=== PATIENT | female | born 1945 | race Caucasian/White ===

== ENCOUNTER → 2017-10-14 11:24 | Outpatient (CLI) | payer MEDICARE, SELFPAY ==
[2017-10-14 14:27] LABS: Absolute Lymphocyte Count 1.92 X10^3/ul (0.83-4.51); Absolute Neutrophil Count 4.6 X10^3/uL (2.0-7.7); Basophil# 0.07 X10^3/uL; Basophil% 0.9 % (0-1); Eosinophil# 0.37 X10^3/uL; Eosinophils% 4.9 % (0-5); Hematocrit 42.3 % (37-47); Hemoglobin 13.1 g/dl (12.0-15.0); Lymphocyte # 1.92 X10^3/ul (4.0); Lymphocyte % 25.6 % (19-41); Mean Corpuscular Hgb 30.6 pg (27.0-32.0); Mean Corpuscular Volume 98.8 fL (81-99); Monocyte# 0.49 X10^3/uL; Monocyte% 6.5 % (0-10); Neutrophil # 4.63 X10^3/uL (2.7-7.7); Neutrophil % 61.8 % (47-70); Platelet Count 273 K/mm3 (150-450); RBC Distribution Width SD 52.9 fl (35.1-43.9); Red Blood Count 4.28 M/mm3 (4.2-5.4); White Blood Count 7.5 K/mm3 (4.4-11.0)
[2017-10-14 14:32] LABS: POSITIVE COUNT NO; POSITIVE DIFFERENTIAL NO; POSITIVE MORPHOLOGY NO
[2017-10-14 14:33] LABS: ALB/GLOB Ratio 0.9 RATIO (0.9-2.4); AST(SGOT) 21 U/L (15-37); Alanine Aminotransfer ALT/SGPT 28 U/L (12-78); Albumin, Serum 3.6 g/dL (3.4-5.0); Alkaline Phosphatase 127 U/L (45-117); Anion Gap 8 (5-15); BUN 18 mg/dL (7-18); BUN/Creat Ratio 17.5 RATIO (10-20); Calcium,Total 9.1 mg/dL (8.5-10.1); Chloride 103 mmol/L (98-107); Cholesterol 268 mg/dL (200); Creatinine, Serum 1.03 mg/dL (0.55-1.02); EST Glomerular Filtration Rate 56 mL/min (>60); Est Glom Filt Rate - Afr Amer 68 mL/min (>60); Glucose 105 mg/dL (70-110); High Density Lipoprotein 49 mg/dL; Potassium 4.3 mmol/L (3.5-5.1); Protein, Total 7.6 g/dL (6.4-8.2); Sodium Level 139 mmol/L (136-145); Triglycerides 209 mg/dL; Very Low Density Lipoprotein 42 mg/dL (5-40)
[2017-10-14 14:50] LABS: Hemoglobin A1c 5.9 % (4.2-6.3)
[2017-10-15 09:33] LABS: Vitamin D,25 Hydroxy 17.9 ng/mL
== END ==
PROVIDERS: Family Provider Family Medicine; PCP Family Medicine; Visit Provider Family Medicine
DX: I10 Essential (primary) hypertension (principal); E55.9 Vitamin D deficiency, unspecified; R73.01 Impaired fasting glucose
CPT/HCPCS: 36415; 80053; 80061; 82306; 83036; 85025

== ENCOUNTER → 2018-01-19 13:10 | Outpatient (CLI) | payer MEDICARE, SELFPAY ==
[2018-01-19 14:15] LABS: Absolute Lymphocyte Count 1.73 X10^3/ul (0.83-4.51); Absolute Neutrophil Count 3.8 X10^3/uL (2.0-7.7); Basophil# 0.04 X10^3/uL; Basophil% 0.6 % (0-1); Eosinophil# 0.61 X10^3/uL; Eosinophils% 9.1 % (0-5); Hematocrit 41.5 % (37-47); Hemoglobin 12.7 g/dl (12.0-15.0); Lymphocyte # 1.73 X10^3/ul (4.0); Lymphocyte % 25.7 % (19-41); Mean Corp Hgb Conc 30.6 g/gl (32-36); Mean Corpuscular Hgb 30.7 pg (27.0-32.0); Mean Corpuscular Volume 100.2 fL (81-99); Mean Platelet Vol. 10.3 fl (6.2-12.0); Monocyte# 0.52 X10^3/uL; Monocyte% 7.7 % (0-10); Neutrophil # 3.81 X10^3/uL (2.7-7.7); Neutrophil % 56.6 % (47-70); POSITIVE COUNT NO; POSITIVE DIFFERENTIAL NO; POSITIVE MORPHOLOGY NO; Platelet Count 222 K/mm3 (150-450); RBC Distribution Width CV 15.1 % (11.6-14.6); RBC Distribution Width SD 54.7 fl (35.1-43.9); Red Blood Count 4.14 M/mm3 (4.2-5.4); White Blood Count 6.7 K/mm3 (4.4-11.0)
[2018-01-19 14:38] LABS: ALB/GLOB Ratio 0.9 RATIO (0.9-2.4); AST(SGOT) 16 U/L (15-37); Alanine Aminotransfer ALT/SGPT 19 U/L (13-56); Albumin, Serum 3.4 g/dL (3.2-5.0); Alkaline Phosphatase 124 U/L (45-117); Anion Gap 7 (5-15); BUN 13 mg/dL (7-18); BUN/Creat Ratio 14.9 RATIO (10-20); Calcium,Total 8.6 mg/dL (8.5-10.1); Chloride 106 mmol/L (98-107); Creatinine, Serum 0.87 mg/dL (0.55-1.02); EST Glomerular Filtration Rate 68 mL/min (>60); Est Glom Filt Rate - Afr Amer 82 mL/min (>60); Globulin 3.8 g/dL (2.2-4.2); Glucose 95 mg/dL (74-106); Potassium 4.1 mmol/L (3.5-5.1); Protein, Total 7.2 g/dL (6.4-8.2); Sodium Level 142 mmol/L (136-145)
== END ==
PROVIDERS: Family Provider Family Medicine; PCP Family Medicine; Visit Provider Internal Medicine Rheumatology
DX: M05.70 Rheumatoid arthritis with rheumatoid factor of unspecified site without organ or systems involvement (principal); Z79.899 Other long term (current) drug therapy; M21.40 Flat foot [pes planus] (acquired), unspecified foot; H35.30 Unspecified macular degeneration; I10 Essential (primary) hypertension; G47.00 Insomnia, unspecified; M51.37 Other intervertebral disc degeneration, lumbosacral region
CPT/HCPCS: 36415; 80053; 85025

== ENCOUNTER → 2018-02-11 11:57 | Outpatient (CLI) | payer MEDICARE, SELFPAY ==
[2018-02-11 14:56] LABS: Cholesterol 176 mg/dL (200); High Density Lipoprotein 50 mg/dL; Triglycerides 153 mg/dL; Very Low Density Lipoprotein 31 mg/dL (5-40)
[2018-02-11 14:59] LABS: Vitamin D,25 Hydroxy 52.2 ng/mL (29.95-100.01)
== END ==
PROVIDERS: Family Provider Family Medicine; PCP Family Medicine; Visit Provider Family Medicine
DX: E78.5 Hyperlipidemia, unspecified (principal); E55.9 Vitamin D deficiency, unspecified
CPT/HCPCS: 36415; 80061; 82306

== ENCOUNTER → 2018-04-09 14:50 | Outpatient (CLI) | payer MEDICARE, SELFPAY ==
[2018-04-09 17:47] LABS: Absolute Lymphocyte Count 1.39 X10^3/ul (0.83-4.51); Absolute Neutrophil Count 4.5 X10^3/uL (2.0-7.7); Basophil# 0.05 X10^3/uL; Basophil% 0.8 % (0-1); Eosinophil# 0.36 X10^3/uL; Eosinophils% 5.4 % (0-5); Hematocrit 40.3 % (37-47); Hemoglobin 12.7 g/dl (12.0-15.0); Lymphocyte # 1.39 X10^3/ul (4.0); Mean Corp Hgb Conc 31.5 g/gl (32-36); Mean Corpuscular Hgb 31.2 pg (27.0-32.0); Mean Platelet Vol. 10.8 fl (6.2-12.0); Monocyte# 0.33 X10^3/uL; Neutrophil # 4.48 X10^3/uL (2.7-7.7); Neutrophil % 67.5 % (47-70); Platelet Count 259 K/mm3 (150-450); RBC Distribution Width CV 14.9 % (11.6-14.6); RBC Distribution Width SD 52.1 fl (35.1-43.9); Red Blood Count 4.07 M/mm3 (4.2-5.4); White Blood Count 6.6 K/mm3 (4.4-11.0)
[2018-04-09 17:54] LABS: ALB/GLOB Ratio 0.9 RATIO (0.9-2.4); AST(SGOT) 27 U/L (15-37); Alanine Aminotransfer ALT/SGPT 29 U/L (13-56); Albumin, Serum 3.4 g/dL (3.2-5.0); Alkaline Phosphatase 122 U/L (45-117); Anion Gap 8 (5-15); BUN 17 mg/dL (7-18); BUN/Creat Ratio 16.5 RATIO (10-20); Calcium,Total 9.2 mg/dL (8.5-10.1); Chloride 105 mmol/L (98-107); Creatinine, Serum 1.03 mg/dL (0.55-1.02); EST Glomerular Filtration Rate 56 mL/min (>60); Est Glom Filt Rate - Afr Amer 68 mL/min (>60); Globulin 3.8 g/dL (2.2-4.2); Glucose 149 mg/dL (74-106); Potassium 4.1 mmol/L (3.5-5.1); Protein, Total 7.2 g/dL (6.4-8.2); Sodium Level 140 mmol/L (136-145)
[2018-04-09 17:58] LABS: POSITIVE COUNT NO; POSITIVE DIFFERENTIAL NO; POSITIVE MORPHOLOGY NO
== END ==
PROVIDERS: Family Provider Family Medicine; PCP Family Medicine; Visit Provider Internal Medicine Rheumatology
DX: M05.70 Rheumatoid arthritis with rheumatoid factor of unspecified site without organ or systems involvement (principal); Z79.899 Other long term (current) drug therapy; M21.40 Flat foot [pes planus] (acquired), unspecified foot; H35.30 Unspecified macular degeneration; I10 Essential (primary) hypertension; G47.00 Insomnia, unspecified; M51.37 Other intervertebral disc degeneration, lumbosacral region
CPT/HCPCS: 36415; 80053; 85025

== ENCOUNTER → 2018-05-25 13:22 | Outpatient (CLI) | payer MEDICARE, SELFPAY ==
[2018-05-25 15:47] LABS: Vitamin B12 287 pg/mL (211-911)
== END ==
PROVIDERS: Family Provider Family Medicine; PCP Family Medicine; Visit Provider Family Medicine
DX: R53.83 Other fatigue (principal)
CPT/HCPCS: 36415; 82607

== ENCOUNTER → 2018-06-19 13:18 | Outpatient (CLI) | payer MEDICARE, SELFPAY ==
[2018-06-19 14:15] LABS: Absolute Lymphocyte Count 1.79 X10^3/ul (0.83-4.51); Absolute Neutrophil Count 3.9 X10^3/uL (2.0-7.7); Basophil# 0.03 X10^3/uL; Basophil% 0.5 % (0-1); Eosinophil# 0.26 X10^3/uL; Eosinophils% 4.2 % (0-5); Hematocrit 39.4 % (37-47); Lymphocyte # 1.79 X10^3/ul (4.0); Lymphocyte % 29.1 % (19-41); Mean Corp Hgb Conc 30.5 g/gl (32-36); Mean Corpuscular Hgb 30.6 pg (27.0-32.0); Mean Corpuscular Volume 100.5 fL (81-99); Mean Platelet Vol. 10.1 fl (6.2-12.0); Monocyte# 0.12 X10^3/uL; Neutrophil # 3.94 X10^3/uL (2.7-7.7); Platelet Count 260 K/mm3 (150-450); RBC Distribution Width CV 15.7 % (11.6-14.6); RBC Distribution Width SD 57.1 fl (35.1-43.9); Red Blood Count 3.92 M/mm3 (4.2-5.4); White Blood Count 6.2 K/mm3 (4.4-11.0)
[2018-06-19 14:16] LABS: POSITIVE COUNT NO; POSITIVE DIFFERENTIAL NO; POSITIVE MORPHOLOGY NO
[2018-06-19 14:38] LABS: ALB/GLOB Ratio 0.8 RATIO (0.9-2.4); AST(SGOT) 28 U/L (15-37); Alanine Aminotransfer ALT/SGPT 31 U/L (13-56); Albumin, Serum 3.3 g/dL (3.2-5.0); Alkaline Phosphatase 128 U/L (45-117); Anion Gap 8 (5-15); BUN 12 mg/dL (7-18); BUN/Creat Ratio 11.7 RATIO (10-20); Calcium,Total 8.9 mg/dL (8.5-10.1); Chloride 105 mmol/L (98-107); Creatinine, Serum 1.03 mg/dL (0.55-1.02); EST Glomerular Filtration Rate 56 mL/min (>60); Est Glom Filt Rate - Afr Amer 68 mL/min (>60); Globulin 3.9 g/dL (2.2-4.2); Glucose 129 mg/dL (74-106); Protein, Total 7.2 g/dL (6.4-8.2); Sodium Level 143 mmol/L (136-145)
== END ==
PROVIDERS: Family Provider Family Medicine; PCP Family Medicine; Visit Provider Internal Medicine Rheumatology
DX: M05.70 Rheumatoid arthritis with rheumatoid factor of unspecified site without organ or systems involvement (principal); Z79.899 Other long term (current) drug therapy
CPT/HCPCS: 36415; 80053; 85025

== ENCOUNTER → 2018-09-21 14:24 | Outpatient (CLI) | payer MEDICARE, SELFPAY ==
[2018-09-21 15:37] LABS: Absolute Lymphocyte Count 1.77 X10^3/ul (0.83-4.51); Absolute Neutrophil Count 3.1 X10^3/uL (2.0-7.7); Basophil# 0.04 X10^3/uL; Basophil% 0.7 % (0-1); Eosinophil# 0.28 X10^3/uL; Eosinophils% 4.8 % (0-5); Hematocrit 39.1 % (37-47); Lymphocyte # 1.77 X10^3/ul (4.0); Lymphocyte % 30.2 % (19-41); Mean Corp Hgb Conc 30.7 g/gl (32-36); Mean Corpuscular Hgb 31.6 pg (27.0-32.0); Mean Corpuscular Volume 102.9 fL (81-99); Mean Platelet Vol. 10.1 fl (6.2-12.0); Monocyte# 0.62 X10^3/uL; Monocyte% 10.6 % (0-10); Neutrophil # 3.11 X10^3/uL (2.7-7.7); Platelet Count 239 K/mm3 (150-450); RBC Distribution Width CV 15.1 % (11.6-14.6); RBC Distribution Width SD 55.1 fl (35.1-43.9); White Blood Count 5.9 K/mm3 (4.4-11.0)
[2018-09-21 15:49] LABS: ALB/GLOB Ratio 0.9 RATIO (0.9-2.4); AST(SGOT) 13 U/L (15-37); Alanine Aminotransfer ALT/SGPT 19 U/L (13-56); Albumin, Serum 3.4 g/dL (3.2-5.0); Alkaline Phosphatase 124 U/L (45-117); BUN 20 mg/dL (7-18); BUN/Creat Ratio 21.7 RATIO (10-20); Calcium,Total 9.2 mg/dL (8.5-10.1); Chloride 102 mmol/L (98-107); Creatinine, Serum 0.92 mg/dL (0.55-1.02); EST Glomerular Filtration Rate 64 mL/min (>60); Est Glom Filt Rate - Afr Amer 77 mL/min (>60); Globulin 3.9 g/dL (2.2-4.2); Glucose 80 mg/dL (74-106); Potassium 4.6 mmol/L (3.5-5.1); Protein, Total 7.3 g/dL (6.4-8.2); Sodium Level 138 mmol/L (136-145)
[2018-09-21 15:50] LABS: Anion Gap 3 (5-15)
[2018-09-21 16:01] LABS: POSITIVE COUNT NO; POSITIVE DIFFERENTIAL NO; POSITIVE MORPHOLOGY NO
== END ==
PROVIDERS: Internal Medicine Rheumatology; Family Provider Family Medicine; PCP Family Medicine; Referring Provider Family Medicine; Visit Provider Family Medicine
DX: M05.70 Rheumatoid arthritis with rheumatoid factor of unspecified site without organ or systems involvement (principal); Z79.899 Other long term (current) drug therapy; M21.40 Flat foot [pes planus] (acquired), unspecified foot; H35.30 Unspecified macular degeneration; I10 Essential (primary) hypertension; G47.00 Insomnia, unspecified; M51.37 Other intervertebral disc degeneration, lumbosacral region; F11.90 Opioid use, unspecified, uncomplicated; Z51.81 Encounter for therapeutic drug level monitoring
CPT/HCPCS: 36415; 80053; 85025

== ENCOUNTER → 2018-12-16 13:13 | Outpatient (CLI) | payer MEDICARE, SELFPAY ==
[2018-12-16 16:13] LABS: Hemoglobin A1c 5.9 % (4.2-6.3)
[2018-12-16 16:14] LABS: AST(SGOT) 19 U/L (15-37); Alanine Aminotransfer ALT/SGPT 24 U/L (13-56); Albumin, Serum 3.7 g/dL (3.2-5.0); Alkaline Phosphatase 126 U/L (45-117); Anion Gap 7 (5-15); BUN 16 mg/dL (7-18); BUN/Creat Ratio 17.1 RATIO (10-20); Calcium,Total 9.4 mg/dL (8.5-10.1); Chloride 104 mmol/L (98-107); Creatinine, Serum 0.93 mg/dL (0.55-1.02); EST Glomerular Filtration Rate 63 mL/min (>60); Est Glom Filt Rate - Afr Amer 76 mL/min (>60); Globulin 3.8 g/dL (2.2-4.2); Glucose 100 mg/dL (74-106); Potassium 4.4 mmol/L (3.5-5.1); Protein, Total 7.5 g/dL (6.4-8.2); Sodium Level 142 mmol/L (136-145)
[2018-12-16 16:17] LABS: Absolute Lymphocyte Count 1.69 X10^3/ul (0.83-4.51); Absolute Neutrophil Count 3.2 X10^3/uL (2.0-7.7); Basophil# 0.05 X10^3/uL; Basophil% 0.9 % (0-1); Eosinophil# 0.26 X10^3/uL; Eosinophils% 4.6 % (0-5); Hematocrit 41.5 % (37-47); Hemoglobin 12.4 g/dl (12.0-15.0); Lymphocyte # 1.69 X10^3/ul (4.0); Lymphocyte % 29.8 % (19-41); Mean Corp Hgb Conc 29.9 g/gl (32-36); Mean Corpuscular Hgb 30.7 pg (27.0-32.0); Mean Corpuscular Volume 102.7 fL (81-99); Mean Platelet Vol. 10.5 fl (6.2-12.0); Monocyte# 0.42 X10^3/uL; Monocyte% 7.4 % (0-10); Neutrophil # 3.24 X10^3/uL (2.7-7.7); Neutrophil % 56.9 % (47-70); Platelet Count 265 K/mm3 (150-450); RBC Distribution Width CV 14.8 % (11.6-14.6); RBC Distribution Width SD 54.9 fl (35.1-43.9); Red Blood Count 4.04 M/mm3 (4.2-5.4); White Blood Count 5.7 K/mm3 (4.4-11.0)
[2018-12-16 16:18] LABS: Cholesterol 209 mg/dL (200); High Density Lipoprotein 53 mg/dL; Triglycerides 165 mg/dL; Very Low Density Lipoprotein 33 mg/dL (5-40)
[2018-12-16 16:45] LABS: POSITIVE COUNT NO; POSITIVE DIFFERENTIAL NO; POSITIVE MORPHOLOGY NO
== END ==
PROVIDERS: Family Provider Family Medicine; PCP Family Medicine; Referring Provider Internal Medicine Rheumatology; Visit Provider Internal Medicine Rheumatology
DX: M05.732 Rheumatoid arthritis with rheumatoid factor of left wrist without organ or systems involvement (principal); Z79.899 Other long term (current) drug therapy; M21.40 Flat foot [pes planus] (acquired), unspecified foot; H35.30 Unspecified macular degeneration; I10 Essential (primary) hypertension; G47.00 Insomnia, unspecified; M51.37 Other intervertebral disc degeneration, lumbosacral region; E78.5 Hyperlipidemia, unspecified; R73.01 Impaired fasting glucose
CPT/HCPCS: 36415; 80053; 80061; 83036; 85025

== ENCOUNTER → 2019-03-12 | Outpatient (CLI) | payer MEDICARE, SELFPAY ==
[2019-03-12 17:36] LABS: Absolute Lymphocyte Count 2.48 X10^3/ul (0.83-4.51); Absolute Neutrophil Count 5.6 X10^3/uL (2.0-7.7); Basophil# 0.08 X10^3/uL; Basophil% 0.9 % (0-1); Eosinophils% 1.1 % (0-5); Hematocrit 38.3 % (37-47); Hemoglobin 11.9 g/dl (12.0-15.0); Lymphocyte # 2.48 X10^3/ul (4.0); Lymphocyte % 27.8 % (19-41); Mean Corp Hgb Conc 31.1 g/gl (32-36); Mean Corpuscular Hgb 31.3 pg (27.0-32.0); Mean Corpuscular Volume 100.8 fL (81-99); Mean Platelet Vol. 10.7 fl (6.2-12.0); Monocyte# 0.63 X10^3/uL; Monocyte% 7.1 % (0-10); Neutrophil # 5.61 X10^3/uL (2.7-7.7); Neutrophil % 62.9 % (47-70); Platelet Count 244 K/mm3 (150-450); RBC Distribution Width CV 14.4 % (11.6-14.6); RBC Distribution Width SD 51.8 fl (35.1-43.9); White Blood Count 8.9 K/mm3 (4.4-11.0)
[2019-03-12 17:45] LABS: ALB/GLOB Ratio 0.9 RATIO (0.9-2.4); AST(SGOT) 15 U/L (15-37); Alanine Aminotransfer ALT/SGPT 20 U/L (13-56); Albumin, Serum 3.6 g/dL (3.2-5.0); Alkaline Phosphatase 122 U/L (45-117); Anion Gap 6 (5-15); BUN 13 mg/dL (7-18); Chloride 107 mmol/L (98-107); Creatinine, Serum 0.87 mg/dL (0.55-1.02); EST Glomerular Filtration Rate 68 mL/min (>60); Est Glom Filt Rate - Afr Amer 82 mL/min (>60); Globulin 3.8 g/dL (2.2-4.2); Glucose 93 mg/dL (74-106); Potassium 3.7 mmol/L (3.5-5.1); Protein, Total 7.4 g/dL (6.4-8.2); Sodium Level 142 mmol/L (136-145)
[2019-03-12 17:53] LABS: POSITIVE COUNT NO; POSITIVE DIFFERENTIAL NO; POSITIVE MORPHOLOGY NO
== END | disposition home or self-care (01) ==
LOC: MTLAB 15:26
PROVIDERS: Family Provider Family Medicine; PCP Family Medicine; Referring Provider Internal Medicine Rheumatology; Visit Provider Internal Medicine Rheumatology
DX: M05.732 Rheumatoid arthritis with rheumatoid factor of left wrist without organ or systems involvement (principal); Z79.899 Other long term (current) drug therapy; M18.12 Unilateral primary osteoarthritis of first carpometacarpal joint, left hand; M21.40 Flat foot [pes planus] (acquired), unspecified foot; H35.30 Unspecified macular degeneration; I10 Essential (primary) hypertension; G47.00 Insomnia, unspecified; M51.37 Other intervertebral disc degeneration, lumbosacral region
CPT/HCPCS: 36415; 80053; 85025

== ENCOUNTER → 2019-06-14 | Outpatient (CLI) | payer MEDICARE, SELFPAY ==
[2019-06-14 15:15] LABS: Absolute Lymphocyte Count 1.96 X10^3/uL (0.83-4.51); Absolute Neutrophil Count 3.8 X10^3/uL (2.0-7.7); Basophil# 0.06 X10^3/uL; Basophil% 0.9 % (0-1); Eosinophil# 0.27 X10^3/uL; Hematocrit 39.5 % (37-47); Hemoglobin 12.1 g/dL (12.0-15.0); Lymphocyte # 1.96 X10^3/ul (4.0); Lymphocyte % 29.3 % (19-41); Mean Corp Hgb Conc 30.6 g/dL (32-36); Mean Corpuscular Hgb 30.8 pg (27.0-32.0); Mean Corpuscular Volume 100.5 fL (81-99); Mean Platelet Vol. 9.9 fl (6.2-12.0); Monocyte# 0.57 X10^3/uL; Monocyte% 8.5 % (0-10); NRBC Flagged by Analyzer 0 % (0-5); Neutrophil # 3.78 X10^3/uL (2.7-7.7); Neutrophil % 56.4 % (47-70); Platelet Count 254 K/mm3 (150-450); RBC Distribution Width CV 15.5 % (11.6-14.6); Red Blood Count 3.93 M/mm3 (4.2-5.4); White Blood Count 6.7 K/mm3 (4.4-11.0)
[2019-06-14 15:27] LABS: ALB/GLOB Ratio 0.9 RATIO (0.9-2.4); AST(SGOT) 14 U/L (15-37); Alanine Aminotransfer ALT/SGPT 21 U/L (13-56); Albumin, Serum 3.5 g/dL (3.2-5.0); Alkaline Phosphatase 121 U/L (45-117); Anion Gap 8 (5-15); BUN 14 mg/dL (7-18); BUN/Creat Ratio 14.1 RATIO (10-20); Chloride 105 mmol/L (98-107); Creatinine, Serum 0.99 mg/dL (0.55-1.02); EST Glomerular Filtration Rate 58 mL/min (>60); Est Glom Filt Rate - Afr Amer 70 mL/min (>60); Globulin 3.8 g/dL (2.2-4.2); Glucose 103 mg/dL (74-106); Potassium 4.2 mmol/L (3.5-5.1); Protein, Total 7.3 g/dL (6.4-8.2); Sodium Level 141 mmol/L (136-145)
== END | disposition home or self-care (01) ==
LOC: MTLAB 13:23
PROVIDERS: Family Provider Family Medicine; PCP Family Medicine; Referring Provider Internal Medicine Rheumatology; Visit Provider Internal Medicine Rheumatology
DX: M05.70 Rheumatoid arthritis with rheumatoid factor of unspecified site without organ or systems involvement (principal); Z79.899 Other long term (current) drug therapy; M18.12 Unilateral primary osteoarthritis of first carpometacarpal joint, left hand; M21.40 Flat foot [pes planus] (acquired), unspecified foot; H35.30 Unspecified macular degeneration; I10 Essential (primary) hypertension; G47.00 Insomnia, unspecified; M51.37 Other intervertebral disc degeneration, lumbosacral region
CPT/HCPCS: 36415; 80053; 85025

== ENCOUNTER 2019-07-07 21:03 | Inpatient (IN) | payer MEDICARE, SELFPAY ==
[2019-07-07 21:04] VITALS: BP 146/92; PULSE 111; RESP 16; TEMP 36.8; O2SAT 96; BMI 46.4
[2019-07-07 21:36] LABS: Absolute Neutrophil Count 11.7 X10^3/uL (2.0-7.7); Basophil# 0.05 X10^3/uL; Basophil% 0.3 % (0-1); Eosinophil# 0.09 X10^3/uL; Eosinophils% 0.6 % (0-5); Hematocrit 20.8 % (37-47); Hemoglobin 6.6 g/dL (12.0-15.0); Lymphocyte % 13.5 % (19-41); Mean Corp Hgb Conc 31.7 g/dL (32-36); Mean Corpuscular Hgb 32.7 pg (27.0-32.0); Mean Platelet Vol. 10.7 fl (6.2-12.0); Monocyte# 0.76 X10^3/uL; Monocyte% 5.1 % (0-10); NRBC Flagged by Analyzer 0.2 % (0-5); Neutrophil # 11.71 X10^3/uL (2.7-7.7); Neutrophil % 79.3 % (47-70); Platelet Count 240 K/mm3 (150-450); RBC Distribution Width CV 16.2 % (11.6-14.6); RBC Distribution Width SD 59.8 fl (35.1-43.9); Red Blood Count 2.02 M/mm3 (4.2-5.4); White Blood Count 14.8 K/mm3 (4.4-11.0)
[2019-07-07] MEDS: 0.9% Normal Saline 1,000 ML 1000 ML IV (21:39)
[2019-07-07 21:42] LABS: AST(SGOT) 14 U/L (15-37); Alanine Aminotransfer ALT/SGPT 17 U/L (13-56); Albumin, Serum 3.2 g/dL (3.2-5.0); Alkaline Phosphatase 80 U/L (45-117); Anion Gap 8 (5-15); BUN 46 mg/dL (7-18); BUN/Creat Ratio 41.4 RATIO (10-20); Calcium,Total 8.8 mg/dL (8.5-10.1); Chloride 105 mmol/L (98-107); Creatinine, Serum 1.11 mg/dL (0.55-1.02); EST Glomerular Filtration Rate 51 mL/min (>60); Est Glom Filt Rate - Afr Amer 62 mL/min (>60); Estimated Creatinine Clearance 38.98 ml/min; Globulin 3.3 g/dL (2.2-4.2); Glucose 158 mg/dL (74-106); International Normalized Ratio 1.2; Lipase 114 U/L (73-393); Potassium 3.5 mmol/L (3.5-5.1); Protein, Total 6.5 g/dL (6.4-8.2); Prothrombin Time (Protime)PT. 14.5 SECONDS (11.7-14.9); Sodium Level 139 mmol/L (136-145)
[2019-07-07 21:43] LABS: Partial Thromboplast Time 24.8 Seconds (24.1-36.2)
--- NOTE | 2019-07-07 22:38 | PCM.HP.STD ---
Problem List (1) GI bleed Status: Acute Qualifiers: GI bleed type/associated pathology: unspecified gastrointestinal hemorrhage type Qualified Code(s): K92.2 - Gastrointestinal hemorrhage, unspecified (2) Acute blood loss anemia Status: Acute (3) Morbid obesity Status: Chronic (4) HLD (hyperlipidemia) Status: Chronic Qualifiers: Hyperlipidemia type: unspecified Qualified Code(s): E78.5 - Hyperlipidemia, unspecified (5) Asthma Status: Chronic Qualifiers: Asthma severity: unspecified severity Asthma persistence: unspecified Asthma complication type: unspecified Qualified Code(s): J45.909 - Unspecified asthma, uncomplicated (6) Anxiety and depression Status: Chronic (7) Chronic pain syndrome Status: Chronic (8) Hypertension Status: Chronic Qualifiers: Hypertension type: essential hypertension Qualified Code(s): I10 - Essential (primary) hypertension (9) History of rheumatoid arthritis Status: Chronic History of Present Illness Date of Admission: 07/07/19 Chief Complaint: Diarrhea, black stools, lightheaded, dizziness, N/V The patient is a 73 y/o F w/ PMHx: Morbid Obesity, HTN, HLD, Asthma, Anxiety and Depression, Chronic pain syndrome, Rheumatoid Arthritis who presents to the [facility] ED on 07/07/19 with history of ongoing dark black liquid stools with at least 2 times daily with associated abdominal cramping x1 week with episode of nausea and emesis on day of ED presentation only with ongoing progressively worsening weakness, fatigue, dizziness as well as lightheadedness. Patient denies take any routine NSAID, aspirin therapies. Patient denies ever having prior endoscopy. Work-up in the ED included T 98.3, heart rate 111, BP 146/92, respiratory rate 16, 96% on room air, CBC with WBC 14.8, hemoglobin 6.6 with last noted 12.1 on 06/14/19, platelet 240 with left shift, unremarkable coags, CMP with BUN/creatinine 46/1.11, glucose 158, lipase 114, type and cross performed with 1 unit ordered per ED physician. In the ED patient ministered normal saline, pantoprazole. General surgeon, Dr. Matthews consulted per ED and will evaluate. Past Medical History Past Medical History (Chronic Problems): Chronic Problems Morbid obesity (Chronic) HLD (hyperlipidemia) (Chronic) Asthma (Chronic) Anxiety and depression (Chronic) Chronic pain syndrome (Chronic) Morbid obesity with BMI of 40.0-44.9, adult (Chronic) Hyperkalemia (Chronic) Hypertension (Chronic) History of rheumatoid arthritis (Chronic) Allergies adhesive Allergy (Verified 11/17/17 17:06) Other amoxicillin trihydrate [From Augmentin] Allergy (Verified 11/17/17 17:06) Unknown latex Allergy (Verified 11/17/17 17:06) Unknown Penicillins Allergy (Verified 11/17/17 17:06) Unknown potassium clavulanate [From Augmentin] Allergy (Verified 11/17/17 17:06) Unknown tetracycline Allergy (Verified 11/17/17 17:06) Unknown Home Medications: Ambulatory Orders Medication Instructions Recorded Albuterol IH (ProAir) [Proair Hfa] 1 - 2 puff INHALATION Q6H PRN PRN 03/15/15 Hydrochlorothiazide [Hctz] 12.5 mg PO DAILY 03/15/15 Methotrexate 20 mg PO QWEEK 03/15/15 Clonazepam [Klonopin] 1 mg PO HS #30 tablet 03/29/15 Folic Acid 1 mg PO DAILY@0800 #0 tablet 03/29/15 Losartan Potassium [Cozaar] 50 mg PO DAILY #30 tablet 03/29/15 Oxycodone HCl/Acetaminophen 1 tablet PO TID 11/17/17 [Percocet 5/325] Atorvastatin Calcium [Lipitor] 20 mg PO DAILY 07/07/19 Magnesium 400 mg PO DAILY 07/07/19 Oxycodone HCl/Acetaminophen 1 tab PO TID PRN 07/07/19 [Percocet 7.5-325 mg Tablet] Prednisone 10 mg PO PRN PRN 07/07/19 Sulfasalazine 1,000 mg PO BID 07/07/19 Venlafaxine HCl [Venlafaxine HCl 150 mg PO DAILY 07/07/19 ER] Vit A/Vit C/Vit E/Zinc/Copper 2 ea PO DAILY 07/07/19 [Preservision Areds Tablet] Surgical History: appendectomy, dilatation and curettage, - - Lumbar back surgery with hardware, tonsillectomy, appendectomy, bilateral total knee replacement, bilateral total hip replacement, bilateral total shoulder replacement, right hand surgery specifically with replaced knuckles, cataract surgery. 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 Smoking Status: Former smoker - Patient quit cigarette tobacco usage 30 years prior. Tobacco Use: Non-smoker Alcohol: None Drugs: None - *Family History Maternal History Items: - - Patient notes a maternal family history of hypertension and diabetes. Paternal History Items: - - Patient notes a paternal family history of prostate cancer. Review of Systems Constitutional: Reports: Anorexia, Malaise, Weakness, Fatigue. Denies: Chills, Fever, Weight Change HEENT: Denies: Head Aches, Sinus Congestion, Sinus Drainage Cardiovascular: Reports: Light Headedness. Denies: Chest Pain, Palpitations Respiratory: Denies: Cough, Shortness of breath at rest, Sputum production Gastrointestinal: Reports: Abdominal Pain, Diarrhea, Nausea, Melena, Vomiting Genitourinary: Denies: Dysuria Musculoskeletal: Reports: Joint Pain. Denies: Joint Tenderness Skin: Denies: Rash, Wounds Neurological: Denies: Numbness, Tingling, Focal weakness Psychiatric: Reports: Anxiety, Depression. Denies: Homicidal Ideations, Suicidal Ideations Hematologic/ Lymphatic: Reports: Anemia. Denies: Easy Bruising, Easy Bleeding VTE Information - Inpt Only VTE Present on Admission: No VTE Mechan Device Prophylaxis: SCD's VTE Pharm Prophylaxis ordered?: No Reason prophylaxis not ordered:: Medical Contraindication Patient Problems: Active and Suspected Problems GI bleed (Acute) Acute blood loss anemia (Acute) Subjective: Seated upright in ED bed, fatigued appearance, pale pallor, no acute distress currently. Objective: Physical Examination: General: awake, alert, oriented x 3 and cooperative, seated upright in the ED bed, fatigued appearance. Skin: Pale color, turgor, no icterus, cyanosis. HEENT: AT/NC, EOMI, PERRLA, moderately dry MM, no carotid bruits or JVD noted; however, thickened neck makes examination difficult. Lungs: CTA bilaterally, moderate effort, moderate decrease BL bases, no rales, ronchi or wheezing. Heart: Mildly tachycardic with regular rhythm; no gallop, rub audible. Abdomen: soft, morbidly obese, NTTP, ND, hyperactive BS, no HSM; however, habitus makes examination difficult. Extremities: no cyanosis, clubbing, or edema. Neurological: patient awake, alert, oriented x 3; cognitive function intact; pupils equally reactive to light and accomodation; cranial nerves II-XII grossly normal, moving all 4 extremities, no focal deficits, strength moderately to severely global decrease secondary to acute presentation. Psychiatric: affect appears fatigued, no acute evidence of depressive or anxiety feelings. - Physical Exam Vital Signs Temp Pulse Resp BP Pulse Ox 98.3 F 111 H 16 146/92 H 96 07/07/19 21:04 07/07/19 21:04 07/07/19 21:04 07/07/19 21:04 07/07/19 21:04 Oxygen Delivery Method Room Air Weight: 270 lb 11.642 oz Body Mass Index (BMI) 46.4 Laboratory Tests Past 24 Hrs 07/07/19 07/07/19 07/07/19 21:10 21:10 21:10 WBC 14.8 H RBC 2.02 L Hgb 6.6 L Hct 20.8 L MCV 103.0 H MCH 32.7 H MCHC 31.7 L RDW Std Deviation 59.8 H RDW Coeff of Espinoza 16.2 H Plt Count 240 MPV 10.7 Immature Gran % (Auto) 1.200 H Neut % (Auto) 79.3 H Lymph % (Auto) 13.5 L [place] % (Auto) 5.1 Eos % (Auto) 0.6 Baso % (Auto) 0.3 Absolute Neuts (auto) 11.7 H Absolute Lymphs (auto) 2.00 Nucleated RBC % 0.2 PT 14.5 INR 1.2 APTT 24.8 Sodium 139 Potassium 3.5 Chloride 105 Carbon Dioxide 26.0 Anion Gap 8 BUN 46 H Creatinine 1.11 H Estim Creat Clear Calc 38.98 Est GFR (MDRD) Af Amer 62 Est GFR (MDRD) Non-Af 51 L BUN/Creatinine Ratio 41.4 H Glucose 158 H Calcium 8.8 Total Bilirubin 0.20 AST 14 L ALT 17 Alkaline Phosphatase 80 Total Protein 6.5 Albumin 3.2 Globulin 3.3 Albumin/Globulin Ratio 1.0 Lipase 114 Blood Type Antibody Screen Crossmatch 07/07/19 07/07/19 21:10 21:10 WBC RBC Hgb Hct MCV MCH MCHC RDW Std Deviation RDW Coeff of Espinoza Plt Count MPV Immature Gran % (Auto) Neut % (Auto) Lymph % (Auto) [place] % (Auto) Eos % (Auto) Baso % (Auto) Absolute Neuts (auto) Absolute Lymphs (auto) Nucleated RBC % PT INR APTT Sodium Potassium Chloride Carbon Dioxide Anion Gap BUN Creatinine Estim Creat Clear Calc Est GFR (MDRD) Af Amer Est GFR (MDRD) Non-Af BUN/Creatinine Ratio Glucose Calcium Total Bilirubin AST ALT Alkaline Phosphatase Total Protein Albumin Globulin Albumin/Globulin Ratio Lipase Blood Type A POSITIVE Antibody Screen NEGATIVE Crossmatch See Detail Assessment/Plan All Active Problems GI bleed (Acute) Acute blood loss anemia (Acute) 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 1. Acute GI Bleed w/ resultant Acute Blood Loss Anemia: Work-up in the ED included T 98.3, heart rate 111, BP 146/92, respiratory rate 16, 96% on room air, CBC with WBC 14.8, hemoglobin 6.6 with last noted 12.1 on 06/14/19, platelet 240 with left shift, unremarkable coags, CMP with BUN/creatinine 46/1.11, glucose 158, lipase 114, type and cross performed with 1 unit ordered per ED physician. Will admit to PCU, maintain on monitor, continue IVFs, continue planned 2 u PRBC administration with continued serial H+H, maintain on IV PPI. General surgery consulted, Dr. Matthews. 2. Hyperglycemia: Glucose upon admission 158, will continue to monitor, defer hemoglobin A1c assessment given acute presentation with anemia as noted #1. 3. Anxiety and depression: Continue home Klonopin and venlafaxine. 4. Chronic pain syndrome: We will continue patient home chronic narcotic therapy. 5. Hypertension: Continue home regimen including Cozaar with strict hold parameters, holding hydrochlorothiazide given recent diarrhea and acute presentation, PRN hydralazine. 6. Hyperlipidemia: Continue home statin regimen. 7. Morbid Obesity: Weight loss and lifestyle changes encouraged, nutrition consulted. 8. Chronic asthma: Notes that she had been more symptomatic when she was still smoking, quit 30 years prior, PRN albuterol, HOB, IS parameters. 9. Rheumatoid arthritis: Maintained outpatient on methotrexate, sulfasalazine and prednisone as needed only. 10. DVT prophylaxis: SCDs, defer any chemoprophylaxis given acute presentation #1. 11. CODE status: Patient does have living will, healthcare power of knitter wire mesh needs to be set up and this was discussed at length and patient agrees. Discussed CODE status at length including difference between FULL code, DNR-CCA and DNR-CC status. Following discussions about the differences in these status, requested attenuation of DNR-CCA, no intubation status. Advanced Care Planning Face to Face Time: 16 minutes. Code Visit Inpatient E&M: 36525 Init Hosp L3 Procedures: 84381 Advncd Care Plan 30 Min
--- NOTE | 2019-07-07 22:53 | ED.VISSUMM ---
- ER Visit Summary Date of Service: 07/07/19 Chief Complaint: Diarrhea, black stools History of Present Illness: The patient is a 73 F who presents with diarrhea and black stools. This is been ongoing for a week. She states that when she has stools it is dark and bloody. She feels dizzy and faint. She did vomit black tonight. She has abdominal pain which is cramping, only when she has bowel movements. Denies any fevers. She is never had a colonoscopy. She has not been on any blood thinners. Physical Examination: Vital signs reviewed. HEENT exam unremarkable. Heart is tachycardic and regular rhythm without murmurs. Lungs are clear to auscultation. Abdomen is soft and nontender. Extremities reveal no edema. Skin exam normal. Neurologic exam normal. Test Results: Hemoglobin is 6.6, down from 12 earlier this year. White blood cell count 14.8. Glucose 158, creatinine 1.11 Emergency Department Course and Treatment: The patient source of her anemia is likely her GI bleed. I will transfuse her 1 unit of blood due to her hemoglobin below 7. Patient was given a dose of Protonix. I discussed with Dr. Matthews who will see the patient in consult. Patient was discussed with the hospitalist for admission. Treatment Plan: [] Disposition: Admit Impression: GI bleed, anemia requiring transfusion This note was generated with [employer] dictation software. It may contain incorrect words, spelling, and punctuation that were not noted in review of the chart prior to signing ED Disposition - Plan for ED Patient: Referrals: Marciano Anaya DO [Primary Care Provider] -
[2019-07-07 23:09] VITALS: BP 146/60; PULSE 106; RESP 25; O2SAT 98
[2019-07-07 23:28] VITALS: BP 154/77; PULSE 108; RESP 16; TEMP 37.1; O2SAT 95
[2019-07-07 23:36] VITALS: BMI 45.6
[2019-07-07 23:43] VITALS: BP 154/77; PULSE 104; RESP 16; TEMP 37.2; O2SAT 96
[2019-07-08] VITALS (19 sets, daily range): BP systolic 120–160; BP diastolic 51–83; PULSE 83–106; RESP 16–18; TEMP 36.7–36.8; O2SAT 93–97; BMI 45.6
[2019-07-08] MEDS: 0.9% NaCl Peripheral Flush Adult/Peds IV ×2 (05:44→23:51)
[2019-07-08] MEDS: 0.9% Normal Saline 1,000 ML 100 ML IV ×2 (05:44→16:05)
[2019-07-08 07:26] LABS: Hemoglobin 7.4 g/dL (12.0-15.0)
[2019-07-08 07:59] LABS: Anion Gap 8 (5-15); BUN 34 mg/dL (7-18); Calcium,Total 8.2 mg/dL (8.5-10.1); Chloride 107 mmol/L (98-107); Creatinine, Serum 0.85 mg/dL (0.55-1.02); EST Glomerular Filtration Rate 70 mL/min (>60); Est Glom Filt Rate - Afr Amer 84 mL/min (>60); Glucose 119 mg/dL (74-106); Potassium 3.6 mmol/L (3.5-5.1); Sodium Level 141 mmol/L (136-145)
--- NOTE | 2019-07-08 09:44 | CASEMGMT ---
Patient has a Healthcare Living Will on file at [facility]. She does not have a Healthcare POA. Arlin WALKER MSW
--- NOTE | 2019-07-08 10:17 | PCM.PROGNOTE ---
<Ananya Mar - Last Filed: 07/08/19 10:27> Patient Problems: Active and Suspected Problems GI bleed (Acute) Acute blood loss anemia (Acute) Subjective: Patient seen and examined. Denies further dark stool. Denies nausea, vomiting. Denies abdominal pain. States her dizziness, lightheadedness is improved since being admitted. - Physical Exam General: Alert, Oriented x3, Cooperative HEENT: Atraumatic, PERRLA, EOMI, Normocephalic Neck: Supple, No JVD, Negative Carotid Bruits Lungs: Clear to auscultation, Normal air movement Cardiovascular: Regular rate, Regular Rhythm, Normal S1, Normal S2, No murmurs Abdomen: Bowel Sounds Present, Soft, Non Tender, Non-Distended, Obese Extremities: No clubbing, No cyanosis, No edema, Capillary Refill Less than 3 Seconds Skin: No rashes, No breakdown Musculoskeletal: No Tenderness to Palpation of Joints or Extremities Neurological: Cranial nerves II-XII grossly intact, Neuro grossly intact Psych/Mental Status: Normal Affect, Appropriate Vital Signs Temp Pulse Resp BP Pulse Ox 98.1 F 105 H 16 143/61 H 95 07/08/19 05:30 07/08/19 07:02 07/08/19 05:30 07/08/19 05:30 07/08/19 07:10 Oxygen Delivery Method Room Air Weight: 265 lb 10.512 oz Body Mass Index (BMI) 45.6 Intake and Output for Last 24 Hours 07/06/19 07/07/19 07/08/19 23:59 23:59 23:59 Intake Total 1035 / 1035 907.5 / 907.5 Balance 1035 / 1035 907.5 / 907.5 Laboratory Tests Past 24 Hrs 07/07/19 07/07/19 07/07/19 21:10 21:10 21:10 WBC 14.8 H RBC 2.02 L Hgb 6.6 L Hct 20.8 L MCV 103.0 H MCH 32.7 H MCHC 31.7 L RDW Std Deviation 59.8 H RDW Coeff of Espinoza 16.2 H Plt Count 240 MPV 10.7 Immature Gran % (Auto) 1.200 H Neut % (Auto) 79.3 H Lymph % (Auto) 13.5 L [place] % (Auto) 5.1 Eos % (Auto) 0.6 Baso % (Auto) 0.3 Absolute Neuts (auto) 11.7 H Absolute Lymphs (auto) 2.00 Nucleated RBC % 0.2 PT 14.5 INR 1.2 APTT 24.8 Sodium 139 Potassium 3.5 Chloride 105 Carbon Dioxide 26.0 Anion Gap 8 BUN 46 H Creatinine 1.11 H Estim Creat Clear Calc 38.98 Est GFR (MDRD) Af Amer 62 Est GFR (MDRD) Non-Af 51 L BUN/Creatinine Ratio 41.4 H Glucose 158 H Calcium 8.8 Total Bilirubin 0.20 AST 14 L ALT 17 Alkaline Phosphatase 80 Total Protein 6.5 Albumin 3.2 Globulin 3.3 Albumin/Globulin Ratio 1.0 Lipase 114 Blood Type Antibody Screen Crossmatch 07/07/19 07/07/19 07/07/19 21:10 21:10 21:10 WBC RBC Hgb Hct MCV MCH MCHC RDW Std Deviation RDW Coeff of Espinoza Plt Count MPV Immature Gran % (Auto) Neut % (Auto) Lymph % (Auto) [place] % (Auto) Eos % (Auto) Baso % (Auto) Absolute Neuts (auto) Absolute Lymphs (auto) Nucleated RBC % PT INR APTT Sodium Potassium Chloride Carbon Dioxide Anion Gap BUN Creatinine Estim Creat Clear Calc Est GFR (MDRD) Af Amer Est GFR (MDRD) Non-Af BUN/Creatinine Ratio Glucose Calcium Total Bilirubin AST ALT Alkaline Phosphatase Total Protein Albumin Globulin Albumin/Globulin Ratio Lipase Blood Type A POSITIVE Antibody Screen NEGATIVE Crossmatch See Detail See Detail 07/08/19 07/08/19 07:10 07:10 WBC RBC Hgb 7.4 L Hct 23.0 L MCV MCH MCHC RDW Std Deviation RDW Coeff of Espinoza Plt Count MPV Immature Gran % (Auto) Neut % (Auto) Lymph % (Auto) [place] % (Auto) Eos % (Auto) Baso % (Auto) Absolute Neuts (auto) Absolute Lymphs (auto) Nucleated RBC % PT INR APTT Sodium 141 Potassium 3.6 Chloride 107 Carbon Dioxide 26.0 Anion Gap 8 BUN 34 H Creatinine 0.85 Estim Creat Clear Calc 50.90 Est GFR (MDRD) Af Amer 84 Est GFR (MDRD) Non-Af 70 BUN/Creatinine Ratio 40.0 H Glucose 119 H Calcium 8.2 L Total Bilirubin AST ALT Alkaline Phosphatase Total Protein Albumin Globulin Albumin/Globulin Ratio Lipase Blood Type Antibody Screen Crossmatch Medical Necessity - Tobacco Use Smoking Status: Former smoker - Patient quit cigarette tobacco usage 30 years prior. 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 Acute GI bleed with associated acute symptomatic blood loss anemia-hemoglobin 6.6 on admission. Status post 2 units PRBC. Serial H&H. Dr. Matthews consulted. Clear liquid diet. IV PPI. Plan for upper and lower scope tomorrow per surgery. Patient denies history of GI bleed, denies NSAID use. 2. Chronic kidney disease stage II-at baseline, trend BMP. 3. Anxiety/Depression-continue home Klonopin, venlafaxine regimen. 4. Chronic pain syndrome-continue home narcotic regimen. 5. Hypertension-stable, continue home Cozaar regimen. HCTZ on hold. 6. Hyperlipidemia-continue home statin regimen. 7. Morbid obesity-diet and lifestyle modifications encouraged. Nutrition consult. 8. Chronic asthma-as needed albuterol aerosol. 9. Rheumatoid arthritis-continue home methotrexate, sulfasalazine and PRN prednisone. DVT prophylaxis-SCDs This patient was seen by FAUSTO Lee under the supervision of Dr. Interiano. <Bro Interiano - Last Filed: 07/08/19 13:02> - Physical Exam Vital Signs Temp Pulse Resp BP Pulse Ox 98.1 F 105 H 16 143/61 H 95 07/08/19 05:30 07/08/19 07:02 07/08/19 05:30 07/08/19 05:30 07/08/19 07:10 Oxygen Delivery Method Room Air Weight: 120.5 kg Body Mass Index (BMI) 45.6 Intake and Output for Last 24 Hours 07/06/19 07/07/19 07/08/19 23:59 23:59 23:59 Intake Total 1035 / 1035 1535.83 / 1535.83 Balance 1035 / 1035 1535.83 / 1535.83 Laboratory Tests Past 24 Hrs 07/07/19 07/07/19 07/07/19 21:10 21:10 21:10 WBC 14.8 H RBC 2.02 L Hgb 6.6 L Hct 20.8 L MCV 103.0 H MCH 32.7 H MCHC 31.7 L RDW Std Deviation 59.8 H RDW Coeff of Espinoza 16.2 H Plt Count 240 MPV 10.7 Immature Gran % (Auto) 1.200 H Neut % (Auto) 79.3 H Lymph % (Auto) 13.5 L [place] % (Auto) 5.1 Eos % (Auto) 0.6 Baso % (Auto) 0.3 Absolute Neuts (auto) 11.7 H Absolute Lymphs (auto) 2.00 Nucleated RBC % 0.2 PT 14.5 INR 1.2 APTT 24.8 Sodium 139 Potassium 3.5 Chloride 105 Carbon Dioxide 26.0 Anion Gap 8 BUN 46 H Creatinine 1.11 H Estim Creat Clear Calc 38.98 Est GFR (MDRD) Af Amer 62 Est GFR (MDRD) Non-Af 51 L BUN/Creatinine Ratio 41.4 H Glucose 158 H Calcium 8.8 Total Bilirubin 0.20 AST 14 L ALT 17 Alkaline Phosphatase 80 Total Protein 6.5 Albumin 3.2 Globulin 3.3 Albumin/Globulin Ratio 1.0 Lipase 114 Blood Type Antibody Screen Crossmatch 07/07/19 07/07/19 07/07/19 21:10 21:10 21:10 WBC RBC Hgb Hct MCV MCH MCHC RDW Std Deviation RDW Coeff of Espinoza Plt Count MPV Immature Gran % (Auto) Neut % (Auto) Lymph % (Auto) [place] % (Auto) Eos % (Auto) Baso % (Auto) Absolute Neuts (auto) Absolute Lymphs (auto) Nucleated RBC % PT INR APTT Sodium Potassium Chloride Carbon Dioxide Anion Gap BUN Creatinine Estim Creat Clear Calc Est GFR (MDRD) Af Amer Est GFR (MDRD) Non-Af BUN/Creatinine Ratio Glucose Calcium Total Bilirubin AST ALT Alkaline Phosphatase Total Protein Albumin Globulin Albumin/Globulin Ratio Lipase Blood Type A POSITIVE Antibody Screen NEGATIVE Crossmatch See Detail See Detail 07/08/19 07/08/19 07/08/19 07:10 07:10 12:23 WBC RBC Hgb 7.4 L 7.4 L Hct 23.0 L 22.8 L MCV MCH MCHC RDW Std Deviation RDW Coeff of Espinoza Plt Count MPV Immature Gran % (Auto) Neut % (Auto) Lymph % (Auto) [place] % (Auto) Eos % (Auto) Baso % (Auto) Absolute Neuts (auto) Absolute Lymphs (auto) Nucleated RBC % PT INR APTT Sodium 141 Potassium 3.6 Chloride 107 Carbon Dioxide 26.0 Anion Gap 8 BUN 34 H Creatinine 0.85 Estim Creat Clear Calc 50.90 Est GFR (MDRD) Af Amer 84 Est GFR (MDRD) Non-Af 70 BUN/Creatinine Ratio 40.0 H Glucose 119 H Calcium 8.2 L Total Bilirubin AST ALT Alkaline Phosphatase Total Protein Albumin Globulin Albumin/Globulin Ratio Lipase Blood Type Antibody Screen Crossmatch Assessment/Plan This patient was seen in conjunction with FAUSTO Lee . I have independently interviewed and examined the patient and reviewed pertinent historical, laboratory, and other data. Please refer to FAUSTO Lee note for details of this patient's presentation, findings, and recommendations. I have reviewed FAUSTO Lee note and concur with documented findings. In brief, patient is a 73-year-old female admitted with melena. Patient was found to have symptomatic anemia with hemoglobin of 6.6 on admission she was transfused with 2 unit PRBC admitted to a monitored bed with consultation placed to general surgery with plans for patient undergo endoscopic evaluation on 07/09/2019 Physical Examination: GENERAL: cooperative HEENT: Atraumatic; moist oral mucosa EYES; Anicteric, Normal Conjunctiva NECK; supple, normal thyroid, RESPIRATORY: Diminished to auscultation CARDIOVASCULAR: Regular S1 S2, GI: soft, non-tender, normoactive bowel sounds, : No Renal angle tenderness; EXTREMITIES: No edema, no clubbing, NEURO: Awake; no lateralizing signs. SKIN: No Rash PSYCH; Normal affect Assessment: 1. Acute blood loss anemia suspected to be secondary to upper GI bleed 2. Dyslipidemia 3. Essential hypertension 4. Rheumatoid arthritis 5. Mild intermittent asthma 6. Acute renal insufficiency resolved with IV hydration 7. Chronic pain syndrome 8. Obesity with BMI of 45.6 9. Depression with anxiety Recommendations: 1. I have discussed the results of my overview and impressions with the patient 2. Options for management were reviewed Code Visit Inpatient E&M: 89445 Subs Hosp L3
--- NOTE | 2019-07-08 10:19 | CON.PCM_ITS ---
- Consult Date of Consult: 07/08/19 - Reason for Consult Chief Complaint: anemia History of Present Illness: 73 y/o WF presents with anemia. Has noted diarrhea for several days and then noted black tarry stools. Had lower abdominal crampy pain. Also noted epigastric abdominal pain after eating. Presented to ED [facility] with Hgb of 6.6 and mildly elevated WBC. Denies previous endoscopic evaluation. No colon cancer known in family. Has history of PUD, but diagnosed presumptively. Denies hematemesis. Past Medical History: rheumatoid arthritis morbid obesity asthma anxiety/depressive disorder chronic pain syndrome hypertension anemia Past Surgical History: tubes tied appendectomy Medications: albuterol inhaler klonopin folic acid HCTZ cozaar magnesium methotrexate percocet prn prednison sulfasalazine venlafaxine MVI Allergies: amoxicillin, latex, pcn, tetracycline, adhesive Social history: TOB use denies Review of Systems: General - denies fevers, denies weight loss, denies anorexia Cardiovascular denies chest pain, denies history of heart attack Pulmonary has shortness of breath with exertion, denies coughing up blood Gastrointestinal as per HPI, denies fecal incontinence, has history of peptic ulcers, denies swallowing problems Neurological denies seizures, denies history of stroke Genitourinary denies burning with urination, denies blood in urine - had UTI with hospitalization in past Hematological denies spontaneous/prolonged bleeding Skin denies open non healing wounds Musculoskeletal has some back pain, has RA Endocrine denies diabetes, is morbidly obese Psychological no major mood swings Physical examination: Vital signs Temp 98.1 HR 90 BP 155/83 Rr 18 General WD/WN WF in no apparent distress, alert and oriented, not septic appearing HEENT Normocephalic. EOM intact with sclera clear and no icterus noted. Neck is supple with no jugular venous distention noted. Trachea is midline. Lungs clear to auscultation. normal breath sounds in all lung harley. No rales/rhonchi/wheezing noted. No labored breathing noted, such as retractions. No cough heard. Heart normal S1 and S2 auscultated. No rubs/clicks/murmurs noted. Normal size and location by auscultation. Abdomen soft and benign. Normal bowel sounds. Difficult to determine if a ny masses due to body habitus Extremities no pitting edema noted. bilateral lower extremity dependent swelling Genitourinary/Rectal deferred Skin normal skin integrity. Neurological non focal. Psychological normal affect, patient is calm and appropriate Impression: anemia melena history of PUD Discussion/Plan: I have discussed the above with the patient. I have offered upper and lower endoscopy for evaluation. I have explained the procedures to the patient. I have counseled the patient as to the risks of the procedure, including but not limited to: infection, bleeding, injury to any intraabdominal organs, perforation of the GI tract, inability to complete the procedure, complications of anesthesia, etc. the patient understands. She agrees to proceed. Will schedule this for tomorrow. I have answered all questions to the patient?s satisfaction and the patient has no further questions.
--- NOTE | 2019-07-08 10:44 | CASEMGMT ---
RADHA LOVE assessment: Face to Face with patient for initial transition planning/care coordination assessment. RADHA LOVE introduced self and role at [facility], pt voices understanding and consents to assessment at this time. Pt is sitting up in bed in no distress at this time. Pt is A/Ox4 at this time and answers all questions appropriately at this time. Care providers, pharmacy, and demographics verified at this time. Pt presents with loose black stools for the last week. Pt scheduled to have upper and lower scopes on 07/09. PCP: Héctor Specialists: Gonzalo Purcell Pharmacy: [facility]cription Benefit[facility] Living Will/HPOA: Pt has LW on file at [facility] at this time and would like to complete HPOA at this time. Ulises rolle, voices understanding. LNOK: Rae Quinones, daughter; Sharlene Vogel, daughter Living Arrangements: Pt states lives with two daughters and grandson in a 2 story home with stairs and states no concerns at home at this time. Transportation: Pt states daughterSharlene, drives and states that sometimes she misses appointments because her daughter sleeps in, but states no further transportation concerns at this time. DME/HHC: Pt states has the following DME: cane, walkers, raised toilet seat, grab bars, shower chair, and motorized scooter(currently not functional). Pt states does not use any DME for ambulation and states no need for any further DME at this time. Pt states has had [employer] [facility] in the past and has been to [facility] and [facility] in the past. Pt states no concerns with going home at time of discharge. Pt is retired. Pt states does not smoke and rarely drinks ETOH. Pt states no further concerns/needs at this time. CM to follow for any further discharge planning/needs. Advised pt to ask for CM if any further questions/concerns/needs arise, voices understanding. Pt Goal: Home Plan: [place] RADHA LOVE
[2019-07-08] MEDS: sulfaSALAzine 500 MG Tablet 1000 MG PO ×2 (10:55→21:08)
[2019-07-08] MEDS: Losartan Potassium 50 MG Tablet PO (10:55)
[2019-07-08] MEDS: Venlafaxine XR 150 MG Capsule PO (10:55)
[2019-07-08] MEDS: Electrolyte Solution/Peg's 4000 ML 2000 ML PO ×2 (12:03→17:58)
[2019-07-08 12:38] LABS: Hematocrit 22.8 % (37-47); Hemoglobin 7.4 g/dL (12.0-15.0)
--- NOTE | 2019-07-08 13:25 | CASEMGMT ---
Social Work Met with pt in room and assisted pt in completing HCPOA. Pt named pt daughter Rae Quinones as HCPOA. Original given to pt and copy placed in chart. PAUL Molina
--- NOTE | 2019-07-08 18:42 | NURSING ---
Reviewed Yenny Ngo's charting.
[2019-07-08] MEDS: Atorvastatin Calcium 20 MG Tablet PO (21:08)
[2019-07-08] MEDS: oxyCODONE 5 MG Tablet PO (23:50)
[2019-07-08] MEDS: Ondansetron 4 MG/2 ML Vial IV (23:51)
[2019-07-09] VITALS (22 sets, daily range): BP systolic 98–156; BP diastolic 50–86; PULSE 80–104; RESP 16–20; TEMP 35.8–36.8; O2SAT 92–100
[2019-07-09] MEDS: 0.9% Normal Saline 1,000 ML 100 ML IV ×2 (02:57→21:22)
--- NOTE | 2019-07-09 05:55 | EKG12_ITS ---
Test Reason : AM EKG Blood Pressure : / mmHG Vent. Rate : 100 BPM Atrial Rate : 100 BPM P-R Int : 198 ms QRS Dur : 088 ms QT Int : 358 ms P-R-T Axes : 053 044 049 degrees QTc Int : 461 ms Sinus rhythm with occasional Premature ventricular complexes Nonspecific ST abnormality Abnormal ECG Confirmed by DONA WAGNER, SHAN ([id number]), legal editor ANNE MARIE BARLOW ([id number]) on 07/13/2019 11:49:43 AM Referred By: Courtney Rader Confirmed By:SHAN CARCAMO MD
[2019-07-09 06:01] LABS: Hematocrit 22.2 % (37-47); Mean Corp Hgb Conc 31.5 g/dL (32-36); Mean Corpuscular Hgb 31.1 pg (27.0-32.0); Mean Corpuscular Volume 98.7 fL (81-99); Mean Platelet Vol. 10.3 fl (6.2-12.0); Platelet Count 194 K/mm3 (150-450); RBC Distribution Width CV 18.2 % (11.6-14.6); RBC Distribution Width SD 63.5 fl (35.1-43.9); Red Blood Count 2.25 M/mm3 (4.2-5.4); White Blood Count 9.8 K/mm3 (4.4-11.0)
[2019-07-09 06:05] LABS: International Normalized Ratio 1.2; Prothrombin Time (Protime)PT. 14.9 SECONDS (11.7-14.9)
[2019-07-09 06:06] LABS: Partial Thromboplast Time 27.6 Seconds (24.1-36.2)
[2019-07-09] MEDS: sulfaSALAzine 500 MG Tablet 1000 MG PO ×2 (09:17→21:55)
[2019-07-09] MEDS: Venlafaxine XR 150 MG Capsule PO (09:18)
[2019-07-09] MEDS: Losartan Potassium 50 MG Tablet PO (09:18)
--- NOTE | 2019-07-09 12:00 | IMM_PTH ---
PATIENT: SEVERIANO LEE LOC: PCU U#:[id number] AGE/SX: 73/F ROOM: [facility] RE07/07/[address]: Dr. Bro Interiano MD : 1945 BED: 1 DIS: 07/10/2019 SPEC #: [id number] RECD: 07/13/19 09:53 STATUS: TANIA REQ #: [id number] SHAUNA: 07/09/19 12:[address]: Laureen Matthews DEPT: IMMUNOHISTOCHEMISTRY RECD BY: Christina Amato ENTERED: 07/13/19 09:54 SP TYPE: IMMUNO OTHR DR: MD Dr. Bro Santizo MD Dr. Mark Stutzman, DO Tissues: A - Stomach, NOS Procedures: H Pylori (initial) PHYSICIAN & INSTITUTION [place] [id number] SPECIMEN INFORMATION: Tissue Source: A - Antrum biopsy Clinical Info: Anemia, melena, GI bleed Specimen Number: [id number] CPT code: 40730 METHODOLOGY: Deparaffinized sections of prefer/formalin-fixed tissue or PAP/DQ stained slides are incubated with monoclonal/polyclonal antibodies/oligonucleotide probes. Localization is made via biotin free immunoperoxidase method. Appropriate controls are performed and reacted as expected. Results on target cell population are indicated in the following table: RESULTS: ANTIBODY / CLONE RESULT Block A H Pylori (polyclonal) negative These tests were developed and their performance characteristics determined by [facility]. They may not have been cleared or approved by the U.S. Food and Drug Administration. The FDA has determined that such clearance or approval is not necessary. INTERPRETATION: A. Antrum biopsy: Negative for Helicobacter pylori organisms. SJ:grace 07/14/19
--- NOTE | 2019-07-09 12:00 | EGD_PTH ---
PATIENT: SEVERIANO LEE LOC: [facility] U#:[id number] AGE/SX: 73/F ROOM: [facility] RE07/07/[address]: Dr. Bro Interiano MD : 1945 BED: 1 DIS: 07/10/2019 SPEC #: [id number] RECD: 07/09/19 17:19 STATUS: TANIA REQ #: [id number] SHAUNA: 07/09/19 12:[address]: Laureen aMtthews DEPT: SURGICAL PATHOLOGY RECD BY: Elmer Hauser ENTERED: 07/13/19 08:32 SP TYPE: EGD BIOPSY OT DR: MD Dr. Bro Santizo MD Dr. Mark Stutzman, DO Tissues: A - Gastric mucous membrane B - Rectum, NOS Procedures: Surgery Specimen Level IV HEADER OPERATION: Colonoscopy, [place] DIAGNOSIS: Anemia, melena, GI bleed TISSUE SUBMITTED: A - Antrum biopsy for H. pylori and path, B - Rectal polyp MICROSCOPIC DIAGNOSIS A. Antrum biopsy: Mild to moderate gastritis. See microscopic description and comment. B. Rectal polyp, biopsy: Consistent with tubular adenoma with cautery artifacts. Fragments of fecal material. SJ:rg 07/14/19 COMMENT A. The results of immunohistochemistry for Helicobacter pylori will be reported separately ([id number]). MICROSCOPIC DESCRIPTION Slides are reviewed. A. The specimen shows fragments of gastric mucosa with chronic inflammatory cell infiltrates in the lamina propria consisting of lymphocytes and plasma cells, consistent with mild to moderate chronic gastritis. A few minute lymphoid aggregates are noted, favor benign. GROSS DESCRIPTION A - Received in fixative is one container labeled with the patient's name and designated antrum biopsy. The specimen consists of two irregular fragments of light guzmán soft tissue that in aggregate measure 0.5 x 0.3 x 0.1 cm. The specimen is totally submitted in one cassette. B - Received in fixative is one container labeled with the patient's name and designated rectal polyp. The specimen consists of a fragment of guzmán soft tissue measuring 0.3 x 0.2 x 0.1 cm. A few fragments of fecal material are also noted. The entire specimen is submitted in one cassette. / TOOTIE:grace 07/13/19 TC:1 CPT: 89936 x2
[2019-07-09] MEDS: Fleet Enema 1 ML RECTAL (12:58)
--- NOTE | 2019-07-09 13:00 | PN_ITS ---
<Ananya Mar - Last Filed: 07/09/19 13:06> Patient Problems: Active and Suspected Problems GI bleed (Acute) Acute blood loss anemia (Acute) Subjective: Patient seen and examined. Reports she has had significant dark stools overnight and this morning. Reports nausea with bowel prep. Denies dizziness, lightheadedness. Denies chest pain, shortness of breath. - Physical Exam General: Alert, Oriented x3, Cooperative HEENT: Atraumatic, PERRLA, EOMI, Normocephalic Neck: Supple, No JVD, Negative Carotid Bruits Lungs: Clear to auscultation, Normal air movement Cardiovascular: Regular rate, Regular Rhythm, Normal S1, Normal S2, No murmurs Abdomen: Bowel Sounds Present, Soft, Non Tender, Non-Distended, Obese Extremities: No clubbing, No cyanosis, Edema - Nonpitting left upper extremity, nonpitting bilateral lower extremities Skin: No rashes, No breakdown Musculoskeletal: No Tenderness to Palpation of Joints or Extremities Neurological: Cranial nerves II-XII grossly intact, Neuro grossly intact Psych/Mental Status: Normal Affect, Appropriate Vital Signs Temp Pulse Resp BP Pulse Ox 97.9 F 91 18 153/56 H 92 07/09/19 11:35 07/09/19 11:35 07/09/19 11:35 07/09/19 11:35 07/09/19 11:35 Oxygen Delivery Method Room Air Weight: 265 lb 10.512 oz Body Mass Index (BMI) 45.6 Intake and Output for Last 24 Hours 07/07/19 07/08/19 07/09/19 23:59 23:59 23:59 Intake Total 1035 / 1035 4625.83 / 4625.83 Output Total / Balance 1035 / 1035 4618.83 / 4618.83 Laboratory Tests Past 24 Hrs 07/07/19 07/07/19 07/09/19 21:10 21:10 05:30 WBC 9.8 RBC 2.25 L Hgb 7.0 L Hct 22.2 L MCV 98.7 MCH 31.1 MCHC 31.5 L RDW Std Deviation 63.5 H RDW Coeff of Espinoza 18.2 H Plt Count 194 MPV 10.3 PT INR APTT Crossmatch See Detail See Detail 07/09/19 05:30 WBC RBC Hgb Hct MCV MCH MCHC RDW Std Deviation RDW Coeff of Espinoza Plt Count MPV PT 14.9 INR 1.2 APTT 27.6 Crossmatch Medical Necessity - Tobacco Use Smoking Status: Former smoker - Patient quit cigarette tobacco usage 30 years prior. 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 Acute GI bleed with associated acute symptomatic blood loss anemia- hemoglobin 6.6 on admission. Patient received 2 units PRBC 07/08/2018. Hemoglobin this a.m. 7. Additional 2 units PRBC ordered. Trend H&H. Dr. Matthews consulted. Clear liquid diet. IV PPI. Plan for upper and lower scope today per surgery. Patient denies history of GI bleed, denies NSAID use. 2. Chronic kidney disease stage II-at baseline, trend BMP. 3. Anxiety/Depression-continue home Klonopin, venlafaxine regimen. 4. Chronic pain syndrome-continue home narcotic regimen. 5. Hypertension-stable, continue home Cozaar regimen. HCTZ on hold. 6. Hyperlipidemia-continue home statin regimen. 7. Morbid obesity-diet and lifestyle modifications encouraged. Nutrition consult. 8. Chronic asthma-as needed albuterol aerosol. 9. Rheumatoid arthritis-continue home methotrexate, sulfasalazine and PRN prednisone. DVT prophylaxis-SCDs This patient was seen by FAUSTO Lee under the supervision of Dr. Interiano. <Bro Interiano - Last Filed: 07/09/19 13:23> - Physical Exam Vital Signs Temp Pulse Resp BP Pulse Ox 97.9 F 91 18 153/56 H 92 07/09/19 11:35 07/09/19 11:35 07/09/19 11:35 07/09/19 11:35 07/09/19 11:35 Oxygen Delivery Method Room Air Weight: 120.5 kg Body Mass Index (BMI) 45.6 Intake and Output for Last 24 Hours 07/07/19 07/08/19 07/09/19 23:59 23:59 23:59 Intake Total 1035 / 1035 4625.83 / 4625.83 2251.67 / 2251.67 Output Total Balance 1035 / 1035 4618.83 / 4618.83 2251.67 / 2251.67 Laboratory Tests Past 24 Hrs 07/07/19 07/07/19 07/09/19 21:10 21:10 05:30 WBC 9.8 RBC 2.25 L Hgb 7.0 L Hct 22.2 L MCV 98.7 MCH 31.1 MCHC 31.5 L RDW Std Deviation 63.5 H RDW Coeff of Espinoza 18.2 H Plt Count 194 MPV 10.3 PT INR APTT Crossmatch See Detail See Detail 07/09/19 05:30 WBC RBC Hgb Hct MCV MCH MCHC RDW Std Deviation RDW Coeff of Espinoza Plt Count MPV PT 14.9 INR 1.2 APTT 27.6 Crossmatch Assessment/Plan This patient was seen in conjunction with FAUSTO Lee . I have independently interviewed and examined the patient and reviewed pertinent historical, laboratory, and other data. Please refer to FAUSTO Lee note for details of this patient's presentation, findings, and recommendations. I have reviewed FAUSTO Lee note and concur with documented findings. In brief, patient is a 73-year-old female admitted with melena. Patient was found to have symptomatic anemia with hemoglobin of 6.6 on admission she was transfused with 2 unit PRBC admitted to a monitored bed with consultation placed to general surgery with plans for patient undergo endoscopic evaluation on 07/09/2019 07/09/2019: Patient hemoglobin level continues to drop. Scheduled to undergo endoscopic evaluation. She did receive additional PRBC transfusion Physical Examination: GENERAL: cooperative HEENT: Atraumatic; moist oral mucosa EYES; Anicteric, Normal Conjunctiva NECK; supple, normal thyroid, RESPIRATORY: Diminished to auscultation CARDIOVASCULAR: Regular S1 S2, GI: soft, non-tender, normoactive bowel sounds, : No Renal angle tenderness; EXTREMITIES: No edema, no clubbing, NEURO: Awake; no lateralizing signs. SKIN: No Rash PSYCH; Normal affect Assessment: 1. Acute blood loss anemia suspected to be secondary to upper GI bleed 2. Dyslipidemia 3. Essential hypertension 4. Rheumatoid arthritis 5. Mild intermittent asthma 6. Acute renal insufficiency resolved with IV hydration 7. Chronic pain syndrome 8. Obesity with BMI of 45.6 9. Depression with anxiety Recommendations: 1. I have discussed the results of my overview and impressions with the patient 2. Options for management were reviewed Code Visit Inpatient E&M: 19784 Subs Hosp L2
--- NOTE | 2019-07-09 16:24 | OP.ENDO_ITS ---
07/09/2019 Marciano Anaya [address] [place] [address] Re : Upper GI endoscopy procedure for Betsy Solano Dear Dr. Anaya This procedure was performed on Tuesday, July 09, 2019. My impressions and recommendations are as follows: Impressions : - Normal esophagus. - Normal first portion of the duodenum and second portion of the duodenum. - Normal stomach. Biopsied. -No signs of bleeding noted throughout upper endoscopy Recommendations : - [facility]. - Resume previous diet. - Continue present medications. My findings are described in the full procedure note, which is enclosed. If I can be of further assistance, please feel free to contact me at Doctor phone number(s): , Work: . Sincerely, MD Laureen Meek MD 07/09/2019 4:23:58 PM This report has been signed electronically.
--- NOTE | 2019-07-09 16:27 | OP.ENDO_ITS ---
07/09/2019 Marciano Anaya [address] [place] [address] Re : Colonoscopy procedure for Betsydavid Solano Dear Dr. Anaya This procedure was performed on Tuesday, July 09, 2019. My impressions and recommendations are as follows: Impressions : - One 5 to 10 mm polyp in the rectum, removed with a hot snare. Resected and retrieved. - Non-bleeding external and internal hemorrhoids. Recommendations : - Repeat colonoscopy date to be determined after pending pathology results are reviewed for surveillance based on pathology results. - My office will telephone with pathology results in 1-2 weeks - Continue present medications. My findings are described in the full procedure note, which is enclosed. If I can be of further assistance, please feel free to contact me at Doctor phone number(s): , Work: . Sincerely, MD Laureen Meek MD 07/09/2019 4:26:56 PM This report has been signed electronically.
--- NOTE | 2019-07-09 16:27 | PCM.PN.BLA ---
Progress Note EGD and colonoscopy done No definitive signs of bleeding noted normal EGD - biopsies of antrum taken for H pylori given patient's complaint of epigastric pain Rectal polyp found - completely removed, path pending but doubt malignancy Advance diet as tolerated
[2019-07-09] MEDS: oxyCODONE 5 MG Tablet PO (20:21)
[2019-07-09 21:50] LABS: Hematocrit 30.7 % (37-47)
[2019-07-09] MEDS: Atorvastatin Calcium 20 MG Tablet PO (21:55)
[2019-07-09] MEDS: clonazePAM 1 MG Tablet PO (21:59)
[2019-07-10 03:29] VITALS: PULSE 80
[2019-07-10 04:00] VITALS: BP 132/81; PULSE 88; RESP 18; TEMP 36.6; O2SAT 94
[2019-07-10 06:13] LABS: Hematocrit 28.8 % (37-47); Hemoglobin 9.2 g/dL (12.0-15.0); Mean Corp Hgb Conc 31.9 g/dL (32-36); Mean Corpuscular Hgb 31.3 pg (27.0-32.0); Mean Platelet Vol. 10.2 fl (6.2-12.0); Platelet Count 192 K/mm3 (150-450); RBC Distribution Width CV 17.6 % (11.6-14.6); RBC Distribution Width SD 59.8 fl (35.1-43.9); Red Blood Count 2.94 M/mm3 (4.2-5.4)
[2019-07-10 06:44] VITALS: PULSE 76
[2019-07-10 06:55] VITALS: O2SAT 94
[2019-07-10] MEDS: 0.9% Normal Saline 1,000 ML 100 ML IV (08:05)
--- NOTE | 2019-07-10 08:54 | PCM.DC ---
- Discharge Diagnoses Current Active Problems: Current Active and Chronic Problems GI bleed (Acute) Morbid obesity (Chronic) HLD (hyperlipidemia) (Chronic) Asthma (Chronic) Anxiety and depression (Chronic) Acute blood loss anemia (Acute) Chronic pain syndrome (Chronic) You will use the following diet at home:: Cardiac Discharge Activity: Return to Normal Activity Call your doctor if you observe: Shortness of breath, Dizziness, Fainting spells, Chest pain Allergies/Adverse Reactions: Allergies adhesive Allergy (Verified 11/17/17 17:06) Other amoxicillin trihydrate [From Augmentin] Allergy (Verified 11/17/17 17:06) Unknown latex Allergy (Verified 11/17/17 17:06) Unknown Penicillins Allergy (Verified 11/17/17 17:06) Unknown potassium clavulanate [From Augmentin] Allergy (Verified 11/17/17 17:06) Unknown tetracycline Allergy (Verified 11/17/17 17:06) Unknown Medications to take at Discharge Albuterol IH (ProAir) [Proair Hfa] 1 - 2 puff INHALATION Q6H PRN PRN 03/15/15 Hydrochlorothiazide [Hctz] 12.5 mg PO DAILY 03/15/15 Methotrexate 20 mg PO QWEEK 03/15/15 Clonazepam [Klonopin] 1 mg PO HS #30 tablet 03/29/15 Folic Acid 1 mg PO DAILY@0800 #0 tablet 03/29/15 Losartan Potassium [Cozaar] 50 mg PO DAILY #30 tablet 03/29/15 Oxycodone HCl/Acetaminophen [Percocet 5-325] 1 tablet PO TID 11/17/17 Magnesium 400 mg PO DAILY 07/07/19 Oxycodone HCl/Acetaminophen [Percocet 7.5-325 mg Tablet] 1 tab PO TID PRN 07/07/19 Prednisone 10 mg PO PRN PRN 07/07/19 Sulfasalazine 1,000 mg PO BID 07/07/19 Venlafaxine HCl [Venlafaxine HCl ER] 150 mg PO DAILY 07/07/19 Vit A/Vit C/Vit E/Zinc/Copper [Preservision Areds Tablet] 2 ea PO DAILY 07/07/19 Pantoprazole Sodium [Protonix] 40 mg PO BID #60 tab 07/10/19 The following prescriptions were given: Pantoprazole Sodium [Protonix] 40 mg PO BID #60 tab Transmission Status: Pending to [facility] Primary Care Physician: Marciano Anaya DO [Primary Care Provider] - Please follow up with your Primary Care Physician in: 1 Week Test Results: Test results from this visit will be discussed in further detail at your follow-up appointment, if applicable. Please Follow Up With: Laureen Matthews MD When: 1 Week, call for biopsy results Proposed Discharge Date: 07/10/19
[2019-07-10 09:06] VITALS: BP 101/60; PULSE 104; RESP 18; TEMP 37.1; O2SAT 95
[2019-07-10] MEDS: 0.9% NaCl Peripheral Flush Adult/Peds IV (09:18)
[2019-07-10] MEDS: sulfaSALAzine 500 MG Tablet 1000 MG PO (09:19)
[2019-07-10] MEDS: Venlafaxine XR 150 MG Capsule PO (09:19)
--- NOTE | 2019-07-10 09:20 | DS.PCM_ITS ---
<Ananya Mar - Last Filed: 07/10/19 09:25> Discharge Date and Diagnosis Date of Admission: 07/07/19 Date of Discharge: 07/10/19 - Primary Discharge Diagnosis Active and Suspected Problems 1. Acute GI bleed with associated acute symptomatic blood loss anemia 2. Chronic kidney disease stage II 3. Anxiety/Depression 4. Chronic pain syndrome 5. Hypertension 6. Hyperlipidemia 7. Morbid obesity 8. Chronic asthma 9. Rheumatoid arthritis - Secondary Discharge Diagnosis Chronic Problems Morbid obesity (Chronic) HLD (hyperlipidemia) (Chronic) Asthma (Chronic) Anxiety and depression (Chronic) Chronic pain syndrome (Chronic) Morbid obesity with BMI of 40.0-44.9, adult (Chronic) Hyperkalemia (Chronic) Hypertension (Chronic) History of rheumatoid arthritis (Chronic) Hospital Course and Treatment Dr. Matthews- General Surgery Operations: None Procedures: Colonoscopy, EGD Summary of Care Provided: The patient is a 73 year old F admitted 07/07/2018 due to diarrhea, black stools and lightheadedness. 1. Acute GI bleed with associated acute symptomatic blood loss anemia- hemoglobin 6.6 on admission. Patient received 4 units PRBC total during admission. Dr. Matthews consulted. Patient underwent EGD and colonoscopy 07/09/2018. EGD with no evidence of bleeding, biopsied. Colonoscopy also with no evidence of bleeding, one polyp removed and sent for pathology. Call office in 1 to 2 weeks for pathology results. Discharged on Protonix 40 mg twice daily. Follow-up with primary care physician in 1 week. Hemoglobin stable at discharge. Recommend repeat CBC in 1 week by primary care provider. 2. Chronic kidney disease stage II-at baseline. 3. Anxiety/Depression-continue home Klonopin, venlafaxine regimen. 4. Chronic pain syndrome-continue home narcotic regimen. 5. Hypertension-stable, continue home Cozaar, HCTZ regimen. 6. Hyperlipidemia-continue home statin regimen. 7. Morbid obesity-diet and lifestyle modifications encouraged. 8. Chronic asthma-as needed albuterol inhaler. 9. Rheumatoid arthritis-continue home methotrexate, sulfasalazine and PRN prednisone. General: Alert, Oriented x3, Cooperative HEENT: Atraumatic, PERRLA, EOMI, Normocephalic Neck: Supple, No JVD, Negative Carotid Bruits Lungs: Clear to auscultation, Normal air movement Cardiovascular: Regular rate, Regular Rhythm, Normal S1, Normal S2, No murmurs Abdomen: Bowel Sounds Present, Soft, Non Tender, Non-Distended, Obese Extremities: No clubbing, No cyanosis, Edema - Nonpitting left upper extremity, nonpitting bilateral lower extremities Skin: No rashes, No breakdown Musculoskeletal: No Tenderness to Palpation of Joints or Extremities Neurological: Cranial nerves II-XII grossly intact, Neuro grossly intact Psych/Mental Status: Normal Affect, Appropriate Patient seen and examined prior to discharge. Physical assessment as noted above. Patient is stable for discharge with follow up recommendations as noted above. This patient was seen by FAUSTO Lee under the supervision of Dr. Interiano. - Physical Exam Vital Signs Temp Pulse Resp BP Pulse Ox 98.7 F 104 H 18 101/60 95 07/10/19 09:06 07/10/19 09:06 07/10/19 09:06 07/10/19 09:06 07/10/19 09:06 Oxygen Delivery Method Room Air Weight: 265 lb 10.512 oz Body Mass Index (BMI) 45.6 Intake and Output for Last 24 Hours 07/08/19 07/09/19 07/10/19 23:59 23:59 23:59 Intake Total 4625.83 / 4625.83 3730.00 / 3730.00 1338.34 / 1338.34 Output Total 7 / 7 Balance 4618.83 / 4618.83 3730.00 / 3730.00 1338.34 / 1338.34 Laboratory Tests Past 24 Hrs 07/07/19 07/07/19 07/09/19 21:10 21:10 20:47 WBC RBC Hgb Cancelled Hct Cancelled MCV MCH MCHC RDW Std Deviation RDW Coeff of Espinoza Plt Count MPV Crossmatch See Detail See Detail 07/09/19 07/10/19 21:40 05:28 WBC 8.0 RBC 2.94 L Hgb 10.0 L 9.2 L Hct 30.7 L 28.8 L MCV 98.0 MCH 31.3 MCHC 31.9 L RDW Std Deviation 59.8 H RDW Coeff of Espinoza 17.6 H Plt Count 192 MPV 10.2 Crossmatch Discharge Diet: Light diet - advance as tolerated Discharge Activity: Return to Normal Activity Call your doctor if you observe: Shortness of breath, Dizziness, Fainting spells, Chest pain Home Medications: Medications to take at Discharge Albuterol IH (ProAir) [Proair Hfa] 1 - 2 puff INHALATION Q6H PRN PRN 03/15/15 Hydrochlorothiazide [Hctz] 12.5 mg PO DAILY 03/15/15 Methotrexate 20 mg PO QWEEK 03/15/15 Clonazepam [Klonopin] 1 mg PO HS #30 tablet 03/29/15 Folic Acid 1 mg PO DAILY@0800 #0 tablet 03/29/15 Losartan Potassium [Cozaar] 50 mg PO DAILY #30 tablet 03/29/15 Oxycodone HCl/Acetaminophen [Percocet 5-325] 1 tablet PO TID 11/17/17 Magnesium 400 mg PO DAILY 07/07/19 Oxycodone HCl/Acetaminophen [Percocet 7.5-325 mg Tablet] 1 tab PO TID PRN 07/07/19 Prednisone 10 mg PO PRN PRN 07/07/19 Sulfasalazine 1,000 mg PO BID 07/07/19 Venlafaxine HCl [Venlafaxine HCl ER] 150 mg PO DAILY 07/07/19 Vit A/Vit C/Vit E/Zinc/Copper [Preservision Areds Tablet] 2 ea PO DAILY 07/07/19 Pantoprazole Sodium [Protonix] 40 mg PO BID #60 tab 07/10/19 Following Prescrptions Were Given to Patient: Pantoprazole Sodium [Protonix] 40 mg PO BID #60 tab Transmission Status: Received by [facility] Primary Care Physician: Marciano Anaya DO [Primary Care Provider] - Please follow up with your Primary Care Physician in: 1 Week Please Follow Up With: Laureen Matthews MD When: 1 Week, call for biopsy results Please Follow Up With: Marciano Anaya DO Disposition: Home Minutes spent on discharge:: 35 Patient Condition:: Stable Medical Necessity - Tobacco Use Smoking Status: Former smoker - Patient quit cigarette tobacco usage 30 years prior. Tobacco Use: Non-smoker Meaningful Use Info Meaningful Use Diagnoses (Choose all that apply): None applicable <Bro Interiano - Last Filed: 07/10/19 09:52> Discharge Date and Diagnosis - Secondary Discharge Diagnosis Chronic Problems Morbid obesity (Chronic) HLD (hyperlipidemia) (Chronic) Asthma (Chronic) Anxiety and depression (Chronic) Chronic pain syndrome (Chronic) Morbid obesity with BMI of 40.0-44.9, adult (Chronic) Hyperkalemia (Chronic) Hypertension (Chronic) History of rheumatoid arthritis (Chronic) Hospital Course and Treatment Summary of Care Provided: This patient was seen in conjunction with FAUSTO Lee . I have independently interviewed and examined the patient and reviewed pertinent historical, laboratory, and other data. Please refer to FAUSTO Lee note for details of this patient's presentation, findings, and recommendations. I have reviewed FAUSTO Lee note and concur with documented findings. In brief, patient is a 73-year-old female admitted with melena. Patient was found to have symptomatic anemia with hemoglobin of 6.6 on admission she was transfused with 2 unit PRBC admitted to a monitored bed with consultation placed to general surgery patient underwent endoscopic evaluation on 07/09/2019. No identifiable source of bleeding was found. Patient was however found to have a colonic polyp which was excised and sent for biopsy Assessment: 1. Acute blood loss anemia suspected to be secondary to upper GI bleed possibly from gastritis 2. Dyslipidemia 3. Essential hypertension 4. Rheumatoid arthritis 5. Mild intermittent asthma 6. Acute renal insufficiency resolved with IV hydration 7. Chronic pain syndrome 8. Obesity with BMI of 45.6 9. Depression with anxiety Hospital course: As documented above by Ananya Mar NP?C. - Physical Exam Vital Signs Temp Pulse Resp BP Pulse Ox 98.7 F 104 H 18 101/60 95 07/10/19 09:06 07/10/19 09:06 07/10/19 09:06 07/10/19 09:06 07/10/19 09:06 Oxygen Delivery Method Room Air Weight: 120.5 kg Body Mass Index (BMI) 45.6 Intake and Output for Last 24 Hours 07/08/19 07/09/19 07/10/19 23:59 23:59 23:59 Intake Total 4625.83 / 4625.83 3730.00 / 3730.00 1338.34 / 1338.34 Output Total 7 / Balance 4618.83 / 4618.83 3730.00 / 3730.00 1338.34 / 1338.34 Laboratory Tests Past 24 Hrs 07/07/19 07/07/19 07/09/19 21:10 21:10 20:47 WBC RBC Hgb Cancelled Hct Cancelled MCV MCH MCHC RDW Std Deviation RDW Coeff of Espinoza Plt Count MPV Crossmatch See Detail See Detail 07/09/19 07/10/19 21:40 05:28 WBC 8.0 RBC 2.94 L Hgb 10.0 L 9.2 L Hct 30.7 L 28.8 L MCV 98.0 MCH 31.3 MCHC 31.9 L RDW Std Deviation 59.8 H RDW Coeff of Espinoza 17.6 H Plt Count 192 MPV 10.2 Crossmatch Code Visit Inpatient E&M: 28697 Disch Hosp
--- NOTE | 2019-07-13 11:43 | CASEMGMT ---
RADHA Discharge Follow-up Phone Call: FLAVIA: Maribel Strata: 3 Call Date: 07/13/19 Discharge Date: 07/10/19 Time of Call: 1138 Duration: 3 minutes ? Admitting Diagnosis: GI Bleed, ABLA Discharge follow-up call made to patient. Pt states she is feeling well. Pt denies any feelings of lightheadedness/dizziness and states her bowel movement was normal without signs of blood. 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 Pt stated she was not aware that [facility] had a pharmacy. Reinforced the need to be taking this medication and pt reiterated that once it is transferred to [facility] she will pick it up. Pt has not yet called to schedule her follow-up appointments with Dr. Matthews or Dr. Anaya. Phone number for Dr. Matthews provided to pt. Pt was able to state she needed to call Dr. Matthews's office to obtain the biopsy results. Pt states she has Dr. Anaya's phone number. Pt denied any other questions or concerns at this time. Karen Delgadillo RN
== END 2019-07-10 10:52 | disposition home or self-care (01) | DRG 378 ==
LOC: ED 21:30 → PCU 23:11
PROVIDERS: Anesthesiology; Nurse Practitioner Family; Surgery; Admitting Provider Family Medicine; Emergency Provider Emergency Medicine; Family Provider Family Medicine; PCP Family Medicine; Referring Provider Family Medicine; Visit Provider Internal Medicine
PROC: 0DJD8ZZ Inspection of Lower Intestinal Tract, Via Natural or Artificial Opening Endoscopic (ICD-10-PCS; CPT 45378; principal; 2019-07-09 11:55)
DX: K92.2 Gastrointestinal hemorrhage, unspecified (principal); D62 Acute posthemorrhagic anemia; Z68.42 Body mass index [BMI] 45.0-49.9, adult; M06.9 Rheumatoid arthritis, unspecified; Z66 Do not resuscitate; K64.8 Other hemorrhoids; K64.4 Residual hemorrhoidal skin tags; K62.1 Rectal polyp; N18.2 Chronic kidney disease, stage 2 (mild); F41.8 Other specified anxiety disorders; G89.4 Chronic pain syndrome; E78.5 Hyperlipidemia, unspecified; E66.01 Morbid (severe) obesity due to excess calories; I12.9 Hypertensive chronic kidney disease with stage 1 through stage 4 chronic kidney disease, or unspecified chronic kidney disease; J45.20 Mild intermittent asthma, uncomplicated
CPT/HCPCS: 36415; 80048; 80053; 83690; 85014; 85018; 85025; 85027; 85610; 85730; 86850; 86900; 86901; 86920; 86921; 86922; 88305; 88342; 93005; 99285; J7030; J7040; P9016; A4216; J2405; J3490

== ENCOUNTER → 2019-08-03 12:33 | Outpatient (CLI) | payer MEDICARE, SELFPAY ==
[2019-07-08 23:42] VITALS: BMI 45.6
[2019-08-03 13:58] LABS: Absolute Lymphocyte Count 1.51 X10^3/uL (0.83-4.51); Absolute Neutrophil Count 5.7 X10^3/uL (2.0-7.7); Basophil# 0.09 X10^3/uL; Basophil% 1.1 % (0-1); Eosinophil# 0.35 X10^3/uL; Eosinophils% 4.2 % (0-5); Hematocrit 37.4 % (37-47); Hemoglobin 11.3 g/dL (12.0-15.0); Lymphocyte # 1.51 X10^3/ul (4.0); Mean Corp Hgb Conc 30.2 g/dL (32-36); Mean Corpuscular Hgb 29.5 pg (27.0-32.0); Mean Corpuscular Volume 97.7 fL (81-99); Mean Platelet Vol. 10.2 fl (6.2-12.0); Monocyte# 0.68 X10^3/uL; Monocyte% 8.1 % (0-10); NRBC Flagged by Analyzer 0 % (0-5); Neutrophil # 5.71 X10^3/uL (2.7-7.7); Neutrophil % 68.1 % (47-70); Platelet Count 263 K/mm3 (150-450); RBC Distribution Width CV 16.8 % (11.6-14.6); RBC Distribution Width SD 60.1 fl (35.1-43.9); Red Blood Count 3.83 M/mm3 (4.2-5.4); White Blood Count 8.4 K/mm3 (4.4-11.0)
[2019-08-03 14:16] LABS: Thyroid Stim Hormone (TSH) 8.36 uIU/mL (0.358-3.74)
== END ==
PROVIDERS: Family Provider Family Medicine; PCP Family Medicine; Referring Provider Family Medicine; Visit Provider Family Medicine
DX: R60.0 Localized edema (principal); M06.9 Rheumatoid arthritis, unspecified; R19.5 Other fecal abnormalities
CPT/HCPCS: 36415; 84443; 85025

== ENCOUNTER → 2019-09-14 14:46 | Outpatient (CLI) | payer MEDICARE, SELFPAY ==
[2019-07-08 23:42] VITALS: BMI 45.6
[2019-09-14 18:02] LABS: Absolute Lymphocyte Count 2.01 X10^3/uL (0.83-4.51); Basophil# 0.09 X10^3/uL; Eosinophil# 0.29 X10^3/uL; Eosinophils% 3.2 % (0-5); Hematocrit 38.2 % (37-47); Hemoglobin 11.5 g/dL (12.0-15.0); Lymphocyte # 2.01 X10^3/ul (4.0); Lymphocyte % 21.9 % (19-41); Mean Corp Hgb Conc 30.1 g/dL (32-36); Mean Corpuscular Hgb 29.3 pg (27.0-32.0); Mean Corpuscular Volume 97.2 fL (81-99); Mean Platelet Vol. 10.4 fl (6.2-12.0); Monocyte# 0.75 X10^3/uL; Monocyte% 8.2 % (0-10); NRBC Flagged by Analyzer 0 % (0-5); Neutrophil # 6.01 X10^3/uL (2.7-7.7); Neutrophil % 65.3 % (47-70); Platelet Count 304 K/mm3 (150-450); RBC Distribution Width CV 17.1 % (11.6-14.6); RBC Distribution Width SD 60.8 fl (35.1-43.9); Red Blood Count 3.93 M/mm3 (4.2-5.4); White Blood Count 9.2 K/mm3 (4.4-11.0)
[2019-09-14 18:22] LABS: ALB/GLOB Ratio 0.9 RATIO (0.9-2.4); AST(SGOT) 15 U/L (15-37); Alanine Aminotransfer ALT/SGPT 19 U/L (13-56); Albumin, Serum 3.6 g/dL (3.2-5.0); Alkaline Phosphatase 121 U/L (45-117); Anion Gap 9 (5-15); BUN 19 mg/dL (7-18); BUN/Creat Ratio 19.1 RATIO (10-20); Calcium,Total 9.5 mg/dL (8.5-10.1); Chloride 103 mmol/L (98-107); EST Glomerular Filtration Rate 58 mL/min (>60); Est Glom Filt Rate - Afr Amer 70 mL/min (>60); Glucose 84 mg/dL (74-106); Potassium 4.4 mmol/L (3.5-5.1); Protein, Total 7.6 g/dL (6.4-8.2); Sodium Level 141 mmol/L (136-145)
== END ==
PROVIDERS: Family Provider Family Medicine; PCP Family Medicine; Referring Provider Internal Medicine Rheumatology; Visit Provider Internal Medicine Rheumatology
DX: M05.70 Rheumatoid arthritis with rheumatoid factor of unspecified site without organ or systems involvement (principal); Z79.899 Other long term (current) drug therapy; M18.12 Unilateral primary osteoarthritis of first carpometacarpal joint, left hand; M21.40 Flat foot [pes planus] (acquired), unspecified foot; H35.30 Unspecified macular degeneration; I10 Essential (primary) hypertension
CPT/HCPCS: 36415; 80053; 85025

== ENCOUNTER → 2019-12-07 14:24 | Outpatient (CLI) | payer MEDICARE, SELFPAY ==
[2019-07-08 23:42] VITALS: BMI 45.6
[2019-12-07 17:39] LABS: Absolute Lymphocyte Count 1.99 X10^3/uL (0.83-4.51); Absolute Neutrophil Count 5.2 X10^3/uL (2.0-7.7); Basophil# 0.07 X10^3/uL; Basophil% 0.8 % (0-1); Eosinophil# 0.36 X10^3/uL; Eosinophils% 4.3 % (0-5); Hemoglobin 11.8 g/dL (12.0-15.0); Lymphocyte # 1.99 X10^3/ul (4.0); Lymphocyte % 23.9 % (19-41); Mean Corp Hgb Conc 30.3 g/dL (32-36); Mean Corpuscular Hgb 29.1 pg (27.0-32.0); Mean Corpuscular Volume 96.1 fL (81-99); Mean Platelet Vol. 9.9 fl (6.2-12.0); Monocyte# 0.66 X10^3/uL; Monocyte% 7.9 % (0-10); NRBC Flagged by Analyzer 0 % (0-5); Neutrophil # 5.21 X10^3/uL (2.7-7.7); Neutrophil % 62.7 % (47-70); Platelet Count 246 K/mm3 (150-450); RBC Distribution Width CV 17.2 % (11.6-14.6); RBC Distribution Width SD 60.5 fl (35.1-43.9); Red Blood Count 4.06 M/mm3 (4.2-5.4); White Blood Count 8.3 K/mm3 (4.4-11.0)
[2019-12-07 18:04] LABS: Vitamin D,25 Hydroxy 31.6 ng/mL (29.95-100.01)
[2019-12-07 18:14] LABS: ALB/GLOB Ratio 0.8 RATIO (0.9-2.4); AST(SGOT) 13 U/L (15-37); Alanine Aminotransfer ALT/SGPT 18 U/L (13-56); Albumin, Serum 3.4 g/dL (3.2-5.0); Alkaline Phosphatase 130 U/L (45-117); Anion Gap 7 (5-15); BUN 15 mg/dL (7-18); BUN/Creat Ratio 16.4 RATIO (10-20); Calcium,Total 9.3 mg/dL (8.5-10.1); Chloride 103 mmol/L (98-107); Cholesterol 210 mg/dL (200); Creatinine, Serum 0.91 mg/dL (0.55-1.02); EST Glomerular Filtration Rate 64 mL/min (>60); Est Glom Filt Rate - Afr Amer 77 mL/min (>60); Glucose 110 mg/dL (74-106); High Density Lipoprotein 48 mg/dL; Protein, Total 7.4 g/dL (6.4-8.2); Sodium Level 138 mmol/L (136-145); T4 Free Direct 1.04 ng/dL (0.76-1.46); Thyroid Stim Hormone (TSH) 5.15 uIU/mL (0.358-3.74); Triglycerides 187 mg/dL; Very Low Density Lipoprotein 37 mg/dL (5-40)
[2019-12-08 14:56] LABS: Hemoglobin A1c 6.4 % (4.2-6.3)
== END ==
PROVIDERS: Family Provider Family Medicine; PCP Family Medicine; Referring Provider Internal Medicine Rheumatology; Visit Provider Internal Medicine Rheumatology
DX: M05.70 Rheumatoid arthritis with rheumatoid factor of unspecified site without organ or systems involvement (principal); Z79.899 Other long term (current) drug therapy; M18.12 Unilateral primary osteoarthritis of first carpometacarpal joint, left hand; M21.40 Flat foot [pes planus] (acquired), unspecified foot; H35.30 Unspecified macular degeneration; E55.9 Vitamin D deficiency, unspecified; R73.01 Impaired fasting glucose; E03.9 Hypothyroidism, unspecified
CPT/HCPCS: 36415; 80053; 80061; 82306; 83036; 84439; 84443; 85025

== ENCOUNTER → 2020-03-29 13:28 | Outpatient (CLI) | payer MEDICARE, SELFPAY ==
[2019-07-08 23:42] VITALS: BMI 45.6
[2020-03-29 15:26] LABS: Absolute Lymphocyte Count 1.63 X10^3/uL (0.83-4.51); Absolute Neutrophil Count 3.7 X10^3/uL (2.0-7.7); Basophil# 0.07 X10^3/uL; Basophil% 1.1 % (0-1); Eosinophil# 0.24 X10^3/uL; Eosinophils% 3.9 % (0-5); Hematocrit 38.9 % (37-47); Hemoglobin 11.9 g/dL (12.0-15.0); Lymphocyte # 1.63 X10^3/ul (4.0); Lymphocyte % 26.7 % (19-41); Mean Corp Hgb Conc 30.6 g/dL (32-36); Mean Corpuscular Hgb 30.5 pg (27.0-32.0); Mean Corpuscular Volume 99.7 fL (81-99); Mean Platelet Vol. 9.8 fl (6.2-12.0); Monocyte# 0.47 X10^3/uL; Monocyte% 7.7 % (0-10); NRBC Flagged by Analyzer 0 % (0-5); Neutrophil # 3.67 X10^3/uL (2.7-7.7); Neutrophil % 60.3 % (47-70); Platelet Count 273 K/mm3 (150-450); RBC Distribution Width CV 16.1 % (11.6-14.6); RBC Distribution Width SD 58.5 fl (35.1-43.9); White Blood Count 6.1 K/mm3 (4.4-11.0)
[2020-03-29 15:37] LABS: ALB/GLOB Ratio 0.8 RATIO (0.9-2.4); AST(SGOT) 19 U/L (15-37); Alanine Aminotransfer ALT/SGPT 18 U/L (13-56); Albumin, Serum 3.4 g/dL (3.2-5.0); Alkaline Phosphatase 130 U/L (45-117); Anion Gap 5 (5-15); BUN 14 mg/dL (7-18); BUN/Creat Ratio 15.5 RATIO (10-20); Calcium,Total 9.5 mg/dL (8.5-10.1); Chloride 102 mmol/L (98-107); EST Glomerular Filtration Rate 65 mL/min (>60); Est Glom Filt Rate - Afr Amer 78 mL/min (>60); Glucose 122 mg/dL (74-106); Potassium 4.3 mmol/L (3.5-5.1); Protein, Total 7.4 g/dL (6.4-8.2); Sodium Level 137 mmol/L (136-145)
== END ==
PROVIDERS: PCP Family Medicine; Referring Provider Internal Medicine Rheumatology; Visit Provider Internal Medicine Rheumatology
DX: M05.70 Rheumatoid arthritis with rheumatoid factor of unspecified site without organ or systems involvement (principal); Z79.899 Other long term (current) drug therapy; M18.12 Unilateral primary osteoarthritis of first carpometacarpal joint, left hand; M21.40 Flat foot [pes planus] (acquired), unspecified foot; H35.30 Unspecified macular degeneration
CPT/HCPCS: 36415; 80053; 85025

== ENCOUNTER → 2020-06-16 13:11 | Outpatient (CLI) | payer MEDICARE, SELFPAY ==
[2019-07-08 23:42] VITALS: BMI 45.6
[2020-06-16 15:06] LABS: Absolute Lymphocyte Count 1.91 X10^3/uL (0.83-4.51); Basophil# 0.06 X10^3/uL; Basophil% 0.9 % (0-1); Eosinophil# 0.36 X10^3/uL; Eosinophils% 5.2 % (0-5); Hematocrit 39.7 % (37-47); Hemoglobin 12.1 g/dL (12.0-15.0); Lymphocyte # 1.91 X10^3/ul (4.0); Lymphocyte % 27.8 % (19-41); Mean Corp Hgb Conc 30.5 g/dL (32-36); Mean Corpuscular Hgb 30.7 pg (27.0-32.0); Mean Corpuscular Volume 100.8 fL (81-99); Mean Platelet Vol. 10.3 fl (6.2-12.0); Monocyte# 0.55 X10^3/uL; NRBC Flagged by Analyzer 0 % (0-5); Neutrophil # 3.96 X10^3/uL (2.7-7.7); Neutrophil % 57.7 % (47-70); Platelet Count 281 K/mm3 (150-450); RBC Distribution Width CV 16.1 % (11.6-14.6); RBC Distribution Width SD 59.7 fl (35.1-43.9); Red Blood Count 3.94 M/mm3 (4.2-5.4); White Blood Count 6.9 K/mm3 (4.4-11.0)
[2020-06-16 15:24] LABS: ALB/GLOB Ratio 0.9 RATIO (0.9-2.4); AST(SGOT) 22 U/L (15-37); Alanine Aminotransfer ALT/SGPT 18 U/L (13-56); Albumin, Serum 3.5 g/dL (3.2-5.0); Alkaline Phosphatase 123 U/L (45-117); Anion Gap 3 (5-15); BUN 18 mg/dL (7-18); BUN/Creat Ratio 18.6 RATIO (10-20); Calcium,Total 9.3 mg/dL (8.5-10.1); Chloride 108 mmol/L (98-107); Creatinine, Serum 0.97 mg/dL (0.55-1.02); EST Glomerular Filtration Rate 60 mL/min (>60); Est Glom Filt Rate - Afr Amer 72 mL/min (>60); Globulin 3.8 g/dL (2.2-4.2); Glucose 116 mg/dL (74-106); Potassium 4.3 mmol/L (3.5-5.1); Protein, Total 7.3 g/dL (6.4-8.2); Sodium Level 142 mmol/L (136-145)
== END ==
PROVIDERS: PCP Family Medicine; Referring Provider Internal Medicine Rheumatology; Visit Provider Internal Medicine Rheumatology
DX: M05.70 Rheumatoid arthritis with rheumatoid factor of unspecified site without organ or systems involvement (principal); Z79.899 Other long term (current) drug therapy; M18.12 Unilateral primary osteoarthritis of first carpometacarpal joint, left hand; M21.40 Flat foot [pes planus] (acquired), unspecified foot; H35.30 Unspecified macular degeneration
CPT/HCPCS: 36415; 80053; 85025

== ENCOUNTER → 2020-09-12 13:40 | Outpatient (CLI) | payer MEDICARE, SELFPAY ==
[2019-07-08 23:42] VITALS: BMI 45.6
[2020-09-12 15:17] LABS: Absolute Lymphocyte Count 1.87 X10^3/uL (0.83-4.51); Absolute Neutrophil Count 4.8 X10^3/uL (2.0-7.7); Basophil# 0.05 X10^3/uL; Basophil% 0.7 % (0-1); Eosinophil# 0.29 X10^3/uL; Eosinophils% 3.8 % (0-5); Hematocrit 39.4 % (37-47); Lymphocyte # 1.87 X10^3/ul (4.0); Lymphocyte % 24.3 % (19-41); Mean Corp Hgb Conc 30.5 g/dL (32-36); Mean Corpuscular Hgb 30.6 pg (27.0-32.0); Mean Corpuscular Volume 100.5 fL (81-99); Mean Platelet Vol. 9.9 fl (6.2-12.0); Monocyte# 0.67 X10^3/uL; Monocyte% 8.7 % (0-10); NRBC Flagged by Analyzer 0 % (0-5); Neutrophil # 4.77 X10^3/uL (2.7-7.7); Platelet Count 263 K/mm3 (150-450); RBC Distribution Width CV 15.7 % (11.6-14.6); RBC Distribution Width SD 56.9 fl (35.1-43.9); Red Blood Count 3.92 M/mm3 (4.2-5.4); White Blood Count 7.7 K/mm3 (4.4-11.0)
[2020-09-12 15:38] LABS: ALB/GLOB Ratio 0.9 RATIO (0.9-2.4); AST(SGOT) 14 U/L (15-37); Alanine Aminotransfer ALT/SGPT 20 U/L (13-56); Albumin, Serum 3.5 g/dL (3.2-5.0); Alkaline Phosphatase 130 U/L (45-117); Anion Gap 8 (5-15); BUN 17 mg/dL (7-18); Calcium,Total 9.2 mg/dL (8.5-10.1); Chloride 103 mmol/L (98-107); EST Glomerular Filtration Rate 58 mL/min (>60); Est Glom Filt Rate - Afr Amer 70 mL/min (>60); Globulin 3.9 g/dL (2.2-4.2); Glucose 104 mg/dL (74-106); Potassium 4.1 mmol/L (3.5-5.1); Protein, Total 7.4 g/dL (6.4-8.2); Sodium Level 138 mmol/L (136-145)
== END ==
PROVIDERS: PCP Family Medicine; Referring Provider Internal Medicine Rheumatology; Visit Provider Internal Medicine Rheumatology
DX: M05.70 Rheumatoid arthritis with rheumatoid factor of unspecified site without organ or systems involvement (principal); Z79.899 Other long term (current) drug therapy; M18.12 Unilateral primary osteoarthritis of first carpometacarpal joint, left hand; M21.40 Flat foot [pes planus] (acquired), unspecified foot; H35.30 Unspecified macular degeneration
CPT/HCPCS: 36415; 80053; 85025

== ENCOUNTER 2020-09-19 17:15 | Observation (INO) | payer MEDICARE, SELFPAY ==
[2019-07-08 23:42] VITALS: BMI 45.6
[2020-09-19] VITALS (17 sets, daily range): BP systolic 127–173; BP diastolic 76–96; PULSE 88–117; RESP 16–22; TEMP 36.1–36.8; O2SAT 92–97; BMI 44.4
--- NOTE | 2020-09-19 17:17 | ED.RN ---
CODY ALBA. CONTACT IF NEEDED. BROUGHT PT TO ER. CELL - [phone]
--- NOTE | 2020-09-19 17:18 | EKG12_ITS ---
Test Reason : Blood Pressure : / mmHG Vent. Rate : 111 BPM Atrial Rate : 111 BPM P-R Int : 182 ms QRS Dur : 082 ms QT Int : 330 ms P-R-T Axes : 090 027 053 degrees QTc Int : 448 ms Sinus tachycardia Otherwise normal ECG Confirmed by EDGAR WAGNER, PRESTON ([id number]), non linear editor ANNE MARIE BARLOW ([id number]) on 09/25/2020 1:00:46 PM Referred By: Remington Cortez Confirmed By:LITO HERNÁNDEZ MD
--- NOTE | 2020-09-19 17:23 | CT_ITS ---
STUDY: CT BRAIN WITHOUT CONTRAST REASON FOR EXAM: Female, 74 years old. STROKE RADIATION DOSAGE (If Supplied By Facility): CTDIvol = ( 44.99 ) mGy, DLP = ( 812.98 ) mGycm TECHNIQUE: Transaxial CT imaging of the brain was performed without administration of intravenous contrast material. Individualized dose optimization techniques were used for this CT. COMPARISON: 02/07/2011. FINDINGS: Normal soft tissue structures. Normal calvarium. Moderate atrophy and periventricular white matter ischemic changes.. Normal basal ganglia and thalami. Normal brainstem. Normal cerebellum. There is no intracranial hemorrhage. There are no findings of an acute ischemic infarction. Postsurgical changes left orbit. Normal visualized paranasal sinuses. CT/Brain/Head without Contrast IMPRESSION: Moderate atrophy and periventricular white matter ischemic changes. No evidence for acute bleed. If concern for acute infarct MRI recommended.. Electronically Signed: Dimitrios Bhardwaj MD at 18:02 EST , Service support ,
--- NOTE | 2020-09-19 17:29 | CT_ITS ---
STUDY: CTA HEAD AND NECK WITH CONTRAST REASON FOR EXAM: Female, 74 years old. VISION CHANGES TO LT EYE, STROKE RADIATION DOSAGE (If Supplied By Facility): CTDIvol = ( 18.08 ) mGy, DLP = ( 696.95 ) mGycm TECHNIQUE: CT angiography was performed with a multi-detector CT scanner. Data acquisition was obtained from the skull base through the vertex following intravenous administration of IV 100mL Isovue-370. MIP images were reconstructed from the axial data set. Post-processing of the angiographic images was performed, with multiplanar reformation and 3D reconstruction. Individualized dose optimization techniques were used for this CT. COMPARISON: No relevant priors. FINDINGS: Normal bilateral petrous carotid arteries. Calcified right cavernous carotid artery with a normal supraclinoid bifurcation. Calcified left cavernous carotid artery with a normal supraclinoid bifurcation. Normal right A1 segments of the anterior cerebral artery. Normal left A1 segments of the anterior cerebral artery. Normal intact anterior communicating artery (ACOM). Normal bilateral A2 segments of the anterior cerebral arteries. Normal right M1 and M2 segments of the middle cerebral arteries, with a normal M1 bifurcation. Normal left M1 and M2 segments of the middle cerebral arteries, with a normal M1 bifurcation. Normal right posterior communicating artery (PCOM). Normal left posterior communicating artery (PCOM). Normal bilateral vertebral arteries. Normal basilar artery with a normal basilar bifurcation. The visualized bilateral superior cerebellar (SCA) arteries are normal. Normal left posterior cerebral artery. Nonvisualization of the proximal segment of the right posterior cerebral artery. There is no demonstrated aneurysm of the [place]. AORTIC ARCH: Normal visualized aortic arch. Normal origins of the brachiocephalic, left common carotid, and left subclavian arteries. RIGHT CAROTID ARTERIES: Normal right common carotid artery (CCA). Normal right common carotid bulb. Normal origin of the right internal carotid (ICA) artery without a hemodynamically significant stenosis. Normal visualized cervical portion of the right internal carotid artery.The internal carotid artery has an extremely medial course along the midline of the neck at approximately C2-3 level. Normal origin of the right external carotid artery (ECA). LEFT CAROTID ARTERIES: Normal left common carotid artery (CCA). Moderate calcifications at the left common carotid bulb with approximately 70-75% percent luminal narrowing. Normal origin of the left internal carotid (ICA) artery without a hemodynamically significant stenosis. Normal visualized cervical at the upper cervical levels portion of the left internal carotid artery. The internal carotid artery has an extremely medial course along the midline of the neck at approximately C2-3 level. Normal origin of the left external carotid artery (ECA). VERTEBRAL ARTERIES: Moderate calcification at the left vertebral origin with moderate stenosis. Possible high-grade stenosis at the origin of the right vertebral artery with diffusely decreased caliber. CT/CTA Head AND Neck W/ Contrast IMPRESSION: Moderate calcification at the left vertebral origin with moderate stenosis. Possible high-grade stenosis at the origin of the right vertebral artery with diffusely decreased caliber. Moderate calcifications at the left common carotid bulb with approximately 70-75% percent luminal narrowing. Electronically Signed: Kimani Truong DO at 20:26 EST Tel [phone], Service support ,
[2020-09-19 17:41] LABS: Bedside Glucose 152 mg/dL (70-110)
--- NOTE | 2020-09-19 17:50 | ED.DCSUM_ITS ---
History of Present Illness Chief Complaint: Vision Prob Informant: Patient Narrative: 74-year-old female with past medical history of hypertension, hyperlipidemia presents with concern for left eye blurry vision. Patient presented to [employer] today with concern for vision change in her left eye that began yesterday evening. 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 Denies any other symptoms at this time including numbness, tingling, weakness, headache, neck pain, fever, chills, head injury. Past Medical History - Allergies and Home Meds Allergies/Adverse Reactions: Allergies adhesive Allergy (Verified 11/17/17 17:06) Other amoxicillin trihydrate [From Augmentin] Allergy (Verified 11/17/17 17:06) Unknown latex Allergy (Verified 11/17/17 17:06) Unknown Penicillins Allergy (Verified 11/17/17 17:06) Unknown potassium clavulanate [From Augmentin] Allergy (Verified 11/17/17 17:06) Unknown tetracycline Allergy (Verified 11/17/17 17:06) Unknown Primary Care Physician: Marciano Anaya DO [Primary Care Provider] - Prior records reviewed: Yes Past Medical History: - - HTN and HLD Surgical History: appendectomy, dilatation and curettage, - - Lumbar back surgery with hardware, tonsillectomy, appendectomy, bilateral total knee replacement, bilateral total hip replacement, bilateral total shoulder replacement, right hand surgery specifically with replaced knuckles, cataract surgery. Lives: With Family Smoking Status: Former smoker Alcohol: None Drugs: None - Family History Maternal Family History: Reports: - - Patient notes a maternal family history of hypertension and diabetes. Paternal Family History: Reports: - - Patient notes a paternal family history of prostate cancer. Review of Systems General: Denies: Chills, Fever, Sweats Eyes: Reports: Visual changes - left. Denies: Visual changes - bilaterally, Diplopia ENT: Denies: Rhinorrhea, Sore throat Cardiovascular: Denies: Chest pain, Palpitations Respiratory: Denies: Dyspnea, Cough, Dyspnea on exertion Gastrointestinal: Denies: Abdominal pain, Nausea, Vomiting, Diarrhea, Melena, Hematochezia Genitourinary: Denies: Dysuria, Hematuria, Frequency Musculoskeletal: Denies: Back pain, Extremity Pain Skin: Denies: Rash, Wounds Neurological: Denies: Headache, Weakness, Numbness Physical Exam Vital Signs/Narrative: Vital Signs Temp Pulse Resp BP Pulse Ox 09/19/20 17:34 98.3 F 112 H 18 150/81 H 92 09/19/20 17:16 98.3 F 113 H 18 147/80 H 92 General: Well nourished, Well developed, No Acute Distress Head: Normocephalic, Atraumatic Eyes: Perrl, EOMI ENT: Moist mucous membranes, No rhinorrhea Neck: Supple, Nontender Cardiovascular: Regular rate, Regular rhythm, No murmurs Respiratory: No distress, CTA bilaterally, Chest nontender Abdomen: Soft, Nontender, Nondistended, Normal bowel sounds Back: Nontender, Normal Inspection Extremities: Nontender, No edema Skin: Normal color, No rash Neurological: Alert, Oriented x3, Cranial nerves II-XII grossly intact, Normal Strength, Normal Sensation Psychological: Normal affect, Normal Mood Diagnostic/Tx/Re-eval Chest X-Ray - ED: 1 View, Read by ED Physician, Normal Clinical Impression(s) from Imaging Studies Brain CT 09/19/20 17:23 IMPRESSION: Moderate atrophy and periventricular white matter ischemic changes. No evidence for acute bleed. If concern for acute infarct MRI recommended.. Electronically Signed: Dimitrios Bhardwaj MD at 18:02 EST , Service support , Head/Neck CTA 09/19/20 17:29 IMPRESSION: Moderate calcification at the left vertebral origin with moderate stenosis. Possible high-grade stenosis at the origin of the right vertebral artery with diffusely decreased caliber. Moderate calcifications at the left common carotid bulb with approximately 70-75% percent luminal narrowing. Electronically Signed: Kimani Truong DO at 20:26 EST Tel [phone], Service support , Chest X-Ray 09/19/20 18:31 IMPRESSION: Elevated left hemidiaphragm and discoid atelectasis at left base Electronically Signed: Dimitrios Bhardwaj MD at 19:08 EST , Service support , Laboratory Data 09/19/20 09/19/20 09/19/20 17:28 17:40 17:40 WBC 8.1 RBC 3.83 L Hgb 11.9 L Hct 38.3 MCV 100.0 H MCH 31.1 MCHC 31.1 L RDW Std Deviation 57.4 H RDW Coeff of Espinoza 15.7 H Plt Count 237 MPV 9.4 Immature Gran % (Auto) 0.500 Neut % (Auto) 68.2 Lymph % (Auto) 20.7 Jasper % (Auto) 6.6 Eos % (Auto) 3.3 Baso % (Auto) 0.7 Absolute Neuts (auto) 5.5 Absolute Lymphs (auto) 1.67 Nucleated RBC % 0 PT 13.4 INR 1.1 APTT 29.1 Sodium Potassium Chloride Carbon Dioxide Anion Gap BUN Creatinine Estim Creat Clear Calc Est GFR (MDRD) Af Amer Est GFR (MDRD) Non-Af BUN/Creatinine Ratio Glucose Calcium Troponin I POC Glucose 152 H 09/19/20 17:40 WBC RBC Hgb Hct MCV MCH MCHC RDW Std Deviation RDW Coeff of Espinoza Plt Count MPV Immature Gran % (Auto) Neut % (Auto) Lymph % (Auto) Jasper % (Auto) Eos % (Auto) Baso % (Auto) Absolute Neuts (auto) Absolute Lymphs (auto) Nucleated RBC % PT INR APTT Sodium 140 Potassium 3.9 Chloride 103 Carbon Dioxide 32.0 Anion Gap 5 BUN 15 Creatinine 0.99 Estim Creat Clear Calc 46.67 Est GFR (MDRD) Af Amer 70 Est GFR (MDRD) Non-Af 58 L BUN/Creatinine Ratio 15.1 Glucose 146 H Calcium 9.6 Troponin I < 0.015 POC Glucose - Rhythm Strip Rhythm Strip: Sinus Tach Rate: 111 Ectopy: None - EKG Initial EKG Interpretation: Sinus Tachycardia - Is tachycardia at 111 bpm. [place] interval 182 ms. QTC of 448 ms. No evidence of ST elevation or depression at this time. - Medical Decision Making Patient peers well and nontoxic. No visual field cut at this time. Patient does have blurry vision in the left eye. CT brain without contrast shows no acute process. Lab work otherwise within normal limits other than chronic anemia. CTA was done which shows carotid artery stenosis as well as vertebral artery stenosis. No LVO. Patient was seen by teleneurologist who advised high- dose Ativan, full dose aspirin, echo, and MRI. Patient will also need to be seen by vascular surgery at some point given her carotid artery stenosis. Patient is having resolution of her symptoms. Patient was given aspirin in the emergency department. Patient will be admitted for further treatment and management. Impression: 1. Left eye vision change ED Disposition - Plan for ED Patient: Disposition: Acute Care Hospital [facility] Referrals: Marciano Anaya DO [Primary Care Provider] -
[2020-09-19 17:51] LABS: Absolute Lymphocyte Count 1.67 X10^3/uL (0.83-4.51); Absolute Neutrophil Count 5.5 X10^3/uL (2.0-7.7); Basophil# 0.06 X10^3/uL; Basophil% 0.7 % (0-1); Eosinophil# 0.27 X10^3/uL; Eosinophils% 3.3 % (0-5); Hematocrit 38.3 % (37-47); Hemoglobin 11.9 g/dL (12.0-15.0); Lymphocyte # 1.67 X10^3/ul (4.0); Lymphocyte % 20.7 % (19-41); Mean Corp Hgb Conc 31.1 g/dL (32-36); Mean Corpuscular Hgb 31.1 pg (27.0-32.0); Mean Platelet Vol. 9.4 fl (6.2-12.0); Monocyte# 0.53 X10^3/uL; Monocyte% 6.6 % (0-10); NRBC Flagged by Analyzer 0 % (0-5); Neutrophil # 5.49 X10^3/uL (2.7-7.7); Neutrophil % 68.2 % (47-70); Platelet Count 237 K/mm3 (150-450); RBC Distribution Width CV 15.7 % (11.6-14.6); RBC Distribution Width SD 57.4 fl (35.1-43.9); Red Blood Count 3.83 M/mm3 (4.2-5.4); White Blood Count 8.1 K/mm3 (4.4-11.0)
[2020-09-19 18:07] LABS: International Normalized Ratio 1.1; Partial Thromboplast Time 29.1 Seconds (24.1-36.2); Prothrombin Time (Protime)PT. 13.4 SECONDS (11.7-14.9)
[2020-09-19 18:12] LABS: Anion Gap 5 (5-15); BUN 15 mg/dL (7-18); BUN/Creat Ratio 15.1 RATIO (10-20); Calcium,Total 9.6 mg/dL (8.5-10.1); Chloride 103 mmol/L (98-107); Creatinine, Serum 0.99 mg/dL (0.55-1.02); EST Glomerular Filtration Rate 58 mL/min (>60); Est Glom Filt Rate - Afr Amer 70 mL/min (>60); Estimated Creatinine Clearance 46.67 ml/min; Glucose 146 mg/dL (74-106); Potassium 3.9 mmol/L (3.5-5.1); Sodium Level 140 mmol/L (136-145)
--- NOTE | 2020-09-19 18:31 | RAD_ITS ---
STUDY: X-RAY CHEST REASON FOR EXAM: Female, 74 years old. PT C/O VISION CHANGES TO LEFT EYE, PT REPORTED HAVING PROBLEMS SINCE 1800 LAST HS. PT WENT TO EYE DOCTOR TODAY AND SENT TO [facility]. TECHNIQUE: AP portable COMPARISON: 10/10/2016 FINDINGS: Elevated left hemidiaphragm and discoid atelectasis at left base.. There is no demonstrated pleural abnormality. Heart is mildly enlarged.. Normal mediastinum and evelyn. Normal visualized pulmonary arteries. Mildly calcified aortic arch and descending thoracic aorta. Dorsal spine demonstrates degenerative change. Normal visualized ribs, and clavicles. Bilateral shoulder prostheses are noted. There is no demonstrated abnormality of the visualized soft tissue structures of the upper abdomen. RAD/Chest 1 View IMPRESSION: Elevated left hemidiaphragm and discoid atelectasis at left base Electronically Signed: Dimitrios Bhardwaj MD at 19:08 EST , Service support ,
[2020-09-19] MEDS: Aspirin 81 MG TAB.CHEW 324 MG PO (22:11)
--- NOTE | 2020-09-19 23:33 | HP.PCM_ITS ---
Problem List (1) Morbid obesity Status: Chronic (2) HLD (hyperlipidemia) Status: Chronic Qualifiers: Hyperlipidemia type: unspecified Qualified Code(s): E78.5 - Hyperlipidemia, unspecified (3) Asthma Status: Chronic Qualifiers: Asthma severity: unspecified severity Asthma persistence: unspecified Asthma complication type: unspecified Qualified Code(s): J45.909 - Unspecified asthma, uncomplicated (4) Anxiety and depression Status: Chronic (5) Chronic pain syndrome Status: Chronic (6) Morbid obesity with BMI of 40.0-44.9, adult Status: Chronic (7) Hypertension Status: Chronic Qualifiers: Hypertension type: essential hypertension Qualified Code(s): I10 - Essential (primary) hypertension (8) 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 Patient report her symptoms started at about 6 PM on 09/18/2020. She described her symptoms as a cloud over her left eye. She went to see her director of elementary education who referred her to an jacquard twine polisher operator. She saw both the director of elementary education and jacquard twine polisher operator on the day of presentation which was 09/19/2020. The jacquard twine polisher operator thought that patient may have a clogged veins so patient was instructed come to the emergency department. 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, dr panfilo gill History of rheumatoid arthritis (Chronic) Allergies adhesive Allergy (Verified 11/17/17 17:06) Other amoxicillin trihydrate [From Augmentin] Allergy (Verified 11/17/17 17:06) Unknown latex Allergy (Verified 11/17/17 17:06) Unknown Penicillins Allergy (Verified 01/08/18 17:06) Unknown potassium clavulanate [From Augmentin] Allergy (Verified 11/17/17 17:06) Unknown tetracycline Allergy (Verified 11/17/17 17:06) Unknown Home Medications: Ambulatory Orders Medication Instructions Recorded Albuterol IH (ProAir) [Proair Hfa] 1 - 2 puff INHALATION Q6H PRN PRN 03/15/15 Hydrochlorothiazide [Hctz] 25 mg PO DAILY 03/15/15 Methotrexate 20 mg PO MO 03/15/15 Folic Acid 1 mg PO DAILY@0800 #0 tablet 03/29/15 Losartan Potassium [Cozaar] 50 mg PO DAILY #30 tablet 03/29/15 Oxycodone HCl/Acetaminophen 1 tablet PO TID 11/17/17 [Percocet 5-325] Prednisone 10 mg PO PRN PRN 07/07/19 Sulfasalazine 1,000 mg PO BID 07/07/19 Venlafaxine HCl [Venlafaxine HCl 150 mg PO DAILY 07/07/19 ER] Vit A/Vit C/Vit E/Zinc/Copper 1 tab PO DAILY 07/07/19 [Preservision Areds Tablet] Atorvastatin Calcium [Lipitor] 20 mg PO DAILY 09/19/20 Clonazepam [Klonopin] 1 mg PO QHS 09/19/20 Levothyroxine Sodium [Synthroid] 50 mcg PO DAILY 09/19/20 Magnesium Oxide [Magnesium] 400 mg PO DAILY 09/19/20 Surgical History: appendectomy, dilatation and curettage, - - Lumbar back surgery with hardware, tonsillectomy, appendectomy, bilateral total knee replacement, bilateral total hip replacement, bilateral total shoulder replacement, right hand surgery specifically with replaced knuckles, cataract surgery. 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 Paternal History Items: - - Patient notes a paternal family history of prostate cancer. Review of Systems Constitutional: Denies: Chills, Fever, Weight Change HEENT: Denies: Head Aches, Sinus Congestion, Sinus Drainage Cardiovascular: Denies: Chest Pain, Palpitations Respiratory: Denies: Cough, Shortness of breath at rest, Sputum production Gastrointestinal: Denies: Abdominal Pain, Nausea, Vomiting Genitourinary: Denies: Dysuria Musculoskeletal: Denies: Joint Pain, Joint Tenderness Skin: Denies: Rash, Wounds Neurological: Reports: Blurred vision. Denies: Focal weakness, Numbness, Tingling Psychiatric: Denies: Anxiety, Depression, Homicidal Ideations, Suicidal Ideations Hematologic/ Lymphatic: Denies: Easy Bruising, Easy Bleeding VTE Information - Inpt Only VTE Present on Admission: No VTE Mechan Device Prophylaxis: None VTE Pharm Prophylaxis ordered?: Yes Patient Problems: Active and Suspected Problems Vision disturbance (Acute) - Physical Exam Vitals/I&O's: Vital Signs Temp Pulse Resp BP Pulse Ox 98.3 F 94 18 164/93 H 94 09/19/20 17:34 09/19/20 22:30 09/19/20 22:30 09/19/20 22:30 09/19/20 22:30 Oxygen Delivery Method Room Air Weight: 125 kg Body Mass Index (BMI) 44.4 Finger Stick Blood Glucose 152 General: Alert, Oriented x3, Cooperative HEENT: Atraumatic, PERRLA, EOMI, Normocephalic Neck: Supple, No JVD, Negative Carotid Bruits Lungs: Clear to auscultation, Normal air movement Cardiovascular: Regular rate, No murmurs Abdomen: Bowel Sounds Present, Soft, Non Tender Extremities: No edema, Capillary Refill Less than 3 Seconds Skin: No rashes, No breakdown Musculoskeletal: No Tenderness to Palpation of Joints or Extremities Neurological: Cranial nerves II-XII grossly intact - Can count fingers with each eye separately., Deep Tendon Reflexes 2+/4 and Symmetrical, Motor Exam 5/5 strength throughout Psych/Mental Status: Normal Affect, Appropriate Laboratory Results 09/19/20 17:28: POC Glucose 152 H 09/19/20 17:40: WBC 8.1, RBC 3.83 L, Hgb 11.9 L, Hct 38.3, MCV 100.0 H, MCH 31.1, MCHC 31.1 L, RDW Std Deviation 57.4 H, RDW Coeff of Espinoza 15.7 H, Plt Count 237, MPV 9.4, Immature Gran % (Auto) 0.500, Neut % (Auto) 68.2, Lymph % (Auto) 20.7, Snyder % (Auto) 6.6, Eos % (Auto) 3.3, Baso % (Auto) 0.7, Absolute Neuts (auto) 5.5, Absolute Lymphs (auto) 1.67, Nucleated RBC % 0 09/19/20 17:40: PT 13.4, INR 1.1, APTT 29.1 09/19/20 17:40: Sodium 140, Potassium 3.9, Chloride 103, Carbon Dioxide 32.0, Anion Gap 5, BUN 15, Creatinine 0.99, Estim Creat Clear Calc 46.67, Est GFR (MDRD) Af Amer 70, Est GFR (MDRD) Non-Af 58 L, BUN/Creatinine Ratio 15.1, Glucose 146 H, Calcium 9.6, Troponin I < 0.015 Assessment/Plan All Active Problems Vision disturbance (Acute) Vision Disturbance CT of the head with no acute abnormality. -Check Hba1c, Lipid level Emergent department doctor discussed the case with the neurologist who recommended MRI; echocardiogram; full dose aspirin and high intensity statin. Ordered as recommended. Patient is on atorvastatin 20 mg nightly; will change to 40 mg nightly. Physical therapy, occupational therapy and to work with patient. N.p.o. until bedside swallow eval. Permissive hypertension. Control blood pressure with labetalol for systolic blood pressure of more than 220 or diastolic blood pressure of more than 120. MRI/ head ordered Head and neck CTA history: s remarkable for a stenosis of carotid artery and vertebral artery. Stroke neurologist recommended a vascular follow-up in due course. Hypertension On home hydrochlorothiazide; and losartan. Hold for permissive hypertension. PRN Labetalol as above. Hypothyroidism Synthroid continued Rheumatoid arthritis Percocet; methotrexate; and Sulfasalazine continued. On home prednisone as needed. Macular degeneration Preservation continued. Depression/anxiety Venlafaxine continued Klonopin continued. History of asthma Stable As needed albuterol continued. DVT prophylaxis Subcutaneous Lovenox. OBSV E&M: 32052 Initial observation care L2
--- NOTE | 2020-09-19 23:48 | ED.RN ---
pt's niece Yuko at [phone] was informed of pt's room assignment [id number] and to call the nurses station at [phone] for updates. Betsy granted verbal permission to update Yuko.
[2020-09-20] VITALS (9 sets, daily range): BP systolic 134–195; BP diastolic 72–101; PULSE 74–98; RESP 17–18; TEMP 36.4–37.1; O2SAT 91–94; BMI 44.1; BMI 44.2
--- NOTE | 2020-09-20 00:02 | MRI_ITS ---
STUDY: MRI BRAIN WITHOUT CONTRAST REASON FOR EXAM: Female, 74 years old. CVA, DECREASED VISION LEFT EYE TECHNIQUE: Standardized multiplanar fat and water weighted pulse sequences were obtained. COMPARISON: 09/19/2020 CT of the head FINDINGS: There is mild cerebral atrophy with widening of the extra-axial spaces and ventricular dilatation. There are multiple white matter hyperintensities, distributed throughout the deep white matter tracts of the cerebral hemispheres, consistent with moderate chronic white matter ischemic changes. Normal bilateral basal ganglia. Normal thalami. There is no extra-axial fluid accumulation. Normal flow voids within the major intracranial circulation suggesting patency by spin echo criteria. Normal sella turcica, pituitary gland, infundibular stalk, optic chiasm and hypothalamus. Normal tectal plate and pineal gland. There are chronic white matter ischemic changes of the sun. The midbrain and medulla are otherwise normal. Normal cerebellum. MRI/Brain without Contrast IMPRESSION: No acute intracranial abnormality. Moderate chronic microvascular ischemic changes. Electronically Signed: Jyoti Lima MD at 11:49 EST Tel , Service support ,
--- NOTE | 2020-09-20 00:02 | ECHOD_ITS ---
Reason For Study: TIA/CVA Procedure This was a 2D Doppler, Color Flow transthoracic echocardiogram. The study was technically difficult. Due to obesity. Exam performed portable in patient room. Left Ventricle Normal LV size. Left ventricular systolic function is normal. The estimated ejection fraction is 65 %. Stage 1 diastolic dysfunction. No regional wall motion abnormalities noted. Right Ventricle Normal RV size. Normal systolic function. Atria Normal left atrium. Normal right atrium. Bubble contrast study negative for right to left interatrial shunt. Mitral Valve Normal mitral valve. Tricuspid Valve Normal tricuspid valve. Aortic Valve Normal aortic valve. Pulmonic Valve Normal pulmonic valve. Great Vessels Normal aortic root. The pulmonary artery is normal size. Normal inferior vena cava. Pericardium/Pleural No pericardial effusion. Medication Performed a rapid injection of agitated mix of 9 cc saline and 1cc air to assess for atrial septal defect. MMode/2D Measurements & Calculations LVIDd: 4.9 cm IVSd: 1.0 cm Ao root diam: 3.1 cm LVIDs: 3.6 cm LVPWd: 1.1 cm FS: 25.4 % LAV(MOD-bp): 78.6 ml LA A4 area: 23.4 cm2 LA dimension(2D): 3.8 cm LAV(MOD-bp) Indexed: 34.8 ml/m2 LAV(MOD-sp2): 71.4 ml LAV(MOD-sp4): 79.3 ml Time Measurements MV dec time: 0.22 sec Doppler Measurements & Calculations MV E max betito: 88.7 cm/sec Lat Peak E' Betito: 8.0 cm/sec Med Peak E' Betito: 8.5 cm/sec MV A max betito: 101.9 cm/sec E/E' lat: 11.1 E/E' med: 10.4 MV E/A: 0.87 Ao V2 max: 191.1 cm/sec LV V1 max: 105.9 cm/sec Ao max P.6 mmHg LV V1 max P.5 mmHg Interpretation Summary Normal LV size. Left ventricular systolic function is normal. The estimated ejection fraction is 65 %. Stage 1 diastolic dysfunction. Bubble contrast study negative for right to left interatrial shunt. Ordering Physician: Remington Cortez Referring Physician: Marciano Anaya Performed By: Kenna Kasper, RDCS, RVT
[2020-09-20] MEDS: Atorvastatin Calcium 40 MG Tablet PO (01:01)
[2020-09-20] MEDS: oxyCODONE 5 MG Tablet PO ×2 (05:41→13:34)
[2020-09-20] MEDS: Levothyroxine 50 MCG Tablet PO (05:41)
[2020-09-20 06:53] LABS: Cholesterol 185 mg/dL (200); High Density Lipoprotein 45 mg/dL; Triglycerides 163 mg/dL; Very Low Density Lipoprotein 33 mg/dL (5-40)
[2020-09-20 08:14] LABS: Hemoglobin A1c 5.8 % (3.8-5.6)
--- NOTE | 2020-09-20 08:20 | CDU_ITS ---
Reason For Study: STROKE Rt. Velocities/BP Lt. Velocities/BP Prox CCA 110/13 cm/sec. Prox CCA 102/19 cm/sec. Mid CCA 93/18 cm/sec. Mid CCA 131/19 cm/sec. Dist CCA 70/14 cm/sec. Dist CCA 124/21 cm/sec. Prox ICA 74/15 cm/sec. Prox ICA 109/8 cm/sec. Mid ICA 86/23 cm/sec. Mid ICA 74/18 cm/sec. Dist ICA 78/20 cm/sec. Dist ICA 91/14 cm/sec. Rt. ICA/CCA = .9. Lt. ICA/CCA = .9. Prox ECA 100/5 cm/sec. Prox ECA 109/10 cm/sec. Rt. Vert. 63/8 cm/sec. Lt. Vert. 92/21 cm/sec. Right Extracranial There is homogeneous, smooth atherosclerotic plaque noted in the right common carotid artery. There is homogeneous, smooth atherosclerotic plaque noted in the right internal carotid artery. There is homogeneous, smooth atherosclerotic plaque noted in the right external carotid artery. Antegrade flow is noted in the right vertebral artery. There is no significant atherosclerotic plaque noted in the right bulb. Left Extracranial There is homogeneous, smooth atherosclerotic plaque noted in the left common carotid artery. There is heterogeneous, irregular atherosclerotic plaque noted in the left internal carotid artery. There is heterogeneous, irregular atherosclerotic plaque noted in the left external carotid artery. The left external carotid artery is not well visualized. Antegrade flow is noted in the left vertebral artery. There is heterogeneous, irregular atherosclerotic plaque noted in the left bulb. Procedure Carotid Duplex [id number]. The study was technically difficult. Exam performed portable in patient room. Interpretation Summary Minimal smooth plaque of the proximal right internal carotid artery with less than 50% stenosis Less than 50% stenosis right external carotid Irregular plaque at the proximal left internal carotid with less than 50% stenosis Less than 50% stenosis left external carotid Patent and antegrade vertebrals bilaterally Ordering Physician: Courtney Rader Referring Physician: GAVI MATHIS Performed By: Kaitlynn Abreu, SHELLEY, RVT
[2020-09-20 08:32] LABS: Magnesium 2.1 mg/dL (1.6-2.6)
[2020-09-20] MEDS: Venlafaxine XR 150 MG Capsule PO (08:34)
[2020-09-20] MEDS: sulfaSALAzine 500 MG Tablet 1000 MG PO (08:34)
[2020-09-20] MEDS: Folic Acid 1 MG Tablet PO (08:35)
[2020-09-20] MEDS: Aspirin 325 MG Tablet PO (08:35)
[2020-09-20] MEDS: Multivitamin (Healthy Eyes) Capsule 1 CAP PO (08:35)
[2020-09-20] MEDS: Magnesium Chloride 64 MG Delay Rel.Tablet 128 MG PO (08:35)
[2020-09-20] MEDS: Enoxaparin 40 MG/0.4 ML Syringe SC (08:35)
[2020-09-20 08:48] LABS: T4 Free Direct 0.99 ng/dL (0.76-1.46); Thyroid Stim Hormone (TSH) 7.11 uIU/mL (0.358-3.74)
--- NOTE | 2020-09-20 14:20 | DCINST_ITS ---
- Discharge Diagnoses Current Active Problems: Current Active and Chronic Problems Vision disturbance (Acute) Morbid obesity (Chronic) HLD (hyperlipidemia) (Chronic) Asthma (Chronic) Anxiety and depression (Chronic) Chronic pain syndrome (Chronic) Morbid obesity with BMI of 40.0-44.9, adult (Chronic) Hypertension (Chronic) Status post reverse total replacement of right shoulder (Chronic) 03/13/15, [facility], dr whittaker History of rheumatoid arthritis (Chronic) You will use the following diet at home:: Cardiac Discharge Activity: Return to Normal Activity Call your doctor if you observe: Shortness of breath, Dizziness, Fainting spells, Chest pain Allergies/Adverse Reactions: Allergies adhesive Allergy (Verified 09/20/20 00:07) Other amoxicillin trihydrate [From Augmentin] Allergy (Verified 09/20/20 00:07) Unknown latex Allergy (Verified 09/20/20 00:07) Unknown Penicillins Allergy (Verified 09/20/20 00:07) Unknown potassium clavulanate [From Augmentin] Allergy (Verified 09/20/20 00:07) Unknown tetracycline Allergy (Verified 09/20/20 00:07) Unknown Medications to take at Discharge Albuterol IH (ProAir) [Proair Hfa] 1 - 2 puff INHALATION Q6H PRN PRN 03/15/15 Hydrochlorothiazide [Hctz] 25 mg PO DAILY 03/15/15 Methotrexate 20 mg PO MO 03/15/15 Folic Acid 1 mg PO DAILY@0800 #0 tablet 03/29/15 Losartan Potassium [Cozaar] 50 mg PO DAILY #30 tablet 03/29/15 Oxycodone HCl/Acetaminophen [Percocet 5-325] 1 tablet PO TID 11/17/17 Prednisone 10 mg PO PRN PRN 07/07/19 Sulfasalazine 1,000 mg PO BID 07/07/19 Venlafaxine HCl [Venlafaxine HCl ER] 150 mg PO DAILY 07/07/19 Vit A/Vit C/Vit E/Zinc/Copper [Preservision Areds Tablet] 1 tab PO DAILY 07/07/19 Atorvastatin Calcium [Lipitor] 20 mg PO DAILY 09/19/20 Clonazepam [Klonopin] 1 mg PO QHS 09/19/20 Levothyroxine Sodium [Synthroid] 50 mcg PO DAILY 09/19/20 Magnesium Oxide [Magnesium] 400 mg PO DAILY 09/19/20 Aspirin E.C. [Ecotrin] 81 mg PO DAILY@0800 #30 tab 09/20/20 The following prescriptions were given: Aspirin E.C. [Ecotrin] 81 mg PO DAILY@0800 #30 tab Transmission Status: Pending to [facility] Primary Care Physician: Marciano Anaya DO [Primary Care Provider] - Please follow up with your Primary Care Physician in: 1 Week Test Results: Test results from this visit will be discussed in further detail at your follow- up appointment, if applicable. Please Follow Up With: Dimitrios Lopez MD When: 3-5 Days Please Follow Up With: Eriberto Aceves MD When: Call for appt Proposed Discharge Date: 09/20/20
--- NOTE | 2020-09-20 14:21 | DS.PCM_ITS ---
Discharge Date and Diagnosis - Problem List Patient Problems: Active and Suspected Problems Vision disturbance (Acute) Date of Admission: 09/19/20 Date of Discharge: 09/20/20 - Primary Discharge Diagnosis Acute Problems: Active Problems 1. Visual disturbance, CVA ruled out 2. Macular degeneration 3. Carotid stenosis 4. Hypertension 5. Hyperlipidemia 6. Hypothyroidism 7. Rheumatoid arthritis 8. Anxiety/depression 9. 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 No evidence for acute bleed. If concern for acute infarct MRI recommended.. Electronically Signed: Dimitrios Bhardwaj MD at 18:02 EST , Service support , Head/Neck CTA 09/19/20 17:29 IMPRESSION: Moderate calcification at the left vertebral origin with moderate stenosis. Possible high-grade stenosis at the origin of the right vertebral artery with diffusely decreased caliber. Moderate calcifications at the left common carotid bulb with approximately 70-75% percent luminal narrowing. Electronically Signed: Kimani Truong DO at 20:26 EST Tel [phone], Service support , Chest X-Ray 09/19/20 18:31 IMPRESSION: Elevated left hemidiaphragm and discoid atelectasis at left base Electronically Signed: Dimitrios Bhardwaj MD at 19:08 EST , Service support , Brain MRI 09/20/20 00:02 IMPRESSION: No acute intracranial abnormality. Moderate chronic microvascular ischemic changes. Electronically Signed: Jyoti Lima MD at 11:49 EST Tel , Service support , [facility] [place] Procedures: 2-D Echocardiogram Summary of Care Provided: The patient is a 74 year old F admitted 09/19/2020 due to left eye blurriness. 1. Visual disturbance, CVA ruled out-MRI of brain without acute abnormality. Moderate chronic microvascular ischemic changes. Echocardiogram demonstrates an EF 65%, stage I diastolic dysfunction. CTA of neck noted below. Continue aspirin, statin. Continue follow-up with ophthalmology. 2. Macular gmnirqqkxyxp-kaabbt-te with ophthalmology. 3. Carotid stenosis-CTA of head and neck shows moderate stenosis left vertebral with possible high-grade stenosis of the right vertebral artery. Moderate calcifications at the left common carotid bulb with approximately 70 to 75% luminal narrowing. Carotid ultrasound ordered for further evaluation. Continue aspirin, statin. Referred to vascular surgery. We will follow up with carotid ultrasound results. 4. Hypertension-stable, continue losartan, HCTZ. 5. Hyperlipidemia- continue statin. 6. Hypothyroidism- continue synthroid. 7. Rheumatoid arthritis-on methotrexate. 8. Anxiety/depression-on clonazepam, venlafaxine. 9. History of asthma-as needed albuterol inhaler. Patient seen and examined prior to discharge. Physical assessment as noted below. Patient is stable for discharge with follow up recommendations as noted above. This patient was seen by FAUSTO Lee under the supervision of Dr. Rader. Patient Problems: Active and Suspected Problems Vision disturbance (Acute) - Physical Exam Vitals/I&O's: Vital Signs Temp Pulse Resp BP Pulse Ox 97.5 F L 86 18 134/82 H 93 09/20/20 08:20 09/20/20 08:20 09/20/20 08:20 09/20/20 08:20 09/20/20 08:20 Oxygen Flow Rate (L/min) 2.5 Oxygen Delivery Method Room Air Weight: 273 lb 13.026 oz Body Mass Index (BMI) 44.1 Finger Stick Blood Glucose 152 Intake and Output for Last 24 Hours 09/18/20 09/19/20 09/20/20 23:59 23:59 23:59 Intake Total 200 / 200 Output Total 2 / 2 Balance 198 / 198 General: Alert, Oriented x3, Cooperative HEENT: Atraumatic, PERRLA, EOMI, Normocephalic, - - Subjective left eye blurriness Neck: Supple, No JVD, Negative Carotid Bruits Lungs: Clear to auscultation, Normal air movement Cardiovascular: Regular rate, No murmurs Abdomen: Bowel Sounds Present, Soft, Non Tender, Non-Distended Extremities: No clubbing, No cyanosis, No edema, Capillary Refill Less than 3 Seconds Skin: No rashes, No breakdown Musculoskeletal: No Tenderness to Palpation of Joints or Extremities Neurological: Cranial nerves II-XII grossly intact, Neuro grossly intact Psych/Mental Status: Normal Affect, Appropriate Laboratory Results 09/19/20 17:28: POC Glucose 152 H 09/19/20 17:40: WBC 8.1, RBC 3.83 L, Hgb 11.9 L, Hct 38.3, MCV 100.0 H, MCH 31.1, MCHC 31.1 L, RDW Std Deviation 57.4 H, RDW Coeff of Espinoza 15.7 H, Plt Count 237, MPV 9.4, Immature Gran % (Auto) 0.500, Neut % (Auto) 68.2, Lymph % (Auto) 20.7, Gray % (Auto) 6.6, Eos % (Auto) 3.3, Baso % (Auto) 0.7, Absolute Neuts (auto) 5.5, Absolute Lymphs (auto) 1.67, Nucleated RBC % 0 09/19/20 17:40: PT 13.4, INR 1.1, APTT 29.1 09/19/20 17:40: Sodium 140, Potassium 3.9, Chloride 103, Carbon Dioxide 32.0, Anion Gap 5, BUN 15, Creatinine 0.99, Estim Creat Clear Calc 46.67, Est GFR (MDRD) Af Amer 70, Est GFR (MDRD) Non-Af 58 L, BUN/Creatinine Ratio 15.1, Glucose 146 H, Calcium 9.6, Troponin I < 0.015 09/20/20 05:10: Triglycerides 163, Cholesterol 185, LDL Cholesterol 107, VLDL Cholesterol 33, HDL Cholesterol 45 09/20/20 05:10: Hemoglobin A1c 5.8 H 09/20/20 05:10: TSH 7.11 H, Free T4 0.99 09/20/20 05:10: Magnesium 2.1 Current Medications Albuterol Sulfate (Albuterol 2.5 Mg/3 Ml Vial.Neb.) 2.5 mg INHALATION Q2H PRN PRN PRN Reason: SOB/Wheezing Aspirin (Aspirin 325 Mg Tablet) 325 mg PO DAILY@0800 [facility] Last Admin: 09/20/20 08:35 Dose: 325 mg Documented by: Atorvastatin Calcium (Atorvastatin Calcium 40 Mg Tablet) 40 mg PO QHS [facility] Last Admin: 09/20/20 01:01 Dose: 40 mg Documented by: Clonazepam (Clonazepam 1 Mg Tablet) 1 mg PO QHS [facility] Enoxaparin Sodium (Enoxaparin 40 Mg/0.4 Ml Syringe) 40 mg SC DAILY [facility] Last Admin: 09/20/20 08:35 Dose: 40 mg Documented by: Folic Acid (Folic Acid 1 Mg Tablet) 1 mg PO DAILY@0800 [facility] Last Admin: 09/20/20 08:35 Dose: 1 mg Documented by: Hydralazine HCl (Hydralazine 20 Mg/Ml Vial) 5 mg IV Q30M PRN PRN Reason: to maintain BP goals Sodium Chloride () 250 mls @ 15 mls/hr IV .[id number] PRN PRN Reason: Saline Flush Sodium Chloride () 250 mls @ 15 mls/hr IV .[id number] PRN PRN Reason: Additional IVPB Infusion Labetalol HCl (Labetalol (Prefilled) 20 Mg/4 Ml) 10 - 20 mg IV Q10M PRN PRN PRN Reason: to Maintain BP Goals Levothyroxine Sodium (Levothyroxine 50 Mcg Tablet) 50 mcg PO DAILY@0600 [facility] Last Admin: 09/20/20 05:41 Dose: 50 mcg Documented by: Magnesium Chloride (Magnesium Chloride 64 Mg Delay Rel.Tablet) 128 mg PO DAILY [facility] Last Admin: 09/20/20 08:35 Dose: 128 mg Documented by: Melatonin (Melatonin 3 Mg Tablet) 3 mg PO QHS PRN PRN PRN Reason: INSOMNIA Methotrexate (Methotrexate 2.5 Mg Tablet) 20 mg PO MO [facility] Multivitamins/Minerals (Multivitamin (Healthy Eyes) Capsule) 1 capsule PO DAILY [facility] Last Admin: 09/20/20 08:35 Dose: 1 capsule Documented by: Ondansetron HCl (Ondansetron 4 Mg/2 Ml Vial) 4 mg IV Q8H PRN PRN PRN Reason: NAUSEA/VOMITING Oxycodone HCl (Oxycodone 5 Mg Tablet) 5 mg PO TID [facility] Last Admin: 09/20/20 13:34 Dose: 5 mg Documented by: Sodium Chloride (0.9% Saline Lock 10 Ml Syringe) 10 - 40 ml IV UD PRN PRN Reason: SALINE FLUSH Sulfasalazine (Sulfasalazine 500 Mg Tablet) 1,000 mg PO BID [facility] Last Admin: 09/20/20 08:34 Dose: 1,000 mg Documented by: Venlafaxine HCl (Venlafaxine Xr 150 Mg Capsule) 150 mg PO DAILY [facility] Last Admin: 09/20/20 08:34 Dose: 150 mg Documented by: Discharge Diet: No Restrictions Discharge Activity: Return to Normal Activity Call your doctor if you observe: Shortness of breath, Dizziness, Fainting spells, Chest pain Home Medications: Medications to take at Discharge Albuterol IH (ProAir) [Proair Hfa] 1 - 2 puff INHALATION Q6H PRN PRN 03/15/15 Hydrochlorothiazide [Hctz] 25 mg PO DAILY 03/15/15 Methotrexate 20 mg PO MO 03/15/15 Folic Acid 1 mg PO DAILY@0800 #0 tablet 03/29/15 Losartan Potassium [Cozaar] 50 mg PO DAILY #30 tablet 03/29/15 Oxycodone HCl/Acetaminophen [Percocet 5-325] 1 tablet PO TID 11/17/17 Prednisone 10 mg PO PRN PRN 07/07/19 Sulfasalazine 1,000 mg PO BID 07/07/19 Venlafaxine HCl [Venlafaxine HCl ER] 150 mg PO DAILY 07/07/19 Vit A/Vit C/Vit E/Zinc/Copper [Preservision Areds Tablet] 1 tab PO DAILY 07/07/19 Atorvastatin Calcium [Lipitor] 20 mg PO DAILY 09/19/20 Clonazepam [Klonopin] 1 mg PO QHS 09/19/20 Levothyroxine Sodium [Synthroid] 50 mcg PO DAILY 09/19/20 Magnesium Oxide [Magnesium] 400 mg PO DAILY 09/19/20 Aspirin E.C. [Ecotrin] 81 mg PO DAILY@0800 #30 tab 09/20/20 Following Prescriptions Were Given to Patient: Aspirin E.C. [Ecotrin] 81 mg PO DAILY@0800 #30 tab Transmission Status: Pending to [facility] #30 Primary Care Physician: Marciano Anaya DO [Primary Care Provider] - Please follow up with your Primary Care Physician in: 1 Week Please Follow Up With: Dimitrios Lopez MD When: 3-5 Days Please Follow Up With: Eriberto Aceves MD When: Call for appt Disposition: Home Minutes spent on discharge:: 35 Patient Condition:: Stable Medical Necessity - Tobacco Use Smoking Status: Former smoker Meaningful Use Info Meaningful Use Diagnoses (Choose all that apply): None applicable
== END 2020-09-20 14:21 | disposition home or self-care (01) ==
LOC: ED 17:17 → PCU 23:22
PROVIDERS: Admitting Provider Hospitalist; Emergency Provider Emergency Medicine; PCP Family Medicine; Referring Provider Hospitalist; Visit Provider Family Medicine
DX: H53.8 Other visual disturbances (principal); H35.30 Unspecified macular degeneration; E78.5 Hyperlipidemia, unspecified; I10 Essential (primary) hypertension; J45.909 Unspecified asthma, uncomplicated; F41.9 Anxiety disorder, unspecified; F32.9 Major depressive disorder, single episode, unspecified; M06.9 Rheumatoid arthritis, unspecified; E03.9 Hypothyroidism, unspecified; R00.0 Tachycardia, unspecified; E66.01 Morbid (severe) obesity due to excess calories; G89.4 Chronic pain syndrome; Z79.899 Other long term (current) drug therapy; Z68.41 Body mass index [BMI] 40.0-44.9, adult; H54.8 Legal blindness, as defined in USA; Z87.891 Personal history of nicotine dependence; H34.9 Unspecified retinal vascular occlusion
CPT/HCPCS: 70450; 70496; 70498; 70551; 71045; 80048; 80061; 82962; 83036; 83735; 84439; 84443; 84484; 85025; 85610; 85730; 93005; 93306; 93880; 94762; 96372; 97162; 97166; 99218; 99285; Q9957; Q9967; A4216; G0378

== ENCOUNTER 2020-12-04 13:06 | Outpatient (RCR) | payer MEDICARE, SELFPAY ==
[2020-09-20 02:05] VITALS: BMI 44.1
[2020-12-04 15:12] LABS: Absolute Lymphocyte Count 1.87 X10^3/uL (0.83-4.51); Basophil# 0.07 X10^3/uL; Eosinophil# 0.48 X10^3/uL; Eosinophils% 6.8 % (0-5); Hematocrit 38.8 % (37-47); Hemoglobin 12.1 g/dL (12.0-15.0); Lymphocyte # 1.87 X10^3/ul (4.0); Lymphocyte % 26.3 % (19-41); Mean Corp Hgb Conc 31.2 g/dL (32-36); Mean Corpuscular Hgb 31.7 pg (27.0-32.0); Mean Corpuscular Volume 101.6 fL (81-99); Mean Platelet Vol. 10.2 fl (6.2-12.0); Monocyte# 0.68 X10^3/uL; Monocyte% 9.6 % (0-10); NRBC Flagged by Analyzer 0 % (0-5); Neutrophil # 3.95 X10^3/uL (2.7-7.7); Neutrophil % 55.6 % (47-70); Platelet Count 260 K/mm3 (150-450); RBC Distribution Width CV 15.7 % (11.6-14.6); RBC Distribution Width SD 57.8 fl (35.1-43.9); Red Blood Count 3.82 M/mm3 (4.2-5.4); White Blood Count 7.1 K/mm3 (4.4-11.0)
[2020-12-04 15:48] LABS: AST(SGOT) 17 U/L (15-37); Alanine Aminotransfer ALT/SGPT 22 U/L (13-56); Albumin, Serum 3.7 g/dL (3.2-5.0); Alkaline Phosphatase 134 U/L (45-117); Anion Gap 7 (5-15); BUN 20 mg/dL (7-18); BUN/Creat Ratio 19.6 RATIO (10-20); Calcium,Total 9.1 mg/dL (8.5-10.1); Chloride 103 mmol/L (98-107); Creatinine, Serum 1.02 mg/dL (0.55-1.02); EST Glomerular Filtration Rate 56 mL/min (>60); Est Glom Filt Rate - Afr Amer 68 mL/min (>60); Globulin 3.8 g/dL (2.2-4.2); Glucose 118 mg/dL (74-106); Potassium 4.1 mmol/L (3.5-5.1); Protein, Total 7.5 g/dL (6.4-8.2); Sodium Level 139 mmol/L (136-145)
== END 2020-12-04 18:00 | disposition home or self-care (01) ==
LOC: MTLAB 13:06
PROVIDERS: PCP Family Medicine; Referring Provider Internal Medicine Rheumatology; Visit Provider Internal Medicine Rheumatology
DX: M05.70 Rheumatoid arthritis with rheumatoid factor of unspecified site without organ or systems involvement (principal); Z79.899 Other long term (current) drug therapy; M18.12 Unilateral primary osteoarthritis of first carpometacarpal joint, left hand; M21.40 Flat foot [pes planus] (acquired), unspecified foot; H35.30 Unspecified macular degeneration; I10 Essential (primary) hypertension; G47.00 Insomnia, unspecified; M51.37 Other intervertebral disc degeneration, lumbosacral region
CPT/HCPCS: 36415; 80053; 85025

== ENCOUNTER 2020-12-06 17:10 | Inpatient (IN) | payer MEDICARE, SELFPAY ==
[2020-09-20 02:05] VITALS: BMI 44.1
[2020-12-06] VITALS (20 sets, daily range): BP systolic 77–141; BP diastolic 34–79; PULSE 100–113; RESP 13–26; TEMP 29.5–37.2; O2SAT 80–100; BMI 44.9; BMI 46.0
--- NOTE | 2020-12-06 17:32 | EKG12_ITS ---
Test Reason : SOB Blood Pressure : / mmHG Vent. Rate : 108 BPM Atrial Rate : 108 BPM P-R Int : 180 ms QRS Dur : 094 ms QT Int : 356 ms P-R-T Axes : 037 040 065 degrees QTc Int : 477 ms Sinus tachycardia Otherwise normal ECG Confirmed by EDGAR WAGNER, PRESTON ([id number]), editor dictionary HUAN NORWOOD ([id number]) on 12/11/2020 11:12:09 AM Referred By: NIALL Confirmed By:LITO HERNÁNDEZ MD
--- NOTE | 2020-12-06 17:33 | CT_ITS ---
STUDY: CT ABDOMEN AND PELVIS WITH CONTRAST REASON FOR EXAM: Female, 75 years old. Diarrhea. RADIATION DOSAGE (If Supplied By Facility): CTDIvol = ( 17.075 ) mGy, DLP = ( 1225.15 ) mGycm TECHNIQUE: Transaxial images were obtained from the dome of the diaphragm to the symphysis pubis without oral contrast. 100 ml of ISOVUE-300 contrast was administered. Sagittal and coronal images were reconstructed. Individualized dose optimization techniques were used for this CT. COMPARISON: None. FINDINGS: The study is limited by patient motion and by streak artifact due to the patient''s arms being at his sides. There is atelectasis at the lung bases. The visualized portions of the heart and pericardium are within normal limits. There are no calcified gallstones present. The liver is within normal limits. There are no suspicious hepatic lesions. The spleen is normal in size. The pancreas is within normal limits. The adrenal glands are within normal limits. There are no renal or ureteral stones. There is no hydronephrosis. There are hypodensities in the right kidney which are too small to catheterize. However, these likely represent cysts. There are no left renal lesions. Normal visualized stomach. There is no bowel obstruction or inflammation. The appendix is not visualized, but there are no findings to suggest acute appendicitis. The aorta is normal in caliber. There are atherosclerotic ossifications noted in the aorta. There is no abdominal or pelvic free air, free fluid, fluid collection or lymphadenopathy. There are no destructive osseous lesions. There are degenerative changes noted in the spine. The patient is status post posterior fusion of L4-S1. The patient is status post bilateral hip arthroplasty. CT/Abdomen/Pelvis W IV Cont ONLY IMPRESSION: No acute abdominal or pelvic pathology. Electronically Signed: Shmuel Orr MD at 19:49 EST Tel , Service support ,
[2020-12-06] MEDS: 0.9% Normal Saline 1,000 ML 999 ML IV ×4 (17:50→22:57)
[2020-12-06 18:15] LABS: Absolute Lymphocyte Count 3.65 X10^3/uL (0.83-4.51); Absolute Neutrophil Count 11.6 X10^3/uL (2.0-7.7); Basophil# 0.02 X10^3/uL; Basophil% 0.1 % (0-1); Eosinophil# 0.12 X10^3/uL; Eosinophils% 0.8 % (0-5); Hematocrit 42.2 % (37-47); Hemoglobin 12.8 g/dL (12.0-15.0); Lymphocyte # 3.65 X10^3/ul (4.0); Lymphocyte % 23.3 % (19-41); Mean Corp Hgb Conc 30.3 g/dL (32-36); Mean Corpuscular Volume 102.2 fL (81-99); Mean Platelet Vol. 10.5 fl (6.2-12.0); Monocyte# 0.26 X10^3/uL; Monocyte% 1.7 % (0-10); NRBC Flagged by Analyzer 0 % (0-5); Neutrophil # 11.55 X10^3/uL (2.7-7.7); Neutrophil % 73.8 % (47-70); Platelet Count 291 K/mm3 (150-450); RBC Distribution Width CV 15.6 % (11.6-14.6); RBC Distribution Width SD 58.8 fl (35.1-43.9); Red Blood Count 4.13 M/mm3 (4.2-5.4); White Blood Count 15.6 K/mm3 (4.4-11.0)
[2020-12-06 18:24] LABS: International Normalized Ratio 1.1; Prothrombin Time (Protime)PT. 13.2 SECONDS (11.7-14.9)
[2020-12-06 18:25] LABS: Partial Thromboplast Time 26.9 Seconds (24.1-36.2)
[2020-12-06 18:37] LABS: ALB/GLOB Ratio 0.9 RATIO (0.9-2.4); AST(SGOT) 21 U/L (15-37); Alanine Aminotransfer ALT/SGPT 20 U/L (13-56); Alkaline Phosphatase 113 U/L (45-117); Anion Gap 14 (5-15); BUN 23 mg/dL (7-18); BUN/Creat Ratio 16.9 RATIO (10-20); CPK Total, Creatine Kinase 77 U/L (26-192); Calcium,Total 8.9 mg/dL (8.5-10.1); Chloride 103 mmol/L (98-107); Creatinine, Serum 1.36 mg/dL (0.55-1.02); EST Glomerular Filtration Rate 40 mL/min (>60); Est Glom Filt Rate - Afr Amer 49 mL/min (>60); Estimated Creatinine Clearance 33.46 ml/min; Globulin 3.2 g/dL (2.2-4.2); Glucose 267 mg/dL (74-106); Potassium 3.3 mmol/L (3.5-5.1); Protein, Total 6.2 g/dL (6.4-8.2); Sodium Level 139 mmol/L (136-145)
[2020-12-06 18:40] LABS: Bacteria 0 SEEN /hpf (None Seen); Mucous, Urine 0 SEEN /hpf (<or=2+); Red Blood Cells-Urine 0 SEEN /hpf (0-5); White Blood Cells 0 SEEN /hpf (0-5)
[2020-12-06 18:43] LABS: Color, Urine Yellow (Yellow); Glucose, Dipstick Normal (Normal); Ketone-Dipstick Negative (Negative); Leukocyte Esterase-Dipstick 25 /ul (Negative); Nitrite-Dipstick Negative (Negative); Occult Blood-Urine Negative /ul (Negative); Protein-Dipstick 30 mg/dl (Negative); Urine Bilirubin Dipstick Negative (Negative); Urine Clarity Clear (Clear); Urine Urobilinogen Normal (Normal)
[2020-12-06 18:43] LABS: Lactic Acid 7.9 mmol/L (0.4-1.9)
[2020-12-06 18:50] LABS: Squamous Epithelial Cells - UA 0-5 SEEN /hpf (5-10)
--- NOTE | 2020-12-06 19:25 | RAD_ITS ---
STUDY: X-RAY CHEST REASON FOR EXAM: Female, 75 years old. Shortness of breath TECHNIQUE: Frontal view of the chest COMPARISON: None. FINDINGS: There is elevation of the left hemidiaphragm with left basilar atelectasis. The lungs are otherwise clear. There are no pleural effusions. There is no pneumothorax. The heart is normal in size. The visualized osseous structures are within normal limits. RAD/Chest 1 View (Portable) IMPRESSION: The patient is status post bilateral shoulder arthroplasty. Electronically Signed: Shmuel Orr MD at 19:49 EST Tel , Service support ,
--- NOTE | 2020-12-06 19:30 | NURSING ---
pt in ct
--- NOTE | 2020-12-06 20:31 | PCM.HP.STD ---
History of Present Illness Date of Admission: 12/06/20 Chief Complaint: Dyspnea, diarrhea, hypoxic The patient is a 75 y/o F w/ PMHx: Hypothyroidism, HTN, HLD, Anxiety and Depression, Chronic COPD, CKD stage III, Rheumatoid arthritis, Morbid obesity, Former EtOH abuse, Former Tobacco use who presents to the [facility] ED on 12/06/20 with significant onset fatigue, malaise, chills, subjective fever, nausea without emesis, loose stools, abdominal cramping, mild headache with significant onset dyspnea but no significant cough, not improving prompting ED evaluation starting over the last 12 to 24 hours. In the ED ED physician noted mild left lower extremity medial thigh redness with some concern for possible concurrent bacterial cellulitis. Work-up in the ED included T 98.9 however patient became hypothermic with eventual core Noel placed with T 93.8, heart rate 110, BP 85/45 but improved with fluids 122/79, 80% on room air with improvement to 96% on a Ventimask now transition to high flow air Vo, CBC with WC 15.6, hemoglobin 12.8, platelet 291 with left shift, unremarkable coags, CMP with potassium 3.3, BUN/creatinine 23/1.36, glucose 267, lactic acid 7.9, troponin less than 0.015, total creatinine kinase 77, urinalysis with evidence of dehydration otherwise not significant, blood culture x2 pending per ED, urine culture pending per ED, SARS rapid Covid antigen negative, pending PCR Covid, pending respiratory viral panel, chest x-ray with evidence bilateral shoulder arthroplasty with no acute cardiopulmonary findings, CT abdomen pelvis with no acute intra-abdominal findings, EKG w/ sinus tachycardia. In ED patient ministered normal saline, cefepime, vancomycin. 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, [facility], dr whittaker History of rheumatoid arthritis (Chronic) Allergies adhesive Allergy (Verified 12/06/20 17:24) Other amoxicillin trihydrate [From Augmentin] Allergy (Verified 12/06/20 17:24) Unknown latex Allergy (Verified 12/06/20 17:24) Unknown Penicillins Allergy (Verified 12/06/20 17:24) Unknown potassium clavulanate [From Augmentin] Allergy (Verified 12/06/20 17:24) Unknown tetracycline Allergy (Verified 12/06/20 17:24) Unknown Home Medications: Ambulatory Orders Medication Instructions Recorded Albuterol IH (ProAir) [Proair Hfa] 1 - 2 puff INHALATION Q6H PRN PRN 03/15/15 Hydrochlorothiazide [Hctz] 25 mg PO DAILY 03/15/15 Methotrexate 20 mg PO MO 03/15/15 Folic Acid 1 mg PO DAILY@0800 #0 tablet 03/29/15 Losartan Potassium [Cozaar] 50 mg PO DAILY #30 tablet 03/29/15 Oxycodone HCl/Acetaminophen 1 tablet PO TID 11/17/17 [Percocet 5-325] Prednisone 10 mg PO PRN PRN 07/07/19 Sulfasalazine 1,000 mg PO BID 07/07/19 Venlafaxine HCl [Venlafaxine HCl 150 mg PO DAILY 07/07/19 ER] Vit A/Vit C/Vit E/Zinc/Copper 1 tab PO DAILY 07/07/19 [Preservision Areds Tablet] Atorvastatin Calcium [Lipitor] 20 mg PO DAILY 09/19/20 Clonazepam [Klonopin] 1 mg PO QHS 09/19/20 Levothyroxine Sodium [Synthroid] 50 mcg PO DAILY 09/19/20 Magnesium Oxide [Magnesium] 400 mg PO DAILY 09/19/20 Aspirin E.C. [Ecotrin] 81 mg PO DAILY@0800 #30 tab 09/20/20 Surgical History: appendectomy, dilatation and curettage, - - Lumbar back surgery with hardware, tonsillectomy, appendectomy, bilateral total knee replacement, bilateral total hip replacement, bilateral total shoulder replacement, right hand surgery specifically with replaced knuckles, cataract surgery. Psychiatric History: Anxiety, Depression SOLUTION LEAD History: No pertinent SOLUTION LEAD history Lives: With Family - Patient notes that her grandson and 2 daughters live with her. Smoking Status: Former smoker - Patient quit cigarette tobacco usage approximately 30 years prior to current presentation with prior to this 1 pack/day since she had been 18 years old. Tobacco Use: Non-smoker Alcohol: Sober - Patient currently sober x30 years. Drugs: None - *Family History Maternal History Items: Diabetes, High Cholesterol, Heart Disease, Hypertension Paternal History Items: Cancer - Father with history of prostate cancer. Review of Systems Constitutional: Reports: Anorexia, Chills, Fever, Malaise, Weakness, Fatigue. Denies: Weight Change HEENT: Reports: Head Aches. Denies: Sinus Congestion, Sinus Drainage Cardiovascular: Denies: Chest Pain, Palpitations Respiratory: Reports: Shortness of Breath, Shortness of breath upon exertion. Denies: Cough, Shortness of breath at rest, Sputum production, Wheezing Gastrointestinal: Reports: Diarrhea, Nausea. Denies: Abdominal Pain, Vomiting Genitourinary: Denies: Dysuria Musculoskeletal: Reports: Back Pain, Joint Pain, Muscle pain. Denies: Joint Tenderness Skin: Denies: Rash, Wounds Neurological: Denies: Numbness, Tingling, Focal weakness Psychiatric: Reports: Anxiety, Depression. Denies: Homicidal Ideations, Suicidal Ideations Hematologic/ Lymphatic: Denies: Easy Bruising, Easy Bleeding VTE Information - Inpt Only VTE Present on Admission: No VTE Mechan Device Prophylaxis: SCD's VTE Pharm Prophylaxis ordered?: Yes Subjective: Patient seated upright in the ED bed, air Vo in place, fatigued, still having some increased work of breathing but improved since initial ED presentation. Objective: Physical Examination: General: awake, alert, oriented x 3 and cooperative, seated upright in the ED bed, air Vo in place, still increased work of breathing noted but improving. Skin: normal color, turgor, no icterus, cyanosis. HEENT: AT/NC, EOMI, PERRLA, dry MM, air Vo in place, no carotid bruits but difficult to evaluate given air Vo referred sounds, difficult to assess JVD given thickened neck. Lungs: Diminished breath sounds throughout, greater bases, air Vo in place, increased effort, evident mild distress, no rales, ronchi or wheezing. Heart: Tachycardic with regular rhythm; no gallop, rub audible. Abdomen: soft, morbidly obese, NTTP, ND, mildly hyperactive BS, unable to discern HSM secondary to morbidly obese habitus. Extremities: no cyanosis or clubbing, mild bilateral ankle to mid portillo edema. Neurological: patient awake, alert, oriented as noted; cognitive function intact; pupils equally reactive to light and accomodation; cranial nerves II-XII grossly normal, moving all 4 extremities, no focal deficits, strength severely global decrease secondary to acute presentation. Psychiatric: affect appears fatigued, ill-appearing, no acute evidence of depressive or anxiety feelings. - Physical Exam Vitals/I&O's: Vital Signs Temp Pulse Resp BP Pulse Ox 93.8 F L 110 H 20 H 122/79 H 87 12/06/20 19:51 12/06/20 19:47 12/06/20 19:47 12/06/20 19:47 12/06/20 19:47 Oxygen Flow Rate (L/min) 15 Oxygen Delivery Method Venturi Mask Weight: 278 lb Body Mass Index (BMI) 44.9 Finger Stick Blood Glucose 152 Intake and Output for Last 24 Hours 12/04/20 12/05/20 12/06/20 23:59 23:59 23:59 Intake Total 1000 / 1000 Balance 1000 / 1000 Microbiology Past 72 Hours 12/06/20 18:00 Mucosa - Nose SARS-CoV-2 Antigen (Rapid) - Final Laboratory Results 12/06/20 17:35: WBC 15.6 H, RBC 4.13 L, Hgb 12.8, Hct 42.2, MCV 102.2 H, MCH 31.0, MCHC 30.3 L, RDW Std Deviation 58.8 H, RDW Coeff of Espinoza 15.6 H, Plt Count 291, MPV 10.5, Immature Gran % (Auto) 0.300, Neut % (Auto) 73.8 H, Lymph % (Auto) 23.3, [place] % (Auto) 1.7, Eos % (Auto) 0.8, Baso % (Auto) 0.1, Absolute Neuts (auto) 11.6 H, Absolute Lymphs (auto) 3.65, Nucleated RBC % 0 12/06/20 17:35: PT 13.2, INR 1.1, APTT 26.9 12/06/20 17:35: Sodium 139, Potassium 3.3 L, Chloride 103, Carbon Dioxide 22.0, Anion Gap 14, BUN 23 H, Creatinine 1.36 H, Estim Creat Clear Calc 33.46, Est GFR (MDRD) Af Amer 49 L, Est GFR (MDRD) Non-Af 40 L, BUN/Creatinine Ratio 16.9, Glucose 267 H, Calcium 8.9, Total Bilirubin 0.30, AST 21, ALT 20, Alkaline Phosphatase 113, Total Creatine Kinase 77, Troponin I < 0.015, Total Protein 6.2 L, Albumin 3.0 L, Globulin 3.2, Albumin/Globulin Ratio 0.9 12/06/20 17:35: Lactic Acid 7.9 H* 12/06/20 18:15: Urine Color Yellow, Urine Clarity Clear, Urine pH 6.0, Ur Specific [place] 1.020, Urine Protein 30 H, Urine Glucose (UA) Normal, Urine Ketones Negative, Urine Occult Blood Negative, Urine Nitrite Negative, Urine Bilirubin Negative, Urine Urobilinogen Normal, Ur Leukocyte Esterase 25 H, Urine RBC 0 SEEN, Urine WBC 0 SEEN, Ur Squamous Epith Cells 0-5 SEEN, Urine Bacteria 0 SEEN, Urine Mucus 0 SEEN Current Medications Sodium Chloride () 1,000 mls @ 999 mls/hr IV .Q1H1M MARIE; Protocol Stop: 12/06/20 21:55 Last Admin: 12/06/20 19:45 Dose: 999 mls/hr Documented by: Vancomycin HCl 2,000 mg/ (Sodium Chloride) 540 mls @ 250 mls/hr IV X1 ONE Stop: 12/06/20 21:09 Assessment/Plan All Active Problems Vision disturbance (Acute) The patient is a 75 y/o F w/ PMHx: Hypothyroidism, HTN, HLD, Anxiety and Depression, Chronic COPD, CKD stage III, Rheumatoid arthritis, Morbid obesity, Former EtOH abuse, Former Tobacco use who presents to the [facility] ED on 12/06/20 with significant onset fatigue, malaise, chills, subjective fever, nausea without emesis, loose stools, abdominal cramping, mild headache with significant onset dyspnea but no significant cough, not improving prompting ED evaluation starting over the last 12 to 24 hours. Acute Septic Shock secondary to Acute Hypoxic Respiratory Failure secondary to Suspected Acute Viral Syndrome, COVID-19 with concurrent diarrhea: Will admit to the ICU, will continue airvo versus BIPAP usage, will consult ICU physician, PRN albuterol, maintain on IV Rocephin will be continued given ? LLE cellulitis although presentation suspicious for COVID despite negative rapid, pending PCR, HOB, IS parameters w/ pending sputum cultures and urine antigens, will obtain stool culture and cdiff to be cautious, will obtain procalcitonin, D-dimer, CRP, CPK, Ferritin, LDH, cycle cardiac enzymes, continue supportive care including q 2 hour turning including prone given no prone bed availability and judicious hydration, closely monitor for worsening status for ARDS and multiorgan failure, consult Infectious disease, will administer IV decadron and remdesivir. Indeterminate cardiac enzyme: Initial troponin normal however repeat 0.194, will maintain on telemetry monitoring, cycle cardiac enzymes, supplement potassium, pending magnesium, obtain FLP in a.m., initiate heparin drip in case increases further especially given unclear presentation but suspected Covid status, pending D-dimer as noted in BNP, will request echocardiogram, trend EKG. Will defer immediate cardiology evaluation given possibly demand and possible Covid status. ? LLE medial thigh cellulitis: Lower suspicion, no pain, mild redness noted in the ED, will maintain on rocephin but de-escalate off if appropriate, BL LE elevated, ASHTYN wraps, monitor erythema, pending D-Dimer as noted. Hypokalemia: Admission K+ 3.3, magnesium level requested, supplementation given, repeat level in AM. Abnormal TSH: TSH 4.19, in acute illness setting however, will obtain FT4 level. Hyperglycemia: Admission Hgb 267, diabetic history, will obtain hemoglobin A1c and if elevated will initiate ADA diet with back checks with sliding scale especially given steroid usage. Chronic kidney disease stage III: Admission BUN/creatinine 23/1.36, baseline creatinine appears 0.8-1.1, continue judicious fluids as noted above, repeat CMP in AM. Chronic COPD: Continue treatment as noted #1, not on any scheduled inhalers, will have as needed albuterol, encourage head of bed and I-S parameters as able. Rheumatoid arthritis: We will continue patient home sulfasalazine, will hold methotrexate which patient only receives on Friday and reevaluate pending further work-up for resumption. Anxiety and depression: We will continue patient home Klonopin and venlafaxine regimen. Hypothyroidism: Continue home synthroid regimen. Morbid Obesity: Weight loss and lifestyle changes encouraged. Former alcohol abuse: Patient continues to be sober for at least the last 30 years, encourage continued sobriety. Former tobacco use: Encourage continued tobacco cessation. DVT prophylaxis: SCDs, continue heparin drip given significant indeterminate cardiac enzyme rise with pending D-dimer and suspected Covid status. CODE status: Patient does not have healthcare power of defense attorney set up but notes she does have a living will. Discussed CODE status at length including difference between FULL code, DNR-CCA and DNR-CC status. Following discussions about the differences in these status, requested DNR-CCA, no intubation status. Advanced Care Planning Face to Face Time: 16 minutes. Inpatient E&M: 53859 Init Hosp L3 Procedures: 24874 Advncd Care Plan 30 Min
--- NOTE | 2020-12-06 20:43 | ED.VIS.GEN ---
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 Patient states when she woke up today she was feeling okay and then throughout the afternoon she started to feel really bad. She for started to feel itchy all over and then feels short of breath. She had multiple episodes of bowel movements and actually stooled on her clothing. She denies any black or blood in her stool. She denies any fever or chills. She states she feels very short of breath and is cold right now. She denies any chest pain. Per EMS patient was 80% on room air with arrival was placed on nonrebreather. Past Medical History - Allergies and Home Meds Allergies/Adverse Reactions: Allergies adhesive Allergy (Verified 12/06/20 17:24) Other amoxicillin trihydrate [From Augmentin] Allergy (Verified 12/06/20 17:24) Unknown latex Allergy (Verified 12/06/20 17:24) Unknown Penicillins Allergy (Verified 12/06/20 17:24) Unknown potassium clavulanate [From Augmentin] Allergy (Verified 12/06/20 17:24) Unknown tetracycline Allergy (Verified 12/06/20 17:24) Unknown Past Medical History: - - Anxiety, hyperlipidemia, hypothyroid, diabetes mellitus, COPD Surgical History: appendectomy, dilatation and curettage, - - Lumbar back surgery with hardware, tonsillectomy, appendectomy, bilateral total knee replacement, bilateral total hip replacement, bilateral total shoulder replacement, right hand surgery specifically with replaced knuckles, cataract surgery. Smoking Status: Former smoker - Family History Maternal Family History: Reports: - - Patient notes a maternal family history of hypertension and diabetes. Paternal Family History: Reports: - - Patient notes a paternal family history of prostate cancer. Review of Systems General: Reports: Malaise. Denies: Chills, Fever, Sweats Eyes: Denies: Visual changes - bilaterally, Diplopia ENT: Denies: Rhinorrhea, Sore throat Cardiovascular: Denies: Chest pain, Palpitations Respiratory: Reports: Dyspnea, Cough. Denies: Dyspnea on exertion Gastrointestinal: Reports: Abdominal pain, Diarrhea. Denies: Nausea, Vomiting, Melena, Hematochezia Genitourinary: Denies: Dysuria, Hematuria, Frequency Musculoskeletal: Reports: Swelling. Denies: Back pain, Extremity Pain Skin: Reports: - - itching . Denies: Rash, Wounds Neurological: Denies: Headache, Weakness, Numbness Physical Exam Vital Signs/Narrative: Vital Signs Temp Pulse Resp BP Pulse Ox 12/06/20 20:36 113 H 18 97 12/06/20 20:35 94.8 F L 12/06/20 20:33 94.8 F L 111 H 16 141/77 H 99 12/06/20 19:51 93.8 F L 12/06/20 19:47 93.7 F L 110 H 20 H 122/79 H 87 12/06/20 18:29 93.0 F L 12/06/20 18:25 85.1 F L 109 H 22 H 85/45 L 96 12/06/20 18:24 109 H 19 H 85/45 L 96 12/06/20 17:52 108 H 23 H 77/46 L 94 12/06/20 17:39 98.9 F 108 H 17 81/54 L 98 12/06/20 17:24 107 H 26 H 97/34 L 96 12/06/20 17:20 98.9 F 108 H 25 H 97/34 L 80 Inital Vital Signs reviewed: Yes General: Well nourished, Well developed, Obese, Acute Distress Head: Normocephalic, Atraumatic Eyes: Perrl, EOMI ENT: No rhinorrhea, Dry mucous membranes Neck: Supple, Nontender, No JVD Cardiovascular: Regular rhythm, No murmurs, Tachycardia Respiratory: Chest nontender, Diminished, - - Significant conversational dyspnea present. Negative for: No distress, Rhonchi, Decreased Air Movement Abdomen: Soft, Nontender, Nondistended, Normal bowel sounds Back: Nontender, Normal Inspection Extremities: Nontender, Edema Skin: Normal color, Rash - Erythema of the left lower extremity most pronounced in left medial thigh, no associated induration or warmth Neurological: Alert, Oriented x3, Cranial nerves II-XII grossly intact, Normal Strength, Normal Sensation Psychological: Normal affect, Normal Mood Diagnostic/Tx/Re-eval Chest X-Ray - ED: 1 View, Read by ED Physician, Read by Radiologist, No Acute Disease Clinical Impression(s) from Imaging Studies Abdomen/Pelvis CT 12/06/20 17:33 IMPRESSION: No acute abdominal or pelvic pathology. Electronically Signed: Shmuel Orr MD at 19:49 EST Tel , Service support , Chest X-Ray 12/06/20 19:25 IMPRESSION: The patient is status post bilateral shoulder arthroplasty. Electronically Signed: Shmuel Orr MD at 19:49 EST Tel , Service support , Laboratory Data 12/06/20 12/06/20 12/06/20 17:35 17:35 17:35 WBC 15.6 H RBC 4.13 L Hgb 12.8 Hct 42.2 MCV 102.2 H MCH 31.0 MCHC 30.3 L RDW Std Deviation 58.8 H RDW Coeff of Espinoza 15.6 H Plt Count 291 MPV 10.5 Immature Gran % (Auto) 0.300 Neut % (Auto) 73.8 H Lymph % (Auto) 23.3 [place] % (Auto) 1.7 Eos % (Auto) 0.8 Baso % (Auto) 0.1 Absolute Neuts (auto) 11.6 H Absolute Lymphs (auto) 3.65 Nucleated RBC % 0 PT 13.2 INR 1.1 APTT 26.9 D-Dimer Quant (PE/DVT) Sodium 139 Potassium 3.3 L Chloride 103 Carbon Dioxide 22.0 Anion Gap 14 BUN 23 H Creatinine 1.36 H Estim Creat Clear Calc 33.46 Est GFR (MDRD) Af Amer 49 L Est GFR (MDRD) Non-Af 40 L BUN/Creatinine Ratio 16.9 Glucose 267 H Lactic Acid Calcium 8.9 Total Bilirubin 0.30 AST 21 ALT 20 Alkaline Phosphatase 113 Total Creatine Kinase 77 Troponin I < 0.015 B-Natriuretic Peptide Total Protein 6.2 L Albumin 3.0 L Globulin 3.2 Albumin/Globulin Ratio 0.9 TSH Urine Color Urine Clarity Urine pH Ur Specific [place] Urine Protein Urine Glucose (UA) Urine Ketones Urine Occult Blood Urine Nitrite Urine Bilirubin Urine Urobilinogen Ur Leukocyte Esterase Urine RBC Urine WBC Ur Squamous Epith Cells Urine Bacteria Urine Mucus COVID-19 ([facility]) 12/06/20 12/06/20 12/06/20 17:35 17:35 17:35 WBC RBC Hgb Hct MCV MCH MCHC RDW Std Deviation RDW Coeff of Espinoza Plt Count MPV Immature Gran % (Auto) Neut % (Auto) Lymph % (Auto) [place] % (Auto) Eos % (Auto) Baso % (Auto) Absolute Neuts (auto) Absolute Lymphs (auto) Nucleated RBC % PT INR APTT D-Dimer Quant (PE/DVT) 8.88 H* Sodium Potassium Chloride Carbon Dioxide Anion Gap BUN Creatinine Estim Creat Clear Calc Est GFR (MDRD) Af Amer Est GFR (MDRD) Non-Af BUN/Creatinine Ratio Glucose Lactic Acid 7.9 H* Calcium Total Bilirubin AST ALT Alkaline Phosphatase Total Creatine Kinase Troponin I B-Natriuretic Peptide 4.6 Total Protein Albumin Globulin Albumin/Globulin Ratio TSH Urine Color Urine Clarity Urine pH Ur Specific [place] Urine Protein Urine Glucose (UA) Urine Ketones Urine Occult Blood Urine Nitrite Urine Bilirubin Urine Urobilinogen Ur Leukocyte Esterase Urine RBC Urine WBC Ur Squamous Epith Cells Urine Bacteria Urine Mucus COVID-19 ([facility]) 12/06/20 12/06/20 12/06/20 18:15 20:29 20:50 WBC RBC Hgb Hct MCV MCH MCHC RDW Std Deviation RDW Coeff of Espinoza Plt Count MPV Immature Gran % (Auto) Neut % (Auto) Lymph % (Auto) [place] % (Auto) Eos % (Auto) Baso % (Auto) Absolute Neuts (auto) Absolute Lymphs (auto) Nucleated RBC % PT INR APTT D-Dimer Quant (PE/DVT) Sodium Potassium Chloride Carbon Dioxide Anion Gap BUN Creatinine Estim Creat Clear Calc Est GFR (MDRD) Af Amer Est GFR (MDRD) Non-Af BUN/Creatinine Ratio Glucose Lactic Acid Calcium Total Bilirubin AST ALT Alkaline Phosphatase Total Creatine Kinase Troponin I 0.194 H B-Natriuretic Peptide Total Protein Albumin Globulin Albumin/Globulin Ratio TSH 4.19 H Urine Color Yellow Urine Clarity Clear Urine pH 6.0 Ur Specific [place] 1.020 Urine Protein 30 H Urine Glucose (UA) Normal Urine Ketones Negative Urine Occult Blood Negative Urine Nitrite Negative Urine Bilirubin Negative Urine Urobilinogen Normal Ur Leukocyte Esterase 25 H Urine RBC 0 SEEN Urine WBC 0 SEEN Ur Squamous Epith Cells 0-5 SEEN Urine Bacteria 0 SEEN Urine Mucus 0 SEEN COVID-19 ([facility]) Not Detected - Rhythm Strip Rhythm Strip: Sinus Tach Rate: 108 Ectopy: None - EKG Initial EKG Interpretation: Sinus Tachycardia, - - Tachycardia at a rate of 108 Normal axis Normal intervals Normal ST segments - Medical Decision Making Patient arrives in respiratory distress. She is requiring a nonrebreather. In addition patient is hypotensive. Patient does appear volume depleted I suspect either septic or hypovolemic shock. She is not appear to have any obvious source of bleeding. Her stool is brown and she is not appear to have a GI bleed so my initial clinical exam. Patient is given f full fluid boluses and does have improvement of her blood pressure and heart rate.She has a leukocytosis as well as a significant lactic acidosis of 7.9. Creatinine is mildly elevated at 1.36. Patient's initial troponin is negative. EKG does not show any acute ischemic changes. Urinalysis is not really consistent with infection. Chest x-ray does not show acute process. I have a high suspicion for infectious source however and patient is empirically placed on cefepime and vancomycin given her penicillin allergy. CT the abdomen pelvis with contrast obtained looking for source of infection given that she did have abdominal discomfort and diarrhea. This does not show any acute process. While in ER patient is initially transition to a Venturi mask but has some episodes of hypoxia as well so she is then placed on aero flow. She seems to tolerate this well. Patient be made to the ICU for further evaluation and management. She is agreeable with plan of care. - Critical Care Time Critical care time (excluding procedures): 30-74 minutes - 45, Performing Direct Patient Care at Bedside - Frequent evaluation of blood pressure/fluid resuscitation. Discussion with hospitalist for admission in ICU treatment. ED Disposition - Plan for ED Patient: Disposition: Acute Care Hospital [facility] Diagnosis: Lactic acidosis, Acute respiratory failure with hypoxia, Acute kidney injury
[2020-12-06 21:10] LABS: Thyroid Stim Hormone (TSH) 4.19 uIU/mL (0.358-3.74)
[2020-12-06 22:01] LABS: Reflex Lactate? Y
[2020-12-06 22:38] LABS: BNP,B-Type NATRIURETIC PEPTIDE 4.6 pg/mL (0-100)
[2020-12-06 22:57] LABS: Lactic Acid 4.3 mmol/L (0.4-1.9)
[2020-12-06 23:56] LABS: Ferritin 62 ng/mL (8-252); LDH 223 U/L (84-246); Magnesium 1.7 mg/dL (1.6-2.6); T4 Free Direct 0.94 ng/dL (0.76-1.46)
[2020-12-06 23:57] LABS: D-Dimer Quantitative (DVT/PE) 8.88 FEU/ug/m (0.27-0.49)
[2020-12-06] MEDS: sulfaSALAzine 500 MG Tablet 1000 MG PO (23:59)
[2020-12-06] MEDS: dexAMETHasone 4 MG/ML Vial 6 MG IV (23:59)
[2020-12-07] VITALS (21 sets, daily range): BP systolic 114–157; BP diastolic 37–84; PULSE 96–114; RESP 12–20; TEMP 36.9–37.9; O2SAT 95–100
[2020-12-07] MEDS: 0.9% Normal Saline 1,000 ML 100 ML IV
[2020-12-07] MEDS: clonazePAM 1 MG Tablet PO ×2 (00:04→22:23)
[2020-12-07] MEDS: HEPARIN/D5w 25,000 UNITS 25,000 UNITS/250 ML IV.SOLN. 17 UNITS IV (00:05)
[2020-12-07] MEDS: Heparin Injection (Vial) 5,000 UNIT/ML VIAL 10500 UNIT IV (00:05)
--- NOTE | 2020-12-07 02:24 | NURSING ---
Spoke with Dr. Rader in regards to CT of chest with contrast ordered for 05 this AM. Called and spoke with CT about what the recommendation was between scans with contrast since patient has elevated creatinine and BUN and low GFRs. CT stated that the radiologist usually recommends 24hrs between. Dr. Rader wanted CT scan done today and CT said they would plan to do it this afternoon.
[2020-12-07 03:44] LABS: Absolute Lymphocyte Count 0.59 X10^3/uL (0.83-4.51); Absolute Neutrophil Count 17.1 X10^3/uL (2.0-7.7); Basophil# 0.02 X10^3/uL; Basophil% 0.1 % (0-1); Eosinophil# 0.01 X10^3/uL; Eosinophils% 0.1 % (0-5); Hematocrit 38.2 % (37-47); Lymphocyte # 0.59 X10^3/ul (4.0); Lymphocyte % 3.3 % (19-41); Mean Corp Hgb Conc 31.4 g/dL (32-36); Mean Corpuscular Hgb 31.6 pg (27.0-32.0); Mean Corpuscular Volume 100.5 fL (81-99); Mean Platelet Vol. 10.1 fl (6.2-12.0); Monocyte# 0.15 X10^3/uL; Monocyte% 0.8 % (0-10); NRBC Flagged by Analyzer 0 % (0-5); Neutrophil # 17.09 X10^3/uL (2.7-7.7); Neutrophil % 95.2 % (47-70); POSITIVE DIFFERENTIAL YES; Platelet Count 242 K/mm3 (150-450); RBC Distribution Width CV 15.4 % (11.6-14.6)
[2020-12-07 03:46] LABS: Differential Indicated SCAN CRITERIA MET
[2020-12-07 04:22] LABS: Lactic Acid 2.4 mmol/L (0.4-1.9)
--- NOTE | 2020-12-07 05:28 | EKG12_ITS ---
Test Reason : AM EKG Blood Pressure : / mmHG Vent. Rate : 108 BPM Atrial Rate : 108 BPM P-R Int : 170 ms QRS Dur : 088 ms QT Int : 336 ms P-R-T Axes : 046 048 063 degrees QTc Int : 450 ms Sinus tachycardia Otherwise normal ECG When compared with ECG of 06-DEC-2020 17:35, MANUAL COMPARISON REQUIRED, DATA IS UNCONFIRMED Confirmed by EDGAR WAGNER, PRESTON ([id number]), news video editor HUAN NORWOOD ([id number]) on 12/11/2020 12:28:17 PM Referred By: Amina Palomo Confirmed By:LITO HERNÁNDEZ MD
[2020-12-07 05:30] LABS: ALB/GLOB Ratio 0.8 RATIO (0.9-2.4); AST(SGOT) 39 U/L (15-37); Alanine Aminotransfer ALT/SGPT 24 U/L (13-56); Albumin, Serum 2.7 g/dL (3.2-5.0); Alkaline Phosphatase 95 U/L (45-117); Anion Gap 5 (5-15); BUN 24 mg/dL (7-18); BUN/Creat Ratio 20.7 RATIO (10-20); Calcium,Total 7.6 mg/dL (8.5-10.1); Chloride 111 mmol/L (98-107); Cholesterol 144 mg/dL (200); Creatinine, Serum 1.16 mg/dL (0.55-1.02); EST Glomerular Filtration Rate 48 mL/min (>60); Est Glom Filt Rate - Afr Amer 59 mL/min (>60); Estimated Creatinine Clearance 39.23 ml/min; Globulin 3.3 g/dL (2.2-4.2); Glucose 146 mg/dL (74-106); High Density Lipoprotein 54 mg/dL; Potassium 5.2 mmol/L (3.5-5.1); Sodium Level 141 mmol/L (136-145); Triglycerides 43 mg/dL; Very Low Density Lipoprotein 9 mg/dL (5-40)
--- NOTE | 2020-12-07 05:42 | PCM.CON.CC ---
Reason for Consult Date of Consultation: 12/07/20 Reason for Consultation: Acute hypoxemic respiratory failure History of Present Illness: The patient is a 75-year-old female, with a history as outlined below, who presented to the emergency department on December 06 with complaints of nausea, vomiting and diarrhea, which began yesterday. The patient denies any shortness of breath but does report a mild nonproductive cough. She denies any recent sick contact exposure. She denies loss of taste or smell. The patient does not utilize supplemental oxygen at her baseline. She denies a history of venous thromboembolic disease. On presentation to the emergency department, the patient was noted to be afebrile and hemodynamically stable. She was initially documented to be saturating 80% on room air. Laboratory evaluation revealed an elevated white blood cell count to 15,000. Coagulation profile was within normal limits. D-dimer was elevated to 8.8. Chemistry profile was notable for a potassium of 3.3 and creatinine of 1.36. Lactate was elevated initially to 7.9. Liver function was within normal limits. Procalcitonin was noted to be 1.7. Both coronavirus rapid antigen and PCR testing was negative. Strep and urine Legionella antigens were negative. Respiratory viral panel was negative. Blood and urine cultures are pending. CT abdomen/pelvis was unremarkable. Chest x-ray revealed basilar atelectasis without focal infiltrate. The patient received supplemental IV fluid hydration and was started on empiric antimicrobials. She was also started on both Decadron and remdesivir. The patient was admitted to the medical intensive care unit for further management. I did once again confirm with the patient this morning that she in fact wants to remain DNR CCA without intubation. 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, spur dr panfilo singh History of rheumatoid arthritis (Chronic) Allergies adhesive Allergy (Verified 12/06/20 17:24) Other amoxicillin trihydrate [From Augmentin] Allergy (Verified 12/06/20 17:24) Unknown latex Allergy (Verified 12/06/20 17:24) Unknown Penicillins Allergy (Verified 12/06/20 17:24) Unknown potassium clavulanate [From Augmentin] Allergy (Verified 12/06/20 17:24) Unknown tetracycline Allergy (Verified 12/06/20 17:24) Unknown Home Medications: Ambulatory Orders Medication Instructions Recorded Albuterol IH (ProAir) [Proair Hfa] 1 - 2 puff INHALATION Q6H PRN PRN 03/15/15 Hydrochlorothiazide [Hctz] 25 mg PO DAILY 03/15/15 Methotrexate 20 mg PO MO 03/15/15 Folic Acid 1 mg PO DAILY@0800 #0 tablet 03/29/15 Losartan Potassium [Cozaar] 50 mg PO DAILY #30 tablet 03/29/15 Oxycodone HCl/Acetaminophen 1 tablet PO TID 11/17/17 [Percocet 5-325] Prednisone 10 mg PO PRN PRN 07/07/19 Sulfasalazine 1,000 mg PO BID 07/07/19 Venlafaxine HCl [Venlafaxine HCl 150 mg PO DAILY 07/07/19 ER] Vit A/Vit C/Vit E/Zinc/Copper 1 tab PO DAILY 07/07/19 [Preservision Areds Tablet] Atorvastatin Calcium [Lipitor] 20 mg PO DAILY 09/19/20 Clonazepam [Klonopin] 1 mg PO QHS 09/19/20 Levothyroxine Sodium [Synthroid] 50 mcg PO DAILY 09/19/20 Magnesium Oxide [Magnesium] 400 mg PO DAILY 09/19/20 Aspirin E.C. [Ecotrin] 81 mg PO DAILY@0800 #30 tab 09/20/20 Surgical History: appendectomy, dilatation and curettage, - - Lumbar back surgery with hardware, tonsillectomy, appendectomy, bilateral total knee replacement, bilateral total hip replacement, bilateral total shoulder replacement, right hand surgery specifically with replaced knuckles, cataract surgery. Psychiatric History: Anxiety, Depression HOME HEALTH LVN History: No pertinent HOME HEALTH LVN history Lives: With Family - Patient notes that her grandson and 2 daughters live with her. Smoking Status: Former smoker - Patient quit cigarette tobacco usage approximately 30 years prior to current presentation with prior to this 1 pack/day since she had been 18 years old. Tobacco Use: Non-smoker Alcohol: Sober - Patient currently sober x30 years. Drugs: None - *Family History Maternal History Items: Diabetes, High Cholesterol, Heart Disease, Hypertension Paternal History Items: Cancer - Father with history of prostate cancer. Review of Systems Constitutional: Reports: Anorexia, Malaise, Fatigue Eyes: Denies: Blurred vision, Double vision HEENT: Denies: Head Aches, Sinus Congestion, Sinus Drainage Cardiovascular: Denies: Chest Pain, Palpitations Respiratory: Reports: Cough Gastrointestinal: Reports: Abdominal Pain, Diarrhea, Nausea, Vomiting Genitourinary: Denies: Dysuria Musculoskeletal: Denies: Joint Pain, Joint Tenderness Skin: Denies: Rash, Wounds Neurological: Denies: Numbness, Tingling, Focal weakness Psychiatric: Denies: Anxiety, Depression, Homicidal Ideations, Suicidal Ideations Hematologic/ Lymphatic: Denies: Hx of blood clot Patient Problems: Active and Suspected Problems Lactic acidosis (Acute) Acute respiratory failure with hypoxia (Acute) Acute kidney injury (Acute) Objective: The patient's most recent lab work, culture data and imaging studies have all been personally reviewed. Surface echocardiogram dated September 2020 revealed an ejection fraction of 65% and stage I diastolic dysfunction. Both rapid antigen and PCR coronavirus testing was negative on December 06. Strep and urine Legionella antigens were negative. Respiratory viral panel was negative. Blood and urine cultures are pending. - Physical Exam Vitals/I&O's: Vital Signs Temp Pulse Resp BP Pulse Ox 99.8 F H 108 H 18 121/53 H 98 12/07/20 05:00 12/07/20 05:11 12/07/20 05:11 12/07/20 05:00 12/07/20 05:11 Oxygen Flow Rate (L/min) 30 Oxygen Delivery Method Airvo Weight: 287 lb 0.67 oz Body Mass Index (BMI) 46.0 Finger Stick Blood Glucose 152 Intake and Output for Last 24 Hours 12/05/20 12/06/20 12/07/20 23:59 23:59 23:59 Intake Total 3422.55 / 3542.55 1370 / 1370 Output Total 500 / 500 Balance 3422.55 / 3092.55 870 / 870 General: Alert, Cooperative, No apparent distress, - - Morbidly obese HEENT: Atraumatic, PERRLA, Normocephalic Oral: No Gingival or Mucosal Lesions/ Ulcerations Neck: Supple, No Nodes, Trachea Midline Lungs: No rhonchi, No wheeze, No rales, Diminished Cardiovascular: Normal S1, Normal S2, Tachycardic Abdomen: Bowel Sounds Present, Soft, Non Tender, Obese Extremities: No clubbing, No cyanosis, Edema Skin: No breakdown Musculoskeletal: No Muscle Wasting Lymphatic: No Cervical, Supraclavicular, or Inguinal Adenopathy Neurological: Cranial nerves II-XII grossly intact, Neuro grossly intact Psych/Mental Status: Normal Affect, Appropriate Labs (Last 48 Hours) 12/06/20 12/06/20 12/06/20 17:35 17:35 17:35 WBC 15.6 H RBC 4.13 L Hgb 12.8 Hct 42.2 MCV 102.2 H MCH 31.0 MCHC 30.3 L RDW Std Deviation 58.8 H RDW Coeff of Espinoza 15.6 H Plt Count 291 MPV 10.5 Immature Gran % (Auto) 0.300 Neut % (Auto) 73.8 H Lymph % (Auto) 23.3 [place] % (Auto) 1.7 Eos % (Auto) 0.8 Baso % (Auto) 0.1 Absolute Neuts (auto) 11.6 H Absolute Lymphs (auto) 3.65 Nucleated RBC % 0 PT 13.2 INR 1.1 APTT 26.9 D-Dimer Quant (PE/DVT) Sodium 139 Potassium 3.3 L Chloride 103 Carbon Dioxide 22.0 Anion Gap 14 BUN 23 H Creatinine 1.36 H Estim Creat Clear Calc 33.46 Est GFR (MDRD) Af Amer 49 L Est GFR (MDRD) Non-Af 40 L BUN/Creatinine Ratio 16.9 Glucose 267 H Hemoglobin A1c Lactic Acid Calcium 8.9 Magnesium Ferritin Total Bilirubin 0.30 AST 21 ALT 20 Alkaline Phosphatase 113 Lactate Dehydrogenase Total Creatine Kinase 77 Troponin I < 0.015 C-React Prot Ext Range B-Natriuretic Peptide Total Protein 6.2 L Albumin 3.0 L Globulin 3.2 Albumin/Globulin Ratio 0.9 Triglycerides Cholesterol LDL Cholesterol VLDL Cholesterol HDL Cholesterol Procalcitonin TSH Free T4 Urine Color Urine Clarity Urine pH Ur Specific [place] Urine Protein Urine Glucose (UA) Urine Ketones Urine Occult Blood Urine Nitrite Urine Bilirubin Urine Urobilinogen Ur Leukocyte Esterase Urine RBC Urine WBC Ur Squamous Epith Cells Urine Bacteria Urine Mucus COVID-19 ([facility]) 12/06/20 12/06/20 12/06/20 17:35 17:35 17:35 WBC RBC Hgb Hct MCV MCH MCHC RDW Std Deviation RDW Coeff of Espinoza Plt Count MPV Immature Gran % (Auto) Neut % (Auto) Lymph % (Auto) [place] % (Auto) Eos % (Auto) Baso % (Auto) Absolute Neuts (auto) Absolute Lymphs (auto) Nucleated RBC % PT INR APTT D-Dimer Quant (PE/DVT) 8.88 H* Sodium Potassium Chloride Carbon Dioxide Anion Gap BUN Creatinine Estim Creat Clear Calc Est GFR (MDRD) Af Amer Est GFR (MDRD) Non-Af BUN/Creatinine Ratio Glucose Hemoglobin A1c Lactic Acid 7.9 H* Calcium Magnesium Ferritin Total Bilirubin AST ALT Alkaline Phosphatase Lactate Dehydrogenase Total Creatine Kinase Troponin I C-React Prot Ext Range B-Natriuretic Peptide 4.6 Total Protein Albumin Globulin Albumin/Globulin Ratio Triglycerides Cholesterol LDL Cholesterol VLDL Cholesterol HDL Cholesterol Procalcitonin TSH Free T4 Urine Color Urine Clarity Urine pH Ur Specific [place] Urine Protein Urine Glucose (UA) Urine Ketones Urine Occult Blood Urine Nitrite Urine Bilirubin Urine Urobilinogen Ur Leukocyte Esterase Urine RBC Urine WBC Ur Squamous Epith Cells Urine Bacteria Urine Mucus COVID-19 ([facility]) 12/06/20 12/06/20 12/06/20 18:15 20:29 20:50 WBC RBC Hgb Hct MCV MCH MCHC RDW Std Deviation RDW Coeff of Espinoza Plt Count MPV Immature Gran % (Auto) Neut % (Auto) Lymph % (Auto) [place] % (Auto) Eos % (Auto) Baso % (Auto) Absolute Neuts (auto) Absolute Lymphs (auto) Nucleated RBC % PT INR APTT D-Dimer Quant (PE/DVT) Sodium Potassium Chloride Carbon Dioxide Anion Gap BUN Creatinine Estim Creat Clear Calc Est GFR (MDRD) Af Amer Est GFR (MDRD) Non-Af BUN/Creatinine Ratio Glucose Hemoglobin A1c Lactic Acid Calcium Magnesium Ferritin Total Bilirubin AST ALT Alkaline Phosphatase Lactate Dehydrogenase Total Creatine Kinase Troponin I 0.194 H C-React Prot Ext Range B-Natriuretic Peptide Total Protein Albumin Globulin Albumin/Globulin Ratio Triglycerides Cholesterol LDL Cholesterol VLDL Cholesterol HDL Cholesterol Procalcitonin TSH 4.19 H Free T4 Urine Color Yellow Urine Clarity Clear Urine pH 6.0 Ur Specific [place] 1.020 Urine Protein 30 H Urine Glucose (UA) Normal Urine Ketones Negative Urine Occult Blood Negative Urine Nitrite Negative Urine Bilirubin Negative Urine Urobilinogen Normal Ur Leukocyte Esterase 25 H Urine RBC 0 SEEN Urine WBC 0 SEEN Ur Squamous Epith Cells 0-5 SEEN Urine Bacteria 0 SEEN Urine Mucus 0 SEEN COVID-19 ([facility]) Not Detected 12/06/20 12/06/20 12/06/20 22:24 23:30 23:30 WBC RBC Hgb Hct MCV MCH MCHC RDW Std Deviation RDW Coeff of Espinoza Plt Count MPV Immature Gran % (Auto) Neut % (Auto) Lymph % (Auto) [place] % (Auto) Eos % (Auto) Baso % (Auto) Absolute Neuts (auto) Absolute Lymphs (auto) Nucleated RBC % PT INR APTT D-Dimer Quant (PE/DVT) Sodium Potassium Chloride Carbon Dioxide Anion Gap BUN Creatinine Estim Creat Clear Calc Est GFR (MDRD) Af Amer Est GFR (MDRD) Non-Af BUN/Creatinine Ratio Glucose Hemoglobin A1c Lactic Acid 4.3 H* Calcium Magnesium 1.7 Ferritin 62 Total Bilirubin AST ALT Alkaline Phosphatase Lactate Dehydrogenase 223 Total Creatine Kinase Troponin I C-React Prot Ext Range 16.00 H B-Natriuretic Peptide Total Protein Albumin Globulin Albumin/Globulin Ratio Triglycerides Cholesterol LDL Cholesterol VLDL Cholesterol HDL Cholesterol Procalcitonin 1.70 H TSH Free T4 0.94 Urine Color Urine Clarity Urine pH Ur Specific [place] Urine Protein Urine Glucose (UA) Urine Ketones Urine Occult Blood Urine Nitrite Urine Bilirubin Urine Urobilinogen Ur Leukocyte Esterase Urine RBC Urine WBC Ur Squamous Epith Cells Urine Bacteria Urine Mucus COVID-19 ([facility]) 12/06/20 12/07/20 12/07/20 23:30 03:30 03:30 WBC 18.0 H RBC 3.80 L Hgb 12.0 Hct 38.2 MCV 100.5 H MCH 31.6 MCHC 31.4 L RDW Std Deviation 57.0 H RDW Coeff of Espinoza 15.4 H Plt Count 242 MPV 10.1 Immature Gran % (Auto) 0.500 Neut % (Auto) 95.2 H Lymph % (Auto) 3.3 L [place] % (Auto) 0.8 Eos % (Auto) 0.1 Baso % (Auto) 0.1 Absolute Neuts (auto) 17.1 H Absolute Lymphs (auto) 0.59 L Nucleated RBC % 0 PT INR APTT D-Dimer Quant (PE/DVT) Sodium Potassium Chloride Carbon Dioxide Anion Gap BUN Creatinine Estim Creat Clear Calc Est GFR (MDRD) Af Amer Est GFR (MDRD) Non-Af BUN/Creatinine Ratio Glucose Hemoglobin A1c Pending Lactic Acid Calcium Magnesium Ferritin Total Bilirubin AST ALT Alkaline Phosphatase Lactate Dehydrogenase Total Creatine Kinase Troponin I 0.343 H C-React Prot Ext Range B-Natriuretic Peptide Total Protein Albumin Globulin Albumin/Globulin Ratio Triglycerides Cholesterol LDL Cholesterol VLDL Cholesterol HDL Cholesterol Procalcitonin TSH Free T4 Urine Color Urine Clarity Urine pH Ur Specific [place] Urine Protein Urine Glucose (UA) Urine Ketones Urine Occult Blood Urine Nitrite Urine Bilirubin Urine Urobilinogen Ur Leukocyte Esterase Urine RBC Urine WBC Ur Squamous Epith Cells Urine Bacteria Urine Mucus COVID-19 ([facility]) 12/07/20 12/07/20 12/07/20 03:30 03:30 03:30 WBC RBC Hgb Hct MCV MCH MCHC RDW Std Deviation RDW Coeff of Espinoza Plt Count MPV Immature Gran % (Auto) Neut % (Auto) Lymph % (Auto) [place] % (Auto) Eos % (Auto) Baso % (Auto) Absolute Neuts (auto) Absolute Lymphs (auto) Nucleated RBC % PT INR APTT D-Dimer Quant (PE/DVT) Sodium 141 Potassium 5.2 H Chloride 111 H Carbon Dioxide 25.0 Anion Gap 5 BUN 24 H Creatinine 1.16 H Estim Creat Clear Calc 39.23 Est GFR (MDRD) Af Amer 59 L Est GFR (MDRD) Non-Af 48 L BUN/Creatinine Ratio 20.7 H Glucose 146 H Hemoglobin A1c Lactic Acid 2.4 H* Calcium 7.6 L Magnesium Ferritin Total Bilirubin 0.20 AST 39 H ALT 24 Alkaline Phosphatase 95 Lactate Dehydrogenase Total Creatine Kinase Troponin I 0.433 H C-React Prot Ext Range B-Natriuretic Peptide Total Protein 6.0 L Albumin 2.7 L Globulin 3.3 Albumin/Globulin Ratio 0.8 L Triglycerides 43 Cholesterol 144 LDL Cholesterol 81 VLDL Cholesterol 9 HDL Cholesterol 54 Procalcitonin TSH Free T4 Urine Color Urine Clarity Urine pH Ur Specific [place] Urine Protein Urine Glucose (UA) Urine Ketones Urine Occult Blood Urine Nitrite Urine Bilirubin Urine Urobilinogen Ur Leukocyte Esterase Urine RBC Urine WBC Ur Squamous Epith Cells Urine Bacteria Urine Mucus COVID-19 ([facility]) Microbiology 12/06/20 18:15 Urine Catheter - Catheter Legionella Antigen - Final 12/06/20 18:15 Urine Catheter - Catheter Streptococcus pneumoniae Antigen (M - Final 12/06/20 20:50 Mucosa - Nasopharyngeal Respiratory Panel (PCR) - Final 12/06/20 18:00 Mucosa - Nose SARS-CoV-2 Antigen (Rapid) - Final Clinical Impression(s) from Imaging Studies Abdomen/Pelvis CT 12/06/20 17:33 IMPRESSION: No acute abdominal or pelvic pathology. Electronically Signed: Shmuel Orr MD at 19:49 EST Tel , Service support , Chest X-Ray 12/06/20 19:25 IMPRESSION: The patient is status post bilateral shoulder arthroplasty. Electronically Signed: Shmuel Orr MD at 19:49 EST Tel , Service support , Current Medications Acetaminophen (Acetaminophen 325 Mg Tablet) 650 mg PO Q6H PRN PRN PRN Reason: Pain Score 1-10/Temp > 100.7 F Al Hydroxide/Mg Hydroxide (Mag Hydrox/Al Hydrox/Simeth 30 Ml Udc) 30 ml PO Q6H PRN PRN PRN Reason: Gastric Burning Albuterol Sulfate (Albuterol Ih 8.5 Gm (Proair) Inhaler (200 Puffs)) 4 - 8 puff INHALATION Q4H PRN PRN PRN Reason: Dyspnea, wheezing Albuterol Sulfate (Albuterol Ih 8.5 Gm (Proair) Inhaler (200 Puffs)) 1 puff INHALATION Q6HWA.RT MARIE Aspirin (Aspirin E.C. 81 Mg Tablet) 81 mg PO DAILY MARIE Atorvastatin Calcium (Atorvastatin Calcium 20 Mg Tablet) 20 mg PO QHS MARIE Calamine/Phenol (Menthol/Lanolin/Calamine/Znox 113 Gm Tube) 1 applic TOPICAL 4X/DAY MARIE; Protocol Clonazepam (Clonazepam 1 Mg Tablet) 1 mg PO QHS [facility] Last Admin: 12/07/20 00:04 Dose: 1 mg Documented by: Dexamethasone Sodium Phosphate (Dexamethasone 4 Mg/Ml Vial) 6 mg IV DAILY [facility] Last Admin: 12/06/20 23:59 Dose: 6 mg Documented by: Famotidine (Famotidine 20 Mg Tablet) 20 mg PO BID [facility] Folic Acid (Folic Acid 1 Mg Tablet) 1 mg PO DAILY [facility] Guaifenesin (Guaifenesin 10 Ml Udc (200mg/10ml)) 10 ml PO Q4H PRN PRN PRN Reason: COUGH Heparin Sodium (Porcine) (Heparin Injection (Vial) 5,000 Unit/Ml Vial) 0 unit IV UD PRN; Protocol PRN Reason: dose adjustment Hydralazine HCl (Hydralazine 20 Mg/Ml Vial) 10 mg IV Q4H PRN PRN PRN Reason: SBP > 160 Hydrochlorothiazide (Hydrochlorothiazide 25 Mg Tablet) 25 mg PO DAILY [facility] Ceftriaxone Sodium 2 gm/ (Sodium Chloride) 50 mls @ 100 mls/hr IV Q24 MARIE Sodium Chloride () 1,000 mls @ 100 mls/hr IV .Q10H MARIE Last Admin: 12/07/20 00:00 Dose: 100 mls/hr Documented by: Heparin Sodium/Dextrose () 25,000 units in 250 mls @ 17 mls/hr IV .[id number] [facility]; Protocol Last Admin: 12/07/20 00:05 Dose: 1,700 units/hr, 17 mls/hr Documented by: Remdesivir 100 mg/ Sodium (Chloride) 250 mls @ 125 mls/hr IV Q24H [facility] Stop: 12/10/20 23:59 Sodium Chloride () 250 mls @ 15 mls/hr IV .[id number] PRN PRN Reason: Saline Flush Sodium Chloride () 250 mls @ 15 mls/hr IV .[id number] PRN PRN Reason: Additional IVPB Infusion Insulin Human Lispro (Insulin Lispro 100 Unit/Ml Insuln.Pen) 0 unit SC ACHS [facility]; Protocol Levothyroxine Sodium (Levothyroxine 50 Mcg Tablet) 50 mcg PO DAILY [facility] Losartan Potassium (Losartan Potassium 50 Mg Tablet) 50 mg PO DAILY [facility] Melatonin (Melatonin 3 Mg Tablet) 3 mg PO QHS PRN PRN PRN Reason: INSOMNIA Morphine Sulfate (Morphine 2 Mg/Ml Syringe) 2 mg IV Q3H PRN PRN PRN Reason: Pain Score 6-10 Nitroglycerin (Nitroglycerin (Inpatient Use) 0.4 Mg Tab.Subl) 0.4 mg SUBLINGUAL Q5M PRN PRN Reason: CARDIAC/CHEST PAIN Nystatin (Nystatin Powder 15gm Bottle) 1 applic TOPICAL TID [facility]; Protocol Ondansetron HCl (Ondansetron 4 Mg/2 Ml Vial) 4 mg IV Q8H PRN PRN PRN Reason: NAUSEA/VOMITING Oxycodone HCl (Oxycodone 5 Mg Tablet) 5 mg PO TID [facility] Oxycodone HCl (Oxycodone 5 Mg Tablet) 5 mg PO Q8H PRN PRN PRN Reason: Pain Score 4-5 Prochlorperazine Edisylate (Prochlorperazine 10 Mg/2 Ml Vial) 5 mg IV Q4H PRN PRN PRN Reason: Breakthrough Nausea/Vomiting Sodium Chloride (0.9% Saline Lock 10 Ml Syringe) 10 - 40 ml IV UD PRN PRN Reason: SALINE FLUSH Sulfasalazine (Sulfasalazine 500 Mg Tablet) 1,000 mg PO BID [facility] Last Admin: 12/06/20 23:59 Dose: 1,000 mg Documented by: Throat Lozenges (Benzocaine/Menthol 1 Lozenge) 1 lozenge MUCOUS MEM Q2H PRN PRN PRN Reason: SORE THROAT Venlafaxine HCl (Venlafaxine Xr 150 Mg Capsule) 150 mg PO DAILY [facility] Assessment/Plan Active and Suspected Problems Lactic acidosis (Acute) Acute respiratory failure with hypoxia (Acute) Acute kidney injury (Acute) RECOMMENDATIONS: 1. Given presenting hypoxemia, tachycardic, tachypnea and elevated D-dimer, obtain CTA chest. 2. Transition patient from heated high flow to conventional nasal cannula supplemental oxygen. Wean to maintain saturations at or above 90%. 3. Send SARS serology. 4. Continue heparin infusion, pending CTA chest. 5. Stop continuous supplemental IV fluids. 6. Continue bronchodilators. 7. Encourage incentive spirometer use and mobilize patient as tolerated. IMPRESSIONS: 1. Acute hypoxemic respiratory failure The patient initially presented to the hospital primarily with GI related complaints and was noted to be hypoxemic. She did have an elevated D-dimer. Initial chest imaging including CT abdomen which revealed the bases of the lungs revealed atelectasis. The patient's supplemental oxygen has been weaned quickly over the course of the morning. Rapid coronavirus antigen testing and PCR were both negative. I do have a low index of suspicion that the patient has coronavirus. We will check SARS serology. I do strongly recommend that the patient undergo a CTA chest to evaluate for the presence of PE. In the interim, the patient will be continued on a heparin infusion. Continue to wean oxygen as tolerated. Encourage aggressive incentive spirometer use and mobilize patient as tolerated. 2. Septic shock The patient did meet septic shock criteria due to an elevated lactate level. I do suspect that her elevated lactate was likely secondary to hypoxia. I will defer the need for antimicrobials to infectious diseases, who is currently consulted. 3. Acute kidney injury Improving. Likely prerenal in etiology. Anticipate further improvement with volume expansion. Continue to monitor urine output. No current indication for renal replacement therapy. 4. Morbid obesity/hypertension/rheumatoid arthritis/hyperlipidemia/anxiety/hypothyroidism Complicates care, management, recovery and prognosis. Continue home medications as indicated. This note was generated with [employer] dictation software. It may contain incorrect words, spelling, and punctuation that were not noted in checking the note before signing. Inpatient E&M: 37561 Init Hosp L3
[2020-12-07] MEDS: Nystatin Powder 15gm Bottle 1 APPLIC TOPICAL ×3 (05:50→22:33)
[2020-12-07] MEDS: oxyCODONE 5 MG Tablet PO (05:51)
--- NOTE | 2020-12-07 05:55 | CT_ITS ---
HISTORY: SUSPECTED PE,SOB HX:HTN,COPD,CKD STAGE 3,RT SHOULDER SURGERY ADDITIONAL HISTORY: None provided. EXAMINATION/TECHNIQUE: CTA Chest WO/W Contrast Injection PULMONARY EMBOLISM PROTOCOL: 2D and 3D images to include MIP and/or volume rendered images IV CONTRAST: IV 100mL [id number] Number of images including paperwork: [id number] A radiation dose optimization technique was used for this scan. COMPARISON: 10/10/2016 FINDINGS: PULMONARY ARTERIES: No central or large peripheral filling defects. Subsegmental evaluation limited due to contrast bolus timing and motion artifact. AORTA AND GREAT VESSELS: No dissection. Vascular tortuosity and atherosclerotic plaque. HEART/PERICARDIUM: Mildly to moderately enlarged heart. Coronary calcification. MEDIASTINUM: Unremarkable. ADENOPATHY: No pathologic appearing adenopathy. THYROID: Heterogeneous thyroid. Nodule abutting the inferior aspect of the left thyroid lobe may be slightly larger when compared with previous, currently measuring 1.6 x 2.5 cm, less well visualized on the prior study due to beam hardening artifact. Follow-up nonemergent thyroid ultrasound could further evaluate. LUNG PARENCHYMA: Bibasilar opacities with volume loss noted in the lower lobes and lingula, nonspecific and possibly related to subsegmental atelectasis and/or scarring. No dense consolidation. Mild basal bronchiectasis appear similar. Left hemidiaphragm elevation again seen. PLEURAL SPACES: Unremarkable. UPPER ABDOMEN: Unremarkable. OSSEOUS AND SOFT TISSUE STRUCTURES: No acute skeletal findings. Artifact from shoulder prostheses. Degenerative changes. CT/CTA Chest W/WO Contrast IMPRESSION: 1. No central or large peripheral pulmonary embolus. 2. Bibasilar subsegmental atelectasis and/or scarring. 3. Additional findings above. Individualized dose optimization techniques were used for this CT. at 0008 Reported and signed by: Mirtha Greer MD Electronically Signed: Mirtha Greer MD at 0:08 EST Tel , Service support ,
[2020-12-07 06:31] LABS: Partial Thromboplast Time > 250.0 Seconds (24.1-36.2)
[2020-12-07 07:40] LABS: Reflex Lactate? Y
--- NOTE | 2020-12-07 07:43 | PCS.PANDOC ---
PANDEMIC DOCUMENTATION INITIATED: Date: 12/06/20 Time: 2163
[2020-12-07] MEDS: 0.9% Saline Lock 10 ML Syringe IV ×3 (08:40→22:23)
[2020-12-07 08:42] LABS: SARS-COV-2 TOTAL ABS Nonreactive (Nonreactive)
[2020-12-07] MEDS: sulfaSALAzine 500 MG Tablet 1000 MG PO ×2 (08:44→22:29)
[2020-12-07] MEDS: hydroCHLOROthiazide 25 MG Tablet PO (08:45)
[2020-12-07] MEDS: Venlafaxine XR 150 MG Capsule PO (08:45)
[2020-12-07] MEDS: Losartan Potassium 50 MG Tablet PO (08:45)
[2020-12-07] MEDS: Aspirin E.C. 81 MG Tablet PO (08:45)
[2020-12-07] MEDS: Levothyroxine 50 MCG Tablet PO (08:46)
[2020-12-07] MEDS: Folic Acid 1 MG Tablet PO (08:46)
[2020-12-07 09:01] LABS: Bedside Glucose 121 mg/dL (70-110)
--- NOTE | 2020-12-07 10:34 | PCM.PN.HOSP ---
Patient Problems: Active and Suspected Problems Lactic acidosis (Acute) Acute respiratory failure with hypoxia (Acute) Acute kidney injury (Acute) Subjective: Patient seen and exmained. She was admitted with a complaint of nausea, vomiting and diarrhea. She denied any shortness of breath on admission. However she was found to be saturating at 80% on room air and WBC was elevated at 15,000. D-dimer was also elevated at 8.8. Lactic acid of 7.A. CT of the abdomen and pelvis were unremarkable and chest x-ray reviewed basilar atelectasis without focal infiltrate. She was started on antibiotics and also started on Decadron and remdesivir due to concerns about Covid 19 infection. Covid antigen test done was negative. PCR test done also came back negative. Patient feels much better today. Diarrhea has resolved. She denies shortness of breath and has been weaned off of oxygen. Review systems otherwise negative. Vitals this morning seem to show temperature of 99.8 Fahrenheit with pulse rate of 107 and respiratory rate of 14. Potassium was 5.2 and lactic acid is 2.4. Vitals/I&O's: Vital Signs Temp Pulse Resp BP Pulse Ox 99.8 F H 107 H 14 140/37 H 97 12/07/20 07:00 12/07/20 07:00 12/07/20 07:00 12/07/20 07:00 12/07/20 07:00 Oxygen Flow Rate (L/min) 30 Oxygen Delivery Method Airvo Weight: 287 lb 0.67 oz Body Mass Index (BMI) 46.0 Finger Stick Blood Glucose 152 Intake and Output for Last 24 Hours 12/05/20 12/06/20 12/07/20 23:59 23:59 23:59 Intake Total 3422.55 / 3542.55 2150.22 / 2150.22 Output Total 550 / 550 Balance 3422.55 / 3092.55 1600.22 / 1600.22 General: Alert, Oriented x3, Cooperative, No apparent distress, - - morbidly obese HEENT: Atraumatic, PERRLA, EOMI, Normocephalic Oral: Dry Mucosa Neck: Supple, No JVD, Negative Carotid Bruits Lungs: Clear to auscultation, Normal air movement, No rhonchi, No wheeze, No rales Cardiovascular: Regular rate, Regular Rhythm, Normal S1, Normal S2, No murmurs Abdomen: Bowel Sounds Present, Soft, Non Tender, Non-Distended, No Hepato-splenomegaly Extremities: No clubbing, No cyanosis, No edema, Capillary Refill Less than 3 Seconds Skin: No rashes, No breakdown Musculoskeletal: No Tenderness to Palpation of Joints or Extremities Lymphatic: No Cervical, Supraclavicular, or Inguinal Adenopathy Neurological: Cranial nerves II-XII grossly intact, Neuro grossly intact, Motor Exam 5/5 strength throughout Psych/Mental Status: Normal Affect, Appropriate, Alert and oriented to time, place, person, mood and affect Microbiology Past 72 Hours 12/06/20 18:15 Urine Catheter - Catheter Legionella Antigen - Final 12/06/20 18:15 Urine Catheter - Catheter Streptococcus pneumoniae Antigen (M - Final 12/06/20 20:50 Mucosa - Nasopharyngeal Respiratory Panel (PCR) - Final 12/06/20 18:00 Mucosa - Nose SARS-CoV-2 Antigen (Rapid) - Final Laboratory Results 12/06/20 17:35: WBC 15.6 H, RBC 4.13 L, Hgb 12.8, Hct 42.2, MCV 102.2 H, MCH 31.0, MCHC 30.3 L, RDW Std Deviation 58.8 H, RDW Coeff of Espinoza 15.6 H, Plt Count 291, MPV 10.5, Immature Gran % (Auto) 0.300, Neut % (Auto) 73.8 H, Lymph % (Auto) 23.3, [place] % (Auto) 1.7, Eos % (Auto) 0.8, Baso % (Auto) 0.1, Absolute Neuts (auto) 11.6 H, Absolute Lymphs (auto) 3.65, Nucleated RBC % 0 12/06/20 17:35: PT 13.2, INR 1.1, APTT 26.9 12/06/20 17:35: Sodium 139, Potassium 3.3 L, Chloride 103, Carbon Dioxide 22.0, Anion Gap 14, BUN 23 H, Creatinine 1.36 H, Estim Creat Clear Calc 33.46, Est GFR (MDRD) Af Amer 49 L, Est GFR (MDRD) Non-Af 40 L, BUN/Creatinine Ratio 16.9, Glucose 267 H, Calcium 8.9, Total Bilirubin 0.30, AST 21, ALT 20, Alkaline Phosphatase 113, Total Creatine Kinase 77, Troponin I < 0.015, Total Protein 6.2 L, Albumin 3.0 L, Globulin 3.2, Albumin/Globulin Ratio 0.9 12/06/20 17:35: Lactic Acid 7.9 H* 12/06/20 17:35: B-Natriuretic Peptide 4.6 12/06/20 17:35: D-Dimer Quant (PE/DVT) 8.88 H* 12/06/20 18:15: Urine Color Yellow, Urine Clarity Clear, Urine pH 6.0, Ur Specific [place] 1.020, Urine Protein 30 H, Urine Glucose (UA) Normal, Urine Ketones Negative, Urine Occult Blood Negative, Urine Nitrite Negative, Urine Bilirubin Negative, Urine Urobilinogen Normal, Ur Leukocyte Esterase 25 H, Urine RBC 0 SEEN, Urine WBC 0 SEEN, Ur Squamous Epith Cells 0-5 SEEN, Urine Bacteria 0 SEEN, Urine Mucus 0 SEEN 12/06/20 20:29: Troponin I 0.194 H, TSH 4.19 H 12/06/20 20:50: COVID-19 ([facility]) Not Detected 12/06/20 22:24: Lactic Acid 4.3 H* 12/06/20 23:30: Magnesium 1.7, Ferritin 62, Lactate Dehydrogenase 223, C-React Prot Ext Range 16.00 H, Free T4 0.94 12/06/20 23:30: Procalcitonin 1.70 H 12/06/20 23:30: Troponin I 0.343 H 12/06/20 23:30: SARS Serology Nonreactive 12/07/20 03:30: Hemoglobin A1c Pending 12/07/20 03:30: WBC 18.0 H, RBC 3.80 L, Hgb 12.0, Hct 38.2, MCV 100.5 H, MCH 31.6, MCHC 31.4 L, RDW Std Deviation 57.0 H, RDW Coeff of Espinoza 15.4 H, Plt Count 242, MPV 10.1, Immature Gran % (Auto) 0.500, Neut % (Auto) 95.2 H, Lymph % (Auto) 3.3 L, [place] % (Auto) 0.8, Eos % (Auto) 0.1, Baso % (Auto) 0.1, Absolute Neuts (auto) 17.1 H, Absolute Lymphs (auto) 0.59 L, Nucleated RBC % 0 12/07/20 03:30: Sodium 141, Potassium 5.2 H, Chloride 111 H, Carbon Dioxide 25.0, Anion Gap 5, BUN 24 H, Creatinine 1.16 H, Estim Creat Clear Calc 39.23, Est GFR (MDRD) Af Amer 59 L, Est GFR (MDRD) Non-Af 48 L, BUN/Creatinine Ratio 20.7 H, Glucose 146 H, Calcium 7.6 L, Total Bilirubin 0.20, AST 39 H, ALT 24, Alkaline Phosphatase 95, Total Protein 6.0 L, Albumin 2.7 L, Globulin 3.3, Albumin/Globulin Ratio 0.8 L, Triglycerides 43, Cholesterol 144, LDL Cholesterol 81, VLDL Cholesterol 9, HDL Cholesterol 54 12/07/20 03:30: Troponin I 0.433 H 12/07/20 03:30: Lactic Acid 2.4 H* 12/07/20 06:00: APTT > 250.0 H* 12/07/20 08:35: POC Glucose 121 H Diagnostic Data Abdomen/Pelvis CT 12/06/20 17:33 IMPRESSION: No acute abdominal or pelvic pathology. Electronically Signed: Shmuel Orr MD at 19:49 EST Tel , Service support , Chest X-Ray 12/06/20 19:25 IMPRESSION: The patient is status post bilateral shoulder arthroplasty. Electronically Signed: Shmuel Orr MD at 19:49 EST Tel , Service support , Current Medications Acetaminophen (Acetaminophen 325 Mg Tablet) 650 mg PO Q6H PRN PRN PRN Reason: Pain Score 1-10/Temp > 100.7 F Al Hydroxide/Mg Hydroxide (Mag Hydrox/Al Hydrox/Simeth 30 Ml Udc) 30 ml PO Q6H PRN PRN PRN Reason: Gastric Burning Albuterol Sulfate (Albuterol Ih 8.5 Gm (Proair) Inhaler (200 Puffs)) 4 - 8 puff INHALATION Q4H PRN PRN PRN Reason: Dyspnea, wheezing Albuterol Sulfate (Albuterol Ih 8.5 Gm (Proair) Inhaler (200 Puffs)) 1 puff INHALATION Q6HWA.RT [facility] Aspirin (Aspirin E.C. 81 Mg Tablet) 81 mg PO DAILY [facility] Last Admin: 12/07/20 08:45 Dose: 81 mg Documented by: Atorvastatin Calcium (Atorvastatin Calcium 20 Mg Tablet) 20 mg PO QHS [facility] Calamine/Phenol (Menthol/Lanolin/Calamine/Znox 113 Gm Tube) 1 applic TOPICAL 4X/DAY [facility]; Protocol Clonazepam (Clonazepam 1 Mg Tablet) 1 mg PO QHS [facility] Last Admin: 12/07/20 00:04 Dose: 1 mg Documented by: Dexamethasone Sodium Phosphate (Dexamethasone 4 Mg/Ml Vial) 6 mg IV DAILY [facility] Stop: 12/15/20 10:01 Last Admin: 12/06/20 23:59 Dose: 6 mg Documented by: Famotidine (Famotidine 20 Mg Tablet) 20 mg PO BID [facility] Folic Acid (Folic Acid 1 Mg Tablet) 1 mg PO DAILY [facility] Last Admin: 12/07/20 08:46 Dose: 1 mg Documented by: Guaifenesin (Guaifenesin 10 Ml Udc (200mg/10ml)) 10 ml PO Q4H PRN PRN PRN Reason: COUGH Heparin Sodium (Porcine) (Heparin Injection (Vial) 5,000 Unit/Ml Vial) 0 unit IV UD PRN; Protocol PRN Reason: dose adjustment Hydralazine HCl (Hydralazine 20 Mg/Ml Vial) 10 mg IV Q4H PRN PRN PRN Reason: SBP > 160 Hydrochlorothiazide (Hydrochlorothiazide 25 Mg Tablet) 25 mg PO DAILY [facility] Last Admin: 12/07/20 08:45 Dose: 25 mg Documented by: Ceftriaxone Sodium 2 gm/ (Sodium Chloride) 50 mls @ 100 mls/hr IV Q24 MARIE Heparin Sodium/Dextrose () 25,000 units in 250 mls @ 17 mls/hr IV .[id number] [facility]; Protocol Last Titration: 12/07/20 06:34 Dose: 0 units/hr, 0 mls/hr Documented by: Remdesivir 100 mg/ Sodium (Chloride) 250 mls @ 125 mls/hr IV Q24H [facility] Stop: 12/10/20 23:59 Sodium Chloride () 250 mls @ 15 mls/hr IV .[id number] PRN PRN Reason: Saline Flush Sodium Chloride () 250 mls @ 15 mls/hr IV .[id number] PRN PRN Reason: Additional IVPB Infusion Insulin Human Lispro (Insulin Lispro 100 Unit/Ml Insuln.Pen) 0 unit SC ACHS [facility]; Protocol Last Admin: 12/07/20 08:41 Dose: Not Given Documented by: Levothyroxine Sodium (Levothyroxine 50 Mcg Tablet) 50 mcg PO DAILY [facility] Last Admin: 12/07/20 08:46 Dose: 50 mcg Documented by: Losartan Potassium (Losartan Potassium 50 Mg Tablet) 50 mg PO DAILY [facility] Last Admin: 12/07/20 08:45 Dose: 50 mg Documented by: Melatonin (Melatonin 3 Mg Tablet) 3 mg PO QHS PRN PRN PRN Reason: INSOMNIA Nitroglycerin (Nitroglycerin (Inpatient Use) 0.4 Mg Tab.Subl) 0.4 mg SUBLINGUAL Q5M PRN PRN Reason: CARDIAC/CHEST PAIN Nystatin (Nystatin Powder 15gm Bottle) 1 applic TOPICAL TID [facility]; Protocol Last Admin: 12/07/20 05:50 Dose: 1 applicatio Documented by: Ondansetron HCl (Ondansetron 4 Mg/2 Ml Vial) 4 mg IV Q8H PRN PRN PRN Reason: NAUSEA/VOMITING Prochlorperazine Edisylate (Prochlorperazine 10 Mg/2 Ml Vial) 5 mg IV Q4H PRN PRN PRN Reason: Breakthrough Nausea/Vomiting Sodium Chloride (0.9% Saline Lock 10 Ml Syringe) 10 - 40 ml IV UD PRN PRN Reason: SALINE FLUSH Last Admin: 12/07/20 08:40 Dose: 20 ml Documented by: Sodium Polystyrene Sulfonate (Sodium Polystyrene Sulfonate 15 Gm/60 Ml Udc) 30 gm PO X1 ONE Stop: 12/07/20 10:31 Sulfasalazine (Sulfasalazine 500 Mg Tablet) 1,000 mg PO BID [facility] Last Admin: 12/07/20 08:44 Dose: 1,000 mg Documented by: Throat Lozenges (Benzocaine/Menthol 1 Lozenge) 1 lozenge MUCOUS MEM Q2H PRN PRN PRN Reason: SORE THROAT Venlafaxine HCl (Venlafaxine Xr 150 Mg Capsule) 150 mg PO DAILY [facility] Last Admin: 12/07/20 08:45 Dose: 150 mg Documented by: STROKE Vital Signs/Narrative: Vital Signs Temp Pulse Resp BP Pulse Ox 12/07/20 07:00 99.8 F H 107 H 14 140/37 H 97 Medical Necessity - Tobacco Use Smoking Status: Former smoker - Patient quit cigarette tobacco usage approximately 30 years prior to current presentation with prior to this 1 pack/day since she had been 18 years old. Tobacco Use: Non-smoker Assessment/Plan All Active Problems Vision disturbance (Acute) Lactic acidosis (Acute) Acute respiratory failure with hypoxia (Acute) Acute kidney injury (Acute) #Acute hypoxic respiratory failure likely due to PE. COVID ruled out with negative rapid antigen and PCR test now weaned off oxygen. D dimer was markedly elevated titrate oxygen to maintain sats >90%. continue heparin drip until she can get CTA of the chest pulmonology on board stop decadron and remdesivir as covid test is negative. #Probable PE: as above. CTA chest pending. 2D echo ordered #Hyperkalemia: as hypokalemic on admission. Potassium now up to 5.4. Give kayexalate and monitor #Septic shock based on elevated lactic acid. this could also have been due to probable PE. still has a low grade fever today, and is also tachycardic blood cultures pending. continue IV antibiotics. ID on board #ACute kidney injury: Resolving. Creatinine is down to 1.16 from 1.36 on admission. Continue gentle hydration with IV fluids. #Rheumatoid arthritis: On sulfasalazine. Methotrexate on hold. #Hypothyroidism: On Synthroid #Morbid obesity: Complicates acute care, expected recovery and prognosis. #Diabetes mellitus: blood sugars were elevated on admssion. ISS. Accuchecks ACHS. A1C pending #anxiety and depression: on klonopin and venlafaxine #COPD: not in exacerbation: on breathing treatments. DVT prophylaxis: on heparin drip. continue until CTA chest reviewed. Inpatient E&M: [id number] Subs Hosp L3
[2020-12-07 12:05] LABS: Bedside Glucose 130 mg/dL (70-110)
[2020-12-07] MEDS: Menthol/Lanolin/Calamine/Znox 113 GM Tube 1 APPLIC TOPICAL ×2 (12:07→13:58)
[2020-12-07] MEDS: Famotidine 20 MG Tablet PO ×2 (12:08→22:30)
[2020-12-07 12:21] LABS: Potassium 4.6 mmol/L (3.5-5.1)
--- NOTE | 2020-12-07 13:14 | CASEMGMT ---
RN CM Assessment Note Intro role of CM to patient via phone to room. She is awake alert and able to participate in call. Pt states she is independent, able to complete own care and currently not needing assistance. COVID testing @ [facility] has been negative. Presentation: fatigue, malaise, shortness of breath. Diagnosis: Resp Failure and septic shock PCP: Dr. Marciano Anaya Specialists: Dr. Sánchez- rheumatology Insurance: [facility] HMO Preferred Pharmacy: [facility] Prescription Benefit: yes LNOK: Rae manley Living Arrangements: Lives independently with two daughters at home. States two story home with 3 steps into home. Pt denies needing assistance with ADL's, but uses shower bench for bathing. States she does things slowly, but able to care for self. DME: walker, rollator, comfort height commode, grab bars, cane -states does not use oxygen or cpap at home. if home oxygen is needed, does not have preference of provider. -[facility] Providers for [facility]: Jayda CHAMBERLAIN [employer] [facility]: past- but does not remember name SNF: [facility] past Patient DC Goals: Home on discharge DC Plan: anticipate home on discharge. PT/OT evaluations pending. Pt is currently on RA. CM available for discharge planning coordination. Contact CM for any concerns/needs that may arise. Amado OWEN RN ACM
[2020-12-07] MEDS: HEPARIN/D5w 25,000 UNITS 25,000 UNITS/250 ML IV.SOLN. 14 UNITS IV (13:57)
[2020-12-07 14:15] LABS: Hemoglobin A1c 5.6 % (3.8-5.6)
[2020-12-07 15:57] LABS: Partial Thromboplast Time 72.9 Seconds (24.1-36.2)
--- NOTE | 2020-12-07 15:57 | CON.PCM_ITS ---
Problem List (1) Lactic acidosis Status: Acute Reason for Consult: suspected covid Consulted by: Dr. Laureano History of Present Illness: The patient is a 75 year old F admitted overnight with one day of diarrhea, weakness. Ate chili the night before, no one else sick at home, no covid exposures. [place] fine 12/05. No fever, no change in taste or smell, no abd pain, no sore throat. Has chronic cough and aches, unchanged. came to ED, covid pcr and Ag neg. Weaned down to RA this AM, feels back to normal, no more diarrhea. Full ROS performed and neg except as noted above. 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, [facility], dr whittaker History of rheumatoid arthritis (Chronic) Allergies/Adverse Reactions: Allergies adhesive Allergy (Verified 12/06/20 17:24) Other amoxicillin trihydrate [From Augmentin] Allergy (Verified 12/06/20 17:24) Unknown latex Allergy (Verified 12/06/20 17:24) Unknown Penicillins Allergy (Verified 12/06/20 17:24) Unknown potassium clavulanate [From Augmentin] Allergy (Verified 12/06/20 17:24) Unknown tetracycline Allergy (Verified 12/06/20 17:24) Unknown Home Medications: Ambulatory Orders Medication Instructions Recorded Albuterol IH (ProAir) [Proair Hfa] 1 - 2 puff INHALATION Q6H PRN PRN 03/15/15 Hydrochlorothiazide [Hctz] 25 mg PO DAILY 03/15/15 Methotrexate 20 mg PO MO 03/15/15 Folic Acid 1 mg PO DAILY@0800 #0 tablet 03/29/15 Losartan Potassium [Cozaar] 50 mg PO DAILY #30 tablet 03/29/15 Oxycodone HCl/Acetaminophen 1 tablet PO TID 11/17/17 [Percocet 5-325] Prednisone 10 mg PO PRN PRN 07/07/19 Sulfasalazine 1,000 mg PO BID 07/07/19 Venlafaxine HCl [Venlafaxine HCl 150 mg PO DAILY 07/07/19 ER] Vit A/Vit C/Vit E/Zinc/Copper 1 tab PO DAILY 07/07/19 [Preservision Areds Tablet] Atorvastatin Calcium [Lipitor] 20 mg PO DAILY 09/19/20 Clonazepam [Klonopin] 1 mg PO QHS 09/19/20 Levothyroxine Sodium [Synthroid] 50 mcg PO DAILY 09/19/20 Magnesium Oxide [Magnesium] 400 mg PO DAILY 09/19/20 Aspirin E.C. [Ecotrin] 81 mg PO DAILY@0800 #30 tab 09/20/20 - Social History SMOKING STATUS:: Former smoker Vital Signs Temp Pulse Resp BP Pulse Ox 100.2 F H 97 18 149/56 H 99 12/07/20 11:00 12/07/20 14:43 12/07/20 11:00 12/07/20 11:00 12/07/20 15:40 Oxygen Flow Rate (L/min) 2 Oxygen Delivery Method Room Air Weight: 130.2 kg Body Mass Index (BMI) 46.0 Finger Stick Blood Glucose 152 Microbiology Past 72 Hours 12/06/20 18:15 Urine Culture - Preliminary Urine, Catheterized Culture exhibits no growth. 12/06/20 18:15 Legionella Antigen - Final Urine Catheter - Catheter Streptococcus pneumoniae Antigen (M - Final 12/06/20 20:50 Respiratory Panel (PCR) - Final Mucosa - Nasopharyngeal 12/06/20 18:00 SARS-CoV-2 Antigen (Rapid) - Final Mucosa - Nose Laboratory Tests Past 24 Hrs 12/06/20 12/06/20 12/06/20 17:35 17:35 17:35 WBC 15.6 H RBC 4.13 L Hgb 12.8 Hct 42.2 MCV 102.2 H MCH 31.0 MCHC 30.3 L RDW Std Deviation 58.8 H RDW Coeff of Espinoza 15.6 H Plt Count 291 MPV 10.5 Immature Gran % (Auto) 0.300 Neut % (Auto) 73.8 H Lymph % (Auto) 23.3 [place] % (Auto) 1.7 Eos % (Auto) 0.8 Baso % (Auto) 0.1 Absolute Neuts (auto) 11.6 H Absolute Lymphs (auto) 3.65 Nucleated RBC % 0 PT 13.2 INR 1.1 APTT 26.9 D-Dimer Quant (PE/DVT) Sodium 139 Potassium 3.3 L Chloride 103 Carbon Dioxide 22.0 Anion Gap 14 BUN 23 H Creatinine 1.36 H Estim Creat Clear Calc 33.46 Est GFR (MDRD) Af Amer 49 L Est GFR (MDRD) Non-Af 40 L BUN/Creatinine Ratio 16.9 Glucose 267 H Hemoglobin A1c Lactic Acid Calcium 8.9 Magnesium Ferritin Total Bilirubin 0.30 AST 21 ALT 20 Alkaline Phosphatase 113 Lactate Dehydrogenase Total Creatine Kinase 77 Troponin I < 0.015 C-React Prot Ext Range B-Natriuretic Peptide Total Protein 6.2 L Albumin 3.0 L Globulin 3.2 Albumin/Globulin Ratio 0.9 Triglycerides Cholesterol LDL Cholesterol VLDL Cholesterol HDL Cholesterol Procalcitonin TSH Free T4 Urine Color Urine Clarity Urine pH Ur Specific [place] Urine Protein Urine Glucose (UA) Urine Ketones Urine Occult Blood Urine Nitrite Urine Bilirubin Urine Urobilinogen Ur Leukocyte Esterase Urine RBC Urine WBC Ur Squamous Epith Cells Urine Bacteria Urine Mucus COVID-19 ([facility]) SARS Serology 12/06/20 12/06/20 12/06/20 17:35 17:35 17:35 WBC RBC Hgb Hct MCV MCH MCHC RDW Std Deviation RDW Coeff of [place] Plt Count MPV Immature Gran % (Auto) Neut % (Auto) Lymph % (Auto) [place] % (Auto) Eos % (Auto) Baso % (Auto) Absolute Neuts (auto) Absolute Lymphs (auto) Nucleated RBC % PT INR APTT D-Dimer Quant (PE/DVT) 8.88 H* Sodium Potassium Chloride Carbon Dioxide Anion Gap BUN Creatinine Estim Creat Clear Calc Est GFR (MDRD) Af Amer Est GFR (MDRD) Non-Af BUN/Creatinine Ratio Glucose Hemoglobin A1c Lactic Acid 7.9 H* Calcium Magnesium Ferritin Total Bilirubin AST ALT Alkaline Phosphatase Lactate Dehydrogenase Total Creatine Kinase Troponin I C-React Prot Ext Range B-Natriuretic Peptide 4.6 Total Protein Albumin Globulin Albumin/Globulin Ratio Triglycerides Cholesterol LDL Cholesterol VLDL Cholesterol HDL Cholesterol Procalcitonin TSH Free T4 Urine Color Urine Clarity Urine pH Ur Specific [place] Urine Protein Urine Glucose (UA) Urine Ketones Urine Occult Blood Urine Nitrite Urine Bilirubin Urine Urobilinogen Ur Leukocyte Esterase Urine RBC Urine WBC Ur Squamous Epith Cells Urine Bacteria Urine Mucus COVID-19 ([facility]) SARS Serology 12/06/20 12/06/20 12/06/20 18:15 20:29 20:50 WBC RBC Hgb Hct MCV MCH MCHC RDW Std Deviation RDW Coeff of [place] Plt Count MPV Immature Gran % (Auto) Neut % (Auto) Lymph % (Auto) [place] % (Auto) Eos % (Auto) Baso % (Auto) Absolute Neuts (auto) Absolute Lymphs (auto) Nucleated RBC % PT INR APTT D-Dimer Quant (PE/DVT) Sodium Potassium Chloride Carbon Dioxide Anion Gap BUN Creatinine Estim Creat Clear Calc Est GFR (MDRD) Af Amer Est GFR (MDRD) Non-Af BUN/Creatinine Ratio Glucose Hemoglobin A1c Lactic Acid Calcium Magnesium Ferritin Total Bilirubin AST ALT Alkaline Phosphatase Lactate Dehydrogenase Total Creatine Kinase Troponin I 0.194 H C-React Prot Ext Range B-Natriuretic Peptide Total Protein Albumin Globulin Albumin/Globulin Ratio Triglycerides Cholesterol LDL Cholesterol VLDL Cholesterol HDL Cholesterol Procalcitonin TSH 4.19 H Free T4 Urine Color Yellow Urine Clarity Clear Urine pH 6.0 Ur Specific [place] 1.020 Urine Protein 30 H Urine Glucose (UA) Normal Urine Ketones Negative Urine Occult Blood Negative Urine Nitrite Negative Urine Bilirubin Negative Urine Urobilinogen Normal Ur Leukocyte Esterase 25 H Urine RBC 0 SEEN Urine WBC 0 SEEN Ur Squamous Epith Cells 0-5 SEEN Urine Bacteria 0 SEEN Urine Mucus 0 SEEN COVID-19 ([facility]) Not Detected SARS Serology 12/06/20 12/06/20 12/06/20 22:24 23:30 23:30 WBC RBC Hgb Hct MCV MCH MCHC RDW Std Deviation RDW Coeff of [place] Plt Count MPV Immature Gran % (Auto) Neut % (Auto) Lymph % (Auto) [place] % (Auto) Eos % (Auto) Baso % (Auto) Absolute Neuts (auto) Absolute Lymphs (auto) Nucleated RBC % PT INR APTT D-Dimer Quant (PE/DVT) Sodium Potassium Chloride Carbon Dioxide Anion Gap BUN Creatinine Estim Creat Clear Calc Est GFR (MDRD) Af Amer Est GFR (MDRD) Non-Af BUN/Creatinine Ratio Glucose Hemoglobin A1c Lactic Acid 4.3 H* Calcium Magnesium 1.7 Ferritin 62 Total Bilirubin AST ALT Alkaline Phosphatase Lactate Dehydrogenase 223 Total Creatine Kinase Troponin I C-React Prot Ext Range 16.00 H B-Natriuretic Peptide Total Protein Albumin Globulin Albumin/Globulin Ratio Triglycerides Cholesterol LDL Cholesterol VLDL Cholesterol HDL Cholesterol Procalcitonin 1.70 H TSH Free T4 0.94 Urine Color Urine Clarity Urine pH Ur Specific [place] Urine Protein Urine Glucose (UA) Urine Ketones Urine Occult Blood Urine Nitrite Urine Bilirubin Urine Urobilinogen Ur Leukocyte Esterase Urine RBC Urine WBC Ur Squamous Epith Cells Urine Bacteria Urine Mucus COVID-19 ([facility]) SARS Serology 12/06/20 12/06/20 12/07/20 23:30 23:30 03:30 WBC RBC Hgb Hct MCV MCH MCHC RDW Std Deviation RDW Coeff of [place]inoza Plt Count MPV Immature Gran % (Auto) Neut % (Auto) Lymph % (Auto) [place] % (Auto) Eos % (Auto) Baso % (Auto) Absolute Neuts (auto) Absolute Lymphs (auto) Nucleated RBC % PT INR APTT D-Dimer Quant (PE/DVT) Sodium Potassium Chloride Carbon Dioxide Anion Gap BUN Creatinine Estim Creat Clear Calc Est GFR (MDRD) Af Amer Est GFR (MDRD) Non-Af BUN/Creatinine Ratio Glucose Hemoglobin A1c 5.6 Lactic Acid Calcium Magnesium Ferritin Total Bilirubin AST ALT Alkaline Phosphatase Lactate Dehydrogenase Total Creatine Kinase Troponin I 0.343 H C-React Prot Ext Range B-Natriuretic Peptide Total Protein Albumin Globulin Albumin/Globulin Ratio Triglycerides Cholesterol LDL Cholesterol VLDL Cholesterol HDL Cholesterol Procalcitonin TSH Free T4 Urine Color Urine Clarity Urine pH Ur Specific [place] Urine Protein Urine Glucose (UA) Urine Ketones Urine Occult Blood Urine Nitrite Urine Bilirubin Urine Urobilinogen Ur Leukocyte Esterase Urine RBC Urine WBC Ur Squamous Epith Cells Urine Bacteria Urine Mucus COVID-19 ([facility]) SARS Serology Nonreactive 12/07/20 12/07/20 12/07/20 03:30 03:30 03:30 WBC 18.0 H RBC 3.80 L Hgb 12.0 Hct 38.2 MCV 100.5 H MCH 31.6 MCHC 31.4 L RDW Std Deviation 57.0 H RDW Coeff of [place]inoza 15.4 H Plt Count 242 MPV 10.1 Immature Gran % (Auto) 0.500 Neut % (Auto) 95.2 H Lymph % (Auto) 3.[address] [place] % (Auto) 0.8 Eos % (Auto) 0.1 Baso % (Auto) 0.1 Absolute Neuts (auto) 17.1 H Absolute Lymphs (auto) 0.59 L Nucleated RBC % 0 PT INR APTT D-Dimer Quant (PE/DVT) Sodium 141 Potassium 5.2 H Chloride 111 H Carbon Dioxide 25.0 Anion Gap 5 BUN 24 H Creatinine 1.16 H Estim Creat Clear Calc 39.23 Est GFR (MDRD) Af Amer 59 L Est GFR (MDRD) Non-Af 48 L BUN/Creatinine Ratio 20.7 H Glucose 146 H Hemoglobin A1c Lactic Acid Calcium 7.6 L Magnesium Ferritin Total Bilirubin 0.20 AST 39 H ALT 24 Alkaline Phosphatase 95 Lactate Dehydrogenase Total Creatine Kinase Troponin I 0.433 H C-React Prot Ext Range B-Natriuretic Peptide Total Protein 6.0 L Albumin 2.7 L Globulin 3.3 Albumin/Globulin Ratio 0.8 L Triglycerides 43 Cholesterol 144 LDL Cholesterol 81 VLDL Cholesterol 9 HDL Cholesterol 54 Procalcitonin TSH Free T4 Urine Color Urine Clarity Urine pH Ur Specific [place] Urine Protein Urine Glucose (UA) Urine Ketones Urine Occult Blood Urine Nitrite Urine Bilirubin Urine Urobilinogen Ur Leukocyte Esterase Urine RBC Urine WBC Ur Squamous Epith Cells Urine Bacteria Urine Mucus COVID-19 ([facility]) SARS Serology 12/07/20 12/07/20 12/07/20 03:30 06:00 11:50 WBC RBC Hgb Hct MCV MCH MCHC RDW Std Deviation RDW Coeff of Espinoza Plt Count MPV Immature Gran % (Auto) Neut % (Auto) Lymph % (Auto) [place] % (Auto) Eos % (Auto) Baso % (Auto) Absolute Neuts (auto) Absolute Lymphs (auto) Nucleated RBC % PT INR APTT > 250.0 H* D-Dimer Quant (PE/DVT) Sodium Potassium 4.6 Chloride Carbon Dioxide Anion Gap BUN Creatinine Estim Creat Clear Calc Est GFR (MDRD) Af Amer Est GFR (MDRD) Non-Af BUN/Creatinine Ratio Glucose Hemoglobin A1c Lactic Acid 2.4 H* Calcium Magnesium Ferritin Total Bilirubin AST ALT Alkaline Phosphatase Lactate Dehydrogenase Total Creatine Kinase Troponin I C-React Prot Ext Range B-Natriuretic Peptide Total Protein Albumin Globulin Albumin/Globulin Ratio Triglycerides Cholesterol LDL Cholesterol VLDL Cholesterol HDL Cholesterol Procalcitonin TSH Free T4 Urine Color Urine Clarity Urine pH Ur Specific [place] Urine Protein Urine Glucose (UA) Urine Ketones Urine Occult Blood Urine Nitrite Urine Bilirubin Urine Urobilinogen Ur Leukocyte Esterase Urine RBC Urine WBC Ur Squamous Epith Cells Urine Bacteria Urine Mucus COVID-19 ([facility]) SARS Serology 12/07/20 15:30 WBC RBC Hgb Hct MCV MCH MCHC RDW Std Deviation RDW Coeff of Espinoza Plt Count MPV Immature Gran % (Auto) Neut % (Auto) Lymph % (Auto) [place] % (Auto) Eos % (Auto) Baso % (Auto) Absolute Neuts (auto) Absolute Lymphs (auto) Nucleated RBC % PT INR APTT Pending D-Dimer Quant (PE/DVT) Sodium Potassium Chloride Carbon Dioxide Anion Gap BUN Creatinine Estim Creat Clear Calc Est GFR (MDRD) Af Amer Est GFR (MDRD) Non-Af BUN/Creatinine Ratio Glucose Hemoglobin A1c Lactic Acid Calcium Magnesium Ferritin Total Bilirubin AST ALT Alkaline Phosphatase Lactate Dehydrogenase Total Creatine Kinase Troponin I C-React Prot Ext Range B-Natriuretic Peptide Total Protein Albumin Globulin Albumin/Globulin Ratio Triglycerides Cholesterol LDL Cholesterol VLDL Cholesterol HDL Cholesterol Procalcitonin TSH Free T4 Urine Color Urine Clarity Urine pH Ur Specific [place] Urine Protein Urine Glucose (UA) Urine Ketones Urine Occult Blood Urine Nitrite Urine Bilirubin Urine Urobilinogen Ur Leukocyte Esterase Urine RBC Urine WBC Ur Squamous Epith Cells Urine Bacteria Urine Mucus COVID-19 ([facility]) SARS Serology - Other Studies Radiology: [] reviewed Other Studies: [] Route of nutrition/ use of supplements: [] Nutritional Intake: [] IV Site: [] Noel Catheter: [] - Physical Exam General: Alert, Oriented x3, Cooperative, No apparent distress HEENT: Atraumatic, PERRLA, EOMI Neck: Supple, No Nodes Lungs: Clear to auscultation, Normal air movement Cardiovascular: Regular rate, Regular Rhythm Abdomen: Soft, Non Tender, Non-Distended Extremities: No edema Skin: No rashes Musculoskeletal: No Tenderness to Palpation of Joints or Extremities Neurological: Cranial nerves II-XII grossly intact - Assessment/Plan Antibiotics: [] Assessment/Plan: [] Active and Suspected Problems Lactic acidosis (Acute) Acute respiratory failure with hypoxia (Acute) Acute kidney injury (Acute) diarrhea, TRUMAN, lactic acidosis - given rapid resolution of symptoms, neg covid pcr and Ag, no clear exposure history, low suspicion for covid. High d-dimer but no lymphopenia. May be explained by something like food poisoning but no one else at home was sick. Ok to stop iso, stop remdesivir and dex. Will follow as needed, thank you, d/w nursing and Dr. Miles.
[2020-12-07 16:01] LABS: Bedside Glucose 100 mg/dL (70-110)
[2020-12-07 21:53] LABS: Partial Thromboplast Time 51.9 Seconds (24.1-36.2)
[2020-12-07 22:20] LABS: Bedside Glucose 119 mg/dL (70-110)
[2020-12-07] MEDS: Atorvastatin Calcium 20 MG Tablet PO (22:29)
[2020-12-08] VITALS (9 sets, daily range): BP systolic 127–158; BP diastolic 66–88; PULSE 83–99; RESP 18; TEMP 36.7–36.8; O2SAT 94–95
[2020-12-08] MEDS: Acetaminophen 325 MG Tablet 650 MG PO (01:46)
[2020-12-08] MEDS: oxyCODONE 5 MG Tablet PO ×2 (01:47→10:11)
[2020-12-08 05:57] LABS: Absolute Lymphocyte Count 2.21 X10^3/uL (0.83-4.51); Absolute Neutrophil Count 8.7 X10^3/uL (2.0-7.7); Basophil# 0.02 X10^3/uL; Basophil% 0.2 % (0-1); Eosinophil# 0.69 X10^3/uL; Eosinophils% 5.7 % (0-5); Hematocrit 33.4 % (37-47); Lymphocyte # 2.21 X10^3/ul (4.0); Lymphocyte % 18.3 % (19-41); Mean Corp Hgb Conc 29.9 g/dL (32-36); Mean Corpuscular Hgb 31.7 pg (27.0-32.0); Mean Platelet Vol. 9.9 fl (6.2-12.0); Monocyte# 0.42 X10^3/uL; Monocyte% 3.5 % (0-10); NRBC Flagged by Analyzer 0 % (0-5); Neutrophil # 8.68 X10^3/uL (2.7-7.7); Platelet Count 156 K/mm3 (150-450); RBC Distribution Width CV 15.8 % (11.6-14.6); RBC Distribution Width SD 61.3 fl (35.1-43.9); Red Blood Count 3.15 M/mm3 (4.2-5.4); White Blood Count 12.1 K/mm3 (4.4-11.0)
[2020-12-08] MEDS: HEPARIN/D5w 25,000 UNITS 25,000 UNITS/250 ML IV.SOLN. 15 UNITS IV (06:06)
[2020-12-08 06:07] LABS: Partial Thromboplast Time 63.9 Seconds (24.1-36.2)
[2020-12-08] MEDS: Nystatin Powder 15gm Bottle 1 APPLIC TOPICAL ×2 (06:07→13:14)
[2020-12-08 06:28] LABS: Anion Gap 3 (5-15); BUN 16 mg/dL (7-18); BUN/Creat Ratio 21.5 RATIO (10-20); Calcium,Total 8.5 mg/dL (8.5-10.1); Chloride 113 mmol/L (98-107); Creatinine, Serum 0.74 mg/dL (0.55-1.02); EST Glomerular Filtration Rate 81 mL/min (>60); Est Glom Filt Rate - Afr Amer 98 mL/min (>60); Glucose 102 mg/dL (74-106); Sodium Level 139 mmol/L (136-145)
--- NOTE | 2020-12-08 06:50 | PN_ITS ---
Patient Problems: Active and Suspected Problems Lactic acidosis (Acute) Acute respiratory failure with hypoxia (Acute) Acute kidney injury (Acute) Subjective: The patient was seen and examined at the bedside this morning. Events from the last 24 hours have been reviewed. The patient is currently afebrile, hemodynamically stable and maintaining appropriate oxygen saturations on room air. The patient has done well clinically following transfer out of the intensive care unit yesterday. The patient is currently documented to be overall net +5.3 L for the hospital admission. Objective: The patient's most recent lab work, culture data and imaging studies have all been personally reviewed. Surface echocardiogram dated September 2020 revealed an ejection fraction of 65% and stage I diastolic dysfunction. Both rapid antigen and PCR coronavirus testing was negative on December 06. Strep and urine Legionella antigens were negative. Respiratory viral panel was negative. Blood and urine cultures are pending. - Physical Exam Vitals/I&O's: Vital Signs Temp Pulse Resp BP Pulse Ox 98.2 F 95 18 145/66 H 95 12/08/20 05:58 12/08/20 05:58 12/08/20 05:58 12/08/20 05:58 12/08/20 05:58 Oxygen Flow Rate (L/min) 2 Oxygen Delivery Method Room Air Weight: 286 lb 9.615 oz Body Mass Index (BMI) 46.0 Finger Stick Blood Glucose 152 Intake and Output for Last 24 Hours 12/06/20 12/07/20 12/08/20 23:59 23:59 23:59 Intake Total 3422.55 / 3542.55 2834.18 / 2834.18 244.75 / 244.75 Output Total 1200 / 1200 Balance 3422.55 / 3092.55 1634.18 / 1634.18 244.75 / 244.75 General: Alert, Cooperative, No apparent distress, - - Morbidly obese HEENT: Atraumatic, PERRLA, Normocephalic Oral: No Gingival or Mucosal Lesions/ Ulcerations Neck: Supple, No Nodes, Trachea Midline Lungs: No rhonchi, No wheeze, No rales, Diminished Cardiovascular: Regular rate, Regular Rhythm Abdomen: Bowel Sounds Present, Soft, Non Tender, Obese Extremities: No clubbing, No cyanosis, Edema Skin: No breakdown Musculoskeletal: No Tenderness to Palpation of Joints or Extremities Lymphatic: No Cervical, Supraclavicular, or Inguinal Adenopathy Neurological: Cranial nerves II-XII grossly intact, Neuro grossly intact Psych/Mental Status: Alert and oriented to time, place, person, mood and affect Labs (Last 48 Hours) 12/06/20 12/06/20 12/06/20 17:35 17:35 17:35 WBC 15.6 H RBC 4.13 L Hgb 12.8 Hct 42.2 MCV 102.2 H MCH 31.0 MCHC 30.3 L RDW Std Deviation 58.8 H RDW Coeff of Espinoza 15.6 H Plt Count 291 MPV 10.5 Immature Gran % (Auto) 0.300 Neut % (Auto) 73.8 H Lymph % (Auto) 23.3 [place] % (Auto) 1.7 Eos % (Auto) 0.8 Baso % (Auto) 0.1 Absolute Neuts (auto) 11.6 H Absolute Lymphs (auto) 3.65 Nucleated RBC % 0 PT 13.2 INR 1.1 APTT 26.9 D-Dimer Quant (PE/DVT) Sodium 139 Potassium 3.3 L Chloride 103 Carbon Dioxide 22.0 Anion Gap 14 BUN 23 H Creatinine 1.36 H Estim Creat Clear Calc 33.46 Est GFR (MDRD) Af Amer 49 L Est GFR (MDRD) Non-Af 40 L BUN/Creatinine Ratio 16.9 Glucose 267 H Hemoglobin A1c Lactic Acid Calcium 8.9 Magnesium Ferritin Total Bilirubin 0.30 AST 21 ALT 20 Alkaline Phosphatase 113 Lactate Dehydrogenase Total Creatine Kinase 77 Troponin I < 0.015 C-React Prot Ext Range B-Natriuretic Peptide Total Protein 6.2 L Albumin 3.0 L Globulin 3.2 Albumin/Globulin Ratio 0.9 Triglycerides Cholesterol LDL Cholesterol VLDL Cholesterol HDL Cholesterol Procalcitonin TSH Free T4 Urine Color Urine Clarity Urine pH Ur Specific [place] Urine Protein Urine Glucose (UA) Urine Ketones Urine Occult Blood Urine Nitrite Urine Bilirubin Urine Urobilinogen Ur Leukocyte Esterase Urine RBC Urine WBC Ur Squamous Epith Cells Urine Bacteria Urine Mucus COVID-19 ([facility]) SARS Serology POC Glucose 12/06/20 12/06/20 12/06/20 17:35 17:35 17:35 WBC RBC Hgb Hct MCV MCH MCHC RDW Std Deviation RDW Coeff of Espinoza Plt Count MPV Immature Gran % (Auto) Neut % (Auto) Lymph % (Auto) [place] % (Auto) Eos % (Auto) Baso % (Auto) Absolute Neuts (auto) Absolute Lymphs (auto) Nucleated RBC % PT INR APTT D-Dimer Quant (PE/DVT) 8.88 H* Sodium Potassium Chloride Carbon Dioxide Anion Gap BUN Creatinine Estim Creat Clear Calc Est GFR (MDRD) Af Amer Est GFR (MDRD) Non-Af BUN/Creatinine Ratio Glucose Hemoglobin A1c Lactic Acid 7.9 H* Calcium Magnesium Ferritin Total Bilirubin AST ALT Alkaline Phosphatase Lactate Dehydrogenase Total Creatine Kinase Troponin I C-React Prot Ext Range B-Natriuretic Peptide 4.6 Total Protein Albumin Globulin Albumin/Globulin Ratio Triglycerides Cholesterol LDL Cholesterol VLDL Cholesterol HDL Cholesterol Procalcitonin TSH Free T4 Urine Color Urine Clarity Urine pH Ur Specific [place] Urine Protein Urine Glucose (UA) Urine Ketones Urine Occult Blood Urine Nitrite Urine Bilirubin Urine Urobilinogen Ur Leukocyte Esterase Urine RBC Urine WBC Ur Squamous Epith Cells Urine Bacteria Urine Mucus COVID-19 ([facility]) SARS Serology POC Glucose 12/06/20 12/06/20 12/06/20 18:15 20:29 20:50 WBC RBC Hgb Hct MCV MCH MCHC RDW Std Deviation RDW Coeff of [place] Plt Count MPV Immature Gran % (Auto) Neut % (Auto) Lymph % (Auto) [place] % (Auto) Eos % (Auto) Baso % (Auto) Absolute Neuts (auto) Absolute Lymphs (auto) Nucleated RBC % PT INR APTT D-Dimer Quant (PE/DVT) Sodium Potassium Chloride Carbon Dioxide Anion Gap BUN Creatinine Estim Creat Clear Calc Est GFR (MDRD) Af Amer Est GFR (MDRD) Non-Af BUN/Creatinine Ratio Glucose Hemoglobin A1c Lactic Acid Calcium Magnesium Ferritin Total Bilirubin AST ALT Alkaline Phosphatase Lactate Dehydrogenase Total Creatine Kinase Troponin I 0.194 H C-React Prot Ext Range B-Natriuretic Peptide Total Protein Albumin Globulin Albumin/Globulin Ratio Triglycerides Cholesterol LDL Cholesterol VLDL Cholesterol HDL Cholesterol Procalcitonin TSH 4.19 H Free T4 Urine Color Yellow Urine Clarity Clear Urine pH 6.0 Ur Specific [place] 1.020 Urine Protein 30 H Urine Glucose (UA) Normal Urine Ketones Negative Urine Occult Blood Negative Urine Nitrite Negative Urine Bilirubin Negative Urine Urobilinogen Normal Ur Leukocyte Esterase 25 H Urine RBC 0 SEEN Urine WBC 0 SEEN Ur Squamous Epith Cells 0-5 SEEN Urine Bacteria 0 SEEN Urine Mucus 0 SEEN COVID-19 ([facility]) Not Detected SARS Serology POC Glucose 12/06/20 12/06/20 12/06/20 22:24 23:30 23:30 WBC RBC Hgb Hct MCV MCH MCHC RDW Std Deviation RDW Coeff of Espinoza Plt Count MPV Immature Gran % (Auto) Neut % (Auto) Lymph % (Auto) [place] % (Auto) Eos % (Auto) Baso % (Auto) Absolute Neuts (auto) Absolute Lymphs (auto) Nucleated RBC % PT INR APTT D-Dimer Quant (PE/DVT) Sodium Potassium Chloride Carbon Dioxide Anion Gap BUN Creatinine Estim Creat Clear Calc Est GFR (MDRD) Af Amer Est GFR (MDRD) Non-Af BUN/Creatinine Ratio Glucose Hemoglobin A1c Lactic Acid 4.3 H* Calcium Magnesium 1.7 Ferritin 62 Total Bilirubin AST ALT Alkaline Phosphatase Lactate Dehydrogenase 223 Total Creatine Kinase Troponin I C-React Prot Ext Range 16.00 H B-Natriuretic Peptide Total Protein Albumin Globulin Albumin/Globulin Ratio Triglycerides Cholesterol LDL Cholesterol VLDL Cholesterol HDL Cholesterol Procalcitonin 1.70 H TSH Free T4 0.94 Urine Color Urine Clarity Urine pH Ur Specific [place] Urine Protein Urine Glucose (UA) Urine Ketones Urine Occult Blood Urine Nitrite Urine Bilirubin Urine Urobilinogen Ur Leukocyte Esterase Urine RBC Urine WBC Ur Squamous Epith Cells Urine Bacteria Urine Mucus COVID-19 ([facility]) SARS Serology POC Glucose 12/06/20 12/06/20 12/07/20 23:30 23:30 03:30 WBC RBC Hgb Hct MCV MCH MCHC RDW Std Deviation RDW Coeff of Espinoza Plt Count MPV Immature Gran % (Auto) Neut % (Auto) Lymph % (Auto) [place] % (Auto) Eos % (Auto) Baso % (Auto) Absolute Neuts (auto) Absolute Lymphs (auto) Nucleated RBC % PT INR APTT D-Dimer Quant (PE/DVT) Sodium Potassium Chloride Carbon Dioxide Anion Gap BUN Creatinine Estim Creat Clear Calc Est GFR (MDRD) Af Amer Est GFR (MDRD) Non-Af BUN/Creatinine Ratio Glucose Hemoglobin A1c 5.6 Lactic Acid Calcium Magnesium Ferritin Total Bilirubin AST ALT Alkaline Phosphatase Lactate Dehydrogenase Total Creatine Kinase Troponin I 0.343 H C-React Prot Ext Range B-Natriuretic Peptide Total Protein Albumin Globulin Albumin/Globulin Ratio Triglycerides Cholesterol LDL Cholesterol VLDL Cholesterol HDL Cholesterol Procalcitonin TSH Free T4 Urine Color Urine Clarity Urine pH Ur Specific [place] Urine Protein Urine Glucose (UA) Urine Ketones Urine Occult Blood Urine Nitrite Urine Bilirubin Urine Urobilinogen Ur Leukocyte Esterase Urine RBC Urine WBC Ur Squamous Epith Cells Urine Bacteria Urine Mucus COVID-19 ([facility]) SARS Serology Nonreactive POC Glucose 12/07/20 12/07/20 12/07/20 03:30 03:30 03:30 WBC 18.0 H RBC 3.80 L Hgb 12.0 Hct 38.2 MCV 100.5 H MCH 31.6 MCHC 31.4 L RDW Std Deviation 57.0 H RDW Coeff of Espinoza 15.4 H Plt Count 242 MPV 10.1 Immature Gran % (Auto) 0.500 Neut % (Auto) 95.2 H Lymph % (Auto) 3.3 L [place] % (Auto) 0.8 Eos % (Auto) 0.1 Baso % (Auto) 0.1 Absolute Neuts (auto) 17.1 H Absolute Lymphs (auto) 0.59 L Nucleated RBC % 0 PT INR APTT D-Dimer Quant (PE/DVT) Sodium 141 Potassium 5.2 H Chloride 111 H Carbon Dioxide 25.0 Anion Gap 5 BUN 24 H Creatinine 1.16 H Estim Creat Clear Calc 39.23 Est GFR (MDRD) Af Amer 59 L Est GFR (MDRD) Non-Af 48 L BUN/Creatinine Ratio 20.7 H Glucose 146 H Hemoglobin A1c Lactic Acid Calcium 7.6 L Magnesium Ferritin Total Bilirubin 0.20 AST 39 H ALT 24 Alkaline Phosphatase 95 Lactate Dehydrogenase Total Creatine Kinase Troponin I 0.433 H C-React Prot Ext Range B-Natriuretic Peptide Total Protein 6.0 L Albumin 2.7 L Globulin 3.3 Albumin/Globulin Ratio 0.8 L Triglycerides 43 Cholesterol 144 LDL Cholesterol 81 VLDL Cholesterol 9 HDL Cholesterol 54 Procalcitonin TSH Free T4 Urine Color Urine Clarity Urine pH Ur Specific [place] Urine Protein Urine Glucose (UA) Urine Ketones Urine Occult Blood Urine Nitrite Urine Bilirubin Urine Urobilinogen Ur Leukocyte Esterase Urine RBC Urine WBC Ur Squamous Epith Cells Urine Bacteria Urine Mucus COVID-19 ([facility]) SARS Serology POC Glucose 12/07/20 12/07/20 12/07/20 03:30 06:00 08:35 WBC RBC Hgb Hct MCV MCH MCHC RDW Std Deviation RDW Coeff of Espino[place] Plt Count MPV Immature Gran % (Auto) Neut % (Auto) Lymph % (Auto) [place] % (Auto) Eos % (Auto) Baso % (Auto) Absolute Neuts (auto) Absolute Lymphs (auto) Nucleated RBC % PT INR APTT > 250.0 H* D-Dimer Quant (PE/DVT) Sodium Potassium Chloride Carbon Dioxide Anion Gap BUN Creatinine Estim Creat Clear Calc Est GFR (MDRD) Af Amer Est GFR (MDRD) Non-Af BUN/Creatinine Ratio Glucose Hemoglobin A1c Lactic Acid 2.4 H* Calcium Magnesium Ferritin Total Bilirubin AST ALT Alkaline Phosphatase Lactate Dehydrogenase Total Creatine Kinase Troponin I C-React Prot Ext Range B-Natriuretic Peptide Total Protein Albumin Globulin Albumin/Globulin Ratio Triglycerides Cholesterol LDL Cholesterol VLDL Cholesterol HDL Cholesterol Procalcitonin TSH Free T4 Urine Color Urine Clarity Urine pH Ur Specific [place] Urine Protein Urine Glucose (UA) Urine Ketones Urine Occult Blood Urine Nitrite Urine Bilirubin Urine Urobilinogen Ur Leukocyte Esterase Urine RBC Urine WBC Ur Squamous Epith Cells Urine Bacteria Urine Mucus COVID-19 ([facility]) SARS Serology POC Glucose 121 H 12/07/20 12/07/20 12/07/20 11:50 11:54 15:30 WBC RBC Hgb Hct MCV MCH MCHC RDW Std Deviation RDW Coeff of Espinoza Plt Count MPV Immature Gran % (Auto) Neut % (Auto) Lymph % (Auto) [place] % (Auto) Eos % (Auto) Baso % (Auto) Absolute Neuts (auto) Absolute Lymphs (auto) Nucleated RBC % PT INR APTT 72.9 H D-Dimer Quant (PE/DVT) Sodium Potassium 4.6 Chloride Carbon Dioxide Anion Gap BUN Creatinine Estim Creat Clear Calc Est GFR (MDRD) Af Amer Est GFR (MDRD) Non-Af BUN/Creatinine Ratio Glucose Hemoglobin A1c Lactic Acid Calcium Magnesium Ferritin Total Bilirubin AST ALT Alkaline Phosphatase Lactate Dehydrogenase Total Creatine Kinase Troponin I C-React Prot Ext Range B-Natriuretic Peptide Total Protein Albumin Globulin Albumin/Globulin Ratio Triglycerides Cholesterol LDL Cholesterol VLDL Cholesterol HDL Cholesterol Procalcitonin TSH Free T4 Urine Color Urine Clarity Urine pH Ur Specific [place] Urine Protein Urine Glucose (UA) Urine Ketones Urine Occult Blood Urine Nitrite Urine Bilirubin Urine Urobilinogen Ur Leukocyte Esterase Urine RBC Urine WBC Ur Squamous Epith Cells Urine Bacteria Urine Mucus COVID-19 ([facility]) SARS Serology POC Glucose 130 H 12/07/20 12/07/20 12/07/20 15:54 21:32 22:17 WBC RBC Hgb Hct MCV MCH MCHC RDW Std Deviation RDW Coeff of Espinoza Plt Count MPV Immature Gran % (Auto) Neut % (Auto) Lymph % (Auto) [place] % (Auto) Eos % (Auto) Baso % (Auto) Absolute Neuts (auto) Absolute Lymphs (auto) Nucleated RBC % PT INR APTT 51.9 H D-Dimer Quant (PE/DVT) Sodium Potassium Chloride Carbon Dioxide Anion Gap BUN Creatinine Estim Creat Clear Calc Est GFR (MDRD) Af Amer Est GFR (MDRD) Non-Af BUN/Creatinine Ratio Glucose Hemoglobin A1c Lactic Acid Calcium Magnesium Ferritin Total Bilirubin AST ALT Alkaline Phosphatase Lactate Dehydrogenase Total Creatine Kinase Troponin I C-React Prot Ext Range B-Natriuretic Peptide Total Protein Albumin Globulin Albumin/Globulin Ratio Triglycerides Cholesterol LDL Cholesterol VLDL Cholesterol HDL Cholesterol Procalcitonin TSH Free T4 Urine Color Urine Clarity Urine pH Ur Specific [place] Urine Protein Urine Glucose (UA) Urine Ketones Urine Occult Blood Urine Nitrite Urine Bilirubin Urine Urobilinogen Ur Leukocyte Esterase Urine RBC Urine WBC Ur Squamous Epith Cells Urine Bacteria Urine Mucus COVID-19 ([facility]) SARS Serology POC Glucose 100 119 H 12/08/20 12/08/20 12/08/20 05:50 05:50 05:50 WBC 12.1 H RBC 3.15 L Hgb 10.0 L Hct 33.4 L MCV 106.0 H D MCH 31.7 MCHC 29.9 L RDW Std Deviation 61.3 H RDW Coeff of Espinoza 15.8 H Plt Count 156 MPV 9.9 Immature Gran % (Auto) 0.300 Neut % (Auto) 72.0 H Lymph % (Auto) 18.3 L [place] % (Auto) 3.5 Eos % (Auto) 5.7 H Baso % (Auto) 0.2 Absolute Neuts (auto) 8.7 H Absolute Lymphs (auto) 2.21 Nucleated RBC % 0 PT INR APTT 63.9 H D-Dimer Quant (PE/DVT) Sodium 139 Potassium 4.0 Chloride 113 H Carbon Dioxide 23.0 Anion Gap 3 L BUN 16 Creatinine 0.74 Estim Creat Clear Calc 45.50 Est GFR (MDRD) Af Amer 98 Est GFR (MDRD) Non-Af 81 BUN/Creatinine Ratio 21.5 H Glucose 102 Hemoglobin A1c Lactic Acid Calcium 8.5 Magnesium Ferritin Total Bilirubin AST ALT Alkaline Phosphatase Lactate Dehydrogenase Total Creatine Kinase Troponin I C-React Prot Ext Range B-Natriuretic Peptide Total Protein Albumin Globulin Albumin/Globulin Ratio Triglycerides Cholesterol LDL Cholesterol VLDL Cholesterol HDL Cholesterol Procalcitonin TSH Free T4 Urine Color Urine Clarity Urine pH Ur Specific [place] Urine Protein Urine Glucose (UA) Urine Ketones Urine Occult Blood Urine Nitrite Urine Bilirubin Urine Urobilinogen Ur Leukocyte Esterase Urine RBC Urine WBC Ur Squamous Epith Cells Urine Bacteria Urine Mucus COVID-19 ([facility]) SARS Serology POC Glucose Microbiology 12/06/20 18:15 Urine, Catheterized Urine Culture - Preliminary Culture exhibits no growth. 12/06/20 18:15 Urine Catheter - Catheter Legionella Antigen - Final 12/06/20 18:15 Urine Catheter - Catheter Streptococcus pneumoniae Antigen (M - Final 12/06/20 20:50 Mucosa - Nasopharyngeal Respiratory Panel (PCR) - Final 12/06/20 18:00 Mucosa - Nose SARS-CoV-2 Antigen (Rapid) - Final Clinical Impression(s) from Imaging Studies Abdomen/Pelvis CT 12/06/20 17:33 IMPRESSION: No acute abdominal or pelvic pathology. Electronically Signed: Shmuel Orr MD at 19:49 EST Tel , Service support , Chest X-Ray 12/06/20 19:25 IMPRESSION: The patient is status post bilateral shoulder arthroplasty. Electronically Signed: Shmuel Orr MD at 19:49 EST Tel , Service support , Chest CTA 12/07/20 05:55 IMPRESSION: 1. No central or large peripheral pulmonary embolus. 2. Bibasilar subsegmental atelectasis and/or scarring. 3. Additional findings above. Individualized dose optimization techniques were used for this CT. at 0008 Reported and signed by: Mirtha Greer MD Electronically Signed: Mirtha Greer MD at 0:08 EST Tel , Service support , Current Medications Acetaminophen (Acetaminophen 325 Mg Tablet) 650 mg PO Q6H PRN PRN PRN Reason: Pain Score 1-10/Temp > 100.7 F Last Admin: 12/08/20 01:46 Dose: 650 mg Documented by: Al Hydroxide/Mg Hydroxide (Mag Hydrox/Al Hydrox/Simeth 30 Ml Udc) 30 ml PO Q6H PRN PRN PRN Reason: Gastric Burning Albuterol Sulfate (Albuterol Ih 8.5 Gm (Proair) Inhaler (200 Puffs)) 4 - 8 puff INHALATION Q4H PRN PRN PRN Reason: Dyspnea, wheezing Albuterol Sulfate (Albuterol Ih 8.5 Gm (Proair) Inhaler (200 Puffs)) 1 puff INHALATION Q6HWA.RT [facility] Aspirin (Aspirin E.C. 81 Mg Tablet) 81 mg PO DAILY [facility] Last Admin: 12/07/20 08:45 Dose: 81 mg Documented by: Atorvastatin Calcium (Atorvastatin Calcium 20 Mg Tablet) 20 mg PO QHS [facility] Last Admin: 12/07/20 22:29 Dose: 20 mg Documented by: Calamine/Phenol (Menthol/Lanolin/Calamine/Znox 113 Gm Tube) 1 applic TOPICAL 4X/DAY [facility]; Protocol Last Admin: 12/07/20 22:25 Dose: Not Given Documented by: Clonazepam (Clonazepam 1 Mg Tablet) 1 mg PO QHS [facility] Last Admin: 12/07/20 22:23 Dose: 1 mg Documented by: Famotidine (Famotidine 20 Mg Tablet) 20 mg PO BID [facility] Last Admin: 12/07/20 22:30 Dose: 20 mg Documented by: Folic Acid (Folic Acid 1 Mg Tablet) 1 mg PO DAILY [facility] Last Admin: 12/07/20 08:46 Dose: 1 mg Documented by: Guaifenesin (Guaifenesin 10 Ml Udc (200mg/10ml)) 10 ml PO Q4H PRN PRN PRN Reason: COUGH Heparin Sodium (Porcine) (Heparin Injection (Vial) 5,000 Unit/Ml Vial) 0 unit IV UD PRN; Protocol PRN Reason: dose adjustment Hydralazine HCl (Hydralazine 20 Mg/Ml Vial) 10 mg IV Q4H PRN PRN PRN Reason: SBP > 160 Hydrochlorothiazide (Hydrochlorothiazide 25 Mg Tablet) 25 mg PO DAILY [facility] Last Admin: 12/07/20 08:45 Dose: 25 mg Documented by: Ceftriaxone Sodium 2 gm/ (Sodium Chloride) 50 mls @ 100 mls/hr IV Q24 [facility] Last Infusion: 12/07/20 12:35 Dose: Infused Documented by: Heparin Sodium/Dextrose () 25,000 units in 250 mls @ 17 mls/hr IV .[id number] [facility]; Protocol Last Admin: 12/08/20 06:06 Dose: 1,500 units/hr, 15 mls/hr Documented by: Sodium Chloride () 250 mls @ 15 mls/hr IV .[id number] PRN PRN Reason: Saline Flush Sodium Chloride () 250 mls @ 15 mls/hr IV .[id number] PRN PRN Reason: Additional IVPB Infusion Insulin Human Lispro (Insulin Lispro 100 Unit/Ml Insuln.Pen) 0 unit SC ACHS [facility]; Protocol Last Admin: 12/07/20 22:25 Dose: Not Given Documented by: Levothyroxine Sodium (Levothyroxine 50 Mcg Tablet) 50 mcg PO DAILY [facility] Last Admin: 12/07/20 08:46 Dose: 50 mcg Documented by: Losartan Potassium (Losartan Potassium 50 Mg Tablet) 50 mg PO DAILY [facility] Last Admin: 12/07/20 08:45 Dose: 50 mg Documented by: Melatonin (Melatonin 3 Mg Tablet) 3 mg PO QHS PRN PRN PRN Reason: INSOMNIA Nitroglycerin (Nitroglycerin (Inpatient Use) 0.4 Mg Tab.Subl) 0.4 mg SUBLINGUAL Q5M PRN PRN Reason: CARDIAC/CHEST PAIN Nystatin (Nystatin Powder 15gm Bottle) 1 applic TOPICAL TID [facility]; Protocol Last Admin: 12/08/20 06:07 Dose: 1 applicatio Documented by: Ondansetron HCl (Ondansetron 4 Mg/2 Ml Vial) 4 mg IV Q8H PRN PRN PRN Reason: NAUSEA/VOMITING Oxycodone HCl (Oxycodone 5 Mg Tablet) 5 mg PO Q8H PRN PRN PRN Reason: Pain Score 6-10 Last Admin: 12/08/20 01:47 Dose: 5 mg Documented by: Prochlorperazine Edisylate (Prochlorperazine 10 Mg/2 Ml Vial) 5 mg IV Q4H PRN PRN PRN Reason: Breakthrough Nausea/Vomiting Sodium Chloride (0.9% Saline Lock 10 Ml Syringe) 10 - 40 ml IV UD PRN PRN Reason: SALINE FLUSH Last Admin: 12/07/20 22:23 Dose: 20 ml Documented by: Sulfasalazine (Sulfasalazine 500 Mg Tablet) 1,000 mg PO BID [facility] Last Admin: 12/07/20 22:29 Dose: 1,000 mg Documented by: Throat Lozenges (Benzocaine/Menthol 1 Lozenge) 1 lozenge MUCOUS MEM Q2H PRN PRN PRN Reason: SORE THROAT Venlafaxine HCl (Venlafaxine Xr 150 Mg Capsule) 150 mg PO DAILY [facility] Last Admin: 12/07/20 08:45 Dose: 150 mg Documented by: Medical Necessity - Tobacco Use Smoking Status: Former smoker - Patient quit cigarette tobacco usage approximately 30 years prior to current presentation with prior to this 1 pack/day since she had been 18 years old. Tobacco Use: Non-smoker Assessment/Plan All Active Problems Vision disturbance (Acute) Lactic acidosis (Acute) Acute respiratory failure with hypoxia (Acute) Acute kidney injury (Acute) RECOMMENDATIONS: 1. Okay to discontinue heparin infusion. 2. Antibiotic management per ID recommendations. 3. Encourage incentive spirometer use while in bed. Mobilize patient as tolerated. 4. Continue bronchodilators. 5. Outpatient cardiac stress test. IMPRESSIONS: 1. Acute hypoxemic respiratory failure The patient initially presented to the hospital primarily with GI related complaints and was noted to be hypoxemic. She did have an elevated D-dimer. Initial chest imaging including CT abdomen which revealed the bases of the lungs revealed atelectasis. The patient's oxygen requirement was able to be weaned quickly over the first 12 hours of her hospitalization. Subsequent work-up for coronavirus was negative. CTA chest showed no evidence for pulmonary embolism. It is unclear with the patient's GI symptoms, if she may have aspirated. She is currently maintaining appropriate oxygen saturations on room air. Recommend aggressive incentive spirometer use while in bed. Systemic anticoagulation can be discontinued. 2. Septic shock Resolved. The patient did meet septic shock criteria due to an elevated lactate level. I do suspect that her elevated lactate was likely secondary to hypoxia. Antibiotics can likely be discontinued. However, I will defer this decision to infectious diseases. 3. Acute kidney injury Resolved. Likely prerenal in etiology. Anticipate further improvement with volume expansion. Continue to monitor urine output. No current indication for renal replacement therapy. 4. Morbid obesity/hypertension/rheumatoid arthritis/hyperlipidemia/anxiety/hypothyroidism Complicates care, management, recovery and prognosis. Continue home medications as indicated. This note was generated with [employer] dictation software. It may contain incorrect words, spelling, and punctuation that were not noted in checking the note before signing. Inpatient E&M: 06809 Subs Hosp L2
[2020-12-08 07:05] LABS: Bedside Glucose 101 mg/dL (70-110)
[2020-12-08] MEDS: Levothyroxine 50 MCG Tablet PO (10:05)
[2020-12-08] MEDS: Folic Acid 1 MG Tablet PO (10:05)
[2020-12-08] MEDS: Losartan Potassium 50 MG Tablet PO (10:05)
[2020-12-08] MEDS: Famotidine 20 MG Tablet PO (10:05)
[2020-12-08] MEDS: Venlafaxine XR 150 MG Capsule PO (10:05)
[2020-12-08] MEDS: Aspirin E.C. 81 MG Tablet PO (10:05)
[2020-12-08] MEDS: hydroCHLOROthiazide 25 MG Tablet PO (10:05)
[2020-12-08] MEDS: sulfaSALAzine 500 MG Tablet 1000 MG PO (10:06)
[2020-12-08] MEDS: Menthol/Lanolin/Calamine/Znox 113 GM Tube 1 APPLIC TOPICAL ×2 (10:07→13:13)
[2020-12-08 11:55] LABS: Bedside Glucose 139 mg/dL (70-110)
[2020-12-08 12:45] LABS: Partial Thromboplast Time 98.7 Seconds (24.1-36.2)
--- NOTE | 2020-12-08 15:03 | CON.PCM_ITS ---
Reason for Consult Date of Consultation: 12/08/20 Reason for Consultation: Elevated troponin History of Present Illness: The patient is a 75 year old F [presenting with diarrhea and shortness of breath. Shortness of breath is resolved. Patient was acidotic, hypoxic on presentation. Her troponin went up in the intermediate range. She denies any chest pain. Cardiology consult was requested for the elevated troponin.] Past Medical History Allergies/Adverse Reactions: Allergies adhesive Allergy (Verified 12/06/20 17:24) Other amoxicillin trihydrate [From Augmentin] Allergy (Verified 12/06/20 17:24) Unknown latex Allergy (Verified 12/06/20 17:24) Unknown Penicillins Allergy (Verified 12/06/20 17:24) Unknown potassium clavulanate [From Augmentin] Allergy (Verified 12/06/20 17:24) Unknown tetracycline Allergy (Verified 12/06/20 17:24) Unknown Home Medications: Ambulatory Orders Medication Instructions Recorded Albuterol IH (ProAir) [Proair Hfa] 1 - 2 puff INHALATION Q6H PRN PRN 03/15/15 Hydrochlorothiazide [Hctz] 25 mg PO DAILY 03/15/15 Methotrexate 20 mg PO MO 03/15/15 Folic Acid 1 mg PO DAILY@0800 #0 tablet 03/29/15 Losartan Potassium [Cozaar] 50 mg PO DAILY #30 tablet 03/29/15 Oxycodone HCl/Acetaminophen 1 tablet PO TID 11/17/17 [Percocet 5-325] Prednisone 10 mg PO PRN PRN 07/07/19 Sulfasalazine 1,000 mg PO BID 07/07/19 Venlafaxine HCl [Venlafaxine HCl 150 mg PO DAILY 07/07/19 ER] Vit A/Vit C/Vit E/Zinc/Copper 1 tab PO DAILY 07/07/19 [Preservision Areds Tablet] Atorvastatin Calcium [Lipitor] 20 mg PO DAILY 09/19/20 Clonazepam [Klonopin] 1 mg PO QHS 09/19/20 Levothyroxine Sodium [Synthroid] 50 mcg PO DAILY 09/19/20 Magnesium Oxide [Magnesium] 400 mg PO DAILY 09/19/20 Aspirin E.C. 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 Lives: With Family - Patient notes that her grandson and 2 daughters live with her. Smoking Status: Former smoker - Patient quit cigarette tobacco usage approximately 30 years prior to current presentation with prior to this 1 pack/day since she had been 18 years old. Tobacco Use: Non-smoker Alcohol: Sober - Patient currently sober x30 years. Drugs: None Objective: Vital Signs Temp Pulse Resp BP Pulse Ox 98.3 F 89 18 149/76 H 94 12/08/20 13:15 12/08/20 13:15 12/08/20 13:15 12/08/20 13:15 12/08/20 13:15 Oxygen Flow Rate (L/min) 2 Oxygen Delivery Method Room Air Weight: 286 lb 9.615 oz Body Mass Index (BMI) 46.0 Finger Stick Blood Glucose 152 Intake and Output for Last 24 Hours 12/06/20 12/07/20 12/08/20 23:59 23:59 23:59 Intake Total 3422.55 / 3542.55 2834.18 / 2834.18 747.00 / 747.00 Output Total 1200 / 1200 Balance 3422.55 / 3092.55 1634.18 / 1634.18 747.00 / 747.00 General: Awake, Alert, Oriented x 3 HEENT: Atraumatic Neck: Supple Psych/Mental Status: Appropriate 12/07/20 15:30: APTT 72.9 H 12/07/20 21:32: APTT 51.9 H 12/08/20 05:50: WBC 12.1 H, RBC 3.15 L, Hgb 10.0 L, Hct 33.4 L, MCV 106.0 H D, MCH 31.7, MCHC 29.9 L, Plt Count 156, MPV 9.9, Immature Gran % (Auto) 0.300, Neut % (Auto) 72.0 H, Lymph % (Auto) 18.3 L, [place] % (Auto) 3.5, Eos % (Auto) 5.7 H, Baso % (Auto) 0.2, Absolute Neuts (auto) 8.7 H, Nucleated RBC % 0 12/08/20 05:50: Sodium 139, Potassium 4.0, Chloride 113 H, Carbon Dioxide 23.0, Anion Gap 3 L, BUN 16, Creatinine 0.74, Est GFR (MDRD) Af Amer 98, Est GFR (MDRD) Non-Af 81, BUN/Creatinine Ratio 21.5 H, Glucose 102, Calcium 8.5 12/08/20 05:50: APTT 63.9 H 12/08/20 12:08: APTT 98.7 H* Rhythm: EKG: ECHO: Stress Test: Cardiac Cath: PCI: CT Surgery: Holter monitor: EPS: PPM: CXR: Chest CT Scan: Assessment/Plan 1. Elevated troponin: Appears to be secondary to patient's primary presentation with diarrhea, dehydration, lactic acidosis and hypoxia. She is asymptomatic from a cardiac standpoint at this time. She had an echocardiogram 2 months ago which showed preserved EF. I think will be reasonable to get a stress test as an outpatient. Please let us know if we can be of any further assistance.
--- NOTE | 2020-12-08 15:41 | DCINST_ITS ---
- Discharge Diagnoses Current Active Problems: Current Active and Chronic Problems Lactic acidosis (Acute) Acute respiratory failure with hypoxia (Acute) Acute kidney injury (Acute) Allergies/Adverse Reactions: Allergies adhesive Allergy (Verified 12/06/20 17:24) Other amoxicillin trihydrate [From Augmentin] Allergy (Verified 12/06/20 17:24) Unknown latex Allergy (Verified 12/06/20 17:24) Unknown Penicillins Allergy (Verified 12/06/20 17:24) Unknown potassium clavulanate [From Augmentin] Allergy (Verified 12/06/20 17:24) Unknown tetracycline Allergy (Verified 12/06/20 17:24) Unknown Medications to take at Discharge Albuterol IH (ProAir) [Proair Hfa] 1 - 2 puff INHALATION Q6H PRN PRN 03/15/15 Hydrochlorothiazide [Hctz] 25 mg PO DAILY 03/15/15 Methotrexate 20 mg PO MO 03/15/15 Folic Acid 1 mg PO DAILY@0800 #0 tablet 03/29/15 Losartan Potassium [Cozaar] 50 mg PO DAILY #30 tablet 03/29/15 Oxycodone HCl/Acetaminophen [Percocet 5-325] 1 tablet PO TID 11/17/17 Prednisone 10 mg PO PRN PRN 07/07/19 Sulfasalazine 1,000 mg PO BID 07/07/19 Venlafaxine HCl [Venlafaxine HCl ER] 150 mg PO DAILY 07/07/19 Vit A/Vit C/Vit E/Zinc/Copper [Preservision Areds Tablet] 1 tab PO DAILY 07/07/19 Atorvastatin Calcium [Lipitor] 20 mg PO DAILY 09/19/20 Clonazepam [Klonopin] 1 mg PO QHS 09/19/20 Levothyroxine Sodium [Synthroid] 50 mcg PO DAILY 09/19/20 Magnesium Oxide [Magnesium] 400 mg PO DAILY 09/19/20 Aspirin E.C. [Ecotrin] 81 mg PO DAILY@0800 #30 tab 09/20/20 Primary Care Physician: Marciano Anaya DO [Primary Care Provider] - Test Results: Test results from this visit will be discussed in further detail at your follow- up appointment, if applicable.
--- NOTE | 2020-12-08 15:41 | DCINST_ITS ---
- Discharge Diagnoses Current Active Problems: Current Active and Chronic Problems Lactic acidosis (Acute) Acute respiratory failure with hypoxia (Acute) Acute kidney injury (Acute) You will use the following diet at home:: Cardiac Your food should be the consistency of: Regular Your liquids should be the consistency of: Regular/Thin Discharge Activity: Return to Normal Activity Weight Bearing Status: Weight bearing as tolerated Call your doctor if you observe: Shortness of breath, Dizziness, Swelling in the ankles Instructions: Inside the ICU (Intensive Care Unit) Additional Instructions: to have stress test ordered on outpatient basis by PCP Allergies/Adverse Reactions: Allergies adhesive Allergy (Verified 12/06/20 17:24) Other amoxicillin trihydrate [From Augmentin] Allergy (Verified 12/06/20 17:24) Unknown latex Allergy (Verified 12/06/20 17:24) Unknown Penicillins Allergy (Verified 12/06/20 17:24) Unknown potassium clavulanate [From Augmentin] Allergy (Verified 12/06/20 17:24) Unknown tetracycline Allergy (Verified 12/06/20 17:24) Unknown Medications to take at Discharge Albuterol IH (ProAir) [Proair Hfa] 1 - 2 puff INHALATION Q6H PRN PRN 03/15/15 Hydrochlorothiazide [Hctz] 25 mg PO DAILY 03/15/15 Methotrexate 20 mg PO MO 03/15/15 Folic Acid 1 mg PO DAILY@0800 #0 tablet 03/29/15 Losartan Potassium [Cozaar] 50 mg PO DAILY #30 tablet 03/29/15 Oxycodone HCl/Acetaminophen [Percocet 5-325] 1 tablet PO TID 11/17/17 Prednisone 10 mg PO PRN PRN 07/07/19 Sulfasalazine 1,000 mg PO BID 07/07/19 Venlafaxine HCl [Venlafaxine HCl ER] 150 mg PO DAILY 07/07/19 Vit A/Vit C/Vit E/Zinc/Copper [Preservision Areds Tablet] 1 tab PO DAILY 07/07/19 Atorvastatin Calcium [Lipitor] 20 mg PO DAILY 09/19/20 Clonazepam [Klonopin] 1 mg PO QHS 09/19/20 Levothyroxine Sodium [Synthroid] 50 mcg PO DAILY 09/19/20 Magnesium Oxide [Magnesium] 400 mg PO DAILY 09/19/20 Aspirin E.C. [Ecotrin] 81 mg PO DAILY@0800 #30 tab 09/20/20 Primary Care Physician: Marciano Anaya DO [Primary Care Provider] - Please follow up with your Primary Care Physician in: 1-2 weeks Test Results: Test results from this visit will be discussed in further detail at your follow- up appointment, if applicable. Please Follow Up With: Raymundo Sanchez MD When: 2-4 weeks Proposed Discharge Date: 12/08/20
--- NOTE | 2020-12-08 15:47 | PCM.DC.SUM ---
Discharge Date and Diagnosis - Problem List Patient Problems: Active and Suspected Problems Lactic acidosis (Acute) Acute respiratory failure with hypoxia (Acute) Acute kidney injury (Acute) Date of Admission: 12/06/20 Date of Discharge: 12/08/20 - Primary Discharge Diagnosis Acute Problems: Active Problems Lactic acidosis (Acute) Acute respiratory failure with hypoxia (Acute) Acute kidney injury (Acute) indeterminate troponins - Secondary Discharge Diagnosis Chronic Problems: Chronic Problems Morbid obesity (Chronic) HLD (hyperlipidemia) (Chronic) Asthma (Chronic) Anxiety and depression (Chronic) Chronic pain syndrome (Chronic) Morbid obesity with BMI of 40.0-44.9, adult (Chronic) Hypertension (Chronic) 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 She had an associated mild productive cough. She denied any loss of taste or smell. On admission she was afebrile hemodynamically stable. She was noted to be saturating at 80% on room air and labs done showed elevated white cell count of 15,000. D-dimer was markedly elevated at 8.8 and chemistry showed potassium of 3.3 and creatinine of 1.36 with lactic acid elevated at 7.9. Liver function was within normal limits and procalcitonin was also mildly elevated at 1.7. She was initially thought to have Covid and therefore thought to have acute hypoxic respiratory failure due to COVID-19 infection and probable PE. Chest x-ray showed bibasilar atelectasis but no focal infiltrate and CT of the abdomen and pelvis were unremarkable. She was admitted to the ICU and managed for acute hypoxic respiratory failure due to probable Covid infection as well as lactic acidosis. Rapid Covid antigen test done was negative and PCR Covid test done also came back negative. Precautions were therefore discontinued. Urine for strep and Legionella antigens were negative. Respiratory viral panel was also negative. She was started on broad-spectrum antibiotics on account of her markedly elevated lactic acid for which he meets the definition of septic shock due to her markedly elevated lactic acid. Critical care and ID were consulted. Patient's shortness of breath solved and she was weaned off of oxygen and transferred out of the ICU. Blood cultures were pending at time of review. White cell count also trended down. And lactic acid also trended down. Trended upwards to a peak of 0.433. He however had no chest pain and EKG showed no acute ST changes. Cardiology was therefore consulted and cardiology recommended follow-up on outpatient basis with a stress test. Patient remained stable and was discharged home on 12/08/2020. She is to follow-up with her primary care doctor and for stress test to be ordered on outpatient basis by her primary care doctor. She is to also follow-up with cardiology. Patient seen and examined prior to discharge. She had no complaints and felt well. Review of symptoms otherwise negative. Labs and vitals reviewed. Home medication reviewed and reconciled. O/E: [] Vital Signs Temp Pulse Resp BP Pulse Ox 98.3 F 83 18 149/76 H 94 12/08/20 13:15 12/08/20 15:00 12/08/20 13:15 12/08/20 13:15 12/08/20 13:15 General: Alert, Oriented x3, Cooperative, No apparent distress, - - morbidly obese HEENT: Atraumatic, PERRLA, EOMI, Normocephalic Oral: Dry Mucosa Neck: Supple, No JVD, Negative Carotid Bruits Lungs: Clear to auscultation, Normal air movement, No rhonchi, No wheeze, No rales Cardiovascular: Regular rate, Regular Rhythm, Normal S1, Normal S2, No murmurs Abdomen: Bowel Sounds Present, Soft, Non Tender, Non-Distended, No Hepato-splenomegaly Extremities: No clubbing, No cyanosis, No edema, Capillary Refill Less than 3 Seconds Skin: No rashes, No breakdown Musculoskeletal: No Tenderness to Palpation of Joints or Extremities Lymphatic: No Cervical, Supraclavicular, or Inguinal Adenopathy Neurological: Cranial nerves II-XII grossly intact, Neuro grossly intact, Motor Exam 5/5 strength throughout Psych/Mental Status: Normal Affect, Appropriate, Alert and oriented to time, place, person, mood and affect Plan is for discharge home today. Patient Problems: Active and Suspected Problems Lactic acidosis (Acute) Acute respiratory failure with hypoxia (Acute) Acute kidney injury (Acute) - Physical Exam Vitals/I&O's: Vital Signs Temp Pulse Resp BP Pulse Ox 98.3 F 83 18 149/76 H 94 12/08/20 13:15 12/08/20 15:00 12/08/20 13:15 12/08/20 13:15 12/08/20 13:15 Oxygen Flow Rate (L/min) 2 Oxygen Delivery Method Room Air Weight: 286 lb 9.615 oz Body Mass Index (BMI) 46.0 Finger Stick Blood Glucose 152 Intake and Output for Last 24 Hours 12/06/20 12/07/20 12/08/20 23:59 23:59 23:59 Intake Total 3422.55 / 3542.55 2834.18 / 2834.18 747.00 / 747.00 Output Total 1200 / 1200 Balance 3422.55 / 3092.55 1634.18 / 1634.18 747.00 / 747.00 Microbiology Past 72 Hours 12/06/20 18:15 Urine, Catheterized Urine Culture - Preliminary Culture exhibits no growth. 12/06/20 18:15 Urine Catheter - Catheter Legionella Antigen - Final 12/06/20 18:15 Urine Catheter - Catheter Streptococcus pneumoniae Antigen (M - Final 12/06/20 20:50 Mucosa - Nasopharyngeal Respiratory Panel (PCR) - Final 12/06/20 18:00 Mucosa - Nose SARS-CoV-2 Antigen (Rapid) - Final Laboratory Results 12/07/20 15:30: APTT 72.9 H 12/07/20 15:54: POC Glucose 100 12/07/20 21:32: APTT 51.9 H 12/07/20 22:17: POC Glucose 119 H 12/08/20 05:50: WBC 12.1 H, RBC 3.15 L, Hgb 10.0 L, Hct 33.4 L, MCV 106.0 H D, MCH 31.7, MCHC 29.9 L, RDW Std Deviation 61.3 H, RDW Coeff of [place]ino[place] 15.8 H, Plt Count 156, MPV 9.9, Immature Gran % (Auto) 0.300, Neut % (Auto) 72.0 H, Lymph % (Auto) 18.3 L, [place] % (Auto) 3.5, Eos % (Auto) 5.7 H, Baso % (Auto) 0.2, Absolute Neuts (auto) 8.7 H, Absolute Lymphs (auto) 2.21, Nucleated RBC % 0 12/08/20 05:50: Sodium 139, Potassium 4.0, Chloride 113 H, Carbon Dioxide 23.0, Anion Gap 3 L, BUN 16, Creatinine 0.74, Estim Creat Clear Calc 45.50, Est GFR (MDRD) Af Amer 98, Est GFR (MDRD) Non-Af 81, BUN/Creatinine Ratio 21.5 H, Glucose 102, Calcium 8.5 12/08/20 05:50: APTT 63.9 H 12/08/20 06:58: POC Glucose 101 12/08/20 11:45: POC Glucose 139 H 12/08/20 12:08: APTT 98.7 H* Current Medications Acetaminophen (Acetaminophen 325 Mg Tablet) 650 mg PO Q6H PRN PRN PRN Reason: Pain Score 1-10/Temp > 100.7 F Last Admin: 12/08/20 01:46 Dose: 650 mg Documented by: Al Hydroxide/Mg Hydroxide (Mag Hydrox/Al Hydrox/Simeth 30 Ml Udc) 30 ml PO Q6H PRN PRN PRN Reason: Gastric Burning Albuterol Sulfate (Albuterol Ih 8.5 Gm (Proair) Inhaler (200 Puffs)) 4 - 8 puff INHALATION Q4H PRN PRN PRN Reason: Dyspnea, wheezing Albuterol Sulfate (Albuterol Ih 8.5 Gm (Proair) Inhaler (200 Puffs)) 1 puff INHALATION Q6HWA.RT MARIE Aspirin (Aspirin E.C. 81 Mg Tablet) 81 mg PO DAILY [facility] Last Admin: 12/08/20 10:05 Dose: 81 mg Documented by: Atorvastatin Calcium (Atorvastatin Calcium 20 Mg Tablet) 20 mg PO QHS [facility] Last Admin: 12/07/20 22:29 Dose: 20 mg Documented by: Calamine/Phenol (Menthol/Lanolin/Calamine/Znox 113 Gm Tube) 1 applic TOPICAL 4X/DAY [facility]; Protocol Last Admin: 12/08/20 13:13 Dose: 1 applic Documented by: Clonazepam (Clonazepam 1 Mg Tablet) 1 mg PO QHS [facility] Last Admin: 12/07/20 22:23 Dose: 1 mg Documented by: Famotidine (Famotidine 20 Mg Tablet) 20 mg PO BID [facility] Last Admin: 12/08/20 10:05 Dose: 20 mg Documented by: Folic Acid (Folic Acid 1 Mg Tablet) 1 mg PO DAILY [facility] Last Admin: 12/08/20 10:05 Dose: 1 mg Documented by: Guaifenesin (Guaifenesin 10 Ml Udc (200mg/10ml)) 10 ml PO Q4H PRN PRN PRN Reason: COUGH Heparin Sodium (Porcine) (Heparin Injection (Vial) 5,000 Unit/Ml Vial) 0 unit IV UD PRN; Protocol PRN Reason: dose adjustment Hydralazine HCl (Hydralazine 20 Mg/Ml Vial) 10 mg IV Q4H PRN PRN PRN Reason: SBP > 160 Hydrochlorothiazide (Hydrochlorothiazide 25 Mg Tablet) 25 mg PO DAILY [facility] Last Admin: 12/08/20 10:05 Dose: 25 mg Documented by: Ceftriaxone Sodium 2 gm/ (Sodium Chloride) 50 mls @ 100 mls/hr IV Q24 [facility] Last Infusion: 12/08/20 11:15 Dose: Infused Documented by: Heparin Sodium/Dextrose () 25,000 units in 250 mls @ 17 mls/hr IV .[id number] [facility]; Protocol Last Titration: 12/08/20 13:59 Dose: 1,300 units/hr, 13 mls/hr Documented by: Sodium Chloride () 250 mls @ 15 mls/hr IV .[id number] PRN PRN Reason: Saline Flush Sodium Chloride () 250 mls @ 15 mls/hr IV .[id number] PRN PRN Reason: Additional IVPB Infusion Insulin Human Lispro (Insulin Lispro 100 Unit/Ml Insuln.Pen) 0 unit SC ACHS [facility]; Protocol Last Admin: 12/08/20 12:04 Dose: Not Given Documented by: Levothyroxine Sodium (Levothyroxine 50 Mcg Tablet) 50 mcg PO DAILY [facility] Last Admin: 12/08/20 10:05 Dose: 50 mcg Documented by: Losartan Potassium (Losartan Potassium 50 Mg Tablet) 50 mg PO DAILY [facility] Last Admin: 12/08/20 10:05 Dose: 50 mg Documented by: Melatonin (Melatonin 3 Mg Tablet) 3 mg PO QHS PRN PRN PRN Reason: INSOMNIA Nitroglycerin (Nitroglycerin (Inpatient Use) 0.4 Mg Tab.Subl) 0.4 mg SUBLINGUAL Q5M PRN PRN Reason: CARDIAC/CHEST PAIN Nystatin (Nystatin Powder 15gm Bottle) 1 applic TOPICAL TID [facility]; Protocol Last Admin: 12/08/20 13:14 Dose: 1 applicatio Documented by: Ondansetron HCl (Ondansetron 4 Mg/2 Ml Vial) 4 mg IV Q8H PRN PRN PRN Reason: NAUSEA/VOMITING Oxycodone HCl (Oxycodone 5 Mg Tablet) 5 mg PO Q8H PRN PRN PRN Reason: Pain Score 6-10 Last Admin: 12/08/20 10:11 Dose: 5 mg Documented by: Prochlorperazine Edisylate (Prochlorperazine 10 Mg/2 Ml Vial) 5 mg IV Q4H PRN PRN PRN Reason: Breakthrough Nausea/Vomiting Sodium Chloride (0.9% Saline Lock 10 Ml Syringe) 10 - 40 ml IV UD PRN PRN Reason: SALINE FLUSH Last Admin: 12/07/20 22:23 Dose: 20 ml Documented by: Sulfasalazine (Sulfasalazine 500 Mg Tablet) 1,000 mg PO BID [facility] Last Admin: 12/08/20 10:06 Dose: 1,000 mg Documented by: Throat Lozenges (Benzocaine/Menthol 1 Lozenge) 1 lozenge MUCOUS MEM Q2H PRN PRN PRN Reason: SORE THROAT Venlafaxine HCl (Venlafaxine Xr 150 Mg Capsule) 150 mg PO DAILY [facility] Last Admin: 12/08/20 10:05 Dose: 150 mg Documented by: Discharge Diet: Low fat/ Low Cholesterol Discharge Activity: Return to Normal Activity Weight Bearing Status: Weight bearing as tolerated Call your doctor if you observe: Shortness of breath, Dizziness, Swelling in the ankles Home Medications: Medications to take at Discharge Albuterol IH (ProAir) [Proair Hfa] 1 - 2 puff INHALATION Q6H PRN PRN 03/15/15 Hydrochlorothiazide [Hctz] 25 mg PO DAILY 03/15/15 Methotrexate 20 mg PO MO 03/15/15 Folic Acid 1 mg PO DAILY@0800 #0 tablet 03/29/15 Losartan Potassium [Cozaar] 50 mg PO DAILY #30 tablet 03/29/15 Oxycodone HCl/Acetaminophen [Percocet 5-325] 1 tablet PO TID 11/17/17 Prednisone 10 mg PO PRN PRN 07/07/19 Sulfasalazine 1,000 mg PO BID 07/07/19 Venlafaxine HCl [Venlafaxine HCl ER] 150 mg PO DAILY 07/07/19 Vit A/Vit C/Vit E/Zinc/Copper [Preservision Areds Tablet] 1 tab PO DAILY 07/07/19 Atorvastatin Calcium [Lipitor] 20 mg PO DAILY 09/19/20 Clonazepam [Klonopin] 1 mg PO QHS 09/19/20 Levothyroxine Sodium [Synthroid] 50 mcg PO DAILY 09/19/20 Magnesium Oxide [Magnesium] 400 mg PO DAILY 09/19/20 Aspirin E.C. [Ecotrin] 81 mg PO DAILY@0800 #30 tab 09/20/20 Primary Care Physician: Marciano Anaya DO [Primary Care Provider] - Please follow up with your Primary Care Physician in: 1-2 weeks Please Follow Up With: Raymundo Sanchez MD When: 2-4 weeks Patient Instructions: Inside the ICU (Intensive Care Unit) Disposition: Home Minutes spent on discharge:: 45 Patient Condition:: Stable Medical Necessity - Tobacco Use Smoking Status: Former smoker - Patient quit cigarette tobacco usage approximately 30 years prior to current presentation with prior to this 1 pack/day since she had been 18 years old. Tobacco Use: Non-smoker Meaningful Use Info Meaningful Use Diagnoses (Choose all that apply): None applicable Inpatient E&M: 10[address] [facility]
--- NOTE | 2020-12-08 16:26 | PN.ID_ITS ---
Patient Problems: Active and Suspected Problems Lactic acidosis (Acute) Acute respiratory failure with hypoxia (Acute) Acute kidney injury (Acute) Subjective: Feeling fine, no fever, no abd pain, no cough, no diarrhea. - Physical Exam Vitals/I&O's: Vital Signs Temp Pulse Resp BP Pulse Ox 98.3 F 83 18 149/76 H 94 12/08/20 13:15 12/08/20 15:00 12/08/20 13:15 12/08/20 13:15 12/08/20 13:15 Oxygen Flow Rate (L/min) 2 Oxygen Delivery Method Room Air Weight: 130 kg Body Mass Index (BMI) 46.0 Finger Stick Blood Glucose 152 Intake and Output for Last 24 Hours 12/06/20 12/07/20 12/08/20 23:59 23:59 23:59 Intake Total 3422.55 / 3542.55 2834.18 / 2834.18 775.38 / 775.38 Output Total 1200 / 1200 Balance 3422.55 / 3092.55 1634.18 / 1634.18 775.38 / 775.38 General: Alert, Cooperative, No apparent distress Lungs: Clear to auscultation, Normal air movement Cardiovascular: Regular rate, Regular Rhythm Abdomen: Soft, Non Tender, Non-Distended Skin: No rashes Microbiology Past 72 Hours 12/06/20 18:15 Urine, Catheterized Urine Culture - Preliminary Culture exhibits no growth. 12/06/20 18:15 Urine Catheter - Catheter Legionella Antigen - Final 12/06/20 18:15 Urine Catheter - Catheter Streptococcus pneumoniae Antigen (M - Final 12/06/20 20:50 Mucosa - Nasopharyngeal Respiratory Panel (PCR) - Final 12/06/20 18:00 Mucosa - Nose SARS-CoV-2 Antigen (Rapid) - Final Laboratory Results 12/07/20 21:32: APTT 51.9 H 12/07/20 22:17: POC Glucose 119 H 12/08/20 05:50: WBC 12.1 H, RBC 3.15 L, Hgb 10.0 L, Hct 33.4 L, MCV 106.0 H D, MCH 31.7, MCHC 29.9 L, RDW Std Deviation 61.3 H, RDW Coeff of Espinoza 15.8 H, Plt Count 156, MPV 9.9, Immature Gran % (Auto) 0.300, Neut % (Auto) 72.0 H, Lymph % (Auto) 18.3 L, Marshall % (Auto) 3.5, Eos % (Auto) 5.7 H, Baso % (Auto) 0.2, Absolute Neuts (auto) 8.7 H, Absolute Lymphs (auto) 2.21, Nucleated RBC % 0 12/08/20 05:50: Sodium 139, Potassium 4.0, Chloride 113 H, Carbon Dioxide 23.0, Anion Gap 3 L, BUN 16, Creatinine 0.74, Estim Creat Clear Calc 45.50, Est GFR (MDRD) Af Amer 98, Est GFR (MDRD) Non-Af 81, BUN/Creatinine Ratio 21.5 H, Glucose 102, Calcium 8.5 12/08/20 05:50: APTT 63.9 H 12/08/20 06:58: POC Glucose 101 12/08/20 11:45: POC Glucose 139 H 12/08/20 12:08: APTT 98.7 H* Current Medications Acetaminophen (Acetaminophen 325 Mg Tablet) 650 mg PO Q6H PRN PRN PRN Reason: Pain Score 1-10/Temp > 100.7 F Last Admin: 12/08/20 01:46 Dose: 650 mg Documented by: Al Hydroxide/Mg Hydroxide (Mag Hydrox/Al Hydrox/Simeth 30 Ml Udc) 30 ml PO Q6H PRN PRN PRN Reason: Gastric Burning Albuterol Sulfate (Albuterol Ih 8.5 Gm (Proair) Inhaler (200 Puffs)) 4 - 8 puff INHALATION Q4H PRN PRN PRN Reason: Dyspnea, wheezing Albuterol Sulfate (Albuterol Ih 8.5 Gm (Proair) Inhaler (200 Puffs)) 1 puff INHALATION Q6HWA.RT MARIE Aspirin (Aspirin E.C. 81 Mg Tablet) 81 mg PO DAILY MARIE Last Admin: 12/08/20 10:05 Dose: 81 mg Documented by: Atorvastatin Calcium (Atorvastatin Calcium 20 Mg Tablet) 20 mg PO QHS MARIE Last Admin: 12/07/20 22:29 Dose: 20 mg Documented by: Calamine/Phenol (Menthol/Lanolin/Calamine/Znox 113 Gm Tube) 1 applic TOPICAL 4X/DAY MARIE; Protocol Last Admin: 12/08/20 13:13 Dose: 1 applic Documented by: Clonazepam (Clonazepam 1 Mg Tablet) 1 mg PO QHS [facility] Last Admin: 12/07/20 22:23 Dose: 1 mg Documented by: Famotidine (Famotidine 20 Mg Tablet) 20 mg PO BID [facility] Last Admin: 12/08/20 10:05 Dose: 20 mg Documented by: Folic Acid (Folic Acid 1 Mg Tablet) 1 mg PO DAILY [facility] Last Admin: 12/08/20 10:05 Dose: 1 mg Documented by: Guaifenesin (Guaifenesin 10 Ml Udc (200mg/10ml)) 10 ml PO Q4H PRN PRN PRN Reason: COUGH Heparin Sodium (Porcine) (Heparin Injection (Vial) 5,000 Unit/Ml Vial) 0 unit IV UD PRN; Protocol PRN Reason: dose adjustment Hydralazine HCl (Hydralazine 20 Mg/Ml Vial) 10 mg IV Q4H PRN PRN PRN Reason: SBP > 160 Hydrochlorothiazide (Hydrochlorothiazide 25 Mg Tablet) 25 mg PO DAILY [facility] Last Admin: 12/08/20 10:05 Dose: 25 mg Documented by: Ceftriaxone Sodium 2 gm/ (Sodium Chloride) 50 mls @ 100 mls/hr IV Q24 [facility] Last Infusion: 12/08/20 11:15 Dose: Infused Documented by: Heparin Sodium/Dextrose () 25,000 units in 250 mls @ 17 mls/hr IV .[id number] [facility]; Protocol Last Titration: 12/08/20 16:10 Dose: Infused Documented by: Sodium Chloride () 250 mls @ 15 mls/hr IV .[id number] PRN PRN Reason: Saline Flush Sodium Chloride () 250 mls @ 15 mls/hr IV .[id number] PRN PRN Reason: Additional IVPB Infusion Insulin Human Lispro (Insulin Lispro 100 Unit/Ml Insuln.Pen) 0 unit SC ACHS [facility]; Protocol Last Admin: 12/08/20 12:04 Dose: Not Given Documented by: Levothyroxine Sodium (Levothyroxine 50 Mcg Tablet) 50 mcg PO DAILY [facility] Last Admin: 12/08/20 10:05 Dose: 50 mcg Documented by: Losartan Potassium (Losartan Potassium 50 Mg Tablet) 50 mg PO DAILY [facility] Last Admin: 12/08/20 10:05 Dose: 50 mg Documented by: Melatonin (Melatonin 3 Mg Tablet) 3 mg PO QHS PRN PRN PRN Reason: INSOMNIA Nitroglycerin (Nitroglycerin (Inpatient Use) 0.4 Mg Tab.Subl) 0.4 mg SUBLINGUAL Q5M PRN PRN Reason: CARDIAC/CHEST PAIN Nystatin (Nystatin Powder 15gm Bottle) 1 applic TOPICAL TID [facility]; Protocol Last Admin: 12/08/20 13:14 Dose: 1 applicatio Documented by: Ondansetron HCl (Ondansetron 4 Mg/2 Ml Vial) 4 mg IV Q8H PRN PRN PRN Reason: NAUSEA/VOMITING Oxycodone HCl (Oxycodone 5 Mg Tablet) 5 mg PO Q8H PRN PRN PRN Reason: Pain Score 6-10 Last Admin: 12/08/20 10:11 Dose: 5 mg Documented by: Prochlorperazine Edisylate (Prochlorperazine 10 Mg/2 Ml Vial) 5 mg IV Q4H PRN PRN PRN Reason: Breakthrough Nausea/Vomiting Sodium Chloride (0.9% Saline Lock 10 Ml Syringe) 10 - 40 ml IV UD PRN PRN Reason: SALINE FLUSH Last Admin: 12/07/20 22:23 Dose: 20 ml Documented by: Sulfasalazine (Sulfasalazine 500 Mg Tablet) 1,000 mg PO BID [facility] Last Admin: 12/08/20 10:06 Dose: 1,000 mg Documented by: Throat Lozenges (Benzocaine/Menthol 1 Lozenge) 1 lozenge MUCOUS MEM Q2H PRN PRN PRN Reason: SORE THROAT Venlafaxine HCl (Venlafaxine Xr 150 Mg Capsule) 150 mg PO DAILY [facility] Last Admin: 12/08/20 10:05 Dose: 150 mg Documented by: Medical Necessity - Tobacco Use Smoking Status: Former smoker - Patient quit cigarette tobacco usage approximately 30 years prior to current presentation with prior to this 1 pack/day since she had been 18 years old. Tobacco Use: Non-smoker Route of nutrition/ use of supplements: [] Nutritional Intake: [] IV Site: [] Noel Catheter: [] - Assessment/Plan Antibiotics: [] Assessment/Plan: [] Active and Suspected Problems Lactic acidosis (Acute) Acute respiratory failure with hypoxia (Acute) Acute kidney injury (Acute) diarrhea, TRUMAN, lactic acidosis - given rapid resolution of symptoms, neg covid pcr and Ag, no clear exposure history, low suspicion for covid. High d-dimer but no lymphopenia. May be explained by something like food poisoning but no one else at home was sick. Will stop abx. Will sign off, d/w Dr. Laureano
--- NOTE | 2020-12-11 15:15 | CASEMGMT ---
RADHA LOVE Discharge F/U Phone Call LACE: 10 Strata: 3 Discharge date: 12/08/20 Call date: 12/11/20 Call time: [id number] Admission dx: Resp failure, susp COVID, cellulitis Pt states has been doing 'fine' since discharge. Pt states no questions regarding discharge instructions/medications at this time. Pt states has f/u with PCP on 12/12/20 and plans to keep. Pt states no suggestions for [facility] at this time and states 'I think you were all great.' Pt voices no further questions/concerns/needs at this time. [place] RADHA LOVE
== END 2020-12-08 16:57 | disposition home or self-care (01) | DRG 871 ==
LOC: ED 18:30 → ICU 22:16 → PCU 12-07 13:24
PROVIDERS: Internal Medicine Critical Care Medicine; Admitting Provider Family Medicine; Emergency Provider Emergency Medicine; PCP Family Medicine; Visit Provider Student in an Organized Health Care Education/Training Program
DX: A41.9 Sepsis, unspecified organism (principal); R65.21 Severe sepsis with septic shock; J96.01 Acute respiratory failure with hypoxia; N17.9 Acute kidney failure, unspecified; J98.11 Atelectasis; Z68.42 Body mass index [BMI] 45.0-49.9, adult; E03.9 Hypothyroidism, unspecified; E87.6 Hypokalemia; E86.0 Dehydration; E87.5 Hyperkalemia; E11.22 Type 2 diabetes mellitus with diabetic chronic kidney disease; E11.65 Type 2 diabetes mellitus with hyperglycemia; E66.01 Morbid (severe) obesity due to excess calories; E78.5 Hyperlipidemia, unspecified; F32.9 Major depressive disorder, single episode, unspecified; F41.9 Anxiety disorder, unspecified; G89.4 Chronic pain syndrome; I12.9 Hypertensive chronic kidney disease with stage 1 through stage 4 chronic kidney disease, or unspecified chronic kidney disease; J44.9 Chronic obstructive pulmonary disease, unspecified; N18.30 Chronic kidney disease, stage 3 unspecified; Z79.82 Long term (current) use of aspirin; Z79.899 Other long term (current) drug therapy; Z87.891 Personal history of nicotine dependence; M05.70 Rheumatoid arthritis with rheumatoid factor of unspecified site without organ or systems involvement; M18.12 Unilateral primary osteoarthritis of first carpometacarpal joint, left hand; M21.40 Flat foot [pes planus] (acquired), unspecified foot; H35.30 Unspecified macular degeneration; G47.00 Insomnia, unspecified; M51.37 Other intervertebral disc degeneration, lumbosacral region
CPT/HCPCS: 36415; 71045; 71275; 74177; 80048; 80053; 80061; 81001; 82550; 82728; 82962; 83036; 83605; 83615; 83735; 83880; 84132; 84145; 84439; 84443; 84484; 85025; 85379; 85610; 85730; 86140; 86769; 87040; 87086; 87426; 87449; 87633; 87635; 93005; 94660; 97116; 97162; 97166; 97530; 97802; 99251; 99285; J7030; J7040; J7050; Q9967; A4216; G0463; J0696; U0002

== ENCOUNTER → 2020-12-20 14:27 | Outpatient (CLI) | payer MEDICARE, SELFPAY ==
[2020-12-06 23:33] VITALS: BMI 46.0
--- NOTE | 2020-12-20 14:45 | US_ITS ---
STUDY: THYROID ULTRASOUND REASON FOR EXAM: Female, 75 years old. LEFT THYROID NODULE SEEN ON CT-12/07/20 TECHNIQUE: Ultrasound evaluation of the thyroid was performed with real-time and static dalal-scale imaging. COMPARISON: None. FINDINGS: RIGHT LOBE: The right lobe of the thyroid gland measures 3.9 x 1.6 x 1.9 cm. There is a homogeneous echotexture. There is a solid mostly hypoechoic well-defined ovoid nodule measuring 0.7 x 0.6 x 0.4 cm which is wider than tall. There is a 0.5 x 0.5 x 0.3 cm solid mixed nodule, ovoid well defined that is wider than tall. There is a 0.6 x 0.5 x 0.3 cm well-defined ovoid isoechoic nodule that is wider than tall. LEFT LOBE: The left lobe of the thyroid gland measures 4.9 x 1.7 x 1.5 cm. There is a homogeneous echotexture. There is a 0.4 x 0.3 x 0.3 cm solid mixed well-defined ovoid nodule that is wider than tall. There is a 1.0 x 0.8 x 0.7 cm mixed solid well-defined nodule that is wider than tall. There is a poorly visualized nodule of the inferior left thyroid secondary its inferior position under the manubrium that appears solid and measures 2.3 x 2.0 x 1.3 cm. ISTHMUS: The isthmus measures 5 millimeter. US/Thyroid IMPRESSION: Multinodular thyroid with multiple bilateral nodules as described above. Most of the nodules are solid and well-defined, ovoid and wider than tall, mostly TR 4 nodules. The largest nodule protrudes from the lower pole of the thyroid and is retromanubrial and is not well seen but does appear to be solid and similar to the other nodules. Yearly follow-up recommended. Electronically Signed: Juana Jean MD at 22:01 EST , Service support ,
== END ==
PROVIDERS: PCP Family Medicine; Referring Provider Family Medicine; Visit Provider Family Medicine
DX: E04.1 Nontoxic single thyroid nodule (principal)
CPT/HCPCS: 76536

== ENCOUNTER 2021-02-09 15:28 | Outpatient (RCR) | payer MEDICARE, SELFPAY ==
[2020-12-06 23:33] VITALS: BMI 46.0
[2021-02-09 15:47] LABS: Absolute Neutrophil Count 4.3 X10^3/uL (2.0-7.7); Basophil# 0.09 X10^3/uL; Basophil% 1.1 % (0-1); Eosinophil# 0.42 X10^3/uL; Eosinophils% 5.3 % (0-5); Hematocrit 40.4 % (37-47); Hemoglobin 12.3 g/dL (12.0-15.0); Lymphocyte % 31.4 % (19-41); Mean Corp Hgb Conc 30.4 g/dL (32-36); Mean Corpuscular Hgb 30.9 pg (27.0-32.0); Mean Corpuscular Volume 101.5 fL (81-99); Mean Platelet Vol. 9.5 fl (6.2-12.0); Monocyte# 0.61 X10^3/uL; Monocyte% 7.7 % (0-10); NRBC Flagged by Analyzer 0 % (0-5); Neutrophil # 4.27 X10^3/uL (2.7-7.7); Neutrophil % 53.7 % (47-70); Platelet Count 268 K/mm3 (150-450); RBC Distribution Width CV 14.5 % (11.6-14.6); RBC Distribution Width SD 54.1 fl (35.1-43.9); Red Blood Count 3.98 M/mm3 (4.2-5.4)
[2021-02-09 16:10] LABS: ALB/GLOB Ratio 0.9 RATIO (0.9-2.4); AST(SGOT) 15 U/L (15-37); Alanine Aminotransfer ALT/SGPT 20 U/L (13-56); Albumin, Serum 3.6 g/dL (3.2-5.0); Alkaline Phosphatase 124 U/L (45-117); Anion Gap 2 (5-15); BUN 14 mg/dL (7-18); BUN/Creat Ratio 14.6 RATIO (10-20); Calcium,Total 9.5 mg/dL (8.5-10.1); Chloride 102 mmol/L (98-107); Creatinine, Serum 0.96 mg/dL (0.55-1.02); EST Glomerular Filtration Rate 60 mL/min (>60); Est Glom Filt Rate - Afr Amer 73 mL/min (>60); Glucose 106 mg/dL (74-106); Potassium 4.1 mmol/L (3.5-5.1); Protein, Total 7.6 g/dL (6.4-8.2); Sodium Level 137 mmol/L (136-145)
== END 2021-02-09 18:00 | disposition home or self-care (01) ==
LOC: LAB 15:28
PROVIDERS: PCP Family Medicine; Referring Provider Internal Medicine Rheumatology; Visit Provider Internal Medicine Rheumatology
DX: M05.70 Rheumatoid arthritis with rheumatoid factor of unspecified site without organ or systems involvement (principal); Z79.899 Other long term (current) drug therapy; M18.12 Unilateral primary osteoarthritis of first carpometacarpal joint, left hand; M21.40 Flat foot [pes planus] (acquired), unspecified foot; H35.30 Unspecified macular degeneration; I10 Essential (primary) hypertension; G47.00 Insomnia, unspecified; M51.37 Other intervertebral disc degeneration, lumbosacral region
CPT/HCPCS: 36415; 80053; 85025

== ENCOUNTER → 2021-05-28 16:42 | Outpatient (CLI) | payer MEDICARE, SELFPAY ==
[2020-12-06 23:33] VITALS: BMI 46.0
[2021-05-28 17:16] LABS: Absolute Lymphocyte Count 1.98 X10^3/uL (0.83-4.51); Absolute Neutrophil Count 3.7 X10^3/uL (2.0-7.7); Basophil# 0.05 X10^3/uL; Basophil% 0.7 % (0-1); Eosinophil# 0.38 X10^3/uL; Eosinophils% 5.6 % (0-5); Hematocrit 39.8 % (37-47); Hemoglobin 12.1 g/dL (12.0-15.0); Lymphocyte # 1.98 X10^3/ul (0.83-4.51); Mean Corp Hgb Conc 30.4 g/dL (32-36); Mean Corpuscular Volume 102.1 fL (81-99); Mean Platelet Vol. 9.7 fl (6.2-12.0); Monocyte# 0.64 X10^3/uL; Monocyte% 9.4 % (0-10); NRBC Flagged by Analyzer 0 % (0-5); Neutrophil # 3.72 X10^3/uL (2.7-7.7); Neutrophil % 54.6 % (47-70); Platelet Count 252 K/mm3 (150-450); RBC Distribution Width CV 15.9 % (11.6-14.6); RBC Distribution Width SD 58.9 fl (35.1-43.9); White Blood Count 6.8 K/mm3 (4.4-11.0)
[2021-05-28 17:55] LABS: ALB/GLOB Ratio 0.9 RATIO (0.9-2.4); AST(SGOT) 15 U/L (15-37); Alanine Aminotransfer ALT/SGPT 19 U/L (13-56); Albumin, Serum 3.7 g/dL (3.2-5.0); Alkaline Phosphatase 116 U/L (45-117); Anion Gap 2 (5-15); BUN 16 mg/dL (7-18); BUN/Creat Ratio 16.7 RATIO (10-20); Calcium,Total 9.4 mg/dL (8.5-10.1); Chloride 105 mmol/L (98-107); Creatinine, Serum 0.96 mg/dL (0.55-1.02); EST Glomerular Filtration Rate 60 mL/min (>60); Est Glom Filt Rate - Afr Amer 73 mL/min (>60); Globulin 3.9 g/dL (2.2-4.2); Glucose 97 mg/dL (74-106); Potassium 4.1 mmol/L (3.5-5.1); Protein, Total 7.6 g/dL (6.4-8.2); Sodium Level 140 mmol/L (136-145)
== END ==
LOC: MTLAB 16:44 → LAB 16:44
PROVIDERS: PCP Family Medicine; Referring Provider Internal Medicine Rheumatology; Visit Provider Internal Medicine Rheumatology
DX: M05.70 Rheumatoid arthritis with rheumatoid factor of unspecified site without organ or systems involvement (principal); Z79.899 Other long term (current) drug therapy; M18.12 Unilateral primary osteoarthritis of first carpometacarpal joint, left hand; M21.40 Flat foot [pes planus] (acquired), unspecified foot; H35.30 Unspecified macular degeneration; I10 Essential (primary) hypertension; G47.00 Insomnia, unspecified; M51.37 Other intervertebral disc degeneration, lumbosacral region
CPT/HCPCS: 36415; 80053; 85025

== ENCOUNTER 2021-08-23 14:14 | Outpatient (RCR) | payer MEDICARE, SELFPAY ==
[2020-12-06 23:33] VITALS: BMI 46.0
[2021-08-23 14:54] LABS: Absolute Lymphocyte Count 1.53 X10^3/uL (0.83-4.51); Absolute Neutrophil Count 3.4 X10^3/uL (2.0-7.7); Basophil# 0.07 X10^3/uL; Basophil% 1.2 % (0-1); Eosinophil# 0.41 X10^3/uL; Hematocrit 37.1 % (37-47); Hemoglobin 11.6 g/dL (12.0-15.0); Lymphocyte # 1.53 X10^3/ul (0.83-4.51); Lymphocyte % 26.2 % (19-41); Mean Corp Hgb Conc 31.3 g/dL (32-36); Mean Corpuscular Hgb 32.3 pg (27.0-32.0); Mean Corpuscular Volume 103.3 fL (81-99); Mean Platelet Vol. 10.1 fl (6.2-12.0); Monocyte# 0.38 X10^3/uL; Monocyte% 6.5 % (0-10); NRBC Flagged by Analyzer 0 % (0-5); Neutrophil # 3.44 X10^3/uL (2.7-7.7); Neutrophil % 58.8 % (47-70); Platelet Count 249 K/mm3 (150-450); RBC Distribution Width CV 15.7 % (11.6-14.6); RBC Distribution Width SD 59.1 fl (35.1-43.9); Red Blood Count 3.59 M/mm3 (4.2-5.4); White Blood Count 5.9 K/mm3 (4.4-11.0)
[2021-08-23 15:19] LABS: ALB/GLOB Ratio 0.8 RATIO (0.9-2.4); AST(SGOT) 19 U/L (15-37); Alanine Aminotransfer ALT/SGPT 21 U/L (13-56); Albumin, Serum 3.1 g/dL (3.2-5.0); Alkaline Phosphatase 100 U/L (45-117); Anion Gap 4 (5-15); BUN 16 mg/dL (7-18); BUN/Creat Ratio 17.3 RATIO (10-20); Chloride 106 mmol/L (98-107); Creatinine, Serum 0.92 mg/dL (0.55-1.02); EST Glomerular Filtration Rate 63 mL/min (>60); Est Glom Filt Rate - Afr Amer 76 mL/min (>60); Glucose 106 mg/dL (74-106); Potassium 4.8 mmol/L (3.5-5.1); Protein, Total 7.1 g/dL (6.4-8.2); Sodium Level 140 mmol/L (136-145)
== END 2021-09-09 05:19 | disposition home or self-care (01) ==
LOC: LAB 14:14
PROVIDERS: PCP Family Medicine; Referring Provider Internal Medicine Rheumatology; Visit Provider Internal Medicine Rheumatology
DX: M05.70 Rheumatoid arthritis with rheumatoid factor of unspecified site without organ or systems involvement (principal); M18.12 Unilateral primary osteoarthritis of first carpometacarpal joint, left hand; M21.40 Flat foot [pes planus] (acquired), unspecified foot; H35.30 Unspecified macular degeneration; I10 Essential (primary) hypertension; G47.00 Insomnia, unspecified; M51.37 Other intervertebral disc degeneration, lumbosacral region; Z79.899 Other long term (current) drug therapy
CPT/HCPCS: 36415; 80053; 85025

== ENCOUNTER → 2021-08-30 | Outpatient (CLI) | payer MEDICARE, SELFPAY ==
--- NOTE | 2021-08-29 12:55 | LES_PTH ---
PATIENT: SEVERIANO LEE LOC: [facility] U#:[id number] AGE/SX: 75/F ROOM: RE08/30/[address]: Dr. Eriberto Aceves MD : 1945 BED: DIS: 08/30/2021 SPEC #: [id number] RECD: 08/30/21 10:25 STATUS: TANIA REAimee #: [id number] SHAUNA: 08/29/21 12:[address]: Eriberto Aceves DEPT: SURGICAL PATHOLOGY RECD BY: Guerline Marcos ENTERED: 08/30/21 11:14 SP TYPE: Lesion OTHR DR: Dr. Marciano Anaya, DO Tissues: Skin of hand and finger, NOS Procedures: Surgery Specimen Level IV HEADER OPERATION: Excision right hand lesion PRE-OP DIAGNOSIS: Hand lesion TISSUE SUBMITTED: Left hand tissue MICROSCOPIC DIAGNOSIS Left hand lesion, excisional biopsy: Well-differentiated invasive squamous cell carcinoma, completely excised. Actinic keratosis and solar elastosis. See comment. TOOTIE:grace 08/31/2021 COMMENT Perineural invasion is not seen. Case has been reviewed in consultation with Dr. Willard who concurs with the above diagnosis. IDC:AM MICROSCOPIC DESCRIPTION Slides are reviewed. GROSS DESCRIPTION Received in fixative is one container labeled with the patient's name and designated left hand. The specimen consists of a guzmán-white skin ellipse measuring 4 x 2 cm and up to 0.1 cm in thickness. There is a raised guzmán-white lesion on the surface measuring 1.5 x 1.4 cm. The specimen is inked, serially sectioned and submitted entirely in three cassettes. Cassettes 2 and 3 contain the lesion. / TOOTIE:grace 08/30/21 TC:0 CPT: 49843
== END | disposition home or self-care (01) ==
LOC: LABSPEC 10:48
PROVIDERS: PCP Family Medicine; Visit Provider Surgery
DX: C44.629 Squamous cell carcinoma of skin of left upper limb, including shoulder (principal)
CPT/HCPCS: 88305

== ENCOUNTER 2021-11-29 15:25 | Outpatient (CLI) | payer MEDICARE, SELFPAY ==
[2021-11-29 17:57] LABS: Absolute Lymphocyte Count 2.48 X10^3/uL (0.83-4.51); Absolute Neutrophil Count 7.7 X10^3/uL (2.0-7.7); Basophil# 0.09 X10^3/uL; Basophil% 0.8 % (0-1); Eosinophil# 0.28 X10^3/uL; Eosinophils% 2.5 % (0-5); Hematocrit 38.9 % (37-47); Lymphocyte # 2.48 X10^3/ul (0.83-4.51); Lymphocyte % 21.8 % (19-41); Mean Corp Hgb Conc 30.8 g/dL (32-36); Mean Corpuscular Hgb 30.8 pg (27.0-32.0); Mean Corpuscular Volume 99.7 fL (81-99); Mean Platelet Vol. 10.5 fl (6.2-12.0); NRBC Flagged by Analyzer 0 % (0-5); Neutrophil # 7.68 X10^3/uL (2.7-7.7); Neutrophil % 67.5 % (47-70); Platelet Count 293 K/mm3 (150-450); RBC Distribution Width CV 15.4 % (11.6-14.6); RBC Distribution Width SD 55.5 fl (35.1-43.9); White Blood Count 11.4 K/mm3 (4.4-11.0)
[2021-11-29 18:22] LABS: ALB/GLOB Ratio 0.8 RATIO (0.9-2.4); AST(SGOT) 10 U/L (15-37); Alanine Aminotransfer ALT/SGPT 18 U/L (13-56); Albumin, Serum 3.5 g/dL (3.2-5.0); Alkaline Phosphatase 131 U/L (45-117); Anion Gap 7 (5-15); BUN 16 mg/dL (7-18); BUN/Creat Ratio 14.7 RATIO (10-20); Calcium,Total 9.5 mg/dL (8.5-10.1); Chloride 102 mmol/L (98-107); Creatinine, Serum 1.09 mg/dL (0.55-1.02); EST Glomerular Filtration Rate 52 mL/min (>60); Est Glom Filt Rate - Afr Amer 63 mL/min (>60); Globulin 4.4 g/dL (2.2-4.2); Glucose 112 mg/dL (74-106); Potassium 3.9 mmol/L (3.5-5.1); Protein, Total 7.9 g/dL (6.4-8.2); Sodium Level 136 mmol/L (136-145)
== END 2021-11-29 23:59 | disposition short-term general hospital (02) ==
LOC: MTLAB 15:26
PROVIDERS: PCP Family Medicine; Referring Provider Internal Medicine Rheumatology; Visit Provider Internal Medicine Rheumatology
DX: M05.70 Rheumatoid arthritis with rheumatoid factor of unspecified site without organ or systems involvement (principal); M18.12 Unilateral primary osteoarthritis of first carpometacarpal joint, left hand; M21.40 Flat foot [pes planus] (acquired), unspecified foot; H35.30 Unspecified macular degeneration; I10 Essential (primary) hypertension; G47.00 Insomnia, unspecified; M51.37 Other intervertebral disc degeneration, lumbosacral region; Z79.899 Other long term (current) drug therapy
CPT/HCPCS: 36415; 80053; 85025

== ENCOUNTER 2022-02-27 13:21 | Outpatient (CLI) | payer MEDICARE, SELFPAY ==
[2022-02-27 15:14] LABS: Absolute Lymphocyte Count 2.19 X10^3/uL (0.83-4.51); Absolute Neutrophil Count 4.4 X10^3/uL (2.0-7.7); Basophil# 0.08 X10^3/uL; Basophil% 1.1 % (0-1); Eosinophil# 0.35 X10^3/uL; Eosinophils% 4.7 % (0-5); Hematocrit 40.1 % (37-47); Hemoglobin 12.6 g/dL (12.0-15.0); Lymphocyte # 2.19 X10^3/ul (0.83-4.51); Lymphocyte % 29.3 % (19-41); Mean Corp Hgb Conc 31.4 g/dL (32-36); Mean Corpuscular Hgb 30.7 pg (27.0-32.0); Mean Corpuscular Volume 97.6 fL (81-99); Mean Platelet Vol. 10.2 fl (6.2-12.0); Monocyte# 0.47 X10^3/uL; Monocyte% 6.3 % (0-10); NRBC Flagged by Analyzer 0 % (0-5); Neutrophil # 4.36 X10^3/uL (2.7-7.7); Neutrophil % 58.3 % (47-70); Platelet Count 307 K/mm3 (150-450); RBC Distribution Width CV 15.1 % (11.6-14.6); RBC Distribution Width SD 54.3 fl (35.1-43.9); Red Blood Count 4.11 M/mm3 (4.2-5.4); White Blood Count 7.5 K/mm3 (4.4-11.0)
[2022-02-27 15:49] LABS: ALB/GLOB Ratio 0.8 RATIO (0.9-2.4); AST(SGOT) 12 U/L (15-37); Alanine Aminotransfer ALT/SGPT 16 U/L (13-56); Albumin, Serum 3.3 g/dL (3.2-5.0); Alkaline Phosphatase 115 U/L (45-117); Anion Gap 9 (5-15); BUN 20 mg/dL (7-18); Calcium,Total 9.3 mg/dL (8.5-10.1); Chloride 104 mmol/L (98-107); EST Glomerular Filtration Rate 57 mL/min (>60); Est Glom Filt Rate - Afr Amer 69 mL/min (>60); Globulin 4.1 g/dL (2.2-4.2); Glucose 129 mg/dL (74-106); Protein, Total 7.4 g/dL (6.4-8.2); Sodium Level 139 mmol/L (136-145)
== END 2022-02-27 23:59 | disposition home or self-care (01) ==
LOC: MTLAB 13:28
PROVIDERS: PCP Family Medicine; Referring Provider Internal Medicine Rheumatology; Visit Provider Internal Medicine Rheumatology
DX: M05.70 Rheumatoid arthritis with rheumatoid factor of unspecified site without organ or systems involvement (principal); Z79.899 Other long term (current) drug therapy; M18.12 Unilateral primary osteoarthritis of first carpometacarpal joint, left hand; M21.40 Flat foot [pes planus] (acquired), unspecified foot; H35.30 Unspecified macular degeneration; I10 Essential (primary) hypertension; G47.00 Insomnia, unspecified; M51.37 Other intervertebral disc degeneration, lumbosacral region
CPT/HCPCS: 36415; 80053; 85025

== ENCOUNTER → 2022-05-24 | Outpatient (CLI) | payer MEDICARE, SELFPAY ==
[2022-05-24 18:11] LABS: Absolute Lymphocyte Count 2.37 X10^3/uL (0.83-4.51); Absolute Neutrophil Count 5.2 X10^3/uL (2.0-7.7); Basophil# 0.09 X10^3/uL; Basophil% 1.1 % (0-1); Eosinophil# 0.32 X10^3/uL; Eosinophils% 3.7 % (0-5); Hemoglobin 12.1 g/dL (12.0-15.0); Lymphocyte # 2.37 X10^3/ul (0.83-4.51); Lymphocyte % 27.8 % (19-41); Mean Corpuscular Hgb 31.9 pg (27.0-32.0); Mean Corpuscular Volume 102.9 fL (81-99); Mean Platelet Vol. 10.5 fl (6.2-12.0); Monocyte# 0.52 X10^3/uL; Monocyte% 6.1 % (0-10); NRBC Flagged by Analyzer 0 % (0-5); Neutrophil # 5.21 X10^3/uL (2.7-7.7); Neutrophil % 60.9 % (47-70); Platelet Count 283 K/mm3 (150-450); RBC Distribution Width CV 15.5 % (11.6-14.6); RBC Distribution Width SD 57.4 fl (35.1-43.9); Red Blood Count 3.79 M/mm3 (4.2-5.4); White Blood Count 8.5 K/mm3 (4.4-11.0)
[2022-05-24 18:20] LABS: AST(SGOT) 18 U/L (15-37); Alanine Aminotransfer ALT/SGPT 20 U/L (13-56); Albumin, Serum 3.7 g/dL (3.2-5.0); Alkaline Phosphatase 125 U/L (45-117); Anion Gap 6 (5-15); BUN 16 mg/dL (7-18); BUN/Creat Ratio 16.4 RATIO (10-20); Calcium,Total 9.5 mg/dL (8.5-10.1); Chloride 102 mmol/L (98-107); Creatinine, Serum 0.97 mg/dL (0.55-1.02); EST Glomerular Filtration Rate 59 mL/min (>60); Est Glom Filt Rate - Afr Amer 71 mL/min (>60); Globulin 3.7 g/dL (2.2-4.2); Glucose 109 mg/dL (74-106); Potassium 4.1 mmol/L (3.5-5.1); Protein, Total 7.4 g/dL (6.4-8.2); Sodium Level 137 mmol/L (136-145)
== END | disposition home or self-care (01) ==
LOC: MTLAB 15:15
PROVIDERS: PCP Family Medicine; Referring Provider Internal Medicine Rheumatology; Visit Provider Internal Medicine Rheumatology
DX: M05.70 Rheumatoid arthritis with rheumatoid factor of unspecified site without organ or systems involvement (principal); Z79.899 Other long term (current) drug therapy; M18.12 Unilateral primary osteoarthritis of first carpometacarpal joint, left hand; M21.40 Flat foot [pes planus] (acquired), unspecified foot; H35.30 Unspecified macular degeneration; I10 Essential (primary) hypertension; G47.00 Insomnia, unspecified; M51.37 Other intervertebral disc degeneration, lumbosacral region
CPT/HCPCS: 36415; 80053; 85025

== ENCOUNTER → 2022-08-17 | Outpatient (CLI) | payer MEDICARE, SELFPAY ==
[2022-08-17 11:39] LABS: Absolute Lymphocyte Count 2.04 X10^3/uL (0.83-4.51); Absolute Neutrophil Count 4.8 X10^3/uL (2.0-7.7); Basophil# 0.08 X10^3/uL; Eosinophil# 0.56 X10^3/uL; Eosinophils% 6.9 % (0-5); Hematocrit 37.4 % (37-47); Hemoglobin 11.7 g/dL (12.0-15.0); Lymphocyte # 2.04 X10^3/ul (0.83-4.51); Lymphocyte % 25.1 % (19-41); Mean Corp Hgb Conc 31.3 g/dL (32-36); Mean Corpuscular Hgb 32.3 pg (27.0-32.0); Mean Corpuscular Volume 103.3 fL (81-99); Mean Platelet Vol. 9.5 fl (6.2-12.0); Monocyte# 0.57 X10^3/uL; NRBC Flagged by Analyzer 0 % (0-5); Neutrophil # 4.84 X10^3/uL (2.7-7.7); Neutrophil % 59.6 % (47-70); Platelet Count 244 K/mm3 (150-450); RBC Distribution Width CV 14.6 % (11.6-14.6); RBC Distribution Width SD 55.2 fl (35.1-43.9); Red Blood Count 3.62 M/mm3 (4.2-5.4); White Blood Count 8.1 K/mm3 (4.4-11.0)
[2022-08-17 11:58] LABS: ALB/GLOB Ratio 0.9 RATIO (0.9-2.4); AST(SGOT) 12 U/L (15-37); Alanine Aminotransfer ALT/SGPT 19 U/L (13-56); Albumin, Serum 3.2 g/dL (3.2-5.0); Alkaline Phosphatase 114 U/L (45-117); Anion Gap 5 (5-15); BUN 20 mg/dL (7-18); Calcium,Total 9.3 mg/dL (8.5-10.1); Chloride 106 mmol/L (98-107); Creatinine, Serum 0.84 mg/dL (0.55-1.02); EST Glomerular Filtration Rate 70 mL/min (>60); Est Glom Filt Rate - Afr Amer 85 mL/min (>60); Globulin 3.6 g/dL (2.2-4.2); Glucose 113 mg/dL (74-106); Potassium 4.3 mmol/L (3.5-5.1); Protein, Total 6.8 g/dL (6.4-8.2); Sodium Level 142 mmol/L (136-145)
== END | disposition home or self-care (01) ==
LOC: LAB 11:25
PROVIDERS: PCP Family Medicine; Referring Provider Internal Medicine Rheumatology; Visit Provider Internal Medicine Rheumatology
DX: M05.70 Rheumatoid arthritis with rheumatoid factor of unspecified site without organ or systems involvement (principal); M18.12 Unilateral primary osteoarthritis of first carpometacarpal joint, left hand; M21.40 Flat foot [pes planus] (acquired), unspecified foot; H35.3130 Nonexudative age-related macular degeneration, bilateral, stage unspecified; I10 Essential (primary) hypertension; G47.00 Insomnia, unspecified; M51.37 Other intervertebral disc degeneration, lumbosacral region; H34.232 Retinal artery branch occlusion, left eye; Z79.899 Other long term (current) drug therapy
CPT/HCPCS: 36415; 80053; 85025

== ENCOUNTER → 2022-10-30 | Outpatient (CLI) | payer MEDICARE, SELFPAY ==
[2022-10-30 18:07] LABS: Absolute Lymphocyte Count 1.72 X10^3/uL (0.83-4.51); Absolute Neutrophil Count 5.4 X10^3/uL (2.0-7.7); Basophil# 0.05 X10^3/uL; Basophil% 0.6 % (0-1); Eosinophils% 3.7 % (0-5); Hematocrit 39.3 % (37-47); Hemoglobin 12.3 g/dL (12.0-15.0); Lymphocyte # 1.72 X10^3/ul (0.83-4.51); Lymphocyte % 21.1 % (19-41); Mean Corp Hgb Conc 31.3 g/dL (32-36); Mean Corpuscular Hgb 31.6 pg (27.0-32.0); Monocyte# 0.65 X10^3/uL; NRBC Flagged by Analyzer 0 % (0-5); Neutrophil % 66.2 % (47-70); Platelet Count 277 K/mm3 (150-450); RBC Distribution Width CV 14.6 % (11.6-14.6); RBC Distribution Width SD 53.7 fl (35.1-43.9); Red Blood Count 3.89 M/mm3 (4.2-5.4); White Blood Count 8.2 K/mm3 (4.4-11.0)
[2022-10-30 18:34] LABS: Hemoglobin A1c 5.9 % (3.8-5.6)
[2022-10-30 18:43] LABS: T4 Free Direct 1.11 ng/dL (0.76-1.46); Thyroid Stim Hormone (TSH) 4.05 uIU/mL (0.358-3.74)
[2022-10-30 19:18] LABS: AST(SGOT) 17 U/L (15-37); Alanine Aminotransfer ALT/SGPT 21 U/L (13-56); Albumin, Serum 3.4 g/dL (3.2-5.0); Alkaline Phosphatase 114 U/L (45-117); Anion Gap 7 (5-15); BUN 17 mg/dL (7-18); BUN/Creat Ratio 17.5 RATIO (10-20); Calcium,Total 9.5 mg/dL (8.5-10.1); Chloride 103 mmol/L (98-107); Creatinine, Serum 0.97 mg/dL (0.55-1.02); EST Glomerular Filtration Rate 59 mL/min (>60); Est Glom Filt Rate - Afr Amer 72 mL/min (>60); Globulin 3.3 g/dL (2.2-4.2); Glucose 95 mg/dL (74-106); Potassium 4.2 mmol/L (3.5-5.1); Protein, Total 6.7 g/dL (6.4-8.2); Sodium Level 139 mmol/L (136-145)
== END | disposition home or self-care (01) ==
PROVIDERS: PCP Family Medicine; Referring Provider Family Medicine; Visit Provider Family Medicine
DX: R73.03 Prediabetes (principal); M05.70 Rheumatoid arthritis with rheumatoid factor of unspecified site without organ or systems involvement; E03.9 Hypothyroidism, unspecified; Z79.899 Other long term (current) drug therapy; M18.12 Unilateral primary osteoarthritis of first carpometacarpal joint, left hand; M21.40 Flat foot [pes planus] (acquired), unspecified foot; H35.3130 Nonexudative age-related macular degeneration, bilateral, stage unspecified; I10 Essential (primary) hypertension; G47.00 Insomnia, unspecified; M51.37 Other intervertebral disc degeneration, lumbosacral region; H34.232 Retinal artery branch occlusion, left eye
CPT/HCPCS: 36415; 80053; 83036; 84439; 84443; 85025

== ENCOUNTER → 2023-01-20 | Outpatient (CLI) | payer MEDICARE, SELFPAY ==
[2023-01-20 18:23] LABS: Absolute Lymphocyte Count 2.19 X10^3/uL (0.83-4.51); Absolute Neutrophil Count 5.2 X10^3/uL (2.0-7.7); Basophil# 0.08 X10^3/uL; Basophil% 0.9 % (0-1); Eosinophil# 0.59 X10^3/uL; Eosinophils% 6.6 % (0-5); Hematocrit 39.1 % (37-47); Lymphocyte # 2.19 X10^3/ul (0.83-4.51); Lymphocyte % 24.4 % (19-41); Mean Corp Hgb Conc 30.7 g/dL (32-36); Mean Corpuscular Hgb 31.9 pg (27.0-32.0); Mean Platelet Vol. 10.2 fl (6.2-12.0); NRBC Flagged by Analyzer 0 % (0-5); Neutrophil # 5.18 X10^3/uL (2.7-7.7); Neutrophil % 57.8 % (47-70); Platelet Count 265 K/mm3 (150-450); RBC Distribution Width CV 15.6 % (11.6-14.6); RBC Distribution Width SD 58.1 fl (35.1-43.9); Red Blood Count 3.76 M/mm3 (4.2-5.4)
[2023-01-20 18:38] LABS: ALB/GLOB Ratio 0.9 RATIO (0.9-2.4); AST(SGOT) 17 U/L (15-37); Alanine Aminotransfer ALT/SGPT 18 U/L (13-56); Albumin, Serum 3.4 g/dL (3.2-5.0); Alkaline Phosphatase 109 U/L (45-117); Anion Gap 8 (5-15); BUN 23 mg/dL (7-18); BUN/Creat Ratio 24.8 RATIO (10-20); Calcium,Total 9.4 mg/dL (8.5-10.1); Chloride 103 mmol/L (98-107); Creatinine, Serum 0.93 mg/dL (0.55-1.02); EST Glomerular Filtration Rate 62 mL/min (>60); Est Glom Filt Rate - Afr Amer 75 mL/min (>60); Globulin 3.7 g/dL (2.2-4.2); Glucose 81 mg/dL (74-106); Potassium 4.2 mmol/L (3.5-5.1); Protein, Total 7.1 g/dL (6.4-8.2); Sodium Level 141 mmol/L (136-145)
== END | disposition home or self-care (01) ==
LOC: MTLAB 16:10
PROVIDERS: PCP Family Medicine; Visit Provider Internal Medicine Rheumatology
DX: M18.12 Unilateral primary osteoarthritis of first carpometacarpal joint, left hand (principal); M05.70 Rheumatoid arthritis with rheumatoid factor of unspecified site without organ or systems involvement; Z79.899 Other long term (current) drug therapy; M21.40 Flat foot [pes planus] (acquired), unspecified foot; H35.3130 Nonexudative age-related macular degeneration, bilateral, stage unspecified; I10 Essential (primary) hypertension; G47.00 Insomnia, unspecified; M51.37 Other intervertebral disc degeneration, lumbosacral region; H34.232 Retinal artery branch occlusion, left eye
CPT/HCPCS: 36415; 80053; 85025

== ENCOUNTER → 2023-04-21 | Outpatient (CLI) | payer MEDICARE, SELFPAY ==
[2023-04-21 18:30] LABS: Absolute Lymphocyte Count 2.18 X10^3/uL (0.83-4.51); Basophil# 0.08 X10^3/uL; Basophil% 1.1 % (0-1); Eosinophil# 0.46 X10^3/uL; Eosinophils% 6.2 % (0-5); Hematocrit 40.4 % (37-47); Hemoglobin 12.3 g/dL (12.0-15.0); Lymphocyte # 2.18 X10^3/ul (0.83-4.51); Lymphocyte % 29.5 % (19-41); Mean Corp Hgb Conc 30.4 g/dL (32-36); Mean Corpuscular Hgb 31.1 pg (27.0-32.0); Mean Platelet Vol. 10.3 fl (6.2-12.0); Monocyte# 0.59 X10^3/uL; NRBC Flagged by Analyzer 0 % (0-5); Neutrophil # 4.04 X10^3/uL (2.7-7.7); Neutrophil % 54.7 % (47-70); Platelet Count 270 K/mm3 (150-450); RBC Distribution Width CV 14.9 % (11.6-14.6); RBC Distribution Width SD 55.9 fl (35.1-43.9); Red Blood Count 3.96 M/mm3 (4.2-5.4); White Blood Count 7.4 K/mm3 (4.4-11.0)
[2023-04-21 19:00] LABS: ALB/GLOB Ratio 0.9 RATIO (0.9-2.4); AST(SGOT) 15 U/L (15-37); Alanine Aminotransfer ALT/SGPT 15 U/L (13-56); Albumin, Serum 3.6 g/dL (3.2-5.0); Alkaline Phosphatase 134 U/L (45-117); Anion Gap 5 (5-15); BUN 17 mg/dL (7-18); BUN/Creat Ratio 17.9 RATIO (10-20); Calcium,Total 9.3 mg/dL (8.5-10.1); Chloride 104 mmol/L (98-107); Creatinine, Serum 0.95 mg/dL (0.55-1.02); EST Glomerular Filtration Rate 61 mL/min (>60); Est Glom Filt Rate - Afr Amer 73 mL/min (>60); Globulin 3.9 g/dL (2.2-4.2); Glucose 102 mg/dL (74-106); Potassium 4.7 mmol/L (3.5-5.1); Protein, Total 7.5 g/dL (6.4-8.2); Sodium Level 138 mmol/L (136-145)
== END | disposition home or self-care (01) ==
LOC: MTLAB 15:13
PROVIDERS: PCP Family Medicine; Referring Provider Internal Medicine Rheumatology; Visit Provider Internal Medicine Rheumatology
DX: M05.70 Rheumatoid arthritis with rheumatoid factor of unspecified site without organ or systems involvement (principal); Z79.899 Other long term (current) drug therapy; M18.12 Unilateral primary osteoarthritis of first carpometacarpal joint, left hand; M21.40 Flat foot [pes planus] (acquired), unspecified foot; H35.3130 Nonexudative age-related macular degeneration, bilateral, stage unspecified; I10 Essential (primary) hypertension; G47.00 Insomnia, unspecified; M51.37 Other intervertebral disc degeneration, lumbosacral region; H34.232 Retinal artery branch occlusion, left eye
CPT/HCPCS: 36415; 80053; 85025

== ENCOUNTER → 2023-07-18 | Outpatient (CLI) | payer MEDICARE, SELFPAY ==
[2023-07-18 17:36] LABS: Absolute Lymphocyte Count 1.91 X10^3/uL (0.83-4.51); Absolute Neutrophil Count 5.7 X10^3/uL (2.0-7.7); Basophil# 0.09 X10^3/uL; Eosinophil# 0.36 X10^3/uL; Eosinophils% 4.1 % (0-5); Hematocrit 39.8 % (37-47); Hemoglobin 12.2 g/dL (12.0-15.0); Lymphocyte # 1.91 X10^3/ul (0.83-4.51); Mean Corp Hgb Conc 30.7 g/dL (32-36); Mean Corpuscular Hgb 31.5 pg (27.0-32.0); Mean Corpuscular Volume 102.8 fL (81-99); Mean Platelet Vol. 10.3 fl (6.2-12.0); Monocyte% 6.9 % (0-10); NRBC Flagged by Analyzer 0 % (0-5); Neutrophil # 5.68 X10^3/uL (2.7-7.7); Neutrophil % 65.4 % (47-70); Platelet Count 281 K/mm3 (150-450); RBC Distribution Width CV 15.1 % (11.6-14.6); RBC Distribution Width SD 55.8 fl (35.1-43.9); Red Blood Count 3.87 M/mm3 (4.2-5.4); White Blood Count 8.7 K/mm3 (4.4-11.0)
[2023-07-18 18:14] LABS: ALB/GLOB Ratio 0.9 RATIO (0.9-2.4); AST(SGOT) 14 U/L (15-37); Alanine Aminotransfer ALT/SGPT 17 U/L (13-56); Albumin, Serum 3.5 g/dL (3.2-5.0); Alkaline Phosphatase 121 U/L (45-117); Anion Gap 6 (5-15); BUN 19 mg/dL (7-18); BUN/Creat Ratio 20.7 RATIO (10-20); Calcium,Total 9.2 mg/dL (8.5-10.1); Chloride 104 mmol/L (98-107); Creatinine, Serum 0.92 mg/dL (0.55-1.02); EST Glomerular Filtration Rate 63 mL/min (>60); Est Glom Filt Rate - Afr Amer 76 mL/min (>60); Globulin 3.9 g/dL (2.2-4.2); Glucose 108 mg/dL (74-106); Potassium 4.2 mmol/L (3.5-5.1); Protein, Total 7.4 g/dL (6.4-8.2); Sodium Level 137 mmol/L (136-145)
== END | disposition home or self-care (01) ==
PROVIDERS: PCP Family Medicine; Referring Provider Internal Medicine Rheumatology; Visit Provider Internal Medicine Rheumatology
DX: M05.70 Rheumatoid arthritis with rheumatoid factor of unspecified site without organ or systems involvement (principal); Z79.899 Other long term (current) drug therapy
CPT/HCPCS: 36415; 80053; 85025

== ENCOUNTER → 2023-07-31 | Outpatient (CLI) | payer MEDICARE, SELFPAY ==
--- NOTE | 2023-07-31 15:34 | US_ITS ---
EXAM: US SOFT TISSUES HEAD AND NECK, THYROID CLINICAL INDICATION: NODULES-F/U TECHNIQUE: Padron scale and color doppler imaging was performed of the thyroid gland. COMPARISON: US Thyroid dated 12/20/2020 FINDINGS: LEFT THYROID LOBE: Left thyroid lobe measures 4.3 x 1.6 x 1.7 cm. Stable left thyroid nodules. Persistent 2.5 x 1.4 cm hypoechoic nodule inferior to the left lobe which may represent exophytic thyroid nodule versus enlarged lymph node. Parathyroid adenoma not excluded. RIGHT THYROID LOBE: Right thyroid lobe measures 4.3 x 1.5 x 1.8 cm. Multinodular echotexture noted with no significant change in the size of the nodules. ISTHMUS: Isthmus measures 4 mm in AP dimension with stable 8 mm nodule on the left. US/Thyroid IMPRESSION: Stable multinodular appearance of the thyroid gland consistent with goiter. No change in the mass inferior to the left lobe. Electronically Signed: Marcos Gibbons MD at 11:47 EDT ,
== END | disposition home or self-care (01) ==
LOC: US 15:32
PROVIDERS: PCP Family Medicine; Referring Provider Family Medicine; Visit Provider Family Medicine
DX: E04.1 Nontoxic single thyroid nodule (principal)
CPT/HCPCS: 76536

== ENCOUNTER → 2023-10-10 | Outpatient (CLI) | payer MEDICARE, SELFPAY ==
[2023-10-10 17:52] LABS: Absolute Lymphocyte Count 1.66 X10^3/uL (0.83-4.51); Absolute Neutrophil Count 4.2 X10^3/uL (2.0-7.7); Basophil# 0.08 X10^3/uL; Basophil% 1.2 % (0-1); Eosinophil# 0.45 X10^3/uL; Eosinophils% 6.6 % (0-5); Hematocrit 39.3 % (37-47); Hemoglobin 12.1 g/dL (12.0-15.0); Lymphocyte # 1.66 X10^3/ul (0.83-4.51); Lymphocyte % 24.4 % (19-41); Mean Corp Hgb Conc 30.8 g/dL (32-36); Mean Corpuscular Hgb 31.3 pg (27.0-32.0); Mean Corpuscular Volume 101.8 fL (81-99); Mean Platelet Vol. 10.1 fl (6.2-12.0); Monocyte# 0.39 X10^3/uL; Monocyte% 5.7 % (0-10); NRBC Flagged by Analyzer 0 % (0-5); Neutrophil # 4.21 X10^3/uL (2.7-7.7); Neutrophil % 61.8 % (47-70); Platelet Count 266 K/mm3 (150-450); RBC Distribution Width SD 55.7 fl (35.1-43.9); Red Blood Count 3.86 M/mm3 (4.2-5.4); White Blood Count 6.8 K/mm3 (4.4-11.0)
[2023-10-10 18:19] LABS: Hemoglobin A1c 5.6 % (3.8-5.6)
[2023-10-10 18:29] LABS: ALB/GLOB Ratio 0.9 RATIO (0.9-2.4); AST(SGOT) 23 U/L (15-37); Alanine Aminotransfer ALT/SGPT 29 U/L (13-56); Albumin, Serum 3.5 g/dL (3.2-5.0); Alkaline Phosphatase 114 U/L (45-117); Anion Gap 8 (5-15); BUN 22 mg/dL (7-18); BUN/Creat Ratio 22.8 RATIO (10-20); Calcium,Total 8.9 mg/dL (8.5-10.1); Chloride 104 mmol/L (98-107); Cholesterol 214 mg/dL (200); Creatinine, Serum 0.96 mg/dL (0.55-1.02); EST Glomerular Filtration Rate 59 mL/min (>60); Est Glom Filt Rate - Afr Amer 72 mL/min (>60); Globulin 3.8 g/dL (2.2-4.2); Glucose 93 mg/dL (74-106); High Density Lipoprotein 55 mg/dL; Potassium 4.1 mmol/L (3.5-5.1); Protein, Total 7.3 g/dL (6.4-8.2); Sodium Level 138 mmol/L (136-145); T4 Free Direct 1.23 ng/dL (0.76-1.46); Thyroid Stim Hormone (TSH) 4.02 uIU/mL (0.358-3.74); Triglycerides 184 mg/dL; Very Low Density Lipoprotein 37 mg/dL (5-40)
== END | disposition home or self-care (01) ==
LOC: MTLAB 15:23
PROVIDERS: PCP Family Medicine; Referring Provider Family Medicine; Visit Provider Family Medicine
DX: M05.70 Rheumatoid arthritis with rheumatoid factor of unspecified site without organ or systems involvement (principal); Z79.899 Other long term (current) drug therapy; H35.3130 Nonexudative age-related macular degeneration, bilateral, stage unspecified; I10 Essential (primary) hypertension
CPT/HCPCS: 36415; 80053; 80061; 83036; 84439; 84443; 85025

== ENCOUNTER → 2024-01-06 | Outpatient (CLI) | payer MEDICARE, SELFPAY ==
[2024-01-06 18:06] LABS: Absolute Lymphocyte Count 2.27 X10^3/uL (0.83-4.51); Absolute Neutrophil Count 5.6 X10^3/uL (2.0-7.7); Basophil# 0.08 X10^3/uL; Basophil% 0.8 % (0-1); Eosinophil# 0.53 X10^3/uL; Eosinophils% 5.6 % (0-5); Hematocrit 40.2 % (37-47); Hemoglobin 12.3 g/dL (12.0-15.0); Lymphocyte # 2.27 X10^3/ul (0.83-4.51); Lymphocyte % 24.1 % (19-41); Mean Corp Hgb Conc 30.6 g/dL (32-36); Mean Corpuscular Hgb 31.3 pg (27.0-32.0); Mean Corpuscular Volume 102.3 fL (81-99); Mean Platelet Vol. 10.2 fl (6.2-12.0); Monocyte# 0.92 X10^3/uL; Monocyte% 9.8 % (0-10); NRBC Flagged by Analyzer 0 % (0-5); Neutrophil % 59.4 % (47-70); Platelet Count 265 K/mm3 (150-450); RBC Distribution Width CV 16.3 % (11.6-14.6); RBC Distribution Width SD 60.7 fl (35.1-43.9); Red Blood Count 3.93 M/mm3 (4.2-5.4); White Blood Count 9.4 K/mm3 (4.4-11.0)
[2024-01-06 18:42] LABS: AST(SGOT) 16 U/L (15-37); Alanine Aminotransfer ALT/SGPT 23 U/L (13-56); Albumin, Serum 3.5 g/dL (3.2-5.0); Alkaline Phosphatase 120 U/L (45-117); Anion Gap 5 (5-15); BUN 21 mg/dL (7-18); BUN/Creat Ratio 19.1 RATIO (10-20); Calcium,Total 9.6 mg/dL (8.5-10.1); Chloride 107 mmol/L (98-107); EST Glomerular Filtration Rate 51 mL/min (>60); Est Glom Filt Rate - Afr Amer 62 mL/min (>60); Globulin 3.6 g/dL (2.2-4.2); Glucose 122 mg/dL (74-106); Potassium 4.5 mmol/L (3.5-5.1); Protein, Total 7.1 g/dL (6.4-8.2); Sodium Level 140 mmol/L (136-145)
== END | disposition home or self-care (01) ==
LOC: MTLAB 15:44
PROVIDERS: PCP Family Medicine; Referring Provider Internal Medicine Rheumatology; Visit Provider Internal Medicine Rheumatology
DX: M05.70 Rheumatoid arthritis with rheumatoid factor of unspecified site without organ or systems involvement (principal); Z79.899 Other long term (current) drug therapy; M18.12 Unilateral primary osteoarthritis of first carpometacarpal joint, left hand; M21.40 Flat foot [pes planus] (acquired), unspecified foot; H35.3130 Nonexudative age-related macular degeneration, bilateral, stage unspecified; I10 Essential (primary) hypertension; G47.00 Insomnia, unspecified; M51.37 Other intervertebral disc degeneration, lumbosacral region; H34.232 Retinal artery branch occlusion, left eye
CPT/HCPCS: 36415; 80053; 85025

== ENCOUNTER → 2024-03-11 | Outpatient (CLI) | payer MEDICARE, SELFPAY ==
[2024-03-11 17:40] LABS: Absolute Lymphocyte Count 2.07 X10^3/uL (0.83-4.51); Absolute Neutrophil Count 4.8 X10^3/uL (2.0-7.7); Basophil# 0.06 X10^3/uL; Basophil% 0.8 % (0-1); Eosinophil# 0.45 X10^3/uL; Eosinophils% 5.7 % (0-5); Hematocrit 39.8 % (37-47); Hemoglobin 12.4 g/dL (12.0-15.0); Lymphocyte # 2.07 X10^3/ul (0.83-4.51); Lymphocyte % 26.1 % (19-41); Mean Corp Hgb Conc 31.2 g/dL (32-36); Mean Corpuscular Hgb 31.4 pg (27.0-32.0); Mean Corpuscular Volume 100.8 fL (81-99); Monocyte# 0.56 X10^3/uL; Monocyte% 7.1 % (0-10); NRBC Flagged by Analyzer 0 % (0-5); Neutrophil # 4.77 X10^3/uL (2.7-7.7); Neutrophil % 59.9 % (47-70); Platelet Count 287 K/mm3 (150-450); RBC Distribution Width CV 15.3 % (11.6-14.6); RBC Distribution Width SD 56.2 fl (35.1-43.9); Red Blood Count 3.95 M/mm3 (4.2-5.4); White Blood Count 7.9 K/mm3 (4.4-11.0)
[2024-03-11 18:08] LABS: ALB/GLOB Ratio 0.9 RATIO (0.9-2.4); AST(SGOT) 18 U/L (15-37); Alanine Aminotransfer ALT/SGPT 22 U/L (13-56); Albumin, Serum 3.4 g/dL (3.2-5.0); Alkaline Phosphatase 124 U/L (45-117); Anion Gap 6 (5-15); BUN 20 mg/dL (7-18); BUN/Creat Ratio 15.5 RATIO (10-20); Calcium,Total 9.6 mg/dL (8.5-10.1); Chloride 105 mmol/L (98-107); Creatinine, Serum 1.29 mg/dL (0.55-1.02); EST Glomerular Filtration Rate 43 mL/min (>60); Est Glom Filt Rate - Afr Amer 51 mL/min (>60); Globulin 3.9 g/dL (2.2-4.2); Glucose 115 mg/dL (74-106); Potassium 4.2 mmol/L (3.5-5.1); Protein, Total 7.3 g/dL (6.4-8.2); Sodium Level 137 mmol/L (136-145)
== END | disposition home or self-care (01) ==
LOC: MTLAB 15:43
PROVIDERS: PCP Family Medicine; Referring Provider Internal Medicine Rheumatology; Visit Provider Internal Medicine Rheumatology
DX: M05.70 Rheumatoid arthritis with rheumatoid factor of unspecified site without organ or systems involvement (principal); Z79.899 Other long term (current) drug therapy
CPT/HCPCS: 36415; 80053; 85025

== ENCOUNTER → 2024-03-19 | Outpatient (CLI) | payer MEDICARE, SELFPAY ==
[2024-03-19 13:53] LABS: Absolute Lymphocyte Count 2.71 X10^3/uL (0.83-4.51); Absolute Neutrophil Count 6.2 X10^3/uL (2.0-7.7); Basophil# 0.12 X10^3/uL; Basophil% 1.1 % (0-1); Eosinophil# 0.44 X10^3/uL; Eosinophils% 4.2 % (0-5); Hematocrit 41.1 % (37-47); Hemoglobin 12.6 g/dL (12.0-15.0); Lymphocyte # 2.71 X10^3/ul (0.83-4.51); Lymphocyte % 25.7 % (19-41); Mean Corp Hgb Conc 30.7 g/dL (32-36); Mean Platelet Vol. 9.3 fl (6.2-12.0); Monocyte# 0.98 X10^3/uL; Monocyte% 9.3 % (0-10); NRBC Flagged by Analyzer 0 % (0-5); Neutrophil # 6.22 X10^3/uL (2.7-7.7); Neutrophil % 59.1 % (47-70); Platelet Count 311 K/mm3 (150-450); RBC Distribution Width CV 15.4 % (11.6-14.6); RBC Distribution Width SD 56.6 fl (35.1-43.9); Red Blood Count 4.07 M/mm3 (4.2-5.4); White Blood Count 10.5 K/mm3 (4.4-11.0)
[2024-03-19 14:14] LABS: ALB/GLOB Ratio 0.9 RATIO (0.9-2.4); AST(SGOT) 15 U/L (15-37); Alanine Aminotransfer ALT/SGPT 18 U/L (13-56); Albumin, Serum 3.5 g/dL (3.2-5.0); Alkaline Phosphatase 114 U/L (45-117); Anion Gap 3 (5-15); BUN 19 mg/dL (7-18); BUN/Creat Ratio 19.3 RATIO (10-20); Calcium,Total 9.4 mg/dL (8.5-10.1); Chloride 104 mmol/L (98-107); Creatinine, Serum 0.98 mg/dL (0.55-1.02); EST Glomerular Filtration Rate 58 mL/min (>60); Est Glom Filt Rate - Afr Amer 70 mL/min (>60); Globulin 3.8 g/dL (2.2-4.2); Glucose 95 mg/dL (74-106); Potassium 4.2 mmol/L (3.5-5.1); Protein, Total 7.3 g/dL (6.4-8.2); Sodium Level 138 mmol/L (136-145)
== END | disposition home or self-care (01) ==
LOC: MTLAB 13:15
PROVIDERS: PCP Family Medicine; Referring Provider Internal Medicine Rheumatology; Visit Provider Internal Medicine Rheumatology
DX: M05.70 Rheumatoid arthritis with rheumatoid factor of unspecified site without organ or systems involvement (principal); Z79.899 Other long term (current) drug therapy
CPT/HCPCS: 36415; 80053; 85025

== ENCOUNTER 2024-03-21 20:34 | Emergency (ER) | payer MEDICARE, SELFPAY ==
[2024-03-21 20:34] VITALS: BP 154/66; PULSE 96; RESP 18; TEMP 36.6; O2SAT 95; BMI 44.9
--- NOTE | 2024-03-21 21:08 | CT_ITS ---
STUDY: CT BRAIN WITHOUT CONTRAST REASON FOR EXAM: Female, 78 years old. FALL Individualized dose optimization techniques were used for this CT. TECHNIQUE: Transaxial CT imaging of the brain was performed without administration of intravenous contrast material. COMPARISON: None FINDINGS: There are calcifications noted in the distal vertebral arteries. There are calcifications noted in the cavernous carotid arteries. This is consistent for atherosclerotic disease. Normal calvarium. There is no underlying fracture. Soft tissue swelling of the right superior scalp- right forehead. There is mild cerebral atrophy with widening of the extra-axial spaces and ventricular dilatation. There are areas of decreased attenuation within the white matter tracts of the supratentorial brain, consistent with microvascular disease changes. Normal basal ganglia and thalami. Normal brainstem. There is mild cerebellar atrophy. There is no intracranial hemorrhage. There are no findings of an acute ischemic infarction. Normal visualized paranasal sinuses. ASPECTS Score for Acute Strokes: 10/ CT/Brain/Head without Contrast IMPRESSION: There is no underlying fracture. Soft tissue swelling of the right superior scalp- right forehead. Chronic involutional changes of the brain. Electronically Signed: Tyler Benitez MD at 21:48 EDT ,
--- NOTE | 2024-03-21 21:22 | EX.ED.GENINJ ---
HPI <CHENTE Mendez - Last Filed: 03/21/24 21:58> History of Present Illness Chief Complaint: Fall Narrative Narrative: Patient presenting due to a head injury that occurred this evening. She reports that she tripped over her dog and hit her head against the storm door. There was no LOC, she is not on any blood thinners. She reports multiple abrasions to her left hand. She denies any neck pain or other injury. Tetanus Immunization: Unknown [facility] <CHENTE Mendez - Last Filed: 03/21/24 21:58> [facility] Medical History Acute blood loss anemia Acute kidney injury Acute respiratory failure with hypoxia Anxiety and depression Asthma Chronic pain syndrome GI bleed History of rheumatoid arthritis HLD (hyperlipidemia) Hyperkalemia Hypertension Lactic acidosis Morbid obesity Skin lesion of hand Squamous cell skin cancer Vision disturbance Home Medications albuterol sulfate 90 mcg/actuation aerosol inhaler (ProAir HFA) 1 - 2 puff inhalation Q6H PRN PRN Shortness Of Breath 03/15/15 [History Last Taken 10/09/16] hydrochlorothiazide 25 mg tablet 25 mg PO DAILY BP 03/15/15 [History Last Taken 09/19/20 11:00] methotrexate sodium 2.5 mg tablet 20 mg PO MO Rheumatoid arthritis 03/15/15 [History Last Taken 09/18/20] folic acid 1 mg tablet 1 mg PO DAILY@0800 #0 TABLETS 03/29/15 [Rx Last Taken 09/19/20 11:00] losartan 50 mg tablet 50 mg PO DAILY #30 TABLETS 03/29/15 [Rx Last Taken 09/19/20 11:00] prednisone 10 mg tablet 10 mg PO PRN PRN arthritis flare up 07/07/19 [History Last Taken 3 Days Ago ~09/16/20] sulfasalazine 500 mg tablet 1,000 mg PO BID arthritis 07/07/19 [History Last Taken 09/19/20 11:00] venlafaxine 150 mg capsule,extended release 24 hr 150 mg PO DAILY depression/anxiety 07/07/19 [History Last Taken 09/19/20 11:00] vitamins A,C,J-ivvj-cqbwvu 2,148 mcg-113 mg-45 mg-17.4 mg tablet 1 tab PO DAILY [facility] 07/07/19 [History Last Taken 09/19/20 11:00] atorvastatin 20 mg tablet 20 mg PO DAILY CHOLESTEROL 09/19/20 [History Last Taken 09/19/20 11:00] magnesium oxide 400 mg PO DAILY SUPPLEMENT 09/19/20 [History Last Taken 09/19/20 11:00] aspirin 81 mg tablet,delayed release 81 mg PO DAILY@0800 #30 tabs 09/20/20 [Rx Last Taken Unknown] levothyroxine 100 mcg tablet mcg PO 07/16/23 [History Last Taken Unknown] meclizine 12.5 mg tablet mg PO 07/16/23 [History Last Taken Unknown] oxycodone-acetaminophen 10 mg-325 mg tablet tab PO 07/16/23 [History Last Taken Unknown] Allergy/AdvReac Type Severity Reaction Status Date / Time adhesive Allergy Other Verified 07/16/23 14:36 amoxicillin trihydrate Allergy Unknown Verified 07/16/23 14:36 [From Augmentin] latex Allergy Unknown Verified 07/16/23 14:36 Penicillins Allergy Unknown Verified 07/16/23 14:36 potassium clavulanate Allergy Unknown Verified 07/16/23 14:36 [From Augmentin] tetracycline Allergy Unknown Verified 07/16/23 14:36 Family History Sister Hypertension Brother Heart disease Surgical History History of appendectomy History of back surgery History of hand surgery History of hip replacement History of knee replacement History of reverse total replacement of left shoulder joint History of tonsillectomy History of tubal ligation Status post reverse total replacement of right shoulder Social History Smoking Status: Former smoker alcohol intake: current substance use type: does not use ROS <CHENTE Mendez - Last Filed: 03/21/24 21:58> ROS ED Constitutional Constitutional ED: Denies chills or fever(s) Cardiovascular Cardiovascular: Denies chest pain Respiratory/Chest Respiratory/Chest: Denies cough or dyspnea Gastrointestinal Gastrointestinal: Denies abdominal pain, nausea or vomiting Musculoskeletal Musculoskeletal: Denies arthralgias or myalgias Integumentary Reports Abrasions Neurologic Neurologic: Reports headache(s); Denies weakness EXAM <CHENTE Mendez - Last Filed: 03/21/24 21:58> Physical Exam Const Vital Signs: 03/21/24 20:34 03/21/24 20:34 Temperature 97.9 F Temperature Source Oral Pulse Rate 96 Respiratory Rate 18 Respiratory Effort Normal Respiratory Depth Normal Respiratory Pattern Normal Blood Pressure 154/66 H Blood Pressure Mean 95 Pulse Ox 95 Oxygen Delivery Method Room Air Room Air Positive well nourished, well developed and no apparent distress General Appearance ED: well developed HEENT Reports normocephalic and head/scalp atraumatic HEENT Narrative: Small forehead hematoma, hematoma to the top of the head Mouth ED: Yes moist mucous membranes normal Eyes PERRL and EOMs intact bilaterally Neck full ROM and supple Chest Wall inspection of chest normal Resp normal respiratory effort and clear to auscultation bilaterally Cardio regular rate and regular rhythm GI soft to palpation, non-tender, non-distended and no masses Back/Spine normal ROM and normal to inspection Extremity full ROM General Extremety ED: Negative for tenderness Neuro oriented x3, CN's II-XII intact bilaterally, moves all extremities, no focal motor deficits and no sensory deficits noted Sensorium / Orientation: awake and alert Psych mental status grossly normal and thought process normal Skin Skin Narrative: Small abrasions to the dorsum of the left 3-5 fingers. Full flexion extension of all fingers of the left hand. <Dr. Michael Quintanilla MD - Last Filed: 03/21/24 22:13> Physical Exam Const Vital Signs: 03/21/24 20:34 03/21/24 20:34 Temperature 97.9 F Temperature Source Oral Pulse Rate 96 Respiratory Rate 18 Respiratory Effort Normal Respiratory Depth Normal Respiratory Pattern Normal Blood Pressure 154/66 H Blood Pressure Mean 95 Pulse Ox 95 Oxygen Delivery Method Room Air Room Air MDM <CHENTE Mendez - Last Filed: 03/21/24 21:58> [facility] MDM Narrative Medical decision making narrative: Patient presenting due to a mechanical fall and head injury that occurred this evening. She was able to get up and ambulate after the fall. She is well-appearing and in no acute distress. She is not on any blood thinners. Head CT will be obtained to rule out intracranial bleed. She does not have any cervical tenderness or neck pain to indicate need for cervical imaging. Multiple abrasions on the dorsum of the left hand will be cleaned and dressed with bacitracin ointment. Tetanus will be updated. Head imaging is negative for acute findings aside from soft tissue swelling to the scalp and forehead. Patient will be discharged home in stable condition. Radiography Diagnostic Testing: Clinical Impression(s) from Imaging Studies Brain CT 03/21/24 21:08 IMPRESSION: There is no underlying fracture. Soft tissue swelling of the right superior scalp- right forehead. Chronic involutional changes of the brain. Electronically Signed: Tyler Benitez MD at 21:48 EDT , <Dr. Michael Quintanilla MD - Last Filed: 03/21/24 22:13> MDM Radiography Diagnostic Testing: Clinical Impression(s) from Imaging Studies Brain CT 03/21/24 21:08 IMPRESSION: There is no underlying fracture. Soft tissue swelling of the right superior scalp- right forehead. Chronic involutional changes of the brain. Electronically Signed: Tyler Benitez MD at 21:48 EDT , Treatment and Re-Evaluation Narrative: I have personally performed a face to face assessment of the patient and have reviewed the ANGELA Note. I performed a substantive portion of the visit including all aspects of the following. My hodge findings include: History is tripped over her dog and hit her head against nearby door. Also scraped left hand. No loss of consciousness, nausea, vomiting. No anticoagulants. Exam is contusion with minor hematoma frontal high parietal mid scalp, no crepitance or depression. No Guallpa sign. No CSF otorhinorrhea. No facial tenderness. Minor abrasions/skin tears left hand fingers dorsum, able to range fully without difficulty. Medical Decison Making head CT images reviewed as well as the report which I agree with, it is negative for any acute. Patient reassured, we cleansed and dressed abrasion left hand, offered Tylenol will be discharged home with supportive care instructions. Other additions or changes: [None] Discharge Plan Triage Chief Complaint: Fall ED Midlevel Provider: Luisa An ED Provider: Michael Quintanilla Dx/Rx/DC Orders Clinical Impression: Tetanus-diphtheria (Td) vaccination, Abrasion of hand, Head injury, Fall, Hematoma of scalp Instructions: ED Abrasion, ED Head Injury (Adult) Prescriptions: No Action oxycodone-acetaminophen 10-325 mg tablet PO Patient Comments: TAKE 1 TABLET BY MOUTH THREE TIMES DAILY NEEDED levothyroxine 100 mcg tablet PO meclizine 12.5 mg tablet PO methotrexate sodium 2.5 MG tablet 20 mg PO MO Patient Comments: Rheumatoid Arthritis - on Mondays hydrochlorothiazide 25 MG tablet 25 mg PO DAILY Patient Comments: Blood pressure albuterol sulfate [ProAir HFA] 1 PUFF inhaler 1 - 2 puff inhalation Q6H PRN PRN (Reason: Shortness Of Breath) Patient Comments: As needed for Shortness of Breath losartan 50 MG tablet 50 mg PO DAILY Qty: 30 0RF Patient Comments: blood pressure folic acid 1 MG tablet 1 mg PO DAILY@0800 Qty: 0 0RF prednisone 10 MG tablet 10 mg PO PRN PRN (Reason: arthritis flare up) Rx Instructions: for arthritis flare up sulfasalazine 500 MG tablet 1,000 mg PO BID venlafaxine 150 MG capsule,extended release 24hr 150 mg PO DAILY vitamins A,C,P-saxh-eexfkz 1 EACH tablet 1 tab PO DAILY atorvastatin 20 MG tablet 20 mg PO DAILY magnesium oxide 400 MG tablet 400 mg PO DAILY aspirin 81 MG tablet 81 mg PO DAILY@0800 Qty: 30 0RF Primary Care Provider: Marciano Anaya Referrals: Marciano Anaya DO [Primary Care Provider] - 5-7 Days Activity Restrictions/Additional Instructions: Follow-up with your PCP, return for any concerning signs or symptoms. Disposition Disposition: Home, Self Care
[2024-03-21] MEDS: Diphth,Pertuss(Acell),Tet Vac 0.5 ML Vial IM (22:15)
[2024-03-21 22:26] VITALS: BP 172/73; PULSE 93; RESP 20; TEMP 36.4; O2SAT 96
== END 2024-03-21 22:47 | disposition home or self-care (01) ==
PROVIDERS: Emergency Provider Emergency Medicine; PCP Family Medicine; Visit Provider Emergency Medicine
DX: S00.03XA Contusion of scalp, initial encounter (principal); Z87.891 Personal history of nicotine dependence; Z23 Encounter for immunization; W01.198A Fall on same level from slipping, tripping and stumbling with subsequent striking against other object, initial encounter; S60.512A Abrasion of left hand, initial encounter; E78.5 Hyperlipidemia, unspecified; I10 Essential (primary) hypertension; Z79.899 Other long term (current) drug therapy; F41.8 Other specified anxiety disorders; Z79.82 Long term (current) use of aspirin; Z90.49 Acquired absence of other specified parts of digestive tract; Z96.649 Presence of unspecified artificial hip joint; Z96.659 Presence of unspecified artificial knee joint; Z98.51 Tubal ligation status
CPT/HCPCS: 70450; 90715; 99282

== ENCOUNTER → 2024-05-14 | Outpatient (CLI) | payer MEDICARE, SELFPAY ==
[2024-05-14 17:33] LABS: Absolute Lymphocyte Count 2.45 X10^3/uL (0.83-4.51); Absolute Neutrophil Count 5.2 X10^3/uL (2.0-7.7); Basophil# 0.08 X10^3/uL; Basophil% 0.9 % (0-1); Eosinophils% 6.7 % (0-5); Hematocrit 36.8 % (37-47); Hemoglobin 11.1 g/dL (12.0-15.0); Lymphocyte # 2.45 X10^3/ul (0.83-4.51); Lymphocyte % 27.5 % (19-41); Mean Corp Hgb Conc 30.2 g/dL (32-36); Mean Corpuscular Hgb 30.3 pg (27.0-32.0); Mean Corpuscular Volume 100.5 fL (81-99); Mean Platelet Vol. 10.4 fl (6.2-12.0); Monocyte# 0.52 X10^3/uL; Monocyte% 5.8 % (0-10); NRBC Flagged by Analyzer 0 % (0-5); Neutrophil # 5.23 X10^3/uL (2.7-7.7); Neutrophil % 58.8 % (47-70); Platelet Count 289 K/mm3 (150-450); RBC Distribution Width CV 15.6 % (11.6-14.6); RBC Distribution Width SD 56.7 fl (35.1-43.9); Red Blood Count 3.66 M/mm3 (4.2-5.4); White Blood Count 8.9 K/mm3 (4.4-11.0)
[2024-05-14 17:59] LABS: ALB/GLOB Ratio 0.8 RATIO (0.9-2.4); AST(SGOT) 16 U/L (15-37); Alanine Aminotransfer ALT/SGPT 26 U/L (13-56); Albumin, Serum 3.1 g/dL (3.2-5.0); Alkaline Phosphatase 131 U/L (45-117); Anion Gap 7 (5-15); BUN 19 mg/dL (7-18); BUN/Creat Ratio 18.4 RATIO (10-20); Chloride 107 mmol/L (98-107); Creatinine, Serum 1.03 mg/dL (0.55-1.02); EST Glomerular Filtration Rate 55 mL/min (>60); Est Glom Filt Rate - Afr Amer 67 mL/min (>60); Globulin 3.7 g/dL (2.2-4.2); Glucose 99 mg/dL (74-106); Potassium 4.1 mmol/L (3.5-5.1); Protein, Total 6.8 g/dL (6.4-8.2); Sodium Level 141 mmol/L (136-145)
== END | disposition home or self-care (01) ==
LOC: MTLAB 15:01
PROVIDERS: PCP Family Medicine; Referring Provider Internal Medicine Rheumatology; Visit Provider Internal Medicine Rheumatology
DX: M05.70 Rheumatoid arthritis with rheumatoid factor of unspecified site without organ or systems involvement (principal); Z79.899 Other long term (current) drug therapy
CPT/HCPCS: 36415; 80053; 85025

== ENCOUNTER → 2024-08-05 | Outpatient (CLI) | payer MEDICARE, SELFPAY ==
[2024-08-05 15:21] LABS: Absolute Lymphocyte Count 2.02 X10^3/uL (0.83-4.51); Absolute Neutrophil Count 3.8 X10^3/uL (2.0-7.7); Basophil# 0.08 X10^3/uL; Basophil% 1.2 % (0-1); Eosinophil# 0.57 X10^3/uL; Eosinophils% 8.6 % (0-5); Hematocrit 41.5 % (37-47); Hemoglobin 12.6 g/dL (12.0-15.0); Lymphocyte # 2.02 X10^3/ul (0.83-4.51); Lymphocyte % 30.5 % (19-41); Mean Corp Hgb Conc 30.4 g/dL (32-36); Mean Corpuscular Hgb 29.6 pg (27.0-32.0); Mean Corpuscular Volume 97.6 fL (81-99); Mean Platelet Vol. 10.9 fl (6.2-12.0); Monocyte# 0.19 X10^3/uL; Monocyte% 2.9 % (0-10); NRBC Flagged by Analyzer 0 % (0-5); Neutrophil # 3.75 X10^3/uL (2.7-7.7); Neutrophil % 56.6 % (47-70); Platelet Count 274 K/mm3 (150-450); RBC Distribution Width CV 15.3 % (11.6-14.6); RBC Distribution Width SD 54.3 fl (35.1-43.9); Red Blood Count 4.25 M/mm3 (4.2-5.4); White Blood Count 6.6 K/mm3 (4.4-11.0)
[2024-08-05 15:51] LABS: ALB/GLOB Ratio 0.9 RATIO (0.9-2.4); AST(SGOT) 39 U/L (15-37); Alanine Aminotransfer ALT/SGPT 36 U/L (13-56); Albumin, Serum 3.4 g/dL (3.2-5.0); Alkaline Phosphatase 137 U/L (45-117); Anion Gap 4 (5-15); BUN 15 mg/dL (7-18); BUN/Creat Ratio 15.6 RATIO (10-20); Calcium,Total 9.6 mg/dL (8.5-10.1); Chloride 105 mmol/L (98-107); Creatinine, Serum 0.96 mg/dL (0.55-1.02); EST Glomerular Filtration Rate 60 mL/min (>60); Est Glom Filt Rate - Afr Amer 72 mL/min (>60); Globulin 3.8 g/dL (2.2-4.2); Glucose 112 mg/dL (74-106); Potassium 4.7 mmol/L (3.5-5.1); Protein, Total 7.2 g/dL (6.4-8.2); Sodium Level 138 mmol/L (136-145)
== END | disposition home or self-care (01) ==
LOC: MTLAB 13:53
PROVIDERS: PCP Family Medicine; Referring Provider Internal Medicine Rheumatology; Visit Provider Internal Medicine Rheumatology
DX: M05.70 Rheumatoid arthritis with rheumatoid factor of unspecified site without organ or systems involvement (principal); Z79.899 Other long term (current) drug therapy
CPT/HCPCS: 36415; 80053; 85025

== ENCOUNTER → 2024-08-18 | Outpatient (CLI) | payer MEDICARE, SELFPAY ==
--- NOTE | 2024-08-18 10:32 | US_ITS ---
STUDY: ABDOMINAL ULTRASOUND - RIGHT UPPER QUADRANT REASON FOR VISIT: Female, 78 years old ELEVATED LIVER ENZYMES TECHNIQUE: Ultrasound evaluation of the right upper quadrant was performed with real-time and static dalal-scale imaging. TECHNICAL QUALITY: Adequate. COMPARISON: None. FINDINGS: Liver: The liver is enlarged and measures 19.5 cm. There is normal echogenicity of the liver. The bile ducts are within normal limits. There is hepatic color flow. The direction of portal flow is hepatopetal. There is no demonstrated mass lesion. Gallbladder: Normal distended gallbladder. The gallbladder wall measures 1.3 mm. There is a negative sonographic Villalobos''s sign. There is no pericholecystic fluid. There are small echogenic structures within the gallbladder, consistent with multiple gallstones. Common Bile Duct (C.B.D.): The common bile duct measures 2.1 mm. Pancreas: Normal size of the head, body and tail of the pancreas. There is increased echogenicity of the pancreas. There is no demonstrated pancreatic mass or cyst. Right Kidney: Normal size of the right kidney. The right kidney measures 11.3 cm x 6.3 cm x 4 cm. Normal renal cortex. The right cortex measures 1 cm. 2 cysts are seen within the right kidney. The larger cyst measures 1.9 cm x 1.6 cm x 1.6 cm. There is no right hydronephrosis. US/Liver IMPRESSION: Hepatomegaly. Small gallstones. Electronically Signed: Jag Barajas MD at 12:18 EDT ,
== END | disposition home or self-care (01) ==
PROVIDERS: PCP Family Medicine; Referring Provider Internal Medicine Rheumatology; Visit Provider Internal Medicine Rheumatology
DX: M05.70 Rheumatoid arthritis with rheumatoid factor of unspecified site without organ or systems involvement (principal); Z79.899 Other long term (current) drug therapy
CPT/HCPCS: 76705

== ENCOUNTER → 2024-09-30 | Outpatient (CLI) | payer MEDICARE, SELFPAY ==
[2024-09-30 15:08] LABS: Absolute Lymphocyte Count 3.03 X10^3/uL (0.83-4.51); Absolute Neutrophil Count 4.6 X10^3/uL (2.0-7.7); Basophil# 0.08 X10^3/uL; Basophil% 0.9 % (0-1); Eosinophil# 0.53 X10^3/uL; Eosinophils% 6.2 % (0-5); Hematocrit 41.8 % (37-47); Hemoglobin 12.6 g/dL (12.0-15.0); Lymphocyte # 3.03 X10^3/ul (0.83-4.51); Lymphocyte % 35.3 % (19-41); Mean Corp Hgb Conc 30.1 g/dL (32-36); Mean Corpuscular Hgb 29.9 pg (27.0-32.0); Mean Corpuscular Volume 99.3 fL (81-99); Mean Platelet Vol. 10.8 fl (6.2-12.0); Monocyte# 0.32 X10^3/uL; Monocyte% 3.7 % (0-10); NRBC Flagged by Analyzer 0 % (0-5); Neutrophil # 4.59 X10^3/uL (2.7-7.7); Neutrophil % 53.6 % (47-70); Platelet Count 288 K/mm3 (150-450); RBC Distribution Width CV 15.8 % (11.6-14.6); RBC Distribution Width SD 56.7 fl (35.1-43.9); Red Blood Count 4.21 M/mm3 (4.2-5.4); White Blood Count 8.6 K/mm3 (4.4-11.0)
[2024-09-30 15:21] LABS: ALB/GLOB Ratio 0.9 RATIO (0.9-2.4); AST(SGOT) 17 U/L (15-37); Alanine Aminotransfer ALT/SGPT 24 U/L (13-56); Albumin, Serum 3.4 g/dL (3.2-5.0); Alkaline Phosphatase 120 U/L (45-117); Anion Gap 8 (5-15); BUN 20 mg/dL (7-18); Calcium,Total 9.1 mg/dL (8.5-10.1); Chloride 105 mmol/L (98-107); Creatinine, Serum 1.05 mg/dL (0.55-1.02); EST Glomerular Filtration Rate 54 mL/min (>60); Est Glom Filt Rate - Afr Amer 65 mL/min (>60); Globulin 3.8 g/dL (2.2-4.2); Glucose 113 mg/dL (74-106); Protein, Total 7.2 g/dL (6.4-8.2); Sodium Level 138 mmol/L (136-145)
== END | disposition home or self-care (01) ==
PROVIDERS: PCP Family Medicine; Referring Provider Internal Medicine Rheumatology; Visit Provider Internal Medicine Rheumatology
DX: M05.70 Rheumatoid arthritis with rheumatoid factor of unspecified site without organ or systems involvement (principal); Z79.899 Other long term (current) drug therapy
CPT/HCPCS: 36415; 80053; 85025

== ENCOUNTER → 2024-10-25 | Outpatient (CLI) | payer MEDICARE, SELFPAY ==
[2024-10-25 15:36] LABS: Hemoglobin A1c 5.6 % (3.8-5.6)
[2024-10-25 16:01] LABS: Cholesterol 161 mg/dL (200); High Density Lipoprotein 55 mg/dL; T4 Free Direct 1.17 ng/dL (0.76-1.46); Triglycerides 160 mg/dL; Very Low Density Lipoprotein 32 mg/dL (5-40)
[2024-10-25 19:12] LABS: Vitamin D,25 Hydroxy 30.7 ng/mL
== END | disposition home or self-care (01) ==
LOC: BFHLAB 13:44
PROVIDERS: PCP Family Medicine; Referring Provider Family Medicine; Visit Provider Family Medicine
DX: I25.10 Atherosclerotic heart disease of native coronary artery without angina pectoris (principal); I10 Essential (primary) hypertension; E78.5 Hyperlipidemia, unspecified; E03.9 Hypothyroidism, unspecified; E55.9 Vitamin D deficiency, unspecified; Z79.899 Other long term (current) drug therapy; R35.0 Frequency of micturition
CPT/HCPCS: 36415; 80061; 82306; 83036; 84439; 84443

== ENCOUNTER → 2024-12-24 | Outpatient (CLI) | payer MEDICARE, SELFPAY ==
[2024-12-24 15:19] LABS: Absolute Lymphocyte Count 1.71 X10^3/uL (0.83-4.51); Absolute Neutrophil Count 6.9 X10^3/uL (2.0-7.7); Basophil# 0.09 X10^3/uL; Basophil% 0.9 % (0-1); Eosinophil# 0.86 X10^3/uL; Eosinophils% 8.4 % (0-5); Hematocrit 39.4 % (37-47); Hemoglobin 12.1 g/dL (12.0-15.0); Lymphocyte # 1.71 X10^3/ul (0.83-4.51); Lymphocyte % 16.7 % (19-41); Mean Corp Hgb Conc 30.7 g/dL (32-36); Mean Corpuscular Hgb 29.7 pg (27.0-32.0); Mean Corpuscular Volume 96.8 fL (81-99); Mean Platelet Vol. 10.7 fl (6.2-12.0); Monocyte# 0.62 X10^3/uL; NRBC Flagged by Analyzer 0 % (0-5); Neutrophil % 67.3 % (47-70); Platelet Count 335 K/mm3 (150-450); RBC Distribution Width CV 15.7 % (11.6-14.6); RBC Distribution Width SD 54.3 fl (35.1-43.9); Red Blood Count 4.07 M/mm3 (4.2-5.4); White Blood Count 10.3 K/mm3 (4.4-11.0)
[2024-12-24 16:38] LABS: ALB/GLOB Ratio 0.8 RATIO (0.9-2.4); AST(SGOT) 18 U/L (15-37); Alanine Aminotransfer ALT/SGPT 13 U/L (13-56); Alkaline Phosphatase 128 U/L (45-117); Anion Gap 8 (5-15); BUN 22 mg/dL (7-18); Calcium,Total 9.5 mg/dL (8.5-10.1); Chloride 104 mmol/L (98-107); Creatinine, Serum 1.05 mg/dL (0.55-1.02); EST Glomerular Filtration Rate 54 mL/min (>60); Est Glom Filt Rate - Afr Amer 65 mL/min (>60); Globulin 3.9 g/dL (2.2-4.2); Glucose 87 mg/dL (74-106); Potassium 4.4 mmol/L (3.5-5.1); Protein, Total 6.9 g/dL (6.4-8.2); Sodium Level 138 mmol/L (136-145)
== END | disposition home or self-care (01) ==
LOC: MTLAB 12:36
PROVIDERS: PCP Family Medicine; Referring Provider Internal Medicine Rheumatology; Visit Provider Internal Medicine Rheumatology
DX: M05.70 Rheumatoid arthritis with rheumatoid factor of unspecified site without organ or systems involvement (principal); Z79.899 Other long term (current) drug therapy
CPT/HCPCS: 36415; 80053; 85025

== ENCOUNTER → 2025-02-16 | Outpatient (CLI) | payer MEDICARE, SELFPAY ==
--- NOTE | 2025-02-16 13:47 | RAD_ITS ---
PROCEDURE: CHEST PA AND LATERAL 02/16/2025 REASON FOR EXAM: PERSISTENT COUGH, COPD TECHNIQUE: Frontal and lateral views of the chest. COMPARISON: None FINDINGS: Heart: Unremarkable. Mediastinum: Atherosclerosis. Lungs/pleura: Slightly elevated LEFT hemidiaphragm. Minimal platelike likely atelectasis/scarring in the LEFT lung base. No pleural effusion or visible pneumothorax. Bones: Demineralization. Multilevel spondylosis. Reverse geometry bilateral shoulder arthroplasty, not well evaluated. Lines and support devices: None. Other: None. RAD/Chest PA and Lateral IMPRESSION: 1. No visible acute cardiopulmonary findings. If unexplained symptoms persist, consider CT. 2. Additional description as above. Reading Location: [facility]
== END | disposition home or self-care (01) ==
LOC: MTRAD 13:45
PROVIDERS: PCP Family Medicine; Referring Provider Family Medicine; Visit Provider Family Medicine
DX: R05.9 Cough, unspecified (principal); J44.9 Chronic obstructive pulmonary disease, unspecified
CPT/HCPCS: 71046

== ENCOUNTER → 2025-03-18 | Outpatient (CLI) | payer MEDICARE, SELFPAY ==
[2025-03-18 18:00] LABS: Absolute Neutrophil Count 4.9 X10^3/uL (2.0-7.7); Basophil# 0.08 X10^3/uL; Eosinophil# 0.58 X10^3/uL; Eosinophils% 7.2 % (0-5); Hematocrit 39.6 % (37-47); Hemoglobin 12.1 g/dL (12.0-15.0); Lymphocyte % 26.2 % (19-41); Mean Corp Hgb Conc 30.6 g/dL (32-36); Mean Platelet Vol. 10.6 fl (6.2-12.0); Monocyte# 0.39 X10^3/uL; Monocyte% 4.9 % (0-10); NRBC Flagged by Analyzer 0 % (0-5); Neutrophil # 4.85 X10^3/uL (2.7-7.7); Neutrophil % 60.3 % (47-70); Platelet Count 285 K/mm3 (150-450); RBC Distribution Width CV 16.8 % (11.6-14.6); Red Blood Count 4.04 M/mm3 (4.2-5.4)
[2025-03-18 18:06] LABS: ALB/GLOB Ratio 1.3 RATIO (0.9-2.4); AST(SGOT) 30 U/L (<=31); Alanine Aminotransfer ALT/SGPT 29 U/L (<=34); Albumin, Serum 3.8 g/dL (3.4-4.8); Alkaline Phosphatase 130 U/L (35-104); Anion Gap 10 (5-15); BUN 18 mg/dL (4-19); BUN/Creat Ratio 20.9 RATIO (10-20); Calcium,Total 9.4 mg/dL (7.6-11.0); Carbon Dioxide 26.4 mmol/L (21.0-32.0); Chloride 104 mmol/L (98-108); Creatinine, Serum 0.88 mg/dL (0.70-1.20); EST Glomerular Filtration Rate 67 (>60); Globulin 2.9 g/dL (2.2-4.2); Glucose 122 mg/dL (70-99); Potassium 4.6 mmol/L (3.3-5.1); Protein, Total 6.6 g/dL (5.9-8.4); Sodium Level 140 mmol/L (133-145); Total Bilirubin 0.35 mg/dL (0.00-1.30)
== END | disposition home or self-care (01) ==
LOC: MTLAB 13:55
PROVIDERS: PCP Family Medicine; Referring Provider Internal Medicine Rheumatology; Visit Provider Internal Medicine Rheumatology
DX: M05.70 Rheumatoid arthritis with rheumatoid factor of unspecified site without organ or systems involvement (principal); Z79.899 Other long term (current) drug therapy
CPT/HCPCS: 36415; 80053; 85025

== ENCOUNTER → 2025-03-25 | Outpatient (CLI) | payer MEDICARE, SELFPAY ==
--- NOTE | 2025-03-25 13:15 | RAD_ITS ---
PROCEDURE: HIP, UNI W/ PELVIS 2-3 VIEWS 03/25/2025 REASON FOR EXAM: LEFT HIP GIVES OUT, S/P SRI TECHNIQUE: AP pelvis and two-view left hip, 3 total images COMPARISON: None available FINDINGS: Patient is rotated to the left. Partially imaged lower lumbar intervertebral disc spacers and posterior fusion at least L4 through L1. Symmetric bilateral appearing SI joint and pubic symphysis degenerative changes. Bilateral hip replacements partially imaged on the right. No fracture or dislocation. Vascular calcifications. RAD/HIP, UNI W/ Pelvis 2-3 Views IMPRESSION: Findings as above. Reading Location: [id number]
== END | disposition home or self-care (01) ==
LOC: MTRAD 13:13
PROVIDERS: PCP Family Medicine; Referring Provider Internal Medicine Rheumatology; Visit Provider Internal Medicine Rheumatology
DX: M05.70 Rheumatoid arthritis with rheumatoid factor of unspecified site without organ or systems involvement (principal); Z79.899 Other long term (current) drug therapy; M18.12 Unilateral primary osteoarthritis of first carpometacarpal joint, left hand; M21.40 Flat foot [pes planus] (acquired), unspecified foot
CPT/HCPCS: 73502

== ENCOUNTER → 2025-06-06 | Outpatient (CLI) | payer MEDICARE, SELFPAY ==
[2025-06-06 15:41] LABS: Hematocrit 39.1 % (37-47); Hemoglobin 11.9 g/dL (12.0-15.0); Immature Granulocytes Count 0.040 X10^3/uL (0.0-0.0); Mean Corp Hgb Conc 30.4 g/dL (32-36); Mean Corpuscular Volume 100.8 fL (81-99); Mean Platelet Vol. 10.9 fl (6.2-12.0); NRBC Flagged by Analyzer 0 % (0-5); Platelet Count 226 K/mm3 (150-450); RBC Distribution Width CV 16.9 % (11.6-14.6); RBC Distribution Width SD 60.9 fl (35.1-43.9); Red Blood Count 3.88 M/mm3 (4.2-5.4); White Blood Count 8.8 K/mm3 (4.4-11.0)
[2025-06-06 16:10] LABS: AST(SGOT) 21 U/L (<=31); Alanine Aminotransfer ALT/SGPT 23 U/L (<=34); Albumin, Serum 3.7 g/dL (3.4-4.8); Alkaline Phosphatase 140 U/L (35-104); Anion Gap 11 (5-15); BUN 17 mg/dL (4-19); BUN/Creat Ratio 19.3 RATIO (10-20); Calcium,Total 9.4 mg/dL (7.6-11.0); Carbon Dioxide 27.0 mmol/L (21.0-32.0); Chloride 105 mmol/L (98-108); Globulin 2.8 g/dL (2.2-4.2); Glucose 77 mg/dL (70-99); Potassium 4.7 mmol/L (3.3-5.1)
== END | disposition home or self-care (01) ==
LOC: MTLAB 13:17
PROVIDERS: PCP Family Medicine; Referring Provider Internal Medicine Rheumatology; Visit Provider Internal Medicine Rheumatology
DX: M05.70 Rheumatoid arthritis with rheumatoid factor of unspecified site without organ or systems involvement (principal); Z79.899 Other long term (current) drug therapy; M18.12 Unilateral primary osteoarthritis of first carpometacarpal joint, left hand; M21.40 Flat foot [pes planus] (acquired), unspecified foot
CPT/HCPCS: 36415; 80053; 85025

== ENCOUNTER → 2025-07-01 | Outpatient (CLI) | payer MEDICARE, SELFPAY ==
[2025-07-01 15:47] LABS: Anion Gap 14 (5-15); BUN 16 mg/dL (4-19); BUN/Creat Ratio 16.0 RATIO (10-20); Calcium,Total 9.4 mg/dL (7.6-11.0); Carbon Dioxide 22.5 mmol/L (21.0-32.0); Chloride 104 mmol/L (98-108); Glucose 89 mg/dL (70-99); Magnesium 2.3 mg/dL (1.5-2.2); Potassium 4.5 mmol/L (3.3-5.1); Troponin T High Sensitivity 11 ng/L (<=14)
== END | disposition home or self-care (01) ==
PROVIDERS: PCP Family Medicine; Referring Provider Family Medicine; Visit Provider Family Medicine
DX: I48.91 Unspecified atrial fibrillation (principal); E04.1 Nontoxic single thyroid nodule; I25.10 Atherosclerotic heart disease of native coronary artery without angina pectoris; R07.9 Chest pain, unspecified
CPT/HCPCS: 36415; 80048; 83735; 84443; 84484

== ENCOUNTER → 2025-07-05 | Outpatient (CLI) | payer MEDICARE, SELFPAY ==
[2025-07-05 18:20] LABS: Anion Gap 12 (5-15); BUN 18 mg/dL (4-19); BUN/Creat Ratio 19.4 RATIO (10-20); Calcium,Total 9.2 mg/dL (7.6-11.0); Carbon Dioxide 22.5 mmol/L (21.0-32.0); Chloride 106 mmol/L (98-108); Glucose 83 mg/dL (70-99); Potassium 4.3 mmol/L (3.3-5.1); Pro- Brain NATRIURETIC PEPTIDE 2575 pg/mL (<=1800)
== END | disposition home or self-care (01) ==
LOC: BFHLAB 16:13
PROVIDERS: PCP Family Medicine; Visit Provider Family Medicine
DX: I48.91 Unspecified atrial fibrillation (principal); I10 Essential (primary) hypertension
CPT/HCPCS: 36415; 80048; 83880

== ENCOUNTER 2025-07-09 22:24 | Inpatient (IN) | payer MEDICARE, OTHER, SELFPAY ==
[2025-07-09 22:27] VITALS: BP 93/55; PULSE 135; RESP 25; TEMP 37; O2SAT 95; BMI 42.5
[2025-07-09 22:31] VITALS: BP 93/55; PULSE 135; RESP 25; TEMP 37; O2SAT 96
[2025-07-09 22:32] VITALS: O2SAT 95
--- NOTE | 2025-07-09 22:45 | CT_ITS ---
PROCEDURE: ABDOMEN/PELVIS W IV CONT ONLY 07/09/2025 REASON FOR EXAM: ABDOMINAL PAIN, NAUSEA, MELENA TECHNIQUE: Procedure Code: [id number] Modality: CT Procedure: ABDOMEN/PELVIS W IV CONT ONLY Coronal and Sagittal reconstruction series were provided. CONTRAST: Isovue-[id number] VOLUME: 100 mL One or more dose reduction techniques were used (e.g., Automated exposure control, adjustment of the mA and/or kV according to patient size, use of iterative reconstruction technique. RADIATION DOSE SUMMARY: CTDlvol: 33.7 mGy DLP: 1738 mGycm COMPARISON: CT scan on 12/06/2020. FINDINGS: Interval appearance of mild pericardial effusion. Interval appearance of mild bilateral pleural effusions. Associated passive atelectatic airspace disease of the lower lobes. Hyperdense material is noted in the dependent aspect of the gastric body. Findings may represent acute hemorrhagic products. No precontrast images are provided to evaluate for active bleeding. Obtaining delayed phase images may increase the sensitivity of the exam. Scattered right renal simple cysts are noted with the largest measuring 1.5 cm. Fat containing umbilical hernia without incarceration. Uncomplicated colonic diverticulosis. Bilateral hip prostheses are noted. Moderate diffuse spondylosis. Unremarkable low lumbar fusion metallic hardware. Unchanged bilateral vascular calcifications in the kidneys. Chronic posterior soft tissue thickening overlying the sacrococcygeal junction, unchanged. Normal liver. Normal gallbladder and extrahepatic biliary system. Normal spleen. Normal pancreas. Normal bilateral adrenal glands. Normal size of the right kidney. There is no right renal mass. There are no right renal calculi. There is no right hydronephrosis. Normal visualized right ureter. Normal size of the left kidney. There is no left renal mass. There are no left renal calculi. There is no left hydronephrosis. Normal visualized left ureter. Normal small intestine. The appendix is visualized and appears normal. There is no demonstrated peritoneal fluid. Calcified atheromatous plaques of the abdominal aorta. Normal inferior vena cava. Normal retroperitoneum. There is no pelvic mass lesion or lymphadenopathy. There is no pelvic fluid. CT/Abdomen/Pelvis W IV Cont ONLY IMPRESSION: Interval appearance of mild pericardial effusion. Interval appearance of mild bilateral pleural effusions. Associated passive atelectatic airspace disease of the lower lobes. Hyperdense material is noted in the dependent aspect of the gastric body. Findi ngs may represent acute hemorrhagic products. No precontrast images are provided to evaluate for active bleeding. Obtaining del ayed phase images may increase the sensitivity of the exam to evaluate the significance of hyperdense material in the gastric lum en. Scattered right renal simple cysts are noted with the largest measuring 1.5 cm. Fat containing umbilical hernia without incarceration. Uncomplicated colonic diverticulosis. Bilateral hip prostheses are noted. Moderate diffuse spondylosis. Unremarkable low lumbar fusion metallic hardware. Unchanged bilateral vascular calcifications in the kidneys. Chronic posterior soft tissue thickening overlying the sacrococcygeal junction, unchanged. Reading Location: [facility]
[2025-07-09 22:51] VITALS: O2SAT 95
--- OUTSIDE RECORDS SUMMARY | 2025-07-09 22:52 | XMS RPT_ITS | CCD ---
Author Organization [facility] Care Team Providers Care Circuit Board Assembler Name Role Phone Dr. Marciano Anaya Primary Care Provider [phone] Dr. Marciano Anaya Referring Provider Dr. Remington Weaver Attending Provider Dr. Feliberto Washington Attending Provider [phone] Marciano Anaya Primary Care Provider [phone] Dr. Feliberto Washington Attending Provider [phone] Marciano Anaya DO Primary Care Provider Dr. Marciano Anaya DO Attending Provider [phone] Dr. Marciano Anaya DO Referring Provider [phone] Dr. Amina Palomo MD Attending Provider Dr. Amina Palomo MD Referring Provider Dr. Marciano Anaya DO Primary Care Provider Dr. Marciano Anaya DO Attending Provider [phone] Dr. Marciano Anaya DO Referring Provider [phone] Dr. Marciano Anaya DO Primary Care Provider Dr. Amina Palomo MD Attending Provider Dr. Amina Palomo MD Referring Provider Dr. Marciano Anaya DO Primary Care Provider Dr. Marciano Anaya DO Attending Provider [phone] Dr. Marciano Anaya DO Referring Provider [phone] Marciano Anaya Primary Care Unavailable Marciano Anaya Attending Unavailable Marciano Anaya Referring Unavailable Vellanki, Amina Attending Unavailable HéctorMarciano Primary Care Unavailable Vellanki, Amina Referring Unavailable Héctor, Marciano Primary Care Unavailable HéctorMarciano addison Attending Unavailable HéctorMarciano Referring Unavailable Héctor, Marciano Primary Care Unavailable Vellanki, Amina Attending Unavailable Vellanki, Amina Referring Unavailable Héctor, Marciano Primary Care Unavailable Vellanki, Amina Referring Unavailable Vellanki, Amina Attending Unavailable Vellanki, Amina Referring Unavailable Vellanki, Amina Attending Unavailable Héctor, Marciano Primary Care Unavailable HéctorMarciano Attending Unavailable Héctor, Marciano Primary Care Unavailable Héctor, Marciano Attending Unavailable Héctor, Marciano Referring Unavailable Héctor, Marciano Primary Care Unavailable Vellanki, Amina Attending Unavailable Héctor, Marciano Primary Care Unavailable Vellanki, Amina Referring Unavailable Vellanki, Amina Attending Unavailable Héctor, Marciano Primary Care Unavailable Vellanki, Amina Referring Unavailable Vellanki, Amina Attending Unavailable Héctor, Marciano Primary Care Unavailable Vellanki, Amina Referring Unavailable Allergies Allergy Classification Reported Allergen(s) Allergy Type Date of Onset Reaction(s) Facility (17 sources) Adhesive agent; Translations: [adhesive] Allergy to substance 1 Other [facility] (17 sources) Amoxicillin; Translations: [amoxicillin trihydrate] Drug Allergy 1 Unknown [facility] (16 sources) Latex Allergy to substance 1 Unknown [facility] (17 sources) Penicillins; Translations: [Penicillins] Allergy to substance 1 Unknown [facility] (16 sources) Tetracycline Drug Allergy 1 Unknown [facility] (17 sources) potassium clavulanate; Translations: [potassium clavulanate] Allergy to substance 1 Unknown [facility] (1 source) Latex Drug allergy (disorder) 3 [facility] Repository (1 source) Tetracycline Drug Allergy 3 [facility] Medications Current Medications Medication Drug Class(es) Dates Sig (Normalized) Sig (Original) acetaminophen 325 mg / oxyCODONE hydrochloride 10 mg oral tablet (20 sources) Opioid Agonist Start: 07-16-2023 Oxycodone-Acetamin ophen 10-325 mg tablet Active {tbl} PO 0 July 16, 2023 12:00am Start: 07-16-2023 Oxycodone-Acet aminophen Active TABLET PO July 16, 2023 12:00am Start: 11-17-2017 End: 07-16-2023 Oxycodone-Acetaminophen 1 TA BLET tablet Discontinued 1 {tbl} PO THREE TIMES A DAY November 17, 2017 1:00am July 16, 2023 2:39pm pain Start: 11-17-2017 End: 07-16-2023 take 1 tablet by mouth three times daily Oxycodone-Acetaminophen Discontinued 1 TABLET PO THREE TIMES A DAY November 17, 2017 1:00am July 16, 2023 2:39pm Albuterol Sulfate (16 sources) beta2-Adrenergic Agonist Start: 03-15-2015 take 1 puff(s) by inhalation every six hours as needed Albuterol Sulfate (Proair Hfa) 1 PUFF inhaler Active 1 - 2 PUFF INHALATION EVERY 6 HOURS NEEDED March 15, 2015 10:57am Start: 03-15-2015 Albuterol Sulf ate (Proair Hfa) 1 PUFF inhaler Active 1 - 2 NMA INHALATION EVERY 6 HOURS NEEDED as needed for Shortness Of Breath March 15, 2015 12:00am Start: 03-15-2015 take 1 puff(s) by in halation every six hours as needed Albuterol Sulfate (Proair Hfa) 1 PUFF inhaler Active 1 - 2 PUFF INHALATION EVERY 6 HOURS NEEDED March 15, 2015 12:00am ascorbic acid 113 mg / beta carotene 7160 mg / cuprous oxide 0.4 mg / dl-alpha tocopheryl acetate 100 unt / zinc oxide 17.4 mg oral tablet (16 sources) Vitamin C Start: 07-07-2019 take 1 tablet by mouth once daily Vitamins A,C,O-Hzme-Izsdev 1 EACH tablet Active 1 {tbl} PO DAILY July 07, 2019 12:00am EYE HEALTH Start: 07-07-2019 take 1 tablet by german th once daily Vitamins A,C,V-Qpln-Uvhull Active 1 TABLET PO DAILY July 07, 2019 12:00am aspirin 81 mg delayed release oral tablet (16 sources) Platelet Aggregation Inhibitor, Nonsteroidal Anti-inflammatory Drug Start: 09-20-2020 take 1 tablet by mouth once daily Aspirin 81 MG tablet Active 81 mg PO DAILY@0800 30 0 September 20, 2020 1:00am atorvastatin 20 mg oral tablet (16 sources) HMG-CoA Reductase Inhibitor Start: 09-19-2020 take 1 tablet by mouth once daily Atorvastatin 20 MG tablet Active 20 mg PO DAILY September 19, 2020 1:00am CHOLESTEROL folic acid 1 mg oral tablet (16 sources) Start: 03-29-2015 take 1 tablet by mouth once daily Folic Acid 1 MG tablet Active 1 mg PO DAILY@0800 0 0 March 29, 2015 12:00am hydroCHLOROthiazide 25 mg oral tablet (16 sources) Thiazide Diuretic Start: 03-15-2015 take 1 tablet by mouth once daily Hydrochlorothiazide 25 MG tablet Active 25 mg PO DAILY March 15, 2015 12:00am BP levothyroxine sodium 0.1 mg oral tablet (20 sources) l-Thyroxine Start: 07-16-2023 Levothyroxine 100 mcg tablet Active ug PO July 16, 2023 12:00am Start: 07-16-2023 Levothyroxine Active MCG PO July 16, 2023 12:00am Start: 09-19-2020 End: 07-16-2023 take 1 tablet by mouth once daily Levothyroxine 50 MCG tablet Discontinued 50 ug PO DAILY September 19, 2020 1:00am July 16, 2023 2:39pm THYROID losartan potassium 50 mg oral tablet (16 sources) Angiotensin 2 Receptor Sukumar Start: 03-29-2015 take 1 tablet by mouth once daily Losartan 50 MG tablet Active 50 mg PO DAILY 30 0 March 29, 2015 12:00am magnesium oxide 400 mg oral tablet (16 sources) Start: 09-19-2020 take 1 tablet by mouth once daily Magnesium Oxide 400 MG tablet Active 400 mg PO DAILY September 19, 2020 1:00am SUPPLEMENT meclizine hydrochloride 12.5 mg oral tablet (11 sources) Antiemetic Start: 07-16-2023 Meclizine 12.5 mg tablet Active mg PO July 16, 2023 12:00am Start: 07-16-2023 Meclizine Acti ve MG PO July 16, 2023 12:00am methotrexate 2.5 mg oral tablet (16 sources) Folate Analog Metabolic Inhibitor Start: 03-15-2015 Methotrexate Sodium 2.5 MG tablet Active 20 mg PO MO March 15, 2015 12:00am Rheumatoid arthritis Start: 03-15-2015 take 20 mg by mouth once Metho trexate Sodium Active 20 MG PO MO March 15, 2015 12:00am predniSONE 10 mg oral tablet (16 sources) Start: 07-07-2019 Prednisone 10 MG tablet Active 10 mg PO NEEDED as needed for arthritis flare up July 07, 2019 12:00am for arthritis flare up sulfaSALAzine 500 mg oral tablet (16 sources) Aminosalicylate Start: 07-07-2019 take 1 tablet by mouth twice daily Sulfasalazine 500 MG tablet Active 1000 mg PO TWICE A DAY July 07, 2019 12:00am arthritis Start: 07-07-2019 take 1000 mg by mout h twice daily Sulfasalazine Active 1000 MG PO TWICE A DAY July 07, 2019 12:00am 24 hr venlafaxine 150 mg extended release oral capsule (16 sources) Serotonin and Norepinephrine Reuptake Inhibitor Start: 07-07-2019 take 1 capsule by mouth once daily Venlafaxine 150 MG capsule,extended release 24hr Active 150 mg PO DAILY July 07, 2019 12:00am depression/anxiety Completed/Discontinued Medications Medication Drug Class(es) Dates Sig (Normalized) Sig (Original) acetaminophen 325 mg / HYDROcodone bitartrate 10 mg oral tablet (16 sources) Opioid Agonist Start: 03-15-2015 End: 03-29-2015 Hydrocodone-Acetami nophen 1 EACH tablet Discontinued 1 {tbl} PO 3 TIMES DAILY NEEDED as needed for Pain March 15, 2015 12:00am March 29, 2015 11:58am Start: 03-15-2015 End: 03-29-2015 take 1 tablet by mouth three times daily as needed Hydrocodone-Acetaminophen Discontinued 1 TABLET PO 3 TIMES DAILY NEEDED March 15, 2015 12:00am March 29, 2015 11:58am clindamycin 300 mg oral capsule (16 sources) Lincosamide Antibacterial Start: 09-05-2021 End: 09-12-2021 take 1 capsule by mouth three times daily Clindamycin Hcl 300 mg capsule Discontinued 300 mg PO THREE TIMES A DAY 21 7 0 September 05, 2021 12:00am September 11, 2021 12:00am September 12, 2021 12:01am administer with large glass of water clonazePAM 2 mg oral tablet (20 sources) Benzodiazepine Start: 09-19-2020 End: 07-16-2023 take 1 mg by mouth at bedtime Clonazepam 2 MG tablet Discontinued 1 mg PO AT BEDTIME September 19, 2020 1:00am July 16, 2023 2:37pm ANXIETY Start: 09-19-2020 End: 07-16-2023 take 1 mg by mouth at bedtime Clonazepam Discontinued 1 MG PO AT BEDTIME September 19, 2020 1:00am July 16, 2023 2:37pm Start: 03-15-2015 End: 03-29-2015 take 1 tablet by mouth at bedtime Clonazepam 0.5 MG tablet Discontinued 0.5 mg PO AT BEDTIME March 15, 2015 12:00am March 29, 2015 11:58am Insomnia docusate sodium 100 mg oral capsule (16 sources) Start: 03-15-2015 End: 03-29-2015 take 1 capsule by mouth once daily as needed for constipation Docusate Sodium (Colace) 100 MG capsule Discontinued 100 mg PO DAILY NEEDED as needed for Constipation March 15, 2015 12:00am March 29, 2015 11:59am ergocalciferol 1.25 mg oral capsule (16 sources) Provitamin D2 Compound Start: 03-15-2015 End: 03-29-2015 Ergocalciferol (Vitamin D2) (Vitamin D) 50,000 UNIT capsule Discontinued 09875 U PO TUTH March 15, 2015 12:00am March 29, 2015 11:59am Problems Problem Classification Problem Date Documented Da te Episodic/Chronic Acute and unspecified renal failure (16 sources) Injury of kidney; Translations: [Acute kidney failure, unspecified] 07-24-2021 Episodic Acute posthemorrhagic anemia (16 sources) Acute posthemorrhagic anemia; Translations: [Acute posthemorrhagic anemia] 07-24-2021 Episodic Anxiety disorders (16 sources) Mixed anxiety and depressive disorder; Translations: [Anxiety disorder, unspecified] 07-24-2021 Chronic Asthma (16 sources) Asthma; Translations: [Unspecified asthma, uncomplicated] 07-24-2021 Chronic Blindness and vision defects (16 sources) Visual disturbance; Translations: [Unspecified visual disturbance] 07-24-2021 Episodic Cardiac dysrhythmias (1 source) Unspecified atrial fibrillation; Translations: [Unspecified atrial fibrillation] Onset: Chronic Coronary atherosclerosis and other heart disease (1 source) Atherosclerotic heart disease of [place] coronary artery without angina pectoris; Translations: [Atherosclerotic heart disease of [place] coronary artery without angina pectoris] Onset: Chronic Disorders of lipid metabolism (16 sources) Hyperlipidemia; Translations: [Hyperlipidemia, unspecified] 07-24-2021 Chronic E Codes: Fall (6 sources) Fall; Translations: [Unspecified fall, initial encounter] 03-21-2024 Episodic Essential hypertension (16 sources) Hypertensive disorder; Translations: [Essential (primary) hypertension] 07-24-2021 Chronic Fluid and electrolyte disorders (20 sources) Hyperkalemia; Translations: [Hyperkalemia] 07-24-2021 Episodic Gastrointestinal hemorrhage (16 sources) Gastrointestinal hemorrhage; Translations: [Gastrointestinal hemorrhage, unspecified] 07-24-2021 Episodic Immunizations and screening for infectious disease (6 sources) Requires tetanus and diphtheria vaccination; Translations: [Encounter for immunization] 03-21-2024 Episodic Other connective tissue disease (16 sources) History of reverse prosthetic total arthroplasty of right shoulder; Translations: [Presence of right artificial shoulder joint] 07-24-2021 Chronic Comment on above: 03/13/15, dr panfilo middleton Other connective tissue disease (16 sources) H/O: rheumatoid arthritis; Translations: [Personal history of other diseases of the musculoskeletal system and connective tissue] 07-24-2021 Episodic Other injuries and conditions due to external causes (6 sources) Injury of head; Translations: [Unspecified injury of head, initial encounter] 03-21-2024 Episodic Other nervous system disorders (16 sources) Chronic pain syndrome; Translations: [Chronic pain syndrome] 07-24-2021 Chronic Other nervous system disorders (4 sources) Ulnar neuropathy; Translations: [Lesion of ulnar nerve, right upper limb] 07-16-2023 Chronic Other nervous system disorders (12 sources) Lesion of ulnar nerve, left upper limb; Translations: [Lesion of ulnar nerve] 07-16-2023 Chronic Other nervous system disorders (12 sources) Lesion of ulnar nerve, right upper limb; Translations: [Lesion of ulnar nerve] 07-16-2023 Chronic Other non-epithelial cancer of skin (16 sources) Squamous cell carcinoma of skin; Translations: [Squamous cell carcinoma of skin, unspecified] 09-05-2021 Episodic Other non-traumatic joint disorders (20 sources) Pain in elbow; Translations: [Pain in right elbow] 07-16-2023 Episodic Other nutritional; endocrine; and metabolic disorders (16 sources) Body mass index 40+ - severely obese; Translations: [Morbid (severe) obesity due to excess calories] 07-07-2019 Chronic Other nutritional; endocrine; and metabolic disorders (16 sources) Morbid obesity; Translations: [Morbid (severe) obesity due to excess calories] 07-24-2021 Chronic Other skin disorders (16 sources) Disorder of hand; Translations: [Disorder of the skin and subcutaneous tissue, unspecified] 07-24-2021 Episodic Respiratory failure; insufficiency; arrest (adult) (16 sources) Acute respiratory failure; Translations: [Acute respiratory failure with hypoxia] 07-24-2021 Episodic Retinal detachments; defects; vascular occlusion; and retinopathy (11 sources) Degenerative disorder of macula ; Translations: [Unspecified macular degeneration] 07-16-2023 Chronic Rheumatoid arthritis and related disease (1 source) Rheumatoid arthritis with rheumatoid factor of unspecified site without organ or systems involvement; Translations: [Rheumatoid arthritis with rheumatoid factor of unspecified site without organ or systems involvement] Onset: Chronic Superficial injury; contusion (12 sources) Hematoma of scalp; Translations: [Contusion of scalp, initial encounter] 03-21-2024 Episodic Unclassified (1 source) Cough, unspecified; Translations: [Cough, unspecified] Onset: 5 Results Test Name Value Interpretation Reference Range Facility Anion gap in Serum or Plasma Ordered By: Marciano Anaya on 07-05-2025 Anion gap [Moles/Vol] 12 mmol/L - [facility] BUN/creatinine ratioOrdered By: Marciano Anaya on 07-05-2025 Urea nitrogen/Creatinine [Mass ratio] 19.4 mg/mg - [facility] Basic Metabolic Profile (BMP )on 07-05-2025 BUN/CRE 19.4 RATIO Normal 08-29 [facility] Comment on above: Performed By: #### L 500.2500, [id number] #### [facility] Laboratory [facility] [place], [address] Calcium [Mass/Vol] 9.2 mg/dL Normal 7.6-11.0 [facility] Comment on above: Performed By: #### L 500.2500, [id number] #### [facility] [address] [place], [address] Chloride [Moles/Vol] 106 mmol/L Normal 98-108 [facility] Comment on above: Performed By: #### L 500.2500, [id number] #### [facility] [address] [place], [address] CO2 [Moles/Vol] 22.5 mmol/L Normal 21.0-32.0 [facility] Comment on above: Performed By: #### L 500.2500, [id number] #### [facility] [address] [place], [address] Creatinine [Mass/Vol] 0.91 mg/dL Normal 0.70-1.[address] [facility] Comment on above: Performed By: #### L 500.2500, [id number] #### [facility] [address] [place], [address] GAP 12 Normal 5-15 [facility] Comment on above: Performed By: #### L 500.2500, [id number] #### [facility] [address] [place], [address] GFR/1.73 sq M.predicted among non-blacks MDRD (S/P/Bld) [Vol rate/Area] 65 mL/min/{1.73_m2} Normal >60 [facility] Comment on above: Result Comment: mL/m in/1.73m2 CKD-EPI Creatinine Equation (2020) Performed By: #### L 500.2500, [id number] #### [facility] [address] [place], [address] Glucose [Mass/Vol] 83 mg/dL Normal 70-99 [facility] Comment on above: Performed By: #### L 500.2500, [id number] #### [facility] [address] [place], [address] Potassium [Moles/Vol] 4.3 mmol/L Normal 3.3-5.[address] [facility] Comment on above: Performed By: #### L 500.2500, [id number] #### [facility] [address] [place], [address] Sodium [Moles/Vol] 140 mmol/L Normal 133-145 [facility] Comment on above: Performed By: #### L 500.2500, [id number] #### [facility] [address] [place], [address] Urea nitrogen [Mass/Vol] 18 mg/dL Normal 4-19 [facility] Comment on above: Performed By: #### L 500.2500, [id number] #### [facility] [address] [place], [address] Carbon dioxide, total [Moles /volume] in Central venous bloodOrdered By: Marciano Anaya on 07-05-2025 CO2 [Moles/Vol] 22.5 mmol/L 21.0-32.0 [facility] Chloride assayOrdered By: Shelia Anaya on 07-05-2025 Chloride [Moles/Vol] 106 mmol/L 98-108 [facility] Glomerular filtration rate ( GFR) estimation/1.73 sq m using serum, plasma, or whole bOrdered By: Marciano Anaya on 07-05-2025 GFR/1.73 sq M.predicted among non-blacks MDRD (S/P/Bld) [Vol rate/Area] 65 mL/min/{1.73_m2} >60 [facility] Comment on above: mL/min/1.73m2 CKD-EP I Creatinine Equation (2020) Natriuretic peptide.B prohor maulik N-Terminal [Mass/volume] in Serum or PlasmaOrdered By: Marciano Anaya on 07-05-2025 Natriuretic peptide.B prohormone N-Terminal [Mass/Vol] 2575 pg/mL High <1800 [facility] Comment on above: Heart Failure Unlike ly: < 300 pg/mLHeart Failure Likely< 50 Years: > 450 pg/mL50-75 Years: > 900 pg/mL>75 Years: > 1800 pg/mL Potassium measurement (mass/ volume)Ordered By: Marciano Anaya on 07-05-2025 Potassium (Unsp spec) [Mass/Vol] 4.3 mmol/L 3.3-5.1 [facility] Pro- Brain NATRIURETIC PEPTI Leena 07-05-2025 Natriuretic peptide B (Bld) [Mass/Vol] 2575 pg/mL High <=1800 [facility] Comment on above: Result Comment: Hear t Failure Unlikely: < 300 pg/mL Heart Failure Likely < 50 Years: > 450 pg/mL 50-75 Years: > 900 pg/mL >75 Years: > 1800 pg/mL Performed By: #### L 500.2500, [id number] #### [facility] [address] [place] [address], [address] Serum creatinine measurement (mass/volume)Ordered By: Marciano Anaya on 07-05-2025 Creatinine [Mass/Vol] 0.91 mg/dL 0.70-1.[address] [facility] Serum glucose measurement (m ass/volume)Ordered By: Marciano Anaya on 07-05-2025 Glucose [Mass/Vol] 83 mg/dL 70-99 [facility] Serum or plasma calcium luis enrique urement (mass/volume)Ordered By: Marciano Anaya on 07-05-2025 Calcium [Mass/Vol] 9.2 mg/dL 7.6-11.0 [facility] Serum or plasma urea nitroge n measurement (mass/volume)Ordered By: Marciano Anaya on 07-05-2025 Urea nitrogen [Mass/Vol] 18 mg/dL 4-19 [facility] Sodium levelOrdered By: Marciano Anaya on 07-05-2025 Sodium [Moles/Vol] 140 mmol/L 133-145 [facility] Anion gap in Serum or Plasma Ordered By: Marciano Anaya on 07-01-2025 Anion gap [Moles/Vol] 14 mmol/L 5-[address] [facility] BUN/creatinine ratioOrdered By: Marciano Anaya on 07-01-2025 Urea nitrogen/Creatinine [Mass ratio] 16.0 mg/mg 10- [facility] Basic Metabolic Profile (BMP )on 07-01-2025 BUN/CRE 16.0 RATIO Normal - [facility] Comment on above: Performed By: #### L 100.0100, [id number] #### [facility] [address] [place], [address] Calcium [Mass/Vol] 9.4 mg/dL Normal 7.6-11.0 [facility] Comment on above: Performed By: #### L 100.0100, [id number] #### [facility] [address] [place], [address] Chloride [Moles/Vol] 104 mmol/L Normal 98-108 [facility] Comment on above: Performed By: #### L 100.0100, [id number] #### [facility] [address] [place], [address] CO2 [Moles/Vol] 22.5 mmol/L Normal 21.0-32.0 [facility] Comment on above: Performed By: #### L 100.0100, [id number] #### [facility] [address] [place], [address] Creatinine [Mass/Vol] 0.99 mg/dL Normal 0.70-1.[address] [facility] Comment on above: Performed By: #### L 100.0100, [id number] #### [facility] [address] [place], [address] GAP 14 Normal 5-15 [facility] Comment on above: Performed By: #### L 100.0100, [id number] #### [facility] [address] [place], [address] GFR/1.73 sq M.predicted among non-blacks MDRD (S/P/Bld) [Vol rate/Area] 58 mL/min/{1.73_m2} Low >60 [facility] Comment on above: Result Comment: mL/m in/1.73m2 CKD-EPI Creatinine Equation (2020) Performed By: #### L 100.0100, [id number] #### [facility] [address] [place], [address] Glucose [Mass/Vol] 89 mg/dL Normal 70-99 [facility] Comment on above: Performed By: #### L 100.0100, [id number] #### [facility] [address] [place], [address] Potassium [Moles/Vol] 4.5 mmol/L Normal 3.3-5.[address] [facility] Comment on above: Performed By: #### L 100.0100, [id number] #### [facility] [address] [place], [address] Sodium [Moles/Vol] 141 mmol/L Normal 133-145 [facility] Comment on above: Performed By: #### L 100.0100, [id number] #### [facility] [address] [place], [address] Urea nitrogen [Mass/Vol] 16 mg/dL Normal 4-19 [facility] Comment on above: Performed By: #### L 100.0100, [id number] #### [facility] [address] [place], [address] Carbon dioxide, total [Moles /volume] in Central venous bloodOrdered By: Marciano Anaya on 07-01-2025 CO2 [Moles/Vol] 22.5 mmol/L 21.0-32.0 [facility] Chloride assayOrdered By: Shelia Anaya on 07-01-2025 Chloride [Moles/Vol] 104 mmol/L 98-108 [facility] Glomerular filtration rate ( GFR) estimation/1.73 sq m using serum, plasma, or whole bOrdered By: Marciano Anaya on 07-01-2025 GFR/1.73 sq M.predicted among non-blacks MDRD (S/P/Bld) [Vol rate/Area] 58 mL/min/{1.73_m2} Low >60 [facility] Comment on above: mL/min/1.73m2 CKD-EP I Creatinine Equation (2020) L501.4021on 07-01-2025 Trop T High Sen 11 ng/L Normal <=14 [facility] Comment on above: Performed By: #### L 100.0100, L500.4050 #### [facility] [address] [place], [address] Magnesiumon 07-01-2025 Magnesium [Mass/Vol] 2.3 mg/dL High 1.5-2.2 [facility] Comment on above: Performed By: #### L 100.0100, L500.4050 #### [facility] [address] [place], [address] Magnesium measurement (mass/ volume)Ordered By: Marciano Anaya on 07-01-2025 Magnesium (Unsp spec) [Mass/Vol] 2.3 mg/dL High 1.5-2.2 [facility] Potassium measurement (mass/ volume)Ordered By: Marciano Anaya on 07-01-2025 Potassium (Unsp spec) [Mass/Vol] 4.5 mmol/L 3.3-5.1 [facility] Serum creatinine measurement (mass/volume)Ordered By: Marciano Anaya on 07-01-2025 Creatinine [Mass/Vol] 0.99 mg/dL 0.70-1.[address] [facility] Serum glucose measurement (m ass/volume)Ordered By: Marciano Anaya on 07-01-2025 Glucose [Mass/Vol] 89 mg/dL 70-99 [facility] Serum or plasma calcium luis enrique urement (mass/volume)Ordered By: Marciano Anaya on 07-01-2025 Calcium [Mass/Vol] 9.4 mg/dL 7.6-11.0 [facility] Serum or plasma urea nitroge n measurement (mass/volume)Ordered By: Marciano Anaya on 07-01-2025 Urea nitrogen [Mass/Vol] 16 mg/dL 4-19 [facility] Sodium levelOrdered By: Marcaino nAaya on 07-01-2025 Sodium [Moles/Vol] 141 mmol/L 133-145 [facility] TSH DL <= 0.005 mIU/L QnOrde red By: Marciano Anaya on 07-01-2025 TSH Qn 3.190 uIU/mL 0.300-4.200 [facility] Thyroid Stim Hormone (TSH)on 07-01-2025 TSH 3.190 uIU/mL Normal 0.300-4.200 [facility] Comment on above: Performed By: #### L 100.0100, L500.4050 #### [facility] [address] [place], [address] Troponin T.cardiac [Mass/vol ume] in Serum or Plasma by High sensitivity methodOrdered By: Marciano Anaya on 07-01-2025 Troponin T.cardiac High sensitivity method [Mass/Vol] 11 ng/L <14 [facility] Absolute lymphocyte countOrd ered By: Amina Palomo on 06-06-2025 Lymphocytes Auto (Unsp spec) [#/Vol] 2.41 10*3/uL 0.83-4.51 [facility] Absolute neutrophil countOrd ered By: Amina Palomo on 06-06-2025 Neutrophils (Bld) [#/Vol] 4.4 10*3/uL 2.0-7.7 [facility] Anion gap in Serum or Plasma Ordered By: Amina Palomo on 06-06-2025 Anion gap [Moles/Vol] 11 mmol/L 5-[address] [facility] Automated lymphocyte count a s percentage of total leukocytesOrdered By: Amina Palomo on 06-06-2025 Lymphocytes/100 WBC Auto (Unsp spec) 27.5 % 19-41 [facility] BUN/creatinine ratioOrdered By: Amina Palomo on 06-06-2025 Urea nitrogen/Creatinine [Mass ratio] 19.3 mg/mg 10-20 [facility] Basophil percentageOrdered B y: Amina Cisselanki on 06-06-2025 Basophils/100 WBC (Bld) 0.9 % 0-1 [facility] Bilirubin, totalOrdered By: Amina Tamayocatina on 06-06-2025 Bilirubin [Mass/Vol] 0.29 mg/dL 0.00-1.30 [facility] CBC W/Diff, Automatedon 05-11 Absolute Lymph 2.41 X10 3/uL Normal 0.83-4.51 [facility] Comment on above: Performed By: #### L 100.0100, L500.4050 #### [facility] [address] [place], [address] Absolute Neut 4.4 X10 3/uL Normal 2.0-7.7 [facility] Comment on above: Performed By: #### L 100.0100, L500.4050 #### [facility] [address] [place], [address] Basophils/100 WBC (Bld) 0.9 % Normal 0-1 [facility] Comment on above: Performed By: #### L 100.0100, L500.4050 #### [facility] [address] [place], [address] Eosinophils/100 WBC (Bld) 10.0 % High 0-5 [facility] Comment on above: Performed By: #### L 100.0100, L500.4050 #### [facility] [address] [place], [address] Erythrocyte distribution width (RBC) [Ratio] 16.9 % High 11.6-14.6 [facility] Comment on above: Performed By: #### L 100.0100, L500.4050 #### [facility] [address] [place], [address] Hematocrit (Bld) [Volume fraction] 39.1 % Normal 37-47 [facility] Comment on above: Performed By: #### L 100.0100, L500.4050 #### [facility] [address] [place], [address] Hemoglobin (Bld) [Mass/Vol] 11.9 g/dL Low 12.0-15.0 [facility] Comment on above: Performed By: #### L 100.0100, L500.4050 #### [facility] [address] [place], [address] IG% 0.500 Normal 0.0-0.9 [facility] Comment on above: Result Comment: IG% - Immature Granulocytes (promyelocytes, myelocytes and metamyelocytes) > 1% indicates that a LEFT SHIFT is Present. Performed By: #### L 100.0100, L500.4050 #### [facility] [address] [place], [address] Lymphocytes/100 WBC (Bld) 27.5 % Normal 19-41 [facility] Comment on above: Performed By: #### L 100.0100, L500.4050 #### [facility] [address] [place], [address] MCH (RBC) [Entitic mass] 30.7 pg Normal 27.0-32.0 [facility] Comment on above: Performed By: #### L 100.0100, L500.4050 #### [facility] [address] [place], [address] MCHC (RBC) [Mass/Vol] 30.4 g/dL Low 32-[address] [facility] Comment on above: Performed By: #### L 100.0100, L500.4050 #### [facility] [address] [place], [address] MCV (RBC) [Entitic vol] 100.8 fL High 81-99 [facility] Comment on above: Performed By: #### L 100.0100, L500.4050 #### [facility] [address] [place], [address] Monocytes/100 WBC (Bld) 10.7 % High 0-10 [facility] Comment on above: Performed By: #### L 100.0100, L500.4050 #### [facility] [address] [place], [address] Neutrophils/100 WBC (Bld) 50.4 % Normal 47-70 [facility] Comment on above: Performed By: #### L 100.0100, L500.4050 #### [facility] [address] [place], [address] Nucleated RBC (Bld) [#/Vol] 0 10*3/uL Normal 0-5 [facility] Comment on above: Performed By: #### L 100.0100, L500.4050 #### [facility] [address] [place], [address] Platelet mean volume (Bld) [Entitic vol] 10.9 fL Normal 6.2-12.0 [facility] Comment on above: Performed By: #### L 100.0100, L500.4050 #### [facility] [address] [place], [address] Platelets (Bld) [#/Vol] 226 10*3/uL Normal 150-450 [facility] Comment on above: Performed By: #### L 100.0100, L500.4050 #### [facility] [address] [place], [address] RBC (Bld) [#/Vol] 3.88 10*6/uL Low 4.2-5.4 [facility] Comment on above: Performed By: #### L 100.0100, L500.4050 #### [facility] [address] [place], [address] RDW SD 60.9 fl High 35.1-43.9 [facility] Comment on above: Performed By: #### L 100.0100, L500.4050 #### [facility] [address] [place], [address] WBC (Bld) [#/Vol] 8.8 10*3/uL Normal 4.4-11.0 [facility] Comment on above: Performed By: #### L 100.0100, L500.4050 #### [facility] [address] [place], [address] Carbon dioxide, total [Moles /volume] in Central venous bloodOrdered By: Amina Palomo on 06-06-2025 CO2 [Moles/Vol] 27.0 mmol/L 21.0-32.0 [facility] Chloride assayOrdered By: Marcelo Palomo on 06-06-2025 Chloride [Moles/Vol] 105 mmol/L 98-108 [facility] Comprehensive Metabolic Prof ilon 06-06-2025 Albumin [Mass/Vol] 3.7 g/dL Normal 3.4-4.8 [facility] Comment on above: Performed By: #### L 100.0100, L500.4050 #### [facility] [address] [place], [address] Albumin/Globulin [Mass ratio] 1.3 {ratio} Normal 0.9-2.4 [facility] Comment on above: Performed By: #### L 100.0100, L500.4050 #### [facility] [address] [place], [address] ALK PHOS 140 U/L High 35-104 [facility] Comment on above: Performed By: #### L 100.0100, L500.4050 #### [facility] [address] [place], [address] ALT [Catalytic activity/Vol] 23 U/L Normal <=34 [facility] Comment on above: Performed By: #### L 100.0100, L500.4050 #### [facility] [address] [place], [address] AST [Catalytic activity/Vol] 21 U/L Normal <=31 [facility] Comment on above: Performed By: #### L 100.0100, L500.4050 #### [facility] [address] [place], [address] Bilirubin [Mass/Vol] 0.29 mg/dL Normal 0.00-1.30 [facility] Comment on above: Performed By: #### L 100.0100, L500.4050 #### [facility] [address] [place], [address] BUN/CRE 19.3 RATIO Normal 10-20 [facility] Comment on above: Performed By: #### L 100.0100, L500.4050 #### [facility] [address] [place], [address] Calcium [Mass/Vol] 9.4 mg/dL Normal 7.6-11.0 [facility] Comment on above: Performed By: #### L 100.0100, L500.4050 #### [facility] [address] [place], [address] Chloride [Moles/Vol] 105 mmol/L Normal 98-108 [facility] Comment on above: Performed By: #### L 100.0100, L500.4050 #### [facility] [address] [place], [address] CO2 [Moles/Vol] 27.0 mmol/L Normal 21.0-32.0 [facility] Comment on above: Performed By: #### L 100.0100, L500.4050 #### [facility] [address] [place], [address] Creatinine [Mass/Vol] 0.89 mg/dL Normal 0.70-1.[address] [facility] Comment on above: Performed By: #### L 100.0100, L500.4050 #### [facility] [address] [place], [address] GAP 11 Normal 5-15 [facility] Comment on above: Performed By: #### L 100.0100, L500.4050 #### [facility] [address] [place], [address] GFR/1.73 sq M.predicted among non-blacks MDRD (S/P/Bld) [Vol rate/Area] 66 mL/min/{1.73_m2} Normal >60 [facility] Comment on above: Result Comment: mL/m in/1.73m2 CKD-EPI Creatinine Equation (2020) Performed By: #### L 100.0100, L500.4050 #### [facility] [address] [place], [address] Globulin (S) [Mass/Vol] 2.8 g/dL Normal 2.2-4.2 [facility] Comment on above: Performed By: #### L 100.0100, L500.4050 #### [facility] [address] [place], [address] Glucose [Mass/Vol] 77 mg/dL Normal 70-99 [facility] Comment on above: Performed By: #### L 100.0100, L500.4050 #### [facility] [address] [place], [address] Potassium [Moles/Vol] 4.7 mmol/L Normal 3.3-5.[address] [facility] Comment on above: Performed By: #### L 100.0100, L500.4050 #### [facility] [address] [place], [address] Sodium [Moles/Vol] 143 mmol/L Normal 133-145 [facility] Comment on above: Performed By: #### L 100.0100, L500.4050 #### [facility] [address] [place], [address] T PROT 6.5 g/dL Normal 5.9-8.4 [facility] Comment on above: Performed By: #### L 100.0100, L500.4050 #### [facility] [address] [place], [address] Urea nitrogen [Mass/Vol] 17 mg/dL Normal 4-19 [facility] Comment on above: Performed By: #### L 100.0100, L500.4050 #### [facility] [address] [place], [address] Eosinophil percentageOrdered By: Amina Palomo on 06-06-2025 Eosinophils/100 WBC (Bld) 10.0 % High 0-5 [facility] Erythrocyte distribution wid th ratioOrdered By: [facility] on 06-06-2025 Erythrocyte distribution width (RBC) [Ratio] 16.9 % High 11.6-14.6 [facility] Erythrocyte distribution wid th standard deviationOrdered By: Aminashelia Palomo on 06-06-2025 Erythrocyte distribution width (RBC) [Ratio] 60.9 fl High 35.1-43.9 [facility] Glomerular filtration rate ( GFR) estimation/1.73 sq m using serum, plasma, or whole bOrdered By: Amina Palomo on 06-06-2025 GFR/1.73 sq M.predicted among non-blacks MDRD (S/P/Bld) [Vol rate/Area] 66 mL/min/{1.73_m2} >60 [facility] Comment on above: mL/min/1.73m2 CKD-EP I Creatinine Equation (2020) Hematocrit Auto (Bld) [Volum e fraction]Ordered By: Amina Palomo on 06-06-2025 Hematocrit (Bld) [Volume fraction] 39.1 % 37-47 [facility] Hemoglobin measurementOrdere d By: Amina Palomo on 06-06-2025 Hemoglobin (Bld) [Mass/Vol] 11.9 g/dL Low 12.0-15.0 [facility] Immature granulocytes/100 WB C Auto (Bld)Ordered By: Amina Palomo on 06-06-2025 Immature granulocytes/100 WBC (Bld) 0.500 % 0.0-0.9 [facility] Comment on above: IG% - Immature Granu locytes (promyelocytes, myelocytes and metamyelocytes) > 1% indicates that a LEFT SHIFT is Present. Laboratory - Chemistry and C hemistry - challengeOrdered By: Amina Palomo on 06-06-2025 AST [Catalytic activity/Vol] 21 U/L <32 [facility] MCV (mean corpuscular volume ) determinationOrdered By: Amina Palomo on 06-06-2025 MCV (RBC) [Entitic vol] 100.8 fL High 81-99 [facility] Mean corpuscular hemoglobin (MCH) determinationOrdered By: Amina Palomo on 06-06-2025 MCH (RBC) [Entitic mass] 30.7 pg 27.0-32.0 [facility] Mean corpuscular hemoglobin concentration (MCHC) determinationOrdered By: Amina Palomo on 06-06-2025 MCHC (RBC) [Mass/Vol] 30.4 g/dL Low 32-[address] [facility] Mean platelet volume determi nationOrdered By: Amina Palomo on 06-06-2025 Platelet mean volume (Bld) [Entitic vol] 10.9 fL 6.2-12.0 [facility] Monocyte percentageOrdered B y: Amina Palomo on 06-06-2025 Monocytes/100 WBC (Bld) 10.7 % High 0-10 [facility] Neutrophil percentageOrdered By: Amina Palomo on 06-06-2025 Neutrophils/100 WBC (Bld) 50.4 % 47-70 [facility] Nucleated red blood cell per centageOrdered By: Amina Palomo on 06-06-2025 Nucleated RBC/100 WBC (Bld) [Ratio] 0 % 0-5 [facility] Platelet countOrdered By: Marcelo Palomo on 06-06-2025 Platelets (Bld) [#/Vol] 226 10*3/uL 150-450 [facility] Potassium measurement (mass/ volume)Ordered By: Amina Palomo on 06-06-2025 Potassium (Unsp spec) [Mass/Vol] 4.7 mmol/L 3.3-5.1 [facility] RBC Auto (Bld) [#/Vol]Ordere d By: Amina Palomo on 06-06-2025 RBC (Bld) [#/Vol] 3.88 10*6/uL Low 4.2-5.4 [facility] Serum creatinine measurement (mass/volume)Ordered By: Amina Palomo on 06-06-2025 Creatinine [Mass/Vol] 0.89 mg/dL 0.70-1.[address] [facility] Serum globulin measurementOr dered By: Amina Palomo on 06-06-2025 Globulin (S) [Mass/Vol] 2.8 g/dL 2.2-4.2 [facility] Serum glucose measurement (m ass/volume)Ordered By: Amina Palomo on 06-06-2025 Glucose [Mass/Vol] 77 mg/dL 70-99 [facility] Serum or plasma alanine duckworth otransferase (ALT) measurementOrdered By: Amina Palomo on 06-06-2025 ALT [Catalytic activity/Vol] 23 U/L <35 [facility] Serum or plasma albumin luis enrique urement (mass/volume)Ordered By: Amina Palomo on 06-06-2025 Albumin [Mass/Vol] 3.7 g/dL 3.4-4.8 [facility] Serum or plasma albumin/glob ulin mass ratioOrdered By: Amina Palomo on 06-06-2025 Albumin/Globulin [Mass ratio] 1.3 {ratio} 0.9-2.4 [facility] Serum or plasma alkaline carole sphatase measurementOrdered By: Amina Palomo on 06-06-2025 ALP [Catalytic activity/Vol] 140 U/L High 35-104 [facility] Serum or plasma calcium luis enrique urement (mass/volume)Ordered By: Amina Palomo on 06-06-2025 Calcium [Mass/Vol] 9.4 mg/dL 7.6-11.0 [facility] Serum or plasma urea nitroge n measurement (mass/volume)Ordered By: Amina Palomo on 06-06-2025 Urea nitrogen [Mass/Vol] 17 mg/dL 4-19 [facility] Sodium levelOrdered By: Annabella Palomo on 06-06-2025 Sodium [Moles/Vol] 143 mmol/L 133-145 [facility] Total proteinOrdered By: Dale Palomo on 06-06-2025 Protein [Mass/Vol] 6.5 g/dL 5.9-8.4 [facility] White blood cell (WBC) count Ordered By: Amina Paolmo on 06-06-2025 WBC (Bld) [#/Vol] 8.8 10*3/uL 4.4-11.0 [facility] HIP, UNI W/ Pelvis 2-3 Views on 03-25-2025 HIP, UNI W/ Pelvis 2-3 Views [facility] Imaging Services [address] [place] [address] [id number] HIP, UNI W/ Pelvis 2-3 Views MR#: [id number] Acct: [id number] Name: SEVERIANO LEE Rep #: [id number] : 1945 F 79 From: Eriberto Tadeo MD PCP: Dr. Marciano Anaya, DO Status: REG CLI Study: HIP, UNI W/ Pelvis 2-3 Views Date of Exam: Exam# [id number] Ordering Dr: Amina Palomo MD PROCEDURE: HIP, UNI W/ PELVIS 2-3 VIEWS 03/25/2025 REASON FOR EXAM: LEFT HIP GIVES OUT, S/P SRI TECHNIQUE: AP pelvis and two-view left hip, 3 total images COMPARISON: None available FINDINGS: Patient is rotated to the left. Partially imaged lower lumbar intervertebral disc spacers and posterior fusion at least L4 through L1. Symmetric bilateral appearing SI joint and pubic symphysis degenerative changes. Bilateral hip replacements partially imaged on the right. No fracture or dislocation. Vascular calcifications. RAD/HIP, UNI W/ Pelvis 2-3 Views IMPRESSION: Findings as above. Reading Location: [facility] CC: Dr. Marciano Anaya DO; Dr. Amina Palomo MD Care Transition Mgr: Signed Normal [facility] Absolute lymphocyte countOrd ered By: Amina Palomo on 03-18-2025 Lymphocytes Auto (Unsp spec) [#/Vol] 2.10 10*3/uL 0.83-4.51 [facility] Absolute neutrophil countOrd ered By: Amina Palomo on 03-18-2025 Neutrophils (Bld) [#/Vol] 4.9 10*3/uL 2.0-7.7 [facility] Anion gap in Serum or Plasma Ordered By: Amina Palomo on 03-18-2025 Anion gap [Moles/Vol] 10 mmol/L 5-[address] [facility] Automated blood erythrocyte countOrdered By: Amina Palomo on 03-18-2025 RBC (Bld) [#/Vol] 4.04 10*6/uL Low 4.2-5.4 [facility] Comment on above: Performed By: #### L 500.2500, L503.7505 #### [facility] [address] [place], [place], [address] Automated blood hematocrit ( percentage)Ordered By: Amina Palomo on 03-18-2025 Hematocrit (Bld) [Volume fraction] 39.6 % Normal 37-47 [facility] Comment on above: Performed By: #### L 500.2500, L503.7505 #### [facility] [address] [place], [address] Automated lymphocyte count a s percentage of total leukocytesOrdered By: Aimna Palomo on 03-18-2025 Lymphocytes/100 WBC Auto (Unsp spec) 26.2 % 19-41 [facility] BUN/creatinine ratioOrdered By: Amina Palomo on 03-18-2025 Urea nitrogen/Creatinine [Mass ratio] 20.9 mg/mg High 10-20 [facility] Basophil percentageOrdered B y: Amina Palomo on 03-18-2025 Basophils/100 WBC (Bld) 1.0 % Normal 0-1 [facility] Comment on above: Performed By: #### L 500.2500, L503.7505 #### [facility] [address] [place], [address] Bilirubin, totalOrdered By: Amina Palomo on 03-18-2025 Bilirubin [Mass/Vol] 0.35 mg/dL 0.00-1.30 [facility] CBC W/Diff, Automatedon Absolute Lymph 2.10 X10 3/uL Normal 0.83-4.51 [facility] Comment on above: Performed By: #### L 500.2500, L503.7505 #### [facility] [address] [place], [address] Absolute Neut 4.9 X10 3/uL Normal 2.0-7.7 [facility] Comment on above: Performed By: #### L 500.2500, L503.7505 #### [facility] [address] [place], [address] IG% 0.400 Normal 0.0-0.9 [facility] Comment on above: Result Comment: IG% - Immature Granulocytes (promyelocytes, myelocytes and metamyelocytes) > 1% indicates that a LEFT SHIFT is Present. Performed By: #### L 500.2500, L503.7505 #### [facility] [address] [place], [address] Lymphocytes/100 WBC (Bld) 26.2 % Normal 19-41 [facility] Comment on above: Performed By: #### L 500.2500, L503.7505 #### [facility] [address] [place], [address] Nucleated RBC (Bld) [#/Vol] 0 10*3/uL Normal 0-5 [facility] Comment on above: Performed By: #### L 500.2500, L503.7505 #### [facility] [address] [place], [address] RDW SD 60.0 fl High 35.1-43.9 [facility] Comment on above: Performed By: #### L 500.2500, L5.7505 #### [facility] [address] [place], [address] Carbon dioxide, total [Moles /volume] in Central venous bloodOrdered By: Amina Palomo on 03-18-2025 CO2 [Moles/Vol] 26.4 mmol/L 21.0-32.0 [facility] Chloride assayOrdered By: Marcelo Palomo on 03-18-2025 Chloride [Moles/Vol] 104 mmol/L 98-108 [facility] Comprehensive Metabolic Prof ilon 03-18-2025 Albumin [Mass/Vol] 3.8 g/dL Normal 3.4-4.8 [facility] Comment on above: Performed By: #### L 500.2500, L5.7505 #### [facility] [address] [place], [address] Albumin/Globulin [Mass ratio] 1.3 {ratio} Normal 0.9-2.4 [facility] Comment on above: Performed By: #### L 500.2500, L503.7505 #### [facility] [address] [place], [address] ALK PHOS 130 U/L High 35-104 [facility] Comment on above: Performed By: #### L 500.2500, L503.7505 #### [facility] [facility] [address] [place], [address] ALT [Catalytic activity/Vol] 29 U/L Normal <=34 [facility] Comment on above: Performed By: #### L 500.2500, L503.7505 #### [facility] [address] [place], [address] AST [Catalytic activity/Vol] 30 U/L Normal <=31 [facility] Comment on above: Performed By: #### L 500.2500, L503.7505 #### [facility] [address] [place], [address] Bilirubin [Mass/Vol] 0.35 mg/dL Normal 0.00-1.30 [facility] Comment on above: Performed By: #### L 500.2500, L503.7505 #### [facility] [address] [place], [address] BUN/CRE 20.9 RATIO High 10-20 [facility] Comment on above: Performed By: #### L 500.2500, L503.7505 #### [facility] [address] [place], [address] Calcium [Mass/Vol] 9.4 mg/dL Normal 7.6-11.0 [facility] Comment on above: Performed By: #### L 500.2500, L503.7505 #### [facility] [address] [place], [address] Chloride [Moles/Vol] 104 mmol/L Normal 98-108 [facility] Comment on above: Performed By: #### L 500.2500, L503.7505 #### [facility] [address] [place], [address] CO2 [Moles/Vol] 26.4 mmol/L Normal 21.0-32.0 [facility] Comment on above: Performed By: #### L 500.2500, L503.7505 #### [facility] [address] [place], [address] Creatinine [Mass/Vol] 0.88 mg/dL Normal 0.70-1.[address] [facility] Comment on above: Performed By: #### L 500.2500, L503.7505 #### [facility] [address] [place], [address] GAP 10 Normal 5-15 [facility] Comment on above: Performed By: #### L 500.2500, L503.7505 #### [facility] [address] [place], [address] GFR/1.73 sq M.predicted among non-blacks MDRD (S/P/Bld) [Vol rate/Area] 67 mL/min/{1.73_m2} Normal >60 [facility] Comment on above: Result Comment: mL/m in/1.73m2 CKD-EPI Creatinine Equation (2020) Performed By: #### L 500.2500, L503.7505 #### [facility] [address] [place], [address] Globulin (S) [Mass/Vol] 2.9 g/dL Normal 2.2-4.2 [facility] Comment on above: Performed By: #### L 500.2500, L503.7505 #### [facility] [address] [place], [address] Glucose [Mass/Vol] 122 mg/dL High 70-99 [facility] Comment on above: Performed By: #### L 500.2500, L503.7505 #### [facility] [address] [place], [address] Potassium [Moles/Vol] 4.6 mmol/L Normal 3.3-5.[address] [facility] Comment on above: Performed By: #### L 500.2500, L503.7505 #### [facility] [address] [place], [address] Sodium [Moles/Vol] 140 mmol/L Normal 133-145 [facility] Comment on above: Performed By: #### L 500.2500, L503.7505 #### [facility] [address] [place], [address] T PROT 6.6 g/dL Normal 5.9-8.4 [facility] Comment on above: Performed By: #### L 500.2500, L503.7505 #### [facility] [address] [place], [address] Urea nitrogen [Mass/Vol] 18 mg/dL Normal 4-19 [facility] Comment on above: Performed By: #### L 500.2500, L503.7505 #### [facility] [address] [place], [address] Eosinophil percentageOrdered By: Amina Palomo on 03-18-2025 Eosinophils/100 WBC (Bld) 7.2 % High 0-5 [facility] Comment on above: Performed By: #### L 500.2500, L503.7505 #### [facility] [address] [place], [address] Erythrocyte distribution wid th ratioOrdered By: Amina Palomo on 03-18-2025 Erythrocyte distribution width (RBC) [Ratio] 16.8 % High 11.6-14.6 [facility] Comment on above: Performed By: #### L 500.2500, L503.7505 #### [facility] [address] [place], [address] Erythrocyte distribution wid th standard deviationOrdered By: Amina Palomo on 03-18-2025 Erythrocyte distribution width (RBC) [Ratio] 60.0 fl High 35.1-43.9 [facility] Glomerular filtration rate ( GFR) estimation/1.73 sq m using serum, plasma, or whole bOrdered By: Amina Palomo on 03-18-2025 GFR/1.73 sq M.predicted among non-blacks MDRD (S/P/Bld) [Vol rate/Area] 67 mL/min/{1.73_m2} >60 [facility] Comment on above: mL/min/1.73m2 CKD-EP I Creatinine Equation (2020) Hemoglobin measurementOrdere d By: Amina Palomo on 03-18-2025 Hemoglobin (Bld) [Mass/Vol] 12.1 g/dL Normal 12.0-15.0 [facility] Comment on above: Performed By: #### L 500.2500, L503.7505 #### [facility] [address], [address] Immature granulocytes/100 WB C Auto (Bld)Ordered By: Amina Palomo on 03-18-2025 Immature granulocytes/100 WBC (Bld) 0.400 % 0.0-0.9 [facility] Comment on above: IG% - Immature Granu locytes (promyelocytes, myelocytes and metamyelocytes) > 1% indicates that a LEFT SHIFT is Present. Laboratory - Chemistry and C hemistry - challengeOrdered By: Amina Palomo on 03-18-2025 AST [Catalytic activity/Vol] 30 U/L <32 [facility] MCV (mean corpuscular volume ) determinationOrdered By: Amina Palomo on 03-18-2025 MCV (RBC) [Entitic vol] 98.0 fL Normal 81-99 [facility] Comment on above: Performed By: #### L 500.2500, L503.7505 #### [facility] [address] [place], [address] Mean corpuscular hemoglobin (MCH) determinationOrdered By: Amina Palomo on 03-18-2025 MCH (RBC) [Entitic mass] 30.0 pg Normal 27.0-32.0 [facility] Comment on above: Performed By: #### L 500.2500, L503.7505 #### [facility] [address] [place], [address] Mean corpuscular hemoglobin concentration (MCHC) determinationOrdered By: Amina Palomo on 03-18-2025 MCHC (RBC) [Mass/Vol] 30.6 g/dL Low 32-[address] [facility] Comment on above: Performed By: #### L 500.2500, L503.7505 #### [facility] [address] [place], [address] Mean platelet volume determi nationOrdered By: Amina Palomo on 03-18-2025 Platelet mean volume (Bld) [Entitic vol] 10.6 fL Normal 6.2-12.0 [facility] Comment on above: Performed By: #### L 500.2500, L503.7505 #### [facility] [address] [place], [address] Monocyte percentageOrdered B y: Amina Palomo on 03-18-2025 Monocytes/100 WBC (Bld) 4.9 % Normal 0-10 [facility] Comment on above: Performed By: #### L 500.2500, L503.7505 #### [facility] [address] [place], [address] Neutrophil percentageOrdered By: Amina Palomo on 03-18-2025 Neutrophils/100 WBC (Bld) 60.3 % Normal 47-70 [facility] Comment on above: Performed By: #### L 500.2500, L503.7505 #### [facility] [address] [place], [address] Nucleated red blood cell per centageOrdered By: Amina Palomo on 03-18-2025 Nucleated RBC/100 WBC (Bld) [Ratio] 0 % 0-5 [facility] Platelet countOrdered By: Marcelo Palomo on 03-18-2025 Platelets (Bld) [#/Vol] 285 10*3/uL Normal 150-450 [facility] Comment on above: Performed By: #### L 500.2500, L503.7505 #### [facility] [address] [place], [address] Potassium measurement (mass/ volume)Ordered By: Amina Palomo on 03-18-2025 Potassium (Unsp spec) [Mass/Vol] 4.6 mmol/L 3.3-5.1 [facility] Serum creatinine measurement (mass/volume)Ordered By: Amina Palomo on 03-18-2025 Creatinine [Mass/Vol] 0.88 mg/dL 0.70-1.[address] [facility] Serum globulin measurementOr dered By: Amina Palomo on 03-18-2025 Globulin (S) [Mass/Vol] 2.9 g/dL 2.2-4.2 [facility] Serum glucose measurement (m ass/volume)Ordered By: Amina Palomo on 03-18-2025 Glucose [Mass/Vol] 122 mg/dL High 70-99 [facility] Serum or plasma alanine duckworth otransferase (ALT) measurementOrdered By: Amina Palomo on 03-18-2025 ALT [Catalytic activity/Vol] 29 U/L <35 [facility] Serum or plasma albumin luis enrique urement (mass/volume)Ordered By: Amina Palomo on 03-18-2025 Albumin [Mass/Vol] 3.8 g/dL 3.4-4.8 [facility] Serum or plasma albumin/glob ulin mass ratioOrdered By: Amina Palomo on 03-18-2025 Albumin/Globulin [Mass ratio] 1.3 {ratio} 0.9-2.4 [facility] Serum or plasma alkaline carole sphatase measurementOrdered By: Amina Palomo on 03-18-2025 ALP [Catalytic activity/Vol] 130 U/L High 35-104 [facility] Serum or plasma calcium luis enrique urement (mass/volume)Ordered By: Amina Palmoo on 03-18-2025 Calcium [Mass/Vol] 9.4 mg/dL 7.6-11.0 [facility] Serum or plasma urea nitroge n measurement (mass/volume)Ordered By: Amina Palomo on 03-18-2025 Urea nitrogen [Mass/Vol] 18 mg/dL 4-19 [facility] Sodium levelOrdered By: Annabella Palomo on 03-18-2025 Sodium [Moles/Vol] 140 mmol/L 133-145 [facility] Total proteinOrdered By: Dale Palomo on 03-18-2025 Protein [Mass/Vol] 6.6 g/dL 5.9-8.4 [facility] White blood cell (WBC) count Ordered By: Amina Palomo on 03-18-2025 WBC (Bld) [#/Vol] 8.0 10*3/uL Normal 4.4-11.0 [facility] Comment on above: Performed By: #### L 500.2500, L503.7505 #### [facility] [address] [place], [address] Chest PA and Lateralon 02-16 Chest PA and Lateral [facility] [address] [place] [address] Chest PA and Lateral MR#: [id number] Acct: [id number] Name: SEVERIANO LEE Rep #: [id number] : 1945 F 79 From: Marciano Yee MD PCP: Dr. Marciano Anaya DO Status: REG CLI Study: Chest PA and Lateral Date of Exam: 02/16/25 Exam# [id number] Ordering Dr: Marciano Anaya DO PROCEDURE: CHEST PA AND LATERAL 02/16/2025 REASON FOR EXAM: PERSISTENT COUGH, COPD TECHNIQUE: Frontal and lateral views of the chest. COMPARISON: None FINDINGS: Heart: Unremarkable. Mediastinum: Atherosclerosis. Lungs/pleura: Slightly elevated LEFT hemidiaphragm. Minimal platelike likely atelectasis/scarrin g in the LEFT lung base. No pleural effusion or visible pneumothorax. Bones: Demineralization. Multilevel spondylosis. Reverse geometry bilateral shoulder arthroplasty, not well evaluated. Lines and support devices: None. Other: None. RAD/Chest PA and Lateral IMPRESSION: 1. No visible acute cardiopulmonary findings. If unexplained symptoms persist, consider CT. 2. Additional description as above. Reading Location: [id number] CC: Dr. Marciano Anaya DO Care Transition Mgr: Signed Normal [facility] Absolute lymphocyte countOrd ered By: Amina Palomo on 12-24-2024 Lymphocytes Auto (Unsp spec) [#/Vol] 1.71 10*3/uL 0.83-4.51 [facility] Absolute neutrophil countOrd ered By: Amina Palomo on 12-24-2024 Neutrophils (Bld) [#/Vol] 6.9 10*3/uL 2.0-7.7 [facility] Albumin to globulin ratioOrd ered By: Amina Palomo on 12-24-2024 Albumin/Globulin [Mass ratio] 0.8 {ratio} Low 0.9-2.4 [facility] Automated lymphocyte count a s percentage of total leukocytesOrdered By: Amina Palomo on 12-24-2024 Lymphocytes/100 WBC Auto (Unsp spec) 16.7 % Low 19-41 [facility] Basophil percentageOrdered B y: Amina Palomo on 12-24-2024 Basophils/100 WBC (Bld) 0.9 % 0-1 [facility] Bilirubin, totalOrdered By: Amina Palomo on 12-24-2024 Bilirubin [Mass/Vol] 0.40 mg/dL 0.20-1.00 [facility] Comment on above: For patients on eltr ombopag therapy, use of [address] TBIL is not recommended. Blood urea nitrogen (BUN)/cr eatinine ratioOrdered By: Amina Palomo on 12-24-2024 Urea nitrogen/Creatinine [Mass ratio] 21.0 mg/mg High 10-20 [facility] CBC W/Diff, Automatedon 12-11 Absolute Lymph 1.71 X10 3/uL Normal 0.83-4.51 [facility] Comment on above: Performed By: #### L 500.2500, L503.7505 #### [facility] [address] [place], [address] Absolute Neut 6.9 X10 3/uL Normal 2.0-7.7 [facility] Comment on above: Performed By: #### L 500.2500, L503.7505 #### [facility] [address] [place], [address] Basophils/100 WBC (Bld) 0.9 % Normal 0-1 [facility] Comment on above: Performed By: #### L 500.2500, L503.7505 #### [facility] [address] [place], [address] Eosinophils/100 WBC (Bld) 8.4 % High 0-5 [facility] Comment on above: Performed By: #### L 500.2500, L503.7505 #### [facility] [address] [place], [address] Erythrocyte distribution width (RBC) [Ratio] 15.7 % High 11.6-14.6 [facility] Comment on above: Performed By: #### L 500.2500, L503.7505 #### [facility] [address] [place], [address] Hematocrit (Bld) [Volume fraction] 39.4 % Normal 37-47 [facility] Comment on above: Performed By: #### L 500.2500, L503.7505 #### [facility] [address] [place], [address] Hemoglobin (Bld) [Mass/Vol] 12.1 g/dL Normal 12.0-15.0 [facility] Comment on above: Performed By: #### L 500.2500, L503.7505 #### [facility] [address] [place], [address] IG% 0.700 Normal 0.0-0.9 [facility] Comment on above: Result Comment: IG% - Immature Granulocytes (promyelocytes, myelocytes and metamyelocytes) > 1% indicates that a LEFT SHIFT is Present. Performed By: #### L 500.2500, L503.7505 #### [facility] [address] [place], [address] Lymphocytes/100 WBC (Bld) 16.7 % Low 19-41 [facility] Comment on above: Performed By: #### L 500.2500, L503.7505 #### [facility] [address] [place], [address] MCH (RBC) [Entitic mass] 29.7 pg Normal 27.0-32.0 [facility] Comment on above: Performed By: #### L 500.2500, L503.7505 #### [facility] [address] [place], [address] MCHC (RBC) [Mass/Vol] 30.7 g/dL Low 32-[address] [facility] Comment on above: Performed By: #### L 500.2500, L503.7505 #### [facility] [address] [place], [address] MCV (RBC) [Entitic vol] 96.8 fL Normal 81-99 [facility] Comment on above: Performed By: #### L 500.2500, L503.7505 #### [facility] [address] [place], [address] Monocytes/100 WBC (Bld) 6.0 % Normal 0-10 [facility] Comment on above: Performed By: #### L 500.2500, L503.7505 #### [facility] [address] [place], [address] Neutrophils/100 WBC (Bld) 67.3 % Normal 47-70 [facility] Comment on above: Performed By: #### L 500.2500, L503.7505 #### [facility] [address] [place], [address] Nucleated RBC (Bld) [#/Vol] 0 10*3/uL Normal 0-5 [facility] Comment on above: Performed By: #### L 500.2500, L503.7505 #### [facility] [address] [place], [address] Platelet mean volume (Bld) [Entitic vol] 10.7 fL Normal 6.2-12.0 [facility] Comment on above: Performed By: #### L 500.2500, L503.7505 #### [facility] [address] [place], [address] Platelets (Bld) [#/Vol] 335 10*3/uL Normal 150-450 [facility] Comment on above: Performed By: #### L 500.2500, L503.7505 #### [facility] [address] [place], [address] RBC (Bld) [#/Vol] 4.07 10*6/uL Low 4.2-5.4 [facility] Comment on above: Performed By: #### L 500.2500, L503.7505 #### [facility] [address] [place], [address] RDW SD 54.3 fl High 35.1-43.9 [facility] Comment on above: Performed By: #### L 500.2500, L503.7505 #### [facility] [address] [place], [address] WBC (Bld) [#/Vol] 10.3 10*3/uL Normal 4.4-11.0 [facility] Comment on above: Performed By: #### L 500.2500, L503.7505 #### [facility] [address] [place], [address] Carbon dioxide measurementOr dered By: Amina Palomo on 12-24-2024 CO2 [Moles/Vol] 26.0 mmol/L 21.0-32.0 [facility] Chloride measurementOrdered By: Amina Palomo on 12-24-2024 Chloride [Moles/Vol] 104 mmol/L 98-107 [facility] Comprehensive Metabolic Prof ilon 12-24-2024 Albumin [Mass/Vol] 3.0 g/dL Low 3.2-5.0 [facility] Comment on above: Performed By: #### L 500.2500, L503.7505 #### [facility] [address] [place], [address] Albumin/Globulin [Mass ratio] 0.8 {ratio} Low 0.9-2.4 [facility] Comment on above: Performed By: #### L 500.2500, L503.7505 #### [facility] [address] [place], [address] ALK P 128 U/L High 45-117 [facility] Comment on above: Performed By: #### L 500.2500, L503.7505 #### [facility] [address] [place], [address] ALT [Catalytic activity/Vol] 13 U/L Normal 13-56 [facility] Comment on above: Performed By: #### L 500.2500, L5.7505 #### [facility] [address] [place], [address] AST [Catalytic activity/Vol] 18 U/L Normal 15-37 [facility] Comment on above: Performed By: #### L 500.2500, L503.7505 #### [facility] [address] [place], [address] Bilirubin [Mass/Vol] 0.40 mg/dL Normal 0.20-1.00 [facility] Comment on above: Result Comment: For patients on eltrombopag therapy, use of [address] TBIL is not recommended. Performed By: #### L 500.2500, L503.7505 #### [facility] [address] [place], [address] BUN/CRE 21.0 RATIO High 10-20 [facility] Comment on above: Performed By: #### L 500.2500, L503.7505 #### [facility] [address] [place], [address] CA,Total 9.5 mg/dL Normal 8.5-10.1 [facility] Comment on above: Performed By: #### L 500.2500, L503.7505 #### [facility] [address] [place], [address] Chloride [Moles/Vol] 104 mmol/L Normal 98-107 [facility] Comment on above: Performed By: #### L 500.2500, L503.7505 #### [facility] [address] [place], [address] CO2 [Moles/Vol] 26.0 mmol/L Normal 21.0-32.0 [facility] Comment on above: Performed By: #### L 500.2500, L503.7505 #### [facility] [address] [place], [address] Creatinine [Mass/Vol] 1.05 mg/dL High 0.55-1.[address] [facility] Comment on above: Result Comment: The validity of the calculated GFR GFRAA in patients over 70 years has not been determined. Clinical correlation is essential. Performed By: #### L 500.2500, L503.7505 #### [facility] [address] [place], [address] EST GFR - AA 65 mL/min Normal >60 [facility] Comment on above: Result Comment: Afri can Lao GFR Calc Performed By: #### L 500.2500, L503.7505 #### [facility] [address] [place], [address] GAP 8 Normal 5-15 [facility] Comment on above: Performed By: #### L 500.2500, L503.7505 #### [facility] [address] [place], [address] GFR/1.73 sq M.predicted among non-blacks MDRD (S/P/Bld) [Vol rate/Area] 54 mL/min/{1.73_m2} Low >60 [facility] Comment on above: Result Comment: Non- GFR Calc Performed By: #### L 500.2500, L503.7505 #### [facility] [address] [place], [address] Globulin (S) [Mass/Vol] 3.9 g/dL Normal 2.2-4.2 [facility] Comment on above: Performed By: #### L 500.2500, L503.7505 #### [facility] [address] [place], [address] Glucose [Mass/Vol] 87 mg/dL Normal 74-106 [facility] Comment on above: Performed By: #### L 500.2500, L503.7505 #### [facility] [address] [place], [address] Potassium [Moles/Vol] 4.4 mmol/L Normal 3.5-5.[address] [facility] Comment on above: Performed By: #### L 500.2500, L503.7505 #### [facility] [address] [place], [address] Sodium [Moles/Vol] 138 mmol/L Normal 136-145 [facility] Comment on above: Performed By: #### L 500.2500, L503.7505 #### [facility] [address] [place], [address] T PROT 6.9 g/dL Normal 6.4-8.2 [facility] Comment on above: Performed By: #### L 500.2500, L503.7505 #### [facility] [address] [place], [address] Urea nitrogen [Mass/Vol] 22 mg/dL High 7-18 [facility] Comment on above: Performed By: #### L 500.2500, L503.7505 #### [facility] [address] [place], [address] Eosinophil percentageOrdered By: Amina Palomo on 12-24-2024 Eosinophils/100 WBC (Bld) 8.4 % High 0-5 [facility] Erythrocyte distribution wid th (RBC) [Ratio]Ordered By: Amina Palomo on 12-24-2024 Erythrocyte distribution width (RBC) [Entitic vol] 54.3 fL High 35.1-43.9 [facility] Erythrocyte distribution wid th ratioOrdered By: Amina Palomo on 12-24-2024 Erythrocyte distribution width (RBC) [Ratio] 15.7 % High 11.6-14.6 [facility] Erythrocyte distribution wid th standard deviationOrdered By: Amina Palomo on 12-24-2024 Erythrocyte distribution width (RBC) [Ratio] 54.3 fl High 35.1-43.9 [facility] Estimated glomerular filtrat ion rate (GFR) AmericanOrdered By: Amina Palomo on 12-24-2024 Estimated GFR (MDRD) Amer 65 mL/min >60 [facility] Comment on above: GFR Calc Glomerular filtration rate ( GFR) estimationOrdered By: Amina Palomo on 12-24-2024 Estimated GFR (MDRD) Non-Af Amer 54 mL/min Low >60 [facility] Comment on above: Non- GFR Calc GFR/1.73 sq M.predicted among non-blacks MDRD (S/P/Bld) [Vol rate/Area] 54 mL/min/{1.73_m2} Low >60 [facility] Comment on above: Non- GFR Calc Glucose measurementOrdered B y: Amina Palomo on 12-24-2024 Glucose [Mass/Vol] 87 mg/dL 74-106 [facility] Hematocrit Auto (Bld) [Volum e fraction]Ordered By: Amina Palomo on 12-24-2024 Hematocrit (Bld) [Volume fraction] 39.4 % 37-47 [facility] Hemoglobin measurementOrdere d By: Amina Palomo on 12-24-2024 Hemoglobin (Bld) [Mass/Vol] 12.1 g/dL 12.0-15.0 [facility] Immature granulocytes/100 WB C Auto (Bld)Ordered By: Amina Palomo on 12-24-2024 Immature granulocytes/100 WBC (Bld) 0.700 % 0.0-0.9 [facility] Comment on above: IG% - Immature Granu locytes (promyelocytes, myelocytes and metamyelocytes) > 1% indicates that a LEFT SHIFT is Present. Laboratory - Chemistry and C hemistry - challengeOrdered By: Amina Palomo on 12-24-2024 AST [Catalytic activity/Vol] 18 U/L 15-37 [facility] Lymphocytes Auto (Unsp spec) [#/Vol]Ordered By: Amina Palomo on 12-24-2024 Lymphocytes (Bld) [#/Vol] 1.71 10*3/uL 0.83-4.5 1 [facility] Lymphocytes/100 WBC Auto (Un sp spec)Ordered By: Amina Palomo on 12-24-2024 Lymphocytes/100 WBC (Bld) 16.7 % Low 19-41 [facility] MCV (mean corpuscular volume ) determinationOrdered By: Amina Palomo on 12-24-2024 MCV (RBC) [Entitic vol] 96.8 fL 81-99 [facility] Mean corpuscular hemoglobin (MCH) determinationOrdered By: Amina Palomo on 12-24-2024 MCH (RBC) [Entitic mass] 29.7 pg 27.0-32.0 [facility] Mean corpuscular hemoglobin concentration (MCHC) determinationOrdered By: Amina Palomo on 12-24-2024 MCHC (RBC) [Mass/Vol] 30.7 g/dL Low 32-[address] [facility] Mean platelet volume determi nationOrdered By: Amina Palomo on 12-24-2024 Platelet mean volume (Bld) [Entitic vol] 10.7 fL 6.2-12.0 [facility] Monocyte percentageOrdered B y: Amina Palomo on 12-24-2024 Monocytes/100 WBC (Bld) 6.0 % 0-10 [facility] Neutrophil percentageOrdered By: Amina Palomo on 12-24-2024 Neutrophils/100 WBC (Bld) 67.3 % 47-70 [facility] Nucleated red blood cell per centageOrdered By: Amina Palomo on 12-24-2024 Nucleated RBC/100 WBC (Bld) [Ratio] 0 % 0-5 [facility] Platelet countOrdered By: Marcelo Palomo on 12-24-2024 Platelets (Bld) [#/Vol] 335 10*3/uL 150-450 [facility] Potassium measurementOrdered By: Amina Palomo on 12-24-2024 Potassium [Moles/Vol] 4.4 mmol/L 3.5-5.[address] [facility] RBC Auto (Bld) [#/Vol]Ordere d By: Amina Palomo on 12-24-2024 RBC (Bld) [#/Vol] 4.07 10*6/uL Low 4.2-5.4 [facility] Serum anion gap measurementO rdered By: Amina Palomo on 12-24-2024 Anion gap [Moles/Vol] 8 mmol/L 5-[address] [facility] Serum globulin measurementOr dered By: Amina Palomo on 12-24-2024 Globulin (S) [Mass/Vol] 3.9 g/dL 2.2-4.2 [facility] Serum or plasma alanine duckworth otransferase (ALT) measurementOrdered By: Amina Palomo on 12-24-2024 ALT [Catalytic activity/Vol] 13 U/L 13-56 [facility] Serum or plasma albumin luis enrique urement (mass/volume)Ordered By: Amina Palomo on 12-24-2024 Albumin [Mass/Vol] 3.0 g/dL Low 3.2-5.0 [facility] Serum or plasma alkaline carole sphatase measurementOrdered By: Amina Palomo on 12-24-2024 ALP [Catalytic activity/Vol] 128 U/L High 45-117 [facility] Serum or plasma calcium luis enrique urement (mass/volume)Ordered By: Amina Palomo on 12-24-2024 Calcium [Mass/Vol] 9.5 mg/dL 8.5-10.1 [facility] Serum or plasma creatinine m easurement (mass/volume)Ordered By: Amina Palomo on 12-24-2024 Creatinine [Mass/Vol] 1.05 mg/dL High 0.55-1.[address] [facility] Comment on above: The validity of the calculated GFR & GFRAA in patients over 70 years has not been determined. Clinical correlation is essential. Serum or plasma urea nitroge n measurement (mass/volume)Ordered By: Amina Palomo on 12-24-2024 Urea nitrogen [Mass/Vol] 22 mg/dL High 7-18 [facility] Sodium levelOrdered By: Annabella Palomo on 12-24-2024 Sodium [Moles/Vol] 138 mmol/L 136-145 [facility] Total proteinOrdered By: Dale Palomo on 12-24-2024 Protein [Mass/Vol] 6.9 g/dL 6.4-8.2 [facility] White blood cell (WBC) count Ordered By: Amina Palomo on 12-24-2024 WBC (Bld) [#/Vol] 10.3 10*3/uL 4.4-11.0 [facility] 18-US-Ewxlqsp DOrdered By: Malcolm Anaya on 10-25-2024 Vitamin D 25-Hydroxy 30.7 ng/mL [facility] Comment on above: Vitamin D 25(OH) Sta tus Range Deficiency <20 ng/mL (50nmol/L) Insufficiency 20 - 30 ng/mL (50 - 75 nmol/L) Sufficiency 30 - 100 ng/mL (75 - 250 nmol/L) Toxicity >100 ng/mL (>250 nmol/L) Direct serum free thyroxine (FT4) measurementOrdered By: Marciano Anaya on 10-25-2024 Free T4 [Mass/Vol] 1.17 ng/dL 0.76-1.46 [facility] Hemoglobin A1con 10-25-2024 HbA1c (Bld) [Mass fraction] 5.6 % Normal 3.8-5.6 [facility] Comment on above: Result Comment: Norm al < 5.7 % Prediabetic 5.7 - 6.4 % Diabetic >or= 6.5 % Please note range changes. Performed By: #### L 506.1000, L506.0400, L501.9520, L501.9985, L500.4100 #### [facility] [address] [place], [address] Hemoglobin A1c percentageOrd ered By: Marciano Anaya on 12-16-2024 HbA1c (Bld) [Mass fraction] 5.6 % 3.8-5.6 [facility] Comment on above: Normal < 5.7 % Predi abetic 5.7 - 6.4 % Diabetic >or= 6.5 % Please note range changes. High density lipoprotein (HD L) measurementOrdered By: Marciano Anaya on 10-25-2024 Cholesterol in HDL [Mass/Vol] 55 mg/dL >40 [facility] Comment on above: The drugs N-Acetylcy steine and Metamizole may falsely depress this assay. Reference Range HDL <40 mg/dL Low HDL Cholesterol HDL >or= 60 mg/dL High HDL Cholesterol Lipid Profileon 10-25-2024 Cholesterol [Mass/Vol] 161 mg/dL Normal 200 [facility] Comment on above: Result Comment: <200 mg/dL Desirable 200-240 mg/dL Borderline >240 mg/dL High Risk Performed By: #### L 500.2500, L503.7505 #### [facility] [address] [place], [address] Cholesterol in HDL [Mass/Vol] 55 mg/dL Normal [facility] Comment on above: Result Comment: The drugs N-Acetylcysteine and Metamizole may falsely depress this assay. Reference Range HDL <40 mg/dL Low HDL Cholesterol HDL >or= 60 mg/dL High HDL Cholesterol Performed By: #### L 500.2500, L503.7505 #### [facility] [address] [place], [address] Cholesterol in LDL [Mass/Vol] 74 mg/dL Normal 0-130 [facility] Comment on above: Performed By: #### L 500.2500, L503.7505 #### [facility] [address] [place], [address] Cholesterol in VLDL [Mass/Vol] 32 mg/dL Normal 5-40 [facility] Comment on above: Performed By: #### L 500.2500, L503.7505 #### [facility] [address] [place], [address] Triglyceride [Mass/Vol] 160 mg/dL Normal [facility] Comment on above: Result Comment: The drugs N-Acetylcysteine and Metamizole may falsely depress this assay. Serum Triglycerides Reference Interval Normal <150 mg/dL Borderline high 150 - 199 mg/dL High 200 - 499 mg/dL Very High > or = 500 mg/dL Performed By: #### L 500.2500, L503.7505 #### [facility] [address] [place], [address] Low density lipoprotein (LDL ) cholesterol measurementOrdered By: Marciano Anaya on 10-25-2024 Cholesterol in LDL [Mass/Vol] 74 mg/dL 0-130 [facility] Serum or plasma cholesterol measurement (mass/volume)Ordered By: Marciano Anaya on 10-25-2024 Cholesterol [Mass/Vol] 161 mg/dL <200 [facility] Comment on above: <200 mg/dL Desirable 200-240 mg/dL Borderline >240 mg/dL High Risk T4 Free Directon 10-25-2024 T4 FREE DIRECT 1.17 ng/dL Normal 0.76-1.46 [facility] Comment on above: Performed By: #### L 500.2500, L503.8585 #### [facility] [address] [place], [address] TSH QnOrdered By: Marciano grimaldo on 10-25-2024 Thyroid Stimulating Hormone (TSH) 1.190 uIU/mL 0.358-3.740 [facility] Thyroid Stim Hormone (TSH)on 10-25-2024 TSH 1.190 uIU/mL Normal 0.358-3.740 [facility] Comment on above: Performed By: #### L 500.2500, [id number] #### [facility] [address] [place], [address] Triglycerides measurementOrd ered By: Marciano Anaya on 10-25-2024 Triglyceride [Mass/Vol] 160 mg/dL <199 [facility] Comment on above: The drugs N-Acetylcy steine and Metamizole may falsely depress this assay.Serum Triglycerides Reference Interval Normal <150 mg/dL Borderline high 150 - 199 mg/dL High 200 - 499 mg/dL Very High > or = 500 mg/dL Very low density lipoprotein (VLDL) cholesterol measurementOrdered By: Marciano Anaya on 10-25-2024 VLDL Cholesterol 32 mg/dL 5-40 [facility] Vitamin D,25 Hydroxyon 10-25 Vitamin D 25-OH 30.7 ng/mL Normal [facility] Comment on above: Result Comment: Sunita min D 25(OH) Status Range Deficiency <20 ng/mL (50nmol/L) Insufficiency 20 - 30 ng/mL (50 - 75 nmol/L) Sufficiency 30 - 100 ng/mL (75 - 250 nmol/L) Toxicity >100 ng/mL (>250 nmol/L) Performed By: #### L 500.2500, L503.7505 #### [facility] [address] [place], [address] CBC W/Diff, Automatedon 09-11 Absolute Lymph 3.03 X10 3/uL Normal 0.83-4.51 [facility] Comment on above: Performed By: #### L 500.4050, L100.0100 #### [facility] [address] [place], [address] Absolute Neut 4.6 X10 3/uL Normal 2.0-7.7 [facility] Comment on above: Performed By: #### L 500.4050, L100.0100 #### [facility] [address] [place], [address] Basophils/100 WBC (Bld) 0.9 % Normal 0-1 [facility] Comment on above: Performed By: #### L 500.4050, L100.0100 #### [facility] [address] [place], [address] Eosinophils/100 WBC (Bld) 6.2 % High 0-5 [facility] Comment on above: Performed By: #### L 500.4050, L100.0100 #### [facility] [address] [place], [address] Erythrocyte distribution width (RBC) [Ratio] 15.8 % High 11.6-14.6 [facility] Comment on above: Performed By: #### L 500.4050, L100.0100 #### [facility] [address] [place], [address] Hematocrit (Bld) [Volume fraction] 41.8 % Normal 37-47 [facility] Comment on above: Performed By: #### L 500.4050, L100.0100 #### [facility] [address] [place], [address] Hemoglobin (Bld) [Mass/Vol] 12.6 g/dL Normal 12.0-15.0 [facility] Comment on above: Performed By: #### L 500.4050, L100.0100 #### [facility] [address] [place], [address] IG% 0.300 Normal 0.0-0.9 [facility] Comment on above: Result Comment: IG% - Immature Granulocytes (promyelocytes, myelocytes and metamyelocytes) > 1% indicates that a LEFT SHIFT is Present. Performed By: #### L 500.4050, L100.0100 #### [facility] [address] [place], [address] Lymphocytes/100 WBC (Bld) 35.3 % Normal 19-41 [facility] Comment on above: Performed By: #### L 500.4050, L100.0100 #### [facility] [address] [place], [address] MCH (RBC) [Entitic mass] 29.9 pg Normal 27.0-32.0 [facility] Comment on above: Performed By: #### L 500.4050, L100.0100 #### [facility] [address] [place], [address] MCHC (RBC) [Mass/Vol] 30.1 g/dL Low 32-[address] [facility] Comment on above: Performed By: #### L 500.4050, L100.0100 #### [facility] [address] [place], [address] MCV (RBC) [Entitic vol] 99.3 fL High 81-99 [facility] Comment on above: Performed By: #### L 500.4050, L100.0100 #### [facility] [address] [place], [address] Monocytes/100 WBC (Bld) 3.7 % Normal 0-10 [facility] Comment on above: Performed By: #### L 500.4050, L100.0100 #### [facility] [address] [place], [address] Neutrophils/100 WBC (Bld) 53.6 % Normal 47-70 [facility] Comment on above: Performed By: #### L 500.4050, L100.0100 #### [facility] [address] [place], [address] Nucleated RBC (Bld) [#/Vol] 0 10*3/uL Normal 0-5 [facility] Comment on above: Performed By: #### L 500.4050, L100.0100 #### [facility] [address] [place], [address] Platelet mean volume (Bld) [Entitic vol] 10.8 fL Normal 6.2-12.0 [facility] Comment on above: Performed By: #### L 500.4050, L100.0100 #### [facility] [address] [place], [address] Platelets (Bld) [#/Vol] 288 10*3/uL Normal 150-450 [facility] Comment on above: Performed By: #### L 500.4050, L100.0100 #### [facility] [address] [place], [address] RBC (Bld) [#/Vol] 4.21 10*6/uL Normal 4.2-5.4 [facility] Comment on above: Performed By: #### L 500.4050, L100.0100 #### [facility] [address] [place], [address] RDW SD 56.7 fl High 35.1-43.9 [facility] Comment on above: Performed By: #### L 500.4050, L100.0100 #### [facility] [address] [place], [address] WBC (Bld) [#/Vol] 8.6 10*3/uL Normal 4.4-11.0 [facility] Comment on above: Performed By: #### L 500.4050, L100.0100 #### [facility] [address] [place], [address] [facility] 09-30-2024 Albumin [Mass/Vol] 3.4 g/dL Normal 3.2-5.0 [facility] Comment on above: Performed By: #### L 500.4050, L100.0100 #### [facility] [address] [place], [address] Albumin/Globulin [Mass ratio] 0.9 {ratio} Normal 0.9-2.4 [facility] Comment on above: Performed By: #### L 500.4050, L100.0100 #### [facility] [address] [place], [address] ALK P 120 U/L High 45-117 [facility] Comment on above: Performed By: #### L 500.4050, L100.0100 #### [facility] [address] [place], [address] ALT [Catalytic activity/Vol] 24 U/L Normal 13-56 [facility] Comment on above: Performed By: #### L 500.4050, L100.0100 #### [facility] [address] [place], [address] AST [Catalytic activity/Vol] 17 U/L Normal 15-37 [facility] Comment on above: Performed By: #### L 500.4050, L100.0100 #### [facility] [address] [place], [address] Bilirubin [Mass/Vol] 0.50 mg/dL Normal 0.20-1.00 [facility] Comment on above: Result Comment: For patients on eltrombopag therapy, use of [place] TBIL is not recommended. Performed By: #### L 500.4050, L100.0100 #### [facility] [address] [place], [address] BUN/CRE 19.0 RATIO Normal 10-20 [facility] Comment on above: Performed By: #### L 500.4050, L100.0100 #### [facility] [address] [place], [address] CA,Total 9.1 mg/dL Normal 8.5-10.1 [facility] Comment on above: Performed By: #### L 500.4050, L100.0100 #### [facility] [address] [place], [address] Chloride [Moles/Vol] 105 mmol/L Normal 98-107 [facility] Comment on above: Performed By: #### L 500.4050, L100.0100 #### [facility] [address] [place], [address] CO2 [Moles/Vol] 26.0 mmol/L Normal 21.0-32.0 [facility] Comment on above: Performed By: #### L 500.4050, L100.0100 #### [facility] [address] [place], [address] Creatinine [Mass/Vol] 1.05 mg/dL High 0.55-1.[address] [facility] Comment on above: Result Comment: The validity of the calculated GFR GFRAA in patients over 70 years has not been determined. Clinical correlation is essential. Performed By: #### L 500.4050, L100.0100 #### [facility] [address] [place], [address] EST GFR - AA 65 mL/min Normal >60 [facility] Comment on above: Result Comment: Afri can Lao GFR Calc Performed By: #### L 500.4050, L100.0100 #### [facility] [address] [place], [address] GAP 8 Normal 5-15 [facility] Comment on above: Performed By: #### L 500.4050, L100.0100 #### [facility] [address] [place], [address] GFR/1.73 sq M.predicted among non-blacks MDRD (S/P/Bld) [Vol rate/Area] 54 mL/min/{1.73_m2} Low >60 [facility] Comment on above: Result Comment: Non- GFR Calc Performed By: #### L 500.4050, L100.0100 #### [facility] [address] [place], [address] Globulin (S) [Mass/Vol] 3.8 g/dL Normal 2.2-4.2 [facility] Comment on above: Performed By: #### L 500.4050, L100.0100 #### [facility] [address] [place], [address] Glucose [Mass/Vol] 113 mg/dL High 74-106 [facility] Comment on above: Result Comment: Fast ing Glucose result from 100 to 125 mg/dL suggests IMPAIRED HOMEOSTASIS per A.D.A. criteria. Performed By: #### L 500.4050, L100.0100 #### [facility] [address] [place], [address] Potassium [Moles/Vol] 4.0 mmol/L Normal 3.5-5.[address] [facility] Comment on above: Performed By: #### L 500.4050, L100.0100 #### [facility] [address] [place], [address] Sodium [Moles/Vol] 138 mmol/L Normal 136-145 [facility] Comment on above: Performed By: #### L 500.4050, L100.0100 #### [facility] [address] [place], [address] T PROT 7.2 g/dL Normal 6.4-8.2 [facility] Comment on above: Performed By: #### L 500.4050, L100.0100 #### [facility] [address] [place], [address] Urea nitrogen [Mass/Vol] 20 mg/dL High 7-18 [facility] Comment on above: Performed By: #### L 500.4050, L100.0100 #### [facility] [address] [place], [address] Liveron 08-18-2024 Liver [facility] [address] [place] [address] Liver MR#: [id number] Acct: [id number] Name: SEVERIANO LEE Rep #: [id number] : 1945 F 78 From: Jag goldberg MD PCP: Dr. Marciano Anaya, DO Status: REG CLI Study: Liver Date of Exam: 08/18/24 Exam# [id number] Ordering Dr: Amina Palomo MD -[id number] STUDY: ABDOMINAL ULTRASOUND - RIGHT UPPER QUADRANT REASON FOR VISIT: Female, 78 years old ELEVATED LIVER ENZYMES TECHNIQUE: Ultrasound evaluation of the right upper quadrant was performed with real-time and static dalal-scale imaging. TECHNICAL QUALITY: Adequate. COMPARISON: None. FINDINGS: Liver: The liver is enlarged and measures 19.5 cm. There is normal echogenicity of the liver. The bile ducts are within normal limits. There is hepatic color flow. The direction of portal flow is hepatopetal. There is no demonstrated mass lesion. Gallbladder: Normal distended gallbladder. The gallbladder wall measures 1.3 mm. There is a negative sonographic Villalobos''s sign. There is no pericholecystic fluid. There are small echogenic structures within the gallbladder, consistent with multiple gallstones. Common Bile Duct (C.B.D.): The common bile duct measures 2.1 mm. Pancreas: Normal size of the head, body and tail of the pancreas. There is increased echogenicity of the pancreas. There is no demonstrated pancreatic mass or cyst. Right Kidney: Normal size of the right kidney. The right kidney measures 11.3 cm x 6.3 cm x 4 cm. Normal renal cortex. The right cortex measures 1 cm. 2 cysts are seen within the right kidney. The larger cyst measures 1.9 cm x 1.6 cm x 1.6 cm. There is no right hydronephrosis. US/Liver IMPRESSION: Hepatomegaly. Small gallstones. Electronically Signed: Jag Barajas MD at 12:18 EDT , CC: Dr. Marciano Anaya DO; Dr. Amina Palomo MD Care Transition Mgr: Signed Normal [facility] CBC W/Diff, Automatedon 09-2 Absolute Lymph 2.02 X10 3/uL Normal 0.83-4.51 [facility] Comment on above: Performed By: #### L 500.2500, L503.7505 #### [facility] [address] [place], [address] Absolute Neut 3.8 X10 3/uL Normal 2.0-7.7 [facility] Comment on above: Performed By: #### L 500.2500, L503.7505 #### [facility] [address] [place], [address] Basophils/100 WBC (Bld) 1.2 % High 0-1 [facility] Comment on above: Performed By: #### L 500.2500, L503.7505 #### [facility] [address] [place], [address] Eosinophils/100 WBC (Bld) 8.6 % High 0-5 [facility] Comment on above: Performed By: #### L 500.2500, L503.7505 #### [facility] [address] [place], [address] Erythrocyte distribution width (RBC) [Ratio] 15.3 % High 11.6-14.6 [facility] Comment on above: Performed By: #### L 500.2500, L503.7505 #### [facility] [address] [place], [address] Hematocrit (Bld) [Volume fraction] 41.5 % Normal 37-47 [facility] Comment on above: Performed By: #### L 500.2500, L503.7505 #### [facility] [address] [place], [address] Hemoglobin (Bld) [Mass/Vol] 12.6 g/dL Normal 12.0-15.0 [facility] Comment on above: Performed By: #### L 500.2500, L503.7505 #### [facility] [address] [place], [address] IG% 0.200 Normal 0.0-0.9 [facility] Comment on above: Result Comment: IG% - Immature Granulocytes (promyelocytes, myelocytes and metamyelocytes) > 1% indicates that a LEFT SHIFT is Present. Performed By: #### L 500.2500, L503.7505 #### [facility] [address] [place], [address] Lymphocytes/100 WBC (Bld) 30.5 % Normal 19-41 [facility] Comment on above: Performed By: #### L 500.2500, L503.7505 #### [facility] [address] [place], [address] MCH (RBC) [Entitic mass] 29.6 pg Normal 27.0-32.0 [facility] Comment on above: Performed By: #### L 500.2500, [id number] #### [facility] [address] [place], [address] MCHC (RBC) [Mass/Vol] 30.4 g/dL Low 32-[address] [facility] Comment on above: Performed By: #### L 500.2500, [id number] #### [facility] [address] [place], [address] MCV (RBC) [Entitic vol] 97.6 fL Normal 81-99 [facility] Comment on above: Performed By: #### L 500.2500, [id number] #### [facility] [address] [place], [address] Monocytes/100 WBC (Bld) 2.9 % Normal 0-10 [facility] Comment on above: Performed By: #### L 500.2500, [id number] #### [facility] [address] [place], [address] Neutrophils/100 WBC (Bld) 56.6 % Normal 47-70 [facility] Comment on above: Performed By: #### L 500.2500, [id number] #### [facility] [address] [place], [address] Nucleated RBC (Bld) [#/Vol] 0 10*3/uL Normal 0-5 [facility] Comment on above: Performed By: #### L 500.2500, L503.7505 #### [facility] [address] [place], [address] Platelet mean volume (Bld) [Entitic vol] 10.9 fL Normal 6.2-12.0 [facility] Comment on above: Performed By: #### L 500.2500, L503.7505 #### [facility] [address] [place], [address] Platelets (Bld) [#/Vol] 274 10*3/uL Normal 150-450 [facility] Comment on above: Performed By: #### L 500.2500, L503.7505 #### [facility] [address] [place], [address] RBC (Bld) [#/Vol] 4.25 10*6/uL Normal 4.2-5.4 [facility] Comment on above: Performed By: #### L 500.2500, L503.7505 #### [facility] [address] [place], [address] RDW SD 54.3 fl High 35.1-43.9 [facility] Comment on above: Performed By: #### L 500.2500, L503.7505 #### [facility] [address] [place], [address] WBC (Bld) [#/Vol] 6.6 10*3/uL Normal 4.4-11.0 [facility] Comment on above: Performed By: #### L 500.2500, L503.7505 #### [facility] [address] [place], [address] Comprehensive Metabolic Prof ilon 08-05-2024 Albumin [Mass/Vol] 3.4 g/dL Normal 3.2-5.0 [facility] Comment on above: Performed By: #### L 500.2500, L503.7505 #### [facility] [address] [place], [address] Albumin/Globulin [Mass ratio] 0.9 {ratio} Normal 0.9-2.4 [facility] Comment on above: Performed By: #### L 500.2500, L503.7505 #### [facility] [address] [place], [address] ALK P 137 U/L High 45-117 [facility] Comment on above: Performed By: #### L 500.2500, [id number] #### [facility] [address] [place], [address] ALT [Catalytic activity/Vol] 36 U/L Normal 13-56 [facility] Comment on above: Performed By: #### L 500.2500, L503.7505 #### [facility] [address] [place], [address] AST [Catalytic activity/Vol] 39 U/L High 15-37 [facility] Comment on above: Performed By: #### L 500.2500, L503.7505 #### [facility] [address] [place], [address] Bilirubin [Mass/Vol] 0.40 mg/dL Normal 0.20-1.00 [facility] Comment on above: Result Comment: For patients on eltrombopag therapy, use of [place] TBIL is not recommended. Performed By: #### L 500.2500, L503.7505 #### [facility] [address] [place], [address] BUN/CRE 15.6 RATIO Normal 10-20 [facility] Comment on above: Performed By: #### L 500.2500, L503.7505 #### [facility] [address] [place], [address] CA,Total 9.6 mg/dL Normal 8.5-10.1 [facility] Comment on above: Performed By: #### L 500.2500, [id number] #### [facility] [address] [place], [address] Chloride [Moles/Vol] 105 mmol/L Normal 98-107 [facility] Comment on above: Performed By: #### L 500.2500, [id number] #### [facility] [address] [place], [address] CO2 [Moles/Vol] 30.0 mmol/L Normal 21.0-32.0 [facility] Comment on above: Performed By: #### L 500.2500, [id number] #### [facility] [address] [place], [address] Creatinine [Mass/Vol] 0.96 mg/dL Normal 0.55-1.[address] [facility] Comment on above: Result Comment: The validity of the calculated GFR GFRAA in patients over 70 years has not been determined. Clinical correlation is essential. Performed By: #### L 500.2500, L503.7505 #### [facility] [address] [place], [address] EST GFR - AA 72 mL/min Normal >60 [facility] Comment on above: Result Comment: Afri can Lao GFR Calc Performed By: #### L 500.2500, L503.7505 #### [facility] [address] [place], [address] GAP 4 Low 5-15 [facility] Comment on above: Performed By: #### L 500.2500, L503.7505 #### [facility] [address] [place], [address] GFR/1.73 sq M.predicted among non-blacks MDRD (S/P/Bld) [Vol rate/Area] 60 mL/min/{1.73_m2} Normal >60 [facility] Comment on above: Result Comment: Non- GFR Calc Performed By: #### L 500.2500, [id number] #### [facility] [address] [place], [address] Globulin (S) [Mass/Vol] 3.8 g/dL Normal 2.2-4.2 [facility] Comment on above: Performed By: #### L 500.2500, [id number] #### [facility] [address] [place], [address] Glucose [Mass/Vol] 112 mg/dL High 74-106 [facility] Comment on above: Result Comment: Fast ing Glucose result from 100 to 125 mg/dL suggests IMPAIRED HOMEOSTASIS per A.D.A. criteria. Performed By: #### L 500.2500, L503.7505 #### [facility] [address] [place], [address] Potassium [Moles/Vol] 4.7 mmol/L Normal 3.5-5.[address] [facility] Comment on above: Performed By: #### L 500.2500, L503.7505 #### [facility] [address] [place], [address] Sodium [Moles/Vol] 138 mmol/L Normal 136-145 [facility] Comment on above: Performed By: #### L 500.2500, [id number] #### [facility] [address], [address] T PROT 7.2 g/dL Normal 6.4-8.2 [facility] Comment on above: Performed By: #### L 500.2500, L503.7505 #### [facility] [address] [place], [address] Urea nitrogen [Mass/Vol] 15 mg/dL Normal 7-18 [facility] Comment on above: Performed By: #### L 500.2500, [id number] #### [facility] [address] [place], [address] Absolute lymphocyte countOrd ered By: Amina Palomo on 03-19-2024 Lymphocytes Auto (Unsp spec) [#/Vol] 2.71 10*3/uL 0.83-4.51 [facility] Automated lymphocyte count a s percentage of total leukocytesOrdered By: Amina Palomo on 03-19-2024 Lymphocytes/100 WBC Auto (Unsp spec) 25.7 % 19-41 [facility] Basophil percentageOrdered B y: Amina Palomo on 03-19-2024 Basophils/100 WBC (Bld) 1.1 % 0-1 [facility] Bilirubin [Mass/Vol] 0.50 mg/dL 0.20-1.00 [facility] Comment on above: For patients on eltr ombopag therapy, use of [place] TBIL is not recommended. Chloride [Moles/Vol] 104 mmol/L 98-107 [facility] Eosinophils/100 WBC (Bld) 4.2 % 0-5 [facility] Glucose [Mass/Vol] 95 mg/dL 74-106 [facility] Hemoglobin (Bld) [Mass/Vol] 12.6 g/dL 12.0-15.0 [facility] Monocytes/100 WBC (Bld) 9.3 % 0-10 [facility] Neutrophils (Bld) [#/Vol] 6.2 10*3/uL 2.0-7.7 [facility] Neutrophils/100 WBC (Bld) 59.1 % 47-70 [facility] Potassium [Moles/Vol] 4.2 mmol/L 3.5-5.[address] [facility] Protein [Mass/Vol] 7.3 g/dL 6.4-8.2 [facility] Sodium [Moles/Vol] 138 mmol/L 136-145 [facility] WBC (Bld) [#/Vol] 10.5 10*3/uL 4.4-11.0 [facility] Determination of erythrocyte mean corpuscular volume (MCV)Ordered By: Amina Palomo on 03-19-2024 MCV (RBC) [Entitic vol] 101.0 fL 81-99 [facility] Erythrocyte distribution wid th ratioOrdered By: Amina Stacia on 03-19-2024 Erythrocyte distribution width (RBC) [Ratio] 15.4 % 11.6-14.6 [facility] Erythrocyte distribution wid th standard deviationOrdered By: [facility] St[facility] on 03-19-2024 Erythrocyte distribution width (RBC) [Entitic vol] 56.6 fL 35.1-43.9 [facility] Hematocrit Auto (Bld) [Volum e fraction]Ordered By: [facility] Stacia on 03-19-2024 Hematocrit (Bld) [Volume fraction] 41.1 % 37-47 [facility] Immature granulocytes/100 WB C Auto (Bld)Ordered By: [facility] Stacia on 03-19-2024 Immature granulocytes/100 WBC (Bld) 0.600 % 0.0-0.9 [facility] Comment on above: IG% - Immature Granu locytes (promyelocytes, myelocytes and metamyelocytes) > 1% indicates that a LEFT SHIFT is Present. Laboratory - Chemistry and C hemistry - challengeOrdered By: Amina Palomo on 03-19-2024 Albumin/Globulin [Mass ratio] 0.9 {ratio} 0.9-2.4 [facility] ALP [Catalytic activity/Vol] 114 U/L 45-117 [facility] ALT [Catalytic activity/Vol] 18 U/L 13-56 [facility] CO2 [Moles/Vol] 31.0 mmol/L 21.0-32.0 [facility] Globulin (S) [Mass/Vol] 3.8 g/dL 2.2-4.2 [facility] Urea nitrogen/Creatinine [Mass ratio] 19.3 mg/mg 10-20 [facility] Laboratory - Hematology and Cell countsOrdered By: Amina Palomo on 03-19-2024 MCH (RBC) [Entitic mass] 31.0 pg 27.0-32.0 [facility] MCHC (RBC) [Mass/Vol] 30.7 g/dL 32-[address] [facility] Nucleated RBC/100 WBC (Bld) [Ratio] 0 % 0-5 [facility] Platelet mean volume (Bld) [Entitic vol] 9.3 fL 6.2-12.0 [facility] Platelets (Bld) [#/Vol] 311 10*3/uL 150-450 [facility] No Panel InformationOrdered By: Amina Palomo on 03-19-2024 Estimated GFR (MDRD) Amer 70 mL/min >60 [facility] Comment on above: GFR Calc Estimated GFR (MDRD) Non-Af Amer 58 mL/min >60 [facility] Comment on above: Non- GFR Calc RBC Auto (Bld) [#/Vol]Ordere d By: Amina Palomo on 03-19-2024 RBC (Bld) [#/Vol] 4.07 10*6/uL 4.2-5.4 [facility] Serum or plasma calcium luis enrique urement (mass/volume)Ordered By: Amina Palomo on 03-19-2024 Calcium [Mass/Vol] 9.4 mg/dL 8.5-10.1 [facility] Serum or plasma creatinine m easurement (mass/volume)Ordered By: Amina Palomo on 03-19-2024 Creatinine [Mass/Vol] 0.98 mg/dL 0.55-1.[address] [facility] Comment on above: The validity of the calculated GFR & GFRAA in patients over 70 years has not been determined. Clinical correlation is essential. Serum or plasma urea nitroge n measurement (mass/volume)Ordered By: Amina Palomo on 03-19-2024 Urea nitrogen [Mass/Vol] 19 mg/dL 7-18 [facility] Thin prep Papanicolaou smear with manual screeningOrdered By: Amina Palomo on 03-19-2024 Thin prep Papanicolaou smear with manual screening 3.5 g/dL 3.2-5.0 [facility] Thin prep Papanicolaou smear with manual screening 15 U/L 15-37 [facility] Thin prep Papanicolaou smear with manual screening 3 5-15 [facility] Absolute lymphocyte countOrd ered By: [facility] on 03-[facility]24 Lymphocytes Auto (Unsp spec) [#/Vol] 2.07 10*3/uL 0.83-4.51 [facility] Automated lymphocyte count a s percentage of total leukocytesOrdered By: [facility] Stacia on 03-11-2024 Lymphocytes/100 WBC Auto (Unsp spec) 26.1 % 19-41 [facility] Basophil percentageOrdered B y: Amina Palomo on 03-11-2024 Basophils/100 WBC (Bld) 0.8 % 0-1 [facility] Bilirubin [Mass/Vol] 0.40 mg/dL 0.20-1.00 [facility] Comment on above: For patients on eltr ombopag therapy, use of [place] TBIL is not recommended. Chloride [Moles/Vol] 105 mmol/L 98-107 [facility] Eosinophils/100 WBC (Bld) 5.7 % 0-5 [facility] Glucose [Mass/Vol] 115 mg/dL 74-106 [facility] Comment on above: Fasting Glucose resu lt from 100 to 125 mg/dL suggests IMPAIRED HOMEOSTASIS per A.D.A. criteria. Hemoglobin (Bld) [Mass/Vol] 12.4 g/dL 12.0-15.0 [facility] Monocytes/100 WBC (Bld) 7.1 % 0-10 [facility] Neutrophils (Bld) [#/Vol] 4.8 10*3/uL 2.0-7.7 [facility] Neutrophils/100 WBC (Bld) 59.9 % 47-70 [facility] Potassium [Moles/Vol] 4.2 mmol/L 3.5-5.[address] [facility] Protein [Mass/Vol] 7.3 g/dL 6.4-8.2 [facility] Sodium [Moles/Vol] 137 mmol/L 136-145 [facility] WBC (Bld) [#/Vol] 7.9 10*3/uL 4.4-11.0 [facility] Determination of erythrocyte mean corpuscular volume (MCV)Ordered By: Amina Palomo on 03-11-2024 MCV (RBC) [Entitic vol] 100.8 fL 81-99 [facility] Erythrocyte distribution wid th ratioOrdered By: Amina Palomo on 03-11-2024 Erythrocyte distribution width (RBC) [Ratio] 15.3 % 11.6-14.6 [facility] Erythrocyte distribution wid th standard deviationOrdered By: Amina Palomo on 03-11-2024 Erythrocyte distribution width (RBC) [Entitic vol] 56.2 fL 35.1-43.9 [facility] Hematocrit Auto (Bld) [Volum e fraction]Ordered By: Amina Palomo on 03-11-2024 Hematocrit (Bld) [Volume fraction] 39.8 % 37-47 [facility] Immature granulocytes/100 WB C Auto (Bld)Ordered By: Amina Palomo on 03-11-2024 Immature granulocytes/100 WBC (Bld) 0.400 % 0.0-0.9 [facility] Comment on above: IG% - Immature Granu locytes (promyelocytes, myelocytes and metamyelocytes) > 1% indicates that a LEFT SHIFT is Present. Laboratory - Chemistry and C hemistry - challengeOrdered By: Amina Palomo on 03-11-2024 Albumin/Globulin [Mass ratio] 0.9 {ratio} 0.9-2.4 [facility] ALP [Catalytic activity/Vol] 124 U/L 45-117 [facility] ALT [Catalytic activity/Vol] 22 U/L 13-56 [facility] CO2 [Moles/Vol] 26.0 mmol/L 21.0-32.0 [facility] Globulin (S) [Mass/Vol] 3.9 g/dL 2.2-4.2 [facility] Urea nitrogen/Creatinine [Mass ratio] 15.5 mg/mg 10-20 [facility] - Hematology and Cell countsOrdered By: Amina Palomo on 03-11-2024 MCH (RBC) [Entitic mass] 31.4 pg 27.0-32.0 [facility] MCHC (RBC) [Mass/Vol] 31.2 g/dL 32-[address] [facility] Nucleated RBC/100 WBC (Bld) [Ratio] 0 % 0-5 [facility] Platelet mean volume (Bld) [Entitic vol] 10.0 fL 6.2-12.0 [facility] Platelets (Bld) [#/Vol] 287 10*3/uL 150-450 [facility] No Panel InformationOrdered By: Amina Palomo on 03-11-2024 Estimated GFR (MDRD) Amer 51 mL/min >60 [facility] Comment on above: GFR Calc Estimated GFR (MDRD) Non-Af Amer 43 mL/min >60 [facility] Comment on above: Non- GFR Calc RBC Auto (Bld) [#/Vol]Ordere d By: Amina Palomo on 03-11-2024 RBC (Bld) [#/Vol] 3.95 10*6/uL 4.2-5.4 [facility] Serum or plasma calcium luis enrique urement (mass/volume)Ordered By: Amina Palomo on 03-11-2024 Calcium [Mass/Vol] 9.6 mg/dL 8.5-10.1 [facility] Serum or plasma creatinine m easurement (mass/volume)Ordered By: Amina Palomo on 03-11-2024 Creatinine [Mass/Vol] 1.29 mg/dL 0.55-1.[address] [facility] Comment on above: The validity of the calculated GFR & GFRAA in patients over 70 years has not been determined. Clinical correlation is essential. Serum or plasma urea nitroge n measurement (mass/volume)Ordered By: Amina Palomo on 03-11-2024 Urea nitrogen [Mass/Vol] 20 mg/dL 7-18 [facility] Thin prep Papanicolaou smear with manual screeningOrdered By: Amina Palomo on 03-11-2024 Thin prep Papanicolaou smear with manual screening 3.4 g/dL 3.2-5.0 [facility] Thin prep Papanicolaou smear with manual screening 18 U/L 15-37 [facility] Thin prep Papanicolaou smear with manual screening 6 5-15 [facility] Absolute lymphocyte countOrd ered By: Amina Palomo on 01-06-2024 Lymphocytes Auto (Unsp spec) [#/Vol] 2.27 10*3/uL 0.83-4.51 [facility] Automated lymphocyte count a s percentage of total leukocytesOrdered By: Amina Palomo on 01-06-2024 Lymphocytes/100 WBC Auto (Unsp spec) 24.1 % 19-41 [facility] Basophil percentageOrdered B y: Amina Palomo on 01-06-2024 Basophils/100 WBC (Bld) 0.8 % 0-1 [facility] Bilirubin [Mass/Vol] 0.30 mg/dL 0.20-1.00 [facility] Comment on above: For patients on eltr ombopag therapy, use of [place] TBIL is not recommended. Chloride [Moles/Vol] 107 mmol/L 98-107 [facility] Eosinophils/100 WBC (Bld) 5.6 % 0-5 [facility] Glucose [Mass/Vol] 122 mg/dL 74-106 [facility] Comment on above: Fasting Glucose resu lt from 100 to 125 mg/dL suggests IMPAIRED HOMEOSTASIS per A.D.A. criteria. Hemoglobin (Bld) [Mass/Vol] 12.3 g/dL 12.0-15.0 [facility] Monocytes/100 WBC (Bld) 9.8 % 0-10 [facility] Neutrophils (Bld) [#/Vol] 5.6 10*3/uL 2.0-7.7 [facility] Neutrophils/100 WBC (Bld) 59.4 % 47-70 [facility] Potassium [Moles/Vol] 4.5 mmol/L 3.5-5.[address] [facility] Protein [Mass/Vol] 7.1 g/dL 6.4-8.2 [facility] Sodium [Moles/Vol] 140 mmol/L 136-145 [facility] WBC (Bld) [#/Vol] 9.4 10*3/uL 4.4-11.0 [facility] Determination of erythrocyte mean corpuscular volume (MCV)Ordered By: Amina Palomo on 01-06-2024 MCV (RBC) [Entitic vol] 102.3 fL 81-99 [facility] Erythrocyte distribution wid th ratioOrdered By: Amina Palomo on 01-06-2024 Erythrocyte distribution width (RBC) [Ratio] 16.3 % 11.6-14.6 [facility] Erythrocyte distribution wid th standard deviationOrdered By: Amina Palomo on 01-06-2024 Erythrocyte distribution width (RBC) [Entitic vol] 60.7 fL 35.1-43.9 [facility] Hematocrit Auto (Bld) [Volum e fraction]Ordered By: Amina Palomo on 01-06-2024 Hematocrit (Bld) [Volume fraction] 40.2 % 37-47 [facility] Immature granulocytes/100 WB C Auto (Bld)Ordered By: Aminashelia Palomo on 01-06-2024 Immature granulocytes/100 WBC (Bld) 0.300 % 0.0-0.9 [facility] Comment on above: IG% - Immature Granu locytes (promyelocytes, myelocytes and metamyelocytes) > 1% indicates that a LEFT SHIFT is Present. Laboratory - Chemistry and C hemistry - challengeOrdered By: Aim[facility]helia Palomo on 01-06-2024 Albumin/Globulin [Mass ratio] 1.0 {ratio} 0.9-2.4 [facility] ALP [Catalytic activity/Vol] 120 U/L 45-117 [facility] ALT [Catalytic activity/Vol] 23 U/L 13-56 [facility] CO2 [Moles/Vol] 28.0 mmol/L 21.0-32.0 [facility] Globulin (S) [Mass/Vol] 3.6 g/dL 2.2-4.2 [facility] Urea nitrogen/Creatinine [Mass ratio] 19.1 mg/mg 10-20 [facility] Laboratory - Hematology and Cell countsOrdered By: Amina Palomo on 01-06-2024 MCH (RBC) [Entitic mass] 31.3 pg 27.0-32.0 [facility] MCHC (RBC) [Mass/Vol] 30.6 g/dL 32-[address] [facility] Nucleated RBC/100 WBC (Bld) [Ratio] 0 % 0-5 [facility] Platelet mean volume (Bld) [Entitic vol] 10.2 fL 6.2-12.0 [facility] Platelets (Bld) [#/Vol] 265 10*3/uL 150-450 [facility] No Panel InformationOrdered By: Amina Palomo on 01-06-2024 Estimated GFR (MDRD) Amer 62 mL/min >60 [facility] Comment on above: GFR Calc Estimated GFR (MDRD) Non-Af Amer 51 mL/min >60 [facility] Comment on above: Non- GFR Calc RBC Auto (Bld) [#/Vol]Ordere d By: Amina Palomo on 01-06-2024 RBC (Bld) [#/Vol] 3.93 10*6/uL 4.2-5.4 [facility] Serum or plasma calcium luis enrique urement (mass/volume)Ordered By: Amina Palomo on 01-06-2024 Calcium [Mass/Vol] 9.6 mg/dL 8.5-10.1 [facility] Serum or plasma creatinine m easurement (mass/volume)Ordered By: Amina Palomo on 01-06-2024 Creatinine [Mass/Vol] 1.10 mg/dL 0.55-1.[address] [facility] Comment on above: The validity of the calculated GFR & GFRAA in patients over 70 years has not been determined. Clinical correlation is essential. Serum or plasma urea nitroge n measurement (mass/volume)Ordered By: Amina Palomo on 01-06-2024 Urea nitrogen [Mass/Vol] 21 mg/dL 7-18 [facility] Thin prep Papanicolaou smear with manual screeningOrdered By: Amina Palomo on 01-06-2024 Thin prep Papanicolaou smear with manual screening 3.5 g/dL 3.2-5.0 [facility] Thin prep Papanicolaou smear with manual screening 16 U/L 15-37 [facility] [facility] Papanicolaou smear with manual screening 5 5-15 [facility] Absolute lymphocyte countOrd ered By: Marciano Anaya on 10-10-2023 Lymphocytes Auto (Unsp spec) [#/Vol] 1.66 10*3/uL 0.83-4.51 [facility] Basophil percentageOrdered B y: Marciano Anaya on 10-10-2023 Basophils/100 WBC (Bld) 1.2 % 0-1 [facility] Bilirubin [Mass/Vol] 0.40 mg/dL 0.20-1.00 [facility] Comment on above: For patients on eltr ombopag therapy, use of [place] TBIL is not recommended. Chloride [Moles/Vol] 104 mmol/L 98-107 [facility] Cholesterol [Mass/Vol] 214 mg/dL <200 [facility] Comment on above: <200 mg/dL Desirable 200-240 mg/dL Borderline >240 mg/dL High Risk Eosinophils/100 WBC (Bld) 6.6 % 0-5 [facility] Glucose [Mass/Vol] 93 mg/dL 74-106 [facility] Neutrophils (Bld) [#/Vol] 4.2 10*3/uL 2.0-7.7 [facility] Neutrophils/100 WBC (Bld) 61.8 % 47-70 [facility] Potassium [Moles/Vol] 4.1 mmol/L 3.5-5.[address] [facility] Protein [Mass/Vol] 7.3 g/dL 6.4-8.2 [facility] Sodium [Moles/Vol] 138 mmol/L 136-145 [facility] Triglyceride [Mass/Vol] 184 mg/dL <199 [facility] Comment on above: The drugs N-Acetylcy steine and Metamizole may falsely depress this assay.Serum Triglycerides Reference Interval Normal <150 mg/dL Borderline high 150 - 199 mg/dL High 200 - 499 mg/dL Very High > or = 500 mg/dL WBC (Bld) [#/Vol] 6.8 10*3/uL 4.4-11.0 [facility] Blood erythrocytes count (nu mber/volume)Ordered By: Marciano Anaya on 10-10-2023 RBC (Bld) [#/Vol] 3.86 10*6/uL 4.2-5.4 [facility] Blood hemoglobin measurement (mass/volume)Ordered By: Marciano Anaya on 10-10-2023 Hemoglobin (Bld) [Mass/Vol] 12.1 g/dL 12.0-15.0 [facility] Blood lymphocytes/100 leukoc ytesOrdered By: Marciano Anaya on 10-10-2023 Lymphocytes/100 WBC (Bld) 24.4 % 19-41 [facility] Blood monocytes/100 leukocyt esOrdered By: Marciano Anaya on 10-10-2023 Monocytes/100 WBC (Bld) 5.7 % 0-10 [facility] Blood platelet mean volumeOr dered By: Marciano Anaya on 10-10-2023 Platelet mean volume (Bld) [Entitic vol] 10.1 fL 6.2-12.0 [facility] Determination of erythrocyte mean corpuscular volume (MCV)Ordered By: Marciano Anaya on 10-10-2023 MCV (RBC) [Entitic vol] 101.8 fL 81-99 [facility] Hematocrit Auto (Bld) [Volum e fraction]Ordered By: Marciano Anaya on 10-10-2023 Hematocrit (Bld) [Volume fraction] 39.3 % 37-47 [facility] Laboratory - Chemistry and C hemistry - challengeOrdered By: Marciano Anaya on 10-10-2023 ALP [Catalytic activity/Vol] 114 U/L 45-117 [facility] ALT [Catalytic activity/Vol] 29 U/L 13-56 [facility] CO2 [Moles/Vol] 26.0 mmol/L 21.0-32.0 [facility] Free T4 [Mass/Vol] 1.23 ng/dL 0.76-1.46 [facility] Globulin (S) [Mass/Vol] 3.8 g/dL 2.2-4.2 [facility] Urea nitrogen/Creatinine [Mass ratio] 22.8 mg/mg 10-20 [facility] Laboratory - Hematology and Cell countsOrdered By: Marciano Anaya on 10-10-2023 Erythrocyte distribution width (RBC) [Entitic vol] 55.7 fL 35.1-43.9 [facility] Erythrocyte distribution width (RBC) [Ratio] 15.0 % 11.6-14.6 [facility] Immature granulocytes/100 WBC (Bld) 0.300 % 0.0-0.9 [facility] Comment on above: IG% - Immature Granu locytes (promyelocytes, myelocytes and metamyelocytes) > 1% indicates that a LEFT SHIFT is Present. MCH (RBC) [Entitic mass] 31.3 pg 27.0-32.0 [facility] Nucleated RBC/100 WBC (Bld) [Ratio] 0 % 0-5 [facility] MCHC Auto (RBC) [Mass/Vol]Or dered By: Marciano Anaya on 10-10-2023 MCHC (RBC) [Mass/Vol] 30.8 g/dL 32-[address] [facility] No Panel InformationOrdered By: Marciano Anaya on 10-10-2023 Estimated GFR (MDRD) Amer 72 mL/min >60 [facility] Comment on above: GFR Calc Estimated GFR (MDRD) Non-Af Amer 59 mL/min >60 [facility] Comment on above: Non- GFR Calc Thyroid Stimulating Hormone (TSH) 4.02 uIU/mL 0.358-3.74 [facility] Platelets bldOrdered By: Alma Delia Anaya on 10-10-2023 Platelets (Bld) [#/Vol] 266 10*3/uL 150-450 [facility] Serum or plasma albumin luis enrique urement (mass/volume)Ordered By: Marciano Anaya on 10-10-2023 Albumin [Mass/Vol] 3.5 g/dL 3.2-5.0 [facility] Serum or plasma albumin/glob ulin mass ratioOrdered By: Marciano Anaya on 10-10-2023 Albumin/Globulin [Mass ratio] 0.9 {ratio} 0.9-2.4 [facility] Serum or plasma calcium luis enrique urement (mass/volume)Ordered By: Marciano Anaya on 10-10-2023 Calcium [Mass/Vol] 8.9 mg/dL 8.5-10.1 [facility] Serum or plasma cholesterol in HDL measurement (mass/volume)Ordered By: Marciano Anaya on 10-10-2023 Cholesterol in HDL [Mass/Vol] 55 mg/dL >40 [facility] Comment on above: The drugs N-Acetylcy steine and Metamizole may falsely depress this assay. Reference Range HDL <40 mg/dL Low HDL Cholesterol HDL >or= 60 mg/dL High HDL Cholesterol Serum or plasma cholesterol in VLDL measurement (mass/volume)Ordered By: Marciano Anaya on 10-10-2023 Cholesterol in VLDL [Mass/Vol] 37 mg/dL 5-40 [facility] Serum or plasma creatinine m easurement (mass/volume)Ordered By: Marciano Anaya on 10-10-2023 Creatinine [Mass/Vol] 0.96 mg/dL 0.55-1.[address] [facility] Comment on above: The validity of the calculated GFR & GFRAA in patients over 70 years has not been determined. Clinical correlation is essential. Serum or plasma low density lipoprotein (LDL) cholesterol measurement (mass/volume)Ordered By: Marciano Anaya on 10-10-2023 Cholesterol in LDL [Mass/Vol] 122 mg/dL 0-130 [facility] Serum or plasma urea nitroge n measurement (mass/volume)Ordered By: Marciano Anaya on 10-10-2023 Urea nitrogen [Mass/Vol] 22 mg/dL 7-18 [facility] Thin prep Papanicolaou smear with manual screeningOrdered By: Marciano Anaya on 10-10-2023 Thin prep Papanicolaou smear with manual screening 23 U/L 15-37 [facility] Thin prep Papanicolaou smear with manual screening 8 5-15 [facility] Whole blood hemoglobin A1c/t otal hemoglobin ratio (mass fraction)Ordered By: Marciano Anaya on 10-10-2023 HbA1c (Bld) [Mass fraction] 5.6 % 3.8-5.6 [facility] Comment on above: Normal < 5.7 % Predi abetic 5.7 - 6.4 % Diabetic >or= 6.5 % Please note range changes. Absolute lymphocyte countOrd ered By: Amina Palomo on 07-18-2023 Lymphocytes Auto (Unsp spec) [#/Vol] 1.91 10*3/uL 0.83-4.51 [facility] Basophil percentageOrdered B y: Amina Palomo on 07-18-2023 Basophils/100 WBC (Bld) 1.0 % 0-1 [facility] Bilirubin [Mass/Vol] 0.30 mg/dL 0.20-1.00 [facility] Comment on above: For patients on eltr ombopag therapy, use of [place] TBIL is not recommended. Chloride [Moles/Vol] 104 mmol/L 98-107 [facility] Eosinophils/100 WBC (Bld) 4.1 % 0-5 [facility] Glucose [Mass/Vol] 108 mg/dL 74-106 [facility] Comment on above: Fasting Glucose resu lt from 100 to 125 mg/dL suggests IMPAIRED HOMEOSTASIS per A.D.A. criteria. Neutrophils (Bld) [#/Vol] 5.7 10*3/uL 2.0-7.7 [facility] Neutrophils/100 WBC (Bld) 65.4 % 47-70 [facility] Potassium [Moles/Vol] 4.2 mmol/L 3.5-5.[address] [facility] Protein [Mass/Vol] 7.4 g/dL 6.4-8.2 [facility] Sodium [Moles/Vol] 137 mmol/L 136-145 [facility] WBC (Bld) [#/Vol] 8.7 10*3/uL 4.4-11.0 [facility] Blood erythrocytes count (nu mber/volume)Ordered By: Amina Palomo on 07-18-2023 RBC (Bld) [#/Vol] 3.87 10*6/uL 4.2-5.4 [facility] Blood hemoglobin measurement (mass/volume)Ordered By: Amina Palomo on 07-18-2023 Hemoglobin (Bld) [Mass/Vol] 12.2 g/dL 12.0-15.0 [facility] Blood lymphocytes/100 leukoc ytesOrdered By: Amina Palomo on 07-18-2023 Lymphocytes/100 WBC (Bld) 22.0 % 19-41 [facility] Blood monocytes/100 leukocyt esOrdered By: Amina Palomo on 07-18-2023 Monocytes/100 WBC (Bld) 6.9 % 0-10 [facility] Blood platelet mean volumeOr dered By: Amina Palomo on 07-18-2023 Platelet mean volume (Bld) [Entitic vol] 10.3 fL 6.2-12.0 [facility] Determination of erythrocyte mean corpuscular volume (MCV)Ordered By: Amina Palomo on 07-18-2023 MCV (RBC) [Entitic vol] 102.8 fL 81-99 [facility] Hematocrit Auto (Bld) [Volum e fraction]Ordered By: Amina Palomo on 07-18-2023 Hematocrit (Bld) [Volume fraction] 39.8 % 37-47 [facility] Laboratory - Chemistry and C hemistry - challengeOrdered By: Amina Palomo on 07-18-2023 ALP [Catalytic activity/Vol] 121 U/L 45-117 [facility] ALT [Catalytic activity/Vol] 17 U/L 13-56 [facility] CO2 [Moles/Vol] 27.0 mmol/L 21.0-32.0 [facility] Globulin (S) [Mass/Vol] 3.9 g/dL 2.2-4.2 [facility] Urea nitrogen/Creatinine [Mass ratio] 20.7 mg/mg 10-20 [facility] Laboratory - Hematology and Cell countsOrdered By: Amina Palomo on 07-18-2023 Erythrocyte distribution width (RBC) [Entitic vol] 55.8 fL 35.1-43.9 [facility] Erythrocyte distribution width (RBC) [Ratio] 15.1 % 11.6-14.6 [facility] Immature granulocytes/100 WBC (Bld) 0.600 % 0.0-0.9 [facility] Comment on above: IG% - Immature Granu locytes (promyelocytes, myelocytes and metamyelocytes) > 1% indicates that a LEFT SHIFT is Present. MCH (RBC) [Entitic mass] 31.5 pg 27.0-32.0 [facility] Nucleated RBC/100 WBC (Bld) [Ratio] 0 % 0-5 [facility] MCHC Auto (RBC) [Mass/Vol]Or dered By: Amina Palomo on 07-18-2023 MCHC (RBC) [Mass/Vol] 30.7 g/dL 32-[address] [facility] No Panel InformationOrdered By: Amina Palomo on 07-18-2023 Estimated GFR (MDRD) Amer 76 mL/min >60 [facility] Comment on above: GFR Calc Estimated GFR (MDRD) Non-Af Amer 63 mL/min >60 [facility] Comment on above: Non- GFR Calc Platelets bldOrdered By: Dale Palomo on 07-18-2023 Platelets (Bld) [#/Vol] 281 10*3/uL 150-450 [facility] Serum or plasma albumin luis enrique urement (mass/volume)Ordered By: Amina Palomo on 07-18-2023 Albumin [Mass/Vol] 3.5 g/dL 3.2-5.0 [facility] Serum or plasma albumin/glob ulin mass ratioOrdered By: Amina Palomo on 07-18-2023 Albumin/Globulin [Mass ratio] 0.9 {ratio} 0.9-2.4 [facility] Serum or plasma calcium luis enrique urement (mass/volume)Ordered By: Amina Palomo on 07-18-2023 Calcium [Mass/Vol] 9.2 mg/dL 8.5-10.1 [facility] Serum or plasma creatinine m easurement (mass/volume)Ordered By: Amina Palomo on 07-18-2023 Creatinine [Mass/Vol] 0.92 mg/dL 0.55-1.[address] [facility] Comment on above: The validity of the calculated GFR & GFRAA in patients over 70 years has not been determined. Clinical correlation is essential. Serum or plasma urea nitroge n measurement (mass/volume)Ordered By: Amina Palomo on 07-18-2023 Urea nitrogen [Mass/Vol] 19 mg/dL 7-18 [facility] Thin prep Papanicolaou smear with manual screeningOrdered By: Amina Palomo on 07-18-2023 Thin prep Papanicolaou smear with manual screening 14 U/L 15-37 [facility] Thin prep Papanicolaou smear with manual screening 6 5-15 [facility] Absolute lymphocyte countOrd ered By: Dr. Palomo on 04-21-2023 Lymphocytes Auto (Unsp spec) [#/Vol] 2.18 10*3/uL 0.83-4.51 [facility] Basophil percentageOrdered B y: Dr. Palomo on 04-21-2023 Basophils/100 WBC (Bld) 1.1 % 0-1 [facility] Bilirubin [Mass/Vol] 0.30 mg/dL 0.20-1.00 [facility] Comment on above: For patients on eltr ombopag therapy, use of [place] TBIL is not recommended. Chloride [Moles/Vol] 104 mmol/L 98-107 [facility] Eosinophils/100 WBC (Bld) 6.2 % 0-5 [facility] Glucose [Mass/Vol] 102 mg/dL 74-106 [facility] Comment on above: Fasting Glucose resu lt from 100 to 125 mg/dL suggests IMPAIRED HOMEOSTASIS per A.D.A. criteria. Neutrophils (Bld) [#/Vol] 4.0 10*3/uL 2.0-7.7 [facility] Neutrophils/100 WBC (Bld) 54.7 % 47-70 [facility] Potassium [Moles/Vol] 4.7 mmol/L 3.5-5.[address] [facility] Protein [Mass/Vol] 7.5 g/dL 6.4-8.2 [facility] Sodium [Moles/Vol] 138 mmol/L 136-145 [facility] WBC (Bld) [#/Vol] 7.4 10*3/uL 4.4-11.0 [facility] Blood erythrocytes count (nu mber/volume)Ordered By: Dr. Palomo on 04-21-2023 RBC (Bld) [#/Vol] 3.96 10*6/uL 4.2-5.4 [facility] Blood hemoglobin measurement (mass/volume)Ordered By: Dr. Palomo on 04-21-2023 Hemoglobin (Bld) [Mass/Vol] 12.3 g/dL 12.0-15.0 [facility] Blood lymphocytes/100 leukoc ytesOrdered By: Dr. Palomo on 04-21-2023 Lymphocytes/100 WBC (Bld) 29.5 % 19-41 [facility] Blood monocytes/100 leukocyt esOrdered By: Dr. Palomo on 04-21-2023 Monocytes/100 WBC (Bld) 8.0 % 0-10 [facility] Blood platelet mean volumeOr dered By: Dr. Palomo on 04-21-2023 Platelet mean volume (Bld) [Entitic vol] 10.3 fL 6.2-12.0 [facility] Determination of erythrocyte mean corpuscular volume (MCV)Ordered By: Dr. Palomo on 04-21-2023 MCV (RBC) [Entitic vol] 102.0 fL 81-99 [facility] Hematocrit Auto (Bld) [Volum e fraction]Ordered By: Dr. Palomo on 04-21-2023 Hematocrit (Bld) [Volume fraction] 40.4 % 37-47 [facility] Laboratory - Chemistry and C hemistry - challengeOrdered By: Dr. Palomo on 04-21-2023 ALP [Catalytic activity/Vol] 134 U/L 45-117 [facility] ALT [Catalytic activity/Vol] 15 U/L 13-56 [facility] CO2 [Moles/Vol] 29.0 mmol/L 21.0-32.0 [facility] Globulin (S) [Mass/Vol] 3.9 g/dL 2.2-4.2 [facility] Urea nitrogen/Creatinine [Mass ratio] 17.9 mg/mg 10-20 [facility] Laboratory - Hematology and Cell countsOrdered By: Dr. Palomo on 04-21-2023 Erythrocyte distribution width (RBC) [Entitic vol] 55.9 fL 35.1-43.9 [facility] Erythrocyte distribution width (RBC) [Ratio] 14.9 % 11.6-14.6 [facility] Immature granulocytes/100 WBC (Bld) 0.500 % 0.0-0.9 [facility] Comment on above: IG% - Immature Granu locytes (promyelocytes, myelocytes and metamyelocytes) > 1% indicates that a LEFT SHIFT is Present. MCH (RBC) [Entitic mass] 31.1 pg 27.0-32.0 [facility] Nucleated RBC/100 WBC (Bld) [Ratio] 0 % 0-5 [facility] MCHC Auto (RBC) [Mass/Vol]Or dered By: Dr. Palomo on 04-21-2023 MCHC (RBC) [Mass/Vol] 30.4 g/dL 32-[address] [facility] No Panel InformationOrdered By: Dr. Palomo on 04-21-2023 Estimated GFR (MDRD) Amer 73 mL/min >60 [facility] Comment on above: GFR Calc Estimated GFR (MDRD) Non-Af Amer 61 mL/min >60 [facility] Comment on above: Non- GFR Calc Platelets bldOrdered By: Dr. Palomo on 04-21-2023 Platelets (Bld) [#/Vol] 270 10*3/uL 150-450 [facility] Serum or plasma albumin luis enrique urement (mass/volume)Ordered By: Dr. Palomo on 04-21-2023 Albumin [Mass/Vol] 3.6 g/dL 3.2-5.0 [facility] Serum or plasma albumin/glob ulin mass ratioOrdered By: Dr. Palomo on 04-21-2023 Albumin/Globulin [Mass ratio] 0.9 {ratio} 0.9-2.4 [facility] Serum or plasma calcium luis enrique urement (mass/volume)Ordered By: Dr. Palomo on 04-21-2023 Calcium [Mass/Vol] 9.3 mg/dL 8.5-10.1 [facility] Serum or plasma creatinine m easurement (mass/volume)Ordered By: Dr. Palomo on 04-21-2023 Creatinine [Mass/Vol] 0.95 mg/dL 0.55-1.[address] [facility] Comment on above: The validity of the calculated GFR & GFRAA in patients over 70 years has not been determined. Clinical correlation is essential. Serum or plasma urea nitroge n measurement (mass/volume)Ordered By: Dr. Palomo on 04-21-2023 Urea nitrogen [Mass/Vol] 17 mg/dL 7-18 [facility] Thin prep Papanicolaou smear with manual screeningOrdered By: Dr. Palomo on 04-21-2023 Thin prep Papanicolaou smear with manual screening 15 U/L 15-37 [facility] Thin prep Papanicolaou smear with manual screening 5 5-15 [facility] Absolute lymphocyte countOrd ered By: Dr. Palomo on 01-20-2023 Lymphocytes Auto (Unsp spec) [#/Vol] 2.19 10*3/uL 0.83-4.51 [facility] Basophil percentageOrdered B y: Dr. Palomo on 01-20-2023 Basophils/100 WBC (Bld) 0.9 % 0-1 [facility] Bilirubin [Mass/Vol] 0.30 mg/dL 0.20-1.00 [facility] Comment on above: For patients on eltr ombopag therapy, use of [place] TBIL is not recommended. Chloride [Moles/Vol] 103 mmol/L 98-107 [facility] Eosinophils/100 WBC (Bld) 6.6 % 0-5 [facility] Glucose [Mass/Vol] 81 mg/dL 74-106 [facility] Neutrophils (Bld) [#/Vol] 5.2 10*3/uL 2.0-7.7 [facility] Neutrophils/100 WBC (Bld) 57.8 % 47-70 [facility] Potassium [Moles/Vol] 4.2 mmol/L 3.5-5.[address] [facility] Protein [Mass/Vol] 7.1 g/dL 6.4-8.2 [facility] Sodium [Moles/Vol] 141 mmol/L 136-145 [facility] WBC (Bld) [#/Vol] 9.0 10*3/uL 4.4-11.0 [facility] Blood erythrocytes count (nu mber/volume)Ordered By: Dr. Palomo on 01-20-2023 RBC (Bld) [#/Vol] 3.76 10*6/uL 4.2-5.4 [facility] Blood hemoglobin measurement (mass/volume)Ordered By: Dr. Palomo on 01-20-2023 Hemoglobin (Bld) [Mass/Vol] 12.0 g/dL 12.0-15.0 [facility] Blood lymphocytes/100 leukoc ytesOrdered By: Dr. Palomo on 01-20-2023 Lymphocytes/100 WBC (Bld) 24.4 % 19-41 [facility] Blood monocytes/100 leukocyt esOrdered By: Dr. Palomo on 01-20-2023 Monocytes/100 WBC (Bld) 10.0 % 0-10 [facility] Blood platelet mean volumeOr dered By: Dr. Palomo on 01-20-2023 Platelet mean volume (Bld) [Entitic vol] 10.2 fL 6.2-12.0 [facility] Determination of erythrocyte mean corpuscular volume (MCV)Ordered By: Dr. Palomo on 01-20-2023 MCV (RBC) [Entitic vol] 104.0 fL 81-99 [facility] Hematocrit Auto (Bld) [Volum e fraction]Ordered By: Dr. Palomo on 01-20-2023 Hematocrit (Bld) [Volume fraction] 39.1 % 37-47 [facility] Laboratory - Chemistry and C hemistry - challengeOrdered By: Dr. Palomo on 01-20-2023 ALP [Catalytic activity/Vol] 109 U/L 45-117 [facility] ALT [Catalytic activity/Vol] 18 U/L 13-56 [facility] CO2 [Moles/Vol] 30.0 mmol/L 21.0-32.0 [facility] Globulin (S) [Mass/Vol] 3.7 g/dL 2.2-4.2 [facility] Urea nitrogen/Creatinine [Mass ratio] 24.8 mg/mg 10-20 [facility] Laboratory - Hematology and Cell countsOrdered By: Dr. Palomo on 01-20-2023 Erythrocyte distribution width (RBC) [Entitic vol] 58.1 fL 35.1-43.9 [facility] Erythrocyte distribution width (RBC) [Ratio] 15.6 % 11.6-14.6 [facility] Immature granulocytes/100 WBC (Bld) 0.300 % 0.0-0.9 [facility] Comment on above: IG% - Immature Granu locytes (promyelocytes, myelocytes and metamyelocytes) > 1% indicates that a LEFT SHIFT is Present. MCH (RBC) [Entitic mass] 31.9 pg 27.0-32.0 [facility] Nucleated RBC/100 WBC (Bld) [Ratio] 0 % 0-5 [facility] MCHC Auto (RBC) [Mass/Vol]Or dered By: Dr. Palomo on 01-20-2023 MCHC (RBC) [Mass/Vol] 30.7 g/dL 32-[address] [facility] No Panel InformationOrdered By: Dr. Palomo on 01-20-2023 Estimated GFR (MDRD) Amer 75 mL/min >60 [facility] Comment on above: GFR Calc Estimated GFR (MDRD) Non-Af Amer 62 mL/min >60 [facility] Comment on above: Non- GFR Calc Platelets bldOrdered By: Dr. Palomo on 01-20-2023 Platelets (Bld) [#/Vol] 265 10*3/uL 150-450 [facility] Serum or plasma albumin luis enrique urement (mass/volume)Ordered By: Dr. Palomo on 01-20-2023 Albumin [Mass/Vol] 3.4 g/dL 3.2-5.0 [facility] Serum or plasma albumin/glob ulin mass ratioOrdered By: Dr. Palomo on 01-20-2023 Albumin/Globulin [Mass ratio] 0.9 {ratio} 0.9-2.4 [facility] Serum or plasma calcium luis enrique urement (mass/volume)Ordered By: Dr. Palomo on 01-20-2023 Calcium [Mass/Vol] 9.4 mg/dL 8.5-10.1 [facility] Serum or plasma creatinine m easurement (mass/volume)Ordered By: Dr. Palomo on 01-20-2023 Creatinine [Mass/Vol] 0.93 mg/dL 0.55-1.[address] [facility] Comment on above: The validity of the calculated GFR & GFRAA in patients over 70 years has not been determined. Clinical correlation is essential. Serum or plasma urea nitroge n measurement (mass/volume)Ordered By: Dr. Palomo on 01-20-2023 Urea nitrogen [Mass/Vol] 23 mg/dL 7-18 [facility] Thin prep Papanicolaou smear with manual screeningOrdered By: Dr. Palomo on 01-20-2023 Thin prep Papanicolaou smear with manual screening 17 U/L 15-37 [facility] Thin prep Papanicolaou smear with manual screening 8 5-15 [facility] Absolute lymphocyte countOrd ered By: Dr. Anaya on 10-30-2022 Lymphocytes Auto (Unsp spec) [#/Vol] 1.72 10*3/uL 0.83-4.51 [facility] Basophil percentageOrdered B y: Dr. Anaya on 10-30-2022 Basophils/100 WBC (Bld) 0.6 % 0-1 [facility] Bilirubin [Mass/Vol] 0.30 mg/dL 0.20-1.00 [facility] Comment on above: For patients on eltr ombopag therapy, use of [place] TBIL is not recommended. Chloride [Moles/Vol] 103 mmol/L 98-107 [facility] Eosinophils/100 WBC (Bld) 3.7 % 0-5 [facility] Glucose [Mass/Vol] 95 mg/dL 74-106 [facility] Neutrophils (Bld) [#/Vol] 5.4 10*3/uL 2.0-7.7 [facility] Neutrophils/100 WBC (Bld) 66.2 % 47-70 [facility] Potassium [Moles/Vol] 4.2 mmol/L 3.5-5.[address] [facility] Protein [Mass/Vol] 6.7 g/dL 6.4-8.2 [facility] Sodium [Moles/Vol] 139 mmol/L 136-145 [facility] WBC (Bld) [#/Vol] 8.2 10*3/uL 4.4-11.0 [facility] Blood erythrocytes count (nu mber/volume)Ordered By: Dr. Anaya on 10-30-2022 RBC (Bld) [#/Vol] 3.89 10*6/uL 4.2-5.4 [facility] Blood hemoglobin measurement (mass/volume)Ordered By: Dr. Anaya on 10-30-2022 Hemoglobin (Bld) [Mass/Vol] 12.3 g/dL 12.0-15.0 [facility] Blood lymphocytes/100 leukoc ytesOrdered By: Dr. Anaya on 10-30-2022 Lymphocytes/100 WBC (Bld) 21.1 % 19-41 [facility] Blood monocytes/100 leukocyt esOrdered By: Dr. Anaya on 10-30-2022 Monocytes/100 WBC (Bld) 8.0 % 0-10 [facility] Blood platelet mean volumeOr dered By: Dr. Anaya on 10-30-2022 Platelet mean volume (Bld) [Entitic vol] 10.0 fL 6.2-12.0 [facility] Determination of erythrocyte mean corpuscular volume (MCV)Ordered By: Dr. Anaya on 10-30-2022 MCV (RBC) [Entitic vol] 101.0 fL 81-99 [facility] Hematocrit Auto (Bld) [Volum e fraction]Ordered By: Dr. Anaya on 10-30-2022 Hematocrit (Bld) [Volume fraction] 39.3 % 37-47 [facility] Laboratory - Chemistry and C hemistry - challengeOrdered By: Dr. Anaya on 10-30-2022 ALP [Catalytic activity/Vol] 114 U/L 45-117 [facility] ALT [Catalytic activity/Vol] 21 U/L 13-56 [facility] CO2 [Moles/Vol] 29.0 mmol/L 21.0-32.0 [facility] Globulin (S) [Mass/Vol] 3.3 g/dL 2.2-4.2 [facility] Urea nitrogen/Creatinine [Mass ratio] 17.5 mg/mg 10-20 [facility] Free T4 [Mass/Vol] 1.11 ng/dL 0.76-1.46 [facility] Laboratory - Hematology and Cell countsOrdered By: Dr. Anaya on 10-30-2022 Erythrocyte distribution width (RBC) [Entitic vol] 53.7 fL 35.1-43.9 [facility] Erythrocyte distribution width (RBC) [Ratio] 14.6 % 11.6-14.6 [facility] Immature granulocytes/100 WBC (Bld) 0.400 % 0.0-0.9 [facility] Comment on above: IG% - Immature Granu locytes (promyelocytes, myelocytes and metamyelocytes) > 1% indicates that a LEFT SHIFT is Present. MCH (RBC) [Entitic mass] 31.6 pg 27.0-32.0 [facility] Nucleated RBC/100 WBC (Bld) [Ratio] 0 % 0-5 [facility] MCHC Auto (RBC) [Mass/Vol]Or dered By: Dr. Anaya on 10-30-2022 MCHC (RBC) [Mass/Vol] 31.3 g/dL 32-[address] [facility] No Panel InformationOrdered By: Dr. Anaya on 10-30-2022 Estimated GFR (MDRD) Amer 72 mL/min >60 [facility] Comment on above: GFR Calc Estimated GFR (MDRD) Non-Af Amer 59 mL/min >60 [facility] Comment on above: Non- GFR Calc Thyroid Stimulating Hormone (TSH) 4.05 uIU/mL 0.358-3.74 [facility] Platelets bldOrdered By: Dr. Anaya on 10-30-2022 Platelets (Bld) [#/Vol] 277 10*3/uL 150-450 [facility] Serum or plasma albumin luis enrique urement (mass/volume)Ordered By: Dr. Anaya on 10-30-2022 Albumin [Mass/Vol] 3.4 g/dL 3.2-5.0 [facility] Serum or plasma albumin/glob ulin mass ratioOrdered By: Dr. Anaya on 10-30-2022 Albumin/Globulin [Mass ratio] 1.0 {ratio} 0.9-2.4 [facility] Serum or plasma calcium luis enrique urement (mass/volume)Ordered By: Dr. Anaya on 10-30-2022 Calcium [Mass/Vol] 9.5 mg/dL 8.5-10.1 [facility] Serum or plasma creatinine m easurement (mass/volume)Ordered By: Dr. Anaya on 10-30-2022 Creatinine [Mass/Vol] 0.97 mg/dL 0.55-1.[address] [facility] Comment on above: The validity of the calculated GFR & GFRAA in patients over 70 years has not been determined. Clinical correlation is essential. Serum or plasma urea nitroge n measurement (mass/volume)Ordered By: Dr. Anaya on 10-30-2022 Urea nitrogen [Mass/Vol] 17 mg/dL 7-18 [facility] Thin prep Papanicolaou smear with manual screeningOrdered By: Dr. Anaya on 10-30-2022 Thin prep Papanicolaou smear with manual screening 17 U/L 15-37 [facility] Thin prep Papanicolaou smear with manual screening 7 5-15 [facility] Whole blood hemoglobin A1c/t otal hemoglobin ratio (mass fraction)Ordered By: Dr. Anaya on 10-30-2022 HbA1c (Bld) [Mass fraction] 5.9 % 3.8-5.6 [facility] Comment on above: Normal < 5.7 % Predi abetic 5.7 - 6.4 % Diabetic >or= 6.5 % Please note range changes. Absolute lymphocyte counton 08-17-2022 Lymphocytes Auto (Unsp spec) [#/Vol] 2.04 10*3/uL 0.83-4.51 [facility] Work Phone: [phone] Basophil percentageon 2021 Basophils/100 WBC (Bld) 1.0 % 0-1 [facility] Work Phone: [phone] Bilirubin [Mass/Vol] 0.30 mg/dL 0.20-1.00 [facility] Work Phone: [phone] Comment on above: For patients on eltr ombopag therapy, use of [place] TBIL is not recommended. Chloride [Moles/Vol] 106 mmol/L 98-107 [facility] Work Phone: Eosinophils/100 WBC (Bld) 6.9 % 0-5 [facility] Work Phone: Glucose [Mass/Vol] 113 mg/dL 74-106 [facility] Work Phone: Comment on above: Fasting Glucose resu lt from 100 to 125 mg/dL suggests IMPAIRED HOMEOSTASIS per A.D.A. criteria. Neutrophils (Bld) [#/Vol] 4.8 10*3/uL 2.0-7.7 [facility] Work Phone: [phone] Neutrophils/100 WBC (Bld) 59.6 % 47-70 [facility] Work Phone: Potassium [Moles/Vol] 4.3 mmol/L 3.5-5.[address] [facility] Work Phone: [phone] Protein [Mass/Vol] 6.8 g/dL 6.4-8.2 [facility] Work Phone: [phone] Sodium [Moles/Vol] 142 mmol/L 136-145 [facility] Work Phone: WBC (Bld) [#/Vol] 8.1 10*3/uL 4.4-11.0 [facility] Work Phone: Blood erythrocytes count (nu mber/volume)on 08-17-2022 RBC (Bld) [#/Vol] 3.62 10*6/uL 4.2-5.4 [facility]: Blood hemoglobin measurement (mass/volume)on 08-17-2022 Hemoglobin (Bld) [Mass/Vol] 11.7 g/dL 12.0-15.0 [facility] Work Phone: Blood lymphocytes/100 leukoc yteson 08-17-2022 Lymphocytes/100 WBC (Bld) 25.1 % 19-41 [facility] Work Phone: Blood monocytes/100 leukocyt eson 08-17-2022 Monocytes/100 WBC (Bld) 7.0 % 0-10 [facility] Work Phone: Blood platelet mean volumeon 08-17-2022 Platelet mean volume (Bld) [Entitic vol] 9.5 fL 6.2-12.0 [facility] Work Phone: Determination of erythrocyte mean corpuscular volume (MCV)on 08-17-2022 MCV (RBC) [Entitic vol] 103.3 fL 81-99 [facility] Work Phone: Hematocrit Auto (Bld) [Volum e fraction]on 08-17-2022 Hematocrit (Bld) [Volume fraction] 37.4 % 37-47 [facility] Work Phone: Laboratory - Chemistry and C hemistry - challengeon 08-17-2022 ALP [Catalytic activity/Vol] 114 U/L 45-117 [facility] Work Phone: ALT [Catalytic activity/Vol] 19 U/L 13-56 [facility] Work Phone: CO2 [Moles/Vol] 31.0 mmol/L 21.0-32.0 [facility] Work Phone: Globulin (S) [Mass/Vol] 3.6 g/dL 2.2-4.2 [facility] Work Phone: Urea nitrogen/Creatinine [Mass ratio] 24.0 mg/mg 10-20 [facility] Work Phone: Laboratory - Hematology and Cell countson 08-17-2022 Erythrocyte distribution width (RBC) [Entitic vol] 55.2 fL 35.1-43.9 [facility] Work Phone: Erythrocyte distribution width (RBC) [Ratio] 14.6 % 11.6-14.6 [facility] Work Phone: Immature granulocytes/100 WBC (Bld) 0.400 % 0.0-0.9 [facility] Work Phone: Comment on above: IG% - Immature Granu locytes (promyelocytes, myelocytes and metamyelocytes) > 1% indicates that a LEFT SHIFT is Present. MCH (RBC) [Entitic mass] 32.3 pg 27.0-32.0 [facility] Work Phone: Nucleated RBC/100 WBC (Bld) [Ratio] 0 % 0-5 [facility] Work Phone: MCHC Auto (RBC) [Mass/Vol]on 08-17-2022 MCHC (RBC) [Mass/Vol] 31.3 g/dL 32-[address] [facility] Work Phone: No Panel Informationon 08-17 Estimated GFR (MDRD) Amer 85 mL/min >60 [facility] Work Phone: Comment on above: GFR Calc Estimated GFR (MDRD) Non-Af Amer 70 mL/min >60 [facility] Work Phone: Comment on above: Non- GFR Calc Platelets bldon 08-17-2022 Platelets (Bld) [#/Vol] 244 10*3/uL 150-450 [facility] Work Phone: Serum or plasma albumin luis enrique urement (mass/volume)on 08-17-2022 Albumin [Mass/Vol] 3.2 g/dL 3.2-5.0 [facility] Work Phone: Serum or plasma albumin/glob ulin mass ratioon 08-17-2022 Albumin/Globulin [Mass ratio] 0.9 {ratio} 0.9-2.4 [facility] Work Phone: Serum or plasma calcium luis enrique urement (mass/volume)on 08-17-2022 Calcium [Mass/Vol] 9.3 mg/dL 8.5-10.1 [facility] Work Phone: Serum or plasma creatinine m easurement (mass/volume)on 08-17-2022 Creatinine [Mass/Vol] 0.84 mg/dL 0.55-1.[address] [facility] Work Phone: Comment on above: The validity of the calculated GFR & GFRAA in patients over 70 years has not been determined. Clinical correlation is essential. Serum or plasma urea nitroge n measurement (mass/volume)on 08-17-2022 Urea nitrogen [Mass/Vol] 20 mg/dL 7-18 [facility] Work Phone: Thin prep Papanicolaou smear with manual screeningon 08-17-2022 Thin prep Papanicolaou smear with manual screening 12 U/L 15-37 [facility] Work Phone: Thin prep Papanicolaou smear with manual screening 5 5-15 [facility] Work Phone: Absolute lymphocyte counton 05-24-2022 Lymphocytes Auto (Unsp spec) [#/Vol] 2.37 10*3/uL 0.83-4.51 [facility] Work Phone: Basophil percentageon 2021 Basophils/100 WBC (Bld) 1.1 % 0-1 [facility] Work Phone: Bilirubin [Mass/Vol] 0.40 mg/dL 0.20-1.00 [facility] Work Phone: Comment on above: For patients on eltr ombopag therapy, use of [place] TBIL is not recommended. Chloride [Moles/Vol] 102 mmol/L 98-107 [facility] Work Phone: Eosinophils/100 WBC (Bld) 3.7 % 0-5 [facility] Work Phone: Glucose [Mass/Vol] 109 mg/dL 74-106 [facility] Work Phone: [phone] Comment on above: Fasting Glucose resu lt from 100 to 125 mg/dL suggests IMPAIRED HOMEOSTASIS per A.D.A. criteria. Neutrophils (Bld) [#/Vol] 5.2 10*3/uL 2.0-7.7 [facility] Work Phone: Neutrophils/100 WBC (Bld) 60.9 % 47-70 [facility] Work Phone: Potassium [Moles/Vol] 4.1 mmol/L 3.5-5.[address] [facility] Work Phone: Protein [Mass/Vol] 7.4 g/dL 6.4-8.2 [facility] Work Phone: Sodium [Moles/Vol] 137 mmol/L 136-145 [facility] Work Phone: WBC (Bld) [#/Vol] 8.5 10*3/uL 4.4-11.0 [facility] Work Phone: Blood erythrocytes count (nu mber/volume)on 05-24-2022 RBC (Bld) [#/Vol] 3.79 10*6/uL 4.2-5.4 [facility] Work Phone: Blood hemoglobin measurement (mass/volume)on 05-24-2022 Hemoglobin (Bld) [Mass/Vol] 12.1 g/dL 12.0-15.0 [facility] Work Phone: Blood lymphocytes/100 leukoc yteson 05-24-2022 Lymphocytes/100 WBC (Bld) 27.8 % 19-41 [facility] Work Phone: Blood monocytes/100 leukocyt eson 05-24-2022 Monocytes/100 WBC (Bld) 6.1 % 0-10 [facility] Work Phone: Blood platelet mean volumeon 05-24-2022 Platelet mean volume (Bld) [Entitic vol] 10.5 fL 6.2-12.0 [facility] Work Phone: Determination of erythrocyte mean corpuscular volume (MCV)on 05-24-2022 MCV (RBC) [Entitic vol] 102.9 fL 81-99 [facility] Work Phone: Hematocrit Auto (Bld) [Volum e fraction]on 05-24-2022 Hematocrit (Bld) [Volume fraction] 39.0 % 37-47 [facility] Work Phone: Laboratory - Chemistry and C hemistry - challengeon 05-24-2022 ALP [Catalytic activity/Vol] 125 U/L 45-117 [facility] Work Phone: ALT [Catalytic activity/Vol] 20 U/L 13-56 [facility] Work Phone: CO2 [Moles/Vol] 29.0 mmol/L 21.0-32.0 [facility] Work Phone: Globulin (S) [Mass/Vol] 3.7 g/dL 2.2-4.2 [facility] Work Phone: Urea nitrogen/Creatinine [Mass ratio] 16.4 mg/mg 10-20 [facility] Work Phone: Laboratory - Hematology and Cell countson 05-24-2022 Erythrocyte distribution width (RBC) [Entitic vol] 57.4 fL 35.1-43.9 [facility] Work Phone: Erythrocyte distribution width (RBC) [Ratio] 15.5 % 11.6-14.6 [facility] Work Phone: Immature granulocytes/100 WBC (Bld) 0.400 % 0.0-0.9 [facility] Work Phone: Comment on above: IG% - Immature Granu locytes (promyelocytes, myelocytes and metamyelocytes) > 1% indicates that a LEFT SHIFT is Present. MCH (RBC) [Entitic mass] 31.9 pg 27.0-32.0 [facility] Work Phone: Nucleated RBC/100 WBC (Bld) [Ratio] 0 % 0-5 [facility] Work Phone: MCHC Auto (RBC) [Mass/Vol]on 05-24-2022 MCHC (RBC) [Mass/Vol] 31.0 g/dL 32-[address] [facility] Work Phone: No Panel Informationon 05-24 Estimated GFR (MDRD) Amer 71 mL/min >60 [facility] Work Phone: Comment on above: GFR Calc Estimated GFR (MDRD) Non-Af Amer 59 mL/min >60 [facility] Work Phone: Comment on above: Non- GFR Calc Platelets bldon 05-24-2022 Platelets (Bld) [#/Vol] 283 10*3/uL 150-450 [facility] Work Phone: Serum or plasma albumin luis enrique urement (mass/volume)on 05-24-2022 Albumin [Mass/Vol] 3.7 g/dL 3.2-5.0 [facility] Work Phone: Serum or plasma albumin/glob ulin mass ratioon 05-24-2022 Albumin/Globulin [Mass ratio] 1.0 {ratio} 0.9-2.4 [facility] Work Phone: Serum or plasma calcium luis enrique urement (mass/volume)on 05-24-2022 Calcium [Mass/Vol] 9.5 mg/dL 8.5-10.1 [facility] Work Phone: Serum or plasma creatinine m easurement (mass/volume)on 05-24-2022 Creatinine [Mass/Vol] 0.97 mg/dL 0.55-1.[address] [facility] Work Phone: Comment on above: The validity of the calculated GFR & GFRAA in patients over 70 years has not been determined. Clinical correlation is essential. Serum or plasma urea nitroge n measurement (mass/volume)on 05-24-2022 Urea nitrogen [Mass/Vol] 16 mg/dL 7-18 [facility] Work Phone: Thin prep Papanicolaou smear with manual screeningon 05-24-2022 Thin prep Papanicolaou smear with manual screening 18 U/L 15-37 [facility] Work Phone: Thin prep Papanicolaou smear with manual screening 6 5-15 [facility] Work Phone: Absolute lymphocyte counton 02-27-2022 Lymphocytes Auto (Unsp spec) [#/Vol] 2.19 10*3/uL 0.83-4.51 [facility] Work Phone: Basophil percentageon 2021 Basophils/100 WBC (Bld) 1.1 % 0-1 [facility] Work Phone: Bilirubin [Mass/Vol] 0.30 mg/dL 0.20-1.00 [facility] Work Phone: Comment on above: For patients on eltr ombopag therapy, use of [place] TBIL is not recommended. Chloride [Moles/Vol] 104 mmol/L 98-107 [facility] Work Phone: Eosinophils/100 WBC (Bld) 4.7 % 0-5 [facility] Work Phone: Glucose [Mass/Vol] 129 mg/dL 74-106 [facility] Work Phone: Comment on above: Fasting Glucose resu lt greater than or equal to 126 mg/dL suggests DIABETES MELLITUS per A.D.A. criteria. Neutrophils (Bld) [#/Vol] 4.4 10*3/uL 2.0-7.7 [facility] Work Phone: Neutrophils/100 WBC (Bld) 58.3 % 47-70 [facility] Work Phone: [phone] Potassium [Moles/Vol] 4.0 mmol/L 3.5-5.1 [facility]: [phone] Protein [Mass/Vol] 7.4 g/dL 6.4-8.2 [facility] Work Phone: [phone] Sodium [Moles/Vol] 139 mmol/L 136-145 [facility] Work Phone: [phone] WBC (Bld) [#/Vol] 7.5 10*3/uL 4.4-11.0 [facility] Work Phone: Blood erythrocytes count (nu mber/volume)on 02-27-2022 RBC (Bld) [#/Vol] 4.11 10*6/uL 4.2-5.4 [facility]: Blood hemoglobin measurement (mass/volume)on 02-27-2022 Hemoglobin (Bld) [Mass/Vol] 12.6 g/dL 12.0-15.0 [facility] Work Phone: [phone] Blood lymphocytes/100 leukoc yteson 02-27-2022 Lymphocytes/100 WBC (Bld) 29.3 % 19-41 [facility] Work Phone: [phone] Blood monocytes/100 leukocyt eson 02-27-2022 Monocytes/100 WBC (Bld) 6.3 % 0-10 [facility] Work Phone: Blood platelet mean volumeon 02-27-2022 Platelet mean volume (Bld) [Entitic vol] 10.2 fL 6.2-12.0 [facility] Work Phone: Determination of erythrocyte mean corpuscular volume (MCV)on 02-27-2022 MCV (RBC) [Entitic vol] 97.6 fL 81-99 [facility] Work Phone: Hematocrit Auto (Bld) [Volum e fraction]on 02-27-2022 Hematocrit (Bld) [Volume fraction] 40.1 % 37-47 [facility] Work Phone: Laboratory - Chemistry and C hemistry - challengeon 02-27-2022 ALP [Catalytic activity/Vol] 115 U/L 45-117 [facility] Work Phone: ALT [Catalytic activity/Vol] 16 U/L 13-56 [facility] Work Phone: CO2 [Moles/Vol] 26.0 mmol/L 21.0-32.0 [facility] Work Phone: Globulin (S) [Mass/Vol] 4.1 g/dL 2.2-4.2 [facility] Work Phone: Urea nitrogen/Creatinine [Mass ratio] 20.0 mg/mg 10-20 [facility] Work Phone: Laboratory - Hematology and Cell countson 02-27-2022 Erythrocyte distribution width (RBC) [Entitic vol] 54.3 fL 35.1-43.9 [facility] Work Phone: Erythrocyte distribution width (RBC) [Ratio] 15.1 % 11.6-14.6 [facility] Work Phone: Immature granulocytes/100 WBC (Bld) 0.300 % 0.0-0.9 [facility] Work Phone: Comment on above: IG% - Immature Granu locytes (promyelocytes, myelocytes and metamyelocytes) > 1% indicates that a LEFT SHIFT is Present. MCH (RBC) [Entitic mass] 30.7 pg 27.0-32.0 [facility] Work Phone: Nucleated RBC/100 WBC (Bld) [Ratio] 0 % 0-5 [facility] Work Phone: MCHC Auto (RBC) [Mass/Vol]on 04-20-2022 MCHC (RBC) [Mass/Vol] 31.4 g/dL 32-[address] [facility] Work Phone: No Panel Informationon 02-27 Estimated GFR (MDRD) Amer 69 mL/min >60 [facility] Work Phone: Comment on above: GFR Calc Estimated GFR (MDRD) Non-Af Amer 57 mL/min >60 [facility] Work Phone: Comment on above: Non- GFR Calc Platelets bldon 02-27-2022 Platelets (Bld) [#/Vol] 307 10*3/uL 150-450 [facility] Work Phone: Serum or plasma albumin luis enrique urement (mass/volume)on 02-27-2022 Albumin [Mass/Vol] 3.3 g/dL 3.2-5.0 [facility] Work Phone: Serum or plasma albumin/glob ulin mass ratioon 02-27-2022 Albumin/Globulin [Mass ratio] 0.8 {ratio} 0.9-2.4 [facility] Work Phone: Serum or plasma calcium luis enrique urement (mass/volume)on 02-27-2022 Calcium [Mass/Vol] 9.3 mg/dL 8.5-10.1 [facility] Work Phone: Serum or plasma creatinine m easurement (mass/volume)on 02-27-2022 Creatinine [Mass/Vol] 1.00 mg/dL 0.55-1.[address] [facility] Work Phone: Comment on above: The validity of the calculated GFR & GFRAA in patients over 70 years has not been determined. Clinical correlation is essential. Serum or plasma urea nitroge n measurement (mass/volume)on 02-27-2022 Urea nitrogen [Mass/Vol] 20 mg/dL 7-18 [facility] Work Phone: Thin prep Papanicolaou smear with manual screeningon 02-27-2022 Thin prep Papanicolaou smear with manual screening 12 U/L 15-37 [facility] Work Phone: Thin prep Papanicolaou smear with manual screening 9 5-15 [facility] Work Phone: Absolute lymphocyte counton 2021 Lymphocytes Auto (Unsp spec) [#/Vol] 2.48 10*3/uL 0.83-4.51 [facility] Work Phone: Basophil percentageon 2021 Basophils/100 WBC (Bld) 0.8 % 0-1 [facility] Work Phone: Bilirubin [Mass/Vol] 0.50 mg/dL 0.20-1.00 [facility] Work Phone: Comment on above: For patients on eltr ombopag therapy, use of [place] TBIL is not recommended. Chloride [Moles/Vol] 102 mmol/L 98-107 [facility] Work Phone: Eosinophils/100 WBC (Bld) 2.5 % 0-5 [facility] Work Phone: Glucose [Mass/Vol] 112 mg/dL 74-106 [facility] Work Phone: Comment on above: Fasting Glucose resu lt from 100 to 125 mg/dL suggests IMPAIRED HOMEOSTASIS per A.D.A. criteria. Neutrophils (Bld) [#/Vol] 7.7 10*3/uL 2.0-7.7 [facility] Work Phone: Neutrophils/100 WBC (Bld) 67.5 % 47-70 [facility] Work Phone: Potassium [Moles/Vol] 3.9 mmol/L 3.5-5.[address] [facility] Work Phone: Protein [Mass/Vol] 7.9 g/dL 6.4-8.2 [facility] Work Phone: [phone] Sodium [Moles/Vol] 136 mmol/L 136-145 [facility] Work Phone: WBC (Bld) [#/Vol] 11.4 10*3/uL 4.4-11.0 [facility] Work Phone: Blood erythrocytes count (nu mber/volume)on 2021 RBC (Bld) [#/Vol] 3.90 10*6/uL 4.2-5.4 [facility] Work [facility]: Blood hemoglobin measurement (mass/volume)on 2021 Hemoglobin (Bld) [Mass/Vol] 12.0 g/dL 12.0-15.0 [facility] Work Phone: Blood lymphocytes/100 leukoc yteson 2021 Lymphocytes/100 WBC (Bld) 21.8 % 19-41 [facility] Work Phone: Blood monocytes/100 leukocyt eson 2021 Monocytes/100 WBC (Bld) 7.0 % 0-10 [facility] Work Phone: Blood platelet mean volumeon 2021 Platelet mean volume (Bld) [Entitic vol] 10.5 fL 6.2-12.0 [facility] Work Phone: Determination of erythrocyte mean corpuscular volume (MCV)on 2021 MCV (RBC) [Entitic vol] 99.7 fL 81-99 [facility] Work Phone: Hematocrit Auto (Bld) [Volum e fraction]on 2021 Hematocrit (Bld) [Volume fraction] 38.9 % 37-47 [facility] Work Phone: Laboratory - Chemistry and C hemistry - challengeon 2021 ALP [Catalytic activity/Vol] 131 U/L 45-117 [facility] Work Phone: ALT [Catalytic activity/Vol] 18 U/L 13-56 [facility] Work Phone: CO2 [Moles/Vol] 27.0 mmol/L 21.0-32.0 [facility] Work Phone: Globulin (S) [Mass/Vol] 4.4 g/dL 2.2-4.2 [facility] Work Phone: Urea nitrogen/Creatinine [Mass ratio] 14.7 mg/mg 10-20 [facility] Work Phone: Laboratory - Hematology and Cell [place] 2021 Erythrocyte distribution width (RBC) [Entitic vol] 55.5 fL 35.1-43.9 [facility] Work Phone: Erythrocyte distribution width (RBC) [Ratio] 15.4 % 11.6-14.6 [facility] Work Phone: Immature granulocytes/100 WBC (Bld) 0.400 % 0.0-0.9 [facility] Work Phone: Comment on above: IG% - Immature Granu locytes (promyelocytes, myelocytes and metamyelocytes) > 1% indicates that a LEFT SHIFT is Present. MCH (RBC) [Entitic mass] 30.8 pg 27.0-32.0 [facility] Work Phone: Nucleated RBC/100 WBC (Bld) [Ratio] 0 % 0-5 [facility] Work Phone: MCHC Auto (RBC) [Mass/Vol]on 2021 MCHC (RBC) [Mass/Vol] 30.8 g/dL 32-[address] [facility] Work Phone: No Panel Informationon 11-29 Estimated GFR (MDRD) Amer 63 mL/min >60 [facility] Work Phone: Comment on above: GFR Calc Estimated GFR (MDRD) Non-Af Amer 52 mL/min >60 [facility] Work Phone: Comment on above: Non- GFR Calc Platelets bldon 2021 Platelets (Bld) [#/Vol] 293 10*3/uL 150-450 [facility] Work Phone: Serum or plasma albumin luis enrique urement (mass/volume)on 2021 Albumin [Mass/Vol] 3.5 g/dL 3.2-5.0 [facility] Work Phone: Serum or plasma albumin/glob ulin mass ratioon 2021 Albumin/Globulin [Mass ratio] 0.8 {ratio} 0.9-2.4 [facility] Work Phone: Serum or plasma calcium luis enrique urement (mass/volume)on 2021 Calcium [Mass/Vol] 9.5 mg/dL 8.5-10.1 [facility] Work Phone: Serum or plasma creatinine m easurement (mass/volume)on 2021 Creatinine [Mass/Vol] 1.09 mg/dL 0.55-1.[address] [facility] Work Phone: Comment on above: The validity of the calculated GFR & GFRAA in patients over 70 years has not been determined. Clinical correlation is essential. Serum or plasma urea nitroge n measurement (mass/volume)on 2021 Urea nitrogen [Mass/Vol] 16 mg/dL 7-18 [facility] Work Phone: Thin prep Papanicolaou smear with manual screeningon 2021 Thin prep Papanicolaou smear with manual screening 10 U/L 15-37 [facility] Work Phone: Thin prep Papanicolaou smear with manual screening 7 5-15 [facility] Work Phone: Vital Signs Date Time Vital Sign Value Performing Clinician Faci lity 03-21-2024 22:26-0400 Body temperature 97.5 [degF] [facility] 03-21-2024 22:26-0400 Diastolic blood pressure 73 mm[Hg] [facility] 03-21-2024 22:26-0400 Heart rate 93 /min [facility] 03-21-2024 22:26-0400 Respiratory rate 20 /min [facility] 03-21-2024 22:26-0400 SaO2% (BldA) [Mass fraction] 96 % [facility] 03-21-2024 22:26-0400 Systolic blood pressure 172 mm[Hg] [facility] 03-21-2024 20:34-0400 Body height 165.1 cm [facility] 03-21-2024 20:34-0400 Body mass index (BMI) [Ratio] 44.9 kg/m2 [facility] 03-21-2024 20:34-0400 Body weight 122.5 kg [facility] 07-16-2023 14:29-0400 Body height 165.[address] Marciano Anaya Work Phone: [facility] 07-16-2023 14:29-0400 Body mass index (BMI) [Ratio] 43.4 kg/m2 Dr. Marciano Anaya Work Phone: [facility] 07-16-2023 14:29-0400 Body weight 118.[address] Marciano Anaya Work Phone: [facility] Encounters Encounter Date Encounter Type Care Provider Facility Start: 07-05-[address] Marciano Anaya DO -Laboratory [facility] Start: 07-05-2025 ambulatory Marciano Anaya Facility: [facility] Start: 07-01-2025 End: 07-01-[address] Marciano Anaya DO Work Phone: -Laboratory [place] Start: 07-01-2025 End: 07-01-[address] Marciano Anaya DO -Laboratory [place] Work Phone: Start: 07-01-2025 End: 07-01-2025 ambulatory Marciano Anaya Facility:[facility] Start: 06-06-2025 End: 06-06-[address] Marciano Anaya DO Work Phone: -Laboratory [place] Start: 06-06-2025 End: 06-06-[address] Amina Palomo MD -Laboratory [place] Work Phone: Start: 06-06-2025 End: 06-06-2025 ambulatory Amina Palomo Facility:[facility] Start: 03-25-2025 End: 03-25-[address] Marciano Anaya DO Work Phone: [facility] Work Phone: Start: 03-25-2025 End: 03-25-[address] Amina Palomo MD -Radiology [place] Work Phone: Start: 03-25-2025 End: 03-25-2025 ambulatory Marciano Anaya Facility:[facility] Start: 03-18-2025 End: 03-18-[address] Marciano Anaya DO Work Phone: [facility] Work Phone: Start: 03-18-2025 End: 03-18-[address] Amina Palomo MD -Laboratory [place] Work Phone: Start: 03-18-2025 End: 03-18-2025 ambulatory Marciano Anaya Facility:[facility] Start: 02-16-2025 End: 02-16-[address] Marciano Anaya DO Work Phone: [facility] Work Phone: Start: 02-16-2025 End: 02-16-[address] Marciano Anaya DO -Radiology, [place] Work Phone: Start: 02-16-2025 End: 02-16-2025 ambulatory Marciano Anaya Facility:[facility] Start: 12-24-2024 End: 12-24-[address] Amina Palomo MD -Laboratory, [place] Work Phone: Start: 12-24-2024 End: 12-24-2024 ambulatory Amina Palomo Facility:[facility] Start: 10-25-2024 End: 10-25-[address] Marciano Anaya DO -Laboratory, [facility] Start: 10-25-2024 End: 10-25-2024 ambulatory Marciano Anaya Facility:[facility] Start: 09-30-2024 End: 09-30-2024 ambulatory [facility] Facility:[facility] Start: 08-18-2024 End: 08-18-2024 ambulatory [facility] Facility:[facility] Start: 08-05-2024 End: 08-05-2024 ambulatory [facility] Facility:[facility] Start: 03-21-2024 End: 03-21-2024 Emergency department patient visit [facility]-Emergency Department Work Phone: Start: 03-19-2024 Patient encounter procedure [facility] Work Phone: Start: 03-11-2024 End: 03-11-2024 ambulatory [facility] Work Phone: Start: 03-11-2024 End: 03-11-2024 Patient encounter procedure [facility] Work Phone: Start: 01-06-2024 End: 01-06-[address] Marciano Anaya Work Phone: [facility] Work Phone: Start: 01-06-2024 End: 01-06-[address] Marciano Anaya Work Phone: [facility] Work Phone: Start: 10-14-2023 End: 10-14-[address] Marciano Anaya Work Phone: [facility] Start: 10-10-2023 End: 10-10-[address] Marciano Anaya Work Phone: [facility] Work Phone: Start: 10-10-2023 End: 10-10-[address] Marciano Anaya Work Phone: [facility] Work Phone: Start: 07-31-2023 End: 07-31-[address] Marciano Anaya Work Phone: [facility] Work Phone: Start: 07-31-2023 End: 07-31-[address] Marciano Anaya Work Phone: [facility] Work Phone: Start: 07-18-2023 End: 07-18-[address] Marciano Anaya Work Phone: [facility] Work Phone: Start: 07-18-2023 End: 07-18-[address] Marciano Anaya Work Phone: [facility] Work Phone: Start: 07-16-2023 End: 07-16-[address] Marciano Anaya Work Phone: [facility] Work Phone: Start: 04-21-2023 End: 04-21-2023 ambulatory [facility] Work Phone: Start: 04-21-2023 End: 04-21-2023 Patient encounter procedure [facility] Start: 01-20-2023 End: 01-20-2023 ambulatory [facility] Work Phone: Start: 01-20-2023 End: 01-20-2023 Patient encounter procedure [facility] Start: 10-30-2022 End: 10-30-2022 ambulatory [facility] Work Phone: Start: 10-30-2022 End: 10-30-2022 Patient encounter procedure [facility] Start: 08-17-2022 End: 08-17-2022 Patient encounter procedure [facility] Start: 05-24-2022 End: 05-24-2022 Patient encounter procedure [facility] Start: 02-27-2022 End: 02-27-2022 Patient encounter procedure [facility] Start: 2021 End: 2021 Patient encounter procedure [facility] Procedures Date Procedure Procedure Detail Performing Clinician Start: 03-25-2025 Plain x-ray of pelvi s and lower extremity Dr. Marciano Anaya DO Work Phone: Start: 02-16-2025 X-ray of chest, PA a nd lateral views Dr. Marciano Anaya DO Work Phone: Start: 12-24-2024 Measurement of renal function Dr. Marciano Anaya DO Work Phone: Comment on above: GFR Calc Start: 03-21-2024 CT of head without contrast Start: 10-14-2023 X-ray of both feet Dr. Marciano Anaya Work Phone: Start: 07-31-2023 US scan of thyroid Dr. Marciano Anaya Work Phone: Start: 07-16-2023 Plain x-ray of elbow Dr Cole Anaya Work Phone: Plan of Treatment Date Care Activity Detail Author Start: 03-21-2024 [facility] Patient Education ED Abrasion ED Head Injury (Adult) [facility] Work Phone: Patient referral [facility] Work Phone: Immunizations Immunization Date Immunization Notes Care Provider Fa cility 03-21-2024 tetanus toxoid, redu connor diphtheria toxoid, and acellular pertussis vaccine, adsorbed [facility] Payers Date Payer Category Payer Self-pay [id number] 2024 Private Health Insurance 101 [id number] 2024 Self-pay [id number] 2012 Medicare [id number] Unknown [id number] 2.16.8 [id number] Unknown [id number] 2.16.8 [id number] Unknown [id number] 2.16.8 [id number] Unknown [id number] 2.16.8 [id number] Unknown [id number] 2.16.8 [id number] Unknown [id number] 2.16.8 [id number] Unknown [id number] 2.16.8 [id number] Unknown [id number] 2.16.8 [id number] Unknown [id number] 2.16.8 [id number] Unknown [id number] 2.16.8 [id number] Unknown [id number] 2.16.8 [id number] Social History Date Type Detail Facility Start: 08-29-2021 End: 03-21-2024 Tobacco smoking status NHIS Unknown if ever smoked [facility] Start: 12-07-2020 Sober [facility] Start: 12-07-2020 None [facility] Start: 12-07-2020 With Family [facility] Start: 12-07-2020 Non-smoker [facility] Start: 1945 Sex Assigned At Female [facility] Start: 03-21-2024 Tobacco smoking stat us NHIS Ex-smoker (finding) [facility] Start: 02-18-2025 Sex Female (finding) [facility] Radiology Diagnostic study note 03-26-2025 Note Date & Type Note Facility 03-26-2025 Radiology Diagnostic study note [facility] Imaging Services [address] [place], [place] [id number] HIP, UNI W/ Pelvis 2-3 Views MR#: [id number] Acct: [id number] Name: JESUSSEVERIANO A Rep #: [id number] : 1945 79 From: Trevor Tadeo MD PCP: Dr. Marciano Anaya DO Status: REG CLI Study:HIP, UNI W/ Pelvis 2-3 Views Date of Ex am: 03/25/25 Exam# [id number] Ordering Dr: Amina Palomo MD PROCEDURE: HIP, UNI W/ PELVIS 2-3 VIEWS 03/25/2025 REASON FOR EXAM: LEFT HIP GIVES OUT, S/P SRI TECHNIQUE: AP pelvis and two-view left hip, 3 total images COMPARISON: None available FINDINGS: Patient is rotated to the left. Partially imaged lower lumbar intervertebral disc spacers and posterior fusion at least L4 through L1. Symmetric bilateral appearing SI joint and pubic symphysis degenerative changes. Bilateral hip replacements partially imaged on the right. No fracture or dislocation. Vascular calcifications. RAD/HIP, UNI W/ Pelvis 2-3 Views IMPRESSION: Findings as above. Reading Location: [id number] CC: Dr. Marciano Anaya DO; Dr. Amina Palomo MD ~ Care Transition Mgr: Signed [facility] Radiology Diagnostic study note 02-16-2025 Note Date & Type Note Facility 02-16-2025 Radiology Diagnostic study note [facility] Imaging Services [address] [place], [place] [address] Chest PA and Lateral MR#: [id number] Acct: [id number] Name: SEVERIANO LEE Rep #: [id number] : 1945 F 79 From: Alma Delia Yee MD PCP: Dr. Marciano Anaya DO Status: REG CLI Study:Chest PA and Lateral Date of Exam: 02/16/25 Exam# [id number] Ordering Dr: Marciano Anaya DO PROCEDURE: CHEST PA AND LATERAL 02/16/2025 REASON FOR EXAM: PERSISTENT COUGH, COPD TECHNIQUE: Frontal and lateral views of the chest. COMPARISON: None FINDINGS: Heart: Unremarkable. Mediastinum: Atherosclerosis. Lungs/pleura: Slightly elevated LEFT hemidiaphragm. Minimal platelike likely atelectasis/scarring in the LEFT lung base. No pleural effusion or visible pneumothorax. Bones: Demineralization. Multilevel spondylosis. Reverse geometry bilateral shoulder arthroplasty, not well evaluated. Lines and support devices: None. Other: None. RAD/Chest PA and Lateral IMPRESSION: 1. No visible acute cardiopulmonary findings. If unexplained symptoms persist, consider CT. 2. Additional description as above. Reading Location: [id number] CC: Dr. Marciano Anaya DO ~ Care Transition Mgr: Signed [facility] Discharge summary 03-21-2024 Note Date & Type Note Facility 03-21-2024 Discharge summary Note Date/Time March 21, 2024 9:23pm [facility] Medical Records Department [address] [place] [id number] Emergency Department Summary 03/21/24 MR#: [id number] Acct: [id number] Name: SEVERIANO LEE Rep #:[id number] : 1945 78 From: Michael Quintanilla MD PCP: Dr. Marciano Anaya DO Status:REG ER Location: ED HPI <MARCELO Mendez - Last Filed: 03/21/24 21:58> History of Present Illness Chief Complaint: Fall Narrative Narrative: Patient presenting due to a head injury that occurred this evening. She reportsthat she tripped over her dog and hit her head against the storm door. There was no LOC, she is not on any blood thinners. She reports multiple abrasions toher left hand. She denies any neck pain or other injury. Tetanus Immunization: Unknown [facility] <MARCELO Mendez - Last Filed: 03/21/24 21:58> [facility] Medical History Acute blood loss anemia Acute kidney injury Acute respiratory failure with hypoxia Anxiety and depression Asthma Chronic pain syndrome GI bleed History of rheumatoid arthritis HLD (hyperlipidemia) Hyperkalemia Hypertension Lactic acidosis Morbid obesity Skin lesion of hand Squamous cell skin cancer Vision disturbance Home Medications albuterol sulfate 90 mcg/actuation aerosol inhaler (ProAir HFA) 1 - 2 puff inhalation Q6H PRN PRN Shortness Of Breath 03/15/15 [History Last Taken 10/09/16] hydrochlorothiazide 25 mg tablet 25 mg PO DAILY BP 03/15/15 [History Last Taken 09/19/20 11:00] methotrexate sodium 2.5 mg tablet 20 mg PO MO Rheumatoid arthritis 03/15/15 [History Last Taken 09/18/20] folic acid 1 mg tablet 1 mg PO DAILY@0800 #0 TABLETS 03/29/15 [Rx Last Taken 09/19/20 11:00] losartan 50 mg tablet 50 mg PO DAILY #30 TABLETS 03/29/15 [Rx Last Taken 09/19/20 11:00] prednisone 10 mg tablet 10 mg PO PRN PRN arthritis flare up 07/07/19 [History Last Taken 3 Days Ago ~09/16/20] sulfasalazine 500 mg tablet 1,000 mg PO BID arthritis 07/07/19 [History Last Taken 09/19/20 11:00] venlafaxine 150 mg capsule,extended release 24 hr 150 mg PO DAILY depression/anxiety 07/07/19 [History Last Taken 09/19/20 11:00] vitamins A,C,B-quyv-ketpic 2,148 mcg-113 mg-45 mg-17.4 mg tablet 1 tab PO DAILY EYE HEALTH 07/07/19 [History Last Taken 09/19/20 11:00] atorvastatin 20 mg tablet 20 mg PO DAILY CHOLESTEROL 09/19/20 [History Last Taken 09/19/20 11:00] magnesium oxide 400 mg PO DAILY SUPPLEMENT 09/19/20 [History Last Taken 09/19/20 11:00] aspirin 81 mg tablet,delayed release 81 mg PO DAILY@0800 #30 tabs 09/20/20 [Rx Last Taken Unknown] levothyroxine 100 mcg tablet mcg PO 07/16/23 [History Last Taken Unknown] meclizine 12.5 mg tablet mg PO 07/16/23 [History Last Taken Unknown] oxycodone-acetaminophen 10 mg-325 mg tablet tab PO 07/16/23 [History Last Taken Unknown] Allergy/AdvReac Type Severity Reaction Status Date / Time adhesive Allergy Other Verified 07/16/23 14:36 amoxicillin trihydrate Allergy Unknown Verified 07/16/23 14:36 [From Augmentin] latex Allergy Unknown Verified 07/16/23 14:36 Penicillins Allergy Unknown Verified 07/16/23 14:36 potassium clavulanate Allergy Unknown Verified 07/16/23 14:36 [From Augmentin] tetracycline Allergy Unknown Verified 07/16/23 14:36 Family History Sister Hypertension Brother Heart disease Surgical History History of appendectomy History of back surgery History of hand surgery History of hip replacement History of knee replacement History of reverse total replacement of left shoulder joint History of tonsillectomy History of tubal ligation Status post reverse total replacement of right shoulder Social History Smoking Status: Former smoker alcohol intake: current substance use type: does not use ROS <MARCELO Mendez - Last Filed: 03/21/24 21:58> ROS ED Constitutional Constitutional ED: Denies chills or fever(s) Cardiovascular Cardiovascular: Denies chest pain Respiratory/Chest Respiratory/Chest: Denies cough or dyspnea Gastrointestinal Gastrointestinal: Denies abdominal pain, nausea or vomiting Musculoskeletal Musculoskeletal: Denies arthralgias or myalgias Integumentary Reports Abrasions Neurologic Neurologic: Reports headache(s); Denies weakness EXAM <MARCELO Mendez - Last Filed: 03/21/24 21:58> Physical Exam Const Vital Signs: 03/21/24 20:34 03/21/24 20:34 Temperature 97.9 F Temperature Source Oral Pulse Rate 96 Respiratory Rate 18 Respiratory Effort Normal Respiratory Depth Normal Respiratory Pattern Normal Blood Pressure 154/66 H Blood Pressure Mean 95 Pulse Ox 95 Oxygen Delivery Method Room Air Room Air Positive well nourished, well developed and no apparent distress General Appearance ED: well developed HEENT Reports normocephalic and head/scalp atraumatic HEENT Narrative: Small forehead hematoma, hematoma to the top of the head Mouth ED: Yes moist mucous membranes normal Eyes PERRL and EOMs intact bilaterally Neck full ROM and supple Chest Wall inspection of chest normal Resp normal respiratory effort and clear to auscultation bilaterally Cardio regular rate and regular rhythm GI soft to palpation, non-tender, non-distended and no masses Back/Spine normal ROM and normal to inspection Extremity full ROM General Extremety ED: Negative for tenderness Neuro oriented x3, CN's II-XII intact bilaterally, moves all extremities, no focal motor deficits and no sensory deficits noted Sensorium / Orientation: awake and alert Psych mental status grossly normal and thought process normal Skin Skin Narrative: Small abrasions to the dorsum of the left 3-5 fingers. Full flexion extension of all fingers of the left hand. <Dr. Michael Quintanilla MD - Last Filed: 03/21/24 22:13> Physical Exam Const Vital Signs: 03/21/24 20:34 03/21/24 20:34 Temperature 97.9 F Temperature Source Oral Pulse Rate 96 Respiratory Rate 18 Respiratory Effort Normal Respiratory Depth Normal Respiratory Pattern Normal Blood Pressure 154/66 H Blood Pressure Mean 95 Pulse Ox 95 Oxygen Delivery Method Room Air Room Air MDM <MARCELO Mendez - Last Filed: 03/21/24 21:58> [facility] Narrative Medical decision making narrative: Patient presenting due to a mechanical fall and head injury that occurred this evening. She was able to get up and ambulate after the fall. She is well-appearing and in no acute distress. She is not on any blood thinners. Head CT will be obtained to rule out intracranial bleed. She does not have any cervicaltenderness or neck pain to indicate need for cervical imaging. Multiple abrasions on the dorsum of the left hand will be cleaned and dressed with bacitracin ointment. Tetanus will be updated. Head imaging is negative for acute findings aside from soft tissue swelling to the scalp and forehead. Patient will be discharged home in stable condition. Radiography Diagnostic Testing: Clinical Impression(s) from Imaging Studies Brain CT 03/21/24 21:08 IMPRESSION: There is no underlying fracture. Soft tissue swelling of the right superior scalp- right forehead. Chronic involutional changes of the brain. Electronically Signed: Tyler Benitez MD at 21:48 EDT , <Dr. Michael Quintanilla MD - Last Filed: 03/21/24 22:13> MDM Radiography Diagnostic Testing: Clinical Impression(s) from Imaging Studies Brain CT 03/21/24 21:08 IMPRESSION: There is no underlying fracture. Soft tissue swelling of the right superior scalp- right forehead. Chronic involutional changes of the brain. Electronically Signed: Tyler Benitez MD at 21:48 EDT , Treatment and Re-Evaluation Narrative: I have personally performed a face to face assessment of the patient and have reviewed the ANGELA Note. I performed a substantive portion of the visit including all aspects of the following. My hodge findings include: History is tripped over her dog and hit her head against nearby door. Also scraped left hand. No loss of consciousness, nausea, vomiting. No anticoagulants. Exam is contusion with minor hematoma frontal high parietal mid scalp, no crepitance or depression. No Guallpa sign. No CSF otorhinorrhea. No facial tenderness. Minor abrasions/skin tears left hand fingers dorsum, able to range fully without difficulty. Medical Decison Making head CT images reviewed as well as the report which I agree with, it is negative for any acute. Patient reassured, we cleansed and dressed abrasion left hand, offered Tylenol will be discharged home with supportive care instructions. Other additions or changes: [None] Discharge Plan Triage Chief Complaint: Fall ED Midlevel Provider: Luisa An ED Provider: Michael Quintanilla Dx/Rx/DC Orders Clinical Impression: Tetanus-diphtheria (Td) vaccination, Abrasion of hand, Head injury, Fall, Hematoma of scalp Instructions: ED Abrasion, ED Head Injury (Adult) Prescriptions: No Action oxycodone-acetaminophen 10-325 mg tablet PO Patient Comments: TAKE 1 TABLET BY MOUTH THREE TIMES DAILY NEEDED levothyroxine 100 mcg tablet PO meclizine 12.5 mg tablet PO methotrexate sodium 2.5 MG tablet 20 mg PO MO Patient Comments: Rheumatoid Arthritis - on Mondays hydrochlorothiazide 25 MG tablet 25 mg PO DAILY Patient Comments: Blood pressure albuterol sulfate [ProAir HFA] 1 PUFF inhaler 1 - 2 puff inhalation Q6H PRN PRN (Reason: Shortness Of Breath) Patient Comments: As needed for Shortness of Breath losartan 50 MG tablet 50 mg PO DAILY Qty: 30 0RF Patient Comments: blood pressure folic acid 1 MG tablet 1 mg PO DAILY@0800 Qty: 0 0RF prednisone 10 MG tablet 10 mg PO PRN PRN (Reason: arthritis flare up) Rx Instructions: for arthritis flare up sulfasalazine 500 MG tablet 1,000 mg PO BID venlafaxine 150 MG capsule,extended release 24hr 150 mg PO DAILY vitamins A,C,G-hcix-ymdbct 1 EACH tablet 1 tab PO DAILY atorvastatin 20 MG tablet 20 mg PO DAILY magnesium oxide 400 MG tablet 400 mg PO DAILY aspirin 81 MG tablet 81 mg PO DAILY@0800 Qty: 30 0RF Primary Care Provider: Marciano Anaya Referrals: Marciano Anaya DO [Primary Care Provider] - 5-7 Days Activity Restrictions/Additional Instructions: Follow-up with your PCP, return for any concerning signs or symptoms. Disposition Disposition: Home, Self Care What to do if you have Problems For any increased pain, shortness of breath, bleeding, nausea or vomiting, chestpain, or any unexpected problems, contact your Primary Care Provider. Call [facility] ([phone]) or report to the closest Emergency Room. Call 911 if necessary. 03/21/242212 <Electronically signed by Michael Quintanilla MD> Cosigner Signature (if applicable): 03/21/[id number] <Electronically signed by Luisa ELDRIDGE> CC: Dr. 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 [facility] Work Phone: Reason for referral (narrative) Note Date & Type Note Facility Reason for referral (narrative) No reason for referral information available [facility] Work Phone: Chief Complaint and Reason for Visit Chief Complaint STANDING ORDER- COPY PCP Chief Complaint STANDING ORDER- COPY PCP PAIN- COPY PCP Chief Complaint STANDING ORDER FROM DR PALOMO - COPY PCP Chief Complaint STANDING ORDER FROM DR PALOMO - COPY PCP STANDING ORDER Chief Complaint STANDING ORDER STANDING ORDER Chief Complaint STANDING ORDER BI LAT SHOULDERS Xray room 1 STANDING ORDER -PAIN- COPY PCP Reason for Visit Ulnar neuropathy at elbow of left upper extremity Ulnar neuropathy at elbow of right upper extremity Chief Complaint STANDING ORDER BI LAT SHOULDERS Xray room 1 STANDING ORDER -PAIN- COPY PCP NODULES Reason for Visit Ulnar neuropathy at elbow of left upper extremity Ulnar neuropathy at elbow of right upper extremity Chief Complaint BI LAT SHOULDERS Xray room 1 STANDING ORDER -PAIN- COPY PCP NODULES 2 DRS/ 2 ORDERS- S/O XRAY Reason for Visit Ulnar neuropathy at elbow of left upper extremity Ulnar neuropathy at elbow of right upper extremity Chief Complaint 2 DRS/ 2 ORDERS- S/O XRAY S/O- PAIN COPY PCP Chief Complaint S/O- PAIN COPY PCP S/O- PAIN- COPY PCP Chief Complaint S/O- PAIN COPY PCP S/O- PAIN- COPY PCP S/O- PAIN- COPY PCP fall Chief Complaint Admit Date S/O- PAIN- COPY PCP December 24, 2024 12:32pm Chief Complaint Admit Date S/O- PAIN- COPY PCP December 24, 2024 12:32pm S/O- PAIN- COPY PCP March 18, 2025 1:46pm Chief Complaint Admit Date S/O- PAIN- COPY PCP December 24, 2024 12:32pm S/O- PAIN- COPY PCP March 18, 2025 1:46pm LEFT HIP PAIN March 25, 2025 1:10p m Chief Complaint Admit Date S/O- PAIN- COPY PCP March 18, 2025 1:46pm LEFT HIP PAIN March 25, 2025 1:10p m S/O-PAIN- COPY PCP June 06, 2025 1:13 pm Family History No Family History Records Found Relationship Condition Age at Onset Recorded Date/T giovanna sister Hypertension Unknown brother Cardiac disease Unknown Advance Directives No Advanced Directives Records Found Advance Directive Response Recorded Date/ Time Advance Directives No October 10, 2016 2:17am Living Will Yes December 07 12:33am Power of Position Clerk No December 07, 2020 12:33am Advance Directive Response Recorded Date/ Time Advance Directives No October 10, 2016 1:17am Living Will Yes December 06 11:33pm Power of Position Clerk No December 06, 2020 11:33pm Advance Directive Response Recorded Date/ Time Advance Directives No October 10, 2016 2:17am Living Will No March 21, 2024 8 :34pm Power of Position Clerk No March 21, 2024 8:34pm Advance Directive Response Recorded Date/ Time Advance Directives No October 10, 2016 2:17am Summary Purpose Additional Source Comments Goals (unrecognized section and content) Goals may be documented in a n alternate sectionGoals may be documented in an alternate sectionGoals may be documented in an alternate sectionGoals may be documented in an alternate sectionGoals may be documented in an alternate sectionGoals may be documented in an alternate sectionGoals may be documented in an alternate sectionGoals may be documented in an alternate sectionGoals may be documented in an alternate sectionGoals may be documented in an alternate sectionGoals may be documented in an alternate sectionGoals may be documented in an alternate sectionGoals may be documented in an alternate sectionGoals may be documented in an alternate sectionGoals may be documented in an alternate sectionGoals may be documented in an alternate section Care Teams (unrecognized sec tion and content) Team Status: Active Member Role Status Dates Dr. Marciano Anaya , DO Family Provider Active Dr. Marciano Anaya , DO Primary Care Provider Active Team Status: Inactive Member Role Status Dates Dr. Marciano Anaya , DO Primary Care Prov ider, Attending Provider, Referring Provider Active Dr. Amina Palomo MD Other Provider Active Team Status: Inactive Member Role Status Dates Dr. Marciano Anaya , DO Primary Care Provider Active Dr. Amina Palomo MD Attending Provider Active Team Status: Inactive Member Role Status Dates Dr. Marciano Anaya , DO Primary Care Provider Active Dr. Amina Palomo MD Attending Provider, Referring Provider Active Team Status: Inactive Member Role Status Dates Dr. Marciano Anaya DO Primary Care Provider, Referrin g Provider Active Dr. Remington Weaver DO Attending Provider Active Team Status: Inactive Member Role Status Dates Dr. Marciano Anaya DO Primary Care Provider Active Dr. Feliberto Washington MD Attending Provider Active Team Status: Inactive Member Role Status Dates Dr. Marciano Anaya DO Primary Care Prov ider, Attending Provider, Referring Provider Active Team Status: Active Member Role Status Dates Dr. Marciano Anaya DO Primary Care Provider Active Dr. Amina Palomo MD Attending Provider, Referring Provider Active Team Status: Inactive Member Role Status Dates Dr. Marciano Anaya DO Primary Care Provider Active Dr. Michael Quintanilla MD Emergency Provider Active Team Status: Active Member Role Status Dates Dr. Marciano Anaya DO Primary Care Provider Active Team Status: Inactive Member Role Status Dates Dr. Marciano Anaya DO Primary Care Provider Active Start: October 25, 2024 End: October 25, 2024 Dr. Marciano Anaya DO Attending Provider Active Start: October 25, 2024 End: October 25, 2024 Dr. Marciano Anaya DO Referring Provider Active Start: October 25, 2024 End: October 25, 2024 Team Status: Inactive Member Role Status Dates Dr. Marciano Anaya DO Primary Care Provider Active Start: December 24, 2024 End: December 24, 2024 Dr. Amina Palomo MD Attending Provider Active Start: December 24, 2024 End: December 24, 2024 Dr. Amina Palomo MD Referring Provider Active Start: December 24, 2024 End: December 24, 2024 Team Status: Inactive Member Role Status Dates Dr. Marciano Anaya DO Primary Care Provider Active Start: February 16, 2025 End: February 16, 2025 Dr. Marciano Anaya DO Attending Provider Active Start: February 16, 2025 End: February 16, 2025 Dr. Marciano Anyaa DO Referring Provider Active Start: February 16, 2025 End: February 16, 2025 Team Status: Inactive Member Role Status Dates Dr. Marciano Anaya DO Primary Care Provider Active Start: March 18, 2025 End: March 18, 2025 Dr. Amina Palomo MD Attending Provider Active Start: March 18, 2025 End: March 18, 2025 Dr. Amina Palomo MD Referring Provider Active Start: March 18, 2025 End: March 18, 2025 Team Status: Inactive Member Role Status Dates Dr. Marciano Anaya DO Primary Care Provider Active Start: March 25, 2025 End: March 25, 2025 Dr. Amina Palomo MD Attending Provider Active Start: March 25, 2025 End: March 25, 2025 Dr. Amina Palomo MD Referring Provider Active Start: March 25, 2025 End: March 25, 2025 Team Status: Active Member Role/Relationship Status Dates Dr. Marciano Anaya DO Primary Care Provider Active Team Status: Inactive Member Role/Relationship Status Dates Dr. Marciano Anaya DO Primary Care Provider Active Start: February 16, 2025 End: February 16, 2025 Dr. Marciano Anaya DO Attending Provider Active Start: February 16, 2025 End: February 16, 2025 Dr. Marciano Anaya DO Referring Provider Active Start: February 16, 2025 End: February 16, 2025 Team Status: Inactive Member Role/Relationship Status Dates Dr. Marciano Anaya DO Primary Care Provider Active Start: March 18, 2025 End: March 18, 2025 Dr. Amina Palomo MD Attending Provider Active Start: March 18, 2025 End: March 18, 2025 Dr. Amina Palomo MD Referring Provider Active Start: March 18, 2025 End: March 18, 2025 Team Status: Inactive Member Role/Relationship Status Dates Dr. Marciano Anaya DO Primary Care Provider Active Start: March 25, 2025 End: March 25, 2025 Dr. Amina Palomo MD Attending Provider Active Start: March 25, 2025 End: March 25, 2025 Dr. Amina Palomo MD Referring Provider Active Start: March 25, 2025 End: March 25, 2025 Team Status: Inactive Member Role/Relationship Status Dates Dr. Marciano Anaya DO Primary Care Provider Active Start: June 06, 2025 End: June 06, 2025 Dr. Amina Palomo MD Attending Provider Active Start: June 06, 2025 End: June 06, 2025 Dr. Amina Palomo MD Referring Provider Active Start: June 06, 2025 End: June 06, 2025 Team Status: Inactive Member Role/Relationship Status Dates Dr. Marciano Anaya DO Primary Care Provider Active Start: March 18, 2025 End: March 18, 2025 Dr. Amina Palomo MD Attending Provider Active Start: March 18, 2025 End: March 18, 2025 Dr. Amina Palomo MD Referring Provider Active Start: March 18, 2025 End: March 18, 2025 Team Status: Inactive Member Role/Relationship Status Dates Dr. Marciano Anaya DO Primary Care Provider Active Start: March 25, 2025 End: March 25, 2025 Dr. Amina Palomo MD Attending Provider Active Start: March 25, 2025 End: March 25, 2025 Dr. Amina Palomo MD Referring Provider Active Start: March 25, 2025 End: March 25, 2025 Team Status: Inactive Member Role/Relationship Status Dates Dr. Marciano Anaya DO Primary Care Provider Active Start: June 06, 2025 End: June 06, 2025 Dr. Amina Palomo MD Attending Provider Active Start: June 06, 2025 End: June 06, 2025 Dr. Amina Palomo MD Referring Provider Active Start: June 06, 2025 End: June 06, 2025 Team Status: Inactive Member Role/Relationship Status Dates Dr. Marciano Anaya DO Primary Care Provider Active Start: July 01, 2025 End: July 01, 2025 Dr. Marciano Anaya DO Attending Provider Active Start: July 01, 2025 End: July 01, 2025 Dr. Marciano Anaya DO Referring Provider Active Start: July 01, 2025 End: July 01, 2025 Team Status: Active Member Role/Relationship Status Dates Dr. Marciano Anaya DO Primary Care Provider Active Start: July 05, 2025 Dr. Marciano Anaya DO Attending Provider Active Start: July 05, 2025 INFORMATION SOURCE (unrecogn ized section and content) DATE CREATED AUTHOR 07/09/2025 [facility] FOR RECORDS PERTAINING TO PATIENTS WHO ARE OR HAVE BEEN ENROLLED IN A CHEMICAL DEPENDENCY/SUBSTANCEABUSE PROGRAM, SOME INFORMATION MAY BE OMITTED. This clinical summary was aggregated from multiple sources. Caution should be exercised in using it in the provision of clinical care. This summary normalizes information from multiple sources, and as a consequence, information in this document may materially change the coding, format and clinical context of patient data. In addition, data may be omitted in some cases. CLINICAL DECISIONS SHOULD BE BASED ON THE PRIMARY CLINICAL RECORDS. [facility] provides no warranty or guarantee of the accuracy or completeness of information in this document.
--- NOTE | 2025-07-09 22:53 | EKG12_ITS ---
Test Reason : SOB Blood Pressure : */* mmHG Vent. Rate : 134 BPM Atrial Rate : * BPM P-R Int : * ms QRS Dur : 72 ms QT Int : 268 ms P-R-T Axes : * 32 105 degrees QTcB Int : 400 ms Atrial fibrillation with rapid ventricular response Abnormal QRS-T angle, consider primary T wave abnormality Abnormal ECG Confirmed by Arturo Man ([id number]), editorial clerk SARA CRUZ ([id number]) on 07/12/2025 10:34:01 AM Referred By: Confirmed By: Arturo Man
[2025-07-09] MEDS: 0.9% Normal Saline (500mL Bag) 500 ML IV (22:54)
[2025-07-09 22:59] LABS: Hematocrit 28.3 % (37-47); Hemoglobin 8.9 g/dL (12.0-15.0); Immature Granulocytes Count 0.080 X10^3/uL (0.0-0.0); Mean Corp Hgb Conc 31.4 g/dL (32-36); Mean Corpuscular Volume 100.4 fL (81-99); Mean Platelet Vol. 11.1 fl (6.2-12.0); NRBC Flagged by Analyzer 0.2 % (0-5); Platelet Count 274 K/mm3 (150-450); RBC Distribution Width CV 15.5 % (11.6-14.6); RBC Distribution Width SD 55.7 fl (35.1-43.9); Red Blood Count 2.82 M/mm3 (4.2-5.4); White Blood Count 11.4 K/mm3 (4.4-11.0)
--- NOTE | 2025-07-09 23:15 | EDS_ITS ---
HPI History of Present Illness Chief Complaint: Shortness of Breath Narrative Narrative: Patient is a 79-year-old female presenting to the emergency department for dyspnea and melena. Patient has a past medical history of asthma/COPD reports stopped smoking years ago, CAD, obesity and recently diagnosed atrial fibrillation by her primary care doctor. She reports on 07/01 she went to see her primary care doctor due to having chest tightness across the front of her chest and feeling fatigued. She was also experiencing shortness of breath at this time. An EKG was done which showed atrial fibrillation. She was also having lower extremity edema at that time and was placed on Lasix as well as Eliquis. She states that since then the dyspnea has not improved. She denies any chest pain since seeing her physician a week ago. Reports that the shortness of breath is worse with exertion and at rest she does not feel short of breath. Denies feeling any palpitations. Also reports that this evening she developed some epigastric abdominal pain and nausea which is now resolved but did start having melanotic stool yesterday. Again she was just started on Eliquis about a week ago. On review last echo was September 2020 and showed an EF of 65%. She denies any fever, chills, cough, sore throat, chest pain, vomiting, dysuria or hematuria. [facility] Medical History Atrial fibrillation Squamous cell skin cancer Skin lesion of hand Acute kidney injury Acute respiratory failure with hypoxia Lactic acidosis Vision disturbance Chronic pain syndrome Acute blood loss anemia Anxiety and depression Asthma HLD (hyperlipidemia) Morbid obesity GI bleed Hyperkalemia Hypertension History of rheumatoid arthritis Home Medications ?Medication ?Instructions ?Recorded ?Last Taken ?Type albuterol sulfate 90 mcg/actuation 1 - 2 puff inhalati on Q6H PRN PRN 03/15/15 10/09/16 History aerosol inhaler (ProAir HFA) Shortness Of Breath hydrochlorothiazide 25 mg tablet 25 mg PO DAILY BP 04/2409/19/20 11:00 History methotrexate sodium 2.5 mg tablet 20 mg PO MO Rheumato id arthritis 03/15/15 09/18/20 History folic acid 1 mg tablet 1 mg PO DAILY@0800 #0 TABLET S 03/29/15 09/19/20 11:00 Rx losartan 50 mg tablet 50 mg PO DAILY #30 TABLETS 0 03/29/15 09/19/20 11:00 Rx prednisone 10 mg tablet 10 mg PO PRN PRN arthritis f lare up 07/07/19 3 Days Ago History ~09/16/20 sulfasalazine 500 mg tablet 1,000 mg PO BID arthritis 07/07/19 09/19/20 11:00 History venlafaxine 150 mg 150 mg PO DAILY depression/a nxiety 07/07/19 09/19/20 11:00 History capsule,extended release 24 hr vitamins A,C,J-dfct-upbeyc 2,148 1 tab PO DAILY EYE HE ALTH 07/07/19 09/19/20 11:00 History mcg-113 mg-45 mg-17.4 mg tablet atorvastatin 20 mg tablet 20 mg PO DAILY CHOLESTEROL 1 11/19/19 09/19/20 11:00 History magnesium oxide 400 mg PO DAILY SUPPLEMENT 1 11/19/19 09/19/20 11:00 History aspirin 81 mg tablet,delayed 81 mg PO DAILY@0800 #30 t abs 09/20/20 Unknown Rx release levothyroxine 100 mcg tablet mcg PO 07/16/23 Unknown H istory meclizine 12.5 mg tablet mg PO 07/16/23 Unknown Histo ry oxycodone-acetaminophen 10 mg-325 tab PO 07/16/23 Unkn own History mg tablet amlodipine 5 mg tablet 5 mg PO DAILY 07/09/25 Unkno wn History apixaban 5 mg tablet (Eliquis) 5 mg PO BID 07/09/25 Un known History atorvastatin 40 mg tablet 40 mg PO DAILY cholesterol 0 07/09/25 Unknown History furosemide 40 mg tablet 40 mg PO DAILY 07/09/25 Unkn own History metoprolol succinate 50 mg 50 mg PO DAILY 07/09/25 Unk nown History tablet,extended release 24 hr Allergy/AdvReac Type Severity Reaction Status Date / Time adhesive Allergy Other Verified 07/09/25 22:26 amoxicillin trihydrate (From Allergy Unknown Verified 07/09/25 22:26 Augmentin) latex Allergy Unknown Verified 07/09/25 22:26 Penicillins Allergy Unknown Verified 07/09/25 22:26 potassium clavulanate (From Allergy Unknown Verified 07/09/25 22:26 Augmentin) tetracycline Allergy Unknown Verified 07/09/25 22:26 Family History Sister Hypertension Brother Heart disease Surgical History History of hand surgery History of reverse total replacement of left shoulder joint History of tonsillectomy History of appendectomy History of tubal ligation History of knee replacement History of hip replacement History of back surgery Status post reverse total replacement of right shoulder Social History Smoking Status: Former smoker alcohol intake: current substance use type: does not use ROS ROS ED ROS Narrative see HPI EXAM Physical Exam Narrative Exam Narrative: Vital signs: Reviewed General: Alert and orientedx3. No acute distress. Chronically ill-appearing HEENT: Head is normocephalic and atraumatic, sinuses nontender, pupils equal round and reactive. Pale conjunctive. Nares are patent. Oropharynx and throat exams normal. Neck: Supple without lymphadenopathy nontender Cardiovascular: Irregularly irregular rate and rhythm, no murmurs. No rubs or gallops. Normal S1 and S2 Respiratory: Clear to auscultation bilaterally. No wheezes, rales, rhonchi. On RA. Abdominal: Soft and mildly tender to palpation in RLQ. Normal bowel sounds. No guarding or rebound. Nonsurgical abdomen : Done with oil and gas principal RN at bedside. No visualized hemorrhoids or fissures. Grossly melanotic stool, no bright red blood noted. Extremities: 1+ pitting edema bilaterally. No asymmetry to the edema. No erythema or warmth of legs. No tenderness. No bruising. Normal range of motion. Normal sensation. Skin: No rash or redness. Neurological: Cranial nerves II through XII are grossly intact. Normal strength and sensation. Normal cerebellar function The rest of the physical exam is unremarkable Const Vital Signs: 07/09/25 22:27 07/09/25 22:31 07/09/25 22:32 Temperature 98.6 F 98.6 F Temperature Source Oral Oral Pulse Rate 135 H 135 H Respiratory Rate 25 H 25 H Respiratory Effort Short of Breath Respiratory Pattern Tachypnea Blood Pressure 93/55 L 93/55 L Blood Pressure Mean 67 67 Pulse Ox 95 96 Oxygen Delivery Method Room Air Room Air Room Air 07/09/25 22:51 07/09/25 23:31 07/10/25 00:00 Temperature 99.4 F H Temperature Source Oral Pulse Rate 126 H 126 H Respiratory Rate 22 H 24 H Respiratory Effort Respiratory Pattern Blood Pressure 121/88 H 106/62 Blood Pressure Mean 99 76 Pulse Ox 95 95 95 Oxygen Delivery Method Room Air Room Air Room Air 07/10/25 00:00 07/10/25 00:04 07/10/25 01:00 Temperature 99.4 F H 99.4 F H Temperature Source Oral Oral Pulse Rate 122 H 130 H 119 H Respiratory Rate 24 H 13 22 H Respiratory Effort Respiratory Pattern Blood Pressure 114/67 116/69 Blood Pressure Mean 82 84 Pulse Ox 98 95 Oxygen Delivery Method Room Air Room Air 07/10/25 01:10 07/10/25 02:00 Temperature 99.4 F H Temperature Source Oral Pulse Rate 112 H 103 H Respiratory Rate 22 H 21 H Respiratory Effort Respiratory Pattern Blood Pressure 109/67 97/74 Blood Pressure Mean 81 81 Pulse Ox 96 97 Oxygen Delivery Method Room Air Room Air MDM MDM MDM Narrative Medical decision making narrative: Patient is a 79-year-old female presenting to the emergency department for dyspnea and melena. Patient was seen and examined. Vitals are stable. She is in A-fib with a rate of 135. BP is on the lower side at 93/55. She is afebrile. Saturating 95% on room air. Differential includes but is not limited to: CHF exacerbation, COPD exacerbation, ACS, pneumonia, GI bleed EKG shows A-fib with RVR. No ischemic changes noted. small fluid bolus started for mild hypotension and a fib. CBC with a mild leukocytosis of 11.4. Hemoglobin of 8.9, on review dropped from 11.9 on 06/06/25. Fecal occult positive. Protonix given. Type and screen ordered, do not think the patient needs blood products at this time. CMP with an elevated BUN of 37 and BUN/Cr ratio consistent with a upper GI bleed. No GI physician instructor physical education at this time to discuss for possible EGD tomorrow. Mild anion gap of 18. Lipase within normal limits. BNP is similar to previous on 07/05/25 at 2359. Troponin of 20, incre ased from baseline on 07/01/25 of 11. However would expect this given patient has been in atrial fibrillation for the past week. Reflex of 14. Patient does not appear acutely fluid overloaded on exam. No wheezing, but does have history of COPD. I suspect her GI bleed is what triggered the a fib RVR episode. CT shows hyperdense material in the dependent aspect of the gastric body which may repres ent acute hemorrhagic products, no other acute findings. Chronic findings that can be seen in the report. Patient's blood pressure was more stable after half a liter of fluids in the 110s systolic. Lopressor 5 mg IV orderedx3. Patients BP tolerated 2 pushes, rate more controlled in the 90s-110s still a fib. With the acute drop in hemoglobin and new onset a fib, patient will require admission. Di scussed admission with patient and family at bedside. They are agreeable. Patient admitted to hospitalist, Dr. Johnson for further management. Clinical impression: A fib with RVR dyspnea UGIB acute on chronic anemia History & Record Review Discussion w/independent historian: Patient and Family Additional record(s) reviewed:: Prior outpatient record, Prior ED visit and Prior labs Lab Data Attestation: I reviewed the patient's lab results. Labs: Laboratory Results - last 24 hr 07/09/25 07/10/25 07/10/25 22:31 00:13 00:31 WBC 11.4 H RBC 2.82 L Hgb 8.9 L Hct 28.3 L MCV 100.4 H MCH 31.6 MCHC 31.4 L RDW Std Deviation 55.7 H RDW Coeff of Espinoza 15.5 H Plt Count 274 MPV 11.1 Immature Gran % (Auto) 0.700 Neut % (Auto) 78.3 H Lymph % (Auto) 17.[address] [place] % (Auto) 2.7 Eos % (Auto) 0.2 Baso % (Auto) 0.9 Absolute Neuts (auto) 8.9 H Absolute Lymphs (auto) 1.96 Nucleated RBC % 0.2 Sodium 138 Potassium 4.9 Chloride 102 Carbon Dioxide 18.9 L Anion Gap 18 H BUN 37 H Creatinine 1.11 Estim Creat Clear Calc 52.29 Est GFR (MDRD) Non-Af 51 L BUN/Creatinine Ratio 33.1 H Glucose 195 H Calcium 9.0 Magnesium 1.9 Total Bilirubin 0.31 AST 14 ALT 13 Alkaline Phosphatase 100 Troponin T High Sens 20 H D Troponin T Hi Sens 2 Hr 14 NT pro BNP II 2359 H Total Protein 6.0 Albumin 3.5 Globulin 2.5 Albumin/Globulin Ratio 1.4 Lipase 31 Urine Color Yellow Urine Clarity Clear Urine pH 6.0 Ur Specific [place] 1.010 Urine Protein 30 H Urine Glucose (UA) Normal Urine Ketones Negative Urine Occult Blood Negative Urine Nitrite Negative Urine Bilirubin Negative Urine Urobilinogen Normal Ur Leukocyte Esterase Negative Urine RBC 0 SEEN Urine WBC 0 SEEN Ur Squamous Epith Cells 0 SEEN Urine Bacteria 0 SEEN Urine Mucus 0 SEEN Blood Type A POSITIVE Antibody Screen NEGATIVE Radiography Chest X-Ray - ED: 2 View, Read by ED Physician, Normal, No Acute Disease and No Infiltrates Diagnostic Testing: Clinical Impression(s) from Imaging Studies Abdomen/Pelvis CT 07/09/25 22:45 IMPRESSION: Interval appearance of mild pericardial effusion. Interval appearance of mild bilateral pleural effusions. Associated passive atelectatic airspace disease of the lower lobes. Hyperdense material is noted in the dependent aspect of the gastric body. Findings may represent acute hemorrhagic products. No precontrast images are provided to evaluate for active bleeding. Obtaining delayed phase images may increase the sensitivity of the exam to evaluate the significance of hyperdense material in the gastric lumen. Scattered right renal simple cysts are noted with the largest measuring 1.5 cm. Fat containing umbilical hernia without incarceration. Uncomplicated colonic diverticulosis. Bilateral hip prostheses are noted. Moderate diffuse spondylosis. Unremarkable low lumbar fusion metallic hardware. Unchanged bilateral vascular calcifications in the kidneys. Chronic posterior soft tissue thickening overlying the sacrococcygeal junction, unchanged. Reading Location: [place] [id number] Chest X-Ray 07/09/25 23:19 IMPRESSION: NO ACUTE FINDINGS. Reading [facility] Discharge Plan Triage Chief Complaint: Shortness of Breath ED Provider: Arlin Guaman Dx/Rx/DC Orders Prescriptions: No Action oxycodone-acetaminophen 10-325 mg tablet PO Patient Comments: TAKE 1 TABLET BY MOUTH THREE TIMES DAILY NEEDED levothyroxine 100 mcg tablet PO meclizine 12.5 mg tablet PO methotrexate sodium 2.5 MG tablet 20 mg PO MO Patient Comments: Rheumatoid Arthritis - on Mondays hydrochlorothiazide 25 MG tablet 25 mg PO DAILY Patient Comments: Blood pressure albuterol sulfate [ProAir HFA] 1 PUFF inhaler 1 - 2 puff inhalation Q6H PRN PRN (Reason: Shortness Of Breath) Patient Comments: As needed for Shortness of Breath losartan 50 MG tablet 50 mg PO DAILY Qty: 30 0RF Patient Comments: blood pressure folic acid 1 MG tablet 1 mg PO DAILY@0800 Qty: 0 0RF prednisone 10 MG tablet 10 mg PO PRN PRN (Reason: arthritis flare up) Rx Instructions: for arthritis flare up sulfasalazine 500 MG tablet 1,000 mg PO BID venlafaxine 150 MG capsule,extended release 24hr 150 mg PO DAILY vitamins A,C,F-uunq-upcxsz 1 EACH tablet 1 tab PO DAILY atorvastatin 20 MG tablet 20 mg PO DAILY magnesium oxide 400 MG tablet 400 mg PO DAILY aspirin 81 MG tablet 81 mg PO DAILY@0800 Qty: 30 0RF furosemide 40 mg tablet 40 mg PO DAILY atorvastatin 40 mg tablet 40 mg PO DAILY metoprolol succinate 50 mg tablet extended release 24 hr 50 mg PO DAILY amlodipine 5 mg tablet 5 mg PO DAILY Eliquis 5 mg tablet 5 mg PO BID Primary Care Provider: Marciano Anaya Referrals: Marciano Anaya DO [Primary Care Provider] - Print Language: Portuguese
[2025-07-09 23:19] LABS: Lipase 31 U/L (13-75); Magnesium 1.9 mg/dL (1.5-2.2); Pro- Brain NATRIURETIC PEPTIDE 2359 pg/mL (<=1800); Troponin T High Sensitivity 20 ng/L (<=14)
--- NOTE | 2025-07-09 23:19 | RAD_ITS ---
PROCEDURE: CHEST PA AND LATERAL 07/09/2025 REASON FOR EXAM: CHEST PAIN TECHNIQUE: Procedure Code: RADCXR Modality: DX Procedure: CHEST PA AND LATERAL COMPARISON: 02/17/2020 FINDINGS: Hardware: None. Heart: The heart size is normal. Mediastinum: The mediastinal contour is unremarkable. Lungs: The lungs are clear. Bones: Bilateral shoulder arthroplasty. No acute fractures. RAD/Chest PA and Lateral IMPRESSION: NO ACUTE FINDINGS. Reading [facility]
[2025-07-09 23:20] LABS: AST(SGOT) 14 U/L (<=31); Alanine Aminotransfer ALT/SGPT 13 U/L (<=34); Albumin, Serum 3.5 g/dL (3.4-4.8); Alkaline Phosphatase 100 U/L (35-104); Anion Gap 18 (5-15); BUN 37 mg/dL (4-19); BUN/Creat Ratio 33.1 RATIO (10-20); Calcium,Total 9.0 mg/dL (7.6-11.0); Carbon Dioxide 18.9 mmol/L (21.0-32.0); Chloride 102 mmol/L (98-108); Estimated Creatinine Clearance 52.29 ml/min (50-250); Globulin 2.5 g/dL (2.2-4.2); Glucose 195 mg/dL (70-99); Potassium 4.9 mmol/L (3.3-5.1)
[2025-07-09 23:31] VITALS: BP 121/88; PULSE 126; RESP 22; TEMP 37.4; O2SAT 95
[2025-07-10] VITALS (20 sets, daily range): BP systolic 97–148; BP diastolic 54–112; PULSE 71–130; RESP 13–24; TEMP 36.1–37.4; O2SAT 92–99; BMI 41.1; BMI 41.2
[2025-07-10] MEDS: Pantoprazole Sodium 40 MG in 0.9% Normal Saline (100mL MB+) 100 ML 300 MG IV
[2025-07-10 00:18] LABS: Mucous, Urine 0 SEEN /hpf (<or=2+); Red Blood Cells-Urine 0 SEEN /hpf (0-5); Squamous Epithelial Cells - UA 0 SEEN /hpf (5-10)
[2025-07-10 00:23] LABS: Color, Urine Yellow (Yellow); Glucose, Dipstick Normal (Normal); Ketone-Dipstick Negative (Negative); Leukocyte Esterase-Dipstick Negative /ul (Negative); Nitrite-Dipstick Negative (Negative); Occult Blood-Urine Negative /ul (Negative); Protein-Dipstick 30 mg/dl (Negative); Specific Gravity, Urine 1.010 (1.002-1.030); Urine Bilirubin Dipstick Negative (Negative)
[2025-07-10 01:18] LABS: Troponin T High Sens 2 HR 14 ng/L (<=14)
--- NOTE | 2025-07-10 02:26 | HP.PCM.HOS_ITS ---
[facility] - General General Date of Admission: 07/10/25 Date of Service: 07/10/25 Chief Complaint: SOB and Fatigue. [facility] Narrative SEVERIANO LEE, is a 79 F with a past medical history of essential hypertension; on amlodipine, furosemide, hydrochlorothiazide and metoprolol daily, hyperlipidemia; on atorvastatin, hypothyroidism; on levothyroxine, morbid obesity (class III); with BMI of 42.6 this admission, history of CAD; on baby aspirin daily, recently diagnosed atrial fibrillation; on apixaban twice daily, former tobacco abuse; with subsequent asthma/COPD, history of RA; on methotrexate, sulfasalazine plus as needed prednisone, history of squamous cell skin cancer, depression with anxiety; on venlafaxine, history of vertigo; on meclizine and OA; s/p bilateral THR's, bilateral TKR's, Right total shoulder replacement (2014) plus lumbar fusion (2012) with resultant chronic pain syndrome; on oxycodone as needed who presents to [facility] ER complaining of shortness of breath and fatigue. Ms. Lee reports her symptoms began on July 01, 2025 when she was to see her primary care doctor due to having chest tightness across the front of her chest and feeling fatigued with bilateral lower extremity edema culminating with the patient subsequently having EKG that revealed atrial fibrillation; with rapid ventricular response. She was then started on furosemide as well as apixaban without ensuing improvement. She states her shortness of breath is worse with new dyspnea on exertion that she denies shortness of breath at rest followed by the development of melanotic stool on July 09, 2025. Then earlier in the evening on July 10, 2025 she developed epigastric abdominal pain and nausea so she decided to come in for further evaluation and treatment. She denies associated fever, chills, runny nose, sore throat, ear pain, vomiting, constipation, chest pain, dysuria, hematuria, headache or rash. In the ER she was noted to have laboratory evidence of ABLA with hemoglobin of 8.9 g/dL present on admission (down from 11.9 g/dL on June 06, 2025) with a confirmatory elevated BUN of 37 mg/dL and normal creatinine of 1.11 mg/dL suggestive of Upper GI Bleed suspected to be due to Adverse Drug Reaction to recently started DOAC with corresponding CT scan of the abdomen pelvis that revealed hyperdense material noted in the dependent aspect of the gastric body with findings that may represent acute hemorrhage products complicated by EKG evidence of Atrial Fibrillation; with RVR that required treatment with IV metoprolol compounded by elevated NT pro-BNP II of 2,359 pg/mL present on admission consistent with AE CHF; with preserved LVEF with CT scan revealing interval appearance of mild bilateral pleural effusions with mild pericardial effusion along with additional laboratory evidence of Leukocytosis of 11.4 K present on admission suspect to be due to acute stress response with no signs of infection on UA or imaging. She was then admitted to the PCU for ongoing care for a stay that is expected to extend beyond 2 midnights. [facility] Medical History Atrial fibrillation Squamous cell skin cancer Skin lesion of hand Acute kidney injury Acute respiratory failure with hypoxia Lactic acidosis Vision disturbance Chronic pain syndrome Acute blood loss anemia Anxiety and depression Asthma HLD (hyperlipidemia) Morbid obesity GI bleed Hyperkalemia Hypertension History of rheumatoid arthritis Home Medications ?Medication ?Instructions ?Recorded ?Last Taken ?Type albuterol sulfate 90 mcg/actuation 1 - 2 puff inhalati on Q6H PRN PRN 03/15/15 10/09/16 History aerosol inhaler (ProAir HFA) Shortness Of Breath hydrochlorothiazide 25 mg tablet 25 mg PO DAILY BP 04/2409/19/20 11:00 History methotrexate sodium 2.5 mg tablet 20 mg PO MO Rheumato id arthritis 03/15/15 09/18/20 History folic acid 1 mg tablet 1 mg PO DAILY@0800 #0 TABLET S 03/29/15 09/19/20 11:00 Rx losartan 50 mg tablet 50 mg PO DAILY #30 TABLETS 0 03/29/15 09/19/20 11:00 Rx prednisone 10 mg tablet 10 mg PO PRN PRN arthritis f lare up 07/07/19 3 Days Ago History ~09/16/20 sulfasalazine 500 mg tablet 1,000 mg PO BID arthritis 07/07/19 09/19/20 11:00 History venlafaxine 150 mg 150 mg PO DAILY depression/a nxiety 07/07/19 09/19/20 11:00 History capsule,extended release 24 hr vitamins A,C,I-ebws-bgyijl 2,148 1 tab PO DAILY EYE HE ALTH 07/07/19 09/19/20 11:00 History mcg-113 mg-45 mg-17.4 mg tablet atorvastatin 20 mg tablet 20 mg PO DAILY CHOLESTEROL 1 11/19/19 09/19/20 11:00 History magnesium oxide 400 mg PO DAILY SUPPLEMENT 1 11/19/19 09/19/20 11:00 History aspirin 81 mg tablet,delayed 81 mg PO DAILY@0800 #30 t abs 09/20/20 Unknown Rx release levothyroxine 100 mcg tablet mcg PO 07/16/23 Unknown H istory meclizine 12.5 mg tablet mg PO 07/16/23 Unknown Histo ry oxycodone-acetaminophen 10 mg-325 tab PO 07/16/23 Unkn own History mg tablet amlodipine 5 mg tablet 5 mg PO DAILY 07/09/25 Unkno wn History apixaban 5 mg tablet (Eliquis) 5 mg PO BID 07/09/25 Un known History atorvastatin 40 mg tablet 40 mg PO DAILY cholesterol 0 07/09/25 Unknown History furosemide 40 mg tablet 40 mg PO DAILY 07/09/25 Unkn own History metoprolol succinate 50 mg 50 mg PO DAILY 07/09/25 Unk nown History tablet,extended release 24 hr Allergy/AdvReac Type Severity Reaction Status Date / Time adhesive Allergy Other Verified 07/09/25 22:26 amoxicillin trihydrate (From Allergy Unknown Verified 07/09/25 22:26 Augmentin) latex Allergy Unknown Verified 07/09/25 22:26 Penicillins Allergy Unknown Verified 07/09/25 22:26 potassium clavulanate (From Allergy Unknown Verified 07/09/25 22:26 Augmentin) tetracycline Allergy Unknown Verified 07/09/25 22:26 Family History Sister Hypertension Brother Heart disease Surgical History History of hand surgery History of reverse total replacement of left shoulder joint History of tonsillectomy History of appendectomy History of tubal ligation History of knee replacement History of hip replacement History of back surgery Status post reverse total replacement of right shoulder Social History Smoking Status: Former smoker alcohol intake: current substance use type: does not use ROS ROS Narrative Review of Systems: Constitutional: Patient denies fever or chills. Eyes: Patient denies change in vision or discharge from eyes. ENT: Patient denies runny nose, sore throat or ear pain. Resp: Patient admits to shortness of breath or chest pain denies cough. CV: Patient admits to ~1+ bilateral lower extremity edema but she denies chest pain, palpitations or heart racing. GI: Patient denies abdominal pain, nausea, vomiting, diarrhea or constipation. : Patient denies dysuria or hematuria. MSK: Patient denies arthralgias or myalgias. Skin: Patient denies rash. Psych: Patient denies symptoms of uncontrolled anxiety. Neuro: Patient denies headache, paresthesias or focal neurologic deficits. Allergy: Patient denies lip swelling, tongue swelling or urticaria. Hematology: Patient notes to melanotic stools after apixaban was added to daily baby aspirin as per HPI. Endocrinology: Patient denies polyuria, polydipsia, polyphagia or heat/cold intolerance. 14 point ROS otherwise negative except for positives noted above in HPI. Vital Signs Vital Signs Vital Signs: 07/09/25 22:27 07/09/25 22:31 07/09/25 22:32 Temperature 98.6 F 98.6 F Temperature Source Oral Oral Pulse Rate 135 H 135 H Respiratory Rate 25 H 25 H Respiratory Effort Short of Breath Respiratory Pattern Tachypnea Blood Pressure 93/55 L 93/55 L Blood Pressure Mean 67 67 Pulse Ox 95 96 Oxygen Delivery Method Room Air Room Air Room Air 07/09/25 22:51 07/09/25 23:31 07/10/25 00:00 Temperature 99.4 F H Temperature Source Oral Pulse Rate 126 H 126 H Respiratory Rate 22 H 24 H Respiratory Effort Respiratory Pattern Blood Pressure 121/88 H 106/62 Blood Pressure Mean 99 76 Pulse Ox 95 95 95 Oxygen Delivery Method Room Air Room Air Room Air 07/10/25 00:00 07/10/25 00:04 07/10/25 01:00 Temperature 99.4 F H 99.4 F H Temperature Source Oral Oral Pulse Rate 122 H 130 H 119 H Respiratory Rate 24 H 13 22 H Respiratory Effort Respiratory Pattern Blood Pressure 114/67 116/69 Blood Pressure Mean 82 84 Pulse Ox 98 95 Oxygen Delivery Method Room Air Room Air 07/10/25 01:10 07/10/25 02:00 Temperature 99.4 F H Temperature Source Oral Pulse Rate 112 H 103 H Respiratory Rate 22 H 21 H Respiratory Effort Respiratory Pattern Blood Pressure 109/67 97/74 Blood Pressure Mean 81 81 Pulse Ox 96 97 Oxygen Delivery Method Room Air Room Air Weight Weight: 255 lb 11.779 oz Body Mass Index (BMI) 42.5 Physical Exam Const alert, oriented x3 and no apparent distress Constitutional Narrative: Morbidly obese and chronically ill and appearance. General Appearance: cooperative HEENT normocephalic, head/scalp atraumatic, hearing grossly normal bilaterally and moist oral mucous membranes Eyes PERRL, EOMs intact bilaterally and conjunctivae normal Neck no lymphadenopathy, supple and no JVD Resp normal respiratory effort, no retractions, no use of accessory muscles and clear to auscultation bilaterally Cardio Cardio Narrative: Irregularly irregular at ~103 bpm. GI normal to inspection, nondistended, normoactive bowel sounds, soft to palpation, non-tender and non-distended GI Narrative: Morbidly obese. Extremity Extremity Narrative: ~1+ bilateral lower extremity pitting edema. Skin Skin Narrative: Patient has no evidence of rash. Neuro oriented x3, CN's II-XII intact bilaterally, moves all extremities and no focal motor deficits Sensorium / Orientation: awake, alert, oriented to person, oriented to place and oriented to time Speech: speech normal Psych affect normal Results Medical Records Data Attestation: I reviewed the patient's medical records Lab / Micro Data Attestation: I reviewed the patient's lab results. 07/09/25 22:31 07/09/25 22:31 Labs: Laboratory Results - last 24 hr 07/09/25 22:31: WBC 11.4 H, RBC 2.82 L, Hgb 8.9 L, Hct 28.3 L, MCV 100.4 H, MCH 31.6, MCHC 31.4 L, RDW Std Deviation 55.7 H, RDW Coeff of [place]ino[place] 15.5 H, Plt Count 274, MPV 11.1, Immature Gran % (Auto) 0.700, Neut % (Auto) 78.3 H, Lymph % (Auto) 17.2 L, [place] % (Auto) 2.7, Eos % (Auto) 0.2, Baso % (Auto) 0.9, Absolute Neuts (auto) 8.9 H, Absolute Lymphs (auto) 1.96, Nucleated RBC % 0.2, Sodium 138, Potassium 4.9, Chloride 102, Carbon Dioxide 18.9 L, Anion Gap 18 H, BUN 37 H, Creatinine 1.11, Estim Creat Clear Calc 52.29, Est GFR (MDRD) Non-Af 51 L, B UN/Creatinine Ratio 33.1 H, Glucose 195 H, Calcium 9.0, Magnesium 1.9, Total Bilirubin 0.31, AST 14, ALT 13, Alkaline Phosphatase 100, Troponin T High Sens 20 H D, NT pro BNP II 2359 H, Total Protein 6.0, Albumin 3.5, Globulin 2.5, Albumin/Globulin Ratio 1.4, Lipase 31, Blood Type A POSITIVE, Antibody Screen NEGATIVE 07/10/25 00:13: Urine Color Yellow, Urine Clarity Clear, Urine pH 6.0, Ur Specific [place] 1.010, Urine Protein 30 H, Urine Glucose (UA) Normal, Urine Ketones Negative, Urine Occult Blood Negative, Urine Nitrite Negative, Urine Bilirubin Negative, Urine Urobilinogen Normal, Ur Leukocyte Esterase Negative, Urine RBC 0 SEEN, Urine WBC 0 SEEN, Ur Squamous Epith Cells 0 SEEN, Urine Bacteria 0 SEEN, Urine Mucus 0 SEEN 07/10/25 00:31: Troponin T Hi Sens 2 Hr 14 Micro: Microbiology 07/09/25 22:31 Stool Stool Occult Blood (FRANSICO) - Final Occult Blood Positive Imaging Radiology Impression Abdomen/Pelvis CT 07/09/25 22:45 IMPRESSION: Interval appearance of mild pericardial effusion. Interval appearance of mild bilateral pleural effusions. Associated passive atelectatic airspace disease of the lower lobes. Hyperdense material is noted in the dependent aspect of the gastric body. Findings may represent acute hemorrhagic products. No precontrast images are provided to evaluate for active bleeding. Obtaining delayed phase images may increase the sensitivity of the exam to evaluate the significance of hyperdense material in the gastric lumen. Scattered right renal simple cysts are noted with the largest measuring 1.5 cm. Fat containing umbilical hernia without incarceration. Uncomplicated colonic diverticulosis. Bilateral hip prostheses are noted. Moderate diffuse spondylosis. Unremarkable low lumbar fusion metallic hardware. Unchanged bilateral vascular calcifications in the kidneys. Chronic posterior soft tissue thickening overlying the sacrococcygeal junction, unchanged. Reading [facility] Chest X-Ray 07/09/25 23:19 IMPRESSION: NO ACUTE FINDINGS. Reading Location: [facility] Assessment & Plan Assessment/Plan (1) ABLA (acute blood loss anemia): (2) Melanotic stools: (3) Upper GI bleed: (4) Adverse drug reaction: QUALIFIERS: Encounter type: initial encounter Qualified Code(s): T50.905A - Adverse effect of unspecified drugs, medicaments and biological substances, initial encounter (5) Atrial fibrillation with RVR: (6) Acute exacerbation of chronic heart failure: (7) SCHULTZ (dyspnea on exertion): (8) Fatigue: QUALIFIERS: Fatigue type: unspecified Qualified Code(s): R53.83 - Other fatigue (9) Morbid obesity with BMI of 40.0-44.9, adult: (10) Leukocytosis: QUALIFIERS: Leukocytosis type: unspecified Qualified Code(s): D 72.829 - Elevated white blood cell count, unspecified PLAN: Plan 1. ABLA with hemoglobin of 8.9 g/dL present on admission (down from 11.9 g/dL on June 06, 2025) with a confirmatory elevated BUN of 37 mg/dL and normal creatinine of 1.11 mg/dL suggestive of Upper GI Bleed - Admit to PCU. Keep strict n.p.o. Continue IV pantoprazole infusion began in ER and Hemoccult stools. Patient already typed and screened with plan to transfuse if hemoglobin drops to less than 7 g/dL. Give ondansetron IV as needed for nausea vomiting. Give acetaminophen IL for [id number] (level 1-5/10) pain or fever. Give morphine IV as needed for severe (level 6-10/10) pain. Finally, we will consult gastroenterology to see this patient on rounds in the a.m. for further recommendations regarding EGD this admission with help appreciated in advance. 2. Adverse Drug Reaction to recently started DOAC added to daily BASA used to treat CAD with corresponding CT scan of the abdomen pelvis that revealed h yperdense material noted in the dependent aspect of the gastric body with findings that may represent Acute Hemorrhage products likely causing #1 with suspected underlying PUD - Hold apixaban until further notice. 3. EKG evidence of Atrial Fibrillation; with RVR that required treatment with IV metoprolol complicating #1 & #2 - We we will give as needed IV digoxin to keep heart rate less than 100 bpm to avoid unnecessarily lowering blood pressure. Check new echocardiogram with last one done here in September 2020 that revealed LVEF ~65% with stage I diastolic dysfunction. 4. Elevated NT pro-BNP II of 2,359 pg/mL present on admission consistent with AE of chronic diastolic CHF; with preserved LVEF with corresponding CT scan revealing interval appearance of mild bilateral pleural effusions with mild pericardial effusion and clinical complaints of SCHULTZ and Fatigue attributable to #1 - #3 - Give furosemide IV daily if blood pressure can tolerate. Serialize troponin. Patient not requiring supplemental oxygen so far with oxygen saturation of 96% on RA. 5. Morbid obesity (class III); with BMI of 42.6 this admission adding to the burden of disease outlined from #1 - #4 - Weight loss will be recommended. TSH pending. This complicates her case and may hamper recovery. 6. Leukocytosis of 11.4 K present on admission suspect to be due to acute stress response with no signs of infection on UA or imaging - Noted. Check CBC daily to follow trend. 7. Former tobacco abuse; with subsequent asthma/COPD - Stable and without evidence of acute flare at this time. Maintain prn nebulizers/inhalers. 8. Essential hypertension; on amlodipine, furosemide, hydrochlorothiazide and metoprolol daily - Hold oral antihypertensives in light of #1. Give hydralazine IV prn for systolic blood pressure > 160 mmHg. 9. Hyperlipidemia; on atorvastatin - Hold statin until she is cleared for oral intake by gastroenterology. 10. Hypothyroidism; on levothyroxine - Restart levothyroxine when possible. 11. History of RA; on methotrexate, sulfasalazine plus as needed prednisone - Hold this regimen for now and restart when safe to do so. 12. History of squamous cell skin cancer - Noted. 13. Depression with anxiety; on venlafaxine - Restart this agent when able. 14. History of vertigo; on meclizine - Stable. 15. OA; s/p bilateral THR's, bilateral TKR's, Right total shoulder replacement (2014) plus lumbar fusion (2012) with resultant chronic pain syndrome; on prn oxycodone - We will follow pain regimen and scales outlined in #1. 16. DVT/GI prophylaxis - SCD's only in light of ABLA outlined in #1 contraindicating chemoprophylaxis. Patient started on continuous IV pantoprazole infusion for presumed PUD outlined in #1. Total time: Approximately (but not less than) 75 minutes. Charges/Coding Visit Charges Inpatient E&M: 17963 Init Hosp L3
--- OUTSIDE RECORDS SUMMARY | 2025-07-10 02:38 | XMS RPT_ITS | CCD ---
Author Organization [facility] Care Team Providers [facility] [place] Worker Name Role Phone Dr. Marciano Anaya Primary [...] Translations: [adhesive] Allergy to substance 1 Other [facility] (17 sources) Amoxicillin; Translations: [amoxicillin trihydrate] Drug Allergy 1 Unknown [facility] (16 sources) Latex Allergy to substance 1 Unknown [facility] (17 sources) Penicillins; Translations: [Penicillins] Allergy to substance 1 Unknown [facility] (16 sources) Tetracycline Drug Allergy 1 Unknown [facility] (17 sources) potassium clavulanate; Translations: [potassium clavulanate] Allergy to substance 1 Unknown [facility] (1 source) Latex Drug allergy (disorder) 3 [facility] (1 source) Tetracycline Drug Allergy 3 [facility] Medications Current Medications Medication [...] 1 tablet by mouth once daily Vitamins A,C,L-Uvbp-Fccybg 1 EACH tablet Active 1 {tbl} PO DAILY July 07, 2019 12:00am [facility] Start: 07-07-2019 take 1 tablet by german th once daily Vitamins A,C,G-Abgz-Xbzapi Active 1 TABLET PO DAILY July 07, [...] D2) (Vitamin D) 50,000 UNIT capsule Discontinued 62812 U PO TUTH March 15, 2015 12:00am [...] disease (1 source) Atherosclerotic heart disease of [place] coronary artery without angina pectoris; Translations: [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, [address] Calcium [Mass/Vol] 9.2 mg/dL Normal 7.6-11.0 [facility] Comment on above: Performed By: #### L 500.2500, L503.7995 #### [facility] [address] [place], [address] Chloride [Moles/Vol] 106 mmol/L Normal 98-108 [facility] Comment on above: Performed By: #### L 500.2500, L503.7505 #### [facility] [address] [place], [address] CO2 [Moles/Vol] 22.5 mmol/L Normal 21.0-32.0 [facility] Comment on above: Performed By: #### L 500.2500, L503.7505 #### [facility] [address] [place], [address] Creatinine [Mass/Vol] 0.91 mg/dL Normal 0.70-1.20 [facility] Comment on above: Performed By: #### L 500.2500, L503.7505 #### [facility] [address] [place], [address] GAP 12 Normal 5-15 [facility] Comment on above: Performed By: #### L 500.2500, L503.7505 #### [facility] [address] [place], [address] GFR/1.73 sq M.predicted among non-blacks MDRD (S/P/Bld) [Vol rate/Area] 65 mL/min/{1.73_m2} Normal >60 [facility] Comment on above: Result Comment: mL/m in/1.73m2 CKD-EPI Creatinine Equation (2020) Performed By: #### L 500.2500, L503.7505 #### [facility] [address] [place], [address] Glucose [Mass/Vol] 83 mg/dL Normal 70-99 [facility] Comment on above: Performed By: #### L 500.2500, L503.7505 #### [facility] [address] [place], [address] Potassium [Moles/Vol] 4.3 mmol/L Normal 3.3-5.1 [facility] Comment on above: Performed By: #### L 500.2500, L503.7505 #### [facility] [address] [place], [address] Sodium [Moles/Vol] 140 mmol/L Normal 133-145 [facility] Comment on above: Performed By: #### L 500.2500, L503.7505 #### [facility] [address] [place], [address] Urea nitrogen [Mass/Vol] 18 mg/dL Normal 4-19 [facility] Comment on above: Performed By: #### L 500.2500, L503.7505 #### [facility] [address] [place], [address] Carbon dioxide, total [Moles /volume] in Central venous bloodOrdered By: Marciano Anaya on 07-05-2025 CO2 [Moles/Vol] 22.5 mmol/L 21.0-32.0 [facility] Chloride assayOrdered By: Shelia Anaya on 07-05-2025 Chloride [Moles/Vol] 106 mmol/L 98-108 [facility] Glomerular filtration rate ( GFR) estimation/1.73 sq m using serum, plasma, or whole bOrdered By: Marciano Anaya on 07-05-2025 GFR/1.73 sq M.predicted among non-blacks MDRD (S/P/Bld) [Vol rate/Area] 65 mL/min/{1.73_m2} >60 [facility] Comment on above: mL/min/1.73m2 CKD-EP I Creatinine Equation (2020) Natriuretic peptide.B prohor maulik N-Terminal [Mass/volume] in Serum or PlasmaOrdered By: Marciano Anaya on 07-05-2025 Natriuretic peptide.B prohormone N-Terminal [Mass/Vol] 2575 pg/mL High <1800 [facility] Comment on above: Heart Failure Unlike ly: < 300 pg/mLHeart Failure Likely< 50 Years: > 450 pg/mL50-75 Years: > 900 pg/mL>75 Years: > 1800 pg/mL Potassium measurement (mass/ volume)Ordered By: Marciano Anaya on 07-05-2025 Potassium (Unsp spec) [Mass/Vol] 4.3 mmol/L 3.3-5.1 [facility] Pro- Brain NATRIURETIC PEPTI Leena 07-05-2025 Natriuretic peptide B (Bld) [Mass/Vol] 2575 pg/mL High <=1800 [facility] Comment on above: Result Comment: Hear t Failure Unlikely: < 300 pg/mL Heart Failure Likely < 50 Years: > 450 pg/mL 50-75 Years: > 900 pg/mL >75 Years: > 1800 pg/mL Performed By: #### L 500.2500, L503.7505 #### [facility] [address] [place] [address], [address] Serum creatinine measurement (mass/volume)Ordered By: Marciano Anaya on 07-05-2025 Creatinine [Mass/Vol] 0.91 mg/dL 0.70-1.20 [facility] Serum glucose measurement (m ass/volume)Ordered By: Marciano Anaya on 07-05-2025 Glucose [Mass/Vol] 83 mg/dL 70-99 [facility] Serum or plasma calcium luis enrique urement (mass/volume)Ordered By: Marciano Anaya on 07-05-2025 Calcium [Mass/Vol] 9.2 mg/dL 7.6-11.0 [facility] Serum or plasma urea nitroge n measurement (mass/volume)Ordered By: Marciano Anaya on 07-05-2025 Urea nitrogen [Mass/Vol] 18 mg/dL 4-19 [facility] Sodium levelOrdered By: Marciano Anaya on 07-05-2025 Sodium [Moles/Vol] 140 mmol/L 133-145 [facility] Anion gap in Serum or Plasma Ordered By: Marciano Anaya on 07-01-2025 Anion gap [Moles/Vol] 14 mmol/L 5-15 [facility] BUN/creatinine ratioOrdered By: Marciano Anaya on 07-01-2025 Urea nitrogen/Creatinine [Mass ratio] 16.0 mg/mg 10- [facility] Basic Metabolic Profile (BMP )on 07-01-2025 BUN/CRE 16.0 RATIO Normal - [facility] Comment on above: Performed By: #### L 100.0100, L500.4050 #### [facility] [address] [place], [address] Calcium [Mass/Vol] 9.4 mg/dL Normal 7.6-11.0 [facility] Comment on above: Performed By: #### L 100.0100, L500.4050 #### [facility] [address] [place], [address] Chloride [Moles/Vol] 104 mmol/L Normal 98-108 [facility] Comment on above: Performed By: #### L 100.0100, L500.4050 #### [facility] [address] [place], [address] CO2 [Moles/Vol] 22.5 mmol/L Normal 21.0-32.0 [facility] Comment on above: Performed By: #### L 100.0100, L500.4050 #### [facility] [address] [place], [address] Creatinine [Mass/Vol] 0.99 mg/dL Normal 0.70-1.20 [facility] Comment on above: Performed By: #### L 100.0100, L500.4050 #### [facility] [address] [place], [address] GAP 14 Normal 5-15 [facility] Comment on above: Performed By: #### L 100.0100, L500.4050 #### [facility] [address] [place], [address] GFR/1.73 sq M.predicted among non-blacks MDRD (S/P/Bld) [Vol rate/Area] 58 mL/min/{1.73_m2} Low >60 [facility] Comment on above: Result Comment: mL/m in/1.73m2 CKD-EPI Creatinine Equation (2020) Performed By: #### L 100.0100, L500.4050 #### [facility] [address] [place], [address] Glucose [Mass/Vol] 89 mg/dL Normal 70-99 [facility] Comment on above: Performed By: #### L 100.0100, L500.4050 #### [facility] [address] [place], [address] Potassium [Moles/Vol] 4.5 mmol/L Normal 3.3-5.1 [facility] Comment on above: Performed By: #### L 100.0100, L500.4050 #### [facility] [address] [place], [address] Sodium [Moles/Vol] 141 mmol/L Normal 133-145 [facility] Comment on above: Performed By: #### L 100.0100, L500.4050 #### [facility] [address] [place], [address] Urea nitrogen [Mass/Vol] 16 mg/dL Normal 4-19 [facility] Comment on above: Performed By: #### L 100.0100, L500.4050 #### [facility] [address] [place], [address] Carbon dioxide, total [Moles /volume] in Central venous bloodOrdered By: Marciano Anaya on 07-01-2025 CO2 [Moles/Vol] 22.5 mmol/L 21.0-32.0 [facility] Chloride assayOrdered By: Shelia Anaya on 07-01-2025 Chloride [Moles/Vol] 104 mmol/L 98-108 [facility] Glomerular filtration rate ( GFR) estimation/1.73 sq m using serum, plasma, or whole bOrdered By: Marciano Anaya on 07-01-2025 GFR/1.73 sq M.predicted among non-blacks MDRD (S/P/Bld) [Vol rate/Area] 58 mL/min/{1.73_m2} Low >60 [facility] Comment on above: mL/min/1.73m2 CKD-EP I Creatinine Equation (2020) L501.4021on 07-01-2025 Trop T High Sen 11 ng/L Normal <=14 [facility] Comment on above: Performed By: #### L 100.0100, L500.4050 #### [facility] [address] [place], [address] Magnesiumon 07-01-2025 Magnesium [Mass/Vol] 2.3 mg/dL High 1.5-2.2 [facility] Comment on above: Performed By: #### L 100.0100, L500.4050 #### [facility] [address] [place], [address] Magnesium measurement (mass/ volume)Ordered By: Marciano Anaya on 07-01-2025 Magnesium (Unsp spec) [Mass/Vol] 2.3 mg/dL High 1.5-2.2 [facility] Potassium measurement (mass/ volume)Ordered By: Marciano Anaya on 07-01-2025 Potassium (Unsp spec) [Mass/Vol] 4.5 mmol/L 3.3-5.1 [facility] Serum creatinine measurement (mass/volume)Ordered By: Marciaon Anaya on 07-01-2025 Creatinine [Mass/Vol] 0.99 mg/dL 0.70-1.20 [facility] Serum glucose measurement (m ass/volume)Ordered By: Marciano Anaya on 07-01-2025 Glucose [Mass/Vol] 89 mg/dL 70-99 [facility] Serum or plasma calcium luis enrique urement (mass/volume)Ordered By: Marciano Anaya on 07-01-2025 Calcium [Mass/Vol] 9.4 mg/dL 7.6-11.0 [facility] Serum or plasma urea nitroge n measurement (mass/volume)Ordered By: Marciano Anaya on 07-01-2025 Urea nitrogen [Mass/Vol] 16 mg/dL 4-19 [facility] Sodium levelOrdered By: Marciano Anaya on 07-01-2025 Sodium [Moles/Vol] 141 mmol/L 133-145 [facility] TSH DL <= 0.005 mIU/L QnOrde red By: Marciano Anaya on 07-01-2025 TSH Qn 3.190 uIU/mL 0.300-4.200 [facility] Thyroid Stim Hormone (TSH)on 07-01-2025 TSH 3.190 uIU/mL Normal 0.300-4.200 [facility] Comment on above: Performed By: #### L 100.0100, L500.4050 #### [facility] [address] [place], [address] Troponin T.cardiac [Mass/vol ume] in Serum or Plasma by High sensitivity methodOrdered By: Marciano Anaya on 07-01-2025 Troponin T.cardiac High sensitivity method [Mass/Vol] 11 ng/L <14 [facility] Absolute lymphocyte countOrd ered By: Amina Palomo on 06-06-2025 Lymphocytes Auto (Unsp spec) [#/Vol] 2.41 10*3/uL 0.83-4.51 [facility] Absolute neutrophil countOrd ered By: Amina Palomo on 06-06-2025 Neutrophils (Bld) [#/Vol] 4.4 10*3/uL 2.0-7.7 [facility] Anion gap in Serum or Plasma Ordered By: Amina Palomo on 06-06-2025 Anion gap [Moles/Vol] 11 mmol/L 5-15 [facility] Automated lymphocyte count a s percentage of total leukocytesOrdered By: Amina Palomo on 06-06-2025 Lymphocytes/100 WBC Auto (Unsp spec) 27.5 % 19-41 [facility] BUN/creatinine ratioOrdered By: Amina Palomo on 06-06-2025 Urea nitrogen/Creatinine [Mass ratio] 19.3 mg/mg 10-20 [facility] Basophil percentageOrdered B y: Amina Cisselanki on 06-06-2025 Basophils/100 WBC (Bld) 0.9 % 0-1 [facility] Bilirubin, totalOrdered By: Amina Tamayocatina on 06-06-2025 Bilirubin [Mass/Vol] 0.29 mg/dL 0.00-1.30 [facility] CBC W/Diff, Automatedon 05-11 Absolute Lymph 2.41 X10 3/uL Normal 0.83-4.51 [facility] Comment on above: Performed By: #### L 100.0100, L500.4050 #### [facility] [address] [place], [address] Absolute Neut 4.4 X10 3/uL Normal 2.0-7.7 [facility] Comment on above: Performed By: #### L 100.0100, L500.4050 #### [facility] [address] [place], [address] Basophils/100 WBC (Bld) 0.9 % Normal 0-1 [facility] Comment on above: Performed By: #### L 100.0100, L500.4050 #### [facility] [address] [place], [address] Eosinophils/100 WBC (Bld) 10.0 % High 0-5 [facility] Comment on above: Performed By: #### L 100.0100, L500.4050 #### [facility] [address] [place], [address] Erythrocyte distribution width (RBC) [Ratio] 16.9 % High 11.6-14.6 [facility] Comment on above: Performed By: #### L 100.0100, L500.4050 #### [facility] [address] [place], [address] Hematocrit (Bld) [Volume fraction] 39.1 % Normal 37-47 [facility] Comment on above: Performed By: #### L 100.0100, L500.4050 #### [facility] [address] [place], [address] Hemoglobin (Bld) [Mass/Vol] 11.9 g/dL Low 12.0-15.0 [facility] Comment on above: Performed By: #### L 100.0100, L500.4050 #### [facility] [address] [place], [address] IG% 0.500 Normal 0.0-0.9 [facility] Comment on above: Result Comment: IG% - Immature Granulocytes (promyelocytes, myelocytes and metamyelocytes) > 1% indicates that a LEFT SHIFT is Present. Performed By: #### L 100.0100, L500.4050 #### [facility] [address] [place], [address] Lymphocytes/100 WBC (Bld) 27.5 % Normal 19-41 [facility] Comment on above: Performed By: #### L 100.0100, L500.4050 #### [facility] [address] [place], [address] MCH (RBC) [Entitic mass] 30.7 pg Normal 27.0-32.0 [facility] Comment on above: Performed By: #### L 100.0100, L500.4050 #### [facility] [address] [place], [address] MCHC (RBC) [Mass/Vol] 30.4 g/dL Low 32-36 [facility] Comment on above: Performed By: #### L 100.0100, L500.4050 #### [facility] [address] [place], [address] MCV (RBC) [Entitic vol] 100.8 fL High 81-99 [facility] Comment on above: Performed By: #### L 100.0100, L500.4050 #### [facility] [address] [place], [address] Monocytes/100 WBC (Bld) 10.7 % High 0-10 [facility] Comment on above: Performed By: #### L 100.0100, L500.4050 #### [facility] [address] [place], [address] Neutrophils/100 WBC (Bld) 50.4 % Normal 47-70 [facility] Comment on above: Performed By: #### L 100.0100, L500.4050 #### [facility] [address] [place], [address] Nucleated RBC (Bld) [#/Vol] 0 10*3/uL Normal 0-5 [facility] Comment on above: Performed By: #### L 100.0100, L500.4050 #### [facility] [address] [place], [address] Platelet mean volume (Bld) [Entitic vol] 10.9 fL Normal 6.2-12.0 [facility] Comment on above: Performed By: #### L 100.0100, L500.4050 #### [facility] [address] [place], [address] Platelets (Bld) [#/Vol] 226 10*3/uL Normal 150-450 [facility] Comment on above: Performed By: #### L 100.0100, L500.4050 #### [facility] [address] [place], [address] RBC (Bld) [#/Vol] 3.88 10*6/uL Low 4.2-5.4 [facility] Comment on above: Performed By: #### L 100.0100, L500.4050 #### [facility] [address] [place], [address] RDW SD 60.9 fl High 35.1-43.9 [facility] Comment on above: Performed By: #### L 100.0100, L500.4050 #### [facility] [address] [place], [address] WBC (Bld) [#/Vol] 8.8 10*3/uL Normal 4.4-11.0 [facility] Comment on above: Performed By: #### L 100.0100, L500.4050 #### [facility] [address] [place], [address] Carbon dioxide, total [Moles /volume] in Central venous bloodOrdered By: Amina Palomo on 06-06-2025 CO2 [Moles/Vol] 27.0 mmol/L 21.0-32.0 [facility] Chloride assayOrdered By: Marcelo Palomo on 06-06-2025 Chloride [Moles/Vol] 105 mmol/L 98-108 [facility] Comprehensive Metabolic Prof ilon 06-06-2025 Albumin [Mass/Vol] 3.7 g/dL Normal 3.4-4.8 [facility] Comment on above: Performed By: #### L 100.0100, L500.4050 #### [facility] [address] [place], [address] Albumin/Globulin [Mass ratio] 1.3 {ratio} Normal 0.9-2.4 [facility] Comment on above: Performed By: #### L 100.0100, L500.4050 #### [facility] [address] [place], [address] ALK PHOS 140 U/L High 35-104 [facility] Comment on above: Performed By: #### L 100.0100, L500.4050 #### [facility] [address] [place], [address] ALT [Catalytic activity/Vol] 23 U/L Normal <=34 [facility] Comment on above: Performed By: #### L 100.0100, L500.4050 #### [facility] [address] [place], [address] AST [Catalytic activity/Vol] 21 U/L Normal <=31 [facility] Comment on above: Performed By: #### L 100.0100, L500.4050 #### [facility] [address] [place], [address] Bilirubin [Mass/Vol] 0.29 mg/dL Normal 0.00-1.30 [facility] Comment on above: Performed By: #### L 100.0100, L500.4050 #### [facility] [address] [place], [address] BUN/CRE 19.3 RATIO Normal 10-20 [facility] Comment on above: Performed By: #### L 100.0100, L500.4050 #### [facility] [address] [place], [address] Calcium [Mass/Vol] 9.4 mg/dL Normal 7.6-11.0 [facility] Comment on above: Performed By: #### L 100.0100, L500.4050 #### [facility] [address] [place], [address] Chloride [Moles/Vol] 105 mmol/L Normal 98-108 [facility] Comment on above: Performed By: #### L 100.0100, L500.4050 #### [facility] [address] [place], [address] CO2 [Moles/Vol] 27.0 mmol/L Normal 21.0-32.0 [facility] Comment on above: Performed By: #### L 100.0100, L500.4050 #### [facility] [address] [place], [address] Creatinine [Mass/Vol] 0.89 mg/dL Normal 0.70-1.20 [facility] Comment on above: Performed By: #### L 100.0100, L500.4050 #### [facility] [address] [place], [address] GAP 11 Normal 5-15 [facility] Comment on above: Performed By: #### L 100.0100, L500.4050 #### [facility] [address] [place], [address] GFR/1.73 sq M.predicted among non-blacks MDRD (S/P/Bld) [Vol rate/Area] 66 mL/min/{1.73_m2} Normal >60 [facility] Comment on above: Result Comment: mL/m in/1.73m2 CKD-EPI Creatinine Equation (2020) Performed By: #### L 100.0100, L500.4050 #### [facility] [address] [place], [address] Globulin (S) [Mass/Vol] 2.8 g/dL Normal 2.2-4.2 [facility] Comment on above: Performed By: #### L 100.0100, L500.4050 #### [facility] [address] [place], [address] Glucose [Mass/Vol] 77 mg/dL Normal 70-99 [facility] Comment on above: Performed By: #### L 100.0100, L500.4050 #### [facility] [address] [place], [address] Potassium [Moles/Vol] 4.7 mmol/L Normal 3.3-5.1 [facility] Comment on above: Performed By: #### L 100.0100, L500.4050 #### [facility] [address] [place], [address] Sodium [Moles/Vol] 143 mmol/L Normal 133-145 [facility] Comment on above: Performed By: #### L 100.0100, L500.4050 #### [facility] [address] [place], [address] T PROT 6.5 g/dL Normal 5.9-8.4 [facility] Comment on above: Performed By: #### L 100.0100, L500.4050 #### [facility] [address] [place], [address] Urea nitrogen [Mass/Vol] 17 mg/dL Normal 4-19 [facility] Comment on above: Performed By: #### L 100.0100, L500.4050 #### [facility] [address] [place], [address] Eosinophil percentageOrdered By: Amina Palomo on 06-06-2025 Eosinophils/100 WBC (Bld) 10.0 % High 0-5 [facility] Erythrocyte distribution wid th ratioOrdered By: [facility] on 06-06-2025 Erythrocyte distribution width (RBC) [Ratio] 16.9 % High 11.6-14.6 [facility] Erythrocyte distribution wid th standard deviationOrdered By: Aminashelia Palomo on 06-06-2025 Erythrocyte distribution width (RBC) [Ratio] 60.9 fl High 35.1-43.9 [facility] Glomerular filtration rate ( GFR) estimation/1.73 sq m using serum, plasma, or whole bOrdered By: Amina Palomo on 06-06-2025 GFR/1.73 sq M.predicted among non-blacks MDRD (S/P/Bld) [Vol rate/Area] 66 mL/min/{1.73_m2} >60 [facility] Comment on above: mL/min/1.73m2 CKD-EP I Creatinine Equation (2020) Hematocrit Auto (Bld) [Volum e fraction]Ordered By: Amina Palomo on 06-06-2025 Hematocrit (Bld) [Volume fraction] 39.1 % 37-47 [facility] Hemoglobin measurementOrdere d By: Amina Palomo on 06-06-2025 Hemoglobin (Bld) [Mass/Vol] 11.9 g/dL Low 12.0-15.0 [facility] Immature granulocytes/100 WB C Auto (Bld)Ordered By: Amina Palomo on 06-06-2025 Immature granulocytes/100 WBC (Bld) 0.500 % 0.0-0.9 [facility] Comment on above: IG% - Immature Granu locytes (promyelocytes, myelocytes and metamyelocytes) > 1% indicates that a LEFT SHIFT is Present. Laboratory - Chemistry and C hemistry - challengeOrdered By: Amina Palomo on 06-06-2025 AST [Catalytic activity/Vol] 21 U/L <32 [facility] MCV (mean corpuscular volume ) determinationOrdered By: Amina Palomo on 06-06-2025 MCV (RBC) [Entitic vol] 100.8 fL High 81-99 [facility] Mean corpuscular hemoglobin (MCH) determinationOrdered By: Amina Palomo on 06-06-2025 MCH (RBC) [Entitic mass] 30.7 pg 27.0-32.0 [facility] Mean corpuscular hemoglobin concentration (MCHC) determinationOrdered By: Amina Palomo on 06-06-2025 MCHC (RBC) [Mass/Vol] 30.4 g/dL Low 32-36 [facility] Mean platelet volume determi nationOrdered By: Amina Palomo on 06-06-2025 Platelet mean volume (Bld) [Entitic vol] 10.9 fL 6.2-12.0 [facility] Monocyte percentageOrdered B y: Amina Palomo on 06-06-2025 Monocytes/100 WBC (Bld) 10.7 % High 0-10 [facility] Neutrophil percentageOrdered By: Amina Palomo on 06-06-2025 Neutrophils/100 WBC (Bld) 50.4 % 47-70 [facility] Nucleated red blood cell per centageOrdered By: Amina Palomo on 06-06-2025 Nucleated RBC/100 WBC (Bld) [Ratio] 0 % 0-5 [facility] Platelet countOrdered By: Marcelo Palomo on 06-06-2025 Platelets (Bld) [#/Vol] 226 10*3/uL 150-450 [facility] Potassium measurement (mass/ volume)Ordered By: Amina Palomo on 06-06-2025 Potassium (Unsp spec) [Mass/Vol] 4.7 mmol/L 3.3-5.1 [facility] RBC Auto (Bld) [#/Vol]Ordere d By: Amina Palomo on 06-06-2025 RBC (Bld) [#/Vol] 3.88 10*6/uL Low 4.2-5.4 [facility] Serum creatinine measurement (mass/volume)Ordered By: Amina Palomo on 06-06-2025 Creatinine [Mass/Vol] 0.89 mg/dL 0.70-1.20 [facility] Serum globulin measurementOr dered By: Amina Palomo on 06-06-2025 Globulin (S) [Mass/Vol] 2.8 g/dL 2.2-4.2 [facility] Serum glucose measurement (m ass/volume)Ordered By: Amina Palomo on 06-06-2025 Glucose [Mass/Vol] 77 mg/dL 70-99 [facility] Serum or plasma alanine duckworth otransferase (ALT) measurementOrdered By: Amina Palomo on 06-06-2025 ALT [Catalytic activity/Vol] 23 U/L <35 [facility] Serum or plasma albumin luis enrique urement (mass/volume)Ordered By: Amina Palomo on 06-06-2025 Albumin [Mass/Vol] 3.7 g/dL 3.4-4.8 [facility] Serum or plasma albumin/glob ulin mass ratioOrdered By: Amina Palomo on 06-06-2025 Albumin/Globulin [Mass ratio] 1.3 {ratio} 0.9-2.4 [facility] Serum or plasma alkaline carole sphatase measurementOrdered By: Amina Palomo on 06-06-2025 ALP [Catalytic activity/Vol] 140 U/L High 35-104 [facility] Serum or plasma calcium luis enrique urement (mass/volume)Ordered By: Amina Palomo on 06-06-2025 Calcium [Mass/Vol] 9.4 mg/dL 7.6-11.0 [facility] Serum or plasma urea nitroge n measurement (mass/volume)Ordered By: Amina Paloom on 06-06-2025 Urea nitrogen [Mass/Vol] 17 mg/dL 4-19 [facility] Sodium levelOrdered By: Annabella Palomo on 06-06-2025 Sodium [Moles/Vol] 143 mmol/L 133-145 [facility] Total proteinOrdered By: Dale Palomo on 06-06-2025 Protein [Mass/Vol] 6.5 g/dL 5.9-8.4 [facility] White blood cell (WBC) count Ordered By: Amina Palomo on 06-06-2025 WBC (Bld) [#/Vol] 8.8 10*3/uL 4.4-11.0 [facility] HIP, UNI W/ Pelvis 2-3 Views on 03-25-2025 HIP, UNI W/ Pelvis 2-3 Views [facility] Imaging Services [address] [place] [address] [id number] HIP, UNI W/ Pelvis 2-3 Views MR#: [id number] Acct: [id number] Name: SEVERIANO LEE Rep #: [id number] : 1945 F 79 From: Eriberto Tadeo MD PCP: Dr. Marciano Anaya, DO Status: REG CLI Study: HIP, UNI W/ Pelvis 2-3 Views Date of Exam: Exam# [id number] Ordering Dr: Amina Palomo MD PROCEDURE: HIP, [...] Views IMPRESSION: Findings as above. Reading Location: [facility] CC: Dr. Marciano Anaya DO; Dr. Amina Paolmo MD Trauma Coordinator: Signed Normal [facility] Absolute lymphocyte countOrd ered By: Amina Palomo on 03-18-2025 Lymphocytes Auto (Unsp spec) [#/Vol] 2.10 10*3/uL 0.83-4.51 [facility] Absolute neutrophil countOrd ered By: Amina Palomo on 03-18-2025 Neutrophils (Bld) [#/Vol] 4.9 10*3/uL 2.0-7.7 [facility] Anion gap in Serum or Plasma Ordered By: Amina Palomo on 03-18-2025 Anion gap [Moles/Vol] 10 mmol/L 5-15 [facility] Automated blood erythrocyte countOrdered By: Amina Palomo on 03-18-2025 RBC (Bld) [#/Vol] 4.04 10*6/uL Low 4.2-5.4 [facility] Comment on above: Performed By: #### L 500.2500, L503.7505 #### [facility] [address] [place], [place], [id number] Automated blood hematocrit ( percentage)Ordered By: Amina Palomo on 03-18-2025 Hematocrit (Bld) [Volume fraction] 39.6 % Normal 37-47 [facility] Comment on above: Performed By: #### L 500.2500, L503.7505 #### [facility] [address] [facility] [facility] [place], [address] Automated lymphocyte count a s percentage of total leukocytesOrdered By: Amina Palomo on 03-18-2025 Lymphocytes/100 WBC Auto (Unsp spec) 26.2 % 19-41 [facility] BUN/creatinine ratioOrdered By: Amina Palomo on 03-18-2025 Urea nitrogen/Creatinine [Mass ratio] 20.9 mg/mg High 10-20 [facility] Basophil percentageOrdered B y: Amina Palomo on 03-18-2025 Basophils/100 WBC (Bld) 1.0 % Normal 0-1 [facility] Comment on above: Performed By: #### L 500.2500, L503.7505 #### [facility] [address] [place], [address] Bilirubin, totalOrdered By: Amina Palomo on 03-18-2025 Bilirubin [Mass/Vol] 0.35 mg/dL 0.00-1.30 [facility] CBC W/Diff, Automatedon Absolute Lymph 2.10 X10 3/uL Normal 0.83-4.51 [facility] Comment on above: Performed By: #### L 500.2500, L503.7505 #### [facility] [address] [facility] [place], [address] Absolute Neut 4.9 X10 3/uL Normal 2.0-7.7 [facility] Comment on above: Performed By: #### L 500.2500, L503.7505 #### [facility] [address] [facility] [place], [address] IG% 0.400 Normal 0.0-0.9 [facility] Comment on above: Result Comment: IG% - Immature Granulocytes (promyelocytes, myelocytes and metamyelocytes) > 1% indicates that a LEFT SHIFT is Present. Performed By: #### L 500.2500, L503.7505 #### [facility] [address] [place], [address] Lymphocytes/100 WBC (Bld) 26.2 % Normal 19-41 [facility] Comment on above: Performed By: #### L 500.2500, L503.7505 #### [facility] [address] [facility] [facility] [place], [address] Nucleated RBC (Bld) [#/Vol] 0 10*3/uL Normal 0-5 [facility] Comment on above: Performed By: #### L 500.2500, L503.7505 #### [facility] [address] [facility] [place], [address] RDW SD 60.0 fl High 35.1-43.9 [facility] Comment on above: Performed By: #### L 500.2500, L5.7505 #### [facility] [address] [place], [address] Carbon dioxide, total [Moles /volume] in Central venous bloodOrdered By: Amina Palomo on 03-18-2025 CO2 [Moles/Vol] 26.4 mmol/L 21.0-32.0 [facility] Chloride assayOrdered By: Marcelo Palomo on 03-18-2025 Chloride [Moles/Vol] 104 mmol/L 98-108 [facility] Comprehensive Metabolic Prof ilon 03-18-2025 Albumin [Mass/Vol] 3.8 g/dL Normal 3.4-4.8 [facility] Comment on above: Performed By: #### L 500.2500, L5.7505 #### [facility] [address] [place], [address] Albumin/Globulin [Mass ratio] 1.3 {ratio} Normal 0.9-2.4 [facility] Comment on above: Performed By: #### L 500.2500, L503.7505 #### [facility] [address] [place], [address] ALK PHOS 130 U/L High 35-104 [facility] Comment on above: Performed By: #### L 500.2500, L503.7505 #### [facility] [address] [place], [address] ALT [Catalytic activity/Vol] 29 U/L Normal <=34 [facility] Comment on above: Performed By: #### L 500.2500, L503.7505 #### [facility] [address] [place], [address] AST [Catalytic activity/Vol] 30 U/L Normal <=31 [facility] Comment on above: Performed By: #### L 500.2500, L503.7505 #### [facility] [address] [place], [address] Bilirubin [Mass/Vol] 0.35 mg/dL Normal 0.00-1.30 [facility] Comment on above: Performed By: #### L 500.2500, L503.7505 #### [facility] [address] [place], [address] BUN/CRE 20.9 RATIO High 10-20 [facility] Comment on above: Performed By: #### L 500.2500, L503.7505 #### [facility] [address] [place], [address] Calcium [Mass/Vol] 9.4 mg/dL Normal 7.6-11.0 [facility] Comment on above: Performed By: #### L 500.2500, L503.7505 #### [facility] [address] [place], [address] Chloride [Moles/Vol] 104 mmol/L Normal 98-108 [facility] Comment on above: Performed By: #### L 500.2500, L503.7505 #### [facility] [address] [place], [address] CO2 [Moles/Vol] 26.4 mmol/L Normal 21.0-32.0 [facility] Comment on above: Performed By: #### L 500.2500, L503.7505 #### [facility] [address] [place], [address] Creatinine [Mass/Vol] 0.88 mg/dL Normal 0.70-1.20 [facility] Comment on above: Performed By: #### L 500.2500, L503.7505 #### [facility] [address] [place], [address] GAP 10 Normal 5-15 [facility] Comment on above: Performed By: #### L 500.2500, L503.7505 #### [facility] [address] [place], [address] GFR/1.73 sq M.predicted among non-blacks MDRD (S/P/Bld) [Vol rate/Area] 67 mL/min/{1.73_m2} Normal >60 [facility] Comment on above: Result Comment: mL/m in/1.73m2 CKD-EPI Creatinine Equation (2020) Performed By: #### L 500.2500, L503.7505 #### [facility] [address] [place], [address] Globulin (S) [Mass/Vol] 2.9 g/dL Normal 2.2-4.2 [facility] Comment on above: Performed By: #### L 500.2500, L503.7505 #### [facility] [address] [place], [address] Glucose [Mass/Vol] 122 mg/dL High 70-99 [facility] Comment on above: Performed By: #### L 500.2500, L503.7505 #### [facility] [address] [place], [address] Potassium [Moles/Vol] 4.6 mmol/L Normal 3.3-5.1 [facility] Comment on above: Performed By: #### L 500.2500, L503.7505 #### [facility] [address] [place], [address] Sodium [Moles/Vol] 140 mmol/L Normal 133-145 [facility] Comment on above: Performed By: #### L 500.2500, L503.7505 #### [facility] [address] [place], [address] T PROT 6.6 g/dL Normal 5.9-8.4 [facility] Comment on above: Performed By: #### L 500.2500, L503.7505 #### [facility] [address] [place], [address] Urea nitrogen [Mass/Vol] 18 mg/dL Normal 4-19 [facility] Comment on above: Performed By: #### L 500.2500, L503.7505 #### [facility] [address] [place], [address] Eosinophil percentageOrdered By: Amina Palomo on 03-18-2025 Eosinophils/100 WBC (Bld) 7.2 % High 0-5 [facility] Comment on above: Performed By: #### L 500.2500, L503.7505 #### [facility] [address] [place], [address] Erythrocyte distribution wid th ratioOrdered By: Amina Palomo on 03-18-2025 Erythrocyte distribution width (RBC) [Ratio] 16.8 % High 11.6-14.6 [facility] Comment on above: Performed By: #### L 500.2500, L503.7505 #### [facility] [address] [place], [address] Erythrocyte distribution wid th standard deviationOrdered By: Amina Palomo on 03-18-2025 Erythrocyte distribution width (RBC) [Ratio] 60.0 fl High 35.1-43.9 [facility] Glomerular filtration rate ( GFR) estimation/1.73 sq m using serum, plasma, or whole bOrdered By: Amina Palomo on 03-18-2025 GFR/1.73 sq M.predicted among non-blacks MDRD (S/P/Bld) [Vol rate/Area] 67 mL/min/{1.73_m2} >60 [facility] Comment on above: mL/min/1.73m2 CKD-EP I Creatinine Equation (2020) Hemoglobin measurementOrdere d By: Amina Palomo on 03-18-2025 Hemoglobin (Bld) [Mass/Vol] 12.1 g/dL Normal 12.0-15.0 [facility] Comment on above: Performed By: #### L 500.2500, L503.7505 #### [facility] [address], [address] Immature granulocytes/100 WB C Auto (Bld)Ordered By: Amina Palomo on 03-18-2025 Immature granulocytes/100 WBC (Bld) 0.400 % 0.0-0.9 [facility] Comment on above: IG% - Immature Granu locytes (promyelocytes, myelocytes and metamyelocytes) > 1% indicates that a LEFT SHIFT is Present. Laboratory - Chemistry and C hemistry - challengeOrdered By: Amina Palomo on 03-18-2025 AST [Catalytic activity/Vol] 30 U/L <32 [facility] MCV (mean corpuscular volume ) determinationOrdered By: Amina Palomo on 03-18-2025 MCV (RBC) [Entitic vol] 98.0 fL Normal 81-99 [facility] Comment on above: Performed By: #### L 500.2500, L503.7505 #### [facility] [address] [place], [address] Mean corpuscular hemoglobin (MCH) determinationOrdered By: Amina Palomo on 03-18-2025 MCH (RBC) [Entitic mass] 30.0 pg Normal 27.0-32.0 [facility] Comment on above: Performed By: #### L 500.2500, L503.7505 #### [facility] [address] [place], [address] Mean corpuscular hemoglobin concentration (MCHC) determinationOrdered By: Amina Palomo on 03-18-2025 MCHC (RBC) [Mass/Vol] 30.6 g/dL Low 32-36 [facility] Comment on above: Performed By: #### L 500.2500, L503.7505 #### [facility] [address] [place], [address] Mean platelet volume determi nationOrdered By: Amina Palomo on 03-18-2025 Platelet mean volume (Bld) [Entitic vol] 10.6 fL Normal 6.2-12.0 [facility] Comment on above: Performed By: #### L 500.2500, L503.7505 #### [facility] [address] [place], [address] Monocyte percentageOrdered B y: Amina Palomo on 03-18-2025 Monocytes/100 WBC (Bld) 4.9 % Normal 0-10 [facility] Comment on above: Performed By: #### L 500.2500, L503.7505 #### [facility] [address] [place], [address] Neutrophil percentageOrdered By: Amina Palomo on 03-18-2025 Neutrophils/100 WBC (Bld) 60.3 % Normal 47-70 [facility] Comment on above: Performed By: #### L 500.2500, L503.7505 #### [facility] [address] [place], [address] Nucleated red blood cell per centageOrdered By: Amina Palomo on 03-18-2025 Nucleated RBC/100 WBC (Bld) [Ratio] 0 % 0-5 [facility] Platelet countOrdered By: Marcelo Palomo on 03-18-2025 Platelets (Bld) [#/Vol] 285 10*3/uL Normal 150-450 [facility] Comment on above: Performed By: #### L 500.2500, L503.7505 #### [facility] [address] [place], [address] Potassium measurement (mass/ volume)Ordered By: Amina Palomo on 03-18-2025 Potassium (Unsp spec) [Mass/Vol] 4.6 mmol/L 3.3-5.1 [facility] Serum creatinine measurement (mass/volume)Ordered By: Amina Palomo on 03-18-2025 Creatinine [Mass/Vol] 0.88 mg/dL 0.70-1.20 [facility] Serum globulin measurementOr dered By: Amina Palomo on 03-18-2025 Globulin (S) [Mass/Vol] 2.9 g/dL 2.2-4.2 [facility] Serum glucose measurement (m ass/volume)Ordered By: Amina Palomo on 03-18-2025 Glucose [Mass/Vol] 122 mg/dL High 70-99 [facility] Serum or plasma alanine duckworth otransferase (ALT) measurementOrdered By: Amina Palomo on 03-18-2025 ALT [Catalytic activity/Vol] 29 U/L <35 [facility] Serum or plasma albumin luis enrique urement (mass/volume)Ordered By: Amina Palomo on 03-18-2025 Albumin [Mass/Vol] 3.8 g/dL 3.4-4.8 [facility] Serum or plasma albumin/glob ulin mass ratioOrdered By: Amina Palomo on 03-18-2025 Albumin/Globulin [Mass ratio] 1.3 {ratio} 0.9-2.4 [facility] Serum or plasma alkaline carole sphatase measurementOrdered By: Amina Palomo on 03-18-2025 ALP [Catalytic activity/Vol] 130 U/L High 35-104 [facility] Serum or plasma calcium luis enrique urement (mass/volume)Ordered By: Amina Palomo on 03-18-2025 Calcium [Mass/Vol] 9.4 mg/dL 7.6-11.0 [facility] Serum or plasma urea nitroge n measurement (mass/volume)Ordered By: Amina Palomo on 03-18-2025 Urea nitrogen [Mass/Vol] 18 mg/dL 4-19 [facility] Sodium levelOrdered By: Annabella Palomo on 03-18-2025 Sodium [Moles/Vol] 140 mmol/L 133-145 [facility] Total proteinOrdered By: Dale Palomo on 03-18-2025 Protein [Mass/Vol] 6.6 g/dL 5.9-8.4 [facility] White blood cell (WBC) count Ordered By: Amina Palomo on 03-18-2025 WBC (Bld) [#/Vol] 8.0 10*3/uL Normal 4.4-11.0 [facility] Comment on above: Performed By: #### L 500.2500, L503.7505 #### [facility] [address] [place], [address] Chest PA and Lateralon 02-16 Chest PA and Lateral [facility] Imaging Services [address] [place] [address] Chest PA and Lateral MR#: [id number] Acct: [id number] Name: SEVERIANO LEE Rep #: [id number] : 1945 F 79 From: Marciano Yee MD PCP: Dr. Marciano Anaya DO Status: REG CLI Study: Chest PA and Lateral Date of Exam: 02/16/25 Exam# [id number] Ordering Dr: Marciano Anaya DO PROCEDURE: CHEST [...] 2. Additional description as above. Reading Location: [id number] CC: Dr. Marciano Anaya DO Trauma Coordinator: Signed Normal [facility] Absolute lymphocyte countOrd ered By: Amina Palomo on 12-24-2024 Lymphocytes Auto (Unsp spec) [#/Vol] 1.71 10*3/uL 0.83-4.51 [facility] Absolute neutrophil countOrd ered By: Amina Palomo on 12-24-2024 Neutrophils (Bld) [#/Vol] 6.9 10*3/uL 2.0-7.7 [facility] Albumin to globulin ratioOrd ered By: Amina Palomo on 12-24-2024 Albumin/Globulin [Mass ratio] 0.8 {ratio} Low 0.9-2.4 [facility] Automated lymphocyte count a s percentage of total leukocytesOrdered By: Amina Palomo on 12-24-2024 Lymphocytes/100 WBC Auto (Unsp spec) 16.7 % Low 19-41 [facility] Basophil percentageOrdered B y: Amina Palomo on 12-24-2024 Basophils/100 WBC (Bld) 0.9 % 0-1 [facility] Bilirubin, totalOrdered By: Amina Palomo on 12-24-2024 Bilirubin [Mass/Vol] 0.40 mg/dL 0.20-1.00 [facility] Comment on above: For patients on eltr ombopag therapy, use of Dimension [place] TBIL is not recommended. Blood urea nitrogen (BUN)/cr eatinine ratioOrdered By: Amina Palomo on 12-24-2024 Urea nitrogen/Creatinine [Mass ratio] 21.0 mg/mg High 10-20 [facility] CBC W/Diff, Automatedon 12-11 Absolute Lymph 1.71 X10 3/uL Normal 0.83-4.51 [facility] Comment on above: Performed By: #### L 500.2500, L503.7505 #### [facility] [address] [place], [address] Absolute Neut 6.9 X10 3/uL Normal 2.0-7.7 [facility] Comment on above: Performed By: #### L 500.2500, L503.7505 #### [facility] [address] [place], [address] Basophils/100 WBC (Bld) 0.9 % Normal 0-1 [facility] Comment on above: Performed By: #### L 500.2500, L503.7505 #### [facility] [address] [place], [address] Eosinophils/100 WBC (Bld) 8.4 % High 0-5 [facility] Comment on above: Performed By: #### L 500.2500, L503.7505 #### [facility] [address] [place], [address] Erythrocyte distribution width (RBC) [Ratio] 15.7 % High 11.6-14.6 [facility] Comment on above: Performed By: #### L 500.2500, L503.7505 #### [facility] [address] [place], [address] Hematocrit (Bld) [Volume fraction] 39.4 % Normal 37-47 [facility] Comment on above: Performed By: #### L 500.2500, L503.7505 #### [facility] [address] [place], [address] Hemoglobin (Bld) [Mass/Vol] 12.1 g/dL Normal 12.0-15.0 [facility] Comment on above: Performed By: #### L 500.2500, L503.7505 #### [facility] [address] [place], [address] IG% 0.700 Normal 0.0-0.9 [facility] Comment on above: Result Comment: IG% - Immature Granulocytes (promyelocytes, myelocytes and metamyelocytes) > 1% indicates that a LEFT SHIFT is Present. Performed By: #### L 500.2500, L503.7505 #### [facility] [address] [place], [address] Lymphocytes/100 WBC (Bld) 16.7 % Low 19-41 [facility] Comment on above: Performed By: #### L 500.2500, L503.7505 #### [facility] [address] [place], [address] MCH (RBC) [Entitic mass] 29.7 pg Normal 27.0-32.0 [facility] Comment on above: Performed By: #### L 500.2500, L503.7505 #### [facility] [address] [place], [address] MCHC (RBC) [Mass/Vol] 30.7 g/dL Low 32-36 [facility] Comment on above: Performed By: #### L 500.2500, L503.7505 #### [facility] [address] [place], [address] MCV (RBC) [Entitic vol] 96.8 fL Normal 81-99 [facility] Comment on above: Performed By: #### L 500.2500, L503.7505 #### [facility] [address] [place], [address] Monocytes/100 WBC (Bld) 6.0 % Normal 0-10 [facility] Comment on above: Performed By: #### L 500.2500, L503.7505 #### [facility] [address] [place], [address] Neutrophils/100 WBC (Bld) 67.3 % Normal 47-70 [facility] Comment on above: Performed By: #### L 500.2500, L503.7505 #### [facility] [address] [place], [address] Nucleated RBC (Bld) [#/Vol] 0 10*3/uL Normal 0-5 [facility] Comment on above: Performed By: #### L 500.2500, L503.7505 #### [facility] [address] [place], [address] Platelet mean volume (Bld) [Entitic vol] 10.7 fL Normal 6.2-12.0 [facility] Comment on above: Performed By: #### L 500.2500, L503.7505 #### [facility] [address] [place], [address] Platelets (Bld) [#/Vol] 335 10*3/uL Normal 150-450 [facility] Comment on above: Performed By: #### L 500.2500, L503.7505 #### [facility] [address] [place], [address] RBC (Bld) [#/Vol] 4.07 10*6/uL Low 4.2-5.4 [facility] Comment on above: Performed By: #### L 500.2500, L503.7505 #### [facility] [address] [place], [address] RDW SD 54.3 fl High 35.1-43.9 [facility] Comment on above: Performed By: #### L 500.2500, L503.7505 #### [facility] [address] [place], [address] WBC (Bld) [#/Vol] 10.3 10*3/uL Normal 4.4-11.0 [facility] Comment on above: Performed By: #### L 500.2500, L503.7505 #### [facility] [address] [place], [address] Carbon dioxide measurementOr dered By: Amina Palomo on 12-24-2024 CO2 [Moles/Vol] 26.0 mmol/L 21.0-32.0 [facility] Chloride measurementOrdered By: Amina Palomo on 12-24-2024 Chloride [Moles/Vol] 104 mmol/L 98-107 [facility] Comprehensive Metabolic Prof ilon 12-24-2024 Albumin [Mass/Vol] 3.0 g/dL Low 3.2-5.0 [facility] Comment on above: Performed By: #### L 500.2500, L503.7505 #### [facility] [address] [place], [address] Albumin/Globulin [Mass ratio] 0.8 {ratio} Low 0.9-2.4 [facility] Comment on above: Performed By: #### L 500.2500, L503.7505 #### [facility] [address] [place], [address] ALK P 128 U/L High 45-117 [facility] Comment on above: Performed By: #### L 500.2500, L503.7505 #### [facility] [address] [place], [address] ALT [Catalytic activity/Vol] 13 U/L Normal 13-56 [facility] Comment on above: Performed By: #### L 500.2500, L5.7505 #### [facility] [address] [place], [address] AST [Catalytic activity/Vol] 18 U/L Normal 15-37 [facility] Comment on above: Performed By: #### L 500.2500, L503.7505 #### [facility] Laboratory [address] [place], [address] Bilirubin [Mass/Vol] 0.40 mg/dL Normal 0.20-1.00 [facility] Comment on above: Result Comment: For patients on eltrombopag therapy, use of Dimension [place] TBIL is not recommended. Performed By: #### L 500.2500, L503.7505 #### [facility] [address] [place], [address] BUN/CRE 21.0 RATIO High 10-20 [facility] Comment on above: Performed By: #### L 500.2500, L503.7505 #### [facility] [address] [place], [address] CA,Total 9.5 mg/dL Normal 8.5-10.1 [facility] Comment on above: Performed By: #### L 500.2500, L503.7505 #### [facility] [address] [place], [address] Chloride [Moles/Vol] 104 mmol/L Normal 98-107 [facility] Comment on above: Performed By: #### L 500.2500, L503.7505 #### [facility] [address] [place], [address] CO2 [Moles/Vol] 26.0 mmol/L Normal 21.0-32.0 [facility] Comment on above: Performed By: #### L 500.2500, L503.7505 #### [facility] [address] [place], [address] Creatinine [Mass/Vol] 1.05 mg/dL High 0.55-1.02 [facility] Comment on above: Result Comment: The validity of the calculated GFR GFRAA in patients over 70 years has not been determined. Clinical correlation is essential. Performed By: #### L 500.2500, L503.7505 #### [facility] [address] [place], [address] EST GFR - AA 65 mL/min Normal >60 [facility] Comment on above: Result Comment: Afri can [place] African GFR Calc Performed By: #### L 500.2500, L503.7505 #### [facility] [address] [place], [address] GAP 8 Normal 5-15 [facility] Comment on above: Performed By: #### L 500.2500, L503.7505 #### [facility] [address] [place], [address] GFR/1.73 sq M.predicted among non-blacks MDRD (S/P/Bld) [Vol rate/Area] 54 mL/min/{1.73_m2} Low >60 [facility] Comment on above: Result Comment: Non- GFR Calc Performed By: #### L 500.2500, L503.7505 #### [facility] [address] [place], [address] Globulin (S) [Mass/Vol] 3.9 g/dL Normal 2.2-4.2 [facility] Comment on above: Performed By: #### L 500.2500, L503.7505 #### [facility] [address] [place], [address] Glucose [Mass/Vol] 87 mg/dL Normal 74-106 [facility] Comment on above: Performed By: #### L 500.2500, L503.7505 #### [facility] [address] [place], [address] Potassium [Moles/Vol] 4.4 mmol/L Normal 3.5-5.1 [facility] Comment on above: Performed By: #### L 500.2500, L503.7505 #### [facility] [address] [place], [address] Sodium [Moles/Vol] 138 mmol/L Normal 136-145 [facility] Comment on above: Performed By: #### L 500.2500, L503.7505 #### [facility] [address] [place], [address] T PROT 6.9 g/dL Normal 6.4-8.2 [facility] Comment on above: Performed By: #### L 500.2500, L503.7505 #### [facility] [address] [place], [address] Urea nitrogen [Mass/Vol] 22 mg/dL High 7-18 [facility] Comment on above: Performed By: #### L 500.2500, L503.7505 #### [facility] [address] [place], [address] Eosinophil percentageOrdered By: Amina Palomo on 12-24-2024 Eosinophils/100 WBC (Bld) 8.4 % High 0-5 [facility] Erythrocyte distribution wid th (RBC) [Ratio]Ordered By: Amina Palomo on 12-24-2024 Erythrocyte distribution width (RBC) [Entitic vol] 54.3 fL High 35.1-43.9 [facility] Erythrocyte distribution wid th ratioOrdered By: Amina Palomo on 12-24-2024 Erythrocyte distribution width (RBC) [Ratio] 15.7 % High 11.6-14.6 [facility] Erythrocyte distribution wid th standard deviationOrdered By: Amina Palomo on 12-24-2024 Erythrocyte distribution width (RBC) [Ratio] 54.3 fl High 35.1-43.9 [facility] Estimated glomerular filtrat ion rate (GFR) AmericanOrdered By: Amina Palomo on 12-24-2024 Estimated GFR (MDRD) Amer 65 mL/min >60 [facility] Comment on above: GFR Calc Glomerular filtration rate ( GFR) estimationOrdered By: Amina Palomo on 12-24-2024 Estimated GFR (MDRD) Non-Af Amer 54 mL/min Low >60 [facility] Comment on above: Non- GFR Calc GFR/1.73 sq M.predicted among non-blacks MDRD (S/P/Bld) [Vol rate/Area] 54 mL/min/{1.73_m2} Low >60 [facility] Comment on above: Non- GFR Calc Glucose measurementOrdered B y: Amina Palomo on 12-24-2024 Glucose [Mass/Vol] 87 mg/dL 74-106 [facility] Hematocrit Auto (Bld) [Volum e fraction]Ordered By: Amina Palomo on 12-24-2024 Hematocrit (Bld) [Volume fraction] 39.4 % 37-47 [facility] Hemoglobin measurementOrdere d By: Amina Palomo on 12-24-2024 Hemoglobin (Bld) [Mass/Vol] 12.1 g/dL 12.0-15.0 [facility] Immature granulocytes/100 WB C Auto (Bld)Ordered By: Amina Palomo on 12-24-2024 Immature granulocytes/100 WBC (Bld) 0.700 % 0.0-0.9 [facility] Comment on above: IG% - Immature Granu locytes (promyelocytes, myelocytes and metamyelocytes) > 1% indicates that a LEFT SHIFT is Present. Laboratory - Chemistry and C hemistry - challengeOrdered By: Amina Paloom on 12-24-2024 AST [Catalytic activity/Vol] 18 U/L 15-37 [facility] Lymphocytes Auto (Unsp spec) [#/Vol]Ordered By: Amina Palomo on 12-24-2024 Lymphocytes (Bld) [#/Vol] 1.71 10*3/uL 0.83-4.5 1 [facility] Lymphocytes/100 WBC Auto (Un sp spec)Ordered By: Amina Palomo on 12-24-2024 Lymphocytes/100 WBC (Bld) 16.7 % Low 19-41 [facility] MCV (mean corpuscular volume ) determinationOrdered By: Amina Palomo on 12-24-2024 MCV (RBC) [Entitic vol] 96.8 fL 81-99 [facility] Mean corpuscular hemoglobin (MCH) determinationOrdered By: Amina Palomo on 12-24-2024 MCH (RBC) [Entitic mass] 29.7 pg 27.0-32.0 [facility] Mean corpuscular hemoglobin concentration (MCHC) determinationOrdered By: Amina Palomo on 12-24-2024 MCHC (RBC) [Mass/Vol] 30.7 g/dL Low 32-36 [facility] Mean platelet volume determi nationOrdered By: Amina Palomo on 12-24-2024 Platelet mean volume (Bld) [Entitic vol] 10.7 fL 6.2-12.0 [facility] Monocyte percentageOrdered B y: Amina Palomo on 12-24-2024 Monocytes/100 WBC (Bld) 6.0 % 0-10 [facility] Neutrophil percentageOrdered By: Amina Palomo on 12-24-2024 Neutrophils/100 WBC (Bld) 67.3 % 47-70 [facility] Nucleated red blood cell per centageOrdered By: Amina Palomo on 12-24-2024 Nucleated RBC/100 WBC (Bld) [Ratio] 0 % 0-5 [facility] Platelet countOrdered By: Marcelo Palomo on 12-24-2024 Platelets (Bld) [#/Vol] 335 10*3/uL 150-450 [facility] Potassium measurementOrdered By: Amina Palomo on 12-24-2024 Potassium [Moles/Vol] 4.4 mmol/L 3.5-5.1 [facility] RBC Auto (Bld) [#/Vol]Ordere d By: Amina Palomo on 12-24-2024 RBC (Bld) [#/Vol] 4.07 10*6/uL Low 4.2-5.4 [facility] Serum anion gap measurementO rdered By: Amina Palomo on 12-24-2024 Anion gap [Moles/Vol] 8 mmol/L 5-15 [facility] Serum globulin measurementOr dered By: Amina Palomo on 12-24-2024 Globulin (S) [Mass/Vol] 3.9 g/dL 2.2-4.2 [facility] Serum or plasma alanine duckworth otransferase (ALT) measurementOrdered By: Amina Palomo on 12-24-2024 ALT [Catalytic activity/Vol] 13 U/L 13-56 [facility] Serum or plasma albumin luis enrique urement (mass/volume)Ordered By: Amina Palomo on 12-24-2024 Albumin [Mass/Vol] 3.0 g/dL Low 3.2-5.0 [facility] Serum or plasma alkaline carole sphatase measurementOrdered By: Amina Palomo on 12-24-2024 ALP [Catalytic activity/Vol] 128 U/L High 45-117 [facility] Serum or plasma calcium luis enrique urement (mass/volume)Ordered By: Amina Palomo on 12-24-2024 Calcium [Mass/Vol] 9.5 mg/dL 8.5-10.1 [facility] Serum or plasma creatinine m easurement (mass/volume)Ordered By: Amina Palomo on 12-24-2024 Creatinine [Mass/Vol] 1.05 mg/dL High 0.55-1.02 [facility] Comment on above: The validity of the calculated GFR & GFRAA in patients over 70 years has not been determined. Clinical correlation is essential. Serum or plasma urea nitroge n measurement (mass/volume)Ordered By: Amina Palomo on 12-24-2024 Urea nitrogen [Mass/Vol] 22 mg/dL High 7-18 [facility] Sodium levelOrdered By: Annabella Palomo on 12-24-2024 Sodium [Moles/Vol] 138 mmol/L 136-145 [facility] Total proteinOrdered By: Dale Palomo on 12-24-2024 Protein [Mass/Vol] 6.9 g/dL 6.4-8.2 [facility] White blood cell (WBC) count Ordered By: Amina Palomo on 12-24-2024 WBC (Bld) [#/Vol] 10.3 10*3/uL 4.4-11.0 [facility] 78-RI-Vazhoic DOrdered By: Malcolm Anaya on 10-25-2024 Vitamin D 25-Hydroxy 30.7 ng/mL [facility] Comment on above: Vitamin D 25(OH) Sta tus Range Deficiency <20 ng/mL (50nmol/L) Insufficiency 20 - 30 ng/mL (50 - 75 nmol/L) Sufficiency 30 - 100 ng/mL (75 - 250 nmol/L) Toxicity >100 ng/mL (>250 nmol/L) Direct serum free thyroxine (FT4) measurementOrdered By: Marciano Anaya on 10-25-2024 Free T4 [Mass/Vol] 1.17 ng/dL 0.76-1.46 [facility] Hemoglobin A1con 10-25-2024 HbA1c (Bld) [Mass fraction] 5.6 % Normal 3.8-5.6 [facility] Comment on above: Result Comment: Norm al < 5.7 % Prediabetic 5.7 - 6.4 % Diabetic >or= 6.5 % Please note range changes. Performed By: #### L 506.1000, L506.0400, L501.9520, L501.9985, L500.4100 #### [facility] [address] [place], [address] Hemoglobin A1c percentageOrd ered By: Marciano Anaya on 12-16-2024 HbA1c (Bld) [Mass fraction] 5.6 % 3.8-5.6 [facility] Comment on above: Normal < 5.7 % Predi abetic 5.7 - 6.4 % Diabetic >or= 6.5 % Please note range changes. High density lipoprotein (HD L) measurementOrdered By: Marciano Anaya on 10-25-2024 Cholesterol in HDL [Mass/Vol] 55 mg/dL >40 [facility] Comment on above: The drugs N-Acetylcy steine and Metamizole may falsely depress this assay. Reference Range HDL <40 mg/dL Low HDL Cholesterol HDL >or= 60 mg/dL High HDL Cholesterol Lipid Profileon 10-25-2024 Cholesterol [Mass/Vol] 161 mg/dL Normal 200 [facility] Comment on above: Result Comment: <200 mg/dL Desirable 200-240 mg/dL Borderline >240 mg/dL High Risk Performed By: #### L 500.2500, L503.7505 #### [facility] [address] [place], [address] Cholesterol in HDL [Mass/Vol] 55 mg/dL Normal [facility] Comment on above: Result Comment: The drugs N-Acetylcysteine and Metamizole may falsely depress this assay. Reference Range HDL <40 mg/dL Low HDL Cholesterol HDL >or= 60 mg/dL High HDL Cholesterol Performed By: #### L 500.2500, L503.7505 #### [facility] [address] [place], [address] Cholesterol in LDL [Mass/Vol] 74 mg/dL Normal 0-130 [facility] Comment on above: Performed By: #### L 500.2500, L503.7505 #### [facility] [address] [place], [address] Cholesterol in VLDL [Mass/Vol] 32 mg/dL Normal 5-40 [facility] Comment on above: Performed By: #### L 500.2500, L503.7505 #### [facility] [address] [place], [address] Triglyceride [Mass/Vol] 160 mg/dL Normal [facility] Comment on above: Result Comment: The drugs N-Acetylcysteine and Metamizole may falsely depress this assay. Serum Triglycerides Reference Interval Normal <150 mg/dL Borderline high 150 - 199 mg/dL High 200 - 499 mg/dL Very High > or = 500 mg/dL Performed By: #### L 500.2500, L503.7505 #### [facility] [address] [place], [address] Low density lipoprotein (LDL ) cholesterol measurementOrdered By: Marciano Anaya on 10-25-2024 Cholesterol in LDL [Mass/Vol] 74 mg/dL 0-130 [facility] Serum or plasma cholesterol measurement (mass/volume)Ordered By: Marciano Anaya on 10-25-2024 Cholesterol [Mass/Vol] 161 mg/dL <200 [facility] Comment on above: <200 mg/dL Desirable 200-240 mg/dL Borderline >240 mg/dL High Risk T4 Free Directon 10-25-2024 T4 FREE DIRECT 1.17 ng/dL Normal 0.76-1.46 [facility] Comment on above: Performed By: #### L 500.2500, L503.8355 #### [facility] [address] [place], [address] TSH QnOrdered By: Marciano grimaldo on 10-25-2024 Thyroid Stimulating Hormone (TSH) 1.190 uIU/mL 0.358-3.740 [facility] Thyroid Stim Hormone (TSH)on 10-25-2024 TSH 1.190 uIU/mL Normal 0.358-3.740 [facility] Comment on above: Performed By: #### L 500.2500, [id number] #### [facility] [address] [place], [address] Triglycerides measurementOrd ered By: Marciano Anaya on 10-25-2024 Triglyceride [Mass/Vol] 160 mg/dL <199 [facility] Comment on above: The drugs N-Acetylcy steine and Metamizole may falsely depress this assay.Serum Triglycerides Reference Interval Normal <150 mg/dL Borderline high 150 - 199 mg/dL High 200 - 499 mg/dL Very High > or = 500 mg/dL Very low density lipoprotein (VLDL) cholesterol measurementOrdered By: Marciano Anaya on 10-25-2024 VLDL Cholesterol 32 mg/dL 5-40 [facility] Vitamin D,25 Hydroxyon 10-25 Vitamin D 25-OH 30.7 ng/mL Normal [facility] Comment on above: Result Comment: Sunita min D 25(OH) Status Range Deficiency <20 ng/mL (50nmol/L) Insufficiency 20 - 30 ng/mL (50 - 75 nmol/L) Sufficiency 30 - 100 ng/mL (75 - 250 nmol/L) Toxicity >100 ng/mL (>250 nmol/L) Performed By: #### L 500.2500, L503.7505 #### [facility] [address] [place], [address] CBC W/Diff, Automatedon 09-11 Absolute Lymph 3.03 X10 3/uL Normal 0.83-4.51 [facility] Comment on above: Performed By: #### L 500.4050, L100.0100 #### [facility] [address] [place], [address] Absolute Neut 4.6 X10 3/uL Normal 2.0-7.7 [facility] Comment on above: Performed By: #### L 500.4050, L100.0100 #### [facility] [address] [place], [address] Basophils/100 WBC (Bld) 0.9 % Normal 0-1 [facility] Comment on above: Performed By: #### L 500.4050, L100.0100 #### [facility] [address] [place], [address] Eosinophils/100 WBC (Bld) 6.2 % High 0-5 [facility] Comment on above: Performed By: #### L 500.4050, L100.0100 #### [facility] [address] [place], [address] Erythrocyte distribution width (RBC) [Ratio] 15.8 % High 11.6-14.6 [facility] Comment on above: Performed By: #### L 500.4050, L100.0100 #### [facility] [address] [place], [address] Hematocrit (Bld) [Volume fraction] 41.8 % Normal 37-47 [facility] Comment on above: Performed By: #### L 500.4050, L100.0100 #### [facility] [address] [place], [address] Hemoglobin (Bld) [Mass/Vol] 12.6 g/dL Normal 12.0-15.0 [facility] Comment on above: Performed By: #### L 500.4050, L100.0100 #### [facility] [address] [place], [address] IG% 0.300 Normal 0.0-0.9 [facility] Comment on above: Result Comment: IG% - Immature Granulocytes (promyelocytes, myelocytes and metamyelocytes) > 1% indicates that a LEFT SHIFT is Present. Performed By: #### L 500.4050, L100.0100 #### [facility] [address] [place], [address] Lymphocytes/100 WBC (Bld) 35.3 % Normal 19-41 [facility] Comment on above: Performed By: #### L 500.4050, L100.0100 #### [facility] [address] [place], [address] MCH (RBC) [Entitic mass] 29.9 pg Normal 27.0-32.0 [facility] Comment on above: Performed By: #### L 500.4050, L100.0100 #### [facility] [address] [place], [address] MCHC (RBC) [Mass/Vol] 30.1 g/dL Low 32-36 [facility] Comment on above: Performed By: #### L 500.4050, L100.0100 #### [facility] [address] [place], [address] MCV (RBC) [Entitic vol] 99.3 fL High 81-99 [facility] Comment on above: Performed By: #### L 500.4050, L100.0100 #### [facility] [address] [place], [address] Monocytes/100 WBC (Bld) 3.7 % Normal 0-10 [facility] Comment on above: Performed By: #### L 500.4050, L100.0100 #### [facility] [address] [place], [address] Neutrophils/100 WBC (Bld) 53.6 % Normal 47-70 [facility] Comment on above: Performed By: #### L 500.4050, L100.0100 #### [facility] [address] [place], [address] Nucleated RBC (Bld) [#/Vol] 0 10*3/uL Normal 0-5 [facility] Comment on above: Performed By: #### L 500.4050, L100.0100 #### [facility] [address] [place], [address] Platelet mean volume (Bld) [Entitic vol] 10.8 fL Normal 6.2-12.0 [facility] Comment on above: Performed By: #### L 500.4050, L100.0100 #### [facility] [address] [place], [address] Platelets (Bld) [#/Vol] 288 10*3/uL Normal 150-450 [facility] Comment on above: Performed By: #### L 500.4050, L100.0100 #### [facility] [address] [place], [address] RBC (Bld) [#/Vol] 4.21 10*6/uL Normal 4.2-5.4 [facility] Comment on above: Performed By: #### L 500.4050, L100.0100 #### [facility] [address] [place], [address] RDW SD 56.7 fl High 35.1-43.9 [facility] Comment on above: Performed By: #### L 500.4050, L100.0100 #### [facility] [address] [place], [address] WBC (Bld) [#/Vol] 8.6 10*3/uL Normal 4.4-11.0 [facility] Comment on above: Performed By: #### L 500.4050, L100.0100 #### [facility] [address] [place], [address] Comprehensive Metabolic Prof [facility] 09-30-2024 Albumin [Mass/Vol] 3.4 g/dL Normal 3.2-5.0 [facility] Comment on above: Performed By: #### L 500.4050, L100.0100 #### [facility] [address] [place], [address] Albumin/Globulin [Mass ratio] 0.9 {ratio} Normal 0.9-2.4 [facility] Comment on above: Performed By: #### L 500.4050, L100.0100 #### [facility] [address] [place], [address] ALK P 120 U/L High 45-117 [facility] Comment on above: Performed By: #### L 500.4050, L100.0100 #### [facility] [address] [place], [address] ALT [Catalytic activity/Vol] 24 U/L Normal 13-56 [facility] Comment on above: Performed By: #### L 500.4050, L100.0100 #### [facility] [address] [place], [address] AST [Catalytic activity/Vol] 17 U/L Normal 15-37 [facility] Comment on above: Performed By: #### L 500.4050, L100.0100 #### [facility] [address] [place], [address] Bilirubin [Mass/Vol] 0.50 mg/dL Normal 0.20-1.00 [facility] Comment on above: Result Comment: For patients on eltrombopag therapy, use of Dimension [place] TBIL is not recommended. Performed By: #### L 500.4050, L100.0100 #### [facility] [address] [place], [address] BUN/CRE 19.0 RATIO Normal 10-20 [facility] Comment on above: Performed By: #### L 500.4050, L100.0100 #### [facility] [address] [place], [address] CA,Total 9.1 mg/dL Normal 8.5-10.1 [facility] Comment on above: Performed By: #### L 500.4050, L100.0100 #### [facility] [address] [place], [address] Chloride [Moles/Vol] 105 mmol/L Normal 98-107 [facility] Comment on above: Performed By: #### L 500.4050, L100.0100 #### [facility] [address] [place], [address] CO2 [Moles/Vol] 26.0 mmol/L Normal 21.0-32.0 [facility] Comment on above: Performed By: #### L 500.4050, L100.0100 #### [facility] [address] [place], [address] Creatinine [Mass/Vol] 1.05 mg/dL High 0.55-1.02 [facility] Comment on above: Result Comment: The validity of the calculated GFR GFRAA in patients over 70 years has not been determined. Clinical correlation is essential. Performed By: #### L 500.4050, L100.0100 #### [facility] [address] [place], [address] EST GFR - AA 65 mL/min Normal >60 [facility] Comment on above: Result Comment: Afri can [place] GFR Calc Performed By: #### L 500.4050, L100.0100 #### [facility] [address] [place], [address] GAP 8 Normal 5-15 [facility] Comment on above: Performed By: #### L 500.4050, L100.0100 #### [facility] [address] [place], [address] GFR/1.73 sq M.predicted among non-blacks MDRD (S/P/Bld) [Vol rate/Area] 54 mL/min/{1.73_m2} Low >60 [facility] Comment on above: Result Comment: Non- GFR Calc Performed By: #### L 500.4050, L100.0100 #### [facility] [address] [place], [address] Globulin (S) [Mass/Vol] 3.8 g/dL Normal 2.2-4.2 [facility] Comment on above: Performed By: #### L 500.4050, L100.0100 #### [facility] [address] [place], [address] Glucose [Mass/Vol] 113 mg/dL High 74-106 [facility] Comment on above: Result Comment: Fast ing Glucose result from 100 to 125 mg/dL suggests IMPAIRED HOMEOSTASIS per A.D.A. criteria. Performed By: #### L 500.4050, L100.0100 #### [facility] [address] [place], [address] Potassium [Moles/Vol] 4.0 mmol/L Normal 3.5-5.1 [facility] Comment on above: Performed By: #### L 500.4050, L100.0100 #### [facility] [address] [place], [address] Sodium [Moles/Vol] 138 mmol/L Normal 136-145 [facility] Comment on above: Performed By: #### L 500.4050, L100.0100 #### [facility] [address] [place], [address] T PROT 7.2 g/dL Normal 6.4-8.2 [facility] Comment on above: Performed By: #### L 500.4050, L100.0100 #### [facility] [address] [place], [address] Urea nitrogen [Mass/Vol] 20 mg/dL High 7-18 [facility] Comment on above: Performed By: #### L 500.4050, L100.0100 #### [facility] [address] [place], [address] Liveron 08-18-2024 Liver [facility] Imaging Services [address] [place] [address] Liver MR#: [id number] Acct: [id number] Name: SEVERIANO LEE Rep #: [id number] : 1945 F 78 From: Jag goldberg MD PCP: Dr. Marciano Anaya, DO Status: REG CLI Study: Liver Date of Exam: 08/18/24 Exam# [id number] Ordering Dr: Amina Palomo MD -[id number] STUDY: ABDOMINAL ULTRASOUND - RIGHT UPPER [...] Marciano Anaya DO; Dr. Amina Palomo MD Trauma Coordinator: Signed Normal [facility] CBC W/Diff, Automatedon 09-2 Absolute Lymph 2.02 X10 3/uL Normal 0.83-4.51 [facility] Comment on above: Performed By: #### L 500.2500, L503.7505 #### [facility] [address] [place], [address] Absolute Neut 3.8 X10 3/uL Normal 2.0-7.7 [facility] Comment on above: Performed By: #### L 500.2500, L503.7505 #### [facility] [address] [place], [address] Basophils/100 WBC (Bld) 1.2 % High 0-1 [facility] Comment on above: Performed By: #### L 500.2500, L503.7505 #### [facility] [address] [place], [address] Eosinophils/100 WBC (Bld) 8.6 % High 0-5 [facility] Comment on above: Performed By: #### L 500.2500, L503.7505 #### [facility] [address] [place], [address] Erythrocyte distribution width (RBC) [Ratio] 15.3 % High 11.6-14.6 [facility] Comment on above: Performed By: #### L 500.2500, L503.7505 #### [facility] [address] [place], [address] Hematocrit (Bld) [Volume fraction] 41.5 % Normal 37-47 [facility] Comment on above: Performed By: #### L 500.2500, L503.7505 #### [facility] [address] [place], [address] Hemoglobin (Bld) [Mass/Vol] 12.6 g/dL Normal 12.0-15.0 [facility] Comment on above: Performed By: #### L 500.2500, L503.7505 #### [facility] [address] [place], [address] IG% 0.200 Normal 0.0-0.9 [facility] Comment on above: Result Comment: IG% - Immature Granulocytes (promyelocytes, myelocytes and metamyelocytes) > 1% indicates that a LEFT SHIFT is Present. Performed By: #### L 500.2500, L503.7505 #### [facility] [address] [place], [address] Lymphocytes/100 WBC (Bld) 30.5 % Normal 19-41 [facility] Comment on above: Performed By: #### L 500.2500, L503.7505 #### [facility] [address] [place], [address] MCH (RBC) [Entitic mass] 29.6 pg Normal 27.0-32.0 [facility] Comment on above: Performed By: #### L 500.2500, [id number] #### [facility] [address] [place], [address] MCHC (RBC) [Mass/Vol] 30.4 g/dL Low 32-36 [facility] Comment on above: Performed By: #### L 500.2500, L503.7505 #### [facility] [address] [place], [address] MCV (RBC) [Entitic vol] 97.6 fL Normal 81-99 [facility] Comment on above: Performed By: #### L 500.2500, [id number] #### [facility] [address] [place], [address] Monocytes/100 WBC (Bld) 2.9 % Normal 0-10 [facility] Comment on above: Performed By: #### L 500.2500, L503.7505 #### [facility] [address] [place], [address] Neutrophils/100 WBC (Bld) 56.6 % Normal 47-70 [facility] Comment on above: Performed By: #### L 500.2500, L503.7505 #### [facility] [address] [place], [address] Nucleated RBC (Bld) [#/Vol] 0 10*3/uL Normal 0-5 [facility] Comment on above: Performed By: #### L 500.2500, L503.7505 #### [facility] [address] [place], [address] Platelet mean volume (Bld) [Entitic vol] 10.9 fL Normal 6.2-12.0 [facility] Comment on above: Performed By: #### L 500.2500, L503.7505 #### [facility] [address] [place], [address] Platelets (Bld) [#/Vol] 274 10*3/uL Normal 150-450 [facility] Comment on above: Performed By: #### L 500.2500, L503.7505 #### [facility] [address] [place], [address] RBC (Bld) [#/Vol] 4.25 10*6/uL Normal 4.2-5.4 [facility] Comment on above: Performed By: #### L 500.2500, L503.7505 #### [facility] [address] [place], [address] RDW SD 54.3 fl High 35.1-43.9 [facility] Comment on above: Performed By: #### L 500.2500, L503.7505 #### [facility] [address] [place], [address] WBC (Bld) [#/Vol] 6.6 10*3/uL Normal 4.4-11.0 [facility] Comment on above: Performed By: #### L 500.2500, L503.7505 #### [facility] [address] [place], [address] Comprehensive Metabolic Prof ilon 08-05-2024 Albumin [Mass/Vol] 3.4 g/dL Normal 3.2-5.0 [facility] Comment on above: Performed By: #### L 500.2500, [id number] #### [facility] [address] [place], [address] Albumin/Globulin [Mass ratio] 0.9 {ratio} Normal 0.9-2.4 [facility] Comment on above: Performed By: #### L 500.2500, [id number] #### [facility] [address] [place], [address] ALK P 137 U/L High 45-117 [facility] Comment on above: Performed By: #### L 500.2500, L503.7505 #### [facility] [address] [place], [address] ALT [Catalytic activity/Vol] 36 U/L Normal 13-56 [facility] Comment on above: Performed By: #### L 500.2500, L503.7505 #### [facility] [address] [place], [address] AST [Catalytic activity/Vol] 39 U/L High 15-37 [facility] Comment on above: Performed By: #### L 500.2500, L503.7505 #### [facility] [address] [place], [address] Bilirubin [Mass/Vol] 0.40 mg/dL Normal 0.20-1.00 [facility] Comment on above: Result Comment: For patients on eltrombopag therapy, use of Dimension [place] TBIL is not recommended. Performed By: #### L 500.2500, L503.7505 #### [facility] [address] [place], [address] BUN/CRE 15.6 RATIO Normal 10-20 [facility] Comment on above: Performed By: #### L 500.2500, L503.7505 #### [facility] [address] [place], [address] CA,Total 9.6 mg/dL Normal 8.5-10.1 [facility] Comment on above: Performed By: #### L 500.2500, L503.7505 #### [facility] [address] [place], [address] Chloride [Moles/Vol] 105 mmol/L Normal 98-107 [facility] Comment on above: Performed By: #### L 500.2500, L503.7505 #### [facility] [address] [place], [address] CO2 [Moles/Vol] 30.0 mmol/L Normal 21.0-32.0 [facility] Comment on above: Performed By: #### L 500.2500, [id number] #### [facility] [address] [place], [address] Creatinine [Mass/Vol] 0.96 mg/dL Normal 0.55-1.02 [facility] Comment on above: Result Comment: The validity of the calculated GFR GFRAA in patients over 70 years has not been determined. Clinical correlation is essential. Performed By: #### L 500.2500, L503.7505 #### [facility] [address] [place], [address] EST GFR - AA 72 mL/min Normal >60 [facility] Comment on above: Result Comment: Afri can [place] GFR Calc Performed By: #### L 500.2500, L503.7505 #### [facility] [address] [place], [address] GAP 4 Low 5-15 [facility] Comment on above: Performed By: #### L 500.2500, L503.7505 #### [facility] [address] [place], [address] GFR/1.73 sq M.predicted among non-blacks MDRD (S/P/Bld) [Vol rate/Area] 60 mL/min/{1.73_m2} Normal >60 [facility] Comment on above: Result Comment: Non- GFR Calc Performed By: #### L 500.2500, L503.7505 #### [facility] [address] [place], [address] Globulin (S) [Mass/Vol] 3.8 g/dL Normal 2.2-4.2 [facility] Comment on above: Performed By: #### L 500.2500, L503.7505 #### [facility] [address] [place], [address] Glucose [Mass/Vol] 112 mg/dL High 74-106 [facility] Comment on above: Result Comment: Fast ing Glucose result from 100 to 125 mg/dL suggests IMPAIRED HOMEOSTASIS per A.D.A. criteria. Performed By: #### L 500.2500, L503.7505 #### [facility] [address] [place], [address] Potassium [Moles/Vol] 4.7 mmol/L Normal 3.5-5.1 [facility] Comment on above: Performed By: #### L 500.2500, L503.7505 #### [facility] [address] [place], [address] Sodium [Moles/Vol] 138 mmol/L Normal 136-145 [facility] Comment on above: Performed By: #### L 500.2500, L503.7505 #### [facility] [address] [place], [address] T PROT 7.2 g/dL Normal 6.4-8.2 [facility] Comment on above: Performed By: #### L 500.2500, L503.7505 #### [facility] [address] [place], [address] Urea nitrogen [Mass/Vol] 15 mg/dL Normal 7-18 [facility] Comment on above: Performed By: #### L 500.2500, L503.7505 #### [facility] [address] [place], [address] Absolute lymphocyte countOrd ered By: Amina Palomo on 03-19-2024 Lymphocytes Auto (Unsp spec) [#/Vol] 2.71 10*3/uL 0.83-4.51 [facility] Automated lymphocyte count a s percentage of total leukocytesOrdered By: Amina Palomo on 03-19-2024 Lymphocytes/100 WBC Auto (Unsp spec) 25.7 % 19-41 [facility] Basophil percentageOrdered B y: Amina Palomo on 03-19-2024 Basophils/100 WBC (Bld) 1.1 % 0-1 [facility] Bilirubin [Mass/Vol] 0.50 mg/dL 0.20-1.00 [facility] Comment on above: For patients on eltr ombopag therapy, use of Dimension [place] TBIL is not recommended. Chloride [Moles/Vol] 104 mmol/L 98-107 [facility] Eosinophils/100 WBC (Bld) 4.2 % 0-5 [facility] Glucose [Mass/Vol] 95 mg/dL 74-106 [facility] Hemoglobin (Bld) [Mass/Vol] 12.6 g/dL 12.0-15.0 [facility] Monocytes/100 WBC (Bld) 9.3 % 0-10 [facility] Neutrophils (Bld) [#/Vol] 6.2 10*3/uL 2.0-7.7 [facility] Neutrophils/100 WBC (Bld) 59.1 % 47-70 [facility] Potassium [Moles/Vol] 4.2 mmol/L 3.5-5.1 [facility] Protein [Mass/Vol] 7.3 g/dL 6.4-8.2 [facility] Sodium [Moles/Vol] 138 mmol/L 136-145 [facility] WBC (Bld) [#/Vol] 10.5 10*3/uL 4.4-11.0 [facility] Determination of erythrocyte mean corpuscular volume (MCV)Ordered By: Amina Palomo on 03-19-2024 MCV (RBC) [Entitic vol] 101.0 fL 81-99 [facility] Erythrocyte distribution wid th ratioOrdered By: Amina Stacia on 03-19-2024 Erythrocyte distribution width (RBC) [Ratio] 15.4 % 11.6-14.6 [facility] Erythrocyte distribution wid th standard deviationOrdered By: [facility] Stacia on 03-19-2024 Erythrocyte distribution width (RBC) [Entitic vol] 56.6 fL 35.1-43.9 [facility] Hematocrit Auto (Bld) [Volum e fraction]Ordered By: [facility] Stacia on 03-19-2024 Hematocrit (Bld) [Volume fraction] 41.1 % 37-47 [facility] Immature granulocytes/100 WB C Auto (Bld)Ordered By: [facility] Stacia on 03-19-2024 Immature granulocytes/100 WBC (Bld) 0.600 % 0.0-0.9 [facility] Comment on above: IG% - Immature Granu locytes (promyelocytes, myelocytes and metamyelocytes) > 1% indicates that a LEFT SHIFT is Present. Laboratory - Chemistry and C hemistry - challengeOrdered By: Amina Palomo on 03-19-2024 Albumin/Globulin [Mass ratio] 0.9 {ratio} 0.9-2.4 [facility] ALP [Catalytic activity/Vol] 114 U/L 45-117 [facility] ALT [Catalytic activity/Vol] 18 U/L 13-56 [facility] CO2 [Moles/Vol] 31.0 mmol/L 21.0-32.0 [facility] Globulin (S) [Mass/Vol] 3.8 g/dL 2.2-4.2 [facility] Urea nitrogen/Creatinine [Mass ratio] 19.3 mg/mg 10-20 [facility] - Hematology and Cell countsOrdered By: Amina Palomo on 03-19-2024 MCH (RBC) [Entitic mass] 31.0 pg 27.0-32.0 [facility] MCHC (RBC) [Mass/Vol] 30.7 g/dL 32-36 [facility] Nucleated RBC/100 WBC (Bld) [Ratio] 0 % 0-5 [facility] Platelet mean volume (Bld) [Entitic vol] 9.3 fL 6.2-12.0 [facility] Platelets (Bld) [#/Vol] 311 10*3/uL 150-450 [facility] No Panel InformationOrdered By: Amina Palomo on 03-19-2024 Estimated GFR (MDRD) Amer 70 mL/min >60 [facility] Comment on above: GFR Calc Estimated GFR (MDRD) Non-Af Amer 58 mL/min >60 [facility] Comment on above: Non- GFR Calc RBC Auto (Bld) [#/Vol]Ordere d By: Amina Palomo on 03-19-2024 RBC (Bld) [#/Vol] 4.07 10*6/uL 4.2-5.4 [facility] Serum or plasma calcium luis enrique urement (mass/volume)Ordered By: Amina Palomo on 03-19-2024 Calcium [Mass/Vol] 9.4 mg/dL 8.5-10.1 [facility] Serum or plasma creatinine m easurement (mass/volume)Ordered By: Amina Palomo on 03-19-2024 Creatinine [Mass/Vol] 0.98 mg/dL 0.55-1.02 [facility] Comment on above: The validity of the calculated GFR & GFRAA in patients over 70 years has not been determined. Clinical correlation is essential. Serum or plasma urea nitroge n measurement (mass/volume)Ordered By: Amina Palomo on 03-19-2024 Urea nitrogen [Mass/Vol] 19 mg/dL 7-18 [facility] Thin prep Papanicolaou smear with manual screeningOrdered By: Amina Palomo on 03-19-2024 Thin prep Papanicolaou smear with manual screening 3.5 g/dL 3.2-5.0 [facility] Thin prep Papanicolaou smear with manual screening 15 U/L 15-37 [facility] Thin prep Papanicolaou smear with manual screening 3 5-15 [facility] Absolute lymphocyte countOrd ered By: [facility] on 03-11-2024 Lymphocytes Auto (Unsp spec) [#/Vol] 2.07 10*3/uL 0.83-4.51 [facility] Automated lymphocyte count a s percentage of total leukocytesOrdered By: [facility] Stacia on 03-11-2024 Lymphocytes/100 WBC Auto (Unsp spec) 26.1 % 19-41 [facility] Basophil percentageOrdered B y: Amina Palomo on 03-11-2024 Basophils/100 WBC (Bld) 0.8 % 0-1 [facility] Bilirubin [Mass/Vol] 0.40 mg/dL 0.20-1.00 [facility] Comment on above: For patients on eltr ombopag therapy, use of Dimension [place] TBIL is not recommended. Chloride [Moles/Vol] 105 mmol/L 98-107 [facility] Eosinophils/100 WBC (Bld) 5.7 % 0-5 [facility] Glucose [Mass/Vol] 115 mg/dL 74-106 [facility] Comment on above: Fasting Glucose resu lt from 100 to 125 mg/dL suggests IMPAIRED HOMEOSTASIS per A.D.A. criteria. Hemoglobin (Bld) [Mass/Vol] 12.4 g/dL 12.0-15.0 [facility] Monocytes/100 WBC (Bld) 7.1 % 0-10 [facility] Neutrophils (Bld) [#/Vol] 4.8 10*3/uL 2.0-7.7 [facility] Neutrophils/100 WBC (Bld) 59.9 % 47-70 [facility] Potassium [Moles/Vol] 4.2 mmol/L 3.5-5.1 [facility] Protein [Mass/Vol] 7.3 g/dL 6.4-8.2 [facility] Sodium [Moles/Vol] 137 mmol/L 136-145 [facility] WBC (Bld) [#/Vol] 7.9 10*3/uL 4.4-11.0 [facility] Determination of erythrocyte mean corpuscular volume (MCV)Ordered By: Amina Palomo on 03-11-2024 MCV (RBC) [Entitic vol] 100.8 fL 81-99 [facility] Erythrocyte distribution wid th ratioOrdered By: Amina Palomo on 03-11-2024 Erythrocyte distribution width (RBC) [Ratio] 15.3 % 11.6-14.6 [facility] Erythrocyte distribution wid th standard deviationOrdered By: Amina Palomo on 03-11-2024 Erythrocyte distribution width (RBC) [Entitic vol] 56.2 fL 35.1-43.9 [facility] Hematocrit Auto (Bld) [Volum e fraction]Ordered By: Amina Palomo on 03-11-2024 Hematocrit (Bld) [Volume fraction] 39.8 % 37-47 [facility] Immature granulocytes/100 WB C Auto (Bld)Ordered By: Amina Palomo on 03-11-2024 Immature granulocytes/100 WBC (Bld) 0.400 % 0.0-0.9 [facility] Comment on above: IG% - Immature Granu locytes (promyelocytes, myelocytes and metamyelocytes) > 1% indicates that a LEFT SHIFT is Present. Laboratory - Chemistry and C hemistry - challengeOrdered By: Amina Palomo on 03-11-2024 Albumin/Globulin [Mass ratio] 0.9 {ratio} 0.9-2.4 [facility] ALP [Catalytic activity/Vol] 124 U/L 45-117 [facility] ALT [Catalytic activity/Vol] 22 U/L 13-56 [facility] CO2 [Moles/Vol] 26.0 mmol/L 21.0-32.0 [facility] Globulin (S) [Mass/Vol] 3.9 g/dL 2.2-4.2 [facility] Urea nitrogen/Creatinine [Mass ratio] 15.5 mg/mg 10-20 [facility] - Hematology and Cell countsOrdered By: Amina Palomo on 03-11-2024 MCH (RBC) [Entitic mass] 31.4 pg 27.0-32.0 [facility] MCHC (RBC) [Mass/Vol] 31.2 g/dL 32-36 [facility] Nucleated RBC/100 WBC (Bld) [Ratio] 0 % 0-5 [facility] Platelet mean volume (Bld) [Entitic vol] 10.0 fL 6.2-12.0 [facility] Platelets (Bld) [#/Vol] 287 10*3/uL 150-450 [facility] No Panel InformationOrdered By: Amina Palomo on 03-11-2024 Estimated GFR (MDRD) Amer 51 mL/min >60 [facility] Comment on above: GFR Calc Estimated GFR (MDRD) Non-Af Amer 43 mL/min >60 [facility] Comment on above: Non- GFR Calc RBC Auto (Bld) [#/Vol]Ordere d By: Amina Palomo on 03-11-2024 RBC (Bld) [#/Vol] 3.95 10*6/uL 4.2-5.4 [facility] Serum or plasma calcium luis enrique urement (mass/volume)Ordered By: Amina Palomo on 03-11-2024 Calcium [Mass/Vol] 9.6 mg/dL 8.5-10.1 [facility] Serum or plasma creatinine m easurement (mass/volume)Ordered By: Amina Palomo on 03-11-2024 Creatinine [Mass/Vol] 1.29 mg/dL 0.55-1.02 [facility] Comment on above: The validity of the calculated GFR & GFRAA in patients over 70 years has not been determined. Clinical correlation is essential. Serum or plasma urea nitroge n measurement (mass/volume)Ordered By: Amina Palomo on 03-11-2024 Urea nitrogen [Mass/Vol] 20 mg/dL 7-18 [facility] Thin prep Papanicolaou smear with manual screeningOrdered By: Amina Palomo on 03-11-2024 Thin prep Papanicolaou smear with manual screening 3.4 g/dL 3.2-5.0 [facility] Thin prep Papanicolaou smear with manual screening 18 U/L 15-37 [facility] Thin prep Papanicolaou smear with manual screening 6 5-15 [facility] Absolute lymphocyte countOrd ered By: Amina Palomo on 01-06-2024 Lymphocytes Auto (Unsp spec) [#/Vol] 2.27 10*3/uL 0.83-4.51 [facility] Automated lymphocyte count a s percentage of total leukocytesOrdered By: Amina Palomo on 01-06-2024 Lymphocytes/100 WBC Auto (Unsp spec) 24.1 % 19-41 [facility] Basophil percentageOrdered B y: Amina Palomo on 01-06-2024 Basophils/100 WBC (Bld) 0.8 % 0-1 [facility] Bilirubin [Mass/Vol] 0.30 mg/dL 0.20-1.00 [facility] Comment on above: For patients on eltr ombopag therapy, use of Dimension [place] TBIL is not recommended. Chloride [Moles/Vol] 107 mmol/L 98-107 [facility] Eosinophils/100 WBC (Bld) 5.6 % 0-5 [facility] Glucose [Mass/Vol] 122 mg/dL 74-106 [facility] Comment on above: Fasting Glucose resu lt from 100 to 125 mg/dL suggests IMPAIRED HOMEOSTASIS per A.D.A. criteria. Hemoglobin (Bld) [Mass/Vol] 12.3 g/dL 12.0-15.0 [facility] Monocytes/100 WBC (Bld) 9.8 % 0-10 [facility] Neutrophils (Bld) [#/Vol] 5.6 10*3/uL 2.0-7.7 [facility] Neutrophils/100 WBC (Bld) 59.4 % 47-70 [facility] Potassium [Moles/Vol] 4.5 mmol/L 3.5-5.1 [facility] Protein [Mass/Vol] 7.1 g/dL 6.4-8.2 [facility] Sodium [Moles/Vol] 140 mmol/L 136-145 [facility] WBC (Bld) [#/Vol] 9.4 10*3/uL 4.4-11.0 [facility] Determination of erythrocyte mean corpuscular volume (MCV)Ordered By: Amina Palomo on 01-06-2024 MCV (RBC) [Entitic vol] 102.3 fL 81-99 [facility] Erythrocyte distribution wid th ratioOrdered By: Amina Palomo on 01-06-2024 Erythrocyte distribution width (RBC) [Ratio] 16.3 % 11.6-14.6 [facility] Erythrocyte distribution wid th standard deviationOrdered By: Amina Palomo on 01-06-2024 Erythrocyte distribution width (RBC) [Entitic vol] 60.7 fL 35.1-43.9 [facility] Hematocrit Auto (Bld) [Volum e fraction]Ordered By: Amina Palomo on 01-06-2024 Hematocrit (Bld) [Volume fraction] 40.2 % 37-47 [facility] Immature granulocytes/100 WB C Auto (Bld)Ordered By: Aminashelia Palomo on 01-06-2024 Immature granulocytes/100 WBC (Bld) 0.300 % 0.0-0.9 [facility] Comment on above: IG% - Immature Granu locytes (promyelocytes, myelocytes and metamyelocytes) > 1% indicates that a LEFT SHIFT is Present. Laboratory - Chemistry and C hemistry - challengeOrdered By: Aminashelia Palomo on 01-06-2024 Albumin/Globulin [Mass ratio] 1.0 {ratio} 0.9-2.4 [facility] ALP [Catalytic activity/Vol] 120 U/L 45-117 [facility] ALT [Catalytic activity/Vol] 23 U/L 13-56 [facility] CO2 [Moles/Vol] 28.0 mmol/L 21.0-32.0 [facility] Globulin (S) [Mass/Vol] 3.6 g/dL 2.2-4.2 [facility] Urea nitrogen/Creatinine [Mass ratio] 19.1 mg/mg 10-20 [facility] - Hematology and Cell countsOrdered By: Amina Palomo on 01-06-2024 MCH (RBC) [Entitic mass] 31.3 pg 27.0-32.0 [facility] MCHC (RBC) [Mass/Vol] 30.6 g/dL 32-36 [facility] Nucleated RBC/100 WBC (Bld) [Ratio] 0 % 0-5 [facility] Platelet mean volume (Bld) [Entitic vol] 10.2 fL 6.2-12.0 [facility] Platelets (Bld) [#/Vol] 265 10*3/uL 150-450 [facility] No Panel InformationOrdered By: Amina Palomo on 01-06-2024 Estimated GFR (MDRD) Amer 62 mL/min >60 [facility] Comment on above: GFR Calc Estimated GFR (MDRD) Non-Af Amer 51 mL/min >60 [facility] Comment on above: Non- GFR Calc RBC Auto (Bld) [#/Vol]Ordere d By: Amina Palomo on 01-06-2024 RBC (Bld) [#/Vol] 3.93 10*6/uL 4.2-5.4 [facility] Serum or plasma calcium luis enrique urement (mass/volume)Ordered By: Amina Palomo on 01-06-2024 Calcium [Mass/Vol] 9.6 mg/dL 8.5-10.1 [facility] Serum or plasma creatinine m easurement (mass/volume)Ordered By: Amina Palomo on 01-06-2024 Creatinine [Mass/Vol] 1.10 mg/dL 0.55-1.02 [facility] Comment on above: The validity of the calculated GFR & GFRAA in patients over 70 years has not been determined. Clinical correlation is essential. Serum or plasma urea nitroge n measurement (mass/volume)Ordered By: Amina Palomo on 01-06-2024 Urea nitrogen [Mass/Vol] 21 mg/dL 7-18 [facility] Thin prep Papanicolaou smear with manual screeningOrdered By: Amina Palomo on 01-06-2024 Thin prep Papanicolaou smear with manual screening 3.5 g/dL 3.2-5.0 [facility] Thin prep Papanicolaou smear with manual screening 16 U/L 15-37 [facility] Thin prep Papanicolaou smear with manual screening 5 5-15 [facility] Absolute lymphocyte countOrd ered By: Marciano Anaya on 10-10-2023 Lymphocytes Auto (Unsp spec) [#/Vol] 1.66 10*3/uL 0.83-4.51 [facility] Basophil percentageOrdered B y: Marciano Anaya on 10-10-2023 Basophils/100 WBC (Bld) 1.2 % 0-1 [facility] Bilirubin [Mass/Vol] 0.40 mg/dL 0.20-1.00 [facility] Comment on above: For patients on eltr ombopag therapy, use of Dimension [place] TBIL is not recommended. Chloride [Moles/Vol] 104 mmol/L 98-107 [facility] Cholesterol [Mass/Vol] 214 mg/dL <200 [facility] Comment on above: <200 mg/dL Desirable 200-240 mg/dL Borderline >240 mg/dL High Risk Eosinophils/100 WBC (Bld) 6.6 % 0-5 [facility] Glucose [Mass/Vol] 93 mg/dL 74-106 [facility] Neutrophils (Bld) [#/Vol] 4.2 10*3/uL 2.0-7.7 [facility] Neutrophils/100 WBC (Bld) 61.8 % 47-70 [facility] Potassium [Moles/Vol] 4.1 mmol/L 3.5-5.1 [facility] Protein [Mass/Vol] 7.3 g/dL 6.4-8.2 [facility] Sodium [Moles/Vol] 138 mmol/L 136-145 [facility] Triglyceride [Mass/Vol] 184 mg/dL <199 [facility] Comment on above: The drugs N-Acetylcy steine and Metamizole may falsely depress this assay.Serum Triglycerides Reference Interval Normal <150 mg/dL Borderline high 150 - 199 mg/dL High 200 - 499 mg/dL Very High > or = 500 mg/dL WBC (Bld) [#/Vol] 6.8 10*3/uL 4.4-11.0 [facility] Blood erythrocytes count (nu mber/volume)Ordered By: Marciano Anaya on 10-10-2023 RBC (Bld) [#/Vol] 3.86 10*6/uL 4.2-5.4 [facility] Blood hemoglobin measurement (mass/volume)Ordered By: Marciano Anaya on 10-10-2023 Hemoglobin (Bld) [Mass/Vol] 12.1 g/dL 12.0-15.0 [facility] Blood lymphocytes/100 leukoc ytesOrdered By: Marciano Anaya on 10-10-2023 Lymphocytes/100 WBC (Bld) 24.4 % 19-41 [facility] Blood monocytes/100 leukocyt esOrdered By: Marciano Anaya on 10-10-2023 Monocytes/100 WBC (Bld) 5.7 % 0-10 [facility] Blood platelet mean volumeOr dered By: Marciano Anaya on 10-10-2023 Platelet mean volume (Bld) [Entitic vol] 10.1 fL 6.2-12.0 [facility] Determination of erythrocyte mean corpuscular volume (MCV)Ordered By: Marciano Anaya on 10-10-2023 MCV (RBC) [Entitic vol] 101.8 fL 81-99 [facility] Hematocrit Auto (Bld) [Volum e fraction]Ordered By: Marciano Anaya on 10-10-2023 Hematocrit (Bld) [Volume fraction] 39.3 % 37-47 [facility] Laboratory - Chemistry and C hemistry - challengeOrdered By: Marciano Anaya on 10-10-2023 ALP [Catalytic activity/Vol] 114 U/L 45-117 [facility] ALT [Catalytic activity/Vol] 29 U/L 13-56 [facility] CO2 [Moles/Vol] 26.0 mmol/L 21.0-32.0 [facility] Free T4 [Mass/Vol] 1.23 ng/dL 0.76-1.46 [facility] Globulin (S) [Mass/Vol] 3.8 g/dL 2.2-4.2 [facility] Urea nitrogen/Creatinine [Mass ratio] 22.8 mg/mg 10-20 [facility] Laboratory - Hematology and Cell countsOrdered By: Marciano Anaya on 10-10-2023 Erythrocyte distribution width (RBC) [Entitic vol] 55.7 fL 35.1-43.9 [facility] Erythrocyte distribution width (RBC) [Ratio] 15.0 % 11.6-14.6 [facility] Immature granulocytes/100 WBC (Bld) 0.300 % 0.0-0.9 [facility] Comment on above: IG% - Immature Granu locytes (promyelocytes, myelocytes and metamyelocytes) > 1% indicates that a LEFT SHIFT is Present. MCH (RBC) [Entitic mass] 31.3 pg 27.0-32.0 [facility] Nucleated RBC/100 WBC (Bld) [Ratio] 0 % 0-5 [facility] MCHC Auto (RBC) [Mass/Vol]Or dered By: Marciano Anaya on 10-10-2023 MCHC (RBC) [Mass/Vol] 30.8 g/dL 32-36 [facility] No Panel InformationOrdered By: Marciano Anaya on 10-10-2023 Estimated GFR (MDRD) Amer 72 mL/min >60 [facility] Comment on above: GFR Calc Estimated GFR (MDRD) Non-Af Amer 59 mL/min >60 [facility] Comment on above: Non- GFR Calc Thyroid Stimulating Hormone (TSH) 4.02 uIU/mL 0.358-3.74 [facility] Platelets bldOrdered By: Alma Delia Anaya on 10-10-2023 Platelets (Bld) [#/Vol] 266 10*3/uL 150-450 [facility] Serum or plasma albumin luis enrique urement (mass/volume)Ordered By: Marciano Anaya on 10-10-2023 Albumin [Mass/Vol] 3.5 g/dL 3.2-5.0 [facility] Serum or plasma albumin/glob ulin mass ratioOrdered By: Marciano Anaya on 10-10-2023 Albumin/Globulin [Mass ratio] 0.9 {ratio} 0.9-2.4 [facility] Serum or plasma calcium luis enrique urement (mass/volume)Ordered By: Marciano Anaya on 10-10-2023 Calcium [Mass/Vol] 8.9 mg/dL 8.5-10.1 [facility] Serum or plasma cholesterol in HDL measurement (mass/volume)Ordered By: Marciano Anaya on 10-10-2023 Cholesterol in HDL [Mass/Vol] 55 mg/dL >40 [facility] Comment on above: The drugs N-Acetylcy steine and Metamizole may falsely depress this assay. Reference Range HDL <40 mg/dL Low HDL Cholesterol HDL >or= 60 mg/dL High HDL Cholesterol Serum or plasma cholesterol in VLDL measurement (mass/volume)Ordered By: Marciano Anaya on 10-10-2023 Cholesterol in VLDL [Mass/Vol] 37 mg/dL 5-40 [facility] Serum or plasma creatinine m easurement (mass/volume)Ordered By: Marciano Anaya on 10-10-2023 Creatinine [Mass/Vol] 0.96 mg/dL 0.55-1.02 [facility] Comment on above: The validity of the calculated GFR & GFRAA in patients over 70 years has not been determined. Clinical correlation is essential. Serum or plasma low density lipoprotein (LDL) cholesterol measurement (mass/volume)Ordered By: Marciano Anaya on 10-10-2023 Cholesterol in LDL [Mass/Vol] 122 mg/dL 0-130 [facility] Serum or plasma urea nitroge n measurement (mass/volume)Ordered By: Marciano Anaya on 10-10-2023 Urea nitrogen [Mass/Vol] 22 mg/dL 7-18 [facility] Thin prep Papanicolaou smear with manual screeningOrdered By: Marciano Anaya on 10-10-2023 Thin prep Papanicolaou smear with manual screening 23 U/L 15-37 [facility] Thin prep Papanicolaou smear with manual screening 8 5-15 [facility] Whole blood hemoglobin A1c/t otal hemoglobin ratio (mass fraction)Ordered By: Marciano Anaya on 10-10-2023 HbA1c (Bld) [Mass fraction] 5.6 % 3.8-5.6 [facility] Comment on above: Normal < 5.7 % Predi abetic 5.7 - 6.4 % Diabetic >or= 6.5 % Please note range changes. Absolute lymphocyte countOrd ered By: Amina Palomo on 07-18-2023 Lymphocytes Auto (Unsp spec) [#/Vol] 1.91 10*3/uL 0.83-4.51 [facility] Basophil percentageOrdered B y: Amina Palomo on 07-18-2023 Basophils/100 WBC (Bld) 1.0 % 0-1 [facility] Bilirubin [Mass/Vol] 0.30 mg/dL 0.20-1.00 [facility] Comment on above: For patients on eltr ombopag therapy, use of Dimension [place] TBIL is not recommended. Chloride [Moles/Vol] 104 mmol/L 98-107 [facility] Eosinophils/100 WBC (Bld) 4.1 % 0-5 [facility] Glucose [Mass/Vol] 108 mg/dL 74-106 [facility] Comment on above: Fasting Glucose resu lt from 100 to 125 mg/dL suggests IMPAIRED HOMEOSTASIS per A.D.A. criteria. Neutrophils (Bld) [#/Vol] 5.7 10*3/uL 2.0-7.7 [facility] Neutrophils/100 WBC (Bld) 65.4 % 47-70 [facility] Potassium [Moles/Vol] 4.2 mmol/L 3.5-5.1 [facility] Protein [Mass/Vol] 7.4 g/dL 6.4-8.2 [facility] Sodium [Moles/Vol] 137 mmol/L 136-145 [facility] WBC (Bld) [#/Vol] 8.7 10*3/uL 4.4-11.0 [facility] Blood erythrocytes count (nu mber/volume)Ordered By: Amina Palomo on 07-18-2023 RBC (Bld) [#/Vol] 3.87 10*6/uL 4.2-5.4 [facility] Blood hemoglobin measurement (mass/volume)Ordered By: Amina Palomo on 07-18-2023 Hemoglobin (Bld) [Mass/Vol] 12.2 g/dL 12.0-15.0 [facility] Blood lymphocytes/100 leukoc ytesOrdered By: Amina Palomo on 07-18-2023 Lymphocytes/100 WBC (Bld) 22.0 % 19-41 [facility] Blood monocytes/100 leukocyt esOrdered By: Amina Palomo on 07-18-2023 Monocytes/100 WBC (Bld) 6.9 % 0-10 [facility] Blood platelet mean volumeOr dered By: Amina Palomo on 07-18-2023 Platelet mean volume (Bld) [Entitic vol] 10.3 fL 6.2-12.0 [facility] Determination of erythrocyte mean corpuscular volume (MCV)Ordered By: Amina Palomo on 07-18-2023 MCV (RBC) [Entitic vol] 102.8 fL 81-99 [facility] Hematocrit Auto (Bld) [Volum e fraction]Ordered By: Amina Palomo on 07-18-2023 Hematocrit (Bld) [Volume fraction] 39.8 % 37-47 [facility] Laboratory - Chemistry and C hemistry - challengeOrdered By: Amina Palomo on 07-18-2023 ALP [Catalytic activity/Vol] 121 U/L 45-117 [facility] ALT [Catalytic activity/Vol] 17 U/L 13-56 [facility] CO2 [Moles/Vol] 27.0 mmol/L 21.0-32.0 [facility] Globulin (S) [Mass/Vol] 3.9 g/dL 2.2-4.2 [facility] Urea nitrogen/Creatinine [Mass ratio] 20.7 mg/mg 10-20 [facility] Laboratory - Hematology and Cell countsOrdered By: Amina Palomo on 07-18-2023 Erythrocyte distribution width (RBC) [Entitic vol] 55.8 fL 35.1-43.9 [facility] Erythrocyte distribution width (RBC) [Ratio] 15.1 % 11.6-14.6 [facility] Immature granulocytes/100 WBC (Bld) 0.600 % 0.0-0.9 [facility] Comment on above: IG% - Immature Granu locytes (promyelocytes, myelocytes and metamyelocytes) > 1% indicates that a LEFT SHIFT is Present. MCH (RBC) [Entitic mass] 31.5 pg 27.0-32.0 [facility] Nucleated RBC/100 WBC (Bld) [Ratio] 0 % 0-5 [facility] MCHC Auto (RBC) [Mass/Vol]Or dered By: Amina Palomo on 07-18-2023 MCHC (RBC) [Mass/Vol] 30.7 g/dL 32-36 [facility] No Panel InformationOrdered By: Amina Palomo on 07-18-2023 Estimated GFR (MDRD) Amer 76 mL/min >60 [facility] Comment on above: GFR Calc Estimated GFR (MDRD) Non-Af Amer 63 mL/min >60 [facility] Comment on above: Non- GFR Calc Platelets bldOrdered By: Dale Palomo on 07-18-2023 Platelets (Bld) [#/Vol] 281 10*3/uL 150-450 [facility] Serum or plasma albumin luis enrique urement (mass/volume)Ordered By: Amina Palomo on 07-18-2023 Albumin [Mass/Vol] 3.5 g/dL 3.2-5.0 [facility] Serum or plasma albumin/glob ulin mass ratioOrdered By: Amina Palomo on 07-18-2023 Albumin/Globulin [Mass ratio] 0.9 {ratio} 0.9-2.4 [facility] Serum or plasma calcium luis enrique urement (mass/volume)Ordered By: Amina Palomo on 07-18-2023 Calcium [Mass/Vol] 9.2 mg/dL 8.5-10.1 [facility] Serum or plasma creatinine m easurement (mass/volume)Ordered By: Amina Palomo on 07-18-2023 Creatinine [Mass/Vol] 0.92 mg/dL 0.55-1.02 [facility] Comment on above: The validity of the calculated GFR & GFRAA in patients over 70 years has not been determined. Clinical correlation is essential. Serum or plasma urea nitroge n measurement (mass/volume)Ordered By: Amina Palomo on 07-18-2023 Urea nitrogen [Mass/Vol] 19 mg/dL 7-18 [facility] Thin prep Papanicolaou smear with manual screeningOrdered By: Amina Palomo on 07-18-2023 Thin prep Papanicolaou smear with manual screening 14 U/L 15-37 [facility] Thin prep Papanicolaou smear with manual screening 6 5-15 [facility] Absolute lymphocyte countOrd ered By: Dr. Palomo on 04-21-2023 Lymphocytes Auto (Unsp spec) [#/Vol] 2.18 10*3/uL 0.83-4.51 [facility] Basophil percentageOrdered B y: Dr. Palomo on 04-21-2023 Basophils/100 WBC (Bld) 1.1 % 0-1 [facility] Bilirubin [Mass/Vol] 0.30 mg/dL 0.20-1.00 [facility] Comment on above: For patients on eltr ombopag therapy, use of Dimension [place] TBIL is not recommended. Chloride [Moles/Vol] 104 mmol/L 98-107 [facility] Eosinophils/100 WBC (Bld) 6.2 % 0-5 [facility] Glucose [Mass/Vol] 102 mg/dL 74-106 [facility] Comment on above: Fasting Glucose resu lt from 100 to 125 mg/dL suggests IMPAIRED HOMEOSTASIS per A.D.A. criteria. Neutrophils (Bld) [#/Vol] 4.0 10*3/uL 2.0-7.7 [facility] Neutrophils/100 WBC (Bld) 54.7 % 47-70 [facility] Potassium [Moles/Vol] 4.7 mmol/L 3.5-5.1 [facility] Protein [Mass/Vol] 7.5 g/dL 6.4-8.2 [facility] Sodium [Moles/Vol] 138 mmol/L 136-145 [facility] WBC (Bld) [#/Vol] 7.4 10*3/uL 4.4-11.0 [facility] Blood erythrocytes count (nu mber/volume)Ordered By: Dr. Palomo on 04-21-2023 RBC (Bld) [#/Vol] 3.96 10*6/uL 4.2-5.4 [facility] Blood hemoglobin measurement (mass/volume)Ordered By: Dr. Palomo on 04-21-2023 Hemoglobin (Bld) [Mass/Vol] 12.3 g/dL 12.0-15.0 [facility] Blood lymphocytes/100 leukoc ytesOrdered By: Dr. Palomo on 04-21-2023 Lymphocytes/100 WBC (Bld) 29.5 % 19-41 [facility] Blood monocytes/100 leukocyt esOrdered By: Dr. Palomo on 04-21-2023 Monocytes/100 WBC (Bld) 8.0 % 0-10 [facility] Blood platelet mean volumeOr dered By: Dr. Palomo on 04-21-2023 Platelet mean volume (Bld) [Entitic vol] 10.3 fL 6.2-12.0 [facility] Determination of erythrocyte mean corpuscular volume (MCV)Ordered By: Dr. Palomo on 04-21-2023 MCV (RBC) [Entitic vol] 102.0 fL 81-99 [facility] Hematocrit Auto (Bld) [Volum e fraction]Ordered By: Dr. Palomo on 04-21-2023 Hematocrit (Bld) [Volume fraction] 40.4 % 37-47 [facility] Laboratory - Chemistry and C hemistry - challengeOrdered By: Dr. Palomo on 04-21-2023 ALP [Catalytic activity/Vol] 134 U/L 45-117 [facility] ALT [Catalytic activity/Vol] 15 U/L 13-56 [facility] CO2 [Moles/Vol] 29.0 mmol/L 21.0-32.0 [facility] Globulin (S) [Mass/Vol] 3.9 g/dL 2.2-4.2 [facility] Urea nitrogen/Creatinine [Mass ratio] 17.9 mg/mg 10-20 [facility] Laboratory - Hematology and Cell countsOrdered By: Dr. Palomo on 04-21-2023 Erythrocyte distribution width (RBC) [Entitic vol] 55.9 fL 35.1-43.9 [facility] Erythrocyte distribution width (RBC) [Ratio] 14.9 % 11.6-14.6 [facility] Immature granulocytes/100 WBC (Bld) 0.500 % 0.0-0.9 [facility] Comment on above: IG% - Immature Granu locytes (promyelocytes, myelocytes and metamyelocytes) > 1% indicates that a LEFT SHIFT is Present. MCH (RBC) [Entitic mass] 31.1 pg 27.0-32.0 [facility] Nucleated RBC/100 WBC (Bld) [Ratio] 0 % 0-5 [facility] MCHC Auto (RBC) [Mass/Vol]Or dered By: Dr. Palomo on 04-21-2023 MCHC (RBC) [Mass/Vol] 30.4 g/dL 32-36 [facility] No Panel InformationOrdered By: Dr. Palomo on 04-21-2023 Estimated GFR (MDRD) Amer 73 mL/min >60 [facility] Comment on above: GFR Calc Estimated GFR (MDRD) Non-Af Amer 61 mL/min >60 [facility] Comment on above: Non- GFR Calc Platelets bldOrdered By: Dr. Palomo on 04-21-2023 Platelets (Bld) [#/Vol] 270 10*3/uL 150-450 [facility] Serum or plasma albumin luis enrique urement (mass/volume)Ordered By: Dr. Palomo on 04-21-2023 Albumin [Mass/Vol] 3.6 g/dL 3.2-5.0 [facility] Serum or plasma albumin/glob ulin mass ratioOrdered By: Dr. Palomo on 04-21-2023 Albumin/Globulin [Mass ratio] 0.9 {ratio} 0.9-2.4 [facility] Serum or plasma calcium luis enrique urement (mass/volume)Ordered By: Dr. Palomo on 04-21-2023 Calcium [Mass/Vol] 9.3 mg/dL 8.5-10.1 [facility] Serum or plasma creatinine m easurement (mass/volume)Ordered By: Dr. Palomo on 04-21-2023 Creatinine [Mass/Vol] 0.95 mg/dL 0.55-1.02 [facility] Comment on above: The validity of the calculated GFR & GFRAA in patients over 70 years has not been determined. Clinical correlation is essential. Serum or plasma urea nitroge n measurement (mass/volume)Ordered By: Dr. Palomo on 04-21-2023 Urea nitrogen [Mass/Vol] 17 mg/dL 7-18 [facility] Thin prep Papanicolaou smear with manual screeningOrdered By: Dr. Palomo on 04-21-2023 Thin prep Papanicolaou smear with manual screening 15 U/L 15-37 [facility] Thin prep Papanicolaou smear with manual screening 5 5-15 [facility] Absolute lymphocyte countOrd ered By: Dr. Palomo on 01-20-2023 Lymphocytes Auto (Unsp spec) [#/Vol] 2.19 10*3/uL 0.83-4.51 [facility] Basophil percentageOrdered B y: Dr. Palomo on 01-20-2023 Basophils/100 WBC (Bld) 0.9 % 0-1 [facility] Bilirubin [Mass/Vol] 0.30 mg/dL 0.20-1.00 [facility] Comment on above: For patients on eltr ombopag therapy, use of Dimension [place] TBIL is not recommended. Chloride [Moles/Vol] 103 mmol/L 98-107 [facility] Eosinophils/100 WBC (Bld) 6.6 % 0-5 [facility] Glucose [Mass/Vol] 81 mg/dL 74-106 [facility] Neutrophils (Bld) [#/Vol] 5.2 10*3/uL 2.0-7.7 [facility] Neutrophils/100 WBC (Bld) 57.8 % 47-70 [facility] Potassium [Moles/Vol] 4.2 mmol/L 3.5-5.1 [facility] Protein [Mass/Vol] 7.1 g/dL 6.4-8.2 [facility] Sodium [Moles/Vol] 141 mmol/L 136-145 [facility] WBC (Bld) [#/Vol] 9.0 10*3/uL 4.4-11.0 [facility] Blood erythrocytes count (nu mber/volume)Ordered By: Dr. Palomo on 01-20-2023 RBC (Bld) [#/Vol] 3.76 10*6/uL 4.2-5.4 [facility] Blood hemoglobin measurement (mass/volume)Ordered By: Dr. Palomo on 01-20-2023 Hemoglobin (Bld) [Mass/Vol] 12.0 g/dL 12.0-15.0 [facility] Blood lymphocytes/100 leukoc ytesOrdered By: Dr. Palomo on 01-20-2023 Lymphocytes/100 WBC (Bld) 24.4 % 19-41 [facility] Blood monocytes/100 leukocyt esOrdered By: Dr. Palomo on 01-20-2023 Monocytes/100 WBC (Bld) 10.0 % 0-10 [facility] Blood platelet mean volumeOr dered By: Dr. Palomo on 01-20-2023 Platelet mean volume (Bld) [Entitic vol] 10.2 fL 6.2-12.0 [facility] Determination of erythrocyte mean corpuscular volume (MCV)Ordered By: Dr. Palomo on 01-20-2023 MCV (RBC) [Entitic vol] 104.0 fL 81-99 [facility] Hematocrit Auto (Bld) [Volum e fraction]Ordered By: Dr. Palomo on 01-20-2023 Hematocrit (Bld) [Volume fraction] 39.1 % 37-47 [facility] Laboratory - Chemistry and C hemistry - challengeOrdered By: Dr. Palomo on 01-20-2023 ALP [Catalytic activity/Vol] 109 U/L 45-117 [facility] ALT [Catalytic activity/Vol] 18 U/L 13-56 [facility] CO2 [Moles/Vol] 30.0 mmol/L 21.0-32.0 [facility] Globulin (S) [Mass/Vol] 3.7 g/dL 2.2-4.2 [facility] Urea nitrogen/Creatinine [Mass ratio] 24.8 mg/mg 10-20 [facility] Laboratory - Hematology and Cell countsOrdered By: Dr. Palomo on 01-20-2023 Erythrocyte distribution width (RBC) [Entitic vol] 58.1 fL 35.1-43.9 [facility] Erythrocyte distribution width (RBC) [Ratio] 15.6 % 11.6-14.6 [facility] Immature granulocytes/100 WBC (Bld) 0.300 % 0.0-0.9 [facility] Comment on above: IG% - Immature Granu locytes (promyelocytes, myelocytes and metamyelocytes) > 1% indicates that a LEFT SHIFT is Present. MCH (RBC) [Entitic mass] 31.9 pg 27.0-32.0 [facility] Nucleated RBC/100 WBC (Bld) [Ratio] 0 % 0-5 [facility] MCHC Auto (RBC) [Mass/Vol]Or dered By: Dr. Palomo on 01-20-2023 MCHC (RBC) [Mass/Vol] 30.7 g/dL 32-36 [facility] No Panel InformationOrdered By: Dr. Palomo on 01-20-2023 Estimated GFR (MDRD) Amer 75 mL/min >60 [facility] Comment on above: GFR Calc Estimated GFR (MDRD) Non-Af Amer 62 mL/min >60 [facility] Comment on above: Non- GFR Calc Platelets bldOrdered By: Dr. Palomo on 01-20-2023 Platelets (Bld) [#/Vol] 265 10*3/uL 150-450 [facility] Serum or plasma albumin luis enrique urement (mass/volume)Ordered By: Dr. Palomo on 01-20-2023 Albumin [Mass/Vol] 3.4 g/dL 3.2-5.0 [facility] Serum or plasma albumin/glob ulin mass ratioOrdered By: Dr. Palomo on 01-20-2023 Albumin/Globulin [Mass ratio] 0.9 {ratio} 0.9-2.4 [facility] Serum or plasma calcium luis enrique urement (mass/volume)Ordered By: Dr. Palomo on 01-20-2023 Calcium [Mass/Vol] 9.4 mg/dL 8.5-10.1 [facility] Serum or plasma creatinine m easurement (mass/volume)Ordered By: Dr. Palomo on 01-20-2023 Creatinine [Mass/Vol] 0.93 mg/dL 0.55-1.02 [facility] Comment on above: The validity of the calculated GFR & GFRAA in patients over 70 years has not been determined. Clinical correlation is essential. Serum or plasma urea nitroge n measurement (mass/volume)Ordered By: Dr. Palomo on 01-20-2023 Urea nitrogen [Mass/Vol] 23 mg/dL 7-18 [facility] Thin prep Papanicolaou smear with manual screeningOrdered By: Dr. Palomo on 01-20-2023 Thin prep Papanicolaou smear with manual screening 17 U/L 15-37 [facility] Thin prep Papanicolaou smear with manual screening 8 5-15 [facility] Absolute lymphocyte countOrd ered By: Dr. Anaya on 10-30-2022 Lymphocytes Auto (Unsp spec) [#/Vol] 1.72 10*3/uL 0.83-4.51 [facility] Basophil percentageOrdered B y: Dr. Anaya on 10-30-2022 Basophils/100 WBC (Bld) 0.6 % 0-1 [facility] Bilirubin [Mass/Vol] 0.30 mg/dL 0.20-1.00 [facility] Comment on above: For patients on eltr ombopag therapy, use of Dimension [place] TBIL is not recommended. Chloride [Moles/Vol] 103 mmol/L 98-107 [facility] Eosinophils/100 WBC (Bld) 3.7 % 0-5 [facility] Glucose [Mass/Vol] 95 mg/dL 74-106 [facility] Neutrophils (Bld) [#/Vol] 5.4 10*3/uL 2.0-7.7 [facility] Neutrophils/100 WBC (Bld) 66.2 % 47-70 [facility] Potassium [Moles/Vol] 4.2 mmol/L 3.5-5.1 [facility] Protein [Mass/Vol] 6.7 g/dL 6.4-8.2 [facility] Sodium [Moles/Vol] 139 mmol/L 136-145 [facility] WBC (Bld) [#/Vol] 8.2 10*3/uL 4.4-11.0 [facility] Blood erythrocytes count (nu mber/volume)Ordered By: Dr. Anaya on 10-30-2022 RBC (Bld) [#/Vol] 3.89 10*6/uL 4.2-5.4 [facility] Blood hemoglobin measurement (mass/volume)Ordered By: Dr. Anaya on 10-30-2022 Hemoglobin (Bld) [Mass/Vol] 12.3 g/dL 12.0-15.0 [facility] Blood lymphocytes/100 leukoc ytesOrdered By: Dr. Anaya on 10-30-2022 Lymphocytes/100 WBC (Bld) 21.1 % 19-41 [facility] Blood monocytes/100 leukocyt esOrdered By: Dr. Anaya on 10-30-2022 Monocytes/100 WBC (Bld) 8.0 % 0-10 [facility] Blood platelet mean volumeOr dered By: Dr. Anaya on 10-30-2022 Platelet mean volume (Bld) [Entitic vol] 10.0 fL 6.2-12.0 [facility] Determination of erythrocyte mean corpuscular volume (MCV)Ordered By: Dr. Anaya on 10-30-2022 MCV (RBC) [Entitic vol] 101.0 fL 81-99 [facility] Hematocrit Auto (Bld) [Volum e fraction]Ordered By: Dr. Anaya on 10-30-2022 Hematocrit (Bld) [Volume fraction] 39.3 % 37-47 [facility] Laboratory - Chemistry and C hemistry - challengeOrdered By: Dr. Anaya on 10-30-2022 ALP [Catalytic activity/Vol] 114 U/L 45-117 [facility] ALT [Catalytic activity/Vol] 21 U/L 13-56 [facility] CO2 [Moles/Vol] 29.0 mmol/L 21.0-32.0 [facility] Globulin (S) [Mass/Vol] 3.3 g/dL 2.2-4.2 [facility] Urea nitrogen/Creatinine [Mass ratio] 17.5 mg/mg 10-20 [facility] Free T4 [Mass/Vol] 1.11 ng/dL 0.76-1.46 [facility] Laboratory - Hematology and Cell countsOrdered By: Dr. Anaya on 10-30-2022 Erythrocyte distribution width (RBC) [Entitic vol] 53.7 fL 35.1-43.9 [facility] Erythrocyte distribution width (RBC) [Ratio] 14.6 % 11.6-14.6 [facility] Immature granulocytes/100 WBC (Bld) 0.400 % 0.0-0.9 [facility] Comment on above: IG% - Immature Granu locytes (promyelocytes, myelocytes and metamyelocytes) > 1% indicates that a LEFT SHIFT is Present. MCH (RBC) [Entitic mass] 31.6 pg 27.0-32.0 [facility] Nucleated RBC/100 WBC (Bld) [Ratio] 0 % 0-5 [facility] MCHC Auto (RBC) [Mass/Vol]Or dered By: Dr. Anaya on 10-30-2022 MCHC (RBC) [Mass/Vol] 31.3 g/dL 32-36 [facility] No Panel InformationOrdered By: Dr. Anaya on 10-30-2022 Estimated GFR (MDRD) Amer 72 mL/min >60 [facility] Comment on above: GFR Calc Estimated GFR (MDRD) Non-Af Amer 59 mL/min >60 [facility] Comment on above: Non- GFR Calc Thyroid Stimulating Hormone (TSH) 4.05 uIU/mL 0.358-3.74 [facility] Platelets bldOrdered By: Dr. Anaya on 10-30-2022 Platelets (Bld) [#/Vol] 277 10*3/uL 150-450 [facility] Serum or plasma albumin luis enrique urement (mass/volume)Ordered By: Dr. Anaya on 10-30-2022 Albumin [Mass/Vol] 3.4 g/dL 3.2-5.0 [facility] Serum or plasma albumin/glob ulin mass ratioOrdered By: Dr. Anaya on 10-30-2022 Albumin/Globulin [Mass ratio] 1.0 {ratio} 0.9-2.4 [facility] Serum or plasma calcium luis enrique urement (mass/volume)Ordered By: Dr. Anaya on 10-30-2022 Calcium [Mass/Vol] 9.5 mg/dL 8.5-10.1 [facility] Serum or plasma creatinine m easurement (mass/volume)Ordered By: Dr. Anaya on 10-30-2022 Creatinine [Mass/Vol] 0.97 mg/dL 0.55-1.02 [facility] Comment on above: The validity of the calculated GFR & GFRAA in patients over 70 years has not been determined. Clinical correlation is essential. Serum or plasma urea nitroge n measurement (mass/volume)Ordered By: Dr. Anaya on 10-30-2022 Urea nitrogen [Mass/Vol] 17 mg/dL 7-18 [facility] Thin prep Papanicolaou smear with manual screeningOrdered By: Dr. Anaya on 10-30-2022 Thin prep Papanicolaou smear with manual screening 17 U/L 15-37 [facility] Thin prep Papanicolaou smear with manual screening 7 5-15 [facility] Whole blood hemoglobin A1c/t otal hemoglobin ratio (mass fraction)Ordered By: Dr. Anaya on 10-30-2022 HbA1c (Bld) [Mass fraction] 5.9 % 3.8-5.6 [facility] Comment on above: Normal < 5.7 % Predi abetic 5.7 - 6.4 % Diabetic >or= 6.5 % Please note range changes. Absolute lymphocyte counton 08-17-2022 Lymphocytes Auto (Unsp spec) [#/Vol] 2.04 10*3/uL 0.83-4.51 [facility] Work Phone: [phone] Basophil percentageon 2021 Basophils/100 WBC (Bld) 1.0 % 0-1 [facility] Work Phone: [phone] Bilirubin [Mass/Vol] 0.30 mg/dL 0.20-1.00 [facility] Work Phone: [phone] Comment on above: For patients on eltr ombopag therapy, use of Dimension [place] TBIL is not recommended. Chloride [Moles/Vol] 106 mmol/L 98-107 [facility] Work Phone: Eosinophils/100 WBC (Bld) 6.9 % 0-5 [facility] Work Phone: Glucose [Mass/Vol] 113 mg/dL 74-106 [facility] Work Phone: Comment on above: Fasting Glucose resu lt from 100 to 125 mg/dL suggests IMPAIRED HOMEOSTASIS per A.D.A. criteria. Neutrophils (Bld) [#/Vol] 4.8 10*3/uL 2.0-7.7 [facility] Work Phone: [phone] Neutrophils/100 WBC (Bld) 59.6 % 47-70 [facility] Work Phone: Potassium [Moles/Vol] 4.3 mmol/L 3.5-5.1 [facility] Work Phone: [phone] Protein [Mass/Vol] 6.8 g/dL 6.4-8.2 [facility] Work Phone: [phone] Sodium [Moles/Vol] 142 mmol/L 136-145 [facility] Work Phone: WBC (Bld) [#/Vol] 8.1 10*3/uL 4.4-11.0 [facility] Work Phone: Blood erythrocytes count (nu mber/volume)on 08-17-2022 RBC (Bld) [#/Vol] 3.62 10*6/uL 4.2-5.4 [facility]: Blood hemoglobin measurement (mass/volume)on 08-17-2022 Hemoglobin (Bld) [Mass/Vol] 11.7 g/dL 12.0-15.0 [facility] Work Phone: Blood lymphocytes/100 leukoc yteson 08-17-2022 Lymphocytes/100 WBC (Bld) 25.1 % 19-41 [facility] Work Phone: Blood monocytes/100 leukocyt eson 08-17-2022 Monocytes/100 WBC (Bld) 7.0 % 0-10 [facility] Work Phone: Blood platelet mean volumeon 08-17-2022 Platelet mean volume (Bld) [Entitic vol] 9.5 fL 6.2-12.0 [facility] Work Phone: Determination of erythrocyte mean corpuscular volume (MCV)on 08-17-2022 MCV (RBC) [Entitic vol] 103.3 fL 81-99 [facility] Work Phone: Hematocrit Auto (Bld) [Volum e fraction]on 08-17-2022 Hematocrit (Bld) [Volume fraction] 37.4 % 37-47 [facility] Work Phone: Laboratory - Chemistry and C hemistry - challengeon 08-17-2022 ALP [Catalytic activity/Vol] 114 U/L 45-117 [facility] Work Phone: ALT [Catalytic activity/Vol] 19 U/L 13-56 [facility] Work Phone: CO2 [Moles/Vol] 31.0 mmol/L 21.0-32.0 [facility] Work Phone: Globulin (S) [Mass/Vol] 3.6 g/dL 2.2-4.2 [facility] Work Phone: Urea nitrogen/Creatinine [Mass ratio] 24.0 mg/mg 10-20 [facility] Work Phone: Laboratory - Hematology and Cell countson 08-17-2022 Erythrocyte distribution width (RBC) [Entitic vol] 55.2 fL 35.1-43.9 [facility] Work Phone: Erythrocyte distribution width (RBC) [Ratio] 14.6 % 11.6-14.6 [facility] Work Phone: Immature granulocytes/100 WBC (Bld) 0.400 % 0.0-0.9 [facility] Work Phone: Comment on above: IG% - Immature Granu locytes (promyelocytes, myelocytes and metamyelocytes) > 1% indicates that a LEFT SHIFT is Present. MCH (RBC) [Entitic mass] 32.3 pg 27.0-32.0 [facility] Work Phone: Nucleated RBC/100 WBC (Bld) [Ratio] 0 % 0-5 [facility] Work Phone: MCHC Auto (RBC) [Mass/Vol]on 08-17-2022 MCHC (RBC) [Mass/Vol] 31.3 g/dL 32-36 [facility] Work Phone: No Panel Informationon 08-17 Estimated GFR (MDRD) Amer 85 mL/min >60 [facility] Work Phone: Comment on above: GFR Calc Estimated GFR (MDRD) Non-Af Amer 70 mL/min >60 [facility] Work Phone: Comment on above: Non- GFR Calc Platelets bldon 08-17-2022 Platelets (Bld) [#/Vol] 244 10*3/uL 150-450 [facility] Work Phone: Serum or plasma albumin luis enrique urement (mass/volume)on 08-17-2022 Albumin [Mass/Vol] 3.2 g/dL 3.2-5.0 [facility] Work Phone: Serum or plasma albumin/glob ulin mass ratioon 08-17-2022 Albumin/Globulin [Mass ratio] 0.9 {ratio} 0.9-2.4 [facility] Work Phone: Serum or plasma calcium luis enrique urement (mass/volume)on 08-17-2022 Calcium [Mass/Vol] 9.3 mg/dL 8.5-10.1 [facility] Work Phone: Serum or plasma creatinine m easurement (mass/volume)on 08-17-2022 Creatinine [Mass/Vol] 0.84 mg/dL 0.55-1.02 [facility] Work Phone: Comment on above: The validity of the calculated GFR & GFRAA in patients over 70 years has not been determined. Clinical correlation is essential. Serum or plasma urea nitroge n measurement (mass/volume)on 08-17-2022 Urea nitrogen [Mass/Vol] 20 mg/dL 7-18 [facility] Work Phone: Thin prep Papanicolaou smear with manual screeningon 08-17-2022 Thin prep Papanicolaou smear with manual screening 12 U/L 15-37 [facility] Work Phone: Thin prep Papanicolaou smear with manual screening 5 5-15 [facility] Work Phone: Absolute lymphocyte counton 05-24-2022 Lymphocytes Auto (Unsp spec) [#/Vol] 2.37 10*3/uL 0.83-4.51 [facility] Work Phone: Basophil percentageon 2021 Basophils/100 WBC (Bld) 1.1 % 0-1 [facility] Work Phone: Bilirubin [Mass/Vol] 0.40 mg/dL 0.20-1.00 [facility] Work Phone: Comment on above: For patients on eltr ombopag therapy, use of Dimension [place] TBIL is not recommended. Chloride [Moles/Vol] 102 mmol/L 98-107 [facility] Work Phone: Eosinophils/100 WBC (Bld) 3.7 % 0-5 [facility] Work Phone: Glucose [Mass/Vol] 109 mg/dL 74-106 [facility] Work Phone: [phone] Comment on above: Fasting Glucose resu lt from 100 to 125 mg/dL suggests IMPAIRED HOMEOSTASIS per A.D.A. criteria. Neutrophils (Bld) [#/Vol] 5.2 10*3/uL 2.0-7.7 [facility] Work Phone: Neutrophils/100 WBC (Bld) 60.9 % 47-70 [facility] Work Phone: Potassium [Moles/Vol] 4.1 mmol/L 3.5-5.1 [facility] Work Phone: Protein [Mass/Vol] 7.4 g/dL 6.4-8.2 [facility] Work Phone: Sodium [Moles/Vol] 137 mmol/L 136-145 [facility] Work Phone: WBC (Bld) [#/Vol] 8.5 10*3/uL 4.4-11.0 [facility] Work Phone: Blood erythrocytes count (nu mber/volume)on 05-24-2022 RBC (Bld) [#/Vol] 3.79 10*6/uL 4.2-5.4 [facility] Work Phone: Blood hemoglobin measurement (mass/volume)on 05-24-2022 Hemoglobin (Bld) [Mass/Vol] 12.1 g/dL 12.0-15.0 [facility] Work Phone: Blood lymphocytes/100 leukoc yteson 05-24-2022 Lymphocytes/100 WBC (Bld) 27.8 % 19-41 [facility] Work Phone: Blood monocytes/100 leukocyt eson 05-24-2022 Monocytes/100 WBC (Bld) 6.1 % 0-10 [facility] Work Phone: Blood platelet mean volumeon 05-24-2022 Platelet mean volume (Bld) [Entitic vol] 10.5 fL 6.2-12.0 [facility] Work Phone: Determination of erythrocyte mean corpuscular volume (MCV)on 05-24-2022 MCV (RBC) [Entitic vol] 102.9 fL 81-99 [facility] Work Phone: Hematocrit Auto (Bld) [Volum e fraction]on 05-24-2022 Hematocrit (Bld) [Volume fraction] 39.0 % 37-47 [facility] Work Phone: Laboratory - Chemistry and C hemistry - challengeon 05-24-2022 ALP [Catalytic activity/Vol] 125 U/L 45-117 [facility] Work Phone: ALT [Catalytic activity/Vol] 20 U/L 13-56 [facility] Work Phone: CO2 [Moles/Vol] 29.0 mmol/L 21.0-32.0 [facility] Work Phone: Globulin (S) [Mass/Vol] 3.7 g/dL 2.2-4.2 [facility] Work Phone: Urea nitrogen/Creatinine [Mass ratio] 16.4 mg/mg 10-20 [facility] Work Phone: Laboratory - Hematology and Cell countson 05-24-2022 Erythrocyte distribution width (RBC) [Entitic vol] 57.4 fL 35.1-43.9 [facility] Work Phone: Erythrocyte distribution width (RBC) [Ratio] 15.5 % 11.6-14.6 [facility] Work Phone: Immature granulocytes/100 WBC (Bld) 0.400 % 0.0-0.9 [facility] Work Phone: Comment on above: IG% - Immature Granu locytes (promyelocytes, myelocytes and metamyelocytes) > 1% indicates that a LEFT SHIFT is Present. MCH (RBC) [Entitic mass] 31.9 pg 27.0-32.0 [facility] Work Phone: Nucleated RBC/100 WBC (Bld) [Ratio] 0 % 0-5 [facility] Work Phone: MCHC Auto (RBC) [Mass/Vol]on 05-24-2022 MCHC (RBC) [Mass/Vol] 31.0 g/dL 32-36 [facility] Work Phone: No Panel Informationon 05-24 Estimated GFR (MDRD) Amer 71 mL/min >60 [facility] Work Phone: Comment on above: GFR Calc Estimated GFR (MDRD) Non-Af Amer 59 mL/min >60 [facility] Work Phone: Comment on above: Non- GFR Calc Platelets bldon 05-24-2022 Platelets (Bld) [#/Vol] 283 10*3/uL 150-450 [facility] Work Phone: Serum or plasma albumin luis enrique urement (mass/volume)on 05-24-2022 Albumin [Mass/Vol] 3.7 g/dL 3.2-5.0 [facility] Work Phone: Serum or plasma albumin/glob ulin mass ratioon 05-24-2022 Albumin/Globulin [Mass ratio] 1.0 {ratio} 0.9-2.4 [facility] Work Phone: Serum or plasma calcium luis enrique urement (mass/volume)on 05-24-2022 Calcium [Mass/Vol] 9.5 mg/dL 8.5-10.1 [facility] Work Phone: Serum or plasma creatinine m easurement (mass/volume)on 05-24-2022 Creatinine [Mass/Vol] 0.97 mg/dL 0.55-1.02 [facility] Work Phone: Comment on above: The validity of the calculated GFR & GFRAA in patients over 70 years has not been determined. Clinical correlation is essential. Serum or plasma urea nitroge n measurement (mass/volume)on 05-24-2022 Urea nitrogen [Mass/Vol] 16 mg/dL 7-18 [facility] Work Phone: Thin prep Papanicolaou smear with manual screeningon 05-24-2022 Thin prep Papanicolaou smear with manual screening 18 U/L 15-37 [facility] Work Phone: Thin prep Papanicolaou smear with manual screening 6 5-15 [facility] Work Phone: Absolute lymphocyte counton 02-27-2022 Lymphocytes Auto (Unsp spec) [#/Vol] 2.19 10*3/uL 0.83-4.51 [facility] Work Phone: Basophil percentageon 2021 Basophils/100 WBC (Bld) 1.1 % 0-1 [facility] Work Phone: Bilirubin [Mass/Vol] 0.30 mg/dL 0.20-1.00 [facility] Work Phone: Comment on above: For patients on eltr ombopag therapy, use of Dimension [place] TBIL is not recommended. Chloride [Moles/Vol] 104 mmol/L 98-107 [facility] Work Phone: Eosinophils/100 WBC (Bld) 4.7 % 0-5 [facility] Work Phone: Glucose [Mass/Vol] 129 mg/dL 74-106 [facility] Work Phone: Comment on above: Fasting Glucose resu lt greater than or equal to 126 mg/dL suggests DIABETES MELLITUS per A.D.A. criteria. Neutrophils (Bld) [#/Vol] 4.4 10*3/uL 2.0-7.7 [facility] Work Phone: Neutrophils/100 WBC (Bld) 58.3 % 47-70 [facility] Work Phone: [phone] Potassium [Moles/Vol] 4.0 mmol/L 3.5-5.1 [facility] Work Phone: [phone] Protein [Mass/Vol] 7.4 g/dL 6.4-8.2 [facility] Work Phone: [phone] Sodium [Moles/Vol] 139 mmol/L 136-145 [facility] Work Phone: [phone] WBC (Bld) [#/Vol] 7.5 10*3/uL 4.4-11.0 [facility] Work Phone: Blood erythrocytes count (nu mber/volume)on 02-27-2022 RBC (Bld) [#/Vol] 4.11 10*6/uL 4.2-5.4 [facility] Work Phone: Blood hemoglobin measurement (mass/volume)on 02-27-2022 Hemoglobin (Bld) [Mass/Vol] 12.6 g/dL 12.0-15.0 [facility] Work Phone: Blood lymphocytes/100 leukoc yteson 02-27-2022 Lymphocytes/100 WBC (Bld) 29.3 % 19-41 [facility] Work Phone: [phone] Blood monocytes/100 leukocyt eson 02-27-2022 Monocytes/100 WBC (Bld) 6.3 % 0-10 [facility] Work Phone: Blood platelet mean volumeon 02-27-2022 Platelet mean volume (Bld) [Entitic vol] 10.2 fL 6.2-12.0 [facility] Work Phone: Determination of erythrocyte mean corpuscular volume (MCV)on 02-27-2022 MCV (RBC) [Entitic vol] 97.6 fL 81-99 [facility] Work Phone: Hematocrit Auto (Bld) [Volum e fraction]on 02-27-2022 Hematocrit (Bld) [Volume fraction] 40.1 % 37-47 [facility] Work Phone: Laboratory - Chemistry and C hemistry - challengeon 02-27-2022 ALP [Catalytic activity/Vol] 115 U/L 45-117 [facility] Work Phone: ALT [Catalytic activity/Vol] 16 U/L 13-56 [facility] Work Phone: CO2 [Moles/Vol] 26.0 mmol/L 21.0-32.0 [facility] Work Phone: Globulin (S) [Mass/Vol] 4.1 g/dL 2.2-4.2 [facility] Work Phone: Urea nitrogen/Creatinine [Mass ratio] 20.0 mg/mg 10-20 [facility] Work Phone: Laboratory - Hematology and Cell countson 02-27-2022 Erythrocyte distribution width (RBC) [Entitic vol] 54.3 fL 35.1-43.9 [facility] Work Phone: Erythrocyte distribution width (RBC) [Ratio] 15.1 % 11.6-14.6 [facility] Work Phone: Immature granulocytes/100 WBC (Bld) 0.300 % 0.0-0.9 [facility] Work Phone: Comment on above: IG% - Immature Granu locytes (promyelocytes, myelocytes and metamyelocytes) > 1% indicates that a LEFT SHIFT is Present. MCH (RBC) [Entitic mass] 30.7 pg 27.0-32.0 [facility] Work Phone: Nucleated RBC/100 WBC (Bld) [Ratio] 0 % 0-5 [facility] Work Phone: MCHC Auto (RBC) [Mass/Vol]on 04-20-2022 MCHC (RBC) [Mass/Vol] 31.4 g/dL 32-36 [facility] Work Phone: No Panel Informationon 02-27 Estimated GFR (MDRD) Amer 69 mL/min >60 [facility] Work Phone: Comment on above: GFR Calc Estimated GFR (MDRD) Non-Af Amer 57 mL/min >60 [facility] Work Phone: Comment on above: Non- GFR Calc Platelets bldon 02-27-2022 Platelets (Bld) [#/Vol] 307 10*3/uL 150-450 [facility] Work Phone: Serum or plasma albumin luis enrique urement (mass/volume)on 02-27-2022 Albumin [Mass/Vol] 3.3 g/dL 3.2-5.0 [facility] Work Phone: Serum or plasma albumin/glob ulin mass ratioon 02-27-2022 Albumin/Globulin [Mass ratio] 0.8 {ratio} 0.9-2.4 [facility] Work Phone: Serum or plasma calcium luis enrique urement (mass/volume)on 02-27-2022 Calcium [Mass/Vol] 9.3 mg/dL 8.5-10.1 [facility] Work Phone: Serum or plasma creatinine m easurement (mass/volume)on 02-27-2022 Creatinine [Mass/Vol] 1.00 mg/dL 0.55-1.02 [facility] Work Phone: Comment on above: The validity of the calculated GFR & GFRAA in patients over 70 years has not been determined. Clinical correlation is essential. Serum or plasma urea nitroge n measurement (mass/volume)on 02-27-2022 Urea nitrogen [Mass/Vol] 20 mg/dL 7-18 [facility] Work Phone: Thin prep Papanicolaou smear with manual screeningon 02-27-2022 Thin prep Papanicolaou smear with manual screening 12 U/L 15-37 [facility] Work Phone: Thin prep Papanicolaou smear with manual screening 9 5-15 [facility] Work Phone: Absolute lymphocyte counton 2021 Lymphocytes Auto (Unsp spec) [#/Vol] 2.48 10*3/uL 0.83-4.51 [facility] Work Phone: Basophil percentageon 2021 Basophils/100 WBC (Bld) 0.8 % 0-1 [facility] Work Phone: Bilirubin [Mass/Vol] 0.50 mg/dL 0.20-1.00 [facility] Work Phone: Comment on above: For patients on eltr ombopag therapy, use of Dimension [place] TBIL is not recommended. Chloride [Moles/Vol] 102 mmol/L 98-107 [facility] Work Phone: Eosinophils/100 WBC (Bld) 2.5 % 0-5 [facility] Work Phone: Glucose [Mass/Vol] 112 mg/dL 74-106 [facility] Work Phone: Comment on above: Fasting Glucose resu lt from 100 to 125 mg/dL suggests IMPAIRED HOMEOSTASIS per A.D.A. criteria. Neutrophils (Bld) [#/Vol] 7.7 10*3/uL 2.0-7.7 [facility] Work Phone: Neutrophils/100 WBC (Bld) 67.5 % 47-70 [facility] Work Phone: Potassium [Moles/Vol] 3.9 mmol/L 3.5-5.1 [facility] Work Phone: Protein [Mass/Vol] 7.9 g/dL 6.4-8.2 [facility] Work Phone: [phone] Sodium [Moles/Vol] 136 mmol/L 136-145 [facility] Work Phone: WBC (Bld) [#/Vol] 11.4 10*3/uL 4.4-11.0 [facility] Work Phone: Blood erythrocytes count (nu mber/volume)on 2021 RBC (Bld) [#/Vol] 3.90 10*6/uL 4.2-5.4 [facility] Work Phone: Blood hemoglobin measurement (mass/volume)on 2021 Hemoglobin (Bld) [Mass/Vol] 12.0 g/dL 12.0-15.0 [facility] Work Phone: Blood lymphocytes/100 leukoc yteson 2021 Lymphocytes/100 WBC (Bld) 21.8 % 19-41 [facility] Work Phone: Blood monocytes/100 leukocyt eson 2021 Monocytes/100 WBC (Bld) 7.0 % 0-10 [facility] Work Phone: Blood platelet mean volumeon 2021 Platelet mean volume (Bld) [Entitic vol] 10.5 fL 6.2-12.0 [facility] Work Phone: Determination of erythrocyte mean corpuscular volume (MCV)on 2021 MCV (RBC) [Entitic vol] 99.7 fL 81-99 [facility] Work Phone: Hematocrit Auto (Bld) [Volum e fraction]on 2021 Hematocrit (Bld) [Volume fraction] 38.9 % 37-47 [facility] Work Phone: Laboratory - Chemistry and C hemistry - challengeon 2021 ALP [Catalytic activity/Vol] 131 U/L 45-117 [facility] Work Phone: ALT [Catalytic activity/Vol] 18 U/L 13-56 [facility] Work Phone: CO2 [Moles/Vol] 27.0 mmol/L 21.0-32.0 [facility] Work Phone: Globulin (S) [Mass/Vol] 4.4 g/dL 2.2-4.2 [facility] Work Phone: Urea nitrogen/Creatinine [Mass ratio] 14.7 mg/mg 10-20 [facility] Work Phone: Laboratory - Hematology and Cell countson 2021 Erythrocyte distribution width (RBC) [Entitic vol] 55.5 fL 35.1-43.9 [facility] Work Phone: Erythrocyte distribution width (RBC) [Ratio] 15.4 % 11.6-14.6 [facility] Work Phone: Immature granulocytes/100 WBC (Bld) 0.400 % 0.0-0.9 [facility] Work Phone: Comment on above: IG% - Immature Granu locytes (promyelocytes, myelocytes and metamyelocytes) > 1% indicates that a LEFT SHIFT is Present. MCH (RBC) [Entitic mass] 30.8 pg 27.0-32.0 [facility] Work Phone: Nucleated RBC/100 WBC (Bld) [Ratio] 0 % 0-5 [facility] Work Phone: MCHC Auto (RBC) [Mass/Vol]on 2021 MCHC (RBC) [Mass/Vol] 30.8 g/dL 32-36 [facility] Work Phone: No Panel Informationon 11-29 Estimated GFR (MDRD) Amer 63 mL/min >60 [facility] Work Phone: Comment on above: GFR Calc Estimated GFR (MDRD) Non-Af Amer 52 mL/min >60 [facility] Work Phone: Comment on above: Non- GFR Calc Platelets bldon 2021 Platelets (Bld) [#/Vol] 293 10*3/uL 150-450 [facility] Work Phone: Serum or plasma albumin luis enrique urement (mass/volume)on 2021 Albumin [Mass/Vol] 3.5 g/dL 3.2-5.0 [facility] Work Phone: Serum or plasma albumin/glob ulin mass ratioon 2021 Albumin/Globulin [Mass ratio] 0.8 {ratio} 0.9-2.4 [facility] Work Phone: Serum or plasma calcium luis enrique urement (mass/volume)on 2021 Calcium [Mass/Vol] 9.5 mg/dL 8.5-10.1 [facility] Work Phone: Serum or plasma creatinine m easurement (mass/volume)on 2021 Creatinine [Mass/Vol] 1.09 mg/dL 0.55-1.02 [facility] Work Phone: Comment on above: The validity of the calculated GFR & GFRAA in patients over 70 years has not been determined. Clinical correlation is essential. Serum or plasma urea nitroge n measurement (mass/volume)on 2021 Urea nitrogen [Mass/Vol] 16 mg/dL 7-18 [facility] Work Phone: Thin prep Papanicolaou smear with manual screeningon 2021 Thin prep Papanicolaou smear with manual screening 10 U/L 15-37 [facility] Work Phone: Thin prep Papanicolaou smear with manual screening 7 5-15 [facility] Work Phone: Vital Signs Date Time Vital Sign Value Performing Clinician Faci lity 03-21-2024 22:26-0400 Body temperature 97.5 [degF] [facility] 03-21-2024 22:26-0400 Diastolic blood pressure 73 mm[Hg] [facility] 03-21-2024 22:26-0400 Heart rate 93 /min [facility] 03-21-2024 22:26-0400 Respiratory rate 20 /min [facility] 03-21-2024 22:26-0400 SaO2% (BldA) [Mass fraction] 96 % [facility] 03-21-2024 22:26-0400 Systolic blood pressure 172 mm[Hg] [facility] 03-21-2024 20:34-0400 Body height 165.1 cm [facility] 03-21-2024 20:34-0400 Body mass index (BMI) [Ratio] 44.9 kg/m2 [facility] 03-21-2024 20:34-0400 Body weight 122.5 kg [facility] 07-16-2023 14:29-0400 Body height 165.[address] Marciano Anaya Work Phone: [facility] 07-16-2023 14:29-0400 Body mass index (BMI) [Ratio] 43.4 kg/m2 Dr. Marciano Anaya Work Phone: [facility] 07-16-2023 14:29-0400 Body weight 118.[address] Marciano Anaya Work Phone: [facility] Encounters Encounter Date Encounter Type Care Provider Facility Start: 07-05-[address] Marciano Anaya DO -Laboratory Agustin Foster [facility] Start: 07-05-2025 ambulatory Marciano Anaya Facility: [facility] Start: 07-01-2025 End: 07-01-[address] Marciano Anaya DO Work Phone: -Laboratory [place] Start: 07-01-2025 End: 07-01-[address] Marciano Anaya DO -Laboratory [place] Work Phone: Start: 07-01-2025 End: 07-01-2025 ambulatory Marciano Anaya Facility:[facility] Start: 06-06-2025 End: 06-06-[address] Marciano Anaya DO Work Phone: -[facility] [place] Start: 06-06-2025 End: 06-06-[address] Amina Palomo MD -Laboratory [place] Work Phone: Start: 06-06-2025 End: 06-06-2025 ambulatory Amina Palomo Facility:[facility] Start: 03-25-2025 End: 03-25-[address] Marciano Anaya DO Work Phone: [facility] Work Phone: Start: 03-25-2025 End: 03-25-[address] Amina Palomo MD -Radiology [place] Work Phone: Start: 03-25-2025 End: 03-25-2025 ambulatory Marcinao Anaya Facility:[facility] Start: 03-18-2025 End: 03-18-[address] Marciano Anaya DO Work Phone: [facility] Work Phone: Start: 03-18-2025 End: 03-18-[address] Amina Palomo MD -Laboratory [place] Work Phone: Start: 03-18-2025 End: 03-18-2025 ambulatory Marciano Anaya Facility:[facility] Start: 02-16-2025 End: 02-16-[address] Marciano Anaya DO Work Phone: [facility] Work Phone: Start: 02-16-2025 End: 02-16-[address] Marciano Anaya DO -Radiology, [place] Work Phone: Start: 02-16-2025 End: 02-16-2025 ambulatory Marciano Anaya Facility:[facility] Start: 12-24-2024 End: 12-24-[address] Amina Palomo MD -Laboratory, [place] Work Phone: Start: 12-24-2024 End: 12-24-2024 ambulatory Amina Palomo Facility:[facility] Start: 10-25-2024 End: 10-25-[address] Marciano Anaya DO -Laboratory, [facility] Start: 10-25-2024 End: 10-25-2024 ambulatory Marciano Anaya Facility:[facility] Start: 09-30-2024 End: 09-30-2024 ambulatory [facility] Facility:[facility] Start: 08-18-2024 End: 08-18-2024 ambulatory [facility] Facility:[facility] Start: 08-05-2024 End: 08-05-2024 ambulatory [facility] Facility:[facility] Start: 03-21-2024 End: 03-21-2024 Emergency department patient visit [facility] Work Phone: Start: 03-19-2024 Patient encounter procedure [facility] Work Phone: Start: 03-11-2024 End: 03-11-2024 ambulatory [facility] Work Phone: Start: 03-11-2024 End: 03-11-2024 Patient encounter procedure [facility] Work Phone: Start: 01-06-2024 End: 01-06-[address] Marciano Anaya Work Phone: [facility] Work Phone: Start: 01-06-2024 End: 01-06-[address] Marciano Anaya Work Phone: [facility] Work Phone: Start: 10-14-2023 End: 10-14-[address] Marciano Anaya Work Phone: [facility] Start: 10-10-2023 End: 10-10-[address] Marciano Anaya Work Phone: [facility] Work Phone: Start: 10-10-2023 End: 10-10-[address] Marciano Anaya Work Phone: [facility] Work Phone: Start: 07-31-2023 End: 07-31-[address] Marciano Anaya Work Phone: [facility] Work Phone: Start: 07-31-2023 End: 07-31-[address] Marciano Anaya Work Phone: [facility] Work Phone: Start: 07-18-2023 End: 07-18-[address] Marciano Anaya Work Phone: [facility] Work Phone: Start: 07-18-2023 End: 07-18-[address] Marciano Anaya Work Phone: [facility] Work Phone: Start: 07-16-2023 End: 07-16-[address] Marciano Anaya Work Phone: [facility] Work Phone: Start: 04-21-2023 End: 04-21-2023 ambulatory [facility] Work Phone: Start: 04-21-2023 End: 04-21-2023 Patient encounter procedure [facility] Start: 01-20-2023 End: 01-20-2023 ambulatory [facility] Work Phone: Start: 01-20-2023 End: 01-20-2023 Patient encounter procedure [facility] Start: 10-30-2022 End: 10-30-2022 ambulatory [facility] Work Phone: Start: 10-30-2022 End: 10-30-2022 Patient encounter procedure [facility] Start: 08-17-2022 End: 08-17-2022 Patient encounter procedure [facility] Start: 05-24-2022 End: 05-24-2022 Patient encounter procedure [facility] Start: 02-27-2022 End: 02-27-2022 Patient encounter procedure [facility] Start: 2021 End: 2021 Patient encounter procedure [facility] Procedures Date Procedure Procedure Detail Performing Clinician [...] Date Care Activity Detail Author Start: 03-21-2024 [facility] Patient Education ED Abrasion ED Head Injury (Adult) [facility] Work Phone: Patient referral [facility] Work Phone: Immunizations Immunization Date Immunization Notes Care Provider Fa cility 03-21-2024 tetanus toxoid, redu connor diphtheria toxoid, and acellular pertussis vaccine, adsorbed [facility] Payers Date Payer Category Payer Self-pay [id number] 2024 Private Health Insurance 101 [id number] 2024 Self-pay [id number] 2012 Medicare [id number] Unknown [id number] 2.16.8 [id number] Unknown [id number] 2.16.8 [id number] Unknown [id number] 2.16.8 [id number] Unknown [id number] 2.16.8 [id number] Unknown [id number] 2.16.8 [id number] Unknown [id number] 2.16.8 [id number] Unknown [id number] 2.16.8 [id number] Unknown [id number] 2.16.8 [id number] Unknown [id number] 2.16.8 [id number] Unknown [id number] 2.16.8 [id number] Unknown [id number] 2.16.8 [id number] Social History Date Type Detail Facility Start: 08-29-2021 End: 03-21-2024 Tobacco smoking status NHIS Unknown if ever smoked [facility] Start: 12-07-2020 Sober [facility] Start: 12-07-2020 None [facility] Start: 12-07-2020 With Family [facility] Start: 12-07-2020 Non-smoker [facility] Start: 1945 Sex Assigned At Female W [facility] Start: 03-21-2024 Tobacco smoking stat us NHIS Ex-smoker (finding) [facility] Start: 02-18-2025 Sex Female (finding) [facility] Radiology Diagnostic study note 03-26-2025 Note Date & Type Note Facility 03-26-2025 Radiology Diagnostic study note [facility] Imaging Services [address] [place], [place] [id number] HIP, UNI W/ Pelvis 2-3 Views MR#: [id number] Acct: [id number] Name: JESUSSEVERIANO A Rep #: [id number] : 1945 79 From: Trevor Tadeo MD PCP: Dr. Marciano Anaya DO Status: REG CLI Study:HIP, UNI W/ Pelvis 2-3 Views Date of Ex am: 03/25/25 Exam# [id number] Ordering Dr: Amina Palomo MD PROCEDURE: HIP, [...] Views IMPRESSION: Findings as above. Reading Location: [id number] CC: Dr. Marciano Anaya DO; Dr. Amina Palomo MD ~ Trauma Coordinator: Signed [facility] Radiology Diagnostic study note 02-16-2025 Note Date & Type Note Facility 02-16-2025 Radiology Diagnostic study note [facility] Imaging Services [address] [place], [place] [address] Chest PA and Lateral MR#: [id number] Acct: [id number] Name: SEVERIANO LEE Rep #: [id number] : 1945 F 79 From: Alma Delia Yee MD PCP: Dr. Marciano Anaya DO Status: REG CLI Study:Chest PA and Lateral Date of Exam: 02/16/25 Exam# [id number] Ordering Dr: Marciano Anaya DO PROCEDURE: CHEST [...] 2. Additional description as above. Reading Location: [id number] CC: Dr. Marciano Anaya DO ~ Trauma Coordinator: Signed [facility] Discharge summary 03-21-2024 Note Date & Type Note Facility 03-21-2024 Discharge summary Note Date/Time March 21, 2024 9:23pm [facility] Medical Records Department [address] [place] [address] Emergency Department Summary 03/21/24 MR#: [id number] Acct: [id number] Name: SEVERIANO LEE Rep #:[id number] : 1945 78 From: Michael Quintanilla MD [...] pain or other injury. Tetanus Immunization: Unknown [facility] <MARCELO Mendez - Last Filed: 03/21/24 21:58> [facility] Medical History Acute blood loss anemia Acute [...] 07/07/19 [History Last Taken 09/19/20 11:00] vitamins A,C,E-dfsm-vcbfwg 2,148 mcg-113 mg-45 mg-17.4 mg tablet 1 [...] <MARCELO Mendez - Last Filed: 03/21/24 21:58> [facility] Narrative Medical decision making narrative: Patient presenting [...] release 24hr 150 mg PO DAILY vitamins A,C,W-funy-qvoeyg 1 EACH tablet 1 tab PO DAILY [...] your Primary Care Provider. Call [facility] ([phone]) or report to the closest Emergency Room. Call 911 if necessary. 03/21/242212 <Electronically signed by Michael Quintanilla MD> Cosigner Signature (if applicable): 03/21/242156 <Electronically signed by Luisa ELDRIDGE> CC: Dr. 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 [facility] Work Phone: Reason for referral (narrative) Note Date & Type Note Facility Reason for referral (narrative) No reason for referral information available [facility] Work Phone: Chief Complaint and [...] Will Yes December 07 12:33am Power of [employer] No December 07, 2020 12:33am Advance Directive Response Recorded Date/ Time Advance Directives No October 10, 2016 1:17am Living Will Yes December 06 11:33pm Power of [employer] No December 06, 2020 11:33pm Advance Directive Response Recorded Date/ Time Advance Directives No October 10, 2016 2:17am Living Will No March 21, 2024 8 :34pm Power of [employer] No March 21, 2024 8:34pm Advance Directive [...] section and content) DATE CREATED AUTHOR 07/09/2025 [facility] FOR RECORDS PERTAINING TO PATIENTS WHO ARE [...] BE BASED ON THE PRIMARY CLINICAL RECORDS. [facility]. provides no warranty or guarantee of the accuracy or completeness of information in this document.
[2025-07-10 03:10] LABS: Ferritin 156 ng/mL (22-378); Iron 26 ug/dL (50-170); Iron Binding Capacity,Unsat 170 ug/dL (228-428)
[2025-07-10 03:21] LABS: Iron Binding Capacity,Total 196 ug/dL (250-450)
[2025-07-10] MEDS: Pantoprazole Sodium 80 MG in 0.9% Normal Saline (100mL Bag) 80 ML 10 MG CONT INF ×2 (05:02→15:52)
[2025-07-10 06:25] LABS: Hematocrit 25.4 % (37-47); Hemoglobin 8.1 g/dL (12.0-15.0); Immature Granulocytes Count 0.070 X10^3/uL (0.0-0.0); Mean Corp Hgb Conc 31.9 g/dL (32-36); Mean Corpuscular Volume 98.8 fL (81-99); Mean Platelet Vol. 11.5 fl (6.2-12.0); NRBC Flagged by Analyzer 0.2 % (0-5); Platelet Count 229 K/mm3 (150-450); RBC Distribution Width CV 15.6 % (11.6-14.6); RBC Distribution Width SD 54.4 fl (35.1-43.9); Red Blood Count 2.57 M/mm3 (4.2-5.4); White Blood Count 12.6 K/mm3 (4.4-11.0)
[2025-07-10 07:32] LABS: FOLATES,SERUM (FOLIC ACID) 19.50 ng/mL (4.60-34.80)
[2025-07-10 07:40] LABS: AST(SGOT) 14 U/L (<=31); Alanine Aminotransfer ALT/SGPT 10 U/L (<=34); Albumin, Serum 3.3 g/dL (3.4-4.8); Alkaline Phosphatase 91 U/L (35-104); Anion Gap 12 (5-15); BUN 44 mg/dL (4-19); BUN/Creat Ratio 49.0 RATIO (10-20); Calcium,Total 8.9 mg/dL (7.6-11.0); Carbon Dioxide 21.9 mmol/L (21.0-32.0); Chloride 105 mmol/L (98-108); Estimated Creatinine Clearance 62.58 ml/min (50-250); Globulin 2.6 g/dL (2.2-4.2); Glucose 111 mg/dL (70-99); Potassium 4.8 mmol/L (3.3-5.1); Vitamin B12 256 pg/mL (180-914)
--- NOTE | 2025-07-10 10:47 | PN.HOSP_ITS ---
Hospitalist Note Patient admitted overnight for acute blood loss anemia suspected secondary to upper GI bleed, as well as new onset A-fib with RVR. I saw the patient at bedside this morning. Patient was fatigued appearing but was otherwise sitting comfortably in bed, conversing normally and in no acute distress. Noted that she has had 1 more dark bowel movement since arrival to the floor this morning. She denies any abdominal or epigastric pain. Denies any feeling of heart racing or palpitations. Her heart rate has consistently been in the 100s to 120s and A-fib on the monitor. BP has been low normal in the 100s systolic. Will recheck CBC at 12 PM today; if hemoglobin has downtrended to 7.5 or less, will transfuse with blood given the acute nature of her hemoglobin drop. Suspect the A-fib RVR is secondary to her GI bleed and given her low normal BP, will hold on any rate control medication for this for now. Not a candidate for anticoagulat ion currently due to her GI bleed. Continue IV Protonix drip. Will keep patient n.p.o. at this time in case of need for urgent EGD. Full progress note to follow tomorrow.
[2025-07-10 12:09] LABS: Hematocrit 23.2 % (37-47); Hemoglobin 7.4 g/dL (12.0-15.0); Mean Corp Hgb Conc 31.9 g/dL (32-36); Mean Corpuscular Volume 100.0 fL (81-99); Mean Platelet Vol. 10.8 fl (6.2-12.0); Platelet Count 227 K/mm3 (150-450); RBC Distribution Width CV 15.9 % (11.6-14.6); RBC Distribution Width SD 55.1 fl (35.1-43.9); Red Blood Count 2.32 M/mm3 (4.2-5.4); White Blood Count 15.5 K/mm3 (4.4-11.0)
--- NOTE | 2025-07-10 13:51 | CON.PCM.GI_ITS ---
HPI Consult Data Date of Consult: 07/11/25 HPI Narrative HPI Narrative: SEVERIANO LEE, is a 79-year-old female presenting to the emergency department for dyspnea and melena. Patient has a past medical history of asthma/COPD reports stopped smoking years ago, CAD, obesity and recently diagnosed atrial fibrillation by her primary care doctor. She was just started on Eliquis about a week ago. She reports on 07/01 she went to see her primary care doctor due to having chest tightness across the front of her chest and feeling fatigued. She was also experiencing shortness of breath at this time. An EKG was done which showed atrial fibrillation. She was also having lower extremity edema at that time and was placed on Lasix as well as Eliquis. She also reports that she developed some epigastric abdominal pain and nausea followed by melanotic stool yesterday. On review last echo was September 2020 and showed an EF of 65%. She denies any fever, chills, cough, sore throat, chest pain, vomiting, dysuria or hematuria. [facility] Medical History Atrial fibrillation Squamous cell skin cancer Skin lesion of hand Acute kidney injury Acute respiratory failure with hypoxia Lactic acidosis Vision disturbance Chronic pain syndrome Acute blood loss anemia Anxiety and depression Asthma HLD (hyperlipidemia) Morbid obesity GI bleed Hyperkalemia Hypertension History of rheumatoid arthritis Home Medications ?Medication ?Instructions ?Recorded ?Last Taken ?Type albuterol sulfate 90 mcg/actuation 1 - 2 puff inhalati on Q6H PRN PRN 03/15/15 10/09/16 History aerosol inhaler (ProAir HFA) Shortness Of Breath hydrochlorothiazide 25 mg tablet 25 mg PO DAILY BP 04/2409/19/20 11:00 History methotrexate sodium 2.5 mg tablet 20 mg PO MO Rheumato id arthritis 03/15/15 09/18/20 History folic acid 1 mg tablet 1 mg PO DAILY@0800 #0 TABLET S 03/29/15 09/19/20 11:00 Rx losartan 50 mg tablet 50 mg PO DAILY #30 TABLETS 0 03/29/15 09/19/20 11:00 Rx prednisone 10 mg tablet 10 mg PO PRN PRN arthritis f lare up 07/07/19 3 Days Ago History ~09/16/20 sulfasalazine 500 mg tablet 1,000 mg PO BID arthritis 07/07/19 09/19/20 11:00 History venlafaxine 150 mg 150 mg PO DAILY depression/a nxiety 07/07/19 09/19/20 11:00 History capsule,extended release 24 hr vitamins A,C,X-ftdc-kmntwb 2,148 1 tab PO DAILY EYE HE ALTH 07/07/19 09/19/20 11:00 History mcg-113 mg-45 mg-17.4 mg tablet atorvastatin 20 mg tablet 20 mg PO DAILY CHOLESTEROL 1 11/19/19 09/19/20 11:00 History magnesium oxide 400 mg PO DAILY SUPPLEMENT 1 11/19/19 09/19/20 11:00 History aspirin 81 mg tablet,delayed 81 mg PO DAILY@0800 #30 t abs 09/20/20 Unknown Rx release levothyroxine 100 mcg tablet mcg PO 07/16/23 Unknown H istory meclizine 12.5 mg tablet mg PO 07/16/23 Unknown Histo ry oxycodone-acetaminophen 10 mg-325 tab PO 07/16/23 Unkn own History mg tablet amlodipine 5 mg tablet 5 mg PO DAILY 07/09/25 Unkno wn History apixaban 5 mg tablet (Eliquis) 5 mg PO BID 07/09/25 Un known History atorvastatin 40 mg tablet 40 mg PO DAILY cholesterol 0 07/09/25 Unknown History furosemide 40 mg tablet 40 mg PO DAILY 07/09/25 Unkn own History metoprolol succinate 50 mg 50 mg PO DAILY 07/09/25 Unk nown History tablet,extended release 24 hr Allergy/AdvReac Type Severity Reaction Status Date / Time adhesive Allergy Other Verified 07/09/25 22:26 amoxicillin trihydrate (From Allergy Unknown Verified 07/09/25 22:26 Augmentin) latex Allergy Unknown Verified 07/09/25 22:26 Penicillins Allergy Unknown Verified 07/09/25 22:26 potassium clavulanate (From Allergy Unknown Verified 07/09/25 22:26 Augmentin) tetracycline Allergy Unknown Verified 07/09/25 22:26 Family History Sister Hypertension Brother Heart disease Surgical History History of hand surgery History of reverse total replacement of left shoulder joint History of tonsillectomy History of appendectomy History of tubal ligation History of knee replacement History of hip replacement History of back surgery Status post reverse total replacement of right shoulder Social History Smoking Status: Former smoker alcohol intake: current substance use type: does not use ROS Constitutional Constitutional: Denies fatigue, fever(s), poor appetite, weight gain or weight loss Gastrointestinal Gastrointestinal: Denies belching, bloating, change in bowel habits, change in stool character, chewing difficulty, coffee ground emesis, constipation, cramping, diarrhea, dyspepsia, dysphagia, early satiety, excessive flatus, fecal incontinence, heartburn, hematemesis, hematochezia, hemorrhoids, loose stools, melena, nausea, odynophagia, rectal bleeding, tenesmus, vomiting or weight changes Physical Exam Const alert, oriented x3, no apparent distress and healthy appearing General Appearance: cooperative GI normal to inspection, nondistended, normoactive bowel sounds, soft to palpation, non-tender and non-distended Percussion: normal to percussion Rectal Exam: deferred Lab / Micro Data 07/11/25 05:25 07/11/25 05:25 Labs: Laboratory Results - last 24 hr 07/09/25 22:31: WBC 11.4 H, RBC 2.82 L, Hgb 8.9 L, Hct 28.3 L, MCV 100.4 H, MCH 31.6, MCHC 31.4 L, RDW Std Deviation 55.7 H, RDW Coeff of Espinoza 15.5 H, Plt Count 274, MPV 11.1, Immature Gran % (Auto) 0.700, Neut % (Auto) 78.3 H, Lymph % (Auto) 17.2 L, [place] % (Auto) 2.7, Eos % (Auto) 0.2, Baso % (Auto) 0.9, Absolute Neuts (auto) 8.9 H, Absolute Lymphs (auto) 1.96, Nucleated RBC % 0.2, Sodium 138, Potassium 4.9, Chloride 102, Carbon Dioxide 18.9 L, Anion Gap 18 H, BUN 37 H, Creatinine 1.11, Estim Creat Clear Calc 52.29, Est GFR (MDRD) Non-Af 51 L, B UN/Creatinine Ratio 33.1 H, Glucose 195 H, Hemoglobin A1c 5.5, Calcium 9.0, Magnesium 1.9, Total Bilirubin 0.31, AST 14, ALT 13, Alkaline Phosphatase 100, T roponin T High Sens 20 H D, NT pro BNP II 2359 H, Total Protein 6.0, Albumin 3.5, Globulin 2.5, Albumin/Globulin Ratio 1.4, Lipase 31, Blood Type A POSITIVE, Antibody Screen NEGATIVE 07/10/25 00:13: Urine Color Yellow, Urine Clarity Clear, Urine pH 6.0, Ur Specific [place] 1.010, Urine Protein 30 H, Urine Glucose (UA) Normal, Urine Ketones Negative, Urine Occult Blood Negative, Urine Nitrite Negative, Urine Bilirubin Negative, Urine Urobilinogen Normal, Ur Leukocyte Esterase Negative, Urine RBC 0 SEEN, Urine WBC 0 SEEN, Ur Squamous Epith Cells 0 SEEN, Urine Bacteria 0 SEEN, Urine Mucus 0 SEEN 07/10/25 00:31: Iron 26 L, TIBC 196 L, Iron Saturation 13.3, Unsaturated IBC 170 L, Ferritin 156, Troponin T Hi Sens 2 Hr 14, TSH 2.680 07/10/25 05:46: WBC 12.6 H, RBC 2.57 L, Hgb 8.1 L, Hct 25.4 L, MCV 98.8, MCH 31.5, MCHC 31.9 L, RDW Std Deviation 54.4 H, RDW Coeff of Espinoza 15.6 H, Plt Count 229, MPV 11.5, Immature Gran % (Auto) 0.600, Neut % (Auto) 74.8 H, Lymph % (Auto) 19.2, [place] % (Auto) 4.8, Eos % (Auto) 0.1, Baso % (Auto) 0.5, Absolute Neuts (auto) 9.4 H, Absolute Lymphs (auto) 2.42, Nucleated RBC % 0.2, Sodium 139, Potassium 4.8, Chloride 105, Carbon Dioxide 21.9, Anion Gap 12, BUN 44 H, Creatinine 0.91, Estim Creat Clear Calc 62.58, Est GFR (MDRD) Non-Af 60, B UN/Creatinine Ratio 49.0 H, Glucose 111 H, Calcium 8.9, Phosphorus 2.4 L, Total Bilirubin 0.25, AST 14, ALT 10, Alkaline Phosphatase 91, Total Protein 5.9, A lbumin 3.3 L, Globulin 2.6, Albumin/Globulin Ratio 1.3, Vitamin B12 256, Serum Folate 19.50 07/10/25 12:00: WBC 15.5 H, RBC 2.32 L, Hgb 7.4 L, Hct 23.2 L, MCV 100.0 H, MCH 31.9, MCHC 31.9 L, RDW Std Deviation 55.1 H, RDW Coeff of Espinoza 15.9 H, Plt Count 227, MPV 10.8 Micro: Microbiology 07/09/25 22:31 Stool Stool Occult Blood (FRANSICO) - Final Occult Blood Positive Imaging Radiology Impression Abdomen/Pelvis CT 07/09/25 22:45 IMPRESSION: Interval appearance of mild pericardial effusion. Interval appearance of mild bilateral pleural effusions. Associated passive atelectatic airspace disease of the lower lobes. Hyperdense material is noted in the dependent aspect of the gastric body. Findings may represent acute hemorrhagic products. No precontrast images are provided to evaluate for active bleeding. Obtaining delayed phase images may increase the sensitivity of the exam to evaluate the significance of hyperdense material in the gastric lumen. Scattered right renal simple cysts are noted with the largest measuring 1.5 cm. Fat containing umbilical hernia without incarceration. Uncomplicated colonic diverticulosis. Bilateral hip prostheses are noted. Moderate diffuse spondylosis. Unremarkable low lumbar fusion metallic hardware. Unchanged bilateral vascular calcifications in the kidneys. Chronic posterior soft tissue thickening overlying the sacrococcygeal junction, unchanged. Reading Location: [place] [address] Chest X-Ray 07/09/25 23:19 IMPRESSION: NO ACUTE FINDINGS. Reading Location[facility] Assessment & Plan Assessment/Plan (1) SCHULTZ (dyspnea on exertion): (2) Fatigue: QUALIFIERS: Fatigue type: unspecified Qualified Code(s): R53.83 - Other fatigue (3) Upper GI bleed: (4) Melanotic stools: PLAN: 79-year-old female with new onset AFib complicated by acute gastrointestinal bleeding likely secondary to Eliquis.? * Gastrointestinal Bleed:?The patient's melena, anemia, and orthostatic hypotension are highly concerning for an upper GI bleed. The new onset of symptoms in close temporal proximity to starting an anticoagulant (Eliquis) strongly suggests the medication is a contributing factor, though it is likely potentiating bleeding from an underlying lesion. Given her age and anemia, there is a higher risk for bleeding on anticoagulation. * Anemia:?The significant drop in hemoglobin is consistent with acute blood loss from the GI tract. * Atrial Fibrillation:?The patient's AFib is currently managed with Eliquis for stroke prevention. The current bleeding event necessitates careful consideration of the risks of continued anticoagulation versus the risks of thromboembolic stroke. Her CHADS-VASc score is high. Plan * Agree with discontinuing Eliquis immediately. * Agree with PPI drip * ?Recommend esophagogastroduodenoscopy (EGD) to identify the bleeding source (e.g., peptic ulcer, angioectasia) and perform endoscopic hemostasis. * Order type and crossmatch?for blood transfusion. Her hemoglobin is 7.4 so we will transfuse her 2 units of packed red blood cells with 20 mg of IV Lasix in between to achieve a target hemoglobin of 7-9 g/dL, with a higher target for patients with significant cardiovascular disease. * Hold off on restarting anticoagulation?until hemostasis is confirmed and the underlying cause of the bleeding is addressed. Charges/Coding Visit Charges Inpatient E&M: 57618 Init Hosp L3
[2025-07-10] MEDS: 0.9% Saline Lock 10 ML Syringe IV (20:20)
[2025-07-11] VITALS (12 sets, daily range): BP systolic 99–134; BP diastolic 67–75; PULSE 95–135; RESP 12–18; TEMP 36.2–37; O2SAT 92–95; BMI 41.7
[2025-07-11] MEDS: Pantoprazole Sodium 80 MG in 0.9% Normal Saline (100mL Bag) 80 ML 10 MG CONT INF ×3 (02:10→22:06)
[2025-07-11] MEDS: 0.9% Saline Lock 10 ML Syringe IV ×4 (02:15→22:11)
[2025-07-11 05:52] LABS: Hematocrit 29.4 % (37-47); Hemoglobin 9.6 g/dL (12.0-15.0); Mean Corp Hgb Conc 32.7 g/dL (32-36); Mean Corpuscular Volume 93.6 fL (81-99); Mean Platelet Vol. 11.0 fl (6.2-12.0); Platelet Count 196 K/mm3 (150-450); RBC Distribution Width CV 17.7 % (11.6-14.6); RBC Distribution Width SD 58.3 fl (35.1-43.9); Red Blood Count 3.14 M/mm3 (4.2-5.4); White Blood Count 16.8 K/mm3 (4.4-11.0)
--- NOTE | 2025-07-11 05:55 | EKG12_ITS ---
Test Reason : Blood Pressure : */* mmHG Vent. Rate : 147 BPM Atrial Rate : * BPM P-R Int : * ms QRS Dur : 72 ms QT Int : 284 ms P-R-T Axes : * 17 170 degrees QTcB Int : 444 ms Critical Test Result: High HR Atrial fibrillation with rapid ventricular response Low voltage QRS Nonspecific ST and T wave abnormality Abnormal ECG Confirmed by TASHIA WEAVER ([id number]), video tape editor SARA CRUZ ([id number]) on 08/08/2025 9:05:48 AM Referred By: OKSANA Confirmed By: TASHIA WEAVER
[2025-07-11 06:00] LABS: Prothrombin Time (Protime)PT. 16.9 SECONDS (11.7-14.9)
[2025-07-11 06:01] LABS: Partial Thromboplast Time 31.6 Seconds (24.1-36.2)
[2025-07-11] MEDS: Digoxin 250 MCG/ML Ampul IV (06:53)
[2025-07-11 06:57] LABS: Anion Gap 14 (5-15); BUN 41 mg/dL (4-19); BUN/Creat Ratio 40.6 RATIO (10-20); Calcium,Total 9.0 mg/dL (7.6-11.0); Carbon Dioxide 21.2 mmol/L (21.0-32.0); Chloride 105 mmol/L (98-108); Estimated Creatinine Clearance 57.38 ml/min (50-250); Glucose 128 mg/dL (70-99); Potassium 3.9 mmol/L (3.3-5.1)
[2025-07-11] MEDS: Metoprolol(XL)Succ 50 MG Tablet PO (08:40)
--- NOTE | 2025-07-11 10:55 | PRE.ANES_ITS ---
ASA Classification* ASA Classification ASA Classification: 3 and E Assessment & Plan Anesthesia* Anesthesia Assessment Anesthesia Assessment: Discussed sedation and/or anesthesia options, risks, benefits, and alternatives with patient/parents/legal guardian/POA. Questions invited. The patient/parents/legal guardian/POA seems to understand and agrees to proceed with anesthesia plan. Reviewed the physical assessment, medical history, allergy history and patient home medications list prior to surgery/procedure/anesthetic and documented any changes. Performed airway and anesthesia risk assessments. Anesthesia Type Anesthesia Type: MAC History Source History Obtained from:: Patient and Chart Anesthesia Focused Assessment* Temperature: 98.3 F Pulse Rate: 135 Blood Pressure: 125/70 Respiratory Rate: 18 Pulse Ox: 92 Oxygen Delivery Method: Room Air Airway Assessment Mouth opens: >3 cm Mallampati Score: III Teeth Condition: Dentures Neck Range of motion (ROM): Limited ROM Labs Anesthesia Preop lab: CBC WBC 16.8 K/mm3 (4.4-11.0) H 07/11/25 05: 5 RBC 3.14 M/mm3 (4.2-5.4) L 07/11/25 05:25 07/11/25 Hgb 9.6 g/dL (12.0-15.0) L 07/11/25 05:25 07/11/25 Hct 29.4 % (37-47) L 07/11/25 05:25 07/11/25 Plt Count 196 K/mm3 (150-450) 07/11/25 05:25 07/11/25 CHEMISTRY Potassium 3.9 mmol/L (3.3-5.1) 07/11/25 05:25 07/11/25 Sodium 140 mmol/L (133-145) 07/11/25 05:25 07/11/25 Magnesium 1.9 mg/dL (1.5-2.2) 07/09/25 22:31 07/09/25 Phosphorus 2.4 mg/dL (2.7-4.5) L 07/10/25 05:46 07/10/25 BUN 41 mg/dL (4-19) H 07/11/25 05:25 07/11/25 Creatinine 1.00 mg/dL (0.70-1.20) 07/11/25 05:25 07/11/25 Glucose 128 mg/dL (70-99) H 07/11/25 05:25 07/11/25 POC Glucose 139 mg/dL (70-110) H 12/08/20 11:45 12/08/20 TSH 2.680 uIU/mL (0.300-4.200) 07/10/25 00:31 08/3 12/04 COAG PT 16.9 SECONDS (11.7-14.9) H 07/11/25 05:25 090 12/04 Pre-Assessment Diagnosis/Proposed Procedure Planned Operative Procedure(s): EGD for low hemoglobin Anesthesia History 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 When Was Last Pacemaker Check QUESTION #4 FULL TEXT: You/Your Family Experience fever (hyperthermia) with Anesthesia Last Oral Intake Last Oral intake: Last Oral Intake NPO since Meds taken in AM with sips of water? Meds patient instructed to take am of surgery PONV PONV - nuclear waste management engineer: PONV - nuclear waste management engineer Female HX of Motion Sickness HX of N/V After Surgery Non-Smoker Duration of Surgery greater than 60 minutes Number of Risk Factors PONV Score Height & Weight Height & Weight: Anesthesia: Height & Weight Height 5 ft 5 in 07/10/25 10:17 Weight: 113.7 kg 07/11/25 05:38 Body Mass Index (BMI) 41.7 07/11/25 05:38 Respiratory Assessment Respiratory Assessment - nuclear waste management engineer: Respiratory Tract Infection Hx - nuclear waste management engineer Hx Respiratory Tract Infection STOP Sleep Apnea STOP Sleep Apnea - nuclear waste management engineer: STOP Sleep Apnea - nuclear waste management engineer Hx Hypertension Yes 07/10/25 08:32 Hx Sleep Apnea Yes 07/10/25 03:40 CPAP No 07/10/25 03:40 BIPAP No 07/10/25 03:40 Do you snore loudly (louder than talking or can be heard Do you often feel tired/ fatigued/ sleepy during daytime? Has anyone observed you stop breathing during sleep? STOP Results Positive 07/10/25 03:40 QUESTION #5 FULL TEXT : Do you snore loudly (louder than talking or can be heard through closed doors)? 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 Specify any problems Hx of Preganancy in last 3 No 07/10/25 03:40 Months Nurse Filling Out Transfusion TBADGER 07/10/25 03:40 & Questions: Date: 07/10/25 07/10/25 03:40 Time: 03:49 07/10/25 03:40 Patient unable to answer at this time (ie. confused, unrespo /Reproduction History /Reproductive History - nuclear waste management engineer: /Reproductive Hx- nuclear waste management engineer Hx Now Gestational Age (in weeks): EDC: Hx Hx Para Hx Section SAB Active Medications Active Medications: Current Medications Generic Name Dose Route Start Last Admin Trade Name Freq PRN Reason Stop Dose Admin Acetaminophen 650 mg 07/10/25 04:08 Acetaminophen 650 Mg Suppository RC Q6H PRN PRN Pain 1-5/10 or Fever Albuterol Sulfate 2.5 mg 07/10/25 04:08 Albuterol 2.5 Mg/3 Ml Vial.Neb. INHALATION Q4H PRN PRN Shortness Of Breath Furosemide 40 mg 07/10/25 04:08 07/10/25 04:41 Furosemide 40 Mg/4 Ml Vial IV 40 mg DAILY MARIE Administration Protocol Sodium Chloride 250 mls @ 15 mls/hr 07/10/25 04:04 IV .[id number] PRN Saline Flush Sodium Chloride 250 mls @ 15 mls/hr 07/10/25 04:04 IV .[id number] PRN Additional IVPB Infusion Pantoprazole Sodium 80 mg/ 100 mls @ 10 mls/hr 07/10/25 04:08 07/11/25 02:10 Sodium Chloride CONT INF 10 mls/hr Q10H MARIE Administration Morphine Sulfate 2 mg 07/10/25 04:08 07/11/25 02:15 Morphine 2 Mg/Ml Syringe IV 2 mg Q4H PRN PRN Administration Pain Score 6-10 Nystatin 1 applic 07/10/25 22:00 07/11/25 10:18 Nystatin Powder 15gm Bottle TOPICAL Not Given BID MARIE Protocol Ondansetron HCl 4 mg 07/10/25 04:08 07/10/25 10:11 Ondansetron 4 Mg/2 Ml Vial IV 4 mg Q4H PRN PRN Administration NAUSEA/VOMITING Sodium Chloride 10 - 40 ml 07/10/25 04:04 07/11/25 06:54 0.9% Saline Lock 10 Ml Syringe IV 10 ml UD PRN Administration SALINE FLUSH PFSH Medical History Atrial fibrillation Squamous cell skin cancer Skin lesion of hand Acute kidney injury Acute respiratory failure with hypoxia Lactic acidosis Vision disturbance Chronic pain syndrome Acute blood loss anemia Anxiety and depression Asthma HLD (hyperlipidemia) Morbid obesity GI bleed Hyperkalemia Hypertension History of rheumatoid arthritis Home Medications ?Medication ?Instructions ?Recorded ?Last Taken ?Type albuterol sulfate 90 mcg/actuation 1 - 2 puff inhalati on Q6H PRN PRN 03/15/15 10/09/16 History aerosol inhaler (ProAir HFA) Shortness Of Breath hydrochlorothiazide 25 mg tablet 25 mg PO DAILY BP 04/2409/19/20 11:00 History methotrexate sodium 2.5 mg tablet 20 mg PO MO Rheumato id arthritis 03/15/15 09/18/20 History folic acid 1 mg tablet 1 mg PO DAILY@0800 #0 TABLET S 03/29/15 09/19/20 11:00 Rx losartan 50 mg tablet 50 mg PO DAILY #30 TABLETS 0 03/29/15 09/19/20 11:00 Rx prednisone 10 mg tablet 10 mg PO PRN PRN arthritis f lare up 07/07/19 3 Days Ago History ~09/16/20 sulfasalazine 500 mg tablet 1,000 mg PO BID arthritis 07/07/19 09/19/20 11:00 History venlafaxine 150 mg 150 mg PO DAILY depression/a nxiety 07/07/19 09/19/20 11:00 History capsule,extended release 24 hr vitamins A,C,[id number] 2,148 1 tab PO DAILY EYE HE ALTH 07/07/19 09/19/20 11:00 History mcg-113 mg-45 mg-17.4 mg tablet atorvastatin 20 mg tablet 20 mg PO DAILY CHOLESTEROL 1 11/19/19 09/19/20 11:00 History magnesium oxide 400 mg PO DAILY SUPPLEMENT 1 11/19/19 09/19/20 11:00 History aspirin 81 mg tablet,delayed 81 mg PO DAILY@0800 #30 t abs 09/20/20 Unknown Rx release levothyroxine 100 mcg tablet mcg PO 07/16/23 Unknown H istory meclizine 12.5 mg tablet mg PO 07/16/23 Unknown Histo ry oxycodone-acetaminophen 10 mg-325 tab PO 07/16/23 Unkn own History mg tablet amlodipine 5 mg tablet 5 mg PO DAILY 07/09/25 Unkno wn History apixaban 5 mg tablet (Eliquis) 5 mg PO BID 07/09/25 Un known History atorvastatin 40 mg tablet 40 mg PO DAILY cholesterol 0 07/09/25 Unknown History furosemide 40 mg tablet 40 mg PO DAILY 07/09/25 Unkn own History metoprolol succinate 50 mg 50 mg PO DAILY 07/09/25 Unk nown History tablet,extended release 24 hr Allergy/AdvReac Type Severity Reaction Status Date / Time adhesive Allergy Other Verified 07/09/25 22:26 amoxicillin trihydrate (From Allergy Unknown Verified 07/09/25 22:26 Augmentin) latex Allergy Unknown Verified 07/09/25 22:26 Penicillins Allergy Unknown Verified 07/09/25 22:26 potassium clavulanate (From Allergy Unknown Verified 07/09/25 22:26 Augmentin) tetracycline Allergy Unknown Verified 07/09/25 22:26 Family History Sister Hypertension Brother Heart disease Surgical History History of hand surgery History of reverse total replacement of left shoulder joint History of tonsillectomy History of appendectomy History of tubal ligation History of knee replacement History of hip replacement History of back surgery Status post reverse total replacement of right shoulder Social History Smoking Status: Former smoker alcohol intake: current substance use type: does not use Review of Systems (Anesthesia) ROS Narrative System reviewed and no additional complaints, except as documented.
[2025-07-11] MEDS: Lactated Ringers 1,000 ML 15 ML IV (11:00)
--- NOTE | 2025-07-11 12:16 | PCM.POST.ANE ---
Anesthesia: Postop Eval I Current Vital Signs Temperature: 97.1 F Pulse Rate: 95 Blood Pressure: 99/72 Respiratory Rate: 12 Pulse Ox: 94 Oxygen Delivery Method: Room Air Assessment Airway patent: Yes Spontaneous unlabored respirations: Yes Mental status: Awake and Calm nausea: No Vomiting: No Anesthesia Complication: No Fluid Hydration Crystalloid volume administer (ml): 300 Total IV fluid infused: 300 Progress Note Post-operative progress note: stable to PACU Anesthesia document: Postop Eval 1 completed: Yes
--- NOTE | 2025-07-11 12:17 | PCM.POSTANE2 ---
Anesthesia Postop Eval I Sum Postop Eval Completion status Anesthesia document: Postop Eval 1 completed: Yes Anesthesia Postop Eval I Summary Anesthesia Postop Eval I Summary: Anesthesia Postop Eval I: Assessment Summary Airway patent Yes 07/11/25 12:17 Spontaneous unlabored Yes 07/11/25 12:17 respirations Mental status Awake,Calm 07/11/25 12:17 nausea No 07/11/25 12:17 Vomiting No 07/11/25 12:17 Anesthesia Postop Eval I: Fluid Summary Crystalloid volume administer 300 07/11/25 12:17 (ml) Colloids volume administered ( ml) Blood Product volume administered (ml) Total IV fluid infused 300 07/11/25 12:17 Anesthesia Postop Eval I: Summary Notes Anesthesia Complication No 07/11/25 12:17 Anesthesia Complication Comment: Post-operative progress note stable to PACU 07/11/25 12:17 Anesthesia: Postop Eval II Evaluation Mental status: Awake and Calm Pain Level: 0 nausea: No Vomiting: No Progress Note Post-operative progress note: meets discharge criteria Complications Anesthesia Complication: No
--- NOTE | 2025-07-11 12:19 | OP.PROVAT_ITS ---
07/11/2025 Marciano Anaya [address] [facility] [place] [address] Re : Upper GI endoscopy procedure for Betsy Solano Dear Dr. Anaya This procedure was performed on Friday, July 11, 2025. My impressions and recommendations are as follows: Impressions : - Normal esophagus. - Non-obstructing oozing gastric ulcers with a visible vessel. There is no evidence of perforation. Clips were placed. 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 - Non-bleeding gastric ulcers with pigmented material. Treated with argon plasma coagulation (APC). - No gross lesions in the entire examined duodenum. - No specimens collected. Recommendations : - [facility]. - Full liquid diet today. - Continue present medications. My findings are described in the full procedure note, which is enclosed. If I can be of further assistance, please feel free to contact me at . Sincerely, Cuauhtemoc Mccallum, 07/11/2025 12:18:34 PM This report has been signed electronically.
--- NOTE | 2025-07-11 12:19 | OP.EGD_ITS ---
Patient Name: Betsy Solano Procedure Date: 07/11/2025 10:45 AM Date of : 1945 Age: 79 Procedure: Upper GI endoscopy Indications: Melena Providers: Cuauhtemoc Mccallum DO Medicines: Monitored Anesthesia Care Patient Profile: This is a 79 year old female. Refer to note in patient chart for documentation of history and physical. Patient has symptoms. Complications: No immediate complications. Procedure: Pre-Anesthesia Assessment: - Prior to the procedure, a History and Physical was performed, and patient medications and allergies were reviewed. The patient is competent. The risks and benefits of the procedure and the sedation options and risks were discussed with the patient. All questions were answered and informed consent was obtained. Patient identification and proposed procedure were verified by the physician in the pre-procedure area. Mental Status Examination: alert and oriented. Airway Examination: normal oropharyngeal airway and neck mobility. Respiratory Examination: clear to auscultation. CV Examination: normal. Prophylactic Antibiotics: The patient does not require prophylactic antibiotics. Prior Anticoagulants: The patient has taken no anticoagulant or antiplatelet agents except for aspirin. ASA Grade Assessment: III - A patient with severe systemic disease. After reviewing the risks and benefits, the patient was deemed in satisfactory condition to undergo the procedure. The anesthesia plan was to use monitored anesthesia care (MAC). Immediately prior to administration of medications, the patient was re-assessed for adequacy to receive sedatives. The heart rate, respiratory rate, oxygen saturations, blood pressure, adequacy of pulmonary ventilation, and response to care were monitored throughout the procedure. The physical status of the patient was re-assessed after the procedure. After obtaining informed consent, the endoscope was passed under direct vision. Throughout the procedure, the patient's blood pressure, pulse, and oxygen saturations were monitored continuously. The Endoscope was introduced through the mouth, and advanced to the fourth part of the duodenum. Small bowel enteroscopy was deemed necessary. The upper GI endoscopy was accomplished without difficulty. The patient tolerated the procedure well. Scope In: 11:38:04 AM Scope Out: 11:48:16 AM Total Procedure Duration Time 0 hours 10 minutes 12 seconds Findings: The examined esophagus was normal. Four non-obstructing oozing cratered gastric ulcers of significant severity with a visible vessel were found in the gastric body and on the lesser curvature of the stomach. The largest lesion was 10 mm in largest dimension. There is no evidence of perforation. To stop active bleeding, two hemostatic clips were successfully placed. 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 There was no bleeding at the end of the procedure. Estimated blood loss was minimal. Two non-bleeding linear gastric ulcers with pigmented material were found on the greater curvature of the stomach. The largest lesion was 5 mm in largest dimension. Coagulation for destruction of remaining portion of lesion using argon plasma at 0.3 liters/minute and 30 mays was successful. Estimated blood loss was minimal. Coagulation for bleeding prevention using argon plasma at 0.8 liters/minute and 20 mays was successful. Estimated blood loss was minimal. No gross lesions were noted in the entire examined duodenum. Impression: - Normal esophagus. - Non-obstructing oozing gastric ulcers with a visible vessel. There is no evidence of perforation. Clips were placed. 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 - Non-bleeding gastric ulcers with pigmented material. Treated with argon plasma coagulation (APC). - No gross lesions in the entire examined duodenum. - No specimens collected. Recommendation: - [facility]. - Full liquid diet today. - Continue present medications. Cuauhtemoc Mccallum DO 07/11/2025 12:18:34 PM This report has been signed electronically. Number of Addenda: 0 Note Initiated On: 07/11/2025 10:45 AM
--- NOTE | 2025-07-11 15:49 | PCM.PN.HOSP ---
Reason for Visit Chief Complaint: SOB and Fatigue. Subjective Subjective Patient was seen and examined today, she underwent an EGD today which showed the presence of gastric ulcers. Patient's hemoglobin today was 9.6. Objective Data Objective Data Vital Signs: Vital Signs Temp Pulse Resp BP Pulse Ox O2 Del Method 97.1 F L 95 12 99/72 94 Room Air 07/11/25 12:17 07/11/25 12:17 07/11/25 12:17 07/11/25 12:17 07/11/25 12:17 07/11/25 13:15 Oxygen Delivery Method Room Air Weight: 113.7 kg Body Mass Index (BMI) 41.7 Intake & Output: Intake and Output for Last 24 Hours 07/09/25 07/10/25 07/11/25 23:59 23:59 23:59 Intake Total 0 / 0 1519.67 / 1519.67 151.67 / 151.67 Output Total 1075 / 1075 1200 / 1200 Balance 0 / 0 444.67 / 444.67 -1048.33 / -1048.33 Lab / Micro Data 07/11/25 05:25 07/11/25 05:25 Labs: Laboratory Results - last 24 hr 07/09/25 22:31: Crossmatch See Detail 07/11/25 05:25: WBC 16.8 H, RBC 3.14 L, Hgb 9.6 L, Hct 29.4 L, MCV 93.6 D, MCH 30.6, MCHC 32.7, RDW Std Deviation 58.3 H, RDW Coeff of Espinoza 17.7 H, Plt Count 196, MPV 11.0, PT 16.9 H, INR 1.4, APTT 31.6, Sodium 140, Potassium 3.9, Chloride 105, Carbon Dioxide 21.2, Anion Gap 14, BUN 41 H, Creatinine 1.00, Estim Creat Clear Calc 57.38, Est GFR (MDRD) Non-Af 57 L, BUN/Creatinine Ratio 40.6 H, Glucose 128 H, Calcium 9.0 Micro: Microbiology 07/09/25 22:31 Stool Stool Occult Blood (FRNASICO) - Final Occult Blood Positive Physical Exam Const alert, oriented x3 and no apparent distress Constitutional Narrative: Patient has class III obesity General Appearance: cooperative, well kempt and well developed Orientation / Consciousness: awake, oriented to person, oriented to place and oriented to time HEENT normocephalic, head/scalp atraumatic and moist oral mucous membranes Eyes PERRL, EOMs intact bilaterally and conjunctivae normal Neck supple, no JVD, thyroid normal and no carotid bruits General: trachea midline Resp normal respiratory effort, no retractions, no use of accessory muscles and clear to auscultation bilaterally Auscultation: Negative for rales, rhonchi or wheezes Cardio S1 normal heart sound, S2 normal heart sound, no murmurs, no rub and no gallops Cardio Narrative: Heart rate and rhythm is irregular GI normal to inspection, nondistended, normoactive bowel sounds, soft to palpation, non-tender and non-distended Extremity no clubbing, cyanosis or edema Skin no rashes or lesions noted General Skin Exam: no breakdown Neuro oriented x3, CN's II-XII intact bilaterally, no focal motor deficits and no sensory deficits noted Sensorium / Orientation: awake and alert Speech: speech normal Psych affect normal Assessment & Plan Assessment/Plan (1) Upper GI bleed: PLAN: Plan 1. Acute upper GI bleed secondary to gastric ulcers with hemorrhage exacerbated by use of Eliquis and aspirin-patient will remain off Eliquis and aspirin for now, she is receiving a PPI, hemoglobin appears to be stable at this time, CBC will be rechecked tomorrow #2 atrial fibrillation with RVR-patient remains on rate control medications at this time, her rate appears to be under control at the time of this dictation #3 hyperlipidemia-patient is on atorvastatin 40 mg daily #4 hypothyroidism-patient is on Synthroid #5 essential hypertension-I have elected to hold the patient's amlodipine at this time, she will remain on metoprolol and losartan as well as furosemide. #6 chronic depression-patient is on Effexor XR #7 class III obesity-complicates care, management, recovery, and prognosis #8 rheumatoid arthritis-patient will remain off prednisone at this time, Azulfidine was restarted, she will remain off methotrexate for now Total clinical time spent by myself addressing patient's medical issues, reviewing all of her data, and collaborating with patient's care team: 35 minutes Charges/Coding Visit Charges Inpatient E&M: 30671 Subs Hosp L2
[2025-07-12 04:00] VITALS: BP 110/59; PULSE 108; RESP 16; TEMP 36.9; O2SAT 92
[2025-07-12 05:16] VITALS: BMI 40.6
[2025-07-12 05:45] LABS: Hematocrit 28.4 % (37-47); Hemoglobin 9.3 g/dL (12.0-15.0); Immature Granulocytes Count 0.170 X10^3/uL (0.0-0.0); Mean Corp Hgb Conc 32.7 g/dL (32-36); Mean Corpuscular Volume 95.6 fL (81-99); Mean Platelet Vol. 11.3 fl (6.2-12.0); NRBC Flagged by Analyzer 0 % (0-5); Platelet Count 205 K/mm3 (150-450); RBC Distribution Width CV 18.0 % (11.6-14.6); RBC Distribution Width SD 60.7 fl (35.1-43.9); Red Blood Count 2.97 M/mm3 (4.2-5.4); White Blood Count 11.1 K/mm3 (4.4-11.0)
[2025-07-12] MEDS: Pantoprazole Sodium 80 MG in 0.9% Normal Saline (100mL Bag) 80 ML 10 MG CONT INF (06:13)
[2025-07-12 08:37] VITALS: BP 101/73; PULSE 118
[2025-07-12] MEDS: Metoprolol(XL)Succ 50 MG Tablet PO (08:37)
[2025-07-12 10:21] VITALS: BP 109/48; PULSE 102; RESP 16; TEMP 37.2; O2SAT 97
--- NOTE | 2025-07-12 11:15 | CASEMGMT ---
RADHA LOVE Face to Face with patient for initial transition planning/care coordination assessment. RN CM introduced self and role at [facility]. Patient lying in bed, alert and oriented. Patient willing to participate in assessment and is able to answer all questions appropriately. Care providers, pharmacy, and demographics verified. Strata: 3 PCP: Héctor Specialists: RA Stacia Preferred Pharmacy: [facility] Insurance: [employer] Prescription Benefit: yes Living Will/HPOA: yes, believe it is her daughters, grand son bringing in copy LNOK: daughters Living Arrangements: Patient lives with 2 daughters in a 2 story home. Patient states she is independent and able to ambulate stairs. Transportation: daughter, niece, grandson, [facility] Van DME/HHC: Patient has shower chair, raised toilet, cane, walker at home. Patient has been to [facility] in the past. Patient has had HHC in the past but could not recall agency Patient wishes to discharge home, denies need for home health at this time. Patient states she has no further needs or concerns at this time. CM to follow for discharge planning needs that may arise. Disposition Plan: Patient to discharge home with family support and follow-up plans in place. Sydney OWEN, RN, CM
--- NOTE | 2025-07-12 12:33 | DCINST_ITS ---
Discharge Instructions DC O2, CPAP, BIPAP needs Home O2 Discharge instructions: No Dressing / Incision Discharge Activity: Return to Normal Activity Weight Bearing Status: Full weight bearing Follow Up Care Test Results: Test results from this visit will be discussed in further detail at your follow- up appointment, if applicable. Discharge Plan Admission Admit Date/Time: 07/10/25 02:17 Primary Reason for Your Visit: Gastric ulcer with more GI bleed, atrial fib with RVR Attending Provider: Marciano Castellanos Primary Care Provider: Marciano Anaya Consulting Providers: Dakota Delarosa; Cuauhtemoc Mccallum; Anna Hernandez; Vicki Luna; Brianda Bergeron; Bro Gustafson; Pieter Hu Instructions Additional Instructions / Restrictions: Do not take any aspirin, Aleve, or ibuprofen-take Tylenol for pain Discharge Orders/Prescriptions Prescriptions: New nystatin 100,000 unit/gram Powder 1 applic topical BID Qty: 15 0RF Protocol: *Topical Application Instructions APPLICATION INSTRUCTIONS: axillary and abd folds sucralfate 1 gram Tablet 1 g PO TID@0700,1100,1600 Qty: 90 0RF pantoprazole [Protonix] 40 mg tablet,delayed release (DR/EC) 40 mg PO BID Qty: 60 0RF Continued oxycodone-acetaminophen 10-325 mg tablet PO Patient Comments: TAKE 1 TABLET BY MOUTH THREE TIMES DAILY NEEDED levothyroxine 100 mcg tablet PO meclizine 12.5 mg tablet PO methotrexate sodium 2.5 MG tablet 20 mg PO MO Patient Comments: Rheumatoid Arthritis - on Mondays albuterol sulfate [ProAir HFA] 1 PUFF inhaler 1 - 2 puff inhalation Q6H PRN PRN (Reason: Shortness Of Breath) Patient Comments: As needed for Shortness of Breath losartan 50 MG tablet 50 mg PO DAILY Qty: 30 0RF Patient Comments: blood pressure folic acid 1 MG tablet 1 mg PO DAILY@0800 Qty: 0 0RF prednisone 10 MG tablet 10 mg PO PRN PRN (Reason: arthritis flare up) Rx Instructions: for arthritis flare up sulfasalazine 500 MG tablet 1,000 mg PO BID venlafaxine 150 MG capsule,extended release 24hr 150 mg PO DAILY vitamins A,C,W-[id number]-fgweej 1 EACH tablet 1 tab PO DAILY magnesium oxide 400 MG tablet 400 mg PO DAILY furosemide 40 mg tablet 40 mg PO DAILY atorvastatin 40 mg tablet 40 mg PO DAILY metoprolol succinate 50 mg tablet extended release 24 hr 50 mg PO DAILY Held Eliquis 5 mg tablet 5 mg PO BID Hold Instructions: Resume on 07/19/25. Discontinued hydrochlorothiazide 25 MG tablet 25 mg PO DAILY Patient Comments: Blood pressure aspirin 81 MG tablet 81 mg PO DAILY@0800 Qty: 30 0RF amlodipine 5 mg tablet 5 mg PO DAILY Referrals / Follow Up: Marciano Anaya DO [Primary Care Provider] - In 1 Week Disposition Disposition (needs filled in before D/C Order can be placed): Home, Self Care
--- NOTE | 2025-07-12 12:49 | PCM.DC.SUM ---
Providers Date of Admission: 07/10/25 Date of Discharge: 07/12/25 Primary Care Physician: Dr. Marciano Anaya, DO Consultations 07/10/25 04:08 Consult: Gastroenterology Routine Consulting Provider: [facility] Reason for Consult: Suspected UGIB after DOAC. EMERGENT Consult: No MD Notified: Yes Date Notified: 07/10/25 Time Notified: 06:45 Method of Notification: Text Reason For Visit: AE CHF, AFIB; WITH RVR AND SUSPECTED GIB ON DOAC Diagnosis Discharge Diagnosis (1) Upper GI bleed: Status: Inactive Code(s): K92.2 - Gastrointestinal hemorrhage, unspecified Plan 1. Acute upper GI bleed secondary to gastric ulcers with hemorrhage exacerbated by use of Eliquis and aspirin-patient will remain off Eliquis and aspirin for now, she is receiving a PPI, hemoglobin appears to be stable at this time, CBC will be rechecked tomorrow #2 atrial fibrillation with RVR-patient remains on rate control medications at this time, her rate appears to be under control at the time of this dictation #3 hyperlipidemia-patient is on atorvastatin 40 mg daily #4 hypothyroidism-patient is on Synthroid #5 essential hypertension-I have elected to hold the patient's amlodipine at this time, she will remain on metoprolol and losartan as well as furosemide. #6 chronic depression-patient is on Effexor XR #7 class III obesity-complicates care, management, recovery, and prognosis #8 rheumatoid arthritis-patient will remain off prednisone at this time, Azulfidine was restarted, she will remain off methotrexate for now Heart failure was ruled out Total clinical time spent by myself addressing patient's medical issues, reviewing all of her data, and collaborating with patient's care team: 35 minutes Medications at Discharge Home Medications albuterol sulfate 90 mcg/actuation aerosol inhaler (ProAir HFA) 1 - 2 puff inhalation Q6H PRN PRN Shortness Of Breath 03/15/15 methotrexate sodium 2.5 mg tablet 20 mg PO MO Rheumatoid arthritis 03/15/15 folic acid 1 mg tablet 1 mg PO DAILY@0800 supplement #0 TABLETS 03/29/15 losartan 50 mg tablet 50 mg PO DAILY #30 TABLETS 03/29/15 prednisone 10 mg tablet 10 mg PO PRN PRN arthritis flare up 08/28/19 venlafaxine 150 mg capsule,extended release 24 hr 150 mg PO DAILY depression/anxiety 07/07/19 vitamins A,C,T-rwzr-jvjfkj 2,148 mcg-113 mg-45 mg-17.4 mg tablet 1 tab PO DAILY EYE HEALTH 07/07/19 magnesium oxide 400 mg PO DAILY SUPPLEMENT 09/19/20 levothyroxine 100 mcg tablet 100 mcg PO DAILY throid 07/16/23 meclizine 12.5 mg tablet 12.5 mg PO DAILY 07/16/23 oxycodone-acetaminophen 10 mg-325 mg tablet 1 tab PO Q8H PRN pain 07/16/23 apixaban 5 mg tablet (Eliquis) 5 mg PO BID blood thinner 07/09/25 Held on 07/14/25. Instructions: Resume on 07/19/25. atorvastatin 40 mg tablet 40 mg PO DAILY cholesterol 07/09/25 amlodipine 5 mg tablet 5 mg PO DAILY blood pressure 07/12/25 budesonide-formoterol HFA 80 mcg-4.5 mcg/actuation aerosol inhaler (Symbicort) 1 puff inhalation Q12H 07/12/25 nystatin 100,000 unit/gram topical powder 1 applic topical BID #15 grams 07/12/25 pantoprazole 40 mg tablet,delayed release (Protonix) 40 mg PO BID GI #60 tabs 07/12/25 metoprolol succinate 50 mg tablet,extended release 24 hr 100 mg (2 x 50 mg) PO DAILY #60 tabs 07/14/25 Hospital Course Operations None Procedures EGD Summary of Care Provided Minutes Spent on Discharge: 31 Hospital Course: This 79-year-old white female seen in the emergency room at [facility] with complaints of dyspnea and melanotic stools. She had been diagnosed recently with atrial fibrillation and placed on Eliquis and Lasix. Patient complained of epigastric pain as well as nausea and saw melanotic stools 24 hours ago. Workup in the emergency room revealed her white blood cell count to be 11.4, hemoglobin was 8.9, chemistry profile showed a elevated BUN. Troponin was slightly elevated at 20, beta natruretic peptide was 2359. Checks x-ray showed no acute disease and no infiltrates. Patient's pulse ox was 95 on room air. Patient was admitted to PCU, she was transfused 2 units of packed red blood cells, follow-up hemoglobin the next day was 8.1. She was seen in consultation by gastroenterology who performed an EGD which showed nonbleeding gastric ulcers. On 07/12/2025, patient was seen and examined: On examination she appeared in good health and spirits, she does not appear to be in any distress. Vital signs as documented. Skin warm and dry and without overt rashes. Neck without JVD, thyroid appears normal, trachea is midline, neck is supple. Lungs clear, normal air movement was noted. Heart exam notable for irregular rhythm, normal sounds and absence of murmurs, rubs or gallops. Abdomen unremarkable and without evidence of organomegaly, masses, or abdominal aortic enlargement, bowel sounds are present in all 4 quadrants, no abdominal tenderness was noted. Extremities nonedematous, no cyanosis was noted, no clubbing was noted. Neuro: Cranial nerves II through XII are grossly intact, no focal motor deficits were noted, sensation to light touch and pinprick is intact, motor exam 5/5 throughout. Psych: Patient is alert and oriented x3, she does not appear anxious or depressed, she does not appear agitated. Patient appears to be stable for discharge home on 07/12/2025 Weight / BMI Weight Weight: 110.8 kg Body Mass Index (BMI) 40.6 ABG / Lab / Microbiology Data 07/12/25 04:50 07/11/25 05:25 Laboratory: Laboratory Results - last 24 hr 07/12/25 04:50: WBC 11.1 H, RBC 2.97 L, Hgb 9.3 L, Hct 28.4 L, MCV 95.6, MCH 31.3, MCHC 32.7, RDW Std Deviation 60.7 H, RDW Coeff of Espinoza 18.0 H, Plt Count 205, MPV 11.3, Immature Gran % (Auto) 1.500 H, Neut % (Auto) 61.4, Lymph % (Auto) 23.7, [place] % (Auto) 8.9, Eos % (Auto) 4.0, Baso % (Auto) 0.5, Absolute Neuts (auto) 6.8, Absolute Lymphs (auto) 2.64, Nucleated RBC % 0 Microbiology: Microbiology 07/09/25 22:31 Stool Stool Occult Blood (FRANSICO) - Final Occult Blood Positive D/C Instructions Weight Bearing Status: Full weight bearing DC O2, CPAP, BIPAP Needs Home O2 Discharge instructions: No Meaningful Use Info Meaningful Use Meaningful Use Diagnoses (Choose all that apply): None applicable Discharge Plan Admission Admit Date/Time: 07/10/25 02:17 Primary Reason for Your Visit: Gastric ulcer with more GI bleed, atrial fib with RVR Attending Provider: Marciano Castellanos Primary Care Provider: Marciano Anaya Consulting Providers: Dakota Delarosa; Cuauhtemoc Mccallum; Anna Hernandez; Vicki Luna; Brianda Bergeron; Bro Gustafson; Pieter Hu Instructions Additional Instructions / Restrictions: Do not take any aspirin, Aleve, or ibuprofen-take Tylenol for pain Discharge Orders/Prescriptions Prescriptions: New nystatin 100,000 unit/gram Powder 1 applic topical BID Qty: 15 0RF Protocol: *Topical Application Instructions APPLICATION INSTRUCTIONS: axillary and abd folds pantoprazole [Protonix] 40 mg tablet,delayed release (DR/EC) 40 mg PO BID Qty: 60 0RF Continued oxycodone-acetaminophen 10-325 mg tablet 1 tab PO Q8H PRN (Reason: pain) Patient Comments: TAKE 1 TABLET BY MOUTH THREE TIMES DAILY NEEDED levothyroxine 100 mcg tablet 100 mcg PO DAILY meclizine 12.5 mg tablet 12.5 mg PO DAILY methotrexate sodium 2.5 MG tablet 20 mg PO MO Patient Comments: Rheumatoid Arthritis - on Mondays albuterol sulfate [ProAir HFA] 1 PUFF inhaler 1 - 2 puff inhalation Q6H PRN PRN (Reason: Shortness Of Breath) Patient Comments: As needed for Shortness of Breath losartan 50 MG tablet 50 mg PO DAILY Qty: 30 0RF Patient Comments: blood pressure folic acid 1 MG tablet 1 mg PO DAILY@0800 Qty: 0 0RF prednisone 10 MG tablet 10 mg PO PRN PRN (Reason: arthritis flare up) Rx Instructions: for arthritis flare up venlafaxine 150 MG capsule,extended release 24hr 150 mg PO DAILY vitamins A,C,V-[id number]-jmkoam 1 EACH tablet 1 tab PO DAILY magnesium oxide 400 MG tablet 400 mg PO DAILY atorvastatin 40 mg tablet 40 mg PO DAILY Held Eliquis 5 mg tablet 5 mg PO BID Hold Instructions: Resume on 07/19/25. Discontinued hydrochlorothiazide 25 MG tablet 25 mg PO DAILY Patient Comments: Blood pressure aspirin 81 MG tablet 81 mg PO DAILY@0800 Qty: 30 0RF amlodipine 5 mg tablet 5 mg PO DAILY No Action amlodipine 5 mg tablet 5 mg PO DAILY budesonide-formoterol [Symbicort] 80-4.5 mcg/actuation HFA aerosol inhaler 1 puff inhalation Q12H metoprolol succinate 50 mg Tablet Extended Release 24 Hr 100 mg PO DAILY Qty: 60 0RF Referrals / Follow Up: Marciano Anaya DO [Primary Care Provider] - In 1 Week Disposition Disposition (needs filled in before D/C Order can be placed): Home, Self Care Charges/Coding Visit Charges Inpatient E&M: 09303 Disch Hosp >30min
[2025-07-12 15:15] VITALS: BP 117/98; PULSE 96; RESP 16; TEMP 36.9; O2SAT 94
--- NOTE | 2025-07-12 15:37 | CASEMGMT ---
Social Work Pt's grandson brought in LW/POA documents that were completed but not signed. SW verified who pt put as POA and alternate. Pt completed and signed the document. SW gave pt originals and copies, and copies placed on chart. No further needs anticipated at this time. MIKE Vaughan
== END 2025-07-12 15:42 | disposition home or self-care (01) | DRG 378 ==
LOC: ED 07-10 02:27 → PCU 07-10 02:35
PROVIDERS: Anesthesiology; Hospitalist; Internal Medicine Gastroenterology; Admitting Provider Internal Medicine; Emergency Provider Student in an Organized Health Care Education/Training Program; PCP Family Medicine; Visit Provider Internal Medicine
PROC: 0DJ08ZZ Inspection of Upper Intestinal Tract, Via Natural or Artificial Opening Endoscopic (ICD-10-PCS; CPT 43235; principal; 2025-07-11 11:00)
DX: K25.0 Acute gastric ulcer with hemorrhage (principal); D68.32 Hemorrhagic disorder due to extrinsic circulating anticoagulants; Z68.41 Body mass index [BMI] 40.0-44.9, adult; D62 Acute posthemorrhagic anemia; J44.9 Chronic obstructive pulmonary disease, unspecified; M06.9 Rheumatoid arthritis, unspecified; I10 Essential (primary) hypertension; E03.9 Hypothyroidism, unspecified; F32.A Depression, unspecified; I48.91 Unspecified atrial fibrillation; E78.5 Hyperlipidemia, unspecified; I25.10 Atherosclerotic heart disease of native coronary artery without angina pectoris; E66.01 Morbid (severe) obesity due to excess calories; T45.515A Adverse effect of anticoagulants, initial encounter; E66.813 Obesity, class 3; G89.4 Chronic pain syndrome; Z79.01 Long term (current) use of anticoagulants; Z79.82 Long term (current) use of aspirin; Z79.890 Hormone replacement therapy; Z79.899 Other long term (current) drug therapy; Z87.891 Personal history of nicotine dependence
CPT/HCPCS: 36415; 71046; 74177; 80048; 80053; 81001; 82274; 82607; 82728; 82746; 83036; 83540; 83550; 83690; 83735; 83880; 84100; 84443; 84484; 85025; 85027; 85610; 85730; 86850; 86900; 86901; 93005; 94640; 94668; 97163; 97165; 97530; 97535; 99285; C1889; P9016; P9612; Q9967; A4216; J1938; J2405

== ENCOUNTER 2025-07-12 19:11 | Inpatient (IN) | payer MEDICARE, OTHER, SELFPAY ==
[2025-07-12 19:12] VITALS: BP 102/58; PULSE 127; RESP 20; TEMP 36.6; O2SAT 93
[2025-07-12 21:12] VITALS: BP 108/55; PULSE 114; RESP 18; O2SAT 96
--- NOTE | 2025-07-12 21:20 | EKG12_ITS ---
Test Reason : DYSRHYTHMIA Blood Pressure : */* mmHG Vent. Rate : 109 BPM Atrial Rate : * BPM P-R Int : * ms QRS Dur : 90 ms QT Int : 348 ms P-R-T Axes : * 42 107 degrees QTcB Int : 468 ms Atrial fibrillation with rapid ventricular response Nonspecific T wave abnormality Abnormal ECG Confirmed by Arturo Man ([id number]), brands editor HUAN NORWOOD ([id number]) on 07/13/2025 10:32:45 AM Referred By: Confirmed By: Arturo Man
[2025-07-12 21:27] VITALS: BMI 40.8
[2025-07-12 21:50] LABS: Hematocrit 30.0 % (37-47); Hemoglobin 9.8 g/dL (12.0-15.0); Immature Granulocytes Count 0.270 X10^3/uL (0.0-0.0); Mean Corp Hgb Conc 32.7 g/dL (32-36); Mean Corpuscular Volume 96.5 fL (81-99); Mean Platelet Vol. 11.1 fl (6.2-12.0); NRBC Flagged by Analyzer 0.3 % (0-5); Platelet Count 252 K/mm3 (150-450); RBC Distribution Width CV 18.2 % (11.6-14.6); RBC Distribution Width SD 60.5 fl (35.1-43.9); Red Blood Count 3.11 M/mm3 (4.2-5.4); White Blood Count 18.3 K/mm3 (4.4-11.0)
[2025-07-12 22:13] LABS: AST(SGOT) 20 U/L (<=31); Alanine Aminotransfer ALT/SGPT 13 U/L (<=34); Albumin, Serum 3.6 g/dL (3.4-4.8); Alkaline Phosphatase 101 U/L (35-104); Anion Gap 12 (5-15); BUN 29 mg/dL (4-19); BUN/Creat Ratio 16.9 RATIO (10-20); Calcium,Total 9.2 mg/dL (7.6-11.0); Carbon Dioxide 23.4 mmol/L (21.0-32.0); Chloride 101 mmol/L (98-108); Estimated Creatinine Clearance 33.13 ml/min (50-250); Globulin 2.8 g/dL (2.2-4.2); Glucose 127 mg/dL (70-99); Potassium 4.1 mmol/L (3.3-5.1)
[2025-07-12 22:22] LABS: Mucous, Urine 0 SEEN /hpf (<or=2+); Red Blood Cells-Urine 0 SEEN /hpf (0-5)
--- NOTE | 2025-07-12 22:35 | PCM.HP.STD ---
HPI - General General Date of Admission: 07/12/25 Date of Service: 07/12/25 Chief Complaint: Severe Diarrhea, debility, weakness. HPI Narrative The patient is a 79 y/o F w/ PMHx: Hypothyroidism, Hx Diabetes mellitus type II, Former EtOH abuse sober, PAF, Asthma/COPD, Former tobacco use, Anxiety and Depression, HTN, HLD, Chronic pain syndrome, Rheumatoid arthritis, Morbid obesity, CKD stage II/III unclear subtype, HFpEF, recently discharged home day of presentation following evaluation and treatment for upper GI bleed secondary to gastric ulcers with hemorrhage exacerbated by use of Eliquis and aspirin with a hemoglobin noted 03/18/2025 at 12.1 dropping down during recent admission on 07/10/25 Hgb 7.4 with PRBC administered 07/11/25 EGD with noted normal esophagus with nonobstructing oozing gastric ulcers with visible vessel with no perforations with clips placed and nonbleeding gastric ulcers with pigmented material treated with argon plasma coagulation without discharge 07/12/25 Hgb 9.3 in addition to episode PAF with RVR with patient discharged on high-dose twice daily PPI and sucralfate in addition to topical nystatin for intertrigo treatment who re-presents to [facility] ED on 07/12/2025 with history of onset dizziness and generalized weakness following a loose bowel movement on evening on day of presentation noted to be brown with dark spots with recent upper GI bleed with evaluation per Dr. Mccallum prompting ED return. Workup in the ED included T97.8, heart rate 127, BP 102/58, respiratory rate 20, 93% room air, CBC with WC 18.3, hemonine 0.8, MCV 96.5, platelet 252 with left shift, CMP BUN/Cr 29/1.71, GFR 30, glucose 127 otherwise not marked appearing, urinalysis with specific gravity 1.20, protein 100, ketone 5, occult blood 250, negative nitrite, leukocyte esterase 500, urine WBCs 10-25 with urine squamous epithelial cells 10-25 thus not a great sample with 2+ bacteria, EKG PAF with RVR with no acute evidence of ischemia. In the ED patient administerd IVFs and Lopressor 5 mg IV x 1. [facility] Medical History Atrial fibrillation Squamous cell skin cancer Skin lesion of hand Acute kidney injury Acute respiratory failure with hypoxia Lactic acidosis Vision disturbance Chronic pain syndrome Acute blood loss anemia Anxiety and depression Asthma HLD (hyperlipidemia) Morbid obesity GI bleed Hyperkalemia Hypertension History of rheumatoid arthritis Home Medications ?Medication ?Instructions ?Recorded ?Last Taken ?Type albuterol sulfate 90 mcg/actuation 1 - 2 puff inhalation Q6H PRN PRN 03/15/15 10/09/16 History aerosol inhaler (ProAir HFA) Shortness Of Breath methotrexate sodium 2.5 mg tablet 20 mg PO MO Rheumatoid arthritis 03/15/15 09/18/20 History folic acid 1 mg tablet 1 mg PO DAILY@0800 #0 TABLETS 03/29/15 09/19/20 11:00 Rx losartan 50 mg tablet 50 mg PO DAILY #30 TABLETS 03/29/15 09/19/20 11:00 Rx prednisone 10 mg tablet 10 mg PO PRN PRN arthritis flare up 07/07/19 3 Days Ago History ~09/16/20 venlafaxine 150 mg 150 mg PO DAILY depression/anxiety 07/07/19 09/19/20 11:00 History capsule,extended release 24 hr vitamins A,C,W-[id number] 2,148 1 tab PO DAILY EYE HEALTH 07/07/19 09/19/20 11:00 History mcg-113 mg-45 mg-17.4 mg tablet magnesium oxide 400 mg PO DAILY SUPPLEMENT 09/19/20 09/19/20 11:00 History levothyroxine 100 mcg tablet 100 mcg PO DAILY 07/16/23 Unknown History meclizine 12.5 mg tablet 12.5 mg PO DAILY 07/16/23 Unknown History oxycodone-acetaminophen 10 mg-325 1 tab PO Q8H PRN pain 07/16/23 Unknown History mg tablet apixaban 5 mg tablet (Eliquis) 5 mg PO BID blood thinner 07/09/25 Unknown History Held on 07/12/25. Instructions: Resume on 07/19/25. atorvastatin 40 mg tablet 40 mg PO DAILY cholesterol 07/09/25 Unknown History furosemide 40 mg tablet 40 mg PO DAILY diuretic 07/09/25 Unknown History metoprolol succinate 50 mg 50 mg PO DAILY blood pressure 07/09/25 Unknown History tablet,extended release 24 hr amlodipine 5 mg tablet 5 mg PO DAILY 07/12/25 Unknown History budesonide-formoterol HFA 80 1 puff inhalation Q12H 07/12/25 Unknown History mcg-4.5 mcg/actuation aerosol inhaler (Symbicort) nystatin 100,000 unit/gram topical 1 applic topical BID #15 grams 07/12/25 Unknown Rx powder pantoprazole 40 mg tablet,delayed 40 mg PO BID #60 tabs 07/12/25 Unknown Rx release (Protonix) Allergy/AdvReac Type Severity Reaction Status Date / Time adhesive Allergy Other Verified 07/12/25 19:12 amoxicillin trihydrate (From Allergy Unknown Verified 07/12/25 19:12 Augmentin) latex Allergy Unknown Verified 07/12/25 19:12 Penicillins Allergy Unknown Verified 07/12/25 19:12 potassium clavulanate (From Allergy Unknown Verified 07/12/25 19:12 Augmentin) tetracycline Allergy Unknown Verified 07/12/25 19:12 Family History Sister Hypertension Brother Heart disease Mother Diabetes Heart disease Hypertension CVA (cerebral vascular accident) Skin cancer Father Prostate cancer Surgical History History of hand surgery History of reverse total replacement of left shoulder joint History of tonsillectomy History of appendectomy History of tubal ligation History of knee replacement History of hip replacement History of back surgery Status post reverse total replacement of right shoulder Social History household members: none Smoking Status: Former smoker alcohol intake: former substance use type: does not use ROS ROS Narrative Admission Review of Systems: CONSTITUTIONAL: No weight loss, fever, chills, + weakness or fatigue. HEENT: + Dizziness, lightheadedness. Eyes: No visual loss, blurred vision, double vision or yellow sclerae. Ears, Nose, Throat: No hearing loss, sneezing, congestion, runny nose or sore throat. SKIN: No rash or itching, lesions, wounds. CARDIOVASCULAR: + Chronic lower extremity edema, dizziness/lightheadedness acutely. No chest pain, chest pressure or chest discomfort, palpitations, rthopnea, syncopal events. RESPIRATORY: No shortness of breath, cough or sputum, wheezing, hemoptysis. GASTROINTESTINAL: + Recurrent melanotic/red-brown stools, loose stools. No anorexia, nausea, vomiting, abdominal pain, BRBPR. GENITOURINARY: No dysuria, frequency, urgency or retention. NEUROLOGICAL: + Lightheadedness, dizziness. No headache, syncope, paralysis, ataxia, numbness or tingling in the extremities, focal weakness, change in bowel or bladder control, seizure. MUSCULOSKELETAL: + muscle, back pain, joint pain or stiffness. HEMATOLOGIC: + Anemia, recent active history of GI bleed, easy bleeding/bruising previous given medication. LYMPHATICS: No enlarged nodes. No history of splenectomy. PSYCHIATRIC: + History of anxiety and depression. ENDOCRINOLOGIC: No reports of sweating, cold or heat intolerance. No polyuria or polydipsia. ALLERGIES: + History of asthma. Vital Signs Vital Signs Vital Signs: 07/12/25 19:12 07/12/25 21:12 07/12/25 21:35 Temperature 97.8 F Temperature Source Temporal Pulse Rate 127 H 114 H Respiratory Rate 20 H 18 Respiratory Effort Normal Non-Labored Respiratory Pattern Normal Blood Pressure 102/58 L 108/55 L Blood Pressure Mean 72 72 Pulse Ox 93 96 Oxygen Delivery Method Room Air Room Air Weight Weight: 245 lb 2.464 oz Body Mass Index (BMI) 40.8 Physical Exam Narrative Physical Examination: General: Awake, alert, oriented x 3 and cooperative, laying in the ED bed, fatigued but notes feeling only improved since initial ED arrival. Skin: Normal color, normal turgor, no icterus, no cyanosis except for occasional stage ecchymoses, abrasion, bilateral lower extremity venous stasis skin changes. HEENT: AT/NC, EOMI, PERRLA, mildly dry MM, no carotid bruits or JVD noted. Lungs: Mildly diminished, greater bases, poor effort, no rales, ronchi or wheezing. Heart: Irregular irregular; no gallop, rub audible. Abdomen: Soft, morbidly obese, NTTP, hyperactive BS, difficult to discern distention HSM given habitus. Extremities: No cyanosis, no clubbing, bilateral lower extremity pedal to knee chronic edema. Neurological: Patient awake, alert, oriented as noted, cognitive function intact; pupils equally reactive to light and accommodation, cranial nerves grossly normal, moving all 4 extremities, no focal deficits, strength moderately to severely globally decreased. Psychiatric: Affect appears flat, fatigued, no acute evidence of depressive or anxiety feelings but does have underlying history. Results Lab / Micro Data 07/12/25 21:38 07/12/25 21:38 Labs: Laboratory Results - last 24 hr 07/12/25 21:38: WBC 18.3 H, RBC 3.11 L, Hgb 9.8 L, Hct 30.0 L, MCV 96.5, MCH 31.5, MCHC 32.7, RDW Std Deviation 60.5 H, RDW Coeff of Espinoza 18.2 H, Plt Count 252, MPV 11.1, Immature Gran % (Auto) 1.500 H, Neut % (Auto) 77.6 H, Lymph % (Auto) 12.8 L, Terrell % (Auto) 7.1, Eos % (Auto) 0.7, Baso % (Auto) 0.3, Absolute Neuts (auto) 14.2 H, Absolute Lymphs (auto) 2.34, Nucleated RBC % 0.3, Sodium 137, Potassium 4.1, Chloride 101, Carbon Dioxide 23.4, Anion Gap 12, BUN 29 H, Creatinine 1.71 H, Estim Creat Clear Calc 33.13 L, Est GFR (MDRD) Non-Af 30 L, BUN/Creatinine Ratio 16.9, Glucose 127 H, Calcium 9.2, Total Bilirubin 0.37, AST 20, ALT 13, Alkaline Phosphatase 101, Total Protein 6.5, Albumin 3.6, Globulin 2.8, Albumin/Globulin Ratio 1.3 Assessment & Plan Assessment/Plan (1) TRUMAN (acute kidney injury): PLAN: Plan The patient is a 79 y/o F w/ PMHx: Hypothyroidism, Hx Diabetes mellitus type II, Former EtOH abuse sober, PAF, Asthma/COPD, Former tobacco use, Anxiety and Depression, HTN, HLD, Chronic pain syndrome, Rheumatoid arthritis, Morbid obesity, CKD stage II/III unclear subtype, HFpEF, recently discharged home day of presentation following evaluation and treatment for upper GI bleed secondary to gastric ulcers with hemorrhage exacerbated by use of Eliquis and aspirin with a hemoglobin noted 03/18/2025 at 12.1 dropping down during recent admission on 07/10/25 Hgb 7.4 with PRBC administered 07/11/25 EGD with noted normal esophagus with nonobstructing oozing gastric ulcers with visible vessel with no perforations with clips placed and nonbleeding gastric ulcers with pigmented material treated with argon plasma coagulation without discharge 07/12/25 Hgb 9.3 in addition to episode PAF with RVR with patient discharged on high-dose twice daily PPI and sucralfate in addition to topical nystatin for intertrigo treatment who re-presents to [facility] ED on 07/12/2025 with history of onset dizziness and generalized weakness following a loose bowel movement on evening on day of presentation noted to be brown with dark spots with recent upper GI bleed with evaluation per Dr. Mccallum prompting ED return. #1. Acute onset Dizziness, lightheadedness with TRUMAN on CKD stage II/III possible secondary to GI losses with severe diarrhea with general debility, adult failure to thrive recently discharged on day of presentation following suspected Acute upper GI bleed with gastric ulcers exacerbated by DOAC and aspirin therapy w/ resultant Acute Blood Loss Anemia with questionable acute complicated urinary tract infection however poor sample: Patient w/ following discharge concern for recurrent GI bleeding given lightheadedness, dizziness following significant diarrheal episode at home with stable hemoglobin upon current ED evaluation. Given significant acute kidney injury possibly from GI losses will admit to PCU given also PAF with RVR likely secondary to mild dehydration, maintain on fall precautions, will reattempt urinalysis with straight cath sample as notable squamous epithelial cells and send urine culture from this and if concerning UA will initiate antibiotic therapy, will continue judicious IV fluids, hold hypertensive medication and nephrotoxic medication as able although continue beta-rivera therapy as BP allows with plan for Lopressor 5 mg IV x 1 to be administered in the ED prior to transition, hold all nephrotoxic medications, plan repeat CBC, CMP in AM. Will obtain AM orthostatic VS. Will obtain PT/OT/case management consultation for discharge planning as patient may require skilled transition prior to transition to home to be safe. #2. PAF w/ RVR: Given hypotensive presentation, IV fluids administered in the ED, likely secondary to GI losses also contributing to RVR episode, Lopressor 5 mg IV x 1 will be administered in the ED and as able will continue metoprolol regimen if possible, additionally holding eliquis given presentation as noted #1, magnesium level requested. #3. HFpEF: Noted in chart history, most recent echocardiogram 09/20/2020 with normal LV size, LV systolic function normal, EF 65%, stage I diastolic dysfunction. Cautiously hydrating, holding Eliquis given presentation, continue statin, given hypotension temporarily holding patient home metoprolol losartan regimen as noted in addition to hold on diuretic Lasix therapy. #4. History of Diabetes mellitus type II: Most recent hemoglobin A1c noted 07/09/2025 to be 5.5% within the past 12/08/2019 hemoglobin A1c up to 6.4%, hold oral home regimen, continue home insulin regimen, ADA diet, accu checks w/ ISS. #5. Rheumatoid arthritis: Holding oral as needed steroids, cautiously continue sulfasalazine, methotrexate dosing noted to be every Friday but was held during recent admission given GI bleed presentation, continue folic acid supplementation. #6. Chronic asthma/COPD: Will maintain on ATC budesonide therapy, will have as needed albuterol, encourage head of bed and I-S. #7. Hypertension: Given hypotensive presentation will temporally hold home losartan and Lasix regimen, add back once clinically appropriate and renal function improved. #8. Hyperlipidemia: Continue patient on statin therapy. #9. Anxiety and depression: Will continue patient on venlafaxine regimen however will alter/hold as needed for renal function given TRUMAN. #10. Morbid Obesity: Weight loss and lifestyle changes encouraged. #11. Former tobacco use: Encouraged continued tobacco cessation. #12. Former alcohol abuse: Encouraged continued sobriety, sober for approximately 34-35 years. DVT prophylaxis: SCDs. #13. Hypothyroidism: Will continue patient on levothyroxine regimen. #14. CODE status: Patient BENNIE is her daughters and living will is currently in place. Discussed CODE status at length including difference between FULL code, DNR-CCA and DNR-CC status. Following discussions about the differences in these status, requested DNR-CCA and following discussions and examples reviewed with allowance of intubation short-term. Advanced Care Planning Face to Face Time: 16 minutes. Charges/Coding Visit Charges Inpatient E&M: 31550 Init Hosp L3 Procedures Hospitalists Procedures: 72587 Advncd Care Plan 30 Min
[2025-07-12 22:45] VITALS: BP 133/73; PULSE 109
[2025-07-12 22:47] LABS: Color, Urine Yellow (Yellow); Glucose, Dipstick Normal (Normal); Ketone-Dipstick 5 mg/dl (Negative); Leukocyte Esterase-Dipstick 500 /ul (Negative); Nitrite-Dipstick Negative (Negative); Occult Blood-Urine 250 /ul (Negative); Protein-Dipstick 100 mg/dl (Negative); Specific Gravity, Urine 1.020 (1.002-1.030)
[2025-07-12 22:54] LABS: Urine Bilirubin Dipstick 6 mg/dL (Negative)
[2025-07-12] MEDS: 0.9% Normal Saline (1000mL) 1,000 ML 200 ML IV (22:55)
[2025-07-12 22:59] VITALS: BP 128/79; PULSE 101; RESP 22; TEMP 36.6; O2SAT 95
[2025-07-12 23:05] LABS: Magnesium 2.1 mg/dL (1.5-2.2)
[2025-07-12 23:08] LABS: Fine Granular Cast- Urine 0-5 SEEN /lpf (0-5); Squamous Epithelial Cells - UA 10-25 SEEN /hpf (5-10)
[2025-07-12 23:10] LABS: Transitional Epithelial - Ur 0-5 SEEN /hpf (0-5)
[2025-07-12 23:20] VITALS: BP 105/77; PULSE 101; RESP 18; TEMP 36.8; O2SAT 94; BMI 39.9
[2025-07-12 23:45] VITALS: O2SAT 94
[2025-07-13] VITALS (11 sets, daily range): BP systolic 92–129; BP diastolic 54–74; PULSE 69–120; RESP 16–18; TEMP 36.7–37; O2SAT 95–97; BMI 39.9
[2025-07-13] MEDS: 0.9% Normal Saline (1000mL) 1,000 ML 100 ML IV (00:10)
--- NOTE | 2025-07-13 00:27 | EDS_ITS ---
HPI HPI - GI History of Present Illness Chief Complaint: GI Bleed Informant: patient and family Diarrhea/Melena/Hematochezia GI Symptom: Positive for Diarrhea Onset: Today Narrative Narrative: Patient is a 79-year-old female with history of atrial fibrillation and a recent admission for upper GI bleeding. She was actually just discharged from the hospital today. She states before she left they gave her solid food for the first time (previously been on clear liquid diet). Currently tenderness after getting home she had robust episode of diarrhea. She states she could make it to the bathroom initially. She states she had a very large amount of stool come out. There was what appeared to be some dark blood mixed with the stool but she is not entirely certain. She states she then started feel very weak and dizzy. She is then brought back to the emergency room. She denies dizziness abdominal pain. She notes she did feel she was having a hard time moving around. She not take any of her evening medicines and states she had been at time to go over her discharge paperwork before returning to the emergency room. She has had her anticoagulation on hold because of her recent GI bleed. Denies any associated fevers, chest pain, nausea or vomiting peer [facility] Medical History Fatigue SCHULTZ (dyspnea on exertion) Leukocytosis Morbid obesity with BMI of 40.0-44.9, adult Acute exacerbation of chronic heart failure Atrial fibrillation with RVR Adverse drug reaction Upper GI bleed Melanotic stools ABLA (acute blood loss anemia) Atrial fibrillation Squamous cell skin cancer Skin lesion of hand Acute kidney injury Acute respiratory failure with hypoxia Lactic acidosis Vision disturbance Chronic pain syndrome Acute blood loss anemia Anxiety and depression Asthma HLD (hyperlipidemia) Morbid obesity GI bleed Hyperkalemia Hypertension History of rheumatoid arthritis Home Medications ?Medication ?Instructions ?Recorded ?Last Taken ?Type albuterol sulfate 90 mcg/actuation 1 - 2 puff inhalati on Q6H PRN PRN 03/15/15 10/09/16 History aerosol inhaler (ProAir HFA) Shortness Of Breath methotrexate sodium 2.5 mg tablet 20 mg PO MO Rheumato id arthritis 03/15/15 09/18/20 History folic acid 1 mg tablet 1 mg PO DAILY@0800 #0 TABLET S 03/29/15 09/19/20 11:00 Rx losartan 50 mg tablet 50 mg PO DAILY #30 TABLETS 0 03/29/15 09/19/20 11:00 Rx prednisone 10 mg tablet 10 mg PO PRN PRN arthritis f lare up 07/07/19 3 Days Ago History ~09/16/20 venlafaxine 150 mg 150 mg PO DAILY depression/a nxiety 07/07/19 09/19/20 11:00 History capsule,extended release 24 hr vitamins A,C,B-mbsa-cefivg 2,148 1 tab PO DAILY EYE HE ALTH 07/07/19 09/19/20 11:00 History mcg-113 mg-45 mg-17.4 mg tablet magnesium oxide 400 mg PO DAILY SUPPLEMENT 1 11/19/19 09/19/20 11:00 History levothyroxine 100 mcg tablet 100 mcg PO DAILY 07/16/23 Unknown History meclizine 12.5 mg tablet 12.5 mg PO DAILY 07/16/23 Un known History oxycodone-acetaminophen 10 mg-325 1 tab PO Q8H PRN heidi n 07/16/23 Unknown History mg tablet apixaban 5 mg tablet (Eliquis) 5 mg PO BID blood thinn er 07/09/25 Unknown History Held on 07/12/25. Instructions: Resume on 07/19/25. atorvastatin 40 mg tablet 40 mg PO DAILY cholesterol 0 07/09/25 Unknown History furosemide 40 mg tablet 40 mg PO DAILY diuretic 06/12 Unknown History metoprolol succinate 50 mg 50 mg PO DAILY blood pressu re 07/09/25 Unknown History tablet,extended release 24 hr amlodipine 5 mg tablet 5 mg PO DAILY 07/12/25 Unkno wn History budesonide-formoterol HFA 80 1 puff inhalation Q12H Unknown History mcg-4.5 mcg/actuation aerosol inhaler (Symbicort) nystatin 100,000 unit/gram topical 1 applic topical BI D #15 grams 07/12/25 Unknown Rx powder pantoprazole 40 mg tablet,delayed 40 mg PO BID #60 tab s 07/12/25 Unknown Rx release (Protonix) Allergy/AdvReac Type Severity Reaction Status Date / Time adhesive Allergy Other Verified 07/12/25 19:12 amoxicillin trihydrate (From Allergy Unknown Verified 07/12/25 19:12 Augmentin) latex Allergy Unknown Verified 07/12/25 19:12 Penicillins Allergy Unknown Verified 07/12/25 19:12 potassium clavulanate (From Allergy Unknown Verified 07/12/25 19:12 Augmentin) tetracycline Allergy Unknown Verified 07/12/25 19:12 Family History Sister Hypertension Brother Heart disease Mother Diabetes Heart disease Hypertension CVA (cerebral vascular accident) Skin cancer Father Prostate cancer Surgical History History of hand surgery History of reverse total replacement of left shoulder joint History of tonsillectomy History of appendectomy History of tubal ligation History of knee replacement History of hip replacement History of back surgery Status post reverse total replacement of right shoulder Social History household members: none Smoking Status: Former smoker alcohol intake: former substance use type: does not use ROS ROS ED Constitutional Constitutional ED: Reports other Details: Generalized weakness, lightheaded ; Denies chills or fever(s) Cardiovascular Cardiovascular: Denies chest pain or palpitations Respiratory/Chest Respiratory/Chest: Denies cough or dyspnea Gastrointestinal Gastrointestinal: Reports diarrhea and melena; Denies abdominal pain, nausea or vomiting Genitourinary Genitourinary ED: Denies dysuria Musculoskeletal Musculoskeletal: Denies arthralgias or myalgias Integumentary Denies rash Neurologic Neurologic: Reports weakness Hematologic/Lymphatic Hematologic/Lymphatic: Reports easy bleeding and easy bruising EXAM Physical Exam Const Vital Signs: 07/12/25 19:12 07/12/25 21:12 07/12/25 21:35 Temperature 97.8 F Temperature Source Temporal Pulse Rate 127 H 114 H Respiratory Rate 20 H 18 Respiratory Effort Normal Non-Labored Respiratory Pattern Normal Blood Pressure 102/58 L 108/55 L Blood Pressure Mean 72 72 Pulse Ox 93 96 Oxygen Delivery Method Room Air Room Air Positive well nourished, well developed and obese General Appearance ED: well developed and NAD; Negative for pallor Nutritional Appearance: obese HEENT Reports dry mucous membranes normocephalic Mouth ED: Yes dry mucous membranes Mouth: dry mucous membranes Eyes PERRL and EOMs intact bilaterally Neck supple Resp normal respiratory effort and clear to auscultation bilaterally Cardio no murmurs Rate: tachycardic Rhythm: abnormal rhythm irregularly irregular GI non-tender and non-distended GI Narrative: Chaperoned rectal exam performed. Patient has darker brown stool with some subtle red discoloration to it Neuro moves all extremities Sensorium / Orientation: alert, oriented to person, oriented to place and oriented to time Motor Exam: general weakness Psych mental status grossly normal and thought process normal Skin no wounds General Skin Exam: Negative for jaundice or pallor MDM MDM MDM Narrative Medical decision making narrative: Patient evaluated for episode of diarrhea with associated generalized weakness. She was just discharged from the hospital today after admission for upper GI bleeding. Differential includes diverticulitis, further GI bleeding, urinary tract infection, functional diarrhea. Lower suspicion for ischemic colitis as patient is not having associate abdominal pain. Also consider C. difficile however she has only had 1 episode of diarrhea. Patient is tachycardic upon arrival however she got her evening medications. Is given IV fluids in the emergency room. CBC does show leukocytosis of 18.3 with a left shift. Question infection versus reactive with her diarrhea. She does have an acute kidney injury with a creatinine of 1.71 (was 1.00 yesterday). No significant electrolyte derangement. Urinalysis does show 2+ bacteria but is contaminated. Will send for culture but will hold off on treatment at this time. Hemoglobin is stable still. Low suspicion for acute bleeding. Patient is given 5 mg IV metoprolol as she is in A-fib with RVR. She is asymptomatic from that standpoint. She does have a history of this. Will discuss with hospitalist for admission. Patient and family agreeable. Discharge summary from earlier today is reviewed?patient had acute upper GI bleed secondary gastric ulcers exacerbated by Eliquis and aspirin. Is off Eliquis and aspirin for now. Is on PPI therapy. Hemoglobin stable at time of discharge. Lab Data Attestation: I reviewed the patient's lab results. Labs: Laboratory Results - last 24 hr 07/12/25 07/12/25 21:38 22:05 WBC 18.3 H RBC 3.11 L Hgb 9.8 L Hct 30.0 L MCV 96.5 MCH 31.5 MCHC 32.7 RDW Std Deviation 60.5 H RDW Coeff of Espinoza 18.2 H Plt Count 252 MPV 11.1 Immature Gran % (Auto) 1.500 H Neut % (Auto) 77.6 H Lymph % (Auto) 12.8 L [place] % (Auto) 7.1 Eos % (Auto) 0.7 Baso % (Auto) 0.3 Absolute Neuts (auto) 14.2 H Absolute Lymphs (auto) 2.34 Nucleated RBC % 0.3 Sodium 137 Potassium 4.1 Chloride 101 Carbon Dioxide 23.4 Anion Gap 12 BUN 29 H Creatinine 1.71 H Estim Creat Clear Calc 33.13 L Est GFR (MDRD) Non-Af 30 L BUN/Creatinine Ratio 16.9 Glucose 127 H Calcium 9.2 Magnesium 2.1 Total Bilirubin 0.37 AST 20 ALT 13 Alkaline Phosphatase 101 Total Protein 6.5 Albumin 3.6 Globulin 2.8 Albumin/Globulin Ratio 1.3 Urine Color Yellow Urine Clarity Sl. Cloudy Urine pH 5.0 Ur Specific [place] 1.020 Urine Protein 100 H Urine Glucose (UA) Normal Urine Ketones 5 H Urine Occult Blood 250 H Urine Nitrite Negative Urine Bilirubin 6 H Urine Urobilinogen 1 H Ur Leukocyte Esterase 500 H Urine RBC 0 SEEN Urine WBC 10-25 SEEN Ur Squamous Epith Cells 10-25 SEEN Ur Transition Epith Cell 0-5 SEEN Urine Bacteria 2+ Hyaline Casts 0-5 SEEN Fine Granular Casts 0-5 SEEN Urine Mucus 0 SEEN Rhythm Strip Rhythm Strip: A-fib Rate: 109 Ectopy: None EKG Initial EKG: Attestation: I personally reviewed and interpreted this EKG as follows: Interpretation: Atrial Fibrillation Comments: Atrial fibrillation at a rate of 109 bpm Normal axis Normal intervals Normal ST segments with nonspecific T wave changes Compared to prior EKG on 07/09/2025?patient has better rate control Management Discussion w/another healthcare provider: Hospitalist Discharge Plan Dx/Rx/DC Orders Clinical Impression: Acute kidney injury, Atrial fibrillation, Leukocytosis, History of upper gastrointestinal bleeding Disposition Disposition: [facility] Discharge Date/Time: 07/12/25 23:07
[2025-07-13 06:02] LABS: Hematocrit 27.4 % (37-47); Hemoglobin 8.8 g/dL (12.0-15.0); Immature Granulocytes Count 0.150 X10^3/uL (0.0-0.0); Mean Corp Hgb Conc 32.1 g/dL (32-36); Mean Corpuscular Volume 96.1 fL (81-99); Mean Platelet Vol. 11.5 fl (6.2-12.0); NRBC Flagged by Analyzer 0 % (0-5); Platelet Count 246 K/mm3 (150-450); RBC Distribution Width CV 17.7 % (11.6-14.6); RBC Distribution Width SD 60.1 fl (35.1-43.9); Red Blood Count 2.85 M/mm3 (4.2-5.4); White Blood Count 14.5 K/mm3 (4.4-11.0)
[2025-07-13 06:39] LABS: AST(SGOT) 15 U/L (<=31); Alanine Aminotransfer ALT/SGPT 9 U/L (<=34); Albumin, Serum 3.2 g/dL (3.4-4.8); Alkaline Phosphatase 87 U/L (35-104); Anion Gap 12 (5-15); BUN 27 mg/dL (4-19); BUN/Creat Ratio 18.7 RATIO (10-20); Calcium,Total 8.6 mg/dL (7.6-11.0); Carbon Dioxide 23.5 mmol/L (21.0-32.0); Chloride 104 mmol/L (98-108); Estimated Creatinine Clearance 39.16 ml/min (50-250); Globulin 2.5 g/dL (2.2-4.2); Glucose 94 mg/dL (70-99); Potassium 3.6 mmol/L (3.3-5.1)
[2025-07-13] MEDS: Metoprolol(XL)Succ 50 MG Tablet PO (09:19)
[2025-07-13] MEDS: 0.9% Saline Lock 10 ML Syringe IV (10:17)
--- NOTE | 2025-07-13 17:09 | CASEMGMT ---
RADHA LOVE chart review: Patient was admitted 07/10-07/12/25 for upper GI bleed. See assessment from 07/12/25. Patient had declined therapy or HHC at discharge and discharge to home with support from daughters that live with her and follow-up plans in place. Patient returned to [facility] ED on 07/12/25 after having a large bout of diarrhea at home and becoming very weak. Patient was admitted for lightheadedness, dizziness, diarrhea, and TRUMAN. Patient worked with therapy and was able to ambulate 25 ft SBA and declines further therapy at discharge. RADHA LOVE in to discuss readmission and discharge planning. Patient states she filled her prescriptions but returned to [facility] ED before taking of her medications. Patient has not had chance to schedule follow-up appts. Patient declines needs or help at discharge. Patient declined HHC and outpatient therapy at discharge. Patient states she will not have a ride home if discharged after 1730 today. Patient states she will be able to arrange transportation for discharge tomorrow. RADHA LOVE update hospitalist regarding transport home. Per hospitalist awaiting lab to be drawn and cannot discharge patient prior. Hospitalist states will have lab drawn in morning and plan for discharge tomorrow. RADHA LOVE updated patient and nursing.
--- NOTE | 2025-07-13 17:57 | PN.HOSP_ITS ---
Reason for Visit Chief Complaint: Severe Diarrhea, debility, weakness. Subjective Subjective Patient was seen and examined today, she was readmitted yesterday shortly after she was discharged due to lightheadedness and acute kidney injury. Creatinine today is improved. Objective Data Objective Data Vital Signs: Vital Signs Temp Pulse Resp BP Pulse Ox O2 Del Method 98.6 F 92 18 92/59 L 95 Room Air 07/13/25 15:08 07/13/25 15:08 07/13/25 15:08 07/13/25 15:08 07/13/25 15:08 07/13/25 15:08 Oxygen Delivery Method Room Air Weight: 108.9 kg Body Mass Index (BMI) 39.9 Intake & Output: Intake and Output for Last 24 Hours 07/11/25 07/12/25 07/13/25 23:59 23:59 23:59 Intake Total 1250 / 1250 Output Total 0 / 0 300 / 300 Balance 0 / 0 950 / 950 Lab / Micro Data 07/13/25 05:04 07/13/25 05:04 Labs: Laboratory Results - last 24 hr 07/12/25 21:38: WBC 18.3 H, RBC 3.11 L, Hgb 9.8 L, Hct 30.0 L, MCV 96.5, MCH 31.5, MCHC 32.7, RDW Std Deviation 60.5 H, RDW Coeff of Espinoza 18.2 H, Plt Count 252, MPV 11.1, Immature Gran % (Auto) 1.500 H, Neut % (Auto) 77.6 H, Lymph % (Auto) 12.8 L, [place] % (Auto) 7.1, Eos % (Auto) 0.7, Baso % (Auto) 0.3, Absolute Neuts (auto) 14.2 H, Absolute Lymphs (auto) 2.34, Nucleated RBC % 0.3, Sodium 137, Potassium 4.1, Chloride 101, Carbon Dioxide 23.4, Anion Gap 12, BUN 29 H, C reatinine 1.71 H, Estim Creat Clear Calc 33.13 L, Est GFR (MDRD) Non-Af 30 L, BUN/Creatinine Ratio 16.9, Glucose 127 H, Calcium 9.2, Magnesium 2.1, Total Bilirubin 0.37, AST 20, ALT 13, Alkaline Phosphatase 101, Total Protein 6.5, Albumin 3.6, Globulin 2.8, Albumin/Globulin Ratio 1.3 07/12/25 22:05: Urine Color Yellow, Urine Clarity Sl. Cloudy, Urine pH 5.0, Ur Specific [place] 1.020, Urine Protein 100 H, Urine Glucose (UA) Normal, Urine Ketones 5 H, Urine Occult Blood 250 H, Urine Nitrite Negative, Urine Bilirubin 6 H, Urine Urobilinogen 1 H, Ur Leukocyte Esterase 500 H, Urine RBC 0 SEEN, Urine WBC 10-25 SEEN, Ur Squamous Epith Cells 10-25 SEEN, Ur Transition Epith Cell 0-5 SEEN, Urine Bacteria 2+, Hyaline Casts 0-5 SEEN, Fine Granular Casts 0-5 SEEN, Urine Mucus 0 SEEN 07/13/25 05:04: WBC 14.5 H, RBC 2.85 L, Hgb 8.8 L, Hct 27.4 L, MCV 96.1, MCH 30.9, MCHC 32.1, RDW Std Deviation 60.1 H, RDW Coeff of Espinoza 17.7 H, Plt Count 246, MPV 11.5, Immature Gran % (Auto) 1.000 H, Neut % (Auto) 68.7, Lymph % (Auto) 19.0, [place] % (Auto) 8.7, Eos % (Auto) 2.2, Baso % (Auto) 0.4, Absolute Neuts (auto) 9.9 H, Absolute Lymphs (auto) 2.75, Nucleated RBC % 0, Sodium 140, Potassium 3.6, Chloride 104, Carbon Dioxide 23.5, Anion Gap 12, BUN 27 H, C reatinine 1.43 H, Estim Creat Clear Calc 39.16 L, Est GFR (MDRD) Non-Af 37 L, BUN/Creatinine Ratio 18.7, Glucose 94, Calcium 8.6, Total Bilirubin 0.41, AST 15, ALT 9, Alkaline Phosphatase 87, Total Protein 5.6 L, Albumin 3.2 L, Globulin 2.5, Albumin/Globulin Ratio 1.3 Rhythm Strip Rhythm Strip: A-fib Rate: 109 Ectopy: None Physical Exam Narrative alert, oriented x3 and no apparent distress Constitutional Narrative: Patient has class III obesity General Appearance: cooperative, well kempt and well developed Orientation / Consciousness: awake, oriented to person, oriented to place and oriented to time HEENT normocephalic, head/scalp atraumatic and moist oral mucous membranes Eyes PERRL, EOMs intact bilaterally and conjunctivae normal Neck supple, no JVD, thyroid normal and no carotid bruits General: trachea midline Resp normal respiratory effort, no retractions, no use of accessory muscles and clear to auscultation bilaterally Auscultation: Negative for rales, rhonchi or wheezes Cardio S1 normal heart sound, S2 normal heart sound, no murmurs, no rub and no gallops Cardio Narrative: Heart rate and rhythm is irregular GI normal to inspection, nondistended, normoactive bowel sounds, soft to palpation, non-tender and non-distended Extremity no clubbing, cyanosis or edema Skin no rashes or lesions noted General Skin Exam: no breakdown Neuro oriented x3, CN's II-XII intact bilaterally, no focal motor deficits and no sensory deficits noted Sensorium / Orientation: awake and alert Speech: speech normal Psych affect normal Assessment & Plan Assessment/Plan (1) History of upper gastrointestinal bleeding: PLAN: Plan 1. Acute kidney injury-IV fluids will continue, BMP will be obtained tomorrow #2 generalized weakness-PT and OT will continue to see the patient #3 chronic [id number] is off anticoagulation due to recent upper GI bleed #4 recent acute blood loss anemia secondary to upper GI bleed from gastric ulcers-hemoglobin appears to be stable at this time Total clinical time spent by myself addressing the patient's medical issues, reviewing all of her data, and collaborating with patient's care team: 35 minutes Charges/Coding Visit Charges Inpatient E&M: 64886 Subs Hosp L2
[2025-07-14 04:55] VITALS: BP 116/58; PULSE 105; RESP 16; TEMP 36.9; O2SAT 93
[2025-07-14] MEDS: 0.9% Saline Lock 10 ML Syringe IV (04:58)
[2025-07-14 05:17] VITALS: BMI 42.7
[2025-07-14 05:54] LABS: Mucous, Urine 0 SEEN /hpf (<or=2+); Red Blood Cells-Urine 0 SEEN /hpf (0-5); Squamous Epithelial Cells - UA 0 SEEN /hpf (5-10)
[2025-07-14 06:01] LABS: Color, Urine Yellow (Yellow); Glucose, Dipstick Normal (Normal); Ketone-Dipstick Negative (Negative); Leukocyte Esterase-Dipstick 100 /ul (Negative); Nitrite-Dipstick Negative (Negative); Occult Blood-Urine Negative /ul (Negative); Protein-Dipstick 15 mg/dl (Negative); Specific Gravity, Urine 1.020 (1.002-1.030); Urine Bilirubin Dipstick Negative (Negative)
[2025-07-14 06:19] LABS: Anion Gap 9 (5-15); BUN 20 mg/dL (4-19); BUN/Creat Ratio 21.1 RATIO (10-20); Calcium,Total 8.8 mg/dL (7.6-11.0); Carbon Dioxide 25.1 mmol/L (21.0-32.0); Chloride 105 mmol/L (98-108); Estimated Creatinine Clearance 61.28 ml/min (50-250); Glucose 103 mg/dL (70-99); Potassium 3.8 mmol/L (3.3-5.1)
[2025-07-14 07:00] VITALS: PULSE 117
[2025-07-14 07:35] VITALS: O2SAT 93
[2025-07-14 09:45] VITALS: BP 149/119; PULSE 116; RESP 18; TEMP 37.1; O2SAT 94
[2025-07-14 09:48] VITALS: PULSE 116
[2025-07-14] MEDS: Metoprolol(XL)Succ 50 MG Tablet PO (09:48)
--- NOTE | 2025-07-14 10:36 | DCINST_ITS ---
Discharge Instructions DC O2, CPAP, BIPAP needs Home O2 Discharge instructions: No Dressing / Incision Discharge Activity: Return to Normal Activity Weight Bearing Status: Full weight bearing Follow Up Care Test Results: Test results from this visit will be discussed in further detail at your follow- up appointment, if applicable. Discharge Plan Admission Admit Date/Time: 07/12/25 22:39 Primary Reason for Your Visit: Acute kidney injury Attending Provider: Marciano Castellanos Primary Care Provider: Marciano Anaya Consulting Providers: Courtney Rader Instructions Additional Instructions / Restrictions: Increase your metoprolol to 2 tablets (100 mg total) daily starting 07/15/25 Discharge Orders/Prescriptions Prescriptions: New metoprolol succinate 50 mg Tablet Extended Release 24 Hr 100 mg PO DAILY Qty: 60 0RF Continued oxycodone-acetaminophen 10-325 mg tablet 1 tab PO Q8H PRN (Reason: pain) Patient Comments: TAKE 1 TABLET BY MOUTH THREE TIMES DAILY NEEDED levothyroxine 100 mcg tablet 100 mcg PO DAILY meclizine 12.5 mg tablet 12.5 mg PO DAILY methotrexate sodium 2.5 MG tablet 20 mg PO MO Patient Comments: Rheumatoid Arthritis - on Mondays albuterol sulfate [ProAir HFA] 1 PUFF inhaler 1 - 2 puff inhalation Q6H PRN PRN (Reason: Shortness Of Breath) Patient Comments: As needed for Shortness of Breath losartan 50 MG tablet 50 mg PO DAILY Qty: 30 0RF Patient Comments: blood pressure folic acid 1 MG tablet 1 mg PO DAILY@0800 Qty: 0 0RF prednisone 10 MG tablet 10 mg PO PRN PRN (Reason: arthritis flare up) Rx Instructions: for arthritis flare up venlafaxine 150 MG capsule,extended release 24hr 150 mg PO DAILY vitamins A,C,R-btte-alxvkg 1 EACH tablet 1 tab PO DAILY magnesium oxide 400 MG tablet 400 mg PO DAILY atorvastatin 40 mg tablet 40 mg PO DAILY nystatin 100,000 unit/gram Powder 1 applic topical BID Qty: 15 0RF Protocol: *Topical Application Instructions APPLICATION INSTRUCTIONS: axillary and abd folds pantoprazole [Protonix] 40 mg tablet,delayed release (DR/EC) 40 mg PO BID Qty: 60 0RF amlodipine 5 mg tablet 5 mg PO DAILY budesonide-formoterol [Symbicort] 80-4.5 mcg/actuation HFA aerosol inhaler 1 puff inhalation Q12H Held Eliquis 5 mg tablet 5 mg PO BID Hold Instructions: Resume on 07/19/25. Discontinued furosemide 40 mg tablet 40 mg PO DAILY metoprolol succinate 50 mg tablet extended release 24 hr 50 mg PO DAILY Referrals / Follow Up: Marciano Anaya DO [Primary Care Provider] - In 1 Week Disposition Disposition (needs filled in before D/C Order can be placed): Home, Self Care
--- NOTE | 2025-07-14 10:43 | DS.PCM_ITS ---
Providers Date of Admission: 07/12/25 Date of Discharge: 07/14/25 Primary Care Physician: Dr. Marciano Anaya DO Reason For Visit: LH/DIZZINESS, DIARRHEA, TRUMAN Diagnosis Discharge Diagnosis (1) History of upper gastrointestinal bleeding: Status: Acute Code(s): Z87.19 - Personal history of other diseases of the digestive system Plan 1. Acute kidney injury-IV fluids will continue, BMP will be obtained tomorrow #2 generalized weakness-PT and OT will continue to see the patient #3 chronic N-[id number] is off anticoagulation due to recent upper GI bleed #4 recent acute blood loss anemia secondary to upper GI bleed from gastric ulcers-hemoglobin appears to be stable at this time Total clinical time spent by myself addressing the patient's medical issues, reviewing all of her data, and collaborating with patient's care team: 35 minutes Medications at Discharge Home Medications albuterol sulfate 90 mcg/actuation aerosol inhaler (ProAir HFA) 1 - 2 puff inhalation Q6H PRN PRN Shortness Of Breath 03/15/15 methotrexate sodium 2.5 mg tablet 20 mg PO MO Rheumatoid arthritis 03/15/15 folic acid 1 mg tablet 1 mg PO DAILY@0800 supplement #0 TABLETS 03/29/15 losartan 50 mg tablet 50 mg PO DAILY #30 TABLETS 03/29/15 prednisone 10 mg tablet 10 mg PO PRN PRN arthritis flare up 07/07/19 venlafaxine 150 mg capsule,extended release 24 hr 150 mg PO DAILY depression/anxiety 07/07/19 vitamins A,C,Q-fywf-mxzcfp 2,148 mcg-113 mg-45 mg-17.4 mg tablet 1 tab PO DAILY EYE HEALTH 07/07/19 magnesium oxide 400 mg PO DAILY SUPPLEMENT 09/19/20 levothyroxine 100 mcg tablet 100 mcg PO DAILY throid 07/16/23 meclizine 12.5 mg tablet 12.5 mg PO DAILY 07/16/23 oxycodone-acetaminophen 10 mg-325 mg tablet 1 tab PO Q8H PRN pain 07/16/23 apixaban 5 mg tablet (Eliquis) 5 mg PO BID blood thinner 07/09/25 Held on 07/14/25. Instructions: Resume on 07/19/25. atorvastatin 40 mg tablet 40 mg PO DAILY cholesterol 07/09/25 amlodipine 5 mg tablet 5 mg PO DAILY blood pressure 07/12/25 budesonide-formoterol HFA 80 mcg-4.5 mcg/actuation aerosol inhaler (Symbicort) 1 puff inhalation Q12H 07/12/25 nystatin 100,000 unit/gram topical powder 1 applic topical BID #15 grams 07/12/25 pantoprazole 40 mg tablet,delayed release (Protonix) 40 mg PO BID GI #60 tabs 07/12/25 metoprolol succinate 50 mg tablet,extended release 24 hr 100 mg (2 x 50 mg) PO DAILY #60 tabs 07/14/25 Hospital Course Operations None Procedures None Summary of Care Provided Minutes Spent on Discharge: 30 Hospital Course: 79-year-old white female was seen in the emergency room at [facility] several hours after being discharged from the hospital, she came back for evaluation of lightheadedness and generalized weakness after she had a bowel movement at home. Labs obtained in the emergency room, showed elevated creatinine. Patient was admitted to PCU for acute kidney injury and seen by PT and OT due to her complaints of generalized weakness. Patient did well with PT and OT, with IV fluid administration her renal function normalized. On 07/14/2025, patient was seen and examined: On examination she appeared in good health and spirits, she does not appear to be in any distress. Vital signs as documented. Skin warm and dry and without overt rashes. Neck without JVD, thyroid appears normal, trachea is midline, neck is supple. Lungs clear, normal air movement was noted. Heart exam notable for irregular rhythm, normal sounds and absence of murmurs, rubs or gallops. Abdomen unremarkable and without evidence of organomegaly, masses, or abdominal aortic enlargement, bowel sounds are present in all 4 quadrants, no abdominal tenderness was noted. Extremities nonedematous, no cyanosis was noted, no clubbing was noted. Neuro: Cranial nerves II through XII are grossly intact, no focal motor deficits were noted, sensation to light touch and pinprick is intact, motor exam 5/5 throughout. Psych: Patient is alert and oriented x3, she does not appear anxious or depressed, she does not appear agitated. Patient was discharged home in stable condition on 07/14/2025 Weight / BMI Weight Weight: 116.6 kg Body Mass Index (BMI) 42.7 ABG / Lab / Microbiology Data 07/13/25 05:04 07/14/25 04:56 Laboratory: Laboratory Results - last 24 hr 07/13/25 05:46: Urine Color Yellow, Urine Clarity Clear, Urine pH 5.0, Ur Specific [place] 1.020, Urine Protein 15 H, Urine Glucose (UA) Normal, Urine Ketones Negative, Urine Occult Blood Negative, Urine Nitrite Negative, Urine Bilirubin Negative, Urine Urobilinogen Normal, Ur Leukocyte Esterase 100 H, Urine RBC 0 SEEN, Urine WBC 0-5 SEEN, Ur Squamous Epith Cells 0 SEEN, Urine Bacteria 0 SEEN, Urine Mucus 0 SEEN 07/14/25 04:56: Sodium 139, Potassium 3.8, Chloride 105, Carbon Dioxide 25.1, Anion Gap 9, BUN 20 H, Creatinine 0.95, Estim Creat Clear Calc 61.28, Est GFR (MDRD) Non-Af 61, BUN/Creatinine Ratio 21.1 H, Glucose 103 H, Calcium 8.8 Microbiology: Microbiology 07/12/25 22:05 Urine, Clean Catch Urine Culture - Final Mixed Gram Pos & Gram Neg Org D/C Instructions Weight Bearing Status: Full weight bearing DC O2, CPAP, BIPAP Needs Home O2 Discharge instructions: No Meaningful Use Info Meaningful Use Meaningful Use Diagnoses (Choose all that apply): None applicable Discharge Plan Admission Admit Date/Time: 07/12/25 22:39 Primary Reason for Your Visit: Acute kidney injury Attending Provider: Marciano Castellanos Primary Care Provider: Marciano Anaya Consulting Providers: Courtney Rader Instructions Additional Instructions / Restrictions: Increase your metoprolol to 2 tablets (100 mg total) daily starting 07/15/25 Discharge Orders/Prescriptions Prescriptions: New metoprolol succinate 50 mg Tablet Extended Release 24 Hr 100 mg PO DAILY Qty: 60 0RF Continued oxycodone-acetaminophen 10-325 mg tablet 1 tab PO Q8H PRN (Reason: pain) Patient Comments: TAKE 1 TABLET BY MOUTH THREE TIMES DAILY NEEDED levothyroxine 100 mcg tablet 100 mcg PO DAILY meclizine 12.5 mg tablet 12.5 mg PO DAILY methotrexate sodium 2.5 MG tablet 20 mg PO MO Patient Comments: Rheumatoid Arthritis - on Mondays albuterol sulfate [ProAir HFA] 1 PUFF inhaler 1 - 2 puff inhalation Q6H PRN PRN (Reason: Shortness Of Breath) Patient Comments: As needed for Shortness of Breath losartan 50 MG tablet 50 mg PO DAILY Qty: 30 0RF Patient Comments: blood pressure folic acid 1 MG tablet 1 mg PO DAILY@0800 Qty: 0 0RF prednisone 10 MG tablet 10 mg PO PRN PRN (Reason: arthritis flare up) Rx Instructions: for arthritis flare up venlafaxine 150 MG capsule,extended release 24hr 150 mg PO DAILY vitamins A,C,R-licf-wlgdoe 1 EACH tablet 1 tab PO DAILY magnesium oxide 400 MG tablet 400 mg PO DAILY atorvastatin 40 mg tablet 40 mg PO DAILY nystatin 100,000 unit/gram Powder 1 applic topical BID Qty: 15 0RF Protocol: *Topical Application Instructions APPLICATION INSTRUCTIONS: axillary and abd folds pantoprazole [Protonix] 40 mg tablet,delayed release (DR/EC) 40 mg PO BID Qty: 60 0RF amlodipine 5 mg tablet 5 mg PO DAILY budesonide-formoterol [Symbicort] 80-4.5 mcg/actuation HFA aerosol inhaler 1 puff inhalation Q12H Held Eliquis 5 mg tablet 5 mg PO BID Hold Instructions: Resume on 07/19/25. Discontinued furosemide 40 mg tablet 40 mg PO DAILY metoprolol succinate 50 mg tablet extended release 24 hr 50 mg PO DAILY Referrals / Follow Up: Marciano Anaya DO [Primary Care Provider] - In 1 Week (Left message with office, will call back to schedule appointment. ) Disposition Disposition (needs filled in before D/C Order can be placed): Home, Self Care Charges/Coding Visit Charges Inpatient E&M: 27145 Disch Hosp
--- NOTE | 2025-07-14 11:15 | CASEMGMT ---
Patient has order for discharge. RN CM in to discuss needs at discharge, grandson at bedside. Patient denies need for HHC or therapy at discharge. Patient had no further questions or concerns.
--- NOTE | 2025-07-14 11:36 | NURSING ---
pt given discharge instructions including medications, follow up appointments and all other discharge instructions. telemetry removed and palced at nurses station. IV removed with catheter intact, clean dry dressing applied, pt tolerated well. assisted pt to get dressed. pt denies any further questions or needs at this time. pt being wheeled out by aide to [facility] waiting vehicle.
== END 2025-07-14 11:39 | disposition home or self-care (01) | DRG 682 ==
LOC: ED 21:28 → PCU 23:06
PROVIDERS: Admitting Provider Family Medicine; Emergency Provider Emergency Medicine; PCP Family Medicine; Visit Provider Internal Medicine
DX: N17.9 Acute kidney failure, unspecified (principal); K25.4 Chronic or unspecified gastric ulcer with hemorrhage; Z68.41 Body mass index [BMI] 40.0-44.9, adult; I13.0 Hypertensive heart and chronic kidney disease with heart failure and stage 1 through stage 4 chronic kidney disease, or unspecified chronic kidney disease; I48.20 Chronic atrial fibrillation, unspecified; I50.32 Chronic diastolic (congestive) heart failure; Z66 Do not resuscitate; R62.7 Adult failure to thrive; E11.22 Type 2 diabetes mellitus with diabetic chronic kidney disease; J44.9 Chronic obstructive pulmonary disease, unspecified; N18.30 Chronic kidney disease, stage 3 unspecified; M06.9 Rheumatoid arthritis, unspecified; F32.A Depression, unspecified; E03.9 Hypothyroidism, unspecified; E78.5 Hyperlipidemia, unspecified; Z79.4 Long term (current) use of insulin; F41.9 Anxiety disorder, unspecified; E66.813 Obesity, class 3; Z79.01 Long term (current) use of anticoagulants; Z79.51 Long term (current) use of inhaled steroids; Z79.84 Long term (current) use of oral hypoglycemic drugs; Z79.890 Hormone replacement therapy; Z79.899 Other long term (current) drug therapy; Z87.891 Personal history of nicotine dependence
CPT/HCPCS: 36415; 80048; 80053; 81001; 83735; 85025; 87086; 87088; 93005; 94668; 97162; 97166; 97802; 99252; 99285; A4216; G0463

== ENCOUNTER 2025-08-05 16:13 | Inpatient (IN) | payer MEDICARE, SELFPAY ==
[2025-08-05] VITALS (13 sets, daily range): BP systolic 101–150; BP diastolic 65–93; PULSE 107–153; RESP 18–23; TEMP 37; O2SAT 93–100; BMI 44.0
--- NOTE | 2025-08-05 01:20 | RAD_ITS ---
PROCEDURE: CHEST 1 VIEW (PORTABLE) 08/06/2025 REASON FOR EXAM: AE CHF TECHNIQUE: Frontal view of the chest. COMPARISON: 07/09/2025. FINDINGS: Mild bilateral pleural effusions. Passive atelectatic airspace disease of the lower lobes. Mild central pulmonary venous congestion, slightly increased. Enlarged cardiac silhouette. Normal mediastinum and evelyn. Normal visualized pulmonary arteries. Atheromatous plaques of the visualized aortic arch and descending thoracic aorta. Diffuse spondylosis of the visualized thoracic spine. Normal visualized ribs, clavicles. Degenerative joint disease. Unremarkable metallic prosthesis of the shoulders. There is no demonstrated abnormality of the visualized soft tissue structures of the upper abdomen. RAD/Chest 1 View (Portable) IMPRESSION: Mild bilateral pleural effusions. Passive atelectatic airspace disease of the lower lobes. Mild central pulmonary venous congestion, slightly increased. Enlarged cardiac silhouette. Reading [facility]
--- NOTE | 2025-08-05 16:37 | ED.VIS.DYS ---
HPI History of Present Illness Chief Complaint: Shortness of Breath Narrative Narrative: Patient is a 79-year-old female presenting to the emergency department for lower extremity edema and shortness of breath. Patient has a past medical history of A-fib on 100 mg of metoprolol daily, obesity, hypertension, acute blood loss anemia, TRUMAN. She was just recently admitted 07/09 to 07/13 and then returned again on 07/13 discharged on 07/14 for GI bleed, a fib and TRUMAN. Last ECHO was in 2019 and showed an EF of 65%. Patient states that over the past few weeks her shortness of breath and lower extremity edema have worsened significantly. States that she was restarted back on her Eliquis and has been compliant with it. She is also been compliant with her metoprolol. Daughter at bedside also notes that she noticed the patient's urine has been dark and has a foul smell to it. She is concerned about a possible UTI. [facility] Medical History History of upper gastrointestinal bleeding TRUMAN (acute kidney injury) Fatigue SCHULTZ (dyspnea on exertion) Leukocytosis Morbid obesity with BMI of 40.0-44.9, adult Acute exacerbation of chronic heart failure Atrial fibrillation with RVR Adverse drug reaction Upper GI bleed Melanotic stools ABLA (acute blood loss anemia) Atrial fibrillation Squamous cell skin cancer Skin lesion of hand Acute kidney injury Acute respiratory failure with hypoxia Lactic acidosis Vision disturbance Chronic pain syndrome Acute blood loss anemia Anxiety and depression Asthma HLD (hyperlipidemia) Morbid obesity GI bleed Hyperkalemia Hypertension History of rheumatoid arthritis Home Medications ?Medication ?Instructions ?Recorded ?Last Taken ?Type albuterol sulfate 90 mcg/actuation 1 - 2 puff inhalation Q6H PRN PRN 03/15/15 10/09/16 History aerosol inhaler (ProAir HFA) Shortness Of Breath methotrexate sodium 2.5 mg tablet 20 mg PO MO Rheumatoid arthritis 03/15/15 09/18/20 History folic acid 1 mg tablet 1 mg PO DAILY@0800 supplement #0 03/29/15 09/19/20 11:00 Rx TABLETS prednisone 10 mg tablet 10 mg PO PRN PRN arthritis flare up 07/07/19 3 Days Ago History ~09/16/20 venlafaxine 150 mg 150 mg PO DAILY depression/anxiety 07/07/19 09/19/20 11:00 History capsule,extended release 24 hr vitamins A,C,C-xnbr-wamabe 2,148 1 tab PO DAILY EYE HEALTH 07/07/19 09/19/20 11:00 History mcg-113 mg-45 mg-17.4 mg tablet magnesium oxide 400 mg PO DAILY SUPPLEMENT 09/19/20 09/19/20 11:00 History levothyroxine 100 mcg tablet 100 mcg PO DAILY throid 07/16/23 Unknown History meclizine 12.5 mg tablet 12.5 mg PO DAILY 07/16/23 Unknown History oxycodone-acetaminophen 10 mg-325 1 tab PO Q8H PRN pain 07/16/23 Unknown History mg tablet apixaban 5 mg tablet (Eliquis) 5 mg PO BID blood thinner 07/09/25 Unknown History atorvastatin 40 mg tablet 40 mg PO DAILY cholesterol 07/09/25 Unknown History amlodipine 5 mg tablet 5 mg PO DAILY blood pressure 07/12/25 Unknown History budesonide-formoterol HFA 80 1 puff inhalation Q12H 07/12/25 Unknown History mcg-4.5 mcg/actuation aerosol inhaler (Symbicort) nystatin 100,000 unit/gram topical 1 applic topical BID #15 grams 07/12/25 Unknown Rx powder pantoprazole 40 mg tablet,delayed 40 mg PO BID GI #60 tabs 07/12/25 Unknown Rx release (Protonix) metoprolol succinate 50 mg 100 mg (2 x 50 mg) PO DAILY #60 07/14/25 Unknown Rx tablet,extended release 24 hr tabs amitriptyline 10 mg tablet 10 mg PO QHS 08/05/25 Unknown History Allergy/AdvReac Type Severity Reaction Status Date / Time adhesive Allergy Other Verified 08/05/25 16:17 amoxicillin trihydrate (From Allergy Unknown Verified 08/05/25 16:17 Augmentin) latex Allergy Unknown Verified 08/05/25 16:17 Penicillins Allergy Unknown Verified 08/05/25 16:17 potassium clavulanate (From Allergy Unknown Verified 08/05/25 16:17 Augmentin) tetracycline Allergy Unknown Verified 08/05/25 16:17 Family History Sister Hypertension Brother Heart disease Mother Diabetes Heart disease Hypertension CVA (cerebral vascular accident) Skin cancer Father Prostate cancer Surgical History History of hand surgery History of reverse total replacement of left shoulder joint History of tonsillectomy History of appendectomy History of tubal ligation History of knee replacement History of hip replacement History of back surgery Status post reverse total replacement of right shoulder Social History household members: none Smoking Status: Former smoker alcohol intake: former substance use type: does not use ROS ROS ED ROS Narrative See HPI EXAM Physical Exam Narrative Exam Narrative: Vital signs: Reviewed General: Alert and oriented x 3. No acute distress HEENT: Head is normocephalic and atraumatic, sinuses nontender, pupils equal round and reactive. Nares are patent. Oropharynx and throat exams normal. Neck: Supple without lymphadenopathy nontender Cardiovascular: Irregularly irregular rate and rhythm, no murmurs. No rubs or gallops. Normal S1 and S2 Respiratory: Decreased breath sounds throughout due to body habitus. No wheezes, rales or rhonchi heard. Abdominal: Soft and mildly tender to palpation in suprapubic region. Normal bowel sounds. No guarding or rebound. Nonsurgical abdomen Extremities: Trace bilateral lower extremity edema bilaterally. No tenderness. No bruising. Normal range of motion. Normal sensation. Neurological: Cranial nerves II through XII are grossly intact. Normal strength and sensation. Normal cerebellar function The rest of the physical exam is unremarkable Const Vital Signs: 08/05/25 16:15 08/05/25 16:17 08/05/25 16:17 Temperature 98.6 F Temperature Source Oral Pulse Rate 153 H Respiratory Rate 18 Respiratory Effort Respiratory Depth Respiratory Pattern Blood Pressure 141/65 H Blood Pressure Mean 90 Pulse Ox 93 100 100 Oxygen Delivery Method Room Air Room Air Room Air 08/05/25 16:17 08/05/25 16:47 08/05/25 16:47 Temperature 98.6 F Temperature Source Oral Pulse Rate 133 H Respiratory Rate 23 H Respiratory Effort Normal Short of Breath Short of Breath Respiratory Depth Shallow Respiratory Pattern Normal Normal Blood Pressure 137/81 H Blood Pressure Mean 99 Pulse Ox 96 Oxygen Delivery Method Room Air Room Air 08/05/25 17:17 08/05/25 18:00 08/05/25 19:00 Temperature 98.6 F 98.6 F 98.6 F Temperature Source Oral Oral Oral Pulse Rate 137 H 134 H 153 H Respiratory Rate 22 H 18 22 H Respiratory Effort Respiratory Depth Respiratory Pattern Blood Pressure 141/93 H 150/85 H 145/87 H Blood Pressure Mean 109 106 106 Pulse Ox 99 95 94 Oxygen Delivery Method Room Air Room Air Room Air 08/05/25 20:00 08/05/25 21:00 08/05/25 21:25 Temperature 98.6 F 98.6 F Temperature Source Oral Oral Pulse Rate 114 H 107 H 112 H Respiratory Rate 20 H 19 H Respiratory Effort Respiratory Depth Respiratory Pattern Blood Pressure 129/86 H 117/88 H 101/73 Blood Pressure Mean 100 97 82 Pulse Ox 98 94 Oxygen Delivery Method Room Air Room Air 08/05/25 22:00 08/05/25 22:21 08/05/25 23:00 Temperature 98.6 F 98.6 F 98.6 F Temperature Source Oral Oral Pulse Rate 112 H 112 H 114 H Respiratory Rate 20 H 20 H 20 H Respiratory Effort Respiratory Depth Respiratory Pattern Blood Pressure 125/70 H 125/70 H 128/92 H Blood Pressure Mean 88 88 104 Pulse Ox 94 94 99 Oxygen Delivery Method Room Air Room Air MDM MDM MDM Narrative Medical decision making narrative: Patient is a 79-year-old female presenting to emergency department for shortness of breath and lower extremity edema. Patient was seen and examined. She appears to be in A-fib with RVR on the monitor at a rate between 130 and 150. Stable BP. Saturating 93% on room air. Afebrile. Differential includes but is not limited to: CHF, PE, ACS, UTI CBC with no leukocytosis and chronic anemia of 9.5. CMP with no significant abnormalities. Trending troponins from 14, 13, 20. Likely secondary to her A-fib. BNP elevated looks to be around her baseline at 2339. Urinalysis with leukocyte esterase, WBC, bacteria, evidence of urinary tract infection. Allergies to penicillins. Given cipro for coverage of UTI. CTA of the chest was ordered to rule out pulmonary embolism given her recent hospitalization and A-fib with RVR. CT chest shows no evidence of PE. There is moderate right and small left pleural effusions with associated compressive atelectasis. CT of the abdomen pelvis shows no acute abnormalities. Patient given 3 doses Q5 of Lopressor. Rate was more controlled in the 90s to 100s. However on ambulation test the patient's HR jumped up to 120s again. 40 mg IV lasix given, suspect CHF causing the worsening a fib with RVR. Discussed admission with the patient and daughter at bedside they were agreeable. Patient admitted to Dr. Gustafson for further management of a fib with RVR, fluid overload and UTI. Clinical impression A fib with RVR pleural effusions lower extremity edema UTI History & Record Review Discussion w/independent historian: Patient and Family Additional record(s) reviewed:: Prior inpatient record, Prior ED visit and Prior labs Lab Data Attestation: I reviewed the patient's lab results. Labs: Laboratory Results - last 24 hr 08/05/25 08/05/25 08/05/25 16:32 19:13 19:31 WBC 6.6 RBC 3.16 L Hgb 9.5 L Hct 30.9 L MCV 97.8 MCH 30.1 MCHC 30.7 L RDW Std Deviation 60.8 H RDW Coeff of Espinoza 17.3 H Plt Count 191 MPV 11.3 Immature Gran % (Auto) 0.500 Neut % (Auto) 66.5 Lymph % (Auto) 23.5 [place] % (Auto) 5.3 Eos % (Auto) 3.6 Baso % (Auto) 0.6 Absolute Neuts (auto) 4.4 Absolute Lymphs (auto) 1.55 Nucleated RBC % 0 Sodium 140 Potassium 3.6 Chloride 105 Carbon Dioxide 22.8 Anion Gap 12 BUN 11 Creatinine 0.80 Estim Creat Clear Calc 73.99 Est GFR (MDRD) Non-Af 75 BUN/Creatinine Ratio 13.8 Glucose 111 H Calcium 8.8 Magnesium Total Bilirubin 0.50 Direct Bilirubin 0.29 AST 21 ALT 16 Alkaline Phosphatase 108 H Troponin T High Sens 14 D Troponin T Hi Sens 2 Hr 13 Troponin T Hi Sens 4Hr NT pro BNP II 2339 H Total Protein 6.1 Albumin 3.5 Globulin 2.6 Urine Color Yellow Urine Clarity Cloudy Urine pH 7.0 Ur Specific [place] 1.010 Urine Protein 30 H Urine Glucose (UA) Normal Urine Ketones Negative Urine Occult Blood 50 H Urine Nitrite Negative Urine Bilirubin Negative Urine Urobilinogen Normal Ur Leukocyte Esterase 500 H Urine RBC 5-10 SEEN Urine WBC 25-50 SEEN Ur Squamous Epith Cells 5-10 SEEN Urine Bacteria 1+ Urine Mucus 0 SEEN 08/05/25 20:22 WBC RBC Hgb Hct MCV MCH MCHC RDW Std Deviation RDW Coeff of Espinoza Plt Count MPV Immature Gran % (Auto) Neut % (Auto) Lymph % (Auto) [place] % (Auto) Eos % (Auto) Baso % (Auto) Absolute Neuts (auto) Absolute Lymphs (auto) Nucleated RBC % Sodium Potassium Chloride Carbon Dioxide Anion Gap BUN Creatinine Estim Creat Clear Calc Est GFR (MDRD) Non-Af BUN/Creatinine Ratio Glucose Calcium Magnesium 1.9 Total Bilirubin Direct Bilirubin AST ALT Alkaline Phosphatase Troponin T High Sens Troponin T Hi Sens 2 Hr Troponin T Hi Sens 4Hr 20 H NT pro BNP II Total Protein Albumin Globulin Urine Color Urine Clarity Urine pH Ur Specific [place] Urine Protein Urine Glucose (UA) Urine Ketones Urine Occult Blood Urine Nitrite Urine Bilirubin Urine Urobilinogen Ur Leukocyte Esterase Urine RBC Urine WBC Ur Squamous Epith Cells Urine Bacteria Urine Mucus Radiography Diagnostic Testing: Clinical Impression(s) from Imaging Studies Abdomen/Pelvis CT 08/05/25 17:17 IMPRESSION: No acute abnormality. See above comments. Reading Location[facility] Chest CTA 08/05/25 19:00 IMPRESSION: No evidence for pulmonary embolism. Moderate right and small left pleural effusions with associated compressive atelectasis. Reading Location: BIB Discharge Plan Disposition Disposition: Acute Care Hospital [facility] Discharge Date/Time: 08/06/25 00:09
[2025-08-05 17:03] LABS: Hematocrit 30.9 % (37-47); Hemoglobin 9.5 g/dL (12.0-15.0); Immature Granulocytes Count 0.030 X10^3/uL (0.0-0.0); Mean Corp Hgb Conc 30.7 g/dL (32-36); Mean Corpuscular Volume 97.8 fL (81-99); Mean Platelet Vol. 11.3 fl (6.2-12.0); NRBC Flagged by Analyzer 0 % (0-5); Platelet Count 191 K/mm3 (150-450); RBC Distribution Width CV 17.3 % (11.6-14.6); RBC Distribution Width SD 60.8 fl (35.1-43.9); Red Blood Count 3.16 M/mm3 (4.2-5.4); White Blood Count 6.6 K/mm3 (4.4-11.0)
--- OUTSIDE RECORDS SUMMARY | 2025-08-05 17:04 | XMS RPT_ITS | CCD ---
Author Organization [facility] Care Team Providers Care Global Supply Chain Director Name Role Phone Dr. Marciano Anaya Primary Care Provider [phone] Dr. Marciano Anaya Referring Provider Dr. Remington Weaver Attending Provider Dr. Feliberto Washington Attending Provider [phone] Marciano Anaya Primary Care Provider [phone] Dr. Feliberto Washington Attending Provider [phone] Marciano Anaya DO Primary Care Provider Héctor FRANCIS, Dr. Tariq Attending Provider [phone] Héctor FRANCIS, Dr. Tariq Referring Provider [phone] Dr. Amina Palomo MD Attending Provider Dr. Amina Palomo MD Referring Provider Dr. Marciano Anaya DO Primary Care Provider Dr. Marciano Anaya DO Attending Provider [phone] Dr. Marciano Anaya DO Referring Provider [phone] Héctor FRANCIS, Dr. Tariq Primary Care Provider Dr. Amina Palomo MD Attending Provider Stacia WAGNER, Dr. Huynh Referring Provider Héctor FRANCIS, Dr. Tariq Primary Care Provider Héctor FRANCIS, Dr. Tariq Attending Provider [phone] Dr. Marciano Anaya DO Referring Provider [phone] Dr. Arlin Guaman MD Emergency Provider Unavailab le Johnson DO, Dr. Crabtree Admit Provider Unavail able de Salo DO, Dr. Crabtree Attending Provider Unav ailable de Salo DO, Dr. Crabtree Other Provider Unavail able Washington WAGNER, Dr. Duncan Other Provider Xena DO, Dr. Posadas Other Provider David COMMUNITY PROGRAM ASSISTANT-C, Anna Other Provider Jeremy COMMUNITY PROGRAM ASSISTANT-C, Vicki Other Provider Brianda Benton Other Provider Emanuel FRANCIS, Dr. Tariq Attending Provider Fritz DO, Dr. Stapleton Other Provider [phone] Johnson DO, Dr. Crabtree Attending Provider Unav ailable Friend DO, Dr. Posadas Attending Provider Emanuel FRANCIS, Dr. Tariq Other Provider Jasper FRANCIS, Dr. Moreno Emergency Provider Prasanth WAGNER, Dr. Courtney Swan Admit Provider Prasanth WAGNER, Dr. Courtney Swan Attending Provider Prasanth WAGNER, Dr. Courtney Swan Other Provider Héctor, Marciano Primary Care Unavailable Héctor, Marciano Referring Unavailable Héctor, Marciano Attending Unavailable Héctor, Marciano Primary Care Unavailable Vellanki, Amina Attending Unavailable Vellanki, Amina Referring Unavailable Héctor, Marciano Primary Care Unavailable Vellanki, Amina Attending Unavailable Vellanki, Amina Referring Unavailable Héctor, Marciano Primary Care Unavailable Vellanki, Amina Attending Unavailable Vellanki, Amina Referring Unavailable Héctor, Marciano Primary Care Unavailable de SaloBro wisdom Admitting Unavailable Heberky, Marciano Attending Unavailable Dakota Delarosa Consulting Unavailable Cuauhtemoc Mccallum Consulting Unavailable Anna Hernandez Consulting Unavailable Vicki Luna Consulting Unavailable Brianda Bergeron Consulting Unavailable Bro Johnson Consulting Unavailable Pieter Hu Consulting Unavailable Héctor, Marciano Primary Care Unavailable Courtney Rader Consulting Unavailable Courtney Rader Admitting Unavailable Tereletsky, Marciano Attending Unavailable Héctor, Marciano Primary Care Unavailable Vellanki, Amina Attending Unavailable Vellanki, Amina Referring Unavailable Héctor, Marciano Primary Care Unavailable Vellanki, Amina Attending Unavailable Vellanki, Amina Referring Unavailable Héctor, Marciano Primary Care Unavailable Héctor, Marciano Referring Unavailable Héctor, Marciano Attending Unavailable Héctor, Marciano Primary Care Unavailable White, Courtney L Admitting Unavailable White, Courtney L Attending Unavailable White, Courtney L Consulting Unavailable Tereletsky, Marciano Attending Unavailable Tereletsky, Marciano Consulting Unavailable Héctor, Marciano Primary Care Unavailable Vellanki, Amina Attending Unavailable Vellanki, Amina Referring Unavailable Héctor, Marciano Primary Care Unavailable Héctor, Marciano Referring Unavailable Héctor, Marciano Attending Unavailable Héctor, Marciano Primary Care Unavailable Héctor, Marciano Attending Unavailable Héctor, Marciano Primary Care Unavailable Bro Johnson Attending Unavailable Bro Johnson Consulting Unavailable Bro Johnson Admitting Unavailable Bro Johnson Referring Unavailable Cuauhtemoc Mccallum Attending Unavailable Dakota Delarosa Consulting Unavailable Cuauhtemoc Mccallum Consulting Unavailable Anna Hernandez Consulting Unavailable Vicki Luna Consulting Unavailable Brianda Bergeron Consulting Unavailable Pieter Hu Consulting Unavailable Emanuel, Marciano Consulting Unavailable White, Courtney L Attending Unavailable Tereletsky, Marciano Attending Unavailable Héctor, Marciano Primary Care Unavailable Vellanki, Amina Attending Unavailable Vellanki, Amnia Referring Unavailable Allergies Allergy Classification Reported Allergen(s) Allergy Type Date of Onset Reaction(s) Facility (20 sources) Adhesive agent; Translations: [adhesive] Allergy to substance 1 Other [facility] (20 sources) Amoxicillin; Translations: [amoxicillin trihydrate] Drug Allergy 1 Unknown [facility] (20 sources) Latex Allergy to substance 1 Unknown [facility] (20 sources) Penicillins; Translations: [Penicillins] Allergy to substance 1 Unknown [facility] (20 sources) Tetracycline Drug Allergy 1 Unknown [facility] (20 sources) potassium clavulanate; Translations: [potassium clavulanate] Allergy to substance 1 Unknown [facility] (1 source) Latex Drug allergy (disorder) 5 [facility] Repository (1 source) Tetracycline Drug Allergy [facility] Repository Medications Current Medications Medication Drug Class(es) Dates Sig (Normalized) Sig (Original) acetaminophen 325 mg / oxyCODONE hydrochloride 10 mg oral tablet (20 sources) Opioid Agonist Start: 07-16-2023 Oxycodone-Acetamin ophen 10-325 mg tablet Active 1 {tbl} PO Q8H as needed for pain 0 July 16, 2023 12:00am Start: 07-16-2023 Oxycodone-Acet aminophen 10-325 mg tablet Active {tbl} PO 0 [...] 6 HOURS NEEDED March 15, 2015 12:00am Albuterol Sulfate (Proair Hfa) 1 PUFF inhaler (5 sources) Start: 03-15-2015 Albuterol Sulfate (Proair Hfa) 1 PUFF inhaler Active 1 - 2 NMA INHALATION EVERY 6 HOURS NEEDED as needed for Shortness Of Breath March 15, 2015 12:00am amLODIPine 5 mg oral tablet (7 sources) Dihydropyridine Calcium Channel Rivera Start: 07-09-2025 End: 07-12-2025 take 1 tablet by mouth once daily Amlodipine 5 mg tablet Active 5 mg PO DAILY July 12, 2025 12:00am blood pressure apixaban 5 mg oral tablet (5 sources) Factor Xa Inhibitor Start: 07-09-2025 take 1 tablet by mouth twice daily Apixaban (Eliquis) 5 mg tablet Active 5 mg PO TWICE A DAY July 09, 2025 12:00am blood thinner On Hold: Resume on 07/19/25. ascorbic acid 113 mg / beta carotene 7160 mg / cuprous oxide 0.4 mg / dl-alpha tocopheryl acetate 100 unt / zinc oxide 17.4 mg oral tablet (20 sources) Vitamin C Start: 07-07-2019 take 1 tablet by mouth once daily Vitamins A,C,T-Sbdi-Wquoi r 1 EACH tablet Active 1 {tbl} PO DAILY July 07, 2019 12:00am EYE HEALTH Start: 07-07-2019 take 1 tablet by german th once daily Vitamins A,C,A-Eoig-Vngeay Active 1 TABLET PO DAILY July 07, 2019 12:00am atorvastatin 40 mg oral tablet (20 sources) HMG-CoA Reductase Inhibitor Start: 07-09-2025 take 1 tablet by mouth once daily Atorvastatin 40 mg tablet Active 40 mg PO DAILY July 09, 2025 12:00am cholesterol Start: 09-19-2020 take 1 tablet by german th once daily Atorvastatin 20 MG tablet Active 20 mg PO DAILY September 19, 2020 1:00am CHOLESTEROL Budesonide-Formoterol (2 sources) Corticosteroid, beta2-Adrenergic Agonist Start: 07-12-2025 Budesonide-Formoterol (Symbicort) 80-4.5 mcg/actuation HFA aerosol inhaler Active 1 NMA INHALATION Q12H July 12, 2025 12:00am folic acid 1 mg oral tablet (20 sources) Start: 03-29-2015 take 1 tablet by mouth once daily Folic Acid 1 MG tablet Active 1 mg PO DAILY@0800 0 0 March 29, 2015 12:00am supplement levothyroxine sodium 0.1 mg oral tablet (20 sources) l-Thyroxine Start: 07-16-2023 take 1 tablet by mouth once daily Levothyroxine 100 mcg tablet Active 100 ug PO DAILY July 16, 2023 12:00am throid Start: 07-16-2023 Levothyroxine 100 mcg tablet Active ug PO July 16, 2023 12:00am Start: 07-16-2023 Levothyroxine Active MCG PO July 16, 2023 12:00am Start: 09-19-2020 End: 07-16-2023 take 1 tablet by mouth once daily Levothyroxine 50 MCG tablet Discontinued 50 ug PO DAILY September 19, 2020 1:00am July 16, 2023 2:39pm THYROID losartan potassium 50 mg oral tablet (20 sources) Angiotensin 2 Receptor Rivera Start: 03-29-2015 take 1 tablet by mouth once daily Losartan 50 MG tablet Active 50 mg PO DAILY 30 March 29, 2015 12:00am magnesium oxide 400 mg oral tablet (20 sources) Start: 09-19-2020 take 1 tablet by mouth once daily Magnesium Oxide 400 MG tablet Active 400 mg PO DAILY September 19, 2020 1:00am SUPPLEMENT meclizine hydrochloride 12.5 mg oral tablet (16 sources) Antiemetic Start: 07-16-2023 take 1 tablet by mouth once daily Meclizine 12.5 mg tablet Active 12.5 mg PO DAILY July 16, 2023 12:00am Start: 07-16-2023 Meclizine Acti ve MG PO July 16, 2023 12:00am methotrexate 2.5 mg oral tablet (20 sources) Folate Analog Metabolic Inhibitor Start: 03-15-2015 Methotrexate Sodium 2.5 MG tablet Active 20 mg PO March 15, 2015 12:00am Rheumatoid arthritis Start: 03-15-2015 take 20 mg by mouth once Metho trexate Sodium Active 20 MG PO MO March 15, 2015 12:00am 24 hr metoprolol succinate 50 mg extended release oral tablet (6 sources) beta-Adrenergic Rivera Start: 07-14-2025 Metopr olol Succinate 50 mg Tablet Extended Release 24 Hr Active 100 mg PO DAILY 60 0 July 14, 2025 12:00am Start: 07-09-2025 End: 07-14-2025 take 1 tablet by mouth once daily Metoprolol Succinate 50 mg tablet extended release 24 hr Discontinued 50 mg PO DAILY July 09, 2025 12:00am July 14, 2025 10:39am blood pressure nystatin 100 unt/mg topical powder (4 sources) Polyene Antifungal Start: 07-12-2025 Nystatin 100,000 unit/gram Powder Active 1 NMA TOPICAL TWICE A DAY 15 0 July 12, 2025 12:00am Please contact the information source for Protocol details. pantoprazole 40 mg delayed release oral tablet (4 sources) Proton Pump Inhibitor Start: 07-12-2025 take 1 tablet by mouth twice daily Pantoprazole (Protonix) 40 mg tablet,delayed release (DR/EC) Active 40 mg PO TWICE A DAY 60 0 July 12, 2025 12:00am GI predniSONE 10 mg oral tablet (20 sources) Start: 07-07-2019 Prednisone 10 MG tablet Active 10 mg PO NEEDED as needed for arthritis flare up July 07, 2019 12:00am for arthritis flare up 24 hr venlafaxine 150 mg extended release oral capsule (20 sources) Serotonin and Norepinephrine Reuptake Inhibitor Start: 07-07-2019 take 1 capsule by mouth once daily Venlafaxine 150 MG capsule,extended release 24hr Active 150 mg PO DAILY July 07, 2019 12:00am depression/anxiety Completed/Discontinued Medications Medication Drug Class(es) Dates Sig (Normalized) Sig (Original) acetaminophen 325 mg / HYDROcodone bitartrate 10 mg oral tablet (20 sources) Opioid Agonist Start: 03-15-2015 End: 03-29-2015 Hydrocodone-Acetami nophen 1 EACH tablet Discontinued 1 {tbl} PO 3 TIMES DAILY NEEDED as needed for Pain March 15, 2015 12:00am March 29, 2015 11:58am Start: 03-15-2015 End: 03-29-2015 take 1 tablet by mouth three times daily as needed Hydrocodone-Acetaminophen Discontinued 1 TABLET PO 3 TIMES DAILY NEEDED March 15, 2015 12:00am March 29, 2015 11:58am aspirin 81 mg delayed release oral tablet (20 sources) Platelet Aggregation Inhibitor, Nonsteroidal Anti-inflammatory Drug Start: 09-20-2020 End: 07-12-2025 take 1 tablet by mouth once daily Aspirin 81 MG tablet Discontinued 81 mg PO DAILY@0800 30 0 September 20, 2020 1:00am July 12, 2025 12:46pm clindamycin 300 mg oral capsule (20 sources) Lincosamide Antibacterial Start: 09-05-2021 End: 09-12-2021 [...] Insomnia docusate sodium 100 mg oral capsule (20 sources) Start: 03-15-2015 End: 03-29-2015 take 1 capsule by mouth once daily as needed for constipation Docusate Sodium (Colace) 100 MG capsule Discontinued 100 mg PO DAILY NEEDED as needed for Constipation March 15, 2015 12:00am March 29, 2015 11:59am ergocalciferol 1.25 mg oral capsule (20 sources) Provitamin D2 Compound Start: 03-15-2015 End: 03-29-2015 Ergocalciferol (Vitamin D2) (Vitamin D) 50,000 UNIT capsule Discontinued [address] U PO [facility] March 15, 2015 12:00am March 29, 2015 11:59am furosemide 40 mg oral tablet (5 sources) Loop Diuretic Start: 07-09-2025 End: 07-14-2025 take 1 tablet by mouth once daily Furosemide 40 mg tablet Discontinued 40 mg PO DAILY July 09, 2025 12:00am July 14, 2025 10:39am diuretic hydroCHLOROthiazide 25 mg oral tablet (20 sources) Thiazide Diuretic Start: 03-15-2015 End: 07-12-2025 take 1 tablet by mouth once daily Hydrochlorothiazide 25 MG tablet Discontinued 25 mg PO DAILY March 15, 2015 12:00am July 12, 2025 12:36pm BP sucralfate 1000 mg oral tablet (4 sources) Aluminum Complex Start: 07-12-2025 End: 07-12-2025 take 1 tablet by mouth three times daily Sucralfate 1 gram Tablet Discontinued 1 g PO TID@0700,1100,1600 90 0 July 12, 2025 12:00am July 12, 2025 10:28pm sulfaSALAzine 500 mg oral tablet (20 sources) Aminosalicylate Start: 07-07-2019 End: 07-12-2025 take 1 tablet by mouth twice daily Sulfasalazine 500 MG tablet Discontinued 1000 mg PO TWICE A DAY July 07, 2019 12:00am July 12, 2025 10:28pm arthritis Start: 07-07-2019 take 1000 mg by mout h twice daily Sulfasalazine Active 1000 MG PO TWICE A DAY July 07, 2019 12:00am Problems Problem Classification Problem Date Documented Da te Episodic/Chronic Acute and unspecified renal failure (20 sources) Injury of kidney; Translations: [Acute kidney failure, unspecified] Onset: 5 07-24-2021 Episodic Acute posthemorrhagic anemia (20 sources) Acute posthemorrhagic anemia; Translations: [Acute posthemorrhagic anemia] Onset: 5 07-24-2021 Episodic Anxiety disorders (20 sources) Mixed anxiety and depressive disorder; Translations: [Anxiety disorder, unspecified] 07-24-2021 Chronic Asthma (20 sources) Asthma; Translations: [Unspecified asthma, uncomplicated] 07-24-2021 Chronic Blindness and vision defects (20 sources) Visual disturbance; Translations: [Unspecified visual disturbance] 07-24-2021 Episodic Cardiac dysrhythmias (13 sources) Atrial fibrillation with rapid ventricular response; Translations: [Unspecified atrial fibrillation] Onset: 5 07-10-2025 Chronic Congestive heart failure; nonhypertensive (11 sources) Heart failure, unspecified; Translations: [Acute exacerbation of chronic heart failure] Onset: 5 07-10-2025 Chronic Coronary atherosclerosis and other heart disease (1 source) Atherosclerotic heart disease of [place] coronary artery without angina pectoris; Translations: [Atherosclerotic heart disease of [place] coronary artery without angina pectoris] Onset: Chronic Diseases of white blood cells (12 sources) Leukocytosis; Translations: [Elevated white blood cell count, unspecified] Onset: 5 07-10-2025 Chronic Disorders of lipid metabolism (20 sources) Hyperlipidemia; Translations: [Hyperlipidemia, unspecified] 07-24-2021 Chronic E Codes: Adverse effects of medical drugs (11 sources) Adverse reaction to drug; Translations: [Adverse effect of unspecified drugs, medicaments and biological substances, initial encounter] Onset: 5 07-10-2025 Episodic E Codes: Fall (11 sources) Fall; Translations: [Unspecified fall, initial encounter] 03-21-2024 Episodic Essential hypertension (20 sources) Hypertensive disorder; Translations: [Essential (primary) hypertension] 07-24-2021 Chronic Fluid and electrolyte disorders (20 sources) Hyperkalemia; Translations: [Hyperkalemia] 07-24-2021 Episodic Gastrointestinal hemorrhage (20 sources) Gastrointestinal hemorrhage; Translations: [Gastrointestinal hemorrhage, unspecified] Onset: 5 07-24-2021 Episodic Immunizations and screening for infectious disease (11 sources) Requires tetanus and diphtheria vaccination; Translations: [Encounter for immunization] 03-21-2024 Episodic Malaise and fatigue (11 sources) Fatigue; Translations: [Other fatigue] Onset: 5 07-10-2025 Episodic Other connective tissue disease (20 sources) History of reverse prosthetic total arthroplasty of right shoulder; Translations: [Presence of right artificial shoulder joint] 07-24-2021 Chronic Comment on above: 03/13/15, dr panfilo middleton Other connective tissue disease (20 sources) H/O: rheumatoid arthritis; Translations: [Personal history of other diseases of the musculoskeletal system and connective tissue] 07-24-2021 Episodic Other gastrointestinal disorders (2 sources) History of upper gastrointestinal tract hemorrhage; Translations: [Personal history of other diseases of the digestive system] 07-13-2025 Episodic Other gastrointestinal disorders (1 source) Personal history of other diseases of the digestive system; Translations: [Personal history of other diseases of the digestive system] Onset: 5 Episodic Other gastrointestinal disorders (1 source) Other fecal abnormalities; Translations: [Other fecal abnormalities] Onset: 5 Episodic Other injuries and conditions due to external causes (11 sources) Injury of head; Translations: [Unspecified injury of head, initial encounter] 03-21-2024 Episodic Other lower respiratory disease (10 sources) Dyspnea on exertion; Translations: [Other forms of dyspnea] 07-10-2025 Episodic Other lower respiratory disease (1 source) Other forms of dyspnea; Translations: [Other forms of dyspnea] Onset: 5 Episodic Other nervous system disorders (20 sources) Chronic pain syndrome; Translations: [Chronic pain syndrome] 07-24-2021 Chronic Other nervous system disorders (4 sources) Ulnar neuropathy; Translations: [Lesion of ulnar nerve, right upper limb] 07-16-2023 Chronic Other nervous system disorders (17 sources) Lesion of ulnar nerve, left upper limb; Translations: [Lesion of ulnar nerve] 07-16-2023 Chronic Other nervous system disorders (17 sources) Lesion of ulnar nerve, right upper limb; Translations: [Lesion of ulnar nerve] 07-16-2023 Chronic Other non-epithelial cancer of skin (20 sources) Squamous cell carcinoma of skin; Translations: [Squamous cell carcinoma of skin, unspecified] 09-05-2021 Episodic Other non-traumatic joint disorders (20 sources) Pain in elbow; Translations: [Pain in right elbow] 07-16-2023 Episodic Other nutritional; endocrine; and metabolic disorders (20 sources) Body mass index 40+ - severely obese; Translations: [Morbid (severe) obesity due to excess calories] 07-07-2019 Chronic Other nutritional; endocrine; and metabolic disorders (20 sources) Morbid obesity; Translations: [Morbid (severe) obesity due to excess calories] 07-24-2021 Chronic Other nutritional; endocrine; and metabolic disorders (1 source) Morbid (severe) obesity due to excess calories; Translations: [Morbid (severe) obesity due to excess calories] Onset: 5 Chronic Other nutritional; endocrine; and metabolic disorders (1 source) Body mass index (BMI) 40.0-44.9, adult; Translations: [Body mass index [BMI] 40.0-44.9, adult] Onset: 5 Chronic Other skin disorders (20 sources) Disorder of hand; Translations: [Disorder of the skin and subcutaneous tissue, unspecified] 07-24-2021 Episodic Respiratory failure; insufficiency; arrest (adult) (20 sources) Acute respiratory failure; Translations: [Acute respiratory failure with hypoxia] 07-24-2021 Episodic Retinal detachments; defects; vascular occlusion; and retinopathy (16 sources) Degenerative disorder of macula ; Translations: [Unspecified macular degeneration] 07-16-2023 Chronic Rheumatoid arthritis and related disease (1 source) Rheumatoid arthritis with rheumatoid factor of unspecified site without organ or systems involvement; Translations: [Rheumatoid arthritis with rheumatoid factor of unspecified site without organ or systems involvement] Onset: 5 Chronic Superficial injury; contusion (20 sources) Hematoma of scalp; Translations: [Contusion of scalp, initial encounter] 03-21-2024 Episodic Unclassified (1 source) Left message with office, will call back to schedule appointment. Unclassified (1 source) Cough, unspecified; Translations: [Cough, unspecified] Onset: 5 Results Test Name Value Interpretation Reference Range Facility Anion gap in Serum or Plasma Ordered By: Marciano Castellanos on 07-14-2025 Anion gap [Moles/Vol] 9 mmol/L 5-15 [facility] BUN/creatinine ratioOrdered By: Marciano Castellanos on 07-14-2025 Urea nitrogen/Creatinine [Mass ratio] 21.1 mg/mg High 10-20 [facility] Basic Metabolic Profile (BMP )on 07-14-2025 BUN/CRE 21.1 RATIO High 10-20 [facility] Comment on above: Performed By: #### L [id number], L500.2500, [id number], [id number] #### [facility] [address] [place], [address] Calcium [Mass/Vol] 8.8 mg/dL Normal 7.6-11.0 [facility] Comment on above: Performed By: #### L [id number], L500.2500, [id number], [id number] #### [facility] [address] [place], [address] Chloride [Moles/Vol] 105 mmol/L Normal 98-108 [facility] Comment on above: Performed By: #### L [id number], L500.2500, [id number], [id number] #### [facility] [address] [place], [address] CO2 [Moles/Vol] 25.1 mmol/L Normal 21.0-32.0 [facility] Comment on above: Performed By: #### L [id number], L500.2500, [id number], [id number] #### [facility] [address] [place], [address] Creatinine [Mass/Vol] 0.95 mg/dL Normal 0.70-1.20 [facility] Comment on above: Performed By: #### L [id number], L500.2500, [id number], [id number] #### [facility] [address] [place], [address] ECRCL 61.28 ml/min Normal 50-250 [facility] Comment on above: Performed By: #### L [id number], L500.2500, [id number], [id number] #### [facility] [address] [place], [address] GAP 9 Normal 5-15 [facility] Comment on above: Performed By: #### L [id number], L500.2500, [id number], [id number] #### [facility] [address] [place], [address] GFR/1.73 sq M.predicted among non-blacks MDRD (S/P/Bld) [Vol rate/Area] 61 mL/min/{1.73_m2} Normal >60 [facility] Comment on above: Result Comment: mL/m in/1.73m2 CKD-EPI Creatinine Equation (2020) Performed By: #### L [id number], L500.2500, [id number], [id number] #### [facility] [address] [place], [address] Glucose [Mass/Vol] 103 mg/dL High 70-99 [facility] Comment on above: Performed By: #### L [id number], L500.2500, [id number], [id number] #### [facility] [address] [place], [address] Potassium [Moles/Vol] 3.8 mmol/L Normal 3.3-5.1 [facility] Comment on above: Performed By: #### L [id number], L500.2500, [id number], [id number] #### [facility] [address] [place], [address] Sodium [Moles/Vol] 139 mmol/L Normal 133-145 [facility] Comment on above: Performed By: #### L [id number], L500.2500, [id number], [id number] #### [facility] [address] [place], [address] Urea nitrogen [Mass/Vol] 20 mg/dL High 4-19 [facility] Comment on above: Performed By: #### L [id number], L500.2500, [id number], [id number] #### [facility] [address] [place], [address] Carbon dioxide, total [Moles /volume] in Central venous bloodOrdered By: Marciano Castellanos on 07-14-2025 CO2 [Moles/Vol] 25.1 mmol/L 21.0-32.0 [facility] Chloride assayOrdered By: Shelia Castellanos on 07-14-2025 Chloride [Moles/Vol] 105 mmol/L 98-108 [facility] Discharge Instructionon Discharge Instruction [facility] Medical Records Department [address] [place] [address] Instructions for Home/Discharge Instructions 07/14/25 1036 MR#: [id number] Acct: [id number] Name: BETSY LEE Rep #: [id number] : 1945 79 From: Marciano Castellanos DO PCP: Dr. Marciano Anaya DO Status:ADM IN Discharge Instructions DC O2, CPAP, BIPAP needs Home O2 Discharge instructions: No Dressing / Incision Discharge Activity: Return to Normal Activity Weight Bearing Status: Full weight bearing Follow Up Care Test Results: Test results from this visit will be discussed in further detail at your follow-up appointment, if applicable. Discharge Plan Admission Admit Date/Time: 07/12/25 22:39 Primary Reason for Your Visit: Acute kidney injury Attending Provider: Marciano Castellanos Primary Care Provider: Marciano Anaya Consulting Providers: Courtney Rader Instructions Additional Instructions / Restrictions: Increase your metoprolol to 2 tablets (100 mg total) daily starting 07/15/25 Discharge Orders/Prescriptions Prescriptions: New metoprolol succinate 50 mg Tablet Extended Release 24 Hr 100 mg PO DAILY Qty: 60 0RF Continued oxycodone-acetaminophe n 10-325 mg tablet 1 tab PO Q8H PRN (Reason: pain) Patient Comments: TAKE 1 TABLET BY MOUTH THREE TIMES DAILY NEEDED levothyroxine 100 mcg tablet 100 mcg PO DAILY meclizine 12.5 mg tablet 12.5 mg PO DAILY methotrexate sodium 2.5 MG tablet 20 mg PO MO Patient Comments: Rheumatoid Arthritis - on Mondays albuterol sulfate [ProAir HFA] 1 PUFF inhaler [...] up) Rx Instructions: for arthritis flare up venlafaxine 150 MG capsule,extended release 24hr 150 mg PO DAILY vitamins A,C,G-uhhu-ufkwip 1 EACH tablet 1 tab PO DAILY magnesium oxide 400 MG tablet 400 mg PO DAILY atorvastatin 40 mg tablet 40 mg PO DAILY nystatin 100,000 unit/gram Powder 1 applic topical BID Qty: 15 0RF Protocol: *Topical Application Instructions APPLICATION INSTRUCTIONS: axillary and abd folds pantoprazole [Protonix] 40 mg tablet,delayed release (DR/EC) 40 mg PO BID Qty: 60 0RF amlodipine 5 mg tablet 5 mg PO DAILY budesonide-formoterol [Symbicort] 80-4.5 mcg/actuation HFA aerosol inhaler 1 puff inhalation Q12H Held Eliquis 5 mg tablet 5 mg PO BID Hold Instructions: Resume on 07/19/25. Discontinued furosemide 40 mg tablet 40 mg PO DAILY metoprolol succinate 50 mg tablet extended release 24 hr 50 mg PO DAILY Referrals / Follow Up: Marciano Anaya DO [Primary Care Provider] - In 1 Week Disposition Disposition (needs filled in before D/C Order can be placed): Home, Self Care 07/14/25 1043 Marciano Castellanos DO CC: Dr. Courtney Rader MD; Dr. Marciano Anaya DO Signed Normal [facility] Glomerular filtration rate ( GFR) estimation/1.73 sq m using serum, plasma, or whole bOrdered By: Marciano Castellanos on 07-14-2025 GFR/1.73 sq M.predicted among non-blacks MDRD (S/P/Bld) [Vol rate/Area] 61 mL/min/{1.73_m2} >60 [facility] Comment on above: mL/min/1.73m2 CKD-EP I Creatinine Equation (2020) Potassium measurement (mass/ volume)Ordered By: Marciano Castellanos on 07-14-2025 Potassium (Unsp spec) [Mass/Vol] 3.8 mmol/L 3.3-5.1 [facility] Serum creatinine measurement (mass/volume)Ordered By: Marciano Castellanos on 07-14-2025 Creatinine [Mass/Vol] 0.95 mg/dL 0.70-1.20 [facility] Serum glucose measurement (m ass/volume)Ordered By: Marciano Castellanos on 07-14-2025 Glucose [Mass/Vol] 103 mg/dL High 70-99 [facility] Serum or plasma calcium luis enrique urement (mass/volume)Ordered By: Marciano Castellanos on 07-14-2025 Calcium [Mass/Vol] 8.8 mg/dL 7.6-11.0 [facility] Serum or plasma urea nitroge n measurement (mass/volume)Ordered By: Marciano Castellanos on 07-14-2025 Urea nitrogen [Mass/Vol] 20 mg/dL High 4-19 [facility] Sodium levelOrdered By: Marciano Buckиван on 07-14-2025 Sodium [Moles/Vol] 139 mmol/L 133-145 [facility] Urinalysis, Completeon 07-14 WBC 0-5 SEEN Normal 0-5 [facility] Comment on above: Order Comment: DORIS TER SPECIMEN Performed By: #### L 501.5200, L500.2500, L501.9520, L501.4021 #### [facility] Laboratory [address] [place], [address] BACTERIA 0 SEEN Normal None Seen [facility] Comment on above: Order Comment: DORIS TER SPECIMEN Performed By: #### L 501.5200, L500.2500, L501.9520, L501.4021 #### [facility] Laboratory [address] [place], [address] EPI,SQUAMOUS 0 SEEN Normal 5-10 [facility] Comment on above: Order Comment: DORIS TER SPECIMEN Performed By: #### L 501.5200, L500.2500, L501.9520, L501.4021 #### [facility] [address] [place], [address] Mucus Ql (Urine sed) 0 SEEN Normal [facility] Comment on above: Order Comment: DORIS TER SPECIMEN Performed By: #### L 501.5200, L500.2500, L501.9520, L501.4021 #### [facility] [address] [place], [address] RBC 0 SEEN Normal 0-5 [facility] Comment on above: Order Comment: DORIS TER SPECIMEN Performed By: #### L 501.5200, L500.2500, L501.9520, L501.4021 #### [facility] [address] [place], [address] Urine Cultureon 07-14-2025 URC Mixed Gram Pos Gram Neg Org Roscoe Count 50,000-80,000 MIXC Mixed contaminants. Submit a new specimen if indicated. Normal [facility] Comment on above: Performed By: #### M 100.2200 ####[facility] [address] [place], [address] Absolute lymphocyte countOrd ered By: Courtney Rader on 07-13-2025 Lymphocytes Auto (Unsp spec) [#/Vol] 2.75 10*3/uL 0.83-4.51 [facility] Absolute neutrophil countOrd ered By: Courtney Prasanth on 07-13-2025 Neutrophils (Bld) [#/Vol] 9.9 10*3/uL High 2.0-7.7 [facility] Automated lymphocyte count a s percentage of total leukocytesOrdered By: Courtney Prasanth on 07-13-2025 Lymphocytes/100 WBC Auto (Unsp spec) 19.0 % 19-41 [facility] Basic Metabolic Profile (BMP )on 07-13-2025 BUN Normal 4-19 [facility] Comment on above: Result Comment: Canc elled via OM: MD Ordered Performed By: #### L 500.2500 ####[facility] [address] [place], [address] BUN/CRE Normal 10-20 [facility] Comment on above: Result Comment: Nitesh elled via OM: MD Ordered Performed By: #### L 500.2500 ####[facility] [address] [place], [address] Calcium Normal 7.6-11.0 [facility] Comment on above: Result Comment: Nitesh elled via OM: MD Ordered Performed By: #### L 500.2500 ####[facility] [address] [place], [address] CL Normal 98-108 [facility] Comment on above: Result Comment: Nitesh elled via OM: MD Ordered Performed By: #### L 500.2500 ####[facility] [address] [place], [address] CO2 Normal 21.0-32.0 [facility] Comment on above: Result Comment: Canc elled via OM: MD Ordered Performed By: #### L 500.2500 ####[facility] [address] [place], [address] CREAT,SERUM Normal 0.70-1.20 [facility] Comment on above: Result Comment: Canc elled via OM: MD Ordered Performed By: #### L 500.2500 ####[facility] [address] [place], [address] eGFR Normal >60 [facility] Comment on above: Result Comment: Canc elled via OM: MD Ordered Performed By: #### L 500.2500 ####[facility] [address] [place], [address] GAP Normal 5-15 [facility] Comment on above: Result Comment: Canc elled via OM: MD Ordered Performed By: #### L 500.2500 ####[facility] [address] [place], [address] GLU Normal 70-99 [facility] Comment on above: Result Comment: Canc elled via OM: MD Ordered Performed By: #### L 500.2500 ####[facility] [address] [place], [address] Potassium Normal 3.3-5.1 [facility] Comment on above: Result Comment: Canc elled via OM: MD Ordered Performed By: #### L 500.2500 ####[facility] [address] [place], [address] Basic Metabolic Profile (BMP) Normal 133-145 [facility] Comment on above: Result Comment: Canc elled via OM: MD Ordered Performed By: #### L 500.2500 ####[facility] [address] [place], [address] Basophil percentageOrdered B y: Courtney White on 07-13-2025 Basophils/100 WBC (Bld) 0.4 % 0-1 [facility] Bilirubin Test strip Ql (U)O rdered By: Courtney Rader on 07-13-2025 Bilirubin Ql (U) Negative Negative [facility] Bilirubin, totalOrdered By: Courtney Prasanth on 07-13-2025 Bilirubin [Mass/Vol] 0.41 mg/dL 0.00-1.30 [facility] CBC W/Diff, Automatedon 090 Absolute Lymph 2.75 X10 3/uL Normal 0.83-4.51 [facility] Comment on above: Performed By: #### L 500.4050, L100.0100 ####[facility] [address] [place], [address] Absolute Neut 9.9 X10 3/uL High 2.0-7.7 [facility] Comment on above: Performed By: #### L 500.4050, L100.0100 ####[facility] [address] [place], [address] Basophils/100 WBC (Bld) 0.4 % Normal 0-1 [facility] Comment on above: Performed By: #### L 500.4050, L100.0100 ####[facility] [address] [place], [address] Eosinophils/100 WBC (Bld) 2.2 % Normal 0-5 [facility] Comment on above: Performed By: #### L 500.4050, L100.0100 ####[facility] [address] [place], [address] Erythrocyte distribution width (RBC) [Ratio] 17.7 % High 11.6-14.6 [facility] Comment on above: Performed By: #### L 500.4050, L100.0100 ####[facility] [address] [place], [address] Hematocrit (Bld) [Volume fraction] 27.4 % Low 37-47 [facility] Comment on above: Performed By: #### L 500.4050, L100.0100 ####[facility] [address] [place], [address] Hemoglobin (Bld) [Mass/Vol] 8.8 g/dL Low 12.0-15.0 [facility] Comment on above: Performed By: #### L 500.4050, L100.0100 ####[facility] [address] [place], [address] IG% 1.000 High 0.0-0.9 [facility] Comment on above: Result Comment: IG% - Immature Granulocytes (promyelocytes, myelocytes and metamyelocytes) > 1% indicates that a LEFT SHIFT is Present. Performed By: #### L 500.4050, L100.0100 ####[facility] [address] [place], [address] Lymphocytes/100 WBC (Bld) 19.0 % Normal 19-41 [facility] Comment on above: Performed By: #### L 500.4050, L100.0100 ####[facility] [address] [place], [address] MCH (RBC) [Entitic mass] 30.9 pg Normal 27.0-32.0 [facility] Comment on above: Performed By: #### L 500.4050, L100.0100 ####[facility] [address] [place], [address] MCHC (RBC) [Mass/Vol] 32.1 g/dL Normal 32-36 [facility] Comment on above: Performed By: #### L 500.4050, L100.0100 ####[facility] [address] [place], [address] MCV (RBC) [Entitic vol] 96.1 fL Normal 81-99 [facility] Comment on above: Performed By: #### L 500.4050, L100.0100 ####[facility] [address] [place], [address] Monocytes/100 WBC (Bld) 8.7 % Normal 0-10 [facility] Comment on above: Performed By: #### L 500.4050, L100.0100 ####[facility] [address], [address] Neutrophils/100 WBC (Bld) 68.7 % Normal 47-70 [facility] Comment on above: Performed By: #### L 500.4050, L100.0100 ####[facility] [address] [place], [address] Nucleated RBC (Bld) [#/Vol] 0 10*3/uL Normal 0-5 [facility] Comment on above: Performed By: #### L 500.4050, L100.0100 ####[facility] [address] [place], [address] Platelet mean volume (Bld) [Entitic vol] 11.5 fL Normal 6.2-12.0 [facility] Comment on above: Performed By: #### L 500.4050, L100.0100 ####[facility] [address] [place], [address] Platelets (Bld) [#/Vol] 246 10*3/uL Normal 150-450 [facility] Comment on above: Performed By: #### L 500.4050, L100.0100 ####[facility] [address] [place], [address] RBC (Bld) [#/Vol] 2.85 10*6/uL Low 4.2-5.4 [facility] Comment on above: Performed By: #### L 500.4050, L100.0100 ####[facility] [address] [place], [address] RDW SD 60.1 fl High 35.1-43.9 [facility] Comment on above: Performed By: #### L 500.4050, L100.0100 ####[facility] [address] [place], [address] WBC (Bld) [#/Vol] 14.5 10*3/uL High 4.4-11.0 [facility] Comment on above: Performed By: #### L 500.4050, L100.0100 ####[facility] [address] [place], [address] Comprehensive Metabolic Prof ilon 07-13-2025 Albumin [Mass/Vol] 3.2 g/dL Low 3.4-4.8 [facility] Comment on above: Performed By: #### L 500.4050, L100.0100 ####[facility] [address] [place], [address] Albumin/Globulin [Mass ratio] 1.3 {ratio} Normal 0.9-2.4 [facility] Comment on above: Performed By: #### L 500.4050, L100.0100 ####[facility] [address] [place], [address] ALK PHOS 87 U/L Normal 35-104 [facility] Comment on above: Performed By: #### L 500.4050, L100.0100 ####[facility] [address] [place], [address] ALT [Catalytic activity/Vol] 9 U/L Normal <=34 [facility] Comment on above: Performed By: #### L 500.4050, L100.0100 ####[facility] [address] [place], [address] AST [Catalytic activity/Vol] 15 U/L Normal <=31 [facility] Comment on above: Performed By: #### L 500.4050, L100.0100 ####[facility] [address] [place], [address] Bilirubin [Mass/Vol] 0.41 mg/dL Normal 0.00-1.30 [facility] Comment on above: Performed By: #### L 500.4050, L100.0100 ####[facility] [address] [place], [address] BUN/CRE 18.7 RATIO Normal 10-20 [facility] Comment on above: Performed By: #### L 500.4050, L100.0100 ####[facility] [address] [place], [address] Calcium [Mass/Vol] 8.6 mg/dL Normal 7.6-11.0 [facility] Comment on above: Performed By: #### L 500.4050, L100.0100 ####[facility] [address] [place], [address] Chloride [Moles/Vol] 104 mmol/L Normal 98-108 [facility] Comment on above: Performed By: #### L 500.4050, L100.0100 ####[facility] [address] [place], [address] CO2 [Moles/Vol] 23.5 mmol/L Normal 21.0-32.0 [facility] Comment on above: Performed By: #### L 500.4050, L100.0100 ####[facility] [address] [place], [address] Creatinine [Mass/Vol] 1.43 mg/dL High 0.70-1.20 [facility] Comment on above: Performed By: #### L 500.4050, L100.0100 ####[facility] [address] [place], [address] ECRCL 39.16 ml/min Low 50-250 [facility] Comment on above: Performed By: #### L 500.4050, L100.0100 ####[facility] [address] [place], [address] GAP 12 Normal 5-15 [facility] Comment on above: Performed By: #### L 500.4050, L100.0100 ####[facility] [address] [place], [address] GFR/1.73 sq M.predicted among non-blacks MDRD (S/P/Bld) [Vol rate/Area] 37 mL/min/{1.73_m2} Low >60 [facility] Comment on above: Result Comment: mL/m in/1.73m2 CKD-EPI Creatinine Equation (2020) Performed By: #### L 500.4050, L100.0100 ####[facility] [address] [place], [address] Globulin (S) [Mass/Vol] 2.5 g/dL Normal 2.2-4.2 [facility] Comment on above: Performed By: #### L 500.4050, L100.0100 ####[facility] [address] [place], [address] Glucose [Mass/Vol] 94 mg/dL Normal 70-99 [facility] Comment on above: Performed By: #### L 500.4050, L100.0100 ####[facility] [address] [place], [address] Potassium [Moles/Vol] 3.6 mmol/L Normal 3.3-5.1 [facility] Comment on above: Performed By: #### L 500.4050, L100.0100 ####[facility] [address] [place], [address] Sodium [Moles/Vol] 140 mmol/L Normal 133-145 [facility] Comment on above: Performed By: #### L 500.4050, L100.0100 ####[facility] [address] [place], [address] T PROT 5.6 g/dL Low 5.9-8.4 [facility] Comment on above: Performed By: #### L 500.4050, L100.0100 ####[facility] [address] [place], [address] Urea nitrogen [Mass/Vol] 27 mg/dL High 4-19 [facility] Comment on above: Performed By: #### L 500.4050, L100.0100 ####[facility] [address] [place], [address] Electrocardiogram reportOrde red By: Arturo Man on 07-13-2025 EKG study [facility] Cardi[facility] Services [address] [place] [address] 12 Lead EKG 07/12/25 2145 MR#: [id number] Acct: [id number] Name: BETSY LEE Rep #:[id number] : 1945 79 From: Arturo szymanski MD Attending Dr: Dr. Marciano Castellanos, Status: ADM IN Ordering Dr: Tiffanie Hutchinson DO Date: 0 07/12/25 Location: [facility] Sex: F C Admitted: 07/12/25 Test Reason : DYSRHYTHMIA Blood Pressure : */* mmHG Vent. Rate : 109 BPM Atrial Rate : * BPM P-R Int : * ms QRS Dur : 90 ms QT Int : 348 ms P-R-T Axes : * 42 107 degrees QTcB Int : 468 ms Atrial fibrillation with rapid ventricular response Nonspecific T wave abnormality Abnormal ECG Confirmed by Arturo Man ([id number]), editor school photograph HUAN NORWOOD ([id number]) on 07/13/2025 10:32:45 AM Referred By: Confirmed By: Arturo Man 07/13/25 1032 Date _ Arturo Man MD CC: Dr. Tiffanie Hutchinson, DO; Dr. Marciano Anaya, DO; Dr. Marciano Castellanos DO ~ Signed [facility] Other Phone: Emergency Department Summary on 07-13-2025 Emergency Department Summary [facility] Medical Records Department [address] [place] [address] Emergency Department Summary 07/13/25 MR#: [id number] Acct: [id number] Name: BETSY LEE Rep #: [id number] : 1945 79 From: Tiffanie Hutchinson DO PCP: Dr. Marciano Anaya DO Status:ADM IN Location: [place] [address] HPI HPI - GI History of Present Illness Chief Complaint: GI Bleed Informant: patient and family Diarrhea/Melena/Hemato chezia GI Symptom: Positive for Diarrhea Onset: Today Narrative Narrative: Patient is a 79-year-old female with history of atrial fibrillation and a recent admission for upper GI bleeding. She was actually just discharged from the hospital today. She states before she left they gave her solid food for the first time (previously been on clear liquid diet). Currently tenderness after getting home she had robust episode of diarrhea. She states she could make it to the bathroom initially. She states she had a very large amount of stool come out. There was what appeared to be some dark blood mixed with the stool but she is not entirely certain. She states she then started feel very weak and dizzy. She is then brought back to the emergency room. She denies dizziness abdominal pain. She notes she did feel she was having a hard time moving around. She not take any of her evening medicines and states she had been at time to go over her discharge paperwork before returning to the emergency room. She has had her anticoagulation on hold because of her recent GI bleed. Denies any associated fevers, chest pain, nausea or vomiting peer [facility] Medical History Fatigue SCHULTZ (dyspnea on exertion) Leukocytosis Morbid obesity with BMI of 40.0-44.9, adult Acute exacerbation of chronic heart failure Atrial fibrillation with RVR Adverse drug reaction Upper GI bleed Melanotic stools ABLA (acute blood loss anemia) Atrial fibrillation Squamous cell skin cancer Skin lesion of hand Acute kidney injury Acute respiratory failure with hypoxia Lactic acidosis Vision disturbance Chronic pain syndrome Acute blood loss anemia Anxiety and depression Asthma HLD (hyperlipidemia) Morbid obesity GI bleed Hyperkalemia Hypertension History of rheumatoid arthritis Home Medications ???Medication ???Instructions ???Recorded ???Last Taken ???Type albuterol sulfate 90 mcg/actuation 1 - 2 puff inhalation Q6H PRN OH N 03/15/15 10/09/16 History aerosol inhaler (ProAir HFA) Shortness Of Breath methotrexate sodium 2.5 mg tablet 20 mg PO MO Rheumatoid arthritis 03/15/15 09/18/20 History folic acid 1 mg tablet 1 mg PO DAILY@0800 #0 TABLETS 03/1109/19/20 11:00 Rx losartan 50 mg tablet 50 mg PO DAILY #30 TABLETS 5 09/19/20 11:00 Rx prednisone 10 mg tablet 10 mg PO PRN PRN arthritis flare u p 07/07/19 3 Days Ago History 09/16/20 venlafaxine 150 mg 150 mg PO DAILY depression/anxiety 07/07/19 09/19/20 11:00 History capsule,extended release 24 hr vitamins A,C,S-gogz-ppttqg 2,148 1 tab PO DAILY EYE HEALTH 07/07/19 09/19/20 11:00 History mcg-113 mg-45 mg-17.4 mg tablet magnesium oxide 400 mg PO DAILY SUPPLEMENT 0 09/19/20 11:00 History levothyroxine 100 mcg tablet 100 mcg PO DAILY 07/16/23 Unknown History meclizine 12.5 mg tablet 12.5 mg PO DAILY 07/16/23 Unknown History oxycodone-acetaminophe n 10 mg-325 1 tab PO Q8H PRN pain 07/16/23 Un known History mg tablet apixaban 5 mg tablet (Eliquis) 5 mg PO BID blood thinner 07/09/25 Unknown History Held on 07/12/25. Instructions: Resume on 07/19/25. atorvastatin 40 mg tablet 40 mg PO DAILY cholesterol 5 Unknown History furosemide 40 mg tablet 40 mg PO DAILY diuretic 07/09/25 U nknown History metoprolol succinate 50 mg 50 mg PO DAILY blood pressure 06/12 Unknown History tablet,extended release 24 hr amlodipine 5 mg tablet 5 mg PO DAILY 07/12/25 Unknown His tory budesonide-formoterol HFA 80 1 puff inhalation Q12H 07/12/25 Un known History mcg-4.5 mcg/actuation aerosol inhaler (Symbicort) nystatin 100,000 unit/gram topical 1 applic topical BID #15 grams 0 07/12/25 Unknown Rx powder pantoprazole 40 mg tablet,delayed 40 mg PO BID #60 tabs 07/12/25 Un known Rx release (Protonix) Allergy/AdvReac Type Severity Reaction Status Date / Time adhesive Allergy Other Verified 07/12/25 19:12 amoxicillin trihydrate (From Allergy Unknown Verified 07/12/25 19:12 Augmentin) latex Allergy Unknown Verified 07/12/25 19:12 Penicillins Allergy Unknown Verified 07/12/25 19:12 potassium clavulanate (From Allergy Unknown Verified 07/12/25 19:12 Augmentin) tetracycline Allergy Unknown Verified 07/12/25 19:12 Family History ... Normal [facility] Eosinophil percentageOrdered By: Prasanth on 07-13-2025 Eosinophils/100 WBC (Bld) 2.2 % 0-5 [facility] Erythrocyte distribution wid th ratioOrdered By: Prasanth on 07-13-2025 Erythrocyte distribution width (RBC) [Ratio] 17.7 % High 11.6-14.6 [facility] Erythrocyte distribution wid th standard deviationOrdered By: Prasanth on 07-13-2025 Erythrocyte distribution width (RBC) [Ratio] 60.1 fl High 35.1-43.9 [facility] Hematocrit Auto (Bld) [Volum e fraction]Ordered By: Prasanth on 07-13-2025 Hematocrit (Bld) [Volume fraction] 27.4 % Low 37-47 [facility] Hemoglobin measurementOrdere d By: Courtney Prasanth on 07-13-2025 Hemoglobin (Bld) [Mass/Vol] 8.8 g/dL Low 12.0-15.0 [facility] Immature granulocytes/100 WB C Auto (Bld)Ordered By: Courtney Rader on 07-13-2025 Immature granulocytes/100 WBC (Bld) 1.000 % High 0.0-0.9 [facility] Comment on above: IG% - Immature Granu locytes (promyelocytes, myelocytes and metamyelocytes) > 1% indicates that a LEFT SHIFT is Present. Ketones Test strip Ql (U)Ord ered By: Courtney Rader on 07-13-2025 Ketones Ql (U) Negative Negative [facility] Laboratory - Chemistry and C hemistry - challengeOrdered By: Courtney Rader on 07-13-2025 AST [Catalytic activity/Vol] 15 U/L <32 [facility] MCV (mean corpuscular volume ) determinationOrdered By: Courtney Prasanth on 07-13-2025 MCV (RBC) [Entitic vol] 96.1 fL 81-99 [facility] Mean corpuscular hemoglobin (MCH) determinationOrdered By: Courtney Prasanth on 07-13-2025 MCH (RBC) [Entitic mass] 30.9 pg 27.0-32.0 [facility] Mean corpuscular hemoglobin concentration (MCHC) determinationOrdered By: Courtney Prasanth on 07-13-2025 MCHC (RBC) [Mass/Vol] 32.1 g/dL 32-36 [facility] Mean platelet volume determi nationOrdered By: Courtney Prasanth on 07-13-2025 Platelet mean volume (Bld) [Entitic vol] 11.5 fL 6.2-12.0 [facility] Microscopic analysis of urin e for red blood cells (RBC)Ordered By: Courtney Rader on 07-13-2025 Microscopic analysis of urine for red blood cells (RBC) 0 SEEN /hpf 0-5 [facility] Monocyte percentageOrdered B y: Courtney Prasanth on 07-13-2025 Monocytes/100 WBC (Bld) 8.7 % 0-10 [facility] Mucus LM Ql (Urine sed)Order ed By: Courtney Rader on 07-13-2025 Mucus Ql (Urine sed) 0 SEEN /hpf [facility] Neutrophil percentageOrdered By: Courtney Prasanth on 07-13-2025 Neutrophils/100 WBC (Bld) 68.7 % 47-70 [facility] Nitrite Test strip Ql (U)Ord ered By: Courtney Rader on 07-13-2025 Nitrite Ql (U) Negative Negative [facility] Nucleated red blood cell per centageOrdered By: Courtney Rader on 07-13-2025 Nucleated RBC/100 WBC (Bld) [Ratio] 0 % 0-5 [facility] Platelet countOrdered By: Adriana almanzar Prasanth on 07-13-2025 Platelets (Bld) [#/Vol] 246 10*3/uL 150-450 [facility] Protein Test strip Ql (U)Ord ered By: Courtney Rader on 07-13-2025 Protein Ql (U) 15 mg/dl High Negative [facility] RBC Auto (Bld) [#/Vol]Ordere d By: Courtney Rader on 07-13-2025 RBC (Bld) [#/Vol] 2.85 10*6/uL Low 4.2-5.4 [facility] Serum globulin measurementOr dered By: Courtney Rader on 07-13-2025 Globulin (S) [Mass/Vol] 2.5 g/dL 2.2-4.2 [facility] Serum or plasma alanine duckworth otransferase (ALT) measurementOrdered By: Courtney Rader on 07-13-2025 ALT [Catalytic activity/Vol] 9 U/L <35 [facility] Serum or plasma albumin luis enrique urement (mass/volume)Ordered By: Courtney Rader on 07-13-2025 Albumin [Mass/Vol] 3.2 g/dL Low 3.4-4.8 [facility] Serum or plasma albumin/glob ulin mass ratioOrdered By: Courtney Rader on 07-13-2025 Albumin/Globulin [Mass ratio] 1.3 {ratio} 0.9-2.4 [facility] Serum or plasma alkaline carole sphatase measurementOrdered By: Courtney Rader on 07-13-2025 ALP [Catalytic activity/Vol] 87 U/L 35-104 [facility] Squamous epithelial cells de tection in urine sediment by light microscopyOrdered By: Courtney Rader on 07-13-2025 Epithelial cells.squamous LM Ql (Urine sed) 0 SEEN /hpf 5-10 [facility] Total proteinOrdered By: Jocelyn Rader on 07-13-2025 Protein [Mass/Vol] 5.6 g/dL Low 5.9-8.4 [facility] Urine clarityOrdered By: Jocelyn Rader on 07-13-2025 Clarity (U) Clear Clear [facility] Urine color determinationOrd ered By: Courtney Rader on 07-13-2025 Color (U) Yellow Yellow [facility] Urine glucose detectionOrder ed By: Courtney Prasanth on 07-13-2025 Glucose Ql (U) Normal mg/dl Normal [facility] Urine leukocyte esterase det ection by dipstickOrdered By: Courtney White on 07-13-2025 Leukocyte esterase Test strip Ql (U) 100 /ul High Negative [facility] Urine pHOrdered By: Courtney W shirin on 07-13-2025 pH (U) 5.0 [pH] 5.0 - 8.0 [facility] Urine sediment bacteria coun t by microscopy (number/high power field)Ordered By: Courtney Prasanth on 07-13-2025 Bacteria LM.HPF (Urine sed) [#/Area] 0 /[HPF] None Seen [facility] Urine specific gravity measu rementOrdered By: Courtney Prasanth on 07-13-2025 Specific gravity (U) [Rel density] 1.020 1.002-1.030 [facility] Urine urobilinogen measureme ntOrdered By: Courtney Rader on 07-13-2025 Urobilinogen Ql (U) Normal mg/dl Normal [facility] White blood cell (WBC) count Ordered By: Courtney Rader on 07-13-2025 WBC (Bld) [#/Vol] 14.5 10*3/uL High 4.4-11.0 [facility] White blood cell countOrdere d By: Courtney Rader on 07-13-2025 White blood cell count 0-5 SEEN /hpf 0-5 [facility] 12 Lead EKGon 07-12-2025 12 Lead EKG [facility] [address] [address] 12 Lead EKG 07/12/25 2145 MR#: [id number] Acct: [id number] Name: BETSY LEE Rep #: [id number] : 1945 79 From: Arturo Man MD Attending Dr: Dr. Marciano Castellanos, DO Status: A DM IN Ordering Dr: Tiffanie Hutchinson DO Date: 07/12/25 Location: PCU Sex: F C Admitted: 07/12/25 Test Reason : DYSRHYTHMIA Blood Pressure : */* mmHG Vent. Rate : 109 BPM Atrial Rate : * BPM P-R Int : * ms QRS Dur : 90 ms QT Int : 348 ms P-R-T Axes : * 42 107 degrees QTcB Int : 468 ms Atrial fibrillation with rapid ventricular response Nonspecific T wave abnormality Abnormal ECG Confirmed by Arturo Man ([id number]), editor school photograph HUAN NORWOOD ([id number]) on 07/13/2025 10:32:45 AM Referred By: Confirmed By: Arturo Man 07/13/25 1032 Date Arturo Man MD CC: Dr. Tiffanie Hutchinson, DO; Dr. Marciano Anaya, DO; Dr. Marciano Castellanos, DO Signed Normal [facility] Absolute lymphocyte countOrd ered By: Tiffanie Hutchinson on 07-12-2025 Lymphocytes Auto (Unsp spec) [#/Vol] 2.34 10*3/uL 0.83-4.51 [facility] Absolute lymphocyte countOrd ered By: Marciano Castellanos on 07-12-2025 Lymphocytes Auto (Unsp spec) [#/Vol] 2.64 10*3/uL 0.83-4.51 [facility] Absolute neutrophil countOrd ered By: Tiffanie Hutchinson on 07-12-2025 Neutrophils (Bld) [#/Vol] 14.2 10*3/uL High 2.0-7.7 [facility] Absolute neutrophil countOrd ered By: Marciano Castellanos on 07-12-2025 Neutrophils (Bld) [#/Vol] 6.8 10*3/uL 2.0-7.7 [facility] Anion gap in Serum or Plasma Ordered By: Tiffanie Hutchinson on 07-12-2025 Anion gap [Moles/Vol] 12 mmol/L 5-15 [facility] Automated lymphocyte count a s percentage of total leukocytesOrdered By: Tiffanie Hutchinson on 07-12-2025 Lymphocytes/100 WBC Auto (Unsp spec) 12.8 % Low 19-41 [facility] Automated lymphocyte count a s percentage of total leukocytesOrdered By: Marciano Emanuel on 07-12-2025 Lymphocytes/100 WBC Auto (Unsp spec) 23.7 % 19- [facility] BUN/creatinine ratioOrdered By: Tiffanie Hutchinson on 07-12-2025 Urea nitrogen/Creatinine [Mass ratio] 16.9 mg/mg 10-20 [facility] Basophil percentageOrdered B y: Tiffanie Hutchinson on 07-12-2025 Basophils/100 WBC (Bld) 0.3 % 0-1 [facility] Basophil percentageOrdered B y: Marciano Castellanos on 07-12-2025 Basophils/100 WBC (Bld) 0.5 % 0-1 [facility] Bilirubin Test strip Ql (U)O rdered By: Tiffanie Hutchinson on 07-12-2025 Bilirubin Ql (U) 6 mg/dL High Negative [facility] Comment on above: COLOR OF URINE MAY A FFECT DIPSTICK RESULTS. Bilirubin, totalOrdered By: Tiffanie Hutchinson on 07-12-2025 Bilirubin [Mass/Vol] 0.37 mg/dL 0.00-1.30 [facility] CBC W/Diff, Automatedon Absolute Lymph 2.34 X10 3/uL Normal 0.83-4.51 [facility] Comment on above: Performed By: #### L 501.5200, L500.2500, L501.9520, L501.4021 #### [facility] Laboratory [address] [place], [address] Absolute Neut 14.2 X10 3/uL High 2.0-7.7 [facility] Comment on above: Performed By: #### L 501.5200, L500.2500, L501.9520, L501.4021 #### [facility] [address] [place], [address] Basophils/100 WBC (Bld) 0.3 % Normal 0-1 [facility] Comment on above: Performed By: #### L 501.5200, L500.2500, L501.9520, L501.4021 #### [facility] [address] [place], [address] Eosinophils/100 WBC (Bld) 0.7 % Normal 0-5 [facility] Comment on above: Performed By: #### L 501.5200, L500.2500, L501.9520, L501.4021 #### [facility] [address] [place], [address] Erythrocyte distribution width (RBC) [Ratio] 18.2 % High 11.6-14.6 [facility] Comment on above: Performed By: #### L 501.5200, L500.2500, L501.9520, L501.4021 #### [facility] [address] [place], [address] Hematocrit (Bld) [Volume fraction] 30.0 % Low 37-47 [facility] Comment on above: Performed By: #### L 501.5200, L500.2500, L501.9520, L501.4021 #### [facility] [address] [place], [address] Hemoglobin (Bld) [Mass/Vol] 9.8 g/dL Low 12.0-15.0 [facility] Comment on above: Performed By: #### L 501.5200, L500.2500, L501.9520, L501.4021 #### [facility] [address] [place], [address] IG% 1.500 High 0.0-0.9 [facility] Comment on above: Result Comment: IG% - Immature Granulocytes (promyelocytes, myelocytes and metamyelocytes) > 1% indicates that a LEFT SHIFT is Present. Performed By: #### L 501.5200, L500.2500, L501.9520, L501.4021 #### [facility] [address] [place], [address] Lymphocytes/100 WBC (Bld) 12.8 % Low 19-41 [facility] Comment on above: Performed By: #### L 501.5200, L500.2500, L501.9520, L501.4021 #### [facility] [address] [place], [address] MCH (RBC) [Entitic mass] 31.5 pg Normal 27.0-32.0 [facility] Comment on above: Performed By: #### L 501.5200, L500.2500, L501.9520, L501.4021 #### [facility] [address] [place], [address] MCHC (RBC) [Mass/Vol] 32.7 g/dL Normal 32-36 [facility] Comment on above: Performed By: #### L 501.5200, L500.2500, L501.9520, L501.4021 #### [facility] [address] [place], [address] MCV (RBC) [Entitic vol] 96.5 fL Normal 81-99 [facility] Comment on above: Performed By: #### L 501.5200, L500.2500, L501.9520, L501.4021 #### [facility] [address] [place], [address] Monocytes/100 WBC (Bld) 7.1 % Normal 0-10 [facility] Comment on above: Performed By: #### L 501.5200, L500.2500, L501.9520, L501.4021 #### [facility] [address] [place], [address] Neutrophils/100 WBC (Bld) 77.6 % High 47-70 [facility] Comment on above: Performed By: #### L 501.5200, L500.2500, L501.9520, L501.4021 #### [facility] [address] [place], [address] Nucleated RBC (Bld) [#/Vol] 0.3 10*3/uL Normal 0-5 [facility] Comment on above: Performed By: #### L 501.5200, L500.2500, L501.9520, L501.4021 #### [facility] [address] [place], [address] Platelet mean volume (Bld) [Entitic vol] 11.1 fL Normal 6.2-12.0 [facility] Comment on above: Performed By: #### L 501.5200, L500.2500, L501.9520, L501.4021 #### [facility] [address] [place], [address] Platelets (Bld) [#/Vol] 252 10*3/uL Normal 150-450 [facility] Comment on above: Performed By: #### L 501.5200, L500.2500, L501.9520, L501.4021 #### [facility] [address] [place], [address] RBC (Bld) [#/Vol] 3.11 10*6/uL Low 4.2-5.4 [facility] Comment on above: Performed By: #### L 501.5200, L500.2500, L501.9520, L501.4021 #### [facility] [address] [place], [address] RDW SD 60.5 fl High 35.1-43.9 [facility] Comment on above: Performed By: #### L 501.5200, L500.2500, L501.9520, L501.4021 #### [facility] [address] [place], [address] WBC (Bld) [#/Vol] 18.3 10*3/uL High 4.4-11.0 [facility] Comment on above: Performed By: #### L 501.5200, L500.2500, L501.9520, L501.4021 #### [facility] [address] [place], [address] Absolute Lymph 2.64 X10 3/uL Normal 0.83-4.51 [facility] Comment on above: Performed By: #### L 501.5200, L500.2500, L501.9520, L501.4021 #### [facility] [address] [place], [address] Absolute Neut 6.8 X10 3/uL Normal 2.0-7.7 [facility] Comment on above: Performed By: #### L 501.5200, L500.2500, L501.9520, L501.4021 #### [facility] [address] [place], [address] Basophils/100 WBC (Bld) 0.5 % Normal 0-1 [facility] Comment on above: Performed By: #### L 501.5200, L500.2500, L501.9520, L501.4021 #### [facility] [address] [place], [address] Eosinophils/100 WBC (Bld) 4.0 % Normal 0-5 [facility] Comment on above: Performed By: #### L 501.5200, L500.2500, L501.9520, L501.4021 #### [facility] [address] [place], [address] Erythrocyte distribution width (RBC) [Ratio] 18.0 % High 11.6-14.6 [facility] Comment on above: Performed By: #### L 501.5200, L500.2500, L501.9520, L501.4021 #### [facility] [address] [place], [address] Hematocrit (Bld) [Volume fraction] 28.4 % Low 37-47 [facility] Comment on above: Performed By: #### L 501.5200, L500.2500, L501.9520, L501.4021 #### [facility] [address] [place], [address] Hemoglobin (Bld) [Mass/Vol] 9.3 g/dL Low 12.0-15.0 [facility] Comment on above: Performed By: #### L 501.5200, L500.2500, L501.9520, L501.4021 #### [facility] [address] [place], [address] IG% 1.500 High 0.0-0.9 [facility] Comment on above: Result Comment: IG% - Immature Granulocytes (promyelocytes, myelocytes and metamyelocytes) > 1% indicates that a LEFT SHIFT is Present. Performed By: #### L 501.5200, L500.2500, L501.9520, L501.4021 #### [facility] [address] [place], [address] Lymphocytes/100 WBC (Bld) 23.7 % Normal 19-41 [facility] Comment on above: Performed By: #### L 501.5200, L500.2500, L501.9520, L501.4021 #### [facility] [address] [place], [address] MCH (RBC) [Entitic mass] 31.3 pg Normal 27.0-32.0 [facility] Comment on above: Performed By: #### L 501.5200, L500.2500, L501.9520, L501.4021 #### [facility] [address] [place], [address] MCHC (RBC) [Mass/Vol] 32.7 g/dL Normal 32-36 [facility] Comment on above: Performed By: #### L 501.5200, L500.2500, L501.9520, L501.4021 #### [facility] [address] [place], [address] MCV (RBC) [Entitic vol] 95.6 fL Normal 81-99 [facility] Comment on above: Performed By: #### L 501.5200, L500.2500, L501.9520, L501.4021 #### [facility] [address] [place], [address] Monocytes/100 WBC (Bld) 8.9 % Normal 0-10 [facility] Comment on above: Performed By: #### L 501.5200, L500.2500, L501.9520, L501.4021 #### [facility] [address] [place], [address] Neutrophils/100 WBC (Bld) 61.4 % Normal 47-70 [facility] Comment on above: Performed By: #### L 501.5200, L500.2500, L501.9520, L501.4021 #### [facility] [address] [place], [address] Nucleated RBC (Bld) [#/Vol] 0 10*3/uL Normal 0-5 [facility] Comment on above: Performed By: #### L 501.5200, L500.2500, L501.9520, L501.4021 #### [facility] [address] [place], [address] Platelet mean volume (Bld) [Entitic vol] 11.3 fL Normal 6.2-12.0 [facility] Comment on above: Performed By: #### L 501.5200, L500.2500, L501.9520, L501.4021 #### [facility] [address] [place], [address] Platelets (Bld) [#/Vol] 205 10*3/uL Normal 150-450 [facility] Comment on above: Performed By: #### L 501.5200, L500.2500, L501.9520, L501.4021 #### [facility] [address] [place], [address] RBC (Bld) [#/Vol] 2.97 10*6/uL Low 4.2-5.4 [facility] Comment on above: Performed By: #### L 501.5200, L500.2500, L501.9520, L501.4021 #### [facility] [address] [place], [address] RDW SD 60.7 fl High 35.1-43.9 [facility] Comment on above: Performed By: #### L 501.5200, L500.2500, L501.9520, L501.4021 #### [facility] [address] [place], [address] WBC (Bld) [#/Vol] 11.1 10*3/uL High 4.4-11.0 [facility] Comment on above: Performed By: #### L 501.5200, L500.2500, L501.9520, L501.4021 #### [facility] [address] [place], [address] Carbon dioxide, total [Moles /volume] in Central venous bloodOrdered By: Tiffanie Hutchinson on 07-12-2025 CO2 [Moles/Vol] 23.4 mmol/L 21.0-32.0 [facility] Chloride assayOrdered By: Jluis Hutchinson on 07-12-2025 Chloride [Moles/Vol] 101 mmol/L 98-108 [facility] Comprehensive Metabolic Prof ilon 07-12-2025 Albumin [Mass/Vol] 3.6 g/dL Normal 3.4-4.8 [facility] Comment on above: Performed By: #### L 501.5200, L500.2500, L501.9520, L501.4021 #### [facility] [address] [place], [address] Albumin/Globulin [Mass ratio] 1.3 {ratio} Normal 0.9-2.4 [facility] Comment on above: Performed By: #### L 501.5200, L500.2500, L501.9520, L501.4021 #### [facility] [address] [place], [address] ALK PHOS 101 U/L Normal 35-104 [facility] Comment on above: Performed By: #### L 501.5200, L500.2500, L501.9520, L501.4021 #### [facility] [address] [place], [address] ALT [Catalytic activity/Vol] 13 U/L Normal <=34 [facility] Comment on above: Performed By: #### L 501.5200, L500.2500, L501.9520, L501.4021 #### [facility] [address] [place], [address] AST [Catalytic activity/Vol] 20 U/L Normal <=31 [facility] Comment on above: Performed By: #### L 501.5200, L500.2500, L501.9520, L501.4021 #### [facility] [address] [place], [address] Bilirubin [Mass/Vol] 0.37 mg/dL Normal 0.00-1.30 [facility] Comment on above: Performed By: #### L 501.5200, L500.2500, L501.9520, L501.4021 #### [facility] [address] [place], [address] BUN/CRE 16.9 RATIO Normal 10-20 [facility] Comment on above: Performed By: #### L 501.5200, L500.2500, L501.9520, L501.4021 #### [facility] [address] [place], [address] Calcium [Mass/Vol] 9.2 mg/dL Normal 7.6-11.0 [facility] Comment on above: Performed By: #### L 501.5200, L500.2500, L501.9520, L501.4021 #### [facility] [address] [place], [address] Chloride [Moles/Vol] 101 mmol/L Normal 98-108 [facility] Comment on above: Performed By: #### L 501.5200, L500.2500, L501.9520, L501.4021 #### [facility] [address] [place], [address] CO2 [Moles/Vol] 23.4 mmol/L Normal 21.0-32.0 [facility] Comment on above: Performed By: #### L 501.5200, L500.2500, L501.9520, L501.4021 #### [facility] [address] [place], [address] Creatinine [Mass/Vol] 1.71 mg/dL High 0.70-1.20 [facility] Comment on above: Performed By: #### L 501.5200, L500.2500, L501.9520, L501.4021 #### [facility] [address] [place], [address] ECRCL 33.13 ml/min Low 50-250 [facility] Comment on above: Performed By: #### L 501.5200, L500.2500, L501.9520, L501.4021 #### [facility] [address] [place], [address] GAP 12 Normal 5-15 [facility] Comment on above: Performed By: #### L 501.5200, L500.2500, L501.9520, L501.4021 #### [facility] [address] [place], [address] GFR/1.73 sq M.predicted among non-blacks MDRD (S/P/Bld) [Vol rate/Area] 30 mL/min/{1.73_m2} Low >60 [facility] Comment on above: Result Comment: mL/m in/1.73m2 CKD-EPI Creatinine Equation (2020) Performed By: #### L 501.5200, L500.2500, L501.9520, L501.4021 #### [facility] [address] [place], [address] Globulin (S) [Mass/Vol] 2.8 g/dL Normal 2.2-4.2 [facility] Comment on above: Performed By: #### L 501.5200, L500.2500, L501.9520, L501.4021 #### [facility] [address] [place], [address] Glucose [Mass/Vol] 127 mg/dL High 70-99 [facility] Comment on above: Performed By: #### L 501.5200, L500.2500, L501.9520, L501.4021 #### [facility] [address] [place], [address] Potassium [Moles/Vol] 4.1 mmol/L Normal 3.3-5.1 [facility] Comment on above: Performed By: #### L 501.5200, L500.2500, L501.9520, L501.4021 #### [facility] [address] [place], [address] Sodium [Moles/Vol] 137 mmol/L Normal 133-145 [facility] Comment on above: Performed By: #### L 501.5200, L500.2500, L501.9520, L501.4021 #### [facility] [address] [place], [address] T PROT 6.5 g/dL Normal 5.9-8.4 [facility] Comment on above: Performed By: #### L 501.5200, L500.2500, L501.9520, L501.4021 #### [facility] [address] [place], [address] Urea nitrogen [Mass/Vol] 29 mg/dL High 4-19 [facility] Comment on above: Performed By: #### L 501.5200, L500.2500, L501.9520, L501.4021 #### [facility] [address] [place], [address] Discharge Instructionon Discharge Instruction [facility] Medical Records Department [address] [place] [address] Instructions for Home/Discharge Instructions 07/12/25 1233 MR#: [id number] Acct: [id number] Name: BETSY LEE Rep #: [id number] : 1945 79 From: Marciano Castellanos DO PCP: Dr. Marciano Anaya DO Status:ADM IN Discharge Instructions DC O2, CPAP, BIPAP needs Home O2 Discharge instructions: No Dressing / Incision Discharge Activity: Return to Normal Activity Weight Bearing Status: Full weight bearing Follow Up Care Test Results: Test results from this visit will be discussed in further detail at your follow-up appointment, if applicable. Discharge Plan Admission Admit Date/Time: 07/10/25 02:17 Primary Reason for Your Visit: Gastric ulcer with more GI bleed, atrial fib with RVR Attending Provider: Marciano Castellanos Primary Care Provider: Marciano Anaya Consulting Providers: Dakota Delarosa; Cuauhtemoc Mccallum; Anna Hernandez; Vicki Luna; Brianda Bergeron; Bro Johnson; Pieter Hu Instructions Additional Instructions / Restrictions: Do not take any aspirin, Aleve, or ibuprofen-take Tylenol for pain Discharge Orders/Prescriptions Prescriptions: New nystatin 100,000 unit/gram Powder 1 applic topical BID Qty: 15 0RF Protocol: *Topical Application Instructions APPLICATION INSTRUCTIONS: axillary and abd folds sucralfate 1 gram Tablet 1 g PO TID@0700,1100,1600 Qty: 90 0RF pantoprazole [Protonix] 40 mg tablet,delayed release (DR/EC) 40 mg PO BID Qty: 60 0RF Continued oxycodone-acetaminophe n 10-325 mg tablet PO Patient Comments: TAKE 1 TABLET BY MOUTH THREE TIMES DAILY NEEDED levothyroxine 100 mcg tablet PO meclizine 12.5 mg tablet PO methotrexate sodium 2.5 MG tablet 20 mg PO MO Patient Comments: Rheumatoid Arthritis - on Mondays albuterol sulfate [ProAir HFA] 1 PUFF inhaler [...] release 24hr 150 mg PO DAILY vitamins A,C,H-ldna-pdudtk 1 EACH tablet 1 tab PO DAILY magnesium oxide 400 MG tablet 400 mg PO DAILY furosemide 40 mg tablet 40 mg PO DAILY atorvastatin 40 mg tablet 40 mg PO DAILY metoprolol succinate 50 mg tablet extended release 24 hr 50 mg PO DAILY Held Eliquis 5 mg tablet 5 mg PO BID Hold Instructions: Resume on 07/19/25. Discontinued hydrochlorothiazide 25 MG tablet 25 mg PO DAILY Patient Comments: Blood pressure aspirin 81 MG tablet 81 mg PO DAILY@0800 Qty: 30 0RF amlodipine 5 mg tablet 5 mg PO DAILY Referrals / Follow Up: Marciano Anaya DO [Primary Care Provider] - In 1 Week Disposition Disposition (needs filled in before D/C Order can be placed): Home, Self Care 07/12/25 1249 Marciano Castellanos DO CC: FAUSTO Hernandez; FAUSTO Luna; Dr. Pieter Hu DO; Dr. Bro Johnson DO; Dr. Marciano Anaya DO; Dr. Dakota Delarosa MD; CHENTE Cook; Cuauhtemoc Mccallum DO Signed Normal [facility] Electrocardiogram reportOrde red By: Arturo Man on 07-12-2025 EKG study [facility] Cardi[facility] Services [address] [place] [address] 12 Lead EKG 07/09/252228 MR#: [id number] Acct: [id number] Name: BETSY LEE Rep #:[id number] : 1945 79 From: Arturo szymanski MD Attending Dr: Dr. Marciano Castellanos DO Status: ADM IN Ordering Dr: Arlin Guaman MD Date: Location: [facility] Sex: F C Admitted: 07/10/25 Test Reason : SOB Blood Pressure : */* mmHG Vent. Rate : 134 BPM Atrial Rate : * BPM P-R Int : * ms QRS Dur : 72 ms QT Int : 268 ms P-R-T Axes : * 32 105 degrees QTcB Int : 400 ms Atrial fibrillation with rapid ventricular response Abnormal QRS-T angle, consider primary T wave abnormality Abnormal ECG Confirmed by Arturo Man ([id number]), editor school photograph SARA CRUZ ([id number]) on 07/12/2025 10:34:01 AM Referred By: Confirmed By: Arturo Man 07/12/25 1034 Date _ Arturo Man MD CC: Dr. Arlin Guaman MD; Dr. Marciano Anaya DO; Dr. Marciano Castellanos DO ~ Signed [facility] Other Phone: Eosinophil percentageOrdered By: Tiffanie Hutchinson on 07-12-2025 Eosinophils/100 WBC (Bld) 0.7 % 0-5 [facility] Eosinophil percentageOrdered By: Marciano Castellanos on 07-12-2025 Eosinophils/100 WBC (Bld) 4.0 % 0-5 [facility] Erythrocyte distribution wid th ratioOrdered By: Tiffanie Hutchinson on 07-12-2025 Erythrocyte distribution width (RBC) [Ratio] 18.2 % High 11.6-14.6 [facility] Erythrocyte distribution wid th ratioOrdered By: Marciano Castellanos on 07-12-2025 Erythrocyte distribution width (RBC) [Ratio] 18.0 % High 11.6-14.6 [facility] Erythrocyte distribution wid th standard deviationOrdered By: Tiffanie Hutchinson on 07-12-2025 Erythrocyte distribution width (RBC) [Ratio] 60.5 fl High 35.1-43.9 [facility] Erythrocyte distribution wid th standard deviationOrdered By: Marciano Castellanos on 07-12-2025 Erythrocyte distribution width (RBC) [Ratio] 60.7 fl High 35.1-43.9 [facility] Glomerular filtration rate ( GFR) estimation/1.73 sq m using serum, plasma, or whole bOrdered By: Tiffanie Hutchinson on 07-12-2025 GFR/1.73 sq M.predicted among non-blacks MDRD (S/P/Bld) [Vol rate/Area] 30 mL/min/{1.73_m2} Low >60 [facility] Comment on above: mL/min/1.73m2 CKD-EP I Creatinine Equation (2020) H AND P Exam - [facility] 07-12-2025 H&P Exam - Hospitalist [facility] Medical Records Department [address] [place] [address] H P Exam - Hospitalist 07/12/255 MR#: [id number] Acct: [id number] Name: BETSY LEE Rep #: [id number] : 1945 79 From: Courtney Rader MD PCP: Dr. Marciano Anaya, DO Status:ADM IN Location: [place] [address] HPI - General General Date of Admission: 07/12/25 Date of Service: 07/12/25 Chief Complaint: Severe Diarrhea, debility, weakness. HPI Narrative The patient is a 79 y/o F w/ PMHx: Hypothyroidism, Hx Diabetes mellitus type II, Former EtOH abuse sober, PAF, Asthma/COPD, Former tobacco use, Anxiety and Depression, HTN, HLD, Chronic pain syndrome, Rheumatoid arthritis, Morbid obesity, CKD stage II/III unclear subtype, HFpEF, recently discharged home day of presentation following evaluation and treatment for upper GI bleed secondary to gastric ulcers with hemorrhage exacerbated by use of Eliquis and aspirin with a hemoglobin noted 03/18/2025 at 12.1 dropping down during recent admission on 07/10/25 Hgb 7.4 with PRBC administered w/ 07/11/25 EGD with noted normal esophagus with nonobstructing oozing gastric ulcers with visible vessel with no perforations with clips placed and nonbleeding gastric ulcers with pigmented material treated with argon plasma coagulation without discharge 07/12/25 Hgb 9.3 in addition to episode PAF with RVR with patient discharged on high-dose twice daily PPI and sucralfate in addition to topical nystatin for intertrigo treatment who re-presents to [facility] ED on 07/12/2025 with history of onset dizziness and generalized weakness following a loose bowel movement on evening on day of presentation noted to be brown with dark spots with recent upper GI bleed with evaluation per Dr. Mccallum prompting ED return. Workup in the ED included T97.8, heart rate 127, BP 102/58, respiratory rate 20, 93% room air, CBC with WC 18.3, hemonine 0.8, MCV 96.5, platelet 252 with left shift, CMP BUN/Cr 29/1.71, GFR 30, glucose 127 otherwise not marked appearing, urinalysis with specific gravity 1.20, protein 100, ketone 5, occult blood 250, negative nitrite, leukocyte esterase 500, urine WBCs 10-25 with urine squamous epithelial cells 10-25 thus not a great sample with 2+ bacteria, EKG PAF with RVR with no acute evidence of ischemia. In the ED patient administerd IVFs and Lopressor 5 mg IV x 1. PFSH Medical History Atrial fibrillation Squamous cell skin cancer Skin lesion of hand Acute kidney injury Acute respiratory failure with hypoxia Lactic acidosis Vision disturbance Chronic pain syndrome Acute blood loss anemia Anxiety and depression Asthma HLD (hyperlipidemia) Morbid obesity GI bleed Hyperkalemia Hypertension History of rheumatoid arthritis Home Medications ???Medication ???Instructions ???Recorded ???Last Taken ???Type albuterol sulfate 90 mcg/actuation 1 - 2 puff inhalation Q6H PRN OH N 03/15/15 10/09/16 History aerosol inhaler (ProAir HFA) Shortness Of Breath methotrexate sodium 2.5 mg tablet 20 mg PO MO Rheumatoid arthritis 03/15/15 09/18/20 History folic acid 1 mg tablet 1 mg PO DAILY@0800 #0 TABLETS 03/11 0/15 09/19/20 11:00 Rx losartan 50 mg tablet 50 mg PO DAILY #30 TABLETS 5 09/19/20 11:00 Rx prednisone 10 mg tablet 10 mg PO PRN PRN arthritis flare u p 07/07/19 3 Days Ago History 09/16/20 venlafaxine 150 mg 150 mg PO DAILY depression/anxiety 07/07/19 09/19/20 11:00 History capsule,extended release 24 hr vitamins A,C,M-vqbb-sxrlic 2,148 1 tab PO DAILY EYE HEALTH 07/07/19 09/19/20 11:00 History mcg-113 mg-45 mg-17.4 mg tablet magnesium oxide 400 mg PO DAILY SUPPLEMENT 0 09/19/20 11:00 History levothyroxine 100 mcg tablet 100 mcg PO DAILY 07/16/23 Unknown History meclizine 12.5 mg tablet 12.5 mg PO DAILY 07/16/23 Unknown History oxycodone-acetaminophe n 10 mg-325 1 tab PO Q8H PRN pain 07/16/23 Un known History mg tablet apixaban 5 mg tablet (Eliquis) 5 mg PO BID blood thinner 07/09/25 Unknown History Held on 07/12/25. Instructions: Resume on 07/19/25. atorvastatin 40 mg tablet 40 mg PO DAILY cholesterol 5 Unknown History furosemide 40 mg tablet 40 mg PO DAILY diuretic 07/09/25 U nknown History metoprolol succinate 50 mg 50 mg PO DAILY blood pressure 06/12 Unknown History tablet,extended release 24 hr amlodipine 5 mg tablet 5 mg PO DAILY 07/12/25 Unknown His tory budesonide-formoterol HFA 80 1 puff inhalation Q12H 07/12/25 Un known History mcg-4.5 mcg/actuation aerosol inhaler (Symbicort) nystatin 100,000 unit/gram topical 1 applic topical BID #15 grams 0 07/12/25 Unknown Rx powder pantoprazole 40 mg tablet,delayed 40 mg PO BID #60 tabs 07/12/25 Un known Rx release (Protonix) Allergy/AdvReac Type Severity (more content not included)... Normal [facility] Hematocrit Auto (Bld) [Volum e fraction]Ordered By: Tiffanie Hutchinson on 07-12-2025 Hematocrit (Bld) [Volume fraction] 30.0 % Low 37-47 [facility] Hematocrit Auto (Bld) [Volum e fraction]Ordered By: Marciano Castellanos on 07-12-2025 Hematocrit (Bld) [Volume fraction] 28.4 % Low 37-47 [facility] Hemoglobin measurementOrdere d By: Tiffanie Hutchinson on 07-12-2025 Hemoglobin (Bld) [Mass/Vol] 9.8 g/dL Low 12.0-15.0 [facility] Hemoglobin measurementOrdere d By: Marciano Castellanos on 07-12-2025 Hemoglobin (Bld) [Mass/Vol] 9.3 g/dL Low 12.0-15.0 [facility] Hyaline casts LM.LPF (Urine sed) [#/Area]Ordered By: Tiffanie Hutchinson on 07-12-2025 Hyaline casts (Urine sed) [#/Area] 0 /[LPF] 0-5 [facility] Immature granulocytes/100 WB C Auto (Bld)Ordered By: Tiffanie Hutchinson on 07-12-2025 Immature granulocytes/100 WBC (Bld) 1.500 % High 0.0-0.9 [facility] Comment on above: IG% - Immature Granu locytes (promyelocytes, myelocytes and metamyelocytes) > 1% indicates that a LEFT SHIFT is Present. Immature granulocytes/100 WB C Auto (Bld)Ordered By: Marciano Castellanos on 07-12-2025 Immature granulocytes/100 WBC (Bld) 1.500 % High 0.0-0.9 [facility] Comment on above: IG% - Immature Granu locytes (promyelocytes, myelocytes and metamyelocytes) > 1% indicates that a LEFT SHIFT is Present. Ketones Test strip Ql (U)Ord ered By: Tiffanie Hutchinson on 07-12-2025 Ketones Ql (U) 5 mg/dl High Negative [facility] - Chemistry and C hemistry - challengeOrdered By: Tiffanie Hutchinson on 07-12-2025 AST [Catalytic activity/Vol] 20 U/L <32 [facility] MCV (mean corpuscular volume ) determinationOrdered By: Tiffanie Hutchinson on 07-12-2025 MCV (RBC) [Entitic vol] 96.5 fL 81-99 [facility] MCV (mean corpuscular volume ) determinationOrdered By: Marciano Castellanos on 07-12-2025 MCV (RBC) [Entitic vol] 95.6 fL 81-99 [facility] Magnesiumon 07-12-2025 Magnesium [Mass/Vol] 2.1 mg/dL Normal 1.5-2.2 [facility] Comment on above: Order Comment: Comme nts: may add to ED labs Performed By: #### L 501.5200, L500.2500, L501.9520, L501.4021 #### [facility] [address] [place], [address] Magnesium measurement (mass/ volume)Ordered By: Courtney Rader on 07-12-2025 Magnesium (Unsp spec) [Mass/Vol] 2.1 mg/dL 1.5-2.2 [facility] Mean corpuscular hemoglobin (MCH) determinationOrdered By: Tiffanie Hutchinson on 07-12-2025 MCH (RBC) [Entitic mass] 31.5 pg 27.0-32.0 [facility] Mean corpuscular hemoglobin (MCH) determinationOrdered By: Marciano Castellanos on 07-12-2025 MCH (RBC) [Entitic mass] 31.3 pg 27.0-32.0 [facility] Mean corpuscular hemoglobin concentration (MCHC) determinationOrdered By: Tiffanie Hutchinson on 07-12-2025 MCHC (RBC) [Mass/Vol] 32.7 g/dL - [facility] Mean corpuscular hemoglobin concentration (MCHC) determinationOrdered By: Marciano Castellanos on 07-12-2025 MCHC (RBC) [Mass/Vol] 32.7 g/dL 36 [facility] Mean platelet volume determi nationOrdered By: Tiffanie Hutchinson on 07-12-2025 Platelet mean volume (Bld) [Entitic vol] 11.1 fL 6.2-12.0 [facility] Mean platelet volume determi nationOrdered By: Marciano Castellanos on 07-12-2025 Platelet mean volume (Bld) [Entitic vol] 11.3 fL 6.2-12.0 [facility] Monocyte percentageOrdered B y: Tiffanie Hutchinson on 07-12-2025 Monocytes/100 WBC (Bld) 7.1 % 0-10 [facility] Monocyte percentageOrdered B y: Marciano Castellanos on 07-12-2025 Monocytes/100 WBC (Bld) 8.9 % 0-10 [facility] Neutrophil percentageOrdered By: Tiffanie Hutchinson on 07-12-2025 Neutrophils/100 WBC (Bld) 77.6 % High 47-70 [facility] Neutrophil percentageOrdered By: Marciano Castellanos on 07-12-2025 Neutrophils/100 WBC (Bld) 61.4 % 47-70 [facility] Nitrite Test strip Ql (U)Ord ered By: Tiffanie Hutchinson on 07-12-2025 Nitrite Ql (U) Negative Negative [facility] Nucleated red blood cell per centageOrdered By: Tiffanie Hutchinson on 07-12-2025 Nucleated RBC/100 WBC (Bld) [Ratio] 0.3 % 0-5 [facility] Nucleated red blood cell per centageOrdered By: Marciano Castellanos on 07-12-2025 Nucleated RBC/100 WBC (Bld) [Ratio] 0 % 0-5 [facility] Platelet countOrdered By: Jluis Hutchinson on 07-12-2025 Platelets (Bld) [#/Vol] 252 10*3/uL 150-450 [facility] Platelet countOrdered By: Shelia Castellanos on 07-12-2025 Platelets (Bld) [#/Vol] 205 10*3/uL 150-450 [facility] Potassium measurement (mass/ volume)Ordered By: Tiffanie Hutchinson on 07-12-2025 Potassium (Unsp spec) [Mass/Vol] 4.1 mmol/L 3.3-5.1 [facility] Protein Test strip Ql (U)Ord ered By: Tiffanie Hutchinson on 07-12-2025 Protein Ql (U) 100 mg/dl High Negative [facility] RBC Auto (Bld) [#/Vol]Ordere d By: Tiffanie Hutchinson on 07-12-2025 RBC (Bld) [#/Vol] 3.11 10*6/uL Low 4.2-5.4 [facility] RBC Auto (Bld) [#/Vol]Ordere d By: Marciano Castellanos on 07-12-2025 RBC (Bld) [#/Vol] 2.97 10*6/uL Low 4.2-5.4 [facility] Serum creatinine measurement (mass/volume)Ordered By: Tiffanie Hutchinson on 07-12-2025 Creatinine [Mass/Vol] 1.71 mg/dL High 0.70-1.20 [facility] Serum globulin measurementOr dered By: Tiffanie Hutchinson on 07-12-2025 Globulin (S) [Mass/Vol] 2.8 g/dL 2.2-4.2 [facility] Serum glucose measurement (m ass/volume)Ordered By: Tiffanie Hutchinson on 07-12-2025 Glucose [Mass/Vol] 127 mg/dL High 70-99 [facility] Serum or plasma alanine duckworth otransferase (ALT) measurementOrdered By: Tiffanie Hutchnison on 07-12-2025 ALT [Catalytic activity/Vol] 13 U/L <35 [facility] Serum or plasma albumin luis enrique urement (mass/volume)Ordered By: Tiffanie Hutchinson on 07-12-2025 Albumin [Mass/Vol] 3.6 g/dL 3.4-4.8 [facility] Serum or plasma albumin/glob ulin mass ratioOrdered By: Tiffanie Hutchinson on 07-12-2025 Albumin/Globulin [Mass ratio] 1.3 {ratio} 0.9-2.4 [facility] Serum or plasma alkaline carole sphatase measurementOrdered By: Tiffanie Hutchinson on 07-12-2025 ALP [Catalytic activity/Vol] 101 U/L 35-104 [facility] Serum or plasma calcium luis enrique urement (mass/volume)Ordered By: Tiffanie Hutchinson on 07-12-2025 Calcium [Mass/Vol] 9.2 mg/dL 7.6-11.0 [facility] Serum or plasma urea nitroge n measurement (mass/volume)Ordered By: Tiffanie Hutchinson on 07-12-2025 Urea nitrogen [Mass/Vol] 29 mg/dL High 4-19 [facility] Sodium levelOrdered By: Sang Hutchinson on 07-12-2025 Sodium [Moles/Vol] 137 mmol/L 133-145 [facility] Total proteinOrdered By: Radha Hutchinson on 07-12-2025 Protein [Mass/Vol] 6.5 g/dL 5.9-8.4 [facility] Transitional cells detection in urine sediment by light microscopyOrdered By: Tiffaniecricket Hutchinson on 07-12-2025 Transitional cells LM Ql (Urine sed) 0-5 SEEN /hpf 0-5 [facility] Urinalysis, Completeon 07-12 EPI,TRANSITION 0-5 SEEN Normal 0-5 [facility] Comment on above: Order Comment: CLEAN CATCH Performed By: #### L 501.5200, L500.2500, L501.9520, L501.4021 #### [facility] [address] [place], [address] BACTERIA 2+ /hpf Normal None Seen [facility] Comment on above: Order Comment: CLEAN CATCH Performed By: #### L 501.5200, L500.2500, L501.9520, L501.4021 #### [facility] [address] [place], [address] CAST,FINE GRAN 0-5 SEEN Normal 0-5 [facility] Comment on above: Order Comment: CLEAN CATCH Performed By: #### L 501.5200, L500.2500, L501.9520, L501.4021 #### [facility] [address] [place], [address] CAST,HYALINE 0-5 SEEN Normal 0-5 [facility] Comment on above: Order Comment: CLEAN CATCH Performed By: #### L 501.5200, L500.2500, L501.9520, L501.4021 #### [facility] [address] [place], [address] EPI,SQUAMOUS 10-25 SEEN Normal 5-10 [facility] Comment on above: Order Comment: CLEAN CATCH Performed By: #### L 501.5200, L500.2500, L501.9520, L501.4021 #### [facility] [address] [place], [address] WBC 10-25 SEEN Normal 0-5 [facility] Comment on above: Order Comment: CLEAN CATCH Performed By: #### L 501.5200, L500.2500, L501.9520, L501.4021 #### [facility] [address] [place], [address] Mucus Ql (Urine sed) 0 SEEN Normal [facility] Comment on above: Order Comment: CLEAN CATCH Performed By: #### L 501.5200, L500.2500, L501.9520, L501.4021 #### [facility] [address] [place], [address] RBC 0 SEEN Normal 0-5 [facility] Comment on above: Order Comment: CLEAN CATCH Performed By: #### L 501.5200, L500.2500, L501.9520, L501.4021 #### [facility] [address] [place], [address] Urine clarityOrdered By: Radha Hutchinson on 07-12-2025 Clarity (U) Sl. Cloudy Clear [facility] Urine color determinationOrd ered By: Tiffanie Hutchinson on 07-12-2025 Color (U) Yellow Yellow [facility] Urine cultureOrdered By: Radha Hutchinson on 07-12-2025 Bacteria identified Cx Nom (U) Mixed Gram Pos & Gram Neg Org Abnormal [facility] Urine glucose detectionOrder ed By: Tiffanie Hutchinson on 07-12-2025 Glucose Ql (U) Normal mg/dl Normal [facility] Urine leukocyte esterase det ection by dipstickOrdered By: Tiffanie Hutchinson on 07-12-2025 Leukocyte esterase Test strip Ql (U) 500 /ul High Negative [facility] [facility] Urine pHOrdered By: Tiffanie maloney on 07-12-2025 pH (U) 5.0 [pH] 5.0 - 8.0 [facility] Urine sediment fine granular cast count by microscopy (number/low power field)Ordered By: Tiffanie Hutchinson on 07-12-2025 Fine Granular Casts LM.LPF (Urine sed) [#/Area] 0-5 SEEN /lpf 0-5 [facility] Urine specific gravity measu rementOrdered By: Tiffanie Hutchinson on 07-12-2025 Specific gravity (U) [Rel density] 1.020 1.002-1.030 [facility] Urine urobilinogen measureme ntOrdered By: Tiffanie Hutchinson on 07-12-2025 Urobilinogen Ql (U) 1 mg/dl High Normal [facility] White blood cell (WBC) count Ordered By: Tiffanie Hutchinson on 07-12-2025 WBC (Bld) [#/Vol] 18.3 10*3/uL High 4.4-11.0 [facility] White blood cell (WBC) count Ordered By: Marciano Castellanos on 07-12-2025 WBC (Bld) [#/Vol] 11.1 10*3/uL High 4.4-11.0 [facility] Activated partial thrombopla stin time (aPTT) in platelet poor plasma by coagulation aOrdered By: Lai Burroughs on 07-11-2025 aPTT Coag (PPP) [Time] 31.6 s 24.1-36.2 [facility] Anion gap in Serum or Plasma Ordered By: Pieter Hu on 07-11-2025 Anion gap [Moles/Vol] 14 mmol/L 5-15 [facility] BUN/creatinine ratioOrdered By: Pieter Hu on 07-11-2025 Urea nitrogen/Creatinine [Mass ratio] 40.6 mg/mg High 10-20 [facility] Basic Metabolic Profile (BMP )on 07-11-2025 BUN/CRE 40.6 RATIO High - [facility] Comment on above: Performed By: #### L 501.5200, L500.2500, L501.5520, L501.4021 #### [facility] Laboratory [address] [place], [address] Calcium [Mass/Vol] 9.0 mg/dL Normal 7.6-11.0 [facility] Comment on above: Performed By: #### L 501.5200, L500.2500, L501.9520, L501.4021 #### [facility] Laboratory [address] [place], [address] Chloride [Moles/Vol] 105 mmol/L Normal 98-108 [facility] Comment on above: Performed By: #### L 501.5200, L500.2500, L501.9520, L501.4021 #### [facility] [address] [place], [address] CO2 [Moles/Vol] 21.2 mmol/L Normal 21.0-32.0 [facility] Comment on above: Performed By: #### L 501.5200, L500.2500, L501.9520, L501.4021 #### [facility] [address] [place], [address] Creatinine [Mass/Vol] 1.00 mg/dL Normal 0.70-1.20 [facility] Comment on above: Performed By: #### L 501.5200, L500.2500, L501.9520, L501.4021 #### [facility] [address] [place], [address] ECRCL 57.38 ml/min Normal 50-250 [facility] Comment on above: Performed By: #### L 501.5200, L500.2500, L501.9520, L501.4021 #### [facility] [address] [place], [address] GAP 14 Normal 5-15 [facility] Comment on above: Performed By: #### L 501.5200, L500.2500, L501.9520, L501.4021 #### [facility] [address] [place], [address] GFR/1.73 sq M.predicted among non-blacks MDRD (S/P/Bld) [Vol rate/Area] 57 mL/min/{1.73_m2} Low >60 [facility] Comment on above: Result Comment: mL/m in/1.73m2 CKD-EPI Creatinine Equation (2020) Performed By: #### L 501.5200, L500.2500, L501.9520, L501.4021 #### [facility] [address] [place], [address] Glucose [Mass/Vol] 128 mg/dL High 70-99 [facility] Comment on above: Performed By: #### L 501.5200, L500.2500, L501.9520, L501.4021 #### [facility] [address] [place], [address] Potassium [Moles/Vol] 3.9 mmol/L Normal 3.3-5.1 [facility] Comment on above: Performed By: #### L 501.5200, L500.2500, L501.9520, L501.4021 #### [facility] [address] [place], [address] Sodium [Moles/Vol] 140 mmol/L Normal 133-145 [facility] Comment on above: Performed By: #### L 501.5200, L500.2500, L501.9520, L501.4021 #### [facility] [address] [place], [address] Urea nitrogen [Mass/Vol] 41 mg/dL High 4-19 [facility] Comment on above: Performed By: #### L 501.5200, L500.2500, L501.9520, L501.4021 #### [facility] [address] [place], [address] CBC-Complete Blood Cnt No Divine thakkar 07-11-2025 Erythrocyte distribution width (RBC) [Ratio] 17.7 % High 11.6-14.6 [facility] Comment on above: Performed By: #### L 501.5200, L500.2500, L501.9520, L501.4021 #### [facility] [address] [place], [address] Hematocrit (Bld) [Volume fraction] 29.4 % Low 37-47 [facility] Comment on above: Performed By: #### L 501.5200, L500.2500, L501.9520, L501.4021 #### [facility] [address] [place], [address] Hemoglobin (Bld) [Mass/Vol] 9.6 g/dL Low 12.0-15.0 [facility] Comment on above: Performed By: #### L 501.5200, L500.2500, L501.9520, L501.4021 #### [facility] [address] [place], [address] MCH (RBC) [Entitic mass] 30.6 pg Normal 27.0-32.0 [facility] Comment on above: Performed By: #### L 501.5200, L500.2500, L501.9520, L501.4021 #### [facility] [address] [place], [address] MCHC (RBC) [Mass/Vol] 32.7 g/dL Normal 32-36 [facility] Comment on above: Performed By: #### L 501.5200, L500.2500, L501.9520, L501.4021 #### [facility] [address] [place], [address] MCV (RBC) [Entitic vol] 93.6 fL Normal 81-99 [facility] Comment on above: Performed By: #### L 501.5200, L500.2500, L501.9520, L501.4021 #### [facility] [address] [place], [address] Platelet mean volume (Bld) [Entitic vol] 11.0 fL Normal 6.2-12.0 [facility] Comment on above: Performed By: #### L 501.5200, L500.2500, L501.9520, L501.4021 #### [facility] [address] [place], [address] Platelets (Bld) [#/Vol] 196 10*3/uL Normal 150-450 [facility] Comment on above: Performed By: #### L 501.5200, L500.2500, L501.9520, L501.4021 #### [facility] [address] [place], [address] RBC (Bld) [#/Vol] 3.14 10*6/uL Low 4.2-5.4 [facility] Comment on above: Performed By: #### L 501.5200, L500.2500, L501.9520, L501.4021 #### [facility] [address] [place], [address] RDW SD 58.3 fl High 35.1-43.9 [facility] Comment on above: Performed By: #### L 501.5200, L500.2500, L501.9520, L501.4021 #### [facility] [address] [place], [address] WBC (Bld) [#/Vol] 16.8 10*3/uL High 4.4-11.0 [facility] Comment on above: Performed By: #### L 501.5200, L500.2500, L501.9520, L501.4021 #### [facility] [address] [place], [address] Carbon dioxide, total [Moles /volume] in Central venous bloodOrdered By: Pieter Fritz on 07-11-2025 CO2 [Moles/Vol] 21.2 mmol/L 21.0-32.0 [facility] Chloride assayOrdered By: Tirso Montanabell on 07-11-2025 Chloride [Moles/Vol] 105 mmol/L 98-108 [facility] EGD Reporton 07-11-2025 EGD Report [facility] Medical Records Department [address] [place] [address] EGD Report MR#: [id number] Acct: [id number] Name: BETSY LEE Rep #: [id number] : 1945 79 From: Cuauhtemoc Mccallum DO PCP: Dr. Marciano Anaya DO Status:ADM IN Patient Name: Betsy Lee Procedure Date: 07/11/2025 10:45 AM Date of : 1945 Age: 79 Procedure: Upper GI endoscopy Indications: Melena Providers: Cuauhtemoc Mccallum DO Medicines: Monitored Anesthesia Care Patient Profile: This is a 79 year old female. Refer to note in patient chart for documentation of history and physical. Patient has symptoms. Complications: No immediate complications. Procedure: Pre-Anesthesia Assessment: - Prior to the procedure, a History and Physical was performed, and patient medications and allergies were reviewed. The patient is competent. The risks and benefits of the procedure and the sedation options and risks were discussed with the patient. All questions were answered and informed consent was obtained. Patient identification and proposed procedure were verified by the physician in the pre-procedure area. Mental Status Examination: alert and oriented. Airway Examination: normal oropharyngeal airway and neck mobility. Respiratory Examination: clear to auscultation. CV Examination: normal. Prophylactic Antibiotics: The patient does not require prophylactic antibiotics. Prior Anticoagulants: The patient has taken no anticoagulant or antiplatelet agents except for aspirin. ASA Grade Assessment: III - A patient with severe systemic disease. After reviewing the risks and benefits, the patient was deemed in satisfactory condition to undergo the procedure. The anesthesia plan was to use monitored anesthesia care (MAC). Immediately prior to administration of medications, the patient was re-assessed for adequacy to receive sedatives. The heart rate, respiratory rate, oxygen saturations, blood pressure, adequacy of pulmonary ventilation, and response to care were monitored throughout the procedure. The physical status of the patient was re-assessed after the procedure. After obtaining informed consent, the endoscope was passed under direct vision. Throughout the procedure, the patient's blood pressure, pulse, and oxygen saturations were monitored continuously. The Endoscope was introduced through the mouth, and advanced to the fourth part of the duodenum. Small bowel enteroscopy was deemed necessary. The upper GI endoscopy was accomplished without difficulty. The patient tolerated the procedure well. Scope In: 11:38:04 AM Scope Out: 11:48:16 AM Total Procedure Duration Time 0 hours 10 minutes 12 seconds Findings: The examined esophagus was normal. Four non-obstructing oozing cratered gastric ulcers of significant severity with a visible vessel were found in the gastric body and on the lesser curvature of the stomach. The largest lesion was 10 mm in largest dimension. There is no evidence of perforation. To stop active bleeding, two hemostatic clips were successfully placed. 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 There was no bleeding at the end of the procedure. Estimated blood loss was minimal. Two non-bleeding linear gastric ulcers with pigmented material were found on the greater curvature of the stomach. The largest lesion was 5 mm in largest dimension. Coagulation for destruction of remaining portion of lesion using argon plasma at 0.3 liters/minute and 30 mays was successful. Estimated blood loss was minimal. Coagulation for bleeding prevention using argon plasma at 0.8 liters/minute and 20 mays was successful. Estimated blood loss was minimal. No gross lesions were noted in the entire examined duodenum. Impression: - Normal esophagus. - Non-obstructing oozing gastric ulcers with a visible vessel. There is no evidence of perforation. Clips were placed. 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 - Non-bleeding gastric ulcers with pigmented material. Treated with argon plasma coagulation (APC). - No gross lesions in the entire examined duodenum. - No specimens collected. Recommendation: - [facility]. - Full liquid diet today. - Continue present medications. Cuauhtemoc Mccallum DO 07/11/2025 12:18:34 PM This report has been signed electronically. Number of Addenda: 0 Note Initiated On: 07/11/2025 10:45 AM 07/11/25 1219 Date Cuauhtemoc Mccallum DO Cosigner Signature: Date (if indicated) CC: Dr. Marciano Anaya DO; Cuauhtemoc Mccallum DO Date Dictated: 07/11/25 1045 Date Transcribed: Air Hose Coupler: RF Signed Normal [facility] Glomerular filtration rate ( GFR) estimation/1.73 sq m using serum, plasma, or whole bOrdered By: Pieter Hu on 07-11-2025 GFR/1.73 sq M.predicted among non-blacks MDRD (S/P/Bld) [Vol rate/Area] 57 mL/min/{1.73_m2} Low >60 [facility] Comment on above: mL/min/1.73m2 CKD-EP I Creatinine Equation (2020) International normalized rat io (INR) calculationOrdered By: Lai Burroughs on 07-11-2025 INR Coag (Bld) [Relative time] 1.4 {INR} [facility] MR/OP.PR[facility]ATon 07-11[facility]2025 [facility] Medical Records Department [address] [place] [address] Provation Physician Letter MR#: [id number] Acct: [id number] Name: BETSY LEE Rep #: [id number] : 1945 79 From: Cuauhtemoc Mccallum DO PCP: Dr. Marciano Anaya DO Status:ADM IN 07/11/2025 Marciano Anaya [address] [facility] [place] [address] Re : Upper GI endoscopy procedure for Betsydavid Lee Dear Dr. Anaya This procedure was performed on Friday, July 11, 2025. My impressions and recommendations are as follows: Impressions : - Normal esophagus. - Non-obstructing oozing gastric ulcers with a visible vessel. There is no evidence of perforation. Clips were placed. 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 - Non-bleeding gastric ulcers with pigmented material. Treated with argon plasma coagulation (APC). - No gross lesions in the entire examined duodenum. - No specimens collected. Recommendations : - [facility]. - Full liquid diet today. - Continue present medications. My findings are described in the full procedure note, which is enclosed. If I can be of further assistance, please feel free to contact me at . Sincerely, Cuauhtemoc Mccallum DO 07/11/2025 12:18:34 PM This report has been signed electronically. 07/11/25 1219 Date Cuauhtemoc Mccallum DO Cosigner Signature: Date (if indicated) CC: FAUSTO Hernandez; FAUSTO Luna; Dr. Pieter Hu DO; Dr. Bro Johnson DO; Dr. Marciano Anaya DO; Dr. Marciano Castellanos DO; Dr. Dakota Delarosa MD; CHENTE Cook; Cuauhtemoc Mccallum DO Date Dictated: 07/11/25 1045 Date Transcribed: Air Hose Coupler: RF Signed [facility] MR/POSTOP.[facility] 07-11-2025 MR/POSTOP[facility] Medical Records Department [address] [place] [address] Anesthesia Postop Eval I 07/11/25 1216 MR#: [id number] Acct: [id number] Name: BETSY LEE Rep #: [id number] : 1945 79 From: Lai Burroughs MD PCP: Dr. Marciano Anaya DO Status:ADM IN Y Race: C Location: [place] [address] Anesthesia: Postop Eval I Current Vital Signs Temperature: 97.1 F Pulse Rate: 95 Blood Pressure: 99/72 Respiratory Rate: 12 Pulse Ox: 94 Oxygen Delivery Method: Room Air Assessment Airway patent: Yes Spontaneous unlabored respirations: Yes Mental status: Awake and Calm nausea: No Vomiting: No Anesthesia Complication: No Fluid Hydration Crystalloid volume administer (ml): 300 Total IV fluid infused: 300 Progress Note Post-operative progress note: stable to PACU Anesthesia document: Postop Eval 1 completed: Yes 07/11/25 1217 Date Lai Burroughs MD Cosigner Signature: Date CC: Signed Normal [facility] [id number] 07-11-2025 [facility] Medical Records Department [address] [place] [address] Anesthesia Postop Eval II 07/11/25 1217 MR#: [id number] Acct: [id number] Name: BETSY LEE Geovany Rep #: [id number] : 1945 79 From: Lai Burroughs MD PCP: Dr. Marciano Anaya, DO Status:ADM IN Y Race: C Location: [place] [address] Anesthesia Postop Eval I Sum Postop Eval Completion status Anesthesia document: Postop Eval 1 completed: Yes Anesthesia Postop Eval I Summary Anesthesia Postop Eval I Summary: Anesthesia Postop Eval I: Assessment Summary Airway patent Yes 07/11/25 12:17 Spontaneous unlabored Yes 07/11/25 12:17 respirations Mental status Awake,Calm 07/11/25 12:17 nausea No 07/11/25 12:17 Vomiting No 07/11/25 12:17 Anesthesia Postop Eval I: Fluid Summary Crystalloid volume administer 300 07/11/25 12:17 (ml) Colloids volume administered ( ml) Blood Product volume administered (ml) Total IV fluid infused 300 07/11/25 12:17 Anesthesia Postop Eval I: Summary Notes Anesthesia Complication No 07/11/25 12:17 Anesthesia Complication Comment: Post-operative progress note stable to PACU 07/11/25 12:17 Anesthesia: Postop Eval II Evaluation Mental status: Awake and Calm Pain Level: 0 nausea: No Vomiting: No Progress Note Post-operative progress note: meets discharge criteria Complications Anesthesia Complication: No 07/11/25 1218 Date Lai Delgado Signature: Date CC: Signed Normal [facility] Partial Thromboplast Timeon 07-11-2025 aPTT Coag (Bld) [Time] 31.6 s Normal 24.1-36.2 [facility] Comment on above: Performed By: #### L 501.5200, L500.2500, L501.9520, L501.4021 #### [facility] Laboratory [address] [facility] [place], [place], [address] Potassium measurement (mass/ volume)Ordered By: Pieter Hu on 07-11-2025 Potassium (Unsp spec) [Mass/Vol] 3.9 mmol/L 3.3-5.1 [facility] Prothrombin Time w/INRon INR Coag (PPP) [Relative time] 1.4 {INR} Normal [facility] Comment on above: Performed By: #### L 501.5200, L500.2500, L501.9520, L501.4021 #### [facility] Laboratory [address] [place], [place], [address] Prothrombin timeOrdered By: Lai Burroughs on 07-11-2025 PT Coag (PPP) [Time] 16.9 s High 11.7-14.9 [facility] Comment on above: Performed By: #### L 501.5200, L500.2500, L501.9520, L501.4021 #### [facility] Laboratory [address] [place], [address] Serum creatinine measurement (mass/volume)Ordered By: Pieter Hu on 07-11-2025 Creatinine [Mass/Vol] 1.00 mg/dL 0.70-1.20 [facility] Serum glucose measurement (m ass/volume)Ordered By: Pieter Hu on 07-11-2025 Glucose [Mass/Vol] 128 mg/dL High 70-99 [facility] Serum or plasma calcium luis enrique urement (mass/volume)Ordered By: Pieter Hu on 07-11-2025 Calcium [Mass/Vol] 9.0 mg/dL 7.6-11.0 [facility] Serum or plasma urea nitroge n measurement (mass/volume)Ordered By: Pieter Hu on 07-11-2025 Urea nitrogen [Mass/Vol] 41 mg/dL High 4-19 [facility] Sodium levelOrdered By: Jerel Hu on 07-11-2025 Sodium [Moles/Vol] 140 mmol/L 133-145 [facility] Bilirubin Test strip Ql (U)O rdered By: Arlin Guaman on 07-10-2025 Bilirubin Ql (U) Negative Negative [facility] Bilirubin, totalOrdered By: Bro Leong on 07-10-2025 Bilirubin [Mass/Vol] 0.25 mg/dL 0.00-1.30 [facility] Comment on above: Previous reported re sult: 0.21 mg/dLEdited by: AUTOINS on 07/10/25:0740 AMENDED REPORT 07/10/25 0740 T BILI previously reported as: 0.21 mg/dL CBC W/Diff, Automatedon 06-12 Absolute Lymph 2.42 X10 3/uL Normal 0.83-4.51 [facility] Comment on above: Performed By: #### L 501.5200, L500.2500, L501.9520, L501.4021 #### [facility] Laboratory [address] [place], [address] Absolute Neut 9.4 X10 3/uL High 2.0-7.7 [facility] Comment on above: Performed By: #### L 501.5200, L500.2500, L501.9520, L501.4021 #### [facility] Laboratory [address] [place], [address] Basophils/100 WBC (Bld) 0.5 % Normal 0-1 [facility] Comment on above: Performed By: #### L 501.5200, L500.2500, L501.9520, L501.4021 #### [facility] [address] [place], [address] Eosinophils/100 WBC (Bld) 0.1 % Normal 0-5 [facility] Comment on above: Performed By: #### L 501.5200, L500.2500, L501.9520, L501.4021 #### [facility] Laboratory [address] [place], [address] Erythrocyte distribution width (RBC) [Ratio] 15.6 % High 11.6-14.6 [facility] Comment on above: Performed By: #### L 501.5200, L500.2500, L501.9520, L501.4021 #### [facility] Laboratory [address] [place], [address] Hematocrit (Bld) [Volume fraction] 25.4 % Low 37-47 [facility] Comment on above: Performed By: #### L 501.5200, L500.2500, L501.9520, L501.4021 #### [facility] Laboratory [address] [place], [address] Hemoglobin (Bld) [Mass/Vol] 8.1 g/dL Low 12.0-15.0 [facility] Comment on above: Performed By: #### L 501.5200, L500.2500, L501.9520, L501.4021 #### [facility] [address] [place], [address] IG% 0.600 Normal 0.0-0.9 [facility] Comment on above: Result Comment: IG% - Immature Granulocytes (promyelocytes, myelocytes and metamyelocytes) > 1% indicates that a LEFT SHIFT is Present. Performed By: #### L 501.5200, L500.2500, L501.9520, L501.4021 #### [facility] [address] [place], [address] Lymphocytes/100 WBC (Bld) 19.2 % Normal 19-41 [facility] Comment on above: Performed By: #### L 501.5200, L500.2500, L501.9520, L501.4021 #### [facility] Laboratory [address] [place], [address] MCH (RBC) [Entitic mass] 31.5 pg Normal 27.0-32.0 [facility] Comment on above: Performed By: #### L 501.5200, L500.2500, L501.9520, L501.4021 #### [facility] [address] [place], [address] MCHC (RBC) [Mass/Vol] 31.9 g/dL Low 32-36 [facility] Comment on above: Performed By: #### L 501.5200, L500.2500, L501.9520, L501.4021 #### [facility] Laboratory [address] [place], [address] MCV (RBC) [Entitic vol] 98.8 fL Normal 81-99 [facility] Comment on above: Performed By: #### L 501.5200, L500.2500, L501.9520, L501.4021 #### [facility] [address] [place], [address] Monocytes/100 WBC (Bld) 4.8 % Normal 0-10 [facility] Comment on above: Performed By: #### L 501.5200, L500.2500, L501.9520, L501.4021 #### [facility] [address] [place], [address] Neutrophils/100 WBC (Bld) 74.8 % High 47-70 [facility] Comment on above: Performed By: #### L 501.5200, L500.2500, L501.9520, L501.4021 #### [facility] [address] [place], [address] Nucleated RBC (Bld) [#/Vol] 0.2 10*3/uL Normal 0-5 [facility] Comment on above: Performed By: #### L 501.5200, L500.2500, L501.9520, L501.4021 #### [facility] [address] [place], [address] Platelet mean volume (Bld) [Entitic vol] 11.5 fL Normal 6.2-12.0 [facility] Comment on above: Performed By: #### L 501.5200, L500.2500, L501.9520, L501.4021 #### [facility] [address] [place], [address] Platelets (Bld) [#/Vol] 229 10*3/uL Normal 150-450 [facility] Comment on above: Performed By: #### L 501.5200, L500.2500, L501.9520, L501.4021 #### [facility] [address] [place], [address] RBC (Bld) [#/Vol] 2.57 10*6/uL Low 4.2-5.4 [facility] Comment on above: Performed By: #### L 501.5200, L500.2500, L501.9520, L501.4021 #### [facility] [address] [place], [address] RDW SD 54.4 fl High 35.1-43.9 [facility] Comment on above: Performed By: #### L 501.5200, L500.2500, L501.9520, L501.4021 #### [facility] [address] [place], [address] WBC (Bld) [#/Vol] 12.6 10*3/uL High 4.4-11.0 [facility] Comment on above: Performed By: #### L 501.5200, L500.2500, L501.9520, L501.4021 #### [facility] [address] [place], [address] CBC-Complete Blood Cnt No [facility] 07-10-2025 Erythrocyte distribution width (RBC) [Ratio] 15.9 % High 11.6-14.6 [facility] Comment on above: Performed By: #### L 501.5200, L500.2500, L501.9520, L501.4021 #### [facility] [address] [place], [address] Hematocrit (Bld) [Volume fraction] 23.2 % Low 37-47 [facility] Comment on above: Performed By: #### L 501.5200, L500.2500, L501.9520, L501.4021 #### [facility] [address] [place], [address] Hemoglobin (Bld) [Mass/Vol] 7.4 g/dL Low 12.0-15.0 [facility] Comment on above: Performed By: #### L 501.5200, L500.2500, L501.9520, L501.4021 #### [facility] [address] [place], [address] MCH (RBC) [Entitic mass] 31.9 pg Normal 27.0-32.0 [facility] Comment on above: Performed By: #### L 501.5200, L500.2500, L501.9520, L501.4021 #### [facility] [address] [place], [address] MCHC (RBC) [Mass/Vol] 31.9 g/dL Low 32-36 [facility] Comment on above: Performed By: #### L 501.5200, L500.2500, L501.9520, L501.4021 #### [facility] [address] [place], [address] MCV (RBC) [Entitic vol] 100.0 fL High 81-99 [facility] Comment on above: Performed By: #### L 501.5200, L500.2500, L501.9520, L501.4021 #### [facility] [address] [place], [address] Platelet mean volume (Bld) [Entitic vol] 10.8 fL Normal 6.2-12.0 [facility] Comment on above: Performed By: #### L 501.5200, L500.2500, L501.9520, L501.4021 #### [facility] [address] [place], [address] Platelets (Bld) [#/Vol] 227 10*3/uL Normal 150-450 [facility] Comment on above: Performed By: #### L 501.5200, L500.2500, L501.9520, L501.4021 #### [facility] [address] [place], [address] RBC (Bld) [#/Vol] 2.32 10*6/uL Low 4.2-5.4 [facility] Comment on above: Performed By: #### L 501.5200, L500.2500, L501.9520, L501.4021 #### [facility] [address] [place], [address] RDW SD 55.1 fl High 35.1-43.9 [facility] Comment on above: Performed By: #### L 501.5200, L500.2500, L501.9520, L501.4021 #### [facility] [address] [place], [address] WBC (Bld) [#/Vol] 15.5 10*3/uL High 4.4-11.0 [facility] Comment on above: Performed By: #### L 501.5200, L500.2500, L501.9520, L501.4021 #### [facility] [address] [place], [address] Comprehensive Metabolic Prof [place] 07-10-2025 Albumin [Mass/Vol] 3.3 g/dL Low 3.4-4.8 [facility] Comment on above: Performed By: #### L 506.0200, L501.2300, L500.4050, L503.0106 ####[facility] [address] [place], [address] Albumin/Globulin [Mass ratio] 1.3 {ratio} Normal 0.9-2.4 [facility] Comment on above: Performed By: #### L 506.0200, L501.2300, L500.4050, L503.0106 ####[facility] [address] [place], [address] ALK PHOS 91 U/L Normal 35-104 [facility] Comment on above: Result Comment: AMENDED REPORT 07/10/25 0740 ALK P previously reported as: 92 U/L Performed By: #### L 506.0200, L501.2300, L500.4050, L503.0106 ####[facility] [address] [place], [address] ALT [Catalytic activity/Vol] 10 U/L Normal <=34 [facility] Comment on above: Result Comment: AMENDED REPORT 07/10/25739 ALT previously reported as: 11 U/L Performed By: #### L 506.0200, L501.2300, L500.4050, L503.0106 ####[facility] [address] [place], [address] AST [Catalytic activity/Vol] 14 U/L Normal <=31 [facility] Comment on above: Result Comment: AMENDED REPORT 07/10/25739 AST previously reported as: 13 U/L Performed By: #### L 506.0200, L501.2300, L500.4050, L503.0106 ####[facility] [address] [place], [address] Bilirubin [Mass/Vol] 0.25 mg/dL Normal 0.00-1.30 [facility] Comment on above: Result Comment: AMENDED REPORT 07/10/25739 T BILI previously reported as: 0.21 mg/dL Performed By: #### L 506.0200, L501.2300, L500.4050, L503.0106 ####[facility] [address] [place], [address] BUN/CRE 49.0 RATIO High 10-20 [facility] Comment on above: Result Comment: AMENDED REPORT 07/10/25739 BUN/CRE previously reported as: 47.1 H RATIO Performed By: #### L 506.0200, L501.2300, L500.4050, L503.0106 ####[facility] [address] [place], [address] Calcium [Mass/Vol] 8.9 mg/dL Normal 7.6-11.0 [facility] Comment on above: Result Comment: AMENDED REPORT 07/10/25739 CA previously reported as: 9.0 mg/dL Performed By: #### L 506.0200, L501.2300, L500.4050, L503.0106 ####[facility] [address] [place], [address] Chloride [Moles/Vol] 105 mmol/L Normal 98-108 [facility] Comment on above: Result Comment: AMENDED REPORT 07/10/25739 CL previously reported as: 104 mmol/L Performed By: #### L 506.0200, L501.2300, L500.4050, L503.0106 ####[facility] [address] [place], [address] CO2 [Moles/Vol] 21.9 mmol/L Normal 21.0-32.0 [facility] Comment on above: Result Comment: AMENDED REPORT 07/10/25739 CO2 previously reported as: 21.1 mmol/L Performed By: #### L 506.0200, L501.2300, L500.4050, L503.0106 ####[facility] [address] [place], [address] Creatinine [Mass/Vol] 0.91 mg/dL Normal 0.70-1.20 [facility] Comment on above: Result Comment: AMENDED REPORT 07/10/25739 CREAT,SERUM previously reported as: 0.96 mg/dL Performed By: #### L 506.0200, L501.2300, L500.4050, L503.0106 ####[facility] [address] [place], [address] ECRCL 62.58 ml/min Normal 50-250 [facility] Comment on above: Result Comment: AMENDED REPORT 07/10/25739 Estimated CRCL previously reported as: 59.32 ml/min Performed By: #### L 506.0200, L501.2300, L500.4050, L503.0106 ####[facility] [address] [place], [address] GAP 12 Normal 5-15 [facility] Comment on above: Performed By: #### L 506.0200, L501.2300, L500.4050, L503.0106 ####[facility] [address] [place], [address] Globulin (S) [Mass/Vol] 2.6 g/dL Normal 2.2-4.2 [facility] Comment on above: Performed By: #### L 506.0200, L501.2300, L500.4050, L503.0106 ####[facility] [address] [place], [address] Glucose [Mass/Vol] 111 mg/dL High 70-99 [facility] Comment on above: Result Comment: AMENDED REPORT 07/10/25 0740 GLU previously reported as: 114 H mg/dL Performed By: #### L 506.0200, L501.2300, L500.4050, L503.0106 ####[facility] [address] [place], [address] Potassium [Moles/Vol] 4.8 mmol/L Normal 3.3-5.1 [facility] Comment on above: Performed By: #### L 506.0200, L501.2300, L500.4050, L503.0106 ####[facility] [address] [place], [address] Sodium [Moles/Vol] 139 mmol/L Normal 133-145 [facility] Comment on above: Performed By: #### L 506.0200, L501.2300, L500.4050, L503.0106 ####[facility] [address] [place], [address] T PROT 5.9 g/dL Normal 5.9-8.4 [facility] Comment on above: Result Comment: AMENDED REPORT 07/10/25739 T PROT previously reported as: 5.8 L g/dL Performed By: #### L 506.0200, L501.2300, L500.4050, L503.0106 ####[facility] [address] [place], [address] Urea nitrogen [Mass/Vol] 44 mg/dL High 4-19 [facility] Comment on above: Result Comment: AMENDED REPORT 07/10/25739 BUN previously reported as: 45 H mg/dL Performed By: #### L 506.0200, L501.2300, L500.4050, L503.0106 ####[facility] [address] [place], [address] Ferritinon 07-10-2025 Ferritin [Mass/Vol] 156 ng/mL Normal 22-378 [facility] Comment on above: Order Comment: *ADD ON Performed By: #### L 501.5200, L500.2500, L501.9520, L501.4021 #### [facility] [address] [place], [address] Folate [Moles/volume] in Ser um or PlasmaOrdered By: Bro Leong on 07-10-2025 Folate [Moles/Vol] 19.50 ng/mL 4.60-34.80 [facility] Folates,Serum (Folic Acid)on 07-10-2025 FOLATES,SERUM 19.50 ng/mL Normal 4.60-34.80 [facility] Comment on above: Order Comment: N Performed By: #### L 501.5200, L500.2500, L501.9520, L501.4021 #### [facility] [address] [place], [address] H AND P Exam - [facility] 07-10-2025 H&P Exam - Hospitalist [facility] Medical Records Department [address] [place] [address] H P Exam - Hospitalist 07/10/25 0226 MR#: [id number] Acct: [id number] Name: BETSY LEE Rep #: [id number] : 1945 79 From: Bro Johnson DO PCP: Dr. Marciano Anaya, DO Status:ADM IN Location: [address] HPI - General General Date of Admission: 07/10/25 Date of Service: 07/10/25 Chief Complaint: SOB and Fatigue. HPI Narrative BETSY LEE, is a 79 F with a past medical history of essential hypertension; on amlodipine, furosemide, hydrochlorothiazide and metoprolol daily, hyperlipidemia; on atorvastatin, hypothyroidism; on levothyroxine, morbid obesity (class III); with BMI of 42.6 this admission, history of CAD; on baby aspirin daily, recently diagnosed atrial fibrillation; on apixaban twice daily, former tobacco abuse; with subsequent asthma/COPD, history of RA; on methotrexate, sulfasalazine plus as needed prednisone, history of squamous cell skin cancer, depression with anxiety; on venlafaxine, history of vertigo; on meclizine and OA; s/p bilateral THR's, bilateral TKR's, Right total shoulder replacement (2014) plus lumbar fusion (2012) with resultant chronic pain syndrome; on oxycodone as needed who presents to [facility] ER complaining of shortness of breath and fatigue. Ms. Lee reports her symptoms began on July 01, 2025 when she was to see her primary care doctor due to having chest tightness across the front of her chest and feeling fatigued with bilateral lower extremity edema culminating with the patient subsequently having EKG that revealed atrial fibrillation; with rapid ventricular response. She was then started on furosemide as well as apixaban without ensuing improvement. She states her shortness of breath is worse with new dyspnea on exertion that she denies shortness of breath at rest followed by the development of melanotic stool on July 09, 2025. Then earlier in the evening on July 10, 2025 she developed epigastric abdominal pain and nausea so she decided to come in for further evaluation and treatment. She denies associated fever, chills, runny nose, sore throat, ear pain, vomiting, constipation, chest pain, dysuria, hematuria, headache or rash. In the ER she was noted to have laboratory evidence of ABLA with hemoglobin of 8.9 g/dL present on admission (down from 11.9 g/dL on June 06, 2025) with a confirmatory elevated BUN of 37 mg/dL and normal creatinine of 1.11 mg/dL suggestive of Upper GI Bleed suspected to be due to Adverse Drug Reaction to recently started DOAC with corresponding CT scan of the abdomen pelvis that revealed hyperdense material noted in the dependent aspect of the gastric body with findings that may represent acute hemorrhage products complicated by EKG evidence of Atrial Fibrillation; with RVR that required treatment with IV metoprolol compounded by elevated NT pro-BNP II of 2,359 pg/mL present on admission consistent with AE CHF; with preserved LVEF with CT scan revealing interval appearance of mild bilateral pleural effusions with mild pericardial effusion along with additional laboratory evidence of Leukocytosis of 11.4 K present on admission suspect to be due to acute stress response with no signs of infection on UA or imaging. She was then admitted to the PCU for ongoing care for a stay that is expected to extend beyond 2 midnights. [facility] Medical History Atrial fibrillation Squamous cell skin cancer Skin lesion of hand Acute kidney injury Acute respiratory failure with hypoxia Lactic acidosis Vision disturbance Chronic pain syndrome Acute blood loss anemia Anxiety and depression Asthma HLD (hyperlipidemia) Morbid obesity GI bleed Hyperkalemia Hypertension History of rheumatoid arthritis Home Medications ???Medication ???Instructions ???Recorded ???Last Taken ???Type albuterol sulfate 90 mcg/actuation 1 - 2 puff inhalation Q6H PRN OH N 03/15/15 10/09/16 History aerosol inhaler (ProAir HFA) Shortness Of Breath hydrochlorothiazide 25 mg tablet 25 mg PO DAILY BP 03/15/152 0 11:00 History methotrexate sodium 2.5 mg tablet 20 mg PO MO Rheumatoid arthritis 03/15/15 09/18/20 History folic acid 1 mg tablet 1 mg PO DAILY@0800 #0 TABLETS 03/1109/19/20 11:00 Rx losartan 50 mg tablet 50 mg PO DAILY #30 TABLETS 5 09/19/20 11:00 Rx prednisone 10 mg tablet 10 mg PO PRN PRN arthritis flare u p 07/07/19 3 Days Ago History 09/16/20 sulfasalazine 500 mg tablet 1,000 mg PO BID arthritis 07/07/19 09/19/20 11:00 History venlafaxine 150 mg 150 mg PO DAILY depression/anxiety 07/07/19 09/19/20 11:00 History capsule,extended release 24 hr vitamins A,C,Q-tqod-wzceji 2,148 1 tab PO DAILY EYE HEALTH 07/07/19 09/19/20 11:00 History mcg-113 mg-45 (more content not included)... Normal [facility] Hemoglobin A1con 07-10-2025 HbA1c (Bld) [Mass fraction] 5.5 % Normal <=5.6 [facility] Comment on above: Result Comment: Norm al < 5.7 % Prediabetic 5.7 - 6.4 % Diabetic >or= 6.5 % Please note range changes. Performed By: #### L 501.5200, L500.2500, L501.9520, L501.4021 #### [facility] [address] [place], [place], [id number] Iron measurement (mass/mass) Ordered By: Bro Leong on 07-10-2025 Iron (Unsp spec) [Mass/Mass] 26 ug/dL Low 50-170 [facility] Iron+Iron Binding Capacityon 07-10-2025 TIBC 196 ug/dL Low 250-450 [facility] Comment on above: Order Comment: *ADD ON Performed By: #### L 501.5200, L500.2500, L501.9520, L501.4021 #### [facility] [address] [place], [place], [id number] Ketones Test strip Ql (U)Ord ered By: Arlin Guaman on 07-10-2025 Ketones Ql (U) Negative Negative [facility] - Chemistry and C hemistry - challengeOrdered By: Bro Leong on 07-10-2025 AST [Catalytic activity/Vol] 14 U/L <32 [facility] Comment on above: Previous reported re sult: 13 U/LEdited by: AUTOINS on 07/10/25:0740 AMENDED REPORT 07/10/25 0740 AST previously reported as: 13 U/L MR/CON.PCM.GIon 07-10-2025 MR/CON.PCM.GI [facility] Medical Records Department [address] [place] [address] Consultation - GI 07/10/25 1351 MR#: [id number] Acct: [id number] Name: BETSY LEE Rep #: [id number] : 1945 79 From: Cuauhtemoc Friend PCP: Dr. Marciano Anaya DO Status:ADM IN Location: [place] [address] HPI Consult Data Date of Consult: 07/11/25 HPI Narrative HPI Narrative: BETSY LEE, is a 79-year-old female presenting to the emergency department for dyspnea and melena. Patient has a past medical history of asthma/COPD reports stopped smoking years ago, CAD, obesity and recently diagnosed atrial fibrillation by her primary care doctor. She was just started on Eliquis about a week ago. She reports on 07/01 she went to see her primary care doctor due to having chest tightness across the front of her chest and feeling fatigued. She was also experiencing shortness of breath at this time. An EKG was done which showed atrial fibrillation. She was also having lower extremity edema at that time and was placed on Lasix as well as Eliquis. She also reports that she developed some epigastric abdominal pain and nausea followed by melanotic stool yesterday. On review last echo was September 2020 and showed an EF of 65%. She denies any fever, chills, cough, sore throat, chest pain, vomiting, dysuria or hematuria. [facility] Medical History Atrial fibrillation Squamous cell skin cancer Skin lesion of hand Acute kidney injury Acute respiratory failure with hypoxia Lactic acidosis Vision disturbance Chronic pain syndrome Acute blood loss anemia Anxiety and depression Asthma HLD (hyperlipidemia) Morbid obesity GI bleed Hyperkalemia Hypertension History of rheumatoid arthritis Home Medications ???Medication ???Instructions ???Recorded ???Last Taken ???Type albuterol sulfate 90 mcg/actuation 1 - 2 puff inhalation Q6H PRN [place] N 03/15/15 10/09/16 History aerosol inhaler (ProAir HFA) Shortness Of Breath hydrochlorothiazide 25 mg tablet 25 mg PO DAILY BP 03/15/15 0 11:00 History methotrexate sodium 2.5 mg tablet 20 mg PO MO Rheumatoid arthritis 03/15/15 09/18/20 History folic acid 1 mg tablet 1 mg PO DAILY@0800 #0 TABLETS 03/1109/19/20 11:00 Rx losartan 50 mg tablet 50 mg PO DAILY #30 TABLETS 5 09/19/20 11:00 Rx prednisone 10 mg tablet 10 mg PO PRN PRN arthritis flare u p 07/07/19 3 Days Ago History 09/16/20 sulfasalazine 500 mg tablet 1,000 mg PO BID arthritis 07/07/19 09/19/20 11:00 History venlafaxine 150 mg 150 mg PO DAILY depression/anxiety 07/07/19 09/19/20 11:00 History capsule,extended release 24 hr vitamins A,C,U-vqig-cdjpsn 2,148 1 tab PO DAILY EYE HEALTH 07/07/19 09/19/20 11:00 History mcg-113 mg-45 mg-17.4 mg tablet atorvastatin 20 mg tablet 20 mg PO DAILY CHOLESTEROL 0 09/19/20 11:00 History magnesium oxide 400 mg PO DAILY SUPPLEMENT 0 09/19/20 11:00 History aspirin 81 mg tablet,delayed 81 mg PO DAILY@0800 #30 tabs 09/20 Unknown Rx release levothyroxine 100 mcg tablet mcg PO 07/16/23 Unknown History meclizine 12.5 mg tablet mg PO 07/16/23 Unknown History oxycodone-acetaminophe n 10 mg-325 tab PO 07/16/23 Unknown History mg tablet amlodipine 5 mg tablet 5 mg PO DAILY 07/09/25 Unknown His tory apixaban 5 mg tablet (Eliquis) 5 mg PO BID 07/09/25 Unknown Histo ry atorvastatin 40 mg tablet 40 mg PO DAILY cholesterol 5 Unknown History furosemide 40 mg tablet 40 mg PO DAILY 07/09/25 Unknown Hi story metoprolol succinate 50 mg 50 mg PO DAILY 07/09/25 Unknown Hi story tablet,extended release 24 hr Allergy/AdvReac Type Severity Reaction Status Date / Time adhesive Allergy Other Verified 07/09/25 22:26 amoxicillin trihydrate (From Allergy Unknown Verified 07/09/25 22:26 Augmentin) latex Allergy Unknown Verified 07/09/25 22:26 Penicillins Allergy Unknown Verified 07/09/25 22:26 potassium clavulanate (From Allergy Unknown Verified 07/09/25 22:26 Augmentin) tetracycline Allergy Unknown Verified 07/09/25 22:26 Family History Sister Hypertension Brother Heart disease Surgical History History of hand surgery History of reverse total replacement of left shoulder joint History of tonsillectomy History of appendectomy History of tubal ligation History of knee replacement History of hip replacement History of back surgery Status post reverse total replacement of right shoulder Social History Smoking Status: Former smoker alcohol intake: current substance use type: does not use ROS Constitutional (more content not included)... Normal [facility] Microscopic analysis of urin e for red blood cells (RBC)Ordered By: Arlin Guaman on 07-10-2025 Microscopic analysis of urine for red blood cells (RBC) 0 SEEN /hpf 0-5 [facility] Mucus LM Ql (Urine sed)Order ed By: Arlin Guaman on 07-10-2025 Mucus Ql (Urine sed) 0 SEEN /hpf [facility] Nitrite Test strip Ql (U)Ord ered By: Arlin Guaman on 07-10-2025 Nitrite Ql (U) Negative Negative [facility] No Panel InformationOrdered By: Bro Leong on 07-10-2025 Unsaturated Iron Binding Capacity 170 ug/dL Low 228-428 [facility] Phosphoruson 07-10-2025 Phosphate [Mass/Vol] 2.4 mg/dL Low 2.7-4.5 [facility] Comment on above: Performed By: #### L 501.5200, L500.2500, L501.9520, L501.4021 #### [facility] [place], [address] Protein Test strip Ql (U)Ord ered By: Arlin Guaman on 07-10-2025 Protein Ql (U) 30 mg/dl High Negative [facility] Serum globulin measurementOr dered By: Bro Leong on 07-10-2025 Globulin (S) [Mass/Vol] 2.6 g/dL 2.2-4.2 [facility] Serum or plasma alanine duckworth otransferase (ALT) measurementOrdered By: Bro Leong on 07-10-2025 ALT [Catalytic activity/Vol] 10 U/L <35 [facility] Comment on above: Previous reported re sult: 11 U/LEdited by: AUTOINS on 07/10/25:0740 AMENDED REPORT 07/10/25739 ALT previously reported as: 11 U/L Serum or plasma albumin luis enrique urement (mass/volume)Ordered By: Bro Leong on 07-10-2025 Albumin [Mass/Vol] 3.3 g/dL Low 3.4-4.8 [facility] Serum or plasma albumin/glob ulin mass ratioOrdered By: Bro Leong on 07-10-2025 Albumin/Globulin [Mass ratio] 1.3 {ratio} 0.9-2.4 [facility] Serum or plasma alkaline carole sphatase measurementOrdered By: Bro Leong on 07-10-2025 ALP [Catalytic activity/Vol] 91 U/L 35-104 [facility] Comment on above: Previous reported re sult: 92 U/LEdited by: AUTOINS on 07/10/25:0740 AMENDED REPORT 07/10/25739 ALK P previously reported as: 92 U/L Serum or plasma ferritin carlos surement (mass/volume)Ordered By: Bro Leong on 07-10-2025 Ferritin [Mass/Vol] 156 ng/mL 22-378 [facility] Serum or plasma iron saturat ion measurement (mass fraction)Ordered By: Bro Leong on 07-10-2025 Iron saturation [Mass fraction] 13.3 % 13-59 [facility] Comment on above: Previous reported re sult: 13.0 %Edited by: JERAMY on 07/10/25:0321 AMENDED REPORT 07/10/25320 IRON SATURATION previously reported as: 13.0 % Squamous epithelial cells de tection in urine sediment by light microscopyOrdered By: Arlin Guaman on 07-10-2025 Epithelial cells.squamous LM Ql (Urine sed) 0 SEEN /hpf 5-10 [facility] TSH DL <= 0.005 mIU/L QnOrde red By: Bro Leong on 07-10-2025 TSH Qn 2.680 uIU/mL 0.300-4.200 [facility] Thyroid Stim Hormone (TSH)on 07-10-2025 TSH 2.680 uIU/mL Normal 0.300-4.200 [facility] Comment on above: Order Comment: *ADD ON Performed By: #### L 501.5200, L500.2500, L501.9520, L501.4021 #### [facility] Laboratory [address] [place], [place], [id number] Total proteinOrdered By: Lexx Leong on 07-10-2025 Protein [Mass/Vol] 5.9 g/dL 5.9-8.4 [facility] Comment on above: Previous reported re sult: 5.8 g/dLEdited by: HORACIO on 07/10/25:0740 AMENDED REPORT 07/10/25 0740 T PROT previously reported as: 5.8 L g/dL Troponin T HS 2 HRon 025 Trop T High Sen 14 ng/L Normal <=14 [facility] Comment on above: Performed By: #### L 501.5200, L500.2500, L501.9520, L501.4021 #### [facility] Laboratory [address] [place], [address] Troponin T HS 4 HRon 025 Trop T High Sen Normal <=14 [facility] Comment on above: Result Comment: Nitesh negron via OM: Ordered Performed By: #### L 501.5200, L500.2500, L501.9520, L501.4021 #### [facility] Laboratory [address] [place], [address] Troponin T.cardiac [Mass/vol ume] in Serum or Plasma by High sensitivity methodOrdered By: Arlin Guaman on 07-10-2025 Troponin T.cardiac High sensitivity method [Mass/Vol] 14 ng/L <14 [facility] Urinalysis, Completeon 07-10 BACTERIA 0 SEEN Normal None Seen [facility] Comment on above: Order Comment: CLEAN CATCH Performed By: #### L 501.5200, L500.2500, L501.9520, L501.4021 #### [facility] Laboratory [address] [place], [address] EPI,SQUAMOUS 0 SEEN Normal 5-10 [facility] Comment on above: Order Comment: CLEAN CATCH Performed By: #### L 501.5200, L500.2500, L501.9520, L501.4021 #### [facility] Laboratory [address] [place], [address] Mucus Ql (Urine sed) 0 SEEN Normal [facility] Comment on above: Order Comment: CLEAN CATCH Performed By: #### L 501.5200, L500.2500, L501.9520, L501.4021 #### [facility] Laboratory [address] [place], [address] RBC 0 SEEN Normal 0-5 [facility] Comment on above: Order Comment: CLEAN CATCH Performed By: #### L 501.5200, L500.2500, L501.9520, L501.4021 #### [facility] Laboratory [address] [place], [address] WBC 0 SEEN Normal 0-5 [facility] Comment on above: Order Comment: CLEAN CATCH Performed By: #### L 501.5200, L500.2500, L501.9520, L501.4021 #### [facility] Laboratory [address] [place], [place], [id number] Urine clarityOrdered By: Hannah Guaman on 07-10-2025 Clarity (U) Clear Clear [facility] Urine color determinationOrd ered By: Arlin Guaman on 07-10-2025 Color (U) Yellow Yellow [facility] Urine glucose detectionOrder ed By: Arlin Guaman on 07-10-2025 Glucose Ql (U) Normal mg/dl Normal [facility] Urine leukocyte esterase det ection by dipstickOrdered By: Arlin Guaman on 07-10-2025 Leukocyte esterase Test strip Ql (U) Negative Negative [facility] Urine pHOrdered By: Arlin negron on 07-10-2025 pH (U) 6.0 [pH] 5.0 - 8.0 [facility] Urine sediment bacteria coun t by microscopy (number/high power field)Ordered By: Arlin Guaman on 07-10-2025 Bacteria LM.HPF (Urine sed) [#/Area] 0 /[HPF] None Seen [facility] Urine specific gravity measu rementOrdered By: Arlin Guaman on 07-10-2025 Specific gravity (U) [Rel density] 1.010 1.002-1.030 [facility] Urine urobilinogen measureme ntOrdered By: Arlin Guaman on 07-10-2025 Urobilinogen Ql (U) Normal mg/dl Normal [facility] Vitamin B12on 07-10-2025 Cobalamin (Vitamin B12) [Mass/Vol] 256 pg/mL Normal 180-914 [facility] Comment on above: Result Comment: AMENDED REPORT 07/10/25 1550 Vitamin B12 previously reported as: 261 pg/mL Performed By: #### L 501.5200, L500.2500, L501.6955, L501.4027 #### [facility] Laboratory [address] [place], [place], [id number] Vitamin B12 ser/plasOrdered By: Bro Leong on 07-10-2025 Cobalamin (Vitamin B12) [Mass/Vol] 256 pg/mL 180-914 [facility] Comment on above: Previous reported re sult: 261 pg/mLEdited by: AUTOINS on 07/10/25:0740 AMENDED REPORT 07/10/25 0740 Vitamin B12 previously reported as: 261 pg/mL White blood cell countOrdere d By: Arlin Guaman on 07-10-2025 White blood cell count 0 SEEN /hpf 0-5 [facility] 12 Lead EKGon 07-09-2025 12 Lead EKG [facility] Cardiovascular Services [address] [place] [address] 12 Lead EKG 07/09/25 2229 MR#: [id number] Acct: [id number] Name: BETSY LEE Rep #: [id number] : 1945 79 From: Arturo Man MD Attending Dr: Dr. Marciano Castellanos DO Status: A DM IN Ordering Dr: Arlin Guaman MD Date: 07/09/25 Location: [facility] Sex: F C Admitted: 07/10/25 Test Reason : SOB Blood Pressure : */* mmHG Vent. Rate : 134 BPM Atrial Rate : * BPM P-R Int : * ms QRS Dur : 72 ms QT Int : 268 ms P-R-T Axes : * 32 105 degrees QTcB Int : 400 ms Atrial fibrillation with rapid ventricular response Abnormal QRS-T angle, consider primary T wave abnormality Abnormal ECG Confirmed by Arturo Man ([id number]), editor school photograph SARA CRUZ ([id number]) on 07/12/2025 10:34:01 AM Referred By: Confirmed By: Arturo Man 07/12/25 1034 Date Arturo Man MD CC: Dr. Arlin Guaman MD; Dr. Marciano Anaya DO; Dr. Marciano Castellanos DO Signed Normal [facility] Abdomen/Pelvis W IV Cont ONL Yon 07-09-2025 Abdomen/Pelvis W IV Cont ONLY [facility] Imaging Services [address] [place] [address] Abdomen/Pelvis W IV Cont ONLY MR#: [id number] Acct: [id number] Name: BETSY LEE Rep #: [id number] : 1945 F 79 From: Darby reed MD PCP: Dr. Marciano Anaya, DO Status: REG ER Study: Abdomen/Pelvis W IV Cont ONLY Date of Exam: Exam# [id number] Ordering Dr: Arlin Guaman MD PROCEDURE: ABDOMEN/PELVIS W IV CONT ONLY 07/09/2025 REASON FOR EXAM: ABDOMINAL PAIN, NAUSEA, MELENA TECHNIQUE: Procedure Code: CTABDPELIV Modality: CT Procedure: ABDOMEN/PELVIS W IV CONT ONLY Coronal and Sagittal reconstruction series were provided. CONTRAST: Isovue-350 VOLUME: 100 mL One or more dose reduction techniques were used (e.g., Automated exposure control, adjustment of the mA and/or kV according to patient size, use of iterative reconstruction technique. RADIATION DOSE SUMMARY: CTDlvol: 33.7 mGy DLP: 1738 mGycm COMPARISON: CT scan on 12/06/2020. FINDINGS: Interval appearance of mild pericardial effusion. Interval appearance of mild bilateral pleural effusions. Associated passive atelectatic airspace disease of the lower lobes. Hyperdense material is noted in the dependent aspect of the gastric body. Findings may represent acute hemorrhagic products. No precontrast images are provided to evaluate for active bleeding. Obtaining delayed phase images may increase the sensitivity of the exam. Scattered right renal simple cysts are noted with the largest measuring 1.5 cm. Fat containing umbilical hernia without incarceration. Uncomplicated colonic diverticulosis. Bilateral hip prostheses are noted. Moderate diffuse spondylosis. Unremarkable low lumbar fusion metallic hardware. Unchanged bilateral vascular calcifications in the kidneys. Chronic posterior soft tissue thickening overlying the sacrococcygeal junction, unchanged. Normal liver. Normal gallbladder and extrahepatic biliary system. Normal spleen. Normal pancreas. Normal bilateral adrenal glands. Normal size of the right kidney. There is no right renal mass. There are no right renal calculi. There is no right hydronephrosis. Normal visualized right ureter. Normal size of the left kidney. There is no left renal mass. There are no left renal calculi. There is no left hydronephrosis. Normal visualized left ureter. Normal small intestine. The appendix is visualized and appears normal. There is no demonstrated peritoneal fluid. Calcified atheromatous plaques of the abdominal aorta. Normal inferior vena cava. Normal retroperitoneum. There is no pelvic mass lesion or lymphadenopathy. There is no pelvic fluid. CT/Abdomen/Pelvis W IV Cont ONLY IMPRESSION: Interval appearance of mild pericardial effusion. Interval appearance of mild bilateral pleural effusions. Associated passive atelectatic airspace disease of the lower lobes. Hyperdense material is noted in the dependent aspect of the gastric body. Findings may represent acute hemorrhagic products. No precontrast images are provided to evaluate for active bleeding. Obtaining delayed phase images may increase the sensitivity of the exam to evaluate the significance of hyperdense material in the gastric lumen. Scattered right renal simple cysts are noted with the largest measuring 1.5 cm. Fat containing umbilical hernia without incarceration. Uncomplicated colonic diverticulosis. Bilateral hip prostheses are noted. Moderate diffuse spondylosis. Unremarkable low lumbar fusion metallic hardware. Unchanged bilateral vascular calcifications in the kidneys. Chronic posterior soft tissue thickening overlying the sacrococcygeal junction, unchanged. Reading Location: [place] [address] CC: Dr. Arlin Guaman MD; Dr. Marciano Anaya DO Air Hose Coupler: Signed Normal [facility] Absolute lymphocyte countOrd ered By: Arlin Guaman on 07-09-2025 Lymphocytes Auto (Unsp spec) [#/Vol] 1.96 10*3/uL 0.83-4.51 [facility] Absolute neutrophil countOrd ered By: Arlin Guaman on 07-09-2025 Neutrophils (Bld) [#/Vol] 8.9 10*3/uL High 2.0-7.7 [facility] Anion gap in Serum or Plasma Ordered By: Arlin Guaman on 07-09-2025 Anion gap [Moles/Vol] 18 mmol/L High 5-15 [facility] Automated lymphocyte count a s percentage of total leukocytesOrdered By: Arlin Guaman on 07-09-2025 Lymphocytes/100 WBC Auto (Unsp spec) 17.2 % Low 19-41 [facility] BRCon 07-09-2025 RC Normal [facility] Comment on above: Result Comment: [id number] AP RC TRANSFUSED 07/10/251730 [id number] AP RC TRANSFUSED 07/10/251951 Performed By: #### B RC ####[facility] [address] [place], [address] BUN/creatinine ratioOrdered By: Arlinjose f Guaman on 07-09-2025 Urea nitrogen/Creatinine [Mass ratio] 33.1 mg/mg High 10-20 [facility] Basophil percentageOrdered B y: Arlin Coleer on 07-09-2025 Basophils/100 WBC (Bld) 0.9 % 0-1 [facility] Bilirubin, totalOrdered By: Arlinjose f Guaman on 07-09-2025 Bilirubin [Mass/Vol] 0.31 mg/dL 0.00-1.30 [facility] CBC W/Diff, Automatedon 06-12 0-2024 Absolute Lymph 1.96 X10 3/uL Normal 0.83-4.51 [facility] Comment on above: Performed By: #### L 501.5200, L500.2500, L501.9520, L501.4021 #### [facility] Laboratory [address] [place], [address] Absolute Neut 8.9 X10 3/uL High 2.0-7.7 [facility] Comment on above: Performed By: #### L 501.5200, L500.2500, L501.9520, L501.4021 #### [facility] Laboratory [address] [place], [address] Basophils/100 WBC (Bld) 0.9 % Normal 0-1 [facility] Comment on above: Performed By: #### L 501.5200, L500.2500, L501.9520, L501.4021 #### [facility] Laboratory [address] [place], [address] Eosinophils/100 WBC (Bld) 0.2 % Normal 0-5 [facility] Comment on above: Performed By: #### L 501.5200, L500.2500, L501.9520, L501.4021 #### [facility] Laboratory [address] [place], [address] Erythrocyte distribution width (RBC) [Ratio] 15.5 % High 11.6-14.6 [facility] Comment on above: Performed By: #### L 501.5200, L500.2500, L501.9520, L501.4021 #### [facility] Laboratory [address] [place], [address] Hematocrit (Bld) [Volume fraction] 28.3 % Low 37-47 [facility] Comment on above: Performed By: #### L 501.5200, L500.2500, L501.9520, L501.4021 #### [facility] Laboratory [address] [place], [address] Hemoglobin (Bld) [Mass/Vol] 8.9 g/dL Low 12.0-15.0 [facility] Comment on above: Performed By: #### L 501.5200, L500.2500, L501.9520, L501.4021 #### [facility] Laboratory [address] [place], [address] IG% 0.700 Normal 0.0-0.9 [facility] Comment on above: Result Comment: IG% - Immature Granulocytes (promyelocytes, myelocytes and metamyelocytes) > 1% indicates that a LEFT SHIFT is Present. Performed By: #### L 501.5200, L500.2500, L501.9520, L501.4021 #### [facility] Laboratory [address] [place], [address] Lymphocytes/100 WBC (Bld) 17.2 % Low 19-41 [facility] Comment on above: Performed By: #### L 501.5200, L500.2500, L501.9520, L501.4021 #### [facility] Laboratory [address] [place], [address] MCH (RBC) [Entitic mass] 31.6 pg Normal 27.0-32.0 [facility] Comment on above: Performed By: #### L 501.5200, L500.2500, L501.9520, L501.4021 #### [facility] Laboratory [address] [place], [address] MCHC (RBC) [Mass/Vol] 31.4 g/dL Low 32-36 [facility] Comment on above: Performed By: #### L 501.5200, L500.2500, L501.9520, L501.4021 #### [facility] Laboratory [address] [place], [address] MCV (RBC) [Entitic vol] 100.4 fL High 81-99 [facility] Comment on above: Performed By: #### L 501.5200, L500.2500, L501.9520, L501.4021 #### [facility] Laboratory [address] [place], [address] Monocytes/100 WBC (Bld) 2.7 % Normal 0-10 [facility] Comment on above: Performed By: #### L 501.5200, L500.2500, L501.9520, L501.4021 #### [facility] Laboratory [address] [place], [address] Neutrophils/100 WBC (Bld) 78.3 % High 47-70 [facility] Comment on above: Performed By: #### L 501.5200, L500.2500, L501.9520, L501.4021 #### [facility] Laboratory [address] [place], [address] Nucleated RBC (Bld) [#/Vol] 0.2 10*3/uL Normal 0-5 [facility] Comment on above: Performed By: #### L 501.5200, L500.2500, L501.9520, L501.4021 #### [facility] Laboratory [address] [place], [address] Platelet mean volume (Bld) [Entitic vol] 11.1 fL Normal 6.2-12.0 [facility] Comment on above: Performed By: #### L 501.5200, L500.2500, L501.9520, L501.4021 #### [facility] Laboratory [address] [place], [address] Platelets (Bld) [#/Vol] 274 10*3/uL Normal 150-450 [facility] Comment on above: Performed By: #### L 501.5200, L500.2500, L501.9520, L501.4021 #### [facility] Laboratory [address] [place], [address] RBC (Bld) [#/Vol] 2.82 10*6/uL Low 4.2-5.4 [facility] Comment on above: Performed By: #### L 501.5200, L500.2500, L501.9520, L501.4021 #### [facility] Laboratory [address] [place], [address] RDW SD 55.7 fl High 35.1-43.9 [facility] Comment on above: Performed By: #### L 501.5200, L500.2500, L501.9520, L501.4021 #### [facility] Laboratory [address] [place], [address] WBC (Bld) [#/Vol] 11.4 10*3/uL High 4.4-11.0 [facility] Comment on above: Performed By: #### L 501.5200, L500.2500, L501.9520, L501.4021 #### [facility] Laboratory [address] [place], [address] Carbon dioxide, total [Moles /volume] in Central venous bloodOrdered By: Arlin Guaman on 07-09-2025 CO2 [Moles/Vol] 18.9 mmol/L Low 21.0-32.0 [facility] Chest PA and Lateralon 07-09 Chest PA and Lateral [facility] Imaging Services [address] [place] [address] Chest PA and Lateral MR#: [id number] Acct: [id number] Name: BETSY LEE Rep #: [id number] : 1945 F 79 From: Leonard Hooks MD PCP: Dr. Marciano Anaya DO Status: REG ER Study: Chest PA and Lateral Date of Exam: 07/09/25 Exam# [id number] Ordering Dr: Arlin Guaman MD PROCEDURE: CHEST PA AND LATERAL 07/09/2025 REASON FOR EXAM: CHEST PAIN TECHNIQUE: Procedure Code: RADCXR Modality: DX Procedure: CHEST PA AND LATERAL COMPARISON: 02/17/2020 FINDINGS: Hardware: None. Heart: The heart size is normal. Mediastinum: The mediastinal contour is unremarkable. Lungs: The lungs are clear. Bones: Bilateral shoulder arthroplasty. No acute fractures. RAD/Chest PA and Lateral IMPRESSION: NO ACUTE FINDINGS. Reading Location: [facility] CC: Dr. Arlin Guaman MD; Dr. Marciano Anaya DO Air Hose Coupler: Signed Normal [facility] Chloride assayOrdered By: Sameer Guaman on 07-09-2025 Chloride [Moles/Vol] 102 mmol/L 98-108 [facility] Comprehensive Metabolic Prof ilon 07-09-2025 Albumin [Mass/Vol] 3.5 g/dL Normal 3.4-4.8 [facility] Comment on above: Performed By: #### L 501.5200, L500.2500, L501.9520, L501.4021 #### [facility] Laboratory [address] [place], [address] Albumin/Globulin [Mass ratio] 1.4 {ratio} Normal 0.9-2.4 [facility] Comment on above: Performed By: #### L 501.5200, L500.2500, L501.9520, L501.4021 #### [facility] Laboratory [address] [place], [address] ALK PHOS 100 U/L Normal 35-104 [facility] Comment on above: Performed By: #### L 501.5200, L500.2500, L501.9520, L501.4021 #### [facility] Laboratory [address] [place], [address] ALT [Catalytic activity/Vol] 13 U/L Normal <=34 [facility] Comment on above: Performed By: #### L 501.5200, L500.2500, L501.9520, L501.4021 #### [facility] Laboratory [address] [place], [address] AST [Catalytic activity/Vol] 14 U/L Normal <=31 [facility] Comment on above: Performed By: #### L 501.5200, L500.2500, L501.9520, L501.4021 #### [facility] Laboratory [address] [place], [address] Bilirubin [Mass/Vol] 0.31 mg/dL Normal 0.00-1.30 [facility] Comment on above: Performed By: #### L 501.5200, L500.2500, L501.9520, L501.4021 #### [facility] Laboratory [address] [place], [address] BUN/CRE 33.1 RATIO High 10-20 [facility] Comment on above: Performed By: #### L 501.5200, L500.2500, L501.9520, L501.4021 #### [facility] Laboratory [address] [place], [address] Calcium [Mass/Vol] 9.0 mg/dL Normal 7.6-11.0 [facility] Comment on above: Performed By: #### L 501.5200, L500.2500, L501.9520, L501.4021 #### [facility] Laboratory [address] [place], [address] Chloride [Moles/Vol] 102 mmol/L Normal 98-108 [facility] Comment on above: Performed By: #### L 501.5200, L500.2500, L501.9520, L501.4021 #### [facility] Laboratory [address] [place], [address] CO2 [Moles/Vol] 18.9 mmol/L Low 21.0-32.0 [facility] Comment on above: Performed By: #### L 501.5200, L500.2500, L501.9520, L501.4021 #### [facility] Laboratory [address] [place], [address] Creatinine [Mass/Vol] 1.11 mg/dL Normal 0.70-1.20 [facility] Comment on above: Performed By: #### L 501.5200, L500.2500, L501.9520, L501.4021 #### [facility] Laboratory [address] [place], [address] ECRCL 52.29 ml/min Normal 50-250 [facility] Comment on above: Performed By: #### L 501.5200, L500.2500, L501.9520, L501.4021 #### [facility] Laboratory [address] [place], [address] GAP 18 High 5-15 [facility] Comment on above: Performed By: #### L 501.5200, L500.2500, L501.9520, L501.4021 #### [facility] Laboratory [address] [place], [address] GFR/1.73 sq M.predicted among non-blacks MDRD (S/P/Bld) [Vol rate/Area] 51 mL/min/{1.73_m2} Low >60 [facility] Comment on above: Result Comment: mL/m in/1.73m2 CKD-EPI Creatinine Equation (2020) Performed By: #### L 501.5200, L500.2500, L501.9520, L501.4021 #### [facility] Laboratory [address] [place], [address] Globulin (S) [Mass/Vol] 2.5 g/dL Normal 2.2-4.2 [facility] Comment on above: Performed By: #### L 501.5200, L500.2500, L501.9520, L501.4021 #### [facility] Laboratory [address] [place], [address] Glucose [Mass/Vol] 195 mg/dL High 70-99 [facility] Comment on above: Performed By: #### L 501.5200, L500.2500, L501.9520, L501.4021 #### [facility] Laboratory [address] [place], [address] Potassium [Moles/Vol] 4.9 mmol/L Normal 3.3-5.1 [facility] Comment on above: Performed By: #### L 501.5200, L500.2500, L501.9520, L501.4021 #### [facility] Laboratory [address] [place], [address] Sodium [Moles/Vol] 138 mmol/L Normal 133-145 [facility] Comment on above: Performed By: #### L 501.5200, L500.2500, L501.9520, L501.4021 #### [facility] Laboratory [address] [place], [address] T PROT 6.0 g/dL Normal 5.9-8.4 [facility] Comment on above: Performed By: #### L 501.5200, L500.2500, L501.9520, L501.4021 #### [facility] Laboratory [address] [place], [address] Urea nitrogen [Mass/Vol] 37 mg/dL High 4- [facility] Comment on above: Performed By: #### L 501.5200, L500.2500, L501.9520, L501.4021 #### [facility] Laboratory [address] [place], [address] Emergency Department Summary on 07-09-2025 Emergency Department Summary [facility] Medical Records Department [address] [place] [address] Emergency Department Summary 07/09/25 MR#: [id number] Acct: [id number] Name: BETSY LEE Rep #: [id number] : [id number] From: Arlin Guaman MD PCP: Dr. Marciano Anaya, Status:REG ER Location: ED HPI History of Present Illness Chief Complaint: Shortness of Breath Narrative Narrative: Patient is a 79-year-old female presenting to the emergency department for dyspnea and melena. Patient has a past medical history of asthma/COPD reports stopped smoking years ago, CAD, obesity and recently diagnosed atrial fibrillation by her primary care doctor. She reports on 07/01 she went to see her primary care doctor due to having chest tightness across the front of her chest and feeling fatigued. She was also experiencing shortness of breath at this time. An EKG was done which showed atrial fibrillation. She was also having lower extremity edema at that time and was placed on Lasix as well as Eliquis. She states that since then the dyspnea has not improved. She denies any chest pain since seeing her physician a week ago. Reports that the shortness of breath is worse with exertion and at rest she does not feel short of breath. Denies feeling any palpitations. Also reports that this evening she developed some epigastric abdominal pain and nausea which is now resolved but did start having melanotic stool yesterday. Again she was just started on Eliquis about a week ago. On review last echo was September 2020 and showed an EF of 65%. She denies any fever, chills, cough, sore throat, chest pain, vomiting, dysuria or hematuria. [facility] Medical History Atrial fibrillation Squamous cell skin cancer Skin lesion of hand Acute kidney injury Acute respiratory failure with hypoxia Lactic acidosis Vision disturbance Chronic pain syndrome Acute blood loss anemia Anxiety and depression Asthma HLD (hyperlipidemia) Morbid obesity GI bleed Hyperkalemia Hypertension History of rheumatoid arthritis Home Medications ???Medication ???Instructions ???Recorded ???Last Taken ???Type albuterol sulfate 90 mcg/actuation 1 - 2 puff inhalation Q6H PRN OH N 03/15/15 10/09/16 History aerosol inhaler (ProAir HFA) Shortness Of Breath hydrochlorothiazide 25 mg tablet 25 mg PO DAILY BP 03/15/15 0 11:00 History methotrexate sodium 2.5 mg tablet 20 mg PO MO Rheumatoid arthritis 03/15/15 09/18/20 History folic acid 1 mg tablet 1 mg PO DAILY@0800 #0 TABLETS 03/1109/19/20 11:00 Rx losartan 50 mg tablet 50 mg PO DAILY #30 TABLETS 5 09/19/20 11:00 Rx prednisone 10 mg tablet 10 mg PO PRN PRN arthritis flare u p 07/07/19 3 Days Ago History 09/16/20 sulfasalazine 500 mg tablet 1,000 mg PO BID arthritis 07/07/19 09/19/20 11:00 History venlafaxine 150 mg 150 mg PO DAILY depression/anxiety 07/07/19 09/19/20 11:00 History capsule,extended release 24 hr vitamins A,C,S-gilg-wcetki 2,148 1 tab PO DAILY EYE HEALTH 07/07/19 09/19/20 11:00 History mcg-113 mg-45 mg-17.4 mg tablet atorvastatin 20 mg tablet 20 mg PO DAILY CHOLESTEROL 0 09/19/20 11:00 History magnesium oxide 400 mg PO DAILY SUPPLEMENT 0 09/19/20 11:00 History aspirin 81 mg tablet,delayed 81 mg PO DAILY@0800 #30 tabs 09/20 Unknown Rx release levothyroxine 100 mcg tablet mcg PO 07/16/23 Unknown History meclizine 12.5 mg tablet mg PO 07/16/23 Unknown History oxycodone-acetaminophe n 10 mg-325 tab PO 07/16/23 Unknown History mg tablet amlodipine 5 mg tablet 5 mg PO DAILY 07/09/25 Unknown His tory apixaban 5 mg tablet (Eliquis) 5 mg PO BID 07/09/25 Unknown Histo ry atorvastatin 40 mg tablet 40 mg PO DAILY cholesterol 5 Unknown History furosemide 40 mg tablet 40 mg PO DAILY 07/09/25 Unknown Hi story metoprolol succinate 50 mg 50 mg PO DAILY 07/09/25 Unknown Hi story tablet,extended release 24 hr Allergy/AdvReac Type Severity Reaction Status Date / Time adhesive Allergy Other Verified 07/09/25 22:26 amoxicillin trihydrate (From Allergy Unknown Verified 07/09/25 22:26 Augmentin) latex Allergy Unknown Verified 07/09/25 22:26 Penicillins Allergy Unknown Verified 07/09/25 22:26 potassium clavulanate (From Allergy Unknown Verified 07/09/25 22:26 Augmentin) tetracycline Allergy Unknown Verified 07/09/25 22:26 Family History Sister Hypertension Brother Heart disease Surgical History History of hand surgery History of reverse total replacement of left shoulder joint History of tonsillectomy History of appendectomy History of tubal ligation History of knee replacement History of h (more content not included)... Normal [facility] Eosinophil percentageOrdered By: Arlin Guaman on 07-09-2025 Eosinophils/100 WBC (Bld) 0.2 % 0-5 [facility] Erythrocyte distribution wid th ratioOrdered By: Arlin Guaman on 07-09-2025 Erythrocyte distribution width (RBC) [Ratio] 15.5 % High 11.6-14.6 [facility] Erythrocyte distribution wid th standard deviationOrdered By: Arlin Guaman on 07-09-2025 Erythrocyte distribution width (RBC) [Ratio] 55.7 fl High 35.1-43.9 [facility] Glomerular filtration rate ( GFR) estimation/1.73 sq m using serum, plasma, or whole bOrdered By: Arlin Guaman on 07-09-2025 GFR/1.73 sq M.predicted among non-blacks MDRD (S/P/Bld) [Vol rate/Area] 51 mL/min/{1.73_m2} Low >60 [facility] Comment on above: mL/min/1.73m2 CKD-EP I Creatinine Equation (2020) Hematocrit Auto (Bld) [Volum e fraction]Ordered By: Arlin Guaman on 07-09-2025 Hematocrit (Bld) [Volume fraction] 28.3 % Low 37-47 [facility] Hemoglobin A1c percentageOrd ered By: Bro Leong on 07-09-2025 HbA1c (Bld) [Mass fraction] 5.5 % <5.7 [facility] Comment on above: Normal < 5.7 % Predi abetic 5.7 - 6.4 % Diabetic >or= 6.5 % Please note range changes. Hemoglobin measurementOrdere d By: Arlin Guaman on 07-09-2025 Hemoglobin (Bld) [Mass/Vol] 8.9 g/dL Low 12.0-15.0 [facility] Immature granulocytes/100 WB C Auto (Bld)Ordered By: Arlin Guaman on 07-09-2025 Immature granulocytes/100 WBC (Bld) 0.700 % 0.0-0.9 [facility] Comment on above: IG% - Immature Granu locytes (promyelocytes, myelocytes and metamyelocytes) > 1% indicates that a LEFT SHIFT is Present. L501.4021on 07-09-2025 Trop T High Sen 20 ng/L High <=14 [facility] Comment on above: Performed By: #### L 501.5200, L500.2500, L501.9520, L501.4021 #### [facility] Laboratory [address] [place], [address] Laboratory - Chemistry and C hemistry - challengeOrdered By: Arlin Guaman on 07-09-2025 AST [Catalytic activity/Vol] 14 U/L <32 [facility] Lipaseon 07-09-2025 Lipase [Catalytic activity/Vol] 31 U/L Normal 13-75 [facility] Comment on above: Result Comment: Omer sr note: LIPASE revised reference range effective 23. New Lipase methodology. Expected to produce lower values than the previous assay method. NEW Reference Range: 13 - 75 U/L Performed By: #### L 501.5200, L500.2500, L501.9520, L501.4021 #### [facility] [address] [place], [place], [id number] Lipase measurementOrdered By : Arlin Guaman on 07-09-2025 Lipase [Catalytic activity/Vol] 31 U/L 13-75 [facility] Comment on above: Please note:LIPASE r evised reference range effective 23. New Lipase methodology. Expected to produce lower values than the previous assay method. NEW Reference Range: 13 - 75 U/L MCV (mean corpuscular volume ) determinationOrdered By: Arlin Guaman on 07-09-2025 MCV (RBC) [Entitic vol] 100.4 fL High 81-99 [facility] Magnesiumon 07-09-2025 Magnesium [Mass/Vol] 1.9 mg/dL Normal 1.5-2.2 [facility] Comment on above: Performed By: #### L 501.5200, L500.2500, L501.9520, L501.4021 #### [facility] [address] [place], [address] Magnesium measurement (mass/ volume)Ordered By: Arlin Guaman on 07-09-2025 Magnesium (Unsp spec) [Mass/Vol] 1.9 mg/dL 1.5-2.2 [facility] Mean corpuscular hemoglobin (MCH) determinationOrdered By: Arlin Guaman on 07-09-2025 MCH (RBC) [Entitic mass] 31.6 pg 27.0-32.0 [facility] Mean corpuscular hemoglobin concentration (MCHC) determinationOrdered By: Arlin Guaman on 07-09-2025 MCHC (RBC) [Mass/Vol] 31.4 g/dL Low 32-36 [facility] Mean platelet volume determi nationOrdered By: Arlin Guaman on 07-09-2025 Platelet mean volume (Bld) [Entitic vol] 11.1 fL 6.2-12.0 [facility] Monocyte percentageOrdered B y: Arlin Guaman on 07-09-2025 Monocytes/100 WBC (Bld) 2.7 % 0-10 [facility] Natriuretic peptide.B prohor maulik N-Terminal [Mass/volume] in Serum or PlasmaOrdered By: Arlin Guaman on 07-09-2025 Natriuretic peptide.B prohormone N-Terminal [Mass/Vol] 2359 pg/mL High <1800 [facility] Comment on above: Heart Failure Unlike ly: < 300 pg/mLHeart Failure Likely< 50 Years: > 450 pg/mL50-75 Years: > 900 pg/mL>75 Years: > 1800 pg/mL Neutrophil percentageOrdered By: Arlin Guaman on 07-09-2025 Neutrophils/100 WBC (Bld) 78.3 % High 47-70 [facility] Nucleated red blood cell per centageOrdered By: Arlin Guaman on 07-09-2025 Nucleated RBC/100 WBC (Bld) [Ratio] 0.2 % 0-5 [facility] Platelet countOrdered By: Sameer Guaman on 07-09-2025 Platelets (Bld) [#/Vol] 274 10*3/uL 150-450 [facility] Potassium measurement (mass/ volume)Ordered By: Arlin Guaman on 07-09-2025 Potassium (Unsp spec) [Mass/Vol] 4.9 mmol/L 3.3-5.1 [facility] Pro- Brain NATRIURETIC PEPTI Leena 07-09-2025 Natriuretic peptide B (Bld) [Mass/Vol] 2359 pg/mL High <=1800 [facility] Comment on above: Result Comment: Hear t Failure Unlikely: < 300 pg/mL Heart Failure Likely < 50 Years: > 450 pg/mL 50-75 Years: > 900 pg/mL >75 Years: > 1800 pg/mL Performed By: #### L 501.5200, L500.2500, L501.9520, L501.4021 #### [facility] [address] [place], [address] RBC Auto (Bld) [#/Vol]Ordere d By: Arlin Guaman on 07-09-2025 RBC (Bld) [#/Vol] 2.82 10*6/uL Low 4.2-5.4 [facility] Serum creatinine measurement (mass/volume)Ordered By: Arlin Guaman on 07-09-2025 Creatinine [Mass/Vol] 1.11 mg/dL 0.70-1.20 [facility] Serum globulin measurementOr dered By: Arlin Guaman on 07-09-2025 Globulin (S) [Mass/Vol] 2.5 g/dL 2.2-4.2 [facility] Serum glucose measurement (m ass/volume)Ordered By: Arlin Guaman on 07-09-2025 Glucose [Mass/Vol] 195 mg/dL High 70-99 [facility] Serum or plasma alanine duckworth otransferase (ALT) measurementOrdered By: Arlin Guaman on 07-09-2025 ALT [Catalytic activity/Vol] 13 U/L <35 [facility] Serum or plasma albumin luis enrique urement (mass/volume)Ordered By: Arlin Gauman on 07-09-2025 Albumin [Mass/Vol] 3.5 g/dL 3.4-4.8 [facility] Serum or plasma albumin/glob ulin mass ratioOrdered By: Arlin Guaman on 07-09-2025 Albumin/Globulin [Mass ratio] 1.4 {ratio} 0.9-2.4 [facility] Serum or plasma alkaline carole sphatase measurementOrdered By: Arlin Guaman on 07-09-2025 ALP [Catalytic activity/Vol] 100 U/L 35-104 [facility] Serum or plasma calcium luis enrique urement (mass/volume)Ordered By: Arlin Guaman on 07-09-2025 Calcium [Mass/Vol] 9.0 mg/dL 7.6-11.0 [facility] Serum or plasma urea nitroge n measurement (mass/volume)Ordered By: Arlin Guaman on 07-09-2025 Urea nitrogen [Mass/Vol] 37 mg/dL High 4-19 [facility] Sodium levelOrdered By: Marcus Guaman on 07-09-2025 Sodium [Moles/Vol] 138 mmol/L 133-145 [facility] Stool Occult Blood iFOBon STOB Positive Normal [facility] Comment on above: Performed By: #### L 501.7600, L500.2500, L501.4812, L501.7899 #### [facility] Laboratory [address] [place], [place], [id number] Stool gastrointestinal hemog lobin detection by immunologic methodOrdered By: Arlin Guaman on 07-09-2025 Lower GI hemoglobin IA Ql (Stl) Positive Abnormal [facility] Total proteinOrdered By: Hannah Guaman on 07-09-2025 Protein [Mass/Vol] 6.0 g/dL 5.9-8.4 [facility] Troponin T.cardiac [Mass/vol ume] in Serum or Plasma by High sensitivity methodOrdered By: Arlin Guaman on 07-09-2025 Troponin T.cardiac High sensitivity method [Mass/Vol] 20 ng/L High <14 [facility] Comment on above: Delta: 11 on 5-1057 Type AND Screenon 07-09-2025 ABO and Rh group Nom (Bld) Blood group A Rh(D) positive Normal [facility] Comment on above: Order Comment: A Performed By: #### B TS ####[facility] [id number] [place], [place], [id number] White blood cell (WBC) count Ordered By: Arlin Guaman on 07-09-2025 WBC (Bld) [#/Vol] 11.4 10*3/uL High 4.4-11.0 [facility] Anion gap in Serum or Plasma Ordered By: Marciano Anaya on 07-05-2025 Anion gap [Moles/Vol] 12 mmol/L 5- [facility] BUN/creatinine ratioOrdered By: Marciano Anaya on 07-05-2025 Urea nitrogen/Creatinine [Mass ratio] 19.4 mg/mg 10- [facility] Basic Metabolic Profile (BMP )on 07-05-2025 BUN/CRE 19.4 RATIO Normal 08-29 [facility] Comment on above: Performed By: #### L 501.5200, L500.2500, L501.9520, L501.4021 #### [facility] Laboratory [address] [place], [place], [id number] Calcium [Mass/Vol] 9.2 mg/dL Normal 7.6-11.0 [facility] Comment on above: Performed By: #### L 501.5200, L500.2500, L501.9520, L501.4021 #### [facility] [address] [place], [address] Chloride [Moles/Vol] 106 mmol/L Normal 98-108 [facility] Comment on above: Performed By: #### L 501.5200, L500.2500, L501.9520, L501.4021 #### [facility] [address] [place], [address] CO2 [Moles/Vol] 22.5 mmol/L Normal 21.0-32.0 [facility] Comment on above: Performed By: #### L 501.5200, L500.2500, L501.9520, L501.4021 #### [facility] [address] [place], [address] Creatinine [Mass/Vol] 0.91 mg/dL Normal 0.70-1.20 [facility] Comment on above: Performed By: #### L 501.5200, L500.2500, L501.9520, L501.4021 #### [facility] [address] [place], [address] GAP 12 Normal 5-15 [facility] Comment on above: Performed By: #### L 501.5200, L500.2500, L501.9520, L501.4021 #### [facility] [address] [place], [address] GFR/1.73 sq M.predicted among non-blacks MDRD (S/P/Bld) [Vol rate/Area] 65 mL/min/{1.73_m2} Normal >60 [facility] Comment on above: Result Comment: mL/m in/1.73m2 CKD-EPI Creatinine Equation (2020) Performed By: #### L 501.5200, L500.2500, L501.9520, L501.4021 #### [facility] [address] [place], [address] Glucose [Mass/Vol] 83 mg/dL Normal 70-99 [facility] Comment on above: Performed By: #### L 501.5200, L500.2500, L501.9520, L501.4021 #### [facility] [address] [place], [address] Potassium [Moles/Vol] 4.3 mmol/L Normal 3.3-5.1 [facility] Comment on above: Performed By: #### L 501.5200, L500.2500, L501.9520, L501.4021 #### [facility] [address] [place], [address] Sodium [Moles/Vol] 140 mmol/L Normal 133-145 [facility] Comment on above: Performed By: #### L 501.5200, L500.2500, L501.9520, L501.4021 #### [facility] [address] [place], [address] Urea nitrogen [Mass/Vol] 18 mg/dL Normal 4-19 [facility] Comment on above: Performed By: #### L 501.5200, L500.2500, L501.9520, L501.4021 #### [facility] [address] [place], [address] Carbon dioxide, total [Moles /volume] in Central venous bloodOrdered By: Marciano Anaya on 07-05-2025 CO2 [Moles/Vol] 22.5 mmol/L 21.0-32.0 [facility] Chloride assayOrdered By: Shelia Anaya on 07-05-2025 Chloride [Moles/Vol] 106 mmol/L 98-108 [facility] Glomerular filtration rate ( GFR) estimation/1.73 sq m using serum, plasma, or whole bOrdered By: Marciano Anaya on 07-05-2025 GFR/1.73 sq M.predicted among non-blacks MDRD (S/P/Bld) [Vol rate/Area] 65 mL/min/{1.73_m2} >60 [facility] Comment on above: mL/min/1.73m2 CKD-EP I Creatinine Equation (2020) Natriuretic peptide.B prohor maulik N-Terminal [Mass/volume] in Serum or PlasmaOrdered By: Marciano Anaya on 07-05-2025 Natriuretic peptide.B prohormone N-Terminal [Mass/Vol] 2575 pg/mL High <1800 [facility] Comment on above: Heart Failure Unlike ly: < 300 pg/mLHeart Failure Likely< 50 Years: > 450 pg/mL50-75 Years: > 900 pg/mL>75 Years: > 1800 pg/mL Potassium measurement (mass/ volume)Ordered By: Marciano Anaya on 07-05-2025 Potassium (Unsp spec) [Mass/Vol] 4.3 mmol/L 3.3-5.1 [facility] Pro- Brain NATRIURETIC PEPTI Leena 07-05-2025 Natriuretic peptide B (Bld) [Mass/Vol] 2575 pg/mL High <=1800 [facility] Comment on above: Result Comment: Hear t Failure Unlikely: < 300 pg/mL Heart Failure Likely < 50 Years: > 450 pg/mL 50-75 Years: > 900 pg/mL >75 Years: > 1800 pg/mL Performed By: #### L 501.5200, L500.2500, L501.9520, L501.4021 #### [facility] [address] [place], [address] Serum creatinine measurement (mass/volume)Ordered By: Marciano Anaya on 07-05-2025 Creatinine [Mass/Vol] 0.91 mg/dL 0.70-1.20 [facility] Serum glucose measurement (m ass/volume)Ordered By: Marciano Anaya on 07-05-2025 Glucose [Mass/Vol] 83 mg/dL 70-99 [facility] Serum or plasma calcium luis enrique urement (mass/volume)Ordered By: Marciano Anaya on 07-05-2025 Calcium [Mass/Vol] 9.2 mg/dL 7.6-11.0 [facility] Serum or plasma urea nitroge n measurement (mass/volume)Ordered By: Marciano Anaya on 07-05-2025 Urea nitrogen [Mass/Vol] 18 mg/dL - [facility] Sodium levelOrdered By: Marciano Anaya on 07-05-2025 Sodium [Moles/Vol] 140 mmol/L 133-145 [facility] Anion gap in Serum or Plasma Ordered By: Marciano Anaya on 07-01-2025 Anion gap [Moles/Vol] 14 mmol/L 03-24 [facility] BUN/creatinine ratioOrdered By: Marciano Anaya on 07-01-2025 Urea nitrogen/Creatinine [Mass ratio] 16.0 mg/mg 08-29 [facility] Basic Metabolic Profile (BMP )on 07-01-2025 BUN/CRE 16.0 RATIO Normal 08-29 [facility] Comment on above: Performed By: #### L 501.5200, L500.2500, L501.9520, L501.4021 #### [facility] [address] [place], [address] Calcium [Mass/Vol] 9.4 mg/dL Normal 7.6-11.0 [facility] Comment on above: Performed By: #### L 501.5200, L500.2500, L501.9520, L501.4021 #### [facility] [address] [place], [address] Chloride [Moles/Vol] 104 mmol/L Normal 98-108 [facility] Comment on above: Performed By: #### L 501.5200, L500.2500, L501.9520, L501.4021 #### [facility] [address] [place], [address] CO2 [Moles/Vol] 22.5 mmol/L Normal 21.0-32.0 [facility] Comment on above: Performed By: #### L 501.5200, L500.2500, L501.9520, L501.4021 #### [facility] [address] [place], [address] Creatinine [Mass/Vol] 0.99 mg/dL Normal 0.70-1.20 [facility] Comment on above: Performed By: #### L 501.5200, L500.2500, L501.9520, L501.4021 #### [facility] [address] [place], [address] GAP 14 Normal 5-15 [facility] Comment on above: Performed By: #### L 501.5200, L500.2500, L501.9520, L501.4021 #### [facility] [address] [place], [address] GFR/1.73 sq M.predicted among non-blacks MDRD (S/P/Bld) [Vol rate/Area] 58 mL/min/{1.73_m2} Low >60 [facility] Comment on above: Result Comment: mL/m in/1.73m2 CKD-EPI Creatinine Equation (2020) Performed By: #### L 501.5200, L500.2500, L501.9520, L501.4021 #### [facility] [address] [place], [address] Glucose [Mass/Vol] 89 mg/dL Normal 70-99 [facility] Comment on above: Performed By: #### L 501.5200, L500.2500, L501.9520, L501.4021 #### [facility] [address] [place], [address] Potassium [Moles/Vol] 4.5 mmol/L Normal 3.3-5.1 [facility] Comment on above: Performed By: #### L 501.5200, L500.2500, L501.9520, L501.4021 #### [facility] [address] [place], [address] Sodium [Moles/Vol] 141 mmol/L Normal 133-145 [facility] Comment on above: Performed By: #### L 501.5200, L500.2500, L501.9520, L501.4021 #### [facility] [address] [place], [address] Urea nitrogen [Mass/Vol] 16 mg/dL Normal 4-19 [facility] Comment on above: Performed By: #### L 501.5200, L500.2500, L501.9520, L501.4021 #### [facility] [address] [place], [address] Carbon dioxide, total [Moles /volume] in Central venous bloodOrdered By: Marciano Anaya on 07-01-2025 CO2 [Moles/Vol] 22.5 mmol/L 21.0-32.0 [facility] Chloride assayOrdered By: Shelia Anaya on 07-01-2025 Chloride [Moles/Vol] 104 mmol/L 98-108 [facility] Glomerular filtration rate ( GFR) estimation/1.73 sq m using serum, plasma, or whole bOrdered By: Marciano Anaya on 07-01-2025 GFR/1.73 sq M.predicted among non-blacks MDRD (S/P/Bld) [Vol rate/Area] 58 mL/min/{1.73_m2} Low >60 [facility] Comment on above: mL/min/1.73m2 CKD-EP I Creatinine Equation (2020) L501.4021on 07-01-2025 Trop T High Sen 11 ng/L Normal <=14 [facility] Comment on above: Performed By: #### L 501.5200, L500.2500, L501.9520, L501.4021 #### [facility] [address] [place], [address] Magnesiumon 07-01-2025 Magnesium [Mass/Vol] 2.3 mg/dL High 1.5-2.2 [facility] Comment on above: Performed By: #### L 501.5200, L500.2500, L501.9520, L501.4021 #### [facility] [address] [place], [place], [id number] Magnesium measurement (mass/ volume)Ordered By: Marciano Anaya on 07-01-2025 Magnesium (Unsp spec) [Mass/Vol] 2.3 mg/dL High 1.5-2.2 [facility] Potassium measurement (mass/ volume)Ordered By: Marciano Anaya on 07-01-2025 Potassium (Unsp spec) [Mass/Vol] 4.5 mmol/L 3.3-5.1 [facility] Serum creatinine measurement (mass/volume)Ordered By: Marciano Anaya on 07-01-2025 Creatinine [Mass/Vol] 0.99 mg/dL 0.70-1.20 [facility] Serum glucose measurement (m ass/volume)Ordered By: Marciano Anaya on 07-01-2025 Glucose [Mass/Vol] 89 mg/dL 70-99 [facility] Serum or plasma calcium luis enrique urement (mass/volume)Ordered By: Marciano Anaya on 07-01-2025 Calcium [Mass/Vol] 9.4 mg/dL 7.6-11.0 [facility] Serum or plasma urea nitroge n measurement (mass/volume)Ordered By: Marciano Anaya on 07-01-2025 Urea nitrogen [Mass/Vol] 16 mg/dL 4-19 [facility] Sodium levelOrdered By: Marciano Anaya on 07-01-2025 Sodium [Moles/Vol] 141 mmol/L 133-145 [facility] TSH DL <= 0.005 mIU/L QnOrde red By: Marciano Anaya on 07-01-2025 TSH Qn 3.190 uIU/mL 0.300-4.200 [facility] Thyroid Stim Hormone (TSH)on 07-01-2025 TSH 3.190 uIU/mL Normal 0.300-4.200 [facility] Comment on above: Performed By: #### L 501.5200, L500.2500, L501.9520, L501.4021 #### [facility] Laboratory [address] [place], [address] Troponin T.cardiac [Mass/vol ume] in Serum or Plasma by High sensitivity methodOrdered By: Marciano Anaya on 07-01-2025 Troponin T.cardiac High sensitivity method [Mass/Vol] 11 ng/L <14 [facility] Absolute lymphocyte countOrd ered By: Aminashelia Palomo on 06-06-2025 Lymphocytes Auto (Unsp spec) [#/Vol] 2.41 10*3/uL 0.83-4.51 [facility] Absolute neutrophil countOrd ered By: Aminashelia Palomo on 06-06-2025 Neutrophils (Bld) [#/Vol] 4.4 10*3/uL 2.0-7.7 [facility] Anion gap in Serum or Plasma Ordered By: Amina Palomo on 06-06-2025 Anion gap [Moles/Vol] 11 mmol/L 5-15 [facility] Automated lymphocyte count a s percentage of total leukocytesOrdered By: Amina Palomo on 06-06-2025 Lymphocytes/100 WBC Auto (Unsp spec) 27.5 % 19- [facility] BUN/creatinine ratioOrdered By: [facility] on 06-06-2025 Urea nitrogen/Creatinine [Mass ratio] 19.3 mg/mg 10- [facility] Basophil percentageOrdered B y: Amina Palomo on 06-06-2025 Basophils/100 WBC (Bld) 0.9 % 0-1 [facility] Bilirubin, totalOrdered By: Amina Palomo on 06-06-2025 Bilirubin [Mass/Vol] 0.29 mg/dL 0.00-1.30 [facility] CBC W/Diff, Automatedon 05-11 Absolute Lymph 2.41 X10 3/uL Normal 0.83-4.51 [facility] Comment on above: Performed By: #### L 501.5200, L500.2500, L501.9520, L501.4021 #### [facility] Laboratory [address] [place], [address] Absolute Neut 4.4 X10 3/uL Normal 2.0-7.7 [facility] Comment on above: Performed By: #### L 501.5200, L500.2500, L501.9520, L501.4021 #### [facility] Laboratory [address] [place], [address] Basophils/100 WBC (Bld) 0.9 % Normal 0-1 [facility] Comment on above: Performed By: #### L 501.5200, L500.2500, L501.9520, L501.4021 #### [facility] Laboratory [address] [place], [address] Eosinophils/100 WBC (Bld) 10.0 % High 0-5 [facility] Comment on above: Performed By: #### L 501.5200, L500.2500, L501.9520, L501.4021 #### [facility] Laboratory [address] [place], [address] Erythrocyte distribution width (RBC) [Ratio] 16.9 % High 11.6-14.6 [facility] Comment on above: Performed By: #### L 501.5200, L500.2500, L501.9520, L501.4021 #### [facility] Laboratory [address] [place], [address] Hematocrit (Bld) [Volume fraction] 39.1 % Normal 37-47 [facility] Comment on above: Performed By: #### L 501.5200, L500.2500, L501.9520, L501.4021 #### [facility] Laboratory [address] [place], [address] Hemoglobin (Bld) [Mass/Vol] 11.9 g/dL Low 12.0-15.0 [facility] Comment on above: Performed By: #### L 501.5200, L500.2500, L501.9520, L501.4021 #### [facility] Laboratory [address] [place], [address] IG% 0.500 Normal 0.0-0.9 [facility] Comment on above: Result Comment: IG% - Immature Granulocytes (promyelocytes, myelocytes and metamyelocytes) > 1% indicates that a LEFT SHIFT is Present. Performed By: #### L 501.5200, L500.2500, L501.9520, L501.4021 #### [facility] Laboratory [address] [place], [address] Lymphocytes/100 WBC (Bld) 27.5 % Normal 19-41 [facility] Comment on above: Performed By: #### L 501.5200, L500.2500, L501.9520, L501.4021 #### [facility] Laboratory [address] [place], [address] MCH (RBC) [Entitic mass] 30.7 pg Normal 27.0-32.0 [facility] Comment on above: Performed By: #### L 501.5200, L500.2500, L501.9520, L501.4021 #### [facility] Laboratory [address] [place], [address] MCHC (RBC) [Mass/Vol] 30.4 g/dL Low 32-36 [facility] Comment on above: Performed By: #### L 501.5200, L500.2500, L501.9520, L501.4021 #### [facility] Laboratory [address] [place], [address] MCV (RBC) [Entitic vol] 100.8 fL High 81-99 [facility] Comment on above: Performed By: #### L 501.5200, L500.2500, L501.9520, L501.4021 #### [facility] Laboratory [address] [place], [address] Monocytes/100 WBC (Bld) 10.7 % High 0-10 [facility] Comment on above: Performed By: #### L 501.5200, L500.2500, L501.9520, L501.4021 #### [facility] Laboratory [address] [place], [address] Neutrophils/100 WBC (Bld) 50.4 % Normal 47-70 [facility] Comment on above: Performed By: #### L 501.5200, L500.2500, L501.9520, L501.4021 #### [facility] Laboratory [address] [place], [address] Nucleated RBC (Bld) [#/Vol] 0 10*3/uL Normal 0-5 [facility] Comment on above: Performed By: #### L 501.5200, L500.2500, L501.9520, L501.4021 #### [facility] Laboratory [address] [place], [address] Platelet mean volume (Bld) [Entitic vol] 10.9 fL Normal 6.2-12.0 [facility] Comment on above: Performed By: #### L 501.5200, L500.2500, L501.9520, L501.4021 #### [facility] Laboratory [address] [place], [address] Platelets (Bld) [#/Vol] 226 10*3/uL Normal 150-450 [facility] Comment on above: Performed By: #### L 501.5200, L500.2500, L501.9520, L501.4021 #### [facility] Laboratory [address] [place], [address] RBC (Bld) [#/Vol] 3.88 10*6/uL Low 4.2-5.4 [facility] Comment on above: Performed By: #### L 501.5200, L500.2500, L501.9520, L501.4021 #### [facility] Laboratory [address] [place], [address] RDW SD 60.9 fl High 35.1-43.9 [facility] Comment on above: Performed By: #### L 501.5200, L500.2500, L501.9520, L501.4021 #### [facility] Laboratory [address] [place], [address] WBC (Bld) [#/Vol] 8.8 10*3/uL Normal 4.4-11.0 [facility] Comment on above: Performed By: #### L 501.5200, L500.2500, L501.9520, L501.4021 #### [facility] Laboratory [address] [place], [address] Carbon dioxide, total [Moles /volume] in Central venous bloodOrdered By: Amina Palomo on 06-06-2025 CO2 [Moles/Vol] 27.0 mmol/L 21.0-32.0 [facility] Chloride assayOrdered By: Chente Palomo on 06-06-2025 Chloride [Moles/Vol] 105 mmol/L 98-108 [facility] Comprehensive Metabolic Prof ilon 06-06-2025 Albumin [Mass/Vol] 3.7 g/dL Normal 3.4-4.8 [facility] Comment on above: Performed By: #### L 501.5200, L500.2500, L501.9520, L501.4021 #### [facility] Laboratory [address] [place], [address] Albumin/Globulin [Mass ratio] 1.3 {ratio} Normal 0.9-2.4 [facility] Comment on above: Performed By: #### L 501.5200, L500.2500, L501.9520, L501.4021 #### [facility] Laboratory [address] [place], [address] ALK PHOS 140 U/L High 35-104 [facility] Comment on above: Performed By: #### L 501.5200, L500.2500, L501.9520, L501.4021 #### [facility] [address] [place], [address] ALT [Catalytic activity/Vol] 23 U/L Normal <=34 [facility] Comment on above: Performed By: #### L 501.5200, L500.2500, L501.9520, L501.4021 #### [facility] Laboratory [address] [place], [address] AST [Catalytic activity/Vol] 21 U/L Normal <=31 [facility] Comment on above: Performed By: #### L 501.5200, L500.2500, L501.9520, L501.4021 #### [facility] Laboratory [address] [place], [address] Bilirubin [Mass/Vol] 0.29 mg/dL Normal 0.00-1.30 [facility] Comment on above: Performed By: #### L 501.5200, L500.2500, L501.9520, L501.4021 #### [facility] Laboratory [address] [place], [address] BUN/CRE 19.3 RATIO Normal 10-20 [facility] Comment on above: Performed By: #### L 501.5200, L500.2500, L501.9520, L501.4021 #### [facility] Laboratory [address] [place], [address] Calcium [Mass/Vol] 9.4 mg/dL Normal 7.6-11.0 [facility] Comment on above: Performed By: #### L 501.5200, L500.2500, L501.9520, L501.4021 #### [facility] Laboratory [address] [place], [address] Chloride [Moles/Vol] 105 mmol/L Normal 98-108 [facility] Comment on above: Performed By: #### L 501.5200, L500.2500, L501.9520, L501.4021 #### [facility] Laboratory [address] [place], [address] CO2 [Moles/Vol] 27.0 mmol/L Normal 21.0-32.0 [facility] Comment on above: Performed By: #### L 501.5200, L500.2500, L501.9520, L501.4021 #### [facility] [address] [place], [address] Creatinine [Mass/Vol] 0.89 mg/dL Normal 0.70-1.20 [facility] Comment on above: Performed By: #### L 501.5200, L500.2500, L501.9520, L501.4021 #### [facility] Laboratory [address] [place], [address] GAP 11 Normal 5-15 [facility] Comment on above: Performed By: #### L 501.5200, L500.2500, L501.9520, L501.4021 #### [facility] Laboratory [address] [place], [address] GFR/1.73 sq M.predicted among non-blacks MDRD (S/P/Bld) [Vol rate/Area] 66 mL/min/{1.73_m2} Normal >60 [facility] Comment on above: Result Comment: mL/m in/1.73m2 CKD-EPI Creatinine Equation (2020) Performed By: #### L 501.5200, L500.2500, L501.9520, L501.4021 #### [facility] Laboratory [address] [place], [address] Globulin (S) [Mass/Vol] 2.8 g/dL Normal 2.2-4.2 [facility] Comment on above: Performed By: #### L 501.5200, L500.2500, L501.9520, L501.4021 #### [facility] Laboratory [address] [place], [address] Glucose [Mass/Vol] 77 mg/dL Normal 70-99 [facility] Comment on above: Performed By: #### L 501.5200, L500.2500, L501.9520, L501.4021 #### [facility] Laboratory [address] [place], [address] Potassium [Moles/Vol] 4.7 mmol/L Normal 3.3-5.1 [facility] Comment on above: Performed By: #### L 501.5200, L500.2500, L501.9520, L501.4021 #### [facility] Laboratory [address] [place], [address] Sodium [Moles/Vol] 143 mmol/L Normal 133-145 [facility] Comment on above: Performed By: #### L 501.5200, L500.2500, L501.9520, L501.4021 #### [facility] Laboratory [address] [place], [address] T PROT 6.5 g/dL Normal 5.9-8.4 [facility] Comment on above: Performed By: #### L 501.5200, L500.2500, L501.9520, L501.4021 #### [facility] Laboratory [address] [place], [address] Urea nitrogen [Mass/Vol] 17 mg/dL Normal 4-19 [facility] Comment on above: Performed By: #### L 501.5200, L500.2500, L501.9520, L501.4021 #### [facility] [address] [place], [address] Eosinophil percentageOrdered By: Amina Palomo on 06-06-2025 Eosinophils/100 WBC (Bld) 10.0 % High 0-5 [facility] Erythrocyte distribution wid th ratioOrdered By: Amina Palomo on 06-06-2025 Erythrocyte distribution width (RBC) [Ratio] 16.9 % High 11.6-14.6 [facility] Erythrocyte distribution wid th standard deviationOrdered By: Amina Palomo on 06-06-2025 Erythrocyte distribution width (RBC) [Ratio] 60.9 fl High 35.1-43.9 [facility] Glomerular filtration rate ( GFR) estimation/1.73 sq m using serum, plasma, or whole bOrdered By: Amina Palomo on 06-06-2025 GFR/1.73 sq M.predicted among non-blacks MDRD (S/P/Bld) [Vol rate/Area] 66 mL/min/{1.73_m2} >60 [facility] Comment on above: mL/min/1.73m2 CKD-EP I Creatinine Equation (2020) Hematocrit Auto (Bld) [Volum e fraction]Ordered By: Amina Palomo on 06-06-2025 Hematocrit (Bld) [Volume fraction] 39.1 % 37-47 [facility] Hemoglobin measurementOrdere d By: Amina Palomo on 06-06-2025 Hemoglobin (Bld) [Mass/Vol] 11.9 g/dL Low 12.0-15.0 [facility] Immature granulocytes/100 WB C Auto (Bld)Ordered By: Amina Palomo on 06-06-2025 Immature granulocytes/100 WBC (Bld) 0.500 % 0.0-0.9 [facility] Comment on above: IG% - Immature Granu locytes (promyelocytes, myelocytes and metamyelocytes) > 1% indicates that a LEFT SHIFT is Present. Laboratory - Chemistry and C hemistry - challengeOrdered By: Amina Palomo on 06-06-2025 AST [Catalytic activity/Vol] 21 U/L <32 [facility] MCV (mean corpuscular volume ) determinationOrdered By: Amina Palomo 06-06-2025 MCV (RBC) [Entitic vol] 100.8 fL High 81-99 [facility] Mean corpuscular hemoglobin (MCH) determinationOrdered By: Amina Palomo 06-06-2025 MCH (RBC) [Entitic mass] 30.7 pg 27.0-32.0 [facility] Mean corpuscular hemoglobin concentration (MCHC) determinationOrdered By: Amina Palomo on 06-06-2025 MCHC (RBC) [Mass/Vol] 30.4 g/dL Low 32-36 [facility] Mean platelet volume determi nationOrdered By: Amina Palomo on 06-06-2025 Platelet mean volume (Bld) [Entitic vol] 10.9 fL 6.2-12.0 [facility] Monocyte percentageOrdered B y: Amina Palomo on 06-06-2025 Monocytes/100 WBC (Bld) 10.7 % High 0-10 [facility] Neutrophil percentageOrdered By: Amina Palomo on 06-06-2025 Neutrophils/100 WBC (Bld) 50.4 % 47-70 [facility] Nucleated red blood cell per centageOrdered By: Amina Palomo on 06-06-2025 Nucleated RBC/100 WBC (Bld) [Ratio] 0 % 0-5 [facility] Platelet countOrdered By: Chente Palomo on 06-06-2025 Platelets (Bld) [#/Vol] 226 10*3/uL 150-450 [facility] Potassium measurement (mass/ volume)Ordered By: Amina Palomo on 06-06-2025 Potassium (Unsp spec) [Mass/Vol] 4.7 mmol/L 3.3-5.1 [facility] RBC Auto (Bld) [#/Vol]Ordere d By: Amina Palomo on 06-06-2025 RBC (Bld) [#/Vol] 3.88 10*6/uL Low 4.2-5.4 [facility] Serum creatinine measurement (mass/volume)Ordered By: Amina Palomo on 06-06-2025 Creatinine [Mass/Vol] 0.89 mg/dL 0.70-1.20 [facility] Serum globulin measurementOr dered By: Amina Palomo on 06-06-2025 Globulin (S) [Mass/Vol] 2.8 g/dL 2.2-4.2 [facility] Serum glucose measurement (m ass/volume)Ordered By: Amina Palomo on 06-06-2025 Glucose [Mass/Vol] 77 mg/dL 70-99 [facility] Serum or plasma alanine duckworth otransferase (ALT) measurementOrdered By: Amina Palomo on 06-06-2025 ALT [Catalytic activity/Vol] 23 U/L <35 [facility] Serum or plasma albumin luis enrique urement (mass/volume)Ordered By: Amina Palomo on 06-06-2025 Albumin [Mass/Vol] 3.7 g/dL 3.4-4.8 [facility] Serum or plasma albumin/glob ulin mass ratioOrdered By: Amina Palomo on 06-06-2025 Albumin/Globulin [Mass ratio] 1.3 {ratio} 0.9-2.4 [facility] Serum or plasma alkaline carole sphatase measurementOrdered By: Amina Palomo on 06-06-2025 ALP [Catalytic activity/Vol] 140 U/L High 35-104 [facility] Serum or plasma calcium luis enrique urement (mass/volume)Ordered By: Amina Palomo on 06-06-2025 Calcium [Mass/Vol] 9.4 mg/dL 7.6-11.0 [facility] Serum or plasma urea nitroge n measurement (mass/volume)Ordered By: Amina Palomo on 06-06-2025 Urea nitrogen [Mass/Vol] 17 mg/dL 4-19 [facility] Sodium levelOrdered By: Annabella Palomo on 06-06-2025 Sodium [Moles/Vol] 143 mmol/L 133-145 [facility] Total proteinOrdered By: Dale Palomo on 06-06-2025 Protein [Mass/Vol] 6.5 g/dL 5.9-8.4 [facility] White blood cell (WBC) count Ordered By: Amina Palomo on 06-06-2025 WBC (Bld) [#/Vol] 8.8 10*3/uL 4.4-11.0 [facility] HIP, UNI W/ Pelvis 2-3 Views on 03-25-2025 HIP, UNI W/ Pelvis 2-3 Views [facility] Services [address] [place], [place] [address] HIP, UNI W/ Pelvis 2-3 Views MR#: [id number] Acct: [id number] Name: BETSY LEE Rep #: [id number] : 1945 F 79 From: Eriberto Tadeo MD PCP: Dr. Marciano Anaya DO Status: REG CLI Study: HIP, UNI W/ Pelvis 2-3 Views Date of Exam: Exam# [id number] Ordering Dr: Amina Palomo MD PROCEDURE: HIP, [...] Views IMPRESSION: Findings as above. Reading Location: [id number] CC: Dr. Marciano Anaya DO; Dr. Amina Palomo MD Air Hose Coupler: Signed Normal [facility] Absolute lymphocyte countOrd ered By: Amina Palomo on 03-18-2025 Lymphocytes Auto (Unsp spec) [#/Vol] 2.10 10*3/uL 0.83-4.51 [facility] Absolute neutrophil countOrd ered By: Amina Palomo on 03-18-2025 Neutrophils (Bld) [#/Vol] 4.9 10*3/uL 2.0-7.7 [facility] Anion gap in Serum or Plasma Ordered By: Amina Palomo on 03-18-2025 Anion gap [Moles/Vol] 10 mmol/L 5-15 [facility] Automated blood erythrocyte countOrdered By: Amina Palomo on 03-18-2025 RBC (Bld) [#/Vol] 4.04 10*6/uL Low 4.2-5.4 [facility] Comment on above: Performed By: #### L 100.0100, L500.4050 #### [facility] Laboratory [address] [place], [address] Automated blood hematocrit ( percentage)Ordered By: Amina Palomo on 03-18-2025 Hematocrit (Bld) [Volume fraction] 39.6 % Normal 37-47 [facility] Comment on above: Performed By: #### L 100.0100, L500.4050 #### [facility] [address] [place], [address] Automated lymphocyte count a s percentage of total leukocytesOrdered By: Amina Palomo on 03-18-2025 Lymphocytes/100 WBC Auto (Unsp spec) 26.2 % 19-41 [facility] BUN/creatinine ratioOrdered By: Aminashelia Palomo on 03-18-2025 Urea nitrogen/Creatinine [Mass ratio] 20.9 mg/mg High 10-20 [facility] Basophil percentageOrdered B y: Amina Palomo on 03-18-2025 Basophils/100 WBC (Bld) 1.0 % Normal 0-1 [facility] Comment on above: Performed By: #### L 100.0100, L500.4050 #### [facility] [address] [place], [place], [id number] [phone] Bilirubin, totalOrdered By: Amina Palomo on 03-18-2025 Bilirubin [Mass/Vol] 0.35 mg/dL 0.00-1.30 [facility] CBC W/Diff, Automatedon Absolute Lymph 2.10 X10 3/uL Normal 0.83-4.51 [facility] Comment on above: Performed By: #### L 100.0100, L500.4050 #### [facility] Laboratory [address] [place], [address] Absolute Neut 4.9 X10 3/uL Normal 2.0-7.7 [facility] Comment on above: Performed By: #### L 100.0100, L500.4050 #### [facility] [address] [place], [address] IG% 0.400 Normal 0.0-0.9 [facility] Comment on above: Result Comment: IG% - Immature Granulocytes (promyelocytes, myelocytes and metamyelocytes) > 1% indicates that a LEFT SHIFT is Present. Performed By: #### L 100.0100, L500.4050 #### [facility] [address] [place], [address] Lymphocytes/100 WBC (Bld) 26.2 % Normal 19-41 [facility] Comment on above: Performed By: #### L 100.0100, L500.4050 #### [facility] [address] [place], [address] Nucleated RBC (Bld) [#/Vol] 0 10*3/uL Normal 0-5 [facility] Comment on above: Performed By: #### L 100.0100, L500.4050 #### [facility] [address] [place], [address] RDW SD 60.0 fl High 35.1-43.9 [facility] Comment on above: Performed By: #### L 100.0100, L500.4050 #### [facility] [address] [place], [address] Carbon dioxide, total [Moles /volume] in Central venous bloodOrdered By: Amina Palomo on 03-18-2025 CO2 [Moles/Vol] 26.4 mmol/L 21.0-32.0 [facility] Chloride assayOrdered By: Chente Palomo on 03-18-2025 Chloride [Moles/Vol] 104 mmol/L 98-108 [facility] Comprehensive Metabolic Prof ilon 03-18-2025 Albumin [Mass/Vol] 3.8 g/dL Normal 3.4-4.8 [facility] Comment on above: Performed By: #### L 100.0100, L500.4050 #### [facility] [address] [place], [address] Albumin/Globulin [Mass ratio] 1.3 {ratio} Normal 0.9-2.4 [facility] Comment on above: Performed By: #### L 100.0100, L500.4050 #### [facility] [address] [place], [address] ALK PHOS 130 U/L High 35-104 [facility] Comment on above: Performed By: #### L 100.0100, L500.4050 #### [facility] [address] [place], [address] ALT [Catalytic activity/Vol] 29 U/L Normal <=34 [facility] Comment on above: Performed By: #### L 100.0100, L500.4050 #### [facility] [address] [place], [address] AST [Catalytic activity/Vol] 30 U/L Normal <=31 [facility] Comment on above: Performed By: #### L 100.0100, L500.4050 #### [facility] [address] [place], [address] Bilirubin [Mass/Vol] 0.35 mg/dL Normal 0.00-1.30 [facility] Comment on above: Performed By: #### L 100.0100, L500.4050 #### [facility] [address] [place], [address] BUN/CRE 20.9 RATIO High 10-20 [facility] Comment on above: Performed By: #### L 100.0100, L500.4050 #### [facility] [address] [place], [address] Calcium [Mass/Vol] 9.4 mg/dL Normal 7.6-11.0 [facility] Comment on above: Performed By: #### L 100.0100, L500.4050 #### [facility] [address] [place], [address] Chloride [Moles/Vol] 104 mmol/L Normal 98-108 [facility] Comment on above: Performed By: #### L 100.0100, L500.4050 #### [facility] [address] [place], [address] CO2 [Moles/Vol] 26.4 mmol/L Normal 21.0-32.0 [facility] Comment on above: Performed By: #### L 100.0100, L500.4050 #### [facility] [address] [place], [address] Creatinine [Mass/Vol] 0.88 mg/dL Normal 0.70-1.20 [facility] Comment on above: Performed By: #### L 100.0100, L500.4050 #### [facility] [address] [place], [address] GAP 10 Normal 5-15 [facility] Comment on above: Performed By: #### L 100.0100, L500.4050 #### [facility] [address] [place], [address] GFR/1.73 sq M.predicted among non-blacks MDRD (S/P/Bld) [Vol rate/Area] 67 mL/min/{1.73_m2} Normal >60 [facility] Comment on above: Result Comment: mL/m in/1.73m2 CKD-EPI Creatinine Equation (2020) Performed By: #### L 100.0100, L500.4050 #### [facility] [address] [place], [address] Globulin (S) [Mass/Vol] 2.9 g/dL Normal 2.2-4.2 [facility] Comment on above: Performed By: #### L 100.0100, L500.4050 #### [facility] [address] [place], [address] Glucose [Mass/Vol] 122 mg/dL High 70-99 [facility] Comment on above: Performed By: #### L 100.0100, L500.4050 #### [facility] [address] [place], [address] Potassium [Moles/Vol] 4.6 mmol/L Normal 3.3-5.1 [facility] Comment on above: Performed By: #### L 100.0100, L500.4050 #### [facility] [address] [place], [address] Sodium [Moles/Vol] 140 mmol/L Normal 133-145 [facility] Comment on above: Performed By: #### L 100.0100, L500.4050 #### [facility] [address] [place], [address] T PROT 6.6 g/dL Normal 5.9-8.4 [facility] Comment on above: Performed By: #### L 100.0100, L500.4050 #### [facility] [address] [place], [address] Urea nitrogen [Mass/Vol] 18 mg/dL Normal 4-19 [facility] Comment on above: Performed By: #### L 100.0100, L500.4050 #### [facility] [address] [place], [address] Eosinophil percentageOrdered By: Amina Palomo on 03-18-2025 Eosinophils/100 WBC (Bld) 7.2 % High 0-5 [facility] Comment on above: Performed By: #### L 100.0100, L500.4050 #### [facility] [address] [place], [address] Erythrocyte distribution wid th ratioOrdered By: Amina Palomo on 03-18-2025 Erythrocyte distribution width (RBC) [Ratio] 16.8 % High 11.6-14.6 [facility] Comment on above: Performed By: #### L 100.0100, L500.4050 #### [facility] [address] [facility] [place], [place], [id number] Erythrocyte distribution wid th standard deviationOrdered By: Amina Palomo on 03-18-2025 Erythrocyte distribution width (RBC) [Ratio] 60.0 fl High 35.1-43.9 [facility] Glomerular filtration rate ( GFR) estimation/1.73 sq m using serum, plasma, or whole bOrdered By: Amina Palomo on 03-18-2025 GFR/1.73 sq M.predicted among non-blacks MDRD (S/P/Bld) [Vol rate/Area] 67 mL/min/{1.73_m2} >60 [facility] Comment on above: mL/min/1.73m2 CKD-EP I Creatinine Equation (2020) Hemoglobin measurementOrdere d By: Amina Palomo on 03-18-2025 Hemoglobin (Bld) [Mass/Vol] 12.1 g/dL Normal 12.0-15.0 [facility] Comment on above: Performed By: #### L 100.0100, L500.4050 #### [facility] [address] [place], [place], [id number] Immature granulocytes/100 WB C Auto (Bld)Ordered By: Amina Palomo on 03-18-2025 Immature granulocytes/100 WBC (Bld) 0.400 % 0.0-0.9 [facility] Comment on above: IG% - Immature Granu locytes (promyelocytes, myelocytes and metamyelocytes) > 1% indicates that a LEFT SHIFT is Present. Laboratory - Chemistry and C hemistry - challengeOrdered By: Amina Palomo on 03-18-2025 AST [Catalytic activity/Vol] 30 U/L <32 [facility] MCV (mean corpuscular volume ) determinationOrdered By: Amina Palomo on 03-18-2025 MCV (RBC) [Entitic vol] 98.0 fL Normal 81-99 [facility] Comment on above: Performed By: #### L 100.0100, L500.4050 #### [facility] [address] [place], [address] Mean corpuscular hemoglobin (MCH) determinationOrdered By: Amina Palomo on 03-18-2025 MCH (RBC) [Entitic mass] 30.0 pg Normal 27.0-32.0 [facility] Comment on above: Performed By: #### L 100.0100, L500.4050 #### [facility] [address] [place], [address] Mean corpuscular hemoglobin concentration (MCHC) determinationOrdered By: Amina Palomo on 03-18-2025 MCHC (RBC) [Mass/Vol] 30.6 g/dL Low 32-36 [facility] Comment on above: Performed By: #### L 100.0100, L500.4050 #### [facility] [address] [place], [address] Mean platelet volume determi nationOrdered By: Amina Palomo on 03-18-2025 Platelet mean volume (Bld) [Entitic vol] 10.6 fL Normal 6.2-12.0 [facility] Comment on above: Performed By: #### L 100.0100, L500.4050 #### [facility] [address] [place], [address] Monocyte percentageOrdered B y: Amina Palomo on 03-18-2025 Monocytes/100 WBC (Bld) 4.9 % Normal 0-10 [facility] Comment on above: Performed By: #### L 100.0100, L500.4050 #### [facility] [address] [place], [address] Neutrophil percentageOrdered By: Amina Palomo on 03-18-2025 Neutrophils/100 WBC (Bld) 60.3 % Normal 47-70 [facility] Comment on above: Performed By: #### L 100.0100, L500.4050 #### [facility] [address] [place], [place], [address] Nucleated red blood cell per centageOrdered By: Amina Palomo on 03-18-2025 Nucleated RBC/100 WBC (Bld) [Ratio] 0 % 0-5 [facility] Platelet countOrdered By: Chente Palomo on 03-18-2025 Platelets (Bld) [#/Vol] 285 10*3/uL Normal 150-450 [facility] Comment on above: Performed By: #### L 100.0100, L500.4050 #### [facility] [address] [place], [place], [address] Potassium measurement (mass/ volume)Ordered By: Amina Palomo on 03-18-2025 Potassium (Unsp spec) [Mass/Vol] 4.6 mmol/L 3.3-5.1 [facility] Serum creatinine measurement (mass/volume)Ordered By: Amina Palomo on 03-18-2025 Creatinine [Mass/Vol] 0.88 mg/dL 0.70-1.20 [facility] Serum globulin measurementOr dered By: Amina Palomo on 03-18-2025 Globulin (S) [Mass/Vol] 2.9 g/dL 2.2-4.2 [facility] Serum glucose measurement (m ass/volume)Ordered By: Amina Palomo on 03-18-2025 Glucose [Mass/Vol] 122 mg/dL High 70-99 [facility] Serum or plasma alanine duckworth otransferase (ALT) measurementOrdered By: Amina Palomo on 03-18-2025 ALT [Catalytic activity/Vol] 29 U/L <35 [facility] Serum or plasma albumin luis enrique urement (mass/volume)Ordered By: Amina Palomo on 03-18-2025 Albumin [Mass/Vol] 3.8 g/dL 3.4-4.8 [facility] Serum or plasma albumin/glob ulin mass ratioOrdered By: Amina Palomo on 03-18-2025 Albumin/Globulin [Mass ratio] 1.3 {ratio} 0.9-2.4 [facility] Serum or plasma alkaline carole sphatase measurementOrdered By: Amina Palomo on 03-18-2025 ALP [Catalytic activity/Vol] 130 U/L High 35-104 [facility] Serum or plasma calcium luis enrique urement (mass/volume)Ordered By: Amina Palomo on 03-18-2025 Calcium [Mass/Vol] 9.4 mg/dL 7.6-11.0 [facility] Serum or plasma urea nitroge n measurement (mass/volume)Ordered By: Amina Palomo on 03-18-2025 Urea nitrogen [Mass/Vol] 18 mg/dL 4-19 [facility] Sodium levelOrdered By: Annabella Palomo on 03-18-2025 Sodium [Moles/Vol] 140 mmol/L 133-145 [facility] Total proteinOrdered By: Dale Palomo on 03-18-2025 Protein [Mass/Vol] 6.6 g/dL 5.9-8.4 [facility] White blood cell (WBC) count Ordered By: Amina Palomo on 03-18-2025 WBC (Bld) [#/Vol] 8.0 10*3/uL Normal 4.4-11.0 [facility] Comment on above: Performed By: #### L 100.0100, L500.4050 #### [facility] [address] [place], [place], [address] Chest PA and Lateralon 02-16 Chest PA and Lateral [facility] [address] [place] [address] Chest PA and Lateral MR#: [id number] Acct: [id number] Name: BETSY LEE Geovany Rep #: [id number] : 1945 F [id number] From: Marciano Yee MD PCP: Dr. Marciano Anaya DO Status: REG CLI Study: Chest PA and Lateral Date of Exam: 02/16/25 Exam# [id number] Ordering Dr: Marciano Anaya DO PROCEDURE: CHEST [...] 2. Additional description as above. Reading Location: [id number] CC: Dr. Marciano Anaya, Air Hose Coupler: Signed Normal [facility] Absolute lymphocyte countOrd ered By: Aminashelia Palomo on 12-24-2024 Lymphocytes Auto (Unsp spec) [#/Vol] 1.71 10*3/uL 0.83-4.51 [facility] Absolute neutrophil countOrd ered By: [facility] on 12-24-2024 Neutrophils (Bld) [#/Vol] 6.9 10*3/uL 2.0-7.7 [facility] Albumin to globulin ratioOrd ered By: [facility] on 12-24-2024 Albumin/Globulin [Mass ratio] 0.8 {ratio} Low 0.9-2.4 [facility] Automated lymphocyte count a s percentage of total leukocytesOrdered By: Amina Palomo on 12-24-2024 Lymphocytes/100 WBC Auto (Unsp spec) 16.7 % Low 19-41 [facility] Basophil percentageOrdered B y: [facility] on 12-24-2024 Basophils/100 WBC (Bld) 0.9 % 0-1 [facility] Bilirubin, totalOrdered By: Amina Palomo on 12-24-2024 Bilirubin [Mass/Vol] 0.40 mg/dL 0.20-1.00 [facility] Comment on above: For patients on eltr ombopag therapy, use of Dimension [place] TBIL is not recommended. Blood urea nitrogen (BUN)/cr eatinine ratioOrdered By: Amina Palomo on 12-24-2024 Urea nitrogen/Creatinine [Mass ratio] 21.0 mg/mg High 10-20 [facility] CBC W/Diff, Automatedon 12-11 Absolute Lymph 1.71 X10 3/uL Normal 0.83-4.51 [facility] Comment on above: Performed By: #### L 500.4050, L100.0100 #### [facility] [address] [place], [address] Absolute Neut 6.9 X10 3/uL Normal 2.0-7.7 [facility] Comment on above: Performed By: #### L 500.4050, L100.0100 #### [facility] [address] [place], [address] Basophils/100 WBC (Bld) 0.9 % Normal 0-1 [facility] Comment on above: Performed By: #### L 500.4050, L100.0100 #### [facility] [address] [place], [address] Eosinophils/100 WBC (Bld) 8.4 % High 0-5 [facility] Comment on above: Performed By: #### L 500.4050, L100.0100 #### [facility] [address] [place], [address] Erythrocyte distribution width (RBC) [Ratio] 15.7 % High 11.6-14.6 [facility] Comment on above: Performed By: #### L 500.4050, L100.0100 #### [facility] [address] [place], [address] Hematocrit (Bld) [Volume fraction] 39.4 % Normal 37-47 [facility] Comment on above: Performed By: #### L 500.4050, L100.0100 #### [facility] [address] [place], [address] Hemoglobin (Bld) [Mass/Vol] 12.1 g/dL Normal 12.0-15.0 [facility] Comment on above: Performed By: #### L 500.4050, L100.0100 #### [facility] [address] [place], [address] IG% 0.700 Normal 0.0-0.9 [facility] Comment on above: Result Comment: IG% - Immature Granulocytes (promyelocytes, myelocytes and metamyelocytes) > 1% indicates that a LEFT SHIFT is Present. Performed By: #### L 500.4050, L100.0100 #### [facility] [address] [place], [address] Lymphocytes/100 WBC (Bld) 16.7 % Low 19-41 [facility] Comment on above: Performed By: #### L 500.4050, L100.0100 #### [facility] [address] [place], [address] MCH (RBC) [Entitic mass] 29.7 pg Normal 27.0-32.0 [facility] Comment on above: Performed By: #### L 500.4050, L100.0100 #### [facility] [address] [place], [address] MCHC (RBC) [Mass/Vol] 30.7 g/dL Low 32-36 [facility] Comment on above: Performed By: #### L 500.4050, L100.0100 #### [facility] [address] [place], [address] MCV (RBC) [Entitic vol] 96.8 fL Normal 81-99 [facility] Comment on above: Performed By: #### L 500.4050, L100.0100 #### [facility] [address] [place], [address] Monocytes/100 WBC (Bld) 6.0 % Normal 0-10 [facility] Comment on above: Performed By: #### L 500.4050, L100.0100 #### [facility] [address] [place], [address] Neutrophils/100 WBC (Bld) 67.3 % Normal 47-70 [facility] Comment on above: Performed By: #### L 500.4050, L100.0100 #### [facility] [address] [place], [address] Nucleated RBC (Bld) [#/Vol] 0 10*3/uL Normal 0-5 [facility] Comment on above: Performed By: #### L 500.4050, L100.0100 #### [facility] [address] [place], [address] Platelet mean volume (Bld) [Entitic vol] 10.7 fL Normal 6.2-12.0 [facility] Comment on above: Performed By: #### L 500.4050, L100.0100 #### [facility] [address] [place], [address] Platelets (Bld) [#/Vol] 335 10*3/uL Normal 150-450 [facility] Comment on above: Performed By: #### L 500.4050, L100.0100 #### [facility] [address] [place], [address] RBC (Bld) [#/Vol] 4.07 10*6/uL Low 4.2-5.4 [facility] Comment on above: Performed By: #### L 500.4050, L100.0100 #### [facility] [address] [place], [address] RDW SD 54.3 fl High 35.1-43.9 [facility] Comment on above: Performed By: #### L 500.4050, L100.0100 #### [facility] [address] [place], [address] WBC (Bld) [#/Vol] 10.3 10*3/uL Normal 4.4-11.0 [facility] Comment on above: Performed By: #### L 500.4050, L100.0100 #### [facility] [address] [place], [address] Carbon dioxide measurementOr dered By: Amina Palomo on 12-24-2024 CO2 [Moles/Vol] 26.0 mmol/L 21.0-32.0 [facility] Chloride measurementOrdered By: Amina Palomo on 12-24-2024 Chloride [Moles/Vol] 104 mmol/L 98-107 [facility] Comprehensive Metabolic Prof ilon 12-24-2024 Albumin [Mass/Vol] 3.0 g/dL Low 3.2-5.0 [facility] Comment on above: Performed By: #### L 500.4050, L100.0100 ####[facility] [address] [place], [address] Albumin/Globulin [Mass ratio] 0.8 {ratio} Low 0.9-2.4 [facility] Comment on above: Performed By: #### L 500.4050, L100.0100 ####[facility] [address] [place], [address] ALK P 128 U/L High 45-117 [facility] Comment on above: Performed By: #### L 500.4050, L100.0100 ####[facility] [address] [place], [address] ALT [Catalytic activity/Vol] 13 U/L Normal 13-56 [facility] Comment on above: Performed By: #### L 500.4050, L100.0100 ####[facility] [address] [place], [address] AST [Catalytic activity/Vol] 18 U/L Normal 15-37 [facility] Comment on above: Performed By: #### L 500.4050, L100.0100 ####[facility] [address] [place], [address] Bilirubin [Mass/Vol] 0.40 mg/dL Normal 0.20-1.00 [facility] Comment on above: Result Comment: For patients on eltrombopag therapy, use of Dimension [place] TBIL is not recommended. Performed By: #### L 500.4050, L100.0100 ####[facility] [address] [place], [address] BUN/CRE 21.0 RATIO High 10-20 [facility] Comment on above: Performed By: #### L 500.4050, L100.0100 ####[facility] [address] [place], [address] CA,Total 9.5 mg/dL Normal 8.5-10.1 [facility] Comment on above: Performed By: #### L 500.4050, L100.0100 ####[facility] [address] [place], [address] Chloride [Moles/Vol] 104 mmol/L Normal 98-107 [facility] Comment on above: Performed By: #### L 500.4050, L100.0100 ####[facility] [address] [place], [address] CO2 [Moles/Vol] 26.0 mmol/L Normal 21.0-32.0 [facility] Comment on above: Performed By: #### L 500.4050, L100.0100 ####[facility] [address] [place], [address] Creatinine [Mass/Vol] 1.05 mg/dL High 0.55-1.02 [facility] Comment on above: Result Comment: The validity of the calculated GFR GFRAA in patients over 70 years has not been determined. Clinical correlation is essential. Performed By: #### L 500.4050, L100.0100 ####[facility] [address] [place], [address] EST GFR - AA 65 mL/min Normal >60 [facility] Comment on above: Result Comment: Afri can [place] GFR Calc Performed By: #### L 500.4050, L100.0100 ####[facility] [address] [place], [address] GAP 8 Normal 5-15 [facility] Comment on above: Performed By: #### L 500.4050, L100.0100 ####[facility] [address] [place], [address] GFR/1.73 sq M.predicted among non-blacks MDRD (S/P/Bld) [Vol rate/Area] 54 mL/min/{1.73_m2} Low >60 [facility] Comment on above: Result Comment: Non- GFR Calc Performed By: #### L 500.4050, L100.0100 ####[facility] [address] [place], [address] Globulin (S) [Mass/Vol] 3.9 g/dL Normal 2.2-4.2 [facility] Comment on above: Performed By: #### L 500.4050, L100.0100 ####[facility] [address] [place], [address] Glucose [Mass/Vol] 87 mg/dL Normal 74-106 [facility] Comment on above: Performed By: #### L 500.4050, L100.0100 ####[facility] [address] [place], [address] Potassium [Moles/Vol] 4.4 mmol/L Normal 3.5-5.1 [facility] Comment on above: Performed By: #### L 500.4050, L100.0100 ####[facility] [address] [place], [address] Sodium [Moles/Vol] 138 mmol/L Normal 136-145 [facility] Comment on above: Performed By: #### L 500.4050, L100.0100 ####[facility] [address] [place], [address] T PROT 6.9 g/dL Normal 6.4-8.2 [facility] Comment on above: Performed By: #### L 500.4050, L100.0100 ####[facility] [address] [place], [address] Urea nitrogen [Mass/Vol] 22 mg/dL High 7-18 [facility] Comment on above: Performed By: #### L 500.4050, L100.0100 ####[facility] [address] [place], [address] Eosinophil percentageOrdered By: Amina Palomo on 12-24-2024 Eosinophils/100 WBC (Bld) 8.4 % High 0-5 [facility] Erythrocyte distribution wid th (RBC) [Ratio]Ordered By: Amina Palomo on 12-24-2024 Erythrocyte distribution width (RBC) [Entitic vol] 54.3 fL High 35.1-43.9 [facility] Erythrocyte distribution wid th ratioOrdered By: Amina Palomo on 12-24-2024 Erythrocyte distribution width (RBC) [Ratio] 15.7 % High 11.6-14.6 [facility] Erythrocyte distribution wid th standard deviationOrdered By: Amina Palomo on 12-24-2024 Erythrocyte distribution width (RBC) [Ratio] 54.3 fl High 35.1-43.9 [facility] Estimated glomerular filtrat ion rate (GFR) AmericanOrdered By: Amina Palomo on 12-24-2024 Estimated GFR (MDRD) Amer 65 mL/min >60 [facility] Comment on above: GFR Calc Glomerular filtration rate ( GFR) estimationOrdered By: Amina Palomo on 12-24-2024 Estimated GFR (MDRD) Non-Af Amer 54 mL/min Low >60 [facility] Comment on above: Non- GFR Calc GFR/1.73 sq M.predicted among non-blacks MDRD (S/P/Bld) [Vol rate/Area] 54 mL/min/{1.73_m2} Low >60 [facility] Comment on above: Non- GFR Calc Glucose measurementOrdered B y: Amina Palomo on 12-24-2024 Glucose [Mass/Vol] 87 mg/dL 74-106 [facility] Hematocrit Auto (Bld) [Volum e fraction]Ordered By: Amina Palomo on 12-24-2024 Hematocrit (Bld) [Volume fraction] 39.4 % 37-47 [facility] Hemoglobin measurementOrdere d By: Amina Palomo on 12-24-2024 Hemoglobin (Bld) [Mass/Vol] 12.1 g/dL 12.0-15.0 [facility] Immature granulocytes/100 WB C Auto (Bld)Ordered By: Amina Palomo on 12-24-2024 Immature granulocytes/100 WBC (Bld) 0.700 % 0.0-0.9 [facility] Comment on above: IG% - Immature Granu locytes (promyelocytes, myelocytes and metamyelocytes) > 1% indicates that a LEFT SHIFT is Present. Laboratory - Chemistry and C hemistry - challengeOrdered By: Amina Palomo on 12-24-2024 AST [Catalytic activity/Vol] 18 U/L 15-37 [facility] Lymphocytes Auto (Unsp spec) [#/Vol]Ordered By: Amina Palomo on 12-24-2024 Lymphocytes (Bld) [#/Vol] 1.71 10*3/uL 0.83-4.51 [facility] Lymphocytes/100 WBC Auto (Un sp spec)Ordered By: Amina Palomo on 12-24-2024 Lymphocytes/100 WBC (Bld) 16.7 % Low 19-41 [facility] MCV (mean corpuscular volume ) determinationOrdered By: Amina Palomo on 12-24-2024 MCV (RBC) [Entitic vol] 96.8 fL 81-99 [facility] Mean corpuscular hemoglobin (MCH) determinationOrdered By: Amina Palomo on 12-24-2024 MCH (RBC) [Entitic mass] 29.7 pg 27.0-32.0 [facility] Mean corpuscular hemoglobin concentration (MCHC) determinationOrdered By: Amina Palomo on 12-24-2024 MCHC (RBC) [Mass/Vol] 30.7 g/dL Low 32-36 [facility] Mean platelet volume determi nationOrdered By: Aimna Palomo on 12-24-2024 Platelet mean volume (Bld) [Entitic vol] 10.7 fL 6.2-12.0 [facility] Monocyte percentageOrdered B y: Amina Palomo on 12-24-2024 Monocytes/100 WBC (Bld) 6.0 % 0-10 [facility] Neutrophil percentageOrdered By: Amina Palomo on 12-24-2024 Neutrophils/100 WBC (Bld) 67.3 % 47-70 [facility] Nucleated red blood cell per centageOrdered By: Amina Palomo on 12-24-2024 Nucleated RBC/100 WBC (Bld) [Ratio] 0 % 0-5 [facility] Platelet countOrdered By: Chente Palomo on 12-24-2024 Platelets (Bld) [#/Vol] 335 10*3/uL 150-450 [facility] Potassium measurementOrdered By: Amina Palomo on 12-24-2024 Potassium [Moles/Vol] 4.4 mmol/L 3.5-5.1 [facility] RBC Auto (Bld) [#/Vol]Ordere d By: Amina Palomo on 12-24-2024 RBC (Bld) [#/Vol] 4.07 10*6/uL Low 4.2-5.4 [facility] Serum anion gap measurementO rdered By: Amina Palomo on 12-24-2024 Anion gap [Moles/Vol] 8 mmol/L 5-15 [facility] Serum globulin measurementOr dered By: Amina Palomo on 12-24-2024 Globulin (S) [Mass/Vol] 3.9 g/dL 2.2-4.2 [facility] Serum or plasma alanine duckworth otransferase (ALT) measurementOrdered By: Amina Palomo on 12-24-2024 ALT [Catalytic activity/Vol] 13 U/L 13-56 [facility] Serum or plasma albumin luis enrique urement (mass/volume)Ordered By: Amina Palomo on 12-24-2024 Albumin [Mass/Vol] 3.0 g/dL Low 3.2-5.0 [facility] Serum or plasma alkaline carole sphatase measurementOrdered By: Amina Palomo on 12-24-2024 ALP [Catalytic activity/Vol] 128 U/L High 45-117 [facility] Serum or plasma calcium luis enrique urement (mass/volume)Ordered By: Amina Palomo on 12-24-2024 Calcium [Mass/Vol] 9.5 mg/dL 8.5-10.1 [facility] Serum or plasma creatinine m easurement (mass/volume)Ordered By: Amina Palomo on 12-24-2024 Creatinine [Mass/Vol] 1.05 mg/dL High 0.55-1.02 [facility] Comment on above: The validity of the calculated GFR & GFRAA in patients over 70 years has not been determined. Clinical correlation is essential. Serum or plasma urea nitroge n measurement (mass/volume)Ordered By: Amina Palomo on 12-24-2024 Urea nitrogen [Mass/Vol] 22 mg/dL High 7-18 [facility] Sodium levelOrdered By: Annabella Palomo on 12-24-2024 Sodium [Moles/Vol] 138 mmol/L 136-145 [facility] Total proteinOrdered By: Dale Palomo on 12-24-2024 Protein [Mass/Vol] 6.9 g/dL 6.4-8.2 [facility] White blood cell (WBC) count Ordered By: Amina Palomo on 12-24-2024 WBC (Bld) [#/Vol] 10.3 10*3/uL 4.4-11.0 [facility] 08-AF-Qgrezho DOrdered By: Malcolm Anaya on 10-25-2024 Vitamin D 25-Hydroxy 30.7 ng/mL [facility] Comment on above: Vitamin D 25(OH) Sta tus Range Deficiency <20 ng/mL (50nmol/L) Insufficiency 20 - 30 ng/mL (50 - 75 nmol/L) Sufficiency 30 - 100 ng/mL (75 - 250 nmol/L) Toxicity >100 ng/mL (>250 nmol/L) Direct serum free thyroxine (FT4) measurementOrdered By: Marciano Anaya on 10-25-2024 Free T4 [Mass/Vol] 1.17 ng/dL 0.76-1.46 [facility] Hemoglobin A1con 10-25-2024 HbA1c (Bld) [Mass fraction] 5.6 % Normal 3.8-5.6 [facility] Comment on above: Result Comment: Norm al < 5.7 % Prediabetic 5.7 - 6.4 % Diabetic >or= 6.5 % Please note range changes. Performed By: #### L 501.5200, L500.2500, L501.9520, L501.4021 #### [facility] [place], [address] Hemoglobin A1c percentageOrd ered By: Marciano Anaya on 10-25-2024 HbA1c (Bld) [Mass fraction] 5.6 % 3.8-5.6 [facility] Comment on above: Normal < 5.7 % Predi abetic 5.7 - 6.4 % Diabetic >or= 6.5 % Please note range changes. High density lipoprotein (HD L) measurementOrdered By: Marciano Anaya on 10-25-2024 Cholesterol in HDL [Mass/Vol] 55 mg/dL >40 [facility] Comment on above: The drugs N-Acetylcy steine and Metamizole may falsely depress this assay. Reference Range HDL <40 mg/dL Low HDL Cholesterol HDL >or= 60 mg/dL High HDL Cholesterol Lipid Profileon 10-25-2024 Cholesterol [Mass/Vol] 161 mg/dL Normal 200 [facility] Comment on above: Result Comment: <200 mg/dL Desirable 200-240 mg/dL Borderline >240 mg/dL High Risk Performed By: #### L 501.5200, L500.2500, L501.9520, L501.4021 #### [facility] Laboratory [address] [place], [address] Cholesterol in HDL [Mass/Vol] 55 mg/dL Normal [facility] Comment on above: Result Comment: The drugs N-Acetylcysteine and Metamizole may falsely depress this assay. Reference Range HDL <40 mg/dL Low HDL Cholesterol HDL >or= 60 mg/dL High HDL Cholesterol Performed By: #### L 501.5200, L500.2500, L501.9520, L501.4021 #### [facility] [address] [place], [address] Cholesterol in LDL [Mass/Vol] 74 mg/dL Normal 0-130 [facility] Comment on above: Performed By: #### L 501.5200, L500.2500, L501.9520, L501.4021 #### [facility] [address] [place], [address] Cholesterol in VLDL [Mass/Vol] 32 mg/dL Normal 5-40 [facility] Comment on above: Performed By: #### L 501.5200, L500.2500, L501.9520, L501.4021 #### [facility] [address] [place], [address] Triglyceride [Mass/Vol] 160 mg/dL Normal [facility] Comment on above: Result Comment: The drugs N-Acetylcysteine and Metamizole may falsely depress this assay. Serum Triglycerides Reference Interval Normal <150 mg/dL Borderline high 150 - 199 mg/dL High 200 - 499 mg/dL Very High > or = 500 mg/dL Performed By: #### L 501.5200, L500.2500, L501.9520, L501.4021 #### [facility] [address] [place], [address] Low density lipoprotein (LDL ) cholesterol measurementOrdered By: Marciano Anaya on 10-25-2024 Cholesterol in LDL [Mass/Vol] 74 mg/dL 0-130 [facility] Serum or plasma cholesterol measurement (mass/volume)Ordered By: Marciano Anaya on 10-25-2024 Cholesterol [Mass/Vol] 161 mg/dL <200 [facility] Comment on above: <200 mg/dL Desirable 200-240 mg/dL Borderline >240 mg/dL High Risk T4 Free Directon 10-25-2024 T4 FREE DIRECT 1.17 ng/dL Normal 0.76-1.46 [facility] Comment on above: Performed By: #### L 501.5200, L500.2500, L501.9520, L501.4021 #### [facility] Laboratory [address] [place], [address] TSH QnOrdered By: Marciano grimaldo on 10-25-2024 Thyroid Stimulating Hormone (TSH) 1.190 uIU/mL 0.358-3.740 [facility] Thyroid Stim Hormone (TSH)on 10-25-2024 TSH 1.190 uIU/mL Normal 0.358-3.740 [facility] Comment on above: Performed By: #### L 501.5200, L500.2500, L501.9520, L501.4021 #### [facility] Laboratory [address] [place], [place], [address] Triglycerides measurementOrd ered By: Marciano Anaya on 10-25-2024 Triglyceride [Mass/Vol] 160 mg/dL <199 [facility] Comment on above: The drugs N-Acetylcy steine and Metamizole may falsely depress this assay.Serum Triglycerides Reference Interval Normal <150 mg/dL Borderline high 150 - 199 mg/dL High 200 - 499 mg/dL Very High > or = 500 mg/dL Very low density lipoprotein (VLDL) cholesterol measurementOrdered By: Marciano Anaya on 10-25-2024 VLDL Cholesterol 32 mg/dL 5-40 [facility] Vitamin D,25 Hydroxyon 10-25 Vitamin D 25-OH 30.7 ng/mL Normal [facility] Comment on above: Result Comment: Sunita min D 25(OH) Status Range Deficiency <20 ng/mL (50nmol/L) Insufficiency 20 - 30 ng/mL (50 - 75 nmol/L) Sufficiency 30 - 100 ng/mL (75 - 250 nmol/L) Toxicity >100 ng/mL (>250 nmol/L) Performed By: #### L 501.5200, L500.2500, L501.9520, L501.4021 #### [facility] Laboratory [address] [place], [address] CBC W/Diff, Automatedon 11-2 Absolute Lymph 3.03 X10 3/uL Normal 0.83-4.51 [facility] Comment on above: Performed By: #### L 100.0100, L500.4050 ####[facility] [address] [place], [address] Absolute Neut 4.6 X10 3/uL Normal 2.0-7.7 [facility] Comment on above: Performed By: #### L 100.0100, L500.4050 ####[facility] [address] [place], [address] Basophils/100 WBC (Bld) 0.9 % Normal 0-1 [facility] Comment on above: Performed By: #### L 100.0100, L500.4050 ####[facility] [address] [place], [address] Eosinophils/100 WBC (Bld) 6.2 % High 0-5 [facility] Comment on above: Performed By: #### L 100.0100, L500.4050 ####[facility] [address] [place], [address] Erythrocyte distribution width (RBC) [Ratio] 15.8 % High 11.6-14.6 [facility] Comment on above: Performed By: #### L 100.0100, L500.4050 ####[facility] [address] [place], [address] Hematocrit (Bld) [Volume fraction] 41.8 % Normal 37-47 [facility] Comment on above: Performed By: #### L 100.0100, L500.4050 ####[facility] [address] [place], [address] Hemoglobin (Bld) [Mass/Vol] 12.6 g/dL Normal 12.0-15.0 [facility] Comment on above: Performed By: #### L 100.0100, L500.4050 ####[facility] [address] [place], [address] IG% 0.300 Normal 0.0-0.9 [facility] Comment on above: Result Comment: IG% - Immature Granulocytes (promyelocytes, myelocytes and metamyelocytes) > 1% indicates that a LEFT SHIFT is Present. Performed By: #### L 100.0100, L500.4050 ####[facility] [address] [place], [address] Lymphocytes/100 WBC (Bld) 35.3 % Normal 19-41 [facility] Comment on above: Performed By: #### L 100.0100, L500.4050 ####[facility] [address] [place], [address] MCH (RBC) [Entitic mass] 29.9 pg Normal 27.0-32.0 [facility] Comment on above: Performed By: #### L 100.0100, L500.4050 ####[facility] [address] [place], [address] MCHC (RBC) [Mass/Vol] 30.1 g/dL Low 32-36 [facility] Comment on above: Performed By: #### L 100.0100, L500.4050 ####[facility] [address] [place], [address] MCV (RBC) [Entitic vol] 99.3 fL High 81-99 [facility] Comment on above: Performed By: #### L 100.0100, L500.4050 ####[facility] [address] [place], [address] Monocytes/100 WBC (Bld) 3.7 % Normal 0-10 [facility] Comment on above: Performed By: #### L 100.0100, L500.4050 ####[facility] [address] [place], [address] Neutrophils/100 WBC (Bld) 53.6 % Normal 47-70 [facility] Comment on above: Performed By: #### L 100.0100, L500.4050 ####[facility] [address] [place], [address] Nucleated RBC (Bld) [#/Vol] 0 10*3/uL Normal 0-5 [facility] Comment on above: Performed By: #### L 100.0100, L500.4050 ####[facility] [address] [place], [address] Platelet mean volume (Bld) [Entitic vol] 10.8 fL Normal 6.2-12.0 [facility] Comment on above: Performed By: #### L 100.0100, L500.4050 ####[facility] [address] [place], [address] Platelets (Bld) [#/Vol] 288 10*3/uL Normal 150-450 [facility] Comment on above: Performed By: #### L 100.0100, L500.4050 ####[facility] [address] [place], [address] RBC (Bld) [#/Vol] 4.21 10*6/uL Normal 4.2-5.4 [facility] Comment on above: Performed By: #### L 100.0100, L500.4050 ####[facility] [address] [place], [address] RDW SD 56.7 fl High 35.1-43.9 [facility] Comment on above: Performed By: #### L 100.0100, L500.4050 ####[facility] [address] [place], [address] WBC (Bld) [#/Vol] 8.6 10*3/uL Normal 4.4-11.0 [facility] Comment on above: Performed By: #### L 100.0100, L500.4050 ####[facility] [address] [place], [address] Comprehensive Metabolic Prof ilon 09-30-2024 Albumin [Mass/Vol] 3.4 g/dL Normal 3.2-5.0 [facility] Comment on above: Performed By: #### L 100.0100, L500.4050 ####[facility] [address] [place], [address] Albumin/Globulin [Mass ratio] 0.9 {ratio} Normal 0.9-2.4 [facility] Comment on above: Performed By: #### L 100.0100, L500.4050 ####[facility] [address] [place], [address] ALK P 120 U/L High 45-117 [facility] Comment on above: Performed By: #### L 100.0100, L500.4050 ####[facility] [address] [place], [address] ALT [Catalytic activity/Vol] 24 U/L Normal 13-56 [facility] Comment on above: Performed By: #### L 100.0100, L500.4050 ####[facility] [address] [place], [address] AST [Catalytic activity/Vol] 17 U/L Normal 15-37 [facility] Comment on above: Performed By: #### L 100.0100, L500.4050 ####[facility] [address] [place], [address] Bilirubin [Mass/Vol] 0.50 mg/dL Normal 0.20-1.00 [facility] Comment on above: Result Comment: For patients on eltrombopag therapy, use of Dimension [place] TBIL is not recommended. Performed By: #### L 100.0100, L500.4050 ####[facility] [address] [place], [address] BUN/CRE 19.0 RATIO Normal 10-20 [facility] Comment on above: Performed By: #### L 100.0100, L500.4050 ####[facility] [address] [place], [address] CA,Total 9.1 mg/dL Normal 8.5-10.1 [facility] Comment on above: Performed By: #### L 100.0100, L500.4050 ####[facility] [address] [place], [address] Chloride [Moles/Vol] 105 mmol/L Normal 98-107 [facility] Comment on above: Performed By: #### L 100.0100, L500.4050 ####[facility] [address] [place], [address] CO2 [Moles/Vol] 26.0 mmol/L Normal 21.0-32.0 [facility] Comment on above: Performed By: #### L 100.0100, L500.4050 ####[facility] [address] [place], [address] Creatinine [Mass/Vol] 1.05 mg/dL High 0.55-1.02 [facility] Comment on above: Result Comment: The validity of the calculated GFR GFRAA in patients over 70 years has not been determined. Clinical correlation is essential. Performed By: #### L 100.0100, L500.4050 ####[facility] [address] [place], [address] EST GFR - AA 65 mL/min Normal >60 [facility] Comment on above: Result Comment: Afri can Beninese GFR Calc Performed By: #### L 100.0100, L500.4050 ####[facility] [address] [place], [address] GAP 8 Normal 5-15 [facility] Comment on above: Performed By: #### L 100.0100, L500.4050 ####[facility] [address] [place], [address] GFR/1.73 sq M.predicted among non-blacks MDRD (S/P/Bld) [Vol rate/Area] 54 mL/min/{1.73_m2} Low >60 [facility] Comment on above: Result Comment: Non- GFR Calc Performed By: #### L 100.0100, L500.4050 ####[facility] [address] [place], [address] Globulin (S) [Mass/Vol] 3.8 g/dL Normal 2.2-4.2 [facility] Comment on above: Performed By: #### L 100.0100, L500.4050 ####[facility] [address] [place], [address] Glucose [Mass/Vol] 113 mg/dL High 74-106 [facility] Comment on above: Result Comment: Fast ing Glucose result from 100 to 125 mg/dL suggests IMPAIRED HOMEOSTASIS per A.D.A. criteria. Performed By: #### L 100.0100, L500.4050 ####[facility] [address] [place], [address] Potassium [Moles/Vol] 4.0 mmol/L Normal 3.5-5.1 [facility] Comment on above: Performed By: #### L 100.0100, L500.4050 ####[facility] [address] [place], [address] Sodium [Moles/Vol] 138 mmol/L Normal 136-145 [facility] Comment on above: Performed By: #### L 100.0100, L500.4050 ####[facility] [address] [place], [address] T PROT 7.2 g/dL Normal 6.4-8.2 [facility] Comment on above: Performed By: #### L 100.0100, L500.4050 ####[facility] [address] [place], [address] Urea nitrogen [Mass/Vol] 20 mg/dL High 7-18 [facility] Comment on above: Performed By: #### L 100.0100, L500.4050 ####[facility] [address] [place], [address] Liveron 08-18-2024 Liver [facility] Services [address] [place] [address] Liver MR#: [id number] Acct: [id number] Name: BETSY LEE Geovany Rep #: [id number] : 1945 F [id number] From: Jag goldberg MD PCP: Dr. Marciano Anaya, DO Status: REG CLI Study: Liver Date of Exam: 08/18/24 Exam# [id number] Ordering Dr: Amina Palomo [place] [id number] STUDY: ABDOMINAL ULTRASOUND - RIGHT UPPER QUADRANT [...] Signed: Jag Barajas MD at 12:18 EDT Reading Location ID and State: [facility] / [place] , Service support , CC: Dr. Marciano Anaya DO; Dr. Amina Palomo MD Air Hose Coupler: Signed Normal [facility] CBC W/Diff, Automatedon 07-12 Absolute Lymph 2.02 X10 3/uL Normal 0.83-4.51 [facility] Comment on above: Performed By: #### L 500.4050, L100.0100 ####[facility] [address] [place], [address] Absolute Neut 3.8 X10 3/uL Normal 2.0-7.7 [facility] Comment on above: Performed By: #### L 500.4050, L100.0100 ####[facility] [address] [place], [address] Basophils/100 WBC (Bld) 1.2 % High 0-1 [facility] Comment on above: Performed By: #### L 500.4050, L100.0100 ####[facility] [address] [place], [address] Eosinophils/100 WBC (Bld) 8.6 % High 0-5 [facility] Comment on above: Performed By: #### L 500.4050, L100.0100 ####[facility] [address] [place], [address] Erythrocyte distribution width (RBC) [Ratio] 15.3 % High 11.6-14.6 [facility] Comment on above: Performed By: #### L 500.4050, L100.0100 ####[facility] [address] [place], [address] Hematocrit (Bld) [Volume fraction] 41.5 % Normal 37-47 [facility] Comment on above: Performed By: #### L 500.4050, L100.0100 ####[facility] [address] [place], [address] Hemoglobin (Bld) [Mass/Vol] 12.6 g/dL Normal 12.0-15.0 [facility] Comment on above: Performed By: #### L 500.4050, L100.0100 ####[facility] [address] [place], [address] IG% 0.200 Normal 0.0-0.9 [facility] Comment on above: Result Comment: IG% - Immature Granulocytes (promyelocytes, myelocytes and metamyelocytes) > 1% indicates that a LEFT SHIFT is Present. Performed By: #### L 500.4050, L100.0100 ####[facility] [address] [place], [address] Lymphocytes/100 WBC (Bld) 30.5 % Normal 19-41 [facility] Comment on above: Performed By: #### L 500.4050, L100.0100 ####[facility] [address] [place], [address] MCH (RBC) [Entitic mass] 29.6 pg Normal 27.0-32.0 [facility] Comment on above: Performed By: #### L 500.4050, L100.0100 ####[facility] [address] [place], [address] MCHC (RBC) [Mass/Vol] 30.4 g/dL Low 32-36 [facility] Comment on above: Performed By: #### L 500.4050, L100.0100 ####[facility] [address] [place], [address] MCV (RBC) [Entitic vol] 97.6 fL Normal 81-99 [facility] Comment on above: Performed By: #### L 500.4050, L100.0100 ####[facility] [address] [place], [address] Monocytes/100 WBC (Bld) 2.9 % Normal 0-10 [facility] Comment on above: Performed By: #### L 500.4050, L100.0100 ####[facility] [address] [place], [address] Neutrophils/100 WBC (Bld) 56.6 % Normal 47-70 [facility] Comment on above: Performed By: #### L 500.4050, L100.0100 ####[facility] [address] [place], [address] Nucleated RBC (Bld) [#/Vol] 0 10*3/uL Normal 0-5 [facility] [facility] Comment on above: Performed By: #### L 500.4050, L100.0100 ####[facility] [address] [place], [address] Platelet mean volume (Bld) [Entitic vol] 10.9 fL Normal 6.2-12.0 [facility] Comment on above: Performed By: #### L 500.4050, L100.0100 ####[facility] [address] [place], [address] Platelets (Bld) [#/Vol] 274 10*3/uL Normal 150-450 [facility] Comment on above: Performed By: #### L 500.4050, L100.0100 ####[facility] [address] [place], [address] RBC (Bld) [#/Vol] 4.25 10*6/uL Normal 4.2-5.4 [facility] Comment on above: Performed By: #### L 500.4050, L100.0100 ####[facility] [address] [place], [address] RDW SD 54.3 fl High 35.1-43.9 [facility] Comment on above: Performed By: #### L 500.4050, L100.0100 ####[facility] [address] [place], [address] WBC (Bld) [#/Vol] 6.6 10*3/uL Normal 4.4-11.0 [facility] Comment on above: Performed By: #### L 500.4050, L100.0100 ####[facility] [address] [place], [address] Comprehensive Metabolic Prof [place] 08-05-2024 Albumin [Mass/Vol] 3.4 g/dL Normal 3.2-5.0 [facility] Comment on above: Performed By: #### L 500.4050, L100.0100 ####[facility] [address] [place], [address] Albumin/Globulin [Mass ratio] 0.9 {ratio} Normal 0.9-2.4 [facility] Comment on above: Performed By: #### L 500.4050, L100.0100 ####[facility] [address] [place], [address] ALK P 137 U/L High 45-117 [facility] Comment on above: Performed By: #### L 500.4050, L100.0100 ####[facility] [address] [place], [address] ALT [Catalytic activity/Vol] 36 U/L Normal 13-56 [facility] Comment on above: Performed By: #### L 500.4050, L100.0100 ####[facility] [address] [place], [address] AST [Catalytic activity/Vol] 39 U/L High 15-37 [facility] Comment on above: Performed By: #### L 500.4050, L100.0100 ####[facility] [address] [place], [address] Bilirubin [Mass/Vol] 0.40 mg/dL Normal 0.20-1.00 [facility] Comment on above: Result Comment: For patients on eltrombopag therapy, use of Dimension [place] TBIL is not recommended. Performed By: #### L 500.4050, L100.0100 ####[facility] [address] [place], [address] BUN/CRE 15.6 RATIO Normal 10-20 [facility] Comment on above: Performed By: #### L 500.4050, L100.0100 ####[facility] [address] [place], [address] CA,Total 9.6 mg/dL Normal 8.5-10.1 [facility] Comment on above: Performed By: #### L 500.4050, L100.0100 ####[facility] [address] [place], [address] Chloride [Moles/Vol] 105 mmol/L Normal 98-107 [facility] Comment on above: Performed By: #### L 500.4050, L100.0100 ####[facility] [address] [place], [address] CO2 [Moles/Vol] 30.0 mmol/L Normal 21.0-32.0 [facility] Comment on above: Performed By: #### L 500.4050, L100.0100 ####[facility] [address] [place], [address] Creatinine [Mass/Vol] 0.96 mg/dL Normal 0.55-1.02 [facility] Comment on above: Result Comment: The validity of the calculated GFR GFRAA in patients over 70 years has not been determined. Clinical correlation is essential. Performed By: #### L 500.4050, L100.0100 ####[facility] [address] [place], [address] EST GFR - AA 72 mL/min Normal >60 [facility] Comment on above: Result Comment: Afri can [place] GFR Calc Performed By: #### L 500.4050, L100.0100 ####[facility] [address] [place], [address] GAP 4 Low 5-15 [facility] Comment on above: Performed By: #### L 500.4050, L100.0100 ####[facility] [address] [place], [address] GFR/1.73 sq M.predicted among non-blacks MDRD (S/P/Bld) [Vol rate/Area] 60 mL/min/{1.73_m2} Normal >60 [facility] Comment on above: Result Comment: Non- GFR Calc Performed By: #### L 500.4050, L100.0100 ####[facility] [address] [place], [address] Globulin (S) [Mass/Vol] 3.8 g/dL Normal 2.2-4.2 [facility] Comment on above: Performed By: #### L 500.4050, L100.0100 ####[facility] [address] [place], [address] Glucose [Mass/Vol] 112 mg/dL High 74-106 [facility] Comment on above: Result Comment: Fast ing Glucose result from 100 to 125 mg/dL suggests IMPAIRED HOMEOSTASIS per A.D.A. criteria. Performed By: #### L 500.4050, L100.0100 ####[facility] [address] [place], [address] Potassium [Moles/Vol] 4.7 mmol/L Normal 3.5-5.1 [facility] Comment on above: Performed By: #### L 500.4050, L100.0100 ####[facility] [address] [place], [address] Sodium [Moles/Vol] 138 mmol/L Normal 136-145 [facility] Comment on above: Performed By: #### L 500.4050, L100.0100 ####[facility] [address] [place], [address] T PROT 7.2 g/dL Normal 6.4-8.2 [facility] Comment on above: Performed By: #### L 500.4050, L100.0100 ####[facility] [address] [place], [place], [address] Urea nitrogen [Mass/Vol] 15 mg/dL Normal 7-18 [facility] Comment on above: Performed By: #### L 500.4050, L100.0100 ####[facility] [address] [place], [place], [id number] Absolute lymphocyte countOrd ered By: Amina Palomo on 03-19-2024 Lymphocytes Auto (Unsp spec) [#/Vol] 2.71 10*3/uL 0.83-4.51 [facility] Automated lymphocyte count a s percentage of total leukocytesOrdered By: Amina Palomo on 03-19-2024 Lymphocytes/100 WBC Auto (Unsp spec) 25.7 % 19-41 [facility] Basophil percentageOrdered B y: Amina Palomo on 03-19-2024 Basophils/100 WBC (Bld) 1.1 % 0-1 [facility] Bilirubin [Mass/Vol] 0.50 mg/dL 0.20-1.00 [facility] Comment on above: For patients on eltr ombopag therapy, use of Dim[place] TBIL is not recommended. Chloride [Moles/Vol] 104 mmol/L 98-107 [facility] Eosinophils/100 WBC (Bld) 4.2 % 0-5 [facility] Glucose [Mass/Vol] 95 mg/dL 74-106 [facility] Hemoglobin (Bld) [Mass/Vol] 12.6 g/dL 12.0-15.0 [facility] Monocytes/100 WBC (Bld) 9.3 % 0-10 [facility] Neutrophils (Bld) [#/Vol] 6.2 10*3/uL 2.0-7.7 [facility] Neutrophils/100 WBC (Bld) 59.1 % 47-70 [facility] Potassium [Moles/Vol] 4.2 mmol/L 3.5-5.1 [facility] Protein [Mass/Vol] 7.3 g/dL 6.4-8.2 [facility] Sodium [Moles/Vol] 138 mmol/L 136-145 [facility] WBC (Bld) [#/Vol] 10.5 10*3/uL 4.4-11.0 [facility] Determination of erythrocyte mean corpuscular volume (MCV)Ordered By: Amina Palomo on 03-19-2024 MCV (RBC) [Entitic vol] 101.0 fL 81-99 [facility] Erythrocyte distribution wid th ratioOrdered By: Amina Palomo on 03-19-2024 Erythrocyte distribution width (RBC) [Ratio] 15.4 % 11.6-14.6 [facility] Erythrocyte distribution wid th standard deviationOrdered By: Amina Palomo on 03-19-2024 Erythrocyte distribution width (RBC) [Entitic vol] 56.6 fL 35.1-43.9 [facility] Hematocrit Auto (Bld) [Volum e fraction]Ordered By: Aminashelia Palomo on 03-19-2024 Hematocrit (Bld) [Volume fraction] 41.1 % 37-47 [facility] Immature granulocytes/100 WB C Auto (Bld)Ordered By: Amina Palomo on 03-19-2024 Immature granulocytes/100 WBC (Bld) 0.600 % 0.0-0.9 [facility] Comment on above: IG% - Immature Granu locytes (promyelocytes, myelocytes and metamyelocytes) > 1% indicates that a LEFT SHIFT is Present. Laboratory - Chemistry and C hemistry - challengeOrdered By: Amina Palomo on 03-19-2024 Albumin/Globulin [Mass ratio] 0.9 {ratio} 0.9-2.4 [facility] ALP [Catalytic activity/Vol] 114 U/L 45-117 [facility] ALT [Catalytic activity/Vol] 18 U/L 13-56 [facility] CO2 [Moles/Vol] 31.0 mmol/L 21.0-32.0 [facility] Globulin (S) [Mass/Vol] 3.8 g/dL 2.2-4.2 [facility] Urea nitrogen/Creatinine [Mass ratio] 19.3 mg/mg 10-20 [facility] Laboratory - Hematology and Cell countsOrdered By: Amina Palomo on 03-19-2024 MCH (RBC) [Entitic mass] 31.0 pg 27.0-32.0 [facility] MCHC (RBC) [Mass/Vol] 30.7 g/dL 32-36 [facility] Nucleated RBC/100 WBC (Bld) [Ratio] 0 % 0-5 [facility] Platelet mean volume (Bld) [Entitic vol] 9.3 fL 6.2-12.0 [facility] Platelets (Bld) [#/Vol] 311 10*3/uL 150-450 [facility] No Panel InformationOrdered By: Amina Palomo on 03-19-2024 Estimated GFR (MDRD) Amer 70 mL/min >60 [facility] Comment on above: GFR Calc Estimated GFR (MDRD) Non-Af Amer 58 mL/min >60 [facility] Comment on above: Non- GFR Calc RBC Auto (Bld) [#/Vol]Ordere d By: Amina Palomo on 03-19-2024 RBC (Bld) [#/Vol] 4.07 10*6/uL 4.2-5.4 [facility] Serum or plasma calcium luis enrique urement (mass/volume)Ordered By: Amina Palomo on 03-19-2024 Calcium [Mass/Vol] 9.4 mg/dL 8.5-10.1 [facility] Serum or plasma creatinine m easurement (mass/volume)Ordered By: Amina Palomo on 03-19-2024 Creatinine [Mass/Vol] 0.98 mg/dL 0.55-1.02 [facility] Comment on above: The validity of the calculated GFR & GFRAA in patients over 70 years has not been determined. Clinical correlation is essential. Serum or plasma urea nitroge n measurement (mass/volume)Ordered By: Amina Palomo on 03-19-2024 Urea nitrogen [Mass/Vol] 19 mg/dL 7-18 [facility] Thin prep Papanicolaou smear with manual screeningOrdered By: Amina Palomo on 03-19-2024 Thin prep Papanicolaou smear with manual screening 3.5 g/dL 3.2-5.0 [facility] Thin prep Papanicolaou smear with manual screening 15 U/L 15-37 [facility] Thin prep Papanicolaou smear with manual screening 3 5-15 [facility] Absolute lymphocyte countOrd ered By: Amina Palomo on 03-11-2024 Lymphocytes Auto (Unsp spec) [#/Vol] 2.07 10*3/uL 0.83-4.51 [facility] Automated lymphocyte count a s percentage of total leukocytesOrdered By: Amina Palomo on 03-11-2024 Lymphocytes/100 WBC Auto (Unsp spec) 26.1 % 19-41 [facility] Basophil percentageOrdered B y: Amina Palomo on 03-11-2024 Basophils/100 WBC (Bld) 0.8 % 0-1 [facility] Bilirubin [Mass/Vol] 0.40 mg/dL 0.20-1.00 [facility] Comment on above: For patients on eltr ombopag therapy, use of Dim[place] TBIL is not recommended. Chloride [Moles/Vol] 105 mmol/L 98-107 [facility] Eosinophils/100 WBC (Bld) 5.7 % 0-5 [facility] Glucose [Mass/Vol] 115 mg/dL 74-106 [facility] Comment on above: Fasting Glucose resu lt from 100 to 125 mg/dL suggests IMPAIRED HOMEOSTASIS per A.D.A. criteria. Hemoglobin (Bld) [Mass/Vol] 12.4 g/dL 12.0-15.0 [facility] Monocytes/100 WBC (Bld) 7.1 % 0-10 [facility] Neutrophils (Bld) [#/Vol] 4.8 10*3/uL 2.0-7.7 [facility] Neutrophils/100 WBC (Bld) 59.9 % 47-70 [facility] Potassium [Moles/Vol] 4.2 mmol/L 3.5-5.1 [facility] Protein [Mass/Vol] 7.3 g/dL 6.4-8.2 [facility] Sodium [Moles/Vol] 137 mmol/L 136-145 [facility] WBC (Bld) [#/Vol] 7.9 10*3/uL 4.4-11.0 [facility] Determination of erythrocyte mean corpuscular volume (MCV)Ordered By: Amina Palomo on 03-11-2024 MCV (RBC) [Entitic vol] 100.8 fL 81-99 [facility] Erythrocyte distribution wid th ratioOrdered By: Amina Stacia on 03-11-2024 Erythrocyte distribution width (RBC) [Ratio] 15.3 % 11.6-14.6 [facility] Erythrocyte distribution wid th standard deviationOrdered By: [facility] Stacia on 03-11-2024 Erythrocyte distribution width (RBC) [Entitic vol] 56.2 fL 35.1-43.9 [facility] Hematocrit Auto (Bld) [Volum e fraction]Ordered By: Aminashelia Palomo on 03-11-2024 Hematocrit (Bld) [Volume fraction] 39.8 % 37-47 [facility] Immature granulocytes/100 WB C Auto (Bld)Ordered By: [facility] Stacia on 03-11-2024 Immature granulocytes/100 WBC (Bld) 0.400 % 0.0-0.9 [facility] Comment on above: IG% - Immature Granu locytes (promyelocytes, myelocytes and metamyelocytes) > 1% indicates that a LEFT SHIFT is Present. Laboratory - Chemistry and C hemistry - challengeOrdered By: [facility] Stacia on 03-11-2024 Albumin/Globulin [Mass ratio] 0.9 {ratio} 0.9-2.4 [facility] ALP [Catalytic activity/Vol] 124 U/L 45-117 [facility] ALT [Catalytic activity/Vol] 22 U/L 13-56 [facility] CO2 [Moles/Vol] 26.0 mmol/L 21.0-32.0 [facility] Globulin (S) [Mass/Vol] 3.9 g/dL 2.2-4.2 [facility] Urea nitrogen/Creatinine [Mass ratio] 15.5 mg/mg 10-20 [facility] Laboratory - Hematology and Cell countsOrdered By: [facility] Stacia on 03-11-2024 MCH (RBC) [Entitic mass] 31.4 pg 27.0-32.0 [facility] MCHC (RBC) [Mass/Vol] 31.2 g/dL 32-36 [facility] Nucleated RBC/100 WBC (Bld) [Ratio] 0 % 0-5 [facility] Platelet mean volume (Bld) [Entitic vol] 10.0 fL 6.2-12.0 [facility] Platelets (Bld) [#/Vol] 287 10*3/uL 150-450 [facility] No Panel InformationOrdered By: Amina Palomo on 03-11-2024 Estimated GFR (MDRD) Amer 51 mL/min >60 [facility] Comment on above: GFR Calc Estimated GFR (MDRD) Non-Af Amer 43 mL/min >60 [facility] Comment on above: Non- GFR Calc RBC Auto (Bld) [#/Vol]Ordere d By: Amina Palomo on 03-11-2024 RBC (Bld) [#/Vol] 3.95 10*6/uL 4.2-5.4 [facility] Serum or plasma calcium luis enrique urement (mass/volume)Ordered By: Amina Palomo on 03-11-2024 Calcium [Mass/Vol] 9.6 mg/dL 8.5-10.1 [facility] Serum or plasma creatinine m easurement (mass/volume)Ordered By: Amina Palomo on 03-11-2024 Creatinine [Mass/Vol] 1.29 mg/dL 0.55-1.02 [facility] Comment on above: The validity of the calculated GFR & GFRAA in patients over 70 years has not been determined. Clinical correlation is essential. Serum or plasma urea nitroge n measurement (mass/volume)Ordered By: Amina Palomo on 03-11-2024 Urea nitrogen [Mass/Vol] 20 mg/dL 7-18 [facility] Thin prep Papanicolaou smear with manual screeningOrdered By: Amina Palomo on 03-11-2024 Thin prep Papanicolaou smear with manual screening 3.4 g/dL 3.2-5.0 [facility] Thin prep Papanicolaou smear with manual screening 18 U/L 15-37 [facility] Thin prep Papanicolaou smear with manual screening 6 5-15 [facility] Absolute lymphocyte countOrd ered By: Amina Palomo on 01-06-2024 Lymphocytes Auto (Unsp spec) [#/Vol] 2.27 10*3/uL 0.83-4.51 [facility] Automated lymphocyte count a s percentage of total leukocytesOrdered By: Amina Palomo on 01-06-2024 Lymphocytes/100 WBC Auto (Unsp spec) 24.1 % 19-41 [facility] Basophil percentageOrdered B y: Amina Palomo on 01-06-2024 Basophils/100 WBC (Bld) 0.8 % 0-1 [facility] Bilirubin [Mass/Vol] 0.30 mg/dL 0.20-1.00 [facility] Comment on above: For patients on eltr ombopag therapy, use of Dim[place] TBIL is not recommended. Chloride [Moles/Vol] 107 mmol/L 98-107 [facility] Eosinophils/100 WBC (Bld) 5.6 % 0-5 [facility] Glucose [Mass/Vol] 122 mg/dL 74-106 [facility] Comment on above: Fasting Glucose resu lt from 100 to 125 mg/dL suggests IMPAIRED HOMEOSTASIS per A.D.A. criteria. Hemoglobin (Bld) [Mass/Vol] 12.3 g/dL 12.0-15.0 [facility] Monocytes/100 WBC (Bld) 9.8 % 0-10 [facility] Neutrophils (Bld) [#/Vol] 5.6 10*3/uL 2.0-7.7 [facility] Neutrophils/100 WBC (Bld) 59.4 % 47-70 [facility] Potassium [Moles/Vol] 4.5 mmol/L 3.5-5.1 [facility] Protein [Mass/Vol] 7.1 g/dL 6.4-8.2 [facility] Sodium [Moles/Vol] 140 mmol/L 136-145 [facility] WBC (Bld) [#/Vol] 9.4 10*3/uL 4.4-11.0 [facility] Determination of erythrocyte mean corpuscular volume (MCV)Ordered By: Amina Palomo on 01-06-2024 MCV (RBC) [Entitic vol] 102.3 fL 81-99 [facility] Erythrocyte distribution wid th ratioOrdered By: Amina Palomo on 01-06-2024 Erythrocyte distribution width (RBC) [Ratio] 16.3 % 11.6-14.6 [facility] Erythrocyte distribution wid th standard deviationOrdered By: Amina Palomo on 01-06-2024 Erythrocyte distribution width (RBC) [Entitic vol] 60.7 fL 35.1-43.9 [facility] Hematocrit Auto (Bld) [Volum e fraction]Ordered By: Amina Palomo on 01-06-2024 Hematocrit (Bld) [Volume fraction] 40.2 % 37-47 [facility] Immature granulocytes/100 WB C Auto (Bld)Ordered By: Aminashelia Palomo on 01-06-2024 Immature granulocytes/100 WBC (Bld) 0.300 % 0.0-0.9 [facility] Comment on above: IG% - Immature Granu locytes (promyelocytes, myelocytes and metamyelocytes) > 1% indicates that a LEFT SHIFT is Present. Laboratory - Chemistry and C hemistry - challengeOrdered By: [facility] Stacia on 01-06-2024 Albumin/Globulin [Mass ratio] 1.0 {ratio} 0.9-2.4 [facility] ALP [Catalytic activity/Vol] 120 U/L 45-117 [facility] ALT [Catalytic activity/Vol] 23 U/L 13-56 [facility] CO2 [Moles/Vol] 28.0 mmol/L 21.0-32.0 [facility] Globulin (S) [Mass/Vol] 3.6 g/dL 2.2-4.2 [facility] Urea nitrogen/Creatinine [Mass ratio] 19.1 mg/mg 10-20 [facility] Laboratory - Hematology and Cell countsOrdered By: Aminashelia Palomo on 01-06-2024 MCH (RBC) [Entitic mass] 31.3 pg 27.0-32.0 [facility] MCHC (RBC) [Mass/Vol] 30.6 g/dL 32-36 [facility] Nucleated RBC/100 WBC (Bld) [Ratio] 0 % 0-5 [facility] Platelet mean volume (Bld) [Entitic vol] 10.2 fL 6.2-12.0 [facility] Platelets (Bld) [#/Vol] 265 10*3/uL 150-450 [facility] No Panel InformationOrdered By: Amina Palomo on 01-06-2024 Estimated GFR (MDRD) Amer 62 mL/min >60 [facility] Comment on above: GFR Calc Estimated GFR (MDRD) Non-Af Amer 51 mL/min >60 [facility] Comment on above: Non- GFR Calc RBC Auto (Bld) [#/Vol]Ordere d By: Amina Palomo on 01-06-2024 RBC (Bld) [#/Vol] 3.93 10*6/uL 4.2-5.4 [facility] Serum or plasma calcium luis enrique urement (mass/volume)Ordered By: Amina Palomo on 01-06-2024 Calcium [Mass/Vol] 9.6 mg/dL 8.5-10.1 [facility] Serum or plasma creatinine m easurement (mass/volume)Ordered By: Amina Palomo on 01-06-2024 Creatinine [Mass/Vol] 1.10 mg/dL 0.55-1.02 [facility] Comment on above: The validity of the calculated GFR & GFRAA in patients over 70 years has not been determined. Clinical correlation is essential. Serum or plasma urea nitroge n measurement (mass/volume)Ordered By: Amina Palomo on 01-06-2024 Urea nitrogen [Mass/Vol] 21 mg/dL 7-18 [facility] Thin prep Papanicolaou smear with manual screeningOrdered By: Amina Palomo on 01-06-2024 Thin prep Papanicolaou smear with manual screening 3.5 g/dL 3.2-5.0 [facility] Thin prep Papanicolaou smear with manual screening 16 U/L 15-37 [facility] Thin prep Papanicolaou smear with manual screening 5 5-15 [facility] Absolute lymphocyte countOrd ered By: Marciano Anaya on 10-10-2023 Lymphocytes Auto (Unsp spec) [#/Vol] 1.66 10*3/uL 0.83-4.51 [facility] Basophil percentageOrdered B y: Marciano Anaya on 10-10-2023 Basophils/100 WBC (Bld) 1.2 % 0-1 [facility] Bilirubin [Mass/Vol] 0.40 mg/dL 0.20-1.00 [facility] Comment on above: For patients on eltr ombopag therapy, use of Dim[place] TBIL is not recommended. Chloride [Moles/Vol] 104 mmol/L 98-107 [facility] Cholesterol [Mass/Vol] 214 mg/dL <200 [facility] Comment on above: <200 mg/dL Desirable 200-240 mg/dL Borderline >240 mg/dL High Risk Eosinophils/100 WBC (Bld) 6.6 % 0-5 [facility] Glucose [Mass/Vol] 93 mg/dL 74-106 [facility] Neutrophils (Bld) [#/Vol] 4.2 10*3/uL 2.0-7.7 [facility] Neutrophils/100 WBC (Bld) 61.8 % 47-70 [facility] Potassium [Moles/Vol] 4.1 mmol/L 3.5-5.1 [facility] Protein [Mass/Vol] 7.3 g/dL 6.4-8.2 [facility] Sodium [Moles/Vol] 138 mmol/L 136-145 [facility] Triglyceride [Mass/Vol] 184 mg/dL <199 [facility] Comment on above: The drugs N-Acetylcy steine and Metamizole may falsely depress this assay.Serum Triglycerides Reference Interval Normal <150 mg/dL Borderline high 150 - 199 mg/dL High 200 - 499 mg/dL Very High > or = 500 mg/dL WBC (Bld) [#/Vol] 6.8 10*3/uL 4.4-11.0 [facility] Blood erythrocytes count (nu mber/volume)Ordered By: Marciano Anaya on 10-10-2023 RBC (Bld) [#/Vol] 3.86 10*6/uL 4.2-5.4 [facility] Blood hemoglobin measurement (mass/volume)Ordered By: Marciano Anaya on 10-10-2023 Hemoglobin (Bld) [Mass/Vol] 12.1 g/dL 12.0-15.0 [facility] Blood lymphocytes/100 leukoc ytesOrdered By: Marciano Anaya on 10-10-2023 Lymphocytes/100 WBC (Bld) 24.4 % 19-41 [facility] Blood monocytes/100 leukocyt esOrdered By: Marciano Anaya on 10-10-2023 Monocytes/100 WBC (Bld) 5.7 % 0-10 [facility] Blood platelet mean volumeOr dered By: Marciano Anaya on 10-10-2023 Platelet mean volume (Bld) [Entitic vol] 10.1 fL 6.2-12.0 [facility] Determination of erythrocyte mean corpuscular volume (MCV)Ordered By: Marciano Anaya on 10-10-2023 MCV (RBC) [Entitic vol] 101.8 fL 81-99 [facility] Hematocrit Auto (Bld) [Volum e fraction]Ordered By: Marciano Anaya on 10-10-2023 Hematocrit (Bld) [Volume fraction] 39.3 % 37-47 [facility] Laboratory - Chemistry and C hemistry - challengeOrdered By: Marciano Anaya on 10-10-2023 ALP [Catalytic activity/Vol] 114 U/L 45-117 [facility] ALT [Catalytic activity/Vol] 29 U/L 13-56 [facility] CO2 [Moles/Vol] 26.0 mmol/L 21.0-32.0 [facility] Free T4 [Mass/Vol] 1.23 ng/dL 0.76-1.46 [facility] Globulin (S) [Mass/Vol] 3.8 g/dL 2.2-4.2 [facility] Urea nitrogen/Creatinine [Mass ratio] 22.8 mg/mg 10-20 [facility] Laboratory - Hematology and Cell countsOrdered By: Marciano Anaya on 10-10-2023 Erythrocyte distribution width (RBC) [Entitic vol] 55.7 fL 35.1-43.9 [facility] Erythrocyte distribution width (RBC) [Ratio] 15.0 % 11.6-14.6 [facility] Immature granulocytes/100 WBC (Bld) 0.300 % 0.0-0.9 [facility] Comment on above: IG% - Immature Granu locytes (promyelocytes, myelocytes and metamyelocytes) > 1% indicates that a LEFT SHIFT is Present. MCH (RBC) [Entitic mass] 31.3 pg 27.0-32.0 [facility] Nucleated RBC/100 WBC (Bld) [Ratio] 0 % 0-5 [facility] MCHC Auto (RBC) [Mass/Vol]Or dered By: Marciano Anaya on 10-10-2023 MCHC (RBC) [Mass/Vol] 30.8 g/dL 32-36 [facility] No Panel InformationOrdered By: Marciano Anaya on 10-10-2023 Estimated GFR (MDRD) Amer 72 mL/min >60 [facility] Comment on above: GFR Calc Estimated GFR (MDRD) Non-Af Amer 59 mL/min >60 [facility] Comment on above: Non- GFR Calc Thyroid Stimulating Hormone (TSH) 4.02 uIU/mL 0.358-3.74 [facility] Platelets bldOrdered By: Alma Delia Anaya on 10-10-2023 Platelets (Bld) [#/Vol] 266 10*3/uL 150-450 [facility] Serum or plasma albumin luis enrique urement (mass/volume)Ordered By: Marciano Anaya on 10-10-2023 Albumin [Mass/Vol] 3.5 g/dL 3.2-5.0 [facility] Serum or plasma albumin/glob ulin mass ratioOrdered By: Marciano Anaya on 10-10-2023 Albumin/Globulin [Mass ratio] 0.9 {ratio} 0.9-2.4 [facility] Serum or plasma calcium luis enrique urement (mass/volume)Ordered By: Marciano Anaya on 10-10-2023 Calcium [Mass/Vol] 8.9 mg/dL 8.5-10.1 [facility] Serum or plasma cholesterol in HDL measurement (mass/volume)Ordered By: Marciano Anaya on 10-10-2023 Cholesterol in HDL [Mass/Vol] 55 mg/dL >40 [facility] Comment on above: The drugs N-Acetylcy steine and Metamizole may falsely depress this assay. Reference Range HDL <40 mg/dL Low HDL Cholesterol HDL >or= 60 mg/dL High HDL Cholesterol Serum or plasma cholesterol in VLDL measurement (mass/volume)Ordered By: Marciano Anaya on 10-10-2023 Cholesterol in VLDL [Mass/Vol] 37 mg/dL 5-40 [facility] Serum or plasma creatinine m easurement (mass/volume)Ordered By: Marciano Anaya on 10-10-2023 Creatinine [Mass/Vol] 0.96 mg/dL 0.55-1.02 [facility] Comment on above: The validity of the calculated GFR & GFRAA in patients over 70 years has not been determined. Clinical correlation is essential. Serum or plasma low density lipoprotein (LDL) cholesterol measurement (mass/volume)Ordered By: Marciano Anaya on 10-10-2023 Cholesterol in LDL [Mass/Vol] 122 mg/dL 0-130 [facility] Serum or plasma urea nitroge n measurement (mass/volume)Ordered By: Marciano Anaya on 10-10-2023 Urea nitrogen [Mass/Vol] 22 mg/dL 7-18 [facility] Thin prep Papanicolaou smear with manual screeningOrdered By: Marciano Anaya on 10-10-2023 Thin prep Papanicolaou smear with manual screening 23 U/L 15-37 [facility] Thin prep Papanicolaou smear with manual screening 8 5-15 [facility] Whole blood hemoglobin A1c/t otal hemoglobin ratio (mass fraction)Ordered By: Marciano Anaya on 10-10-2023 HbA1c (Bld) [Mass fraction] 5.6 % 3.8-5.6 [facility] Comment on above: Normal < 5.7 % Predi abetic 5.7 - 6.4 % Diabetic >or= 6.5 % Please note range changes. Absolute lymphocyte countOrd ered By: Amina Palomo on 07-18-2023 Lymphocytes Auto (Unsp spec) [#/Vol] 1.91 10*3/uL 0.83-4.51 [facility] Basophil percentageOrdered B y: Amina Palomo on 07-18-2023 Basophils/100 WBC (Bld) 1.0 % 0-1 [facility] Bilirubin [Mass/Vol] 0.30 mg/dL 0.20-1.00 [facility] Comment on above: For patients on eltr ombopag therapy, use of Dim[place] TBIL is not recommended. Chloride [Moles/Vol] 104 mmol/L 98-107 [facility] Eosinophils/100 WBC (Bld) 4.1 % 0-5 [facility] Glucose [Mass/Vol] 108 mg/dL 74-106 [facility] Comment on above: Fasting Glucose resu lt from 100 to 125 mg/dL suggests IMPAIRED HOMEOSTASIS per A.D.A. criteria. Neutrophils (Bld) [#/Vol] 5.7 10*3/uL 2.0-7.7 [facility] Neutrophils/100 WBC (Bld) 65.4 % 47-70 [facility] Potassium [Moles/Vol] 4.2 mmol/L 3.5-5.1 [facility] Protein [Mass/Vol] 7.4 g/dL 6.4-8.2 [facility] Sodium [Moles/Vol] 137 mmol/L 136-145 [facility] WBC (Bld) [#/Vol] 8.7 10*3/uL 4.4-11.0 [facility] Blood erythrocytes count (nu mber/volume)Ordered By: Amina Palomo on 07-18-2023 RBC (Bld) [#/Vol] 3.87 10*6/uL 4.2-5.4 [facility] Blood hemoglobin measurement (mass/volume)Ordered By: Amina Palomo on 07-18-2023 Hemoglobin (Bld) [Mass/Vol] 12.2 g/dL 12.0-15.0 [facility] Blood lymphocytes/100 leukoc ytesOrdered By: Amina Palomo on 07-18-2023 Lymphocytes/100 WBC (Bld) 22.0 % 19-41 [facility] Blood monocytes/100 leukocyt esOrdered By: Amina Palomo on 07-18-2023 Monocytes/100 WBC (Bld) 6.9 % 0-10 [facility] Blood platelet mean volumeOr dered By: Amina Palomo on 07-18-2023 Platelet mean volume (Bld) [Entitic vol] 10.3 fL 6.2-12.0 [facility] Determination of erythrocyte mean corpuscular volume (MCV)Ordered By: Amina Palomo on 07-18-2023 MCV (RBC) [Entitic vol] 102.8 fL 81-99 [facility] Hematocrit Auto (Bld) [Volum e fraction]Ordered By: Amina Palomo on 07-18-2023 Hematocrit (Bld) [Volume fraction] 39.8 % 37-47 [facility] Laboratory - Chemistry and C hemistry - challengeOrdered By: Amina Palomo on 07-18-2023 ALP [Catalytic activity/Vol] 121 U/L 45-117 [facility] ALT [Catalytic activity/Vol] 17 U/L 13-56 [facility] CO2 [Moles/Vol] 27.0 mmol/L 21.0-32.0 [facility] Globulin (S) [Mass/Vol] 3.9 g/dL 2.2-4.2 [facility] Urea nitrogen/Creatinine [Mass ratio] 20.7 mg/mg 10-20 [facility] Laboratory - Hematology and Cell countsOrdered By: Amina Palomo on 07-18-2023 Erythrocyte distribution width (RBC) [Entitic vol] 55.8 fL 35.1-43.9 [facility] Erythrocyte distribution width (RBC) [Ratio] 15.1 % 11.6-14.6 [facility] Immature granulocytes/100 WBC (Bld) 0.600 % 0.0-0.9 [facility] Comment on above: IG% - Immature Granu locytes (promyelocytes, myelocytes and metamyelocytes) > 1% indicates that a LEFT SHIFT is Present. MCH (RBC) [Entitic mass] 31.5 pg 27.0-32.0 [facility] Nucleated RBC/100 WBC (Bld) [Ratio] 0 % 0-5 [facility] MCHC Auto (RBC) [Mass/Vol]Or dered By: Amina Palomo on 07-18-2023 MCHC (RBC) [Mass/Vol] 30.7 g/dL 32-36 [facility] No Panel InformationOrdered By: Amina Palomo on 07-18-2023 Estimated GFR (MDRD) Amer 76 mL/min >60 [facility] Comment on above: GFR Calc Estimated GFR (MDRD) Non-Af Amer 63 mL/min >60 [facility] Comment on above: Non- GFR Calc Platelets bldOrdered By: Dale Palomo on 07-18-2023 Platelets (Bld) [#/Vol] 281 10*3/uL 150-450 [facility] Serum or plasma albumin luis enrique urement (mass/volume)Ordered By: Amina Palomo on 07-18-2023 Albumin [Mass/Vol] 3.5 g/dL 3.2-5.0 [facility] Serum or plasma albumin/glob ulin mass ratioOrdered By: Amina Palomo on 07-18-2023 Albumin/Globulin [Mass ratio] 0.9 {ratio} 0.9-2.4 [facility] Serum or plasma calcium luis enrique urement (mass/volume)Ordered By: Amina Palomo on 07-18-2023 Calcium [Mass/Vol] 9.2 mg/dL 8.5-10.1 [facility] Serum or plasma creatinine m easurement (mass/volume)Ordered By: Amina Palomo on 07-18-2023 Creatinine [Mass/Vol] 0.92 mg/dL 0.55-1.02 [facility] Comment on above: The validity of the calculated GFR & GFRAA in patients over 70 years has not been determined. Clinical correlation is essential. Serum or plasma urea nitroge n measurement (mass/volume)Ordered By: Amina Palomo on 07-18-2023 Urea nitrogen [Mass/Vol] 19 mg/dL 7-18 [facility] Thin prep Papanicolaou smear with manual screeningOrdered By: Amina Palomo on 07-18-2023 Thin prep Papanicolaou smear with manual screening 14 U/L 15-37 [facility] Thin prep Papanicolaou smear with manual screening 6 5-15 [facility] Absolute lymphocyte countOrd ered By: Dr. Palomo on 04-21-2023 Lymphocytes Auto (Unsp spec) [#/Vol] 2.18 10*3/uL 0.83-4.51 [facility] Basophil percentageOrdered B y: Dr. Palomo on 04-21-2023 Basophils/100 WBC (Bld) 1.1 % 0-1 [facility] Bilirubin [Mass/Vol] 0.30 mg/dL 0.20-1.00 [facility] Comment on above: For patients on eltr ombopag therapy, use of Dim[employer] [place] TBIL is not recommended. Chloride [Moles/Vol] 104 mmol/L 98-107 [facility] Eosinophils/100 WBC (Bld) 6.2 % 0-5 [facility] Glucose [Mass/Vol] 102 mg/dL 74-106 [facility] Comment on above: Fasting Glucose resu lt from 100 to 125 mg/dL suggests IMPAIRED HOMEOSTASIS per A.D.A. criteria. Neutrophils (Bld) [#/Vol] 4.0 10*3/uL 2.0-7.7 [facility] Neutrophils/100 WBC (Bld) 54.7 % 47-70 [facility] Potassium [Moles/Vol] 4.7 mmol/L 3.5-5.1 [facility] Protein [Mass/Vol] 7.5 g/dL 6.4-8.2 [facility] Sodium [Moles/Vol] 138 mmol/L 136-145 [facility] WBC (Bld) [#/Vol] 7.4 10*3/uL 4.4-11.0 [facility] Blood erythrocytes count (nu mber/volume)Ordered By: Dr. Palomo on 04-21-2023 RBC (Bld) [#/Vol] 3.96 10*6/uL 4.2-5.4 [facility] Blood hemoglobin measurement (mass/volume)Ordered By: Dr. Palomo on 04-21-2023 Hemoglobin (Bld) [Mass/Vol] 12.3 g/dL 12.0-15.0 [facility] Blood lymphocytes/100 leukoc ytesOrdered By: Dr. Palomo on 04-21-2023 Lymphocytes/100 WBC (Bld) 29.5 % 19-41 [facility] Blood monocytes/100 leukocyt esOrdered By: Dr. Palomo on 04-21-2023 Monocytes/100 WBC (Bld) 8.0 % 0-10 [facility] Blood platelet mean volumeOr dered By: Dr. Palomo on 04-21-2023 Platelet mean volume (Bld) [Entitic vol] 10.3 fL 6.2-12.0 [facility] Determination of erythrocyte mean corpuscular volume (MCV)Ordered By: Dr. Palomo on 04-21-2023 MCV (RBC) [Entitic vol] 102.0 fL 81-99 [facility] Hematocrit Auto (Bld) [Volum e fraction]Ordered By: Dr. Palomo on 04-21-2023 Hematocrit (Bld) [Volume fraction] 40.4 % 37-47 [facility] Laboratory - Chemistry and C hemistry - challengeOrdered By: Dr. Palomo on 04-21-2023 ALP [Catalytic activity/Vol] 134 U/L 45-117 [facility] ALT [Catalytic activity/Vol] 15 U/L 13-56 [facility] CO2 [Moles/Vol] 29.0 mmol/L 21.0-32.0 [facility] Globulin (S) [Mass/Vol] 3.9 g/dL 2.2-4.2 [facility] Urea nitrogen/Creatinine [Mass ratio] 17.9 mg/mg 10-20 [facility] Laboratory - Hematology and Cell countsOrdered By: Dr. Palomo on 04-21-2023 Erythrocyte distribution width (RBC) [Entitic vol] 55.9 fL 35.1-43.9 [facility] Erythrocyte distribution width (RBC) [Ratio] 14.9 % 11.6-14.6 [facility] Immature granulocytes/100 WBC (Bld) 0.500 % 0.0-0.9 [facility] Comment on above: IG% - Immature Granu locytes (promyelocytes, myelocytes and metamyelocytes) > 1% indicates that a LEFT SHIFT is Present. MCH (RBC) [Entitic mass] 31.1 pg 27.0-32.0 [facility] Nucleated RBC/100 WBC (Bld) [Ratio] 0 % 0-5 [facility] MCHC Auto (RBC) [Mass/Vol]Or dered By: Dr. Palomo on 04-21-2023 MCHC (RBC) [Mass/Vol] 30.4 g/dL 32-36 [facility] No Panel InformationOrdered By: Dr. Palomo on 04-21-2023 Estimated GFR (MDRD) Amer 73 mL/min >60 [facility] Comment on above: GFR Calc Estimated GFR (MDRD) Non-Af Amer 61 mL/min >60 [facility] Comment on above: Non- GFR Calc Platelets bldOrdered By: Dr. Palomo on 04-21-2023 Platelets (Bld) [#/Vol] 270 10*3/uL 150-450 [facility] Serum or plasma albumin luis enrique urement (mass/volume)Ordered By: Dr. Palomo on 04-21-2023 Albumin [Mass/Vol] 3.6 g/dL 3.2-5.0 [facility] Serum or plasma albumin/glob ulin mass ratioOrdered By: Dr. Palomo on 04-21-2023 Albumin/Globulin [Mass ratio] 0.9 {ratio} 0.9-2.4 [facility] Serum or plasma calcium luis enrique urement (mass/volume)Ordered By: Dr. Palomo on 04-21-2023 Calcium [Mass/Vol] 9.3 mg/dL 8.5-10.1 [facility] Serum or plasma creatinine m easurement (mass/volume)Ordered By: Dr. Palomo on 04-21-2023 Creatinine [Mass/Vol] 0.95 mg/dL 0.55-1.02 [facility] Comment on above: The validity of the calculated GFR & GFRAA in patients over 70 years has not been determined. Clinical correlation is essential. Serum or plasma urea nitroge n measurement (mass/volume)Ordered By: Dr. Palomo on 04-21-2023 Urea nitrogen [Mass/Vol] 17 mg/dL 7-18 [facility] Thin prep Papanicolaou smear with manual screeningOrdered By: Dr. Palomo on 04-21-2023 Thin prep Papanicolaou smear with manual screening 15 U/L 15-37 [facility] Thin prep Papanicolaou smear with manual screening 5 5-15 [facility] Absolute lymphocyte countOrd ered By: Dr. Palomo on 01-20-2023 Lymphocytes Auto (Unsp spec) [#/Vol] 2.19 10*3/uL 0.83-4.51 [facility] Basophil percentageOrdered B y: Dr. Palomo on 01-20-2023 Basophils/100 WBC (Bld) 0.9 % 0-1 [facility] Bilirubin [Mass/Vol] 0.30 mg/dL 0.20-1.00 [facility] Comment on above: For patients on eltr ombopag therapy, use of [employer] [place] TBIL is not recommended. Chloride [Moles/Vol] 103 mmol/L 98-107 [facility] Eosinophils/100 WBC (Bld) 6.6 % 0-5 [facility] Glucose [Mass/Vol] 81 mg/dL 74-106 [facility] Neutrophils (Bld) [#/Vol] 5.2 10*3/uL 2.0-7.7 [facility] Neutrophils/100 WBC (Bld) 57.8 % 47-70 [facility] Potassium [Moles/Vol] 4.2 mmol/L 3.5-5.1 [facility] Protein [Mass/Vol] 7.1 g/dL 6.4-8.2 [facility] Sodium [Moles/Vol] 141 mmol/L 136-145 [facility] WBC (Bld) [#/Vol] 9.0 10*3/uL 4.4-11.0 [facility] Blood erythrocytes count (nu mber/volume)Ordered By: Dr. Palomo on 01-20-2023 RBC (Bld) [#/Vol] 3.76 10*6/uL 4.2-5.4 [facility] Blood hemoglobin measurement (mass/volume)Ordered By: Dr. Palomo on 01-20-2023 Hemoglobin (Bld) [Mass/Vol] 12.0 g/dL 12.0-15.0 [facility] Blood lymphocytes/100 leukoc ytesOrdered By: Dr. Palomo on 01-20-2023 Lymphocytes/100 WBC (Bld) 24.4 % 19-41 [facility] Blood monocytes/100 leukocyt esOrdered By: Dr. Palomo on 01-20-2023 Monocytes/100 WBC (Bld) 10.0 % 0-10 [facility] Blood platelet mean volumeOr dered By: Dr. Palomo on 01-20-2023 Platelet mean volume (Bld) [Entitic vol] 10.2 fL 6.2-12.0 [facility] Determination of erythrocyte mean corpuscular volume (MCV)Ordered By: Dr. Palomo on 01-20-2023 MCV (RBC) [Entitic vol] 104.0 fL 81-99 [facility] Hematocrit Auto (Bld) [Volum e fraction]Ordered By: Dr. Palomo on 01-20-2023 Hematocrit (Bld) [Volume fraction] 39.1 % 37-47 [facility] Laboratory - Chemistry and C hemistry - challengeOrdered By: Dr. Palomo on 01-20-2023 ALP [Catalytic activity/Vol] 109 U/L 45-117 [facility] ALT [Catalytic activity/Vol] 18 U/L 13-56 [facility] CO2 [Moles/Vol] 30.0 mmol/L 21.0-32.0 [facility] Globulin (S) [Mass/Vol] 3.7 g/dL 2.2-4.2 [facility] Urea nitrogen/Creatinine [Mass ratio] 24.8 mg/mg 10-20 [facility] Laboratory - Hematology and Cell countsOrdered By: Dr. Palomo on 01-20-2023 Erythrocyte distribution width (RBC) [Entitic vol] 58.1 fL 35.1-43.9 [facility] Erythrocyte distribution width (RBC) [Ratio] 15.6 % 11.6-14.6 [facility] Immature granulocytes/100 WBC (Bld) 0.300 % 0.0-0.9 [facility] Comment on above: IG% - Immature Granu locytes (promyelocytes, myelocytes and metamyelocytes) > 1% indicates that a LEFT SHIFT is Present. MCH (RBC) [Entitic mass] 31.9 pg 27.0-32.0 [facility] Nucleated RBC/100 WBC (Bld) [Ratio] 0 % 0-5 [facility] MCHC Auto (RBC) [Mass/Vol]Or dered By: Dr. Palomo on 01-20-2023 MCHC (RBC) [Mass/Vol] 30.7 g/dL 32-36 [facility] No Panel InformationOrdered By: Dr. Palomo on 01-20-2023 Estimated GFR (MDRD) Amer 75 mL/min >60 [facility] Comment on above: GFR Calc Estimated GFR (MDRD) Non-Af Amer 62 mL/min >60 [facility] Comment on above: Non- GFR Calc Platelets bldOrdered By: Dr. Palomo on 01-20-2023 Platelets (Bld) [#/Vol] 265 10*3/uL 150-450 [facility] Serum or plasma albumin luis enrique urement (mass/volume)Ordered By: Dr. Palomo on 01-20-2023 Albumin [Mass/Vol] 3.4 g/dL 3.2-5.0 [facility] Serum or plasma albumin/glob ulin mass ratioOrdered By: Dr. Palomo on 01-20-2023 Albumin/Globulin [Mass ratio] 0.9 {ratio} 0.9-2.4 [facility] Serum or plasma calcium luis enrique urement (mass/volume)Ordered By: Dr. Palomo on 01-20-2023 Calcium [Mass/Vol] 9.4 mg/dL 8.5-10.1 [facility] Serum or plasma creatinine m easurement (mass/volume)Ordered By: Dr. Palomo on 01-20-2023 Creatinine [Mass/Vol] 0.93 mg/dL 0.55-1.02 [facility] Comment on above: The validity of the calculated GFR & GFRAA in patients over 70 years has not been determined. Clinical correlation is essential. Serum or plasma urea nitroge n measurement (mass/volume)Ordered By: Dr. Palomo on 01-20-2023 Urea nitrogen [Mass/Vol] 23 mg/dL 7-18 [facility] Thin prep Papanicolaou smear with manual screeningOrdered By: Dr. Palomo on 01-20-2023 Thin prep Papanicolaou smear with manual screening 17 U/L 15-37 [facility] Thin prep Papanicolaou smear with manual screening 8 5-15 [facility] Absolute lymphocyte countOrd ered By: Dr. Anaya on 10-30-2022 Lymphocytes Auto (Unsp spec) [#/Vol] 1.72 10*3/uL 0.83-4.51 [facility] Basophil percentageOrdered B y: Dr. Anaya on 10-30-2022 Basophils/100 WBC (Bld) 0.6 % 0-1 [facility] Bilirubin [Mass/Vol] 0.30 mg/dL 0.20-1.00 [facility] Comment on above: For patients on eltr ombopag therapy, use of Dim[employer] [place] TBIL is not recommended. Chloride [Moles/Vol] 103 mmol/L 98-107 [facility] Eosinophils/100 WBC (Bld) 3.7 % 0-5 [facility] Glucose [Mass/Vol] 95 mg/dL 74-106 [facility] Neutrophils (Bld) [#/Vol] 5.4 10*3/uL 2.0-7.7 [facility] Neutrophils/100 WBC (Bld) 66.2 % 47-70 [facility] Potassium [Moles/Vol] 4.2 mmol/L 3.5-5.1 [facility] Protein [Mass/Vol] 6.7 g/dL 6.4-8.2 [facility] Sodium [Moles/Vol] 139 mmol/L 136-145 [facility] WBC (Bld) [#/Vol] 8.2 10*3/uL 4.4-11.0 [facility] Blood erythrocytes count (nu mber/volume)Ordered By: Dr. Anaya on 10-30-2022 RBC (Bld) [#/Vol] 3.89 10*6/uL 4.2-5.4 [facility] Blood hemoglobin measurement (mass/volume)Ordered By: Dr. Anaya on 10-30-2022 Hemoglobin (Bld) [Mass/Vol] 12.3 g/dL 12.0-15.0 [facility] Blood lymphocytes/100 leukoc ytesOrdered By: Dr. Anaya on 10-30-2022 Lymphocytes/100 WBC (Bld) 21.1 % 19-41 [facility] Blood monocytes/100 leukocyt esOrdered By: Dr. Anaya on 10-30-2022 Monocytes/100 WBC (Bld) 8.0 % 0-10 [facility] Blood platelet mean volumeOr dered By: Dr. Anaya on 10-30-2022 Platelet mean volume (Bld) [Entitic vol] 10.0 fL 6.2-12.0 [facility] Determination of erythrocyte mean corpuscular volume (MCV)Ordered By: Dr. Anaya on 10-30-2022 MCV (RBC) [Entitic vol] 101.0 fL 81-99 [facility] Hematocrit Auto (Bld) [Volum e fraction]Ordered By: Dr. Anaya on 10-30-2022 Hematocrit (Bld) [Volume fraction] 39.3 % 37-47 [facility] Laboratory - Chemistry and C hemistry - challengeOrdered By: Dr. Anaya on 10-30-2022 ALP [Catalytic activity/Vol] 114 U/L 45-117 [facility] ALT [Catalytic activity/Vol] 21 U/L 13-56 [facility] [facility] CO2 [Moles/Vol] 29.0 mmol/L 21.0-32.0 [facility] Globulin (S) [Mass/Vol] 3.3 g/dL 2.2-4.2 [facility] Urea nitrogen/Creatinine [Mass ratio] 17.5 mg/mg 10-20 [facility] Free T4 [Mass/Vol] 1.11 ng/dL 0.76-1.46 [facility] Laboratory - Hematology and Cell countsOrdered By: Dr. Anaya on 10-30-2022 Erythrocyte distribution width (RBC) [Entitic vol] 53.7 fL 35.1-43.9 [facility] Erythrocyte distribution width (RBC) [Ratio] 14.6 % 11.6-14.6 [facility] Immature granulocytes/100 WBC (Bld) 0.400 % 0.0-0.9 [facility] Comment on above: IG% - Immature Granu locytes (promyelocytes, myelocytes and metamyelocytes) > 1% indicates that a LEFT SHIFT is Present. MCH (RBC) [Entitic mass] 31.6 pg 27.0-32.0 [facility] Nucleated RBC/100 WBC (Bld) [Ratio] 0 % 0-5 [facility] MCHC Auto (RBC) [Mass/Vol]Or dered By: Dr. Anaya on 10-30-2022 MCHC (RBC) [Mass/Vol] 31.3 g/dL 32-36 [facility] No Panel InformationOrdered By: Dr. Anaya on 10-30-2022 Estimated GFR (MDRD) Amer 72 mL/min >60 [facility] Comment on above: GFR Calc Estimated GFR (MDRD) Non-Af Amer 59 mL/min >60 [facility] Comment on above: Non- GFR Calc Thyroid Stimulating Hormone (TSH) 4.05 uIU/mL 0.358-3.74 [facility] Platelets bldOrdered By: Dr. Anaya on 10-30-2022 Platelets (Bld) [#/Vol] 277 10*3/uL 150-450 [facility] Serum or plasma albumin luis enrique urement (mass/volume)Ordered By: Dr. Anaya on 10-30-2022 Albumin [Mass/Vol] 3.4 g/dL 3.2-5.0 [facility] Serum or plasma albumin/glob ulin mass ratioOrdered By: Dr. Anaya on 10-30-2022 Albumin/Globulin [Mass ratio] 1.0 {ratio} 0.9-2.4 [facility] Serum or plasma calcium luis enrique urement (mass/volume)Ordered By: Dr. Anaya on 10-30-2022 Calcium [Mass/Vol] 9.5 mg/dL 8.5-10.1 [facility] Serum or plasma creatinine m easurement (mass/volume)Ordered By: Dr. Anaya on 10-30-2022 Creatinine [Mass/Vol] 0.97 mg/dL 0.55-1.02 [facility] Comment on above: The validity of the calculated GFR & GFRAA in patients over 70 years has not been determined. Clinical correlation is essential. Serum or plasma urea nitroge n measurement (mass/volume)Ordered By: Dr. Anaya on 10-30-2022 Urea nitrogen [Mass/Vol] 17 mg/dL 7-18 [facility] Thin prep Papanicolaou smear with manual screeningOrdered By: Dr. Anaya on 10-30-2022 Thin prep Papanicolaou smear with manual screening 17 U/L 15-37 [facility] Thin prep Papanicolaou smear with manual screening 7 5-15 [facility] Whole blood hemoglobin A1c/t otal hemoglobin ratio (mass fraction)Ordered By: Dr. Anaya on 10-30-2022 HbA1c (Bld) [Mass fraction] 5.9 % 3.8-5.6 [facility] Comment on above: Normal < 5.7 % Predi abetic 5.7 - 6.4 % Diabetic >or= 6.5 % Please note range changes. Absolute lymphocyte counton 08-17-2022 Lymphocytes Auto (Unsp spec) [#/Vol] 2.04 10*3/uL 0.83-4.51 [facility] Work Phone: Basophil percentageon 2021 Basophils/100 WBC (Bld) 1.0 % 0-1 [facility] Work Phone: Bilirubin [Mass/Vol] 0.30 mg/dL 0.20-1.00 [facility] Work Phone: Comment on above: For patients on eltr ombopag therapy, use of [employer] [place] TBIL is not recommended. Chloride [Moles/Vol] 106 mmol/L 98-107 [facility] Work Phone: Eosinophils/100 WBC (Bld) 6.9 % 0-5 [facility] Work Phone: Glucose [Mass/Vol] 113 mg/dL 74-106 [facility] Work Phone: Comment on above: Fasting Glucose resu lt from 100 to 125 mg/dL suggests IMPAIRED HOMEOSTASIS per A.D.A. criteria. Neutrophils (Bld) [#/Vol] 4.8 10*3/uL 2.0-7.7 [facility] Work Phone: Neutrophils/100 WBC (Bld) 59.6 % 47-70 [facility] Work Phone: Potassium [Moles/Vol] 4.3 mmol/L 3.5-5.1 [facility] Work Phone: Protein [Mass/Vol] 6.8 g/dL 6.4-8.2 [facility] Work Phone: Sodium [Moles/Vol] 142 mmol/L 136-145 [facility] Work Phone: WBC (Bld) [#/Vol] 8.1 10*3/uL 4.4-11.0 [facility] Work Phone: Blood erythrocytes count (nu mber/volume)on 08-17-2022 RBC (Bld) [#/Vol] 3.62 10*6/uL 4.2-5.4 [facility] Work Phone: Blood hemoglobin measurement (mass/volume)on 08-17-2022 Hemoglobin (Bld) [Mass/Vol] 11.7 g/dL 12.0-15.0 [facility] Work Phone: Blood lymphocytes/100 leukoc yteson 08-17-2022 Lymphocytes/100 WBC (Bld) 25.1 % 19-41 [facility] Work Phone: [phone] Blood monocytes/100 leukocyt eson 08-17-2022 Monocytes/100 WBC (Bld) 7.0 % 0-10 [facility] Work Phone: [phone] Blood platelet mean volumeon 08-17-2022 Platelet mean volume (Bld) [Entitic vol] 9.5 fL 6.2-12.0 [facility] Work Phone: [phone] Determination of erythrocyte mean corpuscular volume (MCV)on 08-17-2022 MCV (RBC) [Entitic vol] 103.3 fL 81-99 [facility] Work Phone: [phone] Hematocrit Auto (Bld) [Volum e fraction]on 08-17-2022 Hematocrit (Bld) [Volume fraction] 37.4 % 37-47 [facility] Work Phone: Laboratory - Chemistry and C hemistry - challengeon 08-17-2022 ALP [Catalytic activity/Vol] 114 U/L 45-117 [facility] Work Phone: [phone] ALT [Catalytic activity/Vol] 19 U/L 13-56 [facility] Work Phone: [phone] CO2 [Moles/Vol] 31.0 mmol/L 21.0-32.0 [facility] Work Phone: [phone] Globulin (S) [Mass/Vol] 3.6 g/dL 2.2-4.2 [facility] Work Phone: [phone] Urea nitrogen/Creatinine [Mass ratio] 24.0 mg/mg 10-20 [facility] Work Phone: [phone] Laboratory - Hematology and Cell countson 08-17-2022 Erythrocyte distribution width (RBC) [Entitic vol] 55.2 fL 35.1-43.9 [facility] Work Phone: [phone] Erythrocyte distribution width (RBC) [Ratio] 14.6 % 11.6-14.6 [facility] Work Phone: [phone] Immature granulocytes/100 WBC (Bld) 0.400 % 0.0-0.9 [facility] Work Phone: [phone] Comment on above: IG% - Immature Granu locytes (promyelocytes, myelocytes and metamyelocytes) > 1% indicates that a LEFT SHIFT is Present. MCH (RBC) [Entitic mass] 32.3 pg 27.0-32.0 [facility] Work Phone: [phone] Nucleated RBC/100 WBC (Bld) [Ratio] 0 % 0-5 [facility] Work Phone: [phone] MCHC Auto (RBC) [Mass/Vol]on 08-17-2022 MCHC (RBC) [Mass/Vol] 31.3 g/dL 32-36 [facility] Work Phone: No Panel Informationon 08-17 Estimated GFR (MDRD) Amer 85 mL/min >60 [facility] Work Phone: Comment on above: GFR Calc Estimated GFR (MDRD) Non-Af Amer 70 mL/min >60 [facility] Work Phone: Comment on above: Non- GFR Calc Platelets bldon 08-17-2022 Platelets (Bld) [#/Vol] 244 10*3/uL 150-450 [facility] Work Phone: [phone] Serum or plasma albumin luis enrique urement (mass/volume)on 08-17-2022 Albumin [Mass/Vol] 3.2 g/dL 3.2-5.0 [facility] Work Phone: [phone] Serum or plasma albumin/glob ulin mass ratioon 08-17-2022 Albumin/Globulin [Mass ratio] 0.9 {ratio} 0.9-2.4 [facility] Work Phone: [phone] Serum or plasma calcium luis enrique urement (mass/volume)on 08-17-2022 Calcium [Mass/Vol] 9.3 mg/dL 8.5-10.1 [facility] Work Phone: [phone] Serum or plasma creatinine m easurement (mass/volume)on 08-17-2022 Creatinine [Mass/Vol] 0.84 mg/dL 0.55-1.02 [facility] Work Phone: [phone] Comment on above: The validity of the calculated GFR & GFRAA in patients over 70 years has not been determined. Clinical correlation is essential. Serum or plasma urea nitroge n measurement (mass/volume)on 08-17-2022 Urea nitrogen [Mass/Vol] 20 mg/dL 7-18 [facility] Work Phone: [phone] Thin prep Papanicolaou smear with manual screeningon 08-17-2022 Thin prep Papanicolaou smear with manual screening 12 U/L 15-37 [facility] Work Phone: [phone] Thin prep Papanicolaou smear with manual screening 5 5-15 [facility] Work Phone: [phone] Absolute lymphocyte counton 05-24-2022 Lymphocytes Auto (Unsp spec) [#/Vol] 2.37 10*3/uL 0.83-4.51 [facility] Work Phone: Basophil percentageon 2021 Basophils/100 WBC (Bld) 1.1 % 0-1 [facility] Work Phone: [phone] Bilirubin [Mass/Vol] 0.40 mg/dL 0.20-1.00 [facility] Work Phone: [phone] Comment on above: For patients on eltr ombopag therapy, use of [employer] [place] TBIL is not recommended. Chloride [Moles/Vol] 102 mmol/L 98-107 [facility] Work Phone: Eosinophils/100 WBC (Bld) 3.7 % 0-5 [facility] Work Phone: [phone] Glucose [Mass/Vol] 109 mg/dL 74-106 [facility] Work Phone: Comment on above: Fasting Glucose resu lt from 100 to 125 mg/dL suggests IMPAIRED HOMEOSTASIS per A.D.A. criteria. Neutrophils (Bld) [#/Vol] 5.2 10*3/uL 2.0-7.7 [facility] Work Phone: Neutrophils/100 WBC (Bld) 60.9 % 47-70 [facility] Work Phone: [phone] Potassium [Moles/Vol] 4.1 mmol/L 3.5-5.1 [facility] Work Phone: [phone] Protein [Mass/Vol] 7.4 g/dL 6.4-8.2 [facility] Work Phone: [phone] Sodium [Moles/Vol] 137 mmol/L 136-145 [facility] Work Phone: [phone] WBC (Bld) [#/Vol] 8.5 10*3/uL 4.4-11.0 [facility] Work Phone: [phone] Blood erythrocytes count (nu mber/volume)on 05-24-2022 RBC (Bld) [#/Vol] 3.79 10*6/uL 4.2-5.4 [facility] Work Phone: [phone] Blood hemoglobin measurement (mass/volume)on 05-24-2022 Hemoglobin (Bld) [Mass/Vol] 12.1 g/dL 12.0-15.0 [facility] Work Phone: [phone] Blood lymphocytes/100 leukoc yteson 05-24-2022 Lymphocytes/100 WBC (Bld) 27.8 % 19-41 [facility] Work Phone: [phone] Blood monocytes/100 leukocyt eson 05-24-2022 Monocytes/100 WBC (Bld) 6.1 % 0-10 [facility] Work Phone: [phone] Blood platelet mean volumeon 05-24-2022 Platelet mean volume (Bld) [Entitic vol] 10.5 fL 6.2-12.0 [facility] Work Phone: [phone] Determination of erythrocyte mean corpuscular volume (MCV)on 05-24-2022 MCV (RBC) [Entitic vol] 102.9 fL 81-99 [facility] Work Phone: [phone] Hematocrit Auto (Bld) [Volum e fraction]on 05-24-2022 Hematocrit (Bld) [Volume fraction] 39.0 % 37-47 [facility] Work Phone: [phone] Laboratory - Chemistry and C hemistry - challengeon 05-24-2022 ALP [Catalytic activity/Vol] 125 U/L 45-117 [facility] Work Phone: [phone] ALT [Catalytic activity/Vol] 20 U/L 13-56 [facility] Work Phone: [phone] CO2 [Moles/Vol] 29.0 mmol/L 21.0-32.0 [facility] Work Phone: [phone] Globulin (S) [Mass/Vol] 3.7 g/dL 2.2-4.2 [facility] Work Phone: [phone] Urea nitrogen/Creatinine [Mass ratio] 16.4 mg/mg 10-20 [facility] Work Phone: [phone] Laboratory - Hematology and Cell countson 05-24-2022 Erythrocyte distribution width (RBC) [Entitic vol] 57.4 fL 35.1-43.9 [facility] Work Phone: [phone] Erythrocyte distribution width (RBC) [Ratio] 15.5 % 11.6-14.6 [facility] Work Phone: [phone] Immature granulocytes/100 WBC (Bld) 0.400 % 0.0-0.9 [facility] Work Phone: [phone] Comment on above: IG% - Immature Granu locytes (promyelocytes, myelocytes and metamyelocytes) > 1% indicates that a LEFT SHIFT is Present. MCH (RBC) [Entitic mass] 31.9 pg 27.0-32.0 [facility] Work Phone: Nucleated RBC/100 WBC (Bld) [Ratio] 0 % 0-5 [facility] Work Phone: [phone] MCHC Auto (RBC) [Mass/Vol]on 05-24-2022 MCHC (RBC) [Mass/Vol] 31.0 g/dL 32-36 [facility] Work Phone: No Panel Informationon 05-24 Estimated GFR (MDRD) Amer 71 mL/min >60 [facility] Work Phone: Comment on above: GFR Calc Estimated GFR (MDRD) Non-Af Amer 59 mL/min >60 [facility] Work Phone: Comment on above: Non- GFR Calc Platelets bldon 05-24-2022 Platelets (Bld) [#/Vol] 283 10*3/uL 150-450 [facility] Work Phone: Serum or plasma albumin luis enrique urement (mass/volume)on 05-24-2022 Albumin [Mass/Vol] 3.7 g/dL 3.2-5.0 [facility] Work Phone: Serum or plasma albumin/glob ulin mass ratioon 05-24-2022 Albumin/Globulin [Mass ratio] 1.0 {ratio} 0.9-2.4 [facility] Work Phone: [phone] Serum or plasma calcium luis enrique urement (mass/volume)on 05-24-2022 Calcium [Mass/Vol] 9.5 mg/dL 8.5-10.1 [facility] Work Phone: Serum or plasma creatinine m easurement (mass/volume)on 05-24-2022 Creatinine [Mass/Vol] 0.97 mg/dL 0.55-1.02 [facility] Work Phone: Comment on above: The validity of the calculated GFR & GFRAA in patients over 70 years has not been determined. Clinical correlation is essential. Serum or plasma urea nitroge n measurement (mass/volume)on 05-24-2022 Urea nitrogen [Mass/Vol] 16 mg/dL 7-18 [facility] Work Phone: Thin prep Papanicolaou smear with manual screeningon 05-24-2022 Thin prep Papanicolaou smear with manual screening 18 U/L 15-37 [facility] Work Phone: Thin prep Papanicolaou smear with manual screening 6 5-15 [facility] Work Phone: Absolute lymphocyte counton 02-27-2022 Lymphocytes Auto (Unsp spec) [#/Vol] 2.19 10*3/uL 0.83-4.51 [facility] Work Phone: Basophil percentageon 2021 Basophils/100 WBC (Bld) 1.1 % 0-1 [facility] Work Phone: Bilirubin [Mass/Vol] 0.30 mg/dL 0.20-1.00 [facility] Work Phone: Comment on above: For patients on eltr ombopag therapy, use of [employer] [place] TBIL is not recommended. Chloride [Moles/Vol] 104 mmol/L 98-107 [facility] Work Phone: Eosinophils/100 WBC (Bld) 4.7 % 0-5 [facility] Work Phone: Glucose [Mass/Vol] 129 mg/dL 74-106 [facility] Work Phone: Comment on above: Fasting Glucose resu lt greater than or equal to 126 mg/dL suggests DIABETES MELLITUS per A.D.A. criteria. Neutrophils (Bld) [#/Vol] 4.4 10*3/uL 2.0-7.7 [facility] Work Phone: Neutrophils/100 WBC (Bld) 58.3 % 47-70 [facility] Work Phone: Potassium [Moles/Vol] 4.0 mmol/L 3.5-5.1 [facility] Work Phone: Protein [Mass/Vol] 7.4 g/dL 6.4-8.2 [facility] Work Phone: Sodium [Moles/Vol] 139 mmol/L 136-145 [facility] Work Phone: WBC (Bld) [#/Vol] 7.5 10*3/uL 4.4-11.0 [facility] Work [facility]: [phone] Blood erythrocytes count (nu mber/volume)on 02-27-2022 RBC (Bld) [#/Vol] 4.11 10*6/uL 4.2-5.4 [facility]: [phone] Blood hemoglobin measurement (mass/volume)on 02-27-2022 Hemoglobin (Bld) [Mass/Vol] 12.6 g/dL 12.0-15.0 [facility] Work Phone: [phone] Blood lymphocytes/100 leukoc yteson 02-27-2022 Lymphocytes/100 WBC (Bld) 29.3 % 19-41 [facility] Work Phone: [phone] Blood monocytes/100 leukocyt eson 02-27-2022 Monocytes/100 WBC (Bld) 6.3 % 0-10 [facility] Work Phone: [phone] Blood platelet mean volumeon 02-27-2022 Platelet mean volume (Bld) [Entitic vol] 10.2 fL 6.2-12.0 [facility] Work Phone: Determination of erythrocyte mean corpuscular volume (MCV)on 02-27-2022 MCV (RBC) [Entitic vol] 97.6 fL 81-99 [facility] Work Phone: Hematocrit Auto (Bld) [Volum e fraction]on 02-27-2022 Hematocrit (Bld) [Volume fraction] 40.1 % 37-47 [facility] Work Phone: Laboratory - Chemistry and C hemistry - challengeon 02-27-2022 ALP [Catalytic activity/Vol] 115 U/L 45-117 [facility] Work Phone: [phone] ALT [Catalytic activity/Vol] 16 U/L 13-56 [facility] Work Phone: [phone] CO2 [Moles/Vol] 26.0 mmol/L 21.0-32.0 [facility] Work Phone: [phone] Globulin (S) [Mass/Vol] 4.1 g/dL 2.2-4.2 [facility] Work Phone: [phone] Urea nitrogen/Creatinine [Mass ratio] 20.0 mg/mg 10-20 [facility] Work Phone: [phone] Laboratory - Hematology and Cell countson 02-27-2022 Erythrocyte distribution width (RBC) [Entitic vol] 54.3 fL 35.1-43.9 [facility] Work Phone: [phone] Erythrocyte distribution width (RBC) [Ratio] 15.1 % 11.6-14.6 [facility] Work Phone: [phone] Immature granulocytes/100 WBC (Bld) 0.300 % 0.0-0.9 [facility] Work Phone: [phone] Comment on above: IG% - Immature Granu locytes (promyelocytes, myelocytes and metamyelocytes) > 1% indicates that a LEFT SHIFT is Present. MCH (RBC) [Entitic mass] 30.7 pg 27.0-32.0 [facility] Work Phone: [phone] Nucleated RBC/100 WBC (Bld) [Ratio] 0 % 0-5 [facility] Work Phone: [phone] MCHC Auto (RBC) [Mass/Vol]on 02-27-2022 MCHC (RBC) [Mass/Vol] 31.4 g/dL 32-36 [facility] Work Phone: [phone] No Panel Informationon 02-27 Estimated GFR (MDRD) Amer 69 mL/min >60 [facility] Work Phone: [phone] Comment on above: GFR Calc Estimated GFR (MDRD) Non-Af Amer 57 mL/min >60 [facility] Work Phone: [phone] Comment on above: Non- GFR Calc Platelets bldon 02-27-2022 Platelets (Bld) [#/Vol] 307 10*3/uL 150-450 [facility] Work Phone: [phone] Serum or plasma albumin luis enrique urement (mass/volume)on 02-27-2022 Albumin [Mass/Vol] 3.3 g/dL 3.2-5.0 [facility] Work Phone: [phone] Serum or plasma albumin/glob ulin mass ratioon 02-27-2022 Albumin/Globulin [Mass ratio] 0.8 {ratio} 0.9-2.4 [facility] Work Phone: [phone] Serum or plasma calcium luis enrique urement (mass/volume)on 02-27-2022 Calcium [Mass/Vol] 9.3 mg/dL 8.5-10.1 [facility] Work Phone: [phone] Serum or plasma creatinine m easurement (mass/volume)on 02-27-2022 Creatinine [Mass/Vol] 1.00 mg/dL 0.55-1.02 [facility] Work Phone: Comment on above: The validity of the calculated GFR & GFRAA in patients over 70 years has not been determined. Clinical correlation is essential. Serum or plasma urea nitroge n measurement (mass/volume)on 02-27-2022 Urea nitrogen [Mass/Vol] 20 mg/dL 7-18 [facility] Work Phone: Thin prep Papanicolaou smear with manual screeningon 02-27-2022 Thin prep Papanicolaou smear with manual screening 12 U/L 15-37 [facility] Work Phone: [phone] Thin prep Papanicolaou smear with manual screening 9 5-15 [facility] Work Phone: [phone] Absolute lymphocyte counton 2021 Lymphocytes Auto (Unsp spec) [#/Vol] 2.48 10*3/uL 0.83-4.51 [facility] Work Phone: Basophil percentageon 2021 Basophils/100 WBC (Bld) 0.8 % 0-1 [facility] Work Phone: [phone] Bilirubin [Mass/Vol] 0.50 mg/dL 0.20-1.00 [facility] Work Phone: [phone] Comment on above: For patients on eltr ombopag therapy, use of [employer] [place] TBIL is not recommended. Chloride [Moles/Vol] 102 mmol/L 98-107 [facility] Work Phone: Eosinophils/100 WBC (Bld) 2.5 % 0-5 [facility] Work Phone: Glucose [Mass/Vol] 112 mg/dL 74-106 [facility] Work Phone: Comment on above: Fasting Glucose resu lt from 100 to 125 mg/dL suggests IMPAIRED HOMEOSTASIS per A.D.A. criteria. Neutrophils (Bld) [#/Vol] 7.7 10*3/uL 2.0-7.7 [facility] Work Phone: Neutrophils/100 WBC (Bld) 67.5 % 47-70 [facility] Work Phone: Potassium [Moles/Vol] 3.9 mmol/L 3.5-5.1 [facility] Work Phone: Protein [Mass/Vol] 7.9 g/dL 6.4-8.2 [facility] Work Phone: Sodium [Moles/Vol] 136 mmol/L 136-145 [facility] Work Phone: WBC (Bld) [#/Vol] 11.4 10*3/uL 4.4-11.0 [facility] Work Phone: Blood erythrocytes count (nu mber/volume)on 2021 RBC (Bld) [#/Vol] 3.90 10*6/uL 4.2-5.4 [facility] Work Phone: Blood hemoglobin measurement (mass/volume)on 2021 Hemoglobin (Bld) [Mass/Vol] 12.0 g/dL 12.0-15.0 [facility] Work Phone: Blood lymphocytes/100 leukoc yteson 2021 Lymphocytes/100 WBC (Bld) 21.8 % 19-41 [facility] Work Phone: Blood monocytes/100 leukocyt eson 2021 Monocytes/100 WBC (Bld) 7.0 % 0-10 [facility] Work Phone: [phone] Blood platelet mean volumeon 2021 Platelet mean volume (Bld) [Entitic vol] 10.5 fL 6.2-12.0 [facility] Work Phone: [phone] Determination of erythrocyte mean corpuscular volume (MCV)on 2021 MCV (RBC) [Entitic vol] 99.7 fL 81-99 [facility] Work Phone: [phone] Hematocrit Auto (Bld) [Volum e fraction]on 2021 Hematocrit (Bld) [Volume fraction] 38.9 % 37-47 [facility] Work Phone: [phone] Laboratory - Chemistry and C hemistry - challengeon 2021 ALP [Catalytic activity/Vol] 131 U/L 45-117 [facility] Work Phone: [phone] [Catalytic activity/Vol] 18 U/L 13-56 [facility] Work Phone: [phone] CO2 [Moles/Vol] 27.0 mmol/L 21.0-32.0 [facility] Work Phone: [phone] Globulin (S) [Mass/Vol] 4.4 g/dL 2.2-4.2 [facility] Work Phone: [phone] Urea nitrogen/Creatinine [Mass ratio] 14.7 mg/mg 10-20 [facility] Work Phone: [phone] Laboratory - Hematology and Cell countson 2021 Erythrocyte distribution width (RBC) [Entitic vol] 55.5 fL 35.1-43.9 [facility] Work Phone: [phone] Erythrocyte distribution width (RBC) [Ratio] 15.4 % 11.6-14.6 [facility] Work Phone: [phone] Immature granulocytes/100 WBC (Bld) 0.400 % 0.0-0.9 [facility] Work Phone: [phone] Comment on above: IG% - Immature Granu locytes (promyelocytes, myelocytes and metamyelocytes) > 1% indicates that a LEFT SHIFT is Present. MCH (RBC) [Entitic mass] 30.8 pg 27.0-32.0 [facility] Work Phone: [phone] Nucleated RBC/100 WBC (Bld) [Ratio] 0 % 0-5 [facility] Work Phone: [phone] MCHC Auto (RBC) [Mass/Vol]on 2021 MCHC (RBC) [Mass/Vol] 30.8 g/dL 32-36 [facility] Work Phone: [phone] No Panel Informationon 11-29 Estimated GFR (MDRD) Amer 63 mL/min >60 [facility] Work Phone: Comment on above: GFR Calc Estimated GFR (MDRD) Non-Af Amer 52 mL/min >60 [facility] Work Phone: Comment on above: Non- GFR Calc Platelets bldon 2021 Platelets (Bld) [#/Vol] 293 10*3/uL 150-450 [facility] Work Phone: [phone] Serum or plasma albumin luis enrique urement (mass/volume)on 2021 Albumin [Mass/Vol] 3.5 g/dL 3.2-5.0 [facility] Work Phone: [phone] Serum or plasma albumin/glob ulin mass ratioon 2021 Albumin/Globulin [Mass ratio] 0.8 {ratio} 0.9-2.4 [facility] Work Phone: [phone] Serum or plasma calcium luis enrique urement (mass/volume)on 2021 Calcium [Mass/Vol] 9.5 mg/dL 8.5-10.1 [facility] Work Phone: [phone] Serum or plasma creatinine m easurement (mass/volume)on 2021 Creatinine [Mass/Vol] 1.09 mg/dL 0.55-1.02 [facility] Work Phone: [phone] Comment on above: The validity of the calculated GFR & GFRAA in patients over 70 years has not been determined. Clinical correlation is essential. Serum or plasma urea nitroge n measurement (mass/volume)on 2021 Urea nitrogen [Mass/Vol] 16 mg/dL 7-18 [facility] Work Phone: Thin prep Papanicolaou smear with manual screeningon 2021 Thin prep Papanicolaou smear with manual screening 10 U/L 15-37 [facility] Work Phone: Thin prep Papanicolaou smear with manual screening 7 5-15 [facility] Work Phone: Vital Signs Date Time Vital Sign Value Performing Clinician Faci lity 07-14-2025 09:48-0400 Heart rate 116 /min Dr. Marciano Anaya DO Work Phone: [facility] 07-14-2025 09:45-0400 Body temperature 98.7 [degF] Dr. Marciano Anaya DO Work Phone: [facility] 07-14-2025 09:45-0400 Diastolic blood pressure 119 mm[Hg] Dr. Marciano Anaya DO Work Phone: [facility] 07-14-2025 09:45-0400 Respiratory rate 18 /min Dr. Marciano Anaya DO Work Phone: [facility] 07-14-2025 09:45-0400 SaO2% (BldA) [Mass fraction] 94 % Dr. Marciano Anaya DO Work Phone: [facility] 07-14-2025 09:45-0400 Systolic blood pressure 149 mm[Hg] Dr. Marciano Anaya DO Work Phone: [facility] 07-14-2025 05:17-0400 Body mass index (BMI) [Ratio] 42.7 kg/m2 Dr. Marciano Anaya DO Work Phone: [facility] 07-14-2025 05:17-0400 Body weight 116.[address] Marciano Anaya DO Work Phone: [facility] 07-13-2025 14:07-0400 Body height 165.[address] Marciano Anaya DO Work Phone: [facility] 07-12-2025 22:59-0400 Body temperature 97.8 [degF] Dr. Marciano Anaya DO Work Phone: [facility] 07-12-2025 22:59-0400 Diastolic blood pressure 79 mm[Hg] Dr. Marciano Anaya DO Work Phone: [facility] 07-12-2025 22:59-0400 Heart rate 101 /min Dr. Marciano Anaya DO Work Phone: [facility] 07-12-2025 22:59-0400 Respiratory rate 22 /min Dr. Marciano Anaya DO Work Phone: [facility] 07-12-2025 22:59-0400 SaO2% (BldA) [Mass fraction] 95 % Dr. Marciano Anaya DO Work Phone: [facility] 07-12-2025 22:59-0400 Systolic blood pressure 128 mm[Hg] Dr. Marciano Anaya DO Work Phone: [facility] 07-12-2025 21:27-0400 Body mass index (BMI) [Ratio] 40.8 kg/m2 Dr. Marciano Anaya DO Work Phone: [facility] 07-12-2025 21:27-0400 Body weight 111.[address] Marciano Anaya DO Work Phone: [facility] 07-12-2025 19:12-0400 Body height 165.[address] Marciano Anaya DO Work Phone: [facility] 07-12-2025 15:15-0400 Body temperature 98.4 [degF] Dr. Marciano Anaya DO Work Phone: [facility] 07-12-2025 15:15-0400 Diastolic blood pressure 98 mm[Hg] Dr. Marciano Anaya DO Work Phone: [facility] 07-12-2025 15:15-0400 Heart rate 96 /min Dr. Marciano Anaya DO Work Phone: [facility] 07-12-2025 15:15-0400 Respiratory rate 16 /min Dr. Marciano Anaya DO Work Phone: [facility] 07-12-2025 15:15-0400 SaO2% (BldA) [Mass fraction] 94 % Dr. Marciano Anaya DO Work Phone: [facility] 07-12-2025 15:15-0400 Systolic blood pressure 117 mm[Hg] Dr. Marciano Anaya DO Work Phone: [facility] 07-12-2025 05:16-0400 Body mass index (BMI) [Ratio] 40.6 kg/m2 Dr. Marciano Anaya DO Work Phone: [facility] 07-12-2025 05:16-0400 Body weight 110.[address] Marciano Anaya DO Work Phone: [facility] 07-10-2025 10:17-0400 Body height 165.[address] Marciano Anaya DO Work Phone: [facility] 07-10-2025 03:00-0400 Body temperature 98.8 [degF] Dr. Marciano Anyaa DO Work Phone: [facility] 07-10-2025 03:00-0400 Diastolic blood pressure 75 mm[Hg] Dr. Marciano Anaya DO Work Phone: [facility] 07-10-2025 03:00-0400 Heart rate 113 /min Dr. Marciano Anaya DO Work Phone: [facility] 07-10-2025 03:00-0400 Respiratory rate 22 /min Dr. Marciano Anaya DO Work Phone: [facility] 07-10-2025 03:00-0400 SaO2% (BldA) [Mass fraction] 97 % Dr. Marciano Anaya DO Work Phone: [facility] 07-10-2025 03:00-0400 Systolic blood pressure 103 mm[Hg] Dr. Marciano Anaya DO Work Phone: [facility] 07-09-2025 22:27-0400 Body height 165.[address] Marciano Anaya DO Work Phone: [facility] 07-09-2025 22:27-0400 Body mass index (BMI) [Ratio] 42.5 kg/m2 Dr. Marciano Anaya DO Work Phone: [facility] 07-09-2025 22:27-0400 Body weight [address] Marciano Anaya DO Work Phone: [facility] 03-21-2024 22:26-0400 Body temperature 97.5 [degF] [facility] 03-21-2024 22:26-0400 Diastolic blood pressure 73 mm[Hg] [facility] 03-21-2024 22:26-0400 Heart rate 93 /min [facility] 03-21-2024 22:26-0400 Respiratory rate 20 /min [facility] 03-21-2024 22:26-0400 SaO2% (BldA) [Mass fraction] 96 % [facility] 03-21-2024 22:26-0400 Systolic blood pressure 172 mm[Hg] [facility] 03-21-2024 20:34-0400 Body height 165.1 cm [facility] 03-21-2024 20:34-0400 Body mass index (BMI) [Ratio] 44.9 kg/m2 [facility] 03-21-2024 20:34-0400 Body weight 122.5 kg [facility] 07-16-2023 14:29-0400 Body height 165.[address] Marciano Anaya Work Phone: [facility] 07-16-2023 14:29-0400 Body mass index (BMI) [Ratio] 43.4 kg/m2 Dr. Marciano Anaya Work Phone: [facility] 07-16-2023 14:29-0400 Body weight 118.[address] aMrciano Anaya Work Phone: [facility] Encounters Encounter Date Encounter Type Care Provider Facility Start: 07-13-2025 Non-patient / Non-visit Dr. Marciano Castellanos [facility] Work Phone: Start: 07-12-2025 End: 07-14-2025 ambulatory [facility] Facility:[facility] Start: 07-12-2025 End: 07-14-2025 Evaluation and management of inpatient Dr. Courtney Rader MD -Progressive Care Unit Work Phone: Start: 07-11-2025 Non-patient / Non-visit Dr. Marciano Castellanos [facility] Work Phone: Start: 07-10-2025 Non-patient / Non-visit Cuauhtemoc Mccallum DO [facility] Start: 07-10-2025 Non-patient / Non-visit Dr. Bro Johnson [facility] Work Phone: Start: 07-10-2025 ambulatory [facility] Facility: [facility] Start: 07-10-2025 End: 07-12-2025 Evaluation and management of inpatient Dr. Bro Johnson DO -Progressive Care Unit Work Phone: Start: 07-05-2025 End: 07-05-[address] Marciano Anaya DO Work Phone: -Laboratory Agustin Foster [facility] Start: 07-05-2025 End: 07-05-[address] Marciano Anaya DO -[facility] Agustin Foster [facility] Start: 07-05-2025 End: 07-05-2025 ambulatory Marciano Héctor Facility:[facility] Start: 07-01-2025 End: 07-01-[address] Marciano Anaya DO Work Phone: -Laboratory [facility] Start: 07-01-2025 End: 07-01-[address] Marciano Anaya DO -Laboratory [place] Work Phone: Start: 07-01-2025 End: 07-01-2025 ambulatory Marciano Héctor Facility:[facility] Start: 06-06-2025 End: 06-06-[address] Marciano Anaya DO Work Phone: -Laboratory [email or web address] Start: 06-06-2025 End: 06-06-[address] Amina Palomo MD -Laboratory [place] Work Phone: Start: 06-06-2025 End: 06-06-2025 ambulatory Marciano Héctor Facility:[facility] Start: 03-25-2025 End: 03-25-[address] Marciano Anaya DO Work Phone: [facility] Work Phone: Start: 03-25-2025 End: 03-25-[address] Amina Palomo MD -Radiology [place] Work Phone: Start: 03-25-2025 End: 03-25-2025 ambulatory Marciano Héctor Facility:[facility] Start: 03-18-2025 End: 03-18-[address] Marciano Anaya DO Work Phone: [facility] Work Phone: Start: 03-18-2025 End: 03-18-[address] Amina Palomo MD -Laboratory [place] Work Phone: Start: 03-18-2025 End: 03-18-2025 ambulatory Marciano Héctor Facility:[facility] Start: 02-16-2025 End: 02-16-[address] Marciano Anaya DO Work Phone: [facility] Work Phone: Start: 02-16-2025 End: 02-16-[address] Marciano Anaya DO -Radiology, [place] Work Phone: Start: 02-16-2025 End: 02-16-2025 ambulatory Marciano Anaya Facility:[facility] Start: 12-24-2024 End: 12-24-[address] [facility] Start: 12-24-2024 End: 12-24-2024 ambulatory Marciano Anaya Facility:[facility] Start: 10-25-2024 End: 10-25-[address] [facility] Start: 10-25-2024 End: 10-25-2024 ambulatory Marciano Anaya Facility:[facility] Start: 09-30-2024 End: 09-30-2024 ambulatory Marciano Anaya Facility:[facility] Start: 08-18-2024 End: 08-18-2024 ambulatory Marciano Anaya Facility:[facility] Start: 08-05-2024 End: 08-05-2024 ambulatory Marciano Héctor Facility:[facility] Start: 03-21-2024 End: 03-21-2024 Emergency department patient visit [facility]-Emergency Department Work Phone: Start: 03-19-2024 Patient encounter procedure [facility] Work Phone: Start: 03-11-2024 End: 03-11-2024 ambulatory [facility] Work Phone: Start: 03-11-2024 End: 03-11-2024 Patient encounter procedure [facility] Work Phone: Start: 01-06-2024 End: 01-06-[address] Marciano Anaya Work Phone: [facility] Work Phone: Start: 01-06-2024 End: 01-06-[address] Marciano Anaya Work Phone: [facility] Work Phone: Start: 10-14-2023 End: 10-14-[address] Marciano Anaya Work Phone: [facility] Radiology Start: 10-10-2023 End: 10-10-[address] Marciano Anaya Work Phone: [facility] Work Phone: Start: 10-10-2023 End: 10-10-[address] Marciano Anaya Work Phone: [facility] Work Phone: Start: 07-31-2023 End: 07-31-[address] Marciano Anaya Work Phone: [facility] Work Phone: Start: 07-31-2023 End: 07-31-[address] Marciano Anaya Work Phone: [facility] Work Phone: Start: 07-18-2023 End: 07-18-[address] Marciano Anaya Work Phone: [facility] Work Phone: Start: 07-18-2023 End: 07-18-[address] Marciano Anaya Work Phone: [facility] Work Phone: Start: 07-16-2023 End: 07-16-[address] Marciano Anaya Work Phone: [facility] Work Phone: Start: 04-21-2023 End: 04-21-2023 ambulatory [facility] Work Phone: Start: 04-21-2023 End: 04-21-2023 Patient encounter procedure [facility] Start: 01-20-2023 End: 01-20-2023 ambulatory [facility] Work Phone: Start: 01-20-2023 End: 01-20-2023 Patient encounter procedure [facility] Start: 10-30-2022 End: 10-30-2022 ambulatory [facility] Work Phone: Start: 10-30-2022 End: 10-30-2022 Patient encounter procedure [facility] Start: 08-17-2022 End: 08-17-2022 Patient encounter procedure [facility] Start: 05-24-2022 End: 05-24-2022 Patient encounter procedure [facility] Start: 02-27-2022 End: 02-27-2022 Patient encounter procedure [facility] Start: 2021 End: 2021 Patient encounter procedure [facility] Procedures Date Procedure Procedure Detail Performing Clinician Start: 07-14-[address] Marciano Anaya DO Work Phone: Start: 07-13-2025 Urnls dip stick/tablet reagent auto microscopy Dr. Marciano Anaya DO Work Phone: Start: 07-12-2025 Urnls dip stick/tablet reagent auto microscopy Dr. Marciano Anaya DO Work Phone: Start: 07-12-[address] Marciano Anaya DO Work Phone: Start: 07-12-[address] Marciano Anaya DO Work Phone: Start: 07-11-[address] Marciano box DO Work Phone: Start: 07-11-[address] Marciano Anaya DO Work Phone: Start: 07-10-2025 Serum inorganic phosphate measurement Dr. Marciano Anaya DO Work Phone: Start: 07-10-2025 Total iron binding capacity measurement Dr. Marciano Anaya DO Work Phone: Start: 07-10-2025 Urnls dip stick/tablet reagent auto microscopy Dr. Marciano Anaya DO Work Phone: Start: 07-09-2025 X-ray of chest, PA and lateral views Dr. Marciano Anaya DO Work Phone: Start: 07-09-2025 Computed tomography of abdomen and pelvis with intravenous contrast Dr. Marciano Anaya DO Work Phone: Start: 07-09-[address] Marciano Anaya DO Work Phone: Start: 07-09-2025 Measurement of occult blood in stool specimen using immunoassay Dr. Marciano Anaya DO Work Phone: Start: 03-25-2025 Plain x-ray of pelvis and lower extremity Dr. Marciano Anaya DO Work Phone: Start: 02-16-2025 X-ray of chest, PA and lateral views Dr. Marciano Anaya DO Work Phone: Start: 12-24-2024 Measurement of renal function Dr. Marciano christianson DO Work Phone: Comment on above: GFR Calc Start: 03-21-2024 CT of head without contrast Start: 10-14-2023 X-ray of both feet Dr. Marciano Anaya Work Phone: Start: 07-31-2023 US scan of thyroid Dr. Marciano Anaya Work Phone: Start: 07-16-2023 Plain x-ray of elbow Dr. Marciano Anaya Work Phone: Plan of Treatment Date Care Activity Detail Author Start: 07-14-2025 Patient discharge [facility] Start: 07-13-2025 Following clinical pathway protocol [facility] Start: 07-12-2025 Application of intermittent pneumatic compression device [facility] Start: 07-12-2025 Following clinical pathway protocol [facility] Start: 07-12-2025 Assessment of risk of venous thromboembolism [facility] Start: 07-12-2025 Fall prevention [facility] Start: 07-12-2025 Incentive spirometry [facility] Start: 07-12-2025 Insertion of catheter into peripheral vein [facility] Start: 07-12-2025 Introduction of urinary catheter [facility] Start: 07-12-2025 Measuring intake and output [facility] Start: 07-12-2025 Oxygen therapy [facility] Start: 07-12-2025 Providing care according to standard [facility] Start: 07-12-2025 Provision of activity privileges [facility] Start: 07-12-2025 Referral to occupational therapist [facility] Start: 07-12-2025 Referral to service [facility] Start: 07-12-2025 [facility] Start: 07-12-2025 Verification routine [facility] Start: 07-12-2025 Admission procedure [facility] Start: 07-12-2025 Hospital admission, emergency, from emergency room, medical nature [facility] Start: 07-12-2025 [facility] Start: 07-12-2025 Patient discharge [facility] Start: 07-12-2025 Patient referral to dietitian [facility] Start: 07-10-2025 Administration of blood product [facility] Start: 07-10-2025 Transfusion of red blood cells [facility] Start: 07-10-2025 Application of intermittent pneumatic compression device [facility] Start: 07-10-2025 Aspiration precautions [facility] Start: 07-10-2025 Assessment of risk of venous thromboembolism [facility] Start: 07-10-2025 Catheterization of vein [facility] Start: 07-10-2025 Documentation procedure [facility] Start: 07-10-2025 Insertion of catheter into peripheral vein [facility] Start: 07-10-2025 Measuring intake and output [facility] Start: 07-10-2025 Providing care according to standard [facility] Start: 07-10-2025 Provision of activity privileges [facility] Start: 07-10-2025 Referral to gastroenterology service [facility] Start: 07-10-2025 Referral to occupational therapist [facility] Start: 07-10-2025 Referral to service [facility] Start: 07-10-2025 [facility] Start: 07-10-2025 End: 07-10-2025 Following clinical pathway protocol [facility] Start: 07-10-2025 Measurement of occult blood in stool specimen using immunoassay [facility] Start: 07-10-2025 Hospital admission, emergency, from emergency room, medical nature [facility] Start: 07-10-2025 Verification routine [facility] Start: 07-10-2025 Admission procedure [facility] Start: 07-10-2025 Patient referral to dietitian [facility] Start: 07-09-2025 [facility] Start: 03-21-2024 [facility] Folate [Moles/volume ] in Serum or Plasma [facility] Microscopic urinalysis [facility] Organism count, micr oscopic method [facility] Patient Education ED Abrasion ED Head Injury (Adult) [facility] Work Phone: Patient referral [facility] Work Phone: Urine microscopy: ep ithelial cells [facility] Urine microscopy: red cells [facility] White blood cell count [facility] Immunizations Immunization Date Immunization Notes Care Provider Fa renato 03-21-2024 tetanus toxoid, redu connor diphtheria toxoid, and acellular pertussis vaccine, adsorbed [facility] Payers Date Payer Category Payer Unknown [id number] 2024 Self-pay [id number] 2024 Private Health Insurance [id number] 2024 Self-pay [id number] 2012 Medicare [id number] Unknown [id number] 2.16.8 [id number] Unknown [id number] 2.16.8 [id number] Unknown [id number] 2.16.8 [id number] Unknown [id number] 2.16.8 [id number] Unknown [id number] 2.16.8 [id number] Unknown [id number] 2.16.8 [id number] Unknown [id number] 2.16.8 [id number] Unknown [id number] 2.16.8 [id number] Unknown [id number] 2.16.8 [id number] Unknown [id number] 2.16.8 [id number] Unknown [id number] 2.16.8 [id number] Unknown [id number] 2.16.8 [id number] Unknown [id number] 2.16.8 [id number] Unknown [id number] 2.16.8 [id number] Unknown [id number] 2.16.8 [id number] Unknown [id number] 2.16.8 [id number] Unknown [id number] 2.16.8 [id number] Unknown [id number] 2.16.8 [id number] Unknown [id number] 2.16.8 [id number] Unknown [id number] 2.16.8 [id number] Social History Date Type Detail Facility Start: 08-29-2021 End: 03-21-2024 Tobacco smoking status NHIS Unknown if ever smoked [facility] Start: 12-07-2020 Sober [facility] Start: 12-07-2020 None [facility] Start: 12-07-2020 With Family [facility] Start: 12-07-2020 Non-smoker [facility] Start: 1945 Sex Assigned At Female [facility] Start: 03-21-2024 End: 07-12-2025 Tobacco smoking status NHIS Ex-smoker (finding) [facility] Start: 02-18-2025 Sex Female (finding) [facility] Medical Equipment Procedure Code Equipment Code Equipment Original Text Equipment Identifier Dates EGD, with monitored anesthesia care Gastrointestinal endoscopic clip, long-term, non-bioabsorbable [id number] FDA Start: 07-11-2025 Goals Date Patient Goal Desired Activity /State Functional Status Date Assessment Result Facility 07-14-2025 Functional status Ambulates [facility] Work Phone: 07-12-2025 Functional status Stand and pivot [facility] Work Phone: Mental Status Date Assessment Result Facility 07-14-2025 Cognitive function Voice/Name [facility] [place] Work Phone: 07-12-2025 Cognitive function Level Of Cons ciousness Awake;Alert;Appropriate;Follow s Commands [facility] Work Phone: 07-12-2025 Cognitive function Voice/Name [facility] [place] Work Phone: Clinical Notes 03-21-2024 to 07-14-2025 Note Date & Type Note Facility 07-14-2025 Discharge summary [facility] 07-14-2025 Note [facility] Medical Records Department [address] [place] [address] Discharge Summary 07/14/25 1043 MR#: [id number] Acct: [id number] Name: BETSY LEE Rep #: [id number] : 1945 79 From: Marciano Castellanos DO PCP: Dr. Marciano Anaya DO Status:DIS IN Location: [facility] [id number] Providers Date of Admission: 07/12/25 Date of Discharge: 07/14/25 Primary Care Physician: Dr. Marciano Anaya DO Reason For Visit: LH/DIZZINESS, DIARRHEA, TRUMAN Diagnosis Discharge Diagnosis (1) History of upper gastrointestinal bleeding: Status: Acute Code(s): Z87.19 - Personal history of other diseases of the digestive system Plan 1. Acute kidney injury-IV fluids will continue, BMP will be obtained tomorrow #2 generalized weakness-PT and OT will continue to see the patient #3 chronic H-cbj-dmhwadc is off anticoagulation due to recent upper GI bleed #4 recent acute blood loss anemia secondary to upper GI bleed from gastric ulcers-hemoglobin appears to be stable at this time Total clinical time spent by myself addressing the patient's medical issues, reviewing all of her data, and collaborating with patient's care team: 35 minutes Medications at Discharge Home Medications albuterol sulfate 90 mcg/actuation aerosol inhaler (ProAir HFA) 1 - 2 puff inhalation Q6H PRN PRN Shortness Of Breath 03/15/15 methotrexate sodium 2.5 mg tablet 20 mg PO MO Rheumatoid arthritis 03/15/15 folic acid 1 mg tablet 1 mg PO DAILY@0800 supplement #0 TABLETS 03/29/15 losartan 50 mg tablet 50 mg PO DAILY #30 TABLETS 03/29/15 prednisone 10 mg tablet 10 mg PO PRN PRN arthritis flare up 07/07/19 venlafaxine 150 mg capsule,extended release 24 hr 150 mg PO DAILY depression/anxiety 07/07/19 vitamins A,C,C-fwik-vaolpu 2,148 mcg-113 mg-45 mg-17.4 mg tablet 1 tab PO DAILY EYE HEALTH 07/07/19 magnesium oxide 400 mg PO DAILY SUPPLEMENT 09/19/20 levothyroxine 100 mcg tablet 100 mcg PO DAILY throid 07/16/23 meclizine 12.5 mg tablet 12.5 mg PO DAILY 07/16/23 oxycodone-acetaminophen 10 mg-325 mg tablet 1 tab PO Q8H PRN pain 07/16/23 apixaban 5 mg tablet (Eliquis) 5 mg PO BID blood thinner 07/09/25 Held on 07/14/25. Instructions: Resume on 07/19/25. atorvastatin 40 mg tablet 40 mg PO DAILY cholesterol 07/09/25 amlodipine 5 mg tablet 5 mg PO DAILY blood pressure 07/12/25 budesonide-formoterol HFA 80 mcg-4.5 mcg/actuation aerosol inhaler (Symbicort) 1 puff inhalation Q12H 07/12/25 nystatin 100,000 unit/gram topical powder 1 applic topical BID #15 grams 07/12/25 pantoprazole 40 mg tablet,delayed release (Protonix) 40 mg PO BID GI #60 tabs 07/12/25 metoprolol succinate 50 mg tablet,extended release 24 hr 100 mg (2 x 50 mg) PO DAILY #60 tabs 07/14/25 Hospital Course Operations None Procedures None Summary of Care Provided Minutes Spent on Discharge: 30 Hospital Course: 79-year-old white female was seen in the emergency room at [facility] several hours after being discharged from the hospital, she came back for evaluation of lightheadedness and generalized weakness after she had a bowel movement at home. Labs obtained in the emergency room, showed elevated creatinine. Patient was admitted to PCU for acute kidney injury and seen by PT and OT due to her complaints of generalized weakness. Patient did well with PT and OT, with IV fluid administration her renal function normalized. On 07/14/2025, patient was seen and examined: On examination she appeared in good health and spirits, she does not appear to be in any distress. Vital signs as documented. Skin warm and dry and without overt rashes. Neck without JVD, thyroid appears normal, trachea is midline, neck is supple. Lungs clear, normal air movement was noted. Heart exam notable for irregular rhythm, normal sounds and absence of murmurs, rubs or gallops. Abdomen unremarkable and without evidence of organomegaly, masses, or abdominal aortic enlargement, bowel sounds are present in all 4 quadrants, no abdominal tenderness was noted. Extremities nonedematous, no cyanosis was noted, no clubbing was noted. Neuro: Cranial nerves II through XII are grossly intact, no focal motor deficits were noted, sensation to light touch and pinprick is intact, motor exam 5/5 throughout. Psych: Patient is alert and oriented x3, she does not appear anxious or depressed, she does not appear agitated. Patient was discharged home in stable condition on 07/14/2025 Weight / BMI Weight Weight: 116.6 kg Body Mass Index (BMI) 42.7 ABG / Lab / Microbiology Data 07/13/25 05:04 07/14/25 04:56 Laboratory: Laboratory Results - last 24 hr 07/13/25 05:46: Urine Color Yellow, Urine Clarity Clear, Urine pH 5.0, Ur Specific [place] 1.020, U rine Protein 15 H, Urine Glucose (UA) Normal, Urine Ketones Negative, Urine Occult Blood Negative, Urine Nitrite Negative, Urine Bilirubin Nega (more content not included)... [facility] 07-13-2025 Progress note Note Date/Time July 13, 2025 6:02pm [facility] Medical Records Department [address] [place] [address] Progress Note - Hospitalist 07/13/25 175 MR#: [id number] Acct: [id number] Name: BETSY LEE Rep #:[id number] : 1945 79 From: Marciano Castellanos DO PCP: Dr. Marciano Anaya, DO Status:ADM IN Location: [place] [address] Reason for Visit Chief Complaint: Severe Diarrhea, debility, weakness. Subjective Subjective Patient was seen and examined today, she was readmitted yesterday shortly after she was discharged due to lightheadedness and acute kidney injury. Creatinine today is improved. Objective Data Objective Data Vital Signs: Vital Signs Temp Pulse Resp BP Pulse Ox O2 Del Method 98.6 F 92 18 92/59 L 95 Room Air 07/13/25 15:08 07/13/25 15:08 07/13/25 15:08 07/13/25 15:08 07/13/25 15:08 07/13/25 15:08 Oxygen Delivery Method Room Air Weight: 108.9 kg Body Mass Index (BMI) 39.9 Intake & Output: Intake and Output for Last 24 Hours 07/11/25 07/12/25 07/13/25 23:59 23:59 23:59 Intake Total 1250 / 1250 Output Total 0 / 0 300 / 300 Balance 0 / 0 950 / 950 Lab / Micro Data 07/13/25 05:04 09/03/25 05:04 Labs: Laboratory Results - last 24 hr 07/12/25 21:38: WBC 18.3 H, RBC 3.11 L, Hgb 9.8 L, Hct 30.0 L, MCV 96.5, MCH 31.5, MCHC 32.7, RDW Std Deviation 60.5 H, RDW Coeff of Espinoza 18.2 H, Plt Count 252, MPV 11.1, Immature Gran % (Auto) 1.500 H, Neut % (Auto) 77.6 H, Lymph % (Auto) 12.8 L, Hinds % (Auto) 7.1, Eos % (Auto) 0.7, Baso % (Auto) 0.3, Absolute Neuts (auto) 14.2 H, Absolute Lymphs (auto) 2.34, Nucleated RBC % 0.3, Sodium 137, Potassium 4.1, Chloride 101, Carbon Dioxide 23.4, Anion Gap 12, BUN 29 H, Creatinine 1.71 H, Estim Creat Clear Calc 33.13 L, Est GFR (MDRD) Non-Af 30 L, BUN/Creatinine Ratio 16.9, Glucose 127 H, Calcium 9.2, Magnesium 2.1, Total Bilirubin 0.37, AST 20, ALT 13, Alkaline Phosphatase 101, Total Protein 6.5, Albumin 3.6, Globulin 2.8, Albumin/Globulin Ratio 1.3 07/12/25 22:05: Urine Color Yellow, Urine Clarity Sl. Cloudy, Urine pH 5.0, Ur Specific [place] 1.020, Urine Protein 100 H, Urine Glucose (UA) Normal, Urine Ketones 5 H, Urine Occult Blood 250 H, Urine Nitrite Negative, Urine Bilirubin 6H, Urine Urobilinogen 1 H, Ur Leukocyte Esterase 500 H, Urine RBC 0 SEEN, Urine WBC 10-25 SEEN, Ur Squamous Epith Cells 10-25 SEEN, Ur Transition Epith Cell 0-5SEEN, Urine Bacteria 2+, Hyaline Casts 0-5 SEEN, Fine Granular Casts 0-5 SEEN, Urine Mucus 0 SEEN 07/13/25 05:04: WBC 14.5 H, RBC 2.85 L, Hgb 8.8 L, Hct 27.4 L, MCV 96.1, MCH 30.9, MCHC 32.1, RDW Std Deviation 60.1 H, RDW Coeff of Espinoza 17.7 H, Plt Count 246, MPV 11.5, Immature Gran % (Auto) 1.000 H, Neut % (Auto) 68.7, Lymph % (Auto) 19.0, Hinds % (Auto) 8.7, Eos % (Auto) 2.2, Baso % (Auto) 0.4, Absolute Neuts (auto) 9.9 H, Absolute Lymphs (auto) 2.75, Nucleated RBC % 0, Sodium 140, Potassium 3.6, Chloride 104, Carbon Dioxide 23.5, Anion Gap 12, BUN 27 H, Creatinine 1.43 H, Estim Creat Clear Calc 39.16 L, Est GFR (MDRD) Non-Af 37 L, BUN/Creatinine Ratio 18.7, Glucose 94, Calcium 8.6, Total Bilirubin 0.41, AST 15, ALT 9, Alkaline Phosphatase 87, Total Protein 5.6 L, Albumin 3.2 L, Globulin2.5, Albumin/Globulin Ratio 1.3 Rhythm Strip Rhythm Strip: A-fib Rate: 109 Ectopy: None Physical Exam Narrative alert, oriented x3 and no apparent distress Constitutional Narrative: Patient has class III obesity General Appearance: cooperative, well kempt and well developed Orientation / Consciousness: awake, oriented to person, oriented to place and oriented to time HEENT normocephalic, head/scalp atraumatic and moist oral mucous membranes Eyes PERRL, EOMs intact bilaterally and conjunctivae normal Neck supple, no JVD, thyroid normal and no carotid bruits General: trachea midline Resp normal respiratory effort, no retractions, no use of accessory muscles and clearto auscultation bilaterally Auscultation: Negative for rales, rhonchi or wheezes Cardio S1 normal heart sound, S2 normal heart sound, no murmurs, no rub and no gallops Cardio Narrative: Heart rate and rhythm is irregular GI normal to inspection, nondistended, normoactive bowel sounds, soft to palpation,non-tender and non-distended Extremity no clubbing, cyanosis or edema Skin no rashes or lesions noted General Skin Exam: no breakdown Neuro oriented x3, CN's II-XII intact bilaterally, no focal motor deficits and no sensory deficits noted Sensorium / Orientation: awake and alert Speech: speech normal Psych affect normal Assessment & Plan Assessment/Plan (1) History of upper gastrointestinal bleeding: PLAN: Plan 1. Acute kidney injury-IV fluids will continue, BMP will be obtained tomorrow #2 generalized weakness-PT and OT will continue to see the patient #3 chronic T-fxg-elwdapa is off anticoagulation due to recent upper GI bleed #4 recent acute blood loss anemia secondary to upper GI bleed from gastric ulcers-hemoglobin appears to be stable at this time Total clinical time spent by myself addressing the patient's medical issues, reviewing all of her data, and collaborating with patient's care team: 35 minutes Charges/Coding Visit Charges Inpatient E&M: 32017 Subs Hosp L2 07/13/25 1802 <Electronically signed by Marciano Castellanos DO> Cosigner Signature (if applicable): CC: ~ Signed [facility] Work Phone: 1(420) 839-338209-03-2025 Progress note [facility] Medical Records Department [address] [place] [address] Progress Note - Hospitalist 07/13/25 175 MR#: [id number] Acct: [id number] Name: BETSY LEE Rep #:[id number] : 1945 79 From: Marciano Castellanos DO PCP: Dr. Marciano Anaya, Status:ADM IN Location: [place] [address] Reason for Visit Chief Complaint: Severe Diarrhea, debility, weakness. Subjective Subjective Patient was seen and examined today, she was readmitted yesterday shortly after she was discharged due to lightheadedness and acute kidney injury. Creatinine today is improved. Objective Data Objective Data Vital Signs: Vital Signs Temp Pulse Resp BP Pulse Ox O2 Del Method 98.6 F 92 18 92/59 L 95 Room Air 07/13/25 15:08 07/13/25 15:08 07/13/25 15:08 07/13/25 15:08 07/13/25 15:08 07/13/25 15:08 Oxygen Delivery Method Room Air Weight: 108.9 kg Body Mass Index (BMI) 39.9 Intake & Output: Intake and Output for Last 24 Hours 07/11/25 07/12/25 07/13/25 23:59 23:59 23:59 Intake Total 1250 / 1250 Output Total 0 / 0 300 / 300 Balance 0 / 0 950 / 950 Lab / Micro Data 07/13/25 05:04 07/13/25 05:04 Labs: Laboratory Results - last 24 hr 07/12/25 21:38: WBC 18.3 H, RBC 3.11 L, Hgb 9.8 L, Hct 30.0 L, MCV 96.5, MCH 31.5, MCHC 32.7, RDW Std Deviation 60.5 H, RDW Coeff of Espinoza 18.2 H, Plt Count 252, MPV 11.1, Immature Gran % (Auto) 1.500 H, Neut % (Auto) 77.6 H, Lymph % (Auto) 12.8 L, Hinds % (Auto) 7.1, Eos % (Auto) 0.7, Baso % (Auto) 0.3, Absolute Neuts (auto) 14.2 H, Absolute Lymphs (auto) 2.34, Nucleated RBC % 0.3, Sodium 137, Potassium 4.1, Chloride 101, Carbon Dioxide 23.4, Anion Gap 12, BUN 29 H, Creatinine 1.71 H, Estim CreatClear Calc 33.13 L, Est GFR (MDRD) Non-Af 30 L, BUN/Creatinine Ratio 16.9, Glucose 127 H, Calcium 9.2, Magnesium 2.1, Total Bilirubin 0.37, AST 20, ALT 13, Alkaline Phosphatase 101, Total Protein 6.5, Albumin 3.6, Globulin 2.8, Albumin/Globulin Ratio 1.3 07/12/25 22:05: Urine Color Yellow, Urine Clarity Sl. Cloudy, Urine pH 5.0, Ur Specific [place] 1.020, Urine Protein 100 H, Urine Glucose (UA) Normal, Urine Ketones 5 H, Urine Occult Blood 250 H, Urine Nitrite Negative, Urine Bilirubin 6H, Urine Urobilinogen 1 H, Ur Leukocyte Esterase 500 H, Urine RBC 0 SEEN, Urine WBC 10-25 SEEN, Ur Squamous Epith Cells 10-25 SEEN, Ur Transition Epith Cell 0-5SEEN, Urine Bacteria 2+, Hyaline Casts 0-5 SEEN, Fine Granular Casts 0-5 SEEN, Urine Mucus 0 SEEN 07/13/25 05:04: WBC 14.5 H, RBC 2.85 L, Hgb 8.8 L, Hct 27.4 L, MCV 96.1, MCH 30.9, MCHC 32.1, RDW Std Deviation 60.1 H, RDW Coeff of Espinoza 17.7 H, Plt Count 246, MPV 11.5, Immature Gran % (Auto) 1.000 H, Neut % (Auto) 68.7, Lymph % (Auto) 19.0, Hinds % (Auto) 8.7, Eos % (Auto) 2.2, Baso % (Auto) 0.4, Absolute Neuts (auto) 9.9 H, Absolute Lymphs (auto) 2.75, Nucleated RBC % 0, Sodium 140, Potassium 3.6, Chloride 104, Carbon Dioxide 23.5, Anion Gap 12, BUN 27 H, Creatinine 1.43 H, Estim Creat Clear Calc 39.16 L, Est GFR (MDRD) Non-Af 37 L, BUN/Creatinine Ratio 18.7, Glucose 94, Calcium 8.6, Total Bilirubin 0.41, AST 15, ALT 9, Alkaline Phosphatase 87, Total Protein 5.6 L, Albumin 3.2 L, Globulin2.5, Albumin/Globulin Ratio 1.3 Rhythm Strip Rhythm Strip: A-fib Rate: 109 Ectopy: None Physical Exam Narrative alert, oriented x3 and no apparent distress Constitutional Narrative: Patient has class III obesity General Appearance: cooperative, well kempt and well developed Orientation / Consciousness: awake, oriented to person, oriented to place and oriented to time HEENT normocephalic, head/scalp atraumatic and moist oral mucous membranes Eyes PERRL, EOMs intact bilaterally and conjunctivae normal Neck supple, no JVD, thyroid normal and no carotid bruits General: trachea midline Resp normal respiratory effort, no retractions, no use of accessory muscles and clearto auscultation bilaterally Auscultation: Negative for rales, rhonchi or wheezes Cardio S1 normal heart sound, S2 normal heart sound, no murmurs, no rub and no gallops Cardio Narrative: Heart rate and rhythm is irregular GI normal to inspection, nondistended, normoactive bowel sounds, soft to palpation,non-tender and non-distended Extremity no clubbing, cyanosis or edema Skin no rashes or lesions noted General Skin Exam: no breakdown Neuro oriented x3, CN's II-XII intact bilaterally, no focal motor deficits and no sensory deficits noted Sensorium / Orientation: awake and alert Speech: speech normal Psych affect normal Assessment & Plan Assessment/Plan (1) History of upper gastrointestinal bleeding: PLAN: Plan 1. Acute kidney injury-IV fluids will continue, BMP will be obtained tomorrow #2 generalized weakness-PT and OT will continue to see the patient #3 chronic Z-ttl-vzyfjhy is off anticoagulation due to recent upper GI bleed #4 recent acute blood loss anemia secondary to upper GI bleed from gastric ulcers-hemoglobin appears to be stable at this time Total clinical time spent by myself addressing the patient's medical issues, reviewing all of her data, and collaborating with patient's care team: 35 minutes Charges/Coding Visit Charges Inpatient E&M: 98520 Subs Hosp L2 07/13/25 180 Cosigner Signature (if applicable): CC: ~ Signed [facility]09-03-2025 Discharge summary Author Tiffanie Hutchinson [facility] Note Date/Time July 13, 2025 12:35am [facility] Medical Records Department [address] [place] [address] Emergency Department Summary 07/13/25 MR#: [id number] Acct: [id number] Name: BETSY LEE Rep #:[id number] : 1945 79 From: Tiffanie Bowman PCP: Dr. Marciano Anaya, DO Status:ADM IN Location: [place] [address] HPI HPI - GI History of Present Illness Chief Complaint: GI Bleed Informant: patient and family Diarrhea/Melena/Hematochezia GI Symptom: Positive for Diarrhea Onset: Today Narrative Narrative: Patient is a 79-year-old female with history of atrial fibrillation and a recentadmission for upper GI bleeding. She was actually just discharged from the hospital today. She states before she left they gave her solid food for the first time (previously been on clear liquid diet). Currently tenderness after getting home she had robust episode of diarrhea. She states she could make it to the bathroom initially. She states she had a very large amount of stool comeout. There was what appeared to be some dark blood mixed with the stool but sheis not entirely certain. She states she then started feel very weak and dizzy. She is then brought back to the emergency room. She denies dizziness abdominal pain. She notes she did feel she was having a hard time moving around. She nottake any of her evening medicines and states she had been at time to go over herdischarge paperwork before returning to the emergency room. She has had her anticoagulation on hold because of her recent GI bleed. Denies any associated fevers, chest pain, nausea or vomiting peer [facility] Medical History Fatigue SCHULTZ (dyspnea on exertion) Leukocytosis Morbid obesity with BMI of 40.0-44.9, adult Acute exacerbation of chronic heart failure Atrial fibrillation with RVR Adverse drug reaction Upper GI bleed Melanotic stools ABLA (acute blood loss anemia) Atrial fibrillation Squamous cell skin cancer Skin lesion of hand Acute kidney injury Acute respiratory failure with hypoxia Lactic acidosis Vision disturbance Chronic pain syndrome Acute blood loss anemia Anxiety and depression Asthma HLD (hyperlipidemia) Morbid obesity GI bleed Hyperkalemia Hypertension History of rheumatoid arthritis Home Medications ?Medication ?Instructions ?Recorded ?Last Taken ?Type albuterol sulfate 90 mcg/actuation 1 - 2 puff inhalati on Q6H PRN PRN 03/15/15 10/09/16 History aerosol inhaler (ProAir HFA) Shortness Of Breath methotrexate sodium 2.5 mg tablet 20 mg PO MO Rheumato id arthritis 03/15/15 09/18/20 History folic acid 1 mg tablet 1 mg PO DAILY@0800 #0 TABLET S 03/29/15 09/19/20 11:00 Rx losartan 50 mg tablet 50 mg PO DAILY #30 TABLETS 0 03/29/15 09/19/20 11:00 Rx prednisone 10 mg tablet 10 mg PO PRN PRN arthritis f lare up 07/07/19 3 Days Ago History ~09/16/20 venlafaxine 150 mg 150 mg PO DAILY depression/a nxiety 07/07/19 09/19/20 11:00 History capsule,extended release 24 hr vitamins A,C,V-vczc-kwaref 2,148 1 tab PO DAILY EYE HE ALTH 07/07/19 09/19/20 11:00 History mcg-113 mg-45 mg-17.4 mg tablet magnesium oxide 400 mg PO DAILY SUPPLEMENT 1 11/19/19 09/19/20 11:00 History levothyroxine 100 mcg tablet 100 mcg PO DAILY 07/16/23 Unknown History meclizine 12.5 mg tablet 12.5 mg PO DAILY 07/16/23 Un known History oxycodone-acetaminophen 10 mg-325 1 tab PO Q8H PRN heidi n 07/16/23 Unknown History mg tablet apixaban 5 mg tablet (Eliquis) 5 mg PO BID blood thinn er 07/09/25 Unknown History Held on 07/12/25. Instructions: Resume on 07/19/25. atorvastatin 40 mg tablet 40 mg PO DAILY cholesterol 0 07/09/25 Unknown History furosemide 40 mg tablet 40 mg PO DAILY diuretic 06/12 Unknown History metoprolol succinate 50 mg 50 mg PO DAILY blood pressu re 07/09/25 Unknown History tablet,extended release 24 hr amlodipine 5 mg tablet 5 mg PO DAILY 07/12/25 Unkno wn History budesonide-formoterol HFA 80 1 puff inhalation Q12H Unknown History mcg-4.5 mcg/actuation aerosol inhaler (Symbicort) nystatin 100,000 unit/gram topical 1 applic topical BI D #15 grams 07/12/25 Unknown Rx powder pantoprazole 40 mg tablet,delayed 40 mg PO BID #60 tab s 07/12/25 Unknown Rx release (Protonix) Allergy/AdvReac Type Severity Reaction Status Date / Time adhesive Allergy Other Verified 07/12/25 19:12 amoxicillin trihydrate (From Allergy Unknown Verified 07/12/25 19:12 Augmentin) latex Allergy Unknown Verified 07/12/25 19:12 Penicillins Allergy Unknown Verified 07/12/25 19:12 potassium clavulanate (From Allergy Unknown Verified 07/12/25 19:12 Augmentin) tetracycline Allergy Unknown Verified 07/12/25 19:12 Family History Sister Hypertension Brother Heart disease Mother Diabetes Heart disease Hypertension CVA (cerebral vascular accident) Skin cancer Father Prostate cancer Surgical History History of hand surgery History of reverse total replacement of left shoulder joint History of tonsillectomy History of appendectomy History of tubal ligation History of knee replacement History of hip replacement History of back surgery Status post reverse total replacement of right shoulder Social History household members: none Smoking Status: Former smoker alcohol intake: former substance use type: does not use ROS ROS ED Constitutional Constitutional ED: Reports other Details: Generalized weakness, lightheaded ; Denies chills or fever(s) Cardiovascular Cardiovascular: Denies chest pain or palpitations Respiratory/Chest Respiratory/Chest: Denies cough or dyspnea Gastrointestinal Gastrointestinal: Reports diarrhea and melena; Denies abdominal pain, nausea or vomiting Genitourinary Genitourinary ED: Denies dysuria Musculoskeletal Musculoskeletal: Denies arthralgias or myalgias Integumentary Denies rash Neurologic Neurologic: Reports weakness Hematologic/Lymphatic Hematologic/Lymphatic: Reports easy bleeding and easy bruising EXAM Physical Exam Const Vital Signs: 07/12/25 19:12 07/12/25 21:12 07/12/25 21:35 Temperature 97.8 F Temperature Source Temporal Pulse Rate 127 H 114 H Respiratory Rate 20 H 18 Respiratory Effort Normal Non-Labored Respiratory Pattern Normal Blood Pressure 102/58 L 108/55 L Blood Pressure Mean 72 72 Pulse Ox 93 96 Oxygen Delivery Method Room Air Room Air Positive well nourished, well developed and obese General Appearance ED: well developed and NAD; Negative for pallor Nutritional Appearance: obese HEENT Reports dry mucous membranes normocephalic Mouth ED: Yes dry mucous membranes Mouth: dry mucous membranes Eyes PERRL and EOMs intact bilaterally Neck supple Resp normal respiratory effort and clear to auscultation bilaterally Cardio no murmurs Rate: tachycardic Rhythm: abnormal rhythm irregularly irregular GI non-tender and non-distended GI Narrative: Chaperoned rectal exam performed. Patient has darker brown stool with some subtle red discoloration to it Neuro moves all extremities Sensorium / Orientation: alert, oriented to person, oriented to place and oriented to time Motor Exam: general weakness Psych mental status grossly normal and thought process normal Skin no wounds General Skin Exam: Negative for jaundice or pallor MDM MDM MDM Narrative Medical decision making narrative: Patient evaluated for episode of diarrhea with associated generalized weakness. She was just discharged from the hospital today after admission for upper GI bleeding. Differential includes diverticulitis, further GI bleeding, urinary tract infection, functional diarrhea. Lower suspicion for ischemic colitis as patientis not having associate abdominal pain. Also consider C. difficile however she has only had 1 episode of diarrhea. Patient is tachycardic upon arrival however she got her evening medications. Is given IV fluids in the emergency room. CBC does show leukocytosis of 18.3 with a left shift. Question infection versusreactive with her diarrhea. She does have an acute kidney injury with a creatinine of 1.71 (was 1.00 yesterday). No significant electrolyte derangement. Urinalysis does show 2+ bacteria but is contaminated. Will send for culture but will hold off on treatment at this time. Hemoglobin is stable still. Low suspicion for acute bleeding. Patient is given 5 mg IV metoprolol as she is in A-fib with RVR. She is asymptomatic from that standpoint. She does have a history of this. Will discuss with hospitalist for admission. Patient and family agreeable. Discharge summary from earlier today is reviewed?patient had acute upper GI bleed secondary gastric ulcers exacerbated by Eliquis and aspirin. Is off Eliquis and aspirin for now. Is on PPI therapy. Hemoglobin stable at time of discharge. Lab Data Attestation: I reviewed the patient's lab results. Labs: Laboratory Results - last 24 hr 07/12/25 07/12/25 21:38 22:05 WBC 18.3 H RBC 3.11 L Hgb 9.8 L Hct 30.0 L MCV 96.5 MCH 31.5 MCHC 32.7 RDW Std Deviation 60.5 H RDW Coeff of Espinoza 18.2 H Plt Count 252 MPV 11.1 Immature Gran % (Auto) 1.500 H Neut % (Auto) 77.6 H Lymph % (Auto) 12.8 L Hinds % (Auto) 7.1 Eos % (Auto) 0.7 Baso % (Auto) 0.3 Absolute Neuts (auto) 14.2 H Absolute Lymphs (auto) 2.34 Nucleated RBC % 0.3 Sodium 137 Potassium 4.1 Chloride 101 Carbon Dioxide 23.4 Anion Gap 12 BUN 29 H Creatinine 1.71 H Estim Creat Clear Calc 33.13 L Est GFR (MDRD) Non-Af 30 L BUN/Creatinine Ratio 16.9 Glucose 127 H Calcium 9.2 Magnesium 2.1 Total Bilirubin 0.37 AST 20 ALT 13 Alkaline Phosphatase 101 Total Protein 6.5 Albumin 3.6 Globulin 2.8 Albumin/Globulin Ratio 1.3 Urine Color Yellow Urine Clarity Sl. Cloudy Urine pH 5.0 Ur Specific [place] 1.020 Urine Protein 100 H Urine Glucose (UA) Normal Urine Ketones 5 H Urine Occult Blood 250 H Urine Nitrite Negative Urine Bilirubin 6 H Urine Urobilinogen 1 H Ur Leukocyte Esterase 500 H Urine RBC 0 SEEN Urine WBC 10-25 SEEN Ur Squamous Epith Cells 10-25 SEEN Ur Transition Epith Cell 0-5 SEEN Urine Bacteria 2+ Hyaline Casts 0-5 SEEN Fine Granular Casts 0-5 SEEN Urine Mucus 0 SEEN Rhythm Strip Rhythm Strip: A-fib Rate: 109 Ectopy: None EKG Initial EKG: Attestation: I personally reviewed and interpreted this EKG as follows: Interpretation: Atrial Fibrillation Comments: Atrial fibrillation at a rate of 109 bpm Normal axis Normal intervals Normal ST segments with nonspecific T wave changes Compared to prior EKG on 07/09/2025?patient has better rate control Management Discussion w/another healthcare provider: Hospitalist Discharge Plan Dx/Rx/DC Orders Clinical Impression: Acute kidney injury, Atrial fibrillation, Leukocytosis, History of upper gastrointestinal bleeding Disposition Disposition: [facility] Discharge Date/Time: 07/12/25 23:07 What to do if you have Problems For any increased pain, shortness of breath, bleeding, nausea or vomiting, chestpain, or any unexpected problems, contact your Primary Care Provider. Call [facility] ([phone]) or report to the closest Emergency Room. Call 911 if necessary. 07/13/25 0035 <Electronically signed by Tiffanie Hutchinson DO> Cosigner Signature (if applicable): CC: Dr. Marciano Anaya DO ~ Signed [facility] Work Phone: 1(169) 874-514209-03-2025 History and physical note Author Courtney Rader [facility] Note Date/Time July 12, 2025 11:54pm [facility] Medical Records Department [address] [place] [id number] H&P Exam - Hospitalist 07/12/255 MR#: [id number] Acct: [id number] Name: BETSY LEE Geovany Rep #:[id number] : 1945 79 From: Courtney Rader MD PCP: Dr. Marciano Anaya DO Status:ADM IN Location: [facility] [id number] HPI - General General Date of Admission: 07/12/25 Date of Service: 07/12/25 Chief Complaint: Severe Diarrhea, debility, weakness. HPI Narrative The patient is a 79 y/o F w/ PMHx: Hypothyroidism, Hx Diabetes mellitus type II,Former EtOH abuse sober, PAF, Asthma/COPD, Former tobacco use, Anxiety and Depression, HTN, HLD, Chronic pain syndrome, Rheumatoid arthritis, Morbid obesity, CKD stage II/III unclear subtype, HFpEF, recently discharged home day of presentation following evaluation and treatment for upper GI bleed secondary to gastric ulcers with hemorrhage exacerbated by use of Eliquis and aspirin witha hemoglobin noted 03/18/2025 at 12.1 dropping down during recent admission on 07/10/25 Hgb 7.4 with PRBC administered w07/11/25 EGD with noted normal esophaguswith nonobstructing oozing gastric ulcers with visible vessel with no perforations with clips placed and nonbleeding gastric ulcers with pigmented material treated with argon plasma coagulation without discharge 07/12/25 Hgb 9.3 in addition to episode PAF with RVR with patient discharged on high-dose twice daily PPI and sucralfate in addition to topical nystatin for intertrigo treatment who re-presents to [facility] ED on 07/12/2025 with history of onset dizziness and generalized weakness following a loose bowel movement on evening on day of presentation noted to be brown with dark spots with recent upper GI bleed with evaluation per Dr. Mccallum prompting ED return. Workup in the ED included T97.8,heart rate 127, BP 102/58, respiratory rate 20, 93% room air, CBC with WC 18.3, hemonine 0.8, MCV 96.5, platelet 252 with left shift, CMP BUN/Cr 29/1.71, GFR 30, glucose 127 otherwise not marked appearing, urinalysis with specific gravity1.20, protein 100, ketone 5, occult blood 250, negative nitrite, leukocyte esterase 500, urine WBCs 10-25 with urine squamous epithelial cells 10-25 thus not a great sample with 2+ bacteria, EKG PAF with RVR with no acute evidence of ischemia. In the ED patient administerd IVFs and Lopressor 5 mg IV x 1. [facility] Medical History Atrial fibrillation Squamous cell skin cancer Skin lesion of hand Acute kidney injury Acute respiratory failure with hypoxia Lactic acidosis Vision disturbance Chronic pain syndrome Acute blood loss anemia Anxiety and depression Asthma HLD (hyperlipidemia) Morbid obesity GI bleed Hyperkalemia Hypertension History of rheumatoid arthritis Home Medications ?Medication ?Instructions ?Recorded ?Last Taken ?Type albuterol sulfate 90 mcg/actuation 1 - 2 puff inhalati on Q6H PRN PRN 03/15/15 10/09/16 History aerosol inhaler (ProAir HFA) Shortness Of Breath methotrexate sodium 2.5 mg tablet 20 mg PO MO Rheumato id arthritis 03/15/15 09/18/20 History folic acid 1 mg tablet 1 mg PO DAILY@0800 #0 TABLET S 03/29/15 09/19/20 11:00 Rx losartan 50 mg tablet 50 mg PO DAILY #30 TABLETS 0 03/29/15 09/19/20 11:00 Rx prednisone 10 mg tablet 10 mg PO PRN PRN arthritis f lare up 07/07/19 3 Days Ago History ~09/16/20 venlafaxine 150 mg 150 mg PO DAILY depression/a nxiety 07/07/19 09/19/20 11:00 History capsule,extended release 24 hr vitamins A,C,S-pkfv-[id number] 2,148 1 tab PO DAILY EYE HE ALTH 07/07/19 09/19/20 11:00 History mcg-113 mg-45 mg-17.4 mg tablet magnesium oxide 400 mg PO DAILY SUPPLEMENT 1 11/19/19 09/19/20 11:00 History levothyroxine 100 mcg tablet 100 mcg PO DAILY 07/16/23 Unknown History meclizine 12.5 mg tablet 12.5 mg PO DAILY 07/16/23 Un known History oxycodone-acetaminophen 10 mg-325 1 tab PO Q8H PRN heidi n 07/16/23 Unknown History mg tablet apixaban 5 mg tablet (Eliquis) 5 mg PO BID blood thinn er 07/09/25 Unknown History Held on 07/12/25. Instructions: Resume on 07/19/25. atorvastatin 40 mg tablet 40 mg PO DAILY cholesterol 0 07/09/25 Unknown History furosemide 40 mg tablet 40 mg PO DAILY diuretic 06/12 Unknown History metoprolol succinate 50 mg 50 mg PO DAILY blood pressu re 07/09/25 Unknown History tablet,extended release 24 hr amlodipine 5 mg tablet 5 mg PO DAILY 07/12/25 Unkno wn History budesonide-formoterol HFA 80 1 puff inhalation Q12H Unknown History mcg-4.5 mcg/actuation aerosol inhaler (Symbicort) nystatin 100,000 unit/gram topical 1 applic topical BI D #15 grams 07/12/25 Unknown Rx powder pantoprazole 40 mg tablet,delayed 40 mg PO BID #60 tab s 07/12/25 Unknown Rx release (Protonix) Allergy/AdvReac Type Severity Reaction Status Date / Time adhesive Allergy Other Verified 07/12/25 19:12 amoxicillin trihydrate (From Allergy Unknown Verified 07/12/25 19:12 Augmentin) latex Allergy Unknown Verified 07/12/25 19:12 Penicillins Allergy Unknown Verified 07/12/25 19:12 potassium clavulanate (From Allergy Unknown Verified 07/12/25 19:12 Augmentin) tetracycline Allergy Unknown Verified 07/12/25 19:12 Family History Sister Hypertension Brother Heart disease Mother Diabetes Heart disease Hypertension CVA (cerebral vascular accident) Skin cancer Father Prostate cancer Surgical History History of hand surgery History of reverse total replacement of left shoulder joint History of tonsillectomy History of appendectomy History of tubal ligation History of knee replacement History of hip replacement History of back surgery Status post reverse total replacement of right shoulder Social History household members: none Smoking Status: Former smoker alcohol intake: former substance use type: does not use ROS ROS Narrative Admission Review of Systems: CONSTITUTIONAL: No weight loss, fever, chills, + weakness or fatigue. HEENT: + Dizziness, lightheadedness. Eyes: No visual loss, blurred vision, double vision or yellow sclerae. Ears, Nose, Throat: No hearing loss, sneezing, congestion, runny nose or sore throat. SKIN: No rash or itching, lesions, wounds. CARDIOVASCULAR: + Chronic lower extremity edema, dizziness/lightheadedness acutely. No chest pain, chest pressure or chest discomfort, palpitations, rthopnea, syncopal events. RESPIRATORY: No shortness of breath, cough or sputum, wheezing, hemoptysis. GASTROINTESTINAL: + Recurrent melanotic/red-brown stools, loose stools. No anorexia, nausea, vomiting, abdominal pain, BRBPR. GENITOURINARY: No dysuria, frequency, urgency or retention. NEUROLOGICAL: + Lightheadedness, dizziness. No headache, syncope, paralysis, ataxia, numbness or tingling in the extremities, focal weakness, change in bowelor bladder control, seizure. MUSCULOSKELETAL: + muscle, back pain, joint pain or stiffness. HEMATOLOGIC: + Anemia, recent active history of GI bleed, easy bleeding/bruisingprevious given medication. LYMPHATICS: No enlarged nodes. No history of splenectomy. PSYCHIATRIC: + History of anxiety and depression. ENDOCRINOLOGIC: No reports of sweating, cold or heat intolerance. No polyuria orpolydipsia. ALLERGIES: + History of asthma. Vital Signs Vital Signs Vital Signs: 07/12/25 19:12 07/12/25 21:12 07/12/25 21:35 Temperature 97.8 F Temperature Source Temporal Pulse Rate 127 H 114 H Respiratory Rate 20 H 18 Respiratory Effort Normal Non-Labored Respiratory Pattern Normal Blood Pressure 102/58 L 108/55 L Blood Pressure Mean 72 72 Pulse Ox 93 96 Oxygen Delivery Method Room Air Room Air Weight Weight: 245 lb 2.464 oz Body Mass Index (BMI) 40.8 Physical Exam Narrative Physical Examination: General: Awake, alert, oriented x 3 and cooperative, laying in the ED bed, fatigued but notes feeling only improved since initial ED arrival. Skin: Normal color, normal turgor, no icterus, no cyanosis except for occasionalstage ecchymoses, abrasion, bilateral lower extremity venous stasis skin changes. HEENT: AT/NC, EOMI, PERRLA, mildly dry MM, no carotid bruits or JVD noted. Lungs: Mildly diminished, greater bases, poor effort, no rales, ronchi or wheezing. Heart: Irregular irregular; no gallop, rub audible. Abdomen: Soft, morbidly obese, NTTP, hyperactive BS, difficult to discern distention HSM given habitus. Extremities: No cyanosis, no clubbing, bilateral lower extremity pedal to knee chronic edema. Neurological: Patient awake, alert, oriented as noted, cognitive function intact; pupils equally reactive to light and accommodation, cranial nerves grossly normal, moving all 4 extremities, no focal deficits, strength moderatelyto severely globally decreased. Psychiatric: Affect appears flat, fatigued, no acute evidence of depressive or anxiety feelings but does have underlying history. Results Lab / Micro Data 07/12/25 21:38 07/12/25 21:38 Labs: Laboratory Results - last 24 hr 07/12/25 21:38: WBC 18.3 H, RBC 3.11 L, Hgb 9.8 L, Hct 30.0 L, MCV 96.5, MCH 31.5, MCHC 32.7, RDW Std Deviation 60.5 H, RDW Coeff of Espinoza 18.2 H, Plt Count 252, MPV 11.1, Immature Gran % (Auto) 1.500 H, Neut % (Auto) 77.6 H, Lymph % (Auto) 12.8 L, Hinds % (Auto) 7.1, Eos % (Auto) 0.7, Baso % (Auto) 0.3, Absolute Neuts (auto) 14.2 H, Absolute Lymphs (auto) 2.34, Nucleated RBC % 0.3, Sodium 137, Potassium 4.1, Chloride 101, Carbon Dioxide 23.4, Anion Gap 12, BUN 29 H, Creatinine 1.71 H, Estim Creat Clear Calc 33.13 L, Est GFR (MDRD) Non-Af 30 L, BUN/Creatinine Ratio 16.9, Glucose 127 H, Calcium 9.2, Total Bilirubin 0.37, AST20, ALT 13, Alkaline Phosphatase 101, Total Protein 6.5, Albumin 3.6, Globulin 2.8, Albumin/Globulin Ratio 1.3 Assessment & Plan Assessment/Plan (1) TRUMAN (acute kidney injury): PLAN: Plan The patient is a 79 y/o F w/ PMHx: Hypothyroidism, Hx Diabetes mellitus type II,Former EtOH abuse sober, PAF, Asthma/COPD, Former tobacco use, Anxiety and Depression, HTN, HLD, Chronic pain syndrome, Rheumatoid arthritis, Morbid obesity, CKD stage II/III unclear subtype, HFpEF, recently discharged home day of presentation following evaluation and treatment for upper GI bleed secondary to gastric ulcers with hemorrhage exacerbated by use of Eliquis and aspirin witha hemoglobin noted 03/18/2025 at 12.1 dropping down during recent admission on 07/10/25 Hgb 7.4 with PRBC administered 07/11/25 EGD with noted normal esophaguswith nonobstructing oozing gastric ulcers with visible vessel with no perforations with clips placed and nonbleeding gastric ulcers with pigmented material treated with argon plasma coagulation without discharge 07/12/25 Hgb 9.3 in addition to episode PAF with RVR with patient discharged on high-dose twice daily PPI and sucralfate in addition to topical nystatin for intertrigo treatment who re-presents to [facility] ED on 07/12/2025 with history of onset dizziness and generalized weakness following a loose bowel movement on evening on day of presentation noted to be brown with dark spots with recent upper GI bleed with evaluation per Dr. Mccallum prompting ED return. #1. Acute onset Dizziness, lightheadedness with TRUMAN on CKD stage II/III possible secondary to GI losses with severe diarrhea with general debility, adult failure to thrive recently discharged on day of presentation following suspected Acute upper GI bleed with gastric ulcers exacerbated by DOAC and aspirin therapy w/ resultant Acute Blood Loss Anemia with questionable acute complicated urinary tract infection however poor sample: Patient w/ following discharge concern for recurrent GI bleeding given lightheadedness, dizziness following significant diarrheal episode at home with stable hemoglobin upon current ED evaluation. Given significant acute kidney injury possibly from GI losses will admit to PCU given also PAF with RVR likely secondary to mild dehydration, maintain on fall precautions, will reattempt urinalysis with straight cath sample as notable squamous epithelial cells and send urine culturefrom this and if concerning UA will initiate antibiotic therapy, will continue judicious IV fluids, hold hypertensive medication and nephrotoxic medication as able although continue beta-rivera therapy as BP allows with plan for Lopressor5 mg IV x 1 to be administered in the ED prior to transition, hold all nephrotoxic medications, plan repeat CBC, CMP in AM. Will obtain AM orthostatic VS. Will obtain PT/OT/case management consultation for discharge planning as patient may require skilled transition prior to transition to home to be safe. #2. PAF w/ RVR: Given hypotensive presentation, IV fluids administered in the ED, likely secondary to GI losses also contributing to RVR episode, Lopressor 5 mg IV x 1 will be administered in the ED and as able will continue metoprolol regimen if possible, additionally holding eliquis given presentation as noted #1, magnesium level requested. #3. HFpEF: Noted in chart history, most recent echocardiogram 09/20/2020 with normal LV size, LV systolic function normal, EF 65%, stage I diastolic dysfunction. Cautiously hydrating, holding Eliquis given presentation, continuestatin, given hypotension temporarily holding patient home metoprolol losartan regimen as noted in addition to hold on diuretic Lasix therapy. #4. History of Diabetes mellitus type II: Most recent hemoglobin A1c noted 07/09/2025 to be 5.5% within the past 12/08/2019 hemoglobin A1c up to 6.4%, hold oral home regimen, continue home insulin regimen, ADA diet, accu checks w/ ISS. #5. Rheumatoid arthritis: Holding oral as needed steroids, cautiously continue sulfasalazine, methotrexate dosing noted to be every Friday but was held during recent admission given GI bleed presentation, continue folic acid supplementation. #6. Chronic asthma/COPD: Will maintain on ATC budesonide therapy, will have as needed albuterol, encourage head of bed and I-S. #7. Hypertension: Given hypotensive presentation will temporally hold home losartan and Lasix regimen, add back once clinically appropriate and renal function improved. #8. Hyperlipidemia: Continue patient on statin therapy. #9. Anxiety and depression: Will continue patient on venlafaxine regimen however will alter/hold as needed for renal function given TRUMAN. #10. Morbid Obesity: Weight loss and lifestyle changes encouraged. #11. Former tobacco use: Encouraged continued tobacco cessation. #12. Former alcohol abuse: Encouraged continued sobriety, sober for approximately 34-35 years. DVT prophylaxis: SCDs. #13. Hypothyroidism: Will continue patient on levothyroxine regimen. #14. CODE status: Patient BENNIE is her daughters and living will is currently in place. Discussed CODE status at length including difference between FULL code, DNR-CCA and DNR-CC status. Following discussions about the differences in these status, requested DNR-CCA and following discussions and examples reviewed with allowance of intubation short-term. Advanced Care Planning Face to Face Time: 16 minutes. Charges/Coding Visit Charges Inpatient E&M: 50926 Init Hosp L3 Procedures Hospitalists Procedures: 49534 Advncd Care Plan 30 Min 07/12/25 8313 <Electronically signed by Courtney Rader MD> Cosigner Signature (if applicable): CC: Dr. Courtney Rader MD; Dr. Marciano Anaya, DO~ Signed [facility] Work Phone: 1(178) 559-255609-03-2025 Discharge summary [facility] Medical Records Department [address] [place] [address] [place] [address] Emergency Department Summary 07/13/25 MR#: [id number] Acct: [id number] Name: BETSY LEE Rep #:[id number] : 1945 79 From: Tiffanie Bowman PCP: Dr. Marciano Anaya, DO Status:ADM IN Location: [place] [address] HPI HPI - GI History of Present Illness Chief Complaint: GI Bleed Informant: patient and family Diarrhea/Melena/Hematochezia GI Symptom: Positive for Diarrhea Onset: Today Narrative Narrative: Patient is a 79-year-old female with history of atrial fibrillation and a recentadmission for upperGI bleeding. She was actually just discharged from the hospital today. She states before she left they gave her solid food for the first time (previously been on clear liquid diet). Currently tenderness after getting home she had robust episode of diarrhea. She states she could make it to the bathroom initially. She states she had a very large amount of stool comeout. There was what appeared to be some dark blood mixed with the stool but sheis not entirely certain. She states she then started feel very weak and dizzy. She is then brought back to the emergency room. She denies dizziness abdominal pain. She notes she did feel she was having a hard time moving around. She nottake any of her evening medicines and states she had been at time to go over herdischarge paperwork before returning to the emergency room. She has had her anticoagulation on hold because of her recent GI bleed. Denies any associated fevers, chest pain, nausea or vomiting peer [facility] Medical History Fatigue SCHULTZ (dyspnea on exertion) Leukocytosis Morbid obesity with BMI of 40.0-44.9, adult Acute exacerbation of chronic heart failure Atrial fibrillation with RVR Adverse drug reaction Upper GI bleed Melanotic stools ABLA (acute blood loss anemia) Atrial fibrillation Squamous cell skin cancer Skin lesion of hand Acute kidney injury Acute respiratory failure with hypoxia Lactic acidosis Vision disturbance Chronic pain syndrome Acute blood loss anemia Anxiety and depression Asthma HLD (hyperlipidemia) Morbid obesity GI bleed Hyperkalemia Hypertension History of rheumatoid arthritis Home Medications ?Medication ?Instructions ?Recorded ?Last Taken ?Type albuterol sulfate 90 mcg/actuation 1 - 2 puff inhalati on Q6H PRN PRN 03/15/15 10/09/16 History aerosol inhaler (ProAir HFA) Shortness Of Breath methotrexate sodium 2.5 mg tablet 20 mg PO MO Rheumato id arthritis 03/15/15 09/18/20 History folic acid 1 mg tablet 1 mg PO DAILY@0800 #0 TABLET S 03/29/15 09/19/20 11:00 Rx losartan 50 mg tablet 50 mg PO DAILY #30 TABLETS 0 03/29/15 09/19/20 11:00 Rx prednisone 10 mg tablet 10 mg PO PRN PRN arthritis f lare up 07/07/19 3 Days Ago History ~09/16/20 venlafaxine 150 mg 150 mg PO DAILY depression/a nxiety 07/07/19 09/19/20 11:00 History capsule,extended release 24 hr vitamins A,C,E-qekn-prchbz 2,148 1 tab PO DAILY EYE HE ALTH 07/07/19 09/19/20 11:00 History mcg-113 mg-45 mg-17.4 mg tablet magnesium oxide 400 mg PO DAILY SUPPLEMENT 1 11/19/19 09/19/20 11:00 History levothyroxine 100 mcg tablet 100 mcg PO DAILY 07/16/23 Unknown History meclizine 12.5 mg tablet 12.5 mg PO DAILY 07/16/23 Un known History oxycodone-acetaminophen 10 mg-325 1 tab PO Q8H PRN heidi n 07/16/23 Unknown History mg tablet apixaban 5 mg tablet (Eliquis) 5 mg PO BID blood thinn er 07/09/25 Unknown History Held on 07/12/25. Instructions: Resume on 07/19/25. atorvastatin 40 mg tablet 40 mg PO DAILY cholesterol 0 07/09/25 Unknown History furosemide 40 mg tablet 40 mg PO DAILY diuretic 06/12 Unknown History metoprolol succinate 50 mg 50 mg PO DAILY blood pressu re 07/09/25 Unknown History tablet,extended release 24 hr amlodipine 5 mg tablet 5 mg PO DAILY 07/12/25 Unkno wn History budesonide-formoterol HFA 80 1 puff inhalation Q12H Unknown History mcg-4.5 mcg/actuation aerosol inhaler (Symbicort) nystatin 100,000 unit/gram topical 1 applic topical BI D #15 grams 07/12/25 Unknown Rx powder pantoprazole 40 mg tablet,delayed 40 mg PO BID #60 tab s 07/12/25 Unknown Rx release (Protonix) Allergy/AdvReac Type Severity Reaction Status Date / Time adhesive Allergy Other Verified 07/12/25 19:12 amoxicillin trihydrate (From Allergy Unknown Verified 07/12/25 19:12 Augmentin) latex Allergy Unknown Verified 07/12/25 19:12 Penicillins Allergy Unknown Verified 07/12/25 19:12 potassium clavulanate (From Allergy Unknown Verified 07/12/25 19:12 Augmentin) tetracycline Allergy Unknown Verified 07/12/25 19:12 Family History Sister Hypertension Brother Heart disease Mother Diabetes Heart disease Hypertension CVA (cerebral vascular accident) Skin cancer Father Prostate cancer Surgical History History of hand surgery History of reverse total replacement of left shoulder joint History of tonsillectomy History of appendectomy History of tubal ligation History of knee replacement History of hip replacement History of back surgery Status post reverse total replacement of right shoulder Social History household members: none Smoking Status: Former smoker alcohol intake: former substance use type: does not use ROS ROS ED Constitutional Constitutional ED: Reports other Details: Generalized weakness, lightheaded ; Denies chills or fever(s) Cardiovascular Cardiovascular: Denies chest pain or palpitations Respiratory/Chest Respiratory/Chest: Denies cough or dyspnea Gastrointestinal Gastrointestinal: Reports diarrhea and melena; Denies abdominal pain, nausea or vomiting Genitourinary Genitourinary ED: Denies dysuria Musculoskeletal Musculoskeletal: Denies arthralgias or myalgias Integumentary Denies rash Neurologic Neurologic: Reports weakness Hematologic/Lymphatic Hematologic/Lymphatic: Reports easy bleeding and easy bruising EXAM Physical Exam Const Vital Signs: 07/12/25 19:12 07/12/25 21:12 07/12/25 21:35 Temperature 97.8 F Temperature Source Temporal Pulse Rate 127 H 114 H Respiratory Rate 20 H 18 Respiratory Effort Normal Non-Labored Respiratory Pattern Normal Blood Pressure 102/58 L 108/55 L Blood Pressure Mean 72 72 Pulse Ox 93 96 Oxygen Delivery Method Room Air Room Air Positive well nourished, well developed and obese General Appearance ED: well developed and NAD; Negative for pallor Nutritional Appearance: obese HEENT Reports dry mucous membranes normocephalic Mouth ED: Yes dry mucous membranes Mouth: dry mucous membranes Eyes PERRL and EOMs intact bilaterally Neck supple Resp normal respiratory effort and clear to auscultation bilaterally Cardio no murmurs Rate: tachycardic Rhythm: abnormal rhythm irregularly irregular GI non-tender and non-distended GI Narrative: Chaperoned rectal exam performed. Patient has darker brown stool with some subtle red discolorationto it Neuro moves all extremities Sensorium / Orientation: alert, oriented to person, oriented to place and oriented to time Motor Exam: general weakness Psych mental status grossly normal and thought process normal Skin no wounds General Skin Exam: Negative for jaundice or pallor MDM MDM MDM Narrative Medical decision making narrative: Patient evaluated for episode of diarrhea with associated generalized weakness. She was just discharged from the hospital today after admission for upper GI bleeding. Differential includes diverticulitis, further GI bleeding, urinary tract infection, functional diarrhea. Lower suspicion for ischemic colitis as patientis not having associate abdominal pain. Also consider C. difficile however she has only had 1 episode of diarrhea. Patient is tachycardic upon arrival however she got her evening medications. Is given IV fluids in the emergency room. CBC does show leukocytosis of 18.3 with a left shift. Question infection versusreactive with her diarrhea. She does have an acute kidney injury with a creatinine of 1.71 (was 1.00 yesterday). No significant electrolyte derangement. Urinalysis does show 2+ bacteria but is contaminated. Will send forculture but will hold off on treatment at this time. Hemoglobin is stable still. Low suspicion for acute bleeding. Patient is given 5 mg IV metoprolol as she is in A-fib with RVR. She is asymptomatic from that standpoint. She does have a history of this. Will discuss with hospitalist for admission. Patient and family agreeable. Discharge summary from earlier today is reviewed?patient had acute upper GI bleed secondary gastriculcers exacerbated by Eliquis and aspirin. Is off Eliquis and aspirin for now. Is on PPI therapy. Hemoglobin stable at time of discharge. Lab Data Attestation: I reviewed the patient's lab results. Labs: Laboratory Results - last 24 hr 07/12/25 07/12/25 21:38 22:05 WBC 18.3 H RBC 3.11 L Hgb 9.8 L Hct 30.0 L MCV 96.5 MCH 31.5 MCHC 32.7 RDW Std Deviation 60.5 H RDW Coeff of Espinoza 18.2 H Plt Count 252 MPV 11.1 Immature Gran % (Auto) 1.500 H Neut % (Auto) 77.6 H Lymph % (Auto) 12.8 L Hinds % (Auto) 7.1 Eos % (Auto) 0.7 Baso % (Auto) 0.3 Absolute Neuts (auto) 14.2 H Absolute Lymphs (auto) 2.34 Nucleated RBC % 0.3 Sodium 137 Potassium 4.1 Chloride 101 Carbon Dioxide 23.4 Anion Gap 12 BUN 29 H Creatinine 1.71 H Estim Creat Clear Calc 33.13 L Est GFR (MDRD) Non-Af 30 L BUN/Creatinine Ratio 16.9 Glucose 127 H Calcium 9.2 Magnesium 2.1 Total Bilirubin 0.37 AST 20 ALT 13 Alkaline Phosphatase 101 Total Protein 6.5 Albumin 3.6 Globulin 2.8 Albumin/Globulin Ratio 1.3 Urine Color Yellow Urine Clarity Sl. Cloudy Urine pH 5.0 Ur Specific [place] 1.020 Urine Protein 100 H Urine Glucose (UA) Normal Urine Ketones 5 H Urine Occult Blood 250 H Urine Nitrite Negative Urine Bilirubin 6 H Urine Urobilinogen 1 H Ur Leukocyte Esterase 500 H Urine RBC 0 SEEN Urine WBC 10-25 SEEN Ur Squamous Epith Cells 10-25 SEEN Ur Transition Epith Cell 0-5 SEEN Urine Bacteria 2+ Hyaline Casts 0-5 SEEN Fine Granular Casts 0-5 SEEN Urine Mucus 0 SEEN Rhythm Strip Rhythm Strip: A-fib Rate: 109 Ectopy: None EKG Initial EKG: Attestation: I personally reviewed and interpreted this EKG as follows: Interpretation: Atrial Fibrillation Comments: Atrial fibrillation at a rate of 109 bpm Normal axis Normal intervals Normal ST segments with nonspecific T wave changes Compared to prior EKG on 07/09/2025?patient has better rate control Management Discussion w/another healthcare provider: Hospitalist Discharge Plan Dx/Rx/DC Orders Clinical Impression: Acute kidney injury, Atrial fibrillation, Leukocytosis, History of upper gastrointestinal bleeding Disposition Disposition: Acute Care Hospital [facility] Discharge Date/Time: 07/12/25 23:07 What to do if you have Problems For any increased pain, shortness of breath, bleeding, nausea or vomiting, chestpain, or any unexpected problems, contact your Primary Care Provider. Call [facility] ([phone]) or report tothe closest Emergency Room. Call 911 if necessary. 07/13/25 0035 Cosigner Signature (if applicable): CC: Dr. Marciano Anaya, DO ~ Signed [facility]09-02-2025 History and physical note [facility] Medical Records Department [address] [place] [address] H&P Exam - Hospitalist 07/12/252234 MR#: [id number] Acct: [id number] Name: BETSY LEE Rep #:[id number] : 1945 79 From: Courtney Rader MD PCP: Dr. Marciano Anaya, Status:ADM IN Location: [place] [address] HPI - General General Date of Admission: 07/12/25 Date of Service: 07/12/25 Chief Complaint: Severe Diarrhea, debility, weakness. HPI Narrative The patient is a 79 y/o F w/ PMHx: Hypothyroidism, Hx Diabetes mellitus type II,Former EtOH abuse sober, PAF, Asthma/COPD, Former tobacco use, Anxiety and Depression, HTN, HLD, Chronic pain syndrome,Rheumatoid arthritis, Morbid obesity, CKD stage II/III unclear subtype, HFpEF, recently discharged home day of presentation following evaluation and treatment for upper GI bleed secondary to gastric ulcers with hemorrhage exacerbated by use of Eliquis and aspirin witha hemoglobin noted 03/18/2025 at 12.1 dropping down during recent admission on 07/10/25 Hgb 7.4 with PRBC administered w07/11/25 EGD with noted normal esophaguswith nonobstructing oozing gastric ulcers with visible vessel with no perforations with clips placed and nonbleeding gastric ulcers with pigmented material treated with argonplasma coagulation without discharge 07/12/25 Hgb 9.3 in addition to episode PAF with RVR with patient discharged on high-dose twice daily PPI and sucralfate in addition to topical nystatin for intertrigo treatment who re-presents to [facility] ED on 07/12/2025 with history of onset dizziness and generalized weakness following a loose bowel movement on evening on day of presentation noted to be brown with dark spots with recent upper GI bleed with evaluation per Dr. Mccallum prompting ED return. Workup in the ED included T97.8,heart rate 127, BP 102/58, respiratory rate 20, 93% room air, CBC with WC 18.3,hemonine 0.8, MCV 96.5, platelet 252 with left shift, CMP BUN/Cr 29/1.71, GFR 30, glucose 127 otherwise not marked appearing, urinalysis with specific gravity1.20, protein 100, ketone 5, occult [id number], negative nitrite, leukocyte esterase 500, urine WBCs 10-25 with urine squamous epithelial cells 10-25 thus not a great sample with 2+ bacteria, EKG PAF with RVR with no acute evidence of ischemia. In the ED patient administerd IVFs and Lopressor 5 mg IV x 1. PFSH Medical History Atrial fibrillation Squamous cell skin cancer Skin lesion of hand Acute kidney injury Acute respiratory failure with hypoxia Lactic acidosis Vision disturbance Chronic pain syndrome Acute blood loss anemia Anxiety and depression Asthma HLD (hyperlipidemia) Morbid obesity GI bleed Hyperkalemia Hypertension History of rheumatoid arthritis Home Medications ?Medication ?Instructions ?Recorded ?Last Taken ?Type albuterol sulfate 90 mcg/actuation 1 - 2 puff inhalati on Q6H PRN PRN 03/15/15 10/09/16 History aerosol inhaler (ProAir HFA) Shortness Of Breath methotrexate sodium 2.5 mg tablet 20 mg PO MO Rheumato id arthritis 03/15/15 09/18/20 History folic acid 1 mg tablet 1 mg PO DAILY@0800 #0 TABLET S 03/29/15 09/19/20 11:00 Rx losartan 50 mg tablet 50 mg PO DAILY #30 TABLETS 0 03/29/15 09/19/20 11:00 Rx prednisone 10 mg tablet 10 mg PO PRN PRN arthritis f lare up 07/07/19 3 Days Ago History ~09/16/20 venlafaxine 150 mg 150 mg PO DAILY depression/a nxiety 07/07/19 09/19/20 11:00 History capsule,extended release 24 hr vitamins A,C,E-rasi-hvwhog 2,148 1 tab PO DAILY EYE HE ALTH 07/07/19 09/19/20 11:00 History mcg-113 mg-45 mg-17.4 mg tablet magnesium oxide 400 mg PO DAILY SUPPLEMENT 1 11/19/19 09/19/20 11:00 History levothyroxine 100 mcg tablet 100 mcg PO DAILY 07/16/23 Unknown History meclizine 12.5 mg tablet 12.5 mg PO DAILY 07/16/23 Un known History oxycodone-acetaminophen 10 mg-325 1 tab PO Q8H PRN heidi n 07/16/23 Unknown History mg tablet apixaban 5 mg tablet (Eliquis) 5 mg PO BID blood thinn er 07/09/25 Unknown History Held on 07/12/25. Instructions: Resume on 07/19/25. atorvastatin 40 mg tablet 40 mg PO DAILY cholesterol 0 07/09/25 Unknown History furosemide 40 mg tablet 40 mg PO DAILY diuretic 06/12 Unknown History metoprolol succinate 50 mg 50 mg PO DAILY blood pressu re 07/09/25 Unknown History tablet,extended release 24 hr amlodipine 5 mg tablet 5 mg PO DAILY 07/12/25 Unkno wn History budesonide-formoterol HFA 80 1 puff inhalation Q12H Unknown History mcg-4.5 mcg/actuation aerosol inhaler (Symbicort) nystatin 100,000 unit/gram topical 1 applic topical BI D #15 grams 07/12/25 Unknown Rx powder pantoprazole 40 mg tablet,delayed 40 mg PO BID #60 tab s 07/12/25 Unknown Rx release (Protonix) Allergy/AdvReac Type Severity Reaction Status Date / Time adhesive Allergy Other Verified 07/12/25 19:12 amoxicillin trihydrate (From Allergy Unknown Verified 07/12/25 19:12 Augmentin) latex Allergy Unknown Verified 07/12/25 19:12 Penicillins Allergy Unknown Verified 07/12/25 19:12 potassium clavulanate (From Allergy Unknown Verified 07/12/25 19:12 Augmentin) tetracycline Allergy Unknown Verified 07/12/25 19:12 Family History Sister Hypertension Brother Heart disease Mother Diabetes Heart disease Hypertension CVA (cerebral vascular accident) Skin cancer Father Prostate cancer Surgical History History of hand surgery History of reverse total replacement of left shoulder joint History of tonsillectomy History of appendectomy History of tubal ligation History of knee replacement History of hip replacement History of back surgery Status post reverse total replacement of right shoulder Social History household members: none Smoking Status: Former smoker alcohol intake: former substance use type: does not use ROS ROS Narrative Admission Review of Systems: CONSTITUTIONAL: No weight loss, fever, chills, + weakness or fatigue. HEENT: + Dizziness, lightheadedness. Eyes: No visual loss, blurred vision, double vision or yellow sclerae. Ears, Nose, Throat: No hearing loss, sneezing, congestion, runny nose or sore throat. SKIN: No rash or itching, lesions, wounds. CARDIOVASCULAR: + Chronic lower extremity edema, dizziness/lightheadedness acutely. No chest pain, chest pressure or chest discomfort, palpitations, rthopnea, syncopal events. RESPIRATORY: No shortness of breath, cough or sputum, wheezing, hemoptysis. GASTROINTESTINAL: + Recurrent melanotic/red-brown stools, loose stools. No anorexia, nausea, vomiting, abdominal pain, BRBPR. GENITOURINARY: No dysuria, frequency, urgency or retention. NEUROLOGICAL: + Lightheadedness, dizziness. No headache, syncope, paralysis, ataxia, numbness or tingling in the extremities, focal weakness, change in bowelor bladder control, seizure. MUSCULOSKELETAL: + muscle, back pain, joint pain or stiffness. HEMATOLOGIC: + Anemia, recent active history of GI bleed, easy bleeding/bruisingprevious given medication. LYMPHATICS: No enlarged nodes. No history of splenectomy. PSYCHIATRIC: + History of anxiety and depression. ENDOCRINOLOGIC: No reports of sweating, cold or heat intolerance. No polyuria orpolydipsia. ALLERGIES: + History of asthma. Vital Signs Vital Signs Vital Signs: 07/12/25 19:12 07/12/25 21:12 07/12/25 21:35 Temperature 97.8 F Temperature Source Temporal Pulse Rate 127 H 114 H Respiratory Rate 20 H 18 Respiratory Effort Normal Non-Labored Respiratory Pattern Normal Blood Pressure 102/58 L 108/55 L Blood Pressure Mean 72 72 Pulse Ox 93 96 Oxygen Delivery Method Room Air Room Air Weight Weight: 245 lb 2.464 oz Body Mass Index (BMI) 40.8 Physical Exam Narrative Physical Examination: General: Awake, alert, oriented x 3 and cooperative, laying in the ED bed, fatigued but notes feeling only improved since initial ED arrival. Skin: Normal color, normal turgor, no icterus, no cyanosis except for occasionalstage ecchymoses, abrasion, bilateral lower extremity venous stasis skin changes. HEENT: AT/NC, EOMI, PERRLA, mildly dry MM, no carotid bruits or JVD noted. Lungs: Mildly diminished, greater bases, poor effort, no rales, ronchi or wheezing. Heart: Irregular irregular; no gallop, rub audible. Abdomen: Soft, morbidly obese, NTTP, hyperactive BS, difficult to discern distention HSM given habitus. Extremities: No cyanosis, no clubbing, bilateral lower extremity pedal to knee chronic edema. Neurological: Patient awake, alert, oriented as noted, cognitive function intact; pupils equally reactive to light and accommodation, cranial nerves grossly normal, moving all 4 extremities, no focaldeficits, strength moderatelyto severely globally decreased. Psychiatric: Affect appears flat, fatigued, no acute evidence of depressive or anxiety feelings butdoes have underlying history. Results Lab / Micro Data 07/12/25 21:38 07/12/25 21:38 Labs: Laboratory Results - last 24 hr 07/12/25 21:38: WBC 18.3 H, RBC 3.11 L, Hgb 9.8 L, Hct 30.0 L, MCV 96.5, MCH 31.5, MCHC 32.7, RDW Std Deviation 60.5 H, RDW Coeff of Espinoza 18.2 H, Plt Count 252, MPV 11.1, Immature Gran % (Auto) 1.500 H, Neut % (Auto) 77.6 H, Lymph % (Auto) 12.8 L, Hinds % (Auto) 7.1, Eos % (Auto) 0.7, Baso % (Auto) 0.3, Absolute Neuts (auto) 14.2 H, Absolute Lymphs (auto) 2.34, Nucleated RBC % 0.3, Sodium 137, Potassium 4.1, Chloride 101, Carbon Dioxide 23.4, Anion Gap 12, BUN 29 H, Creatinine 1.71 H, Estim CreatClear Calc 33.13 L, Est GFR (MDRD) Non-Af 30 L, BUN/Creatinine Ratio 16.9, Glucose 127 H, Calcium 9.2, Total Bilirubin 0.37, AST20, ALT 13, Alkaline Phosphatase 101, Total Protein 6.5, Albumin 3.6, Gl obulin 2.8, Albumin/Globulin Ratio 1.3 Assessment & Plan Assessment/Plan (1) TRUMAN (acute kidney injury): PLAN: Plan The patient is a 79 y/o F w/ PMHx: Hypothyroidism, Hx Diabetes mellitus type II,Former EtOH abuse sober, PAF, Asthma/COPD, Former tobacco use, Anxiety and Depression, HTN, HLD, Chronic pain syndrome,Rheumatoid arthritis, Morbid obesity, CKD stage II/III unclear subtype, HFpEF, recently discharged home day of presentation following evaluation and treatment for upper GI bleed secondary to gastric ulcers with hemorrhage exacerbated by use of Eliquis and aspirin witha hemoglobin noted 03/18/2025 at 12.1 dropping down during recent admission on 07/10/25 Hgb 7.4 with PRBC administered w/ 07/11/25 EGD with noted normal esophaguswith nonobstructing oozing gastric ulcers with visible vessel with no perforations with clips placed and nonbleeding gastric ulcers with pigmented material treated with argonplasma coagulation without discharge 07/12/25 Hgb 9.3 in addition to episode PAF with RVR with patient discharged on high-dose twice daily PPI and sucralfate in addition to topical nystatin for intertrigo treatment who re-presents to [facility] ED on 07/12/2025 with history of onset dizziness and generalized weakness following a loose bowel movement on evening on day of presentation noted to be brown with dark spots with recent upper GI bleed with evaluation per Dr. Mccallum prompting ED return. #1. Acute onset Dizziness, lightheadedness with TRUMAN on CKD stage II/III possible secondary to GI losses with severe diarrhea with general debility, adult failure to thrive recently discharged on day of presentation following suspected Acute upper GI bleed with gastric ulcers exacerbated by DOAC andaspirin therapy w/ resultant Acute Blood Loss Anemia with questionable acute complicated urinary tract infection however poor sample: Patient w/ following discharge concern for recurrent GI bleeding given lightheadedness, dizziness following significant diarrheal episode at home with stable hemoglobin upon current ED evaluation. Given significant acute kidney injury possibly from GI losses will admit to PCU given also PAF with RVR likely secondary to mild dehydration, maintain on fall precautions, will reattempt urinalysis with straight cath sample as notable squamous epithelial cells and send urine culturefrom this and if concerning UA will initiate antibiotic therapy, will continue judicious IV fluids, hold hypertensive medication and nephrotoxic medication as able although continue beta-rivera therapy as BP allows with plan for Lopressor5 mg IV x 1 to be administered in the ED priorto transition, hold all nephrotoxic medications, plan repeat CBC, CMP in AM. Will obtain AM orthostatic VS. Will obtain PT/OT/case management consultation for discharge planning as patient may require skilled transition prior to transition to home to be safe. #2. PAF w/ RVR: Given hypotensive presentation, IV fluids administered in the ED, likely secondary to GI losses also contributing to RVR episode, Lopressor 5 mg IV x 1 will be administered in the ED and as able will continue metoprolol regimen if possible, additionally holding eliquis given presentation as noted #1, magnesium level requested. #3. HFpEF: Noted in chart history, most recent echocardiogram 09/20/2020 with normal LV size, LV systolic function normal, EF 65%, stage I diastolic dysfunction. Cautiously hydrating, holding Eliquisgiven presentation, continuestatin, given hypotension temporarily holding patient home metoprolol lo sartan regimen as noted in addition to hold on diuretic Lasix therapy. #4. History of Diabetes mellitus type II: Most recent hemoglobin A1c noted 07/09/2025 to be 5.5% within the past 12/08/2019 hemoglobin A1c up to 6.4%, hold oral home regimen, continue home insulin regimen, ADA diet, accu checks w/ ISS. #5. Rheumatoid arthritis: Holding oral as needed steroids, cautiously continue sulfasalazine, methotrexate dosing noted to be every Friday but was held during recent admission given GI bleed presentation, continue folic acid supplementation. #6. Chronic asthma/COPD: Will maintain on ATC budesonide therapy, will have as needed albuterol, encourage head of bed and I-S. #7. Hypertension: Given hypotensive presentation will temporally hold home losartan and Lasix regimen, add back once clinically appropriate and renal function improved. #8. Hyperlipidemia: Continue patient on statin therapy. #9. Anxiety and depression: Will continue patient on venlafaxine regimen however will alter/hold asneeded for renal function given TRUMAN. #10. Morbid Obesity: Weight loss and lifestyle changes encouraged. #11. Former tobacco use: Encouraged continued tobacco cessation. #12. Former alcohol abuse: Encouraged continued sobriety, sober for approximately 34-35 years. DVT prophylaxis: SCDs. #13. Hypothyroidism: Will continue patient on levothyroxine regimen. #14. CODE status: Patient BENNIE is her daughters and living will is currently in place. Discussed CODE status at length including difference between FULL code, DNR-CCA and DNR-CC status. Following discussions about the differences in these status, requested DNR-CCA and following discussions and examples reviewed with allowance of intubation short-term. Advanced Care Planning Face to Face Time: 16 minutes. Charges/Coding Visit Charges Inpatient E&M: 10929 Init Hosp L3 Procedures Hospitalists Procedures: 13219 Advncd Care Plan 30 Min 07/12/25 2354 Cosigner Signature (if applicable): CC: Dr. Courtney Rader MD; Dr. Marciano Anaya DO~ Signed [facility]09-02-2025 Discharge summary Author Marciano Nayloressentia healthиван [facility] Note Date/Time July 12, 2025 12:49pm [facility] Medical Records Department [address] [place] [address] Instructions for Home/Discharge Instructions 07/12/25 1233 MR#: [id number] Acct: [id number] Name: BETSY LEE Rep #:[id number] : 1945 79 From: Marciano Castellanos DO PCP: Dr. Marciano Anaya DO Status:ADM IN Discharge Instructions DC O2, CPAP, BIPAP needs Home O2 Discharge instructions: No Dressing / Incision Discharge Activity: Return to Normal Activity Weight Bearing Status: Full weight bearing Follow Up Care Test Results: Test results from this visit will be discussed in further detail at your follow- up appointment, if applicable. Discharge Plan Admission Admit Date/Time: 07/10/25 02:17 Primary Reason for Your Visit: Gastric ulcer with more GI bleed, atrial fib withRVR Attending Provider: Marciano Castellanos Primary Care Provider: Marciano Anaya Consulting Providers: Dakota Delarosa; Cuauhtemoc Mccallum; Anna Hernandez; Vicki Luna; Brianda Bergeron; Bro Johnson; Pieter Hu Instructions Additional Instructions / Restrictions: Do not take any aspirin, Aleve, or ibuprofen-take Tylenol for pain Discharge Orders/Prescriptions Prescriptions: New nystatin 100,000 unit/gram Powder 1 applic topical BID Qty: 15 0RF Protocol: *Topical Application Instructions APPLICATION INSTRUCTIONS: axillary and abd folds sucralfate 1 gram Tablet 1 g PO TID@0700,1100,1600 Qty: 90 0RF pantoprazole [Protonix] 40 mg tablet,delayed release (DR/EC) 40 mg PO BID Qty: 60 0RF Continued oxycodone-acetaminophen 10-325 mg tablet PO Patient Comments: TAKE 1 TABLET BY MOUTH THREE TIMES DAILY NEEDED levothyroxine 100 mcg tablet PO meclizine 12.5 mg tablet PO methotrexate sodium 2.5 MG tablet 20 mg PO MO Patient Comments: Rheumatoid Arthritis - on Mondays albuterol sulfate [ProAir HFA] 1 PUFF inhaler [...] release 24hr 150 mg PO DAILY vitamins A,C,L-hkei-vbzlme 1 EACH tablet 1 tab PO DAILY magnesium oxide 400 MG tablet 400 mg PO DAILY furosemide 40 mg tablet 40 mg PO DAILY atorvastatin 40 mg tablet 40 mg PO DAILY metoprolol succinate 50 mg tablet extended release 24 hr 50 mg PO DAILY Held Eliquis 5 mg tablet 5 mg PO BID Hold Instructions: Resume on 07/19/25. Discontinued hydrochlorothiazide 25 MG tablet 25 mg PO DAILY Patient Comments: Blood pressure aspirin 81 MG tablet 81 mg PO DAILY@0800 Qty: 30 0RF amlodipine 5 mg tablet 5 mg PO DAILY Referrals / Follow Up: Marciano Anaya DO [Primary Care Provider] - In 1 Week Disposition Disposition (needs filled in before D/C Order can be placed): Home, Self Care 07/12/25 1249<Electronically signed by Marciano Castellanos DO>Marciano Castellanos DO CC: COMMUNITY PROGRAM ASSISTANTDarell Hernandez; COMMUNITY PROGRAM ASSISTANTPegC Vicki Luna; Dr. Pieter Hu DO; Dr. Bro Johnson DO; Dr. Marciano Anaya DO; Dr. Dakota Delarosa MD; CHENTE Cook; Cuau[place]emoc Mccallum DO ~ Signed [facility] Work Phone: 1(409) 787-786609-02-2025 Hospital Discharge instructionsAdditional Instructions Do not take any aspirin, Aleve, or ibuprofen-take Tylenol for pain [facility]: [facility] 1(729) 520-933009-02-2025 Discharge summary [facility] Medical Records Department [address] [place] [address] Instructions for Home/Discharge Instructions 07/12/25 1233 MR#: [id number] Acct: [id number] Name: BETSY LEE Rep #:[id number] : 1945 79 From: Marciano Castellanos DO PCP: Dr. Marciano Anaya DO Status:ADM IN Discharge Instructions DC O2, CPAP, BIPAP needs Home O2 Discharge instructions: No Dressing / Incision Discharge Activity: Return to Normal Activity Weight Bearing Status: Full weight bearing Follow Up Care Test Results: Test results from this visit will be discussed in further detail at your follow- up appointment, if applicable. Discharge Plan Admission Admit Date/Time: 07/10/25 02:17 Primary Reason for Your Visit: Gastric ulcer with more GI bleed, atrial fib withRVR Attending Provider: Marciano Castellanos Primary Care Provider: Marciano Anaya Consulting Providers: Dakota Delarosa; Cuauhtemoc Mccallum; Anna Hernandez; Vicki Luna; Brianda Bergeron; Bro Johnson; Pieter Hu Instructions Additional Instructions / Restrictions: Do not take any aspirin, Aleve, or ibuprofen-take Tylenol for pain Discharge Orders/Prescriptions Prescriptions: New nystatin 100,000 unit/gram Powder 1 applic topical BID Qty: 15 0RF Protocol: *Topical Application Instructions APPLICATION INSTRUCTIONS: axillary and abd folds sucralfate 1 gram Tablet 1 g PO TID@0700,1100,1600 Qty: 90 0RF pantoprazole [Protonix] 40 mg tablet,delayed release (DR/EC) 40 mg PO BID Qty: 60 0RF Continued oxycodone-acetaminophen 10-325 mg tablet PO Patient Comments: TAKE 1 TABLET BY MOUTH THREE TIMES DAILY NEEDED levothyroxine 100 mcg tablet PO meclizine 12.5 mg tablet PO methotrexate sodium 2.5 MG tablet 20 mg PO MO Patient Comments: Rheumatoid Arthritis - on Mondays albuterol sulfate [ProAir HFA] 1 PUFF inhaler [...] release 24hr 150 mg PO DAILY vitamins A,C,E-jkay-bdytir 1 EACH tablet 1 tab PO DAILY magnesium oxide 400 MG tablet 400 mg PO DAILY furosemide 40 mg tablet 40 mg PO DAILY atorvastatin 40 mg tablet 40 mg PO DAILY metoprolol succinate 50 mg tablet extended release 24 hr 50 mg PO DAILY Held Eliquis 5 mg tablet 5 mg PO BID Hold Instructions: Resume on 07/19/25. Discontinued hydrochlorothiazide 25 MG tablet 25 mg PO DAILY Patient Comments: Blood pressure aspirin 81 MG tablet 81 mg PO DAILY@0800 Qty: 30 0RF amlodipine 5 mg tablet 5 mg PO DAILY Referrals / Follow Up: Marciano Anaya DO [Primary Care Provider] - In 1 Week Disposition Disposition (needs filled in before D/C Order can be placed): Home, Self Care 07/12/25 [address] [facility] FRANCIS CC: FAUSTO Hernandez; FAUSTO Luna; Dr. Pieter Hu DO; Dr. Bro Johnson DO; Dr. Marciano Anaya DO; Dr. Dakota Delarosa MD; CHENTE Cook; Cuauhtemoc Mccallum DO ~ Signed [facility]09-02-2025 [facility] Records Department [address] [place] [address] Discharge Summary 07/12/25 1249 MR#: [id number] Acct: [id number] Name: BETSY LEE Rep #: [id number] : 1945 79 From: Marciano Castellanos DO PCP: Dr. Marciano Anaya DO Status:DIS IN Location: [place] [address] Providers Date of Admission: 07/10/25 Date of Discharge: 07/12/25 Primary Care Physician: Dr. Marciano Anaya DO Consultations 07/10/25 04:08 Consult: Gastroenterology Routine Consulting Provider: [facility] Reason for Consult: Suspected UGIB after DOAC. EMERGENT Consult: No MD Notified: Yes Date Notified: 07/10/25 Time Notified: 06:45 Method of Notification: Text Reason For Visit: AE CHF, AFIB; WITH RVR AND SUSPECTED GIB ON DOAC Diagnosis Discharge Diagnosis (1) Upper GI bleed: Status: Inactive Code(s): K92.2 - Gastrointestinal hemorrhage, unspecified Plan 1. Acute upper GI bleed secondary to gastric ulcers with hemorrhage exacerbated by use of Eliquis and aspirin-patient will remain off Eliquis and aspirin for now, she is receiving a PPI, hemoglobin appears to be stable at this time, CBC will be rechecked tomorrow #2 atrial fibrillation with RVR-patient remains on rate control medications at this time, her rate appears to be under control at the time of this dictation #3 hyperlipidemia-patient is on atorvastatin 40 mg daily #4 hypothyroidism-patient is on Synthroid #5 essential hypertension-I have elected to hold the patient's amlodipine at this time, she will remain on metoprolol and losartan as well as furosemide. #6 chronic depression-patient is on Effexor XR #7 class III obesity-complicates care, management, recovery, and prognosis #8 rheumatoid arthritis-patient will remain off prednisone at this time, Azulfidine was restarted, she will remain off methotrexate for now Heart failure was ruled out Total clinical time spent by myself addressing patient's medical issues, reviewing all of her data, and collaborating with patient's care team: 35 minutes Medications at Discharge Home Medications albuterol sulfate 90 mcg/actuation aerosol inhaler (ProAir HFA) 1 - 2 puff inhalation Q6H PRN PRN Shortness Of Breath 03/15/15 methotrexate sodium 2.5 mg tablet 20 mg PO MO Rheumatoid arthritis 03/15/15 folic acid 1 mg tablet 1 mg PO DAILY@0800 supplement #0 TABLETS 03/29/15 losartan 50 mg tablet 50 mg PO DAILY #30 TABLETS 03/29/15 prednisone 10 mg tablet 10 mg PO PRN PRN arthritis flare up 07/07/19 venlafaxine 150 mg capsule,extended release 24 hr 150 mg PO DAILY depression/anxiety 07/07/19 vitamins A,C,R-dhpd-ygivjk 2,148 mcg-113 mg-45 mg-17.4 mg tablet 1 tab PO DAILY EYE HEALTH 07/07/19 magnesium oxide 400 mg PO DAILY SUPPLEMENT 09/19/20 levothyroxine 100 mcg tablet 100 mcg PO DAILY throid 07/16/23 meclizine 12.5 mg tablet 12.5 mg PO DAILY 07/16/23 oxycodone-acetaminophen 10 mg-325 mg tablet 1 tab PO Q8H PRN pain 07/16/23 apixaban 5 mg tablet (Eliquis) 5 mg PO BID blood thinner 07/09/25 Held on 07/14/25. Instructions: Resume on 07/19/25. atorvastatin 40 mg tablet 40 mg PO DAILY cholesterol 07/09/25 amlodipine 5 mg tablet 5 mg PO DAILY blood pressure 07/12/25 budesonide-formoterol HFA 80 mcg-4.5 mcg/actuation aerosol inhaler (Symbicort) 1 puff inhalation Q12H 07/12/25 nystatin 100,000 unit/gram topical powder 1 applic topical BID #15 grams 07/12/25 pantoprazole 40 mg tablet,delayed release (Protonix) 40 mg PO BID GI #60 tabs 07/12/25 metoprolol succinate 50 mg tablet,extended release 24 hr 100 mg (2 x 50 mg) PO DAILY #60 tabs 07/14/25 Hospital Course Operations None Procedures EGD Summary of Care Provided Minutes Spent on Discharge: 31 Hospital Course: This 79-year-old white female seen in the emergency room at [facility] with complaints of dyspnea and melanotic stools. She had been diagnosed recently with atrial fibrillation and placed on Eliquis and Lasix. Patient complained of epigastric pain as well as nausea and saw melanotic stools 24 hours ago. Workup in the emergency room revealed her white blood cell count to be 11.4, hemoglobin was 8.9, chemistry profile showed a elevated BUN. Troponin was slightly elevated at 20, beta natruretic peptide was 2359. Checks x-ray showed no acute disease and no infiltrates. Patient's pulse ox was 95 on room air. Patient was admitted to PCU, she was transfused 2 units of packed red blood cells, follow-up hemoglobin the next day was 8.1. She was seen in consultation by gastroenterology who performed an EGD which showed nonbleeding gastric ulcers. On 07/12/2025, patient was seen and examined: On examination she appeared in good health and spirits, she does not appear to be in any distress. Vital signs as documented. Skin warm and dry and without overt rashes. Neck without JVD, thyroid appears normal (more content not included)...[facility]09-01-2025 Progress note Author Marciano Castellanos [facility] Note Date/Time July 11, 2025 4:00pm [facility] Medical Records Department [address] [place] [address] Progress Note - Hospitalist 07/11/25 1549 MR#: [id number] Acct: [id number] Name: BETSY LEE Rep #:[id number] : 1945 79 From: Marciano Castellanos DO PCP: Dr. Marciano Anaya, DO Status:ADM IN Location: [place] [address] Reason for Visit Chief Complaint: SOB and Fatigue. Subjective Subjective Patient was seen and examined today, she underwent an EGD today which showed thepresence of gastric ulcers. Patient's hemoglobin today was 9.6. Objective Data Objective Data Vital Signs: Vital Signs Temp Pulse Resp BP Pulse Ox O2 Del Method 97.1 F L 95 12 99/72 94 Room Air 07/11/25 12:07/11/25 12:07/11/25 12:07/11/25 12:07/11/25 12:07/11/25 13:15 Oxygen Delivery Method Room Air Weight: 113.7 kg Body Mass Index (BMI) 41.7 Intake & Output: Intake and Output for Last 24 Hours 0807/10/25 07/11/25 23:59 23:59 23:59 Intake Total 0 / 0 1519.67 / 1519.67 151.67 / 151.67 Output Total 1075 / 1075 1200 / 1200 Balance 0 / 0 444.67 / 444.67 -1048.33 / -1048.33 Lab / Micro Data 07/11/25 05:25 07/11/25 05:25 Labs: Laboratory Results - last 24 hr 07/09/25 22:31: Crossmatch See Detail 07/11/25 05:25: WBC 16.8 H, RBC 3.14 L, Hgb 9.6 L, Hct 29.4 L, MCV 93.6 D, MCH 30.6, MCHC 32.7, RDW Std Deviation 58.3 H, RDW Coeff of Espinoza 17.7 H, Plt Count 196, MPV 11.0, PT 16.9 H, INR 1.4, APTT 31.6, Sodium 140, Potassium 3.9, Chloride 105, Carbon Dioxide 21.2, Anion Gap 14, BUN 41 H, Creatinine 1.00, Estim Creat Clear Calc 57.38, Est GFR (MDRD) Non-Af 57 L, BUN/Creatinine Ratio 40.6 H, Glucose 128 H, Calcium 9.0 Micro: Microbiology 07/09/25 22:31 Stool Stool Occult Blood (FRANSICO) - Final Occult Blood Positive Physical Exam Const alert, oriented x3 and no apparent distress Constitutional Narrative: Patient has class III obesity General Appearance: cooperative, well kempt and well developed Orientation / Consciousness: awake, oriented to person, oriented to place and oriented to time HEENT normocephalic, head/scalp atraumatic and moist oral mucous membranes Eyes PERRL, EOMs intact bilaterally and conjunctivae normal Neck supple, no JVD, thyroid normal and no carotid bruits General: trachea midline Resp normal respiratory effort, no retractions, no use of accessory muscles and clearto auscultation bilaterally Auscultation: Negative for rales, rhonchi or wheezes Cardio S1 normal heart sound, S2 normal heart sound, no murmurs, no rub and no gallops Cardio Narrative: Heart rate and rhythm is irregular GI normal to inspection, nondistended, normoactive bowel sounds, soft to palpation,non-tender and non-distended Extremity no clubbing, cyanosis or edema Skin no rashes or lesions noted General Skin Exam: no breakdown Neuro oriented x3, CN's II-XII intact bilaterally, no focal motor deficits and no sensory deficits noted Sensorium / Orientation: awake and alert Speech: speech normal Psych affect normal Assessment & Plan Assessment/Plan (1) Upper GI bleed: PLAN: Plan 1. Acute upper GI bleed secondary to gastric ulcers with hemorrhage exacerbatedby use of Eliquis and aspirin-patient will remain off Eliquis and aspirin for now, she is receiving a PPI, hemoglobin appears to be stable at this time, CBC will be rechecked tomorrow #2 atrial fibrillation with RVR-patient remains on rate control medications at this time, her rate appears to be under control at the time of this dictation #3 hyperlipidemia-patient is on atorvastatin 40 mg daily #4 hypothyroidism-patient is on Synthroid #5 essential hypertension-I have elected to hold the patient's amlodipine at this time, she will remain on metoprolol and losartan as well as furosemide. #6 chronic depression-patient is on Effexor XR #7 class III obesity-complicates care, management, recovery, and prognosis #8 rheumatoid arthritis-patient will remain off prednisone at this time, Azulfidine was restarted, she will remain off methotrexate for now Total clinical time spent by myself addressing patient's medical issues, reviewing all of her data, and collaborating with patient's care team: 35 minutes Charges/Coding Visit Charges Inpatient E&M: 70406 Subs Hosp L2 07/11/25 1600 <Electronically signed by Marciano Castellanos DO> Cosigner Signature (if applicable): CC: ~ Signed [facility] Work Phone: 1(302) 552-372009-01-2025 Progress note [facility] Medical Records Department [address] [place] [address] Progress Note - Hospitalist 07/11/25 1064 MR#: [id number] Acct: [id number] Name: BETSY LEE Geovany Rep #:[id number] : 1945 79 From: Marciano Castellanos DO PCP: Dr. Marciano Anaya, Status:ADM IN Location: [place] [address] Reason for Visit Chief Complaint: SOB and Fatigue. Subjective Subjective Patient was seen and examined today, she underwent an EGD today which showed thepresence of gastriculcers. Patient's hemoglobin today was 9.6. Objective Data Objective Data Vital Signs: Vital Signs Temp Pulse Resp BP Pulse Ox O2 Del Method 97.1 F L 95 12 99/72 94 Room Air 07/11/25 12:17 07/11/25 12:17 07/11/25 12:17 07/11/25 12:17 07/11/25 12:17 07/11/25 13:15 Oxygen Delivery Method Room Air Weight: 113.7 kg Body Mass Index (BMI) 41.7 Intake & Output: Intake and Output for Last 24 Hours 07/09/25 07/10/25 07/11/25 23:59 23:59 23:59 Intake Total 0 / 0 1519.67 / 1519.67 151.67 / 151.67 Output Total 1075 / 1075 1200 / 1200 Balance 0 / 0 444.67 / 444.67 -1048.33 / -1048.33 Lab / Micro Data 07/11/25 05:25 07/11/25 05:25 Labs: Laboratory Results - last 24 hr 07/09/25 22:31: Crossmatch See Detail 07/11/25 05:25: WBC 16.8 H, RBC 3.14 L, Hgb 9.6 L, Hct 29.4 L, MCV 93.6 D, MCH 30.6, MCHC 32.7, RDWStd Deviation 58.3 H, RDW Coeff of Espinzoa 17.7 H, Plt Count 196, MPV 11.0, PT 16.9 H, INR 1.4, APTT 31.6, Sodium 140, Potassium 3.9, Chloride 105, Carbon Dioxide 21.2, Anion Gap 14, BUN 41 H, Creatinine1.00, Estim Creat Clear Calc 57.38, Est GFR (MDRD) Non-Af 57 L, BUN/Creatinine Ratio 40.6 H, Glucose 128 H, Calcium 9.0 Micro: Microbiology 07/09/25 22:31 Stool Stool Occult Blood (FRANSICO) - Final Occult Blood Positive Physical Exam Const alert, oriented x3 and no apparent distress Constitutional Narrative: Patient has class III obesity General Appearance: cooperative, well kempt and well developed Orientation / Consciousness: awake, oriented to person, oriented to place and oriented to time HEENT normocephalic, head/scalp atraumatic and moist oral mucous membranes Eyes PERRL, EOMs intact bilaterally and conjunctivae normal Neck supple, no JVD, thyroid normal and no carotid bruits General: trachea midline Resp normal respiratory effort, no retractions, no use of accessory muscles and clearto auscultation bilaterally Auscultation: Negative for rales, rhonchi or wheezes Cardio S1 normal heart sound, S2 normal heart sound, no murmurs, no rub and no gallops Cardio Narrative: Heart rate and rhythm is irregular GI normal to inspection, nondistended, normoactive bowel sounds, soft to palpation,non-tender and non-distended Extremity no clubbing, cyanosis or edema Skin no rashes or lesions noted General Skin Exam: no breakdown Neuro oriented x3, CN's II-XII intact bilaterally, no focal motor deficits and no sensory deficits noted Sensorium / Orientation: awake and alert Speech: speech normal Psych affect normal Assessment & Plan Assessment/Plan (1) Upper GI bleed: PLAN: Plan 1. Acute upper GI bleed secondary to gastric ulcers with hemorrhage exacerbatedby use of Eliquis and aspirin-patient will remain off Eliquis and aspirin for now, she is receiving a PPI, hemoglobin appears to be stable at this time, CBC will be rechecked tomorrow #2 atrial fibrillation with RVR-patient remains on rate control medications at this time, her rate appears to be under control at the time of this dictation #3 hyperlipidemia-patient is on atorvastatin 40 mg daily #4 hypothyroidism-patient is on Synthroid #5 essential hypertension-I have elected to hold the patient's amlodipine at this time, she will remain on metoprolol and losartan as well as furosemide. #6 chronic depression-patient is on Effexor XR #7 class III obesity-complicates care, management, recovery, and prognosis #8 rheumatoid arthritis-patient will remain off prednisone at this time, Azulfidine was restarted, she will remain off methotrexate for now Total clinical time spent by myself addressing patient's medical issues, reviewing all of her data,and collaborating with patient's care team: 35 minutes Charges/Coding Visit Charges Inpatient E&M: 84072 Subs Hosp L2 07/11/25 1600 Cosigner Signature (if applicable): CC: ~ Signed [facility]09-01-2025 Consult note Author Lai Burroughs [facility] Note Date/Time July 11, 2025 12:18pm [facility] Medical Records Department [address] [place] [address] Anesthesia Postop Eval II 07/11/25 1217 MR#: [id number] Acct: [id number] Name: BETSY LEE Rep #:[id number] : 1945 79 From: Lai Neely PCP: Dr. Marciano Anaya, DO Status:ADM IN Y Race: C Location: [address] Anesthesia Postop Eval I Sum Postop Eval Completion status Anesthesia document: Postop Eval 1 completed: Yes Anesthesia Postop Eval I Summary Anesthesia Postop Eval I Summary: Anesthesia Postop Eval I: Assessment Summary Airway patent Yes 07/11/25 12:17 Spontaneous unlabored Yes 07/11/25 12:17 respirations Mental status Awake,Calm 07/11/25 12:17 nausea No 07/11/25 12:17 Vomiting No 07/11/25 12:17 Anesthesia Postop Eval I: Fluid Summary Crystalloid volume administer 300 07/11/25 12:17 (ml) Colloids volume administered ( ml) Blood Product volume administered (ml) Total IV fluid infused 300 07/11/25 12:17 Anesthesia Postop Eval I: Summary Notes Anesthesia Complication No 07/11/25 12:17 Anesthesia Complication Comment: Post-operative progress note stable to PACU 07/11/25 12:17 Anesthesia: Postop Eval II Evaluation Mental status: Awake and Calm Pain Level: 0 nausea: No Vomiting: No Progress Note Post-operative progress note: meets discharge criteria Complications Anesthesia Complication: No 07/11/25 1218 <Electronically signed by Lai Burroughs MD> Date _ Lai Launius MD Cosigner Signature: Date CC: ~ Signed [facility] Work Phone: 1(933) 676-207409-01-2025 Consult note Author Lai Burroughs [facility] Note Date/Time July 11, 2025 12:17pm [facility] Medical Records Department [address] [facility] [place] [address] Anesthesia Postop Eval I 07/11/25 1216 MR#: [id number] Acct: [id number] Name: BETSY LEE Rep #:[id number] : 1945 79 From: Lai Neely PCP: Dr. Marciano Anaya, DO Status:ADM IN Y Race: C Location: [place] [address] Anesthesia: Postop Eval I Current Vital Signs Temperature: 97.1 F Pulse Rate: 95 Blood Pressure: 99/72 Respiratory Rate: 12 Pulse Ox: 94 Oxygen Delivery Method: Room Air Assessment Airway patent: Yes Spontaneous unlabored respirations: Yes Mental status: Awake and Calm nausea: No Vomiting: No Anesthesia Complication: No Fluid Hydration Crystalloid volume administer (ml): 300 Total IV fluid infused: 300 Progress Note Post-operative progress note: stable to PACU Anesthesia document: Postop Eval 1 completed: Yes 07/11/257 <Electronically signed by Lai Burroughs MD> Date _ Lai Delgado Signature: Date CC: ~ Signed [facility] Work Phone: 1(450) 784-824409-01-2025 Consult note Author Cuauhtemoc Mccallum [facility] Note Date/Time July 11, 2025 11:26am [facility] Medical Records Department [address] [place] [address] Consultation - GI 07/10/25 1351 MR#: [id number] Acct: [id number] Name: BETSY LEE Rep #:[id number] : 1945 79 From: Cuauhtemoc Mccallum DO PCP: Dr. Marciano Anaya, DO Status:ADM IN Location: [place] [address] HPI Consult Data Date of Consult: 07/11/25 HPI Narrative HPI Narrative: BETSY LEE, is a 79-year-old female presenting to the emergency department for dyspnea and melena. Patient has a past medical history of asthma/COPD reports stopped smoking years ago, CAD, obesity and recently diagnosed atrial fibrillation by her primary care doctor. She was just started on Eliquis about aweek ago. She reports on 07/01 she went to see her primary care doctor due to having chesttightness across the front of her chest and feeling fatigued. She was also experiencing shortness of breath at this time. An EKG was done which showed atrial fibrillation. She was also having lower extremity edema at that time andwas placed on Lasix as well as Eliquis. She also reports that she developed some epigastric abdominal pain and nausea followed by melanotic stool yesterday. On review last echo was September 2020 and showed an EF of 65%. She denies any fever, chills, cough, sore throat, chest pain, vomiting, dysuria or hematuria. [facility] Medical History Atrial fibrillation Squamous cell skin cancer Skin lesion of hand Acute kidney injury Acute respiratory failure with hypoxia Lactic acidosis Vision disturbance Chronic pain syndrome Acute blood loss anemia Anxiety and depression Asthma HLD (hyperlipidemia) Morbid obesity GI bleed Hyperkalemia Hypertension History of rheumatoid arthritis Home Medications ?Medication ?Instructions ?Recorded ?Last Taken ?Type albuterol sulfate 90 mcg/actuation 1 - 2 puff inhalati on Q6H PRN PRN 03/15/15 10/09/16 History aerosol inhaler (ProAir HFA) Shortness Of Breath hydrochlorothiazide 25 mg tablet 25 mg PO DAILY BP 04/2409/19/20 11:00 History methotrexate sodium 2.5 mg tablet 20 mg PO MO Rheumato id arthritis 03/15/15 09/18/20 History folic acid 1 mg tablet 1 mg PO DAILY@0800 #0 TABLET S 03/29/15 09/19/20 11:00 Rx losartan 50 mg tablet 50 mg PO DAILY #30 TABLETS 0 03/29/15 09/19/20 11:00 Rx prednisone 10 mg tablet 10 mg PO PRN PRN arthritis f lare up 07/07/19 3 Days Ago History ~09/16/20 sulfasalazine 500 mg tablet 1,000 mg PO BID arthritis 07/07/19 09/19/20 11:00 History venlafaxine 150 mg 150 mg PO DAILY depression/a nxiety 07/07/19 09/19/20 11:00 History capsule,extended release 24 hr vitamins A,C,A-nzgl-mrtliq 2,148 1 tab PO DAILY EYE HE ALTH 07/07/19 09/19/20 11:00 History mcg-113 mg-45 mg-17.4 mg tablet atorvastatin 20 mg tablet 20 mg PO DAILY CHOLESTEROL 1 11/19/19 09/19/20 11:00 History magnesium oxide 400 mg PO DAILY SUPPLEMENT 1 11/19/19 09/19/20 11:00 History aspirin 81 mg tablet,delayed 81 mg PO DAILY@0800 #30 t abs 09/20/20 Unknown Rx release levothyroxine 100 mcg tablet mcg PO 07/16/23 Unknown H istory meclizine 12.5 mg tablet mg PO 07/16/23 Unknown Histo ry oxycodone-acetaminophen 10 mg-325 tab PO 07/16/23 Unkn own History mg tablet amlodipine 5 mg tablet 5 mg PO DAILY 07/09/25 Unkno wn History apixaban 5 mg tablet (Eliquis) 5 mg PO BID 07/09/25 Un known History atorvastatin 40 mg tablet 40 mg PO DAILY cholesterol 0 07/09/25 Unknown History furosemide 40 mg tablet 40 mg PO DAILY 07/09/25 Unkn own History metoprolol succinate 50 mg 50 mg PO DAILY 07/09/25 Unk nown History tablet,extended release 24 hr Allergy/AdvReac Type Severity Reaction Status Date / Time adhesive Allergy Other Verified 07/09/25 22:26 amoxicillin trihydrate (From Allergy Unknown Verified 07/09/25 22:26 Augmentin) latex Allergy Unknown Verified 07/09/25 22:26 Penicillins Allergy Unknown Verified 07/09/25 22:26 potassium clavulanate (From Allergy Unknown Verified 07/09/25 22:26 Augmentin) tetracycline Allergy Unknown Verified 07/09/25 22:26 Family History Sister Hypertension Brother Heart disease Surgical History History of hand surgery History of reverse total replacement of left shoulder joint History of tonsillectomy History of appendectomy History of tubal ligation History of knee replacement History of hip replacement History of back surgery Status post reverse total replacement of right shoulder Social History Smoking Status: Former smoker alcohol intake: current substance use type: does not use ROS Constitutional Constitutional: Denies fatigue, fever(s), poor appetite, weight gain or weight loss Gastrointestinal Gastrointestinal: Denies belching, bloating, change in bowel habits, change in stool character, chewing difficulty, coffee ground emesis, constipation, cramping, diarrhea, dyspepsia, dysphagia, early satiety, excessive flatus, fecalincontinence, heartburn, hematemesis, hematochezia, hemorrhoids, loose stools, melena, nausea, odynophagia, rectal bleeding, tenesmus, vomiting or weight changes Physical Exam Const alert, oriented x3, no apparent distress and healthy appearing General Appearance: cooperative GI normal to inspection, nondistended, normoactive bowel sounds, soft to palpation,non-tender and non-distended Percussion: normal to percussion Rectal Exam: deferred Lab / Micro Data 07/11/25 05:25 07/11/25 05:25 Labs: Laboratory Results - last 24 hr 07/09/25 22:31: WBC 11.4 H, RBC 2.82 L, Hgb 8.9 L, Hct 28.3 L, MCV 100.4 H, MCH 31.6, MCHC 31.4 L, RDW Std Deviation 55.7 H, RDW Coeff of Espinoza 15.5 H, Plt Count 274, MPV 11.1, Immature Gran % (Auto) 0.700, Neut % (Auto) 78.3 H, Lymph % (Auto) 17.2 L, Hinds % (Auto) 2.7, Eos % (Auto) 0.2, Baso % (Auto) 0.9, Absolute Neuts (auto) 8.9 H, Absolute Lymphs (auto) 1.96, Nucleated RBC % 0.2, Sodium 138, Potassium 4.9, Chloride 102, Carbon Dioxide 18.9 L, Anion Gap 18 H, BUN 37 H, Creatinine 1.11, Estim Creat Clear Calc 52.29, Est GFR (MDRD) Non-Af 51 L, BUN/Creatinine Ratio 33.1 H, Glucose 195 H, Hemoglobin A1c 5.5, Calcium 9.0, Magnesium 1.9, Total Bilirubin 0.31, AST 14, ALT 13, Alkaline Phosphatase 100, Troponin T High Sens 20 H D, NT pro BNP II 2359 H, Total Protein 6.0, Albumin 3.5, Globulin 2.5, Albumin/Globulin Ratio 1.4, Lipase 31, Blood Type A POSITIVE,Antibody Screen NEGATIVE 07/10/25 00:13: Urine Color Yellow, Urine Clarity Clear, Urine pH 6.0, Ur Specific [place] 1.010, Urine Protein 30 H, Urine Glucose (UA) Normal, Urine Ketones Negative, Urine Occult Blood Negative, Urine Nitrite Negative, Urine Bilirubin Negative, Urine Urobilinogen Normal, Ur Leukocyte Esterase Negative, Urine RBC 0 SEEN, Urine WBC 0 SEEN, Ur Squamous Epith Cells 0 SEEN, Urine Bacteria 0 SEEN, Urine Mucus 0 SEEN 07/10/25 00:31: Iron 26 L, TIBC 196 L, Iron Saturation 13.3, Unsaturated IBC 170L, Ferritin 156, Troponin T Hi Sens 2 Hr 14, TSH 2.680 07/10/25 05:46: WBC 12.6 H, RBC 2.57 L, Hgb 8.1 L, Hct 25.4 L, MCV 98.8, MCH 31.5, MCHC 31.9 L, RDW Std Deviation 54.4 H, RDW Coeff of Espinoza 15.6 H, Plt Count 229, MPV 11.5, Immature Gran % (Auto) 0.600, Neut % (Auto) 74.8 H, Lymph % (Auto) 19.2, Hinds % (Auto) 4.8, Eos % (Auto) 0.1, Baso % (Auto) 0.5, Absolute Neuts (auto) 9.4 H, Absolute Lymphs (auto) 2.42, Nucleated RBC % 0.2, Sodium 139, Potassium 4.8, Chloride 105, Carbon Dioxide 21.9, Anion Gap 12, BUN 44 H, Creatinine 0.91, Estim Creat Clear Calc 62.58, Est GFR (MDRD) Non-Af 60, BUN/Creatinine Ratio 49.0 H, Glucose 111 H, Calcium 8.9, Phosphorus 2.4 L, Total Bilirubin 0.25, AST 14, ALT 10, Alkaline Phosphatase 91, Total Protein 5.9, Albumin 3.3 L, Globulin 2.6, Albumin/Globulin Ratio 1.3, Vitamin B12 256, Serum Folate 19.50 07/10/25 12:00: WBC 15.5 H, RBC 2.32 L, Hgb 7.4 L, Hct 23.2 L, MCV 100.0 H, MCH 31.9, MCHC 31.9 L, RDW Std Deviation 55.1 H, RDW Coeff of Espinoza 15.9 H, Plt Count 227, MPV 10.8 Micro: Microbiology 07/09/25 22:31 Stool Stool Occult Blood (FRANSICO) - Final Occult Blood Positive Imaging Radiology Impression Abdomen/Pelvis CT 07/09/25 22:45 IMPRESSION: Interval appearance of mild pericardial effusion. Interval appearance of mild bilateral pleural effusions. Associated passive atelectatic airspace disease of the lower lobes. Hyperdense material is noted in the dependent aspect of the gastric body. Findings may represent acute hemorrhagic products. No precontrast images are provided to evaluate for active bleeding. Obtaining delayed phase images may increase the sensitivity of the exam to evaluate the significance of hyperdense material in the gastric lumen. Scattered right renal simple cysts are noted with the largest measuring 1.5 cm. Fat containing umbilical hernia without incarceration. Uncomplicated colonic diverticulosis. Bilateral hip prostheses are noted. Moderate diffuse spondylosis. Unremarkable low lumbar fusion metallic hardware. Unchanged bilateral vascular calcifications in the kidneys. Chronic posterior soft tissue thickening overlying the sacrococcygeal junction, unchanged. Reading [facility] Chest [facility]-Ray 07/09/25 23:19 IMPRESSION: NO ACUTE FINDINGS. Reading [facility] Assessment & Plan Assessment/Plan (1) SCHULTZ (dyspnea on exertion): (2) Fatigue: QUALIFIERS: Fatigue type: unspecified Qualified Code(s): R53.83 -Other fatigue (3) Upper GI bleed: (4) Melanotic stools: PLAN: 79-year-old female with new onset AFib complicated by acute gastrointestinal bleeding likely secondary to Eliquis.? * Gastrointestinal Bleed:?The patient's melena, anemia, and orthostatic hypotension are highly concerning for an upper GI bleed. The new onset of symptoms in close temporal proximity to starting an anticoagulant (Eliquis) strongly suggests the medication is a contributing factor, though it is likely potentiating bleeding from an underlying lesion. Given her age and anemia, there is a higher risk for bleeding on anticoagulation. * Anemia:?The significant drop in hemoglobin is consistent with acute blood loss from the GI tract. * Atrial Fibrillation:?The patient's AFib is currently managed with Eliquis for stroke prevention. The current bleeding event necessitates careful consideration of the risks of continued anticoagulation versus the risks of thromboembolic stroke. Her CHADS-VASc score is high. Plan * Agree with discontinuing Eliquis immediately. * Agree with PPI drip * ?Recommend esophagogastroduodenoscopy (EGD) to identify the bleeding source (e.g., peptic ulcer, angioectasia) and perform endoscopic hemostasis. * Order type and crossmatch?for blood transfusion. Her hemoglobin is 7.4 so we will transfuse her 2 units of packed red blood cells with 20 mg of IV Lasix in between to achieve a target hemoglobin of 7-9 g/dL, with a higher target for patients with significant cardiovascular disease. * Hold off on restarting anticoagulation?until hemostasis is confirmed and the underlying cause of the bleeding is addressed. Charges/Coding Visit Charges Inpatient E&M: 85450 Init Hosp L3 07/11/25 1126 <Electronically signed by Cuauhtemoc Mccallum DO> Cosigner Signature (if applicable): CC: Dr. Marciano Anaya DO~ Signed [facility] Work Phone: 1(887) 313-476109-01-2025 Consult note Author Lai Burroughs [facility] Note Date/Time July 11, 2025 10:56am [facility] Medical Records Department [address] [place] [address] [place] [address] Pre-Anesthesia Evaluation 07/11/25 1055 MR#: [id number] Acct: [id number] Name: BETSY LEE Rep #:[id number] : 1945 79 From: Lai Neely PCP: Dr. Marciano Anaya, DO Status:ADM IN Y Race: C Location: [place] [address] ASA Classification* ASA Classification ASA Classification: 3 and E Assessment & Plan Anesthesia* Anesthesia Assessment Anesthesia Assessment: Discussed sedation and/or anesthesia options, risks, benefits, and alternatives with patient/parents/legal guardian/POA. Questions invited. The patient/parents/legal guardian/POA seems to understand and agrees to proceedwith anesthesia plan. Reviewed the physical assessment, medical history, allergy history and patient home medications list prior to surgery/procedure/anesthetic and documented any changes. Performed airway and anesthesia risk assessments. Anesthesia Type Anesthesia Type: MAC History Source History Obtained from:: Patient and Chart Anesthesia Focused Assessment* Temperature: 98.3 F Pulse Rate: 135 Blood Pressure: 125/70 Respiratory Rate: 18 Pulse Ox: 92 Oxygen Delivery Method: Room Air Airway Assessment Mouth opens: >3 cm Mallampati Score: III Teeth Condition: Dentures Neck Range of motion (ROM): Limited ROM Labs Anesthesia Preop lab: CBC WBC 16.8 K/mm3 (4.4-11.0) H 07/11/25 05:25 5 RBC 3.14 M/mm3 (4.2-5.4) L 07/11/25 05:25 07/11/25 Hgb 9.6 g/dL (12.0-15.0) L 07/11/25 05:25 07/11/25 Hct 29.4 % (37-47) L 07/11/25 05:25 07/11/25 Plt Count 196 K/mm3 (150-450) 07/11/25 05:25 07/11/25 CHEMISTRY Potassium 3.9 mmol/L (3.3-5.1) 07/11/25 05:25 07/11/25 Sodium 140 mmol/L (133-145) 07/11/25 05:25 07/11/25 Magnesium 1.9 mg/dL (1.5-2.2) 07/09/25 22:31 07/09/25 Phosphorus 2.4 mg/dL (2.7-4.5) L 07/10/25 05:46 07/10/25 BUN 41 mg/dL (4-19) H 07/11/25 05:25 07/11/25 Creatinine 1.00 mg/dL (0.70-1.20) 07/11/25 05:25 07/11/25 Glucose 128 mg/dL (70-99) H 07/11/25 05:25 07/11/25 POC Glucose 139 mg/dL (70-110) H 12/08/20 11:45 12/08/20 TSH 2.680 uIU/mL (0.300-4.200) 07/10/25 00:31 06/12 12/04 COAG PT 16.9 SECONDS (11.7-14.9) H 07/11/25 05:25 12/04 Pre-Assessment Diagnosis/Proposed Procedure Planned Operative Procedure(s): EGD for low hemoglobin Anesthesia History Anesthesia History - events director: Anesthesia History - events director Hx Hospitalization No 12/06/20 17:41 Any Problems With Anesthesia Cholinesterase deficiency You/Your Family Experience fever (hyperthermia) with Relationship Recent Exposure to Contagious Disease Does patient have nerve stimulator Patient instructed to have device shut off --Does patient have Pacemaker or ICD? When Was Last Pacemaker Check QUESTION #4 FULL TEXT: You/Your Family Experience fever (hyperthermia) with Anesthesia Last Oral Intake Last Oral intake: Last Oral Intake NPO since Meds taken in AM with sips of water? Meds patient instructed to take am of surgery PONV PONV - events director: PONV - events director Female HX of Motion Sickness HX of N/V After Surgery Non-Smoker Duration of Surgery greater than 60 minutes Number of Risk Factors PONV Score Height & Weight Height & Weight: Anesthesia: Height & Weight Height 5 ft 5 in 07/10/25 10:17 Weight: 113.7 kg 07/11/25 05:38 Body Mass Index (BMI) 41.7 07/11/25 05:38 Respiratory Assessment Respiratory Assessment - events director: Respiratory Tract Infection Hx - events director Hx Respiratory Tract Infection STOP Sleep Apnea STOP Sleep Apnea - events director: STOP Sleep Apnea - events director Hx Hypertension Yes 07/10/25 08:32 Hx Sleep Apnea Yes 07/10/25 03:40 CPAP No 07/10/25 03:40 BIPAP No 07/10/25 03:40 Do you snore loudly (louder than talking or can be heard Do you often feel tired/ fatigued/ sleepy during daytime? Has anyone observed you stop breathing during sleep? STOP Results Positive 07/10/25 03:40 QUESTION #5 FULL TEXT : Do you snore loudly (louder than talking or can be heard through closed doors)? Tobacco Use History Tobacco Use History - events director: Tobacco Use History - events director Tobacco Use Smoking Status Former smoker 07/10/25 03:40 Hx Tobacco Use No 07/10/25 03:40 Years Smoking Packs Smoked per Day Smoking Cessation Date was No - quit smoking greater 07/10/25 03:40 within the last 15 years than 15 years ago Hx Smoking Cessation Date 03/24/90 07/10/25 03:40 Hx Smoking Cessation Yes 07/10/25 03:40 Counseling Hematologic Medial History Hematologic Hx - events director: Hematologic Medical Hx - marriage and family counselor Hx of Blood Transfusion Yes 07/10/25 03:40 Hx of Transfusion in last 3 No 07/10/25 03:40 Months Date of Last Transfusion (if within last 3 months) Ever experience any problems No 07/10/25 03:40 with transfusion(s)? Specify any problems Hx of Preganancy in last 3 No 07/10/25 03:40 Months Nurse Filling Out Transfusion TBADGER 07/10/25 03:40 & Questions: Date: 07/10/25 07/10/25 03:40 Time: 03:49 07/10/25 03:40 Patient unable to answer at this time (ie. confused, unrespo /Reproduction History /Reproductive History - events director: /Reproductive Hx- events director Hx Now Gestational Age (in weeks): EDC: Hx Hx Para Hx Section SAB Active Medications Active Medications: Current Medications Generic Name Dose Route Start Last Admin Trade Name Freq PRN Reason Stop Dose Admin Acetaminophen 650 mg 07/10/25 04:08 Acetaminophen 650 Mg Suppository RC Q6H PRN PRN Pain 1-5/10 or Fever Albuterol Sulfate 2.5 mg 07/10/25 04:08 Albuterol 2.5 Mg/3 Ml Vial.Neb. INHALATION Q4H PRN PRN Shortness Of Breath Furosemide 40 mg 07/10/25 04:08 07/10/25 04:41 Furosemide 40 Mg/4 Ml Vial IV 40 mg DAILY MARIE Administration Protocol Sodium Chloride 250 mls @ 15 mls/hr 07/10/25 04:04 IV .[id number] PRN Saline Flush Sodium Chloride 250 mls @ 15 mls/hr 07/10/25 04:04 IV .[id number] PRN Additional IVPB Infusion Pantoprazole Sodium 80 mg/ 100 mls @ 10 mls/hr 07/10/25 04:08 07/11/25 02:10 Sodium Chloride CONT INF 10 mls/hr Q10H MARIE Administration Morphine Sulfate 2 mg 07/10/25 04:08 07/11/25 02:15 Morphine 2 Mg/Ml Syringe IV 2 mg Q4H PRN PRN Administration Pain Score 6-10 Nystatin 1 applic 07/10/25 22:00 07/11/25 10:18 Nystatin Powder 15gm Bottle TOPICAL Not Given BID [facility] Protocol Ondansetron HCl 4 mg 07/10/25 04:08 07/10/25 10:11 Ondansetron 4 Mg/2 Ml Vial IV 4 mg Q4H PRN PRN Administration NAUSEA/VOMITING Sodium Chloride 10 - 40 ml 07/10/25 04:04 07/11/25 06:54 0.9% Saline Lock 10 Ml Syringe IV 10 ml UD PRN Administration SALINE FLUSH PFSH Medical History Atrial fibrillation Squamous cell skin cancer Skin lesion of hand Acute kidney injury Acute respiratory failure with hypoxia Lactic acidosis Vision disturbance Chronic pain syndrome Acute blood loss anemia Anxiety and depression Asthma HLD (hyperlipidemia) Morbid obesity GI bleed Hyperkalemia Hypertension History of rheumatoid arthritis Home Medications ?Medication ?Instructions ?Recorded ?Last Taken ?Type albuterol sulfate 90 mcg/actuation 1 - 2 puff inhalati on Q6H PRN PRN 03/15/15 10/09/16 History aerosol inhaler (ProAir HFA) Shortness Of Breath hydrochlorothiazide 25 mg tablet 25 mg PO DAILY BP 04/2409/19/20 11:00 History methotrexate sodium 2.5 mg tablet 20 mg PO MO Rheumato id arthritis 03/15/15 09/18/20 History folic acid 1 mg tablet 1 mg PO DAILY@0800 #0 TABLET S 03/29/15 09/19/20 11:00 Rx losartan 50 mg tablet 50 mg PO DAILY #30 TABLETS 0 03/29/15 09/19/20 11:00 Rx prednisone 10 mg tablet 10 mg PO PRN PRN arthritis f lare up 07/07/19 3 Days Ago History ~09/16/20 sulfasalazine 500 mg tablet 1,000 mg PO BID arthritis 07/07/19 09/19/20 11:00 History venlafaxine 150 mg 150 mg PO DAILY depression/a nxiety 07/07/19 09/19/20 11:00 History capsule,extended release 24 hr vitamins A,C,R-qgcd-jdilep 2,148 1 tab PO DAILY EYE HE ALTH 07/07/19 09/19/20 11:00 History mcg-113 mg-45 mg-17.4 mg tablet atorvastatin 20 mg tablet 20 mg PO DAILY CHOLESTEROL 1 11/19/19 09/19/20 11:00 History magnesium oxide 400 mg PO DAILY SUPPLEMENT 1 11/19/19 09/19/20 11:00 History aspirin 81 mg tablet,delayed 81 mg PO DAILY@0800 #30 t abs 09/20/20 Unknown Rx release levothyroxine 100 mcg tablet mcg PO 07/16/23 Unknown H istory meclizine 12.5 mg tablet mg PO 07/16/23 Unknown Histo ry oxycodone-acetaminophen 10 mg-325 tab PO 07/16/23 Unkn own History mg tablet amlodipine 5 mg tablet 5 mg PO DAILY 07/09/25 Unkno wn History apixaban 5 mg tablet (Eliquis) 5 mg PO BID 07/09/25 Un known History atorvastatin 40 mg tablet 40 mg PO DAILY cholesterol 0 07/09/25 Unknown History furosemide 40 mg tablet 40 mg PO DAILY 07/09/25 Unkn own History metoprolol succinate 50 mg 50 mg PO DAILY 07/09/25 Unk nown History tablet,extended release 24 hr Allergy/AdvReac Type Severity Reaction Status Date / Time adhesive Allergy Other Verified 07/09/25 22:26 amoxicillin trihydrate (From Allergy Unknown Verified 07/09/25 22:26 Augmentin) latex Allergy Unknown Verified 07/09/25 22:26 Penicillins Allergy Unknown Verified 07/09/25 22:26 potassium clavulanate (From Allergy Unknown Verified 07/09/25 22:26 Augmentin) tetracycline Allergy Unknown Verified 07/09/25 22:26 Family History Sister Hypertension Brother Heart disease Surgical History History of hand surgery History of reverse total replacement of left shoulder joint History of tonsillectomy History of appendectomy History of tubal ligation History of knee replacement History of hip replacement History of back surgery Status post reverse total replacement of right shoulder Social History Smoking Status: Former smoker alcohol intake: current substance use type: does not use Review of Systems (Anesthesia) ROS Narrative System reviewed and no additional complaints, except as documented. 07/11/25 1056 <Electronically signed by Lai Burroughs MD> Date _ Lai Burroughs [facility] Signature: Date CC: ~ Signed [facility] Work Phone: 1(497) 362-694809-01-2025 Procedure note [facility] Medical Records Department [address] [place] [address] EGD Report MR#: [id number] Acct: [id number] Name: JESUSBETSY Armenta Rep #:[id number] : 1945 79 From: Cuauhtemoc Friend PCP: Dr. Marciano Anaya DO Status:ADM IN Patient Name: Betsy Jesus Procedure Date: 07/11/2025 10:45 AM Date of : 1945 Age: 79 Procedure: Upper GI endoscopy Indications: Melena Providers: Cuauhtemoc Mccallum DO Medicines: Monitored Anesthesia Care Patient Profile: This is a 79 year old female. Refer to note in patient chart for documentation of history and physical. Patient has symptoms. Complications: No immediate complications. Procedure: Pre-Anesthesia Assessment: - Prior to the procedure, a History and Physical was performed, and patient medications and allergies were reviewed. The patient is competent. The risks and benefits of the procedure and the sedation options and risks were discussed with the patient. All questions were answered and informed consent was obtained. Patient identification and proposed procedure were verified by the physician in the pre-procedure area. Mental Status Examination: alert and oriented. Airway Examination: normal oropharyngeal airway and neck mobility. Respiratory Examination: clear to auscultation. CV Examination: normal. Prophylactic Antibiotics: The patient does not require prophylactic antibiotics. Prior Anticoagulants: The patient has taken no anticoagulant or antiplatelet agents except for aspirin. ASA Grade Assessment: III - A patient with severe systemic disease. After reviewing the risks and benefits, the patient was deemed in satisfactory condition to undergo the procedure. The anesthesia plan was to use monitored anesthesia care (MAC). Immediately prior to administration of medications, the patient was re-assessed for adequacy to receive sedatives. The heart rate, respiratory rate, oxygen saturations, blood pressure, adequacy of pulmonary ventilation, and response to care were monitored throughout the procedure. The physical status of the patient was re-assessed after the procedure. After obtaining informed consent, the endoscope was passed under direct vision. Throughout the procedure, the patient's blood pressure, pulse, and oxygen saturations were monitored continuously. The Endoscope was introduced through the mouth, and advanced to the fourth part of the duodenum. Small bowel enteroscopy was deemed necessary. The upper GI endoscopy was accomplished without difficulty. The patient tolerated the procedure well. Scope In: 11:38:04 AM Scope Out: 11:48:16 AM Total Procedure Duration Time 0 hours 10 minutes 12 seconds Findings: The examined esophagus was normal. Four non-obstructing oozing cratered gastric ulcers of significant severity with a visible vessel were found in the gastric body and on the lesser curvature of the stomach. The largest lesion was 10 mm in largest dimension. There is no evidence of perforation. To stop active bleeding, two hemostatic clips were successfully placed. 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 There was no bleeding at the end of the procedure. Estimated blood loss was minimal. Two non-bleeding linear gastric ulcers with pigmented material were found on the greater curvature of the stomach. The largest lesion was 5 mm in largest dimension. Coagulation for destruction of remaining portion of lesion using argon plasma at 0.3 liters/minute and 30 mays was successful. Estimated blood loss was minimal. Coagulation for bleeding prevention using argon plasma at 0.8 liters/minute and 20 mays was successful. Estimated blood loss was minimal. No gross lesions were noted in the entire examined duodenum. Impression: - Normal esophagus. - Non-obstructing oozing gastric ulcers with a visible vessel. There is no evidence of perforation. Clips were placed. 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 - Non-bleeding gastric ulcers with pigmented material. Treated with argon plasma coagulation (APC). - No gross lesions in the entire examined duodenum. - No specimens collected. Recommendation: - [facility]. - Full liquid diet today. - Continue present medications. Cuauhtemoc Mccallum DO 07/11/2025 12:18:34 PM This report has been signed electronically. Number of Addenda: 0 Note Initiated On: 07/11/2025 10:45 AM 07/11/25 1219 Date _ Cuauhtemoc Mccallum DO Cosigner Signature: Date (if indicated) CC: Dr. Marciano Anaya DO; Cuauhtemoc Mccallum DO ~ Date Dictated: 07/11/25 1045 Date Transcribed: Air Hose Coupler: RF Signed [facility]09-01-2025 Procedure note [facility] Medical Records Department [address] [place] [address] Provation Physician Letter MR#: [id number] Acct: [id number] Name: BETSY LEE Rep #:[id number] : 1945 79 From: Cuauhtemoc Mccallum DO PCP: Dr. Marciano Anaya DO Status:ADM IN 07/11/2025 Marciano Anaya [address] [facility] [place] [address] Re : Upper GI endoscopy procedure for Betsy Jesus Dear Dr. Anaya This procedure was performed on Friday, July 11, 2025. My impressions and recommendations are as follows: Impressions : - Normal esophagus. - Non-obstructing oozing gastric ulcers with a visible vessel. There is no evidence of perforation. Clips were placed. 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 - Non-bleeding gastric ulcers with pigmented material. Treated with argon plasma coagulation (APC). - No gross lesions in the entire examined duodenum. - No specimens collected. Recommendations : - [facility]. - Full liquid diet today. - Continue present medications. My findings are described in the full procedure note, which is enclosed. If I can be of further assistance, please feel free to contact me at . Sincerely, Cuauhtemoc Mccallum DO 07/11/2025 12:18:34 PM This report has been signed electronically. 07/11/25 1219 Date _ Cuauhtemoc Mccallum DO Cosigner Signature: Date (if indicated) CC: FAUSTO Hernandez; FAUSTO Luna; Dr. Pieter Hu, DO; Dr. Bro Johnson DO; Dr. Marciano Anaya, DO; Dr. Marciano Castellanos DO; Dr. Dakota Delarosa MD; CHENTE Cook; Cuauhtemoc Mccallum DO ~ Date Dictated: 07/11/25 1045 Date Transcribed: Air Hose Coupler: RHYS Signed [facility]09-01-2025 Consult note [facility] Medical Records Department [address] [place] [address] Anesthesia Postop Eval II 07/11/251216 MR#: [id number] Acct: [id number] Name: JESUSBETSY A Rep #:[id number] : 1945 79 From: Lai Neely PCP: Dr. Marciano Anaya, DO Status:ADM IN Y Race: C Location: [place] [address] 4-1 Anesthesia Postop Eval I Sum Postop Eval Completion status Anesthesia document: Postop Eval 1 completed: Yes Anesthesia Postop Eval I Summary Anesthesia Postop Eval I Summary: Anesthesia Postop Eval I: Assessment Summary Airway patent Yes 07/11/25 12:17 Spontaneous unlabored Yes 07/11/25 12:17 respirations Mental status Awake,Calm 07/11/25 12:17 nausea No 07/11/25 12:17 Vomiting No 07/11/25 12:17 Anesthesia Postop Eval I: Fluid Summary Crystalloid volume administer 300 07/11/25 12:17 (ml) Colloids volume administered ( ml) Blood Product volume administered (ml) Total IV fluid infused 300 07/11/25 12:17 Anesthesia Postop Eval I: Summary Notes Anesthesia Complication No 07/11/25 12:17 Anesthesia Complication Comment: Post-operative progress note stable to PACU 07/11/25 12:17 Anesthesia: Postop Eval II Evaluation Mental status: Awake and Calm Pain Level: 0 nausea: No Vomiting: No Progress Note Post-operative progress note: meets discharge criteria Complications Anesthesia Complication: No 07/11/25 1218 > Date _ Lai Delgado Signature: Date CC: ~ Signed [facility]09-01-2025 Consult note [facility] Medical Records Department [address] [place] [address] Anesthesia Postop Eval I 07/11/25 1216 MR#: [id number] Acct: [id number] Name: BETSY LEE Rep #:[id number] : 1945 79 From: Lai Neely PCP: Dr. Marciano Anaya, DO Status:ADM IN Y Race: C Location: [place] [address] 4-1 Anesthesia: Postop Eval I Current Vital Signs Temperature: 97.1 F Pulse Rate: 95 Blood Pressure: 99/72 Respiratory Rate: 12 Pulse Ox: 94 Oxygen Delivery Method: Room Air Assessment Airway patent: Yes Spontaneous unlabored respirations: Yes Mental status: Awake and Calm nausea: No Vomiting: No Anesthesia Complication: No Fluid Hydration Crystalloid volume administer (ml): 300 Total IV fluid infused: 300 Progress Note Post-operative progress note: stable to PACU Anesthesia document: Postop Eval 1 completed: Yes 07/11/25 1217 > Date _ Lai Burroughs MD Cosigner Signature: Date CC: ~ Signed [facility]09-01-2025 Consult note [facility] Medical Records Department [address] [place] [address] Consultation - GI 07/10/25 1351 MR#: [id number] Acct: [id number] Name: BETSY LEE Rep #:[id number] : 1945 79 From: Cuauhtemoc Mccallum DO PCP: Dr. Marciano Anaya, DO Status:ADM IN Location: [place] [address] HPI Consult Data Date of Consult: 07/11/25 HPI Narrative HPI Narrative: BETSY LEE, is a 79-year-old female presenting to the emergency department for dyspnea and melena. Patient has a past medical history of asthma/COPD reports stopped smoking years ago, CAD, obesity and recently diagnosed atrial fibrillation by her primary care doctor. She was just started on Eliquis about aweek ago. She reports on 07/01 she went to see her primary care doctor due to having chesttightness across thefront of her chest and feeling fatigued. She was also experiencing shortness of breath at this time. An EKG was done which showed atrial fibrillation. She was also having lower extremity edema at that time andwas placed on Lasix as well as Eliquis. She also reports that she developed some epigastric abdominal pain and nausea followed by melanoticstool yesterday. On review last echo was September 2020 and showed an EF of 65%. She denies any fever, chills, cough, sore throat, chest pain, vomiting, dysuria or hematuria. [facility] Medical History Atrial fibrillation Squamous cell skin cancer Skin lesion of hand Acute kidney injury Acute respiratory failure with hypoxia Lactic acidosis Vision disturbance Chronic pain syndrome Acute blood loss anemia Anxiety and depression Asthma HLD (hyperlipidemia) Morbid obesity GI bleed Hyperkalemia Hypertension History of rheumatoid arthritis Home Medications ?Medication ?Instructions ?Recorded ?Last Taken ?Type albuterol sulfate 90 mcg/actuation 1 - 2 puff inhalati on Q6H PRN PRN 03/15/15 10/09/16 History aerosol inhaler (ProAir HFA) Shortness Of Breath hydrochlorothiazide 25 mg tablet 25 mg PO DAILY BP 04/2409/19/20 11:00 History methotrexate sodium 2.5 mg tablet 20 mg PO MO Rheumato id arthritis 03/15/15 09/18/20 History folic acid 1 mg tablet 1 mg PO DAILY@0800 #0 TABLET S 03/29/15 09/19/20 11:00 Rx losartan 50 mg tablet 50 mg PO DAILY #30 TABLETS 0 03/29/15 09/19/20 11:00 Rx prednisone 10 mg tablet 10 mg PO PRN PRN arthritis f lare up 07/07/19 3 Days Ago History ~09/16/20 sulfasalazine 500 mg tablet 1,000 mg PO BID arthritis 07/07/19 09/19/20 11:00 History venlafaxine 150 mg 150 mg PO DAILY depression/a nxiety 07/07/19 09/19/20 11:00 History capsule,extended release 24 hr vitamins A,C,Z-iqrj-ojnydv 2,148 1 tab PO DAILY EYE HE ALTH 07/07/19 09/19/20 11:00 History mcg-113 mg-45 mg-17.4 mg tablet atorvastatin 20 mg tablet 20 mg PO DAILY CHOLESTEROL 1 11/19/19 09/19/20 11:00 History magnesium oxide 400 mg PO DAILY SUPPLEMENT 1 11/19/19 09/19/20 11:00 History aspirin 81 mg tablet,delayed 81 mg PO DAILY@0800 #30 t abs 09/20/20 Unknown Rx release levothyroxine 100 mcg tablet mcg PO 07/16/23 Unknown H istory meclizine 12.5 mg tablet mg PO 07/16/23 Unknown Histo ry oxycodone-acetaminophen 10 mg-325 tab PO 07/16/23 Unkn own History mg tablet amlodipine 5 mg tablet 5 mg PO DAILY 07/09/25 Unkno wn History apixaban 5 mg tablet (Eliquis) 5 mg PO BID 07/09/25 Un known History atorvastatin 40 mg tablet 40 mg PO DAILY cholesterol 0 07/09/25 Unknown History furosemide 40 mg tablet 40 mg PO DAILY 07/09/25 Unkn own History metoprolol succinate 50 mg 50 mg PO DAILY 07/09/25 Unk nown History tablet,extended release 24 hr Allergy/AdvReac Type Severity Reaction Status Date / Time adhesive Allergy Other Verified 07/09/25 22:26 amoxicillin trihydrate (From Allergy Unknown Verified 07/09/25 22:26 Augmentin) latex Allergy Unknown Verified 07/09/25 22:26 Penicillins Allergy Unknown Verified 07/09/25 22:26 potassium clavulanate (From Allergy Unknown Verified 07/09/25 22:26 Augmentin) tetracycline Allergy Unknown Verified 07/09/25 22:26 Family History Sister Hypertension Brother Heart disease Surgical History History of hand surgery History of reverse total replacement of left shoulder joint History of tonsillectomy History of appendectomy History of tubal ligation History of knee replacement History of hip replacement History of back surgery Status post reverse total replacement of right shoulder Social History Smoking Status: Former smoker alcohol intake: current substance use type: does not use ROS Constitutional Constitutional: Denies fatigue, fever(s), poor appetite, weight gain or weight loss Gastrointestinal Gastrointestinal: Denies belching, bloating, change in bowel habits, change in stool character, chewing difficulty, coffee ground emesis, constipation, cramping, diarrhea, dyspepsia, dysphagia, earlysatiety, excessive flatus, fecalincontinence, heartburn, hematemesis, hematochezia, hemorrhoids, loose stools, melena, nausea, odynophagia, rectal bleeding, tenesmus, vomiting or weight changes Physical Exam Const alert, oriented x3, no apparent distress and healthy appearing General Appearance: cooperative GI normal to inspection, nondistended, normoactive bowel sounds, soft to palpation,non-tender and non-distended Percussion: normal to percussion Rectal Exam: deferred Lab / Micro Data 07/11/25 05:25 07/11/25 05:25 Labs: Laboratory Results - last 24 hr 07/09/25 22:31: WBC 11.4 H, RBC 2.82 L, Hgb 8.9 L, Hct 28.3 L, MCV 100.4 H, MCH 31.6, MCHC 31.4 L, RDW Std Deviation 55.7 H, RDW Coeff of Espinoza 15.5 H, Plt Count 274, MPV 11.1, Immature Gran % (Auto) 0.700, Neut % (Auto) 78.3 H, Lymph % (Auto) 17.2 L, Hinds % (Auto) 2.7, Eos % (Auto) 0.2, Baso % (Auto) 0.9, Absolute Neuts (auto) 8.9 H, Absolute Lymphs (auto) 1.96, Nucleated RBC % 0.2, Sodium 138, Potassium 4.9, Chloride 102, Carbon Dioxide 18.9 L, Anion Gap 18 H, BUN 37 H, Creatinine 1.11, Estim Creat Clear Calc 52.29, Est GFR (MDRD) Non-Af 51 L, BUN/Creatinine Ratio 33.1 H, Glucose 195 H, Hemoglobin A1c 5.5, Calcium 9.0, Magnesium 1.9, Total Bilirubin 0.31, AST 14, ALT 13, Alkaline Phosphatase 100, Troponin T High Sens 20 H D, NT pro BNP II 2359 H, Total Protein 6.0, Albumin 3.5, Globulin 2.5, Albumin/Globulin Ratio 1.4, Lipase 31, Blood Type A POSITIVE,Antibody Screen NEGATIVE 07/10/25 00:13: Urine Color Yellow, Urine Clarity Clear, Urine pH 6.0, Ur Specific [place] 1.010, Urine Protein 30 H, Urine Glucose (UA) Normal, Urine Ketones Negative, Urine Occult Blood Negative, Urine Nitrite Negative, Urine Bilirubin Negative, Urine Urobilinogen Normal, Ur Leukocyte Esterase Negative, Urine RBC 0 SEEN, Urine WBC 0 SEEN, Ur Squamous Epith Cells 0 SEEN, Urine Bacteria 0 SEEN, Urine Mucus 0 SEEN 07/10/25 00:31: Iron 26 L, TIBC 196 L, Iron Saturation 13.3, Unsaturated IBC 170L, Ferritin 156, Troponin T Hi Sens 2 Hr 14, TSH 2.680 07/10/25 05:46: WBC 12.6 H, RBC 2.57 L, Hgb 8.1 L, Hct 25.4 L, MCV 98.8, MCH 31.5, MCHC 31.9 L, RDWStd Deviation 54.4 H, RDW Coeff of Espinoza 15.6 H, Plt Count 229, MPV 11.5, Immature Gran % (Auto) 0.600, Neut % (Auto) 74.8 H, Lymph % (Auto) 19.2, Hinds % (Auto) 4.8, Eos % (Auto) 0.1, Baso % (Auto) 0.5, Absolute Neuts (auto) 9.4 H, Absolute Lymphs (auto) 2.42, Nucleated RBC % 0.2, Sodium 139, Potassium 4.8, Chloride 105, Carbon Dioxide 21.9, Anion Gap 12, BUN 44 H, Creatinine 0.91, Estim Creat Clear Calc 62.58, Est GFR (MDRD) Non-Af 60, BUN/Creatinine Ratio 49.0 H, Glucose 111 H, Calcium 8.9, Phosphorus 2.4 L, Total Bilirubin 0.25, AST 14, ALT 10, Alkaline Phosphatase 91, Total Protein 5.9, Albu min 3.3 L, Globulin 2.6, Albumin/Globulin Ratio 1.3, Vitamin B12 256, Serum Folate 19.50 07/10/25 12:00: WBC 15.5 H, RBC 2.32 L, Hgb 7.4 L, Hct 23.2 L, MCV 100.0 H, MCH 31.9, MCHC 31.9 L, RDW Std Deviation 55.1 H, RDW Coeff of Espinoza 15.9 H, Plt Count 227, MPV 10.8 Micro: Microbiology 07/09/25 22:31 Stool Stool Occult Blood (FRANSICO) - Final Occult Blood Positive Imaging Radiology Impression Abdomen/Pelvis CT 07/09/25 22:45 IMPRESSION: Interval appearance of mild pericardial effusion. Interval appearance of mild bilateral pleural effusions. Associated passive atelectatic airspace disease of the lower lobes. Hyperdense material is noted in the dependent aspect of the gastric body. Findings may represent acute hemorrhagic products. No precontrast images are provided to evaluate for active bleeding. Obtaining delayed phase images mayincrease the sensitivity of the exam to evaluate the significance of hyperdense material in the gastric lumen. Scattered right renal simple cysts are noted with the largest measuring 1.5 cm. Fat containing umbilical hernia without incarceration. Uncomplicated colonic diverticulosis. Bilateral hip prostheses are noted. Moderate diffuse spondylosis. Unremarkable low lumbar fusion metallic hardware. Unchanged bilateral vascular calcifications in the kidneys. Chronic posterior soft tissue thickening overlying the sacrococcygeal junction, unchanged. Reading [facility] 07/09/25 23:19 IMPRESSION: NO ACUTE FINDINGS. Reading Location: [facility] Assessment & Plan Assessment/Plan (1) SCHULTZ (dyspnea on exertion): (2) Fatigue: QUALIFIERS: Fatigue type: unspecified Qualified Code(s): R53.83 -Other fatigue (3) Upper GI bleed: (4) Melanotic stools: PLAN: 79-year-old female with new onset AFib complicated by acute gastrointestinal bleeding likely secondary to Eliquis.? * Gastrointestinal Bleed:?The patient's melena, anemia, and orthostatic hypotension are highly concerning for an upper GI bleed. The new onset of symptoms in close temporal proximity to starting an anticoagulant (Eliquis) strongly suggests the medication is a contributing factor, though it is likely potentiating bleeding from an underlying lesion. Given her age and anemia, there is a higher risk for bleeding on anticoagulation. * Anemia:?The significant drop in hemoglobin is consistent with acute blood loss from the GI tract. * Atrial Fibrillation:?The patient's AFib is currently managed with Eliquis for stroke prevention. The current bleeding event necessitates careful consideration of the risks of continued anticoagulation versus the risks of thromboembolic stroke. Her CHADS-VASc score is high. Plan * Agree with discontinuing Eliquis immediately. * Agree with PPI drip * ?Recommend esophagogastroduodenoscopy (EGD) to identify the bleeding source (e.g., peptic ulcer, angioectasia) and perform endoscopic hemostasis. * Order type and crossmatch?for blood transfusion. Her hemoglobin is 7.4 so we will transfuse her 2units of packed red blood cells with 20 mg of IV Lasix in between to achieve a target hemoglobin of7-9 g/dL, with a higher target for patients with significant cardiovascular disease. * Hold off on restarting anticoagulation?until hemostasis is confirmed and the underlying cause of the bleeding is addressed. Charges/Coding Visit Charges Inpatient E&M: 63350 Init Hosp L3 07/11/25 1126 Cosigner Signature (if applicable): CC: Dr. Marciano Anaya, ~ Signed [facility]09-01-2025 Consult note [facility] Medical Records Department [address] [place] [address] Pre-Anesthesia Evaluation 07/11/25 1055 MR#: [id number] Acct: [id number] Name: BETSY LEE Rep #:[id number] : 1945 79 From: Lai Neely PCP: Dr. Marciano Anaya DO Status:ADM IN Y Race: C Location: [place] [address] 4-1 ASA Classification* ASA Classification ASA Classification: 3 and E Assessment & Plan Anesthesia* Anesthesia Assessment Anesthesia Assessment: Discussed sedation and/or anesthesia options, risks, benefits, and alternatives with patient/parents/legal guardian/POA. Questions invited. The patient/parents/legal guardian/POA seems to understand and agrees to proceedwith anesthesia plan. Reviewed the physical assessment, medical history, allergy history and patient home medications list prior to surgery/procedure/anesthetic and documented any changes. Performed airway and anesthesia risk assessments. Anesthesia Type Anesthesia Type: MAC History Source History Obtained from:: Patient and Chart Anesthesia Focused Assessment* Temperature: 98.3 F Pulse Rate: 135 Blood Pressure: 125/70 Respiratory Rate: 18 Pulse Ox: 92 Oxygen Delivery Method: Room Air Airway Assessment Mouth opens: >3 cm Mallampati Score: III Teeth Condition: Dentures Neck Range of motion (ROM): Limited ROM Labs Anesthesia Preop lab: CBC WBC 16.8 K/mm3 (4.4-11.0) H 07/11/25 05: 5 RBC 3.14 M/mm3 (4.2-5.4) L 07/11/25 05:25 07/11/25 Hgb 9.6 g/dL (12.0-15.0) L 07/11/25 05:07/11/25 Hct 29.4 % (37-47) L 07/11/25 05:07/11/25 Plt Count 196 K/mm3 (150-450) 07/11/25 05:25 07/11/25 CHEMISTRY Potassium 3.9 mmol/L (3.3-5.1) 07/11/25 05:25 07/11/25 Sodium 140 mmol/L (133-145) 07/11/25 05:25 07/11/25 Magnesium 1.9 mg/dL (1.5-2.2) 07/09/25 22:31 07/09/25 Phosphorus 2.4 mg/dL (2.7-4.5) L 07/10/25 05:46 07/10/25 BUN 41 mg/dL (4-19) H 07/11/25 05:25 07/11/25 Creatinine 1.00 mg/dL (0.70-1.20) 07/11/25 05:25 07/11/25 Glucose 128 mg/dL (70-99) H 07/11/25 05:25 07/11/25 POC Glucose 139 mg/dL (70-110) H 12/08/20 11:45 12/08/20 TSH 2.680 uIU/mL (0.300-4.200) 07/10/25 00:06/12 COAG PT 16.9 SECONDS (11.7-14.9) H 07/11/25 05:12/04 Pre-Assessment Diagnosis/Proposed Procedure Planned Operative Procedure(s): EGD for low hemoglobin Anesthesia History Anesthesia History - events director: Anesthesia History - events director Hx Hospitalization No 12/06/20 17:41 Any Problems With Anesthesia Cholinesterase deficiency You/Your Family Experience fever (hyperthermia) with Relationship Recent Exposure to Contagious Disease Does patient have nerve stimulator Patient instructed to have device shut off --Does patient have Pacemaker or ICD? When Was Last Pacemaker Check QUESTION #4 FULL TEXT: You/Your Family Experience fever (hyperthermia) with Anesthesia Last Oral Intake Last Oral intake: Last Oral Intake NPO since Meds taken in AM with sips of water? Meds patient instructed to take am of surgery PONV PONV - events director: PONV - events director Female HX of Motion Sickness HX of N/V After Surgery Non-Smoker Duration of Surgery greater than 60 minutes Number of Risk Factors PONV Score Height & Weight Height & Weight: Anesthesia: Height & Weight Height 5 ft 5 in 07/10/25 10:17 Weight: 113.7 kg 07/11/25 05:38 Body Mass Index (BMI) 41.7 07/11/25 05:38 Respiratory Assessment Respiratory Assessment - events director: Respiratory Tract Infection Hx - events director Hx Respiratory Tract Infection STOP Sleep Apnea STOP Sleep Apnea - events director: STOP Sleep Apnea - events director Hx Hypertension Yes 07/10/25 08:32 Hx Sleep Apnea Yes 07/10/25 03:40 CPAP No 07/10/25 03:40 BIPAP No 07/10/25 03:40 Do you snore loudly (louder than talking or can be heard Do you often feel tired/ fatigued/ sleepy during daytime? Has anyone observed you stop breathing during sleep? STOP Results Positive 07/10/25 03:40 QUESTION #5 FULL TEXT : Do you snore loudly (louder than talking or can be heard through closeddoors)? Tobacco Use History Tobacco Use History - events director: Tobacco Use History - events director Tobacco Use Smoking Status Former smoker 07/10/25 03:40 Hx Tobacco Use No 07/10/25 03:40 Years Smoking Packs Smoked per Day Smoking Cessation Date was No - quit smoking greater 07/10/25 03:40 within the last 15 years than 15 years ago Hx Smoking Cessation Date 03/24/90 07/10/25 03:40 Hx Smoking Cessation Yes 07/10/25 03:40 Counseling Hematologic Medial History Hematologic Hx - events director: Hematologic Medical Hx - marriage and family counselor Hx of Blood Transfusion Yes 07/10/25 03:40 Hx of Transfusion in last 3 No 07/10/25 03:40 Months Date of Last Transfusion (if within last 3 months) Ever experience any problems No 07/10/25 03:40 with transfusion(s)? Specify any problems Hx of Preganancy in last 3 No 07/10/25 03:40 Months Nurse Filling Out Transfusion TBADGER 07/10/25 03:40 & Questions: Date: 07/10/25 07/10/25 03:40 Time: 03:49 07/10/25 03:40 Patient unable to answer at this time (ie. confused, unrespo /Reproduction History /Reproductive History - events director: /Reproductive Hx- events director Hx Now Gestational Age (in weeks): EDC: Hx Hx Para Hx Section SAB Active Medications Active Medications: Current Medications Generic Name Dose Route Start Last Admin Trade Name Freq PRN Reason Stop Dose Admin Acetaminophen 650 mg 07/10/25 04:08 Acetaminophen 650 Mg Suppository RC Q6H PRN PRN Pain 1-5/10 or Fever Albuterol Sulfate 2.5 mg 07/10/25 04:08 Albuterol 2.5 Mg/3 Ml Vial.Neb. INHALATION Q4H PRN PRN Shortness Of Breath Furosemide 40 mg 07/10/25 04:08 07/10/25 04:41 Furosemide 40 Mg/4 Ml Vial IV 40 mg DAILY MARIE Administration Protocol Sodium Chloride 250 mls @ 15 mls/hr 07/10/25 04:04 IV .[id number] PRN Saline Flush Sodium Chloride 250 mls @ 15 mls/hr 07/10/25 04:04 IV .[id number] PRN Additional IVPB Infusion Pantoprazole Sodium 80 mg/ 100 mls @ 10 mls/hr 07/10/25 04:08 07/11/25 02:10 Sodium Chloride CONT INF 10 mls/hr Q10H MARIE Administration Morphine Sulfate 2 mg 07/10/25 04:08 07/11/25 02:15 Morphine 2 Mg/Ml Syringe IV 2 mg Q4H PRN PRN Administration Pain Score 6-10 Nystatin 1 applic 07/10/25 22:00 07/11/25 10:18 Nystatin Powder 15gm Bottle TOPICAL Not Given BID [facility] Protocol Ondansetron HCl 4 mg 07/10/25 04:08 07/10/25 10:11 Ondansetron 4 Mg/2 Ml Vial IV 4 mg Q4H PRN PRN Administration NAUSEA/VOMITING Sodium Chloride 10 - 40 ml 07/10/25 04:04 07/11/25 06:54 0.9% Saline Lock 10 Ml Syringe IV 10 ml UD PRN Administration SALINE FLUSH PFSH Medical History Atrial fibrillation Squamous cell skin cancer Skin lesion of hand Acute kidney injury Acute respiratory failure with hypoxia Lactic acidosis Vision disturbance Chronic pain syndrome Acute blood loss anemia Anxiety and depression Asthma HLD (hyperlipidemia) Morbid obesity GI bleed Hyperkalemia Hypertension History of rheumatoid arthritis Home Medications ?Medication ?Instructions ?Recorded ?Last Taken ?Type albuterol sulfate 90 mcg/actuation 1 - 2 puff inhalati on Q6H PRN PRN 03/15/15 10/09/16 History aerosol inhaler (ProAir HFA) Shortness Of Breath hydrochlorothiazide 25 mg tablet 25 mg PO DAILY BP 04/2409/19/20 11:00 History methotrexate sodium 2.5 mg tablet 20 mg PO MO Rheumato id arthritis 03/15/15 09/18/20 History folic acid 1 mg tablet 1 mg PO DAILY@0800 #0 TABLET S 03/29/15 09/19/20 11:00 Rx losartan 50 mg tablet 50 mg PO DAILY #30 TABLETS 0 03/29/15 09/19/20 11:00 Rx prednisone 10 mg tablet 10 mg PO PRN PRN arthritis f lare up 07/07/19 3 Days Ago History ~09/16/20 sulfasalazine 500 mg tablet 1,000 mg PO BID arthritis 07/07/19 09/19/20 11:00 History venlafaxine 150 mg 150 mg PO DAILY depression/a nxiety 07/07/19 09/19/20 11:00 History capsule,extended release 24 hr vitamins A,C,F-rbli-hevudj 2,148 1 tab PO DAILY EYE HE ALTH 07/07/19 09/19/20 11:00 History mcg-113 mg-45 mg-17.4 mg tablet atorvastatin 20 mg tablet 20 mg PO DAILY CHOLESTEROL 1 11/19/19 09/19/20 11:00 History magnesium oxide 400 mg PO DAILY SUPPLEMENT 1 11/19/19 09/19/20 11:00 History aspirin 81 mg tablet,delayed 81 mg PO DAILY@0800 #30 t abs 09/20/20 Unknown Rx release levothyroxine 100 mcg tablet mcg PO 07/16/23 Unknown H istory meclizine 12.5 mg tablet mg PO 07/16/23 Unknown Histo ry oxycodone-acetaminophen 10 mg-325 tab PO 07/16/23 Unkn own History mg tablet amlodipine 5 mg tablet 5 mg PO DAILY 07/09/25 Unkno wn History apixaban 5 mg tablet (Eliquis) 5 mg PO BID 07/09/25 Un known History atorvastatin 40 mg tablet 40 mg PO DAILY cholesterol 0 07/09/25 Unknown History furosemide 40 mg tablet 40 mg PO DAILY 07/09/25 Unkn own History metoprolol succinate 50 mg 50 mg PO DAILY 07/09/25 Unk nown History tablet,extended release 24 hr Allergy/AdvReac Type Severity Reaction Status Date / Time adhesive Allergy Other Verified 07/09/25 22:26 amoxicillin trihydrate (From Allergy Unknown Verified 07/09/25 22:26 Augmentin) latex Allergy Unknown Verified 07/09/25 22:26 Penicillins Allergy Unknown Verified 07/09/25 22:26 potassium clavulanate (From Allergy Unknown Verified 07/09/25 22:26 Augmentin) tetracycline Allergy Unknown Verified 07/09/25 22:26 Family History Sister Hypertension Brother Heart disease Surgical History History of hand surgery History of reverse total replacement of left shoulder joint History of tonsillectomy History of appendectomy History of tubal ligation History of knee replacement History of hip replacement History of back surgery Status post reverse total replacement of right shoulder Social History Smoking Status: Former smoker alcohol intake: current substance use type: does not use Review of Systems (Anesthesia) ROS Narrative System reviewed and no additional complaints, except as documented. 07/11/25 1056 MD> Date _ Lai Delgado Signature: Date CC: ~ Signed [facility]08-31-2025 [facility] Note Date/Time July 10, 2025 10 :52am [facility] Medical Records Department [address] [place] [address] Progress Note - Hospitalist 07/10/25 1047 MR#: [id number] Acct: [id number] Name: BETSY LEE Rep #:[id number] : 1945 79 From: Pieter hanley DO PCP: Dr. Marciano Anaya, DO Status:ADM IN Location: [place] [address] Hospitalist Note Patient admitted overnight for acute blood loss anemia suspected secondary to upper GI bleed, as well as new onset A-fib with RVR. I saw the patient at bedside this morning. Patient was fatigued appearing but was otherwise sitting comfortably in bed, conversing normally and in no acute distress. Noted that she has had 1 more dark bowel movement since arrival to the floor this morning. She denies any abdominal or epigastric pain. Denies any feeling of heart racingor palpitations. Her heart rate has consistently been in the 100s to 120s and A-fib on the monitor. BP has been low normal in the 100s systolic. Will recheck CBC at 12 PM today; if hemoglobin has downtrended to 7.5 or less, will transfuse with blood given the acute nature of her hemoglobin drop. Suspect Marshall-fib RVR is secondary to her GI bleed and given her low normal BP, will hold onany rate control medication for this for now. Not a candidate for anticoagulation currently due to her GI bleed. Continue IV Protonix drip. Will keep patient n.p.o. at this time in case of need for urgent EGD. Full progress note to follow tomorrow. 07/10/25 1052 <Electronically signed by Pieter Hu DO> Cosigner Signature (if applicable): CC: ~ Signed [facility] Work Phone: [phone] [phone] Progress note [facility] Medical Records Department [address] [place] [address] Progress Note - Hospitalist 07/10/25 1047 MR#: [id number] Acct: [id number] Name: BETSY LEE Rep #:[id number] : 1945 79 From: Pieter hanley DO PCP: Dr. Marciano Anaya, DO Status:ADM IN Location: [place] [address] Hospitalist Note Patient admitted overnight for acute blood loss anemia suspected secondary to upper GI bleed, as well as new onset A-fib with RVR. I saw the patient at bedside this morning. Patient was fatigued appearing but was otherwise sitting comfortably in bed, conversing normally and in no acute distress. Noted that she has had 1 more dark bowel movement since arrival to the floor this morning. She denies any abdominal or epigastric pain. Denies any feeling of heart racingor palpitations. Her heart rate has consistently been in the 100s to 120s and A-fib on the monitor. BP has been low normal in the 100s systolic. Will recheck CBC at 12 PM today; if hemoglobin has downtrended to 7.5 or less, will transfuse with blood given the acute nature of her hemoglobin drop. Suspect Marshall-fib RVR is secondary to her GI bleed and given her low normal BP, will hold onany rate control medication for this for now. Not a candidate for anticoagulation currently due to her GI bleed. Continue IV Protonix drip. Willkeep patient n.p.o. at this time in case of need for urgent EGD. Full progress note to follow tomorrow. 07/10/25 105 Cosigner Signature (if applicable): CC: ~ Signed [facility]08-31-2025 History and physical note Author Bro Leong [facility] Note Date/Time July 10, 2025 6: 25am [facility] Medical Records Department [address] [place] [address] H&P Exam - Hospitalist 07/10/25 0226 MR#: [id number] Acct: [id number] Name: BETSY LEE Rep #:[id number] : 1945 79 From: Bro Levi DO PCP: Dr. Marciano Anaya, DO Status:ADM IN Location: [address] - General General Date of Admission: 07/10/25 Date of Service: 07/10/25 Chief Complaint: SOB and Fatigue. HPI Narrative BETSY LEE, is a 79 F with a past medical history of essential hypertension;on amlodipine, furosemide, hydrochlorothiazide and metoprolol daily, hyperlipidemia; on atorvastatin, hypothyroidism; on levothyroxine, morbid obesity (class III); with BMI of 42.6 this admission, history of CAD; on baby aspirin daily, recently diagnosed atrial fibrillation; on apixaban twice daily, former tobacco abuse; with subsequent asthma/COPD, history of RA; on methotrexate, sulfasalazine plus as needed prednisone, history of squamous cell skin cancer, depression with anxiety; on venlafaxine, history of vertigo; on meclizine and OA; s/p bilateral THR's, bilateral TKR's, Right total shoulder replacement (2014) plus lumbar fusion (2012) with resultant chronic pain syndrome; on oxycodone as needed who presents to [facility] ER complaining of shortness of breath and fatigue. Ms. Lee reports her symptoms began on July 01, 2025 when [facility] due to having chest tightness across the front of her chest and feeling fatigued with bilateral lower extremity edema culminating with the patient subsequently having EKG that revealed atrial fibrillation; with rapid ventricular response. She was then started on furosemide as well as apixaban without ensuing improvement. She states her shortness of breath is worse with new dyspnea on exertion that she denies shortness of breath at rest followed by the development of melanotic stool on July 09, 2025. Then earlier in the evening on July 10, 2025 she developed epigastric abdominal pain and nausea soshe decided to come in for further evaluation and treatment. She denies associated fever, chills, runny nose, sore throat, ear pain, vomiting, constipation, chest pain, dysuria, hematuria, headache or rash. In the ER she was noted to have laboratory evidence of ABLA with hemoglobin of 8.9 g/dL present on admission (down from 11.9 g/dL on June 06, 2025) with a confirmatory elevated BUN of 37 mg/dL and normal creatinine of 1.11 mg/dL suggestive of UpperGI Bleed suspected to be due to Adverse Drug Reaction to recently started DOAC with corresponding CT scan of the abdomen pelvis that revealed hyperdense material noted in the dependent aspect of the gastric body with findings that may represent acute hemorrhage products complicated by EKG evidence of Atrial Fibrillation; with RVR that required treatment with IV metoprolol compounded by elevated NT pro-BNP II of 2,359 pg/mL present on admission consistent with AE CHF; with preserved LVEF with CT scan revealing interval appearance of mild bilateral pleural effusions with mild pericardial effusion along with additionallaboratory evidence of Leukocytosis of 11.4 K present on admission suspect to bedue to acute stress response with no signs of infection on UA or imaging. She was then admitted to the PCU for ongoing care for a stay that is expected to extend beyond 2 midnights. [facility] Medical History Atrial fibrillation Squamous cell skin cancer Skin lesion of hand Acute kidney injury Acute respiratory failure with hypoxia Lactic acidosis Vision disturbance Chronic pain syndrome Acute blood loss anemia Anxiety and depression Asthma HLD (hyperlipidemia) Morbid obesity GI bleed Hyperkalemia Hypertension History of rheumatoid arthritis Home Medications ?Medication ?Instructions ?Recorded ?Last Taken ?Type albuterol sulfate 90 mcg/actuation 1 - 2 puff inhalati on Q6H PRN PRN 03/15/15 10/09/16 History aerosol inhaler (ProAir HFA) Shortness Of Breath hydrochlorothiazide 25 mg tablet 25 mg PO DAILY BP 04/2409/19/20 11:00 History methotrexate sodium 2.5 mg tablet 20 mg PO MO Rheumato id arthritis 03/15/15 09/18/20 History folic acid 1 mg tablet 1 mg PO DAILY@0800 #0 TABLET S 03/29/15 09/19/20 11:00 Rx losartan 50 mg tablet 50 mg PO DAILY #30 TABLETS 0 03/29/15 09/19/20 11:00 Rx prednisone 10 mg tablet 10 mg PO PRN PRN arthritis f lare up 07/07/19 3 Days Ago History ~11/07/20 sulfasalazine 500 mg tablet 1,000 mg PO BID arthritis 07/07/19 09/19/20 11:00 History venlafaxine 150 mg 150 mg PO DAILY depression/a nxiety 07/07/19 09/19/20 11:00 History capsule,extended release 24 hr vitamins A,C,Q-lxkx-zyhdnp 2,148 1 tab PO DAILY EYE HE ALTH 07/07/19 09/19/20 11:00 History mcg-113 mg-45 mg-17.4 mg tablet atorvastatin 20 mg tablet 20 mg PO DAILY CHOLESTEROL 1 11/19/19 09/19/20 11:00 History magnesium oxide 400 mg PO DAILY SUPPLEMENT 1 11/19/19 09/19/20 11:00 History aspirin 81 mg tablet,delayed 81 mg PO DAILY@0800 #30 t abs 09/20/20 Unknown Rx release levothyroxine 100 mcg tablet mcg PO 07/16/23 Unknown H istory meclizine 12.5 mg tablet mg PO 07/16/23 Unknown Histo ry oxycodone-acetaminophen 10 mg-325 tab PO 07/16/23 Unkn own History mg tablet amlodipine 5 mg tablet 5 mg PO DAILY 07/09/25 Unkno wn History apixaban 5 mg tablet (Eliquis) 5 mg PO BID 07/09/25 Un known History atorvastatin 40 mg tablet 40 mg PO DAILY cholesterol 0 07/09/25 Unknown History furosemide 40 mg tablet 40 mg PO DAILY 07/09/25 Unkn own History metoprolol succinate 50 mg 50 mg PO DAILY 07/09/25 Unk nown History tablet,extended release 24 hr Allergy/AdvReac Type Severity Reaction Status Date / Time adhesive Allergy Other Verified 07/09/25 22:26 amoxicillin trihydrate (From Allergy Unknown Verified 07/09/25 22:26 Augmentin) latex Allergy Unknown Verified 07/09/25 22:26 Penicillins Allergy Unknown Verified 07/09/25 22:26 potassium clavulanate (From Allergy Unknown Verified 07/09/25 22:26 Augmentin) tetracycline Allergy Unknown Verified 07/09/25 22:26 Family History Sister Hypertension Brother Heart disease Surgical History History of hand surgery History of reverse total replacement of left shoulder joint History of tonsillectomy History of appendectomy History of tubal ligation History of knee replacement History of hip replacement History of back surgery Status post reverse total replacement of right shoulder Social History Smoking Status: Former smoker alcohol intake: current substance use type: does not use ROS ROS Narrative Review of Systems: Constitutional: Patient denies fever or chills. Eyes: Patient denies change in vision or discharge from eyes. ENT: Patient denies runny nose, sore throat or ear pain. Resp: Patient admits to shortness of breath or chest pain denies cough. CV: Patient admits to ~1+ bilateral lower extremity edema but she denies chest pain, palpitations or heart racing. GI: Patient denies abdominal pain, nausea, vomiting, diarrhea or constipation. : Patient denies dysuria or hematuria. MSK: Patient denies arthralgias or myalgias. Skin: Patient denies rash. Psych: Patient denies symptoms of uncontrolled anxiety. Neuro: Patient denies headache, paresthesias or focal neurologic deficits. Allergy: Patient denies lip swelling, tongue swelling or urticaria. Hematology: Patient notes to melanotic stools after apixaban was added to daily baby aspirin as per HPI. Endocrinology: Patient denies polyuria, polydipsia, polyphagia or heat/cold intolerance. 14 point ROS otherwise negative except for positives noted above in HPI. Vital Signs Vital Signs Vital Signs: 07/09/25 22:27 07/09/25 22:31 07/09/25 22:32 Temperature 98.6 F 98.6 F Temperature Source Oral Oral Pulse Rate 135 H 135 H Respiratory Rate 25 H 25 H Respiratory Effort Short of Breath Respiratory Pattern Tachypnea Blood Pressure 93/55 L 93/55 L Blood Pressure Mean 67 67 Pulse Ox 95 96 Oxygen Delivery Method Room Air Room Air Room Air 07/09/25 22:51 07/09/25 23:31 07/10/25 00:00 Temperature 99.4 F H Temperature Source Oral Pulse Rate 126 H 126 H Respiratory Rate 22 H 24 H Respiratory Effort Respiratory Pattern Blood Pressure 121/88 H 106/62 Blood Pressure Mean 99 76 Pulse Ox 95 95 95 Oxygen Delivery Method Room Air Room Air Room Air 07/10/25 00:00 07/10/25 00:04 07/10/25 01:00 Temperature 99.4 F H 99.4 F H Temperature Source Oral Oral Pulse Rate 122 H 130 H 119 H Respiratory Rate 24 H 13 22 H Respiratory Effort Respiratory Pattern Blood Pressure 114/67 116/69 Blood Pressure Mean 82 84 Pulse Ox 98 95 Oxygen Delivery Method Room Air Room Air 07/10/25 01:10 07/10/25 02:00 Temperature 99.4 F H Temperature Source Oral Pulse Rate 112 H 103 H Respiratory Rate 22 H 21 H Respiratory Effort Respiratory Pattern Blood Pressure 109/67 97/74 Blood Pressure Mean 81 81 Pulse Ox 96 97 Oxygen Delivery Method Room Air Room Air Weight Weight: 255 lb 11.779 oz Body Mass Index (BMI) 42.5 Physical Exam Const alert, oriented x3 and no apparent distress Constitutional Narrative: Morbidly obese and chronically ill and appearance. General Appearance: cooperative HEENT normocephalic, head/scalp atraumatic, hearing grossly normal bilaterally and moist oral mucous membranes Eyes PERRL, EOMs intact bilaterally and conjunctivae normal Neck no lymphadenopathy, supple and no JVD Resp normal respiratory effort, no retractions, no use of accessory muscles and clearto auscultation bilaterally Cardio Cardio Narrative: Irregularly irregular at ~103 bpm. GI normal to inspection, nondistended, normoactive bowel sounds, soft to palpation,non-tender and non-distended GI Narrative: Morbidly obese. Extremity Extremity Narrative: ~1+ bilateral lower extremity pitting edema. Skin Skin Narrative: Patient has no evidence of rash. Neuro oriented x3, CN's II-XII intact bilaterally, moves all extremities and no focal motor deficits Sensorium / Orientation: awake, alert, oriented to person, oriented to place andoriented to time Speech: speech normal Psych affect normal Results Medical Records Data Attestation: I reviewed the patient's medical records Lab / Micro Data Attestation: I reviewed the patient's lab results. 07/09/25 22:31 07/09/25 22:31 Labs: Laboratory Results - last 24 hr 07/09/25 22:31: WBC 11.4 H, RBC 2.82 L, Hgb 8.9 L, Hct 28.3 L, MCV 100.4 H, MCH 31.6, MCHC 31.4 L, RDW Std Deviation 55.7 H, RDW Coeff of Espinoza 15.5 H, Plt Count 274, MPV 11.1, Immature Gran % (Auto) 0.700, Neut % (Auto) 78.3 H, Lymph % (Auto) 17.2 L, Hinds % (Auto) 2.7, Eos % (Auto) 0.2, Baso % (Auto) 0.9, Absolute Neuts (auto) 8.9 H, Absolute Lymphs (auto) 1.96, Nucleated RBC % 0.2, Sodium 138, Potassium 4.9, Chloride 102, Carbon Dioxide 18.9 L, Anion Gap 18 H, BUN 37 H, Creatinine 1.11, Estim Creat Clear Calc 52.29, Est GFR (MDRD) Non-Af 51 L, BUN/Creatinine Ratio 33.1 H, Glucose 195 H, Calcium 9.0, Magnesium 1.9, Total Bilirubin 0.31, AST 14, ALT 13, Alkaline Phosphatase 100, Troponin T High Sens 20 H D, NT pro BNP II 2359 H, Total Protein 6.0, Albumin 3.5, Globulin 2.5, Albumin/Globulin Ratio 1.4, Lipase 31, Blood Type A POSITIVE, Antibody Screen NEGATIVE 07/10/25 00:13: Urine Color Yellow, Urine Clarity Clear, Urine pH 6.0, Ur Specific [place] 1.010, Urine Protein 30 H, Urine Glucose (UA) Normal, Urine Ketones Negative, Urine Occult Blood Negative, Urine Nitrite Negative, Urine Bilirubin Negative, Urine Urobilinogen Normal, Ur Leukocyte Esterase Negative, Urine RBC 0 SEEN, Urine WBC 0 SEEN, Ur Squamous Epith Cells 0 SEEN, Urine Bacteria 0 SEEN, Urine Mucus 0 SEEN 07/10/25 00:31: Troponin T Hi Sens 2 Hr 14 Micro: Microbiology 07/09/25 22:31 Stool Stool Occult Blood (FRANSICO) - Final Occult Blood Positive Imaging Radiology Impression Abdomen/Pelvis CT 07/09/25 22:45 IMPRESSION: Interval appearance of mild pericardial effusion. Interval appearance of mild bilateral pleural effusions. Associated passive atelectatic airspace disease of the lower lobes. Hyperdense material is noted in the dependent aspect of the gastric body. Findings may represent acute hemorrhagic products. No precontrast images are provided to evaluate for active bleeding. Obtaining delayed phase images may increase the sensitivity of the exam to evaluate the significance of hyperdense material in the gastric lumen. Scattered right renal simple cysts are noted with the largest measuring 1.5 cm. Fat containing umbilical hernia without incarceration. Uncomplicated colonic diverticulosis. Bilateral hip prostheses are noted. Moderate diffuse spondylosis. Unremarkable low lumbar fusion metallic hardware. Unchanged bilateral vascular calcifications in the kidneys. Chronic posterior soft tissue thickening overlying the sacrococcygeal junction, unchanged. Reading Location: [place] [address] Chest X-Ray 07/09/25 23:19 IMPRESSION: NO ACUTE FINDINGS. Reading [facility] Assessment & Plan Assessment/Plan (1) ABLA (acute blood loss anemia): (2) Melanotic stools: (3) Upper GI bleed: (4) Adverse drug reaction: QUALIFIERS: Encounter type: initial encounter Qualified Code(s): T50.905A - Adverse effect of unspecified drugs, medicaments and biological substances, initial encounter (5) Atrial fibrillation with RVR: (6) Acute exacerbation of chronic heart failure: (7) SCHULTZ (dyspnea on exertion): (8) Fatigue: QUALIFIERS: Fatigue type: unspecified Qualified Code(s): R53.83 -Other fatigue (9) Morbid obesity with BMI of 40.0-44.9, adult: (10) Leukocytosis: QUALIFIERS: Leukocytosis type: unspecified Qualified Code(s): D72.829 - Elevated white blood cell count, unspecified PLAN: Plan 1. ABLA with hemoglobin of 8.9 g/dL present on admission (down from 11.9 g/dL on June 06, 2025) with a confirmatory elevated BUN of 37 mg/dL and normal creatinine of 1.11 mg/dL suggestive of Upper GI Bleed - Admit to PCU. Keep strict n.p.o. Continue IV pantoprazole infusion began in ER and Hemoccult stools. Patient already typed and screened with plan to transfuse if hemoglobindrops to less than 7 g/dL. Give ondansetron IV as needed for nausea vomiting. Give acetaminophen OH for [id number] (level 1-5/10) pain or fever. Give morphine IV as needed for severe (level 6-10/10) pain. Finally, we will consultgastroenterology to see this patient on rounds in the a.m. for further recommendations regarding EGD this admission with help appreciated in advance. 2. Adverse Drug Reaction to recently started DOAC added to daily BASA used to treat CAD with corresponding CT scan of the abdomen pelvis that revealed hyperdense material noted in the dependent aspect of the gastric body with findings that may represent Acute Hemorrhage products likely causing #1 with suspected underlying PUD - Hold apixaban until further notice. 3. EKG evidence of Atrial Fibrillation; with RVR that required treatment with IV metoprolol complicating #1 & #2 - We we will give as needed IV digoxin to keep heart rate less than 100 bpm to avoid unnecessarily lowering blood pressure. Check new echocardiogram with last one done here in September 2020 that revealed LVEF ~65% with stage I diastolic dysfunction. 4. Elevated NT pro-BNP II of 2,359 pg/mL present on admission consistent with AE of chronic diastolic CHF; with preserved LVEF with corresponding CT scan revealing interval appearance of mild bilateral pleural effusions with mild pericardial effusion and clinical complaints of SCHULTZ and Fatigue attributable to #1 - #3 - Give furosemide IV daily if blood pressure can tolerate. Serialize troponin. Patient not requiring supplemental oxygen so far with oxygen saturation of 96% on RA. 5. Morbid obesity (class III); with BMI of 42.6 this admission adding to the burden of disease outlined from #1 - #4 - Weight loss will be recommended. TSH pending. This complicates her case and may hamper recovery. 6. Leukocytosis of 11.4 K present on admission suspect to be due to acute stress response with no signs of infection on UA or imaging - Noted. Check CBC daily to follow trend. 7. Former tobacco abuse; with subsequent asthma/COPD - Stable and without evidence of acute flare at this time. Maintain prn nebulizers/inhalers. 8. Essential hypertension; on amlodipine, furosemide, hydrochlorothiazide and metoprolol daily - Hold oral antihypertensives in light of #1. Give hydralazineIV prn for systolic blood pressure > 160 mmHg. 9. Hyperlipidemia; on atorvastatin - Hold statin until she is cleared for oral intake by gastroenterology. 10. Hypothyroidism; on levothyroxine - Restart levothyroxine when possible. 11. History of RA; on methotrexate, sulfasalazine plus as needed prednisone - Hold this regimen for now and restart when safe to do so. 12. History of squamous cell skin cancer - Noted. 13. Depression with anxiety; on venlafaxine - Restart this agent when able. 14. History of vertigo; on meclizine - Stable. 15. OA; s/p bilateral THR's, bilateral TKR's, Right total shoulder replacement (2014) plus lumbar fusion (2012) with resultant chronic pain syndrome; on prn oxycodone - We will follow pain regimen and scales outlined in #1. 16. DVT/GI prophylaxis - SCD's only in light of ABLA outlined in #1 contraindicating chemoprophylaxis. Patient started on continuous IV pantoprazole infusion for presumed PUD outlined in #1. Total time: Approximately (but not less than) 75 minutes. Charges/Coding Visit Charges Inpatient E&M: 81491 Init Hosp L3 07/10/25 06 <Electronically signed by Bro Johnson DO> Cosigner Signature (if applicable): CC: Dr. Bro Johnson DO; Dr. Marciano Anaya DO~ Signed [facility] Work Phone: [phone]) 454-820808-31-2025 History and physical note [facility] Medical Records Department [address] [place] [id number] H&P Exam - Hospitalist 07/10/256 MR#: [id number] Acct: [id number] Name: BETSY LEE Rep #:[id number] : 1945 79 From: Bro Levi DO PCP: Dr. Marciano Anaya DO Status:ADM IN Location: [address] HPI - General General Date of Admission: 07/10/25 Date of Service: 07/10/25 Chief Complaint: SOB and Fatigue. HPI Narrative BETSY LEE, is a 79 F with a past medical history of essential hypertension;on amlodipine, furosemide, hydrochlorothiazide and metoprolol daily, hyperlipidemia; on atorvastatin, hypothyroidism; on levothyroxine, morbid obesity (class III); with BMI of 42.6 this admission, history of CAD; on baby aspirin daily, recently diagnosed atrial fibrillation; on apixaban twice daily, former tobacco abuse; with subsequent asthma/COPD, history of RA; on methotrexate, sulfasalazine plus as needed prednisone, history of squamous cell skin cancer, depression with anxiety; on venlafaxine, history of vertigo; on meclizine and OA; s/p bilateral THR's, bilateral TKR's, Right total shoulder replacement (2014) plus lumbar fusion (2012) with resultant chronic pain syndrome; on oxycodone as needed who presents to [facility] ER complaining of shortness of breath and fatigue. Ms. Lee reports her symptoms began on July 01, 2025 when [facility] to having chest tightness across the front of her chest and feeling fatigued with bilateral lower extremity edema culminating with the patient subsequently having EKG that revealed atrial fibrillation; with rapid ventricular response. She was then started on furosemide as well as apixaban without ensuing improvement. She states her shortness of breath is worse with new dyspnea on exertion that she denies shortness of breath at rest followed by the development of melanotic stool on July 09, 2025. Then earlier in the evening on July 10, 2025 she developed epigastric abdominal pain and alonso hall decided to come in for further evaluation and treatment. She denies associated fever, chills, runny nose, sore throat, ear pain, vomiting, constipation, chest pain, dysuria, hematuria, headache or rash. In the ER she was noted to have laboratory evidence of ABLA with hemoglobin of 8.9 g/dL present on admission (down from 11.9 g/dL on June 06, 2025) with a confirmatory elevated BUN of 37 mg/dL and normal creatinine of 1.11 mg/dL suggestive of UpperGI Bleed suspected to be due to Adverse Drug Reaction to recently started DOAC with corresponding CT scan of the abdomen pelvis that revealed hyperdense material noted in the dependent aspect of the gastric body with findings that may represent acute hemorrhage products complicated by EKG evidence of Atrial Fibrillation; with RVR that required treatment with IV metoprolol compounded by elevated NT pro-BNP II of 2,359 pg/mL present onadmission consistent with AE CHF; with preserved LVEF with CT scan revealing interval appearance ofmild bilateral pleural effusions with mild pericardial effusion along with additionallaboratory evidence of Leukocytosis of 11.4 K present on admission suspect to bedue to acute stress response with no signs of infection on UA or imaging. She was then admitted to the PCU for ongoing care for a staythat is expected to extend beyond 2 midnights. [facility] Medical History Atrial fibrillation Squamous cell skin cancer Skin lesion of hand Acute kidney injury Acute respiratory failure with hypoxia Lactic acidosis Vision disturbance Chronic pain syndrome Acute blood loss anemia Anxiety and depression Asthma HLD (hyperlipidemia) Morbid obesity GI bleed Hyperkalemia Hypertension History of rheumatoid arthritis Home Medications ?Medication ?Instructions ?Recorded ?Last Taken ?Type albuterol sulfate 90 mcg/actuation 1 - 2 puff inhalati on Q6H PRN PRN 03/15/15 10/09/16 History aerosol inhaler (ProAir HFA) Shortness Of Breath hydrochlorothiazide 25 mg tablet 25 mg PO DAILY BP 04/2409/19/20 11:00 History methotrexate sodium 2.5 mg tablet 20 mg PO MO Rheumato id arthritis 03/15/15 09/18/20 History folic acid 1 mg tablet 1 mg PO DAILY@0800 #0 TABLET S 03/29/15 09/19/20 11:00 Rx losartan 50 mg tablet 50 mg PO DAILY #30 TABLETS 0 03/29/15 09/19/20 11:00 Rx prednisone 10 mg tablet 10 mg PO PRN PRN arthritis f lare up 07/07/19 3 Days Ago History ~09/16/20 sulfasalazine 500 mg tablet 1,000 mg PO BID arthritis 07/07/19 09/19/20 11:00 History venlafaxine 150 mg 150 mg PO DAILY depression/a nxiety 07/07/19 09/19/20 11:00 History capsule,extended release 24 hr vitamins A,C,R-fpcs-sgdzhw 2,148 1 tab PO DAILY EYE HE ALTH 07/07/19 09/19/20 11:00 History mcg-113 mg-45 mg-17.4 mg tablet atorvastatin 20 mg tablet 20 mg PO DAILY CHOLESTEROL 1 11/19/19 09/19/20 11:00 History magnesium oxide 400 mg PO DAILY SUPPLEMENT 1 11/19/19 09/19/20 11:00 History aspirin 81 mg tablet,delayed 81 mg PO DAILY@0800 #30 t abs 09/20/20 Unknown Rx release levothyroxine 100 mcg tablet mcg PO 07/16/23 Unknown H istory meclizine 12.5 mg tablet mg PO 07/16/23 Unknown Histo ry oxycodone-acetaminophen 10 mg-325 tab PO 07/16/23 Unkn own History mg tablet amlodipine 5 mg tablet 5 mg PO DAILY 07/09/25 Unkno wn History apixaban 5 mg tablet (Eliquis) 5 mg PO BID 07/09/25 Un known History atorvastatin 40 mg tablet 40 mg PO DAILY cholesterol 0 07/09/25 Unknown History furosemide 40 mg tablet 40 mg PO DAILY 07/09/25 Unkn own History metoprolol succinate 50 mg 50 mg PO DAILY 07/09/25 Unk nown History tablet,extended release 24 hr Allergy/AdvReac Type Severity Reaction Status Date / Time adhesive Allergy Other Verified 07/09/25 22:26 amoxicillin trihydrate (From Allergy Unknown Verified 07/09/25 22:26 Augmentin) latex Allergy Unknown Verified 07/09/25 22:26 Penicillins Allergy Unknown Verified 07/09/25 22:26 potassium clavulanate (From Allergy Unknown Verified 07/09/25 22:26 Augmentin) tetracycline Allergy Unknown Verified 07/09/25 22:26 Family History Sister Hypertension Brother Heart disease Surgical History History of hand surgery History of reverse total replacement of left shoulder joint History of tonsillectomy History of appendectomy History of tubal ligation History of knee replacement History of hip replacement History of back surgery Status post reverse total replacement of right shoulder Social History Smoking Status: Former smoker alcohol intake: current substance use type: does not use ROS ROS Narrative Review of Systems: Constitutional: Patient denies fever or chills. Eyes: Patient denies change in vision or discharge from eyes. ENT: Patient denies runny nose, sore throat or ear pain. Resp: Patient admits to shortness of breath or chest pain denies cough. CV: Patient admits to ~1+ bilateral lower extremity edema but she denies chest pain, palpitations or heart racing. GI: Patient denies abdominal pain, nausea, vomiting, diarrhea or constipation. : Patient denies dysuria or hematuria. MSK: Patient denies arthralgias or myalgias. Skin: Patient denies rash. Psych: Patient denies symptoms of uncontrolled anxiety. Neuro: Patient denies headache, paresthesias or focal neurologic deficits. Allergy: Patient denies lip swelling, tongue swelling or urticaria. Hematology: Patient notes to melanotic stools after apixaban was added to daily baby aspirin as perHPI. Endocrinology: Patient denies polyuria, polydipsia, polyphagia or heat/cold intolerance. 14 point ROS otherwise negative except for positives noted above in HPI. Vital Signs Vital Signs Vital Signs: 07/09/25 22:27 07/09/25 22:31 07/09/25 22:32 Temperature 98.6 F 98.6 F Temperature Source Oral Oral Pulse Rate 135 H 135 H Respiratory Rate 25 H 25 H Respiratory Effort Short of Breath Respiratory Pattern Tachypnea Blood Pressure 93/55 L 93/55 L Blood Pressure Mean 67 67 Pulse Ox 95 96 Oxygen Delivery Method Room Air Room Air Room Air 07/09/25 22:51 07/09/25 23:31 07/10/25 00:00 Temperature 99.4 F H Temperature Source Oral Pulse Rate 126 H 126 H Respiratory Rate 22 H 24 H Respiratory Effort Respiratory Pattern Blood Pressure 121/88 H 106/62 Blood Pressure Mean 99 76 Pulse Ox 95 95 95 Oxygen Delivery Method Room Air Room Air Room Air 07/10/25 00:00 07/10/25 00:04 07/10/25 01:00 Temperature 99.4 F H 99.4 F H Temperature Source Oral Oral Pulse Rate 122 H 130 H 119 H Respiratory Rate 24 H 13 22 H Respiratory Effort Respiratory Pattern Blood Pressure 114/67 116/69 Blood Pressure Mean 82 84 Pulse Ox 98 95 Oxygen Delivery Method Room Air Room Air 07/10/25 01:10 07/10/25 02:00 Temperature 99.4 F H Temperature Source Oral Pulse Rate 112 H 103 H Respiratory Rate 22 H 21 H Respiratory Effort Respiratory Pattern Blood Pressure 109/67 97/74 Blood Pressure Mean 81 81 Pulse Ox 96 97 Oxygen Delivery Method Room Air Room Air Weight Weight: 255 lb 11.779 oz Body Mass Index (BMI) 42.5 Physical Exam Const alert, oriented x3 and no apparent distress Constitutional Narrative: Morbidly obese and chronically ill and appearance. General Appearance: cooperative HEENT normocephalic, head/scalp atraumatic, hearing grossly normal bilaterally and moist oral mucous membranes Eyes PERRL, EOMs intact bilaterally and conjunctivae normal Neck no lymphadenopathy, supple and no JVD Resp normal respiratory effort, no retractions, no use of accessory muscles and clearto auscultation bilaterally Cardio Cardio Narrative: Irregularly irregular at ~103 bpm. GI normal to inspection, nondistended, normoactive bowel sounds, soft to palpation,non-tender and non-distended GI Narrative: Morbidly obese. Extremity Extremity Narrative: ~1+ bilateral lower extremity pitting edema. Skin Skin Narrative: Patient has no evidence of rash. Neuro oriented x3, CN's II-XII intact bilaterally, moves all extremities and no focal motor deficits Sensorium / Orientation: awake, alert, oriented to person, oriented to place andoriented to time Speech: speech normal Psych affect normal Results Medical Records Data Attestation: I reviewed the patient's medical records Lab / Micro Data Attestation: I reviewed the patient's lab results. 07/09/25 22:31 07/09/25 22:31 Labs: Laboratory Results - last 24 hr 07/09/25 22:31: WBC 11.4 H, RBC 2.82 L, Hgb 8.9 L, Hct 28.3 L, MCV 100.4 H, MCH 31.6, MCHC 31.4 L, RDW Std Deviation 55.7 H, RDW Coeff of Espinoza 15.5 H, Plt Count 274, MPV 11.1, Immature Gran % (Auto) 0.700, Neut % (Auto) 78.3 H, Lymph % (Auto) 17.2 L, Hinds % (Auto) 2.7, Eos % (Auto) 0.2, Baso % (Auto) 0.9, Absolute Neuts (auto) 8.9 H, Absolute Lymphs (auto) 1.96, Nucleated RBC % 0.2, Sodium 138, Potassium 4.9, Chloride 102, Carbon Dioxide 18.9 L, Anion Gap 18 H, BUN 37 H, Creatinine 1.11, Estim Creat Clear Calc 52.29, Est GFR (MDRD) Non-Af 51 L, BUN/Creatinine Ratio 33.1 H, Glucose 195 H, Calcium 9.0, Magnesium 1.9, Total Bilirubin 0.31, AST 14, ALT 13, Alkaline Phosphatase 100, Troponin T High Sens 20 H D, NT pro BNP II 2359 H, Total Protein 6.0, Albumin 3.5, Globulin 2.5, Albumin/GlobulinRatio 1.4, Lipase 31, Blood Type A POSITIVE, Antibody Screen NEGATIVE 07/10/25 00:13: Urine Color Yellow, Urine Clarity Clear, Urine pH 6.0, Ur Specific [place] 1.010, Urine Protein 30 H, Urine Glucose (UA) Normal, Urine Ketones Negative, Urine Occult Blood Negative, Urine Nitrite Negative, Urine Bilirubin Negative, Urine Urobilinogen Normal, Ur Leukocyte Esterase Negative, Urine RBC 0 SEEN, Urine WBC 0 SEEN, Ur Squamous Epith Cells 0 SEEN, Urine Bacteria 0 SEEN, Urine Mucus 0 SEEN 07/10/25 00:31: Troponin T Hi Sens 2 Hr 14 Micro: Microbiology 07/09/25 22:31 Stool Stool Occult Blood (FRANSICO) - Final Occult Blood Positive Imaging Radiology Impression Abdomen/Pelvis CT 07/09/25 22:45 IMPRESSION: Interval appearance of mild pericardial effusion. Interval appearance of mild bilateral pleural effusions. Associated passive atelectatic airspace disease of the lower lobes. Hyperdense material is noted in the dependent aspect of the gastric body. Findings may represent acute hemorrhagic products. No precontrast images are provided to evaluate for active bleeding. Obtaining delayed phase images mayincrease the sensitivity of the exam to evaluate the significance of hyperdense material in the gastric lumen. Scattered right renal simple cysts are noted with the largest measuring 1.5 cm. Fat containing umbilical hernia without incarceration. Uncomplicated colonic diverticulosis. Bilateral hip prostheses are noted. Moderate diffuse spondylosis. Unremarkable low lumbar fusion metallic hardware. Unchanged bilateral vascular calcifications in the kidneys. Chronic posterior soft tissue thickening overlying the sacrococcygeal junction, unchanged. Reading [facility] Chest X-Ray 07/09/25 23:19 IMPRESSION: NO ACUTE FINDINGS. Reading [facility] Assessment & Plan Assessment/Plan (1) ABLA (acute blood loss anemia): (2) Melanotic stools: (3) Upper GI bleed: (4) Adverse drug reaction: QUALIFIERS: Encounter type: initial encounter Qualified Code(s): T50.905A - Adverse effect of unspecified drugs, medicaments and biological substances, initial encounter (5) Atrial fibrillation with RVR: (6) Acute exacerbation of chronic heart failure: (7) SCHULTZ (dyspnea on exertion): (8) Fatigue: QUALIFIERS: Fatigue type: unspecified Qualified Code(s): R53.83 -Other fatigue (9) Morbid obesity with BMI of 40.0-44.9, adult: (10) Leukocytosis: QUALIFIERS: Leukocytosis type: unspecified Qualified Code(s): D72.829 - Elevated white blood cell count, unspecified PLAN: Plan 1. ABLA with hemoglobin of 8.9 g/dL present on admission (down from 11.9 g/dL on June 06, 2025) with a confirmatory elevated BUN of 37 mg/dL and normal creatinine of 1.11 mg/dL suggestive of Upper GIBleed - Admit to PCU. Keep strict n.p.o. Continue IV pantoprazole infusion began in ER and Hemoccult stools. Patient already typed and screened with plan to transfuse if hemoglobindrops to less than 7 g/dL. Give ondansetron IV as needed for nausea vomiting. Give acetaminophen OH for [id number] (level 1-5/10) pain or fever. Give morphine IV as needed for severe (level 6-10/10) pain. Finally,we will consultgastroenterology to see this patient on rounds in the a.m. for further recommendations regarding EGD this admission with help appreciated in advance. 2. Adverse Drug Reaction to recently started DOAC added to daily BASA used to treat CAD with corresponding CT scan of the abdomen pelvis that revealed hyperdense material noted in the dependent aspect of the gastric body with findings that may represent Acute Hemorrhage products likely causing #1 with suspected underlying PUD - Hold apixaban until further notice. 3. EKG evidence of Atrial Fibrillation; with RVR that required treatment with IV metoprolol complicating #1 & #2 - We we will give as needed IV digoxin to keep heart rate less than 100 bpm to avoid unnecessarily lowering blood pressure. Check new echocardiogram with last one done here in September 2020 that revealed LVEF ~65% with stage I diastolic dysfunction. 4. Elevated NT pro-BNP II of 2,359 pg/mL present on admission consistent with AE of chronic diastolic CHF; with preserved LVEF with corresponding CT scan revealing interval appearance of mild bilateral pleural effusions with mild pericardial effusion and clinical complaints of SCHULTZ and Fatigue attributable to #1 - #3 - Give furosemide IV daily if blood pressure can tolerate. Serialize troponin. Patient not requiring supplemental oxygen so far with oxygen saturation of 96% on RA. 5. Morbid obesity (class III); with BMI of 42.6 this admission adding to the burden of disease outlined from #1 - #4 - Weight loss will be recommended. TSH pending. This complicates her case and may hamper recovery. 6. Leukocytosis of 11.4 K present on admission suspect to be due to acute stress response with no signs of infection on UA or imaging - Noted. Check CBC daily to follow trend. 7. Former tobacco abuse; with subsequent asthma/COPD - Stable and without evidence of acute flare at this time. Maintain prn nebulizers/inhalers. 8. Essential hypertension; on amlodipine, furosemide, hydrochlorothiazide and metoprolol daily - Hold oral antihypertensives in light of #1. Give hydralazineIV prn for systolic blood pressure > 160 mmHg. 9. Hyperlipidemia; on atorvastatin - Hold statin until she is cleared for oral intake by gastroenterology. 10. Hypothyroidism; on levothyroxine - Restart levothyroxine when possible. 11. History of RA; on methotrexate, sulfasalazine plus as needed prednisone - Hold this regimen fornow and restart when safe to do so. 12. History of squamous cell skin cancer - Noted. 13. Depression with anxiety; on venlafaxine - Restart this agent when able. 14. History of vertigo; on meclizine - Stable. 15. OA; s/p bilateral THR's, bilateral TKR's, Right total shoulder replacement (2014) plus lumbar fusion (2012) with resultant chronic pain syndrome; on prn oxycodone - We will follow pain regimen and scales outlined in #1. 16. DVT/GI prophylaxis - SCD's only in light of ABLA outlined in #1 contraindicating chemoprophylaxis. Patient started on continuous IV pantoprazole infusion for presumed PUD outlined in #1. Total time: Approximately (but not less than) 75 minutes. Charges/Coding Visit Charges Inpatient E&M: 79961 Init Hosp 07/10/25 0350 Cosigner Signature (if applicable): CC: Dr. Bro Johnson, DO; Dr. Marciano Anaya, DO~ Signed [facility]08-31-2025 Discharge summary Author Arlin Guaman [facility] Note Date/Time July 10, 2025 2: 18am [facility] Medical Records Department [address] [place] [address] Emergency Department Summary 07/09/25 MR#: [id number] Acct: [id number] Name: BETSY LEE Rep #:[id number] : 1945 79 From: Arlin Guaman MD PCP: Dr. Marciano Anaya DO Status:REG ER Location: ED HPI History of Present Illness Chief Complaint: Shortness of Breath Narrative Narrative: Patient is a 79-year-old female presenting to the emergency department for dyspnea and melena. Patient has a past medical history of asthma/COPD reports stopped smoking years ago, CAD, obesity and recently diagnosed atrial fibrillation by her primary care doctor. She reports on 07/01 she went to see her primary care doctor due to having chest tightness across the front of her chest and feeling fatigued. She was also experiencing shortness of breath at this time. An EKG was done which showed atrial fibrillation. She was also having lower extremity edema at that time and was placed on Lasix as well as Eliquis. She states that since then the dyspnea has not improved. She denies any chest pain since seeing her physician a week ago. Reports that the shortness of breath is worse with exertion and at rest she does not feel short of breath. Denies feeling any palpitations. Also reports that this evening shedeveloped some epigastric abdominal pain and nausea which is now resolved but did start having melanotic stool yesterday. Again she was just started on Eliquis about a week ago. On review last echo was September 2020 and showed an EF of 65%. She denies any fever, chills, cough, sore throat, chest pain, vomiting, dysuria or hematuria. [facility] Medical History Atrial fibrillation Squamous cell skin cancer Skin lesion of hand Acute kidney injury Acute respiratory failure with hypoxia Lactic acidosis Vision disturbance Chronic pain syndrome Acute blood loss anemia Anxiety and depression Asthma HLD (hyperlipidemia) Morbid obesity GI bleed Hyperkalemia Hypertension History of rheumatoid arthritis Home Medications ?Medication ?Instructions ?Recorded ?Last Taken ?Type albuterol sulfate 90 mcg/actuation 1 - 2 puff inhalati on Q6H PRN PRN 03/15/15 10/09/16 History aerosol inhaler (ProAir HFA) Shortness Of Breath hydrochlorothiazide 25 mg tablet 25 mg PO DAILY BP 04/2409/19/20 11:00 History methotrexate sodium 2.5 mg tablet 20 mg PO MO Rheumato id arthritis 03/15/15 09/18/20 History folic acid 1 mg tablet 1 mg PO DAILY@0800 #0 TABLET S 03/29/15 09/19/20 11:00 Rx losartan 50 mg tablet 50 mg PO DAILY #30 TABLETS 0 03/29/15 09/19/20 11:00 Rx prednisone 10 mg tablet 10 mg PO PRN PRN arthritis f lare up 07/07/19 3 Days Ago History ~09/16/20 sulfasalazine 500 mg tablet 1,000 mg PO BID arthritis 07/07/19 09/19/20 11:00 History venlafaxine 150 mg 150 mg PO DAILY depression/a nxiety 07/07/19 09/19/20 11:00 History capsule,extended release 24 hr vitamins A,C,V-kpax-fnoual 2,148 1 tab PO DAILY EYE HE ALTH 07/07/19 09/19/20 11:00 History mcg-113 mg-45 mg-17.4 mg tablet atorvastatin 20 mg tablet 20 mg PO DAILY CHOLESTEROL 1 11/19/19 09/19/20 11:00 History magnesium oxide 400 mg PO DAILY SUPPLEMENT 1 11/19/19 09/19/20 11:00 History aspirin 81 mg tablet,delayed 81 mg PO DAILY@0800 #30 t abs 09/20/20 Unknown Rx release levothyroxine 100 mcg tablet mcg PO 07/16/23 Unknown H istory meclizine 12.5 mg tablet mg PO 07/16/23 Unknown Histo ry oxycodone-acetaminophen 10 mg-325 tab PO 07/16/23 Unkn own History mg tablet amlodipine 5 mg tablet 5 mg PO DAILY 07/09/25 Unkno wn History apixaban 5 mg tablet (Eliquis) 5 mg PO BID 07/09/25 Un known History atorvastatin 40 mg tablet 40 mg PO DAILY cholesterol 0 07/09/25 Unknown History furosemide 40 mg tablet 40 mg PO DAILY 07/09/25 Unkn own History metoprolol succinate 50 mg 50 mg PO DAILY 07/09/25 Unk nown History tablet,extended release 24 hr Allergy/AdvReac Type Severity Reaction Status Date / Time adhesive Allergy Other Verified 07/09/25 22:26 amoxicillin trihydrate (From Allergy Unknown Verified 07/09/25 22:26 Augmentin) latex Allergy Unknown Verified 07/09/25 22:26 Penicillins Allergy Unknown Verified 07/09/25 22:26 potassium clavulanate (From Allergy Unknown Verified 07/09/25 22:26 Augmentin) tetracycline Allergy Unknown Verified 07/09/25 22:26 Family History Sister Hypertension Brother Heart disease Surgical History History of hand surgery History of reverse total replacement of left shoulder joint History of tonsillectomy History of appendectomy History of tubal ligation History of knee replacement History of hip replacement History of back surgery Status post reverse total replacement of right shoulder Social History Smoking Status: Former smoker alcohol intake: current substance use type: does not use ROS ROS ED ROS Narrative see HPI EXAM Physical Exam Narrative Exam Narrative: Vital signs: Reviewed General: Alert and orientedx3. No acute distress. Chronically ill-appearing HEENT: Head is normocephalic and atraumatic, sinuses nontender, pupils equal round and reactive. Pale conjunctive. Nares are patent. Oropharynx and throat exams normal. Neck: Supple without lymphadenopathy nontender Cardiovascular: Irregularly irregular rate and rhythm, no murmurs. No rubs or gallops. Normal S1 and S2 Respiratory: Clear to auscultation bilaterally. No wheezes, rales, rhonchi. On RA. Abdominal: Soft and mildly tender to palpation in RLQ. Normal bowel sounds. Noguarding or rebound. Nonsurgical abdomen : Done with activity coordinator RN at bedside. No visualized hemorrhoids or fissures. Grossly melanotic stool, no bright red blood noted. Extremities: 1+ pitting edema bilaterally. No asymmetry to the edema. No erythema or warmth of legs. No tenderness. No bruising. Normal range of motion. Normal sensation. Skin: No rash or redness. Neurological: Cranial nerves II through XII are grossly intact. Normal strengthand sensation. Normal cerebellar function The rest of the physical exam is unremarkable Const Vital Signs: 07/09/25 22:27 07/09/25 22:31 07/09/25 22:32 Temperature 98.6 F 98.6 F Temperature Source Oral Oral Pulse Rate 135 H 135 H Respiratory Rate 25 H 25 H Respiratory Effort Short of Breath Respiratory Pattern Tachypnea Blood Pressure 93/55 L 93/55 L Blood Pressure Mean 67 67 Pulse Ox 95 96 Oxygen Delivery Method Room Air Room Air Room Air 07/09/25 22:51 07/09/25 23:31 07/10/25 00:00 Temperature 99.4 F H Temperature Source Oral Pulse Rate 126 H 126 H Respiratory Rate 22 H 24 H Respiratory Effort Respiratory Pattern Blood Pressure 121/88 H 106/62 Blood Pressure Mean 99 76 Pulse Ox 95 95 95 Oxygen Delivery Method Room Air Room Air Room Air 07/10/25 00:00 07/10/25 00:04 07/10/25 01:00 Temperature 99.4 F H 99.4 F H Temperature Source Oral Oral Pulse Rate 122 H 130 H 119 H Respiratory Rate 24 H 13 22 H Respiratory Effort Respiratory Pattern Blood Pressure 114/67 116/69 Blood Pressure Mean 82 84 Pulse Ox 98 95 Oxygen Delivery Method Room Air Room Air 07/10/25 01:10 07/10/25 02:00 Temperature 99.4 F H Temperature Source Oral Pulse Rate 112 H 103 H Respiratory Rate 22 H 21 H Respiratory Effort Respiratory Pattern Blood Pressure 109/67 97/74 Blood Pressure Mean 81 81 Pulse Ox 96 97 Oxygen Delivery Method Room Air Room Air MDM MDM MDM Narrative Medical decision making narrative: Patient is a 79-year-old female presenting to the emergency department for dyspnea and melena. Patient was seen and examined. Vitals are stable. She is in A-fib with a rate of 135. BP is on the lower side at 93/55. She is afebrile. Saturating 95% on room air. Differential includes but is not limited to: CHF exacerbation, COPD exacerbation, ACS, pneumonia, GI bleed EKG shows A-fib with RVR. No ischemic changes noted. small fluid bolus started for mild hypotension and a fib. CBC with a mild leukocytosis of 11.4. Hemoglobin of 8.9, on review dropped from 11.9 on 06/06/25. Fecal occult positive. Protonix given. Type and screen ordered, do not think the patient needs blood products at this time. CMP with an elevated BUN of 37 and BUN/Cr ratio consistent with a upper GI bleed. No GI physician employee communications intern at this time to discuss for possible EGD tomorrow. Mild anion gap of 18. Lipase within normal limits. BNP is similar to previous on 07/05/25 at 2359. Troponin of 20, increased from baseline on 07/01/25 of 11. However would expect this given patient has been in atrial fibrillation for the past week. Reflex of 14. Patient does not appear acutely fluid overloaded on exam. No wheezing, but does have history of COPD. I suspect her GI bleed is what triggered the a fib RVR episode. CT shows hyperdense material in the dependent aspect of the gastric body which may represent acute hemorrhagic products, no other acute findings. Chronic findings that can be seen in the report. Patient's blood pressure was more stable after half a liter of fluids in the 110s systolic. Lopressor 5 mg IVorderedx3. Patients BP tolerated 2 pushes, rate more controlled in the 90s-110s still a fib. With the acute drop in hemoglobin and new onset a fib, patient willrequire admission. Discussed admission with patient and family at bedside. Theyare agreeable. Patient admitted to hospitalist, Dr. Johnson for further management. Clinical impression: A fib with RVR dyspnea UGIB acute on chronic anemia History & Record Review Discussion w/independent historian: Patient and Family Additional record(s) reviewed:: Prior outpatient record, Prior ED visit and Prior labs Lab Data Attestation: I reviewed the patient's lab results. Labs: Laboratory Results - last 24 hr 07/09/25 07/10/25 07/10/25 22:31 00:13 00:31 WBC 11.4 H RBC 2.82 L Hgb 8.9 L Hct 28.3 L MCV 100.4 H MCH 31.6 MCHC 31.4 L RDW Std Deviation 55.7 H RDW Coeff of Espinoza 15.5 H Plt Count 274 MPV 11.1 Immature Gran % (Auto) 0.700 Neut % (Auto) 78.3 H Lymph % (Auto) 17.2 L Hinds % (Auto) 2.7 Eos % (Auto) 0.2 Baso % (Auto) 0.9 Absolute Neuts (auto) 8.9 H Absolute Lymphs (auto) 1.96 Nucleated RBC % 0.2 Sodium 138 Potassium 4.9 Chloride 102 Carbon Dioxide 18.9 L Anion Gap 18 H BUN 37 H Creatinine 1.11 Estim Creat Clear Calc 52.29 Est GFR (MDRD) Non-Af 51 L BUN/Creatinine Ratio 33.1 H Glucose 195 H Calcium 9.0 Magnesium 1.9 Total Bilirubin 0.31 AST 14 ALT 13 Alkaline Phosphatase 100 Troponin T High Sens 20 H D Troponin T Hi Sens 2 Hr 14 NT pro BNP II 2359 H Total Protein 6.0 Albumin 3.5 Globulin 2.5 Albumin/Globulin Ratio 1.4 Lipase 31 Urine Color Yellow Urine Clarity Clear Urine pH 6.0 Ur Specific [place] 1.010 Urine Protein 30 H Urine Glucose (UA) Normal Urine Ketones Negative Urine Occult Blood Negative Urine Nitrite Negative Urine Bilirubin Negative Urine Urobilinogen Normal Ur Leukocyte Esterase Negative Urine RBC 0 SEEN Urine WBC 0 SEEN Ur Squamous Epith Cells 0 SEEN Urine Bacteria 0 SEEN Urine Mucus 0 SEEN Blood Type A POSITIVE Antibody Screen NEGATIVE Radiography Chest X-Ray - ED: 2 View, Read by ED Physician, Normal, No Acute Disease and No Infiltrates Diagnostic Testing: Clinical Impression(s) from Imaging Studies Abdomen/Pelvis CT 07/09/25 22:45 IMPRESSION: Interval appearance of mild pericardial effusion. Interval appearance of mild bilateral pleural effusions. Associated passive atelectatic airspace disease of the lower lobes. Hyperdense material is noted in the dependent aspect of the gastric body. Findings may represent acute hemorrhagic products. No precontrast images are provided to evaluate for active bleeding. Obtaining delayed phase images may increase the sensitivity of the exam to evaluate the significance of hyperdense material in the gastric lumen. Scattered right renal simple cysts are noted with the largest measuring 1.5 cm. Fat containing umbilical hernia without incarceration. Uncomplicated colonic diverticulosis. Bilateral hip prostheses are noted. Moderate diffuse spondylosis. Unremarkable low lumbar fusion metallic hardware. Unchanged bilateral vascular calcifications in the kidneys. Chronic posterior soft tissue thickening overlying the sacrococcygeal junction, unchanged. Reading Location: [place] [address] Chest X-Ray 07/09/25 23:19 IMPRESSION: NO ACUTE FINDINGS. Reading Location: [facility] Discharge Plan Triage Chief Complaint: Shortness of Breath ED Provider: Arlin Guaman Dx/Rx/DC Orders Prescriptions: No Action oxycodone-acetaminophen 10-325 mg tablet [...] release 24hr 150 mg PO DAILY vitamins A,C,P-wurp-mrvyol 1 EACH tablet 1 tab PO DAILY atorvastatin 20 MG tablet 20 mg PO DAILY magnesium oxide 400 MG tablet 400 mg PO DAILY aspirin 81 MG tablet 81 mg PO DAILY@0800 Qty: 30 0RF furosemide 40 mg tablet 40 mg PO DAILY atorvastatin 40 mg tablet 40 mg PO DAILY metoprolol succinate 50 mg tablet extended release 24 hr 50 mg PO DAILY amlodipine 5 mg tablet 5 mg PO DAILY Eliquis 5 mg tablet 5 mg PO BID Primary Care Provider: Marciano Anaya Referrals: Marciano Anaya DO [Primary Care Provider] - Print Language: Moldovan What to do if you have Problems For any increased pain, shortness of breath, bleeding, nausea or vomiting, chestpain, or any unexpected problems, contact your Primary Care Provider. Call [facility] ([phone]) or report to the closest Emergency Room. Call 911 if necessary. 07/10/25217 <Electronically signed by Arlin Guaman MD> Cosigner Signature (if applicable): CC: Dr. Marciano Anaya DO ~ Signed [facility] Work Phone: 1(179) 284-804408-31-2025 Evaluation note* Diagnosis Onset Date Resolution Status Admit Date ABLA (acute blood loss anemia) acute July 10, 2025 2:17am Acute exacerbation of chroni c heart failure acute July 10 2:17am Adverse drug reaction acute Jun 2:17am Atrial fibrillation with RVR acute July 10, 2025 2:17am SCHULTZ (dyspnea on exertion) acute July 10, 2025 2:17am Fatigue acute July 10, 2 025 2:17am Leukocytosis acute July 10, 2025 2:17am Melanotic stools acute June 122024 2:17am Morbid obesity with BMI of 40.0-44.9, adult acute July 10 2:17am Upper GI bleed acute June 2:17am [facility] Work Phone: [phone]) 741-173208-31-2025 Evaluation note* Diagnosis Onset Date Resolution Status Admit Date ABLA (acute blood loss anemia) acute July 10, 2025 2:17am Acute exacerbation of chroni c heart failure acute July 10 2:17am Adverse drug reaction acute Jun 2:17am Atrial fibrillation with RVR acute July 10, 2025 2:17am SCHULTZ (dyspnea on exertion) acute July 10, 2025 2:17am Fatigue acute July 10, 025 2:17am Leukocytosis acute July 10, 2025 2:17am Melanotic stools acute June 122024 2:17am Morbid obesity with BMI of 40.0-44.9, adult acute July 10 2:17am Upper GI bleed acute June 2:17am TRUMAN (acute kidney injury) acute July 12, 2025 10:39pm [facility] Work Phone: [phone] 179-895508-31-2025 Evaluation note* Diagnosis Onset Date Resolution Status Admit Date ABLA (acute blood loss anemia) inact mel July 10, 2025 2:17am Acute exacerbation of chroni c heart failure inactive July 10 2:17am Adverse drug reaction inactive Jun 2:17am Atrial fibrillation with RVR inactiv e July 10, 2025 2:17am SCHULTZ (dyspnea on exertion) inactive July 10, 2025 2:17am Fatigue inactive July 10, 025 2:17am Leukocytosis inactive July 10, 2025 2:17am Melanotic stools inactive June 122024 2:17am Morbid obesity with BMI of 40.0-44.9, adult inactive July 10 2:17am Upper GI bleed inactive June 2:17am TRUMAN (acute kidney injury) acute July 12, 2025 10:39pm History of upper gastrointestinal bleeding acute 2024 10:39pm [facility] Work Phone: 1([phone]) 915-707708-31-2025 Discharge summary [facility] Medical Records Department [address] [place] [address] Emergency Department Summary 07/09/25 MR#: [id number] Acct: [id number] Name: BETSY LEE Rep #:[id number] : 1945 79 From: Arlin Guaman MD PCP: Dr. Marciano Anaya, DO Status:REG ER Location: ED HPI History of Present Illness Chief Complaint: Shortness of Breath Narrative Narrative: Patient is a 79-year-old female presenting to the emergency department for dyspnea and melena. Patient has a past medical history of asthma/COPD reports stopped smoking years ago, CAD, obesity and recently diagnosed atrial fibrillation by her primary care doctor. She reports on 07/01 she went to seeher primary care doctor due to having chest tightness across the front of her chest and feeling fatigued. She was also experiencing shortness of breath at this time. An EKG was done which showed atrial fibrillation. She was also having lower extremity edema at that time and was placed on Lasix as well as Eliquis. She states that since then the dyspnea has not improved. She denies any chest pain since seeing her physician a week ago. Reports that the shortness of breath is worse with exertion and at rest she does not feel short of breath. Denies feeling any palpitations. Also reports that thisevening shedeveloped some epigastric abdominal pain and nausea which is now resolved but did start having melanotic stool yesterday. Again she was just started on Eliquis about a week ago. On review last echo was September 2020 and showed an EF of 65%. She denies any fever, chills, cough, sore throat, chest pain, vomiting, dysuria or hematuria. [facility] Medical History Atrial fibrillation Squamous cell skin cancer Skin lesion of hand Acute kidney injury Acute respiratory failure with hypoxia Lactic acidosis Vision disturbance Chronic pain syndrome Acute blood loss anemia Anxiety and depression Asthma HLD (hyperlipidemia) Morbid obesity GI bleed Hyperkalemia Hypertension History of rheumatoid arthritis Home Medications ?Medication ?Instructions ?Recorded ?Last Taken ?Type albuterol sulfate 90 mcg/actuation 1 - 2 puff inhalati on Q6H PRN PRN 03/15/15 10/09/16 History aerosol inhaler (ProAir HFA) Shortness Of Breath hydrochlorothiazide 25 mg tablet 25 mg PO DAILY BP 04/2409/19/20 11:00 History methotrexate sodium 2.5 mg tablet 20 mg PO MO Rheumato id arthritis 03/15/15 09/18/20 History folic acid 1 mg tablet 1 mg PO DAILY@0800 #0 TABLET S 03/29/15 09/19/20 11:00 Rx losartan 50 mg tablet 50 mg PO DAILY #30 TABLETS 0 03/29/15 09/19/20 11:00 Rx prednisone 10 mg tablet 10 mg PO PRN PRN arthritis f lare up 07/07/19 3 Days Ago History ~09/16/20 sulfasalazine 500 mg tablet 1,000 mg PO BID arthritis 07/07/19 09/19/20 11:00 History venlafaxine 150 mg 150 mg PO DAILY depression/a nxiety 07/07/19 09/19/20 11:00 History capsule,extended release 24 hr vitamins A,C,N-evam-ekugnz 2,148 1 tab PO DAILY EYE HE ALTH 07/07/19 09/19/20 11:00 History mcg-113 mg-45 mg-17.4 mg tablet atorvastatin 20 mg tablet 20 mg PO DAILY CHOLESTEROL 1 11/19/19 09/19/20 11:00 History magnesium oxide 400 mg PO DAILY SUPPLEMENT 1 11/19/19 09/19/20 11:00 History aspirin 81 mg tablet,delayed 81 mg PO DAILY@0800 #30 t abs 09/20/20 Unknown Rx release levothyroxine 100 mcg tablet mcg PO 07/16/23 Unknown H istory meclizine 12.5 mg tablet mg PO 07/16/23 Unknown Histo ry oxycodone-acetaminophen 10 mg-325 tab PO 07/16/23 Unkn own History mg tablet amlodipine 5 mg tablet 5 mg PO DAILY 07/09/25 Unkno wn History apixaban 5 mg tablet (Eliquis) 5 mg PO BID 07/09/25 Un known History atorvastatin 40 mg tablet 40 mg PO DAILY cholesterol 0 07/09/25 Unknown History furosemide 40 mg tablet 40 mg PO DAILY 07/09/25 Unkn own History metoprolol succinate 50 mg 50 mg PO DAILY 07/09/25 Unk nown History tablet,extended release 24 hr Allergy/AdvReac Type Severity Reaction Status Date / Time adhesive Allergy Other Verified 07/09/25 22:26 amoxicillin trihydrate (From Allergy Unknown Verified 07/09/25 22:26 Augmentin) latex Allergy Unknown Verified 07/09/25 22:26 Penicillins Allergy Unknown Verified 07/09/25 22:26 potassium clavulanate (From Allergy Unknown Verified 07/09/25 22:26 Augmentin) tetracycline Allergy Unknown Verified 07/09/25 22:26 Family History Sister Hypertension Brother Heart disease Surgical History History of hand surgery History of reverse total replacement of left shoulder joint History of tonsillectomy History of appendectomy History of tubal ligation History of knee replacement History of hip replacement History of back surgery Status post reverse total replacement of right shoulder Social History Smoking Status: Former smoker alcohol intake: current substance use type: does not use ROS ROS ED ROS Narrative see HPI EXAM Physical Exam Narrative Exam Narrative: Vital signs: Reviewed General: Alert and orientedx3. No acute distress. Chronically ill-appearing HEENT: Head is normocephalic and atraumatic, sinuses nontender, pupils equal round and reactive. Pale conjunctive. Nares are patent. Oropharynx and throat exams normal. Neck: Supple without lymphadenopathy nontender Cardiovascular: Irregularly irregular rate and rhythm, no murmurs. No rubs or gallops. Normal S1 and S2 Respiratory: Clear to auscultation bilaterally. No wheezes, rales, rhonchi. On RA. Abdominal: Soft and mildly tender to palpation in RLQ. Normal bowel sounds. Noguarding or rebound. Nonsurgical abdomen : Done with activity coordinator RN at bedside. No visualized hemorrhoids or fissures. Grossly melanotic stool, no bright red blood noted. Extremities: 1+ pitting edema bilaterally. No asymmetry to the edema. No erythema or warmth of legs. No tenderness. No bruising. Normal range of motion. Normal sensation. Skin: No rash or redness. Neurological: Cranial nerves II through XII are grossly intact. Normal strengthand sensation. Normal cerebellar function The rest of the physical exam is unremarkable Const Vital Signs: 07/09/25 22:27 07/09/25 22:31 07/09/25 22:32 Temperature 98.6 F 98.6 F Temperature Source Oral Oral Pulse Rate 135 H 135 H Respiratory Rate 25 H 25 H Respiratory Effort Short of Breath Respiratory Pattern Tachypnea Blood Pressure 93/55 L 93/55 L Blood Pressure Mean 67 67 Pulse Ox 95 96 Oxygen Delivery Method Room Air Room Air Room Air 07/09/25 22:51 07/09/25 23:31 07/10/25 00:00 Temperature 99.4 F H Temperature Source Oral Pulse Rate 126 H 126 H Respiratory Rate 22 H 24 H Respiratory Effort Respiratory Pattern Blood Pressure 121/88 H 106/62 Blood Pressure Mean 99 76 Pulse Ox 95 95 95 Oxygen Delivery Method Room Air Room Air Room Air 07/10/25 00:00 07/10/25 00:04 07/10/25 01:00 Temperature 99.4 F H 99.4 F H Temperature Source Oral Oral Pulse Rate 122 H 130 H 119 H Respiratory Rate 24 H 13 22 H Respiratory Effort Respiratory Pattern Blood Pressure 114/67 116/69 Blood Pressure Mean 82 84 Pulse Ox 98 95 Oxygen Delivery Method Room Air Room Air 07/10/25 01:10 07/10/25 02:00 Temperature 99.4 F H Temperature Source Oral Pulse Rate 112 H 103 H Respiratory Rate 22 H 21 H Respiratory Effort Respiratory Pattern Blood Pressure 109/67 97/74 Blood Pressure Mean 81 81 Pulse Ox 96 97 Oxygen Delivery Method Room Air Room Air MDM MDM MDM Narrative Medical decision making narrative: Patient is a 79-year-old female presenting to the emergency department for dyspnea and melena. Patient was seen and examined. Vitals are stable. She is in A-fib with a rate of 135. BP is on the lowerside at 93/55. She is afebrile. Saturating 95% on room air. Differential includes but is not limited to: CHF exacerbation, COPD exacerbation, ACS, pneumonia, GI bleed EKG shows A-fib with RVR. No ischemic changes noted. small fluid bolus started for mild hypotensionand a fib. CBC with a mild leukocytosis of 11.4. Hemoglobin of 8.9, on review dropped from 11.9 on 06/06/25. Fecal occult positive. Protonix given. Type and screen ordered, do not think the patient needs blood products at this time. CMP with an elevated BUN of 37 and BUN/Cr ratio consistent with a up per GI bleed. No GI physician employee communications intern at this time to discuss for possible EGD tomorrow. Mild aniongap of 18. Lipase within normal limits. BNP is similar to previous on 07/05/25 at 2359. Troponin of 20, increased from baseline on 07/01/25 of 11. However would expect this given patient has been in atrial fibrillation for the past week. Reflex of 14. Patient does not appear acutely fluid overloaded on exam. No wheezing, but does have history of COPD. I suspect her GI bleed is what triggered the a fib RVR episode. CT shows hyperdense material in the dependent aspect of the gastric body which may represent acute hemorrhagic products, no other acute findings. Chronic findings that can be seen in the report. Patient's blood pressure was more stable after half a liter of fluids in the 110s systolic. Lopressor 5 mg IVorderedx3. Patients BP tolerated 2 pushes, rate more controlled in the 90s-110sstill a fib. With the acute drop in hemoglobin and new onset a fib, patient willrequire admission. Discussed admission with patient and family at bedside. Theyare agreeable. Patient admitted to hospitalist, Dr. Johnson for further management. Clinical impression: A fib with RVR dyspnea UGIB acute on chronic anemia History & Record Review Discussion w/independent historian: Patient and Family Additional record(s) reviewed:: Prior outpatient record, Prior ED visit and Prior labs Lab Data Attestation: I reviewed the patient's lab results. Labs: Laboratory Results - last 24 hr 07/09/25 07/10/25 07/10/25 22:31 00:13 00:31 WBC 11.4 H RBC 2.82 L Hgb 8.9 L Hct 28.3 L MCV 100.4 H MCH 31.6 MCHC 31.4 L RDW Std Deviation 55.7 H RDW Coeff of Espinoza 15.5 H Plt Count 274 MPV 11.1 Immature Gran % (Auto) 0.700 Neut % (Auto) 78.3 H Lymph % (Auto) 17.2 L Hinds % (Auto) 2.7 Eos % (Auto) 0.2 Baso % (Auto) 0.9 Absolute Neuts (auto) 8.9 H Absolute Lymphs (auto) 1.96 Nucleated RBC % 0.2 Sodium 138 Potassium 4.9 Chloride 102 Carbon Dioxide 18.9 L Anion Gap 18 H BUN 37 H Creatinine 1.11 Estim Creat Clear Calc 52.29 Est GFR (MDRD) Non-Af 51 L BUN/Creatinine Ratio 33.1 H Glucose 195 H Calcium 9.0 Magnesium 1.9 Total Bilirubin 0.31 AST 14 ALT 13 Alkaline Phosphatase 100 Troponin T High Sens 20 H D Troponin T Hi Sens 2 Hr 14 NT pro BNP II 2359 H Total Protein 6.0 Albumin 3.5 Globulin 2.5 Albumin/Globulin Ratio 1.4 Lipase 31 Urine Color Yellow Urine Clarity Clear Urine pH 6.0 Ur Specific [place] 1.010 Urine Protein 30 H Urine Glucose (UA) Normal Urine Ketones Negative Urine Occult Blood Negative Urine Nitrite Negative Urine Bilirubin Negative Urine Urobilinogen Normal Ur Leukocyte Esterase Negative Urine RBC 0 SEEN Urine WBC 0 SEEN Ur Squamous Epith Cells 0 SEEN Urine Bacteria 0 SEEN Urine Mucus 0 SEEN Blood Type A POSITIVE Antibody Screen NEGATIVE Radiography Chest X-Ray - ED: 2 View, Read by ED Physician, Normal, No Acute Disease and No Infiltrates Diagnostic Testing: Clinical Impression(s) from Imaging Studies Abdomen/Pelvis CT 07/09/25 22:45 IMPRESSION: Interval appearance of mild pericardial effusion. Interval appearance of mild bilateral pleural effusions. Associated passive atelectatic airspace disease of the lower lobes. Hyperdense material is noted in the dependent aspect of the gastric body. Findings may represent acute hemorrhagic products. No precontrast images are provided to evaluate for active bleeding. Obtaining delayed phase images mayincrease the sensitivity of the exam to evaluate the significance of hyperdense material in the gastric lumen. Scattered right renal simple cysts are noted with the largest measuring 1.5 cm. Fat containing umbilical hernia without incarceration. Uncomplicated colonic diverticulosis. Bilateral hip prostheses are noted. Moderate diffuse spondylosis. Unremarkable low lumbar fusion metallic hardware. Unchanged bilateral vascular calcifications in the kidneys. Chronic posterior soft tissue thickening overlying the sacrococcygeal junction, unchanged. Reading [facility] Chest X-Ray 07/09/25 23:19 IMPRESSION: NO ACUTE FINDINGS. Reading Location: [facility] Discharge Plan Triage Chief Complaint: Shortness of Breath ED Provider: Arlin Guaman Dx/Rx/DC Orders Prescriptions: No Action oxycodone-acetaminophen 10-325 mg tablet [...] release 24hr 150 mg PO DAILY vitamins A,C,N-ufgk-chsxzb 1 EACH tablet 1 tab PO DAILY atorvastatin 20 MG tablet 20 mg PO DAILY magnesium oxide 400 MG tablet 400 mg PO DAILY aspirin 81 MG tablet 81 mg PO DAILY@0800 Qty: 30 0RF furosemide 40 mg tablet 40 mg PO DAILY atorvastatin 40 mg tablet 40 mg PO DAILY metoprolol succinate 50 mg tablet extended release 24 hr 50 mg PO DAILY amlodipine 5 mg tablet 5 mg PO DAILY Eliquis 5 mg tablet 5 mg PO BID Primary Care Provider: Marciano Anaya Referrals: Marciano Anyaa DO [Primary Care Provider] - Print Language: Moldovan What to do if you have Problems For any increased pain, shortness of breath, bleeding, nausea or vomiting, chestpain, or any unexpected problems, contact your Primary Care Provider. Call [facility] ([phone]) or report tothe closest Emergency Room. Call 911 if necessary. 07/10/25 0218 Cosigner Signature (if applicable): CC: Dr. Marciano Anaya DO ~ Signed [facility]08-31-2025 Radiology Diagnostic study note [facility] Imaging Services [address] [place] [address] Abdomen/Pelvis W IV Cont ONLY MR#: [id number] Acct: [id number] Name: BETSY LEE Rep #: [id number] : 1945 F 79 From: Jose L Marshall MD PCP: Dr. Marciano Anaya DO Status: REG ER Study:Abdomen/Pelvis W IV Cont ONLY Date of E xam: 07/09/25 Exam# [id number] Ordering Dr: Sameer Guaman MD PROCEDURE: ABDOMEN/PELVIS W IV CONT ONLY 07/09/2025 REASON FOR EXAM: ABDOMINAL PAIN, NAUSEA, MELENA TECHNIQUE: Procedure Code: CTABDPELIV Modality: CT Procedure: ABDOMEN/PELVIS W IV CONT ONLY Coronal and Sagittal reconstruction series were provided. CONTRAST: Isovue-350 VOLUME: 100 mL One or more dose reduction techniques were used (e.g., Automated exposure control, adjustment of the mA and/or kV according to patient size, use of iterative reconstruction technique. RADIATION DOSE SUMMARY: CTDlvol: 33.7 mGy DLP: 1738 mGycm COMPARISON: CT scan on 12/06/2020. FINDINGS: Interval appearance of mild pericardial effusion. Interval appearance of mild bilateral pleural effusions. Associated passive atelectatic airspace disease of the lower lobes. Hyperdense material is noted in the dependent aspect of the gastric body. Findings may represent acute hemorrhagic products. No precontrast images are provided to evaluate for active bleeding. Obtaining delayed phase images mayincrease the sensitivity of the exam. Scattered right renal simple cysts are noted with the largest measuring 1.5 cm. Fat containing umbilical hernia without incarceration. Uncomplicated colonic diverticulosis. Bilateral hip prostheses are noted. Moderate diffuse spondylosis. Unremarkable low lumbar fusion metallic hardware. Unchanged bilateral vascular calcifications in the kidneys. Chronic posterior soft tissue thickening overlying the sacrococcygeal junction, unchanged. Normal liver. Normal gallbladder and extrahepatic biliary system. Normal spleen. Normal pancreas. Normal bilateral adrenal glands. Normal size of the right kidney. There is no right renal mass. There are no right renal calculi. There is no right hydronephrosis. Normal visualized right ureter. Normal size of the left kidney. There is no left renal mass. There are no leftrenal calculi. There is no left hydronephrosis. Normal visualized left ureter. Normal small intestine. The appendix is visualized and appears normal. There is no demonstrated peritoneal fluid. Calcified atheromatous plaques of the abdominal aorta. Normal inferior vena cava. Normal retroperitoneum. There is no pelvic mass lesion or lymphadenopathy. There is no pelvic fluid. CT/Abdomen/Pelvis W IV Cont ONLY IMPRESSION: Interval appearance of mild pericardial effusion. Interval appearance of mild bilateral pleural effusions. Associated passive atelectatic airspace disease of the lower lobes. Hyperdense material is noted in the dependent aspect of the gastric body. Findings may represent acute hemorrhagic products. No precontrast images are provided to evaluate for active bleeding. Obtaining delayed phase images mayincrease the sensitivity of the exam to evaluate the significance of hyperdense material in the gastric lumen. Scattered right renal simple cysts are noted with the largest measuring 1.5 cm. Fat containing umbilical hernia without incarceration. Uncomplicated colonic diverticulosis. Bilateral hip prostheses are noted. Moderate diffuse spondylosis. Unremarkable low lumbar fusion metallic hardware. Unchanged bilateral vascular calcifications in the kidneys. Chronic posterior soft tissue thickening overlying the sacrococcygeal junction, unchanged. Reading Location: [facility] CC: Dr. Arlin Guaman MD; Dr. Marciano Anaya, DO ~ Air Hose Coupler: Signed [facility]08-31-2025 Radiology Diagnostic study note [facility] Imaging Services [address] [place] [address] Chest PA and Lateral MR#: [id number] Acct: [id number] Name: BETSY LEE Rep #: [id number] : 1945 F 79 From: Leonard Hooks MD PCP: Dr. Marciano Anaya DO Status: REG ER Study:Chest PA and Lateral Date of Exam: 07/09/25 Exam# [id number] Ordering Dr: Sameer Guaman MD PROCEDURE: CHEST PA AND LATERAL 07/09/2025 REASON FOR EXAM: CHEST PAIN TECHNIQUE: Procedure Code: RADCXR Modality: DX Procedure: CHEST PA AND LATERAL COMPARISON: 02/17/2020 FINDINGS: Hardware: None. Heart: The heart size is normal. Mediastinum: The mediastinal contour is unremarkable. Lungs: The lungs are clear. Bones: Bilateral shoulder arthroplasty. No acute fractures. RAD/Chest PA and Lateral IMPRESSION: NO ACUTE FINDINGS. Reading Location: [facility] CC: Dr. Arlin Guaman MD; Dr. Marciano Anaya DO ~ Air Hose Coupler: Signed [facility]08-30-2025 Discharge summary Author Arlin Guaman [facility] Note Date/Time July 10, 2025 2: 18am [facility] Medical Records Department [address] [place] [address] Emergency Department Summary 07/09/25 MR#: [id number] Acct: [id number] Name: BETSY LEE Rep #:[id number] : 1945 79 From: Arlin Guaman MD PCP: Dr. Marciano Anaya DO Status:REG ER Location: ED HPI History of Present Illness Chief Complaint: Shortness of Breath Narrative Narrative: Patient is a 79-year-old female presenting to the emergency department for dyspnea and melena. Patient has a past medical history of asthma/COPD reports stopped smoking years ago, CAD, obesity and recently diagnosed atrial fibrillation by her primary care doctor. She reports on 07/01 she went to see her primary care doctor due to having chest tightness across the front of her chest and feeling fatigued. She was also experiencing shortness of breath at this time. An EKG was done which showed atrial fibrillation. She was also having lower extremity edema at that time and was placed on Lasix as well as Eliquis. She states that since then the dyspnea has not improved. She denies any chest pain since seeing her physician a week ago. Reports that the shortness of breath is worse with exertion and at rest she does not feel short of breath. Denies feeling any palpitations. Also reports that this evening shedeveloped some epigastric abdominal pain and nausea which is now resolved but did start having melanotic stool yesterday. Again she was just started on Eliquis about a week ago. On review last echo was September 2020 and showed an EF of 65%. She denies any fever, chills, cough, sore throat, chest pain, vomiting, dysuria or hematuria. [facility] Medical History Atrial fibrillation Squamous cell skin cancer Skin lesion of hand Acute kidney injury Acute respiratory failure with hypoxia Lactic acidosis Vision disturbance Chronic pain syndrome Acute blood loss anemia Anxiety and depression Asthma HLD (hyperlipidemia) Morbid obesity GI bleed Hyperkalemia Hypertension History of rheumatoid arthritis Home Medications ?Medication ?Instructions ?Recorded ?Last Taken ?Type albuterol sulfate 90 mcg/actuation 1 - 2 puff inhalati on Q6H PRN PRN 03/15/15 10/09/16 History aerosol inhaler (ProAir HFA) Shortness Of Breath hydrochlorothiazide 25 mg tablet 25 mg PO DAILY BP 04/2409/19/20 11:00 History methotrexate sodium 2.5 mg tablet 20 mg PO MO Rheumato id arthritis 03/15/15 09/18/20 History folic acid 1 mg tablet 1 mg PO DAILY@0800 #0 TABLET S 03/29/15 09/19/20 11:00 Rx losartan 50 mg tablet 50 mg PO DAILY #30 TABLETS 0 03/29/15 09/19/20 11:00 Rx prednisone 10 mg tablet 10 mg PO PRN PRN arthritis f lare up 07/07/19 3 Days Ago History ~09/16/20 sulfasalazine 500 mg tablet 1,000 mg PO BID arthritis 07/07/19 09/19/20 11:00 History venlafaxine 150 mg 150 mg PO DAILY depression/a nxiety 07/07/19 09/19/20 11:00 History capsule,extended release 24 hr vitamins A,C,Y-bxaw-kxywxx 2,148 1 tab PO DAILY EYE HE ALTH 07/07/19 09/19/20 11:00 History mcg-113 mg-45 mg-17.4 mg tablet atorvastatin 20 mg tablet 20 mg PO DAILY CHOLESTEROL 1 11/19/19 09/19/20 11:00 History magnesium oxide 400 mg PO DAILY SUPPLEMENT 1 11/19/19 09/19/20 11:00 History aspirin 81 mg tablet,delayed 81 mg PO DAILY@0800 #30 t abs 09/20/20 Unknown Rx release levothyroxine 100 mcg tablet mcg PO 07/16/23 Unknown H istory meclizine 12.5 mg tablet mg PO 07/16/23 Unknown Histo ry oxycodone-acetaminophen 10 mg-325 tab PO 07/16/23 Unkn own History mg tablet amlodipine 5 mg tablet 5 mg PO DAILY 07/09/25 Unkno wn History apixaban 5 mg tablet (Eliquis) 5 mg PO BID 07/09/25 Un known History atorvastatin 40 mg tablet 40 mg PO DAILY cholesterol 0 07/09/25 Unknown History furosemide 40 mg tablet 40 mg PO DAILY 07/09/25 Unkn own History metoprolol succinate 50 mg 50 mg PO DAILY 07/09/25 Unk nown History tablet,extended release 24 hr Allergy/AdvReac Type Severity Reaction Status Date / Time adhesive Allergy Other Verified 07/09/25 22:26 amoxicillin trihydrate (From Allergy Unknown Verified 07/09/25 22:26 Augmentin) latex Allergy Unknown Verified 07/09/25 22:26 Penicillins Allergy Unknown Verified 07/09/25 22:26 potassium clavulanate (From Allergy Unknown Verified 07/09/25 22:26 Augmentin) tetracycline Allergy Unknown Verified 07/09/25 22:26 Family History Sister Hypertension Brother Heart disease Surgical History History of hand surgery History of reverse total replacement of left shoulder joint History of tonsillectomy History of appendectomy History of tubal ligation History of knee replacement History of hip replacement History of back surgery Status post reverse total replacement of right shoulder Social History Smoking Status: Former smoker alcohol intake: current substance use type: does not use ROS ROS ED ROS Narrative see HPI EXAM Physical Exam Narrative Exam Narrative: Vital signs: Reviewed General: Alert and orientedx3. No acute distress. Chronically ill-appearing HEENT: Head is normocephalic and atraumatic, sinuses nontender, pupils equal round and reactive. Pale conjunctive. Nares are patent. Oropharynx and throat exams normal. Neck: Supple without lymphadenopathy nontender Cardiovascular: Irregularly irregular rate and rhythm, no murmurs. No rubs or gallops. Normal S1 and S2 Respiratory: Clear to auscultation bilaterally. No wheezes, rales, rhonchi. On RA. Abdominal: Soft and mildly tender to palpation in RLQ. Normal bowel sounds. Noguarding or rebound. Nonsurgical abdomen : Done with activity coordinator RN at bedside. No visualized hemorrhoids or fissures. Grossly melanotic stool, no bright red blood noted. Extremities: 1+ pitting edema bilaterally. No asymmetry to the edema. No erythema or warmth of legs. No tenderness. No bruising. Normal range of motion. Normal sensation. Skin: No rash or redness. Neurological: Cranial nerves II through XII are grossly intact. Normal strengthand sensation. Normal cerebellar function The rest of the physical exam is unremarkable Const Vital Signs: 07/09/25 22:27 07/09/25 22:31 07/09/25 22:32 Temperature 98.6 F 98.6 F Temperature Source Oral Oral Pulse Rate 135 H 135 H Respiratory Rate 25 H 25 H Respiratory Effort Short of Breath Respiratory Pattern Tachypnea Blood Pressure 93/55 L 93/55 L Blood Pressure Mean 67 67 Pulse Ox 95 96 Oxygen Delivery Method Room Air Room Air Room Air 07/09/25 22:51 07/09/25 23:31 07/10/25 00:00 Temperature 99.4 F H Temperature Source Oral Pulse Rate 126 H 126 H Respiratory Rate 22 H 24 H Respiratory Effort Respiratory Pattern Blood Pressure 121/88 H 106/62 Blood Pressure Mean 99 76 Pulse Ox 95 95 95 Oxygen Delivery Method Room Air Room Air Room Air 07/10/25 00:00 07/10/25 00:04 07/10/25 01:00 Temperature 99.4 F H 99.4 F H Temperature Source Oral Oral Pulse Rate 122 H 130 H 119 H Respiratory Rate 24 H 13 22 H Respiratory Effort Respiratory Pattern Blood Pressure 114/67 116/69 Blood Pressure Mean 82 84 Pulse Ox 98 95 Oxygen Delivery Method Room Air Room Air 07/10/25 01:10 07/10/25 02:00 Temperature 99.4 F H Temperature Source Oral Pulse Rate 112 H 103 H Respiratory Rate 22 H 21 H Respiratory Effort Respiratory Pattern Blood Pressure 109/67 97/74 Blood Pressure Mean 81 81 Pulse Ox 96 97 Oxygen Delivery Method Room Air Room Air MDM MDM MDM Narrative Medical decision making narrative: Patient is a 79-year-old female presenting to the emergency department for dyspnea and melena. Patient was seen and examined. Vitals are stable. She is in A-fib with a rate of 135. BP is on the lower side at 93/55. She is afebrile. Saturating 95% on room air. Differential includes but is not limited to: CHF exacerbation, COPD exacerbation, ACS, pneumonia, GI bleed EKG shows A-fib with RVR. No ischemic changes noted. small fluid bolus started for mild hypotension and a fib. CBC with a mild leukocytosis of 11.4. Hemoglobin of 8.9, on review dropped from 11.9 on 06/06/25. Fecal occult positive. Protonix given. Type and screen ordered, do not think the patient needs blood products at this time. CMP with an elevated BUN of 37 and BUN/Cr ratio consistent with a upper GI bleed. No GI physician employee communications intern at this time to discuss for possible EGD tomorrow. Mild anion gap of 18. Lipase within normal limits. BNP is similar to previous on 07/05/25 at 2359. Troponin of 20, increased from baseline on 07/01/25 of 11. However would expect this given patient has been in atrial fibrillation for the past week. Reflex of 14. Patient does not appear acutely fluid overloaded on exam. No wheezing, but does have history of COPD. I suspect her GI bleed is what triggered the a fib RVR episode. CT shows hyperdense material in the dependent aspect of the gastric body which may represent acute hemorrhagic products, no other acute findings. Chronic findings that can be seen in the report. Patient's blood pressure was more stable after half a liter of fluids in the 110s systolic. Lopressor 5 mg IVorderedx3. Patients BP tolerated 2 pushes, rate more controlled in the 90s-110s still a fib. With the acute drop in hemoglobin and new onset a fib, patient willrequire admission. Discussed admission with patient and family at bedside. Theyare agreeable. Patient admitted to hospitalist, Dr. Johnson for further management. Clinical impression: A fib with RVR dyspnea UGIB acute on chronic anemia History & Record Review Discussion w/independent historian: Patient and Family Additional record(s) reviewed:: Prior outpatient record, Prior ED visit and Prior labs Lab Data Attestation: I reviewed the patient's lab results. Labs: Laboratory Results - last 24 hr 07/09/25 07/10/25 07/10/25 22:31 00:13 00:31 WBC 11.4 H RBC 2.82 L Hgb 8.9 L Hct 28.3 L MCV 100.4 H MCH 31.6 MCHC 31.4 L RDW Std Deviation 55.7 H RDW Coeff of Espinoza 15.5 H Plt Count 274 MPV 11.1 Immature Gran % (Auto) 0.700 Neut % (Auto) 78.3 H Lymph % (Auto) 17.2 L Hinds % (Auto) 2.7 Eos % (Auto) 0.2 Baso % (Auto) 0.9 Absolute Neuts (auto) 8.9 H Absolute Lymphs (auto) 1.96 Nucleated RBC % 0.2 Sodium 138 Potassium 4.9 Chloride 102 Carbon Dioxide 18.9 L Anion Gap 18 H BUN 37 H Creatinine 1.11 Estim Creat Clear Calc 52.29 Est GFR (MDRD) Non-Af 51 L BUN/Creatinine Ratio 33.1 H Glucose 195 H Calcium 9.0 Magnesium 1.9 Total Bilirubin 0.31 AST 14 ALT 13 Alkaline Phosphatase 100 Troponin T High Sens 20 H D Troponin T Hi Sens 2 Hr 14 NT pro BNP II 2359 H Total Protein 6.0 Albumin 3.5 Globulin 2.5 Albumin/Globulin Ratio 1.4 Lipase 31 Urine Color Yellow Urine Clarity Clear Urine pH 6.0 Ur Specific [place] 1.010 Urine Protein 30 H Urine Glucose (UA) Normal Urine Ketones Negative Urine Occult Blood Negative Urine Nitrite Negative Urine Bilirubin Negative Urine Urobilinogen Normal Ur Leukocyte Esterase Negative Urine RBC 0 SEEN Urine WBC 0 SEEN Ur Squamous Epith Cells 0 SEEN Urine Bacteria 0 SEEN Urine Mucus 0 SEEN Blood Type A POSITIVE Antibody Screen NEGATIVE Radiography Chest X-Ray - ED: 2 View, Read by ED Physician, Normal, No Acute Disease and No Infiltrates Diagnostic Testing: Clinical Impression(s) from Imaging Studies Abdomen/Pelvis CT 07/09/25 22:45 IMPRESSION: Interval appearance of mild pericardial effusion. Interval appearance of mild bilateral pleural effusions. Associated passive atelectatic airspace disease of the lower lobes. Hyperdense material is noted in the dependent aspect of the gastric body. Findings may represent acute hemorrhagic products. No precontrast images are provided to evaluate for active bleeding. Obtaining delayed phase images may increase the sensitivity of the exam to evaluate the significance of hyperdense material in the gastric lumen. Scattered right renal simple cysts are noted with the largest measuring 1.5 cm. Fat containing umbilical hernia without incarceration. Uncomplicated colonic diverticulosis. Bilateral hip prostheses are noted. Moderate diffuse spondylosis. Unremarkable low lumbar fusion metallic hardware. Unchanged bilateral vascular calcifications in the kidneys. Chronic posterior soft tissue thickening overlying the sacrococcygeal junction, unchanged. Reading [facility] Chest X-Ray 07/09/25 23:19 IMPRESSION: NO ACUTE FINDINGS. Reading Location[facility] Discharge Plan Triage Chief Complaint: Shortness of Breath ED Provider: Arlin Guaman Dx/Rx/DC Orders Prescriptions: No Action oxycodone-acetaminophen 10-325 mg tablet [...] release 24hr 150 mg PO DAILY vitamins A,C,G-nvqt-pisozh 1 EACH tablet 1 tab PO DAILY atorvastatin 20 MG tablet 20 mg PO DAILY magnesium oxide 400 MG tablet 400 mg PO DAILY aspirin 81 MG tablet 81 mg PO DAILY@0800 Qty: 30 0RF furosemide 40 mg tablet 40 mg PO DAILY atorvastatin 40 mg tablet 40 mg PO DAILY metoprolol succinate 50 mg tablet extended release 24 hr 50 mg PO DAILY amlodipine 5 mg tablet 5 mg PO DAILY Eliquis 5 mg tablet 5 mg PO BID Primary Care Provider: Marciano Anaya Referrals: Marciano Anaya DO [Primary Care Provider] - Print Language: Moldovan What to do if you have Problems For any increased pain, shortness of breath, bleeding, nausea or vomiting, chestpain, or any unexpected problems, contact your Primary Care Provider. Call [facility] ([phone]) or report to the closest Emergency Room. Call 911 if necessary. 07/10/25217 <Electronically signed by Arlin Guaman MD> Cosigner Signature (if applicable): CC: Dr. Marciano Anaya DO ~ Signed [facility] Work Phone: 1(831) 147-624405-25-2025 Hospital Discharge instructionsAdditional Instructions Increase your metoprolol to 2 tablets (100 mg total) daily starting 07/15/25 [facility]: [facility] Phone: 1([phone]) 127-942905-17-2025 Radiology Diagnostic study note [facility] Imaging Services [address] [place], [place] [id number] HIP, UNI W/ Pelvis 2-3 Views MR#: [id number] Acct: [id number] Name: BETSY LEE Rep #: [id number] : 1945 F 79 From: Trevor Tadeo MD PCP: Dr. Marciano Anaya DO Status: REG CLI Study:HIP, UNI W/ Pelvis 2-3 Views Date of Ex am: 03/25/25 Exam# [id number] Ordering Dr: Amina Palomo MD PROCEDURE: HIP, [...] Views IMPRESSION: Findings as above. Reading Location: [facility] CC: Dr. Marciano Anaya DO; Dr. Amina Palomo MD ~ Air Hose Coupler: Signed [facility]04-09-2025 Radiology Diagnostic study note [facility] Imaging Services [address] [place] [address] Chest PA and Lateral MR#: [id number] Acct: [id number] Name: BETSY LEE Rep #: [id number] : 1945 F 79 From: Alma Delia Yee MD PCP: Dr. Marciano Anaya DO Status: REG CLI Study:Chest PA and Lateral Date of Exam: 02/16/25 Exam# [id number] Ordering Dr: Marciano Anaya DO PROCEDURE: CHEST [...] 2. Additional description as above. Reading Location: [facility] CC: Dr. Marciano Anaya DO ~ Air Hose Coupler: Signed [facility]05-12-2024 Discharge summary Author Michael Quintanilla [facility] March 21, 2024 10:13pm Note Date/Time March 21, 2024 9:23p m [facility] Medical Records Department [address] [place] [address] Emergency Department Summary 03/21/24 MR#: [id number] Acct: [id number] Name: BETSY LEE Rep #:[id number] : 1945 78 From: Michael Quintanilla MD PCP: Dr. Marciano Anaya, DO Status:REG ER Location: ED HPI <CHENTE Mendez - Last Filed: 03/21/24 21:58> History [...] pain or other injury. Tetanus Immunization: Unknown [facility] <CHENTE Mendez - Last Filed: 03/21/24 21:58> [facility] Medical History Acute blood loss [...] 07/07/19 [History Last Taken 09/19/20 11:00] vitamins A,C,M-gsxz-vhxnug 2,148 mcg-113 mg-45 mg-17.4 mg tablet 1 [...] substance use type: does not use ROS <CHENTE Mendez - Last Filed: 03/21/24 21:58> ROS ED Constitutional Constitutional ED: Denies chills or fever(s) Cardiovascular Cardiovascular: Denies chest pain Respiratory/Chest Respiratory/Chest: Denies cough or dyspnea Gastrointestinal Gastrointestinal: Denies abdominal pain, nausea or vomiting Musculoskeletal Musculoskeletal: Denies arthralgias or myalgias Integumentary Reports Abrasions Neurologic Neurologic: Reports headache(s); Denies weakness EXAM <CHENTE Mendez - Last Filed: 03/21/24 21:58> Physical [...] Delivery Method Room Air Room Air MDM <CHENTE Mendez - Last Filed: 03/21/24 21:58> MDM MDM Narrative Medical decision making narrative: Patient presenting due to a mechanical fall and head injury that occurred this evening. She was able to get up and ambulate after the fall. She is well- appearing and in no acute distress. She is [...] Quintanilla MD - Last Filed: 03/21/24 22:13> [facility] Radiography Diagnostic Testing: Clinical Impression(s) from Imaging [...] release 24hr 150 mg PO DAILY vitamins A,C,U-cxti-lrflls 1 EACH tablet 1 tab PO DAILY atorvastatin 20 MG tablet 20 mg PO DAILY magnesium oxide 400 MG tablet 400 mg PO DAILY aspirin 81 MG tablet 81 mg PO DAILY@0800 Qty: 30 0RF Primary Care Provider: Marciano Anaya Referrals: Marciano Anaya, [Primary Care Provider] - 5-7 Days Activity Restrictions/Additional Instructions: Follow-up with your PCP, return for any concerning signs or symptoms. Disposition Disposition: Home, Self Care What to do if you have Problems For any increased pain, shortness of breath, bleeding, nausea or vomiting, chestpain, or any unexpected problems, contact your Primary Care Provider. Call [facility] ([phone]) or report to the closest Emergency Room. Call 911 if necessary. 03/21/242212 <Electronically signed by Michael Quintanilla MD> Cosigner Signature (if applicable): 03/21/242156 <Electronically signed by Luisa ELDRIDGE> CC: Dr. Marciano Anaya, DO ~ Signed [facility] Work Phone: Discharge summary Author Marciano Castellanos [facility] Note Date/Time July 14, 2025 10:43am [facility] Medical Records Department [address] [place] [address] Instructions for Home/Discharge Instructions 07/14/25 1036 MR#: [id number] Acct: [id number] Name: BETSY LEE Geovany Rep #:[id number] : 1945 79 From: Marciano Castellanos DO PCP: Dr. Marciano Anaya DO Status:ADM IN Discharge Instructions DC O2, CPAP, BIPAP needs Home O2 Discharge instructions: No Dressing / Incision Discharge Activity: Return to Normal Activity Weight Bearing Status: Full weight bearing Follow Up Care Test Results: Test results from this visit will be discussed in further detail at your follow- up appointment, if applicable. Discharge Plan Admission Admit Date/Time: 07/12/25 22:39 Primary Reason for Your Visit: Acute kidney injury Attending Provider: Marciano Castellanos Primary Care Provider: Marciano Anaya Consulting Providers: Courtney Rader Instructions Additional Instructions / Restrictions: Increase your metoprolol to 2 tablets (100 mg total) daily starting 07/15/25 Discharge Orders/Prescriptions Prescriptions: New metoprolol succinate 50 mg Tablet Extended Release 24 Hr 100 mg PO DAILY Qty: 60 0RF Continued oxycodone-acetaminophen 10-325 mg tablet 1 tab PO Q8H PRN (Reason: pain) Patient Comments: TAKE 1 TABLET BY MOUTH THREE TIMES DAILY NEEDED levothyroxine 100 mcg tablet 100 mcg PO DAILY meclizine 12.5 mg tablet 12.5 mg PO DAILY methotrexate sodium 2.5 MG tablet 20 mg PO MO Patient Comments: Rheumatoid Arthritis - on Mondays albuterol sulfate [ProAir HFA] 1 PUFF inhaler [...] up) Rx Instructions: for arthritis flare up venlafaxine 150 MG capsule,extended release 24hr 150 mg PO DAILY vitamins A,C,Y-niau-assonb 1 EACH tablet 1 tab PO DAILY magnesium oxide 400 MG tablet 400 mg PO DAILY atorvastatin 40 mg tablet 40 mg PO DAILY nystatin 100,000 unit/gram Powder 1 applic topical BID Qty: 15 0RF Protocol: *Topical Application Instructions APPLICATION INSTRUCTIONS: axillary and abd folds pantoprazole [Protonix] 40 mg tablet,delayed release (DR/EC) 40 mg PO BID Qty: 60 0RF amlodipine 5 mg tablet 5 mg PO DAILY budesonide-formoterol [Symbicort] 80-4.5 mcg/actuation HFA aerosol inhaler 1 puff inhalation Q12H Held Eliquis 5 mg tablet 5 mg PO BID Hold Instructions: Resume on 07/19/25. Discontinued furosemide 40 mg tablet 40 mg PO DAILY metoprolol succinate 50 mg tablet extended release 24 hr 50 mg PO DAILY Referrals / Follow Up: Marciano Anaya DO [Primary Care Provider] - In 1 Week Disposition Disposition (needs filled in before D/C Order can be placed): Home, Self Care 07/14/25 1043<Electronically signed by Marciano Castellanos DO>Marciano Castellanos DO CC: Dr. Courtney Rader MD; Dr. 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 Ulnar neuropathy at elbow of right upper extremity acute [facility] Work Phone: Evaluation note* Diagnosis Onset Date Resolution Status Admit Date ABLA (acute blood loss anemia) acute July 10, 2025 2:17am Acute exacerbation of chroni c heart failure acute July 10 2:17am Adverse drug reaction acute Jun us2024 2:17am Atrial fibrillation with RVR acute July 10, 2025 2:17am SCHULTZ (dyspnea on exertion) acute July 10, 2025 2:17am Fatigue acute July 10 025 2:17am Leukocytosis acute July 10, 2025 2:17am Melanotic stools acute June 122024 2:17am Morbid obesity with BMI of 40.0-44.9, adult acute July 10 2:17am Upper GI bleed acute June 2:17am [facility] Work Phone: Hospital Discharge instructions Additional Instructions Follow-up with your PCP, return for any concerning signs or symptoms.[facility] Work Phone: Reason for referral (narrative)No reason for referral information [facility] Work Phone: Chief Complaint and Reason for [...] COPY PCP June 06, 2025 1:13 pm Chief Complaint Admit Date S/O- PAIN- COPY PCP March 18, 2025 1:46pm LEFT HIP PAIN March 25, 2025 1:10p m S/O-PAIN- COPY PCP June 06, 2025 1:13 pm AE CHF, AFIB; WITH RVR AND SUSPECTED GIB ON DOAC July 10, 2025 2:17am Reason for Visit Admit Date ABLA (acute blood loss anemia) July 102024 2:17am Acute exacerbation of chronic heart fail ure July 10, 2025 2:17am Adverse drug reaction July 10, 2025 2:17am Atrial fibrillation with RVR June 2:17am SCHULTZ (dyspnea on exertion) July 10, 025 2:17am Fatigue July 10, 2025 2: 17am Leukocytosis July 10, 2025 2: 17am Melanotic stools July 10, 2025 2: 17am Morbid obesity with BMI of 40.0-44.9, ad ult July 10, 2025 2:17am Upper GI bleed July 10, 2025 2: 17am Chief Complaint Admit Date S/O- PAIN- COPY PCP March 18, 2025 1:46pm LEFT HIP PAIN March 25, 2025 1:10p m S/O-PAIN- COPY PCP June 06, 2025 1:13 pm AE CHF, AFIB; WITH RVR AND SUSPECTED GIB ON DOAC July 10, 2025 2:17am AE CHF, AFIB; WITH RVR AND SUSPECTED GIB ON DOAC July 10, 2025 2:26am AE CHF, AFIB; WITH RVR AND SUSPECTED GIB ON DOAC July 10, 2025 1:51pm AE CHF, AFIB; WITH RVR AND SUSPECTED GIB ON DOAC July 11, 2025 3:49pm Chief Complaint Admit Date S/O- PAIN- COPY PCP March 18, 2025 1:46pm LEFT HIP PAIN March 25, 2025 1:10p m S/O-PAIN- COPY PCP June 06, 2025 1:13 pm AE CHF, AFIB; WITH RVR AND SUSPECTED GIB ON DOAC July 10, 2025 2:17am AE CHF, AFIB; WITH RVR AND SUSPECTED GIB ON DOAC July 10, 2025 2:26am AE CHF, AFIB; WITH RVR AND SUSPECTED GIB ON DOAC July 10, 2025 1:51pm AE CHF, AFIB; WITH RVR AND SUSPECTED GIB ON DOAC July 11, 2025 3:49pm LH/DIZZINESS, DIARRHEA, TRUMAN July 10:39pm Reason for Visit Admit Date ABLA (acute blood loss anemia) July 102024 2:17am Acute exacerbation of chronic heart fail ure July 10, 2025 2:17am Adverse drug reaction July 10, 2025 2:17am Atrial fibrillation with RVR June 2:17am SCHULTZ (dyspnea on exertion) July 10, 2:17am Fatigue July 10, 2025 2: 17am Leukocytosis July 10, 2025 2: 17am Melanotic stools July 10, 2025 2: 17am Morbid obesity with BMI of 40.0-44.9, ad ult July 10, 2025 2:17am Upper GI bleed July 10, 2025 2: 17am TRUMAN (acute kidney injury) July 12, 2025 10:39pm Chief Complaint Admit Date S/O- PAIN- COPY PCP March 18, 2025 1:46pm LEFT HIP PAIN March 25, 2025 1:10p m S/O-PAIN- COPY PCP June 06, 2025 1:13 pm AE CHF, AFIB; WITH RVR AND SUSPECTED GIB ON DOAC July 10, 2025 2:17am AE CHF, AFIB; WITH RVR AND SUSPECTED GIB ON DOAC July 10, 2025 2:26am AE CHF, AFIB; WITH RVR AND SUSPECTED GIB ON DOAC July 10, 2025 1:51pm AE CHF, AFIB; WITH RVR AND SUSPECTED GIB ON DOAC July 11, 2025 3:49pm LH/DIZZINESS, DIARRHEA, TRUMAN July 10:39pm LH/DIZZINESS, DIARRHEA, TRUMAN July 5:57pm Reason for Visit Admit Date ABLA (acute blood loss anemia) July 102024 2:17am Acute exacerbation of chronic heart fail ure July 10, 2025 2:17am Adverse drug reaction July 10, 2025 2:17am Atrial fibrillation with RVR June 2:17am SCHULTZ (dyspnea on exertion) July 10 2:17am Fatigue July 10, 2025 2: 17am Leukocytosis July 10, 2025 2: 17am Melanotic stools July 10, 2025 2: 17am Morbid obesity with BMI of 40.0-44.9, ad ult July 10, 2025 2:17am Upper GI bleed July 10, 2025 2: 17am TRUMAN (acute kidney injury) July 12, 2025 10:39pm History of upper gastrointestinal bleedi ng July 12, 2025 10:39pm Family History No Family History Records Found Relationship Condition Age at Onset Recorded Date/T giovanna sister Hypertension Unknown brother Cardiac disease Unknown Relationship Condition Age at Onset Recorded Date/T giovanna sister Hypertension Unknown brother Cardiac disease Unknown mother Diabetes mellitus Unknown Cardiac disease Unknown Hypertension Unknown Cerebrovascular accident (CVA) Unknown Malignant neoplasm of skin Unknown father Malignant neoplasm of prostate Unknown Advance Directives No Advanced Directives Records Found Advance Directive Response Recorded Date/ Time Advance Directives No October 10, 2016 2:17am Living Will Yes December 07 12:33am Power of Wedding Coordinator No December 07, 2020 12:33am Advance Directive Response Recorded Date/ Time Advance Directives No October 10, 2016 1:17am Living Will Yes December 06 11:33pm Power of Wedding Coordinator No December 06, 2020 11:33pm Advance Directive Response Recorded Date/ Time Advance Directives No October 10, 2016 2:17am Living Will No March 21, 2024 8 :34pm Power of Wedding Coordinator No March 21, 2024 8:34pm Advance Directive Response Recorded Date/ Time Advance Directives No October 10, 2016 2:17am Advance Directive Response Recorded Date/ Time Do you have a Healthcare Power of Wedding Coordinator? Yes July 09, 2025 10:27pm Advance Directives No October 10, 2016 2:17am Advance Directive Response Recorded Date/ Time Do you have a Healthcare Power of Wedding Coordinator? Yes July 10, 2025 3:40am Advance Directives No October 10, 2016 2:17am Advance Directive Response Recorded Date/ Time Do you have a Healthcare Power of Wedding Coordinator? Yes July 10, 2025 3:40am Do you have a Healthcare Power of Wedding Coordinator? Yes July 12, 2025 9:35pm Name of Medical Power of Wedding Coordinator chino manley July 12, 2025 9:35pm Advance Directives No October 10, 2016 2:17am Advance Directive Response Recorded Date/ Time Do you have a Healthcare Pow er of Wedding Coordinator? Yes July 10, 2025 3:40am Do you have a Healthcare Pow er of Wedding Coordinator? Yes July 12, 2025 11:20pm Name of Medical Power of Wedding Coordinator chino manley July 12, 2025 9:35pm Advance Directives No October 10, 2016 2:17am [...] Inactive Member Role Status Dates Dr. Marciano Aanya DO Primary Care Provider Active Dr. Michael [...] Attending Provider Active Start: July 05, 2025 Team Status: Active Member Role/Relationship Status Dates Dr. Marciano Anaya DO Primary Care Provider Active Start: July 10, 2025 Dr. Arlin Guaman MD Emergency Provider Active S tart: July 10, 2025 Dr. Bro Johnson DO Admit Provider Active Start: July 10, 2025 Dr. Bro Johnson DO Attending Provider Active Start: July 10, 2025 Team Status: Inactive Member Role/Relationship Status Dates Dr. Marciano Anaya DO Primary Care Provider Active Start: July 10, 2025 End: July 12, 2025 Dr. Arlin Guaman MD Emergency Provider Active S tart: July 10, 2025 End: July 12, 2025 Dr. Bro Johnson DO Admit Provider Active Start: July 10, 2025 End: July 12, 2025 Dr. Bro Johnson DO Other Provider Active Start: July 10, 2025 End: July 12, 2025 Dr. Dakota Delarosa MD Other Provider Active Sta rt: July 10, 2025 End: July 12, 2025 Dr. Cuauhtemoc Mccallum , Other Provider Active St art: July 10, 2025 End: July 12, 2025 Anna Hernandez NP-C Other Provider Active Start : July 10, 2025 End: July 12, 2025 Vicki Luna NP-Carmen Other Provider Active St art: July 10, 2025 End: July 12, 2025 CHENTE Cook Other Provider Active Star t: July 10, 2025 End: July 12, 2025 Dr. Marciano Castellanos DO Attending Provider Active Start: July 10, 2025 End: July 12, 2025 Dr. Pieter Hu , Other Provider Active Start: July 10, 2025 End: July 12, 2025 Team Status: Active Member Role/Relationship Status Dates Dr. Marciano Anaya DO Primary Care Provider Active Start: July 10, 2025 Dr. Arlin Guaman MD Emergency Provider Active S tart: July 10, 2025 Dr. Bro de Salo , DO Admit Provider Active Start: July 10, 2025 Dr. Bro Johnson , DO Attending Provider Active Start: July 10, 2025 Dr. Bro Johnson , DO Other Provider Active Start: July 10, 2025 Team Status: Active Member Role/Relationship Status Dates Dr. Marciano Anaya , DO Primary Care Provider Active Start: July 10, 2025 Dr. Arlin Guaman MD Emergency Provider Active S tart: July 10, 2025 Dr. Bro Johnson , DO Admit Provider Active Start: July 10, 2025 Dr. Bro Johnson , DO Other Provider Active Start: July 10, 2025 Dr. Dakota Delarosa MD Other Provider Active Sta rt: July 10, 2025 Dr. Cuauhtemoc Mccallum , DO Attending Provider Active Start: July 10, 2025 Dr. Cuauhtemoc Mccallum , DO Other Provider Active St art: July 10, 2025 FAUSTO Thrasher Other Provider Active Start : July 10, 2025 FAUSTO Fowler Other Provider Active St art: July 10, 2025 CHENTE Cook Other Provider Active Star t: July 10, 2025 Dr. Marciano Castellanos , DO Other Provider Active S tart: July 10, 2025 Dr. Pieter Hu , Other Provider Active Start: July 10, 2025 Team Status: Active Member Role/Relationship Status Dates Dr. Marciano Anaya , DO Primary Care Provider Active Start: July 11, 2025 Dr. Arlin Guaman MD Emergency Provider Active S tart: July 11, 2025 Dr. Bro Johnson , DO Admit Provider Active Start: July 11, 2025 Dr. Bro Johnson , DO Other Provider Active Start: July 11, 2025 Dr. Dakota Delarosa MD Other Provider Active Sta rt: July 11, 2025 Dr. Cuauhtemoc Mccallum , DO Other Provider Active St art: July 11, 2025 FAUSTO Thrasher Other Provider Active Start : July 11, 2025 FAUSTO Fowler Other Provider Active St art: July 11, 2025 CHENTE Cook Other Provider Active Star t: July 11, 2025 Dr. Marciano Castellanos , Attending Provider Active Start: July 11, 2025 Dr. Marciano Castellanos DO Other Provider Active S tart: July 11, 2025 Dr. Pieter Hu DO Other Provider Active Start: July 11, 2025 Team Status: Inactive Member Role/Relationship Status Dates Dr. Marciano Anaya DO Primary Care Provider Active Start: July 05, 2025 End: July 05, 2025 Dr. Marciano Anaya DO Attending Provider Active Start: July 05, 2025 End: July 05, 2025 Team Status: Active Member Role/Relationship Status Dates Dr. Marciano Anaya DO Primary Care Provider Active Start: July 12, 2025 Dr. Tiffanie Hutchinson DO Emergency Provider Active Start: July 12, 2025 Dr. Courtney Rader MD Admit Provider Active St art: July 12, 2025 Dr. Courtney Rader MD Attending Provider Active Start: July 12, 2025 Team Status: Inactive Member Role/Relationship Status Dates Dr. Marciano Anaya DO Primary Care Provider Active Start: July 12, 2025 End: July 14, 2025 Dr. Tiffanie Hutchinson DO Emergency Provider Active Start: July 12, 2025 End: July 14, 2025 Dr. Courtney Rader MD Admit Provider Active St art: July 12, 2025 End: July 14, 2025 Dr. Courtney Rader MD Other Provider Active St art: July 12, 2025 End: July 14, 2025 Dr. Marciano Castellanos DO Attending Provider Active Start: July 12, 2025 End: July 14, 2025 Team Status: Active Member Role/Relationship Status Dates Dr. Marciano Anaya DO Primary Care Provider Active Start: July 13, 2025 Dr. Tiffanie Hutchinson DO Emergency Provider Active Start: July 13, 2025 Dr. Courtney Rader MD Admit Provider Active St art: July 13, 2025 Dr. Courtney Rader MD Other Provider Active St art: July 13, 2025 Dr. Marciano Castellanos DO Attending Provider Active Start: July 13, 2025 Dr. Marciano Castellanos DO Other Provider Active S tart: July 13, 2025 INFORMATION SOURCE (unrecogn ized section and content) DATE CREATED AUTHOR 07/31/2025 [facility] FOR RECORDS PERTAINING TO PATIENTS WHO ARE [...] BE BASED ON THE PRIMARY CLINICAL RECORDS. [facility] [employer] [facility]. provides no warranty or guarantee of the accuracy or completeness of information in this document.
--- NOTE | 2025-08-05 17:17 | CT_ITS ---
PROCEDURE: ABDOMEN/PELVIS W IV CONT ONLY 08/05/2025 REASON FOR EXAM: LOWER ABD PAIN TECHNIQUE: Procedure Code: [id number] Modality: CT Procedure: ABDOMEN/PELVIS W IV CONT ONLY Coronal and Sagittal reconstruction series were provided. CONTRAST: Amount not specified One or more dose reduction techniques were used (e.g., Automated exposure control, adjustment of the mA and/or kV according to patient size, use of iterative reconstruction technique. RADIATION DOSE SUMMARY: CTDlvol: 24 mGy DLP: 2065 mGycm COMPARISON: 07/09/2025 FINDINGS: Moderate right and small left pleural effusion. Trace pericardial effusion. No liver masses. Normal gallbladder. Normal spleen. No pancreatic mass or inflammation. There has been prior lumbar fusion. Left kidney without stone or hydronephrosis. Indeterminate hypodense lesion in the right kidney measuring 1.4 cm with a similar lesion in the lower pole. Recommend pre and post contrast-enhanced CT. Fat containing hernia Streak artifact in the pelvis from hip arthroplasties. No bowel obstruction. No abscess. CT/Abdomen/Pelvis W IV Cont ONLY IMPRESSION: No acute abnormality. See above comments. Reading Location[facility]
[2025-08-05 17:35] LABS: Anion Gap 12 (5-15); BUN 11 mg/dL (4-19); BUN/Creat Ratio 13.8 RATIO (10-20); Calcium,Total 8.8 mg/dL (7.6-11.0); Carbon Dioxide 22.8 mmol/L (21.0-32.0); Chloride 105 mmol/L (98-108); Estimated Creatinine Clearance 73.99 ml/min (50-250); Glucose 111 mg/dL (70-99); Potassium 3.6 mmol/L (3.3-5.1); Troponin T High Sensitivity 14 ng/L (<=14)
[2025-08-05 18:27] LABS: AST(SGOT) 21 U/L (<=31); Alanine Aminotransfer ALT/SGPT 16 U/L (<=34); Albumin, Serum 3.5 g/dL (3.4-4.8); Alkaline Phosphatase 108 U/L (35-104); Bilirubin, Direct 0.29 mg/dL (0.00-0.30); Globulin 2.6 g/dL (2.2-4.2)
--- NOTE | 2025-08-05 19:00 | CT_ITS ---
PROCEDURE: CTA CHEST W/WO CONTRAST 08/05/2025 REASON FOR EXAM: A FIB, RECENT ADMIT, RULE OUT PE TECHNIQUE: Procedure Code: [id number] Modality: CT Procedure: CTA CHEST W/WO CONTRAST Multidetector CT angiography of the chest with intravenous contrast including multiplanar and post-processed maximum intensity projection (MIP) were generated and interpreted. CONTRAST: Isovue 370 VOLUME: 100 mL One or more dose reduction techniques were used (e.g., Automated exposure control, adjustment of the mA and/or kV according to patient size, use of iterative reconstruction technique). RADIATION DOSE SUMMARY: DLP: 1218.65 MGycm COMPARISON: None available FINDINGS: Opacification of the pulmonary arterial tree is adequate. Pulmonary artery and thoracic vessels: There are no filling defects in the central pulmonary arteries. The main pulmonary artery is top-normal in size. The thoracic aorta is normal in caliber. Atherosclerotic plaque along the aortic arch contributes to mild luminal narrowing. Pulmonary parenchyma: Compressive atelectasis at the lung bases. Airways: The central airways are patent. Pleural space: Moderate right and small left pleural effusion. No pneumothorax. Heart and pericardium: The heart is normal in size. Trace pericardial effusion. Mediastinum and evelyn: Unremarkable. Osseous structures: No aggressive osseous lesion. Degenerative changes of the thoracic spine. Upper visualized abdomen: Please refer to CT of the abdomen/pelvis of the same day for abdominal findings. CT/CTA Chest W/WO Contrast IMPRESSION: No evidence for pulmonary embolism. Moderate right and small left pleural effusions with associated compressive ate lectasis. Reading Location: [id number]
[2025-08-05 19:37] LABS: Mucous, Urine 0 SEEN /hpf (<or=2+)
[2025-08-05 19:53] LABS: Troponin T High Sens 2 HR 13 ng/L (<=14)
[2025-08-05 20:30] LABS: Pro- Brain NATRIURETIC PEPTIDE 2339 pg/mL (<=1800)
[2025-08-05 20:42] LABS: Color, Urine Yellow (Yellow); Glucose, Dipstick Normal (Normal); Ketone-Dipstick Negative (Negative); Leukocyte Esterase-Dipstick 500 /ul (Negative); Nitrite-Dipstick Negative (Negative); Occult Blood-Urine 50 /ul (Negative); Protein-Dipstick 30 mg/dl (Negative); Specific Gravity, Urine 1.010 (1.002-1.030); Urine Bilirubin Dipstick Negative (Negative)
[2025-08-05 20:54] LABS: Troponin T High Sens 4 HR 20 ng/L (<=14)
[2025-08-05 21:13] LABS: Red Blood Cells-Urine 5-10 SEEN /hpf (0-5)
[2025-08-05 21:14] LABS: Squamous Epithelial Cells - UA 5-10 SEEN /hpf (5-10)
--- NOTE | 2025-08-05 22:42 | HP.PCM.HOS_ITS ---
[facility] - General General Date of Admission: 08/05/25 Date of Service: 08/05/25 Chief Complaint: SOB and LE Edema. [facility] Narrative SEVERIANO LEE, is a 79 F with a past medical history of essential hypertension; on amlodipine, furosemide, hydrochlorothiazide and metoprolol daily, hyperlipidemia; on atorvastatin, hypothyroidism; on levothyroxine, morbid obesity (class III); with BMI of 44 this admission, history of CAD; previoulsy on baby aspirin daily, recently diagnosed atrial fibrillation; on apixaban twice daily, former tobacco abuse; with subsequent asthma/COPD, history of RA; on methotrexate, sulfasalazine plus as needed prednisone, history of squamous cell skin cancer, depression with anxiety; on venlafaxine, history of vertigo; on meclizine and OA; s/p bilateral THR's, bilateral TKR's, Right total shoulder replacement (2014) plus lumbar fusion (2012) with resultant chronic pain syndrome; on oxycodone as needed and recent admission here from July 10, 2025 to July 12, 2025 for treatment of acute upper GI bleed due to gastric ulcers likely triggered by adverse drug reaction to combination of apixaban and aspirin with patient subsequently returning the same day complaining of severe diarrhea debility and weakness with TRUMAN that was treated conservatively with IV fluid with patient subsequently discharged on July 14, 2025 who now re-presents to [facility] ER complaining of shortness of breath and lower extremity edema. Ms. Lee reports her symptoms began few days prior to admission with a gradual-onset of bilateral lower extremity edema that progressively worsened. She also admits to associated dyspnea on exertion so she decided to come in for further evaluation and treatment. In the ER she was noted to have a NT pro-BNP II of 2,339 pg/mL present on admission with a corresponding chest CTA with and without contrast that revealed no evidence for pulmonary embolism with moderate Right and small Left pleural effusions and associated compressive atelectasis consistent with AE CHF; with preserved LVEF of ~65% followed by CT scan of the abdomen pelvis with IV contrast that showed no acute abnormality complicated by UA positive for evidence of Acute Cystitis; with microscopic hematuria in the setting of chronic atrial fibrillation. She was then admitted to the PCU for ongoing care for stay that is expected to extend beyond 2 midnights [facility] Medical History (Updated 08/06/25 @ 02:[address] Bro Gustafson, DO) Morbid obesity with BMI of 40.0-44.9, adult Acute exacerbation of chronic heart failure History of upper gastrointestinal bleeding TRUMAN (acute kidney injury) Fatigue SCHULTZ (dyspnea on exertion) Leukocytosis Atrial fibrillation with RVR Adverse drug reaction Upper GI bleed Melanotic stools ABLA (acute blood loss anemia) Atrial fibrillation Squamous cell skin cancer Skin lesion of hand Acute kidney injury Acute respiratory failure with hypoxia Lactic acidosis Vision disturbance Chronic pain syndrome Acute blood loss anemia Anxiety and depression Asthma HLD (hyperlipidemia) Morbid obesity GI bleed Hyperkalemia Hypertension History of rheumatoid arthritis Home Medications ?Medication ?Instructions ?Recorded ?Last Taken ?Type albuterol sulfate 90 mcg/actuation 1 - 2 puff inhalati on Q6H PRN PRN 03/15/15 10/09/16 History aerosol inhaler (ProAir HFA) Shortness Of Breath methotrexate sodium 2.5 mg tablet 20 mg PO MO Rheumato id arthritis 03/15/15 09/18/20 History folic acid 1 mg tablet 1 mg PO DAILY@0800 supplemen t #0 03/29/15 09/19/20 11:00 Rx TABLETS prednisone 10 mg tablet 10 mg PO PRN PRN arthritis f lare up 07/07/19 3 Days Ago History ~09/16/20 venlafaxine 150 mg 150 mg PO DAILY depression/a nxiety 07/07/19 09/19/20 11:00 History capsule,extended release 24 hr vitamins A,C,W-mwnq-rkornw 2,148 1 tab PO DAILY EYE HE ALTH 07/07/19 09/19/20 11:00 History mcg-113 mg-45 mg-17.4 mg tablet magnesium oxide 400 mg PO DAILY SUPPLEMENT 1 11/19/19 09/19/20 11:00 History levothyroxine 100 mcg tablet 100 mcg PO DAILY throid 0 07/16/23 Unknown History meclizine 12.5 mg tablet 12.5 mg PO DAILY 07/16/23 Un known History oxycodone-acetaminophen 10 mg-325 1 tab PO Q8H PRN heidi n 07/16/23 Unknown History mg tablet apixaban 5 mg tablet (Eliquis) 5 mg PO BID blood thinn er 07/09/25 Unknown History atorvastatin 40 mg tablet 40 mg PO DAILY cholesterol 0 07/09/25 Unknown History amlodipine 5 mg tablet 5 mg PO DAILY blood pressure 07/12/25 Unknown History budesonide-formoterol HFA 80 1 puff inhalation Q12H Unknown History mcg-4.5 mcg/actuation aerosol inhaler (Symbicort) nystatin 100,000 unit/gram topical 1 applic topical BI D #15 grams 07/12/25 Unknown Rx powder pantoprazole 40 mg tablet,delayed 40 mg PO BID GI #60 tabs 07/12/25 Unknown Rx release (Protonix) metoprolol succinate 50 mg 100 mg (2 x 50 mg) PO DAILY #60 07/14/25 Unknown Rx
--- NOTE | 2025-08-05 22:42 | PCM.HP.STD ---
[facility] - General General Date of Admission: 08/05/25 Date of Service: 08/05/25 Chief Complaint: SOB and LE Edema. [facility] Narrative SEVERIANO LEE, is a 79 F with a past medical history of essential hypertension; on amlodipine, furosemide, hydrochlorothiazide and metoprolol daily, hyperlipidemia; on atorvastatin, hypothyroidism; on levothyroxine, morbid obesity (class III); with BMI of 44 this admission, history of CAD; previoulsy on baby aspirin daily, recently diagnosed atrial fibrillation; on apixaban twice daily, former tobacco abuse; with subsequent asthma/COPD, history of RA; on methotrexate, sulfasalazine plus as needed prednisone, history of squamous cell skin cancer, depression with anxiety; on venlafaxine, history of vertigo; on meclizine and OA; s/p bilateral THR's, bilateral TKR's, Right total shoulder replacement (2014) plus lumbar fusion (2012) with resultant chronic pain syndrome; on oxycodone as needed and recent admission here from July 10, 2025 to July 12, 2025 for treatment of acute upper GI bleed due to gastric ulcers likely triggered by adverse drug reaction to combination of apixaban and aspirin with patient subsequently returning the same day complaining of severe diarrhea debility and weakness with TRUMNA that was treated conservatively with IV fluid with patient subsequently discharged on July 14, 2025 who now re-presents to [facility] ER complaining of shortness of breath and lower extremity edema. Ms. Lee reports her symptoms began few days prior to admission with a gradual-onset of bilateral lower extremity edema that progressively worsened. She also admits to associated dyspnea on exertion so she decided to come in for further evaluation and treatment. In the ER she was noted to have a NT pro-BNP II of 2,339 pg/mL present on admission with a corresponding chest CTA with and without contrast that revealed no evidence for pulmonary embolism with moderate Right and small Left pleural effusions and associated compressive atelectasis consistent with AE CHF; with preserved LVEF of ~65% followed by CT scan of the abdomen pelvis with IV contrast that showed no acute abnormality complicated by UA positive for evidence of Acute Cystitis; with microscopic hematuria in the setting of chronic atrial fibrillation. She was then admitted to the PCU for ongoing care for stay that is expected to extend beyond 2 midnights [facility] Medical History (Updated 08/06/25 @ 02:[address] Bro Gustafson, DO) Morbid obesity with BMI of 40.0-44.9, adult Acute exacerbation of chronic heart failure History of upper gastrointestinal bleeding TRUMAN (acute kidney injury) Fatigue SCHULTZ (dyspnea on exertion) Leukocytosis Atrial fibrillation with RVR Adverse drug reaction Upper GI bleed Melanotic stools ABLA (acute blood loss anemia) Atrial fibrillation Squamous cell skin cancer Skin lesion of hand Acute kidney injury Acute respiratory failure with hypoxia Lactic acidosis Vision disturbance Chronic pain syndrome Acute blood loss anemia Anxiety and depression Asthma HLD (hyperlipidemia) Morbid obesity GI bleed Hyperkalemia Hypertension History of rheumatoid arthritis Home Medications ?Medication ?Instructions ?Recorded ?Last Taken ?Type albuterol sulfate 90 mcg/actuation 1 - 2 puff inhalation Q6H PRN PRN 03/15/15 10/09/16 History aerosol inhaler (ProAir HFA) Shortness Of Breath methotrexate sodium 2.5 mg tablet 20 mg PO MO Rheumatoid arthritis 03/15/15 09/18/20 History folic acid 1 mg tablet 1 mg PO DAILY@0800 supplement #0 03/29/15 09/19/20 11:00 Rx TABLETS prednisone 10 mg tablet 10 mg PO PRN PRN arthritis flare up 07/07/19 3 Days Ago History ~09/16/20 venlafaxine 150 mg 150 mg PO DAILY depression/anxiety 07/07/19 09/19/20 11:00 History capsule,extended release 24 hr vitamins A,C,P-uimy-yilveb 2,148 1 tab PO DAILY E[facility] HEALTH 07/07/19 09/19/20 11:00 History mcg-113 mg-45 mg-17.4 mg tablet magnesium oxide 400 mg PO DAILY SUPPLEMENT 09/19/20 09/19/20 11:00 History levothyroxine 100 mcg tablet 100 mcg PO DAILY throid 07/16/23 Unknown History meclizine 12.5 mg tablet 12.5 mg PO DAILY 07/16/23 Unknown History oxycodone-acetaminophen 10 mg-325 1 tab PO Q8H PRN pain 07/16/23 Unknown History mg tablet apixaban 5 mg tablet (Eliquis) 5 mg PO BID blood thinner 07/09/25 Unknown History atorvastatin 40 mg tablet 40 mg PO DAILY cholesterol 07/09/25 Unknown History amlodipine 5 mg tablet 5 mg PO DAILY blood pressure 07/12/25 Unknown History budesonide-formoterol HFA 80 1 puff inhalation Q12H 07/12/25 Unknown History mcg-4.5 mcg/actuation aerosol inhaler (Symbicort) nystatin 100,000 unit/gram topical 1 applic topical BID #15 grams 07/12/25 Unknown Rx powder pantoprazole 40 mg tablet,delayed 40 mg PO BID GI #60 tabs 07/12/25 Unknown Rx release (Protonix) metoprolol succinate 50 mg 100 mg (2 x 50 mg) PO DAILY #60 07/14/25 Unknown Rx tablet,extended release 24 hr tabs amitriptyline 10 mg tablet 10 mg PO QHS 08/05/25 Unknown History Allergy/AdvReac Type Severity Reaction Status Date / Time adhesive Allergy Other Verified 08/05/25 16:17 amoxicillin trihydrate (From Allergy Unknown Verified 08/05/25 16:17 Augmentin) latex Allergy Unknown Verified 08/05/25 16:17 Penicillins Allergy Unknown Verified 08/05/25 16:17 potassium clavulanate (From Allergy Unknown Verified 08/05/25 16:17 Augmentin) tetracycline Allergy Unknown Verified 08/05/25 16:17 Family History Sister Hypertension Brother Heart disease Mother Diabetes Heart disease Hypertension CVA (cerebral vascular accident) Skin cancer Father Prostate cancer Surgical History History of hand surgery History of reverse total replacement of left shoulder joint History of tonsillectomy History of appendectomy History of tubal ligation History of knee replacement History of hip replacement History of back surgery Status post reverse total replacement of right shoulder Social History household members: none Smoking Status: Former smoker alcohol intake: former substance use type: does not use Vital Signs Vital Signs Vital Signs: 08/05/25 16:15 08/05/25 16:17 08/05/25 16:17 Temperature 98.6 F Temperature Source Oral Pulse Rate 153 H Respiratory Rate 18 Respiratory Effort Respiratory Depth Respiratory Pattern Blood Pressure 141/65 H Blood Pressure Mean 90 Pulse Ox 93 100 100 Oxygen Delivery Method Room Air Room Air Room Air 08/05/25 16:17 08/05/25 16:47 08/05/25 16:47 Temperature 98.6 F Temperature Source Oral Pulse Rate 133 H Respiratory Rate 23 H Respiratory Effort Normal Short of Breath Short of Breath Respiratory Depth Shallow Respiratory Pattern Normal Normal Blood Pressure 137/81 H Blood Pressure Mean 99 Pulse Ox 96 Oxygen Delivery Method Room Air Room Air 08/05/25 17:17 08/05/25 18:00 08/05/25 19:00 Temperature 98.6 F 98.6 F 98.6 F Temperature Source Oral Oral Oral Pulse Rate 137 H 134 H 153 H Respiratory Rate 22 H 18 22 H Respiratory Effort Respiratory Depth Respiratory Pattern Blood Pressure 141/93 H 150/85 H 145/87 H Blood Pressure Mean 109 106 106 Pulse Ox 99 95 94 Oxygen Delivery Method Room Air Room Air Room Air 08/05/25 20:00 08/05/25 21:00 08/05/25 21:25 Temperature 98.6 F 98.6 F Temperature Source Oral Oral Pulse Rate 114 H 107 H 112 H Respiratory Rate 20 H 19 H Respiratory Effort Respiratory Depth Respiratory Pattern Blood Pressure 129/86 H 117/88 H 101/73 Blood Pressure Mean 100 97 82 Pulse Ox 98 94 Oxygen Delivery Method Room Air Room Air 08/05/25 22:00 08/05/25 22:21 Temperature 98.6 F 98.6 F Temperature Source Oral Pulse Rate 112 H 112 H Respiratory Rate 20 H 20 H Respiratory Effort Respiratory Depth Respiratory Pattern Blood Pressure 125/70 H 125/70 H Blood Pressure Mean 88 88 Pulse Ox 94 94 Oxygen Delivery Method Room Air Weight Weight: 264 lb 8.875 oz Body Mass Index (BMI) 44.0 Results Medical Records Data Attestation: I reviewed the patient's medical records Lab / Micro Data Attestation: I reviewed the patient's lab results. 08/05/25 16:32 08/05/25 16:32 Labs: Laboratory Results - last 24 hr 08/05/25 16:32: WBC 6.6, RBC 3.16 L, Hgb 9.5 L, Hct 30.9 L, MCV 97.8, MCH 30.1, MCHC 30.7 L, RDW Std Deviation 60.8 H, RDW Coeff of Espinoza 17.3 H, Plt Count 191, MPV 11.3, Immature Gran % (Auto) 0.500, Neut % (Auto) 66.5, Lymph % (Auto) 23.5, [place] % (Auto) 5.3, Eos % (Auto) 3.6, Baso % (Auto) 0.6, Absolute Neuts (auto) 4.4, Absolute Lymphs (auto) 1.55, Nucleated RBC % 0, Sodium 140, Potassium 3.6, Chloride 105, Carbon Dioxide 22.8, Anion Gap 12, BUN 11, Creatinine 0.80, Estim Creat Clear Calc 73.99, Est GFR (MDRD) Non-Af 75, BUN/Creatinine Ratio 13.8, Glucose 111 H, Calcium 8.8, Total Bilirubin 0.50, Direct Bilirubin 0.29, AST 21, ALT 16, Alkaline Phosphatase 108 H, Troponin T High Sens 14 D, Total Protein 6.1, Albumin 3.5, Globulin 2.6 08/05/25 19:13: Troponin T Hi Sens 2 Hr 13, NT pro BNP II 2339 H 08/05/25 19:31: Urine Color Yellow, Urine Clarity Cloudy, Urine pH 7.0, Ur Specific [place] 1.010, Urine Protein 30 H, Urine Glucose (UA) Normal, Urine Ketones Negative, Urine Occult Blood 50 H, Urine Nitrite Negative, Urine Bilirubin Negative, Urine Urobilinogen Normal, Ur Leukocyte Esterase 500 H, Urine RBC 5-10 SEEN, Urine WBC 25-50 SEEN, Ur Squamous Epith Cells 5-10 SEEN, Urine Bacteria 1+, Urine Mucus 0 SEEN 08/05/25 20:22: Troponin T Hi Sens 4Hr 20 H Imaging Radiology Impression Abdomen/Pelvis CT 08/05/25 17:17 IMPRESSION: No acute abnormality. See above comments. Reading Location: [facility] Chest CTA 08/05/25 19:00 IMPRESSION: No evidence for pulmonary embolism. Moderate right and small left pleural effusions with associated compressive atelectasis. Reading Location: BIB Assessment & Plan Assessment/Plan (1) Acute exacerbation of chronic heart failure: (2) Acute cystitis with hematuria: (3) Morbid obesity with BMI of 40.0-44.9, adult: (4) Chronic atrial fibrillation: PLAN: Plan 1. NT pro-BNP II of 2,339 pg/mL present on admission with a corresponding chest CTA with and without contrast that revealed no evidence for pulmonary embolism with moderate Right and small Left pleural effusions and associated compressive atelectasis consistent with AE of chronic diastolic CHF; with preserved LVEF of ~65% - Admit to PCU. Give furosemide 40 mg IV BID plus supplemental KCl and magnesium. Check echocardiogram to evaluate LVEF. 2. UA positive for evidence of Acute Cystitis; with microscopic hematuria complicating #1 - Continue IV ciprofloxacin begun in the ER and await culture & sensitivity data. Give acetaminophen prn for [id number] (level 1-5/10) pain or fever. Give oxycodone prn for severe (level 6-10/10) pain. 3. Morbid obesity (class III); with BMI of 44 this admission adding to the burden of disease outlined in #1 & #2 - Weight loss will be recommended. Check TSH. This complicates her case and may hamper recovery. 4. Recent admission here from July 10, 2025 to July 12, 2025 for treatment of acute upper GI bleed due to gastric ulcers likely triggered by adverse drug reaction to combination of apixaban and aspirin with patient subsequently returning the same day complaining of severe diarrhea debility and weakness with TRUMAN that was treated conservatively with IV fluid with patient subsequently discharged on July 14, 2025 compounding #1 - #3 - Noted with unfortunate continuation of pattern of serial readmission. Continue pantoprazole BID. 5. Chronic Atrial Fibrillation adding to the medical complexity of #1 - #4 - Stable. Give digoxin IV to keep heart rate < 100 bpm. 6. Former tobacco abuse; with subsequent asthma/COPD - Stable and without evidence of acute flare at this time. Maintain prn nebulizers/inhalers. 7. Essential hypertension; on amlodipine, furosemide, hydrochlorothiazide and metoprolol daily - Resume home regimen plus give hydralazine IV prn for systolic blood pressure > 160 mmHg. 8. Hyperlipidemia; on atorvastatin - Maintain statin. 9. Hypothyroidism; on levothyroxine - Restart levothyroxine when possible. 10. History of RA; on methotrexate, sulfasalazine plus as needed prednisone - Present treatment to continue as before. 11. History of squamous cell skin cancer - Noted. 12. Depression with anxiety; on venlafaxine - Maintain present therapy. 13. History of vertigo; on meclizine - Stable. 14. OA; s/p bilateral THR's, bilateral TKR's, Right total shoulder replacement (2014) plus lumbar fusion (2012) with resultant chronic pain syndrome; on prn oxycodone - We will follow pain regimen and scales outlined in #1. 15. DVT prophylaxis - Patient is already on apixaban for #5 which will be continued. Total time: Approximately (but not less than) 75 minutes. Charges/Coding Visit Charges Inpatient E&M: 65714 Init Hosp L3
[2025-08-06] VITALS (17 sets, daily range): BP systolic 101–137; BP diastolic 54–120; PULSE 83–115; RESP 18–20; TEMP 35.8–36.8; O2SAT 90–98; BMI 43.0
[2025-08-06] MEDS: Digoxin 250 MCG/ML Ampul IV (01:03)
[2025-08-06 01:11] LABS: Magnesium 1.9 mg/dL (1.5-2.2)
--- NOTE | 2025-08-06 02:57 | ECHOD_ITS ---
Reason For Study Reason For Study: CHF Procedure This was a 2D Doppler, Color Flow transthoracic echocardiogram. Exam performed portable in patient room. Left Ventricle Normal left ventricle. The estimated ejection fraction is 55-60 %. Right Ventricle Normal right ventricle. Normal systolic function. Atria The left atrium is mildly enlarged. Normal right atrium. Mitral Valve There is mild mitral annular calcification. Mild-Moderate (1-2+) mitral valve insufficiency. Tricuspid Valve Normal tricuspid valve. Aortic Valve Mild diffuse aortic valve thickening. Pulmonic Valve The pulmonic valve is not well visualized. Great Vessels The aortic root is not well visualized. Pericardium/Pleural No pericardial effusion. MMode/2D Measurements & Calculations LVIDd: 4.8 cm IVSd: 1.2 cm LVOT diam: 2.1 cm LVIDs: 3.2 cm LVPWd: 1.4 cm LVOT area: 3.4 cm2 RVDd: 3.0 cm FS: 32.7 % Ao root diam: 2.9 cm LAV(MOD-bp): 55.4 ml LVAd ap4: 21.4 cm2 LAV(MOD-bp) Indexed: 24.9 ml/m2 LVLd ap4: 7.6 cm LAV(MOD-sp2): 51.3 ml EDV(MOD-sp4): 49.8 ml LAV(MOD-sp4): 51.4 ml EDV(sp4-el): 51.2 ml LVAs ap4: 12.4 cm2 LVLs ap4: 6.5 cm ESV(MOD-sp4): 20.7 ml ESV(sp4-el): 20.2 ml EF(MOD-sp4): 58.5 % EF(sp4-el): 60.6 % SV(MOD-sp4): 29.1 ml SV(sp4-el): 31.0 ml LA A4 area: 20.4 cm2 SI(MOD-sp4): 13.1 ml/m2 LA dimension(2D): 5.0 cm RA A4 area: 13.6 cm2 TAPSE: 1.0 cm Doppler Measurements & Calculations MV E max betito: 111.5 cm/sec Lat Peak E' Betito: 10.7 cm/sec Med Peak E' Betito: 10.3 cm/sec E/E' lat: 10.4 E/E' med: 10.8 Ao V2 max: 158.4 cm/sec LV V1 max: 105.2 cm/sec SV(LVOT): 72.2 ml Ao max P.1 mmHg LV V1 max P.4 mmHg Ao V2 mean: 122.0 cm/sec LV V1 mean P.2 mmHg Ao mean P.4 mmHg LV V1 mean: 86.8 cm/sec Ao V2 VTI: 28.9 cm LV V1 VTI: 21.1 cm AV (velocity ratio): 0.73 RISHI(I,D): 2.5 cm2 RISHI(V,D): 2.3 cm2 PA V2 max: 71.3 cm/sec TR max betito: 240.7 cm/sec TR max P.3 mmHg ECHO/Echo Complete Interpretation Summary The estimated ejection fraction is 55-60 %. Normal LV systolic function Mild to moderate MR Ordering Physician: Bro Gustafson Referring Physician: Marciano Anaya Performed By: Josefina Colvin RDCS, RVT
[2025-08-06] MEDS: Budesonide Respules 0.5 MG/2 ML AMPUL.NEB. INHALATION ×2 (06:46→19:19)
[2025-08-06] MEDS: Albuterol 2.5 MG/3 ML VIAL.NEB. INHALATION (06:46)
[2025-08-06 07:19] LABS: Hematocrit 29.4 % (37-47); Hemoglobin 9.3 g/dL (12.0-15.0); Immature Granulocytes Count 0.020 X10^3/uL (0.0-0.0); Mean Corp Hgb Conc 31.6 g/dL (32-36); Mean Corpuscular Volume 97.4 fL (81-99); Mean Platelet Vol. 11.0 fl (6.2-12.0); NRBC Flagged by Analyzer 0 % (0-5); Platelet Count 159 K/mm3 (150-450); RBC Distribution Width CV 17.3 % (11.6-14.6); RBC Distribution Width SD 59.9 fl (35.1-43.9); Red Blood Count 3.02 M/mm3 (4.2-5.4); White Blood Count 5.3 K/mm3 (4.4-11.0)
--- NOTE | 2025-08-06 08:02 | PCM.PN.HOSP ---
Reason for Visit Chief Complaint: SOB and LE Edema. Objective Data Objective Data Vital Signs: Vital Signs Temp Pulse Resp BP Pulse Ox O2 Del Method 96.5 F L 110 H 18 117/63 93 Room Air 08/06/25 03:19 08/06/25 06:47 08/06/25 06:47 08/06/25 03:19 08/06/25 06:47 08/06/25 06:47 Oxygen Delivery Method Room Air Weight: 258 lb 2.581 oz Body Mass Index (BMI) 43.0 Intake & Output: Intake and Output for Last 24 Hours 08/04/25 08/05/25 08/06/25 23:59 23:59 23:59 Intake Total 200 / 200 Output Total 2800 / 2800 Balance -2600 / -2600 Lab / Micro Data 08/06/25 06:17 08/06/25 06:17 Labs: Laboratory Results - last 24 hr 08/05/25 16:32: WBC 6.6, RBC 3.16 L, Hgb 9.5 L, Hct 30.9 L, MCV 97.8, MCH 30.1, MCHC 30.7 L, RDW Std Deviation 60.8 H, RDW Coeff of Espinoza 17.3 H, Plt Count 191, MPV 11.3, Immature Gran % (Auto) 0.500, Neut % (Auto) 66.5, Lymph % (Auto) 23.5, [place] % (Auto) 5.3, Eos % (Auto) 3.6, Baso % (Auto) 0.6, Absolute Neuts (auto) 4.4, Absolute Lymphs (auto) 1.55, Nucleated RBC % 0, Sodium 140, Potassium 3.6, Chloride 105, Carbon Dioxide 22.8, Anion Gap 12, BUN 11, Creatinine 0.80, Estim Creat Clear Calc 73.99, Est GFR (MDRD) Non-Af 75, BUN/Creatinine Ratio 13.8, Glucose 111 H, Calcium 8.8, Total Bilirubin 0.50, Direct Bilirubin 0.29, AST 21, ALT 16, Alkaline Phosphatase 108 H, Troponin T High Sens 14 D, Total Protein 6.1, Albumin 3.5, Globulin 2.6 08/05/25 19:13: Troponin T Hi Sens 2 Hr 13, NT pro BNP II 2339 H 08/05/25 19:31: Urine Color Yellow, Urine Clarity Cloudy, Urine pH 7.0, Ur Specific [place] 1.010, Urine Protein 30 H, Urine Glucose (UA) Normal, Urine Ketones Negative, Urine Occult Blood 50 H, Urine Nitrite Negative, Urine Bilirubin Negative, Urine Urobilinogen Normal, Ur Leukocyte Esterase 500 H, Urine RBC 5-10 SEEN, Urine WBC 25-50 SEEN, Ur Squamous Epith Cells 5-10 SEEN, Urine Bacteria 1+, Urine Mucus 0 SEEN 08/05/25 20:22: Phosphorus 2.0 L, Magnesium 1.9, Troponin T Hi Sens 4Hr 20 H 08/06/25 06:17: WBC 5.3, RBC 3.02 L, Hgb 9.3 L, Hct 29.4 L, MCV 97.4, MCH 30.8, MCHC 31.6 L, RDW Std Deviation 59.9 H, RDW Coeff of Espinoza 17.3 H, Plt Count 159, MPV 11.0, Immature Gran % (Auto) 0.400, Neut % (Auto) 58.2, Lymph % (Auto) 26.5, [place] % (Auto) 8.1, Eos % (Auto) 6.2 H, Baso % (Auto) 0.6, Absolute Neuts (auto) 3.1, Absolute Lymphs (auto) 1.40, Nucleated RBC % 0 Radiography Diagnostic Testing: Radiology Impression Chest X-Ray 08/05/25 01:20 IMPRESSION: Mild bilateral pleural effusions. Passive atelectatic airspace disease of the lower lobes. Mild central pulmonary venous congestion, slightly increased. Enlarged cardiac silhouette. Abdomen/Pelvis CT 08/05/25 17:17 IMPRESSION: No acute abnormality. See above comments. Chest CTA 08/05/25 19:00 IMPRESSION: No evidence for pulmonary embolism. Moderate right and small left pleural effusions with associated compressive atelectasis. Reading Location: [id number] Physical Exam Narrative Seen and examined. Patient feels improvement in shortness of breath compared to yesterday. Leg swelling is also decreased. Admitted for progressive worsening shortness of breath leg swelling and fluid weight gain. Physical exam General: Alert, Oriented x3, Cooperative. BMI 44.0 kg/m? HEENT: Atraumatic, PERRLA, EOMI, Normocephalic. Oral: No Gingival or Mucosal Lesions/ Ulcerations Neck: Supple, No JVD, Negative Carotid Bruits Chest wall/Lungs: Air entry diminished in bilateral lung bases. Bilateral fine crepitations Cardiovascular: Sinus tachycardia, Normal S1,S2, No M/G/R Abdomen: Bowel Sounds Present, Soft, Non Tender, Non-Distended : No dysuria. No renal angle tenderness. No suprapubic tenderness. Extremities: 2+ pedal edema below knee capillary Refill Less than 3 Seconds Skin: Venous hypertension changes with mild erythema but no tenderness. No superficial cellulitis. Musculoskeletal: No Tenderness to Palpation of Joints or Extremities. Degenerative arthritis of knees joints. ROM slightly restricted Neurological: Cranial nerves II-XII grossly intact, DTR 2+/4. No acute focal neurological deficit. Psych/Mental Status: Normal Affect, Appropriate. Assessment & Plan Assessment/Plan (1) Acute exacerbation of chronic heart failure: (2) Acute cystitis with hematuria: (3) Morbid obesity with BMI of 40.0-44.9, adult: (4) Chronic atrial fibrillation: PLAN: Plan 71-year-old female came to ED with progressive worsening of leg swelling shortness of breath for 3 weeks. She denies any chest pain. 1. Acute on chronic HFpEF heart failure with exacerbation: Patient is being admitted in PCU. proBNP 2339. Last echo on September 2020 reported LVEF of ~65% normal LA, bubble contrast negative for [id number] interatrial shunt. Normal valves. Repeat echo is ordered. Started on furosemide 40 g IV twice daily with supplemental KCl and magnesium. CTPA shows moderate arthrosis small left pleural effusion. It shows compressive atelectasis at lung bases. It is negative for PE. Mediastinum and evelyn are unremarkable. Heart normal in size. No pneumothorax. Trace pericardial effusion. As there is no clinical or radiological evidence of pneumonia therefore Cipro discontinued. Patient had mild cough due to CHF exacerbation. No fever. 2. Abnormal UA: UA shows WBC 25-50 cells, nitrite negative but patient denies any acute increased frequency urgency or burning micturition. Urine culture shows mixed gram-positive and negative organism consistent with contamination. Patient had UTI completed antibiotic about 3-4 weeks ago. Cipro discontinued 3. Morbid obesity (class III); with BMI of 44 KG per square meter: Weight loss counseling done. Recommended gearman consult. 4. Recent admission here from July 10, 2025 to July 12, 2025 for treatment of acute upper GI bleed due to gastric ulcers probably triggered by apixaban: Patient on pantoprazole 40 mg twice daily. Eliquis was resumed as an outpatient after brief hold. 5. Chronic Atrial Fibrillation: Patient currently in sinus tachycardia 124/min. Had digoxin yesterday. Continue Eliquis and metoprolol 6. Former tobacco abuse; with subsequent asthma/COPD -patient states he has 25 pack years of smoking and quit when she was 43-year-old, in 1988. Her asthma has been controlled and did not had any recent exacerbation 7. Essential hypertension; on amlodipine, and metoprolol daily - Resume home regimen plus give hydralazine IV prn for systolic blood pressure > 160 mmHg. 8. Hyperlipidemia; on atorvastatin - Maintain statin. 9. Hypothyroidism; on levothyroxine - Restart levothyroxine when possible. 10. History of RA; on methotrexate, sulfasalazine plus as needed prednisone - Present treatment to continue as before. 11. Other comorbidities include depression with anxiety; on venlafaxine, vertigo on meclizine, degenerative osteoarthritis s/p bilateral THR- Maintain present therapy. DVT prophylaxis - Patient is already on apixaban for #5 which will be continued. Laboratory Results 08/05/25 16:32: WBC 6.6, RBC 3.16 L, Hgb 9.5 L, Hct 30.9 L, MCV 97.8, MCH 30.1, MCHC 30.7 L, RDW Std Deviation 60.8 H, RDW Coeff of [place]inoza 17.3 H, Plt Count 191, MPV 11.3, Immature Gran % (Auto) 0.500, Neut % (Auto) 66.5, Lymph % (Auto) 23.5, [place] % (Auto) 5.3, Eos % (Auto) 3.6, Baso % (Auto) 0.6, Absolute Neuts (auto) 4.4, Absolute Lymphs (auto) 1.55, Nucleated RBC % 0, Sodium 140, Potassium 3.6, Chloride 105, Carbon Dioxide 22.8, Anion Gap 12, BUN 11, Creatinine 0.80, Estim Creat Clear Calc 73.99, Est GFR (MDRD) Non-Af 75, BUN/Creatinine Ratio 13.8, Glucose 111 H, Calcium 8.8, Total Bilirubin 0.50, Direct Bilirubin 0.29, AST 21, ALT 16, Alkaline Phosphatase 108 H, Troponin T High Sens 14 D, Total Protein 6.1, Albumin 3.5, Globulin 2.6 08/05/25 19:13: Troponin T Hi Sens 2 Hr 13, NT pro BNP II 2339 H 08/05/25 19:31: Urine Color Yellow, Urine Clarity Cloudy, Urine pH 7.0, Ur Specific [place] 1.010, Urine Protein 30 H, Urine Glucose (UA) Normal, Urine Ketones Negative, Urine Occult Blood 50 H, Urine Nitrite Negative, Urine Bilirubin Negative, Urine Urobilinogen Normal, Ur Leukocyte Esterase 500 H, Urine RBC 5-10 SEEN, Urine WBC 25-50 SEEN, Ur Squamous Epith Cells 5-10 SEEN, Urine Bacteria 1+, Urine Mucus 0 SEEN 08/05/25 20:22: Phosphorus 2.0 L, Magnesium 1.9, Troponin T Hi Sens 4Hr 20 H 08/06/25 06:17: WBC 5.3, RBC 3.02 L, Hgb 9.3 L, Hct 29.4 L, MCV 97.4, MCH 30.8, MCHC 31.6 L, RDW Std Deviation 59.9 H, RDW Coeff of [place]ino[place] 17.3 H, Plt Count 159, MPV 11.0, Immature Gran % (Auto) 0.400, Neut % (Auto) 58.2, Lymph % (Auto) 26.5, [place] % (Auto) 8.1, Eos % (Auto) 6.2 H, Baso % (Auto) 0.6, Absolute Neuts (auto) 3.1, Absolute Lymphs (auto) 1.40, Nucleated RBC % 0, Sodium 142, Potassium 3.5, Chloride 105, Carbon Dioxide 25.7, Anion Gap 12, BUN 9, Creatinine 0.74, Estim Creat Clear Calc 72.95, Est GFR (MDRD) Non-Af 82, BUN/Creatinine Ratio 11.8, Glucose 91, Calcium 8.5, Total Bilirubin 0.40, AST 15, ALT 12, Alkaline Phosphatase 99, NT pro BNP II 2772 H, Total Protein 5.6 L, Albumin 3.0 L, Globulin 2.6, Albumin/Globulin Ratio 1.2, TSH 2.770 Clinical Impression(s) from Imaging Studies Chest X-Ray 08/05/25 01:20 IMPRESSION: Mild bilateral pleural effusions. Passive atelectatic airspace disease of the lower lobes. Mild central pulmonary venous congestion, slightly increased. Enlarged cardiac silhouette. [facility]/Pelvis CT 08/05/25 17:17 IMPRESSION: No acute abnormality. See above comments. Reading [facility] Chest CTA 08/05/25 19:00 IMPRESSION: No evidence for pulmonary embolism. Moderate right and small left pleural effusions with associated compressive atelectasis. Reading Location: [id number] Charges/Coding Visit Charges Inpatient E&M: 40831 Subs Hosp L2
[2025-08-06 08:19] LABS: AST(SGOT) 15 U/L (<=31); Alanine Aminotransfer ALT/SGPT 12 U/L (<=34); Albumin, Serum 3.0 g/dL (3.4-4.8); Alkaline Phosphatase 99 U/L (35-104); Anion Gap 12 (5-15); BUN 9 mg/dL (4-19); BUN/Creat Ratio 11.8 RATIO (10-20); Calcium,Total 8.5 mg/dL (7.6-11.0); Carbon Dioxide 25.7 mmol/L (21.0-32.0); Chloride 105 mmol/L (98-108); Estimated Creatinine Clearance 72.95 ml/min (50-250); Globulin 2.6 g/dL (2.2-4.2); Glucose 91 mg/dL (70-99); Potassium 3.5 mmol/L (3.3-5.1); Pro- Brain NATRIURETIC PEPTIDE 2772 pg/mL (<=1800)
[2025-08-06] MEDS: APIXABAN 5 MG TABLET PO ×2 (10:14→21:18)
[2025-08-06] MEDS: Metoprolol(XL)Succ 100 MG Tablet PO (10:15)
[2025-08-06] MEDS: Lactobacillis Acidophilus 1 CAP PO ×3 (10:15→21:18)
[2025-08-06] MEDS: Magnesium Chloride 64 MG Delay Rel.Tablet 128 MG PO (10:15)
[2025-08-06] MEDS: Multivitamin (Healthy Eyes) Capsule 1 CAP PO (10:15)
[2025-08-06] MEDS: Potassium Chloride Oral Tablet 20 MEQ PO ×2 (10:16→18:26)
[2025-08-06] MEDS: 0.9% Saline Lock 10 ML Syringe IV (21:26)
[2025-08-07] VITALS (12 sets, daily range): BP systolic 91–129; BP diastolic 47–83; PULSE 78–112; RESP 16–20; TEMP 36.1–36.8; O2SAT 92–98; BMI 41.9
[2025-08-07] MEDS: Budesonide Respules 0.5 MG/2 ML AMPUL.NEB. INHALATION ×2 (06:58→19:50)
[2025-08-07] MEDS: APIXABAN 5 MG TABLET PO ×2 (09:23→21:00)
[2025-08-07] MEDS: Potassium Chloride Oral Tablet 20 MEQ PO ×2 (09:23→17:33)
[2025-08-07] MEDS: Multivitamin (Healthy Eyes) Capsule 1 CAP PO (09:24)
[2025-08-07] MEDS: Magnesium Chloride 64 MG Delay Rel.Tablet 128 MG PO (09:24)
[2025-08-07] MEDS: Lactobacillis Acidophilus 1 CAP PO ×3 (09:24→21:00)
[2025-08-07] MEDS: Metoprolol(XL)Succ 100 MG Tablet PO (09:25)
--- NOTE | 2025-08-07 11:46 | PN.HOSP_ITS ---
Reason for Visit Chief Complaint: SOB and LE Edema. Objective Data Objective Data Vital Signs: Vital Signs Temp Pulse Resp BP Pulse Ox O2 Del Method 98.0 F 105 H 18 105/47 L 98 Room Air 08/07/25 09:08/07/25 11:00 08/07/25 09:29 08/07/25 09:08/07/25 09:08/07/25 10:00 Oxygen Delivery Method Room Air Weight: 252 lb 3.341 oz Body Mass Index (BMI) 41.9 Intake & Output: Intake and Output for Last 24 Hours 08/05/25 08/06/25 08/07/25 23:59 23:59 23:59 Intake Total 300 / 300 Output Total 2800 / 2800 200 / 200 Balance -2500 / -2500 -200 / -200 Lab / Micro Data 08/06/25 06:17 08/06/25 06:17 Radiography Diagnostic Testing: Radiology Impression Echocardiogram 08/06/25 02:57 Interpretation Summary The estimated ejection fraction is 55-60 %. Normal LV systolic function Mild to moderate MR Ordering Physician: Bro Gustafson Referring Physician: Marciano Anaya Performed By: Josefina Colvin, SHELLEY, RVT Physical Exam Narrative Seen and examined. Patient feels improvement in shortness of breath compared to yesterday. Leg swelling is also decreased. Admitted for progressive worsening shortness of breath leg swelling and fluid weight gain. On classroom monitor sinus rhythm with heart rate low 100s. Physical exam General: Alert, Oriented x3, Cooperative. BMI 44.0 kg/m? HEENT: Atraumatic, PERRLA, EOMI, Normocephalic. Oral: No Gingival or Mucosal Lesions/ Ulcerations Neck: Supple, No JVD, Negative Carotid Bruits Chest wall/Lungs: Air entry diminished in bilateral lung bases. Mild fine crepitations. Better than yesterday. Cardiovascular: Sinus tachycardia, Normal S1,S2, No M/G/R Abdomen: Bowel Sounds Present, Soft, Non Tender, Non-Distended : No dysuria. No renal angle tenderness. No suprapubic tenderness. Extremities: 1+ pedal edema below knee capillary Refill Less than 3 Seconds Skin: Venous hypertension changes with mild erythema but no tenderness. No superficial cellulitis. Musculoskeletal: No Tenderness to Palpation of Joints or Extremities. Degenerative arthritis of knees joints. ROM slightly restricted Neurological: Cranial nerves II-XII grossly intact, DTR 2+/4. No acute focal neurological deficit. Psych/Mental Status: Normal Affect, Appropriate. Assessment & Plan Assessment/Plan (1) Acute exacerbation of chronic heart failure: (2) Acute cystitis with hematuria: (3) Morbid obesity with BMI of 40.0-44.9, adult: (4) Chronic atrial fibrillation: PLAN: Plan 71-year-old female came to ED with progressive worsening of leg swelling shortness of breath for 3 weeks. She denies any chest pain. 1. Acute on chronic HFpEF heart failure with exacerbation: Patient is being admitted in PCU. proBNP 2339. Last echo on September 2020 reported LVEF of ~65% normal LA, bubble contrast negative for [id number] interatrial shunt. Normal valves. Repeat echo is ordered. Started on furosemide 40 g IV twice daily with supplemental KCl and magnesium. CTPA shows moderate arthrosis small left pleural effusion. It shows compressive atelectasis at lung bases. It is negative for PE. Mediastinum and evelyn are unremarkable. Heart normal in size. No pneumothorax. Trace pericardial effusion. As there is no clinical or radiological evidence of pneumonia therefore Cipro discontinued. Patient had mild cough due to CHF exacerbation. No fever. 08/07: Mild sinus tachycardia: Metoprolol succinate dose increased to 125 mg daily. Echo reviewed. Normal RV size and systolic function. LA mildly enlarged. Echocardiogram 08/06/25 02:57 Interpretation Summary The estimated ejection fraction is 55-60 %. Normal LV systolic function Mild to moderate MR 2. Abnormal UA: UA shows WBC 25-50 cells, nitrite negative but patient denies any acute increased frequency urgency or burning micturition. Urine culture shows mixed gram-positive and negative organism consistent with contamination. Patient had UTI completed antibiotic about 3-4 weeks ago. Cipro discontinued 08/07: Patient does not have Noel catheter 3. Morbid obesity (class III); with BMI of 44 KG per square meter: Weight loss counseling done. Recommended salvage worker consult. 4. Recent admission here from July 10, 2025 to July 12, 2025 for treatment of acute upper GI bleed due to gastric ulcers probably triggered by apixaban: Patient on pantoprazole 40 mg twice daily. Eliquis was resumed as an outpatient after brief hold. 5. Chronic Atrial Fibrillation: Patient currently in sinus tachycardia 124/min. Had digoxin yesterday. Continue Eliquis and metoprolol 6. Former tobacco abuse; with subsequent asthma/COPD -patient states he has 25 pack years of smoking and quit when she was 43-year-old, in 1988. Her asthma has been controlled and did not had any recent exacerbation 7. Essential hypertension; on amlodipine, and metoprolol daily - Resume home regimen plus give hydralazine IV prn for systolic blood pressure > 160 mmHg. 8. Hyperlipidemia; on atorvastatin - Maintain statin. 9. Hypothyroidism; on levothyroxine - Restart levothyroxine when possible. 10. History of RA; on methotrexate, sulfasalazine plus as needed prednisone - Present treatment to continue as before. 11. Other comorbidities include depression with anxiety; on venlafaxine, vertigo on meclizine, degenerative osteoarthritis s/p bilateral THR- Maintain present therapy. DVT prophylaxis - Patient is already on apixaban for #5 which will be continued. Clinical Impression(s) from Imaging Studies Chest X-Ray 08/05/25 01:20 IMPRESSION: Mild bilateral pleural effusions. Passive atelectatic airspace disease of the lower lobes. Mild central pulmonary venous congestion, slightly increased. Enlarged cardiac silhouette. Reading [facility]/Pelvis CT 08/05/25 17:17 IMPRESSION: No acute abnormality. See above comments. Reading Location: [facility] Chest CTA 08/05/25 19:00 IMPRESSION: No evidence for pulmonary embolism. Moderate right and small left pleural effusions with associated compressive atelectasis. Reading Location: [facility] Charges/Coding Visit Charges Inpatient E&M: 16156 Subs Hosp L2
[2025-08-07] MEDS: Metoprolol(XL)Succ 25 MG Tablet PO (12:47)
[2025-08-08 02:56] VITALS: BP 95/63; PULSE 72; RESP 20; TEMP 36.4; O2SAT 94
[2025-08-08 03:00] VITALS: BP 95/63; PULSE 72; RESP 20; TEMP 36.4; O2SAT 94
[2025-08-08 03:11] VITALS: BMI 42.1
[2025-08-08 05:34] LABS: Hematocrit 29.5 % (37-47); Hemoglobin 9.4 g/dL (12.0-15.0); Immature Granulocytes Count 0.010 X10^3/uL (0.0-0.0); Mean Corp Hgb Conc 31.9 g/dL (32-36); Mean Corpuscular Volume 94.9 fL (81-99); Mean Platelet Vol. 10.6 fl (6.2-12.0); NRBC Flagged by Analyzer 0 % (0-5); Platelet Count 163 K/mm3 (150-450); RBC Distribution Width CV 17.6 % (11.6-14.6); RBC Distribution Width SD 59.0 fl (35.1-43.9); Red Blood Count 3.11 M/mm3 (4.2-5.4); White Blood Count 5.9 K/mm3 (4.4-11.0)
[2025-08-08 06:05] LABS: Anion Gap 11 (5-15); BUN 12 mg/dL (4-19); BUN/Creat Ratio 13.6 RATIO (10-20); Calcium,Total 8.7 mg/dL (7.6-11.0); Carbon Dioxide 26.9 mmol/L (21.0-32.0); Chloride 101 mmol/L (98-108); Estimated Creatinine Clearance 67.09 ml/min (50-250); Glucose 94 mg/dL (70-99); Potassium 4.0 mmol/L (3.3-5.1)
[2025-08-08] MEDS: Budesonide Respules 0.5 MG/2 ML AMPUL.NEB. INHALATION (07:38)
[2025-08-08 07:39] VITALS: PULSE 83; RESP 16; O2SAT 92
[2025-08-08 08:00] VITALS: BP 125/52; PULSE 85; RESP 18; TEMP 36.8; O2SAT 92
[2025-08-08] MEDS: Lactobacillis Acidophilus 1 CAP PO ×2 (09:33→14:11)
[2025-08-08] MEDS: APIXABAN 5 MG TABLET PO (09:34)
[2025-08-08] MEDS: Multivitamin (Healthy Eyes) Capsule 1 CAP PO (09:34)
[2025-08-08] MEDS: Magnesium Chloride 64 MG Delay Rel.Tablet 128 MG PO (09:35)
[2025-08-08 09:37] VITALS: BP 125/52; PULSE 85
[2025-08-08] MEDS: Metoprolol(XL)Succ 25 MG Tablet 125 MG PO (09:37)
[2025-08-08] MEDS: 0.9% Saline Lock 10 ML Syringe IV (10:06)
[2025-08-08] MEDS: Smz/Tmp Ds Tablet 1 TABLET PO (10:09)
--- NOTE | 2025-08-08 11:34 | CASEMGMT ---
RADHA LOVE intor pt room, discussed PT and OT with Pt. Pt feels she needs to go to SNF upon DC. Pt only wants TCU at this time. RADHA LOVE made referral, TCU able to accept. RADHA LOVE informed Pt. TCU will start precert.
[2025-08-08 14:05] VITALS: BP 106/67; PULSE 71; RESP 16; TEMP 36.9; O2SAT 91
--- NOTE | 2025-08-08 14:37 | TREXTCAR_ITS ---
Diet Diet Order/Speech Therapy: INPATIENT Hospital Diet / Speech Therapy Order(s) 08/06/25 00:14 Diet: Cardiac - Heart Healthy Food consistency:: Regular Liquid Consistency:: Regular/Thin Routine Orders/Code Status Suppository Type: Dulcolax 10mg Suppository Frequency: Daily PRN DC O2, CPAP, BIPAP needs Home O2 Discharge instructions: No Wound(s) stomach fold: Wound Type: redness Therapies Extremity Affected:: Bilateral Lower Physical Therapy: Eval and Treat Occupational Therapy: Eval and Treat Speech Therapy: Eval and Treat Problem/Diagnosis (1) Acute exacerbation of chronic heart failure: Status: Acute Code(s): I50.9 - Heart failure, unspecified (2) Acute cystitis with hematuria: Status: Acute Code(s): N30.01 - Acute cystitis with hematuria (3) Morbid obesity with BMI of 40.0-44.9, adult: Status: Acute Code(s): E66.01 - Morbid (severe) obesity due to excess calories; Z68.41 - Body mass index [BMI] 40.0-44.9, adult (4) Chronic atrial fibrillation: Status: Chronic Code(s): I48.20 - Chronic atrial fibrillation, unspecified Plan 71-year-old female came to ED with progressive worsening of leg swelling shortness of breath for 3 weeks. She denies any chest pain. 1. Acute on chronic HFpEF heart failure with exacerbation: Patient is being admitted in PCU. proBNP 2339. Last echo on September 2020 reported LVEF of ~65% normal LA, bubble contrast negative for fknbv-ef-slen interatrial shunt. Normal valves. Repeat echo is ordered. Started on furosemide 40 g IV twice daily with supplemental KCl and magnesium. CTPA shows moderate arthrosis small left pleural effusion. It shows compressive atelectasis at lung bases. It is negative for PE. Mediastinum and evelyn are unremarkable. Heart normal in size. No pneumothorax. Trace pericardial effusion. As there is no clinical or radiological evidence of pneumonia therefore Cipro discontinued. Patient had mild cough due to CHF exacerbation. No fever. 08/07: Mild sinus tachycardia: Metoprolol succinate dose increased to 125 mg daily. Echo reviewed. Normal RV size and systolic function. LA mildly enlarged. Echocardiogram 08/06/25 02:57 Interpretation Summary The estimated ejection fraction is 55-60 %. Normal LV systolic function Mild to moderate MR 08/08: Clinically, shortness of breath, wheezing and leg swelling has improved. Patient is being discharged to TCU on furosemide 40 mg twice daily and cardiac medications. 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 Initially thought it was venous edema/congestion but may be cellulitis. Started on Bactrim. Prior to that patient was on Cipro. She is allergic to penicillin and amoxicillin with hives but no anaphylactic reaction. 2. Abnormal UA: UA shows WBC 25-50 cells, nitrite negative but patient denies any acute increased frequency urgency or burning micturition. Urine culture shows mixed gram-positive and negative organism consistent with contamination. Patient had UTI completed antibiotic about 3-4 weeks ago. Cipro discontinued 08/07: Patient does not have Noel catheter 3. Morbid obesity (class III); with BMI of 44 KG per square meter: Weight loss counseling done. Recommended technology methodology consultant consult. 4. Recent admission here from July 10, 2025 to July 12, 2025 for treatment of acute upper GI bleed due to gastric ulcers probably triggered by apixaban: Patient on pantoprazole 40 mg twice daily. Eliquis was resumed as an outpatient after brief hold. 5. Chronic Atrial Fibrillation: Patient currently in sinus tachycardia 124/min. Had digoxin yesterday. Continue Eliquis and metoprolol 6. Former tobacco abuse; with subsequent asthma/COPD -patient states he has 25 pack years of smoking and quit when she was 43-year-old, in 1988. Her asthma has been controlled and did not had any recent exacerbation 7. Essential hypertension; on amlodipine, and metoprolol daily - Resume home regimen plus give hydralazine IV prn for systolic blood pressure > 160 mmHg. 8. Hyperlipidemia; on atorvastatin - Maintain statin. 9. Hypothyroidism; on levothyroxine - Restart levothyroxine when possible. 10. History of RA; on methotrexate, sulfasalazine plus as needed prednisone - Present treatment to continue as before. 11. Other comorbidities include depression with anxiety; on venlafaxine, vertigo on meclizine, degenerative osteoarthritis s/p bilateral THR- Maintain present therapy. DVT prophylaxis - Patient is already on apixaban for #5 which will be continued. Clinical Impression(s) from Imaging Studies Chest X-Ray 08/05/25 01:20 IMPRESSION: Mild bilateral pleural effusions. Passive atelectatic airspace disease of the lower lobes. Mild central pulmonary venous congestion, slightly increased. Enlarged cardiac silhouette. [facility]Pelvis CT 08/05/25 17:17 IMPRESSION: No acute abnormality. See above comments. Reading [facility] 08/05/25 19:00 IMPRESSION: No evidence for pulmonary embolism. Moderate right and small left pleural effusions with associated compressive atelectasis. Reading Location: [id number] Allergies/Procedures Done in Hospital Allergies adhesive Allergy (Verified 08/05/25 16:17) Other amoxicillin trihydrate (From Augmentin) Allergy (Verified 08/05/25 16:17) Unknown latex Allergy (Verified 08/05/25 16:17) Unknown Penicillins Allergy (Verified 08/05/25 16:17) Unknown potassium clavulanate (From Augmentin) Allergy (Verified 08/05/25 16:17) Unknown tetracycline Allergy (Verified 08/05/25 16:17) Unknown Type of Care/Length of Stay Estimated LOS: Convalescent Care Less Than 30 days Type of Care Needed: Skilled Rehab Potential: Good Prognosis: Good Additional Orders/Day of Discharge Day of Discharge: 08/08/25 Dietary and Speech Recommendations Dietitian Recommendations/Changes: Continue Cardiac diet to manage medical conditions. Discharge Plan Admission Admit Date/Time: 08/05/25 23:53 Attending Provider: Dakota Delarosa Primary Care Provider: Marciano Anaya Consulting Providers: Bro Gustafson Discharge Orders/Prescriptions Prescriptions: New acetaminophen 325 mg Tablet 650 mg PO Q6H PRN PRN (Reason: Pain 1-5/10 Or Fever>100.7) Qty: 0 0RF L.acidoph,saliva-B.bif-S.therm 175 mg Capsule 1 cap PO 2XD 7 Days Qty: 14 0RF furosemide [Lasix] 40 mg tablet 40 mg PO BID Qty: 60 0RF metoprolol succinate 25 mg Tablet Extended Release 24 Hr 125 mg PO DAILY Qty: 0 0RF cephalexin 500 mg capsule 500 mg PO Q8H 6 Days Qty: 18 0RF Continued oxycodone-acetaminophen 10-325 mg tablet 1 tab PO Q8H PRN (Reason: pain) Patient Comments: TAKE 1 TABLET BY MOUTH THREE TIMES DAILY NEEDED levothyroxine 100 mcg tablet 100 mcg PO DAILY meclizine 12.5 mg tablet 12.5 mg PO DAILY methotrexate sodium 2.5 MG tablet 20 mg PO MO Patient Comments: Rheumatoid Arthritis - on Mondays albuterol sulfate [ProAir HFA] 1 PUFF inhaler 1 - 2 puff inhalation Q6H PRN PRN (Reason: Shortness Of Breath) Patient Comments: As needed for Shortness of Breath folic acid 1 MG tablet 1 mg PO DAILY@0800 Qty: 0 0RF prednisone 10 MG tablet 10 mg PO PRN PRN (Reason: arthritis flare up) Rx Instructions: for arthritis flare up venlafaxine 150 MG capsule,extended release 24hr 150 mg PO DAILY vitamins A,C,Q-bxux-gxrkik 1 EACH tablet 1 tab PO DAILY magnesium oxide 400 MG tablet 400 mg PO DAILY amitriptyline 10 mg tablet 10 mg PO QHS atorvastatin 40 mg tablet 40 mg PO DAILY Eliquis 5 mg tablet 5 mg PO BID nystatin 100,000 unit/gram Powder 1 applic topical BID Qty: 15 0RF Protocol: *Topical Application Instructions APPLICATION INSTRUCTIONS: axillary and abd folds pantoprazole [Protonix] 40 mg tablet,delayed release (DR/EC) 40 mg PO BID Qty: 60 0RF budesonide-formoterol [Symbicort] 80-4.5 mcg/actuation HFA aerosol inhaler 1 puff inhalation Q12H Discontinued amlodipine 5 mg tablet 5 mg PO DAILY metoprolol succinate 50 mg Tablet Extended Release 24 Hr 100 mg PO DAILY Qty: 60 0RF Referrals / Follow Up: Arturo Man MD [Med Staff - Active Staff, Cardiology] - Within 1 Month Referral Note: for Heart failure, HFeEF Marciano Anaya DO [Primary Care Provider, Family Practice] - Within 2 Weeks Disposition Disposition (needs filled in before D/C Order can be placed): Home, Self Care
--- NOTE | 2025-08-08 14:39 | CASEMGMT ---
SW Received notification precert completed, SW notified RN CM. RN CM notified Pt nurse, Hospitalist, and patient. Hospitalist states will go ahead and DC.
--- NOTE | 2025-08-08 14:52 | PCM.DC.SUM ---
Providers Date of Admission: 08/05/25 Date of Discharge: 08/08/25 Primary Care Physician: Dr. Marciano Anaya DO Reason For Visit: AE CHF AND UTI Diagnosis Discharge Diagnosis (1) Acute exacerbation of chronic heart failure: Status: Acute Code(s): I50.9 - Heart failure, unspecified (2) Acute cystitis with hematuria: Status: Acute Code(s): N30.01 - Acute cystitis with hematuria (3) Morbid obesity with BMI of 40.0-44.9, adult: Status: Acute Code(s): E66.01 - Morbid (severe) obesity due to excess calories; Z68.41 - Body mass index [BMI] 40.0-44.9, adult (4) Chronic atrial fibrillation: Status: Chronic Code(s): I48.20 - Chronic atrial fibrillation, unspecified Plan 71-year-old female came to ED with progressive worsening of leg swelling shortness of breath for 3 weeks. She denies any chest pain. 1. Acute on chronic HFpEF heart failure with exacerbation: Patient is being admitted in PCU. proBNP 2339. Last echo on September 2020 reported LVEF of ~65% normal LA, bubble contrast negative for whgdl-nt-dkcv interatrial shunt. Normal valves. Repeat echo is ordered. Started on furosemide 40 g IV twice daily with supplemental KCl and magnesium. CTPA shows moderate arthrosis small left pleural effusion. It shows compressive atelectasis at lung bases. It is negative for PE. Mediastinum and evelyn are unremarkable. Heart normal in size. No pneumothorax. Trace pericardial effusion. As there is no clinical or radiological evidence of pneumonia therefore Cipro discontinued. Patient had mild cough due to CHF exacerbation. No fever. 08/07: Mild sinus tachycardia: Metoprolol succinate dose increased to 125 mg daily. Echo reviewed. Normal RV size and systolic function. LA mildly enlarged. Echocardiogram 08/06/25 02:57 Interpretation Summary The estimated ejection fraction is 55-60 %. Normal LV systolic function Mild to moderate MR 08/08: Clinically, shortness of breath, wheezing and leg swelling has improved. Patient is being discharged to TCU on furosemide 40 mg twice daily and cardiac medications. 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 Initially thought it was venous edema/congestion but may be cellulitis. Started on Bactrim. Prior to that patient was on Cipro. She is allergic to penicillin and amoxicillin with hives but no anaphylactic reaction. Bactrim changed to Keflex as rash did not have blisters/pustules. Probably strep related cellulitis. Follow-up with technical sales director Dr. Man in 1 month. Metoprolol succinate dose increased to 125 mg daily. Amlodipine discontinued. 2. Abnormal UA: UA shows WBC 25-50 cells, nitrite negative but patient denies any acute increased frequency urgency or burning micturition. Urine culture shows mixed gram-positive and negative organism consistent with contamination. Patient had UTI completed antibiotic about 3-4 weeks ago. Cipro discontinued 08/07: Patient does not have Noel catheter 3. Morbid obesity (class III); with BMI of 44 KG per square meter: Weight loss counseling done. Recommended customer advocacy manager consult. 4. Recent admission here from July 10, 2025 to July 12, 2025 for treatment of acute upper GI bleed due to gastric ulcers probably triggered by apixaban: Patient on pantoprazole 40 mg twice daily. Eliquis was resumed as an outpatient after brief hold. 5. Chronic Atrial Fibrillation: Patient currently in sinus tachycardia 124/min. Had digoxin yesterday. Continue Eliquis and metoprolol 6. Former tobacco abuse; with subsequent asthma/COPD -patient states he has 25 pack years of smoking and quit when she was 43-year-old, in 1988. Her asthma has been controlled and did not had any recent exacerbation 7. Essential hypertension; on amlodipine, and metoprolol daily - Resume home regimen plus give hydralazine IV prn for systolic blood pressure > 160 mmHg. 08/08: Amlodipine discontinued as blood pressure 106/67 and patient has leg swelling. 8. Hyperlipidemia; on atorvastatin - Maintain statin. 9. Hypothyroidism; on levothyroxine - Restart levothyroxine when possible. 10. History of RA; on methotrexate, sulfasalazine plus as needed prednisone - Present treatment to continue as before. 11. Other comorbidities include depression with anxiety; on venlafaxine, vertigo on meclizine, degenerative osteoarthritis s/p bilateral THR- Maintain present therapy. DVT prophylaxis - Patient is already on apixaban for #5 which will be continued. Discharge medication reconciliation done. Discharge follow-up instructions completed. Discharge process discussed with the patient and all questions were answered to patient's satisfaction. Follow with PCP in 1 to 2 weeks Total time spent, exact 35 minutes on discharge meds reconciliation, examination, coordination of care with nurses and ancillary staff, review of imaging and blood test and discussion with the patient on follow-up instructions. Clinical Impression(s) from Imaging Studies Chest X-Ray 08/05/25 01:20 IMPRESSION: Mild bilateral pleural effusions. Passive atelectatic airspace disease of the lower lobes. Mild central pulmonary venous congestion, slightly increased. Enlarged cardiac silhouette. Reading Location: [facility] Abdomen/Pelvis CT 08/05/25 17:17 IMPRESSION: No acute abnormality. See above comments. Reading Location: [facility] Chest CTA 08/05/25 19:00 IMPRESSION: No evidence for pulmonary embolism. Moderate right and small left pleural effusions with associated compressive atelectasis. Reading Location: BIB Medications at Discharge Home Medications albuterol sulfate 90 mcg/actuation aerosol inhaler (ProAir HFA) 1 - 2 puff inhalation Q6H PRN PRN Shortness Of Breath 03/15/15 methotrexate sodium 2.5 mg tablet 20 mg PO MO Rheumatoid arthritis 03/15/15 folic acid 1 mg tablet 1 mg PO DAILY@0800 supplement #0 TABLETS 03/29/15 prednisone 10 mg tablet 10 mg PO PRN PRN arthritis flare up 07/07/19 venlafaxine 150 mg capsule,extended release 24 hr 150 mg PO DAILY depression/anxiety 07/07/19 vitamins A,C,K-yoob-zecdgt 2,148 mcg-113 mg-45 mg-17.4 mg tablet 1 tab PO DAILY EYE HEALTH 07/07/19 magnesium oxide 400 mg PO DAILY SUPPLEMENT 09/19/20 levothyroxine 100 mcg tablet 100 mcg PO DAILY throid 07/16/23 meclizine 12.5 mg tablet 12.5 mg PO DAILY 07/16/23 oxycodone-acetaminophen 10 mg-325 mg tablet 1 tab PO Q8H PRN pain 07/16/23 apixaban 5 mg tablet (Eliquis) 5 mg PO BID blood thinner 07/09/25 atorvastatin 40 mg tablet 40 mg PO DAILY cholesterol 07/09/25 budesonide-formoterol HFA 80 mcg-4.5 mcg/actuation aerosol inhaler (Symbicort) 1 puff inhalation Q12H 07/12/25 nystatin 100,000 unit/gram topical powder 1 applic topical BID #15 grams 07/12/25 pantoprazole 40 mg tablet,delayed release (Protonix) 40 mg PO BID GI #60 tabs 07/12/25 amitriptyline 10 mg tablet 10 mg PO QHS 08/05/25 L.acidophil,salivari-Bifido bifidum-Strep thermoph 175 mg capsule 1 cap PO 2XD 7 days #14 caps 08/08/25 acetaminophen 325 mg tablet 650 mg (2 x 325 mg) PO Q6H PRN PRN Pain 1-5/10 Or Fever>100.7 #0 tabs 08/08/25 cephalexin 500 mg capsule 500 mg PO Q8H 6 days #18 caps 08/08/25 furosemide 40 mg tablet (Lasix) 40 mg PO BID #60 tabs 08/08/25 metoprolol succinate 25 mg tablet,extended release 24 hr 125 mg (5 x 25 mg) PO DAILY #0 tabs 08/08/25 Physical Exam Narrative Seen and examined. Patient feels improvement in shortness of breath compared to yesterday. Leg swelling is also decreased. Admitted for progressive worsening shortness of breath leg swelling and fluid weight gain. On panel monitor sinus rhythm with heart rate low 100s. Physical exam General: Alert, Oriented x3, Cooperative. BMI 44.0 kg/m? HEENT: Atraumatic, PERRLA, EOMI, Normocephalic. Oral: No Gingival or Mucosal Lesions/ Ulcerations Neck: Supple, No JVD, Negative Carotid Bruits Chest wall/Lungs: Air entry diminished in bilateral lung bases. Mild fine crepitations. Better than yesterday. Cardiovascular: Sinus tachycardia, Normal S1,S2, No M/G/R Abdomen: Bowel Sounds Present, Soft, Non Tender, Non-Distended : No dysuria. No renal angle tenderness. No suprapubic tenderness. Extremities: 1+ pedal edema below knee capillary Refill Less than 3 Seconds Skin: Redness in both lower with erythema and mild tenderness. Superficial tenderness not getting better, possible cellulitis. Musculoskeletal: No Tenderness to Palpation of Joints or Extremities. Degenerative arthritis of knees joints. ROM slightly restricted Neurological: Cranial nerves II-XII grossly intact, DTR 2+/4. No acute focal neurological deficit. Psych/Mental Status: Normal Affect, Appropriate. Weight / BMI Weight Weight: 253 lb 1.451 oz Body Mass Index (BMI) 42.1 ABG / Lab / Microbiology Data 08/08/25 05:21 08/08/25 05:21 Laboratory: Laboratory Results - last 24 hr 08/08/25 05:21: WBC 5.9, RBC 3.11 L, Hgb 9.4 L, Hct 29.5 L, MCV 94.9, MCH 30.2, MCHC 31.9 L, RDW Std Deviation 59.0 H, RDW Coeff of Espinoza 17.6 H, Plt Count 163, MPV 10.6, Immature Gran % (Auto) 0.200, Neut % (Auto) 51.9, Lymph % (Auto) 27.3, [place] % (Auto) 12.6 H, Eos % (Auto) 7.5 H, Baso % (Auto) 0.5, Absolute Neuts (auto) 3.0, Absolute Lymphs (auto) 1.60, Nucleated RBC % 0, Sodium 138, Potassium 4.0, Chloride 101, Carbon Dioxide 26.9, Anion Gap 11, BUN 12, Creatinine 0.86, Estim Creat Clear Calc 67.09, Est GFR (MDRD) Non-Af 69, BUN/Creatinine Ratio 13.6, Glucose 94, Calcium 8.7 D/C Instructions DC O2, CPAP, BIPAP Needs Home O2 Discharge instructions: No Meaningful Use Info Meaningful Use Meaningful Use Diagnoses (Choose all that apply): CHF CHF ASHTYN/ARB ordered at discharge?: No Reason ASHTYN/ARB not ordered?: Hypotension Documented LVEF (%): 55 Discharge Plan Admission Admit Date/Time: 08/05/25 23:53 Attending Provider: Dakota Delarosa Primary Care Provider: Marciano Anaya Consulting Providers: Bro Gustafson Discharge Orders/Prescriptions Prescriptions: New acetaminophen 325 mg Tablet 650 mg PO Q6H PRN PRN (Reason: Pain 1-5/10 Or Fever>100.7) Qty: 0 0RF L.acidoph,saliva-B.bif-S.therm 175 mg Capsule 1 cap PO 2XD 7 Days Qty: 14 0RF furosemide [Lasix] 40 mg tablet 40 mg PO BID Qty: 60 0RF metoprolol succinate 25 mg Tablet Extended Release 24 Hr 125 mg PO DAILY Qty: 0 0RF cephalexin 500 mg capsule 500 mg PO Q8H 6 Days Qty: 18 0RF Continued oxycodone-acetaminophen 10-325 mg tablet 1 tab PO Q8H PRN (Reason: pain) Patient Comments: TAKE 1 TABLET BY MOUTH THREE TIMES DAILY NEEDED levothyroxine 100 mcg tablet 100 mcg PO DAILY meclizine 12.5 mg tablet 12.5 mg PO DAILY methotrexate sodium 2.5 MG tablet 20 mg PO MO Patient Comments: Rheumatoid Arthritis - on Mondays albuterol sulfate [ProAir HFA] 1 PUFF inhaler 1 - 2 puff inhalation Q6H PRN PRN (Reason: Shortness Of Breath) Patient Comments: As needed for Shortness of Breath folic acid 1 MG tablet 1 mg PO DAILY@0800 Qty: 0 0RF prednisone 10 MG tablet 10 mg PO PRN PRN (Reason: arthritis flare up) Rx Instructions: for arthritis flare up venlafaxine 150 MG capsule,extended release 24hr 150 mg PO DAILY vitamins A,C,X-xxfg-fmnsud 1 EACH tablet 1 tab PO DAILY magnesium oxide 400 MG tablet 400 mg PO DAILY amitriptyline 10 mg tablet 10 mg PO QHS atorvastatin 40 mg tablet 40 mg PO DAILY Eliquis 5 mg tablet 5 mg PO BID nystatin 100,000 unit/gram Powder 1 applic topical BID Qty: 15 0RF Protocol: *Topical Application Instructions APPLICATION INSTRUCTIONS: axillary and abd folds pantoprazole [Protonix] 40 mg tablet,delayed release (DR/EC) 40 mg PO BID Qty: 60 0RF budesonide-formoterol [Symbicort] 80-4.5 mcg/actuation HFA aerosol inhaler 1 puff inhalation Q12H Discontinued amlodipine 5 mg tablet 5 mg PO DAILY metoprolol succinate 50 mg Tablet Extended Release 24 Hr 100 mg PO DAILY Qty: 60 0RF Referrals / Follow Up: Arturo Man MD [Med Staff - Active Staff, Cardiology] - Within 1 Month Referral Note: for Heart failure, HFeEF Marciano Anaya DO [Primary Care Provider, Family Practice] - Within 2 Weeks Disposition Disposition (needs filled in before D/C Order can be placed): Home, Self Care Charges/Coding Visit Charges Inpatient E&M: 72317 Disch Hosp >30min
--- NOTE | 2025-08-08 15:05 | PHA.DC.MR.R ---
Pharmacy [place] Med Reconciliation Pharmacy Service has performed discharge medication reconciliation for this patient. The patient's discharge medication list was reviewed for discrepancies and discrepancies were resolved. Medications at Discharge Home Medications albuterol sulfate 90 mcg/actuation aerosol inhaler (ProAir HFA) 1 - 2 puff inhalation Q6H PRN PRN Shortness Of Breath 03/15/15 methotrexate sodium 2.5 mg tablet 20 mg PO MO Rheumatoid arthritis 03/15/15 folic acid 1 mg tablet 1 mg PO DAILY@0800 supplement #0 TABLETS 03/29/15 prednisone 10 mg tablet 10 mg PO PRN PRN arthritis flare up 07/07/19 venlafaxine 150 mg capsule,extended release 24 hr 150 mg PO DAILY depression/anxiety 07/07/19 vitamins A,C,B-oium-fhhizy 2,148 mcg-113 mg-45 mg-17.4 mg tablet 1 tab PO DAILY [facility] 07/07/19 magnesium oxide 400 mg PO DAILY SUPPLEMENT 09/19/20 levothyroxine 100 mcg tablet 100 mcg PO DAILY throid 07/16/23 meclizine 12.5 mg tablet 12.5 mg PO DAILY 07/16/23 oxycodone-acetaminophen 10 mg-325 mg tablet 1 tab PO Q8H PRN pain 07/16/23 apixaban 5 mg tablet (Eliquis) 5 mg PO BID blood thinner 07/09/25 atorvastatin 40 mg tablet 40 mg PO DAILY cholesterol 07/09/25 budesonide-formoterol HFA 80 mcg-4.5 mcg/actuation aerosol inhaler (Symbicort) 1 puff inhalation Q12H 07/12/25 nystatin 100,000 unit/gram topical powder 1 applic topical BID #15 grams 07/12/25 pantoprazole 40 mg tablet,delayed release (Protonix) 40 mg PO BID GI #60 tabs 07/12/25 amitriptyline 10 mg tablet 10 mg PO QHS 08/05/25 L.acidophil,salivari-Bifido bifidum-Strep thermoph 175 mg capsule 1 cap PO 2XD 7 days #14 caps 08/08/25 acetaminophen 325 mg tablet 650 mg (2 x 325 mg) PO Q6H PRN PRN Pain 1-5/10 Or Fever>100.7 #0 tabs 08/08/25 cephalexin 500 mg capsule 500 mg PO Q8H 6 days #18 caps 08/08/25 furosemide 40 mg tablet (Lasix) 40 mg PO BID #60 tabs 08/08/25 metoprolol succinate 25 mg tablet,extended release 24 hr 125 mg (5 x 25 mg) PO DAILY #0 tabs 08/08/25
--- NOTE | 2025-08-08 16:03 | NURSING ---
Called report to Ananya in TCU, no other questions
== END 2025-08-08 17:53 | disposition skilled nursing facility (03) | DRG 291 ==
LOC: ED 22:49 → PCU 08-06 00:03
PROVIDERS: Admitting Provider Internal Medicine; Emergency Provider Student in an Organized Health Care Education/Training Program; PCP Family Medicine; Visit Provider Internal Medicine
DX: I11.0 Hypertensive heart disease with heart failure (principal); I50.33 Acute on chronic diastolic (congestive) heart failure; Z68.41 Body mass index [BMI] 40.0-44.9, adult; I48.20 Chronic atrial fibrillation, unspecified; N30.01 Acute cystitis with hematuria; E03.9 Hypothyroidism, unspecified; Z79.01 Long term (current) use of anticoagulants; J44.9 Chronic obstructive pulmonary disease, unspecified; M06.9 Rheumatoid arthritis, unspecified; M19.90 Unspecified osteoarthritis, unspecified site; E78.5 Hyperlipidemia, unspecified; F41.8 Other specified anxiety disorders; Z79.52 Long term (current) use of systemic steroids; Z79.899 Other long term (current) drug therapy; Z79.890 Hormone replacement therapy; E66.813 Obesity, class 3; Z79.82 Long term (current) use of aspirin; Z85.828 Personal history of other malignant neoplasm of skin; Z79.51 Long term (current) use of inhaled steroids; R42 Dizziness and giddiness; Z96.611 Presence of right artificial shoulder joint; Z96.612 Presence of left artificial shoulder joint; Z90.49 Acquired absence of other specified parts of digestive tract; Z98.51 Tubal ligation status; Z96.659 Presence of unspecified artificial knee joint; Z96.649 Presence of unspecified artificial hip joint; Z87.891 Personal history of nicotine dependence
CPT/HCPCS: 36415; 71045; 71275; 74177; 80048; 80053; 80076; 81001; 83735; 83880; 84100; 84443; 84484; 85025; 93306; 94640; 94668; 94760; 97116; 97162; 97167; 97530; 99285; Q9967; A4216; J0744; J1938; J8610

== ENCOUNTER 2025-08-08 17:58 | Inpatient (IN) | payer MEDICARE, SELFPAY ==
--- NOTE | 2025-08-08 20:24 | HP.PCM_ITS ---
[facility] - General General Date of Admission: 08/08/25 Date of Service: 08/09/25 Chief Complaint: Here for rehabilitation. HPI Narrative SEVERIANO LEE, is a 79 Female who presents with followin08/05/2025 [facility] ED shortness of breath, lower extremity edema. Recent admission for GI bleed, atrial fibrillation, acute kidney injury. Short of breath, lower extremity edema, worse over past few weeks. She is taking Eliquis, urine dark, foul smelling, daughter concerned with UTI. Atrial fibrillation with RVR, HR 130 to 150, BNP 2339. UA c/w UTI, cipro given. Metoprolol given for atrial fibrillation with rvr. Lasix 40mg IV for acute HFpEF, CTA chest negative pulmonary embolism. 08/05/2025 Admit [facility]. Furosemide 40mg iv bid acute HFpEF. Cipro IV for uti. 08/06/2025 Echo EF 55 to 60%. Normal LV systolic function. 08/07/2025 Shortness of breath improved, left swelling better. Lasix 40mg IV bid, replace potassium, magnesium. Urine culture negative, stop Cipro. Pantoprazole 40mg bid for gastric ulcer. 08/08/2025 Admit to TCU with debility, here for rehabilitation, strengthening, prior to discharge home alone. [facility] Medical History (Updated 08/08/25 @ 20:[address] Kd Ybarra MD) Atrial fibrillation with RVR Morbid obesity with BMI of 40.0-44.9, adult Acute exacerbation of chronic heart failure History of upper gastrointestinal bleeding TRUMAN (acute kidney injury) Fatigue SCHULTZ (dyspnea on exertion) Leukocytosis Adverse drug reaction Upper GI bleed Melanotic stools ABLA (acute blood loss anemia) Atrial fibrillation Squamous cell skin cancer Skin lesion of hand Acute kidney injury Acute respiratory failure with hypoxia Lactic acidosis Vision disturbance Chronic pain syndrome Acute blood loss anemia Anxiety and depression Asthma HLD (hyperlipidemia) Morbid obesity GI bleed Hyperkalemia Hypertension History of rheumatoid arthritis Home Medications ?Medication ?Instructions ?Recorded ?Last Taken ?Type albuterol sulfate 90 mcg/actuation 1 - 2 puff inhalati on Q6H PRN PRN 03/15/15 10/09/16 History aerosol inhaler (ProAir HFA) Shortness Of Breath methotrexate sodium 2.5 mg tablet 20 mg PO MO Rheumato id arthritis 03/15/15 09/18/20 History folic acid 1 mg tablet 1 mg PO DAILY@0800 supplemen t #0 03/29/15 09/19/20 11:00 Rx TABLETS prednisone 10 mg tablet 10 mg PO PRN PRN arthritis f lare up 07/07/19 3 Days Ago History ~09/16/20 venlafaxine 150 mg 150 mg PO DAILY depression/a nxiety 07/07/19 09/19/20 11:00 History capsule,extended release 24 hr vitamins A,C,[id number] 2,148 1 tab PO DAILY EYE HE ALTH 07/07/19 09/19/20 11:00 History mcg-113 mg-45 mg-17.4 mg tablet magnesium oxide 400 mg PO DAILY SUPPLEMENT 1 11/19/19 09/19/20 11:00 History levothyroxine 100 mcg tablet 100 mcg PO DAILY throid 0 07/16/23 Unknown History meclizine 12.5 mg tablet 12.5 mg PO DAILY Nausea/vomi ting 07/16/23 Unknown History oxycodone-acetaminophen 10 mg-325 1 tab PO Q8H PRN heidi n 07/16/23 08/06/25 21:25 History mg tablet apixaban 5 mg tablet (Eliquis) 5 mg PO BID blood thinn er 07/09/25 Unknown History atorvastatin 40 mg tablet 40 mg PO DAILY cholesterol 0 07/09/25 Unknown History budesonide-formoterol HFA 80 1 puff inhalation Q12H br eathing 07/12/25 Unknown History mcg-4.5 mcg/actuation aerosol inhaler (Symbicort) nystatin 100,000 unit/gram topical 1 applic topical BI D SKIN #15 grams 07/12/25 Unknown Rx powder pantoprazole 40 mg tablet,delayed 40 mg PO BID GI #60 tabs 07/12/25 Unknown Rx release (Protonix) amitriptyline 10 mg tablet 10 mg PO QHS Antidepressant 08/05/25 08/07/25 21:20 History L.acidophil,salivari-Bifido 1 cap PO 2XD PROBIOTIC 7 d ays #14 08/08/25 Unknown Rx bifidum-Strep thermoph 175 mg caps capsule acetaminophen 325 mg tablet 650 mg (2 x 325 mg) PO Q6H PRN PRN 08/08/25 Unknown Rx Pain 1-5/10 Or Fever>100.7 #0 tabs cephalexin 500 mg capsule 500 mg PO Q8H UTI 6 days #18 caps 08/08/25 Unknown Rx furosemide 40 mg tablet (Lasix) 40 mg PO BID SWELLING #60 tabs 08/08/25 Unknown Rx metoprolol succinate 25 mg 125 mg (5 x 25 mg) PO DAILY BP #0 08/08/25 Unknown Rx tablet,extended release 24 hr tabs Allergy/AdvReac Type Severity Reaction Status Date / Time adhesive Allergy Other Verified 08/05/25 16:17 amoxicillin trihydrate (From Allergy Unknown Verified 08/05/25 16:17 Augmentin) latex Allergy Unknown Verified 08/05/25 16:17 Penicillins Allergy Unknown Verified 08/05/25 16:17 potassium clavulanate (From Allergy Unknown Verified 08/05/25 16:17 Augmentin) tetracycline Allergy Unknown Verified 08/05/25 16:17 Family History Sister Hypertension Brother Heart disease Mother Diabetes Heart disease Hypertension CVA (cerebral vascular accident) Skin cancer Father Prostate cancer Surgical History History of hand surgery History of reverse total replacement of left shoulder joint History of tonsillectomy History of appendectomy History of tubal ligation History of knee replacement History of hip replacement History of back surgery Status post reverse total replacement of right shoulder Social History household members: none Smoking Status: Former smoker alcohol intake: former substance use type: does not use ROS Constitutional Constitutional: Reports weakness; Denies chills, fever(s) or weight gain ENT HEENT: Denies headache(s), nasal congestion or nasal discharge Cardiovascular Cardiovascular: Denies chest pain or palpitations Respiratory/Chest Respiratory/Chest: Denies cough, excessive phlegm production or shortness of breath with exertion Gastrointestinal Gastrointestinal: Denies abdominal pain, nausea or vomiting Genitourinary Genitourinary: Denies dysuria Musculoskeletal Musculoskeletal: Denies joint pain or joint swelling Integumentary Integumentary: Denies rash or wounds Neurologic Neurologic: Denies focal weakness, numbness or tingling Psychiatric Psychiatric: Denies anxiety, auditory hallucinations, depression, homicidal ideation or suicidal ideation Physical Exam Const alert General Appearance: cooperative HEENT normocephalic Eyes PERRL and EOMs intact bilaterally Neck supple, no JVD and no carotid bruits Resp normal respiratory effort, normal air movement and clear to auscultation bilaterally Cardio regular rate and regular rhythm GI normal to inspection, nondistended, normoactive bowel sounds, non-tender and non-distended Extremity normal capillary refill General Extremity: Negative for edema Skin no rashes or lesions noted General Skin Exam: no breakdown Psych affect normal Appearance: appropriate Results Lab / Micro Data 08/09/25 07:01 08/09/25 07:01 Assessment & Plan Assessment/Plan (1) Debility: (2) Shortness of breath: (3) Acute heart failure with preserved ejection fraction (HFpEF): (4) Atrial fibrillation with RVR: (5) Urinary tract infection: (6) Essential (primary) hypertension: (7) Rheumatoid arthritis: (8) Depression: (9) Hypomagnesemia: (10) Hypothyroidism: (11) GERD (gastroesophageal reflux disease): (12) Cellulitis of both lower extremities: PLAN: Plan 79 year old female with below past medical history hospitalized for shortness of breath, bilateral lower extremity edema 2/2 acute HFpEF, atrial fibrillation with rvr, uti ruled out, admitted to TCU with debility, here for rehabilitation, strengthening, prior to discharge home alone. * Debility - PT/OT. * Pain - Tylenol 1000mg q6 prn pain (1-5), Oxycodone 5mg q4 prn pain (6-10). * Bowel - senna/colace 2 tablets bid, Magnesium citrate 300mL daily prn. * Adult immunization - Administer pneumonia vaccine, covid vaccine, flu vaccine as appropriate. * DVT prophylaxis - Eliquis. * Asthma - Budesonide 0.5mg q12, Albuterol 1-2 puff q6 prn. * Atrial fibrillation - Metoprolol succinate 125mg daily, Eliquis 5mg bid. * Hyperlipidemia - Atorvastatin 40mg qhs. * Cellulitis bilateral lower extremity - Keflex 500mg q8 thru 08/14/2025. * Chronic HFpEF - Metoprolol succinate 125mg daily, Furosemide 40mg bid. * GI prophylaxis - Lactobacillus 1 capsule bid. * Hypothyroidism - Levothyroxine 100mg daily. * Hypomagnesemia - Magnesium chloride 128mg daily. * RA - MTX 20mg qweek, folic acid 1mg daily, Prednisone 10mg daily prn. * Macular Degeneration - Healthy Eyes 1 capsule daily. * Tinea Corporis - Nystatin powder topical bid, Fluconazole 100mg daily x 7 days. * GERD - Pantoprazole 40mg bid. * Insomnia - Melatonin 3mg qhs prn. The following psychotropic medication was present on admission: Elavil 10mg qhs. Psychotropic medication therapy is indicated for a diagnosis of: Insomnia. Based on my clinical evaluation, continuation of the medication is necessary at this time. Gradual dose reduction plan (select one): ____ GDR will be attempted. Will monitor patient symptoms and behaviors in response to GDR. __x__ GRD contraindicated. Reason contraindicated: stable chronic group home use. The following psychotropic medication was present on admission: Venlafaxine XR 150mg daily. Psychotropic medication therapy is indicated for a diagnosis of: Major Depression. Based on my clinical evaluation, continuation of the medication is necessary at this time. Gradual dose reduction plan (select one): ____ GDR will be attempted. Will monitor patient symptoms and behaviors in response to GDR. _x___ GRD contraindicated. Reason contraindicated: stable chronic group home use.
[2025-08-08] MEDS: Senna/Docusate Sodium 1 Tablet 2 TABLET PO (21:21)
[2025-08-08] MEDS: Lactobacillis Acidophilus 1 CAP PO (21:23)
[2025-08-08] MEDS: APIXABAN 5 MG TABLET PO (21:24)
[2025-08-08 22:00] VITALS: PULSE 81; RESP 18; O2SAT 96; BMI 40.9
[2025-08-08 22:27] VITALS: BP 108/46; PULSE 81; RESP 18; TEMP 36.9; O2SAT 96
--- NOTE | 2025-08-08 23:37 | NURSING ---
Patient refused vaccinations despite education, states I'm already up to date on my pneumonia vaccine and I don't take flu vaccines ever, I don't like them
[2025-08-09 04:08] VITALS: BMI 40.0
[2025-08-09 05:40] VITALS: BP 120/73; PULSE 89
--- NOTE | 2025-08-09 06:36 | NURSING ---
Apparent yeast/redness underarms, under breasts, under back skin folds, under abd fold, groin area, upper thighs. Written communication left for Dr. Ybarra.
[2025-08-09 07:19] LABS: Hematocrit 32.2 % (37-47); Hemoglobin 10.2 g/dL (12.0-15.0); Immature Granulocytes Count 0.030 X10^3/uL (0.0-0.0); Mean Corp Hgb Conc 31.7 g/dL (32-36); Mean Corpuscular Volume 95.3 fL (81-99); Mean Platelet Vol. 10.8 fl (6.2-12.0); NRBC Flagged by Analyzer 0 % (0-5); Platelet Count 217 K/mm3 (150-450); RBC Distribution Width CV 17.4 % (11.6-14.6); RBC Distribution Width SD 59.6 fl (35.1-43.9); Red Blood Count 3.38 M/mm3 (4.2-5.4); White Blood Count 7.6 K/mm3 (4.4-11.0)
[2025-08-09 08:07] LABS: Anion Gap 13 (5-15); BUN 12 mg/dL (4-19); BUN/Creat Ratio 11.0 RATIO (10-20); Calcium,Total 9.2 mg/dL (7.6-11.0); Carbon Dioxide 26.9 mmol/L (21.0-32.0); Chloride 99 mmol/L (98-108); Estimated Creatinine Clearance 53.37 ml/min (50-250); Glucose 93 mg/dL (70-99); Potassium 4.1 mmol/L (3.3-5.1)
[2025-08-09] MEDS: Multivitamin (Healthy Eyes) Capsule 1 CAP PO (09:43)
[2025-08-09] MEDS: Lactobacillis Acidophilus 1 CAP PO ×2 (09:43→21:29)
[2025-08-09 09:44] VITALS: BP 103/56; PULSE 77
[2025-08-09] MEDS: Metoprolol(XL)Succ 25 MG Tablet 125 MG PO (09:44)
[2025-08-09] MEDS: Magnesium Chloride 64 MG Delay Rel.Tablet 128 MG PO (09:45)
[2025-08-09] MEDS: APIXABAN 5 MG TABLET PO ×2 (09:45→21:29)
[2025-08-09] MEDS: Tuberculin,Purif.prot.deriv. 50 TU/ML Vial 0.1 ML ID (09:50)
[2025-08-09 10:00] VITALS: BP 103/56; PULSE 77; RESP 16; TEMP 36.7; O2SAT 93
[2025-08-09 13:50] VITALS: PULSE 74; RESP 16; O2SAT 93
[2025-08-09] MEDS: Budesonide Respules 0.5 MG/2 ML AMPUL.NEB. INHALATION ×2 (13:50→20:30)
--- NOTE | 2025-08-09 14:03 | CASEMGMT ---
Social Work SW met with patient to complete initial assessment. Introduced self and role. Verified contacts. SW educated to [facility] insurance with [employer] 08/10 and continued stay is not guaranteed with each review. See SW assessment for pt's history and concerns for DC home. SW referred to Care Coordination program with [facility] to determine eligibility for community assistance. SW will continue to follow for DC planning. Tiffany Hernandez [employer]ATOR
--- NOTE | 2025-08-09 14:26 | WOUNDNOTE ---
wound photo: jean cleft
--- NOTE | 2025-08-09 14:27 | WOUNDNOTE ---
wound photo: right buttock
--- NOTE | 2025-08-09 14:49 | PCM.PN.DRR ---
Documented by User: Chris Guevara 08/09/25 15:26 TCU RX Drug Regimen Review Subjective/Objective Subjective/Objective Subjective: TCU admission note. 79 year old female with below past medical history hospitalized for shortness of breath, bilateral lower extremity edema 2/2 acute HFpEF, atrial fibrillation with rvr, uti ruled out, admitted to TCU with debility, here for rehabilitation, strengthening, prior to discharge home alone. Objective: Allergies adhesive Allergy (Verified 08/05/25 16:17) Other amoxicillin trihydrate (From Augmentin) Allergy (Verified 08/05/25 16:17) Unknown latex Allergy (Verified 08/05/25 16:17) Unknown Penicillins Allergy (Verified 08/05/25 16:17) Unknown potassium clavulanate (From Augmentin) Allergy (Verified 08/05/25 16:17) Unknown tetracycline Allergy (Verified 08/05/25 16:17) Unknown Current Medications Generic Name Dose Route Start Last Admin Trade Name Freq PRN Reason Stop Dose Admin Acetaminophen 1,000 mg 08/08/25 20:33 Acetaminophen 500 Mg Tablet PO Q6H PRN PRN Pain Score 1-5 Albuterol Sulfate 1 - 2 puff 08/08/25 19:02 Albuterol Ih (6.7 Gm) 1 Puff Inhaler INHALATION Q6H PRN PRN SHORTNESS OF BREATH Amitriptyline HCl 10 mg 08/08/25 22:00 08/08/25 21:23 Amitriptyline 10 Mg Tablet PO 10 mg QHS MARIE Administration Apixaban 5 mg 08/08/25 22:00 08/09/25 09:45 Apixaban 5 Mg Tablet PO 5 mg BID MARIE Administration Atorvastatin Calcium 40 mg 08/09/25 10:00 08/09/25 09:45 Atorvastatin Calcium 40 Mg Tablet PO 40 mg DAILY MARIE Administration Budesonide 0.5 mg 08/08/25 19:15 08/09/25 13:50 Budesonide Respules 0.5 Mg/2 Ml Ampul.Neb. INHALATION 0.5 mg Q12H.RT MARIE Administration Cephalexin 500 mg 08/08/25 22:00 08/09/25 13:49 Cephalexin 500 Mg Capsule PO 08/14/25 14:01 500 mg Q8H MARIE Administration Fluconazole 100 mg 08/09/25 10:00 08/09/25 09:44 Fluconazole 100 Mg Tablet PO 08/16/25 10:01 100 mg DAILY MARIE Administration Folic Acid 1 mg 08/09/25 08:00 08/09/25 09:43 Folic Acid 1 Mg Tablet PO 1 mg BREAKFAST MARIE Administration Furosemide 40 mg 08/09/25 06:00 08/09/25 13:49 Furosemide 40 Mg Tablet PO 40 mg BIDLX [facility] Administration Protocol Levothyroxine Sodium 100 mcg 08/09/25 06:00 08/09/25 05:35 Levothyroxine 100 Mcg Tablet PO 100 mcg DAILY@0600 [facility] Administration Magnesium Chloride 128 mg 08/09/25 10:00 08/09/25 09:45 Magnesium Chloride 64 Mg Delay Rel.Tablet PO 128 mg DAILY MARIE Administration Magnesium Citrate 300 ml 08/08/25 20:32 Magnesium Citrate 300 Ml PO DAILY PRN Constipation Meclizine HCl 12.5 mg 08/09/25 10:00 08/09/25 09:43 Meclizine 12.5 Mg Tablet PO 12.5 mg DAILY MARIE Administration Melatonin 3 mg 08/09/25 07:40 Melatonin 3 Mg Tablet PO QHS PRN INSOMNIA Methotrexate 20 mg 08/15/25 10:00 Methotrexate 2.5 Mg Tablet PO MO MARIE Metoprolol Succinate 125 mg 08/09/25 10:00 08/09/25 09:44 Metoprolol(Xl)Succ 25 Mg Tablet PO 125 mg DAILY [facility] Administration Protocol Multivitamins/Minerals 1 cap 08/09/25 10:00 08/09/25 09:43 Multivitamin (Healthy Eyes) Capsule PO 1 cap DAILY [facility] Administration Nystatin 1 applic 08/08/25 22:00 08/09/25 09:52 Nystatin Powder 15gm Bottle TOPICAL 1 applic BID [facility] Administration Protocol Oxycodone HCl 5 mg 08/08/25 20:32 Oxycodone 5 Mg Tablet PO Q4H PRN PRN Pain Score 6-10 or Pre PT/OT Pantoprazole Sodium 40 mg 08/08/25 22:00 08/09/25 09:45 Pantoprazole Sodium 40 Mg Tablet PO 40 mg BID [facility] Administration Prednisone 10 mg 08/08/25 18:34 Prednisone 10 Mg Tablet PO PRN PRN arthritis flare up Senna/Docusate Sodium 2 tablet 08/08/25 22:00 08/09/25 09:45 Senna/Docusate Sodium 1 Tablet PO Not Given BID [facility] Tuberculin PPD 0.1 ml 08/16/25 10:00 Tuberculin,Purif.Prot.Deriv. 50 Tu/Ml Vial ID 08/16/25 10:01 X1 ONE Venlafaxine HCl 150 mg 08/09/25 10:00 08/09/25 09:43 Venlafaxine Xr 150 Mg Capsule PO 150 mg DAILY MARIE Administration Problem List Cellulitis of both lower extremities (Acute) GERD (gastroesophageal reflux disease) (Acute) Hypothyroidism (Acute) Hypomagnesemia (Acute) Depression (Acute) Rheumatoid arthritis (Acute) Essential (primary) hypertension (Acute) Urinary tract infection (Acute) Atrial fibrillation with RVR (Acute) Acute heart failure with preserved ejection fraction (HFpEF) (Acute) Shortness of breath (Acute) Debility (Acute) Vital Signs Temp Pulse Resp BP Pulse Ox O2 Del Method 98.0 F 74 16 103/56 L 93 Room Air 08/09/25 10:00 08/09/25 13:50 08/09/25 13:50 08/09/25 10:00 08/09/25 13:50 08/09/25 13:50 Oxygen Delivery Method Room Air Weight: 109.044 kg Body Mass Index (BMI) 40.0 Sodium 139 mmol/L (133-145) 08/09/25 07:01 Potassium 4.1 mmol/L (3.3-5.1) 08/09/25 07:01 Chloride 99 mmol/L (98-108) 08/09/25 07:01 Carbon Dioxide 26.9 mmol/L (21.0-32.0) 08/09/25 07:01 Anion Gap 13 (5-15) 08/09/25 07:01 BUN 12 mg/dL (4-19) 08/09/25 07:01 Creatinine 1.05 mg/dL (0.70-1.20) 08/09/25 07:01 Est GFR (MDRD) Non-Af 54 (>60) L 08/09/25 07:01 BUN/Creatinine Ratio 11.0 RATIO (10-20) 08/09/25 07:01 Glucose 93 mg/dL (70-99) 08/09/25 07:01 Assessment/Plan: 1. Pain: acetaminophen 1000 mg PO Q6H PRN pain (1-5), oxycodone 5 mg PO Q4H PRN pain (6-10). Resident has not used any prn doses at this time. Last LFTs: 15/12 U/L on 08/06/25. Check LFTs if resident develops symptoms of hepatoxicity. Consider monitoring LFTs if patient using > 3 gm/day of acetaminophen for prolonged period. Do not exceed 4000 mg in 24 hours. Monitor for constipation (last BM: 08/05/25), respiratory depression (current RR range: 16-20 breaths/min), falls and sedation/delirium (Angie). 2. Bowel: senna/docusate 2 tablets Po BID, magnesium citrate 300 mL PO daily PRN constipation. Resident has not used any prn doses at this time. Last document bowel movement: 08/05/25. Monitor for usage of prn medications, abdominal pain, frequency of bowel movements, diarrhea. Recommend holding bowel regimen if resident develops diarrhea. 3. Atrial fibrillation/chronic HFpEF: metoprolol succinate 125 mg PO daily, apixaban 5 mg PO BID, furosemide 40 mg PO BID. Last echo EF: 55-60%? BP range since admission = 91-125/46-73 mmHg. HR range since admission 71-89 beats/min. Monitor volume status (weight, lower extremity edema, JVD, lung examination) and for symptoms of exacerbation (SOB, dyspnea on exertion, orthopnea, edema, fatigue, wet cough or frothy/pink mucous).Rate appears adequately controlled. Monitor heart rate, blood pressure, exercise capacity and for symptoms including palpitations, fatigue, dizziness, dyspnea, chest pain. Monitor for bradyarrhythmia, fatigue, sleep disturbance and for new/worsening heart failure symptoms. For diabetic patients, monitor glucose. Monitor renal function ( Scr = 1.05 mg/dL on 08/09/25) and body weight (Wt = 109 kg on 08/09/25). Monitor for symptoms of bleeding (including melena, hemoptysis, hematuria, epistaxis, new-onset headache), hemoglobin (last Hgb = 10.2 g/dL). Monitor serum potassium (last K = 4.1mmol/L on 08/09/25)), magnesium (last Mg= 1.9 mg/dL on 08/05/25), calcium (last Ca =9.2 mg/dL on 08/09/25) and sodium (last Na = 139 mmol/L on 08/09/25).? 4. Bilateral lower extremity cellulitis: cephalexin 500 mg PO Q8 through 08/14/24. Please continue to monitor for s/s of an infection, WBC counts (WBC = 7.6 K/mm3 on 08/09/25), fever (T = 98.0F on 08/09/25), chills, and for renal function (serum creatinine = 1.05 mg/dL with creatinine clearance ~ 53 mL/min on 08/09/25). 5. Hyperlipidemia: atorvastatin 40 mg PO QHS. Please continue to monitor lipid levels (cholesterol = 161 mg/dL with LDL = 74 mg/dL on 10/25/24), LFTs (AST/ALT = 15/12 U/L on 08/06/25), and for myalgias. 6. Asthma: budesonide 0.5 mg PO Q12H, albuterol 1-2 puffs every 6 hours as needed for shortness of breath. Please continue to monitor for s/s of an asthma exacerbation such as shortness of breath and cough, as well as for s/s of oral thrush. 7. Hypothyroidism: levothyroxine 100 mcg PO daily. Please continue to monitor thyroid hormone levels (TSH = 2.770 uIU/mL on 08/06/25), and for s/s of hypo/hyperthyroidism. 8. Rheumatoid arthritis: methotrexate 20 mg every week, folic acid 1 mg PO daily, prednisone 10 mg PO daily PRN arthritis flare. The patient has not required any PRN doses of prednisone so far this admission. Please continue to monitor for arthritis flares, for abdominal pain, vomiting, nausea, for anemia (Hgb = 10.2 g/dL on 08/09/25), WBC counts (WBC = 7.6 K/mm3 on 08/09/25), platelet counts (Plt = 217 K/mm3 on 08/09/25), LFTs (AST/ALT = 15/12 U/L on 08/06/25), for s/s of methotrexate toxicity, and for PRN medication usage. 9. GERD: pantoprazole 40 mg PO daily. Monitor for symptoms of GERD including heartburn, reflux, nausea after meals. Encourage nonpharmacologic therapies including elevating head of bed at bedtime, smaller meals and avoidance of trigger foods as appropriate for resident. 10. Tinea corporis: nystatin powder topically BID, fluconazole 100 mg PO daily through 08/16/25. Please continue to monitor for resolution of tinea corporis and renal function (serum creatinine = 1.05 mg/dL with creatinine clearance ~ 53 mL/min on 08/09/25). 11. Hypomagnesemia: magnesium chloride 128 mg PO daily. Please continue to monitor magnesium levels (Mg = 1.9 mg/dL on 08/05/25), and for s/s of hypomagnesemia. 12. Insomnia: melatonin 3 mg PO QHS PRN insomnia. The patient has not required any PRN doses of melatonin so far this admission. Please continue to monitor for PRN medication usage, for insomnia, and for drowsiness. 13. Nausea/vomiting: meclizine 12.5 mg PO daily (indication from home med list). Please continue to monitor for nausea/vomiting, for dizziness/drowsiness, and for dry mouth and dry eyes. 14. Macular degeneration: healthy eyes 1 capsule PO daily. Please continue to monitor eye health. 15. GI prophylaxis: lactobacillus 1 capsule PO BID. Please continue to monitor GI health. Assessment/Plan for indications treated with psychotropic medications: 1. Insomnia: amitriptyline 10 mg PO QHS. Please see provider not regarding stable chronic long-term therapy GDR not recommended. Monitor for efficacy including resident symptoms, behaviors and indications of distress. Monitor for insomnia. Monitor for tolerability including mental status, cognition, excessive sleepiness, withdrawal or decreased participation in activities and decline in physical functioning. Maximize use of nonpharmacologic/behavioral interventions to facilitate dose reduction or discontinuation as appropriate.Please evaluate the appropriateness of GDR unless contraindicated. If appropriate, GDR should be attempted in 2 separate quarters within the first year of use or admission to TCU.If GDR attempted, monitor resident symptoms/behaviors. Monitor for drowsiness, dizziness, headache and fatigue. 2. Major Depression: venlafaxine 150 mg XR PO Daily. Please see provider not regarding stable chronic long-term therapy GDR not recommended. Monitor for efficacy including resident symptoms, behaviors and indications of distress. Monitor for depression and SI. Monitor for tolerability including mental status, cognition, excessive sleepiness, withdrawal or decreased participation in activities and decline in physical functioning. Maximize use of nonpharmacologic/behavioral interventions to facilitate dose reduction or discontinuation as appropriate. Please evaluate the appropriateness of GDR unless contraindicated. If appropriate, GDR should be attempted in 2 separate quarters within the first year of use or admission to TCU. If GDR attempted, monitor resident symptoms/behaviors. Monitor for diarrhea, nausea, appetite/weight loss, anxiety or drowsiness, suicidal thoughts or behaviors (Boxed Warning), symptoms of bleeding, symptoms of serotonin syndrome (including agitation, confusion, hyperreflexia, rigidity/myoclonus, tremor, tachycardia, tachypnea), sodium levels (last Na = 139 mmol/L on 08/09/25). Monitor blood pressure . BP range since admission = 91-125/46-73 mmHg. Monitor for orthostatic hypotension, including postural dizziness, syncope or falls. Check orthostatic vital signs if suspicion of orthostasis. Monitor for hepatotoxicity (abdominal pain, nausea, jaundice, dark urine, AST/ALT as clinically indicated). AST/ALT = 15/12 U/L on 08/06/25 Medical chart and medication regimen reviewed. The following medication irregularities or issues were identified: No recommendations for resident at this time. Date Date of Note: 08/09/25 Documented by User: Dr. Kd Ybarra MD 08/09/25 16:13 TCU RX Drug Regimen Review Provider Comments Provider responsibility Provider Comments to Recommendations by Pharmacy Agree
[2025-08-09 20:07] VITALS: PULSE 75; RESP 18; O2SAT 95
[2025-08-09 20:31] VITALS: PULSE 74; RESP 16
[2025-08-10 05:42] VITALS: BP 101/57; PULSE 91
[2025-08-10 07:00] VITALS: PULSE 71; RESP 18
[2025-08-10] MEDS: Budesonide Respules 0.5 MG/2 ML AMPUL.NEB. INHALATION (07:05)
[2025-08-10] MEDS: Lactobacillis Acidophilus 1 CAP PO ×2 (09:26→20:49)
[2025-08-10] MEDS: APIXABAN 5 MG TABLET PO ×2 (09:27→20:49)
[2025-08-10] MEDS: Multivitamin (Healthy Eyes) Capsule 1 CAP PO (09:27)
[2025-08-10] MEDS: Magnesium Chloride 64 MG Delay Rel.Tablet 128 MG PO (09:27)
[2025-08-10 09:29] VITALS: BP 97/53; PULSE 85
[2025-08-10 09:37] VITALS: BP 97/53; PULSE 85; RESP 18; TEMP 36.8; O2SAT 93
--- NOTE | 2025-08-10 11:30 | NURSING ---
PT AND FAMILY UPDATED ON COVID POSITIVE PT ON FLOOR.
[2025-08-10 14:00] VITALS: BP 95/54; PULSE 96; RESP 18; O2SAT 94
--- NOTE | 2025-08-10 15:12 | CASEMGMT ---
Social Work SW received update from [facility] referral and pt is in the process already of obtaining waiver services. Tiffany Hernandez SPORTING GOODS SALESPERSON WINE FERMENTER
--- NOTE | 2025-08-10 15:18 | NURSING ---
Surveillance Sensor Officer Note; activity Asset: Terra Meyer is independent in her choice of daily activities w/reminders. Betsy has Macular degeneration and is unable to see. She can see shadows w/her glasses but not well. She stated she listens to the tv but can not see it. She did not want a radio said tv will do. Staff will visit w/her weekly and encourage social activities, sitting in day room along w/meals there for extra socialization. She welcomes the housing assistant property manager and therapy dog when available. Staff will respect her right to say no.
[2025-08-10] MEDS: Senna/Docusate Sodium 1 Tablet 2 TABLET PO (20:57)
[2025-08-11] VITALS (7 sets, daily range): BP systolic 105–109; BP diastolic 57–64; PULSE 82–103; RESP 16–18; TEMP 36.4; O2SAT 92–94; BMI 40.1
[2025-08-11] MEDS: Budesonide Respules 0.5 MG/2 ML AMPUL.NEB. INHALATION ×2 (08:20→19:25)
[2025-08-11] MEDS: Lactobacillis Acidophilus 1 CAP PO ×2 (10:00→20:51)
[2025-08-11] MEDS: APIXABAN 5 MG TABLET PO ×2 (10:01→20:51)
[2025-08-11] MEDS: Multivitamin (Healthy Eyes) Capsule 1 CAP PO (10:01)
[2025-08-11] MEDS: Magnesium Chloride 64 MG Delay Rel.Tablet 128 MG PO (10:02)
[2025-08-11] MEDS: Metoprolol(XL)Succ 25 MG Tablet 125 MG PO (10:02)
--- NOTE | 2025-08-11 14:33 | NURSING ---
THERAPY ASKED THIS NURSE IF I WANTED TO SEE PT AFTER SHOWER FOR SKIN ASSESSMENT. AT ASSESSMENT FOUND PT HAS ANOTHER SHEARING SPOT BELOW OTHER ONE ON RT BUTT CHEEK ALSO UNDER ABDOMINAL FOLDS ARE NOW OPEN BLEEDING AREAS. POWDER AND INTERDRY APPLIED WITH RN. CALLED AND LEFT MESSAGE WITH ELIZABETH GARCIA/WOUND NURSE.
[2025-08-12 05:05] VITALS: BP 112/76; PULSE 80
[2025-08-12 05:18] VITALS: BMI 39.6
[2025-08-12 06:53] VITALS: PULSE 81; RESP 18; O2SAT 93
[2025-08-12] MEDS: Budesonide Respules 0.5 MG/2 ML AMPUL.NEB. INHALATION ×2 (06:53→19:46)
[2025-08-12 09:25] VITALS: BMI 40.0
[2025-08-12] MEDS: Lactobacillis Acidophilus 1 CAP PO ×2 (09:58→22:40)
[2025-08-12] MEDS: APIXABAN 5 MG TABLET PO ×2 (10:00→22:41)
[2025-08-12] MEDS: Multivitamin (Healthy Eyes) Capsule 1 CAP PO (10:01)
[2025-08-12 10:02] VITALS: BP 107/60; PULSE 87
[2025-08-12] MEDS: Metoprolol(XL)Succ 25 MG Tablet 125 MG PO (10:02)
[2025-08-12] MEDS: Magnesium Chloride 64 MG Delay Rel.Tablet 128 MG PO (10:02)
[2025-08-12] MEDS: Senna/Docusate Sodium 1 Tablet 2 TABLET PO (10:10)
[2025-08-12 10:25] VITALS: BP 107/60; PULSE 87; RESP 16; TEMP 36.3; O2SAT 91
--- NOTE | 2025-08-12 12:12 | CASEMGMT ---
Social Work SW completed BIMS () and PHQ-2 () for MDS assessment. SW informed pt that insurance update is 08/15 and EDC 08/20. SW inquired about inviting dtr's to attend therapy to determine if they can assist pt at home in preparation for DC. Pt agreed. - ALFRED phoned dtr, Demi, but no answer and no VM set up. SW phoned dtr, Sharlene, and Sharlene agreed to schedule training. Sharlene stated today she is having an RA flare up and she drives a stick shift car. SW requested Friday. Dtr agreed. Dtr stated her sister is still sleeping and scheduling 3PM or after would be best. SW explained therapy happens sooner in the day and offered 2PM. Sharlene agreed and will talk with Demi and if there is an issue, to contact this worker. Sharlene agreed. SW notified therapy. SW will continue to follow. Tiffany Hernandez ASSOCIATE PROFESSOR OF ART DRIER OPERATOR HEAD
--- NOTE | 2025-08-12 13:56 | NURSING ---
Discussed code status with resident, she confirms she does not want chest compressions/intubation, wants to be DNR-CCA. She is unable to sign form d/t vision loss. Left DNR form for Dr. Cardenas to review and sign.
[2025-08-12 19:46] VITALS: PULSE 84; RESP 12
[2025-08-12 22:25] VITALS: PULSE 75; RESP 16; O2SAT 94
[2025-08-13 06:00] VITALS: BMI 39.3
[2025-08-13 07:15] VITALS: PULSE 78; RESP 17; O2SAT 94
[2025-08-13] MEDS: Budesonide Respules 0.5 MG/2 ML AMPUL.NEB. INHALATION ×2 (07:15→19:08)
[2025-08-13 10:00] VITALS: BP 103/57; PULSE 86; RESP 17; TEMP 36.9; O2SAT 96
[2025-08-13] MEDS: Lactobacillis Acidophilus 1 CAP PO ×2 (10:02→21:57)
[2025-08-13] MEDS: Magnesium Chloride 64 MG Delay Rel.Tablet 128 MG PO (10:04)
[2025-08-13] MEDS: Multivitamin (Healthy Eyes) Capsule 1 CAP PO (10:04)
[2025-08-13] MEDS: APIXABAN 5 MG TABLET PO ×2 (10:04→21:56)
[2025-08-13 10:05] VITALS: PULSE 94
[2025-08-13] MEDS: Metoprolol(XL)Succ 25 MG Tablet 125 MG PO (10:05)
[2025-08-13] MEDS: Senna/Docusate Sodium 1 Tablet 2 TABLET PO (10:07)
[2025-08-13 14:36] VITALS: BP 112/62; PULSE 82
[2025-08-13 19:08] VITALS: PULSE 87; RESP 18
[2025-08-13] MEDS: Petrolatum 33% Tube 1 APPLIC TOPICAL (21:54)
[2025-08-14 04:38] VITALS: BMI 39.4
[2025-08-14] MEDS: Budesonide Respules 0.5 MG/2 ML AMPUL.NEB. INHALATION ×2 (07:15→20:23)
[2025-08-14 07:33] VITALS: PULSE 81; RESP 17
[2025-08-14 09:35] VITALS: PULSE 83
[2025-08-14] MEDS: APIXABAN 5 MG TABLET PO ×2 (09:35→21:25)
[2025-08-14] MEDS: Metoprolol(XL)Succ 25 MG Tablet 125 MG PO (09:35)
[2025-08-14] MEDS: Lactobacillis Acidophilus 1 CAP PO ×2 (09:36→21:24)
[2025-08-14] MEDS: Multivitamin (Healthy Eyes) Capsule 1 CAP PO (09:36)
[2025-08-14] MEDS: Magnesium Chloride 64 MG Delay Rel.Tablet 128 MG PO (09:36)
[2025-08-14] MEDS: Senna/Docusate Sodium 1 Tablet 2 TABLET PO (09:39)
[2025-08-14 10:14] VITALS: BP 111/61; PULSE 83; RESP 15; TEMP 36.4; O2SAT 93
[2025-08-14 15:18] VITALS: BP 98/56
[2025-08-14 15:19] VITALS: BP 93/55
[2025-08-14 20:25] VITALS: PULSE 82; RESP 18
[2025-08-14] MEDS: Petrolatum 33% Tube 1 APPLIC TOPICAL (21:25)
[2025-08-15] VITALS (8 sets, daily range): BP systolic 94–130; BP diastolic 55–68; PULSE 75–85; RESP 16–18; TEMP 36.3; O2SAT 95; BMI 39.6; BMI 39.3
[2025-08-15] MEDS: Budesonide Respules 0.5 MG/2 ML AMPUL.NEB. INHALATION ×2 (08:20→20:00)
--- NOTE | 2025-08-15 08:42 | NURSING ---
Spray Maker Note; MDS for 08/15/2025 Complete
[2025-08-15] MEDS: Lactobacillis Acidophilus 1 CAP PO ×2 (09:47→21:13)
[2025-08-15] MEDS: APIXABAN 5 MG TABLET PO ×2 (09:49→21:14)
[2025-08-15] MEDS: Magnesium Chloride 64 MG Delay Rel.Tablet 128 MG PO (09:49)
[2025-08-15] MEDS: Multivitamin (Healthy Eyes) Capsule 1 CAP PO (09:49)
[2025-08-15] MEDS: Metoprolol(XL)Succ 25 MG Tablet 125 MG PO (10:53)
--- NOTE | 2025-08-15 13:37 | NURSING ---
Offered covid vaccine, VIS provided. Resident declines.
--- NOTE | 2025-08-15 16:16 | WOUNDNOTE ---
wound photo: abdominal fold
--- NOTE | 2025-08-15 16:17 | WOUNDNOTE ---
wound photo: abdominal fold
--- NOTE | 2025-08-15 16:18 | WOUNDNOTE ---
wound photo: right buttock
--- NOTE | 2025-08-15 16:19 | WOUNDNOTE ---
wound photo: jean cleft
[2025-08-15] MEDS: Petrolatum 33% Tube 1 APPLIC TOPICAL (21:14)
[2025-08-16 05:14] VITALS: BP 125/71; PULSE 77
[2025-08-16 07:27] VITALS: PULSE 78; RESP 19
[2025-08-16] MEDS: Budesonide Respules 0.5 MG/2 ML AMPUL.NEB. INHALATION (07:28)
[2025-08-16 08:08] LABS: Hematocrit 32.3 % (37-47); Hemoglobin 9.9 g/dL (12.0-15.0); Immature Granulocytes Count 0.050 X10^3/uL (0.0-0.0); Mean Corp Hgb Conc 30.7 g/dL (32-36); Mean Corpuscular Volume 97.0 fL (81-99); Mean Platelet Vol. 10.9 fl (6.2-12.0); NRBC Flagged by Analyzer 0 % (0-5); Platelet Count 353 K/mm3 (150-450); RBC Distribution Width CV 17.4 % (11.6-14.6); RBC Distribution Width SD 59.7 fl (35.1-43.9); Red Blood Count 3.33 M/mm3 (4.2-5.4); White Blood Count 7.5 K/mm3 (4.4-11.0)
[2025-08-16 08:31] LABS: Anion Gap 10 (5-15); BUN 18 mg/dL (4-19); BUN/Creat Ratio 15.9 RATIO (10-20); Calcium,Total 9.5 mg/dL (7.6-11.0); Carbon Dioxide 28.2 mmol/L (21.0-32.0); Chloride 101 mmol/L (98-108); Estimated Creatinine Clearance 47.85 ml/min (50-250); Glucose 96 mg/dL (70-99); Potassium 4.8 mmol/L (3.3-5.1)
[2025-08-16 08:45] VITALS: BP 99/65; PULSE 87
[2025-08-16] MEDS: Lactobacillis Acidophilus 1 CAP PO ×2 (08:46→21:40)
[2025-08-16] MEDS: APIXABAN 5 MG TABLET PO ×2 (08:47→21:40)
[2025-08-16] MEDS: Magnesium Chloride 64 MG Delay Rel.Tablet 128 MG PO (08:47)
[2025-08-16] MEDS: Multivitamin (Healthy Eyes) Capsule 1 CAP PO (08:47)
[2025-08-16] MEDS: Senna/Docusate Sodium 1 Tablet 2 TABLET PO (08:49)
[2025-08-16 10:14] VITALS: BP 97/49; PULSE 85; RESP 17; TEMP 36.6
[2025-08-16 10:17] VITALS: PULSE 85
[2025-08-16] MEDS: Tuberculin,Purif.prot.deriv. 50 TU/ML Vial 0.1 ML ID (10:18)
[2025-08-16 14:46] VITALS: BP 102/64; PULSE 80
[2025-08-16] MEDS: Petrolatum 33% Tube 1 APPLIC TOPICAL (21:40)
[2025-08-17 04:52] VITALS: BMI 39.3
[2025-08-17 07:35] VITALS: PULSE 101; RESP 18
[2025-08-17] MEDS: Budesonide Respules 0.5 MG/2 ML AMPUL.NEB. INHALATION (07:35)
[2025-08-17 08:05] LABS: Hematocrit 32.2 % (37-47); Hemoglobin 10.3 g/dL (12.0-15.0); Immature Granulocytes Count 0.020 X10^3/uL (0.0-0.0); Mean Corp Hgb Conc 32.0 g/dL (32-36); Mean Corpuscular Volume 94.4 fL (81-99); Mean Platelet Vol. 10.8 fl (6.2-12.0); NRBC Flagged by Analyzer 0 % (0-5); Platelet Count 367 K/mm3 (150-450); RBC Distribution Width CV 17.4 % (11.6-14.6); RBC Distribution Width SD 58.8 fl (35.1-43.9); Red Blood Count 3.41 M/mm3 (4.2-5.4); White Blood Count 7.0 K/mm3 (4.4-11.0)
[2025-08-17 08:31] LABS: Anion Gap 11 (5-15); BUN 19 mg/dL (4-19); BUN/Creat Ratio 17.5 RATIO (10-20); Calcium,Total 9.2 mg/dL (7.6-11.0); Carbon Dioxide 27.3 mmol/L (21.0-32.0); Chloride 101 mmol/L (98-108); Estimated Creatinine Clearance 52.35 ml/min (50-250); Glucose 110 mg/dL (70-99); Potassium 4.4 mmol/L (3.3-5.1); Pro- Brain NATRIURETIC PEPTIDE 2033 pg/mL (<=1800)
[2025-08-17 08:36] VITALS: BP 96/61; PULSE 103; RESP 17; TEMP 36.4; O2SAT 93
[2025-08-17] MEDS: Lactobacillis Acidophilus 1 CAP PO ×2 (08:37→22:24)
[2025-08-17] MEDS: APIXABAN 5 MG TABLET PO ×2 (08:38→22:24)
[2025-08-17] MEDS: Magnesium Chloride 64 MG Delay Rel.Tablet 128 MG PO (08:39)
[2025-08-17] MEDS: Multivitamin (Healthy Eyes) Capsule 1 CAP PO (08:39)
--- NOTE | 2025-08-17 13:46 | CASEMGMT ---
Social Work IDT met with patient, two dtrs and niece for care plan meeting. Discussed patient's progress in PT/OT/SN/RDN. [facility] with [facility] 08/18, with estimated DC 08/21. Provided pt/family with written communication of insurance process and copay coverage during stay. Family is remaining after meeting to participate in therapy session to ensure they can assist pt at home. Stressed importance of family maintaining pt's skin integrity at home. ALFRED provided resources for [facility]IRAN Khan [facility] for home modification assistance. SW noted pt is in process of being approved for Waiver services through [facility]. Discussed DC plans. Recommended HHC at DC for PT/OT/SN/LOPEZ/SW. Pt/family agreed. SW provided list of skilled HHC agencies within geographical area, INN with insurance, that include quality and resource data via [employer]Port guide. Family to provide preferences at time of DC. No DME needs identified. SW will continue to follow for DC planning. Tiffany Hernandez DELIVERY DRIVER/CUSTOMER SERVICE PURSE FRAMER
[2025-08-17] MEDS: Petrolatum 33% Tube 1 APPLIC TOPICAL (22:28)
[2025-08-18 05:26] VITALS: BMI 38.9
--- NOTE | 2025-08-18 09:10 | MDS.RN ---
Information for the MDS was obtained from review of the clinical record, interview of resident, staff, and direct observation of resident?s care.
[2025-08-18 10:08] VITALS: BP 106/56; PULSE 111; RESP 17; TEMP 36.3; O2SAT 92
[2025-08-18 10:10] VITALS: PULSE 111
[2025-08-18] MEDS: Metoprolol(XL)Succ 25 MG Tablet 125 MG PO (10:10)
[2025-08-18] MEDS: Lactobacillis Acidophilus 1 CAP PO ×2 (10:11→19:54)
[2025-08-18] MEDS: Multivitamin (Healthy Eyes) Capsule 1 CAP PO (10:11)
[2025-08-18] MEDS: Magnesium Chloride 64 MG Delay Rel.Tablet 128 MG PO (10:11)
[2025-08-18] MEDS: APIXABAN 5 MG TABLET PO ×2 (10:11→19:55)
--- NOTE | 2025-08-18 12:44 | CASEMGMT ---
Discharge Planning HH referral sent to [facility]. Amlaz Decker DC Planning Asst.
--- NOTE | 2025-08-18 14:20 | CASEMGMT ---
Docial Work SW received list of HHC preferences from pt. [facility] was [facility]. Referral made and [facility] can accept. Tiffany Hernandez MERGERS AND ACQUISITIONS ASSOCIATE HEALTH AIDE
[2025-08-18] MEDS: MELATONIN 3 MG TABLET PO (19:58)
[2025-08-18] MEDS: Senna/Docusate Sodium 1 Tablet 2 TABLET PO (19:58)
[2025-08-18] MEDS: Petrolatum 33% Tube 1 APPLIC TOPICAL (20:01)
[2025-08-19 05:02] VITALS: BMI 39.0
[2025-08-19 09:27] VITALS: BP 126/62; PULSE 83; RESP 18; TEMP 36.4; O2SAT 93
[2025-08-19 09:30] VITALS: BP 126/62; PULSE 83
[2025-08-19] MEDS: APIXABAN 5 MG TABLET PO ×2 (09:30→20:58)
[2025-08-19] MEDS: Metoprolol(XL)Succ 25 MG Tablet 125 MG PO (09:30)
[2025-08-19] MEDS: Magnesium Chloride 64 MG Delay Rel.Tablet 128 MG PO (09:30)
[2025-08-19] MEDS: Multivitamin (Healthy Eyes) Capsule 1 CAP PO (09:31)
[2025-08-19] MEDS: Lactobacillis Acidophilus 1 CAP PO ×2 (09:32→20:58)
[2025-08-19] MEDS: Senna/Docusate Sodium 1 Tablet 2 TABLET PO (09:34)
--- NOTE | 2025-08-19 13:05 | CASEMGMT ---
Social Work Insurance issued LCD 08/21, DC 08/22 ALFRED spoke with pt at bedside. SW provided NOM[facility] to pt and educated to appeal rights. Pt verbalized understanding and denied appeal. Pt is agreeable to DC. Pt to phone dtr's and coordinate transport. ALFRED informed pt that [facility] can accept. ALFRED educated [facility] agency will contact pt for SOC date date, but typically 2-3 days after DC, pending PCP signing orders. Pt confirmed no DME needs. Plan: DC home with dtr's 08/22, [facility] PT/OT/SN/JESSICA/ALFRED Hernandez CUSTOMER SOLUTIONS SUPERVISOR PRODUCTION ESTIMATOR
--- NOTE | 2025-08-19 14:22 | DS.PCM_ITS ---
Providers Date of Admission: 08/08/25 Primary Care Physician: Dr. Marciano Anaya, Consultations 08/08/25 22:29 Consult: Onc/Wound/manager order Routine Comment: Reason for Consult:: open area coccyx, abd fold Reason For Visit: SOB,CHF,UTI Diagnosis Discharge Diagnosis (1) Debility: Status: Acute Code(s): R53.81 - Other malaise (2) Shortness of breath: Status: Acute Code(s): R06.02 - Shortness of breath (3) Acute heart failure with preserved ejection fraction (HFpEF): Status: Acute Code(s): I50.31 - Acute diastolic (congestive) heart failure (4) Atrial fibrillation with RVR: Status: Acute Code(s): I48.91 - Unspecified atrial fibrillation (5) Urinary tract infection: Status: Acute Code(s): N39.0 - Urinary tract infection, site not specified (6) Essential (primary) hypertension: Status: Acute Code(s): I10 - Essential (primary) hypertension (7) Rheumatoid arthritis: Status: Acute Code(s): M06.9 - Rheumatoid arthritis, unspecified (8) Depression: Status: Acute Code(s): F32.A - Depression, unspecified (9) Hypomagnesemia: Status: Acute Code(s): E83.42 - Hypomagnesemia (10) Hypothyroidism: Status: Acute Code(s): E03.9 - Hypothyroidism, unspecified (11) GERD (gastroesophageal reflux disease): Status: Acute Code(s): K21.9 - Gastro-esophageal reflux disease without esophagitis (12) Cellulitis of both lower extremities: Status: Acute Code(s): L03.115 - Cellulitis of right lower limb; L03.116 - Cellulitis of left lower limb Plan 79 year old female with below past medical history hospitalized for shortness of breath, bilateral lower extremity edema 2/2 acute HFpEF, atrial fibrillation with rvr, uti ruled out, admitted to TCU with debility, here for rehabilitation, strengthening, prior to discharge home alone. * Debility - PT/OT. * Pain - Tylenol 1000mg q6 prn pain (1-5), Oxycodone 5mg q4 prn pain (6-10). * Bowel - senna/colace 2 tablets bid, Magnesium citrate 300mL daily prn. * Adult immunization - Administer pneumonia vaccine, covid vaccine, flu vaccine as appropriate. * DVT prophylaxis - Eliquis. * Asthma - Budesonide 0.5mg q12, Albuterol 1-2 puff q6 prn. * Atrial fibrillation - Metoprolol succinate 125mg daily, Eliquis 5mg bid. * Hyperlipidemia - Atorvastatin 40mg qhs. * Cellulitis bilateral lower extremity - Keflex 500mg q8 thru 08/14/2025. * Chronic HFpEF - Metoprolol succinate 125mg daily, Furosemide 40mg bid. * GI prophylaxis - Lactobacillus 1 capsule bid. * Hypothyroidism - Levothyroxine 100mg daily. * Hypomagnesemia - Magnesium chloride 128mg daily. * RA - MTX 20mg qweek, folic acid 1mg daily, Prednisone 10mg daily prn. * Macular Degeneration - Healthy Eyes 1 capsule daily. * Tinea Corporis - Nystatin powder topical bid, Fluconazole 100mg daily x 7 days. * GERD - Pantoprazole 40mg bid. * Insomnia - Melatonin 3mg qhs prn. The following psychotropic medication was present on admission: Elavil 10mg qhs. Psychotropic medication therapy is indicated for a diagnosis of: Insomnia. Based on my clinical evaluation, continuation of the medication is necessary at this time. Gradual dose reduction plan (select one): ____ GDR will be attempted. Will monitor patient symptoms and behaviors in response to GDR. __x__ GRD contraindicated. Reason contraindicated: stable chronic correction use. The following psychotropic medication was present on admission: Venlafaxine XR 150mg daily. Psychotropic medication therapy is indicated for a diagnosis of: Major Depression. Based on my clinical evaluation, continuation of the medication is necessary at this time. Gradual dose reduction plan (select one): ____ GDR will be attempted. Will monitor patient symptoms and behaviors in response to GDR. _x___ GRD contraindicated. Reason contraindicated: stable chronic long term care administrator use. Medications at Discharge Home Medications albuterol sulfate 90 mcg/actuation aerosol inhaler (ProAir HFA) 1 - 2 puff inhalation Q6H PRN PRN Shortness Of Breath 03/15/15 methotrexate sodium 2.5 mg tablet 20 mg PO MO Rheumatoid arthritis 03/15/15 folic acid 1 mg tablet 1 mg PO DAILY@0800 supplement #0 TABLETS 05/20/15 prednisone 10 mg tablet 10 mg PO PRN PRN arthritis flare up 07/07/19 venlafaxine 150 mg capsule,extended release 24 hr 150 mg PO DAILY depression/anxiety 07/07/19 vitamins A,C,E-jtpw-sqowdz 2,148 mcg-113 mg-45 mg-17.4 mg tablet 1 tab PO DAILY EYE HEALTH 07/07/19 magnesium oxide 400 mg PO DAILY SUPPLEMENT 09/19/20 levothyroxine 100 mcg tablet 100 mcg PO DAILY throid 07/16/23 meclizine 12.5 mg tablet 12.5 mg PO DAILY Nausea/vomiting 07/16/23 oxycodone-acetaminophen 10 mg-325 mg tablet 1 tab PO Q8H PRN pain 07/16/23 apixaban 5 mg tablet (Eliquis) 5 mg PO BID blood thinner 07/09/25 atorvastatin 40 mg tablet 40 mg PO DAILY cholesterol 07/09/25 budesonide-formoterol HFA 80 mcg-4.5 mcg/actuation aerosol inhaler (Symbicort) 1 puff inhalation Q12H breathing 07/12/25 nystatin 100,000 unit/gram topical powder 1 applic topical BID SKIN #15 grams 07/12/25 pantoprazole 40 mg tablet,delayed release (Protonix) 40 mg PO BID GI #60 tabs 07/12/25 amitriptyline 10 mg tablet 10 mg PO QHS Antidepressant 08/05/25 L.acidophil,salivari-Bifido bifidum-Strep thermoph 175 mg capsule 1 cap PO 2XD PROBIOTIC 7 days #14 caps 08/08/25 acetaminophen 325 mg tablet 650 mg (2 x 325 mg) PO Q6H PRN PRN Pain 1-5/10 Or Fever>100.7 #0 tabs 08/08/25 cephalexin 500 mg capsule 500 mg PO Q8H UTI 6 days #18 caps 08/08/25 furosemide 40 mg tablet (Lasix) 40 mg PO BID SWELLING #60 tabs 08/08/25 metoprolol succinate 25 mg tablet,extended release 24 hr 125 mg (5 x 25 mg) PO DAILY BP #0 tabs 08/08/25 Hospital Course Operations None Procedures None Summary of Care Provided Minutes Spent on Discharge: 35 Hospital Course: 79 year old female with below past medical history hospitalized for shortness of breath, bilateral lower extremity edema 2/2 acute HFpEF, atrial fibrillation with rvr, uti ruled out, admitted to TCU with debility, here for rehabilitation, strengthening, prior to discharge home alone. Discharge home with daughter 08/22/2025, [facility] PT/OT/SN/LOPEZ/SW. Physical Exam Const alert General Appearance: cooperative HEENT normocephalic Eyes PERRL and EOMs intact bilaterally Neck supple, no JVD and no carotid bruits Resp normal respiratory effort, normal air movement and clear to auscultation bilaterally Cardio regular rate and regular rhythm GI normal to inspection, nondistended, normoactive bowel sounds, non-tender and non-distended Extremity normal capillary refill General Extremity: Negative for edema Skin no rashes or lesions noted General Skin Exam: no breakdown Psych affect normal Appearance: appropriate Weight / BMI Weight Weight: 106.231 kg Body Mass Index (BMI) 39.0 ABG / Lab / Microbiology Data 08/17/25 07:43 08/17/25 07:43 Microbiology: Microbiology 08/15/25 05:28 Nasal Secretion SARS-CoV-2 Antigen (Rapid) - Final 08/13/25 06:03 Nasal Secretion SARS-CoV-2 Antigen (Rapid) - Final 08/11/25 05:40 Nasal Secretion SARS-CoV-2 Antigen (Rapid) - Final D/C Instructions Discharge Activity: Return to Normal Activity, May Shower and Use Walker Weight Bearing Status: Weight bearing as tolerated Call your doctor if you observe: Fever of 101 or Higher, Inability to urinate, Inability to have a bowel movement, Shortness of breath, Dizziness, Fainting spells, Swelling in the ankles, Chest pain and Uncontrolled pain DC O2, CPAP, BIPAP Needs Home O2 Discharge instructions: No Additional Instructions: Discharge home with daughter 08/22/2025, [facility] PT/OT/SN/LOPEZ/SW. Please Follow Up With: Dr. Osei When: As scheduled. Meaningful Use Info Meaningful Use Meaningful Use Diagnoses (Choose all that apply): None applicable Discharge Plan Admission Admit Date/Time: 08/08/25 17:58 Primary Reason for Your Visit: Debility. Attending Provider: Kd Ybarra Chi Primary Care Provider: Marciano Anaya Instructions Additional Instructions / Restrictions: Discharge home with daughter 08/22/2025, [facility] PT/OT/SN/LOPEZ/SW. Discharge Orders/Prescriptions Prescriptions: No Action oxycodone-acetaminophen 10-325 mg tablet 1 tab PO Q8H PRN (Reason: pain) Patient Comments: TAKE 1 TABLET BY MOUTH THREE TIMES DAILY NEEDED levothyroxine 100 mcg tablet 100 mcg PO DAILY meclizine 12.5 mg tablet 12.5 mg PO DAILY methotrexate sodium 2.5 MG tablet 20 mg PO MO Patient Comments: Rheumatoid Arthritis - on Mondays albuterol sulfate [ProAir HFA] 1 PUFF inhaler 1 - 2 puff inhalation Q6H PRN PRN (Reason: Shortness Of Breath) Patient Comments: As needed for Shortness of Breath folic acid 1 MG tablet 1 mg PO DAILY@0800 Qty: 0 0RF prednisone 10 MG tablet 10 mg PO PRN PRN (Reason: arthritis flare up) Rx Instructions: for arthritis flare up venlafaxine 150 MG capsule,extended release 24hr 150 mg PO DAILY vitamins A,C,R-zgvs-gxbzzs 1 EACH tablet 1 tab PO DAILY magnesium oxide 400 MG tablet 400 mg PO DAILY amitriptyline 10 mg tablet 10 mg PO QHS acetaminophen 325 mg Tablet 650 mg PO Q6H PRN PRN (Reason: Pain 1-5/10 Or Fever>100.7) Qty: 0 0RF L.acidoph,saliva-B.bif-S.therm 175 mg Capsule 1 cap PO 2XD 7 Days Qty: 14 0RF furosemide [Lasix] 40 mg tablet 40 mg PO BID Qty: 60 0RF metoprolol succinate 25 mg Tablet Extended Release 24 Hr 125 mg PO DAILY Qty: 0 0RF cephalexin 500 mg capsule 500 mg PO Q8H 6 Days Qty: 18 0RF atorvastatin 40 mg tablet 40 mg PO DAILY Eliquis 5 mg tablet 5 mg PO BID nystatin 100,000 unit/gram Powder 1 applic topical BID Qty: 15 0RF Protocol: *Topical Application Instructions APPLICATION INSTRUCTIONS: axillary and abd folds pantoprazole [Protonix] 40 mg tablet,delayed release (DR/EC) 40 mg PO BID Qty: 60 0RF budesonide-formoterol [Symbicort] 80-4.5 mcg/actuation HFA aerosol inhaler 1 puff inhalation Q12H Referrals / Follow Up: Lucia Osei MD [Med Staff - Active Staff, Cardiology] - 09/22/25 10:00 am Marciano Anaya DO [Primary Care Provider, Family Practice] Disposition Disposition (needs filled in before D/C Order can be placed): Home Health Service
--- NOTE | 2025-08-19 17:36 | CASEMGMT ---
Social Work SW completed BIMS () and PHQ-2 () for MDS assessment. Tiffany Hernandez TECHNICAL CABLE JOINTER ISOTOPE HYDROLOGIST
[2025-08-19 20:58] VITALS: PULSE 67; RESP 18; O2SAT 97
[2025-08-19] MEDS: Petrolatum 33% Tube 1 APPLIC TOPICAL (20:59)
[2025-08-20 03:42] VITALS: PULSE 105; O2SAT 98
[2025-08-20 05:40] VITALS: BMI 38.9
[2025-08-20 09:08] VITALS: BP 106/49; PULSE 100; RESP 17; TEMP 36.6; O2SAT 98
[2025-08-20] MEDS: Lactobacillis Acidophilus 1 CAP PO ×2 (09:12→20:02)
[2025-08-20] MEDS: Multivitamin (Healthy Eyes) Capsule 1 CAP PO (09:14)
[2025-08-20] MEDS: APIXABAN 5 MG TABLET PO ×2 (09:14→20:04)
[2025-08-20 09:15] VITALS: PULSE 100
[2025-08-20] MEDS: Magnesium Chloride 64 MG Delay Rel.Tablet 128 MG PO (09:15)
[2025-08-20] MEDS: Metoprolol(XL)Succ 25 MG Tablet 125 MG PO (09:15)
[2025-08-21 04:33] VITALS: BMI 38.5
[2025-08-21 08:45] VITALS: BP 104/61; PULSE 84; RESP 16; TEMP 36.7; O2SAT 94
[2025-08-21] MEDS: Lactobacillis Acidophilus 1 CAP PO ×2 (08:48→21:27)
[2025-08-21] MEDS: APIXABAN 5 MG TABLET PO ×2 (08:49→21:26)
[2025-08-21] MEDS: Multivitamin (Healthy Eyes) Capsule 1 CAP PO (08:49)
[2025-08-21] MEDS: Magnesium Chloride 64 MG Delay Rel.Tablet 128 MG PO (08:49)
[2025-08-21 08:50] VITALS: PULSE 84
[2025-08-21] MEDS: Metoprolol(XL)Succ 25 MG Tablet 125 MG PO (08:50)
[2025-08-21] MEDS: Senna/Docusate Sodium 1 Tablet 2 TABLET PO ×2 (08:51→21:25)
[2025-08-22 04:19] VITALS: BMI 39.1
[2025-08-22 06:56] VITALS: PULSE 98; RESP 16; O2SAT 96
[2025-08-22 08:36] VITALS: BP 91/60; PULSE 94; RESP 18; TEMP 36.8; O2SAT 95
[2025-08-22] MEDS: APIXABAN 5 MG TABLET PO (08:38)
[2025-08-22] MEDS: Lactobacillis Acidophilus 1 CAP PO (08:38)
[2025-08-22] MEDS: Multivitamin (Healthy Eyes) Capsule 1 CAP PO (08:38)
[2025-08-22] MEDS: Magnesium Chloride 64 MG Delay Rel.Tablet 128 MG PO (08:39)
[2025-08-22 08:41] VITALS: BP 91/60; PULSE 94
[2025-08-22 12:14] VITALS: BP 122/72; PULSE 107; RESP 17; TEMP 36.8; O2SAT 95
== END 2025-08-22 12:25 | disposition home health service (06) | DRG 291 ==
PROVIDERS: Admitting Provider Family Medicine Geriatric Medicine; PCP Family Medicine; Referring Provider Family Medicine Geriatric Medicine; Visit Provider Family Medicine Geriatric Medicine
DX: I11.0 Hypertensive heart disease with heart failure (principal); I50.33 Acute on chronic diastolic (congestive) heart failure; L03.115 Cellulitis of right lower limb; L03.116 Cellulitis of left lower limb; D64.9 Anemia, unspecified; B35.4 Tinea corporis; E03.9 Hypothyroidism, unspecified; E78.5 Hyperlipidemia, unspecified; Z79.01 Long term (current) use of anticoagulants; I48.91 Unspecified atrial fibrillation; M06.9 Rheumatoid arthritis, unspecified; F32.9 Major depressive disorder, single episode, unspecified; J45.909 Unspecified asthma, uncomplicated; K25.9 Gastric ulcer, unspecified as acute or chronic, without hemorrhage or perforation; K21.9 Gastro-esophageal reflux disease without esophagitis; E83.42 Hypomagnesemia; H35.30 Unspecified macular degeneration; F41.9 Anxiety disorder, unspecified; L24.A9 Irritant contact dermatitis due friction or contact with other specified body fluids; Z79.899 Other long term (current) drug therapy; Z79.51 Long term (current) use of inhaled steroids; Z79.890 Hormone replacement therapy; Z87.891 Personal history of nicotine dependence; G47.00 Insomnia, unspecified
CPT/HCPCS: 36415; 80048; 83880; 85025; 87811; 94640; 97110; 97162; 97166; 97530; 97535; 97802; J8610

== ENCOUNTER → 2025-09-16 | Outpatient (CLI) | payer MEDICARE, SELFPAY ==
[2025-09-16 17:58] LABS: AST(SGOT) 17 U/L (<=31); Alanine Aminotransfer ALT/SGPT 10 U/L (<=34); Albumin, Serum 2.9 g/dL (3.4-4.8); Alkaline Phosphatase 117 U/L (35-104); Anion Gap 17 (5-15); BUN 16 mg/dL (4-19); BUN/Creat Ratio 15.5 RATIO (10-20); Calcium,Total 8.5 mg/dL (7.6-11.0); Carbon Dioxide 23.4 mmol/L (21.0-32.0); Chloride 101 mmol/L (98-108); Globulin 1.8 g/dL (2.2-4.2); Glucose 53 mg/dL (70-99); Potassium 3.5 mmol/L (3.3-5.1)
[2025-09-16 18:01] LABS: Hematocrit 35.3 % (37-47); Hemoglobin 10.6 g/dL (12.0-15.0); Immature Granulocytes Count 0.030 X10^3/uL (0.0-0.0); Mean Corp Hgb Conc 30.0 g/dL (32-36); Mean Corpuscular Volume 95.9 fL (81-99); Mean Platelet Vol. 11.9 fl (6.2-12.0); NRBC Flagged by Analyzer 0 % (0-5); Platelet Count 225 K/mm3 (150-450); RBC Distribution Width CV 18.0 % (11.6-14.6); RBC Distribution Width SD 60.9 fl (35.1-43.9); Red Blood Count 3.68 M/mm3 (4.2-5.4); White Blood Count 9.5 K/mm3 (4.4-11.0)
== END | disposition home or self-care (01) ==
LOC: MTLAB 14:24
PROVIDERS: PCP Family Medicine; Referring Provider Internal Medicine Rheumatology; Visit Provider Internal Medicine Rheumatology
DX: M05.70 Rheumatoid arthritis with rheumatoid factor of unspecified site without organ or systems involvement (principal); Z79.899 Other long term (current) drug therapy; M18.12 Unilateral primary osteoarthritis of first carpometacarpal joint, left hand
CPT/HCPCS: 36415; 80053; 85025